=== PATIENT | female | born 1950 | race Caucasian/White ===

== ENCOUNTER 2019-12-01 12:37 | Outpatient (CLI) | payer MEDICARE, SELFPAY ==
[2019-12-01 13:28] LABS: Basophils Absolute Auto 0.1 K/mm3 (0.0-0.1); Basophils Percent Auto 2.1 % (0.2-1.2); Eosinophils Absolute Auto 0.2 K/mm3 (0-0.3); Eosinophils Percent Auto 5.3 % (0-4.4); Hematocrit 40.9 % (37.0-47.0); Hemoglobin 12.6 g/dL (12.0-15.0); Immature Granulocyte Absolute 0.02 K/mm3 (0.00-0.031); Immature Granulocyte Percent A 0.5 % (0-0.5); Lymphocytes Absolute Auto 1.54 K/mm3 (0.9-3.2); Lymphocytes Percent Auto 35.5 % (18.3-44.2); Mean Corpuscular HGB Conc 30.8 g/dl (32-36); Mean Corpuscular Hemoglobin 29.2 pg (26-34); Mean Corpuscular Volume 94.9 fl (80-100); Mean Platelet Volume 10.2 fl (7.4-10.4); Monocytes Absolute Auto 0.5 K/mm3 (0.1-0.6); Monocytes Percent Auto 10.6 % (2.6-8.5); Platelet Count Result 211 k/mm3 (150-375); Red Blood Count 4.31 M/mm3 (4.2-5.4); Red Cell Distribution Width 15.7 % (11.5-14.5); White Blood Count 4.3 K/mm3 (4.5-10.0)
[2019-12-01 13:40] LABS: Potassium 3.3 mmol/L (3.4-5.0)
[2019-12-01 13:49] LABS: Alanine Aminotransferase 43 U/L (4-35); Albumin Level 3.9 g/dL (3.5-5.1); Alkaline Phosphatase 88 U/L (38-126); Aspartate Amino Transferase 49 U/L (14-36); Bilirubin,Total 0.6 mg/dL (0.2-1.3); Blood Urea Nitrogen 26 mg/dL (7-17); CRP < 0.5 mg/dL (<1.0); Calcium 9.1 mg/dL (8.4-10.2); Carbon Dioxide 33 mmol/L (22-30); Chloride 100 mmol/L (98-107); Complement C3 104 mg/dL (88-165); Estimated Glomerular Filt Rate > 60; Glucose 94 mg/dL (65-105); Sodium 137 mmol/L (137-145)
[2019-12-01 14:15] LABS: Erythrocyte Sedimentation Rate 18 mm/hr (0-20)
[2019-12-02 13:09] LABS: Add Urine Microscopic? NO; Appearance Urine Clear (Clear); Bilirubin Urine Negative (Negative); Blood Urine Negative (Negative); Color Urine Straw (Yellow); Glucose Urine UA Negative (Negative); Ketones Urine Negative (Negative); Leukocyte Esterase Ur Negative LEU/UL (Negative); Nitrate Urine Negative (Negative); Protein Urine Negative (Negative); Urobilinogen Urine Negative mg/dL (<2.0)
== END 2019-12-01 12:38 | disposition home or self-care (01) ==
LOC: ANHLAB 12:41
DX: M06.09 Rheumatoid arthritis without rheumatoid factor, multiple sites (principal)
CPT/HCPCS: 36415; 80053; 81003; 85025; 85652; 86140; 86160; 86225

== ENCOUNTER 2019-12-17 09:48 | Outpatient (CLI) | payer MEDICARE, SELFPAY ==
[2019-12-17 10:49] LABS: Alanine Aminotransferase 29 U/L (4-35); Albumin Level 3.8 g/dL (3.5-5.1); Alkaline Phosphatase 99 U/L (38-126); Aspartate Amino Transferase 42 U/L (14-36); Bilirubin,Total 0.5 mg/dL (0.2-1.3); Blood Urea Nitrogen 22 mg/dL (7-17); Calcium 9.1 mg/dL (8.4-10.2); Carbon Dioxide 35 mmol/L (22-30); Chloride 102 mmol/L (98-107); Estimated Glomerular Filt Rate > 60; Glucose 98 mg/dL (65-105); Potassium 3.5 mmol/L (3.4-5.0); Sodium 138 mmol/L (137-145)
== END 2019-12-17 09:49 | disposition home or self-care (01) ==
DX: R94.5 Abnormal results of liver function studies (principal)
CPT/HCPCS: 36415; 80053

== ENCOUNTER → 2020-09-08 10:06 | Outpatient (CLI) | payer MEDICARE, SELFPAY ==
--- NOTE | ~2020-09-08 | MM_ITS ---
EXAMINATION: MM screening [facility] BI w juana HISTORY: Screening mammogram TECHNIQUE: Craniocaudal and mediolateral oblique 3-D tomosynthesis images were obtained and synthetic 2-D images were generated. CAD analysis was submitted and interpreted. COMPARISON: 10/18/2010, 09/16/2009, 08/05/2008 BREAST PARENCHYMAL COMPOSITION: There are scattered areas of fibroglandular density. FINDINGS: There is no evidence of suspicious mass, calcification, or architectural distortion to sugg est malignancy in either breast. There has been no suspicious interval change. IMPRESSION: 1. No mammographic evidence of malignancy. 2. Recommend routine screening mammography in one year. BI-RADS Category 1: Negative Reviewed, dictated and finalized at location A. DESIGNER
== END ==
DX: Z12.31 Encounter for screening mammogram for malignant neoplasm of breast (principal)
CPT/HCPCS: 77063; 77067

== ENCOUNTER 2020-11-28 14:42 | Outpatient (CLI) | payer MEDICARE, SELFPAY ==
--- NOTE | ~2020-11-28 | XR_ITS ---
EXAMINATION: XR chest 2V 11/28/2020 14:58 INDICATION: Shortness of breath PROCEDURE: 2 view chest COMPARISON: Comparison to multiple prior studies sequentially, with oldest reviewed study dated 09/13. FINDINGS: The lungs are clear. The cardiomediastinal silhouette is within normal limits. There are no pleural effusions. There is no pneumothorax suspected. IMPRESSION: 1: NO ACUTE CARDIOPULMONARY DISEASE. Reviewed, dictated and finalized at location B.
== END 2020-11-28 14:43 | disposition home or self-care (01) ==
DX: R06.02 Shortness of breath (principal); Q21.1 Atrial septal defect
CPT/HCPCS: 71046

== ENCOUNTER 2020-11-30 10:11 | Outpatient (CLI) | payer MEDICARE, SELFPAY ==
[2020-11-30 10:45] LABS: Basophils Absolute Auto 0.1 K/mm3 (0.0-0.1); Eosinophils Absolute Auto 0.1 K/mm3 (0-0.3); Eosinophils Percent Auto 2.7 % (0-4.4); Hematocrit 42.6 % (37.0-47.0); Hemoglobin 13.8 g/dL (12.0-15.0); Immature Granulocyte Absolute 0.01 K/mm3 (0.00-0.031); Immature Granulocyte Percent A 0.2 % (0-0.5); Lymphocytes Absolute Auto 1.37 K/mm3 (0.9-3.2); Lymphocytes Percent Auto 28.7 % (18.3-44.2); Mean Corpuscular HGB Conc 32.4 g/dl (32-36); Mean Corpuscular Hemoglobin 29.3 pg (26-34); Mean Corpuscular Volume 90.4 fl (80-100); Mean Platelet Volume 9.5 fl (7.4-10.4); Monocytes Absolute Auto 0.5 K/mm3 (0.1-0.6); Monocytes Percent Auto 10.7 % (2.6-8.5); Neutrophils Absolute Auto 2.7 K/mm3 (1.3-6.7); Neutrophils Percent Auto 56.7 % (45.5-73.1); Platelet Count Result 253 k/mm3 (150-375); Red Blood Count 4.71 M/mm3 (4.2-5.4); Red Cell Distribution Width 14.4 % (11.5-14.5); White Blood Count 4.8 K/mm3 (4.5-10.0)
[2020-11-30 11:09] LABS: Alanine Aminotransferase 30 U/L (4-35); Albumin Level 4.1 g/dL (3.5-5.1); Alkaline Phosphatase 98 U/L (38-126); Anion Gap 4 mmol/L (8-16); Aspartate Amino Transferase 38 U/L (14-36); Bilirubin,Total 0.4 mg/dL (0.2-1.3); Blood Urea Nitrogen 25 mg/dL (7-17); Carbon Dioxide 33 mmol/L (22-30); Chloride 103 mmol/L (98-107); Estimated Glomerular Filt Rate > 60; Glucose 113 mg/dL (65-105); Potassium 3.8 mmol/L (3.4-5.0); Sodium 140 mmol/L (137-145)
[2020-11-30 11:18] LABS: NT Pro B Type Natriuretic Pept 63 PG/ML (5-100)
== END 2020-11-30 10:12 | disposition home or self-care (01) ==
PROVIDERS: Visit Provider Internal Medicine Interventional Cardiology
DX: I48.0 Paroxysmal atrial fibrillation (principal); I25.10 Atherosclerotic heart disease of native coronary artery without angina pectoris; R06.02 Shortness of breath
CPT/HCPCS: 36415; 80053; 83880; 85025

== ENCOUNTER 2020-12-01 11:36 | Outpatient (CLI) | payer MEDICARE, SELFPAY ==
[2020-12-01 12:19] LABS: Alanine Aminotransferase 30 U/L (4-35); Alkaline Phosphatase 162 U/L (38-126); Anion Gap 3 mmol/L (8-16); Aspartate Amino Transferase 39 U/L (14-36); Bilirubin,Total 0.4 mg/dL (0.2-1.3); Blood Urea Nitrogen 34 mg/dL (7-17); Calcium 9.1 mg/dL (8.4-10.2); Carbon Dioxide 32 mmol/L (22-30); Chloride 105 mmol/L (98-107); Estimated Glomerular Filt Rate > 60; Glucose 123 mg/dL (65-105); Potassium 3.9 mmol/L (3.4-5.0); Sodium 140 mmol/L (137-145)
== END 2020-12-01 11:37 | disposition home or self-care (01) ==
LOC: ANHLAB 11:41
PROVIDERS: Visit Provider Internal Medicine Rheumatology
DX: R74.01 Elevation of levels of liver transaminase levels (principal); Z79.899 Other long term (current) drug therapy
CPT/HCPCS: 36415; 80053

== ENCOUNTER 2021-05-23 13:38 | Outpatient (CLI) | payer MEDICARE, SELFPAY ==
[2021-05-23 14:22] LABS: Add Urine Microscopic? YES; Appearance Urine Clear (Clear); Bilirubin Urine Negative (Negative); Blood Urine 1+ (Negative); Color Urine Yellow (Yellow); Glucose Urine UA Negative (Negative); Ketones Urine Negative (Negative); Leukocyte Esterase Ur Negative LEU/UL (Negative); Mucus Urine Rare /lpf; Nitrate Urine Negative (Negative); Protein Urine Negative (Negative); Specific Grav Ur 1.012 (1.001-1.035); Squamous Epithelial Cell Urine Rare /hpf (Few); Urobilinogen Urine Negative mg/dL (<2.0); WBC Urine 0-3 /hpf
== END 2021-05-23 13:39 | disposition home or self-care (01) ==
LOC: ANHLAB 13:47
PROVIDERS: Visit Provider Internal Medicine Rheumatology
DX: R82.90 Unspecified abnormal findings in urine (principal)
CPT/HCPCS: 81001

== ENCOUNTER 2021-09-11 13:01 | Outpatient (RCR) | payer MEDICARE, SELFPAY ==
[2021-09-11] MEDS: diphenhydrAMINE HCl CAP 25 MG CAPSULE PO (15:27)
[2021-09-11] MEDS: FAMOTIDINE 20 MG TABLET PO (15:27)
[2021-09-11] MEDS: ACETAMINOPHEN 325 MG TABLET 650 MG PO (15:27)
[2021-09-11 15:29] VITALS: BP 107/54; PULSE 77; RESP 18; TEMP 37.8; O2SAT 97
[2021-09-11 16:55] VITALS: BP 119/55
== END 2021-09-11 17:00 ==
LOC: AMCINF 13:01
PROVIDERS: PCP Internal Medicine; Visit Provider Internal Medicine Hematology & Oncology
DX: U07.1 COVID-19 (principal); I10 Essential (primary) hypertension; I25.10 Atherosclerotic heart disease of native coronary artery without angina pectoris; Z79.899 Other long term (current) drug therapy
CPT/HCPCS: A9270; M0247; Q0247

== ENCOUNTER → 2021-12-11 16:29 | Outpatient (CLI) | payer MEDICARE, SELFPAY ==
--- NOTE | ~2021-12-11 | MM_ITS ---
EXAMINATION: MM screening [facility] BI w juana HISTORY: Screening mammogram TECHNIQUE: Craniocaudal and mediolateral oblique 3-D tomosynthesis images were obtained and synthetic 2-D images were generated. CAD analysis was submitted and interpreted. COMPARISON: 09/08/2020, 10/18/2010 bilateral screening mammogram examinations BREAST PARENCHYMAL COMPOSITION: There are scattered areas of fibroglandular density. FINDINGS: Occasional benign calcifications. There is no evidence of suspicious mass, calcification, o r architectural distortion to suggest malignancy in either breast. There has been no suspicious inter kasia change. IMPRESSION: 1. No mammographic evidence of malignancy. 2. Recommend routine screening mammography in one year. BI-RADS Category 1: Negative Reviewed, dictated and finalized at location A.
== END ==
DX: Z12.31 Encounter for screening mammogram for malignant neoplasm of breast (principal)
CPT/HCPCS: 77063; 77067

== ENCOUNTER 2022-07-17 11:38 | Outpatient (CLI) | payer MEDICARE, SELFPAY ==
[2022-07-17 12:16] LABS: Alanine Aminotransferase 38 U/L (6-35); Albumin Level 4.2 g/dL (3.5-5.1); Alkaline Phosphatase 73 U/L (38-126); Anion Gap 11 mmol/L (8-16); Aspartate Amino Transferase 59 U/L (14-36); Bilirubin,Total 0.5 mg/dL (0.2-1.3); Blood Urea Nitrogen 15 mg/dL (7-17); Calcium 8.9 mg/dL (8.4-10.2); Carbon Dioxide 30 mmol/L (22-30); Chloride 100 mmol/L (98-107); Estimated Glomerular Filt Rate > 60; Glucose 108 mg/dL (65-110); Sodium 141 mmol/L (137-145)
== END 2022-07-17 11:39 | disposition home or self-care (01) ==
PROVIDERS: Visit Provider Nurse Practitioner
DX: R74.01 Elevation of levels of liver transaminase levels (principal)
CPT/HCPCS: 36415; 80053

== ENCOUNTER 2022-09-11 13:41 | Outpatient (CLI) | payer MEDICARE, SELFPAY | END 2022-09-11 13:42 | disposition home or self-care (01) | LOC: ANHLAB 13:46 | DX: R20.0 Anesthesia of skin (principal); R20.2 Paresthesia of skin | CPT/HCPCS: 86335 ==

== ENCOUNTER 2022-10-17 08:23 | Outpatient (CLI) | payer MEDICARE, SELFPAY ==
[2022-10-17 09:18] LABS: Anion Gap 5 mmol/L (8-16); Blood Urea Nitrogen 17 mg/dL (7-17); Calcium 8.4 mg/dL (8.4-10.2); Carbon Dioxide 30 mmol/L (22-30); Chloride 104 mmol/L (98-107); Estimated Glomerular Filt Rate > 60; Glucose 98 mg/dL (65-110); Sodium 139 mmol/L (137-145)
[2022-10-17 09:24] LABS: NT Pro B Type Natriuretic Pept 100 pg/mL (19.9-100)
== END 2022-10-17 08:24 | disposition home or self-care (01) ==
LOC: ANHLAB 08:26
PROVIDERS: PCP Student in an Organized Health Care Education/Training Program; Visit Provider Internal Medicine Interventional Cardiology
DX: I25.10 Atherosclerotic heart disease of native coronary artery without angina pectoris (principal); R06.02 Shortness of breath; R60.9 Edema, unspecified
CPT/HCPCS: 36415; 80048; 83880

== ENCOUNTER → 2022-12-20 13:51 | Outpatient (CLI) | payer MEDICARE, SELFPAY ==
--- NOTE | ~2022-12-20 | MM_ITS ---
EXAMINATION: MM screening [facility] BI w juana HISTORY: Screening mammogram TECHNIQUE: Craniocaudal and mediolateral oblique 3-D tomosynthesis images were obtained and synthetic 2-D images were generated. CAD analysis was submitted and interpreted. COMPARISON: 12/11/2021, 09/08/2020, 10/18/2010 BREAST PARENCHYMAL COMPOSITION: There are scattered areas of fibroglandular density. FINDINGS: No suspicious mass, calcification, or architectural distortion are identified in either erlinda ast to suggest malignancy. There has been no suspicious interval change. IMPRESSION: 1. No mammographic evidence of malignancy. 2. Recommend routine screening mammography in one year. BI-RADS Category 1: Negative Reviewed, dictated and finalized at location A.
== END ==
PROVIDERS: PCP Family Medicine; Visit Provider Family Medicine
DX: Z12.31 Encounter for screening mammogram for malignant neoplasm of breast (principal)
CPT/HCPCS: 77063; 77067

== ENCOUNTER 2023-01-30 09:37 | Outpatient (CLI) | payer MEDICARE, SELFPAY ==
[2023-01-30 10:25] LABS: Basophils Absolute Auto 0.1 K/mm3 (0.0-0.1); Basophils Percent Auto 1.2 % (0.2-1.2); Eosinophils Absolute Auto 0.5 K/mm3 (0-0.3); Eosinophils Percent Auto 9.8 % (0-4.4); Hematocrit 42.3 % (37.0-47.0); Hemoglobin 13.1 g/dL (12.0-15.0); Lymphocytes Absolute Auto 1.44 K/mm3 (0.9-3.2); Lymphocytes Percent Auto 29.3 % (18.3-44.2); Mean Corpuscular Hemoglobin 28.3 pg (26-34); Mean Corpuscular Volume 91.4 fl (80-100); Mean Platelet Volume 9.7 fl (7.4-10.4); Monocytes Absolute Auto 0.6 K/mm3 (0.1-0.6); Monocytes Percent Auto 11.6 % (2.6-8.5); Neutrophils Absolute Auto 2.4 K/mm3 (1.3-6.7); Neutrophils Percent Auto 48.1 % (45.5-73.1); Platelet Count Result 232 k/mm3 (150-375); Red Blood Count 4.63 M/mm3 (4.2-5.4); Red Cell Distribution Width 15.7 % (11.5-14.5); White Blood Count 4.9 K/mm3 (4.5-10.0)
[2023-01-30 10:32] LABS: Appearance Urine Clear (Clear); Bacteria Urine None Seen /hpf; Bilirubin Urine Negative (Negative); Blood Urine Negative (Negative); Color Urine Yellow (Yellow); Glucose Urine UA Negative (Negative); Ketones Urine Negative (Negative); Leukocyte Esterase Ur Trace LEU/UL (Negative); Nitrate Urine Negative (Negative); Non Pathogenic Casts 0-2; Protein Urine Negative (Negative); RBC Urine 0-2 /hpf (0-2); Specific Grav Ur 1.012 (1.001-1.035); Squamous Epithelial Cell Urine None seen /hpf (Few); Urobilinogen Urine 0.2 mg/dL (<2.0); WBC Urine 0-5 /hpf; pH Urine 6.5 (5.0-9.0)
[2023-01-30 10:41] LABS: Alanine Aminotransferase 37 U/L (6-35); Albumin Level 4.2 g/dL (3.5-5.1); Alkaline Phosphatase 102 U/L (38-126); Anion Gap 2 mmol/L (8-16); Aspartate Amino Transferase 45 U/L (14-36); Bilirubin,Total 0.8 mg/dL (0.2-1.3); Blood Urea Nitrogen 16 mg/dL (7-17); CRP < 0.5 mg/dL (<1.0); Calcium 8.8 mg/dL (8.4-10.2); Carbon Dioxide 35 mmol/L (22-30); Chloride 102 mmol/L (98-107); Estimated Glomerular Filt Rate > 60; Glucose 89 mg/dL (65-110); Potassium 4.3 mmol/L (3.4-5.0); Sodium 139 mmol/L (137-145)
[2023-01-30 10:48] LABS: Complement C3 82 mg/dL (88-165)
[2023-01-30 10:51] LABS: Add Urine Microscopic? YES
[2023-01-30 11:04] LABS: Erythrocyte Sedimentation Rate 14 mm/hr (0-20)
== END 2023-01-30 09:38 | disposition home or self-care (01) ==
PROVIDERS: PCP Family Medicine; Referring Provider Family Medicine; Visit Provider Nurse Practitioner
DX: M32.9 Systemic lupus erythematosus, unspecified (principal)
CPT/HCPCS: 36415; 80053; 81001; 85025; 85652; 86140; 86160; 86225

== ENCOUNTER 2023-04-29 10:35 | Outpatient (CLI) | payer MEDICARE, SELFPAY ==
[2023-04-29 12:10] LABS: Basophils Absolute Auto 0.1 K/mm3 (0.0-0.1); Basophils Percent Auto 1.1 % (0.2-1.2); Eosinophils Absolute Auto 0.3 K/mm3 (0-0.3); Eosinophils Percent Auto 5.4 % (0-4.4); Hematocrit 43.9 % (37.0-47.0); Hemoglobin 13.8 g/dL (12.0-15.0); Immature Granulocyte Absolute 0.01 K/mm3 (0.00-0.031); Immature Granulocyte Percent A 0.2 % (0-0.5); Lymphocytes Absolute Auto 1.93 K/mm3 (0.9-3.2); Lymphocytes Percent Auto 30.5 % (18.3-44.2); Mean Corpuscular HGB Conc 31.4 g/dl (32-36); Mean Corpuscular Hemoglobin 28.5 pg (26-34); Mean Corpuscular Volume 90.7 fl (80-100); Mean Platelet Volume 9.6 fl (7.4-10.4); Monocytes Absolute Auto 0.9 K/mm3 (0.1-0.6); Monocytes Percent Auto 14.6 % (2.6-8.5); Neutrophils Absolute Auto 3.1 K/mm3 (1.3-6.7); Neutrophils Percent Auto 48.2 % (45.5-73.1); Platelet Count Result 234 k/mm3 (150-375); Red Blood Count 4.84 M/mm3 (4.2-5.4); Red Cell Distribution Width 15.8 % (11.5-14.5); White Blood Count 6.3 K/mm3 (4.5-10.0)
[2023-04-29 12:31] LABS: Complement C3 91 mg/dL (88-165)
[2023-04-29 12:37] LABS: Alanine Aminotransferase 33 U/L (6-35); Albumin Level 4.3 g/dL (3.5-5.1); Alkaline Phosphatase 119 U/L (38-126); Anion Gap 3 mmol/L (8-16); Aspartate Amino Transferase 39 U/L (14-36); Bilirubin,Total 0.7 mg/dL (0.2-1.3); Blood Urea Nitrogen 25 mg/dL (7-17); CRP < 0.5 mg/dL (<1.0); Calcium 9.1 mg/dL (8.4-10.2); Carbon Dioxide 32 mmol/L (22-30); Chloride 101 mmol/L (98-107); Estimated Glomerular Filt Rate > 60; Glucose 93 mg/dL (65-110); Potassium 4.1 mmol/L (3.4-5.0); Sodium 136 mmol/L (137-145)
[2023-04-29 12:46] LABS: Erythrocyte Sedimentation Rate 13 mm/hr (0-20)
== END 2023-04-29 10:36 | disposition home or self-care (01) ==
PROVIDERS: PCP Family Medicine; Visit Provider Nurse Practitioner
DX: M32.9 Systemic lupus erythematosus, unspecified (principal)
CPT/HCPCS: 36415; 80053; 85025; 85652; 86140; 86160; 86225

== ENCOUNTER 2023-05-17 09:29 | Outpatient (CLI) | payer MEDICARE, SELFPAY ==
[2023-05-17 10:14] LABS: Alanine Aminotransferase 27 U/L (6-35); Alkaline Phosphatase 100 U/L (38-126); Anion Gap 4 mmol/L (8-16); Aspartate Amino Transferase 37 U/L (14-36); Bilirubin,Total 0.7 mg/dL (0.2-1.3); Blood Urea Nitrogen 26 mg/dL (7-17); Calcium 8.9 mg/dL (8.4-10.2); Carbon Dioxide 33 mmol/L (22-30); Chloride 101 mmol/L (98-107); Estimated Glomerular Filt Rate > 60; Glucose 104 mg/dL (65-110); Potassium 3.6 mmol/L (3.4-5.0); Sodium 138 mmol/L (137-145)
== END 2023-05-17 09:30 | disposition home or self-care (01) ==
PROVIDERS: PCP Family Medicine; Visit Provider Nurse Practitioner
DX: R74.8 Abnormal levels of other serum enzymes (principal)
CPT/HCPCS: 36415; 80053

== ENCOUNTER 2023-07-04 15:20 | Outpatient (CLI) | payer MEDICARE, SELFPAY ==
[2023-07-04 15:58] LABS: Anion Gap 5 mmol/L (8-16); Blood Urea Nitrogen 28 mg/dL (7-17); Calcium 8.9 mg/dL (8.4-10.2); Carbon Dioxide 28 mmol/L (22-30); Chloride 102 mmol/L (98-107); Estimated Glomerular Filt Rate > 60; Glucose 96 mg/dL (65-110); Potassium 3.7 mmol/L (3.4-5.0); Sodium 135 mmol/L (137-145)
== END 2023-07-04 15:21 | disposition home or self-care (01) ==
PROVIDERS: PCP Family Medicine; Visit Provider Internal Medicine Interventional Cardiology
DX: I48.0 Paroxysmal atrial fibrillation (principal)
CPT/HCPCS: 36415; 80048

== ENCOUNTER 2023-08-02 08:06 | Outpatient (CLI) | payer MEDICARE, SELFPAY ==
[2023-08-02 09:25] LABS: Basophils Absolute Auto 0.1 K/mm3 (0.0-0.1); Eosinophils Absolute Auto 0.3 K/mm3 (0-0.3); Hematocrit 44.9 % (37.0-47.0); Immature Granulocyte Absolute 0.01 K/mm3 (0.00-0.031); Immature Granulocyte Percent A 0.2 % (0-0.5); Lymphocytes Absolute Auto 1.58 K/mm3 (0.9-3.2); Lymphocytes Percent Auto 30.7 % (18.3-44.2); Mean Corpuscular HGB Conc 31.2 g/dl (32-36); Mean Corpuscular Hemoglobin 28.7 pg (26-34); Mean Corpuscular Volume 92.2 fl (80-100); Mean Platelet Volume 9.7 fl (7.4-10.4); Monocytes Absolute Auto 0.6 K/mm3 (0.1-0.6); Monocytes Percent Auto 11.7 % (2.6-8.5); Neutrophils Absolute Auto 2.6 K/mm3 (1.3-6.7); Neutrophils Percent Auto 50.4 % (45.5-73.1); Platelet Count Result 224 k/mm3 (150-375); Red Blood Count 4.87 M/mm3 (4.2-5.4); White Blood Count 5.1 K/mm3 (4.5-10.0)
[2023-08-02 09:37] LABS: Complement C3 85 mg/dL (88-165)
[2023-08-02 09:41] LABS: Alanine Aminotransferase 39 U/L (6-35); Albumin Level 4.1 g/dL (3.5-5.1); Alkaline Phosphatase 98 U/L (38-126); Anion Gap 10 mmol/L (8-16); Aspartate Amino Transferase 54 U/L (14-36); Bilirubin,Total 0.9 mg/dL (0.2-1.3); Blood Urea Nitrogen 16 mg/dL (7-17); CRP < 0.5 mg/dL (<1.0); Carbon Dioxide 27 mmol/L (22-30); Chloride 104 mmol/L (98-107); Estimated Glomerular Filt Rate > 60; Glucose 93 mg/dL (65-110); Potassium 4.3 mmol/L (3.4-5.0); Sodium 141 mmol/L (137-145)
[2023-08-02 10:33] LABS: Erythrocyte Sedimentation Rate 15 mm/hr (0-20)
== END 2023-08-02 08:07 | disposition home or self-care (01) ==
PROVIDERS: PCP Family Medicine; Visit Provider Nurse Practitioner
DX: M32.9 Systemic lupus erythematosus, unspecified (principal)
CPT/HCPCS: 36415; 80053; 85025; 85652; 86140; 86160; 86225

== ENCOUNTER 2023-08-16 08:00 | Outpatient (CLI) | payer MEDICARE, SELFPAY ==
[2023-08-16 09:03] LABS: Alanine Aminotransferase 33 U/L (6-35); Albumin Level 4.3 g/dL (3.5-5.1); Alkaline Phosphatase 93 U/L (38-126); Anion Gap 4 mmol/L (8-16); Aspartate Amino Transferase 38 U/L (14-36); Bilirubin,Total 0.7 mg/dL (0.2-1.3); Blood Urea Nitrogen 18 mg/dL (7-17); Calcium 9.2 mg/dL (8.4-10.2); Carbon Dioxide 33 mmol/L (22-30); Chloride 103 mmol/L (98-107); Estimated Glomerular Filt Rate > 60; Glucose 97 mg/dL (65-110); Potassium 4.3 mmol/L (3.4-5.0); Sodium 140 mmol/L (137-145)
== END 2023-08-16 08:01 | disposition home or self-care (01) ==
PROVIDERS: PCP Family Medicine; Visit Provider Nurse Practitioner
DX: I48.0 Paroxysmal atrial fibrillation (principal); R74.01 Elevation of levels of liver transaminase levels
CPT/HCPCS: 36415; 80053

== ENCOUNTER 2023-10-29 14:58 | Outpatient (CLI) | payer MEDICARE, SELFPAY ==
[2023-10-29 15:39] LABS: Basophils Percent Auto 0.6 % (0.2-1.2); Eosinophils Absolute Auto 0.3 K/mm3 (0-0.3); Eosinophils Percent Auto 4.8 % (0-4.4); Hematocrit 43.1 % (37.0-47.0); Hemoglobin 13.1 g/dL (12.0-15.0); Immature Granulocyte Absolute 0.01 K/mm3 (0.00-0.031); Immature Granulocyte Percent A 0.2 % (0-0.5); Lymphocytes Absolute Auto 1.75 K/mm3 (0.9-3.2); Lymphocytes Percent Auto 27.9 % (18.3-44.2); Mean Corpuscular HGB Conc 30.4 g/dl (32-36); Mean Corpuscular Hemoglobin 28.2 pg (26-34); Mean Corpuscular Volume 92.9 fl (80-100); Mean Platelet Volume 9.9 fl (7.4-10.4); Monocytes Absolute Auto 0.8 K/mm3 (0.1-0.6); Monocytes Percent Auto 12.9 % (2.6-8.5); Neutrophils Absolute Auto 3.4 K/mm3 (1.3-6.7); Neutrophils Percent Auto 53.6 % (45.5-73.1); Platelet Count Result 239 k/mm3 (150-375); Red Blood Count 4.64 M/mm3 (4.2-5.4); Red Cell Distribution Width 15.6 % (11.5-14.5); White Blood Count 6.3 K/mm3 (4.5-10.0)
[2023-10-29 15:48] LABS: Appearance Urine Clear (Clear); Bacteria Urine None Seen /hpf; Bilirubin Urine Negative (Negative); Color Urine Yellow (Yellow); Glucose Urine UA 3+ mg/dL (Negative); Ketones Urine Negative (Negative); Leukocyte Esterase Ur Negative LEU/UL (Negative); Nitrate Urine Negative (Negative); Non Pathogenic Casts 0-2; Protein Urine Negative (Negative); Specific Grav Ur 1.035 (1.001-1.035); Squamous Epithelial Cell Urine None seen /hpf (Few); WBC Urine 0-5 /hpf
[2023-10-29 15:52] LABS: Add Urine Microscopic? YES
[2023-10-29 15:53] LABS: Alanine Aminotransferase 33 U/L (6-35); Albumin Level 3.9 g/dL (3.5-5.1); Alkaline Phosphatase 104 U/L (38-126); Anion Gap 4 mmol/L (8-16); Aspartate Amino Transferase 41 U/L (14-36); Bilirubin,Total 0.5 mg/dL (0.2-1.3); Blood Urea Nitrogen 17 mg/dL (7-17); CRP < 0.5 mg/dL (<1.0); Carbon Dioxide 29 mmol/L (22-30); Chloride 105 mmol/L (98-107); Estimated Glomerular Filt Rate > 60; Glucose 106 mg/dL (65-110); Potassium 4.2 mmol/L (3.4-5.0); Sodium 138 mmol/L (137-145)
[2023-10-29 15:59] LABS: Complement C3 88 mg/dL (88-165)
[2023-10-29 16:36] LABS: Erythrocyte Sedimentation Rate 14 mm/hr (0-20)
== END 2023-10-29 14:59 | disposition home or self-care (01) ==
LOC: ANHLAB 15:08
PROVIDERS: PCP Family Medicine; Visit Provider Nurse Practitioner
DX: M32.9 Systemic lupus erythematosus, unspecified (principal)
CPT/HCPCS: 36415; 80053; 81001; 85025; 85652; 86140; 86160

== ENCOUNTER 2023-10-30 07:41 | Outpatient (CLI) | payer MEDICARE, SELFPAY | END 2023-10-30 07:42 | disposition home or self-care (01) | LOC: ANHLAB 07:49 | PROVIDERS: PCP Family Medicine; Visit Provider Nurse Practitioner | DX: M32.9 Systemic lupus erythematosus, unspecified (principal) | CPT/HCPCS: 36415; 86225 ==

== ENCOUNTER 2023-11-18 12:06 | Outpatient (CLI) | payer MEDICARE, SELFPAY ==
[2023-11-18 14:13] LABS: Alanine Aminotransferase 34 U/L (6-35); Albumin Level 4.3 g/dL (3.5-5.1); Alkaline Phosphatase 100 U/L (38-126); Aspartate Amino Transferase 45 U/L (14-36); Bilirubin,Total 0.7 mg/dL (0.2-1.3)
== END 2023-11-18 12:07 | disposition home or self-care (01) ==
LOC: ANHLAB 12:08
PROVIDERS: PCP Family Medicine; Visit Provider Internal Medicine Interventional Cardiology
DX: E78.49 Other hyperlipidemia (principal)
CPT/HCPCS: 36415; 80076

== ENCOUNTER 2023-12-16 09:21 | Outpatient (CLI) | payer MEDICARE, SELFPAY ==
[2023-12-23 14:58] LABS: GGT 10 U/L
== END 2023-12-16 09:22 | disposition home or self-care (01) ==
LOC: ANHLAB 09:23
PROVIDERS: PCP Family Medicine; Visit Provider Internal Medicine Interventional Cardiology
DX: R74.01 Elevation of levels of liver transaminase levels (principal); R79.89 Other specified abnormal findings of blood chemistry
CPT/HCPCS: 36415; 82977

== ENCOUNTER 2024-02-11 14:21 | Outpatient (CLI) | payer MEDICARE, SELFPAY ==
[2024-02-11 15:06] LABS: Basophils Absolute Auto 0.1 K/mm3 (0.0-0.1); Basophils Percent Auto 0.9 % (0.2-1.2); Eosinophils Absolute Auto 0.4 K/mm3 (0-0.3); Eosinophils Percent Auto 5.9 % (0-4.4); Hematocrit 44.1 % (37.0-47.0); Hemoglobin 13.6 g/dL (12.0-15.0); Immature Granulocyte Absolute 0.01 K/mm3 (0.00-0.031); Immature Granulocyte Percent A 0.2 % (0-0.5); Lymphocytes Absolute Auto 2.02 K/mm3 (0.9-3.2); Lymphocytes Percent Auto 30.6 % (18.3-44.2); Mean Corpuscular HGB Conc 30.8 g/dl (32-36); Mean Corpuscular Volume 90.9 fl (80-100); Mean Platelet Volume 9.4 fl (7.4-10.4); Monocytes Absolute Auto 0.8 K/mm3 (0.1-0.6); Neutrophils Absolute Auto 3.3 K/mm3 (1.3-6.7); Neutrophils Percent Auto 50.4 % (45.5-73.1); Platelet Count Result 255 k/mm3 (150-375); Red Blood Count 4.85 M/mm3 (4.2-5.4); Red Cell Distribution Width 17.9 % (11.5-14.5); White Blood Count 6.6 K/mm3 (4.5-10.0)
[2024-02-11 15:25] LABS: Alanine Aminotransferase 26 U/L (6-35); Albumin Level 4.3 g/dL (3.5-5.1); Alkaline Phosphatase 115 U/L (38-126); Anion Gap 7 mmol/L (4-12); Aspartate Amino Transferase 35 U/L (14-36); Bilirubin,Total 0.7 mg/dL (0.2-1.3); Blood Urea Nitrogen 26 mg/dL (7-17); CRP < 0.5 mg/dL (<1.0); Calcium 8.9 mg/dL (8.4-10.2); Carbon Dioxide 28 mmol/L (22-30); Chloride 104 mmol/L (98-107); Estimated Glomerular Filt Rate > 60; Glucose 91 mg/dL (65-110); Potassium 3.8 mmol/L (3.4-5.0); Sodium 139 mmol/L (137-145)
[2024-02-11 15:31] LABS: Complement C3 97 mg/dL (88-165)
[2024-02-11 15:45] LABS: Erythrocyte Sedimentation Rate 12 mm/hr (0-20)
[2024-02-11 17:20] LABS: Appearance Urine Clear (Clear); Bacteria Urine None Seen /hpf; Bilirubin Urine Negative (Negative); Blood Urine Trace (Negative); Color Urine Yellow (Yellow); Glucose Urine UA 3+ mg/dL (Negative); Ketones Urine Negative (Negative); Leukocyte Esterase Ur Trace LEU/UL (Negative); Nitrate Urine Negative (Negative); Non Pathogenic Casts 0-2; Protein Urine Negative (Negative); RBC Urine 0-2 /hpf (0-2); Specific Grav Ur 1.019 (1.001-1.035); Squamous Epithelial Cell Urine None Seen /hpf (Few); Urobilinogen Urine 0.2 mg/dL (<2.0); WBC Urine 0-5 /hpf (0-3)
[2024-02-11 17:28] LABS: Add Urine Microscopic? YES
== END 2024-02-11 14:22 | disposition home or self-care (01) ==
PROVIDERS: PCP Family Medicine; Visit Provider Nurse Practitioner
DX: M32.9 Systemic lupus erythematosus, unspecified (principal); R30.0 Dysuria
CPT/HCPCS: 36415; 80053; 81001; 85025; 85652; 86140; 86160; 86225

== ENCOUNTER 2024-05-18 12:47 | Outpatient (CLI) | payer MEDICARE, SELFPAY ==
[2024-05-18 14:02] LABS: Basophils Percent Auto 0.7 % (0.2-1.2); Eosinophils Absolute Auto 0.2 K/mm3 (0-0.3); Eosinophils Percent Auto 3.4 % (0-4.4); Hematocrit 42.4 % (37.0-47.0); Hemoglobin 13.4 g/dL (12.0-15.0); Immature Granulocyte Absolute 0.01 K/mm3 (0.00-0.031); Immature Granulocyte Percent A 0.2 % (0-0.5); Lymphocytes Absolute Auto 1.86 K/mm3 (0.9-3.2); Mean Corpuscular HGB Conc 31.6 g/dl (32-36); Mean Corpuscular Hemoglobin 28.7 pg (26-34); Mean Corpuscular Volume 90.8 fl (80-100); Mean Platelet Volume 9.7 fl (7.4-10.4); Monocytes Absolute Auto 0.9 K/mm3 (0.1-0.6); Monocytes Percent Auto 15.6 % (2.6-8.5); Neutrophils Absolute Auto 2.8 K/mm3 (1.3-6.7); Neutrophils Percent Auto 48.1 % (45.5-73.1); Platelet Count Result 217 k/mm3 (150-375); Red Blood Count 4.67 M/mm3 (4.2-5.4); Red Cell Distribution Width 17.2 % (11.5-14.5); White Blood Count 5.8 K/mm3 (4.5-10.0)
[2024-05-18 14:23] LABS: Chloride 97 mmol/L (98-107)
[2024-05-18 14:26] LABS: Potassium 3.8 mmol/L (3.4-5.0)
[2024-05-18 14:30] LABS: Complement C3 78 mg/dL (88-165)
[2024-05-18 14:38] LABS: Alanine Aminotransferase 27 U/L (6-35); Albumin Level 3.9 g/dL (3.5-5.1); Alkaline Phosphatase 88 U/L (38-126); Anion Gap 12 mmol/L (4-12); Aspartate Amino Transferase 37 U/L (14-36); Bilirubin,Total 0.7 mg/dL (0.2-1.3); Blood Urea Nitrogen 21 mg/dL (7-17); CRP < 0.5 mg/dL (<1.0); Calcium 8.8 mg/dL (8.4-10.2); Carbon Dioxide 26 mmol/L (22-30); Estimated Glomerular Filt Rate > 60; Glucose 100 mg/dL (65-110); Sodium 135 mmol/L (137-145)
[2024-05-18 14:42] LABS: Erythrocyte Sedimentation Rate 12 mm/hr (0-20)
== END 2024-05-18 12:48 | disposition home or self-care (01) ==
LOC: ANHLAB 12:50
PROVIDERS: PCP Family Medicine; Visit Provider Nurse Practitioner
DX: M32.9 Systemic lupus erythematosus, unspecified (principal)
CPT/HCPCS: 36415; 80053; 85025; 85652; 86140; 86160; 86225

== ENCOUNTER 2024-08-22 08:43 | Outpatient (CLI) | payer MEDICARE, SELFPAY ==
[2024-08-22 09:48] LABS: Basophils Percent Auto 0.8 % (0.2-1.2); Eosinophils Absolute Auto 0.2 K/mm3 (0-0.3); Eosinophils Percent Auto 3.6 % (0-4.4); Hematocrit 46.5 % (37.0-47.0); Hemoglobin 14.7 g/dL (12.0-15.0); Immature Granulocyte Absolute 0.01 K/mm3 (0.00-0.031); Immature Granulocyte Percent A 0.2 % (0-0.5); Lymphocytes Absolute Auto 1.28 K/mm3 (0.9-3.2); Lymphocytes Percent Auto 25.5 % (18.3-44.2); Mean Corpuscular HGB Conc 31.6 g/dl (32-36); Mean Corpuscular Hemoglobin 28.9 pg (26-34); Mean Corpuscular Volume 91.4 fl (80-100); Monocytes Absolute Auto 0.5 K/mm3 (0.1-0.6); Monocytes Percent Auto 9.4 % (2.6-8.5); Neutrophils Percent Auto 60.5 % (45.5-73.1); Platelet Count Result 223 k/mm3 (150-375); Red Blood Count 5.09 M/mm3 (4.2-5.4); Red Cell Distribution Width 16.1 % (11.5-14.5)
[2024-08-22 10:15] LABS: Alanine Aminotransferase 32 U/L (6-35); Albumin Level 4.3 g/dL (3.5-5.1); Alkaline Phosphatase 91 U/L (38-126); Anion Gap 6 mmol/L (4-12); Aspartate Amino Transferase 42 U/L (14-36); Bilirubin,Total 0.8 mg/dL (0.2-1.3); Blood Urea Nitrogen 19 mg/dL (7-17); CRP < 0.5 mg/dL (<1.0); Calcium 9.4 mg/dL (8.4-10.2); Carbon Dioxide 31 mmol/L (22-30); Chloride 105 mmol/L (98-107); Complement C3 81 mg/dL (88-165); Estimated Glomerular Filt Rate > 60; Glucose 102 mg/dL (65-110); Sodium 142 mmol/L (137-145)
[2024-08-22 10:21] LABS: Erythrocyte Sedimentation Rate 7 mm/hr (0-20)
[2024-08-22 10:42] LABS: Add Urine Microscopic? NO; Appearance Urine Clear (Clear); Bilirubin Urine Negative (Negative); Blood Urine Negative (Negative); Color Urine Yellow (Yellow); Glucose Urine UA 3+ mg/dL (Negative); Ketones Urine Negative (Negative); Leukocyte Esterase Ur Negative LEU/UL (Negative); Nitrate Urine Negative (Negative); Protein Urine Negative (Negative); Specific Grav Ur 1.018 (1.001-1.035); Urobilinogen Urine 0.2 mg/dL (<2.0); pH Urine 5.5 (5.0-9.0)
--- OUTSIDE RECORDS SUMMARY | 2024-08-29 09:50 | XMS_ITS | Encounter Summary ---
Author Organization [facility] Address [address] [place] [address]. [place] [address] [place] [address] Care Team Providers Care Warehouse Shipping Supervisor Name Role Phone Gladis Song MD Unavailable Emily Jordan MD Primary Care Provider + Encounter Details Date Type Department Care Team (Late st Contact Info) Description 06/25/2024 Orders Only [facility] Medical Group Family Medicine - [place] [address] [place] [address] [phone] Emily Jordan MD [address] [place] [id number] Social History Tobacco Use Types Packs/Day Years Used Date Smoking Tobacco: Never Passive Smoke Exposure: Never Smokeless Tobacco: Never Alcohol Use Standard Drinks/Week Comments Not Currently 0 (1 standard drink = 0.6 oz pur e alcohol) occassionally PHQ-2 Answer Date Recorded Patient Health Questionnaire-2 Score 1 06/09/2024 Comments No Sex and Gender Information Value Date Recorded Sex Assigned at Not on file Legal Sex Female 10:22 PM FEEDER WORKER POWER UNIT OPERATOR Gender Identity Female 09/12/2021 9:51 AM FEEDER WORKER POWER UNIT OPERATOR Sexual Orientation Straight 09/12/2021 9: 51 AM FEEDER WORKER POWER UNIT OPERATOR documented as of this encounter Plan of Treatment Upcoming Encounters Date Type Department Care Team (Late st Contact Info) Description 10/02/2024 11:40 AM FEEDER WORKER POWER UNIT OPERATOR Office Visit [facility] Medical [facility] Multispecialty Care - [facility] [address] [place] [address] Johnnie Lr MD [address] [place] [address] 01/04/2025 9:50 AM CDT Office Visit [facility] Family Medicine - [place] [address] [place], [place] [id number] Emily Jordan MD [address] [place], [place] [address] Scheduled Orders Name Type Priority Associated Diagnoses Orde r Schedule POTASSIUM, SERUM Lab Routine Essential hypertension Expected: 06/25/2024, Expires: 06/25/2025 documented as of this encounter Visit Diagnoses Diagnosis Essential hypertension- Primary Unspecified essential hypertension documented in this encounter Additional Health Concerns Assessment Noted Time PHQ-9 Depression Total Score: 1 04/03/20 23 3:30 PM CDT documented as of this encounter Care Teams Warehouse Shipping Supervisor Relationship Specialty Start Date End Date Emily Jordan MD [address] [place], [place] [address] PCP - General FAMILY PRACTICE 06/09/24 [place] [address] [place] [address] RHEUMATOLOGY 09/27/20 documented as of this encounter
--- OUTSIDE RECORDS SUMMARY | 2024-08-29 09:50 | XMS_ITS | Encounter Summary ---
Author Organization [facility] Address [address] [place] [address]. [place], [place] [id number] [place] [address] Care Team Providers Care Spinner Hand Name Role Phone Gladis Song MD Unavailable Thi Lugo MD Primary Care Provider [phone] Encounter Details Date Type Department Care Team (Latest Contact Info) Description 06/01/2024 12:43 PM CDT - 06/01/2024 11:59 PM T Hospital Encounter [facility] [address] [place], [place] [id number] [place] [address] [address] [place] [address] [facility] [address] [place], [place] [id number] Discharge Disposition: Home or Self Care (Routine Discharge) Social History Tobacco Use Types Packs/Day Years Used Date Smoking Tobacco: Never Passive Smoke Exposure: Never Smokeless Tobacco: Never Alcohol Use Standard Drinks/Week Comments Yes 0 (1 standard drink = 0.6 oz pur e alcohol) occassionally PHQ-2 Answer Date Recorded Patient Health Questionnaire-2 Score 0 02/24/2024 Comments No Sex and Gender Information Value Date Recorded Sex Assigned at Not on file Legal Sex Female 10:22 PM HAND SPRING FORMER Gender Identity Female 09/12/2021 9:51 AM HAND SPRING FORMER Sexual Orientation Straight 09/12/2021 9: 51 AM HAND SPRING FORMER documented as of this encounter Medications at Time of Discharge albuterol sulfate HFA 108 (90 Base) MCG/ACT inhalerIndications :Shortness of breath Inhale 2 puffs into the lungs every 4 (four) hours as needed for Wheezing. 18 g 3 03/25/2024 atorvastatin 80 MG tablet TAKE 1 TABLET BY MOUTH EVERY DAY 05/26/2019 brimonidine (ALPHAGAN) 0.2 % ophthalmic solution INSTILL 1 DROP INTO BOTH EYES 3 TIMES A DAY 10/31/2023 Calcium Carbonate Antacid (CALCIUM CARBONATE OR) Take 600 mg by mouth daily. ELIQUIS 5 MG tablet Take 1 tablet (5 mg total) by mouth 2 (two) times daily. 06/22/2022 empagliflozin (JARDIANCE) 10 MG tablet Take 1 tablet (10 mg total) by mouth daily. 06/21/2023 fluticasone furoate-vilanterol (BREO ELLIPTA) 100-25 MCG/ACT inhalerIndications :Mild persistent asthma without complication (HHS/HCC) Inhale 1 puff into the lungs daily. Rinse and spit after use 180 each 3 03/25/2024 isosorbide mononitrate ER (IMDUR) 30 MG 24 hr tabletIndications: Essential hypertension Take 1 tablet (30 mg total) by mouth daily. 30 tablet 10/19/2022 nitroglycerin 0.4 MG SL tablet As needed 05/23/2018 triamcinolone (KENALOG) 0.1 % creamIndications:A llergic dermatitis Apply topically 2 (two) times daily. 15 g 1 11/11/2023 vitamin C 1000 MG tablet Take 1 tablet (1,000 mg total) by mouth daily. vitamin D3, cholecalciferol, 125 mcg capsule 1 capsule (125 mcg total) daily. 11/30/2014 bisoprolol (ZEBETA) 5 MG tablet Take 1 tablet (5 mg total) by mouth daily. 06/12/2022 dicyclomine (BENTYL) 20 MG tablet TAKE 1 TAB EVERY 8 HOURS NEEDED FOR STOMACH CRAMPING. 11/29/2023 4 fluconazole (DIFLUCAN) 150 MG tabletIndications: Acute vaginitis Take 1 tablet now then repeat in 72 hours. 2 tablet 05/22/2024 4 folic acid (FOLVITE) 1 MG tabletIndications: Rheumatoid arthritis without rheumatoid factor, multiple sites ([facility]) TAKE 1 TABLET BY MOUTH EVERY DAY 90 tablet 3 11/27/2022 4 furosemide (LASIX) 20 MG tablet Take 1 tablet (20 mg total) by mouth daily. 06/22/2022 4 hydroCHLOROthiazid e (HYDRODIURIL) 25 MG tablet 4 methotrexate 2.5 MG tablet 08/17/2021 4 metoprolol succinate ER (TOPROL-XL) 50 MG 24 hr tablet 4 montelukast (SINGULAIR) 10 MG tabletIndications: Seasonal allergies take 1 tablet by mouth every day at night 90 tablet 3 03/25/2024 4 pantoprazole EC (PROTONIX) 40 MG tabletIndications: Gastroesophageal reflux disease without esophagitis take 1 tablet by mouth every day 90 tablet 2 02/10/2024 4 PARoxetine (PAXIL) 20 MG tabletIndications: Anxiety state Take 2 tablets (40 mg total) by mouth daily. 180 tablet 3 02/24/2024 4 potassium chloride CR 20 MEQ tablet TAKE 2 TABLETS EVERY MORNING AND 2 TABLETS EVERY EVENING 01/04/2020 4 zoster vaccine (SHINGRIX) (SHINGRIX) injectionIndicatio ns:Need for shingles vaccine Need 2 doses 2-6 months apart 1 each 1 02/24/2024 4 documented as of this encounter Plan of Treatment Upcoming Encounters Date Type Department Care Team (Late st Contact Info) Description 10/02/2024 11:40 AM HAND SPRING FORMER Office Visit [facility] Medical Group Multispecialty Care - [facility] [address] [facility] [place] [address] Johnnie Lr MD [address] [facility] [address] [place] [address] 01/04/2025 9:50 AM CDT Office Visit [facility] Medical Group Family Medicine - [place] [address] [place] [address] Emily Jordan MD [address] [place] [address] documented as of this encounter Procedures Procedure Name Priority Date/Time Associated Diagnosis Comments TSH W/REFLEX Routine 06/01/2024 9:02 AM CDT Tiredness COMPREHENSIVE METABOLIC PANEL Routine 06/01/2024 9:02 AM CDT Tiredness LIPID PANEL Routine 06/01/2024 9:02 AM CDT Encounter for routine history and physical examination of adult CBC W/DIFF AUTOMATED Routine 06/01/2024 9:02 AM CDT Tiredness VITAMIN D, 25 OH Routine 06/01/2024 9:02 AM CDT Tiredness Vitamin D deficiency documented in this encounter Results * (ABNORMAL) COMPREHENSIVE METABOLIC PANEL (06/01/2024 9:02 AM CDT) GLUCOSE 97 70 - 99 MG/DL 06/01/2024 2:43 PM CDT [facility] BUN 21(H) 7 - 18 MG/DL 06/01/2024 2:43 PM CDT [facility] CREATININE S/P/B 0.69 0.55 - 1.02 MG/DL 06/01/2024 2:43 PM CDT [facility] SODIUM S/P/B 143 136 - 145 MMOL/L 06/01/2024 2:43 PM CDT [facility] POTASSIUM S/P/B 4.7 3.5 - 5.1 MMOL/L 06/01/2024 2:43 PM [facility] CHLORIDE S/P/B 107 100 - 108 MMOL/L 06/01/2024 2:43 PM [facility] CO2 28.9 21 - 32 MMOL/L 06/01/2024 2:43 PM [facility] CALCIUM S/P/B 8.9 8.5 - 10.1 MG/DL 06/01/2024 2:43 PM [facility] BILIRUBIN TOTAL S/P/B 0.6 0.2 - 1.2 MG/DL 06/01/2024 2:43 PM [facility] TOTAL PROTEIN S/P/B 6.5 6.4 - 8.2 G/DL 06/01/2024 2:43 PM [facility] ALBUMIN S/P/B 3.4 3.4 - 5.0 G/DL 06/01/2024 2:43 PM [facility] AST 27 15 - 37 U/L 06/01/2024 2:43 PM [facility] ALT 34 14 - 55 U/L 06/01/2024 2:43 PM [facility] ALKALINE PHOSPHATASE S/P/B 84 50 - 136 U/L 06/01/2024 2:43 PM [facility] ANION GAP 7.1 5 - 15 MMOL/L 06/01/2024 2:43 PM [facility] BUN CREATININE RATIO 30.4(H) 6 - 26 06/01/2024 2:43 PM [facility] A/G RATIO 1.1 1.0 - 2.0 RATIO 06/01/2024 2:43 PM [facility] GFR ESTIMATE >90 >90 ML/MIN/1.7 3 M2 06/01/2024 2:43 PM T [facility] Comment: NOTE: eGFR is not calculated for patients <18 years of age. This is an estimated GFR calculation using the new CKD EPI creatinine equation without race and so does not require a correction factor for race. This estimated GFR should not be used for calculating drug doses. 06/01/2024 9:02 AM CDT us Shun Mora MD LABORATORY Final Resul t [facility] [address] [place] [address], * LIPID PANEL (06/01/2024 9:02 AM CDT) CHOLESTEROL 144 <200.0 MG/DL 06/01/2024 2:43 PM T [facility] TRIGLYCERIDES 72 <150 MG/DL 06/01/2024 2:43 PM T [facility] HDL 53 >40.0 MG/DL 06/01/2024 2:43 PM T [facility] LDL (CALCULATED) 77 <100 MG/DL 06/01/20 24 2:43 PM T [facility] NON HDL CHOLESTEROL 91 <130 MG/DL 06/01 2:43 PM T [facility] CHOL/HDL RATIO 2.7 0.0 - 4.5 06/01/2024 2:43 PM T [facility] VLDL CALCULATION 14 5 - 55 MG/DL 06/01/2024 2:43 PM T [facility] LIPID INTERPRETATION 06/01/2024 2:43 PM T [facility] Comment: [facility] REPORT RECOMMENDATIONS: ?ADULT ?CHILD ??LOW RISK: ?CHOLESTEROL ? <200 ? <170 ?TRIGLYCERIDE ?<150 ?--- ?HDL ? >=60 ?--- ?LDL ? <100 ? <110 ??BORDERLINE: ?CHOLESTEROL ? 200-239 ?? 170-199 ?TRIGLYCERIDE ?150-199 ? --- ?HDL ?40-59 ?--- ?LDL ? 100-159 ?? 110-129 ??HIGH RISK: ?CHOLESTEROL ? >=240 ?>=200 ?TRIGLYCERIDE ?>=200 ? --- ?HDL ?<40 ?--- ?LDL ? >=160 ?>=130 06/01/2024 9:02 AM CDT us Shun Mora MD LABORATORY Final Resul t [facility] () [facility] [address] [place] [address], * TSH W/REFLEX (06/01/2024 9:02 AM CDT) TSH 1.969 0.358 - 3.74 uIU/ML 06/01/2024 2:43 PM CDT [facility] Comment: HIGH DOSES OF BIOTIN MAY INTERFERE WITH THIS TEST RESULT. CORRELATION TO CLINICAL HISTORY AND PRESENTATION RECOMMENDED. FREE T4 NOT INDICATED 06/01/2024 9:02 AM CDT us Shun Mora MD LABORATORY Final Resul t [facility] [address] [place] [address], * (ABNORMAL) CBC W/DIFF AUTOMATED (06/01/2024 9:02 AM CDT) WBC 4.88 4.4 - 11.0 x10'3/uL 06/01/2024 1:37 PM CDT [facility] RBC 4.76 4.50 - 5.10 x10'6/uL 06/01/2024 1:37 PM CDT [facility] HGB 13.7 12.3 - 15.3 G/DL 06/01/2024 1:37 PM CDT [facility] HCT 44.6 35.9 - 44.6 % 06/01/2024 1:37 PM CDT [facility] MCV 93.7 80.0 - 96.0 FL 06/01/2024 1:37 PM CDT [facility] MCH 28.8 25.3 - 30.9 PG 06/01/2024 1:37 PM CDT [facility] MCHC 30.7(L) 31.0 - 34.1 G/DL 06/01/2024 1:37 PM CDT [facility] RDW 17.7(H) 12.4 - 15.1 % 06/01/2024 1:37 PM T [facility] PLT 242 151 - 353 x10'3/uL 06/01/2024 1:37 PM T [facility] MPV 10.5 9.6 - 12.0 FL 06/01/2024 1:37 PM T [facility] RBC MORPHOLOGY NORMAL 06/01/2024 1:37 PM T [facility] PLT MORPH. NORMAL 06/01/2024 1:37 PM T [facility] WBC MORPHOLOGY NORMAL 06/01/2024 1:37 PM T [facility] LYMPHOCYTES % 32.0 15.8 - 45.0 % 06/01/2024 1:37 PM T [facility] NEUTROPHILS % 47.0 42.1 - 71.9 % 06/01/2024 1:37 PM T [facility] MONOCYTES % 14.5(H) 5.7 - 12.5 % 06/01/2024 1:37 PM T [facility] EOSINOPHILS 4.9 0.0 - 5.6 % 06/01/2024 1:37 PM T [facility] BASOPHILS 1.4(H) 0.0 - 1.3 % 06/01/2024 1:37 PM T [facility] ABS. NEUTROPHILS 2.29 1.40 - 6.00 x10'3/uL 06/01/2024 1:37 PM T [facility] IMMATURE GRANS % 0.2 0.0 - 0.5 % 06/01/2024 1:37 PM [facility] ABS. LYMPHOCYTES 1.56 0.80 - 4.70 x10'3/uL 06/01/2024 1:37 PM T [facility] 06/01/2024 9:02 AM CDT Shun Mora MD LABORATORY Final Resul t Performing Organization Address [facility] de Phone Number [facility] [address] [place] [address], [place] [phone] * VITAMIN D, 25 OH (06/01/2024 9:02 AM CDT) Pathologist [facility] VITAMIN D 25 HYDROXY S/P/B 35 30 - 100 NG/ML 06/01/2024 2:31 PM CDT [facility] Comment: ? INTERPRETATION ? DEFICIENT ??<20 ? INSUFFICIENT 20-29 ?SUFFICIENT 30-100 06/01/2024 9:02 AM CDT Shun Mora MD LABORATORY Final Resul t Performing Organization Address [facility] [address] [facility] de Phone Number [facility] [address] [place] [address], [place] [phone] documented in this encounter Visit Diagnoses Diagnosis Tiredness Other malaise and fatigue Vitamin D deficiency Unspecified vitamin D deficiency Encounter for routine history and physical examination of adult documented in this encounter Additional Health Concerns Assessment Noted Time PHQ-9 Depression Total Score: 1 04/03/20 23 3:30 PM CDT documented as of this encounter Care Teams Spinner Hand Relationship Specialty [place] [address] [facility] [place] [address] PCP - General FAMILY PRACTICE 09/29/21 06/08/24 [place] [address] [place] [address] RHEUMATOLOGY 09/27/20 documented as of this encounter
--- OUTSIDE RECORDS SUMMARY | 2024-08-29 09:50 | XMS_ITS | Encounter Summary ---
Author Organization [facility] Address [address] [place] [address]. [place], [place] [address] [place] [address] Care Team Providers Care Conference Coordinator Name Role Phone Gladis Song MD Unavailable Tony Agarwal MD Primary Care Provider + Reason for Visit * Reason Comments Sinus Problem Onset- Thanksgiving. Sore Throat Really sore, feels l cruz she is choking. Drainage down her throat. Onset- yest. Encounter Details Date Type Department Care Team (Late st Contact Info) Description 08/06/2024 11:10 AM GEOTHERMAL ELECTRICAL ENGINEER Office Visit [facility] Medical Group Family Medicine - [place] [address] [place] [phone] Tony Agarwal MD [address] [place] [address] [phone] Sinus Problem (Onset- Thanksgiving. ); Sore Throat (Really sore, feels like she is choking. Drainage down her throat. Onset- yest. ) Social History Tobacco Use Types Packs/Day Years Used Date Smoking Tobacco: Never Passive Smoke Exposure: Never Smokeless Tobacco: Never Tobacco Cessation:Counseling Given: No Alcohol Use Standard Drinks/Week Comments Not Currently 0 (1 standard drink = 0.6 oz pur e alcohol) occassionally PHQ-2 Answer Date Recorded Patient Health Questionnaire-2 Score 1 06/09/2024 Comments No Sex and Gender Information Value Date Recorded Sex Assigned at Not on file Legal Sex Female 10:22 PM GEOTHERMAL ELECTRICAL ENGINEER Gender Identity Female 09/12/2021 9:51 AM GEOTHERMAL ELECTRICAL ENGINEER Sexual Orientation Straight 09/12/2021 9: 51 AM GEOTHERMAL ELECTRICAL ENGINEER documented as of this encounter Last Filed Vital Signs Vital Sign Reading Time Taken Comments Blood Pressure 110/80 08/06/2024 11:12 AM GEOTHERMAL ELECTRICAL ENGINEER Pulse 70 08/06/2024 11:12 AM GEOTHERMAL ELECTRICAL ENGINEER Temperature 36.8 ??C (98.3 ??F) 08/06/2024 11:[address] Respiratory Rate - - Oxygen Saturation 98% 08/06/2024 11:12 AM GEOTHERMAL ELECTRICAL ENGINEER Inhaled Oxygen Concentration - - Weight 62.1 kg (137 lb) 08/06/2024 11:12 AM GEOTHERMAL ELECTRICAL ENGINEER Height 151.8 cm (4' 11.75 ) 08/06/2024 11:12 AM GEOTHERMAL ELECTRICAL ENGINEER Body Mass Index 26.98 08/06/2024 11:12 AM GEOTHERMAL ELECTRICAL ENGINEER documented in this encounter Progress Notes * Tony Agarwal MD - 08/06/2024 11:10 AM CSTSummary: acute SUBJECTIVE: Chio Orantes is a 73-year-old year old female who presents for acute concern, sore throat. Sore throat. Started Thanksgiving. Having difficulty swallowing. Notes some drainage as well. Sinuspressure. Yellow drainage. Phlegm. Got worse overnight. Ongoing 7 days and feels she is getting worse. No cough. She did get flu shot. No problems updated. Review of Systems Per HPI Patient's past medical history, medications, allergies, family history, and social history reviewedand updated in Epic chart as necessary. 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 ([facility] HHS/HCC) Heart failure with preserved ejection fraction ([facility]CC HHS/HCC) Late, effect, cerebrovascular disease Moderate persistent asthma without complication ([facility]/HCC) Obstructive sleep apnea syndrome Generalized osteoarthritis Osteopenia Mixed hyperlipidemia Paroxysmal atrial fibrillation ([facility]CC HHS/HCC) Patent foramen ovale ([facility]HS/HCC) Systemic lupus erythematosus ([facility]/HCC HHS/HCC) Tremor Essential hypertension Sacroiliac joint dysfunction of both sides Mild neurocognitive disorder History of colon cancer Polyneuropathy, peripheral sensorimotor axonal Current Outpatient Medications: albuterol sulfate HFA 108 (90 Base) MCG/ACT inhaler, Inhale 2 puffs into the lungs every 4 (four) hours as needed for Wheezing., Disp: 18 g, Rfl: 3 atorvastatin 80 MG tablet, TAKE 1 TABLET BY MOUTH EVERY DAY, Disp: , Rfl: bisoprolol (ZEBETA) 5 MG tablet, Take 1 tablet (5 mg total) by mouth daily., Disp: , Rfl: brimonidine (ALPHAGAN) 0.2 % ophthalmic solution, INSTILL 1 DROP INTO BOTH EYES 3 TIMES A DAY, Disp: , Rfl: Calcium Carbonate Antacid (CALCIUM CARBONATE OR), Take 600 mg by mouth daily., Disp: , Rfl: ELIQUIS 5 MG tablet, Take 1 tablet (5 mg total) by mouth 2 (two) times daily., Disp: , Rfl: empagliflozin (JARDIANCE) 10 MG tablet, Take 1 tablet (10 mg total) by mouth daily., Disp: , Rfl: fluticasone furoate-vilanterol (BREO ELLIPTA) 100-25 MCG/ACT inhaler, Inhale 1 puff into the lungs daily. Rinse and spit after use, Disp: 180 each, Rfl: 3 isosorbide mononitrate ER (IMDUR) 30 MG 24 hr tablet, Take 1 tablet (30 mg total) by mouth daily., Disp: 30 tablet, Rfl: 0 methotrexate (TREXALL) 2.5 MG tablet, Per rheumatology, Disp: , Rfl: nitroglycerin 0.4 MG SL tablet, As needed, Disp: , Rfl: pantoprazole EC (PROTONIX) 40 MG tablet, Take 1 tablet (40 mg total) by mouth daily., Disp: 90 tablet, Rfl: 3 PARoxetine (PAXIL) 20 MG tablet, Take 1 tablet (20 mg total) by mouth daily., Disp: 90 tablet, Rfl:3 pregabalin (LYRICA) 50 MG capsule, Take 1 capsule (50 mg total) by mouth 2 (two) times daily., Disp: 180 capsule, Rfl: 3 triamcinolone (KENALOG) 0.1 % cream, Apply topically 2 (two) times daily., Disp: 15 g, Rfl: 1 vitamin C 1000 MG tablet, Take 1 tablet (1,000 mg total) by mouth daily., Disp: , Rfl: vitamin D3, cholecalciferol, 125 mcg capsule, 1 capsule (125 mcg total) daily., Disp: , Rfl: Allergies Allergen Reactions Latex Rash Sulfa Antibiotics Swelling Levofloxacin Headache and Nausea Only Nitrofurantoin Headache Past Surgical History: Procedure Laterality Date APPENDECTOMY SECTION COLONOSCOPY N/A 09/18/2023 COLONOSCOPY - negative performed by Randal Seth MD at [facility] OR TRIGGER FINGER RELEASE HYSTERECTOMY SCREENING COLONOSCOPY 2019 TONSILLECTOMY OBJECTIVE: Filed Vitals: 08/06/24 1112 BP: 110/80 Pulse: 70 Temp: 98.3 ??F (36.8 ??C) TempSrc: Temporal SpO2: 98% Weight: 62.1 kg (137 lb) Height: 1.518 m (4' 11.75 ) Physical Exam Constitutional: Appearance: Normal appearance. HENT: Right Ear: Tympanic membrane normal. Left Ear: Tympanic membrane normal. Nose: Congestion and rhinorrhea present. Mouth/Throat: Mouth: Mucous membranes are dry. Pharynx: Posterior oropharyngeal erythema present. No oropharyngeal exudate. Cardiovascular: Rate and Rhythm: Normal rate and regular rhythm. Pulses: Normal pulses. Heart sounds: Normal heart sounds. Pulmonary: Effort: Pulmonary effort is normal. No respiratory distress. Breath sounds: Normal breath sounds. No wheezing or rales. Lymphadenopathy: Cervical: Cervical adenopathy present. Neurological: Mental Status: She is alert. ASSESSMENT & PLAN: Chio Orantes is a 73-year-old female presents to discuss with following. Acute bacterial sinusitis. Strep negative. Concern for ongoing symptoms past 7 days plus she has some chronic conditions, lupus taking methotrexate which makes her more susceptible to acute illness. We will take a more aggressive approach and treat with Augmentin for sinusitis. Lab: [facility] [address] [facility] [place] [address] No follow-ups on file. TONY AGARWAL MD Family Practice HERMAL ELECTRICAL ENGINEER documented in this encounter Plan of Treatment Upcoming Encounters Date Type Department Care Team (Late Contact Info) Description 10/02/2024 11:40 AM GEOTHERMAL ELECTRICAL ENGINEER Office Visit [facility] Medical Group Multispecialty Care - [facility] [address] [place] [id number] Johnnie Lr MD [address] [place] [address] 01/04/2025 9:50 AM CDT Office Visit [facility] Medical Group Family Medicine - [place] [address] [place] [address] Tony Agarwal MD [address] [place], [place] [address] documented as of this encounter Procedures Procedure Name Priority Date/Time Associated Diagnosis Comments STREP A RAPID Routine 08/06/2024 Sore throat documented in this encounter Results * STREP A RAPID (08/06/2024) RAPID STREP TEST NEGATIVE NEGATIVE [address] [place] Comment:per no need for strep culture Internal Control: VALID VALID [address] [place] STRUCTURE OF ANTERIOR PORTION OF NECK / Unknown 08/06/2024 us Tony Agarwal MD MICROBIOLOGY - GENERAL O RDERABLES Final Result [address] [place] [address] [place] [address], [place] [phone] documented in this encounter Visit Diagnoses Diagnosis Sore throat- Primary Acute pharyngitis Acute bacterial sinusitis Acute sinusitis, unspecified documented in this encounter Additional Health Concerns Assessment Noted Time PHQ-9 Depression Total Score: 1 04/03/20 23 3:30 PM CDT documented as of this encounter Care Teams Conference Coordinator Relationship Specialty Start Date End Date Tony Agarwal MD [address] [place], [place] [address] PCP - General FAMILY PRACTICE 06/09/24 [place] [address] [facility]. [address] [address] RHEUMATOLOGY 09/27/20 documented as of this encounter
--- OUTSIDE RECORDS SUMMARY | 2024-08-29 09:50 | XMS_ITS | Patient Health Summary ---
Author Organization [facility] Address [address] [facility] [place] [address] Care Team Providers Care Rattlesnake Farmer Name Role Phone Santiago Bueno MD Primary Care Provider [phone] [facility],non-owned Affiliates and Associated Physician Practices is amultiple site organization consisting of ambulatory clinics and hospital sitesin [place], [place], [place] and [place]. This disclosure is being madepursuant to the Care Everywhere program and may not contain all information available regarding this patient. Last updated 18.[facility] Social History Tobacco Use Types Packs/Day Years Used Date Smoking Tobacco: Never Assessed Sex and Gender Information Value Date Recorded Sex Assigned at Not on file Gender Identity Not on file Sexual Orientation Not on file Procedures * XR KNEE BILAT STANDING 1VW(Performed 11/10/2015) Performed for Bilateral anterior knee pain * XR CHEST 2VW(Performed 07/04/2015) Performed for VELAZQUEZ (dyspnea on exertion) * XR LUMBAR SPINE COMPL 6VWS(Performed 08/09/2014) Performed for Backache, unspecified Results * XR KNEES AP BILATERAL STANDING [OFH522] (11/10/2015 12:02 PM HOSPICE NURSE PRACTITIONER) Anatomical Region Laterality Modality Lower Extremity Radiographic Ashlye ging 11/10/2015 1:44 PM HOSPICE NURSE PRACTITIONER Impressions 11/10/2015 1:44 PM HOSPICE NURSE PRACTITIONER Unremarkable study Narrative 11/10/2015 1:44 PM HOSPICE NURSE PRACTITIONER Standing knees. Knee pain. AP view of the knees is in position show well-maintained joint spaces. There is no fracture or dislocation or lytic or blastic lesion. Procedure Note Panfilo Manuel MD - 11/10/2015 Standing knees. Knee pain. AP view of the knees is in position show well-maintained joint spaces. There is no fracture or dislocation or lytic or blastic lesion. IMPRESSION Unremarkable study Liliam Barajas Brennan [facility] NG ORDERABLES * XR CHEST PA AND LATERAL (07/04/2015 4:32 PM HOSPICE NURSE PRACTITIONER) Anatomical Region Laterality Modality Chest Radiographic Ashley ging 07/04/2015 5:16 PM HOSPICE NURSE PRACTITIONER Narrative 07/04/2015 5:23 PM HOSPICE NURSE PRACTITIONER TWO VIEW CHEST History: Difficulty breathing. The heart size is normal. The aorta is mildly atherosclerotic. The pulmonary vascularity and pastor are normal. The lungs are clear. Soft tissues and bony thorax are normal. DIAGNOSIS: Atherosclerotic aorta, otherwise grossly negative. Edited by Natalie Frank on 07/04/2015 5:19 PM Procedure Note William Lyman MD - 07/04/2015 TWO VIEW CHEST History: Difficulty breathing. The heart size is normal. The aorta is mildly atherosclerotic. The pulmonary vascularity and pastor are normal. The lungs are clear. Soft tissues and bony thorax are normal. DIAGNOSIS: Atherosclerotic aorta, otherwise grossly negative. Edited by Natalie rFank on 07/04/2015 5:19 PM Marleni [facility] G ORDERABLES * XR LUMBAR SPINE COMPL 6VWS (08/09/2014 12:14 PM HOSPICE NURSE PRACTITIONER) Anatomical Region Laterality Modality Spine Radiographic Ashley ging 08/09/2014 12:5 9 PM HOSPICE NURSE PRACTITIONER Narrative 08/09/2014 1:39 PM HOSPICE NURSE PRACTITIONER LUMBAR SPINE, 8 VIEWS INCLUDING OBLIQUE AND FLEXION AND EXTENSION VIEWS. HISTORY: Back pain Diffuse degenerative changes throughout the thoracolumbar spine is present. In neutral positioning, there is no evidence of subluxation. Pars defect is seen. Flexion and extension views fail to demonstrate evidence of instability. DIAGNOSIS: Degenerative changes Edited by Minerva Hooks on 08/09/2014 1:38 PM Procedure Note William Lyman MD - 08/09/2014 LUMBAR SPINE, 8 VIEWS INCLUDING OBLIQUE AND FLEXION AND EXTENSION VIEWS. HISTORY: Back pain Diffuse degenerative changes throughout the thoracolumbar spine is present. In neutral positioning, there is no evidence of subluxation. Pars defect is seen. Flexion and extension views fail to demonstrate evidence of instability. DIAGNOSIS: Degenerative changes Edited by Minerva Hooks on 08/09/2014 1:38 PM Adam Simmons III, MD DIAGNOSTIC IMAGING O [facility] Care Teams Rattlesnake Farmer Relationship Specialty Start Date End Date Santiago Bueno MD PCP - General Internal Medicine 08/09/14
--- OUTSIDE RECORDS SUMMARY | 2024-08-29 09:50 | XMS_ITS | Encounter Summary ---
Author Organization [facility] Address [facility] [place] [address] [place] [address] Care Team Providers Care Cattle Producers Name Role Phone Gladis Song MD Unavailable Emily Jordan MD Primary Care Provider + Encounter Details Date Type Department Care Team (Latest Contact Info) Description 07/14/2024 Scan HEALTH INFO SRVCS Scanned, Doc Med Group Social History Tobacco Use Types Packs/Day Years [...] on file Legal Sex Female 10:22 PM PIPE SETTER Gender Identity Female 09/12/2021 9:51 AM PIPE SETTER Sexual Orientation Straight 09/12/2021 9: 51 AM PIPE SETTER documented as of this encounter Plan of Treatment Upcoming Encounters Date Type Department Care Team (Late st Contact Info) Description 10/02/2024 11:40 AM PIPE SETTER Office Visit [facility] Medical Group Multispecialty Care - [facility] [address] [place] [address] Johnnie Lr MD [address] [facility] [address] [place] [address] 01/04/2025 9:50 AM CDT Office Visit [facility] Medical Group Family Medicine - [place] [address] [place] [phone] Emily Jordan MD [address] [place] [phone] documented as of this encounter Visit Diagnoses Not on filedocumented in this encounter Additional Health Concerns Assessment Noted Time PHQ-9 Depression Total Score: 1 04/03/20 23 3:30 PM CDT documented as of this encounter Care Teams Cattle Producers Relationship Specialty Start Date End Date Emily Jordan MD [address] [place] [address] PCP - General FAMILY PRACTICE 06/09/24 [place] [address] [facility]. [facility] [address] [place] [address] RHEUMATOLOGY 09/27/20 documented as of this encounter
--- OUTSIDE RECORDS SUMMARY | 2024-08-29 09:50 | XMS_ITS | Referral Summary ---
Author Organization [facility] Address [facility] [facility] [place] [address] Care Team Providers Care Commissioned Police Officer Name Role Phone Santiago Bueno MD Primary Care Provider [phone] Source Comments [facility],non-[facility] Affiliates and Associated Physician Practices is amultiple site organization consisting of ambulatory clinics and hospital sitesin [place], [place], [place] and [place]. This disclosure is being madepursuant to the Care Everywhere program and may not contain all information available regarding this patient. Last updated 18.[facility] Social History Tobacco Use Types Packs/Day Years Used Date Smoking Tobacco: Never Assessed Sex and Gender Information Value Date Recorded Sex Assigned at Not on file Gender Identity Not on file Sexual Orientation Not on file Plan of Treatment Not on file Care Teams Commissioned Police Officer Relationship Specialty Start Date End Date Santiago Bueno MD PCP - General Internal Medicine 08/09/14
--- OUTSIDE RECORDS SUMMARY | 2024-08-29 09:50 | XMS_ITS | Encounter Summary ---
Author Organization [facility] Address [facility] [facility] [place] [address] Care Team Providers Care Media Clerk Name Role Phone Santiago Bueno MD Primary Care Provider [phone] Encounter Details Date Type Department Care Team (Latest Contact Info) Description 08/09/2014 11:30 AM RAT CULTURIST - 08/09/2014 11:59 PM [facility] Hospital Encounter [facility] [address] [place] [address] Adam Simmons III, MD [address] [place] [address] Discharge Disposition: Home or Self Care Social History Tobacco Use Types Packs/Day Years Used Date Smoking Tobacco: Never Assessed Sex and Gender Information Value Date Recorded Sex Assigned at Not on file Gender Identity Not on file Sexual Orientation Not on file documented as of this encounter Plan of Treatment Not on file documented as of this encounter Procedures Procedure Name Priority Date/Time Associated Diagnosis Comments XR LUMBAR SPINE COMPL 6VWS Routine 08/09/2014 12:14 PM RAT CULTURIST Backache, unspecified documented in this encounter Results * XR LUMBAR SPINE COMPL 6VWS (08/09/2014 12:14 PM RAT CULTURIST) Anatomical Region Laterality Modality Spine Radiographic Ashley ging 08/09/2014 12:5 9 PM RAT CULTURIST Narrative 08/09/2014 1:39 PM RAT CULTURIST LUMBAR SPINE, 8 VIEWS INCLUDING OBLIQUE AND [...] Adam Simmons III, MD DIAGNOSTIC IMAGING O RDERABLES documented in this encounter Visit Diagnoses Diagnosis Backache, unspecified documented in this encounter Care Teams Media Clerk Relationship Specialty Start Date End Date Santiago Bueno MD PCP - General Internal Medicine 08/09/14 documented as of this encounter
--- OUTSIDE RECORDS SUMMARY | 2024-08-29 09:50 | XMS_ITS | Encounter Summary ---
Author Organization [facility] Address [facility] [facility] [place] [address] Care Team Providers Care Dolly Driver Name Role Phone Santiago Bueno MD Primary Care Provider [phone] Encounter Details Date Type Department Care Team (Latest Contact Info) Description 11/10/2015 11:25 AM FLOOR SPACE ALLOCATOR - 11/10/2015 11:59 PM FLOOR SPACE ALLOCATOR Hospital Encounter [facility] [address] [place] [address] [address] [place] [address] Liliam Amin PA [address] [place] [address] Discharge Disposition: Home or Self Care Social [...] Name Priority Date/Time Associated Diagnosis Comments XR KNEE BILAT STANDING 1VW Routine 11/10/2015 12:02 PM FLOOR SPACE ALLOCATOR Bilateral anterior knee pain documented in this encounter Results * XR KNEES AP BILATERAL STANDING [[id number]] (11/10/2015 12:02 PM FLOOR SPACE ALLOCATOR) Anatomical Region Laterality Modality Lower Extremity Radiographic Ashley ging 11/10/2015 1:44 PM FLOOR SPACE ALLOCATOR Impressions 11/10/2015 1:44 PM FLOOR SPACE ALLOCATOR Unremarkable study Narrative 11/10/2015 1:44 PM FLOOR SPACE ALLOCATOR Standing knees. Knee pain. AP view of [...] or blastic lesion. IMPRESSION Unremarkable study Liliam [facility] NG ORDERABLES documented in this encounter Visit Diagnoses Diagnosis Bilateral anterior knee pain Pain in joint, lower leg documented in this encounter Care Teams Dolly Driver Relationship Specialty Start Date End Date Santiago Bueno MD PCP - General Internal Medicine 08/09/14 documented as of this encounter
--- OUTSIDE RECORDS SUMMARY | 2024-08-29 09:50 | XMS_ITS | Clinical Summary ---
Author Organization [facility] Address [address] [place] [place] [address] Care Team Providers Care School Guidance Counselor Name Role Phone Santiago Bueno MD Primary Care Provider [phone] Source Comments [facility],non-[facility] Affiliates and Associated Physician Practices is amultiple site organization consisting of ambulatory clinics and hospital sitesin [place], [place], [place] and [place]. This disclosure is being madepursuant to the Care Everywhere program and may not contain all information available regarding this patient. Last updated 18.[facility] [place] Social History Tobacco Use Types Packs/Day Years Used Date Smoking Tobacco: Never Assessed Sex and Gender Information Value Date Recorded Sex Assigned at Not on file Gender Identity Not on file Sexual Orientation Not on file Plan of Treatment Health Maintenance Due Date Last Done Comments BONE DENSITY TESTING 1948 COLOGUARD (AGES 45-75) - COL ON CA SCREENING 1948 COLON MONITORING 1948 COLONOSCOPY - COLON CA SCREENING 1948 CT COLONOGRAPHY - COLON CA SCREENING 1948 Colorectal Cancer Screening 1948 FIT - COLON CA SCREENING 1948 FLEX SIG - COLON CA SCREENING 1948 LIPID TESTING 1948 MAMMOGRAM 1948 HEPATITIS C SCREENING 10/24/1966 DTAP/TDAP/TD VACCINES (1 - Tdap) 1967 ZOSTER VACCINE (1 of 2) 1998 PNEUMOCOCCAL VACCINE 65+ (1 of 1 - PCV) 2013 DEPRESSION SCREENING 09/02/2023 Respiratory Syncytial Virus (RSV) Vaccine Pt: or over 60 yrs (1 - 1-dose 75+ series) 2023 COVID-19 VACCINE (2023-2 5 season) 2024 INFLUENZA VACCINE (#1) 2024 HEPATITIS B VACCINE Aged Out No longe r eligible based on patient's age to complete this topic HIB VACCINE Aged Out No longer eligi ble based on patient's age to complete this topic HPV VACCINE Aged Out No longer eligi ble based on patient's age to complete this topic MENINGOCOCCAL VACCINE Aged Out No ana humberto eligible based on patient's age to complete this topic Insurance Payer Benefit Plan / Group Subscriber ID Effective Dates Phone Address Type AETNA AETNA MEDICARE ADV HMO/PPO [id number] 2014-Present [address] [place] [phone] Medicare-[place] naged Care AETNA AETNA MEDICARE ADV HMO/PPO [id number] 2015-Present [address] [place] [phone] Medicare-[place] naged Care AETNA AETNA PPO/POS/OA [id number] 2013-Present [address] [place] [phone] PPO Care Teams School Guidance Counselor Relationship Specialty Start Date End Date Santiago Bueno MD PCP - General Internal Medicine 08/09/14
--- OUTSIDE RECORDS SUMMARY | 2024-08-29 09:50 | XMS_ITS | Encounter Summary ---
Author Organization [facility] Address [facility] [place] [address] Care Team Providers Care Linen Worker Name Role Phone Santiago Bueno MD Primary Care Provider [phone] Encounter Details Date Type Department Care Team (Latest Contact Info) Description 07/04/2015 4:15 PM TECHNICAL PROJECT MANAGER - 07/04/2015 11:59 PM TECHNICAL PROJECT MANAGER Hospital Encounter [facility] [address] [facility] [address] [place] [address] Marleni Taveras PA [address] [facility] [address] [place], [address] Discharge Disposition: Home or Self Care Social [...] Name Priority Date/Time Associated Diagnosis Comments XR CHEST 2VW Routine 07/04/2015 4:32 PM TECHNICAL PROJECT MANAGER VELAZQUEZ (dyspnea on exertion) documented in this encounter Results * XR CHEST PA AND LATERAL (07/04/2015 4:32 PM TECHNICAL PROJECT MANAGER) Anatomical Region Laterality Modality Chest Radiographic Ashley ging 07/04/2015 5:16 PM TECHNICAL PROJECT MANAGER Narrative 07/04/2015 5:23 PM TECHNICAL PROJECT MANAGER TWO VIEW CHEST History: Difficulty breathing. The [...] by Natalie Frank on 07/04/2015 5:19 PM [facility] ORDERABLES documented in this encounter Visit Diagnoses Diagnosis VELAZQUEZ (dyspnea on exertion) Other dyspnea and respiratory abnormality documented in this encounter Care Teams Linen Worker Relationship Specialty Start Date End Date Santiago Bueno MD PCP - General Internal Medicine 08/09/14 documented as of this encounter
--- OUTSIDE RECORDS SUMMARY | 2024-08-29 09:50 | XMS_ITS | Encounter Summary ---
Author Organization [facility] Address [facility] [address] [place] [address] Care Team Providers Care Retail Event Coordinator Name Role Phone Gladis Song MD Unavailable Emily Jordan MD Primary Care Provider + Encounter Details Date Type Department Care Team (Latest Contact Info) Description 08/06/2024 Travel Social History Tobacco Use Types Packs/Day Years [...] on file Legal Sex Female 10:22 PM DISTRIBUTING CLERK Gender Identity Female 09/12/2021 9:51 AM DISTRIBUTING CLERK Sexual Orientation Straight 09/12/2021 9: 51 AM DISTRIBUTING CLERK documented as of this encounter Plan of Treatment Upcoming Encounters Date Type Department Care Team (Late st Contact Info) Description 10/02/2024 11:40 AM DISTRIBUTING CLERK Office Visit [facility] Multispecialty Care - [address], [address] [place] [address] Johnnie Lr MD 3 [facility] [address] [place] [address] 01/04/2025 9:50 AM CDT Office Visit [facility] Family Medicine - [place] [address] [place] [address] Emily Jordan MD [address] [place] [phone] documented as of this encounter Visit Diagnoses Not on filedocumented in this encounter Additional Health Concerns Assessment Noted Time PHQ-9 Depression Total Score: 1 04/03/20 23 3:30 PM CDT documented as of this encounter Care Teams Retail Event Coordinator Relationship Specialty Start Date End Date Emily Jordan MD [address] [place] [address] PCP - General FAMILY PRACTICE 06/09/24 [place] [address] [facility]. [facility] [address] [place] [address] RHEUMATOLOGY 09/27/20 documented as of this encounter
--- OUTSIDE RECORDS SUMMARY | 2024-08-29 09:50 | XMS_ITS | Encounter Summary ---
Author Organization [facility] Address [address] [place] [address]. [place] [address] [place] [address] Care Team Providers Care Pusher Operator Name Role Phone Gladis Song MD Unavailable Emily Jordan MD Primary Care Provider + Encounter Details Date Type Department Care Team (Late st Contact Info) Description 06/26/2024 Orders Only [facility] Family Medicine - [place] [address] [facility] [address] [place] [phone] Monserrat Wilson, HEALTH TECHNICIAN HEARING [address] [place] [address] Social History Tobacco Use Types Packs/Day Years [...] on file Legal Sex Female 10:22 PM FLEXO PRESS OPERATOR Gender Identity Female 09/12/2021 9:51 AM FLEXO PRESS OPERATOR Sexual Orientation Straight 09/12/2021 9: 51 AM FLEXO PRESS OPERATOR documented as of this encounter Plan of Treatment Upcoming Encounters Date Type Department Care Team (Late st Contact Info) Description 10/02/2024 11:40 AM FLEXO PRESS OPERATOR Office Visit [facility] Medical [facility] [address] [place] [address] Johnnie Lr MD [address] [place] [address] 01/04/2025 9:50 AM CDT Office Visit [facility] Family Medicine - [place] [address] [place] [phone] Emily Jordan MD [address] [place], [place] [address] documented as of this encounter Procedures Procedure Name Priority Date/Time Associated Diagnosis Comments POTASSIUM, SERUM 06/26/2024 10:0 1 AM CDT documented in this encounter Results * POTASSIUM, SERUM (06/26/2024 10:01 AM CDT) POTASSIUM S/P/B 4.3 3.5 - 5.2 mmol/L [facility] 1 06/26/2024 10:0 1 AM CDT 06/26/2024 Narrative [facility] - 06/27/2024 7:07 AM CDT Performed at: ??01 - [facility] [address] ??[id number] Reroller Hand: Suresh Rodriguez PhD, Phone: ??[phone] us Monserrat Wilson HEALTH TECHNICIAN [facility]ING [facility] Final Res ult [facility] [address] [place] [address] [facility] 1 documented in this encounter Visit Diagnoses Not on filedocumented in this encounter Additional Health Concerns Assessment Noted Time PHQ-9 Depression Total Score: 1 04/03/20 23 3:30 PM CDT documented as of this encounter Care Teams Pusher Operator Relationship Specialty Start Date End Date Emily Jordan MD [address] [facility] [address] [place] [address] PCP - General FAMILY PRACTICE 06/09/24 [place] [address] [facility]. [facility] [address] [place] [address] RHEUMATOLOGY 09/27/20 documented as of this encounter
--- OUTSIDE RECORDS SUMMARY | 2024-08-29 09:50 | XMS_ITS | Encounter Summary ---
Author Organization [facility] Address [facility] [place] [address] [place] [address] Care Team Providers Care Behavioral School Counselors Name Role Phone Gladis Song MD Unavailable Emily Jordan MD Primary Care Provider + Encounter Details Date Type Department Care Team (Latest Contact Info) Description 07/07/2024 Travel Social History Tobacco Use Types Packs/Day [...] on file Legal Sex Female 10:22 PM PROGRAM DIRECTOR AIR TALENT Gender Identity Female 09/12/2021 9:51 AM PROGRAM DIRECTOR AIR TALENT Sexual Orientation Straight 09/12/2021 9: 51 AM PROGRAM DIRECTOR AIR TALENT documented as of this encounter Plan of Treatment Upcoming Encounters Date Type Department Care Team (Late st Contact Info) Description 10/02/2024 11:40 AM PROGRAM DIRECTOR AIR TALENT Office Visit [facility] Medical [facility] Multispecialty Care - [address], [address] [place] [address] Johnnie Lr MD 3 [facility] [address] [place] [address] 01/04/2025 9:50 AM CDT Office Visit [facility] Family Medicine - [place] [address] [place] [address] Emily Jordan MD [address] [place] [address] documented as of this encounter Visit Diagnoses Not on filedocumented in this encounter Additional Health Concerns Assessment Noted Time PHQ-9 Depression Total Score: 1 04/03/20 23 3:30 PM CDT documented as of this encounter Care Teams Behavioral School Counselors Relationship Specialty Start Date End Date Emily Jordan MD [address] [place] [address] PCP - General FAMILY PRACTICE 06/09/24 [place] [address] [facility] [facility] [address] [place] [address] RHEUMATOLOGY 09/27/20 documented as of this encounter
--- OUTSIDE RECORDS SUMMARY | 2024-08-29 09:50 | XMS_ITS | Encounter Summary ---
Author Organization [facility] Address [facility]6 [facility] [address] [place] [address] Care Team Providers Care Mandrel Press Hand Name Role Phone Gladis Song MD Unavailable Emily Jordan MD Primary Care Provider + Encounter Details Date Type Department Care Team (Latest Contact Info) Description 07/20/2024 Scan HEALTH INFO SRVCS Scanned, Doc Med [...] on file Legal Sex Female 10:22 PM LAPEL STITCHER Gender Identity Female 09/12/2021 9:51 AM LAPEL STITCHER Sexual Orientation Straight 09/12/2021 9: 51 AM LAPEL STITCHER documented as of this encounter Plan of Treatment Upcoming Encounters Date Type Department Care Team (Late st Contact Info) Description 10/02/2024 11:40 AM LAPEL STITCHER Office Visit [facility] Multispecialty Care - [facility] [address] [facility], [address] [place] [address] Johnnie Lr MD 3 [facility] [address] [place] [address] 01/04/2025 9:50 AM CDT Office Visit [facility] Family Medicine - [place] [address] [place] [phone] Emily Jordan MD [address] [place] [phone] documented as of this encounter Visit Diagnoses Not on filedocumented in this encounter Additional Health Concerns Assessment Noted Time PHQ-9 Depression Total Score: 1 04/03/20 23 3:30 PM CDT documented as of this encounter Care Teams Mandrel Press Hand Relationship Specialty Start Date End Date Emily Jordan MD [address] [place] [address] PCP - General FAMILY PRACTICE 06/09/24 [place] [address] [facility]. [facility] [address] [place] [address] RHEUMATOLOGY 09/27/20 documented as of this encounter
--- OUTSIDE RECORDS SUMMARY | 2024-08-29 09:50 | XMS_ITS | Encounter Summary ---
Author Organization [facility] Address [address] [place] [address]. [place], [place] [address] [place] [address] Care Team Providers Care Professor Of Archaeology Name Role Phone Gladis Song MD Unavailable Tony Agarwal MD Primary Care Provider + Reason for Referral * Physical Medicine (Routine) - Authorized Specialty Diagnoses / Procedures Referred By Contvannessa t Referred To Contact PHYSICAL THERAPY Diagnoses Impingement of right shoulder Procedures OFFICE/OUTPATIENT NEW LOW MDM 30-44 MINUTES OFFICE/OUTPT VISIT,NEW,LEVL IV OFFICE/OUTPT VISIT,NEW,LEVL V OFFICE/OUTPT VISIT,EST,LEVL III OFFICE/OUTPT VISIT,EST,LEVL IV OFFICE/OUTPT VISIT,EST,LEVL V Tony Agarwal MD [address] [place] [address] Phone: tel: fax: [facility] [address] [place] [address] Phone: tel: fax: Referral ID Status Reason Start Date Expiration Date Visits Requested Visits Authorized [id number] Authorized Physical Therapy 07/07/2024 08/06/2025 99 99 [facility] Reason for Visit * Reason Comments Follow Up 4 Wk check /medicati on/ discuss lab results. Encounter Details Date Type Department Care Team (Late st Contact Info) Description 07/07/2024 9:30 AM RESPIRATORY TECH Office Visit [facility] Family Medicine - [place] [address] [place] [address] Tony Agarwal MD [address] [place], [place] [phone] Follow Up (4 Wk check /medication/ discuss lab results. ) Social History Tobacco Use Types Packs/Day [...] on file Legal Sex Female 10:22 PM RESPIRATORY TECH Gender Identity Female 09/12/2021 9:51 AM RESPIRATORY TECH Sexual Orientation Straight 09/12/2021 9: 51 AM RESPIRATORY TECH documented as of this encounter Last Filed Vital Signs Vital Sign Reading Time Taken Comments Blood Pressure 120/80 07/07/2024 9:39 AM RESPIRATORY TECH Pulse 78 07/07/2024 9:39 AM RESPIRATORY TECH Temperature 36.1 ??C (97 ??F) 07/07/2024 9:39 AM RESPIRATORY TECH Respiratory Rate 18 07/07/2024 9:39 AM RESPIRATORY TECH Oxygen Saturation 94% 07/07/2024 9:39 AM RESPIRATORY TECH Inhaled Oxygen Concentration - - Weight 62.7 kg (138 lb 3.2 oz) 07/07/2024 9:39 A M RESPIRATORY TECH Height 151.8 cm (4' 11.75 ) 07/07/2024 9:[address] Body Mass Index 27.22 07/07/2024 9:39 AM RESPIRATORY TECH documented in this encounter Progress Notes * Tony Agarwal MD - 07/07/2024 10:09 AM CSTAssociated Problem(s): Polyneuropathy, peripheral sensorimotor axonal Not yet controlled. Encouraged her to start Lyrica which should help manage symptoms adequately. IRATORY TECH * Tony Agarwal MD - 07/07/2024 9:30 AM CSTSummary: chronic SUBJECTIVE: Chio Orantes is a 73-year-old year old female who presents for management of chronic conditions. Right shoulder pain. Doesn't recall specific injury but has been doing activities with grandkids. Takes tylenol. Over the head motion is painful. 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 Sees neurology. Picked up the Lyrica but has not yet tried it. She thought perhaps it was to manage her leg cramping which is resolved with discontinuation of potassium. She continues to have a sense of numbness in the feet and feeling like stones in her shoes. Review of Systems Per HPI Patient's past medical history, medications, allergies, family history, and social history reviewedand updated in Epic chart as necessary. 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 (CMS/HCC HHS/HCC) Heart failure with preserved ejection fraction (CMS/HCC HHS/HCC) Late, effect, cerebrovascular disease Moderate persistent asthma without complication (HHS/HCC) Obstructive sleep apnea syndrome Generalized osteoarthritis Osteopenia Mixed hyperlipidemia Paroxysmal atrial fibrillation (CMS/HCC HHS/HCC) Patent foramen ovale (HHS/HCC) Systemic lupus erythematosus (CMS/HCC HHS/HCC) Tremor Essential hypertension Sacroiliac joint dysfunction [...] (125 mcg total) daily., Disp: , Rfl: Review of patient's allergies indicates: Allergen Reactions Latex Rash Sulfa Antibiotics Swelling Levofloxacin Headache and Nausea Only Nitrofurantoin Headache Past Surgical History: Procedure Laterality Date APPENDECTOMY SECTION COLONOSCOPY N/A 09/18/2023 COLONOSCOPY - negative performed by Randal Seth MD at [facility] OR TRIGGER FINGER RELEASE HYSTERECTOMY SCREENING COLONOSCOPY 2019 TONSILLECTOMY OBJECTIVE: Filed Vitals: 07/07/24 0939 BP: 120/80 Pulse: 78 Resp: 18 Temp: 97 ??F (36.1 ??C) TempSrc: Temporal SpO2: 94% Weight: 62.7 kg (138 lb 3.2 oz) Height: 1.518 m (4' 11.75 ) Physical Exam Constitutional: Appearance: Normal appearance. Eyes: Extraocular Movements: Extraocular movements intact. Pupils: Pupils are equal, round, and reactive to light. Cardiovascular: Rate and Rhythm: Normal rate and regular rhythm. Pulses: Normal pulses. Heart sounds: Normal heart sounds. Pulmonary: Effort: Pulmonary effort is normal. Breath sounds: Normal breath sounds. Musculoskeletal: Comments: Positive empty can test on the right. Positive Oconnell. Pain with external rotation of the shoulder. Neurological: Mental Status: She is alert. No visits with results within 10 Day(s) from this visit. Latest known visit with results is: Orders Only on 06/26/2024 Component Date Value Ref Range Status POTASSIUM S/P/B 06/26/2024 4.3 3.5 - 5.2 mmol/L Final ] ASSESSMENT & PLAN: Chio Orantes is a 73-year-old female presents to discuss with following. Problem List Items Addressed This Visit Polyneuropathy, peripheral sensorimotor axonal Not yet controlled. Encouraged her to start Lyrica which should help manage symptoms adequately. Relevant Medications pregabalin (LYRICA) 50 MG capsule Other Visit Diagnoses Impingement of right shoulder - Primary. New diagnosis. Referral to PT Relevant Orders Ambulatory referral to Physical Therapy Lab: [facility] [address] [facility] [address] No follow-ups on file. TONY AGARWAL MD [facility] Practice IRATORY TECH documented in this encounter Plan of Treatment Upcoming Encounters Date Type Department Care Team (Late st Contact Info) Description 10/02/2024 11:40 AM RESPIRATORY TECH Office Visit [facility] Medical Group Multispecialty Care - [address] [place] [address] Johnnie Lr MD 3 [facility] [address] [place] [address] 01/04/2025 9:50 AM CDT Office Visit [facility] Family Medicine - [place] [address] [place] [address] Tony Agarwal MD [address] [place] [phone] Scheduled Referrals Name Type Priority Associated Diagnoses Orde r Schedule Ambulatory referral to Physical Therapy Referral Routine Impingement of right shoulder Ordered: 07/07/2024 documented as of this encounter Visit Diagnoses Diagnosis Impingement of right shoulder- Primary Polyneuropathy, peripheral sensorimotor axonal Other specified idiopathic peripheral neuropathy documented in this encounter Additional Health Concerns Assessment Noted Time PHQ-9 Depression Total Score: 1 04/03/20 23 3:30 PM CDT documented as of this encounter Care Teams Professor Of Archaeology Relationship Specialty Start Date End Date Tony Agarwal MD [address] [place] [address] PCP - General FAMILY PRACTICE 06/09/24 [place] [address] [facility]. [facility] [address] [place] [address] RHEUMATOLOGY 09/27/20 documented as of this encounter
--- OUTSIDE RECORDS SUMMARY | 2024-08-29 09:50 | XMS_ITS | Encounter Summary ---
Author Organization [facility] Address [address] [place] [address]. [place] [address] [place] [address] Care Team Providers Care Car Hostler Name Role Phone Gladis Song MD Unavailable Tony Agarwal MD Primary Care Provider + Reason for Visit * Reason Comments New Patient Transfer from [facility] Encounter Details Date Type Department Care Team (Late st Contact Info) Description 06/09/2024 10:30 AM CDT Office Visit [facility] Medical Group Family Medicine - [place] [address] [place] [phone] Tony Agarwal MD [address] [place] [phone] New Patient (Transfer from [facility]) Social History Tobacco Use Types Packs/Day Years [...] on file Legal Sex Female 10:22 PM SNOW GROOMER Gender Identity Female 09/12/2021 9:51 AM SNOW GROOMER Sexual Orientation Straight 09/12/2021 9: 51 AM SNOW GROOMER documented as of this encounter Last Filed Vital Signs Vital Sign Reading Time Taken Comments Blood Pressure 129/75 06/09/2024 10:30 AM CDT Pulse 75 06/09/2024 10:30 AM CDT Temperature 36.6 ??C (97.9 ??F) 06/09/2024 10:30 AM C DT Respiratory Rate 15 06/09/2024 10:30 AM CDT Oxygen Saturation 97% 06/09/2024 10:30 AM CDT Inhaled Oxygen Concentration - - Weight 61.9 kg (136 lb 6.4 oz) 06/09/2024 10:30 AM CDT Height 151.8 cm (4' 11.75 ) 06/09/2024 10:30 AM CDT Body Mass Index 26.86 06/09/2024 10:30 AM CDT documented in this encounter Patient Instructions * Patient Instructions* Tony Agarwal MD - 06/09/2024 10:30 AM CDT Start lyrica for neuropathy Stop potassium [facility] Follow up one month for wellness visit. documented in this encounter Progress Notes * Tony Agarwal MD - 06/09/2024 11:35 AM CDTAssociated Problem(s): JERSON (generalized anxiety disorder) Controlled on reduced dose. Encouraged her to continue on this lower dose. * Tony Agarwal MD - 06/09/2024 11:34 AM CDTAssociated Problem(s): Mixed hyperlipidemia CMP and lipid panel reviewed and at goal. Continue atorvastatin. * Tony Agarwal MD - 06/09/2024 11:33 AM CDTAssociated Problem(s): Paroxysmal atrial fibrillation (CMS/HCC HHS/HCC) Rate controlled on bisoprolol and anticoagulated with Eliquis. Stable. Followed by cardiology. * Tony Agarwal MD - 06/09/2024 11:33 AM CDTAssociated Problem(s): Moderate persistent asthma without complication (HHS/HCC) Controlled. Continue Breo Ellipta and albuterol. * Tony Agarwal MD - 06/09/2024 11:32 AM CDTAssociated Problem(s): Heart failure with preserved ejection fraction (CMS/HCC HHS/HCC) Stable. Await records. Recommend that since she stopped her furosemide she should also stop her potassium supplementation. Ordered BMP. Discussed correlation of UTI and yeast infection with SGLT2 useand she will monitor for recurrence of symptoms. * Tony Agarwal MD - 06/09/2024 11:31 AM CDTAssociated Problem(s): Polyneuropathy, peripheral sensorimotor axonal Not controlled. Trial pregabalin. * Tony Agarwal MD - 06/09/2024 11:02 AM CDTAssociated Problem(s): Gastroesophageal reflux disease Controlled. Continue pantoprazole. Also serves as prophylaxis due to anticoagulation. * Tony Agarwal MD - 06/09/2024 10:30 AM CDTAddended by: TONY AGARWAL on: 06/25/2024 07:49 AM Modules accepted: Orders * Tony Agarwal MD - 06/09/2024 10:30 AM CDTSummary: chronic SUBJECTIVE: Chio Orantes is a 73-year-old year old female who presents for establishing care. 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 Sees neurology. Has not been offered any medication. Mild Neurocognitive Disorder Forgets instructions easily. Good memory from the past. Essential Hypertension Patient takes isosorbide mononitrate, bisoprolol. Did not tolerate otherbeta blockers. Atherosclerosis of Coronary Artery Mild coronary artery disease 20-30% narrowing in the circumflex and right coronar artery from 05/2018. No prior stents or bypass. On appropriate medical therapy. Continue medication. Heart Failure With Preserved Ejection Fraction (Cms/Hcc Hhs/Hcc) LVEDP was 22 from cardiac catheterization in May of 2018. Followed by Cardiology. On appropriate medical therapy including SGLT2. She did have recent UTI and yeast infection. Stable at this time. Continue current therapy. Patient was on furosemide until recently which was discontinued after urgent care visit for not feeling well. History of Arterial Ischemic Stroke Acute ischemic stroke in March 2016 and multiple prior TIAs.Also with history of subcortical strokes. Patient continues on anti-platelet therapy. Will continue on the medication. Blood pressure is under good control. Mixed Hyperlipidemia Takes atorvastatin 80 mg daily. Tolerates well. Paroxysmal Atrial Fibrillation (Cms/Hcc Hhs/Hcc) On Eliquis for CVA prophylaxis. Did not tolerate several beta-blockers but is now on bisoprolol forrate control. Obstructive Sleep Apnea Syndrome Stopped CPAP after she noted didn't tolerate. Intended to get rechecked but did not pursue. Generalized Osteoarthritis Patent Foramen Ovale (Hhs/Hcc) Patent foramen ovale. RoPE score of 2 with low likelihood of contribution to TIAs. Therefore, PFO closure has not been recommended Moderate Persistent Asthma Without Complication (Hhs/Hcc) Patient takes Breo Ellipta, albuterol. Sees Dr. Lr. Goes days without albuterol. Has not needed singulair for some time. Prediabetes Last A1c 5.9%. Late, Effect, Cerebrovascular Disease Minimal residual, was left sided weakness. Jerson (Generalized Anxiety Disorder) She reduced her Paxil to 20 mg daily. Stable at this time. Gastroesophageal Reflux Disease Takes pantoprazole. If she skips a dose, she has bad heartburn. Systemic Lupus Erythematosus ([facility] Hhs/Hcc) Sees rheumatolgoy. Stable, no signs of flare. Continues on MTX. Has caused polyneuropathy. Tremor Right hand. She is also right handed. Review of Systems Per HPI Patient's past medical history, medications, allergies, family history, and social history reviewedand updated in Epic chart as necessary. Patient Active Problem List Diagnosis JERSON (generalized anxiety disorder) Atherosclerosis of coronary artery Prediabetes Gastroesophageal reflux disease History of arterial ischemic stroke Hypertensive heart disease with chronic systolic congestive heart failure ([facility] HHS/[facility]) Heart failure with preserved ejection fraction ([facility] HHS/HCC) Late, effect, cerebrovascular disease Moderate persistent asthma without complication (HHS/HCC) Obstructive sleep apnea syndrome Generalized osteoarthritis Osteopenia Mixed hyperlipidemia Paroxysmal atrial fibrillation ([facility] HHS/[facility]) Patent foramen ovale ([facility]) Systemic lupus erythematosus ([facility] HHS/[facility]) Tremor Essential hypertension Sacroiliac joint dysfunction of [...] negative performed by Randal Seth MD at [facility] OR TRIGGER FINGER RELEASE HYSTERECTOMY SCREENING COLONOSCOPY 2019 TONSILLECTOMY OBJECTIVE: Filed Vitals: 06/09/24 1030 BP: 129/75 Pulse: 75 Resp: 15 Temp: 97.9 ??F (36.6 ??C) TempSrc: Temporal SpO2: 97% Weight: 61.9 kg (136 lb 6.4 oz) Height: 1.518 m (4' 11.75 ) Physical Exam Constitutional: Appearance: Normal appearance. HENT: Right Ear: Tympanic membrane normal. Left Ear: Tympanic membrane normal. Mouth/Throat: Mouth: Mucous membranes are moist. Eyes: Extraocular Movements: Extraocular movements intact. Pupils: Pupils are equal, round, and reactive to light. Cardiovascular: Rate and Rhythm: Normal rate and regular rhythm. Pulses: Normal pulses. Heart sounds: Normal heart sounds. Comments: No edema. Pulmonary: Effort: Pulmonary effort is normal. Breath sounds: Normal breath sounds. Abdominal: General: Bowel sounds are normal. There is no distension. Palpations: Abdomen is soft. Tenderness: There is no abdominal tenderness. Skin: General: Skin is warm and dry. Neurological: General: No focal deficit present. Mental Status: She is alert and oriented to person, place, and time. Comments: Right resting hand tremor Psychiatric: Mood and Affect: Mood normal. Behavior: Behavior normal. Hospital Outpatient Visit on 06/01/2024 Component Date Value Ref Range Status VITAMIN D 25 HYDROXY S/P/B 06/01/2024 35 30 - 100 NG/ML Final Comment: INTERPRETATION DEFICIENT <20 INSUFFICIENT 20-29 SUFFICIENT 30-100 WBC 06/01/2024 4.88 4.4 - 11.0 x10'3/uL Final RBC 06/01/2024 4.76 4.50 - 5.10 x10'6/uL Final HGB 06/01/2024 13.7 12.3 - 15.3 G/DL Final HCT 06/01/2024 44.6 35.9 - 44.6 % Final MCV 06/01/2024 93.7 80.0 - 96.0 FL Final MCH 06/01/2024 28.8 25.3 - 30.9 PG Final MCHC 06/01/2024 30.7 (L) 31.0 - 34.1 G/DL Final RDW 06/01/2024 17.7 (H) 12.4 - 15.1 % Final PLT 06/01/2024 242 151 - 353 x10'3/uL Final MPV 06/01/2024 10.5 9.6 - 12.0 FL Final RBC MORPHOLOGY 06/01/2024 NORMAL Final PLT MORPH. 06/01/2024 NORMAL Final WBC MORPHOLOGY 06/01/2024 NORMAL Final LYMPHOCYTES % 06/01/2024 32.0 15.8 - 45.0 % Final NEUTROPHILS % 06/01/2024 47.0 42.1 - 71.9 % Final MONOCYTES % 06/01/2024 14.5 (H) 5.7 - 12.5 % Final EOSINOPHILS 06/01/2024 4.9 0.0 - 5.6 % Final BASOPHILS 06/01/2024 1.4 (H) 0.0 - 1.3 % Final ABS. NEUTROPHILS 06/01/2024 2.29 1.40 - 6.00 x10'3/uL Final IMMATURE GRANS % 06/01/2024 0.2 0.0 - 0.5 % Final ABS. LYMPHOCYTES 06/01/2024 1.56 0.80 - 4.70 x10'3/uL Final TSH 06/01/2024 1.969 0.358 - 3.74 uIU/ML Final Comment: HIGH DOSES OF BIOTIN MAY INTERFERE WITH THIS TEST RESULT. CORRELATION TO CLINICAL HISTORY AND PRESENTATION RECOMMENDED. FREE T4 NOT INDICATED CHOLESTEROL 06/01/2024 144 <200.0 MG/DL Final TRIGLYCERIDES 06/01/2024 72 <150 MG/DL Final HDL 06/01/2024 53 >40.0 MG/DL Final LDL (CALCULATED) 06/01/2024 77 <100 MG/DL Final NON HDL CHOLESTEROL 06/01/2024 91 <130 MG/DL Final CHOL/HDL RATIO 06/01/2024 2.7 0.0 - 4.5 Final VLDL CALCULATION 06/01/2024 14 5 - 55 MG/DL Final LIPID INTERPRETATION 06/01/2024 Final Comment: NIH CONCENSUS REPORT RECOMMENDATIONS: ADULT CHILD LOW RISK: CHOLESTEROL <200 <170 TRIGLYCERIDE <150 --- HDL >=60 --- LDL <100 <110 BORDERLINE: CHOLESTEROL 200-239 170-199 TRIGLYCERIDE 150-199 --- HDL 40-59 --- LDL 100-159 110-129 HIGH RISK: CHOLESTEROL >=240 >=200 TRIGLYCERIDE >=200 --- HDL <40 --- LDL >=160 >=130 GLUCOSE 06/01/2024 97 70 - 99 MG/DL Final BUN 06/01/2024 21 (H) 7 - 18 MG/DL Final CREATININE S/P/B 06/01/2024 0.69 0.55 - 1.02 MG/DL Final SODIUM S/P/B 06/01/2024 143 136 - 145 MMOL/L Final POTASSIUM S/P/B 06/01/2024 4.7 3.5 - 5.1 MMOL/L Final CHLORIDE S/P/B 06/01/2024 107 100 - 108 MMOL/L Final CO2 06/01/2024 28.9 21 - 32 MMOL/L Final CALCIUM S/P/B 06/01/2024 8.9 8.5 - 10.1 MG/DL Final BILIRUBIN TOTAL S/P/B 06/01/2024 0.6 0.2 - 1.2 MG/DL Final TOTAL PROTEIN S/P/B 06/01/2024 6.5 6.4 - 8.2 G/DL Final ALBUMIN S/P/B 06/01/2024 3.4 3.4 - 5.0 G/DL Final AST 06/01/2024 27 15 - 37 U/L Final ALT 06/01/2024 34 14 - 55 U/L Final ALKALINE PHOSPHATASE S/P/B 06/01/2024 84 50 - 136 U/L Final ANION GAP 06/01/2024 7.1 5 - 15 MMOL/L Final BUN CREATININE RATIO 06/01/2024 30.4 (H) 6 - 26 Final A/G RATIO 06/01/2024 1.1 1.0 - 2.0 RATIO Final GFR ESTIMATE 06/01/2024 >90 >90 ML/MIN/1.73 M2 Final Comment: NOTE: eGFR is not calculated for patients <18 years of age. This is an estimated GFR calculation using the new CKD EPI creatinine equation without race and so does not require a correction factor for race. This estimated GFR should not be used for calculating drug doses. ] ASSESSMENT & PLAN: Chio Orantes is a 73-year-old female presents to discuss with following. Problem List Items Addressed This Visit JERSON (generalized anxiety disorder) Controlled on reduced dose. Encouraged her to continue on this lower dose. Relevant Medications PARoxetine (PAXIL) 20 MG tablet Gastroesophageal reflux disease Controlled. Continue pantoprazole. Also serves as prophylaxis due to anticoagulation. Relevant Medications pantoprazole EC (PROTONIX) 40 MG tablet Hypertensive heart disease with chronic systolic congestive heart failure ([facility]HS[facility]) Heart failure with preserved ejection fraction ([facility] HHS/HCC) Stable. Await records. Recommend that since she stopped her furosemide she should also stop her potassium supplementation. Ordered BMP. Discussed correlation of UTI and yeast infection with SGLT2 useand she will monitor for recurrence of symptoms. Moderate persistent asthma without complication (HHS/HCC) Controlled. Continue Breo Ellipta and albuterol. Mixed hyperlipidemia CMP and lipid panel reviewed and at goal. Continue atorvastatin. Paroxysmal atrial fibrillation ([facility] HHS/HCC) Rate controlled on bisoprolol and anticoagulated with Eliquis. Stable. Followed by cardiology. Systemic lupus erythematosus ([facility] HHS/HCC) Essential hypertension Relevant Orders BASIC METABOLIC PANEL Polyneuropathy, peripheral sensorimotor axonal - Primary Not controlled. Trial pregabalin. Relevant Medications pregabalin (LYRICA) 50 MG capsule Other Visit Diagnoses Anxiety state Relevant Medications PARoxetine (PAXIL) 20 MG tablet I personally spent a total of 73 minutes on the day of the encounter. This includes [id number] and yqh-zpqg-[id number]-face time I provided on the day of the encounter & excludes time spent performing separately reportable services. This patient is establishing care and will being following with me longitudinally. Lab: [facility] [address] [facility] [address] Return in about 4 weeks (around 07/07/2024) for NALINI MURILLO same day. TONY AGARWAL MD Family [facility] documented in this encounter Plan of Treatment Upcoming Encounters Date Type Department Care Team (Late st Contact Info) Description 10/02/2024 11:40 AM SNOW GROOMER Office Visit [facility] Multispecialty Care - [facility] [address] [facility] [place] [id number] Johnnie Lr MD [address] [facility] [address] [place] [address] 01/04/2025 9:50 AM CDT Office Visit [facility] Family Medicine - [place] [address] [address] Tony Agarwal MD [address] [place] [phone] Scheduled Orders Name Type Priority Associated Diagnoses Orde r Schedule POTASSIUM, SERUM Lab Routine Essential hypertension Expected: 06/25/2024, Expires: 06/25/2025 documented as of this encounter Procedures Procedure Name Priority Date/Time Associated Diagnosis Comments BASIC METABOLIC PANEL Today 06/24/2024 8:34 AM CDT Essential hypertension documented in this encounter Results * BASIC METABOLIC PANEL (06/24/2024 8:34 AM CDT) GLUCOSE CANCELED mg/dL [facility] 1 Comment: Test not performed. ??Serum was in contact with cells when received which will make the result inaccurate. Result canceled by the ancillary. BUN 18 8 - 27 mg/dL [facility] 1 CREATININE S/P/B 0.68 0.57 - 1.00 mg/dL [facility] 1 GFR ESTIMATE 91 >59 mL/min/1.7 3 [facility] 1 BUN CREATININE RATIO 26 12 - 28 [facility] 1 SODIUM S/P/B 141 134 - 144 mmol/L [facility] 1 POTASSIUM S/P/B CANCELED mmol/L [facility] 1 Comment: Test not performed. ??Serum was in contact with cells when received which will make the result inaccurate. Result canceled by the ancillary. CHLORIDE S/P/B 103 96 - 106 mmol/L [facility] 1 CO2 23 20 - 29 mmol/L [facility] 1 CALCIUM S/P/B 9.2 8.7 - 10.3 mg/dL [facility] 1 06/24/2024 8:34 AM CDT 06/24/2024 Narrative [facility] - 06/25/2024 5:06 AM CDT Performed at: ??01 - [facility] [address], [place], [place] ??[id number] Team Leader: Suresh Rodriguez PhD, Phone: ??[phone] us Tony Agarwal MD LABORATORY Edited R esult - Final [facility] [address] [place] [address] [facility] 1 documented in this encounter Visit Diagnoses Diagnosis Polyneuropathy, peripheral sensorimotor axonal- Primary Other specified idiopathic peripheral neuropathy Essential hypertension Unspecified essential hypertension Gastroesophageal reflux disease without esophagitis Esophageal reflux Anxiety state Anxiety state, unspecified JERSON (generalized anxiety disorder) Generalized anxiety disorder Hypertensive heart disease with chronic systolic congestive heart failure ([facility]) Chronic heart failure with preserved ejection fraction ([facility]) Moderate persistent asthma without complication ([facility]) Unspecified asthma Mixed hyperlipidemia Paroxysmal atrial fibrillation ([facility]) Atrial fibrillation Systemic lupus erythematosus, unspecified SLE type, unspecified organ involvement status ([facility]) documented in this encounter Additional Health Concerns Assessment Noted Time PHQ-9 Depression Total Score: 1 04/03/20 23 3:30 PM CDT documented as of this encounter Care Teams Car Hostler Relationship Specialty Start Date End Date Tony Agarwal MD [address] [address] PCP - General FAMILY PRACTICE 06/09/24 [place] [id number] [address] RHEUMATOLOGY 09/27/20 documented as of this encounter
--- OUTSIDE RECORDS SUMMARY | 2024-08-29 09:50 | XMS_ITS | Encounter Summary ---
Author Organization [facility] Address [facility]. [place], [place] [address] [place] [id number] Care Team Providers Care Probate Judge Name Role Phone Gladis Song MD Unavailable Emily Jordan MD Primary Care Provider + Reason for Visit * Reason Comments Stress Test (SCAN) Encounter Details Date Type Department Care Team (Late Contact Info) Description 07/17/2024 Scan HEALTH INFO [facility] Scanned, Doc Med Group Stress Test (SCAN) Social History Tobacco Use Types Packs/Day Years [...] on file Legal Sex Female 10:22 PM COMMERCIAL LEASE ADMINISTRATOR Gender Identity Female 09/12/2021 9:51 AM COMMERCIAL LEASE ADMINISTRATOR Sexual Orientation Straight 09/12/2021 9 :51 AM COMMERCIAL LEASE ADMINISTRATOR documented as of this encounter Plan of Treatment Upcoming Encounters Date Type Department Care Team ([facility] Contact Info) Description 10/02/2024 11:40 AM COMMERCIAL LEASE ADMINISTRATOR Office Visit [facility] Medical [facility] Multispecialty Care - [address], [address] [place] [address] Johnnie Lr MD [address] [facility] [address] [place] [address] 01/04/2025 9:50 AM CDT Office Visit [facility] Medical Group Family Medicine - [place] [address] [place], [place] [address] Emily Jordan MD [address] [place] [address] documented as of this encounter Procedures Procedure Name Priority Date/Time Associated Diagnosis Comments STRESS TEST (SCAN ORDER) 07/17/2024 documented in this encounter Results * STRESS TEST (SCAN ORDER) (07/17/2024) 07/17/2024 us Doc Med Group Scanned SCANNING Final Resu lt documented in this encounter Visit Diagnoses Not on filedocumented in this encounter Additional Health Concerns Assessment Noted Time PHQ-9 Depression Total Score: 1 04/03/20 23 3:30 PM CDT documented as of this encounter Care Teams Probate Judge Relationship Specialty Start Date End Date Emily Jordan MD [address] [place] [id number] PCP - General FAMILY PRACTICE 06/09/24 [place] [address] [facility] [place] [address] RHEUMATOLOGY 09/27/20 documented as of this encounter
--- OUTSIDE RECORDS SUMMARY | 2024-08-29 09:50 | XMS_ITS | Encounter Summary ---
Author Organization [facility] Address [facility] [place] [address] [place] [address] Care Team Providers Care Planer Setter Name Role Phone Gladis Song MD Unavailable Emily Jordan MD Primary Care Provider + Encounter Details Date Type Department Care Team (Latest Contact Info) Description 06/09/2024 Travel Social History Tobacco Use Types Packs/Day [...] on file Legal Sex Female 10:22 PM NAPRAPATH Gender Identity Female 09/12/2021 9:51 AM NAPRAPATH Sexual Orientation Straight 09/12/2021 9: 51 AM NAPRAPATH documented as of this encounter Plan of Treatment Upcoming Encounters Date Type Department Care Team (Late st Contact Info) Description 10/02/2024 11:40 AM NAPRAPATH Office Visit [facility] Medical Group Multispecialty Care - [address], [address] [place] [address] Johnnie Lr MD [address] [facility] [address] [place] [address] 01/04/2025 9:50 AM CDT Office Visit [facility] Medical Group Family Medicine - [place] [address] [place] [address] Emily Jordan MD [address] [place] [phone] documented as of this encounter Visit Diagnoses Not on filedocumented in this encounter Additional Health Concerns Assessment Noted Time PHQ-9 Depression Total Score: 1 04/03/20 23 3:30 PM CDT documented as of this encounter Care Teams Planer Setter Relationship Specialty Start Date End Date Emily Jordan MD [address] [place] [id number] PCP - General FAMILY PRACTICE 06/09/24 [place] [id number] [facility]. [facility] [address] [place] [address] RHEUMATOLOGY 09/27/20 documented as of this encounter
--- OUTSIDE RECORDS SUMMARY | 2024-08-29 09:50 | XMS_ITS | Clinical Summary ---
Author Organization [facility] Address [facility] [place] [address] [place] [address] Care Team Providers Care Thermal Technician Name Role Phone Gladis Song MD Unavailable Emily Jordan MD Primary Care Provider + Allergies Active Allergy Reactions Criticality Noted Date Comments Latex Rash Medium 04/25/2020 Levofloxacin Headache,Nausea Only Low 04/25/2020 Nitrofurantoin Headache Low 04/25/2020 Sulfa Antibiotics Swelling Medium 07/29/2013 Medications atorvastatin 80 MG tablet TAKE 1 TABLET BY MOUTH EVERY DAY 05/26/20 19 Active nitroglycerin 0.4 MG SL tablet As needed 05/23/20 18 Active vitamin D3, cholecalciferol, 125 mcg capsule 1 capsule (125 mcg total) daily. 12/01/19 15 Active Calcium Carbonate Antacid (CALCIUM CARBONATE OR) Take 600 mg by mouth daily. Active vitamin C 1000 MG tablet Take 1 tablet (1,000 mg total) by mouth daily. Active ELIQUIS 5 MG tablet Take 1 tablet (5 mg total) by mouth 2 (two) times daily. 06/22/20 22 Active isosorbide mononitrate ER (IMDUR) 30 MG 24 hr tabletIndication s:Essential hypertension Take 1 tablet (30 mg total) by mouth daily. 30 tablet 10/19/19 23 Active empagliflozin (JARDIANCE) 10 MG tablet Take 1 tablet (10 mg total) by mouth daily. 06/21/20 23 Active brimonidine (ALPHAGAN) 0.2 % ophthalmic solution INSTILL 1 DROP INTO BOTH EYES 3 TIMES A DAY 10/31/19 24 Active triamcinolone (KENALOG) 0.1 % creamIndications :Allergic dermatitis Apply topically 2 (two) times daily. 15 g 1 11/11/19 24 Active fluticasone furoate-vilanter ol (BREO ELLIPTA) 100-25 MCG/ACT inhalerIndicatio ns:Mild persistent asthma without complication (HHS/HCC) Inhale 1 puff into the lungs daily. Rinse and spit after use 180 each 3 03/25/20 24 Active albuterol sulfate HFA 108 (90 Base) MCG/ACT inhalerIndicatio ns:Shortness of breath Inhale 2 puffs into the lungs every 4 (four) hours as needed for Wheezing. 18 g 3 03/25/20 24 Active methotrexate (TREXALL) 2.5 MG tablet Per rheumatology 06/09/20 24 Active bisoprolol (ZEBETA) 5 MG tablet Take 1 tablet (5 mg total) by mouth daily. 06/09/20 24 Active pantoprazole EC (PROTONIX) 40 MG tabletIndication s:Gastroesophage al reflux disease without esophagitis Take 1 tablet (40 mg total) by mouth daily. 90 tablet 3 06/09/20 24 Active PARoxetine (PAXIL) 20 MG tabletIndication s:Anxiety state Take 1 tablet (20 mg total) by mouth daily. 90 tablet 3 06/09/20 24 025 Active pregabalin (LYRICA) 50 MG capsuleIndicatio ns:Polyneuropath y, peripheral sensorimotor axonal Take 1 capsule (50 mg total) by mouth 2 (two) times daily. 180 capsule 3 07/07/20 24 025 Active amoxicillin-clav ulanate (AUGMENTIN) 875-125 MG tabletIndication s:Acute bacterial sinusitis Take 1 tablet (875 mg total) by mouth 2 (two) times daily for 5 days. 10 tablet 08/06/20 24 024 Active Problems Problem Noted Date Diagnosed Date Polyneuropathy, peripheral sensorimotor axonal 1 Overview (07/07/2024): 2/2 SLE. Sees neurology. Picked up the Lyrica but has not yet tried it. She thought perhaps it was to manage her leg cramping which is resolved with discontinuation of potassium. She continues to have a sense of numbness in the feet and feeling like stones in her shoes. Assessment & Plan (07/07/2024 10:09 AM DIETARY CLERK): Not yet controlled. Encouraged her to start Lyrica which should help manage symptoms adequately. Assessment & Plan (06/09/2024 11:31 AM CDT): Not controlled. Trial pregabalin. History of colon cancer 07/22/2023 Mild neurocognitive disorder 10/19/2022 Overview (06/09/2024): Forgets instructions easily. Good memory from the past. Sacroiliac joint dysfunction of both sides 05/20 Essential hypertension 04/26/2020 Overview (06/09/2024): Patient takes isosorbide mononitrate, bisoprolol. Did not tolerate otherbeta blockers. Hypertensive heart disease w ith chronic systolic congestive heart failure ([facility] 06/01/2019 Overview (04/25/2020): Last Assessment & Plan: On appropriate medical therapy. Continue medical therapy. Atherosclerosis of coronary artery 11/21/2018 Overview (06/09/2024): Mild coronary artery disease 20-30% narrowing in the circumflex and right coronar artery from 05/2018. No prior stents or bypass. On appropriate medical therapy. Continue medication. Heart failure with preserved ejection fraction ([facility]) 11/21/2018 Overview (06/09/2024): LVEDP was 22 from cardiac catheterization in May of 2018. Followed by Cardiology. On appropriate medical therapy including SGLT2. She did have recent UTI and yeast infection. Stable at this time. Continue current therapy. Patient was on furosemide until recently which was discontinued after urgent care visit for not feeling well. Assessment & Plan (06/09/2024 11:35 AM CDT): Stable. Await records. Recommend that since she stopped her furosemide she should also stop her potassium supplementation. Ordered BMP. Discussed correlation of UTI and yeast infection with SGLT2 use and she will monitor for recurrence of symptoms. History of arterial ischemic stroke 05/21/2018 Overview (06/09/2024): Acute ischemic stroke in March 2016 and multiple prior TIAs.Also with history of subcortical strokes. Patient continues on anti-platelet therapy. Will continue on the medication. Blood pressure is under good control. Mixed hyperlipidemia 05/21/2018 Overview (06/09/2024): Takes atorvastatin 80 mg daily. Tolerates well. Assessment & Plan (06/09/2024 11:34 AM CDT): CMP and lipid panel reviewed and at goal. Continue atorvastatin. Paroxysmal atrial fibrillation ([facility]) 05/21/2018 Overview (06/09/2024): On Eliquis for CVA prophylaxis. Did not tolerate several beta-blockers but is now on bisoprolol for rate control. Assessment & Plan (06/09/2024 11:33 AM CDT): Rate controlled on bisoprolol and anticoagulated with Eliquis. Stable. Followed by cardiology. Obstructive sleep apnea syndrome 08/01/2016 Overview (06/09/2024): Stopped CPAP after she noted didn't tolerate. Intended to get rechecked but did not pursue. Generalized osteoarthritis 07/17/2016 Patent foramen ovale ([facility]) 04/13/2016 Overview (06/09/2024): Patent foramen ovale. RoPE score of 2 with low likelihood of contribution to TIAs. Therefore, PFO closure has not been recommended Moderate persistent asthma without complication ([facility]) 07/12/2015 Overview (06/09/2024): Patient takes Breo Ellipta, albuterol. Sees Dr. Lr. Goes days without albuterol. Has not needed singulair for some time. Assessment & Plan (06/09/2024 11:33 AM CDT): Controlled. Continue Breo Ellipta and albuterol. Prediabetes 06/03/2015 Overview (06/09/2024): Last A1c 5.9%. Late, effect, cerebrovascular disease 06/03/2015 Overview (06/09/2024): Minimal residual, was left sided weakness. JEET (generalized anxiety disorder) 01/16/2014 Overview (06/09/2024): She reduced her Paxil to 20 mg daily. Stable at this time. Assessment & Plan (06/09/2024 11:35 AM CDT): Controlled on reduced dose. Encouraged her to continue on this lower dose. Gastroesophageal reflux disease 01/16/2014 Overview (06/09/2024): Takes pantoprazole. If she skips a dose, she has bad heartburn. Assessment & Plan (06/09/2024 11:33 AM CDT): Controlled. Continue pantoprazole. Also serves as prophylaxis due to anticoagulation. Osteopenia 01/16/2014 Overview (04/25/2020): osteopenia Last Assessment & Plan: Time to repeat DEXA (5 years) -- ordered. Systemic lupus erythematosus ([facility]) 0 01/16/2014 Overview (06/09/2024): Sees rheumatolgoy. Stable, no signs of flare. Continues on MTX. Has caused polyneuropathy. Tremor 01/29/2013 Overview (06/09/2024): Right hand. She is also right handed. Resolved Problems Problem Noted Date Diagnosed Date Resolved Date Encounter for screening for malignant neoplasm of colon 07/23/2023 07/29/2023 Encounter for screening for malignant neoplasm of colon 07/23/2023 09/23/2023 Breast cancer screening by mammogram 04/26/2020 05/13/2020 Encounters Date Type Department Care Team Description 08/22/2024 Scan [facility] Scanned, [facility] Lab (SCAN) 08/06/2024 11:10 AM DIETARY CLERK Office Visit [address] [place] [address] Emily Jordan MD Sinus Problem (Onset- Thanksgiving. ); Sore Throat (Really sore, feels like she is choking. Drainage down her throat. Onset- yest. ) 08/06/2024 Travel 07/20/2024 Scan [facility] SRVCS Scanned, [facility] 07/17/2024 Scan [facility] Scanned, [facility] Stress Test (SCAN) 07/14/2024 Scan [facility] Scanned, [facility] 07/07/2024 9:30 AM DIETARY CLERK Office Visit [address] [place] [address] Emily Jordan MD Follow Up (4 Wk check /medication/ discuss lab results. ) 07/07/2024 Travel 06/26/2024 Orders Only [address] [place] [address] Monserrat Wilson NP 06/25/2024 Orders Only [address] [place] [address] Emliy Jordan MD 06/09/2024 10:30 AM CDT Office Visit [address] [place] [address] Emily Jordan MD New Patient (Transfer from [facility]) 06/09/2024 Travel 06/01/2024 12:43 PM CDT - 06/01/2024 11:59 PM CDT Hospital Encounter [facility] [address] [place] [address] Henrry Rodriguez MD Suthan, Sambasivam, MD Discharge Disposition: Home or Self Care (Routine Discharge) 06/01/2024 9:10 AM CDT Laboratory Only [facility] Medical Group Family & Internal Medicine [facility] [address] [place] [address] Thi Lugo MD 06/01/2024 Travel from Last 3 Months Immunizations Name Administration Dates Next Due Flublok (RIV3, Trivalent, 0.5mL) 05/28/2014 Fluzone High Dose (IIV, triv alent, 0.5mL) 07/13/2024 Fluzone High Dose - >Age 65 (Prefilled Syringe) 08/23/2023,07/06/2022,07/18/2021,2019,05/30/2020 Influenza (Generic) 05/03/2017, 5,05/21/2013,2011,06/05/2011,06/28/2009 Influenza Adult (Generic) 06/02/2019,09/2017,05/15/2017,2015,07/13/2016,05/28/2014 MODERNA COVID-19 (12+) MRNA, LNP-S, PF, 100 MCG/ 0.5 ML DOSE 11/18/2020,10/21/2020 PFIZER COVID-19 (ORIGINAL FORMULATION, PURPLE CAP) mRNA, LNP-S, PF, 30 MCG/0.3 ML DOSE 08/07/2021 PFIZER COVID-19 BIVALENT (12 +) mRNA, LNP-S, PF, 30 MCG/0.3 ML DOSE 07/06/2022 Pneumococcal (Pneumovax 23) 05/28/2014 Pneumococcal (Prevnar 13) 05/22/2017 Shingrix 06/29/2024,04/27/2024 Family History Medical History Relation Comments TB Father lungs Father Heart Disease Mother Relation Status Comments Father Mother Social History Tobacco Use Types Packs/Day Years [...] on file Legal Sex Female 10:22 PM DIETARY CLERK Gender Identity Female 09/12/2021 9:51 AM DIETARY CLERK Sexual Orientation Straight 09/12/2021 9: 51 AM DIETARY CLERK Last Filed Vital Signs Vital Sign Reading Time Taken Comments Blood Pressure 110/80 08/06/2024 11:12 AM DIETARY CLERK Pulse 70 08/06/2024 11:12 AM DIETARY CLERK Temperature 36.8 ??C (98.3 ??F) 08/06/2024 11:[address] Respiratory Rate 18 07/07/2024 9:39 AM DIETARY CLERK Oxygen Saturation 98% 08/06/2024 11:12 AM DIETARY CLERK Inhaled Oxygen Concentration - - Weight 62.1 kg (137 lb) 08/06/2024 11:12 AM DIETARY CLERK Height 151.8 cm (4' 11.75 ) 08/06/2024 11:12 AM DIETARY CLERK Body Mass Index 26.98 08/06/2024 11:12 AM DIETARY CLERK Plan of Treatment Upcoming Encounters Date Type Department Care Team (Late st Contact Info) Description 10/02/2024 11:40 AM DIETARY CLERK Office Visit [facility] [address] [place] [id number] Johnnie Lr MD [address] [place] [address] 01/04/2025 9:50 AM CDT Office Visit [facility] Medical Group Family Medicine - [place] [address] [place], [place] [id number] Emily Jordan MD [address] [place], [place] [id number] Health Maintenance Due Date Last Done Comments Hepatitis C 1968 DTaP, Tdap and Td Vaccines (1 - Tdap) 1969 Annual Medicare Wellness Visit 09/28/2021 09/27/2020 RSV Immunization or 60+ Years (1 - 1-dose 75+ series) 2023 COVID-19 Vaccine (5 - season) 2024 07/06/2022, 08/07/2021, 11/18/2020, Additional history exists ASCVD Statin 02/01/2025 Postponed from 1948 (Per Provider Recommendation) Colorectal Cancer Screening Colonoscopy (10 Years) 09/18/2033 09/18/2023 Pneumococcal Vaccine: 65+ Years Completed 05/22/2017, 05/28/2014 Dexa Scan (General) Completed 05/15/2021, 8 Zoster Vaccines Completed 06/29/2024, 04/27/2024 Influenza Adult Completed 07/13/2024, 08/03, 07/06/2022, Additional history exists Meningococcal Vaccine Aged Out No ana humberto eligible based on patient's age to complete this topic RSV Immunizations Under 20 Months Aged Out No longer eligible based on patient's age to complete this topic Medical Devices Implanted Type Area Supervisor Instrument Repair Device Identifier Shelf Expiration Date Model / Serial / Lot Iol Tecnis Simplicity Dcb00 - [id number] Implanted:Qty: 1 on 04/23/2022 by Bryan Oshea MD at [facility] Lens Left: Eye [employer] [id number] 11/14/2024 DCB00 / [id number] / Iol [employer] Pcb00 - [id number] Implanted:Qty: 1 on 05/28/2022 by Bryan Oshea MD at [facility] Lens Right: Eye [employer] [id number] 10/02/2022 PCB00 / [id number] / Procedures Procedure Name Priority Date/Time Associated Diagnosis Comments OUTSIDE LAB (SCAN ORDER) 08/22/2024 OUTSIDE LAB (SCAN ORDER) 08/22/2024 STREP A RAPID Routine 08/06/2024 Sore throat STRESS TEST (SCAN ORDER) 07/17/2024 POTASSIUM, SERUM 06/26/2024 10:0 1 AM CDT BASIC METABOLIC PANEL Today 06/24/2024 8:34 AM CDT Essential hypertension VENIPUNC ARM DRAW Routine 06/01/2024 9:0 3 AM CDT Tiredness Encounter for routine history and physical examination of adult Vitamin D deficiency COMPREHENSIVE METABOLIC PANEL Routine 06/01/2024 9:02 AM CDT Tiredness LIPID PANEL Routine 06/01/2024 9:02 AM CDT Encounter for routine history and physical examination of adult TSH W/REFLEX Routine 06/01/2024 9:02 AM CDT Tiredness CBC W/DIFF AUTOMATED Routine 06/01/2024 9:02 AM CDT Tiredness VITAMIN D, 25 OH Routine 06/01/2024 9:02 AM CDT Tiredness Vitamin D deficiency BONE DENSITY/DEXA Routine 05/15/2021 3:1 9 PM CDT Age-related osteoporosis without current pathological fracture from Last 3 Months or Most Recently Relevant to Health Maintenance Results * OUTSIDE LAB (SCAN ORDER) (08/22/2024) Only the most recent of2 resultswithin the time period is included. 08/22/2024 us [facility] Scanned SCANNING Final Resu lt * STREP A RAPID (08/06/2024) RAPID STREP TEST NEGATIVE NEGATIVE [address] [place] Comment:per no need for strep culture Internal Control: VALID VALID [address] [place] STRUCTURE OF ANTERIOR PORTION OF NECK / Unknown 08/06/2024 us Emily Jordan MD MICROBIOLOGY - GENERAL O RDERABLES Final Result [address] [place] [address] [facility] [address] [place] [address], * STRESS TEST (SCAN ORDER) (07/17/2024) 07/17/2024 [facility] Scanned SCANNING Final Resu lt * POTASSIUM, SERUM (06/26/2024 10:01 AM CDT) POTASSIUM S/P/B 4.3 3.5 - 5.2 mmol/L [facility] 1 06/26/2024 10:0 1 AM CDT 06/26/2024 Narrative [facility] - 06/27/2024 7:07 AM CDT Performed at: ??01 - [facility] [address] ??[id number] Special Events Coordinator: Suresh Rodriguez PhD, Phone: ??[phone] Monserrat Wilson NP LABORATORY Final Res ult [facility] [address] [place] [address] [facility] 1 * BASIC METABOLIC PANEL (06/24/2024 8:34 AM [...] AM CDT Performed at: ??01 - [facility] [address] ??[id number] Special Events Coordinator: Suresh Rodriguez PhD, Phone: ??[phone] Emily Jordan MD LABORATORY Edited R toni - Final Performing Organization Address City/[facility]/ZIP Co de Phone Number [facility] [address] [place] [address] [facility] 1 * TSH W/REFLEX (06/01/2024 9:02 AM CDT) TSH 1.969 0.358 - 3.74 uIU/ML 06/01/2024 2:43 PM CDT [facility] Comment: HIGH DOSES OF BIOTIN MAY INTERFERE WITH THIS TEST RESULT. CORRELATION TO CLINICAL HISTORY AND PRESENTATION RECOMMENDED. FREE T4 NOT INDICATED 06/01/2024 9:02 AM CDT Shun Mora MD LABORATORY Final Resul t Performing Organization Address City/[facility]/ZIP Co de Phone Number [facility] [address] [place] [address], [place] [phone] * (ABNORMAL) COMPREHENSIVE METABOLIC PANEL (06/01/2024 9:02 AM CDT) GLUCOSE 97 70 - 99 MG/DL 06/01/2024 2:43 PM CDT [facility] BUN 21(H) 7 - 18 MG/DL 06/01/2024 2:43 PM CDT [facility] CREATININE S/P/B 0.69 0.55 - 1.02 MG/DL 06/01/2024 2:43 PM [facility] SODIUM S/P/B 143 136 - 145 MMOL/L 06/01/2024 2:43 PM T [facility] POTASSIUM S/P/B 4.7 3.5 - 5.1 MMOL/L 06/01/2024 2:43 PM T [facility] CHLORIDE S/P/B 107 100 - 108 MMOL/L 06/01/2024 2:43 PM T [facility] CO2 28.9 21 - 32 MMOL/L 06/01/2024 2:43 PM [facility] CALCIUM S/P/B 8.9 8.5 - 10.1 MG/DL 06/01/2024 2:43 PM T [facility] BILIRUBIN TOTAL S/P/B 0.6 0.2 - 1.2 MG/DL 06/01/2024 2:43 PM [facility] TOTAL PROTEIN S/P/B 6.5 6.4 - 8.2 G/DL 06/01/2024 2:43 PM [facility] ALBUMIN S/P/B 3.4 3.4 - 5.0 G/DL 06/01/2024 2:43 PM T [facility] AST 27 15 - 37 U/L 06/01/2024 2:43 PM [facility] ALT 34 14 - 55 U/L 06/01/2024 2:43 PM [facility] ALKALINE PHOSPHATASE S/P/B 84 50 - 136 U/L 06/01/2024 2:43 PM [facility] ANION GAP 7.1 5 - 15 MMOL/L 06/01/2024 2:43 PM CDT [facility] BUN CREATININE RATIO 30.4(H) 6 - 26 06/01/2024 2:43 PM CDT [facility] A/G RATIO 1.1 1.0 - 2.0 RATIO 06/01/2024 2:43 PM CDT [facility] GFR ESTIMATE >90 >90 ML/MIN/1.7 3 M2 06/01/2024 2:43 PM T [facility] Comment: NOTE: eGFR is not calculated for patients <18 years of age. This is an estimated GFR calculation using the new CKD EPI creatinine equation without race and so does not require a correction factor for race. This estimated GFR should not be used for calculating drug doses. 06/01/2024 9:02 AM CDT Shun Mora MD LABORATORY Final Resul t [facility] [address] [place] [address], * LIPID PANEL (06/01/2024 9:02 AM CDT) CHOLESTEROL 144 <200.0 MG/DL 06/01/2024 2:43 PM CDT [facility] TRIGLYCERIDES 72 <150 MG/DL 06/01/2024 2:43 PM CDT [facility] HDL 53 >40.0 MG/DL 06/01/2024 2:43 PM CDT [facility] LDL (CALCULATED) 77 <100 MG/DL 06/01/20 2:43 PM CDT [facility] NON HDL CHOLESTEROL 91 <130 MG/DL 06/01 2:43 PM CDT [facility] CHOL/HDL RATIO 2.7 0.0 - 4.5 06/01/2024 2:43 PM CDT [facility] VLDL CALCULATION 14 5 - 55 MG/DL 06/01/2024 2:43 PM CDT [facility] LIPID INTERPRETATION 06/01/2024 2:43 PM CDT [facility] Comment: NIH CONCENSUS REPORT [...] ? >=160 ?>=130 06/01/2024 9:02 AM CDT Shun Mora MD LABORATORY Final Resul t [facility] [address] [place] [address], * (ABNORMAL) CBC W/DIFF AUTOMATED (06/01/2024 9:02 AM CDT) WBC 4.88 4.4 - 11.0 x10'3/uL 06/01/2024 1:37 PM CDT [facility] RBC 4.76 4.50 - 5.10 x10'6/uL 06/01/2024 1:37 PM CDT [facility] HGB 13.7 12.3 - 15.3 G/DL 06/01/2024 1:37 PM CDT [facility] HCT 44.6 35.9 - 44.6 % 06/01/2024 1:37 PM CDT [facility] MCV 93.7 80.0 - 96.0 FL 06/01/2024 1:37 PM CDT [facility] MCH 28.8 25.3 - 30.9 PG 06/01/2024 1:37 PM CDT [facility] MCHC 30.7(L) 31.0 - 34.1 G/DL 06/01/2024 1:37 PM CDT [facility] RDW 17.7(H) 12.4 - 15.1 % 06/01/2024 1:37 PM CDT [facility] PLT 242 151 - 353 x10'3/uL 06/01/2024 1:37 PM CDT [facility] MPV 10.5 9.6 - 12.0 FL 06/01/2024 1:37 PM CDT [facility] RBC MORPHOLOGY NORMAL 06/01/2024 1:37 PM CDT [facility] PLT MORPH. NORMAL 06/01/2024 1:37 PM CDT [facility] WBC MORPHOLOGY NORMAL 06/01/2024 1:37 PM CDT [facility] LYMPHOCYTES % 32.0 15.8 - 45.0 % 06/01/2024 1:37 PM CDT [facility] NEUTROPHILS % 47.0 42.1 - 71.9 % 06/01/2024 1:37 PM CDT [facility] MONOCYTES % 14.5(H) 5.7 - 12.5 % 06/01/2024 1:37 PM CDT [facility] EOSINOPHILS 4.9 0.0 - 5.6 % 06/01/2024 1:37 PM CDT [facility] BASOPHILS 1.4(H) 0.0 - 1.3 % 06/01/2024 1:37 PM CDT [facility] ABS. NEUTROPHILS 2.29 1.40 - 6.00 x10'3/uL 06/01/2024 1:37 PM CDT [facility] IMMATURE GRANS % 0.2 0.0 - 0.5 % 06/01/2024 1:37 PM CDT [facility] ABS. LYMPHOCYTES 1.56 0.80 - 4.70 x10'3/uL 06/01/2024 1:37 PM CDT [facility] 06/01/2024 9:02 AM CDT us Shun Mora MD LABORATORY Final Resul t [facility] [address] [place] [address], * VITAMIN D, 25 OH (06/01/2024 9:02 AM CDT) VITAMIN D 25 HYDROXY S/P/B 35 30 - 100 NG/ML 06/01/2024 2:31 PM CDT [facility] Comment: ? INTERPRETATION ? DEFICIENT ??<20 ? INSUFFICIENT 20-29 ?SUFFICIENT 30-100 06/01/2024 9:02 AM CDT Shun Mora MD LABORATORY Final Resul t [facility] [address] [place] [address], * BONE DENSITY/DEXA (05/15/2021 3:19 PM CDT) Anatomical Region Laterality Modality Bone Bone Density 05/15/2021 4:01 PM CDT Impressions 05/15/2021 4:02 PM CDT FINDINGS AND IMPRESSION: Examination performed on a [employer] Discovery SL .: LUMBAR SPINE L2-L4: 1. BMD: 0.889 g/cm2. 2. T score: -1.7. ??Previous T score: No previous available. 3. WHO classification: Moderate osteopenia. 4. Fracture risk: Low. LEFT FEMORAL NECK: 1. BMD: 0.754 g/cm2. 2. T score: -0.9. Previous T score: No previous available. 3. WHO classification: Below normal young adult range. 4. Fracture risk: Very low. Recommendations: Recommend therapy and follow up to assess response. Voice recognition software utilized. Referred By: MAJO HOPE Interpreted By: Kike Garcia, 05/15/2021 4:01 PM Narrative 05/15/2021 4:02 PM CDT Examination: BONE DENSITY/DEXA Exam date/time: 05/15/2021 3:19 PM CLINICAL HISTORY: ??Postmenopausal status, screening . COMPARISON STUDIES: No previous available. ?? Procedure Note Kike Garcia MD - 05/15/2021 Examination: BONE DENSITY/DEXA Exam date/time: 05/15/2021 3:19 PM CLINICAL HISTORY: Postmenopausal status, screening . COMPARISON STUDIES: No previous available. FINDINGS AND IMPRESSION: Examination performed on a [employer] SL .: LUMBAR SPINE L2-L4: 1. BMD: 0.889 g/cm2. 2. T score: -1.7. Previous T score: No previous available. 3. WHO classification: Moderate osteopenia. 4. Fracture risk: Low. LEFT FEMORAL NECK: 1. BMD: 0.754 g/cm2. 2. T score: -0.9. Previous T score: No previous available. 3. WHO classification: Below normal young adult range. 4. Fracture risk: Very low. Recommendations: Recommend therapy and follow up to assess response. Voice recognition software utilized. Referred By: MAJO HOPE Interpreted By: Kike Garcia, 05/15/2021 4:01 PM Majo Hope MD DEXA Final Result from Last 3 Months or Most Recently Relevant to Health Maintenance Insurance [employer] Care Teams Thermal Technician Relationship Specialty Start Date End Date Emily Jordan MD [address] [facility] [address] [place] [id number] PCP - General FAMILY PRACTICE 06/09/24 [place] [address] [facility] [address] RHEUMATOLOGY 09/27/20
--- OUTSIDE RECORDS SUMMARY | 2024-08-29 09:51 | XMS_ITS | Encounter Summary ---
Author Organization [facility] Address [address] [place] [address]. [place] [address] [place] [address] Care Team Providers Care Juvenile Counselor Name Role Phone Gladis Song MD Unavailable Thi Lugo MD Primary Care Provider [phone] Reason for Visit * Reason Onset Date Comments ER F/U 05/11/2024 Encounter Details Date Type Department Care Team (Late st Contact Info) Description 05/11/2024 Patient Outreach [facility] Family & Internal Medicine [address] [address] Monique Burks, STATION [employer] [address] [place] [address] ER F/U Social History Tobacco Use Types Packs/Day Years [...] on file Legal Sex Female 10:22 PM COLOR FINISHER Gender Identity Female 09/12/2021 9:51 AM COLOR FINISHER Sexual Orientation Straight 09/12/2021 9: 51 AM COLOR FINISHER documented as of this encounter Progress Notes * JUJU Rothman - 05/11/2024 1:49 PM CDT Left voicemail for patient in regards to ED follow-up. Will attempt to contact patient again at a later time. * JUJU Rothman - 05/11/2024 1:49 PM CDT Left Vm X2. * JUJU Rothman - 05/11/2024 1:49 PM CDT Left Vm X3.Will conclude outreach at this time. documented in this encounter Plan of Treatment Upcoming Encounters Date Type Department Care Team (Late st Contact Info) Description 10/02/2024 11:40 AM COLOR FINISHER Office Visit [facility] Multispecialty Care - [facility] [address] [facility] [address] [place] [address] Johnnie Lr MD [address] [facility] [address] [place] [address] 01/04/2025 9:50 AM CDT Office Visit [facility] Family Medicine - [place] [address] [place] [id number] Emily Jordan MD [address] [place], [place] [address] documented as of this encounter Visit Diagnoses Not on filedocumented in this encounter Additional Health Concerns Assessment Noted Time PHQ-9 Depression Total Score: 1 04/03/20 23 3:30 PM CDT documented as of this encounter Care Teams Juvenile Counselor Relationship Specialty [place] [address] [facility] [place] [address] PCP - General FAMILY PRACTICE 09/29/21 06/08/24 [place] [address] [facility]. [address] [address] RHEUMATOLOGY 09/27/20 documented as of this encounter
--- OUTSIDE RECORDS SUMMARY | 2024-08-29 09:51 | XMS_ITS | Encounter Summary ---
Author Organization [facility] Address [facility] [place] [address] [place] [address] Care Team Providers Care Dietary Manager Name Role Phone Gladis Song MD Unavailable Thi Lugo MD Primary Care Provider [phone] Encounter Details Date Type Department Care Team (Latest Contact Info) Description 05/22/2024 Travel Social History Tobacco Use Types Packs/Day [...] on file Legal Sex Female 10:22 PM CURRENCY EXCHANGE SPECIALIST Gender Identity Female 09/12/2021 9:51 AM CURRENCY EXCHANGE SPECIALIST Sexual Orientation Straight 09/12/2021 9: 51 AM CURRENCY EXCHANGE SPECIALIST documented as of this encounter Plan of Treatment Upcoming Encounters Date Type Department Care Team (Late st Contact Info) Description 10/02/2024 11:40 AM CURRENCY EXCHANGE SPECIALIST Office Visit [facility] Multispecialty Care - [address], [address] [place] [address] Johnnie Lr MD [address] [facility] [address] [place] [address] 01/04/2025 9:50 AM CDT Office Visit [facility] Family Medicine - [place] [address] [place] [address] Emily Jordan MD [address] [place] [address] documented as of this encounter Visit Diagnoses Not on filedocumented in this encounter Additional Health Concerns Assessment Noted Time PHQ-9 Depression Total Score: 1 04/03/20 23 3:30 PM CDT documented as of this encounter Care Teams Dietary Manager Relationship Specialty [place] [address] [facility] [place] [address] PCP - General FAMILY PRACTICE 09/29/21 06/08/24 [place] [address] [facility]. [address] [place] [address] RHEUMATOLOGY 09/27/20 documented as of this encounter
--- OUTSIDE RECORDS SUMMARY | 2024-08-29 09:51 | XMS_ITS | Encounter Summary ---
Author Organization [facility] Address [address] [place] [address]. [place] [address] [place] [address] Care Team Providers Care Haunted History Tour Guide Name Role Phone Gladis Sogn MD Unavailable Thi Lugo MD Primary Care Provider [phone] Encounter Details Date Type Department Care Team (Latest Contact Info) Description 04/27/2024 Scan HEALTH INFO SRVCS Scanned, Doc Med [...] on file Legal Sex Female 10:22 PM NUISANCE ANIMAL DAMAGE CONTROL AGENT Gender Identity Female 09/12/2021 9:51 AM NUISANCE ANIMAL DAMAGE CONTROL AGENT Sexual Orientation Straight 09/12/2021 9: 51 AM NUISANCE ANIMAL DAMAGE CONTROL AGENT documented as of this encounter Plan of Treatment Upcoming Encounters Date Type Department Care Team (Late st Contact Info) Description 10/02/2024 11:40 AM NUISANCE ANIMAL DAMAGE CONTROL AGENT Office Visit [facility] Multispecialty Care - [facility] [address] [facility] [place] [address] Johnnie Lr MD 3 [facility] [address] [place] [address] 01/04/2025 9:50 AM CDT Office Visit [facility] Family Medicine - [place] [address] [place] [address] Emily Jordan MD [address] [place], [place] [address] documented as of this encounter Visit Diagnoses Not on filedocumented in this encounter Additional Health Concerns Assessment Noted Time PHQ-9 Depression Total Score: 1 04/03/20 23 3:30 PM CDT documented as of this encounter Care Teams Haunted History Tour Guide Relationship Specialty [place] [address] [facility] [place] [address] PCP - General FAMILY PRACTICE 09/29/21 06/08/[address] [place] [address] [facility]. [facility] [address] [place] [address] RHEUMATOLOGY 09/27/20 documented as of this encounter
--- OUTSIDE RECORDS SUMMARY | 2024-08-29 09:51 | XMS_ITS | Encounter Summary ---
Author Organization [facility] Address [facility] [place] [address] [place] [address] Care Team Providers Care Vehicle Assembler Name Role Phone Gladis Song MD Unavailable Thi Lugo MD Primary Care Provider [phone] Encounter Details Date Type Department Care Team (Latest Contact Info) Description 06/01/2024 Travel Social History Tobacco Use Types Packs/Day [...] on file Legal Sex Female 10:22 PM DIRECTOR DATA ARCHITECTURE Gender Identity Female 09/12/2021 9:51 AM DIRECTOR DATA ARCHITECTURE Sexual Orientation Straight 09/12/2021 9: 51 AM DIRECTOR DATA ARCHITECTURE documented as of this encounter Plan of Treatment Upcoming Encounters Date Type Department Care Team (Late st Contact Info) Description 10/02/2024 11:40 AM DIRECTOR DATA ARCHITECTURE Office Visit [facility] Multispecialty Care - [address], [address] [place] [address] Johnnie Lr MD 3 [facility] [address] [place] [address] 01/04/2025 9:50 AM CDT Office Visit [facility] Family Medicine - [place] [address] [place] [address] Emily Jordan MD [address] [place] [address] documented as of this encounter Visit Diagnoses Not on filedocumented in this encounter Additional Health Concerns Assessment Noted Time PHQ-9 Depression Total Score: 1 04/03/20 23 3:30 PM CDT documented as of this encounter Care Teams Vehicle Assembler Relationship Specialty [place] [address] [facility] [place] [address] PCP - General FAMILY PRACTICE 09/29/21 06/08/24 [place] [address] [facility]. [address] [place] [address] RHEUMATOLOGY 09/27/20 documented as of this encounter
--- OUTSIDE RECORDS SUMMARY | 2024-08-29 09:51 | XMS_ITS | Encounter Summary ---
Author Organization [facility] Address [address] [place] [address]. [place] [address] [place] [address] Care Team Providers Care Developmental Mathematics Professor Name Role Phone Gladis Song MD Unavailable Thi Lugo MD Primary Care Provider [phone] Encounter Details Date Type Department Care Team (Latest Contact Info) Description 05/12/2024 Scan HEALTH INFO SRVCS Scanned, Doc Med [...] on file Legal Sex Female 10:22 PM BANK MANAGER Gender Identity Female 09/12/2021 9:51 AM BANK MANAGER Sexual Orientation Straight 09/12/2021 9: 51 AM BANK MANAGER documented as of this encounter Plan of Treatment Upcoming Encounters Date Type Department Care Team (Late st Contact Info) Description 10/02/2024 11:40 AM BANK MANAGER Office Visit [facility] Multispecialty Care - [facility] [address] [facility] [address] [place] [address] Johnnie Lr MD 3 [facility] [address] [place] [address] 01/04/2025 9:50 AM CDT Office Visit [facility] Family Medicine - [place] [address] [place] [address] Emily Jordan MD [address] [place], [place] [address] documented as of this encounter Visit Diagnoses Not on filedocumented in this encounter Additional Health Concerns Assessment Noted Time PHQ-9 Depression Total Score: 1 04/03/20 23 3:30 PM CDT documented as of this encounter Care Teams Developmental Mathematics Professor Relationship Specialty [place] [address] [facility]. [address] [address] PCP - General FAMILY PRACTICE 09/29/21 06/08/24 [place] [address] [facility]. [facility] [address] [place] [address] RHEUMATOLOGY 09/27/20 documented as of this encounter
--- OUTSIDE RECORDS SUMMARY | 2024-08-29 09:51 | XMS_ITS | Encounter Summary ---
Author Organization [facility] Address [facility] [place] [address] [place] [address] Care Team Providers Care Ground Service Equipment Mechanic Name Role Phone Gladis Song MD Unavailable Thi Lugo MD Primary Care Provider [phone] Reason for Referral * Imaging (Routine) - Closed Specialty Diagnoses / Procedures Referred By Valerie florian Referred To Contact RADIOLOGY Diagnoses Pulmonary nodules/lesions, multiple Procedures CT CHEST WO CON Johnnie Olmos MD [address] [address] Phone: tel: fax: Referral ID Status Reason Start Date Expiration Date Visits Re quested Visits Authorized [id number] Closed 03/25/2024 03/25/2025 1 1 Reason for Visit * Reason Comments Follow Up * Consultation/Treatment (Routine) - Closed Specialty Diagnoses / Procedures Referred By Valerie florian Referred To Contact Internal Medicine Pulmonary Disease / SLEEP & RESPIRATORY CARE Diagnoses 6 month f/u Procedures FOLLOW UP Johnnie Olmos MD [address] [address] Phone: tel: fax: Johnnie Olmos MD [address] [facility] [place] [address] Phone: tel: fax: Referral ID Status Reason Start Date Expiration Date Visits Re quested Visits Authorized [id number] Closed 03/14/2023 03/14/2024 99 99 Encounter Details Date Type Department Care Team (Late st Contact Info) Description 03/25/2024 10:00 AM CDT Office Visit [facility] Medical Group Multispecialty Care - [facility] [address] [place] [phone] Johnnie Olmos MD [address] [facility] [place], [place] [id number] Follow Up Social History Tobacco Use Types Packs/Day Years Used Date Smoking Tobacco: Never Passive Smoke Exposure: Never Smokeless Tobacco: Never Tobacco Cessation:Counseling Given: Yes Alcohol Use Standard Drinks/Week Comments Yes 0 (1 standard drink = 0.6 oz pur e alcohol) occassionally PHQ-2 Answer Date Recorded Patient Health Questionnaire-2 Score 0 02/24/2024 Comments No Sex and Gender Information Value Date Recorded Sex Assigned at Not on file Legal Sex Female 10:22 PM COMMERCIAL FIELD INSPECTOR Gender Identity Female 09/12/2021 9:51 AM COMMERCIAL FIELD INSPECTOR Sexual Orientation Straight 09/12/2021 9: 51 AM COMMERCIAL FIELD INSPECTOR documented as of this encounter Last Filed Vital Signs Vital Sign Reading Time Taken Comments Blood Pressure 94/51 03/25/2024 9:51 AM CDT Pulse 89 03/25/2024 9:51 AM CDT Temperature 36.7 ??C (98 ??F) 03/25/2024 9:51 AM CDT Respiratory Rate 18 03/25/2024 9:51 AM CDT Oxygen Saturation 96% 03/25/2024 9:51 AM CDT RA Inhaled Oxygen Concentration - - Weight 63 kg (139 lb) 03/25/2024 9:51 AM CDT Height 149.9 cm (4' 11 ) 03/25/2024 9:51 AM CDT Body Mass Index 28.07 03/25/2024 9:51 AM CDT documented in this encounter Patient Instructions * Patient Instructions* Johnnie Olmos MD - 03/25/2024 10:00 AM CDT Continue Breo 1 puff a day. Rinse and spit after use Albuterol as needed Singular [address] scan of your chest to follow-up on the lung nodules Follow-up with me in 6 months documented in this encounter Progress Notes * Johnnie Olmos MD - 03/25/2024 10:00 AM CDT [facility] PULMONARY MEDICINE History Chief Complaint Patient presents with Follow Up Referring provider: Johnnie Olmos MD 03/25/2024 OV: Overall doing very well over the past year. Rarely using her albuterol. Breo working better for her than the Arnuity. No exacerbations. 03/14/2023 OV: Overall doing well since her last visit. She has 3-4 episodes a week where she will feel short of breath and use the albuterol. Remains on Arnuity and finding it beneficial. 09/06/2022 OV: Overall doing well. She has noticed a little bit of a dry cough in the morning the past couple of days but no exacerbations of her underlying lung disease. Feels that Arnuity has helped.Using her albuterol 0-1 times daily. 05/15/2022 OV: Overall she is doing about the same. She still does use her albuterol 2-3 times per week. Has not had a repeat CT scan yet 02/05/2022 OV: Chio Orantes is a 73-year-old female with a past medical history of obstructive sleep apnea, reported history of asthma, hypertension, lupus, prior stroke who is referred to pulmonary clinicfor evaluation of pulmonary nodules. She was diagnosed with SARS-CoV-2 pneumonia in September. Since that time she has had more of a difficult time with her breathing and a chronic cough. She can walk approximately 1 block before she has to stop to catch her breath. She states that after this she huffs and puffs. Denies orthopnea or PND. No other provoking factors for the shortness of breath. Occasionally she does take an albuterol inhaler prior to walking and states that this does improve her exercise tolerance. Previously diagnosed with asthma and was on Flovent but no longer on this medication. Endorses a chronic cough, that seems to come on in spells. It seems to be worse when she is lying down in the morning or in the evening. Occasionally is worse after eating as well. With regards to asthma she was diagnosed around 3 to 4 years old. Never hospitalized. Rarely on steroids due to asthma, occasionally on steroids due to underlying lupus. She is also on methotrexate and hydroxychloroquine. Endorses seasonal allergies, she takes montelukast. No other allergy medications. Never smoker. 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 1 cat at home. Past Medical History: Diagnosis Date Anxiety Arthritis Asthma ([facility]) Hypertension Lupus ([facility] Sleep apnea Stroke ([facility]) Past Surgical History: Procedure Laterality Date APPENDECTOMY SECTION COLONOSCOPY N/A 09/18/2023 COLONOSCOPY - negative performed by Randal Seth MD at [facility] OR TRIGGER FINGER RELEASE HYSTERECTOMY SCREENING COLONOSCOPY 2019 TONSILLECTOMY Social History Tobacco Use Smoking status: Never Passive exposure: Never Smokeless tobacco: Never Vaping Use Vaping status: Never Used Substance Use Topics Alcohol use: Yes Comment: occassionally Drug use: Never Family History Problem Relation Name Age of Onset Heart Disease Mother TB Father Other (lungs) Father Current Outpatient Medications Medication Sig Dispense Refill albuterol sulfate HFA 108 (90 Base) MCG/ACT inhaler Inhale 2 puffs into the lungs every 4 (four) hours as needed for Wheezing. 18 g 3 bisoprolol (ZEBETA) 5 MG tablet Take 1 tablet (5 mg total) by mouth daily. brimonidine (ALPHAGAN) 0.2 % ophthalmic solution INSTILL 1 DROP INTO BOTH EYES 3 TIMES A DAY calcium carbonate 600 MG tablet Take by mouth daily. Cholecalciferol (VITAMIN D3) 50 MCG (2000 UT) Cap take 1 by Oral route every day dicyclomine (BENTYL) 20 MG tablet TAKE 1 TAB EVERY 8 HOURS NEEDED FOR STOMACH CRAMPING. ELIQUIS 5 MG tablet Take 1 tablet (5 mg total) by mouth 2 (two) times daily. empagliflozin (JARDIANCE) 10 MG tablet Take 1 tablet (10 mg total) by mouth daily. fluconazole (DIFLUCAN) 150 MG tablet Take 1 tablet (150 mg total) by mouth once. fluticasone furoate-vilanterol (BREO ELLIPTA) 100-25 MCG/ACT inhaler Inhale 1 puff into the lungs daily. Rinse and spit after use 180 each 3 folic acid (FOLVITE) 1 MG tablet TAKE 1 TABLET BY MOUTH EVERY DAY 90 tablet 3 furosemide (LASIX) 20 MG tablet Take 1 tablet (20 mg total) by mouth daily. hydroCHLOROthiazide (HYDRODIURIL) 25 MG tablet isosorbide mononitrate ER (IMDUR) 30 MG 24 hr tablet Take 1 tablet (30 mg total) by mouth daily. 30tablet 0 methotrexate 2.5 MG tablet metoprolol succinate ER (TOPROL-XL) 50 MG 24 hr tablet montelukast (SINGULAIR) 10 MG tablet take 1 tablet by mouth every day at night 90 tablet 3 pantoprazole EC (PROTONIX) 40 MG tablet take 1 tablet by mouth every day 90 tablet 2 PARoxetine (PAXIL) 20 MG tablet Take 2 tablets (40 mg total) by mouth daily. 180 tablet 3 potassium chloride CR 20 MEQ tablet TAKE 2 TABLETS EVERY MORNING AND 2 TABLETS EVERY EVENING triamcinolone (KENALOG) 0.1 % cream Apply topically 2 (two) times daily. 15 g 1 vitamin C 1000 MG tablet Take 1 tablet (1,000 mg total) by mouth daily. zoster vaccine (SHINGRIX) (SHINGRIX) injection Need 2 doses 2-6 months apart 1 each 1 atorvastatin 80 MG tablet TAKE 1 TABLET BY MOUTH EVERY DAY nitroglycerin 0.4 MG SL tablet May repeat dose every 5 minutes for up to 3 doses total. No current facility-administered medications for this visit. Review of patient's allergies indicates: Allergen Reactions Latex Rash Sulfa Antibiotics Swelling Levofloxacin Headache and Nausea Only Nitrofurantoin Headache Immunization History Administered Date(s) Administered Fluzone High Dose - >Age 65 (Prefilled Syringe) 05/30/2020, 05/30/2020, 07/18/2021, 07/06/2022, 08/23/2023 Influenza 06/28/2009, 06/05/2011, 07/03/2012, 05/21/2013, 05/17/2015, 05/03/2017 Influenza Adult (Generic) 05/28/2014, 07/13/2016, 07/16/2016, 05/15/2017, 07/03/2018, 06/02/2019 MODERNA COVID-19 (12+) MRNA, LNP-S, PF, 100 MCG/ 0.5 ML DOSE 10/21/2020, 11/18/2020 PFIZER COVID-19 (ORIGINAL FORMULATION, PURPLE CAP) mRNA, LNP-S, PF, 30 MCG/0.3 ML DOSE 08/07/2021 [place] COVID-19 BIVALENT (12+) mRNA, LNP-S, PF, 30 MCG/0.3 ML DOSE 07/06/2022 Pneumococcal (Pneumovax 23) 05/28/2014 Pneumococcal (Prevnar 13) 05/22/2017 Review of Systems Constitutional: Negative for chills, fever and weight loss. HENT: Negative for ear pain, hearing loss and nosebleeds. Eyes: Negative for blurred vision, double vision and redness. Respiratory: Negative for cough, hemoptysis, sputum production, shortness of breath and wheezing. Cardiovascular: Negative for chest pain, palpitations, orthopnea, leg swelling and PND. Gastrointestinal: Negative for heartburn, nausea and vomiting. Genitourinary: Negative for dysuria, frequency and urgency. Musculoskeletal: Negative for myalgias. Skin: Negative for rash. Neurological: Negative for dizziness, tingling and headaches. Endo/Heme/Allergies: Does not bruise/bleed easily. Psychiatric/Behavioral: Negative for depression, hallucinations and suicidal ideas. The patient is not nervous/anxious. Physical Exam Filed Vitals: 03/25/24 0951 BP: 94/51 Pulse: 89 Resp: 18 Temp: 98 ??F (36.7 ??C) TempSrc: Temporal SpO2: 96% Weight: 63 kg (139 lb) Height: 1.499 m (4' 11 ) Body mass index is 28.07 kg/m??. Physical Exam: General: Alert, pleasant, in NAD Neuro: Alert, appropriate Psych: Affect normal Head: NC, AT EENT: No Sinus tenderness to palpation, mallampati 2 Neck: Supple Lymph: No appreciable cervical lymphadenopathy Respiratory: Normal bilateral breath sounds. Cardiovascular: s1,s2, rrr, no audible murmur GI: non-distended, bs+ Musc: Bilateral wrist ROM wnl Ext: no edema, no clubbing Skin: No visible rashes, No visible tattoos MICRO: 01/11/2022 SARS-CoV-2 negative 09/08/2021 SARS-CoV-2 positive PFTs: 04/13/2022 Prebronchodilator FEV1 1.21 L, 68%. FVC 1.70 L, 74%. FEV1/FVC ratio 71%. Postbronchodilator FEV1 1.37 L, 77%. FVC 1.99 L, 87%. FEV1 selfies ratio 69%. TLC 3.96 L, 96%. RV 2.03 L, 119%. Unadjusted DLCO 91% Sleep Studies: None CXR 01/09/2022 Images personally reviewed. Clear lung madrigal bilaterally. Swallow evaluation Per speech therapy normal oropharyngeal swallow with suspected esophageal involvement. Recommendation to consider GI consult. CT Chest 09/29/2021 Images personally reviewed. Multiple pulmonary nodules. Majority less than 6 mm, largest approximately 6.7 mm. There is no fibrotic lung disease 05/23/2022 Images personally reviewed. Multiple pulmonary nodules noted, most stable however there is 1 new nodule, less than 6 mm. Pertinent Labs 05/23/2022 region 8 allergy panel positive for dust mites, cats, dogs. IgE 23. Absolute eosinophils 100. Assessment Multiple pulmonary nodules-only risk factor is age Mild persistent asthma Dyspnea on exertion -consider underlying asthma, deconditioning, obesity. Postacute COVID syndrome. Chronic cough Plan - Repeat CT chest 05/2023, never scheduled by the patient or performed. Reordered today. - Continue Singulair 10 mg nightly. Refilled today - Continue t Breo 100/25 mcg 1 puff daily. Rinse gargle and spit after use. Refilled today - Albuterol as needed, refilled today Return in about 6 months (around 09/25/2024). Johnnie Olmos MD documented in this encounter Plan of Treatment Upcoming Encounters Date Type Department Care Team (Late st Contact Info) Description 10/02/2024 11:40 AM COMMERCIAL FIELD INSPECTOR Office Visit [facility] Medical Group Multispecialty Care - [address] [place] [phone] Johnnie Olmos MD [address] [place] [address] 01/04/2025 9:50 AM CDT Office Visit [facility] Medical Group Family Medicine - [place] [address] [place] [address] Emily Jordan MD [address] [place], [place] [id number] documented as of this encounter Results * CT CHEST WO CON (04/08/2024 9:46 AM CDT) Anatomical Region Laterality Modality Chest Computed Tomogra phy 04/09/2024 9:55 AM CDT Impressions 04/09/2024 9:59 AM CDT IMPRESSION: 1. ??The dominant nodule on the prior exam, in the left upper lobe on 05/23/2022, has resolved. 2. ??Several additional small nodules measuring less than 6 mm each are stable compared with 05/23/2022. ??No new or progressive nodules. ??No specific follow- up necessary. 3. ??Atherosclerosis and coronary cusp cases. 4. ??Mari Society criteria utilized. Referred By: JOHNNIE OLMOS Interpreted By: Tyrone Kuo MD, 04/09/2024 9:55 AM Narrative 04/09/2024 9:59 AM CDT EXAMINATION: CT CHEST WITHOUT CONTRAST EXAM DATE/TIME: 04/08/2024 9:30 AM REASON FOR EXAM: ??Follow up nodules Lung nodule, > 8mm ?? COMPARISON: 05/23/2022 TECHNIQUE: Computed tomography was performed of the chest without intravenous contrast. Dose lowering technique was used for this study which may include, but is not limited to, dose reduction techniques, automated exposure control, use of iterative ??reconstruction and ALARA (As low As Reasonably Achievable)/Image Gently techniques. ?? FINDINGS: The nodule which was described as new in the left lower lobe on axial image 18 of 05/23/2022, which measured 5 mm on that exam, has resolved. 3 mm nodule of the lingula axial image 62, 2 mm nodule of the lingula axial image 73, stable compared with 05/23/2022. Subapical pleural fibrosis bilaterally. 4 mm nodule of the lingula axial image 80, stable. Several additional nodules, measuring less than 6 mm each, also stable. Stable subsegmental atelectasis of the right lobe. No pneumothorax or pleural effusion. On soft tissue windows, no axillary or supraclavicular lymphadenopathy. On mediastinal windows, no evidence of hilar or mediastinal lymphadenopathy. Heart size normal. No pericardial effusion. Atherosclerosis and coronary calcifications. ??Small hiatal hernia. Limited evaluation of the upper abdomen demonstrates no acute abnormality. On bone windows, no suspicious skeletal lesion or acute compression fracture deformity. Procedure Note Tyrone Kuo MD - 04/09/2024 EXAMINATION: CT CHEST WITHOUT CONTRAST EXAM DATE/TIME: 04/08/2024 9:30 AM REASON FOR EXAM: Follow up nodules Lung nodule, > 8mm COMPARISON: 05/23/2022 TECHNIQUE: Computed tomography was performed of the chest withoutintravenous contrast. Dose lowering technique was used for this study which may include, but isnot limited to, dose reduction techniques, automated exposure control, use of iterativereconstruction and ALARA (As low As Reasonably Achievable)/Image Gently techniques. FINDINGS: The nodule which was described as new in the left lower lobe on axialimage 18 of 05/23/2022, which measured 5 mm on that exam, has resolved. 3 mm nodule of the lingula axial image 62, 2 mm nodule of the lingulaaxial image 73, stable compared with 05/23/2022. Subapical pleural fibrosis bilaterally. 4 mm nodule of the lingula axial image 80, stable. Several additional nodules, measuring less than 6 mm each, also stable. Stable subsegmental atelectasis of the right lobe. No pneumothorax or pleural effusion. On soft tissue windows, no axillary or supraclavicular lymphadenopathy. On mediastinal windows, no evidence of hilar or mediastinallymphadenopathy. Heart size normal. No pericardial effusion. Atherosclerosis and coronary calcifications. Small hiatal hernia. Limited evaluation of the upper abdomen demonstrates no acuteabnormality. On bone windows, no suspicious skeletal lesion or acute compressionfracture deformity. IMPRESSION: 1. The dominant nodule on the prior exam, in the left upper lobe on05/23/2022, has resolved. 2. Several additional small nodules measuring less than 6 mm each arestable compared with 05/23/2022. No new or progressive nodules. Nospecific follow-up necessary. 3. Atherosclerosis and coronary cusp cases. 4. Mari Society criteria utilized. Referred By: JOHNNIE OLMOS Interpreted By: Tyrone Kuo MD, 04/09/2024 9:55 AM Johnnie Olmos MD CT Final Result documented in this encounter Visit Diagnoses Diagnosis Mild persistent asthma without complication (HHS/HCC)- Primary Unspecified asthma Shortness of breath Dyspnea on exertion Other dyspnea and respiratory abnormality Chronic cough Cough Pulmonary nodules/lesions, multiple Other nonspecific abnormal finding of lung field Seasonal allergies Allergic rhinitis, cause unspecified Pulmonary nodules/lesions, multiple Other nonspecific abnormal finding of lung field documented in this encounter Additional Health Concerns Assessment Noted Time PHQ-9 Depression Total Score: 1 04/03/20 23 3:30 PM CDT documented as of this encounter Care Teams Ground Service Equipment Mechanic Relationship Specialty [place] [id number] [facility] [place] [address] PCP - General FAMILY PRACTICE 09/29/21 06/08/[address] [place] [id number] [facility] [facility] [address] [place] [address] RHEUMATOLOGY 09/27/20 documented as of this encounter
--- OUTSIDE RECORDS SUMMARY | 2024-08-29 09:51 | XMS_ITS | Encounter Summary ---
Author Organization [facility] Address [address] [place] [address]. [place], [place] [address] [place] [id number] Care Team Providers Care Heavy Equipment Sales Manager Name Role Phone Gladis Song MD Unavailable Thi Lugo MD Primary Care Provider Reason for Visit * Reason Comments Medication Management Encounter Details Date Type Department Care Team (Late st Contact Info) Description 02/24/2024 11:20 AM CDT Office Visit [facility] Family & Internal Medicine [address] [address] Thi Lugo MD [address] [place] [address]. [address] [place] [address] Medication Management Social History Tobacco Use Types Packs/Day Years Used Date Smoking Tobacco: Never Passive Smoke Exposure: Never Smokeless Tobacco: Never Tobacco Cessation:Counseling Given: No Alcohol Use Standard Drinks/Week Comments Yes 0 (1 standard drink = 0.6 oz pur e alcohol) occassionally PHQ-2 Answer Date Recorded Patient Health Questionnaire-2 Score 0 02/24/2024 Comments No Sex and Gender Information Value Date Recorded Sex Assigned at Not on file Legal Sex Female 10:22 PM FREEZER TUNNEL OPERATOR Gender Identity Female 09/12/2021 9:51 AM FREEZER TUNNEL OPERATOR Sexual Orientation Straight 09/12/2021 9: 51 AM FREEZER TUNNEL OPERATOR documented as of this encounter Last Filed Vital Signs Vital Sign Reading Time Taken Comments Blood Pressure 107/64 02/24/2024 11:28 AM CDT Pulse 68 02/24/2024 11:28 AM CDT Temperature 37.2 ??C (98.9 ??F) 02/24/2024 11:28 AM C DT Respiratory Rate 14 02/24/2024 11:28 AM CDT Oxygen Saturation 96% 02/24/2024 11:28 AM CDT Inhaled Oxygen Concentration - - Weight 63.5 kg (140 lb) 02/24/2024 11:28 AM CDT Height 149.9 cm (4' 11 ) 02/24/2024 11:28 AM CDT Body Mass Index 28.28 02/24/2024 11:28 AM CDT documented in this encounter Progress Notes * Thi Lugo MD - 02/24/2024 11:20 AM CDT Reason for Visit: Medication Management History of Present Illness: HPI Miss Chio Orantes is a pleasant 73-year-old female with complex past and current medical history butnot limited to asthma, Prediabetes, CVA and paroxysmal afibb was on Eliquis, CAD, heart failure preserved ejection fraction, SLE- on methotrexate for SLE, prediabetes, peripheral neuropathy, chronic GERD, restless legs and hypertension was seen today for 3-month follow-up appointment on chronic medical conditions. She states she is cold all the time even in the heat. Her throat feels like clogged.denies sore throat. Constantly she has to clear her throat.associated drainage of sinuses. Thinks allergies. She started allergy medication OTC that's helped some. She does have dry mouth. Mood HAS BEEN good. Takes paxil without side effects. Stress related with husbands health and taking care of grandkids. Hypertension (Follow-Up): The patient presents for follow-up of primary hypertension. The patient states she has been doing well with her blood pressure control since the last visit. Interval Events: Patient has a history of hypertension but denies any present chest pain shortness of breath has not had severe hypertensive episodes and denies any symptomatic hypotensive episodes. The medication is taken regularly and without any significant side effects of cough, fatigue or dizziness. Medication as tolerated well and the patient would like a refill today. she has no significant interval events. Hyperlipidemia (Follow-Up): The patient states her hyperlipidemia has been stable since the last visit. Interval Events: Hyperlipidemia has no symptoms of chest pain shortness of breath or strokelikesymptoms. Patient has been taking the medication regularly and denies any side effects of myalgias,and has no significant changes in memory and otherwise is tolerating the medication well. The patient has been compliant with medications. Per last office note: Specialists 1. Cardiology at [place]. 2. Rheum Dr. Song 3. Neurology for memory loss and Hx of stroke- Ly, Julianna HALL MD and Jluis Gautam M.D., Ph.D 4. Pulmonology: asthma 5 eye doctor. 6. PRN dermatology No other concerns for today. ROS: Review of Systems negative except documented in HPI Medications: Current Outpatient Medications: albuterol sulfate HFA 108 [...] 3 TIMES A DAY, Disp: , Rfl: calcium carbonate 600 MG tablet, Take by mouth daily., Disp: , Rfl: Cholecalciferol (VITAMIN D3) 50 MCG (2000 UT) Cap, take 1 by Oral route every day, Disp: , Rfl: dicyclomine (BENTYL) 20 MG tablet, TAKE 1 TAB EVERY 8 HOURS NEEDED FOR STOMACH CRAMPING., Disp: , Rfl: ELIQUIS 5 MG tablet, Take 1 tablet (5 mg total) by mouth 2 (two) times daily., Disp: , Rfl: empagliflozin (JARDIANCE) 10 MG tablet, Take 1 tablet (10 mg total) by mouth daily., Disp: , Rfl: fluconazole (DIFLUCAN) 150 MG tablet, Take 1 tablet (150 mg total) by mouth once., Disp: , Rfl: fluticasone furoate-vilanterol (BREO ELLIPTA) 100-25 MCG/ACT inhaler, Inhale 1 puff into the lungs daily. Rinse and spit after use, Disp: 180 each, Rfl: 3 folic acid (FOLVITE) 1 MG tablet, TAKE 1 TABLET BY MOUTH EVERY DAY, Disp: 90 tablet, Rfl: 3 furosemide (LASIX) 20 MG tablet, Take 1 tablet (20 mg total) by mouth daily., Disp: , Rfl: hydroCHLOROthiazide (HYDRODIURIL) 25 MG tablet, , Disp: , Rfl: isosorbide mononitrate ER (IMDUR) 30 MG 24 hr tablet, Take 1 tablet (30 mg total) by mouth daily., Disp: 30 tablet, Rfl: 0 methotrexate 2.5 MG tablet, , Disp: , Rfl: metoprolol succinate ER (TOPROL-XL) 50 MG 24 hr tablet, , Disp: , Rfl: montelukast (SINGULAIR) 10 MG tablet, take 1 tablet by mouth every day at night, Disp: 90 tablet, Rfl: 3 nitroglycerin 0.4 MG SL tablet, May repeat dose every 5 minutes for up to 3 doses total., Disp: , Rfl: pantoprazole EC (PROTONIX) 40 MG tablet, take 1 tablet by mouth every day, Disp: 90 tablet, Rfl: 2 PARoxetine (PAXIL) 20 MG tablet, Take 2 tablets (40 mg total) by mouth daily., Disp: 180 tablet, Rfl: 3 potassium chloride CR 20 MEQ tablet, TAKE 2 TABLETS EVERY MORNING AND 2 TABLETS EVERY EVENING, Disp: , Rfl: triamcinolone (KENALOG) 0.1 % cream, Apply topically 2 (two) times daily., Disp: 15 g, Rfl: 1 vitamin C 1000 MG tablet, Take 1 tablet (1,000 mg total) by mouth daily., Disp: , Rfl: zoster vaccine (SHINGRIX) (SHINGRIX) injection, Need 2 doses 2-6 months apart, Disp: 1 each, Rfl: 1 Review of patient's allergies indicates: Allergen Reactions Latex Rash Sulfa Antibiotics Swelling Levofloxacin Headache and Nausea Only Nitrofurantoin Headache Past Medical History: Diagnosis Date Anxiety Arthritis Asthma (HHS/HCC) Hypertension Lupus (CMS/HCC HHS/HCC) Sleep apnea Stroke (CMS/[facility] HHS/HCC) Past Surgical History: Procedure Laterality Date APPENDECTOMY SECTION COLONOSCOPY N/A 09/18/2023 COLONOSCOPY - negative performed by Randal Seth MD at [facility] OR TRIGGER FINGER RELEASE HYSTERECTOMY SCREENING COLONOSCOPY 2019 TONSILLECTOMY Social History Socioeconomic History Marital status: Tobacco Use Smoking status: Never Passive exposure: Never Smokeless tobacco: Never Vaping Use Vaping status: Never Used Substance and Sexual Activity Alcohol use: Yes Comment: occassionally Drug use: Never Sexual activity: Not Currently Social History Narrative LIVE AT HOME WITH E-Cigarettes Questions Responses E-Cigarette Use Never User E-cigarette/Vaping Substances Questions Responses Nicotine No THC No CBD No Flavoring No E-cigarette/Vaping Devices Questions Responses Disposable No Pre-filled or Refillable Cartridge No Refillable Tank No Pre-filled Pod No Family History Problem Relation Name Age of Onset Heart Disease Mother TB Father Other (lungs) Father Family Status Relation Name Status Mother Father No partnership data on file Physical Exam Vitals reviewed. HENT: Head: Normocephalic and atraumatic. Eyes: Conjunctiva/sclera: Conjunctivae normal. Cardiovascular: Rate and Rhythm: Normal rate and regular rhythm. Pulmonary: Effort: Pulmonary effort is normal. Breath sounds: Normal breath sounds. No wheezing. Musculoskeletal: Right lower leg: No edema. Left lower leg: No edema. Skin: General: Skin is warm. Neurological: Mental Status: She is alert and oriented to person, place, and time. Psychiatric: Mood and Affect: Mood normal. Behavior: Behavior normal. Judgment: Judgment normal. Filed Vitals: 02/24/24 1128 BP: 107/64 Pulse: 68 Resp: 14 Temp: 98.9 ??F (37.2 ??C) TempSrc: Temporal SpO2: 96% Weight: 63.5 kg (140 lb) Height: 1.499 m (4' 11 ) Diagnoses/Impression: 1. Prediabetes COLLECT.CAPILLARY (FNGR,HEEL,EAR) HEMOGLOBIN, GLYCOSYLATED 2. Essential hypertension 3. Dyslipidemia 4. Drug side effects 5. Anxiety state PARoxetine (PAXIL) 20 MG tablet 6. Need for shingles vaccine zoster vaccine (SHINGRIX) (SHINGRIX) injection 7. Seasonal allergies 8. Atypical squamoproliferative skin lesion Recommendations and Plan: 1. Prediabetes Chronic. A1c 5.9 today. Continue to avoid sugars - COLLECT.CAPILLARY (FNGR,HEEL,EAR) - HEMOGLOBIN, GLYCOSYLATED 2. Essential hypertension Chronic and well-controlled. Continue HCTZ, Imdur and beta-naye as taking. 3. Dyslipidemia Chronic.Last lipids well-controlled in December. Continues statin 4. Drug side effects dRY MOUTH SECONDARY TO LASIX AND Jardiance. Encouraged to stay hydrated. 5. Anxiety state Chronic and stable. Continue Paxil. - PARoxetine (PAXIL) 20 MG tablet; Take 2 tablets (40 mg total) by mouth daily. Dispense: 180 tablet; Refill: 3 6. Need for shingles vaccine - zoster vaccine (SHINGRIX) (SHINGRIX) injection; Need 2 doses 2-6 months apart Dispense: 1 each; Refill: 1 7. Seasonal allergies Continue antihistamine AND SINGULAIR nightly. Patient to follow-up symptoms worsen Advised to go to the emergency room in case of sudden shortness of breath or angioedema like symptoms Follow-up in 6 months. Earlier if needed. She voiced understanding and agrees with the plan. All questions answered. Orders Placed This Encounter COLLECT.CAPILLARY (FNGR,HEEL,EAR) HEMOGLOBIN, GLYCOSYLATED dicyclomine (BENTYL) 20 MG tablet PARoxetine (PAXIL) 20 MG tablet zoster vaccine (SHINGRIX) (SHINGRIX) injection Reviewed and updated this visit by provider: Thi Lugo MD Referring Provider: No ref. provider found PCP: Thi Lugo MD documented in this encounter Plan of Treatment Upcoming Encounters Date Type Department Care Team (Late st Contact Info) Description 10/02/2024 11:40 AM FREEZER TUNNEL OPERATOR Office Visit [facility] Multispecialty Care - [facility] [address] [facility] [place] [address] Johnnie Lr MD [address] [facility] [address] [place] [address] 01/04/2025 9:50 AM CDT Office Visit [facility] Family Medicine - [place] [address] [facility] [address] [place] [address], [place] [address] Emily Jordan MD [address] [place] [address] documented as of this encounter Procedures Procedure Name Priority Date/Time Associated Diagnosis Comments COLLECT.CAPILLARY (FNGR,HEEL,EAR) Routine 02/24/2024 11:31 AM CDT Prediabetes HEMOGLOBIN, GLYCOSYLATED Routine 02/24/2024 Prediabetes documented in this encounter Results * HEMOGLOBIN, GLYCOSYLATED (02/24/2024) HGB A1C 5.9 % [id number] [facility] 02/24/2024 Thi Lugo MD LABORATORY Final Result Performing Organization Address City/State/[facility] Co de Phone Number [phone] [facility] [address] [place] [address], documented in this encounter Visit Diagnoses Diagnosis Prediabetes- Primary Other abnormal glucose Essential hypertension Unspecified essential hypertension Dyslipidemia Other and unspecified hyperlipidemia Drug side effects Unspecified adverse effect of unspecified drug, medicinal and biological substance Anxiety state Anxiety state, unspecified Need for shingles vaccine Need for prophylactic vaccination and inoculation against other viral diseases Seasonal allergies Allergic rhinitis, cause unspecified Atypical squamoproliferative skin lesion documented in this encounter Additional Health Concerns Assessment Noted Time PHQ-9 Depression Total Score: 1 04/03/20 23 3:30 PM CDT documented as of this encounter Care Teams Heavy Equipment Sales Manager Relationship Specialty [place] [address] [address] [facility] [address] [place] [address] PCP - General FAMILY PRACTICE 09/29/21 06/08/24 [place] [address] [facility] [address] [place] [address] RHEUMATOLOGY 09/27/20 documented as of this encounter
--- OUTSIDE RECORDS SUMMARY | 2024-08-29 09:51 | XMS_ITS | Encounter Summary ---
Author Organization [facility] Address [facility] [place] [address] [place] [address] Care Team Providers Care Reproduction Machine Loader Name Role Phone Gladis Song MD Unavailable Thi Lugo MD Primary Care Provider [phone] Encounter Details Date Type Department Care Team (Latest Contact Info) Description 02/24/2024 Travel Social History Tobacco Use Types Packs/Day [...] on file Legal Sex Female 10:22 PM TECHNICIAN PLANT AND MAINTENANCE Gender Identity Female 09/12/2021 9:51 AM TECHNICIAN PLANT AND MAINTENANCE Sexual Orientation Straight 09/12/2021 9: 51 AM TECHNICIAN PLANT AND MAINTENANCE documented as of this encounter Plan of Treatment Upcoming Encounters Date Type Department Care Team (Late st Contact Info) Description 10/02/2024 11:40 AM TECHNICIAN PLANT AND MAINTENANCE Office Visit [facility] Multispecialty Care - [address], [address] [place] [address] Johnnie Lr MD [address] [facility] [address] [place] [address] 01/04/2025 9:50 AM CDT Office Visit [facility] Family Medicine - [place] [address] [place] [address] Emily Jordan MD [address] [place] [address] documented as of this encounter Visit Diagnoses Not on filedocumented in this encounter Additional Health Concerns Assessment Noted Time PHQ-9 Depression Total Score: 1 04/03/20 23 3:30 PM CDT documented as of this encounter Care Teams Reproduction Machine Loader Relationship Specialty [place] [address] [facility] [place] [address] PCP - General FAMILY PRACTICE 09/29/21 06/08/24 [place] [address] [facility] [place] [address] RHEUMATOLOGY 09/27/20 documented as of this encounter
--- OUTSIDE RECORDS SUMMARY | 2024-08-29 09:51 | XMS_ITS | Encounter Summary ---
Author Organization [facility] Address [facility] [facility] [place] [address] [place] [address] Care Team Providers Care Build And Deployment Engineer Name Role Phone Gladis Song MD Unavailable Thi Lugo MD Primary Care Provider [phone] Reason for Referral * Imaging (Routine) - Closed Specialty Diagnoses / Procedures Referred By Valerie florian Referred To Contact RADIOLOGY Diagnoses Pulmonary nodules/lesions, multiple Procedures CT CHEST WO Johnnie Littlejohn MD [address] [address] Phone: tel: fax: Referral ID Status Reason Start Date Expiration Date Visits Re quested Visits Authorized [id number] Closed 03/25/2024 03/25/2025 1 1 Reason for Visit * Imaging (Routine) - Closed Specialty Diagnoses / Procedures Referred By Valerie florian Referred To Contact RADIOLOGY Diagnoses Pulmonary nodules/lesions, multiple Procedures CT CHEST Johnnie Steen MD [address] [address] Phone: tel: fax: Referral ID Status Reason Start Date Expiration Date Visits Re quested Visits Authorized [id number] Closed 03/25/2024 03/25/2025 1 1 Encounter Details Date Type Department Care Team (Latest Contact Info) Description 04/08/2024 8:41 AM CDT - 04/08/2024 11:59 PM CDT Hospital Encounter [facility] [address] [place] [address] Johnnie Olmos MD 3 [facility] [address] [place] [address] Discharge Disposition: Home or Self Care (Routine [...] on file Legal Sex Female 10:22 PM WIND TURBINE CONTROLS ENGINEER Gender Identity Female 09/12/2021 9:51 AM WIND TURBINE CONTROLS ENGINEER Sexual Orientation Straight 09/12/2021 9: 51 AM WIND TURBINE CONTROLS ENGINEER documented as of this encounter Medications at [...] (5 mg total) by mouth daily. 06/12/2022 4 dicyclomine (BENTYL) 20 MG tablet TAKE 1 TAB EVERY 8 HOURS NEEDED FOR STOMACH CRAMPING. 11/29/2023 4 fluconazole (DIFLUCAN) 150 MG tablet Take 1 tablet (150 mg total) by mouth once. 02/22/2023 4 folic acid (FOLVITE) 1 MG tabletIndications: Rheumatoid arthritis without rheumatoid factor, multiple sites (CMS/HCC HHS/HCC) TAKE 1 TABLET BY MOUTH EVERY DAY [...] 02/24/2024 4 documented as of this encounter Progress Notes * Johnnie Olmos MD - 04/08/2024 9:00 AM CDT Mrs. Orantes, Moe reviewed the CT scan of your chest. Overall the previous dominant lung nodule has actually resolved. The rest of the lung nodules which were small have remained stable in size. We do not need to follow-up on these spots anymore, we can go over the results in more detail when you follow-up. Johnnie Olmos MD documented in this encounter Plan of Treatment Upcoming Encounters Date Type Department Care Team (Late st Contact Info) Description 10/02/2024 11:40 AM WIND TURBINE CONTROLS ENGINEER Office Visit [facility] Multispecialty Care - [facility] [address] [facility] [place] [address] Johnnie Olmos MD [address] [facility] [address] [place] [address] 01/04/2025 9:50 AM CDT Office Visit [facility] Family Medicine - [place] [address] [place] [address] Emily Jordan MD [address] [place] [address] documented as of this encounter Procedures Procedure Name Priority Date/Time Associated Diagnosis Comments CT CHEST WO CON Routine 04/08/2024 9:46 AM CDT Pulmonary nodules/lesions, multiple documented in this encounter Results * CT CHEST WO [...] documented in this encounter Visit Diagnoses Diagnosis Pulmonary nodules/lesions, multiple Other nonspecific abnormal finding of lung field documented in this encounter Additional Health Concerns Assessment Noted Time PHQ-9 Depression Total Score: 1 04/03/20 23 3:30 PM CDT documented as of this encounter Care Teams Build And Deployment Engineer Relationship Specialty [place] [address] [facility] [place] [address] PCP - General FAMILY PRACTICE 09/29/21 06/08/24 [place] [address] [place] [address] RHEUMATOLOGY 09/27/20 documented as of this encounter
--- OUTSIDE RECORDS SUMMARY | 2024-08-29 09:51 | XMS_ITS | Encounter Summary ---
Author Organization [facility] Address [address] [place] [address]. [place], [place] [id number] [place] [address] Care Team Providers Care Youth Nutritional Monitor Name Role Phone Gladis Song MD Unavailable Thi Lugo MD Primary Care Provider [phone] Reason for Visit * Reason Comments ER F/U UTI Symptoms Pt currently experie ncing urinary urgency. Vaginal Itching Encounter Details Date Type Department Care Team (Late st Contact Info) Description 05/22/2024 1:40 PM CDT Office Visit [facility] Medical Group Family & Internal Medicine [address] [address] Thi Lugo MD [address] [place] [address]. [address] [place] [address] ER F/U; UTI Symptoms (Pt currently experiencing urinary urgency. 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 Gender Identity Female 09/12/2021 9:51 AM BANKING TEACHER Sexual Orientation Straight 09/12/2021 9: 51 AM BANKING TEACHER documented as of this encounter Last Filed Vital Signs Vital Sign Reading Time Taken Comments Blood Pressure 103/64 05/22/2024 1:36 PM CDT Pulse 70 05/22/2024 1:36 PM CDT Temperature 37.1 ??C (98.7 ??F) 05/22/2024 1:36 PM CD T Respiratory Rate 16 05/22/2024 1:36 PM CDT Oxygen Saturation 95% 05/22/2024 1:36 PM CDT Inhaled Oxygen Concentration - - Weight 63 kg (139 lb) 05/22/2024 1:36 PM CDT Height 149.9 cm (4' 11 ) 05/22/2024 1:36 PM CDT Body Mass Index 28.07 05/22/2024 1:36 PM CDT documented in this encounter Progress Notes * Thi Lugo MD - 05/22/2024 1:40 PM CDT Reason for Visit: ER F/U, UTI Symptoms (Pt currently experiencing urinary urgency. ), and Vaginal Itching History of Present Illness: HPI Miss Chio Orantes is a pleasant 73-year-old female with complex past and current medical history butnot limited to asthma, Prediabetes, CVA and paroxysmal afibb was on Eliquis, CAD, heart failure preserved ejection fraction, SLE- on methotrexate for SLE, prediabetes, peripheral neuropathy, chronic GERD, restless legs and hypertension WAS seen today for ER follow-up Reviewed ER visit 05/09-for urinary symptoms. Patient was treated with Rocephin AND dISCHARGED ON Keflex and phenazopyridine. Tested negative for COVID today - Patient reports intermittent burning during urination. - Patient reports vaginal itching and the presence of pimples in the vaginal area. - Patient reports a history of yeast infections. - Patient mentions having a persistent cough, producing light yellow mucus. - No fever reported in the last week. No sick contacts. Per last office note: Specialists 1. Cardiology at [facility]. 2. Rheum Dr. Song 3. Neurology for memory loss and Hx of stroke- Yuki, Julianna HALL MD and Jluis Gautam M.D., [...] (DIFLUCAN) 150 MG tablet, Take 1 tablet now then repeat in 72 hours., Disp: 2 tablet, Rfl: 0 fluticasone furoate-vilanterol (BREO ELLIPTA) 100-25 MCG/ACT inhaler, [...] mouth daily., Disp: 30 tablet, Rfl: 0 metoprolol succinate ER (TOPROL-XL) 50 MG 24 [...] total) by mouth daily., Disp: , Rfl: methotrexate 2.5 MG tablet, , Disp: , Rfl: zoster vaccine (SHINGRIX) (SHINGRIX) injection, Need 2 doses 2-6 months apart (Patient not taking: Reported on 05/22/2024), Disp: 1 each, Rfl: 1 Review of patient's allergies indicates: Allergen Reactions Latex Rash Sulfa Antibiotics Swelling Levofloxacin Headache and Nausea Only Nitrofurantoin Headache Past Medical History: Diagnosis Date Anxiety Arthritis Asthma (HHS/HCC) Hypertension Lupus ([facility] HHS/HCC) Sleep apnea Stroke ([facility]) Past Surgical History: Procedure Laterality Date APPENDECTOMY SECTION COLONOSCOPY N/A 09/18/2023 COLONOSCOPY - negative performed by Randal Seth MD at [facility] OR TRIGGER FINGER RELEASE HYSTERECTOMY [...] data on file Physical Exam Vitals reviewed. Exam conducted with a breakfast bar attendant present. HENT: Head: Normocephalic and atraumatic. Eyes: Conjunctiva/sclera: Conjunctivae normal. Cardiovascular: Rate and Rhythm: Normal rate and regular rhythm. Pulmonary: Effort: Pulmonary effort is normal. Breath sounds: Wheezing present. Genitourinary: Exam position: Lithotomy position. Pubic Area: No rash. Vagina: Vaginal discharge present. Musculoskeletal: Right lower leg: No edema. Left lower leg: No edema. Skin: General: Skin is warm. Neurological: Mental Status: She is alert and oriented to person, place, and time. Psychiatric: Mood and Affect: Mood normal. Behavior: Behavior normal. Judgment: Judgment normal. Filed Vitals: 05/22/24 1336 BP: 103/64 Pulse: 70 Resp: 16 Temp: 98.7 ??F (37.1 ??C) TempSrc: Temporal SpO2: 95% Weight: 63 kg (139 lb) Height: 1.499 m (4' 11 ) Diagnoses/Impression: 1. UTI symptoms URINALYSIS AUTO DIP 2. Follow-up exam 3. Acute vaginitis fluconazole (DIFLUCAN) 150 MG tablet 4. Medication side effect 5. Glucosuria 6. Bronchitis predniSONE (DELTASONE) 20 MG tablet DISCONTINUED: predniSONE (DELTASONE) 20 MG tablet 7. Wheezing predniSONE (DELTASONE) 20 MG tablet DISCONTINUED: predniSONE (DELTASONE) 20 MG tablet Recommendations and Plan: Reviewed ER notes, imaging and workup. - Treat yeast infection. - Advise increased water intake to mitigate side effects of Jardiance. - Prescribe prednisone for five days to address wheezing. - Resume methotrexate after completing the course of prednisone. Follow-up as needed. She voiced understanding and agrees with the plan. All questions answered Orders Placed This Encounter URINALYSIS AUTO DIP DISCONTD: predniSONE (DELTASONE) 20 MG tablet predniSONE (DELTASONE) 20 MG tablet fluconazole (DIFLUCAN) 150 MG tablet Reviewed and updated this visit by provider: Thi Lugo MD Referring Provider: No ref. provider found PCP: Thi Lugo MD documented in this encounter Plan of Treatment Upcoming Encounters Date Type Department Care Team (Late st Contact Info) Description 10/02/2024 11:40 AM BANKING TEACHER Office Visit [facility] Multispecialty Care - [facility] [address] [facility] [place] [address] Johnnie Lr MD [address] [place] [address] 01/04/2025 9:50 AM CDT Office Visit [facility] Family Medicine - [place] [address] [place], [place] [id number] Emily Jordan MD [address] [place], [place] [id number] documented as of this encounter Procedures Procedure Name Priority Date/Time Associated Diagnosis Comments URINALYSIS AUTO DIP Routine 05/22/2024 UTI symptoms documented in this encounter Results * (ABNORMAL) URINALYSIS AUTO DIP (05/22/2024) COLOR (U) PALE YELLOW YELLOW [id number], [place] TRANSPARENCY HAZY(A) CLEAR MG-[address], [place] GLUCOSE (U) >=1000 mg/dl(A) NEGATIVE MG/DL [id number] (U) NEGATIVE NEGATIVE MG-[address], [place] KETONES MG/DL (U) NEGATIVE NEGATIVE MG/DL MG-[id number], [place] SPECIFIC GRAVITY (U) 1.015 1.001 - 1.035 MG-[address], [place] BLOOD (U) TRACE (Non Hemolyzed, Intact)(A) NEGATIVE MG-[address], [place] U PH 5.5 5.0 - 9.0 MG-[address] [place] PROTEIN (U) NEGATIVE NEGATIVE mg/dL MG-[address], [place] UROBILINOGEN 0.2 0.2 - 1.0 EU/dL = mg/dL MG-[address], [place] NITRITES NEGATIVE NEGATIVE MG/DL MG-[address], [place] LEUKOCYTES (U) NEGATIVE NEGATIVE MG-[address] [place] URINE SPECIMEN FROM URETHRA / Unknown 05/22/2024 Thi Lugo MD URINE ORDERABLES Final Result -[id number], [place] [address] [place] [address], documented in this encounter Visit Diagnoses Diagnosis UTI symptoms- Primary Follow-up exam Unspecified follow-up examination Acute vaginitis Vaginitis and vulvovaginitis, unspecified Medication side effect Unspecified adverse effect of unspecified drug, medicinal and biological substance Glucosuria Glycosuria Bronchitis Bronchitis, not specified as acute or chronic Wheezing documented in this encounter Additional Health Concerns Assessment Noted Time PHQ-9 Depression Total Score: 1 04/03/20 23 3:30 PM CDT documented as of this encounter Care Teams Youth Nutritional Monitor Relationship Specialty [place] [address] [place] [address] PCP - General FAMILY PRACTICE 09/29/21 06/08/24 [place] [address] [facility] [address] [place] [address] RHEUMATOLOGY 09/27/20 documented as of this encounter
--- OUTSIDE RECORDS SUMMARY | 2024-08-29 09:51 | XMS_ITS | Encounter Summary ---
Author Organization [facility] Address [facility]. 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 Gender Identity Female 09/12/2021 9:51 AM DIRECTOR TELEMETRY Sexual Orientation Straight 09/12/2021 9: 51 AM DIRECTOR TELEMETRY documented as of this encounter Plan of Treatment Upcoming Encounters Date Type Department Care Team (Late st Contact Info) Description 10/02/2024 11:40 AM DIRECTOR TELEMETRY Office Visit [facility] Medical [facility] Multispecialty Care - [address], [address] [place] [address] Johnnie Lr MD 3 [facility] [address] [place] [address] 01/04/2025 9:50 AM CDT Office Visit [facility] Medical Group Family Medicine - [place] [address] [place] [address] Emily Jordan MD [address] [place] [address] documented as of this encounter Procedures Procedure Name Priority Date/Time Associated Diagnosis Comments OUTSIDE LAB (SCAN ORDER) 02/11/2024 OUTSIDE LAB (SCAN ORDER) 02/11/2024 OUTSIDE LAB (SCAN ORDER) 02/11/2024 OUTSIDE LAB (SCAN ORDER) 02/11/2024 OUTSIDE LAB (SCAN ORDER) 02/11/2024 documented in this encounter Results * OUTSIDE LAB (SCAN ORDER) (02/11/2024) 02/11/2024 [facility] Scanned SCANNING Final Resu lt * OUTSIDE LAB (SCAN ORDER) (02/11/2024) 02/11/2024 [facility] Scanned SCANNING Final Resu lt * OUTSIDE LAB (SCAN ORDER) (02/11/2024) 02/11/2024 [facility] Scanned SCANNING Final Resu lt * OUTSIDE LAB (SCAN ORDER) (02/11/2024) 02/11/2024 [facility] Scanned SCANNING Final Resu lt * OUTSIDE LAB (SCAN ORDER) (02/11/2024) 02/11/2024 [facility] Scanned SCANNING Final Resu lt documented in this encounter Visit Diagnoses Not on filedocumented in this encounter Additional Health Concerns Assessment Noted Time PHQ-9 Depression Total Score: 1 04/03/20 23 3:30 PM CDT documented as of this encounter Care Teams Statement Processor Relationship Specialty [place] [address] [facility] [place] [address] PCP - General FAMILY PRACTICE 09/29/21 06/08/24 [place] [id number] [facility]. [facility] [address] [place] [address] RHEUMATOLOGY 09/27/20 documented as of this encounter
--- OUTSIDE RECORDS SUMMARY | 2024-08-29 09:51 | XMS_ITS | Encounter Summary ---
Author Organization [facility] Address [facility]. [place], [place] [address] [place] [address] Care Team Providers Care Multimedia Services Manager Name Role Phone Gladis Song MD Unavailable Thi Lugo MD Primary Care Provider [phone] Reason for Visit * Reason Comments Vascular Lab Study (SCAN) Encounter Details Date Type Department Care Team (Late Contact Info) Description 11/16/2023 Scan HEALTH INFO SRVCS Scanned, Doc [facility] Vascular Lab Study (SCAN) Social History Tobacco Use Types Packs/Day Years Used Date Smoking Tobacco: Never Passive Smoke Exposure: Never Smokeless Tobacco: Never Alcohol Use Standard Drinks/Week Comments Yes 0 (1 standard drink = 0.6 oz pur e alcohol) occassionally PHQ-2 Answer Date Recorded Patient Health Questionnaire-2 Score 0 04/03/2023 Comments No Sex and Gender Information Value Date Recorded Sex Assigned at Not on file Legal Sex Female 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 Gender Identity Female 09/12/2021 9:51 AM [employer]BER [employer] DIVISION MANAGER Sexual Orientation Straight 09/12/2021 9: 51 AM CH[employer]BER [employer] DIVISION MANAGER documented as of this encounter Plan of Treatment Upcoming Encounters Date Type Department Care Team ([facility] Contact Info) Description 10/02/2024 11:40 AM CHAMBER OF [employer] DIVISION MANAGER Office Visit [facility] Medical [facility] Multispecialty Care - [address], [address] [place] [phone] Johnnie Lr MD [address] [facility] [address] [place] [address] 01/04/2025 9:50 AM CDT Office Visit [facility] Medical Group Family Medicine - [place] [address] [place], [place] [address] Emily Jordan MD [address] [place], [place] [address] documented as of this encounter Procedures Procedure Name Priority Date/Time Associated Diagnosis Comments VASCULAR LAB GENERIC (SCAN ORDER) 11/16/2023 VASCULAR LAB GENERIC (SCAN ORDER) 11/16/2023 documented in this encounter Results * VASCULAR LAB GENERIC (SCAN ORDER) (11/16/2023) 11/16/2023 [facility] Scanned SCANNING Final Resu lt * VASCULAR LAB GENERIC (SCAN ORDER) (11/16/2023) 11/16/2023 [facility] Scanned SCANNING Final Resu lt documented in this encounter Visit Diagnoses Not on filedocumented in this encounter Additional Health Concerns Assessment Noted Time PHQ-9 Depression Total Score: 1 04/03/20 23 3:30 PM CDT documented as of this encounter Care Teams Multimedia Services Manager Relationship Specialty [place] [address] [place] [address] PCP - General FAMILY PRACTICE 09/29/21 06/08/24 [place] [address] [facility]. [address] [place] [address] RHEUMATOLOGY 09/27/20 documented as of this encounter
--- OUTSIDE RECORDS SUMMARY | 2024-08-29 09:51 | XMS_ITS | Encounter Summary ---
Author Organization [facility] Address [address] [place] [address]. [place], [place] [address] [place] [address] Care Team Providers Care Mold Hoister Name Role Phone Gladis Song MD Unavailable Thi Lugo MD Primary Care Provider [phone] Reason for Visit * Reason Comments Urinary Symptoms Encounter Details Date Type Department Care Team (Late st Contact Info) Description 05/09/2024 11:15 AM CDT - 05/09/2024 2:23 PM CDT Emergency [facility] Emergency Room [address] [place] [address] Checo Hollins MD [address] [place] [address] Urinary Symptoms Discharge Disposition: Home or Self Care (Routine [...] on file Legal Sex Female 10:22 PM JUNIOR NET DEVELOPER Gender Identity Female 09/12/2021 9:51 AM JUNIOR NET DEVELOPER Sexual Orientation Straight 09/12/2021 9: 51 AM JUNIOR NET DEVELOPER documented as of this encounter Last Filed Vital Signs Vital Sign Reading Time Taken Comments Blood Pressure 141/78 05/09/2024 2:20 PM CDT Pulse 72 05/09/2024 2:20 PM CDT Temperature 36.6 ??C (97.8 ??F) 05/09/2024 2:20 PM CD T Respiratory Rate 20 05/09/2024 2:20 PM CDT Oxygen Saturation 95% 05/09/2024 2:20 PM CDT Inhaled Oxygen Concentration - - Weight 63 kg (139 lb) 05/09/2024 11:22 AM CDT Height 149.9 cm (4' 11 ) 05/09/2024 11:22 AM CDT Body Mass Index 28.07 05/09/2024 11:22 AM CDT documented in this encounter Discharge Instructions * Discharge Instructions* Checo Hollins MD - 05/09/2024 1:30 PM CDT Take medication as prescribed. If symptoms worsen despite treatment, return to the ED immediately. Otherwise follow-up with your physician in the next 2 to 3 days. Your COVID is negative. * Attachments The following attachments cannot be sent through Care Everywhere. * Urinary Tract Infection Discharge Instructions, Adult (British) * Bronchitis, Adult ED (British) documented in this encounter Medications at Time of Discharge [...] 1 capsule (125 mcg total) daily. 11/30/2014 benzonatate (TESSALON) 200 MG capsule Take 1 capsule (200 mg total) by mouth 3 (three) times daily as needed for Cough. 20 capsule 05/09/2024 4 bisoprolol (ZEBETA) 5 MG tablet Take 1 tablet (5 mg total) by mouth daily. 06/12/2022 4 cephALEXin (KEFLEX) 500 MG capsule Take 1 capsule (500 mg total) by mouth 4 (four) times daily for 10 days. 40 capsule 05/09/2024 4 dicyclomine (BENTYL) 20 MG tablet TAKE [...] mouth daily. 180 tablet 3 02/24/2024 4 phenazopyridine (PYRIDIUM) 200 MG tablet Take 1 tablet (200 mg total) by mouth 3 (three) times daily as needed for Pain. 9 tablet 05/09/2024 4 potassium chloride CR 20 MEQ tablet TAKE 2 TABLETS EVERY MORNING AND 2 TABLETS EVERY EVENING 01/04/2020 4 zoster vaccine (SHINGRIX) (SHINGRIX) injectionIndicatio ns:Need for shingles vaccine Need 2 doses 2-6 months apart 1 each 1 02/24/2024 4 documented as of this encounter ED Notes * Checo Hollins MD - 05/09/2024 11:32 AM CDT ED NOTE Chief Complaint Chief Complaint Patient presents with ??? Urinary Symptoms History of Present Illness Urinary Symptoms Associated symptoms include frequency and urgency. Pertinent negatives include no chills, nausea orvomiting. Patient is a 73-year-old white female who comes to the emergency room complaining of dysuria urgency or frequency. Patient also complains of cough productive of yellow sputum after being exposed to her grandchildren with cause. Patient without any fever chills sore throat runny nose or congestion. Patient comes emergency room by way of private vehicle and appears to be in no apparent distress respiratory otherwise. Medical History ALLERGIES: Review of patient's allergies indicates: Allergen Reactions ??? Latex Rash ??? Sulfa Antibiotics Swelling ??? Levofloxacin Headache and Nausea Only ??? Nitrofurantoin Headache MEDICATIONS: Prior to Admission medications Medication Sig Start Date End Date Taking? Authorizing Provider albuterol sulfate HFA 108 (90 Base) MCG/ACT inhaler Inhale 2 puffs into the lungs every 4 (four) hours as needed for Wheezing. 03/25/24 Johnnie Lr MD atorvastatin 80 MG tablet TAKE 1 TABLET BY MOUTH EVERY DAY 05/26/19 [facility] bisoprolol (ZEBETA) 5 MG tablet Take 1 tablet (5 mg total) by mouth daily. 06/12/22 Default HistoryGenericprovider brimonidine (ALPHAGAN) 0.2 % ophthalmic solution INSTILL 1 DROP INTO BOTH EYES 3 TIMES A DAY 10/31/23 Default History Genericprovider calcium carbonate 600 MG tablet Take by mouth daily. [facility] Cholecalciferol (VITAMIN D3) 50 MCG (2000 UT) Cap take 1 by Oral route every day 11/30/14 [facility] dicyclomine (BENTYL) 20 MG tablet TAKE 1 TAB EVERY 8 HOURS NEEDED FOR STOMACH CRAMPING. 11/29/23 Default History Genericprovider ELIQUIS 5 MG tablet Take 1 tablet (5 mg total) by mouth 2 (two) times daily. 06/22/22 Default History Genericprovider empagliflozin (JARDIANCE) 10 MG tablet Take 1 tablet (10 mg total) by mouth daily. 06/21/23 DefaultHistory Genericprovider fluconazole (DIFLUCAN) 150 MG tablet Take 1 tablet (150 mg total) by mouth once. 02/22/23 Default History Genericprovider fluticasone furoate-vilanterol (BREO ELLIPTA) 100-25 MCG/ACT inhaler Inhale 1 puff into the lungs daily. Rinse and spit after use 03/25/24 Johnnie Lr MD folic acid (FOLVITE) 1 MG tablet TAKE 1 TABLET BY MOUTH EVERY DAY 11/27/22 Thi Lugo MD furosemide (LASIX) 20 MG tablet Take 1 tablet (20 mg total) by mouth daily. 06/22/22 Default History Genericprovider hydroCHLOROthiazide (HYDRODIURIL) 25 MG tablet Default History Genericprovider isosorbide mononitrate ER (IMDUR) 30 MG 24 hr tablet Take 1 tablet (30 mg total) by mouth daily. 10/19/22 Thi Lugo MD methotrexate 2.5 MG tablet 08/17/21 [facility] metoprolol succinate ER (TOPROL-XL) 50 MG 24 hr tablet Default History Genericprovider montelukast (SINGULAIR) 10 MG tablet take 1 tablet by mouth every day at night 03/25/24 Johnnie Lr MD nitroglycerin 0.4 MG SL tablet May repeat dose every 5 minutes for up to 3 doses total. 05/23/18 [facility] pantoprazole EC (PROTONIX) 40 MG tablet take 1 tablet by mouth every day 02/10/24 Thi Lugo MD PARoxetine (PAXIL) 20 MG tablet Take 2 tablets (40 mg total) by mouth daily. 02/24/24 Thi Lugo MD potassium chloride CR 20 MEQ tablet TAKE 2 TABLETS EVERY MORNING AND 2 TABLETS EVERY EVENING 01/04/20[facility] triamcinolone (KENALOG) 0.1 % cream Apply topically 2 (two) times daily. 11/11/23 Thi Lugo MD vitamin C 1000 MG tablet Take 1 tablet (1,000 mg total) by mouth daily. [facility] zoster vaccine (SHINGRIX) (SHINGRIX) injection Need 2 doses 2-6 months apart 02/24/24 Thi Lugo MD PAST MEDICAL HISTORY: Past Medical History: Diagnosis Date ??? Anxiety ??? Arthritis ??? Asthma (HHS/HCC) ??? Hypertension ??? Lupus (CMS/HCC HHS/HCC) ??? Sleep apnea ??? Stroke (CMS/HCC HHS/HCC) PAST SURGICAL HISTORY: Past Surgical History: Procedure Laterality Date ??? APPENDECTOMY ??? SECTION ??? COLONOSCOPY N/A 09/18/2023 COLONOSCOPY - negative performed by Randal Seth MD at [facility] OR ??? HC TRIGGER FINGER RELEASE ??? HYSTERECTOMY ??? SCREENING COLONOSCOPY 2018 ??? TONSILLECTOMY FAMILY HISTORY: Family History Problem Relation Name Age of Onset ??? Heart Disease Mother ??? TB Father ??? Other (lungs) Father SOCIAL HISTORY: Social History Tobacco Use ??? Smoking status: Never Passive exposure: Never ??? Smokeless tobacco: Never Vaping Use ??? Vaping status: Never Used Substance Use Topics ??? Alcohol use: Yes Comment: occassionally ??? Drug use: Never Review of Systems Review of Systems Constitutional: Negative for chills and fever. Respiratory: Positive for cough. Negative for shortness of breath. Cardiovascular: Negative for chest pain. Gastrointestinal: Negative for abdominal pain, diarrhea, nausea and vomiting. Genitourinary: Positive for dysuria, frequency and urgency. Neurological: Negative for dizziness, weakness and headaches. All other systems reviewed and are negative. Physical Exam Filed Vitals: 05/09/24 1122 05/09/24 1124 BP: 101/52 Pulse: 75 Resp: 18 Temp: 97.5 ??F (36.4 ??C) SpO2: 96% Weight: 63 kg (139 lb) Height: 1.499 m (4' 11 ) Physical Exam Vitals and nursing note reviewed. Constitutional: General: She is not in acute distress. Appearance: Normal appearance. She is not ill-appearing, toxic-appearing or diaphoretic. HENT: Head: Normocephalic and atraumatic. Nose: Nose normal. No congestion or rhinorrhea. Mouth/Throat: Mouth: Mucous membranes are moist. Neck: Vascular: No carotid bruit. Cardiovascular: Rate and Rhythm: Normal rate and regular rhythm. Pulses: Normal pulses. Heart sounds: Normal heart sounds. No murmur heard. No friction rub. No gallop. Pulmonary: Effort: Pulmonary effort is normal. No respiratory distress. Breath sounds: Normal breath sounds. No stridor. No wheezing, rhonchi or rales. Chest: Chest wall: No tenderness. Abdominal: General: Abdomen is flat. Bowel sounds are normal. There is no distension. Palpations: Abdomen is soft. There is no mass. Tenderness: There is no abdominal tenderness. There is no right CVA tenderness, left CVA tenderness, guarding or rebound. Hernia: No hernia is present. Musculoskeletal: General: No swelling, tenderness, deformity or signs of injury. Normal range of motion. Cervical back: Normal range of motion and neck supple. No rigidity or tenderness. Right lower leg: No edema. Left lower leg: No edema. Lymphadenopathy: Cervical: No cervical adenopathy. Skin: General: Skin is warm and dry. Capillary Refill: Capillary refill takes less than 2 seconds. Findings: No rash. Neurological: General: No focal deficit present. Mental Status: She is alert. Motor: No weakness. Psychiatric: Mood and Affect: Mood normal. Thought Content: Thought content normal. Diagnostic Studies / Procedures ELECTROCARDIOGRAMS: No results found for this visit on 05/09/24. LABORATORY STUDIES: Results for orders placed or performed during the hospital encounter of 05/09/24 Urinalysis, Auto, Complete Result Value Ref Range COLOR (U) YELLOW TRANSPARENCY CLOUDY SPECIFIC GRAVITY (U) 1.020 1.000 - 1.030 U PH 6.0 5.0 - 9.0 LEUKOCYTES (U) 2+ (A) NEGATIVE NITRITES NEGATIVE NEGATIVE PROTEIN RANDOM (U) 1+ (A) NEGATIVE GLUCOSE (U) 3+ (A) NEGATIVE KETONES MG/DL (U) NEGATIVE NEGATIVE BILIRUBIN (U) NEGATIVE NEGATIVE BLOOD (U) 2+ (A) NEGATIVE WBC/HPF 50-100 0 - 5 /HPF RBC/HPF 10-25 0 - 5 /HPF EPI/HPF NONE SEEN /HPF BACTERIA (U) FEW /HPF CORONAVIRUS (COVID-19) MOLECULAR Specimen: NASOPHARYNGEAL SWAB Result Value Ref Range CORONAVIRUS SARS COV 2 RNA NEGATIVE NEGATIVE Specimen Type NASAL IMAGING STUDIES XR CHEST PORTABLE Final Result by User, [id number] (05/09 122) [facility] [address] [place] [address] Examination: XR CHEST PORTABLE Exam time: 05/09/2024 11:52 AM Clinical history: Cough for 4 days. Comparison: Chest radiographs 07/16/2022, 01/09/2022, and 09/20/2021 and chest and right rib radiographs 06/03/2023. Technique: Upright AP portable radiograph of the chest. Findings: The cardiomediastinal silhouette is normal in size. Pulmonary vasculature is appropriately distributed. There are atherosclerotic calcifications of the thoracic aorta. There is tortuosity of the descending thoracic aorta. The lungs are clear of active opacities. There is no sizable pleural effusion or pneumothorax. There is mild leftward curvature of the mid to lower thoracic spine. IMPRESSION: No radiographic evidence is seen to suggest acute cardiopulmonary abnormality. Referred By: Interpreted By: Luis Daniel Ontiveros DO, 05/09/2024 12:21 PM ED Course / Medical Decision Making MDM Number of Diagnoses or Management Options Diagnosis management comments: Patient is negative for COVID chest x-ray is clear. I believe that patient just may have bronchitis. However patient will be given Rocephin 1 g IM x 1 here and started on Keflex for her UTI. That may cover patient's upper respiratory tract infection as well. Patient will be discharged to home on Pyridium as well. Risk of Complications, Morbidity, and/or Mortality Presenting problems: moderate Diagnostic procedures: moderate Management options: moderate Medications cefTRIAXone (ROCEPHIN) 1 g in lidocaine (PF) (XYLOCAINE) 1 % IM syringe (has no administration in time range) Clinical Impression Urinary tract infection with hematuria, site unspecified (Primary) Bronchitis Disposition: Discharge Current Discharge Medication List Follow-[place]: [place] [address] [facility] [address] [place] [address] Checo Hollins MD 05/09/2024 13:30 Checo Hollins MD 05/11/24 0803 * Cassie Law RN - 05/09/2024 11:21 AM CDTSummary: Triage Pt C/O FREQUENCY AND BURNING WHEN URINATING. DENIES FEVER DENIES BLOOD IN URINE. STATES URINE IS CLOUDY. documented in this encounter Plan of Treatment Upcoming Encounters Date Type Department Care Team (Late st Contact Info) Description 10/02/2024 11:40 AM JUNIOR NET DEVELOPER Office Visit [facility] Multispecialty Care - [facility] [address] [facility] [place] [phone] Johnnie Lr MD [address] [facility] [address] [place] [address] 01/04/2025 9:50 AM CDT Office Visit [facility] Family Medicine - [place] [address] [place] [address] Emily Jordan MD [address] [place] [address] documented as of this encounter Procedures Procedure Name Priority Date/Time Associated Diagnosis Comments CORONAVIRUS (COVID 19) STAT 05/09/2024 12:52 PM CDT XR CHEST PORTABLE STAT 05/09/2024 12: 10 PM CDT URINALYSIS, AUTO, COMPLETE STAT 05/09/2024 11:30 AM CDT documented in this encounter Results * CORONAVIRUS (COVID-19) MOLECULAR (05/09/2024 12:52 PM CDT) CORONAVIRUS SARS COV 2 RNA NEGATIVE NEGATIVE 05/09/2024 1:24 PM CDT [facility] Comment: NEGATIVE RESULTS DO NOT RULE OUT COVID 19 AND SHOULD NOT BE USED THE SOLE BASIS FOR TREATMENT OR PATIENT MANAGEMENT DECISIONS, INCLUDING INFECTION CONTROL DECISIONS. NEGATIVE RESULTS SHOULD BE CONSIDERED IN THE CONTEXT OF A PATIENT'S RECENT EXPOSURES, HISTORY AND THE PRESENCE OF CLINICAL SIGNS AND SYMPTOMS CONSISTENT WITH COVID 19. THE ID NOW COVID-19 2.0 TEST HAS BEEN AUTHORIZED BY THE FDA UNDER EAU FOR USE BY AUTHORIZED LABORATORIES. PERFORMED BY NUCLEIC ACID AMPLIFICATION FOR MOLECULAR QUALITATIVE DETECTION OF SARS-COV-2. SPECIMEN TYPE NASAL 05/09/2024 12:52 PM CDT [facility] NASOPHARYNGEAL SWAB / Unknown 05/09/2024 12:52 PM CDT us Checo Hollins MD MICROBIOLOGY - GENERAL ORDERABL ES Final Result [facility] [address] [place] [address], [place] [phone] * XR CHEST PORTABLE (05/09/2024 12:10 PM CDT) Anatomical Region Laterality Modality Chest Radiographic Ashley ging 05/09/2024 12:2 1 PM CDT Impressions 05/09/2024 12:22 PM CDT IMPRESSION: No radiographic evidence is seen to suggest acute cardiopulmonary abnormality. Referred By: ?? Interpreted By: Luis Daniel Ontiveros DO, 05/09/2024 12:21 PM Narrative 05/09/2024 12:22 PM CDT [facility] [address] [facility] [place] [address] Examination: XR CHEST PORTABLE Exam time: 05/09/2024 11:52 AM Clinical history: Cough for 4 days. Comparison: Chest radiographs 07/16/2022, 01/09/2022, and 09/20/2021 and chest and right rib radiographs 06/03/2023. Technique: Upright AP portable radiograph of the chest. Findings: The cardiomediastinal silhouette is normal in size. ??Pulmonary vasculature is appropriately distributed. ??There are atherosclerotic calcifications of the thoracic aorta. ??There is tortuosity of the descending thoracic aorta. ??The lungs are clear of active opacities. ??There is no sizable pleural effusion or pneumothorax. ??There is mild leftward curvature of the mid to lower thoracic spine. Procedure Note Luis Daniel Ontiveros DO - 05/09/[address] [place] [address] Examination: XR CHEST PORTABLE Exam time: 05/09/2024 11:52 AM Clinical history: Cough for 4 days. Comparison: Chest radiographs 07/16/2022, 01/09/2022, and 09/20/2021 andchest and right rib radiographs 06/03/2023. Technique: Upright AP portable radiograph of the chest. Findings: The cardiomediastinal silhouette is normal in size. Pulmonaryvasculature is appropriately distributed. There are atheroscleroticcalcifications of the thoracic aorta. There is tortuosity of thedescending thoracic aorta. The lungs are clear of active opacities.There is no sizable pleural effusion or pneumothorax. There is mildleftward curvature of the mid to lower thoracic spine. IMPRESSION: No radiographic evidence is seen to suggest acute cardiopulmonaryabnormality. Referred By: Interpreted By: Luis Daniel Ontiveros DO, 05/09/2024 12:21 PM Checo Hollins MD GENERAL IMAGING Final Result * (ABNORMAL) Urinalysis, Auto, Complete (05/09/2024 11:30 AM CDT) COLOR (U) YELLOW 05/09/2024 1:12 PM CDT [facility] TRANSPARENCY CLOUDY 05/09/2024 1:12 PM CDT [facility] SPECIFIC GRAVITY (U) 1.020 1.000 - 1.030 05/09/2024 1:12 PM CDT [facility] U PH 6.0 5.0 - 9.0 05/09/2024 1:12 PM CDT [facility] LEUKOCYTES (U) 2+(A) NEGATIVE 05/09/2024 1:12 PM CDT [facility] NITRITES NEGATIVE NEGATIVE 05/09/2024 1:12 PM CDT [facility] PROTEIN RANDOM (U) 1+(A) NEGATIVE 05/09/2024 1:12 PM CDT [facility] GLUCOSE (U) 3+(A) NEGATIVE 05/09/2024 1:12 PM CDT [facility] KETONES MG/DL (U) NEGATIVE NEGATIVE 05/09/2024 1:12 PM CDT [facility] BILIRUBIN (U) NEGATIVE NEGATIVE 05/09/2024 1:12 PM CDT [facility] BLOOD (U) 2+(A) NEGATIVE 05/09/2024 1:12 PM CDT [facility] WBC/HPF 50-100 0 - 5 /HPF 05/09/2024 1:12 PM CDT [facility] RBC/HPF 10-25 0 - 5 /HPF 05/09/2024 1:12 PM CDT [facility] EPI/HPF NONE SEEN /HPF 05/09/2024 1:12 PM CDT [facility] BACTERIA (U) FEW /HPF 05/09/2024 1:12 PM CDT [facility] URINE SPECIMEN OBTAINED BY CLEAN CATCH PROCEDURE / Unknown 05/09/2024 11:30 AM CDT us Checo Hollins MD URINE ORDERABLES Final Result Performing Organization Address City/State/[facility] Co de Phone Number [facility] [address] [place] [address], [place] [phone] documented in this encounter Visit Diagnoses Diagnosis Urinary tract infection with hematuria, site unspecified- Primary Bronchitis Bronchitis, not specified as acute or chronic documented in this encounter Administered Medications Inactive Administered Medications - up to 3 most recent administrations Medication Order MAR Action Action Date Dose Rate Site cefTRIAXone (ROCEPHIN) 1 g in lidocaine (PF) (XYLOCAINE) 1 % IM syringe 1 g (rounded from 1,000 mg), Intramuscular, Once, 1 dose, On 05/09/24 at 1345, Reconstitute 1 g vial with 2.1 mL of ordered diluent resulting in final concentration of 350 mg/mL. Then withdraw appropriate volume for patient specific dose. Given 05/09/2024 2:12 PM CDT 1 g Right Dorsal Gluteal documented in this encounter Active and Recently Administered Medications Times are shown in CDT. Scheduled Medication Order 05/07/2024 05/08/2024 05/09/2024 cefTRIAXone (ROCEPHIN) 1 g in lidocaine (PF) (XYLOCAINE) 1 % IM syringe (COMPLETED) 1 g (rounded from 1,000 mg), Intramuscular, Once, 1 dose, On 05/09/24 at 1345, Reconstitute 1 g vial with 2.1 mL of ordered diluent resulting in final concentration of 350 mg/mL. Then withdraw appropriate volume for patient specific dose. 1412 (Given - Provid er: Cassie Law RN) documented in this encounter Additional Health Concerns Infection Onset Date Last Indicated Resolved Time COVID-19 Rule Out 05/09/2024 05/09/2024 05/09/2024 1:24 PM CDT Assessment Noted Time PHQ-9 Depression Total Score: 1 04/03/20 23 3:30 PM CDT documented as of this encounter Care Teams Mold Hoister Relationship Specialty [place] [address] [facility] [place] [address] PCP - General FAMILY PRACTICE 09/29/21 06/08/24 [place] [address] [facility]. [facility] [address] [place] [address] RHEUMATOLOGY 09/27/20 documented as of this encounter
--- OUTSIDE RECORDS SUMMARY | 2024-08-29 09:51 | XMS_ITS | Encounter Summary ---
Author Organization [facility] Address [address] [place] [address]. [place], [place] [id number] [place] [address] Care Team Providers Care Material Control Specialist Name Role Phone Gladis Song MD Unavailable Thi Lugo MD Primary Care Provider [phone] Reason for Visit * Reason Onset Date Comments Pre-visit Gap Closure 02/20/2024 Encounter Details Date Type Department Care Team (Late st Contact Info) Description 02/20/2024 Patient Outreach [facility] Family & Internal Medicine - [address] [phone] Thi Lugo MD [address] [place] [address]. [address] [place], [place] [phone] Pre-visit Gap Closure Social History Tobacco Use Types Packs/Day Years [...] on file Legal Sex Female 10:22 PM HOST/HOSTESS GROUND Gender Identity Female 09/12/2021 9:51 AM HOST/HOSTESS GROUND Sexual Orientation Straight 09/12/2021 9: 51 AM HOST/HOSTESS GROUND documented as of this encounter Progress Notes * Orestes Gan - 02/20/2024 7:13 AM CDT Preventive Screenings: Breast Cancer Screening: N/A Notes: Colorectal Cancer Screening: Up to Date Notes: 09/18/2023 Diabetic Eye Exam: N/A Notes: Falls Risk Screening: Needs Follow Up Notes: Tobacco Cessation: N/A Notes: Labs: BMP/CMP: N/A Notes: Hemoglobin A1c: N/A Notes: Lipid: N/A Notes: Urine Albumin-Creatinine Ratio: N/A Notes: Immunizations: Pneumococcal: Up to Date Notes: Shingles: Needs Follow Up Notes: documented in this encounter Plan of Treatment Upcoming Encounters Date Type Department Care Team (Late st Contact Info) Description 10/02/2024 11:40 AM HOST/HOSTESS GROUND Office Visit [facility] Multispecialty Care - [facility] [address] [facility] [place] [address] Johnnie Lr MD [address] [facility] [address] [place] [address] 01/04/2025 9:50 AM CDT Office Visit [facility] Family Medicine - [place] [address] [facility] [address] [place] [id number] Emily Jordan MD [address] [place] [address] documented as of this encounter Visit Diagnoses Not on filedocumented in this encounter Additional Health Concerns Assessment Noted Time PHQ-9 Depression Total Score: 1 04/03/20 23 3:30 PM CDT documented as of this encounter Care Teams Material Control Specialist Relationship Specialty [place] [address] [address] [place] [phone] PCP - General FAMILY PRACTICE 09/29/21 06/08/[address] [place] [address] [facility]. [facility] [address] [place] [address] RHEUMATOLOGY 09/27/20 documented as of this encounter
--- OUTSIDE RECORDS SUMMARY | 2024-08-29 09:51 | XMS_ITS | Encounter Summary ---
Author Organization [facility] Address [address] [place] [address]. [place], [place] [address] [place] [address] Care Team Providers Care Machine Strap Buckler Name Role Phone Gladis Song MD Unavailable Thi Lugo MD Primary Care Provider [phone] Encounter Details Date Type Department Care Team (Late st Contact Info) Description 06/01/2024 9:10 AM CDT Laboratory Only [facility] Medical Group Family & Internal Medicine [address] [address] Thi Lugo MD [address] [place] [address]. [address] [place] [address] Social History Tobacco Use Types Packs/Day Years [...] on file Legal Sex Female 10:22 PM BRANCH OPERATIONS COORDINATOR Gender Identity Female 09/12/2021 9:51 AM BRANCH OPERATIONS COORDINATOR Sexual Orientation Straight 09/12/2021 9: 51 AM BRANCH OPERATIONS COORDINATOR documented as of this encounter Plan of Treatment Upcoming Encounters Date Type Department Care Team (Late st Contact Info) Description 10/02/2024 11:40 AM BRANCH OPERATIONS COORDINATOR Office Visit [facility] Medical [facility] Multispecialty Care - [facility] [address] [facility] [address] [place] [address] Johnnie Lr MD [address] [facility] [address] [place] [address] 01/04/2025 9:50 AM CDT Office Visit [facility] Family Medicine - [place] [address] [place] [address] Emily Jordan MD [address] [place] [address] documented as of this encounter Procedures Procedure Name Priority Date/Time Associated Diagnosis Comments VENIPUNC ARM DRAW Routine 06/01/2024 9:03 AM CDT Tiredness Encounter for routine history and physical examination of adult Vitamin D deficiency documented in this encounter Visit Diagnoses Diagnosis Tiredness- Primary Other malaise and fatigue Encounter for routine history and physical examination of adult Vitamin D deficiency Unspecified vitamin D deficiency documented in this encounter Additional Health Concerns Assessment Noted Time PHQ-9 Depression Total Score: 1 04/03/20 23 3:30 PM CDT documented as of this encounter Care Teams Machine Strap Buckler Relationship Specialty [place] [address] [facility] [address] [place] [address] PCP - General FAMILY PRACTICE 09/29/21 06/08/24 [place] [address] [facility]. [address] [place] [address] RHEUMATOLOGY 09/27/20 documented as of this encounter
--- OUTSIDE RECORDS SUMMARY | 2024-08-29 09:51 | XMS_ITS | Encounter Summary ---
Author Organization [facility] Address [address] [place] [address]. [place], [place] [address] [place] [address] Care Team Providers Care Cement Mixer Driver Name Role Phone Gladis Song MD Unavailable Thi Lugo MD Primary Care Provider [phone] Reason for Visit * Reason Onset Date Comments Other 05/29/2024 Side effect of p rednisone ? Encounter Details Date Type Department Care Team (Late st Contact Info) Description 05/29/2024 Telephone [facility] Medical Group Family & Internal Medicine [address] [address] Thi Lugo MD [address] [place] [address]. [address] [place] [address] Other (Side effect of prednisone ? ) Social History Tobacco Use Types Packs/Day [...] on file Legal Sex Female 10:22 PM INDUSTRIAL HYGIENE MANAGER Gender Identity Female 09/12/2021 9:51 AM INDUSTRIAL HYGIENE MANAGER Sexual Orientation Straight 09/12/2021 9: 51 AM INDUSTRIAL HYGIENE MANAGER documented as of this encounter Progress Notes * Cristal Platt RN - 05/29/2024 12:16 PM CDT Noted appt today at 1500. * Ladonna Thomson LPN - 05/29/2024 9:36 AM CDT Pt called states that Dr. Lugo ordered Prednisone 40 mg daily she completed dosage on 05/25/24 andsince has been weak shaking fatigue and past out on 05/28/24 she thinks it is a reaction to prednisone Has appt with Dr. Lucio 05/29/24 FYI [phone] documented in this encounter Plan of Treatment Upcoming Encounters Date Type Department Care Team (Late st Contact Info) Description 10/02/2024 11:40 AM INDUSTRIAL HYGIENE MANAGER Office Visit [facility] Medical Group Multispecialty Care - [facility] [address] [facility] [address] [place] [id number] Johnnie Lr MD [address] [facility] [place] [address] 01/04/2025 9:50 AM CDT Office Visit [facility] Medical Group Family Medicine - [place] [address] [place] [address] Emily Jordan MD [address] [place], [place] [address] documented as of this encounter Visit Diagnoses Not on filedocumented in this encounter Additional Health Concerns Assessment Noted Time PHQ-9 Depression Total Score: 1 04/03/20 23 3:30 PM CDT documented as of this encounter Care Teams Cement Mixer Driver Relationship Specialty [place] [address] [address] [place] [address] PCP - General FAMILY PRACTICE 09/29/21 06/08/24 [place] [id number] [facility]. [facility] [address] [place] [address] RHEUMATOLOGY 09/27/20 documented as of this encounter
--- OUTSIDE RECORDS SUMMARY | 2024-08-29 09:51 | XMS_ITS | Encounter Summary ---
Author Organization [facility] Address [facility] [place] [address] [place] [address] Care Team Providers Care Web Art Director Name Role Phone Gladis Song MD Unavailable Thi Lugo MD Primary Care Provider [phone] Encounter Details Date Type Department Care Team (Latest Contact Info) Description 03/25/2024 Travel Social History Tobacco Use Types Packs/Day [...] on file Legal Sex Female 10:22 PM SPORTS MANAGEMENT INTERN Gender Identity Female 09/12/2021 9:51 AM SPORTS MANAGEMENT INTERN Sexual Orientation Straight 09/12/2021 9: 51 AM SPORTS MANAGEMENT INTERN documented as of this encounter Plan of Treatment Upcoming Encounters Date Type Department Care Team (Late st Contact Info) Description 10/02/2024 11:40 AM SPORTS MANAGEMENT INTERN Office Visit [facility] Medical Group Multispecialty Care - [address], [address] [place] [address] Johnnie Lr MD 3 [facility] [address] [place] [address] 01/04/2025 9:50 AM CDT Office Visit [facility] Medical Group Family Medicine - [place] [address] [place] [address] Emily Jordan MD [address] [place] [address] documented as of this encounter Visit Diagnoses Not on filedocumented in this encounter Additional Health Concerns Assessment Noted Time PHQ-9 Depression Total Score: 1 04/03/20 23 3:30 PM CDT documented as of this encounter Care Teams Web Art Director Relationship Specialty [place] [address] [facility] [place] [address] PCP - General FAMILY PRACTICE 09/29/21 06/08/24 [place] [address] [facility] [place] [address] RHEUMATOLOGY 09/27/20 documented as of this encounter
--- OUTSIDE RECORDS SUMMARY | 2024-08-29 09:51 | XMS_ITS | Encounter Summary ---
Author Organization [facility] Address [facility] [place] [address] [place] [address] Care Team Providers Care Receptionist Name Role Phone Gladis Song MD Unavailable Thi Lugo MD Primary Care Provider [phone] Encounter Details Date Type Department Care Team (Latest Contact Info) Description 05/09/2024 Travel Social History Tobacco Use Types Packs/Day [...] on file Legal Sex Female 10:22 PM LIGHT RAIL OPERATOR Gender Identity Female 09/12/2021 9:51 AM LIGHT RAIL OPERATOR Sexual Orientation Straight 09/12/2021 9: 51 AM LIGHT RAIL OPERATOR documented as of this encounter Plan of Treatment Upcoming Encounters Date Type Department Care Team (Late st Contact Info) Description 10/02/2024 11:40 AM LIGHT RAIL OPERATOR Office Visit [facility] Medical Group Multispecialty Care - [address], [address] [place] [address] Johnnie Lr MD 3 [facility] [address] [place] [address] 01/04/2025 9:50 AM CDT Office Visit [facility] Medical Group Family Medicine - [place] [address] [place] [address] Emily Jordan MD [address] [place] [address] documented as of this encounter Visit Diagnoses Not on filedocumented in this encounter Additional Health Concerns Infection Onset Date Last Indicated Resolved Time COVID-19 Rule Out 05/09/2024 05/09/2024 05/09/2024 1:24 PM CDT Assessment Noted Time PHQ-9 Depression Total Score: 1 04/03/20 23 3:30 PM CDT documented as of this encounter Care Teams Receptionist Relationship Specialty [place] [address] [facility]. [address] [place] [address] PCP - General FAMILY PRACTICE 09/29/21 06/08/24 [place] [address] [facility]. [address] [place] [address] RHEUMATOLOGY 09/27/20 documented as of this encounter
--- OUTSIDE RECORDS SUMMARY | 2024-08-29 09:51 | XMS_ITS | Encounter Summary ---
Author Organization [facility] Address [facility] [place] [address] [place] [address] Care Team Providers Care Wet Process Miller Name Role Phone Gladis Song MD Unavailable Thi Lugo MD Primary Care Provider [phone] Encounter Details Date Type Department Care Team (Latest Contact Info) Description 04/08/2024 Travel Social History Tobacco Use Types Packs/Day [...] on file Legal Sex Female 10:22 PM SUPERCHARGER MECHANIC Gender Identity Female 09/12/2021 9:51 AM SUPERCHARGER MECHANIC Sexual Orientation Straight 09/12/2021 9: 51 AM SUPERCHARGER MECHANIC documented as of this encounter Plan of Treatment Upcoming Encounters Date Type Department Care Team (Late st Contact Info) Description 10/02/2024 11:40 AM SUPERCHARGER MECHANIC Office Visit [facility] Medical Group Multispecialty Care - [address], [address] [place] [address] Johnnie Lr MD 3 [facility] [address] [place] [address] 01/04/2025 9:50 AM CDT Office Visit [facility] Medical Group Family Medicine - [place] [address] [place] [address] Emily Jordan MD [address] [place] [address] documented as of this encounter Visit Diagnoses Not on filedocumented in this encounter Additional Health Concerns Assessment Noted Time PHQ-9 Depression Total Score: 1 04/03/20 23 3:30 PM CDT documented as of this encounter Care Teams Wet Process Miller Relationship Specialty [place] [address] [facility]. [address] [place] [address] PCP - General FAMILY PRACTICE 09/29/21 06/08/24 [place] [address] [facility]. [address] [place] [address] RHEUMATOLOGY 09/27/20 documented as of this encounter
--- OUTSIDE RECORDS SUMMARY | 2024-08-29 09:51 | XMS_ITS | Encounter Summary ---
Author Organization [facility] Address [address] [place] [address]. [place], [place] [address] [place] [address] Care Team Providers Care Lighting Specialist Name Role Phone Gladis Song MD Unavailable Thi Lugo MD Primary Care Provider [phone] Reason for Visit * Reason Comments Follow Up Pt f/u states she is very low on energy and is concerned about her vision going all out/passing out. Encounter Details Date Type Department Care Team (Late st Contact Info) Description 05/29/2024 3:00 PM CDT Office Visit [facility] Family & Internal Medicine [address] [address] Lm Wilhelm MD [address] [place] [address] [place] [address] Follow Up (Pt f/u states she is very low on energy and is concerned about her vision going all out/passing out.) Social History Tobacco Use Types Packs/Day Years [...] on file Legal Sex Female 10:22 PM GENERAL ASSEMBLER INSTALLER Gender Identity Female 09/12/2021 9:51 AM GENERAL ASSEMBLER INSTALLER Sexual Orientation Straight 09/12/2021 9: 51 AM GENERAL ASSEMBLER INSTALLER documented as of this encounter Last Filed Vital Signs Vital Sign Reading Time Taken Comments Blood Pressure 101/62 05/29/2024 2:48 PM CDT Pulse 77 05/29/2024 2:48 PM CDT Temperature 36.8 ??C (98.2 ??F) 05/29/2024 2:48 PM CD T Respiratory Rate 19 05/29/2024 2:48 PM CDT Oxygen Saturation 97% 05/29/2024 2:48 PM CDT Inhaled Oxygen Concentration - - Weight 61.8 kg (136 lb 3.2 oz) 05/29/2024 2:48 P M CDT Height 149.9 cm (4' 11 ) 05/29/2024 2:48 PM CDT Body Mass Index 27.51 05/29/2024 2:48 PM CDT documented in this encounter Progress Notes * Lm Wilhelm MD - 05/29/2024 3:00 PM CDT Reason for Visit: Follow Up (Pt f/u states she is very low on energy and is concerned about her vision going all out/passing out.) History of Present Illness: This is a 72-year-old white female patient of Dr. Lugo with a history of asthma, Prediabetes, CVAand paroxysmal afib was on Eliquis, CAD, heart failure preserved ejection fraction, SLE- on methotrexate for SLE, prediabetes, peripheral neuropathy, chronic GERD, restless legs and hypertension Patient was seen by Dr. Lugo following ER visit for UTI and was prescribed some prednisone 20 mg twice daily for 5 days After stopping on medication the previous day felt more tired. Denied feeling any chest pain, chestpressure or short of breath. Patient also running low blood pressure at home Denies having any urine symptoms. ROS: Review of Systems Constitutional: Positive for fatigue. Negative for fever and unexpected weight change. Respiratory: Negative for cough and shortness of breath. Cardiovascular: Negative for chest pain, palpitations and leg swelling. Gastrointestinal: Negative for abdominal pain and vomiting. Endocrine: Negative for cold intolerance. Genitourinary: Negative for difficulty urinating. Medications: Current Outpatient Medications: albuterol sulfate HFA [...] Oral route every day, Disp: , Rfl: ELIQUIS 5 MG tablet, [...] Rfl: 3 nitroglycerin 0.4 MG SL tablet, As needed, [...] total) by mouth daily., Disp: , Rfl: dicyclomine (BENTYL) 20 MG tablet, TAKE 1 TAB EVERY 8 HOURS NEEDED FOR STOMACH CRAMPING. (Patient not taking: Reported on 05/29/2024), Disp: , Rfl: methotrexate 2.5 MG tablet, , Disp: , Rfl: zoster vaccine (SHINGRIX) (SHINGRIX) injection, Need 2 doses 2-6 months apart (Patient not taking: Reported on 05/22/2024), Disp: 1 each, Rfl: 1 Allergies Allergen Reactions Latex Rash Sulfa Antibiotics Swelling Levofloxacin Headache and Nausea Only Nitrofurantoin Headache Past Medical History: Diagnosis Date Anxiety Arthritis Asthma ([facility] Hypertension Lupus ([facility]) Sleep apnea Stroke ([facility]) Past Surgical History: Procedure Laterality Date APPENDECTOMY SECTION COLONOSCOPY N/A 09/18/2023 COLONOSCOPY - negative performed by Randal Seth MD at [facility] OR [facility]IG[facility] RELEASE HYSTERECTOMY SCREENING [...] No partnership data on file Physical Exam Constitutional: General: She is awake. Appearance: Normal appearance. She is well-developed and overweight. HENT: Head: Normocephalic and atraumatic. Neck: Thyroid: No thyromegaly. Trachea: Trachea normal. Cardiovascular: Rate and Rhythm: Normal rate and regular rhythm. Heart sounds: Normal heart sounds. No murmur heard. Pulmonary: Effort: Pulmonary effort is normal. Breath sounds: Normal breath sounds and air entry. Abdominal: General: Abdomen is flat. Bowel sounds are normal. Palpations: Abdomen is soft. Tenderness: There is no abdominal tenderness. Musculoskeletal: Cervical back: Neck supple. Right lower leg: No edema. Left lower leg: No edema. Neurological: Mental Status: She is alert. Psychiatric: Mood and Affect: Mood and affect normal. 02/24/2024 PHQ2/PHQ 9 DEPRESSION SCREEN QUESTIONAIRE Little interest or pleasure in doing things Not at all Feeling down, depressed, or hopeless Not at all Patient Health Questionnaire-2 Score 0 Filed Vitals: 05/29/24 1448 BP: 101/62 Pulse: 77 Resp: 19 Temp: 98.2 ??F (36.8 ??C) TempSrc: Temporal SpO2: 97% Weight: 61.8 kg (136 lb 3.2 oz) Height: 1.499 m (4' 11 ) Assessment and Plan: 1. Tiredness Probably due to low blood pressure versus sudden discontinuation of 40mg prednisone. Rule out other causes - COMPREHENSIVE METABOLIC PANEL; Future - TSH W/REFLEX; Future - CBC W/DIFF AUTOMATED; Future - VITAMIN D, 25 OH; Future 2. Encounter for routine history and physical examination of adult Baseline labs today - LIPID PANEL; Future 3. Low blood pressure reading Will hold off the HCTZ for now Patient call office if blood pressure is still running low 4. Vitamin D deficiency Rule out the deficiency - VITAMIN D, 25 OH; Future 5. UTI symptoms Symptomatically feels better Rule out new infection since she was feeling tired - URINE BACTERIA CULTURE; Future Reviewed and updated this visit by provider: LM WILHELM MD documented in this encounter Plan of Treatment Upcoming Encounters Date Type Department Care Team (Late st Contact Info) Description 10/02/2024 11:40 AM GENERAL ASSEMBLER INSTALLER Office Visit [facility] Multispecialty Care - [facility] [address] [place] [id number] Johnnie Lr MD [address] [place] [address] 01/04/2025 9:50 AM CDT Office Visit [facility] Family Medicine - [place] [address] [place] [phone] Emily Jordan MD [address] [place], [place] [id number] documented as of this encounter Results * VITAMIN D, 25 OH (06/01/2024 9:02 AM CDT) [facility] VITAMIN D 25 HYDROXY S/P/B 35 30 - 100 NG/ML 06/01/2024 2:31 PM CDT [facility] Comment: ? INTERPRETATION ? DEFICIENT ??<20 ? INSUFFICIENT 20-29 ?SUFFICIENT 30-100 06/01/2024 9:02 AM CDT us Lm Wilhelm MD LABORATORY Final Resul t [facility] [address] [place] [address], * (ABNORMAL) CBC W/DIFF AUTOMATED (06/01/2024 9:02 AM CDT) [facility] WBC 4.88 4.4 - 11.0 x10'3/uL 06/01/2024 1:37 PM CDT [facility] RBC 4.76 4.50 - 5.10 x10'6/uL 06/01/2024 1:37 PM CDT [facility] HGB 13.7 12.3 - 15.3 G/DL 06/01/2024 1:37 PM CDT [facility] HCT 44.6 35.9 - 44.6 % 06/01/2024 1:37 PM CDT [facility] MCV 93.7 80.0 - 96.0 FL 06/01/2024 1:37 PM CDT [facility] MCH 28.8 25.3 - 30.9 PG 06/01/2024 1:37 PM CDT [facility] MCHC 30.7(L) 31.0 - 34.1 G/DL 06/01/2024 1:37 PM CDT [facility] RDW 17.7(H) 12.4 - 15.1 % 06/01/2024 1:37 PM CDT [facility] PLT 242 151 - 353 x10'3/uL 06/01/2024 1:37 PM T [facility] MPV 10.5 9.6 - 12.0 FL 06/01/2024 1:37 PM CDT [facility] RBC MORPHOLOGY NORMAL 06/01/2024 1:37 PM T [facility] PLT MORPH. NORMAL 06/01/2024 1:37 PM CDT [facility] WBC MORPHOLOGY NORMAL 06/01/2024 1:37 PM T [facility] LYMPHOCYTES % 32.0 15.8 - 45.0 % 06/01/2024 1:37 PM CDT [facility] NEUTROPHILS % 47.0 42.1 - 71.9 % 06/01/2024 1:37 PM CDT [facility] MONOCYTES % 14.5(H) 5.7 - 12.5 % 06/01/2024 1:37 PM CDT [facility] EOSINOPHILS 4.9 0.0 - 5.6 % 06/01/2024 1:37 PM CDT [facility] BASOPHILS 1.4(H) 0.0 - 1.3 % 06/01/2024 1:37 PM CDT [facility] ABS. NEUTROPHILS 2.29 1.40 - 6.00 x10'3/uL 06/01/2024 1:37 PM CDT [facility] IMMATURE GRANS % 0.2 0.0 - 0.5 % 06/01/2024 1:37 PM CDT [facility] ABS. LYMPHOCYTES 1.56 0.80 - 4.70 x10'3/uL 06/01/2024 1:37 PM CDT [facility] 06/01/2024 9:02 AM CDT us Lm Wilhelm MD LABORATORY Final Resul t [facility] [address] [place] [address], * TSH W/REFLEX (06/01/2024 9:02 AM CDT) TSH 1.969 0.358 - 3.74 uIU/ML 06/01/2024 2:43 PM CDT [facility] Comment: HIGH DOSES OF BIOTIN MAY INTERFERE WITH THIS TEST RESULT. CORRELATION TO CLINICAL HISTORY AND PRESENTATION RECOMMENDED. FREE T4 NOT INDICATED 06/01/2024 9:02 AM CDT us Lm Wilhelm MD LABORATORY Final Resul t [facility] [address] [place] [address], * LIPID PANEL (06/01/2024 9:02 AM CDT) [facility] Signature CHOLESTEROL 144 <200.0 MG/DL 06/01/2024 2:43 PM CDT [facility] TRIGLYCERIDES 72 <150 MG/DL 06/01/2024 2:43 PM CDT [facility] HDL 53 >40.0 MG/DL 06/01/2024 2:43 PM T [facility] LDL (CALCULATED) 77 <100 MG/DL 06/01/20 2:43 PM CDT [facility] NON HDL CHOLESTEROL 91 <130 MG/DL 06/01 2:43 PM T [facility] CHOL/HDL RATIO 2.7 0.0 - 4.5 06/01/2024 2:43 PM T [facility] VLDL CALCULATION 14 5 - 55 MG/DL 06/01/2024 2:43 PM T [facility] LIPID INTERPRETATION 06/01/2024 2:43 PM T [facility] Comment: NIH CONCENSUS REPORT RECOMMENDATIONS: [...] >=160 ?>=130 06/01/2024 9:02 AM CDT us Lm Wilhelm MD LABORATORY Final Resul t Performing Organization Address City/State/[facility] Co de Phone Number [facility] [address] [place] [address], * (ABNORMAL) COMPREHENSIVE METABOLIC PANEL (06/01/2024 9:02 AM CDT) GLUCOSE 97 70 - 99 MG/DL 06/01/2024 2:43 PM CDT [facility] BUN 21(H) 7 - 18 MG/DL 06/01/2024 2:43 PM CDT [facility] CREATININE S/P/B 0.69 0.55 - 1.02 MG/DL 06/01/2024 2:43 PM CDT [facility] SODIUM S/P/B 143 136 - 145 MMOL/L 06/01/2024 2:43 PM T [facility] POTASSIUM S/P/B 4.7 3.5 - 5.1 MMOL/L 06/01/2024 2:43 PM [facility] CHLORIDE S/P/B 107 100 - 108 MMOL/L 06/01/2024 2:43 PM [facility] CO2 28.9 21 - 32 MMOL/L 06/01/2024 2:43 PM [facility] CALCIUM S/P/B 8.9 8.5 - 10.1 MG/DL 06/01/2024 2:43 PM [facility] BILIRUBIN TOTAL S/P/B 0.6 0.2 - 1.2 MG/DL 06/01/2024 2:43 PM [facility] TOTAL PROTEIN S/P/B 6.5 6.4 - 8.2 G/DL 06/01/2024 2:43 PM [facility] ALBUMIN S/P/B 3.4 3.4 - 5.0 G/DL 06/01/2024 2:43 PM [facility] AST 27 15 - 37 U/L 06/01/2024 2:43 PM [facility] ALT 34 14 - 55 U/L 06/01/2024 2:43 PM [facility] ALKALINE PHOSPHATASE S/P/B 84 50 - 136 U/L 06/01/2024 2:43 PM [facility] ANION GAP 7.1 5 - 15 MMOL/L 06/01/2024 2:43 PM [facility] BUN CREATININE RATIO 30.4(H) 6 - 26 06/01/2024 2:43 PM [facility] A/G RATIO 1.1 1.0 - 2.0 RATIO 06/01/2024 2:43 PM CDT [facility] GFR ESTIMATE >90 >90 ML/MIN/1.7 3 M2 06/01/2024 2:43 PM CDT [facility] Comment: NOTE: eGFR is not calculated for patients <18 years of age. This is an estimated GFR calculation using the new CKD EPI creatinine equation without race and so does not require a correction factor for race. This estimated GFR should not be used for calculating drug doses. 06/01/2024 9:02 AM CDT Lm Wilhelm MD LABORATORY Final Resul t Performing Organization Address [facility]/ZIP Co de Phone Number [facility] [address] [place] [address], [place] [phone] * URINE BACTERIA CULTURE (05/29/2024 3:34 PM CDT) SPEC DESCRIPTION URINE CLEAN CATCH 05/29/2024 4:27 PM CDT [facility] SPECIAL REQUESTS NO SPECIAL REQUEST 05/29/2024 4:27 PM CDT [facility] CULTURE RESULT POLYMICROBIAL GROWTH CONSISTENT WITH NORMAL GENITAL BK. ?? SUSCEPTIBILITIES NOT ROUTINELY PERFORMED. 05/31/2024 9:27 AM CDT [facility] URINE SPECIMEN OBTAINED BY CLEAN CATCH PROCEDURE / Unknown 05/29/2024 3:34 PM CDT 05/29/2024 4:31 PM CDT Lm Wilhelm MD MICROBIOLOGY - GENERAL ORDE [facility] Final Result [facility] [address] [place] [address], [place] [phone] [facility] [address] [place] [address], documented in this encounter Visit Diagnoses Diagnosis Tiredness- Primary Other malaise and fatigue Encounter for routine history and physical examination of adult Low blood pressure reading Nonspecific low blood pressure reading Vitamin D deficiency Unspecified vitamin D deficiency UTI symptoms documented in this encounter Additional Health Concerns Assessment Noted Time PHQ-9 Depression Total Score: 1 04/03/20 23 3:30 PM CDT documented as of this encounter Care Teams Lighting Specialist Relationship Specialty [place] [address] [place] [address] PCP - General FAMILY PRACTICE 09/29/21 06/08/24 [place] [address] [facility]. [address] [address] RHEUMATOLOGY 09/27/20 documented as of this encounter
--- OUTSIDE RECORDS SUMMARY | 2024-08-29 09:51 | XMS_ITS | Encounter Summary ---
Author Organization [facility] Address [address] [place] [address]. [place] [address] [place] [address] Care Team Providers Care Manager Technical Training Name Role Phone Gladis Song MD Unavailable Thi Lugo MD Primary Care Provider [phone] Encounter Details Date Type Department Care Team (Latest Contact Info) Description 05/29/2024 4:27 PM CDT - 05/29/2024 11:59 PM [facility] Hospital Encounter [facility] [address] [place] [address] [place] [address] [facility] [address] [place] [address] Discharge Disposition: Home or Self Care (Routine [...] on file Legal Sex Female 10:22 PM STRING WINDING MACHINE OPERATOR Gender Identity Female 09/12/2021 9:51 AM STRING WINDING MACHINE OPERATOR Sexual Orientation Straight 09/12/2021 9: 51 AM STRING WINDING MACHINE OPERATOR documented as of this encounter Medications at [...] 8 HOURS NEEDED FOR STOMACH CRAMPING. 11/29/2023 fluconazole (DIFLUCAN) 150 MG tabletIndications: Acute vaginitis Take 1 tablet now then repeat in 72 hours. 2 tablet 05/22/2024 4 folic acid (FOLVITE) 1 MG tabletIndications: Rheumatoid arthritis without rheumatoid factor, multiple sites ([facility]) TAKE 1 TABLET BY MOUTH EVERY DAY [...] st Contact Info) Description 10/02/2024 11:40 AM STRING WINDING MACHINE OPERATOR Office Visit [facility] Multispecialty Care - [address] [place] [phone] Johnnie Lr MD [address] [facility] [address] [place] [address] 01/04/2025 9:50 AM CDT Office Visit [facility] Family Medicine - [place] [address] [place] [address] Emily Jordan MD [address] [place] [address] documented as of this encounter Procedures Procedure Name Priority Date/Time Associated Diagnosis Comments URINE BACTERIA CULTURE Routine 05/29/2024 3:34 PM CDT UTI symptoms documented in this encounter Results * URINE BACTERIA CULTURE (05/29/2024 3:34 PM CDT) SPEC DESCRIPTION URINE CLEAN CATCH 05/29/2024 4:27 PM CDT [facility] SPECIAL REQUESTS NO SPECIAL REQUEST 05/29/2024 4:27 PM CDT [facility] CULTURE RESULT POLYMICROBIAL GROWTH CONSISTENT WITH NORMAL GENITAL BK. ?? SUSCEPTIBILITIES NOT ROUTINELY PERFORMED. 05/31/2024 9:27 AM CDT [facility] URINE SPECIMEN OBTAINED BY CLEAN CATCH PROCEDURE / Unknown 05/29/2024 3:34 PM CDT 05/29/2024 4:31 PM CDT Shun Mora MD MICROBIOLOGY - GENERAL ORDRafa BROWN Final Result Performing Organization Address City/State/[facility] Co de Phone Number [facility] [address] [place] [address], [place] [phone] [facility] [address] [place] [address], [place] [phone] documented in this encounter Visit Diagnoses Diagnosis UTI symptoms documented in this encounter Additional Health Concerns Assessment Noted Time PHQ-9 Depression Total Score: 1 04/03/20 23 3:30 PM CDT documented as of this encounter Care Teams Manager Technical Training Relationship Specialty [place] [address] [address] [place] [address] PCP - General FAMILY PRACTICE 09/29/21 06/08/24 [place] [address] [facility] [place] [address] RHEUMATOLOGY 09/27/20 documented as of this encounter
--- OUTSIDE RECORDS SUMMARY | 2024-08-29 09:51 | XMS_ITS | Encounter Summary ---
Author Organization [facility] Address [facility] [facility] [place] [address] [place] [address] Care Team Providers Care Group Sales Manager Name Role Phone Gladis Song MD Unavailable Thi Lugo MD Primary Care Provider [phone] Encounter Details Date Type Department Care Team (Latest Contact Info) Description 05/29/2024 Travel Social History Tobacco Use Types Packs/Day [...] on file Legal Sex Female 10:22 PM FAMILY INDEPENDENCE CASE MANAGER Gender Identity Female 09/12/2021 9:51 AM FAMILY INDEPENDENCE CASE MANAGER Sexual Orientation Straight 09/12/2021 9: 51 AM FAMILY INDEPENDENCE CASE MANAGER documented as of this encounter Plan of Treatment Upcoming Encounters Date Type Department Care Team (Late st Contact Info) Description 10/02/2024 11:40 AM FAMILY INDEPENDENCE CASE MANAGER Office Visit [facility] Multispecialty Care - [address], [address] [place] [address] Johnnie Lr MD [address] [facility] [address] [place] [address] 01/04/2025 9:50 AM CDT Office Visit [facility] Family Medicine - [place] [address] [place] [address] Emily Jordan MD [address] [place] [address] documented as of this encounter Visit Diagnoses Not on filedocumented in this encounter Additional Health Concerns Assessment Noted Time PHQ-9 Depression Total Score: 1 04/03/20 23 3:30 PM CDT documented as of this encounter Care Teams Group Sales Manager Relationship Specialty [place] [address] [facility] [place] [address] PCP - General FAMILY PRACTICE 09/29/21 06/08/24 [place] [address] [facility] [place] [address] RHEUMATOLOGY 09/27/20 documented as of this encounter
--- OUTSIDE RECORDS SUMMARY | 2024-08-29 09:51 | XMS_ITS | Encounter Summary ---
Author Organization [facility] Address [address] [place] [address]. [place], [place] [address] [place] [address] Care Team Providers Care Director Product Name Role Phone Gladis Song MD Unavailable Thi Lugo MD Primary Care Provider [phone] Reason for Referral * Consultation (Routine) - Closed Specialty Diagnoses / Procedures Referred By Contac t Referred To Contact HEART & VASCULAR CARE Diagnoses Paroxysmal atrial fibrillation ([facility]) Coronary artery disease involving alatna heart without angina pectoris, unspecified vessel or lesion type Chronic diastolic heart failure ([facility]) Procedures OFFICE/OUTPATIENT NEW LOW MDM 30-44 MINUTES OFFICE/OUTPT VISIT,NEW,LEVL IV OFFICE/OUTPT VISIT,NEW,LEVL V OFFICE/OUTPT VISIT,EST,LEVL III OFFICE/OUTPT VISIT,EST,LEVL IV OFFICE/OUTPT VISIT,[place] [address] [facility]. [address] [place] [address] Phone: tel: fax: [facility] [address] [place] [address] Phone: tel: fax: Referral ID Status Reason Start Date Expiration Date V isits Requested Visits Authorized [id number] Closed Specialty Services 01/16/2024 01/15/2025 99 99 Scheduling Instructions Back date order for 01/10/24 Encounter Details Date Type Department Care Team (Late st Contact Info) Description 01/16/2024 Orders Only [facility] Family & Internal Medicine [facility] [address] [place] [address] [place] [address] [facility] [address] [place] [address] Social History Tobacco Use Types [...] on file Legal Sex Female 10:22 PM BEAN ROASTER Gender Identity Female 09/12/2021 9:51 AM BEAN ROASTER Sexual Orientation Straight 09/12/2021 9: 51 AM BEAN ROASTER documented as of this encounter Plan of Treatment Upcoming Encounters Date Type Department Care Team (Late st Contact Info) Description 10/02/2024 11:40 AM BEAN ROASTER Office Visit [facility] Multispecialty Care - [facility] 3 [facility], [address] [place] [address] Johnnie Lr MD 3 [facility] [address] [place] [address] 01/04/2025 9:50 AM CDT Office Visit [facility] Family Medicine - [place] [address] [place] [address] Emily Jordan MD [address] [place] [address] Scheduled Referrals Name Type Priority Associated Diagnoses Orde r Schedule Ambulatory referral to Cardiology, Adult (OTHER) Referral Routine Paroxysmal atrial fibrillation ([facility]) Coronary artery disease involving alatna heart without angina pectoris, unspecified vessel or lesion type Chronic diastolic heart failure ([facility]) Ordered: 01/16/2024 documented as of this encounter Visit Diagnoses Diagnosis Paroxysmal atrial fibrillation ([facility] Primary Atrial fibrillation Coronary artery disease involving alatna heart without angina pectoris, unspecified vessel or lesion type Chronic diastolic heart failure ([facility]) Chronic diastolic heart failure documented in this encounter Additional Health Concerns Assessment Noted Time PHQ-9 Depression Total Score: 1 04/03/20 23 3:30 PM CDT documented as of this encounter Care Teams Director Product Relationship Specialty [place] [address] [facility] [address] [place] [address] PCP - General FAMILY PRACTICE 09/29/21 06/08/24 [place] [address] [facility]. [address] [address] RHEUMATOLOGY 09/27/20 documented as of this encounter
--- OUTSIDE RECORDS SUMMARY | 2024-08-29 09:52 | XMS_ITS | Encounter Summary ---
Author Organization [facility] Address [facility]. [place], [place] [address] [place] [address] Care Team Providers Care Quality Improvement Manager Name Role Phone Gladis Song MD Unavailable Thi Lugo MD Primary Care Provider Reason for Visit * Reason Comments Lab (SCAN) Encounter Details Date Type Department Care Team (Latest Contact Info) Description 10/30/2023 Scan HEALTH INFO SRVCS Scanned, Doc [facility] Lab (SCAN) Social History Tobacco [...] on file Legal Sex Female 10:22 PM WASTEWATER TREATMENT PLANT INSTRUCTOR Gender Identity Female 09/12/2021 9:51 AM WASTEWATER TREATMENT PLANT INSTRUCTOR Sexual Orientation Straight 09/12/2021 9: 51 AM WASTEWATER TREATMENT PLANT INSTRUCTOR documented as of this encounter Plan of Treatment Upcoming Encounters Date Type Department Care Team (Late st Contact Info) Description 10/02/2024 11:40 AM WASTEWATER TREATMENT PLANT INSTRUCTOR Office Visit [facility] Medical [facility] Multispecialty Care - [address], [address] [place] [address] Johnnie Lr MD 3 [facility] [address] [place] [address] 01/04/2025 9:50 AM CDT Office Visit [facility] Medical Group Family Medicine - [place] [address] [address] Emily Jordan MD [address] [address] documented as of this encounter Procedures Procedure Name Priority Date/Time Associated Diagnosis Comments OUTSIDE LAB (SCAN ORDER) 10/30/2023 documented in this encounter Results * OUTSIDE LAB (SCAN ORDER) (10/30/2023) 10/30/2023 us Doc [facility] Group Scanned SCANNING Final Resu lt documented in this encounter Visit Diagnoses Not on filedocumented in this encounter Additional Health Concerns Assessment Noted Time PHQ-9 Depression Total Score: 1 04/03/20 23 3:30 PM CDT documented as of this encounter Care Teams Quality Improvement Manager Relationship Specialty [place] [address] [facility]. [address] [place] [address] PCP - General FAMILY PRACTICE 09/29/21 06/08/24 [place] [address] [facility]. [address] [place] [address] RHEUMATOLOGY 09/27/20 documented as of this encounter
--- OUTSIDE RECORDS SUMMARY | 2024-08-29 09:52 | XMS_ITS | Encounter Summary ---
Author Organization [facility] Address [address] [place] [address]. [place], [place] [address] [place] [address] Care Team Providers Care Medical Massage Therapist Name Role Phone Gladis Song MD Unavailable Thi Lugo MD Primary Care Provider [phone] Reason for Visit * Reason Comments Follow Up Pt seen by rheumatol ogist, recommended to f/u for glucose in urine. Encounter Details Date Type Department Care Team (Late st Contact Info) Description 11/11/2023 4:00 PM CDT Office Visit [facility] Medical Group Family & Internal Medicine [address] [address] Thi Lugo MD [address] [place] [address]. [address] [place] [address] Follow Up (Pt seen by director of graduate admissions, recommended to f/u for glucose in urine. ) Social History Tobacco Use Types Packs/Day [...] on file Legal Sex Female 10:22 PM MARBLE CHIP TERRAZZO WORKER Gender Identity Female 09/12/2021 9:51 AM MARBLE CHIP TERRAZZO WORKER Sexual Orientation Straight 09/12/2021 9: 51 AM MARBLE CHIP TERRAZZO WORKER documented as of this encounter Last Filed Vital Signs Vital Sign Reading Time Taken Comments Blood Pressure 128/76 11/11/2023 4:07 PM CDT Pulse 74 11/11/2023 4:07 PM CDT Temperature 36.9 ??C (98.4 ??F) 11/11/2023 4:07 PM CD T Respiratory Rate 16 11/11/2023 4:07 PM CDT Oxygen Saturation 96% 11/11/2023 4:07 PM CDT Inhaled Oxygen Concentration - - Weight 64.9 kg (143 lb) 11/11/2023 4:07 PM CDT Height 149.9 cm (4' 11 ) 11/11/2023 4:07 PM CDT Body Mass Index 28.88 11/11/2023 4:07 PM CDT documented in this encounter Progress Notes * Thi Lugo MD - 11/11/2023 4:00 PM CDT Reason for Visit: Follow Up (Pt seen by director of graduate admissions, recommended to f/u for glucose in urine. ) History of Present Illness: HPI Miss Chio Orantes is a pleasant 73-year-old female with complex past and current medical history butnot limited to asthma, Prediabetes, CVA and paroxysmal was on Eliquis: now aspirin only, CAD, heartfailure preserved ejection fraction, SLE- on methotrexate for SLE, prediabetes, peripheral neuropathy, chronic GERD, restless legs and hypertension was seen in office today for multiple concerns. Patient states she had labs and urine test done with director of graduate admissions. They advised her to follow-up with PCP for blood glucose and urine. Patient has a known history of prediabetes. She is also on Jardiance. Last A1c was 6.1 in August. She has right sided ear pain. Started 2 weeks ago. Denies any fever. Some hearing loss She has had sick contacts- great grandkids. Also complains of nosebleeds. She has been using using a humidifier. Per last office note: Specialists 1. Cardiology at [place]. 2. Rheum Dr. Song 3. Neurology for memory loss and Hx of stroke- Ly, Julianna HALL MD and Jluis Gautam M.D., Ph.D 4. Pulmonology: asthma 5 eye doctor. 6. PRN dermatology No other concerns for today ROS: Review of Systemsnegative except HPI Medications: Current Outpatient Medications: albuterol sulfate [...] 2.5 MG tablet, , Disp: , Rfl: montelukast (SINGULAIR) 10 MG tablet, take 1 tablet by mouth every day at night, Disp: 90 tablet, Rfl: 3 nitroglycerin 0.4 MG SL tablet, May repeat dose every 5 minutes for up to 3 doses total., Disp: , Rfl: pantoprazole EC (PROTONIX) 40 MG tablet, Take 1 tablet (40 mg total) by mouth daily., Disp: 90 tablet, Rfl: 0 PARoxetine (PAXIL) 20 MG tablet, Take 2 tablets (40 mg total) by mouth daily., Disp: 180 tablet, Rfl: 1 potassium chloride CR 20 MEQ tablet, TAKE 2 TABLETS EVERY MORNING AND 2 TABLETS EVERY EVENING, Disp: , Rfl: Respiratory Therapy Supplies (ONE FLOW SPIROMETER) Kit, 1. Sit up straight and tall, and hold the spirometer in your hands. 2. Take a deep breath in and let it out. 3. Place the mouthpiece in your mouth. Make sure your lips completely cover the mouthpiece. 4. Breathe in slowly through the mouthpiece (like sucking through a straw). Keep the range indicator (little marker on the side chamber) in the target zone. Breathe in until the piston gets to your maritza. 5. Hold your breath in for 3 seconds and then let it out. 6. Repeat as prescribed, typically about 10 breaths every hour., Disp: 1 kit, Rfl: 0 triamcinolone (KENALOG) 0.1 % cream, Apply topically 2 (two) times daily., Disp: 15 g, Rfl: 1 vitamin C 1000 MG tablet, Take 1 tablet (1,000 mg total) by mouth daily., Disp: , Rfl: B-D 3CC LUER-KAILASH SYR 22GX1 22G X 1 3 ML Misc, , Disp: , Rfl: metoprolol succinate ER (TOPROL-XL) 50 MG 24 hr tablet, , Disp: , Rfl: Review of patient's allergies indicates: Allergen Reactions Latex Rash Sulfa Antibiotics Swelling Levofloxacin Headache and Nausea Only Nitrofurantoin Headache Past Medical History: Diagnosis Date Anxiety Arthritis Asthma (HHS/HCC) Hypertension Lupus (CMS/HCC HHS/HCC) Sleep apnea Stroke (CMS/HCC HHS/HCC) Past Surgical History: Procedure Laterality Date APPENDECTOMY SECTION COLONOSCOPY N/A 09/18/2023 COLONOSCOPY - negative performed by Randal Seth MD at [facility] TRIGGER FINGER RELEASE HYSTERECTOMY SCREENING COLONOSCOPY 2019 TONSILLECTOMY Social History Socioeconomic History Marital status: Tobacco Use Smoking status: Never Passive exposure: Never Smokeless tobacco: Never Vaping Use Vaping Use: Never used Substance and Sexual Activity Alcohol use: Yes [...] Family Status Relation Name Status Mother Father Physical Exam Vitals reviewed. HENT: Head: Normocephalic and atraumatic. Right Ear: Tympanic membrane normal. Left Ear: Tympanic membrane normal. Comments: Right ear-noted area of dry skin and scaling in the stephanie , near the intertragal notch Nose: No rhinorrhea or congestion. Comments: Left nostril-near complete occlusion given hypertrophy of nasal polyp on the intranasal septum. No acute bleeding or dried blood noted Eyes: Conjunctiva/sclera: Conjunctivae normal. Comments: Wears glasses Cardiovascular: Rate and Rhythm: Normal rate and [...] Behavior normal. Judgment: Judgment normal. Filed Vitals: 11/11/23 1607 BP: 128/76 Pulse: 74 Resp: 16 Temp: 98.4 ??F (36.9 ??C) TempSrc: Temporal SpO2: 96% Weight: 64.9 kg (143 lb) Height: 1.499 m (4' 11 ) Diagnoses/Impression: 1. Prediabetes 2. Glucosuria 3. Allergic dermatitis triamcinolone (KENALOG) 0.1 % cream 4. Eczema of right external ear 5. Nasal polyposis Recommendations and Plan: Reviewed urine test from 10/29. Negative for ketones. 3 + Glucosurea. Known chronic prediabetes. Last A1c was 6.1 Glucosuria likely secondary to Jardiance use.Continue Jardiance as taking. Patient was advised to avoid sugars. Advise low-carb diet. Advised to start nasal saline BID , vaseline QHS. Humidifier Will refer to ENT if chronic rhinorrhea persists No ear infection. Noted eczema patch on the right pinna. Advised Kenalog for 10 days. Follow-up as needed. She voiced understanding and agrees with the plan. All questions answered. Orders Placed This Encounter brimonidine (ALPHAGAN) 0.2 % ophthalmic solution triamcinolone (KENALOG) 0.1 % cream Reviewed and updated this visit by provider: Thi Lugo MD Referring Provider: No ref. provider found PCP: Thi Lugo MD documented in this encounter Plan of Treatment Upcoming Encounters Date Type Department Care Team (Late st Contact Info) Description 10/02/2024 11:40 AM MARBLE CHIP TERRAZZO WORKER Office Visit [facility] Multispecialty Care - [facility] [address] [facility] [place] [address] Johnnie Lr MD 3 [facility] [address] [place] [address] 01/04/2025 9:50 AM CDT Office Visit [facility] Family Medicine - [place] [address] [facility] [address] [place] [address] Emily Jordan MD [address] [place] [address] documented as of this encounter Visit Diagnoses Diagnosis Prediabetes- Primary Other abnormal glucose Glucosuria Glycosuria Allergic dermatitis Contact dermatitis and other eczema, due to unspecified cause Eczema of right external ear Nasal polyposis Unspecified nasal polyp documented in this encounter Additional Health Concerns Assessment Noted Time PHQ-9 Depression Total Score: 1 04/03/20 23 3:30 PM CDT documented as of this encounter Care Teams Medical Massage Therapist Relationship Specialty [place] [address] [facility] [place] [address] PCP - General FAMILY PRACTICE 09/29/21 06/08/24 [place] [address] [facility]. [facility] [address] [place] [address] RHEUMATOLOGY 09/27/20 documented as of this encounter
--- OUTSIDE RECORDS SUMMARY | 2024-08-29 09:52 | XMS_ITS | Encounter Summary ---
Author Organization [facility] Address [facility]6 [place] [address] [place] [address] Care Team Providers Care Religious Education Director Name Role Phone Gladis Song MD Unavailable Thi Lugo MD Primary Care Provider [phone] Encounter Details Date Type Department Care Team (Latest Contact Info) Description 11/11/2023 Travel Social History Tobacco Use Types Packs/Day [...] on file Legal Sex Female 10:22 PM BELL TIER Gender Identity Female 09/12/2021 9:51 AM BELL TIER Sexual Orientation Straight 09/12/2021 9: 51 AM BELL TIER documented as of this encounter Plan of Treatment Upcoming Encounters Date Type Department Care Team (Late st Contact Info) Description 10/02/2024 11:40 AM BELL TIER Office Visit [facility] Medical Group Multispecialty Care - [address], [address] [place] [address] Johnnie Lr MD 3 [facility] [address] [place] [address] 01/04/2025 9:50 AM CDT Office Visit [facility] Medical [facility] Family Medicine - [place] [address] [place] [address] Emily Jordan MD [address] [place] [address] documented as of this encounter Visit Diagnoses Not on filedocumented in this encounter Additional Health Concerns Assessment Noted Time PHQ-9 Depression Total Score: 1 04/03/20 23 3:30 PM CDT documented as of this encounter Care Teams Religious Education Director Relationship Specialty [place] [address] [facility] [place] [address] PCP - General FAMILY PRACTICE 09/29/21 06/08/24 [place] [address] [facility]. [address] [place] [address] RHEUMATOLOGY 09/27/20 documented as of this encounter
--- OUTSIDE RECORDS SUMMARY | 2024-08-29 09:53 | XMS_ITS | Encounter Summary ---
Author Organization [facility] Address [facility] [place] [address] [place] [address] Care Team Providers Care Gas Usage Meter Clerk Name Role Phone Gladis Song MD Unavailable Thi Lugo MD Primary Care Provider [phone] Encounter Details Date Type Department Care Team (Latest Contact Info) Description 09/18/2023 Travel Social History Tobacco Use Types Packs/Day [...] on file Legal Sex Female 10:22 PM DOCKET CLERK Gender Identity Female 09/12/2021 9:51 AM DOCKET CLERK Sexual Orientation Straight 09/12/2021 9: 51 AM DOCKET CLERK documented as of this encounter Plan of Treatment Upcoming Encounters Date Type Department Care Team (Late st Contact Info) Description 10/02/2024 11:40 AM DOCKET CLERK Office Visit [facility] Medical Group Multispecialty Care - [address], [address] [place] [address] Johnnie Lr MD 3 [facility] [address] [place] [address] 01/04/2025 9:50 AM CDT Office Visit [facility] Medical Group Family Medicine - [place] [address] [place] [address] Emily Jordan MD [address] [place] [address] documented as of this encounter Visit Diagnoses Not on filedocumented in this encounter Additional Health Concerns Assessment Noted Time PHQ-9 Depression Total Score: 1 04/03/20 23 3:30 PM CDT documented as of this encounter Care Teams Gas Usage Meter Clerk Relationship Specialty [place] [address] [facility] [place] [address] PCP - General FAMILY PRACTICE 09/29/21 06/08/24 [place] [address] [facility]. [address] [place] [address] RHEUMATOLOGY 09/27/20 documented as of this encounter
--- OUTSIDE RECORDS SUMMARY | 2024-08-29 09:53 | XMS_ITS | Encounter Summary ---
Author Organization [facility] Address [facility]6 [facility]. [place], [place] [address] [place] [address] Care Team Providers Care Headwaitress Name Role Phone Gladis Song MD Unavailable Thi Lugo MD Primary Care Provider [phone] Reason for Visit * Reason Comments Lab (SCAN) Encounter Details Date Type Department Care Team (Latest Contact Info) Description 08/02/2023 Scan HEALTH INFO SRVCS Scanned, Doc Med Group Lab (SCAN) Social History Tobacco Use Types Packs/Day Years Used Date Smoking Tobacco: Never Passive Smoke Exposure: Never Smokeless Tobacco: Never Alcohol Use Standard Drinks/Week Comments Yes 0 (1 standard drink = 0.6 oz pur e alcohol) up 2 glasses of wine/month PHQ-2 Answer Date Recorded Patient Health Questionnaire-2 Score 0 04/03/2023 Comments No Sex and Gender Information Value Date Recorded Sex Assigned at Not on file Legal Sex Female 10:22 PM ANTHROPOLOGICAL LINGUIST Gender Identity Female 09/12/2021 9:51 AM ANTHROPOLOGICAL LINGUIST Sexual Orientation Straight 09/12/2021 9: 51 AM ANTHROPOLOGICAL LINGUIST documented as of this encounter Plan of Treatment Upcoming Encounters Date Type Department Care Team (Late st Contact Info) Description 10/02/2024 11:40 AM ANTHROPOLOGICAL LINGUIST Office Visit [facility] Medical [facility] Multispecialty Care - [address] [place] [address] Johnnie Lr MD 3 [facility] [address] [place] [address] 01/04/2025 9:50 AM CDT Office Visit [facility] Medical Group Family Medicine - [place] [address] [place] [address] Emily Jordan MD [address] [place] [address] documented as of this encounter Procedures Procedure Name Priority Date/Time Associated Diagnosis Comments OUTSIDE LAB (SCAN ORDER) 08/02/2023 OUTSIDE LAB (SCAN ORDER) 08/02/2023 OUTSIDE LAB (SCAN ORDER) 08/02/2023 OUTSIDE LAB (SCAN ORDER) 08/02/2023 documented in this encounter Results * OUTSIDE LAB (SCAN) (08/02/2023) 08/02/2023 [facility] Scanned SCANNING Final Resu lt * OUTSIDE LAB (SCAN) (08/02/2023) 08/02/2023 [facility] Scanned SCANNING Final Resu lt * OUTSIDE LAB (SCAN) (08/02/2023) 08/02/2023 [facility] Scanned SCANNING Final Resu lt * OUTSIDE LAB (SCAN) (08/02/2023) 08/02/2023 [facility] Scanned SCANNING Final Resu lt documented in this encounter Visit Diagnoses Not on filedocumented in this encounter Additional Health Concerns Assessment Noted Time PHQ-9 Depression Total Score: 1 04/03/20 23 3:30 PM CDT documented as of this encounter Care Teams Headwaitress Relationship Specialty [place] [address] [address] [place] [address] PCP - General FAMILY PRACTICE 09/29/21 06/08/24 [place] [address] [facility]. [address] [address] RHEUMATOLOGY 09/27/20 documented as of this encounter
--- OUTSIDE RECORDS SUMMARY | 2024-08-29 09:53 | XMS_ITS | Encounter Summary ---
Author Organization [facility] Address Count includes the [facility]. [place], [place] [address] [place] [address] Care Team Providers Care Berry Picker Machine Operator Name Role Phone Gladis Song MD Unavailable Thi Lugo MD Primary Care Provider [phone] Reason for Visit * Reason Comments Lab (SCAN) Encounter Details Date Type Department Care Team (Latest Contact Info) Description 10/29/2023 Scan HEALTH INFO SRVCS Scanned, Doc [facility] Group Lab (SCAN) Social History Tobacco Use [...] on file Legal Sex Female 10:22 PM HARDWARE DEVELOPER Gender Identity Female 09/12/2021 9:51 AM HARDWARE DEVELOPER Sexual Orientation Straight 09/12/2021 9: 51 AM HARDWARE DEVELOPER documented as of this encounter Plan of Treatment Upcoming Encounters Date Type Department Care Team (Late st Contact Info) Description 10/02/2024 11:40 AM HARDWARE DEVELOPER Office Visit [facility] Multispecialty Care - [address], [address] [place] [address] Johnnie Lr MD 3 [facility] [address] [place] [address] 01/04/2025 9:50 AM CDT Office Visit [facility] Medical Group Family Medicine - [place] [address] [place] [address] Emily Jordan MD [address] [place] [address] documented as of this encounter Procedures Procedure Name Priority Date/Time Associated Diagnosis Comments OUTSIDE LAB (SCAN ORDER) 10/29/2023 OUTSIDE LAB (SCAN ORDER) 10/29/2023 OUTSIDE LAB (SCAN ORDER) 10/29/2023 OUTSIDE LAB (SCAN ORDER) 10/29/2023 OUTSIDE LAB (SCAN ORDER) 10/29/2023 documented in this encounter Results * OUTSIDE LAB (SCAN ORDER) (10/29/2023) 10/29/2023 [facility] Scanned SCANNING Final Resu lt * OUTSIDE LAB (SCAN ORDER) (10/29/2023) 10/29/2023 [facility] Scanned SCANNING Final Resu lt * OUTSIDE LAB (SCAN ORDER) (10/29/2023) 10/29/2023 [facility] Scanned SCANNING Final Resu lt * OUTSIDE LAB (SCAN ORDER) (10/29/2023) 10/29/2023 [facility] Scanned SCANNING Final Resu lt * OUTSIDE LAB (SCAN ORDER) (10/29/2023) 10/29/2023 us Doc Med Group Scanned SCANNING Final Resu lt documented in this encounter Visit Diagnoses Not on filedocumented in this encounter Additional Health Concerns Assessment Noted Time PHQ-9 Depression Total Score: 1 04/03/20 23 3:30 PM CDT documented as of this encounter Care Teams Berry Picker Machine Operator Relationship Specialty [place] [address] [facility] [place] [address] PCP - General FAMILY PRACTICE 09/29/21 06/08/24 [place] [address] [facility]. [facility] [address] [place] [address] RHEUMATOLOGY 09/27/20 documented as of this encounter
--- OUTSIDE RECORDS SUMMARY | 2024-08-29 09:53 | XMS_ITS | Encounter Summary ---
Author Organization [facility] Address [address] [place] [address]. [place] [address] [place] [address] Care Team Providers Care Assembling Inspector Name Role Phone Gladis Song MD Unavailable Thi Lugo MD Primary Care Provider [phone] Encounter Details Date Type Department Care Team (Late Contact Info) Description 07/23/2023 Orders Only [facility] Medical [facility] General Surgery [address], [address] [place] [address] Randal Seth MD [address] [address] Social History Tobacco Use Types Packs/Day Years [...] on file Legal Sex Female 10:22 PM TOBACCO WETTER Gender Identity Female 09/12/2021 9:51 AM TOBACCO WETTER Sexual Orientation Straight 09/12/2021 9: 51 AM TOBACCO WETTER documented as of this encounter Plan of Treatment Upcoming Encounters Date Type Department Care Team (Late st Contact Info) Description 10/02/2024 11:40 AM TOBACCO WETTER Office Visit [facility] Medical [facility] Multispecialty Care - [facility] [address] [facility] [place] [address] Johnnie Lr MD 3 [facility] [address] [place] [address] 01/04/2025 9:50 AM CDT Office Visit [facility] Family Medicine - [place] [address] [place] [address] Emily Jordan MD [address] [place] [address] documented as of this encounter Visit Diagnoses Diagnosis Encounter for screening for malignant neoplasm of colon- Primary Special screening for malignant neoplasms, colon documented in this encounter Additional Health Concerns Assessment Noted Time PHQ-9 Depression Total Score: 1 04/03/20 23 3:30 PM CDT documented as of this encounter Care Teams Assembling Inspector Relationship Specialty [place] [address] [facility] [place] [address] PCP - General FAMILY PRACTICE 09/29/21 06/08/24 [place] [address] [facility]. [address] [place] [address] RHEUMATOLOGY 09/27/20 documented as of this encounter
--- OUTSIDE RECORDS SUMMARY | 2024-08-29 09:53 | XMS_ITS | Encounter Summary ---
Author Organization [facility] Address [address] [place] [address]. [place], [place] [address] [place] [address] Care Team Providers Care Supervisor Wheel Shop Name Role Phone Gladis Song MD Unavailable Thi Lugo MD Primary Care Provider [phone] Reason for Visit * Reason Onset Date Comments Schedule Test 09/09/2023 Pt contacted to come get EKG prior to procedure. V/U Ekg 09/09/2023 Encounter Details Date Type Department Care Team (Late st Contact Info) Description 09/09/2023 Pre-Procedure Call [facility] [address] [place] [address] Rosa York RN Schedule Test (Pt contacted to come get EKG prior to procedure. V/U); Ekg Social History Tobacco Use Types Packs/Day Years [...] on file Legal Sex Female 10:22 PM PHYSICIAN SCRIBE Gender Identity Female 09/12/2021 9:51 AM PHYSICIAN SCRIBE Sexual Orientation Straight 09/12/2021 9: 51 AM PHYSICIAN SCRIBE documented as of this encounter Plan of Treatment Upcoming Encounters Date Type Department Care Team (Late st Contact Info) Description 10/02/2024 11:40 AM PHYSICIAN SCRIBE Office Visit [facility] Multispecialty Care - [facility] 3 [facility] [address] [place] [address] Johnnie Lr MD 3 [facility] [address] [place] [address] 01/04/2025 9:50 AM CDT Office Visit [facility] Family Medicine - [place] [address] [place] [address] Emily Jordan MD [address] [place], [place] [address] documented as of this encounter Visit Diagnoses Not on filedocumented in this encounter Additional Health Concerns Assessment Noted Time PHQ-9 Depression Total Score: 1 04/03/20 23 3:30 PM CDT documented as of this encounter Care Teams Supervisor Wheel Shop Relationship Specialty [place] [address] [facility]. [address] [place] [address] PCP - General FAMILY PRACTICE 09/29/21 06/08/24 [place] [address] [facility]. [address] [place] [address] RHEUMATOLOGY 09/27/20 documented as of this encounter
--- OUTSIDE RECORDS SUMMARY | 2024-08-29 09:53 | XMS_ITS | Encounter Summary ---
Author Organization [facility] Address [facility] [address] [place] [address] Care Team Providers Care Client Experience Specialist Name Role Phone Gladis Song MD Unavailable Thi Lugo MD Primary Care Provider [phone] Encounter Details Date Type Department Care Team (Latest Contact Info) Description 08/23/2023 Travel Social History Tobacco Use Types Packs/Day [...] on file Legal Sex Female 10:22 PM HANDS AND DIAL INSPECTOR Gender Identity Female 09/12/2021 9:51 AM HANDS AND DIAL INSPECTOR Sexual Orientation Straight 09/12/2021 9: 51 AM HANDS AND DIAL INSPECTOR documented as of this encounter Plan of Treatment Upcoming Encounters Date Type Department Care Team (Late st Contact Info) Description 10/02/2024 11:40 AM HANDS AND DIAL INSPECTOR Office Visit [facility] Medical Group Multispecialty Care - [address], [address] [place] [address] Johnnie Lr MD 3 [facility] [address] [place] [address] 01/04/2025 9:50 AM CDT Office Visit [facility] Medical Group Family Medicine - [place] [address] [place] [address] Emily Jordan MD [address] [place] [address] documented as of this encounter Visit Diagnoses Not on filedocumented in this encounter Additional Health Concerns Assessment Noted Time PHQ-9 Depression Total Score: 1 04/03/20 23 3:30 PM CDT documented as of this encounter Care Teams Client Experience Specialist Relationship Specialty [place] [address] [facility]. [address] [place] [address] PCP - General FAMILY PRACTICE 09/29/21 06/08/24 [place] [address] [facility]. [address] [place] [address] RHEUMATOLOGY 09/27/20 documented as of this encounter
--- OUTSIDE RECORDS SUMMARY | 2024-08-29 09:53 | XMS_ITS | Encounter Summary ---
Author Organization [facility] Address [facility]6 [facility] [place] [address] [place] [address] Care Team Providers Care Services Mgr Name Role Phone Gladis Song MD Unavailable Thi Lugo MD Primary Care Provider [phone] Encounter Details Date Type Department Care Team (Latest Contact Info) Description 09/10/2023 Travel Social History Tobacco Use Types Packs/Day [...] on file Legal Sex Female 10:22 PM SURVEY FIELD TECHNICIAN Gender Identity Female 09/12/2021 9:51 AM SURVEY FIELD TECHNICIAN Sexual Orientation Straight 09/12/2021 9: 51 AM SURVEY FIELD TECHNICIAN documented as of this encounter Plan of Treatment Upcoming Encounters Date Type Department Care Team (Late st Contact Info) Description 10/02/2024 11:40 AM SURVEY FIELD TECHNICIAN Office Visit [facility] Medical Group Multispecialty Care - [address], [address] [place] [address] Johnnie Lr MD 3 [facility] [address] [place] [address] 01/04/2025 9:50 AM CDT Office Visit [facility] Medical Group Family Medicine - [place] [address] [place] [address] Emily Jordan MD [address] [place] [address] documented as of this encounter Visit Diagnoses Not on filedocumented in this encounter Additional Health Concerns Assessment Noted Time PHQ-9 Depression Total Score: 1 04/03/20 23 3:30 PM CDT documented as of this encounter Care Teams Services Mgr Relationship Specialty [place] [address] [facility]. [address] [place] [address] PCP - General FAMILY PRACTICE 09/29/21 06/08/24 [place] [address] [facility]. [address] [place] [address] RHEUMATOLOGY 09/27/20 documented as of this encounter
--- OUTSIDE RECORDS SUMMARY | 2024-08-29 09:53 | XMS_ITS | Encounter Summary ---
Author Organization [facility] Address [address] [place] [address]. [place], [place] [address] [place] [address] Care Team Providers Care Refractive Surgeon Name Role Phone Gladis Song MD Unavailable Thi Lugo MD Primary Care Provider [phone] Reason for Visit * Reason Comments Prediabetes Hypertension Encounter Details Date Type Department Care Team (Late st Contact Info) Description 08/23/2023 10:40 AM MANAGER COMMUNICATION Office Visit [facility] Medical Group Family & Internal Medicine [address] [address] Thi Lugo MD [address] [place] [address] [place] [address] Prediabetes; Hypertension Social History Tobacco Use Types Packs/Day Years [...] on file Legal Sex Female 10:22 PM MANAGER COMMUNICATION Gender Identity Female 09/12/2021 9:51 AM MANAGER COMMUNICATION Sexual Orientation Straight 09/12/2021 9: 51 AM MANAGER COMMUNICATION documented as of this encounter Last Filed Vital Signs Vital Sign Reading Time Taken Comments Blood Pressure 102/66 08/23/2023 10:46 AM MANAGER COMMUNICATION Pulse 84 08/23/2023 10:46 AM MANAGER COMMUNICATION Temperature 37.1 ??C (98.8 ??F) 08/23/2023 10:[address] Respiratory Rate 18 08/23/2023 10:46 AM MANAGER COMMUNICATION Oxygen Saturation 96% 08/23/2023 10:46 AM MANAGER COMMUNICATION Inhaled Oxygen Concentration - - Weight 64.4 kg (142 lb) 08/23/2023 10:46 AM MANAGER COMMUNICATION Height 149.9 cm (4' 11 ) 08/23/2023 10:46 AM MANAGER COMMUNICATION Body Mass Index 28.68 08/23/2023 10:46 AM MANAGER COMMUNICATION documented in this encounter Patient Instructions * Patient Instructions* Thi Lugo MD - 08/23/2023 10:40 AM MANAGER COMMUNICATION Please let your neurologist- Julianna Mirza MD and Jluis Gautam M.D., Ph.D : know about migraines /vision problem. GER COMMUNICATION GER COMMUNICATION GER COMMUNICATION documented in this encounter Progress Notes * Thi Lugo MD - 08/23/2023 10:40 AM CST Reason for Visit: Prediabetes and Hypertension History of Present Illness: HPI Miss Chio Orantes is a pleasant 72-year-old female with complex past and current medical history butnot limited to asthma, Prediabetes, CVA and paroxysmal was on Eliquis: now aspirin only, CAD, heartfailure preserved ejection fraction, SLE- on methotrexate for SLE, prediabetes, peripheral neuropathy, chronic GERD, restless legs and hypertension was seen in office today for 6-month follow-up appointment. Was started on jardiance per golf course equipment operator for her heart. Watches her sugars PRN . Usually in early 100s. She states she has had some migraines- mainly visual symptoms. Seeing ophthal. MTX was stopped per rhem due to elevated LFTS. She will recheck with theM. SHE HAS COLONOSCOPY COMING UP. She complains of leg cramps. Had nerve test per neuro. They started her on new medication -she is unsure which one, she just picked up today Hypertension (Follow-Up): The patient presents for follow-up [...] of chest pain shortness of breath or strokelike symptoms. Patient has been taking the medication regularly and denies any side effects of myalgias, andhas no significant changes in memory and otherwise is tolerating the medication well. The patient has been compliant with medications. Per last office note: Specialists 1. Cardiology at [facility]. 2. Rheum Dr. Song 3. Neurology for memory loss and Hx of stroke- Julianna Mirza MD and Jluis Gautam M.D., Ph.D 4. Pulmonology: asthma 5 eye doctor. 6. PRN dermatology No other concerns for today ROS: Review of Systems Constitutional: Negative for activity change, appetite change, chills and fever. HENT: Negative for congestion, ear discharge, facial swelling, hearing loss, nosebleeds, postnasal drip, rhinorrhea and sinus pressure. Eyes: Negative for visual disturbance. Respiratory: Negative for cough, shortness of breath and wheezing. Cardiovascular: Negative for chest pain, palpitations and leg swelling. Gastrointestinal: Negative for abdominal pain, constipation, diarrhea, heartburn, nausea and vomiting. Endocrine: Negative for polyuria. Genitourinary: Negative for dysuria, hematuria and pelvic pain. Musculoskeletal: Negative for arthralgias. Neurological: Positive for tingling and memory loss. Negative for dizziness, syncope and headaches. Psychiatric/Behavioral: Negative for behavioral problems. Medications: Current Outpatient Medications: albuterol sulfate HFA 108 (90 Base) MCG/ACT inhaler, Inhale 2 puffs into the lungs every 4 (four) hours as needed for Wheezing., Disp: 18 g, Rfl: 3 atorvastatin 80 MG tablet, TAKE 1 TABLET BY MOUTH EVERY DAY, Disp: , Rfl: B-D 3CC LUER-KAILASH SYR 22GX1 22G X 1 3 ML Misc, , Disp: , Rfl: bisoprolol (ZEBETA) 5 MG tablet, Take 1 tablet (5 mg total) by mouth daily., Disp: , Rfl: calcium carbonate 600 MG [...] , Rfl: montelukast (SINGULAIR) 10 MG tablet, TAKE 1 TABLET BY MOUTH EVERY DAY EVERY NIGHT Strength: 10 mg,Disp: 90 tablet, Rfl: 3 nitroglycerin 0.4 MG [...] total) by mouth daily., Disp: , Rfl: Review of patient's allergies indicates: Allergen Reactions Latex Rash Sulfa Antibiotics Swelling Levofloxacin Headache and Nausea Only Nitrofurantoin Headache Past Medical History: Diagnosis Date Anxiety Arthritis Asthma Hypertension Lupus (HHS/HCC) ([facility]) Sleep apnea Stroke (HHS/HCC) ([facility]) Past Surgical History: Procedure Laterality Date APPENDECTOMY SECTION HC TRIGGER FINGER RELEASE HYSTERECTOMY SCREENING COLONOSCOPY 2019 TONSILLECTOMY Social History Socioeconomic History Marital status: Tobacco Use Smoking status: Never Passive exposure: Never Smokeless tobacco: Never Vaping Use Vaping Use: Never used Substance and Sexual Activity Alcohol use: Yes Comment: up 2 glasses of wine/month Drug use: Never Sexual activity: Not Currently [...] Normocephalic and atraumatic. Eyes: Conjunctiva/sclera: Conjunctivae normal. Comments: Wears glasses [...] Behavior normal. Judgment: Judgment normal. Filed Vitals: 08/23/23 1046 BP: 102/66 Pulse: 84 Resp: 18 Temp: 98.8 ??F (37.1 ??C) TempSrc: Temporal SpO2: 96% Weight: 64.4 kg (142 lb) Height: 1.499 m (4' 11 ) Diagnoses/Impression: 1. Prediabetes COLLECT.CAPILLARY (FNGR,HEEL,EAR) HEMOGLOBIN, GLYCOSYLATED 2. Dyslipidemia 3. Essential hypertension 4. Colon cancer screening Recommendations and Plan: 1. Prediabetes Chronic. A1c stable at 6.1 since starting Jardiance-per golf course equipment operator Continue Jardiance. Continue dietary restriction to avoid sugars and advised low-carb diet - COLLECT.CAPILLARY (FNGR,HEEL,EAR) - HEMOGLOBIN, GLYCOSYLATED 2. Dyslipidemia Chronic. Continue statin 3. Essential hypertension Chronic. Well-controlled. Continue current treatment. 4. Colon cancer screening Pending colonoscopy next month 5. Need for immunization against influenza - [09111] Influenza Virus Vaccine, Split Virus 0.7 mL (Single Dose Syringe Fluzone High Dose) Written instructions to follow-up with neurologist on her memory. Follow-up in 6 months. earlier If needed. She voiced understanding and agrees with the plan. All questions answered Orders Placed This Encounter COLLECT.CAPILLARY (FNGR,HEEL,EAR) HEMOGLOBIN, GLYCOSYLATED empagliflozin (JARDIANCE) 10 MG tablet Reviewed and updated this visit by provider: Meds Problems Thi Lugo MD Referring Provider: No ref. provider found PCP: Thi Lugo MD GER COMMUNICATION documented in this encounter Plan of Treatment Upcoming Encounters Date Type Department Care Team (Late st Contact Info) Description 10/02/2024 11:40 AM MANAGER COMMUNICATION Office Visit [facility] Multispecialty Care - [facility] [address] [place] [address] Johnnie Lr MD [address] [place] [address] 01/04/2025 9:50 AM CDT Office Visit [facility] Family Medicine - [place] [address] [place] [id number] Emily Jordan MD [address] [place], [place] [id number] documented as of this encounter Procedures Procedure Name Priority Date/Time Associated Diagnosis Comments COLLECT.CAPILLARY (FNGR,HEEL,EAR) Routine 08/23/2023 10:48 AM MANAGER COMMUNICATION Prediabetes HEMOGLOBIN, GLYCOSYLATED Routine 08/23/2023 Prediabetes documented in this encounter Results * HEMOGLOBIN, GLYCOSYLATED (08/23/2023) HGB A1C 6.1 % [id number] J[address] [facility] [place] 08/23/2023 us Thi Lugo MD LABORATORY Final Result -[id number] [address] [place] [address] [place] [address], [place] [phone] documented in this encounter Visit Diagnoses Diagnosis Prediabetes- Primary Other abnormal glucose Dyslipidemia Other and unspecified hyperlipidemia Essential hypertension Unspecified essential hypertension Colon cancer screening Special screening for malignant neoplasms, colon Need for immunization against influenza Need for prophylactic vaccination and inoculation against influenza documented in this encounter Additional Health Concerns Assessment Noted Time PHQ-9 Depression Total Score: 1 04/03/20 23 3:30 PM CDT documented as of this encounter Care Teams Refractive Surgeon Relationship Specialty [place] [address] [facility] [address] [place] [address] PCP - General FAMILY PRACTICE 09/29/21 06/08/24 [place] [address] [facility]. [facility] [address] [place] [address] RHEUMATOLOGY 09/27/20 documented as of this encounter
--- OUTSIDE RECORDS SUMMARY | 2024-08-29 09:53 | XMS_ITS | Encounter Summary ---
Author Organization [facility] Address [address] [place] [address]. [place] [address] [place] [address] Care Team Providers Care Lost And Found Clerk Name Role Phone Gladis Song MD Unavailable Thi Lugo MD Primary Care Provider Reason for Visit * Auth/Cert (Routine) Specialty Diagnoses / Procedures Referred By Contac t Referred To Contact Diagnoses Encounter for screening for malignant neoplasm of colon COLON CANCER SCREENING Procedures COLONOSCOPY,DIAGNOSTIC COLONOSCOPY DIAGNOSTIC WITH/WITHOUT SPECIMEN BRUSH/WASH WITH POSSIBLE BIOPSY AND POSSIBLE POLYPECTOMY Randal Griffin MD [address] [place] [address] Phone: tel: fax: Referral ID Status Reason Start Date Expiration Date Visits Re quested Visits Authorized [id number] 1 1 Encounter Details Date Type Department Care Team (Late st Contact Info) Description 09/18/2023 10:40 AM RISK INVESTIGATOR - 09/18/2023 11:25 AM RISK INVESTIGATOR Surgery [facility] [address] [place] [address] Randal Griffin MD [address] [place] [address] COLONOSCOPY - negative Surgery Details Date/Time Status Location OR Service Patient Class Case Class Case Type Trauma Case? 09/18/2023 10:40 AM Posted [facility] OR OR 1 Gastroenterology Short Stay/Outpa tient Surgery No Panel 1 Procedure LRB Anes Op Region Wound Class Comments COLONOSCOPY - negative N/A Monitor Anesthesia Care Clean Contaminated diverticulosis Surgeon Surgeon Role Service Panel Randal Griffin MD Primary Gastroenterology 1 Special Needs C documented in this encounter Social History Tobacco Use Types Packs/Day Years Used Date Smoking Tobacco: Never Passive Smoke Exposure: Never Smokeless Tobacco: Never Tobacco Cessation:Counseling Given: Not Answered Alcohol Use Standard Drinks/Week Comments Yes 0 (1 standard drink = 0.6 oz pur e alcohol) occassionally PHQ-2 Answer Date Recorded Patient Health Questionnaire-2 Score 0 04/03/2023 Comments No Sex and Gender Information Value Date Recorded Sex Assigned at Not on file Legal Sex Female 10:22 PM RISK INVESTIGATOR Gender Identity Female 09/12/2021 9:51 AM RISK INVESTIGATOR Sexual Orientation Straight 09/12/2021 9: 51 AM RISK INVESTIGATOR documented as of this encounter Last Filed Vital Signs Vital Sign Reading Time Taken Comments Blood Pressure 126/50 09/18/2023 11:15 AM RISK INVESTIGATOR Pulse 63 09/18/2023 8:42 AM RISK INVESTIGATOR Temperature 36.3 ??C (97.3 ??F) 09/18/2023 8:42 AM CS T Respiratory Rate 18 09/18/2023 8:42 AM RISK INVESTIGATOR Oxygen Saturation 96% 09/18/2023 11:15 AM RISK INVESTIGATOR Inhaled Oxygen Concentration - - Weight 64.4 kg (142 lb) 09/05/2023 10:48 AM RISK INVESTIGATOR Height 149.9 cm (4' 11 ) 09/05/2023 10:48 AM RISK INVESTIGATOR Body Mass Index 28.68 09/05/2023 10:48 AM RISK INVESTIGATOR documented in this encounter Discharge Instructions * Discharge Instructions* Randal Griffin MD - 09/18/2023 11:09 AM RISK INVESTIGATOR Negative colonoscopy Reasonable to stop further colonoscopies unless symptoms dictate otherwise INVESTIGATOR INVESTIGATOR INVESTIGATOR * Attachments The following attachments cannot be sent through Care Everywhere. * Colonoscopy Discharge Instructions (Armenian) * Monitored Anesthesia Care (Armenian) documented in this encounter Medications at Time of Discharge atorvastatin 80 MG tablet TAKE 1 TABLET BY MOUTH EVERY DAY 05/26/2019 Calcium Carbonate Antacid (CALCIUM CARBONATE OR) Take 600 mg by mouth daily. ELIQUIS 5 MG tablet Take 1 tablet (5 mg total) by mouth 2 (two) times daily. 06/22/2022 empagliflozin (JARDIANCE) 10 MG tablet Take 1 tablet (10 mg total) by mouth daily. 06/21/2023 isosorbide mononitrate ER (IMDUR) 30 MG 24 hr tabletIndications: Essential hypertension Take 1 tablet (30 mg total) by mouth daily. 30 tablet 10/19/2022 nitroglycerin 0.4 MG SL tablet As needed 05/23/2018 vitamin C 1000 MG tablet Take 1 tablet (1,000 mg total) by mouth daily. vitamin D3, cholecalciferol, 125 mcg capsule 1 capsule (125 mcg total) daily. 11/30/2014 albuterol sulfate HFA 108 (90 Base) MCG/ACT inhalerIndications :Shortness of breath Inhale 2 puffs into the lungs every 4 (four) hours as needed for Wheezing. 18 g 3 07/30/2023 4 B-D 3CC LUER-KAILASH SYR 22GX1 22G X 1 3 ML Misc 11/25/2019 4 bisoprolol (ZEBETA) 5 MG tablet Take 1 tablet (5 mg total) by mouth daily. 06/12/2022 4 fluconazole (DIFLUCAN) 150 MG tablet Take 1 tablet (150 mg total) by mouth once. 02/22/2023 4 fluticasone furoate-vilanterol (BREO ELLIPTA) 100-25 MCG/ACT inhalerIndications :Mild persistent asthma without complication (HHS/HCC) Inhale 1 puff into the lungs daily. Rinse and spit after use 180 each 3 03/14/2023 4 folic acid (FOLVITE) 1 MG tabletIndications: Rheumatoid arthritis without rheumatoid factor, multiple sites ([facility]) TAKE 1 TABLET BY MOUTH EVERY DAY 90 tablet 3 11/27/2022 4 furosemide (LASIX) 20 MG tablet Take 1 tablet (20 mg total) by mouth daily. 06/22/2022 4 hydroCHLOROthiazid e (HYDRODIURIL) 25 MG tablet 4 methotrexate 2.5 MG tablet 08/17/2021 4 metoprolol succinate ER (TOPROL-XL) 50 MG 24 hr tablet 4 montelukast (SINGULAIR) 10 MG tabletIndications: Seasonal allergies TAKE 1 TABLET BY MOUTH EVERY DAY EVERY NIGHT Strength: 10 mg 90 tablet 3 09/06/2022 4 montelukast (SINGULAIR) 10 MG tabletIndications: Seasonal allergies take 1 tablet by mouth every day at night 90 tablet 3 09/19/2023 4 pantoprazole EC (PROTONIX) 40 MG tabletIndications: Gastroesophageal reflux disease without esophagitis Take 1 tablet (40 mg total) by mouth daily. 90 tablet 07/31/2023 4 PARoxetine (PAXIL) 20 MG tabletIndications: Anxiety state Take 2 tablets (40 mg total) by mouth daily. 180 tablet 1 02/22/2023 4 potassium chloride CR 20 MEQ tablet TAKE 2 TABLETS EVERY MORNING AND 2 TABLETS EVERY EVENING 01/04/2020 4 Respiratory Therapy Supplies (ONE FLOW SPIROMETER) KitIndications:Rib pain on right side,Fall, initial encounter 1. Sit up straight and tall, and [...] as prescribed, typically about 10 breaths every hour. 1 kit 06/03/2023 4 triamcinolone (KENALOG) 0.1 % creamIndications:A llergic dermatitis Apply topically 2 (two) times daily. 15 g 1 02/22/2023 4 triamcinolone (KENALOG) 0.1 % creamIndications:A llergic dermatitis APPLY TOPICALLY TWICE A DAY 15 g 1 09/19/2023 4 documented as of this encounter H&P Notes * Randal Griffin MD - 09/18/2023 10:11 AM CST Images from the original note were not included. Reason for Visit: Consult (New pt Dr. Lugo referral ) History of Present Illness: Chio Orantes is a 72-year-old female who was referred for colonoscopy. She states that herlast colonoscopy was maybe about 5 years ago and she admits to having polyps at that time. She states that her PCP told her that she is due for a colonoscopy. In addition, she admits to diarrhea, occasional nausea and vomiting at the time of diarrhea, occasional left lower quadrant abdominal pain. She states that she was possibly diagnosed with irritable bowel syndrome in the past. She denies any family history of colon cancer, inflammatory bowel disease or adenomatous colon polyps; denies any personal history of unintentional weight loss, rectal bleeding, dark stools, hematemesis, narrowed stools, rectal pain, bloating. Abdominal surgeries include , appendectomy, hysterectomy. She denies any previous issues with anesthesia. She takes Eliquis for CVA and TIAs in the past. Her jewel bearing turner is Dr. Oneyda Luque. As I was talking to her, I noticed a dark lesion on the right side of the lower lip. She states that it has been present for about 3 to 4 days. She states that she gets lesions all over her lips are not dark and she has been evaluated by 2 forge press operator in the past. However she states that this dark lesion has been present for only 3 to 4 days and has not been evaluated by a forge press operator or a physician. She calls it a scab. I have reviewed the past medical, surgical, social and family histories. ROS: Review of Systems Constitutional: Negative. HENT: Negative. Eyes: Negative. Respiratory: Negative. Cardiovascular: Negative. Gastrointestinal: Negative. Genitourinary: Negative. Musculoskeletal: Negative. Neurological: Negative. Endo/Heme/Allergies: Negative. Psychiatric/Behavioral: Negative. Medications: Current Outpatient Medications: albuterol sulfate HFA [...] every day, Disp: , Rfl: dicyclomine (BENTYL) 10 MG capsule, TAKE 1 CAPSULE (10 MG TOTAL) BY MOUTH 2 (TWO) TIMES DAILY FOR 30 DAYS., Disp: , Rfl: ELIQUIS 5 MG tablet, Take 1 tablet (5 mg total) by mouth 2 (two) times daily., Disp: , Rfl: fluconazole (DIFLUCAN) 150 [...] 25 MG tablet, , Disp: , Rfl: hydroxychloroquine (PLAQUENIL) 200 MG tablet, , Disp: , Rfl: isosorbide [...] to 3 doses total., Disp: , Rfl: ondansetron (ZOFRAN) 4 MG tablet, Take 1 tablet (4 mg total) by mouth every 8 (eight) hours as needed for Nausea., Disp: 20 tablet, Rfl: 0 pantoprazole EC (PROTONIX) 40 MG tablet, Take 1 tablet (40 mg total) by mouth daily., Disp: 90 tablet, Rfl: 1 PARoxetine (PAXIL) 20 MG tablet, Take 2 [...] 3 ML Misc, , Disp: , Rfl: Allergies Allergies Allergen Reactions Latex Rash Sulfa Antibiotics Swelling Levofloxacin Headache and Nausea Only Nitrofurantoin Headache Past Medical History Past Medical History: Diagnosis Date Anxiety Arthritis Asthma (HHS/HCC) Hypertension Lupus (HHS/HCC) ([facility]) Sleep apnea Stroke (HHS/HCC) ([facility]) Past Surgical History Past Surgical History: Procedure Laterality Date APPENDECTOMY SECTION HC TRIGGER FINGER RELEASE HYSTERECTOMY TONSILLECTOMY Social History Tobacco Use Smoking status: Never Passive exposure: Never Smokeless tobacco: Never Vaping Use Vaping Use: Never used Substance Use Topics Alcohol use: Yes Comment: up 2 glasses of wine/month Drug use: Never Family History Family History Problem Relation Name Age of Onset Heart Disease Mother TB Father Other (lungs) Father Physical Exam Vitals and nursing note reviewed. Constitutional: General: She is not in acute distress. Appearance: Normal appearance. She is well-developed. She is not ill-appearing, toxic-appearing or diaphoretic. HENT: Head: Normocephalic and atraumatic. Comments: Right lower lip: There is an irregular dark lesion. Upon closer inspection, it appears talib a scab of some sort. Right Ear: External ear normal. Left Ear: External ear normal. Nose: Nose normal. Cardiovascular: Rate and Rhythm: Normal rate and regular rhythm. Heart sounds: Normal heart sounds. No murmur heard. Pulmonary: Effort: Pulmonary effort is normal. No respiratory distress. Breath sounds: Normal breath sounds. No wheezing. Abdominal: General: Bowel sounds are normal. There is no distension. Palpations: Abdomen is soft. Tenderness: There is no abdominal tenderness. There is no guarding or rebound. Musculoskeletal: General: Normal range of motion. Cervical back: Normal range of motion and neck supple. Skin: General: Skin is warm and dry. Neurological: General: No focal deficit present. Mental Status: She is alert and oriented to person, place, and time. Psychiatric: Mood and Affect: Mood normal. Behavior: Behavior normal. Vitals Vitals: 04/24/23 1256 Patient Position: Sitting BP Location: Left arm Cuff size: Adult Regular BP: 130/77 Pulse: 76 Body mass index is 28.96 kg/m??. Diagnoses/Impression: 1. Diarrhea, unspecified type 2. Left lower quadrant abdominal pain 3. History of colon polyps Recommendations and Plan: Chio Orantes 72-year-old female with a history of colon polyps, diarrhea, occasional left lower quadrant abdominal pain due for a colonoscopy. Colonoscopy is indicated. Risks, benefits and alternatives of a colonoscopy have been discussed with patient including but not limited to abdominaldiscomfort, bleeding, infection, perforation, aspiration, missed lesions, drug reaction, incompleteprocedure, pulmonary or cardiac issues, risk of delayed diagnosis of postprocedural complications, possible need for further procedure or surgery. Ample time was given for questions and all questionshave been answered. Patient wishes to proceed and has been scheduled for a colonoscopy. Prep instructions reviewed and provided. Verbal consent obtained today. Signed consent will be obtained on the day of procedure. Ample time was given for questions and all questions were addressed. We will contact Dr. Duggan regarding perioperative management of Micheal. In terms of the skin lesion on the right lower lip, plan closer examination, it does appear to be ascab. I did advise that she touch base with her PCP or one of the forge press operator she has seen in [facility] for further evaluation. Thank you very much for this referral and for allowing me to participate in the care of your patient. I spent 45 minutes today reviewing the patient's medical record, obtaining history, performing an exam, ordering medications, tests, and/or procedures, documenting in the medical record, referring and/or communicating with other health care providers, counseling and educating the patient, and coordinating care. Note: This note was created with the aid of dictation software, thus there may be some word substitutions or errors. Again, thank you for allowing me to provide consultative services and to participate in the care ofChio Orantes. Randal Griffin MD INVESTIGATOR documented in this encounter OR Notes * Op Note - Randal Griffin MD - 09/18/2023 11:08 AM CST Colonoscopy Procedures Patient name: Chio Orantes Date of : 1950 [place] Time out Complete: Yes Consent Obtained: Yes Surgeon: Randal Griffin MD Cloth Printing Utility Worker: Circulating Nurse 1: Belia Baker RN Circulating Nurse 2: Angelita John RN Scrub Person 1: Monique Amador RN Anesthesia Present: Yes Type of Anesthesia: Total IV Anesthesia Mechanical Ventilation: No Medication Used: Refer to anesthesia Pre-Procedure Diagnosis: History of colon polyps Post Procedure Diagnosis: Sigmoid diverticulosis, mild internal hemorrhoids otherwise normal colon Date of Last Colonoscopy: Possibly 5 years ago Colonoscopy: Colonoscopy-Complete Quality of prep: Very Good Randolph bowel prep score 8 Procedure Device: Fiber-optic flexible Approach: Anal/Rectal Cecal Intubation: Yes Electrocautery Used: No Specimens to Laboratory: None Withdraw time: 7 minutes or over EBL: Minimal INTRODUCTION: Patient is a 72-year-old female with a history of colon polyps here for a colonoscopy. INDICATION: History of colon polyps PROCEDURE: Complete colonoscopy ENDOSCOPE: Olympus 190 ASA: 3 COMPLICATIONS: No immediate complications PRE-ANESTHESIA ASSESSMENT: Patient is alert and oriented. No change in history and physical. After reviewing the risks and benefits, the patient was deemed in satisfactory condition to undergo the procedure. DESCRIPTION OF PROCEDURE: The risks, benefits and alternatives of the procedure were discussed with the patient in the officeincluding but not limited to bleeding, perforation, possible need for further procedure or surgery.I discussed the visual limitations (especially with prep difficulties). Ample time was given for que stions and all questions were answered and informed consent was obtained. The patient was taken to the endoscopy suite and was placed in the left lateral decubitus position after appropriate sedation. Digital rectal exam was performed and was normal. A lubricated colonoscope was introduced through the anus under direct vision and advanced into the rectum, through the sigmoid colon, left colon, splenic flexure, transverse colon, hepatic flexure, right colon and into thececum. Cecal landmarks (transillumination in the right lower quadrant, identification of ileocecal valve, appendiceal orifice and cecal strap) were clearly identified and appeared normal. The ileocecal valve was visualized and appeared normal. The terminal ileum was intubated very quickly for a short distance, appeared normal and fell back into the cecum. I withdrew the scope while carefully examining the mucosa of the entire colon. When stated that a polyp was removed, it was removed in its entirety unless otherwise indicated. Hemostasis checked and achieved. Tortuous sigmoid colon Findings: Cecum: normal Ileocecal Valve: normal Ascending Colon: normal Hepatic Flexure: normal Transverse Colon: normal Splenic Flexure: normal Descending Colon: normal Sigmoid Colon: abnormal (tortuous and edematous sigmoid colon causing some narrowing, moderate uncomplicated diverticulosis) Rectum: normal Anal canal: abnormal (mild internal hemorrhoids) The rectum on forward view and retroflexed view appeared normal without any evidence of internal hemorrhoids or anorectal pathology. Air was removed from the colon and the scope retrieved. Scope withdrawal time was at least 7 minutes. The patient tolerated the procedure well and was sent to the recovery room in stable condition. RECOMMENDATIONS: -Reasonable to stop future colonoscopies given her age and lack of polyps that this colonoscopy -high-fiber diet, increase water intake, avoidance of constipation Note: This note was created with the aid of dictation software, thus there may be some word substitutions or errors. Attempts have been made to correct errors. However, there may be uncorrected grammatical, spelling and recognition errors present. Again, thank you for allowing me to provide consultative services and to participate in the care ofChio Orantes. Randal Griffin MD 09/18/2023 11:09 AM INVESTIGATOR documented in this encounter Plan of Treatment Upcoming Encounters Date Type Department Care Team (Late st Contact Info) Description 10/02/2024 11:40 AM RISK INVESTIGATOR Office Visit [facility] [address] [facility] [place] [id number] Johnnie Lr MD [address] [facility] [address] [place] [address] 01/04/2025 9:50 AM CDT Office Visit [facility] [place] [address] [place], [place] [address] Emily Jordan MD [address] [place] [address] documented as of this encounter Procedures Procedure Name Priority Date/Time Associated Diagnosis Comments COLONOSCOPY FLX DX W/COLLJ SPEC WHEN PFRMD 09/18/2023 10:21 AM RISK INVESTIGATOR Encounter for screening for malignant neoplasm of colon Special Needs C COLONOSCOPY Routine 09/18/2023 8:37 AM RISK INVESTIGATOR documented in this encounter Visit Diagnoses Diagnosis Encounter for screening for malignant neoplasm of colon- Primary Special screening for malignant neoplasms, colon Encounter for screening for malignant neoplasm of colon Special screening for malignant neoplasms, colon Encounter for screening for malignant neoplasm of colon Special screening for malignant neoplasms, colon documented in this encounter Admitting Diagnoses Diagnosis Encounter for screening for malignant neoplasm of colon Special screening for malignant neoplasms, colon documented in this encounter Administered Medications Inactive Administered Medications - up to 3 most recent administrations Medication Order MAR Action Action Date Dose Rate Site lactated ringers infusion at 10 mL/hr, Intravenous, Continuous, Starting on Sat09/18/23 at 0900, Until Sat09/18/23 at 1410, Pre-ProcedureIndications :Encounter for screening for malignant neoplasm of colon Continued by Anesthesia 09/18/2023 10:21 AM RISK INVESTIGATOR 10 mL/hr New Bag 09/18/2023 9:07 AM RISK INVESTIGATOR 10 mL/hr documented in this encounter Active and Recently Administered Medications Times are shown in RISK INVESTIGATOR. Continuous Medication Order 09/16/2023 09/17/2023 09/18/2023 lactated ringers infusion at 10 mL/hr, Intravenous, Continuous, Starting on Sat09/18/23 at 0900, Until Sat09/18/23 at 1410, Pre-Procedure 0907 (New Bag - Prov ider: Lesley Willis, ROZINA)1021 (Continued by Anesthesia - Provider: Rula Colmenares CRNA)1145 (Infusion Stop Time - Provider: Lesley Willis, ROZINA) documented in this encounter Additional Health Concerns Assessment Noted Time PHQ-9 Depression Total Score: 1 04/03/20 23 3:30 PM CDT documented as of this encounter Care Teams Lost And Found Clerk Relationship Specialty [place] [address] [facility] [place] [address] PCP - General FAMILY PRACTICE 09/29/21 06/08/24 [place] [address] [facility] [address] [place] [address] RHEUMATOLOGY 09/27/20 documented as of this encounter
--- OUTSIDE RECORDS SUMMARY | 2024-08-29 09:53 | XMS_ITS | Encounter Summary ---
Author Organization [facility] Address [address] [place] [address]. [place] [address] [place] [address] Care Team Providers Care Lead Pressman Roto Gravure Printing Name Role Phone Gladis Song MD Unavailable Thi Lugo MD Primary Care Provider [phone] Reason for Visit * Auth/Cert (Routine) Specialty Diagnoses / Procedures Referred By Contac t Referred To Contact Diagnoses Encounter for screening for malignant neoplasm of colon COLON CANCER SCREENING Procedures COLONOSCOPY,DIAGNOSTIC COLONOSCOPY DIAGNOSTIC WITH/WITHOUT SPECIMEN BRUSH/WASH WITH POSSIBLE BIOPSY AND POSSIBLE POLYPECTOMY Randal Griffin MD [address] [place] [address] Phone: tel: fax: Referral ID Status Reason Start Date Expiration Date Visits Re quested Visits Authorized [id number] 1 1 Encounter Details Date Type Department Care Team (Latest Contact Info) Description 09/18/2023 7:49 AM TANK FURNACE OPERATOR - 09/18/2023 12:05 PM [facility] Hospital Encounter [facility] [address] [place] [address] Randal Griffin MD [address] [place] [address] Discharge Disposition: Home or Self Care (Routine [...] on file Legal Sex Female 10:22 PM TANK FURNACE OPERATOR Gender Identity Female 09/12/2021 9:51 AM TANK FURNACE OPERATOR Sexual Orientation Straight 09/12/2021 9: 51 AM TANK FURNACE OPERATOR documented as of this encounter Last Filed Vital Signs Vital Sign Reading Time Taken Comments Blood Pressure 126/50 09/18/2023 11:15 AM TANK FURNACE OPERATOR Pulse 63 09/18/2023 8:42 AM TANK FURNACE OPERATOR Temperature 36.3 ??C (97.3 ??F) 09/18/2023 8:42 AM CS T Respiratory Rate 18 09/18/2023 8:42 AM TANK FURNACE OPERATOR Oxygen Saturation 96% 09/18/2023 11:15 AM TANK FURNACE OPERATOR Inhaled Oxygen Concentration - - Weight 64.4 kg (142 lb) 09/05/2023 10:48 AM TANK FURNACE OPERATOR Height 149.9 cm (4' 11 ) 09/05/2023 10:48 AM TANK FURNACE OPERATOR Body Mass Index 28.68 09/05/2023 10:48 AM TANK FURNACE OPERATOR documented in this encounter Discharge Instructions * Discharge Instructions* Randal Griffin MD - 09/18/2023 11:09 AM TANK FURNACE OPERATOR Negative colonoscopy Reasonable to stop further colonoscopies unless symptoms dictate otherwise FURNACE OPERATOR FURNACE OPERATOR FURNACE OPERATOR * Attachments The following attachments cannot be sent through Care Everywhere. * Colonoscopy Discharge Instructions (Kyrgyz) * Monitored Anesthesia Care (Kyrgyz) documented in this encounter Medications at Time [...] CVA and TIAs in the past. Her director of category management is Dr. Oneyda Luque. As I was talking to her, I noticed a dark lesion on the right side of the lower lip. She states that it has been present for about 3 to 4 days. She states that she gets lesions all over her lips are not dark and she has been evaluated by 2 bitumen plant operator in the past. However she states that this dark lesion has been present for only 3 to 4 days and has not been evaluated by a bitumen plant operator or a physician. She calls it [...] Anxiety Arthritis Asthma (HHS/HCC) Hypertension Lupus (HHS/HCC) ([facility]/HCC) Sleep apnea Stroke (HHS/HCC) (CMS/HCC) Past Surgical History Past Surgical History: Procedure [...] with her PCP or one of the bitumen plant operator she has seen in [facility] for further evaluation. Thank you very much [...] the care ofChio Orantes. Randal Griffin MD FURNACE OPERATOR documented in this encounter OR Notes * Op Note - Randal Griffin MD - 09/18/2023 11:08 AM CST Colonoscopy Procedures Patient name: Chio Orantes Date of : 1950 [place] Time out Complete: Yes Consent Obtained: Yes Surgeon: Randal Griffin MD Staff Design Engineer: Circulating Nurse 1: Belia Baker RN Circulating [...] Colonoscopy: Colonoscopy-Complete Quality of prep: Very Good [place] bowel prep score 8 Procedure Device: Fiber-optic [...] Orantes. Randal Griffin MD 09/18/2023 11:09 AM FURNACE OPERATOR documented in this encounter Plan of Treatment Upcoming Encounters Date Type Department Care Team (Late st Contact Info) Description 10/02/2024 11:40 AM TANK FURNACE OPERATOR Office Visit [facility] Medical [facility] Multispecialty Care - [facility] [address] [place] [address] Johnnie Lr MD [address] [place] [address] 01/04/2025 9:50 AM CDT Office Visit [facility] - [place] [address] [place], [place] [id number] Emily Jordan MD [address] [place] [address] documented as of this encounter Procedures Procedure Name Priority Date/Time Associated Diagnosis Comments COLONOSCOPY FLX DX W/COLLJ SPEC WHEN PFRMD 09/18/2023 10:21 AM TANK FURNACE OPERATOR Encounter for screening for malignant neoplasm of colon Special Needs C COLONOSCOPY Routine 09/18/2023 8:37 AM TANK FURNACE OPERATOR documented in this encounter Visit Diagnoses Diagnosis [...] colon Continued by Anesthesia 09/18/2023 10:21 AM TANK FURNACE OPERATOR 10 mL/hr New Bag 09/18/2023 9:07 AM TANK FURNACE OPERATOR 10 mL/hr documented in this encounter Active and Recently Administered Medications Times are shown in TANK FURNACE OPERATOR. Continuous Medication Order 09/16/2023 09/17/2023 09/18/2023 lactated [...] documented as of this encounter Care Teams Lead Pressman [employer] Print[employer] Relationship Specialty [place] [address] [facility] [place] [address] PCP - General FAMILY PRACTICE 09/29/21 06/08/24 [place] [address] [facility] [address] RHEUMATOLOGY 09/27/20 documented as of this encounter
--- OUTSIDE RECORDS SUMMARY | 2024-08-29 09:53 | XMS_ITS | Encounter Summary ---
Author Organization [facility] Address [address] [place] [address]. [place], [place] [address] [place] [address] Care Team Providers Care Micrographics Services Supervisor Name Role Phone Gladis Song MD Unavailable Thi Lugo MD Primary Care Provider [phone] Reason for Visit * Reason Onset Date Comments Refill Request 07/30/2023 Encounter Details Date Type Department Care Team (Late st Contact Info) Description 07/30/2023 Telephone [facility] Medical Group Family & Internal Medicine [address] [address] Thi Lugo MD [address] [place] [address]. [address] [place] [address] Refill Request Social History Tobacco Use Types Packs/Day Years [...] on file Legal Sex Female 10:22 PM SUPPLY AND DISTRIBUTION MANAGER Gender Identity Female 09/12/2021 9:51 AM SUPPLY AND DISTRIBUTION MANAGER Sexual Orientation Straight 09/12/2021 9: 51 AM SUPPLY AND DISTRIBUTION MANAGER documented as of this encounter Progress Notes * Ayesha Jamison - 07/30/2023 10:59 AM CST Patient called regarding med refill. LY AND DISTRIBUTION MANAGER documented in this encounter Plan of Treatment Upcoming Encounters Date Type Department Care Team (Late st Contact Info) Description 10/02/2024 11:40 AM SUPPLY AND DISTRIBUTION MANAGER Office Visit [facility] Multispecialty Care - [facility] [address] [facility] [place] [address] Johnnie Lr MD [address] [facility] [address] [place] [address] 01/04/2025 9:50 AM CDT Office Visit [facility] Family Medicine - [place] [address] [place] [address] Emily Jordan MD [address] [place] [address] documented as of this encounter Visit Diagnoses Diagnosis Gastroesophageal reflux disease without esophagitis Esophageal reflux documented in this encounter Additional Health Concerns Assessment Noted Time PHQ-9 Depression Total Score: 1 04/03/20 23 3:30 PM CDT documented as of this encounter Care Teams Micrographics Services Supervisor Relationship Specialty [place] [address] [facility] [place] [address] PCP - General FAMILY PRACTICE 09/29/21 06/08/24 [place] [address] [facility] [place] [address] RHEUMATOLOGY 09/27/20 documented as of this encounter
--- OUTSIDE RECORDS SUMMARY | 2024-08-29 09:53 | XMS_ITS | Encounter Summary ---
Author Organization [facility] Address [address] [place] [address]. [place] [address] [place] [address] Care Team Providers Care Homeworker Name Role Phone Gladis Song MD Unavailable Thi Lugo MD Primary Care Provider [phone] Encounter Details Date Type Department Care Team (Latest Contact Info) Description 09/10/2023 2:48 PM SAP DIRECTOR - 09/10/2023 11:59 PM SAP DIRECTOR Hospital Encounter [facility] Cardiopulmonary Services [address] [place] [address] Marshla Cota MD [address] [address] Discharge Disposition: Home or Self Care [...] on file Legal Sex Female 10:22 PM SAP DIRECTOR Gender Identity Female 09/12/2021 9:51 AM SAP DIRECTOR Sexual Orientation Straight 09/12/2021 9: 51 AM SAP DIRECTOR documented as of this encounter Medications at [...] 10 mg 90 tablet 3 09/06/2022 4 pantoprazole EC (PROTONIX) 40 MG tabletIndications: [...] times daily. 15 g 1 02/22/2023 4 documented as of this encounter Plan of Treatment Upcoming Encounters Date Type Department Care Team (Late st Contact Info) Description 10/02/2024 11:40 AM SAP DIRECTOR Office Visit [facility]ialty [facility] [address] [place] [address] Johnnie Lr MD [address] [place] [address] 01/04/2025 9:50 AM CDT Office Visit [facility] Family Medicine - [place] [address] [place] [address] Emily Jordan MD [address] [place] [address] documented as of this encounter Procedures Procedure Name Priority Date/Time Associated Diagnosis Comments ECG 12-LEAD Routine 09/10/2023 2:58 PM SAP DIRECTOR Hypertension documented in this encounter Results * ECG 12-Lead (09/10/2023 2:58 PM SAP DIRECTOR) 09/10/2023 2:58 PM SAP DIRECTOR Narrative [facility] RAD - 09/11/2023 6:21 AM SAP DIRECTOR ?[facility] ? Test Date: ?2023-09-10 Pat Name: ? MIRELLA ORANTES ?Department: ?? 85 ? Room: ? Gender: ? Female ? Rn Clinical Documentation: ?? : ?1950 ? Requested By: MARSHAL MACBEAN Order Number: [id number] ? Reading MD: ?? Adam Bazan ? Measurements Intervals ?Chandler ? Rate: ? 69 ? P: ?52 MT: ? 212 ?QRS: ?-28 QRSD: ? 99 ? T: ?31 QT: ? 414 ? QTc: ?446 ? Interpretive Statements SINUS RHYTHM WITH FIRST DEGREE AV BLOCK RSR' In V1 Or V2 Right VCD Or RVH Compared to ECG 01/09/2022 21:50:56 First degree AV block now present Low QRS voltage now present DIRECTOR Procedure Note Adam Bazan MD - 09/11/2023 [facility] Test Date: 2023-09-10 Pat Name: MIRELLA ORANTES Department: 85 Room: Gender: Female Rn Clinical Documentation: : 1950 Requested By: MARSHAL COTA Order Number: [id number] Reading MD: Adam Bazan Measurements Intervals Chandler Rate: 69 P: 52 MT: 212 QRS: -28 QRSD: 99 T: 31 QT: 414 QTc: 446 Interpretive Statements SINUS RHYTHM WITH FIRST DEGREE AV BLOCK RSR' In V1 Or V2 Right VCD Or RVH Compared to ECG 01/09/2022 21:50:56 First degree AV block now present Low QRS voltage now present DIRECTOR us Marshal Cota MD ECG ORDERABLES Final Result [facility] documented in this encounter Visit Diagnoses Diagnosis Hypertension Unspecified essential hypertension documented in this encounter Additional Health Concerns Assessment Noted Time PHQ-9 Depression Total Score: 1 04/03/20 23 3:30 PM CDT documented as of this encounter Care Teams Homeworker Relationship Specialty [place] [address] [facility] [address] [address] [place] [address] PCP - General FAMILY PRACTICE 09/29/21 06/08/24 [place] [address] [facility] [facility] [address] [place] [address] RHEUMATOLOGY 09/27/20 documented as of this encounter
--- OUTSIDE RECORDS SUMMARY | 2024-08-29 09:53 | XMS_ITS | Encounter Summary ---
Author Organization [facility] Address [address] [place] [address]. [place] [address] [place] [address] Care Team Providers Care Project Development Director Name Role Phone Gladis Song MD Unavailable Thi Lugo MD Primary Care Provider [phone] Reason for Visit * Auth/Cert (Routine) Specialty Diagnoses / Procedures Referred By Contac t Referred To Contact Diagnoses Encounter for screening for malignant neoplasm of colon COLON CANCER SCREENING Procedures COLONOSCOPY,DIAGNOSTIC COLONOSCOPY DIAGNOSTIC WITH/WITHOUT SPECIMEN BRUSH/WASH WITH POSSIBLE BIOPSY AND POSSIBLE POLYPECTOMY Randal Seth MD [address] [facility] [address] [place] [address] Phone: tel: fax: Referral ID Status Reason Start Date Expiration Date Visits Re quested Visits Authorized [id number] 1 1 Encounter Details Date Type Department Care Team (Late st Contact Info) Description 09/18/2023 10:21 AM LEVI MAKER Anesthesia Event [facility] [address] [place] [address] [place] [address] Nate Alejandra CRNA [address] [place] [address] Anesthesia Record Procedure Summary Procedure Name Responsible Anesthesiologist Anesthesia Start Time Anesthesia Stop Time COLONOSCOPY - negative Rula Colmenares, GALVANOMETER ASSEMBLER 09/18/23 1021 09/18/23 1053 Events Date Time Event Comment 09/18/2023 0904 0904 AN GALVANOMETER ASSEMBLER Prepped 1021 An Start Patient ID and consent checked and patient reassessed. 1021 An Start Data 1021 AN Immediate Reassess The pa tient was reevaluated immediately before sedation or regional anesthesia. 1021 Nasal Cannula Applied 1021 Anesthesia Ready 1053 Nasal Cannula Removed 1053 an stop data 1053 An Stop 1054 Post Anesthetic Care Handoff I completed my handoff to the receiving nurse during which we: 1. Identified the patient 2. Identified the responsible provider 3. Reviewed the pertinent medical history 4. Discussed the surgical course 5. Reviewed intra-op anesthesia management and issues during anesthesia 6. Set expectations for post-procedure period 7. Allowed opportunity for questions and acknowledgement of understanding. Meds Name Total lidocaine (PF) (XYLOCAINE) 1% injection 50 mg propofol (DIPRIVAN) 200 mg/20 mL injecti on 176.26 mg lactated ringers infusion 0 mL * Agents Name O2 * Blood No blood administrations on file. Lines, Drains, and Airways Type Details Placement Removal Peripheral IV Placement Date: 09/02 03/25; Placement Time: 09; Placed Outside of This Facility?: No; Size: 20 G; Orientation: Left; Location: Antecubital; Site Prep: Chlorhexidine; Insertion attempts: 1; Patient Tolerance: Tolerated well; Removal Date: 09/18/23; Removal Time: 1148; Removal Reason: Therapy Completed 09/18/23 0906 by Lesley Willis RN 09/18/23 1148 by Lesley Willis RN documented in this encounter Social History Tobacco [...] on file Legal Sex Female 10:22 PM LEVI MAKER Gender Identity Female 09/12/2021 9:51 AM LEVI MAKER Sexual Orientation Straight 09/12/2021 9: 51 AM LEVI MAKER documented as of this encounter OR Notes * Anesthesia Postprocedure Evaluation - Rula Colmenares CRNA - 09/18/2023 10:54 AM CST Anesthesia Post-op Note Chio Orantes Procedure(s): COLONOSCOPY DIAGNOSTIC WITH/WITHOUT SPECIMEN BRUSH/WASH WITH POSSIBLE BIOPSY AND POSSIBLE POLYPECTOMY Anesthesia type: MAC Vitals: 09/18/23 08 BP: (!) 154/67 Vitals: 09/18/23 0842 Pulse: 63 Vitals: 09/18/23 0842 Resp: 18 Vitals: 09/18/23 0842 Temp: 36.3 ??C Vitals: 09/18/23 0842 SpO2: 100% Patient Location: Phase II/Outpatient Level of Consciousness: awake, alert and oriented Pain Management: adequate analgesia Airway Patency: patent Respiratory Status: acceptable Cardiovascular Status: acceptable Post-Op Nausea: none Postoperative Hydration: euvolemic There were no known notable events for this encounter. MAKER * Anesthesia Preprocedure Evaluation - Rula Colmenares CRNA - 09/09/2023 11:51 AM CST Anesthesia ROS/MED History Reviewed: Patient summary , Nursing notes , ECG, Family history anesthesia, Anesthesia history , Medications , Labs Pre-Anesthetic State: alert, awake and responds appropriately Pulmonary (+) shortness of breath, sleep apnea, asthma (Moderate asthma with acute exacerbation) Cardiovascular Exercise tolerance:poor (+) hypertension, Valvular problems/Murmurs, (AI), (MR), (mild), CAD, CHF (Heart failure with preserved ejection fraction), arrhythmia, (A-fib), (Paroxysmal), hyperlipidemia ROS comment: SINUS RHYTHM WITH FIRST DEGREE AV BLOCK RSR' In V1 Or V2 Right VCD Or RVH Compared to ECG 01/09/2022 21:50:56 First degree AV block now present Low QRS voltage now present MAKER Neuro/Psych (+) neuromuscular disease, CVA (Hemiparesis affecting dominant side), (residual symptoms), dementia(Mild cognitive impairment 10/05/2022) Substance Use (+) alcohol use, monthly, 1-2 GI/Hepatic/Renal (+) GERD Endo/Other GENERAL COMMENTS Lupus most recent echocardiogram from 01/18/2021 normal EF of 66% as well as impaired diastolic function. NPO Status: Physical Evaluation Airway Mallampati: III TM Distance: >3 FB Neck ROM: normal Dental No notable dental history Pulmonary Breath sounds clear to auscultation Cardiovascular Rhythm: regular Rate: normal STOP-Bang Assessment: Anesthesia Plan ASA 3 Intravenous Induction Anesthesia type: MAC Plan for Airway: nasal cannula/simple face mask Informed Consent Anesthetic plan and risks discussed with patient of whom consent was obtained. . MAKER MAKER MAKER documented in this encounter Plan of Treatment Upcoming Encounters Date Type Department Care Team (Late st Contact Info) Description 10/02/2024 11:40 AM LEVI MAKER Office Visit [facility] Multispecialty Care - [facility] [address] [facility] [place] [address] Johnnie Lr MD 3 [facility] [address] [place] [address] 01/04/2025 9:50 AM CDT Office Visit [facility] Family Medicine - [place] [address] [place], [place] [address] Emily Jordan MD [address] [place], [place] [address] documented as of this encounter Visit Diagnoses Not on filedocumented in this encounter Administered Medications Inactive Administered Medications - up to 3 most recent administrations Medication Order MAR Action Action Date Dose Rate Site lactated ringers infusion at 10 mL/hr, Intravenous, Continuous, Starting on Sat09/18/23 at 0900, Until Sat09/18/23 at 1410, Pre-ProcedureIndications :Encounter for screening for malignant neoplasm of colon Continued by Anesthesia 09/18/2023 10:21 AM LEVI MAKER 10 mL/hr New Bag 09/18/2023 9:07 AM LEVI MAKER 10 mL/hr lidocaine (PF) (XYLOCAINE) 1 % injection Intravenous, PRN, Starting on Sat09/18/23 at 1029, Until Sat09/18/23 at 1053, Anesthesia Intra-Op Given 09/18/2023 10:29 AM LEVI MAKER 50 mg propofol (DIPRIVAN) IV bolus Intravenous, Continuous PRN, Starting on Sat09/18/23 at 1029, Until Sat09/18/23 at 1053, Anesthesia Intra-Op Given 09/18/2023 10:44 AM LEVI MAKER 30 mg Given 09/18/2023 10:33 AM LEVI MAKER 40 mg New Bag 09/18/2023 10:29 AM LEVI MAKER 75 mcg/kg/min 28.98 mL/ hr documented in this encounter Additional Health Concerns Assessment Noted Time PHQ-9 Depression Total Score: 1 04/03/20 23 3:30 PM CDT documented as of this encounter Care Teams Project Development Director Relationship Specialty [place] [address] [facility] [address] [place] [address] PCP - General FAMILY PRACTICE 09/29/21 06/08/24 [place] [address] [facility] [address] RHEUMATOLOGY 09/27/20 documented as of this encounter
--- OUTSIDE RECORDS SUMMARY | 2024-08-29 09:53 | XMS_ITS | Encounter Summary ---
Author Organization [facility] Address [address] [place] [address]. [place] [address] [place] [address] Care Team Providers Care Road Roller Engineer Name Role Phone Gladis Song MD Unavailable Thi Lugo MD Primary Care Provider [phone] Reason for Visit * Reason Onset Date Comments Medication Request 07/30/2023 Encounter Details Date Type Department Care Team (Late st Contact Info) Description 07/30/2023 Telephone [facility] Medical Group Multispecialty Care - [facility] [address] [facility] [place] [address] Johnnie Lr MD 3 [facility] [address] [place] [address] Medication Request Social History Tobacco Use Types Packs/Day [...] on file Legal Sex Female 10:22 PM PRINTING PRESS OPERATOR APPRENTICE Gender Identity Female 09/12/2021 9:51 AM PRINTING PRESS OPERATOR APPRENTICE Sexual Orientation Straight 09/12/2021 9: 51 AM PRINTING PRESS OPERATOR APPRENTICE documented as of this encounter Progress Notes * Dean Gipson RN - 07/30/2023 2:04 PM CST Spoke with patient at this time. Informed her the refill had been sent. Patient verbalized understanding. TING PRESS OPERATOR APPRENTICE * Dean Gipson RN - 07/30/2023 2:03 PM CSTAddended by: DEAN GIPSON on: 07/30/2023 02:03 PM Modules accepted: Orders TING PRESS OPERATOR APPRENTICE * Janeth Stewart - 07/30/2023 10:53 AM CST Pt needs a new script for her Albuterol inhaler sent to [facility] in [place]. Pt states shehas been out for a week. TING PRESS OPERATOR APPRENTICE documented in this encounter Plan of Treatment Upcoming Encounters Date Type Department Care Team (Late st Contact Info) Description 10/02/2024 11:40 AM PRINTING PRESS OPERATOR APPRENTICE Office Visit [facility] Medical Group Multispecialty Care - [facility] [address] [facility] [place] [address] Johnnie Lr MD 3 [facility] [address] [place] [address] 01/04/2025 9:50 AM CDT Office Visit [facility] Medical Group Family Medicine - [place] [address] [place], [place] [address] Emily Jordan MD [address] [place], [place] [address] documented as of this encounter Visit Diagnoses Diagnosis Shortness of breath documented in this encounter Additional Health Concerns Assessment Noted Time PHQ-9 Depression Total Score: 1 04/03/20 23 3:30 PM CDT documented as of this encounter Care Teams Road Roller Engineer Relationship Specialty [place] [address] [facility] [place] [address] PCP - General FAMILY PRACTICE 09/29/21 06/08/24 [place] [address] [facility] [place] [address] RHEUMATOLOGY 09/27/20 documented as of this encounter
--- OUTSIDE RECORDS SUMMARY | 2024-08-29 09:54 | XMS_ITS | Encounter Summary ---
Author Organization [facility] Address [address] [place] [address]. [place] [address] [place] [address] Care Team Providers Care Hyperbaric Nurse Name Role Phone Gladis Song MD Unavailable Thi Lugo MD Primary Care Provider [phone] Emily Jordan MD Primary Care Provider + Encounter Details Date Type Department Care Team (Late st Contact Info) Description 06/17/2023 Prep for Procedure [facility] One Day Services [address] [place] [address] Marshal Cota MD [address] [address] Social History Tobacco Use Types Packs/Day Years [...] on file Legal Sex Female 10:22 PM BIOMEDICAL EQUIPMENT SUPPORT SPECIALIST Gender Identity Female 09/12/2021 9:51 AM BIOMEDICAL EQUIPMENT SUPPORT SPECIALIST Sexual Orientation Straight 09/12/2021 9: 51 AM BIOMEDICAL EQUIPMENT SUPPORT SPECIALIST documented as of this encounter Plan of Treatment Upcoming Encounters Date Type Department Care Team (Late st Contact Info) Description 10/02/2024 11:40 AM BIOMEDICAL EQUIPMENT SUPPORT SPECIALIST Office Visit [facility]pecial[facility] - [facility] [address] [facility] [address] [place] [address] Johnnie Lr MD [address] [place] [address] 01/04/2025 9:50 AM CDT Office Visit [facility] Family Medicine - [place] [address] [place] [address] Emily Jordan MD [address] [place] [address] [phone] documented as of this encounter Results * ECG 12-Lead (09/10/2023 2:58 PM BIOMEDICAL EQUIPMENT SUPPORT SPECIALIST) 09/10/2023 2:58 PM BIOMEDICAL EQUIPMENT SUPPORT SPECIALIST Narrative [facility] - 09/11/2023 6:21 AM BIOMEDICAL EQUIPMENT SUPPORT SPECIALIST ?[facility] ? Test Date: ?2023-09-10 Pat Name: ? MIRELLA ORANTES ?Department: ?? 85 ? Room: ? Gender: ? Female ? Acid Regenerator: ?? : ?1950 ? Requested By: MARSHAL MACBEAN Order Number: [id number] ? Reading MD: ?? Adam Bazan ? Measurements Intervals ?[place] ? Rate: ? 69 ? P: ?52 WV: ? 212 ?QRS: ?-28 QRSD: ? 99 ? T: ?31 QT: ? 414 ? QTc: ?446 ? Interpretive Statements SINUS RHYTHM WITH FIRST DEGREE AV BLOCK RSR' In V1 Or V2 Right VCD Or RVH Compared to ECG 01/09/2022 21:50:56 First degree AV block now present Low QRS voltage now present EDICAL EQUIPMENT SUPPORT SPECIALIST Procedure Note Adam Bazan MD - 09/11/2023 [facility] Test Date: 2023-09-10 Pat Name: MIRELLA ORANTES Department: 85 Room: Gender: Female Acid Regenerator: : 1950 Requested By: MARSAHL COTA Order Number: [id number] Reading MD: Adam Bazan Measurements Intervals [place] Rate: 69 P: 52 WV: 212 QRS: -28 QRSD: 99 T: 31 QT: 414 QTc: 446 Interpretive Statements SINUS RHYTHM WITH FIRST DEGREE AV BLOCK RSR' In V1 Or V2 Right VCD Or RVH Compared to ECG 01/09/2022 21:50:56 First degree AV block now present Low QRS voltage now present EDICAL EQUIPMENT SUPPORT SPECIALIST us Marshal Cota MD ECG ORDERABLES Final Result Performing Organization Address City/State/[facility] [[email or web address]] Co de Phone Number [facility] documented in this encounter Visit Diagnoses Diagnosis Hypertension- Primary Unspecified essential hypertension Hypertension Unspecified essential hypertension documented in this encounter Additional Health Concerns Infection Onset Date Last Indicated Resolved Time COVID-19 Rule Out 05/09/2024 05/09/2024 05/09/2024 1:24 PM CDT Assessment Noted Time PHQ-9 Depression Total Score: 1 04/03/20 23 3:30 PM CDT documented as of this encounter Care Teams Hyperbaric Nurse Relationship Specialty [place] [address] [facility]. [address] [place] [address] PCP - General FAMILY PRACTICE 09/29/21 06/08/24 Emily Jordan MD [address] [place] [address] PCP - General FAMILY PRACTICE 06/09/24 [place] [address] [place] [address] RHEUMATOLOGY 09/27/20 documented as of this encounter
--- OUTSIDE RECORDS SUMMARY | 2024-08-29 09:54 | XMS_ITS | Encounter Summary ---
Author Organization [facility] Address [address] [place] [address]. [place] [address] [place] [address] Care Team Providers Care Lead Designer Name Role Phone Gladis Song MD Unavailable Thi Lugo MD Primary Care Provider Reason for Visit * Reason Onset Date Comments Cancel Procedure 06/17/2023 Cancel Colonosc opy on 06/19 Encounter Details Date Type Department Care Team (Late st Contact Info) Description 06/17/2023 Telephone [facility] One Day Services [address] [place] [address] Randal Griffin MD 8765 [facility] 175 [place] [address] Cancel Procedure (Cancel Colonoscopy on 06/19) Social History Tobacco Use Types Packs/Day Years [...] on file Legal Sex Female 10:22 PM HIGHER LEVEL TEACHING ASSISTANT Gender Identity Female 09/12/2021 9:51 AM HIGHER LEVEL TEACHING ASSISTANT Sexual Orientation Straight 09/12/2021 9: 51 AM HIGHER LEVEL TEACHING ASSISTANT documented as of this encounter Progress Notes * Vianca Akhtar RN - 06/17/2023 4:36 PM CDT Pt scheduled for Colonoscopy this 06/19 w/ Dr. Griffin, previously we were awaiting kiln tender in [facility] to approve hold on her Eliquis (hx of stroke), but pt now states her had a health issue today and she had to hannah him to the hospital , states he is terminal and she will need to postpone this for at least 1 month, will forward to the office to contact pt to re-schedule her. documented in this encounter Plan of Treatment Upcoming Encounters Date Type Department Care Team (Late st Contact Info) Description 10/02/2024 11:40 AM HIGHER LEVEL TEACHING ASSISTANT Office [facility] - [facility] 3 [facility] [address] [place] [address] Johnnie Lr MD 3 [facility] [address] [place] [address] 01/04/2025 9:50 AM CDT Office Visit [facility] Family Medicine - [place] [address] [facility] [address] [place] [phone] Emily Jordan MD [address] [place] [address] documented as of this encounter Visit Diagnoses Not on filedocumented in this encounter Additional Health Concerns Assessment Noted Time PHQ-9 Depression Total Score: 1 04/03/20 23 3:30 PM CDT documented as of this encounter Care Teams Lead Designer Relationship Specialty [place] [address] [address] [place] [address] PCP - General FAMILY PRACTICE 09/29/21 06/08/24 [place] [address] [address] [facility] 70 [place] [address] RHEUMATOLOGY 09/27/20 documented as of this encounter
--- OUTSIDE RECORDS SUMMARY | 2024-08-29 09:54 | XMS_ITS | Encounter Summary ---
Author Organization [facility] Address [facility] [place] [address] [place] [address] Care Team Providers Care Lending Advisor Name Role Phone Gladis Song MD Unavailable Thi Lugo MD Primary Care Provider [phone] Encounter Details Date Type Department Care Team (Latest Contact Info) Description 06/17/2023 Scan HEALTH INFO SRVCS Scanned, Doc Med [...] on file Legal Sex Female 10:22 PM DESTINATION COORDINATOR Gender Identity Female 09/12/2021 9:51 AM DESTINATION COORDINATOR Sexual Orientation Straight 09/12/2021 9: 51 AM DESTINATION COORDINATOR documented as of this encounter Plan of Treatment Upcoming Encounters Date Type Department Care Team (Late st Contact Info) Description 10/02/2024 11:40 AM DESTINATION COORDINATOR Office Visit [facility] 3 [facility], [address] [place] [address] Johnnie Lr MD 3 [facility] [address] [place] [address] 01/04/2025 9:50 AM CDT Office Visit [facility] Family Medicine - [place] [address] [place], [place] [address] Emily Jordan MD [address] [place] [address] documented as of this encounter Visit Diagnoses Not on filedocumented in this encounter Additional Health Concerns Assessment Noted Time PHQ-9 Depression Total Score: 1 04/03/20 23 3:30 PM CDT documented as of this encounter Care Teams Lending Advisor Relationship Specialty [place] [address] [facility] [address] [place] [address] PCP - General FAMILY PRACTICE 09/29/21 06/08/24 [place] [address] [facility] 70 [place] [address] RHEUMATOLOGY 09/27/20 documented as of this encounter
--- OUTSIDE RECORDS SUMMARY | 2024-08-29 09:54 | XMS_ITS | Encounter Summary ---
Author Organization [facility] Address [address] [place] [address]. [place] [address] [place] [address] Care Team Providers Care String Studies Director Name Role Phone Gladis Song MD Unavailable Thi Lugo MD Primary Care Provider [phone] Emily Jordan MD Primary Care Provider + Reason for Referral * Surgical (Routine) - Closed Specialty Diagnoses / Procedures Referred By Valerie florian Referred To Contact GENERAL SURGERY Diagnoses Encounter for screening for malignant neoplasm of colon Procedures Case request operating room: COLONOSCOPY DIAGNOSTIC WITH/WITHOUT SPECIMEN BRUSH/WASH WITH POSSIBLE BIOPSY AND POSSIBLE POLYPECTOMY Randal Seth MD [address] [address] Phone: tel: fax: Referral ID Status Reason Start Date Expiration Date Visits Re quested Visits Authorized [id number] Closed 07/23/2023 07/23/2024 1 1 AL TREATMENT COORDINATOR Encounter Details Date Type Department Care Team (Late st Contact Info) Description 07/23/2023 Prep for Procedure [facility] General Surgery [address], [address] [place] [address] Randal Seth MD 9515 [facility] [address] [place] [address] Social History Tobacco Use Types Packs/Day Years [...] on file Legal Sex Female 10:22 PM DENTAL TREATMENT COORDINATOR Gender Identity Female 09/12/2021 9:51 AM DENTAL TREATMENT COORDINATOR Sexual Orientation Straight 09/12/2021 9: 51 AM DENTAL TREATMENT COORDINATOR documented as of this encounter Plan of Treatment Upcoming Encounters Date Type Department Care Team (Late st Contact Info) Description 10/02/2024 11:40 AM DENTAL TREATMENT COORDINATOR Office Visit [facility] Mult[facility]ialty Care - [facility] 3 [facility] [address] [place] [address] Johnnie Lr MD 3 [facility] [address] [place] [address] 01/04/2025 9:50 AM CDT Office Visit [facility] Family Medicine - [place] [address] [place] [address] Emily Jordan MD [address] [place] [address] Scheduled Orders Name Type Priority Associated Diagnoses Orde r Schedule Case request operating room: COLONOSCOPY DIAGNOSTIC WITH/WITHOUT SPECIMEN BRUSH/WASH WITH POSSIBLE BIOPSY AND POSSIBLE POLYPECTOMY Case Request Routine Encounter for screening for malignant neoplasm of colon Once for 1 Occurrences starting 07/23/2023 until 07/23/2023 documented as of this encounter Visit Diagnoses [...] documented as of this encounter Care Teams String Studies Director Relationship Specialty [place] [address] [facility] [address] [place] [address] PCP - General FAMILY PRACTICE 09/29/21 06/08/24 Emily Jordan MD [address] [place] [address] PCP - General FAMILY PRACTICE 06/09/24 [place] [address] [facility]. [address] [address] RHEUMATOLOGY 09/27/20 documented as of this encounter
--- OUTSIDE RECORDS SUMMARY | 2024-08-29 09:54 | XMS_ITS | Encounter Summary ---
Author Organization [facility] Address [address] [place] [address]. [place] [address] [place] [address] Care Team Providers Care Sausage Mixer Name Role Phone Gladis Song MD Unavailable Thi Lugo MD Primary Care Provider [phone] Reason for Visit * Reason Onset Date Comments Other 07/15/2023 Encounter Details Date Type Department Care Team (Late st Contact Info) Description 07/15/2023 Telephone [facility] General Surgery - [place] [address] [facility], [address] [place] [address] Randal Griffin MD 9515 [facility] [address] [place] [address] Other Social History Tobacco Use Types Packs/Day Years [...] on file Legal Sex Female 10:22 PM RETAIL REPRESENTATIVE Gender Identity Female 09/12/2021 9:51 AM RETAIL REPRESENTATIVE Sexual Orientation Straight 09/12/2021 9: 51 AM RETAIL REPRESENTATIVE documented as of this encounter Progress Notes * Deonte Abdalla MA - 07/22/2023 1:38 PM CST She has been rescheduled. [place] REPRESENTATIVE * Chelsey Newby RN - 07/17/2023 1:58 PM CST Called patient to schedule- no answer- LVM on mobile number to call back to schedule. Tried home number as well but no voicemail set up. [place] REPRESENTATIVE * Valerie Hackett - 07/15/2023 3:50 PM CST Patient called wanting to schedule her colonoscopy w/Dr Griffin. [place] REPRESENTATIVE documented in this encounter Plan of Treatment Upcoming Encounters Date Type Department Care Team (Late st Contact Info) Description 10/02/2024 11:40 AM RETAIL REPRESENTATIVE Office Visit [facility] Multispecialty Care - [facility] 3 [facility] [place] [address] Johnnie Lr MD 3 [facility] [address] [place] [address] 01/04/2025 9:50 AM CDT Office Visit [facility] Family Medicine - [place] [address] [place], [place] [address] Emily Jordan MD [address] [place] [address] documented as of this encounter Visit Diagnoses Not on filedocumented in this encounter Additional Health Concerns Assessment Noted Time PHQ-9 Depression Total Score: 1 04/03/20 23 3:30 PM CDT documented as of this encounter Care Teams Sausage Mixer Relationship Specialty [place] [address] [facility] [place] [address] PCP - General FAMILY PRACTICE 09/29/21 06/08/24 [place] [address] [facility]. [facility] [address] [place] [address] RHEUMATOLOGY 09/27/20 documented as of this encounter
--- OUTSIDE RECORDS SUMMARY | 2024-08-29 09:54 | XMS_ITS | Encounter Summary ---
Author Organization [facility] Address [address] [place] [address]. [place] [address] [place] [address] Care Team Providers Care Merchant Mill Utility Worker Name Role Phone Gladis Song MD Unavailable Thi Lugo MD Primary Care Provider [phone] Encounter Details Date Type Department Care Team (Late st Contact Info) Description 07/22/2023 Prep for Procedure [facility] General Surgery - [place] [address] [facility], [address] [place] [address] Randal Seth MD [address] [place] [address] Social History Tobacco Use Types Packs/Day [...] on file Legal Sex Female 10:22 PM ELECTRICAL LINESWORKER Gender Identity Female 09/12/2021 9:51 AM ELECTRICAL LINESWORKER Sexual Orientation Straight 09/12/2021 9: 51 AM ELECTRICAL LINESWORKER documented as of this encounter Plan of Treatment Upcoming Encounters Date Type Department Care Team (Late st Contact Info) Description 10/02/2024 11:40 AM ELECTRICAL LINESWORKER Office Visit [facility] Medical [facility] Multispecialty Care - [facility] 3 [facility] [place] [address] Johnnie Lr MD [address] [facility] [address] [place] [address] 01/04/2025 9:50 AM CDT Office Visit [facility] Family Medicine - [place] [address] [place], [place] [address] Emily Jordan MD [address] [place] [address] documented as of this encounter Visit Diagnoses Diagnosis History of colon polyps- Primary Personal history of colonic polyps History of colon cancer Personal history of malignant neoplasm of large intestine documented in this encounter Additional Health Concerns Assessment Noted Time PHQ-9 Depression Total Score: 1 04/03/20 23 3:30 PM CDT documented as of this encounter Care Teams Merchant Mill Utility Worker Relationship Specialty [place] [address] [facility]. [address] [place] [address] PCP - General FAMILY PRACTICE 09/29/21 06/08/24 [place] [address] [facility] [place] [address] RHEUMATOLOGY 09/27/20 documented as of this encounter
--- OUTSIDE RECORDS SUMMARY | 2024-08-29 09:54 | XMS_ITS | Encounter Summary ---
Author Organization [facility] Address [address] [place] [address]. [place], [place] [address] [place] [address] Care Team Providers Care Corporate Event Planner Name Role Phone Gladis Song MD Unavailable Thi Lugo MD Primary Care Provider [phone] Reason for Visit * Reason Onset Date Comments COVID-19 07/08/2023 Encounter Details Date Type Department Care Team (Late st Contact Info) Description 07/08/2023 Telephone [facility] Family & Internal Medicine [address] [address] Thi Lugo MD [address] [place] [address]. [address] [place] [address] COVID-19 Social History Tobacco Use Types Packs/Day Years [...] on file Legal Sex Female 10:22 PM MODERN DANCER Gender Identity Female 09/12/2021 9:51 AM MODERN DANCER Sexual Orientation Straight 09/12/2021 9: 51 AM MODERN DANCER documented as of this encounter Progress Notes * Liliam Jon RN - 07/08/2023 4:18 PM CST Noted RN DANCER * Ladonna Thomson LPN - 07/08/2023 1:02 PM CST Pt tested +Covid on 07/07/23 she is just getting S/S runny nose tickle in chest Her has it as well We reviewed CDC guide lines isolation OTC medication can use If need script must be seen or VV Pt states she is not sure she would need a antiviral or not Will call back if SOB or chest pain [phone] no request for call back RN DANCER documented in this encounter Plan of Treatment Upcoming Encounters Date Type Department Care Team (Late st Contact Info) Description 10/02/2024 11:40 AM MODERN DANCER Office Visit [facility] Multispecialty Care - [facility] 3 [facility] [address] [place] [address] Johnnie Lr MD [address] [facility] [address] [place] [address] 01/04/2025 9:50 AM CDT Office Visit [facility] Family Medicine - [place] [address] [place] [address] Emily Jordan MD [address] [place], [place] [address] documented as of this encounter Visit Diagnoses Not on filedocumented in this encounter Additional Health Concerns Assessment Noted Time PHQ-9 Depression Total Score: 1 04/03/20 3:30 PM CDT documented as of this encounter Care Teams Corporate Event Planner Relationship Specialty [place] [address] [address] [place] [address] PCP - General FAMILY PRACTICE 09/29/21 06/08/24 [place] [address] [facility]. [address] [address] RHEUMATOLOGY 09/27/20 documented as of this encounter
--- OUTSIDE RECORDS SUMMARY | 2024-08-29 09:54 | XMS_ITS | Encounter Summary ---
Author Organization [facility] Address [address] [place] [address]. [place] [address] [place] [address] Care Team Providers Care Outreach Associate Name Role Phone Gladis Song MD Unavailable Thi Lugo MD Primary Care Provider [phone] Reason for Visit * Reason Onset Date Comments Other 07/18/2023 Encounter Details Date Type Department Care Team (Late st Contact Info) Description 07/18/2023 Telephone [facility] General Surgery - [place] [address] [facility], [address] [place] [address] Randal Seth MD [address] [facility] [address] [place] [address] Other Social History Tobacco Use [...] on file Legal Sex Female 10:22 PM FIBERGLASS MACHINE OPERATOR Gender Identity Female 09/12/2021 9:51 AM FIBERGLASS MACHINE OPERATOR Sexual Orientation Straight 09/12/2021 9: 51 AM FIBERGLASS MACHINE OPERATOR documented as of this encounter Progress Notes * Deonte Abdalla MA - 07/22/2023 1:30 PM CST Patient is scheduled for 09/18/2023 [place] RGLASS MACHINE OPERATOR * Valerie Hackett - 07/18/2023 2:36 PM CST Patient called to r/s her colonoscopy. Please give patient a call back. Thanks RGLASS MACHINE OPERATOR documented in this encounter Plan of Treatment Upcoming Encounters Date Type Department Care Team (Late st Contact Info) Description 10/02/2024 11:40 AM FIBERGLASS MACHINE OPERATOR Office Visit [facility] Mult[facility]pecialty Care - [facility] 3 [facility] [address] [place] [address] Johnnie Lr MD 3 [facility] [address] [place] [address] 01/04/2025 9:50 AM CDT Office Visit [facility] Family Medicine - [place] [address] [place] [address] Emily Jordan MD [address] [place] [address] documented as of this encounter Visit Diagnoses Not on filedocumented in this encounter Additional Health Concerns Assessment Noted Time PHQ-9 Depression Total Score: 1 04/03/20 23 3:30 PM CDT documented as of this encounter Care Teams Outreach Associate Relationship Specialty [place] [address] [address] [place], [place] [address] PCP - General FAMILY PRACTICE 09/29/21 06/08/24 [place] [address] [facility] 70 [place] [address] RHEUMATOLOGY 09/27/20 documented as of this encounter
--- OUTSIDE RECORDS SUMMARY | 2024-08-29 09:54 | XMS_ITS | Encounter Summary ---
Author Organization [facility] Address [address] [place] [address]. [place], [place] [address] [place] [address] Care Team Providers Care Escort Car Driver Name Role Phone Gladis Song MD Unavailable Thi Lugo MD Primary Care Provider [phone] Reason for Visit * Reason Comments Rib Pain Fall Encounter Details Date Type Department Care Team (Late st Contact Info) Description 06/03/2023 1:20 PM CDT Office Visit [facility] Family & Internal Medicine [address] [address] Patsy aMc, PITO [address] [place] [address] Rib Pain (fall 05/30/23) Social History Tobacco Use Types Packs/Day Years [...] on file Legal Sex Female 10:22 PM AUTOMOTIVE 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 Gender Identity Female 09/12/2021 9:51 AM AUTOMOTIVE 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 Sexual Orientation Straight 09/12/2021 9: 51 AM AUTOMOTIVE 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 documented as of this encounter Last Filed Vital Signs Vital Sign Reading Time Taken Comments Blood Pressure 119/75 06/03/2023 12:20 PM CDT Pulse 77 06/03/2023 12:20 PM CDT Temperature 35.7 ??C (96.2 ??F) 06/03/2023 12:20 PM C DT Respiratory Rate 20 06/03/2023 12:20 PM CDT Oxygen Saturation 97% 06/03/2023 12:20 PM CDT Inhaled Oxygen Concentration - - Weight 65 kg (143 lb 3.2 oz) 06/03/2023 12:20 PM CDT Height 149.9 cm (4' 11 ) 06/03/2023 12:20 PM CDT Body Mass Index 28.92 06/03/2023 12:20 PM CDT documented in this encounter Patient Instructions * Attachments The following attachments cannot be sent through Care Everywhere. * Preventing Falls in the Older Adult ([place]) documented in this encounter Progress Notes * PITO Perez - 06/03/2023 1:20 PM CDT Images from the original note were not included. _ Reason for Visit: Rib Pain (Fall last 05/30/23) History of Present Illness: RADHA Orantes is a 72-year-old female here for evaluation thru the walk in clinic for evaluation of pain that she is having on the right side of her body sincefalling on 928. She states that she tripped in her house. She sort of slid when she landed. She washaving pain in her right hip and wrist but that has since resolved. Her main complaint is she stillhaving lateral rib pain. He is worried that she will develop pneumonia. She does not have a spirometer at home. She is not coughing or running fever at this time. She does have pain with a deep inhalation. She also has pain with certain movements. She denies shortness of breath. ROS: Review of Systems Feeling well. Denies headaches, vision or hearing problems. No recent colds or flus, denies symptoms suggestive of allergies. Denies dysphagia, heartburn or indigestion. No dyspnea or chest pain on exertion. No nausea, abdominal pain, change in bowel habits, black or bloody stools. No urinary symptoms. No muscle or joint aches or pains. No foot or leg edema. No numbness, tingling,or weakness. No anxiety or depressive symptoms, Sleeping well. No significant weight gain or loss. No fatigue. Medications: No outpatient medications have been marked as taking for the 06/03/23 encounter (Office Visit) with PITO Perez. Review of patient's allergies indicates: Allergen Reactions Latex Rash Sulfa Antibiotics Swelling Levofloxacin Headache and Nausea Only Nitrofurantoin Headache Past Medical History: Diagnosis Date Anxiety Arthritis Asthma Hypertension Lupus (HHS/HCC) ([facility]) Sleep apnea Stroke (HHS/HCC) ([facility]) Past Surgical History: Procedure Laterality Date APPENDECTOMY SECTION HC TRIGGER FINGER RELEASE HYSTERECTOMY TONSILLECTOMY Social History Tobacco Use Smoking status: Never Passive exposure: Never Smokeless tobacco: Never Vaping Use Vaping Use: Never used Substance Use Topics Alcohol use: Yes Comment: up 2 glasses of wine/month Drug use: Never Family History Problem Relation Name Age of Onset Heart Disease Mother TB Father Other (lungs) Father Family Status Relation Name Status Mother Father Fall Risk One or more falls in the last year:: Yes Feels unsteady when walking:: Yes Worried about falling:: Yes Physical Exam Constitutional: Patient is oriented to person, place, and time. Patient appears well-developed and well-nourished. Head: Normocephalic. Eyes: Pupils are equal, round, and reactive to light. Neck: No JVD present. No thyromegaly present. Cardiovascular: Normal rate, regular rhythm, normal heart sounds and intact distal pulses. No murmur heard. Pulmonary/Chest: No respiratory distress. Patient has no wheezes. Patient has no rales. Patient exhibits no right lateral aspect of her chest wall tenderness. Abdominal: Patient exhibits no distension and no mass. There is no suprapubic tenderness. There is no rebound and no guarding. Musculoskeletal: Normal range of motion. Patient exhibits no edema, tenderness or deformity. Lymphadenopathy: Patient has no cervical adenopathy. Neurological: Patient is alert and oriented to person, place, and time. Skin: No rash noted. No erythema. Psychiatric: Patient has a normal mood and affect. The behavior is normal. Thought content normal. No data to display Vitals: 06/03/23 1220 Patient Position: Sitting BP Location: Right arm BP: 119/75 Pulse: 77 Body mass index is 28.92 kg/m??. Assessment and Plan Encounter Diagnose(s) ICD-10-CM SNOMED CT(R) 1. Rib pain on right side R07.81 RIB PAIN XR RIBS RT+PA CHEST 2. Fall, initial encounter W19.XXXA FALL We will send out a spirometer to help her make sure that she is taking deep breaths that she is required to keep from getting pneumonia or bronchitis. We will obtain x-rays to stress fracture she is agreeable. Orders Placed This Encounter XR RIBS RT+PA CHEST Patient was told that if symptoms do not improve to utilize the emergency room, call their PCP, or follow back up with the walk-in clinic. If patient needs any additional time off not discussed at this office visit they will need to contact the PCP or be seen in the walk in clinic. Patient should follow annual wellness exams recommended for age and sex of patient. Items to consider but not limited included yearly annual fasting labs, colonscopy or cologuard when indicated. PSA and prostate for males. Mammogram and female exam for females, Portions of this note were dictated using Anulex speech recognition software. Occasional wrong wordor sound-alike substitutions may have occurred due to the inherent limitations of voice recognition software. Please read the chart carefully and recognize, using context, where the substitutions may have occurred. Patsy Mac PA-C evaluated and Dr. Thi Lugo reviewed and agrees with plan. Cosigned by Thi Lugo MD at 06/04/2023 3:20 PM CDT documented in this encounter Plan of Treatment Upcoming Encounters Date Type Department Care Team (Late st Contact Info) Description 10/02/2024 11:40 AM AUTOMOTIVE 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 Office Visit [facility] Multispecialty Care - [address] [place] [id number] Johnnie Lr MD 3 [facility] PARTH [facility] [place] [address] 01/04/2025 9:50 AM CDT Office Visit [facility] Family Medicine - [place] [address] [place] [address] Emily Jordan MD [address] [place], [place] [id number] documented as of this encounter Results * XR RIBS RT+PA CHEST (06/03/2023 1:26 PM CDT) Anatomical Region Laterality Modality Chest Radiographic Ashley ging 06/06/2023 8:51 AM CDT Impressions 06/06/2023 8:54 AM CDT IMPRESSION: 1. ??No acute osseous abnormality. Ordered By: PATSY MAC Interpreted By: Stef Paul MD, 06/06/2023 8:51 AM Narrative 06/06/2023 8:54 AM CDT Examination: 4 ??views right ribs with PA Chest Exam Date/Time: 06/03/2023 1:09 PM Reason For Exam: ??rib pain ? Comparison: 07/16/2022 Technique: 4 ??views of the right ribs were obtained. ??PA view of chest obtained as well. Findings: No acute fracture or dislocation. No destructive osseous lytic or sclerotic lesions. Visualized right lung is clear. No pleural effusion is seen. Heart size is within normal limits. Calcification of the aorta is consistent with atherosclerotic change. Procedure Note Stef Paul MD - 06/06/2023 Examination: 4 views right ribs with PA Chest Exam Date/Time: 06/03/2023 1:09 PM Reason For Exam: rib pain Comparison: 07/16/2022 Technique: 4 views of the right ribs were obtained. PA view of chestobtained as well. Findings: No acute fracture or dislocation. No destructive osseous lyticor sclerotic lesions. Visualized right lung is clear. No pleural effusionis seen. Heart size is within normal limits. Calcification of the aorta isconsistent with atherosclerotic change. IMPRESSION: 1. No acute osseous abnormality. Ordered By: PATSY MAC Interpreted By: Stef Paul MD, 06/06/2023 8:51 AM Patsy [facility] Final Result documented in this encounter Visit Diagnoses Diagnosis Rib pain on right side- Primary Chest pain, unspecified Fall, initial encounter Rib pain on right side Chest pain, unspecified documented in this encounter Additional Health Concerns Assessment Noted Time PHQ-9 Depression Total Score: 1 04/03/20 23 3:30 PM CDT documented as of this encounter Care Teams Escort Car Driver Relationship Specialty [place] [address] [address] [place] [address] PCP - General FAMILY PRACTICE 09/29/21 06/08/24 [place] [address] [facility]. [facility] [address] [place] [address] RHEUMATOLOGY 09/27/20 documented as of this encounter
--- OUTSIDE RECORDS SUMMARY | 2024-08-29 09:54 | XMS_ITS | Encounter Summary ---
Author Organization [facility] Address [address] [place] [address]. [place] [address] [place] [address] Care Team Providers Care Bus Operator Name Role Phone Gladis Song MD Unavailable Thi Lugo MD Primary Care Provider [phone] Encounter Details Date Type Department Care Team (Latest Contact Info) Description 06/03/2023 12:45 PM CDT - 06/03/2023 11:59 PM T Hospital Encounter [facility] [address] [place] [address] [place] [address] [place], [place] [id number] Discharge Disposition: Home or Self Care (Routine [...] on file Legal Sex Female 10:22 PM TRAPEZE PERFORMER Gender Identity Female 09/12/2021 9:51 AM TRAPEZE PERFORMER Sexual Orientation Straight 09/12/2021 9: 51 AM TRAPEZE PERFORMER documented as of this encounter Medications at Time of Discharge atorvastatin 80 MG tablet TAKE 1 TABLET BY MOUTH EVERY DAY 9 Calcium Carbonate Antacid (CALCIUM CARBONATE OR) Take 600 mg by mouth daily. ELIQUIS 5 MG tablet Take 1 tablet (5 mg total) by mouth 2 (two) times daily. 2 isosorbide mononitrate ER (IMDUR) 30 MG 24 hr tabletIndications :Essential hypertension Take 1 tablet (30 mg total) by mouth daily. 30 tablet 3 nitroglycerin 0.4 MG SL tablet As needed 8 vitamin C 1000 MG tablet Take 1 tablet (1,000 mg total) by mouth daily. vitamin D3, cholecalciferol, 125 mcg capsule 1 capsule (125 mcg total) daily. 5 albuterol sulfate HFA 108 (90 Base) MCG/ACT inhalerIndication s:Shortness of breath Inhale 2 puffs into the lungs every 4 (four) hours as needed for Wheezing. 18 g 3 3 07/30/20 23 B-D 3CC LUER-KAILASH SYR 22GX1 22G X 1 3 ML Misc 0 02/24/20 24 bisoprolol (ZEBETA) 5 MG tablet Take 1 tablet (5 mg total) by mouth daily. 2 06/09/20 24 dicyclomine (BENTYL) 10 MG capsule TAKE 1 CAPSULE (10 MG TOTAL) BY MOUTH 2 (TWO) TIMES DAILY FOR 30 DAYS. 2 06/17/20 23 fluconazole (DIFLUCAN) 150 MG tablet Take 1 tablet (150 mg total) by mouth once. 3 05/22/20 24 fluticasone furoate-vilantero l (BREO ELLIPTA) 100-25 MCG/ACT inhalerIndication s:Mild persistent asthma without complication (HHS/HCC) Inhale 1 puff into the lungs daily. Rinse and spit after use 180 each 3 3 03/25/20 24 folic acid (FOLVITE) 1 MG tabletIndications :Rheumatoid arthritis without rheumatoid factor, multiple sites (CMS/HCC HHS/HCC) TAKE 1 TABLET BY MOUTH EVERY DAY 90 tablet 3 3 06/09/20 24 furosemide (LASIX) 20 MG tablet Take 1 tablet (20 mg total) by mouth daily. 2 06/09/20 24 hydroCHLOROthiazi de (HYDRODIURIL) 25 MG tablet 06/09/20 24 hydroxychloroquin e (PLAQUENIL) 200 MG tablet 06/17/20 ibuprofen (MOTRIN) 200 MG tablet Take 2 tablets (400 mg total) by mouth every 6 (six) hours as needed for Pain. 06/17/20 23 ibuprofen (MOTRIN) 400 MG tablet Take 1 tablet (400 mg total) by mouth every 6 (six) hours as needed for Pain. 06/17/20 methotrexate 2.5 MG tablet 1 06/09/20 24 metoprolol succinate ER (TOPROL-XL) 50 MG 24 hr tablet 06/09/20 24 montelukast (SINGULAIR) 10 MG tabletIndications :Seasonal allergies TAKE 1 TABLET BY MOUTH EVERY DAY EVERY NIGHT Strength: 10 mg 90 tablet 3 3 09/19/19 24 ondansetron (ZOFRAN) 4 MG tabletIndications :Heartburn Take 1 tablet (4 mg total) by mouth every 8 (eight) hours as needed for Nausea. 20 tablet 3 08/23/20 23 pantoprazole EC (PROTONIX) 40 MG tabletIndications :Gastroesophageal reflux disease without esophagitis Take 1 tablet (40 mg total) by mouth daily. 90 tablet 1 3 07/30/20 23 PARoxetine (PAXIL) 20 MG tabletIndications :Anxiety state Take 2 tablets (40 mg total) by mouth daily. 180 tablet 1 3 12/02/19 24 potassium chloride CR 20 MEQ tablet TAKE 2 TABLETS EVERY MORNING AND 2 TABLETS EVERY EVENING 0 06/09/20 24 Respiratory Therapy Supplies (ONE FLOW SPIROMETER) KitIndications:Ri b pain on right side,Fall, initial encounter 1. [...] about 10 breaths every hour. 1 kit 3 02/24/20 24 Sodium Sulfate-Mag Sulfate-KCl (SUTAB) 3475-451-213 MG TabIndications:Di arrhea,History of colon polyps,Pain in the abdomen Take 1 tablet by mouth see administration instructions. 24 tablet 3 07/23/20 23 triamcinolone (KENALOG) 0.1 % creamIndications: Allergic dermatitis Apply topically 2 (two) times daily. 15 g 1 3 09/19/19 24 documented as of this encounter Plan of Treatment Upcoming Encounters Date Type Department Care Team (Late st Contact Info) Description 10/02/2024 11:40 AM TRAPEZE PERFORMER Office Visit [facility] Multispecialty Care - [facility] [address] [facility] [place] [address] Johnnie Lr MD 3 [facility] [address] [place] [address] 01/04/2025 9:50 AM CDT Office Visit [facility] Family Medicine - [place] [address] [address] Emily Jordan MD [address] [place] [address] documented as of this encounter Procedures Procedure Name Priority Date/Time Associated Diagnosis Comments XR RIBS RT+PA CHEST Routine 06/03/2023 1 :26 PM CDT Rib pain on right side documented in this encounter Results * XR RIBS RT+PA [...] By: Stef Paul MD, 06/06/2023 8:51 AM us Patsy [facility] Final Result documented in this encounter Visit Diagnoses Diagnosis Rib pain on right side Chest pain, unspecified documented in this encounter Additional Health Concerns Assessment Noted Time PHQ-9 Depression Total Score: 1 04/03/20 23 3:30 PM CDT documented as of this encounter Care Teams Bus Operator Relationship Specialty [place] [address] [facility]. [address] [place] [address] PCP - General FAMILY PRACTICE 09/29/21 06/08/24 [place] [address] [facility]. [address] [address] RHEUMATOLOGY 09/27/20 documented as of this encounter
--- OUTSIDE RECORDS SUMMARY | 2024-08-29 09:54 | XMS_ITS | Encounter Summary ---
Author Organization [facility] Address [facility] [facility] 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 Gender Identity Female 09/12/2021 9:51 AM MACHINE REPAIRER MAINTENANCE Sexual Orientation Straight 09/12/2021 9: 51 AM MACHINE REPAIRER MAINTENANCE documented as of this encounter Plan of Treatment Upcoming Encounters Date Type Department Care Team (Late st Contact Info) Description 10/02/2024 11:40 AM MACHINE REPAIRER MAINTENANCE Office Visit [facility] Multispecialty Care - [address], [address] [place] [address] Johnnie Lr MD 3 [facility] [address] [place] [address] 01/04/2025 9:50 AM CDT Office Visit [facility] Family Medicine - [place] [address] [place] [address] Emily Jordan MD [address] [place] [address] documented as of this encounter Visit Diagnoses Not on filedocumented in this encounter Additional Health Concerns Assessment Noted Time PHQ-9 Depression Total Score: 1 04/03/20 23 3:30 PM CDT documented as of this encounter Care Teams Supervisor Drying Relationship Specialty [place] [address] [facility] [place] [address] PCP - General FAMILY PRACTICE 09/29/21 06/08/24 [place] [address] [facility]. [address] [place] [address] RHEUMATOLOGY 09/27/20 documented as of this encounter
--- OUTSIDE RECORDS SUMMARY | 2024-08-29 09:55 | XMS_ITS | Encounter Summary ---
Author Organization [facility] Address [address] [place] [address]. [place], [place] [address] [place] [address] Care Team Providers Care Wine And Spirits Clerk Name Role Phone Gladis Song MD Unavailable Thi Lugo MD Primary Care Provider [phone] Reason for Visit * Reason Comments Lab Results Follow up blood work Encounter Details Date Type Department Care Team (Late st Contact Info) Description 02/22/2023 7:40 AM CDT Office Visit [facility] Medical Group Family & Internal Medicine [address] [address] Thi Lugo MD [address] [place] [address]. [address] [place] [address] Lab Results (Follow up blood work) Social History Tobacco Use Types Packs/Day Years Used Date Smoking Tobacco: Never Passive Smoke Exposure: Never Smokeless Tobacco: Never Tobacco Cessation:Counseling Given: No Alcohol Use Standard Drinks/Week Comments Yes 0 (1 standard drink = 0.6 oz pur e alcohol) up 2 glasses of wine/month PHQ-2 Answer Date Recorded Patient Health Questionnaire-2 Score 0 02/22/2023 Comments No Sex and Gender Information Value Date Recorded Sex Assigned at Not on file Legal Sex Female 10:22 PM WATER JET LOOM FIXER Gender Identity Female 09/12/2021 9:51 AM WATER JET LOOM FIXER Sexual Orientation Straight 09/12/2021 9: 51 AM WATER JET LOOM FIXER documented as of this encounter Last Filed Vital Signs Vital Sign Reading Time Taken Comments Blood Pressure 130/80 02/22/2023 7:32 AM CDT Pulse 68 02/22/2023 7:32 AM CDT Temperature 37 ??C (98.6 ??F) 02/22/2023 7:32 AM CDT Respiratory Rate 20 02/22/2023 7:32 AM CDT Oxygen Saturation 95% 02/22/2023 7:32 AM CDT Inhaled Oxygen Concentration - - Weight 64 kg (141 lb) 02/22/2023 7:32 AM CDT Height 149.9 cm (4' 11 ) 02/22/2023 7:32 AM CDT Body Mass Index 28.48 02/22/2023 7:32 AM CDT documented in this encounter Progress Notes * Violet Mena MA - 02/22/2023 7:40 AM CDTAddended by: VIOLET MENA on: 02/22/2023 08:12 AM Modules accepted: Orders * Violet Mena MA - 02/22/2023 7:40 AM CDTAddended by: VIOLET MENA on: 02/22/2023 08:18 AM Modules accepted: Orders * Thi Lugo MD - 02/22/2023 7:40 AM CDT Reason for Visit: Lab Results (Follow up blood work) History of Present Illness: HPI Miss Chio Orantes is a pleasant 72-year-old female with complex past and current medical history butnot limited to asthma, Prediabetes, CVA and paroxysmal was on Eliquis: now aspirin only, CAD, heartfailure preserved ejection fraction, SLE- on methotrexate for SLE, prediabetes, peripheral neuropathy, chronic GERD, restless legs and hypertension was seen in office today for 3-month follow-up appointment and discuss labs. Patient had some recent labs done end of December. Advised her CBC and metabolic panel were normal. Blood test indeterminate for lupus. Noted patient to see rheumatology. Mood- states good mostly. She takes care of her grandkids, gets on edge. 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 Sleep- good. States she has leg cramps. States she is tolerating Paxil without side effects. Medication helps her. GERD is well controlled on daily PPI. Currently not taking Carafate anymore. Recent Uti has resolved. Had abx in December 2022. She HAS VAGINAL ITCHING,denies vaginal discharge. She has had intermittent incontinence. Per last office note: Specialists 1. Cardiology at [facility]. 2. Rheum Dr[address] Song 3. Neurology for [...] and vomiting. Endocrine: Negative for polyuria. Genitourinary: Positive for bladder incontinence. Negative for dysuria, hematuria, pelvic pain, vaginal bleeding, vaginal discharge and vaginal pain. Musculoskeletal: Negative for arthralgias. Neurological: Negative for dizziness, syncope and headaches. Psychiatric/Behavioral: Positive for agitation. Negative for behavioral problems, depression and sleep disturbance. The patient is nervous/anxious. Medications: Current Outpatient Medications: albuterol sulfate HFA [...] 1 tablet (150 mg total) by mouth once for 1 dose., Disp:1 tablet, Rfl: 0 Fluticasone Furoate (ARNUITY ELLIPTA) 100 MCG/ACT AEROSOL POWDER, BREATH ACTIVATED, Inhale 1 puff into the lungs daily. Rinse and spit after, Disp: 90 each, Rfl: 3 folic acid (FOLVITE) 1 MG tablet, TAKE 1 TABLET BY MOUTH EVERY DAY, Disp: 90 tablet, Rfl: 3 furosemide (LASIX) 20 MG tablet, Take 1 tablet (20 mg total) by mouth daily., Disp: , Rfl: isosorbide mononitrate ER (IMDUR) [...] Diagnosis Date Anxiety Arthritis Asthma Hypertension Lupus (CMS/HCC) Sleep apnea Stroke (CMS/HCC) Past Surgical History: Procedure Laterality Date APPENDECTOMY SECTION HC TRIGGER FINGER RELEASE HYSTERECTOMY TONSILLECTOMY Social History Socioeconomic History Marital status: [...] edema. Skin: General: Skin is warm. Neurological: General: No focal deficit present. Mental Status: She is alert and oriented to person, place, and time. Psychiatric: Mood and Affect: Mood normal. Mood is not anxious or depressed. Affect is labile. Affect is not flat. Speech: Speech is tangential. Behavior: Behavior is slowed. Behavior is cooperative. Cognition and Memory: Cognition normal. Judgment: Judgment normal. Filed Vitals: 02/22/23 0732 BP: 130/80 Pulse: 68 Resp: 20 Temp: 98.6 ??F (37 ??C) TempSrc: Temporal SpO2: 95% Weight: 64 kg (141 lb) Height: 4' 11 (1.499 m) Diagnoses/Impression: 1. Prediabetes 2. Anxiety state PARoxetine (PAXIL) 20 MG tablet DISCONTINUED: PARoxetine (PAXIL) 20 MG tablet 3. Gastroesophageal reflux disease without esophagitis pantoprazole EC (PROTONIX) 40 MG tablet 4. Acute vaginitis fluconazole (DIFLUCAN) 150 MG tablet 5. Allergic dermatitis triamcinolone (KENALOG) 0.1 % cream 6. Dyslipidemia 7. Urinary incontinence, unspecified type URINALYSIS AUTO DIP Recommendations and Plan: 1. Anxiety state Chronic. Uncontrolled. . Increase paxil. Discussed meditation , yoga, radha chi and relaxing techniques - PARoxetine (PAXIL) 20 MG tablet; Take 2 tablets (40 mg total) by mouth daily. Dispense: 180 tablet; Refill: 1 2. Gastroesophageal reflux disease without esophagitis Chronic, well controlled - pantoprazole EC (PROTONIX) 40 MG tablet; Take 1 tablet (40 mg total) by mouth daily. Dispense: 90tablet; Refill: 1 3. Prediabetes Last A1c was 5.9 in December. Avoid sugars. Discussed low-carb diet. Regular exercise 4. Acute vaginitis - fluconazole (DIFLUCAN) 150 MG tablet; Take 1 tablet (150 mg total) by mouth once for 1 dose. Dispense: 1 tablet; Refill: 0 5. Allergic dermatitis Chronic, she will see derm soon. Continue PRN kenalog - triamcinolone (KENALOG) 0.1 % cream; Apply topically 2 (two) times daily. Dispense: 15 g; Refill:1 Dyslipidemia- Chronic. Stable. Lipid panel well-controlled in December. Continue statin. Reviewed cardio consult note x December 2022- afibb on eliquis, continue high dose statin. Advised CTA Reviewed neuro note aug 2022- was to fu in 6 months Also reviewed neuro note x oct 2022. FU in April as scheduled. She voiced understanding and agrees with plan. All questions answered Orders Placed This Encounter URINALYSIS AUTO DIP DISCONTD: PARoxetine (PAXIL) 20 MG tablet pantoprazole EC (PROTONIX) 40 MG tablet fluconazole (DIFLUCAN) 150 MG tablet PARoxetine (PAXIL) 20 MG tablet triamcinolone (KENALOG) 0.1 % cream Reviewed and updated this visit by provider: Thi Lugo MD Referring Provider: No ref. provider found PCP: Thi Lugo MD documented in this encounter Plan of Treatment Upcoming Encounters Date Type Department Care Team (Late st Contact Info) Description 10/02/2024 11:40 AM WATER JET LOOM FIXER Office Visit [facility] Multispecialty Care - [facility] [address] [place] [address] Johnnie Lr MD [address] [place] [address] 01/04/2025 9:50 AM CDT Office Visit [facility] Family Medicine [facility] [address] [place], [place] [address] Emily Jordan MD [address] [place] [address] documented as of this encounter Procedures Procedure Name Priority Date/Time Associated Diagnosis Comments URINALYSIS AUTO DIP Routine 02/22/2023 Urinary incontinence, unspecified type documented in this encounter Results * CULTURE URINE (02/22/2023 8:18 AM CDT) SPEC DESCRIPTION URINE CLEAN CATCH 02/22/2023 1:36 PM CDT [facility] SPECIAL REQUESTS NO SPECIAL REQUEST 02/22/2023 1:36 PM CDT [facility] CULTURE RESULT NO GROWTH 2 DAYS 02/24/2023 8:58 AM CDT [facility] URINE SPECIMEN OBTAINED BY CLEAN CATCH PROCEDURE / Unknown 02/22/2023 8:18 AM CDT 02/22/2023 1:37 PM CDT us Thi Lugo MD MICROBIOLOGY - GENERAL ORDERAB LES Final Result [facility] [address] [place] [address], [place] [phone] [facility] [address] [place] [address], [place] [phone] * (ABNORMAL) URINALYSIS AUTO DIP (02/22/2023) COLOR (U) YELLOW YELLOW [id number], [place] TRANSPARENCY CLEAR CLEAR [id number], [place] GLUCOSE (U) NEGATIVE NEGATIVE MG/DL [id number], [facility] BILIRUBIN (U) NEGATIVE NEGATIVE MG-[address], [facility] KETONES MG/DL (U) NEGATIVE NEGATIVE MG/DL [id number], [facility] SPECIFIC GRAVITY (U) 1.025 1.001 - 1.035 [id number], [facility] BLOOD (U) TRACE (Hemolyzed)( A) NEGATIVE [id number], [place] U PH 6.0 5.0 - 9.0 MG-[address], [facility] PROTEIN (U) NEGATIVE NEGATIVE mg/dL [id number], [facility] UROBILINOGEN 0.2 0.2 - 1.0 EU/dL = mg/dL [id number], [facility] NITRITES NEGATIVE NEGATIVE MG/DL [id number], [facility] LEUKOCYTES (U) TRACE(A) NEGATIVE MG-[address], [facility] URINE SPECIMEN OBTAINED BY CLEAN CATCH PROCEDURE / Unknown 02/22/2023 Thi Lugo MD URINE ORDERABLES Final Result [id number], [place] [address] [place] [address], [place] [phone] documented in this encounter Visit Diagnoses Diagnosis Prediabetes- Primary Other abnormal glucose Anxiety state Anxiety state, unspecified Gastroesophageal reflux disease without esophagitis Esophageal reflux Acute vaginitis Vaginitis and vulvovaginitis, unspecified Allergic dermatitis Contact dermatitis and other eczema, due to unspecified cause Dyslipidemia Other and unspecified hyperlipidemia Urinary incontinence, unspecified type documented in this encounter Additional Health Concerns Assessment Noted Time PHQ-9 Depression Total Score: 2 05/04/20 22 9:39 AM CDT documented as of this encounter Care Teams Wine And Spirits Clerk Relationship Specialty [place] [address] [facility] [place] [address] PCP - General FAMILY PRACTICE 09/29/21 06/08/24 [place] [address] [facility]. [address] [address] RHEUMATOLOGY 09/27/20 documented as of this encounter
--- OUTSIDE RECORDS SUMMARY | 2024-08-29 09:55 | XMS_ITS | Encounter Summary ---
Author Organization [facility] Address [facility] [place] [address] [place] [address] Care Team Providers Care Folder Tier Name Role Phone Gladis Song MD Unavailable Thi Lugo MD Primary Care Provider [phone] Encounter Details Date Type Department Care Team (Latest Contact Info) Description 03/14/2023 Travel Social History Tobacco Use Types Packs/Day [...] on file Legal Sex Female 10:22 PM FLIGHT OPERATIONS MANAGER Gender Identity Female 09/12/2021 9:51 AM FLIGHT OPERATIONS MANAGER Sexual Orientation Straight 09/12/2021 9: 51 AM FLIGHT OPERATIONS MANAGER documented as of this encounter Plan of Treatment Upcoming Encounters Date Type Department Care Team (Late st Contact Info) Description 10/02/2024 11:40 AM FLIGHT OPERATIONS MANAGER Office Visit [facility] Medical [facility] Multispecialty Care - [address], [address] [place] [address] Johnnie Lr MD [address] [facility] [address] [place] [address] 01/04/2025 9:50 AM CDT Office Visit [facility] Medical [facility] Family Medicine - [place] [address] [place] [address] Emily Jordan MD [address] [place] [address] documented as of this encounter Visit Diagnoses Not on filedocumented in this encounter Additional Health Concerns Assessment Noted Time PHQ-9 Depression Total Score: 2 05/04/20 22 9:39 AM CDT documented as of this encounter Care Teams Folder Tier Relationship Specialty [place] [address] [facility]. [address] [place] [address] PCP - General FAMILY PRACTICE 09/29/21 06/08/24 [place] [address] [facility]. [address] [place] [address] RHEUMATOLOGY 09/27/20 documented as of this encounter
--- OUTSIDE RECORDS SUMMARY | 2024-08-29 09:55 | XMS_ITS | Encounter Summary ---
Author Organization [facility] Address [address] [place] [address]. [place], [place] [address] [place] [address] Care Team Providers Care Manager Of Clinical Name Role Phone Gladis Song MD Unavailable Thi Lugo MD Primary Care Provider [phone] Reason for Visit * Reason Onset Date Comments Results 01/01/2023 Encounter Details Date Type Department Care Team (Late st Contact Info) Description 01/01/2023 Telephone [facility] Medical Group Family & Internal Medicine [address] [address] Thi Lugo MD [address] [place] [address]. [address] [place] [address] Results Social History Tobacco Use Types Packs/Day Years Used Date Smoking Tobacco: Never Smokeless Tobacco: Never Alcohol Use Standard Drinks/Week Comments Yes 0 (1 standard drink = 0.6 oz pur e alcohol) up 2 glasses of wine/month PHQ-2 Answer Date Recorded Patient Health Questionnaire-2 Score 0 09/06/2022 Comments No Sex and Gender Information Value Date Recorded Sex Assigned at Not on file Legal Sex Female 10:22 PM FRIT COATER Gender Identity Female 09/12/2021 9:51 AM FRIT COATER Sexual Orientation Straight 09/12/2021 9: 51 AM FRIT COATER documented as of this encounter Progress Notes * Liliam M Dontrell, RN - 01/03/2023 2:56 PM CDT Called and spoke with patient and advised to avoid sugars and low carb diet as well as exercise. Patient voiced understanding. * Ladonna Thomson LPN - 01/03/2023 1:57 PM CDT Pt called back read message word for work V/U she wants to know if anything can be done about that RN with another pt Pt request call back * Liliam Jon RN - 01/03/2023 10:31 AM CDT Left message for patient to return call. * Liliam Jon RN - 01/01/2023 10:50 AM CDT Left message for patient to return call. Dr Lugo reviewed blood work from 12/24/22 and states thather A1C is 5.9 which is prediabetes as known. documented in this encounter Plan of Treatment Upcoming Encounters Date Type Department Care Team (Late st Contact Info) Description 10/02/2024 11:40 AM FRIT COATER Office Visit [facility] Multispecialty Care - [facility] [address] [facility] [place] [id number] Johnnie Lr MD [address] [facility] [address] [place] [address] 01/04/2025 9:50 AM CDT Office Visit [facility] Family Medicine - [place] [address] [place] [address] Emily Jordan MD [address] [place] [address] documented as of this encounter Visit Diagnoses Not on filedocumented in this encounter Additional Health Concerns Assessment Noted Time PHQ-9 Depression Total Score: 2 05/04/20 22 9:39 AM CDT documented as of this encounter Care Teams Manager Of Clinical Relationship Specialty [place] [address] [facility] [place] [address] PCP - General FAMILY PRACTICE 09/29/21 06/08/24 [place] [address] [facility]. [address] [address] RHEUMATOLOGY 09/27/20 documented as of this encounter
--- OUTSIDE RECORDS SUMMARY | 2024-08-29 09:55 | XMS_ITS | Encounter Summary ---
Author Organization [facility] Address [address] [place] [address]. [place], [place] [id number] [place] [id number] Care Team Providers Care Dynamo Repairer Name Role Phone Gladis Song MD Unavailable Zainab Lugo MD Primary Care Provider [phone] Reason for Visit * Reason Comments Hyperlipidemia 6 month f/u Encounter Details Date Type Department Care Team (Latest Contact Info) Description 10/19/2022 10:00 AM SURVEY PARTY CHIEF Office Visit [facility] Family & Internal Medicine [address] [address] Zainab Lugo MD [address] [place] [address] [place] [address] Hyperlipidemia (6 month f/u) Social History Tobacco Use Types Packs/Day Years Used Date Smoking Tobacco: Never Smokeless Tobacco: Never Tobacco Cessation:Counseling Given: No Alcohol Use Standard Drinks/Week Comments Yes 0 (1 standard drink = 0.6 oz pur e alcohol) up 2 glasses of wine/month PHQ-2 Answer Date Recorded Patient Health Questionnaire-2 Score 0 09/06/2022 Comments No Sex and Gender Information Value Date Recorded Sex Assigned at Not on file Legal Sex Female 10:22 PM SURVEY PARTY CHIEF Gender Identity Female 09/12/2021 9:51 AM SURVEY PARTY CHIEF Sexual Orientation Straight 09/12/2021 9: 51 AM SURVEY PARTY CHIEF COVID-19 Exposure Response Date Recorded In the last 10 days, have yo u been in contact with someone who was confirmed or suspected to have Coronavirus/COVID-19? No / Unsure 10/19/2022 9:51 AM SURVEY PARTY CHIEF documented as of this encounter Last Filed Vital Signs Vital Sign Reading Time Taken Comments Blood Pressure 136/78 10/19/2022 10:43 AM SURVEY PARTY CHIEF Pulse 71 10/19/2022 9:56 AM SURVEY PARTY CHIEF Temperature 36.9 ??C (98.4 ??F) 10/19/2022 9:56 AM CS T Respiratory Rate 20 10/19/2022 9:56 AM SURVEY PARTY CHIEF Oxygen Saturation 98% 10/19/2022 9:56 AM SURVEY PARTY CHIEF Inhaled Oxygen Concentration - - Weight 65.3 kg (144 lb) 10/19/2022 9:56 AM SURVEY PARTY CHIEF Height 149.9 cm (4' 11 ) 10/19/2022 9:56 AM SURVEY PARTY CHIEF Body Mass Index 29.08 10/19/2022 9:56 AM SURVEY PARTY CHIEF documented in this encounter Patient Instructions * Patient Instructions* Zainab Lugo MD - 10/19/2022 10:00 AM SURVEY PARTY CHIEF Carafate is to be taken short courses as needed. Stop now. EY PARTY CHIEF documented in this encounter Progress Notes * Zainab Lugo MD - 10/19/2022 10:00 AM CSTAddended by: ZAINAB LUGO on: 11/12/2022 05:53 AM Modules accepted: Orders * Zainab Lugo MD - 10/19/2022 10:00 AM CST Reason for Visit: Hyperlipidemia (6 month f/u) History of Present Illness: HPI Miss Chio Orantes??is a??pleasant??72-year-old female with complex past and current medical history but not limited to asthma,??CVA and paroxysmalwas on??Eliquis: now aspirin only,??heart failure preserved ejection fraction, on methotrexate for SLE, prediabetes, chronic GERD,??restless legs and hypertension Was seen today for 6 month follow up appointment. Her is still sick and continues to be on V antibiotics for about 1 year now. 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 Mood- changes, some days are frustrating. Continues to take Paxil. Medication helps. Denies side effects. Sleep- good Complains of right sided hip pain, she is doing water aerobics. Continues to have leg cramps. Has nerve study. Recent episode of chest pain , nitro helped and was seen at [facility] .No chest pain today.Has apt with cardio in December. Was started on imdur and lasix increased per cardiology. She has beenfeeling better since. Hypertension (Follow-Up): The patient presents for follow-up of primary hypertension. The patient states she has been stable with his blood pressure control since the last visit. she has no significant interval events. Symptoms: The patient is currently asymptomatic. Associated symptoms include no headache, no focal neurologic deficits and no memory loss. Home monitoring: The patient checks her blood pressure sporadically.. Medications: the patient is adherent with her medication regimen. she denies medication side effects.. Per last office note: Specialists 1. Cardiology at [place]. 2. Rheum Dr. Song: Positive [place] free light chain. 3. Neurology for memory loss and Hx of stroke 4. Pulmonology: asthma 5 eye doctor. 6. PRN dermatology No other concerns for today ROS: Review of Systems Constitutional: Negative for activity change, appetite change, chills and fever. HENT: Negative for congestion, ear discharge, facial swelling, hearing loss, nosebleeds, postnasal drip, rhinorrhea and sinus pressure. Eyes: Negative for visual disturbance. Respiratory: Positive for shortness of breath. Negative for cough and wheezing. Cardiovascular: Negative for chest pain, palpitations and leg swelling. Gastrointestinal: Negative for abdominal pain, constipation, diarrhea, heartburn, nausea and vomiting. Endocrine: Negative for polyuria. Genitourinary: Negative for dysuria, hematuria, pelvic pain, vaginal bleeding, vaginal discharge and vaginal pain. Musculoskeletal: Positive for arthralgias. Neurological: Positive for memory loss. Negative for dizziness, syncope and headaches. Psychiatric/Behavioral: Negative for behavioral problems. Medications: Current Outpatient Medications: ??? albuterol sulfate HFA 108 (90 Base) MCG/ACT inhaler, Inhale 2 puffs into the lungs every 4 (four) hours as needed for Wheezing., Disp: 18 g, Rfl: 3 ??? atorvastatin 80 MG tablet, TAKE 1 TABLET BY MOUTH EVERY DAY, Disp: , Rfl: ??? bisoprolol (ZEBETA) 5 MG tablet, Take 1 tablet by mouth daily., Disp: , Rfl: ??? calcium carbonate 600 MG tablet, Take by mouth daily., Disp: , Rfl: ??? Cholecalciferol (VITAMIN D3) 50 MCG (1999 UT) Cap, take 1 by Oral route every day, Disp: , Rfl: ??? ELIQUIS 5 MG tablet, Take 5 mg by mouth 2 (two) times daily., Disp: , Rfl: ??? Fluticasone Furoate (ARNUITY ELLIPTA) 100 MCG/ACT AEROSOL POWDER, BREATH ACTIVATED, Inhale 1 puff into the lungs daily. Rinse and spit after, Disp: 90 each, Rfl: 3 ??? folic acid (FOLVITE) 1 MG tablet, TAKE 1 TABLET BY MOUTH EVERY DAY, Disp: 90 tablet, Rfl: 0 ??? furosemide (LASIX) 20 MG tablet, Take 20 mg by mouth daily., Disp: , Rfl: ??? isosorbide mononitrate ER (IMDUR) 30 MG 24 hr tablet, Take 1 tablet (30 mg total) by mouth daily., Disp: 30 tablet, Rfl: 0 ??? methotrexate 2.5 MG tablet, , Disp: , Rfl: ??? montelukast (SINGULAIR) 10 MG tablet, TAKE 1 TABLET BY MOUTH EVERY DAY EVERY NIGHT Strength: 10mg, Disp: 90 tablet, Rfl: 3 ??? nitroglycerin 0.4 MG SL tablet, May repeat dose every 5 minutes for up to 3 doses total., Disp:, Rfl: ??? PANTOPRAZOLE EC 40 MG tablet, TAKE 1 TABLET BY MOUTH TWICE A DAY, Disp: 180 tablet, Rfl: 1 ??? PARoxetine (PAXIL) 20 MG tablet, TAKE 1 TABLET BY MOUTH EVERY DAY, Disp: 90 tablet, Rfl: 0 ??? potassium chloride CR 20 MEQ tablet, TAKE 2 TABLETS EVERY MORNING AND 2 TABLETS EVERY EVENING, Disp: , Rfl: ??? triamcinolone (KENALOG) 0.1 % cream, Apply topically 2 (two) times daily., Disp: 1 g, Rfl: 0 ??? vitamin C 1000 MG tablet, Take 1,000 mg by mouth daily., Disp: , Rfl: ??? B-D 3CC LUER-KAILASH SYR 22GX1 22G X 1 3 ML Misc, USE ONCE A MONTH DIRECTED WITH METHOTREXATE (Patient not taking: Reported on 10/19/2022), Disp: , Rfl: Allergies Allergen Reactions ??? Latex Rash ??? Sulfa Antibiotics Swelling ??? Levofloxacin Headache and Nausea Only ??? Nitrofurantoin Headache Past Medical History: Diagnosis Date ??? Anxiety ??? Arthritis ??? Asthma ??? Hypertension ??? Lupus (CMS/HCC) ??? Sleep apnea ??? Stroke (CMS/HCC) Past Surgical History: Procedure Laterality Date ??? APPENDECTOMY ??? SECTION ??? HC TRIGGER FINGER RELEASE ??? HYSTERECTOMY ??? TONSILLECTOMY Social History Socioeconomic History ??? Marital status: Tobacco Use ??? Smoking status: Never ??? Smokeless tobacco: Never Vaping Use ??? Vaping Use: Never used Substance and Sexual Activity ??? Alcohol use: Yes Comment: up 2 glasses of wine/month ??? Drug use: Never ??? Sexual activity: Not Currently Social History Narrative [...] ??? TB Father ??? Other (lungs) Father Family Status Relation Name Status ??? Mother ??? Father Physical Exam Vitals reviewed. HENT: Head: Normocephalic and atraumatic. Nose: Nose normal. Mouth/Throat: Mucous membranes are moist. Oropharynx is clear. Eyes: Conjunctiva/sclera: Conjunctivae normal. Cardiovascular: Rate and [...] Behavior normal. Judgment: Judgment normal. Filed Vitals: 10/19/22 0956 10/19/22 1043 BP: (!) 140/77 136/78 Pulse: 71 Resp: 20 Temp: 98.4 ??F (36.9 ??C) TempSrc: Temporal SpO2: 98% Weight: 65.3 kg (144 lb) Height: 4' 11 (1.499 m) Diagnoses/Impression: 1. Prediabetes 2. Caregiver burden 3. Leg cramps, sleep related 4. Mild neurocognitive disorder 5. Essential hypertension isosorbide mononitrate ER (IMDUR) 30 MG 24 hr tablet 6. Allergic dermatitis triamcinolone (KENALOG) 0.1 % cream Recommendations and Plan: 1. Prediabetes Last A1c 5.8 .diet control. Avoid sugars. Low-carb diet advised. 2. Caregiver burden Resources provided and supportive counseling today. Continue Paxil 3. Leg cramps, sleep related Stop gabapentin since no relief. Hold off further treatment will nerve study is resulted. 5. Essential hypertension Well-controlled. Continue current medications. - isosorbide mononitrate ER (IMDUR) 30 MG 24 hr tablet; Take 1 tablet (30 mg total) by mouth daily.Dispense: 30 tablet; Refill: 0 Advised further immediate refills per cardiology 6. Allergic dermatitis Stable, uses steroid as needed. Avoid steroid more than 5 days interval. - triamcinolone (KENALOG) 0.1 % cream; Apply topically 2 (two) times daily. Dispense: 1 g; Refill: 0 Follow-up in 6 months. Earlier if needed. She voiced understanding and agrees with the plan. All questions answered. Orders Placed This Encounter ??? isosorbide mononitrate ER (IMDUR) 30 MG 24 hr tablet ??? triamcinolone (KENALOG) 0.1 % cream Reviewed and updated this visit by provider: Zainab Lugo MD Referring Provider: No ref. provider found PCP: Zainab Lugo MD EY PARTY CHIEF documented in this encounter Plan of Treatment Upcoming Encounters Date Type Department Care Team (Late st Contact Info) Description 10/02/2024 11:40 AM SURVEY PARTY CHIEF Office Visit [facility] Multispecialty Care - [facility] [address] [facility] [place] [address] Johnnie Lr MD [address] [facility] [address] [place] [address] 01/04/2025 9:50 AM CDT Office Visit [facility] Family Medicine - [place] [address] [place] [address] Emily Jordan MD [address] [place], [place] [id number] documented as of this encounter Visit Diagnoses Diagnosis Prediabetes- Primary Other abnormal glucose Caregiver burden Other health problem within the family Leg cramps, sleep related Sleep related leg cramps Essential hypertension Unspecified essential hypertension Allergic dermatitis Contact dermatitis and other eczema, due to unspecified cause Anxiety state Anxiety state, unspecified Gastroesophageal reflux disease without esophagitis Esophageal reflux documented in this encounter Additional Health Concerns Assessment Noted Time PHQ-9 Depression Total Score: 2 05/04/20 22 9:39 AM CDT documented as of this encounter Care Teams Dynamo Repairer Relationship Specialty [place] [id number] [facility] [address] [place] [address] PCP - General FAMILY PRACTICE 09/29/21 06/08/24 [place] [address] [facility] [place] [address] RHEUMATOLOGY 09/27/20 documented as of this encounter
--- OUTSIDE RECORDS SUMMARY | 2024-08-29 09:55 | XMS_ITS | Encounter Summary ---
Author Organization [facility] Address [address] [place] [address]. [place] [address] [place] [address] Care Team Providers Care Or Nurse Manager Name Role Phone Gladis Song MD Unavailable Thi Lugo MD Primary Care Provider [phone] Encounter Details Date Type Department Care Team (Latest Contact Info) Description 04/03/2023 5:01 PM CDT - 04/03/2023 11:59 PM T Hospital Encounter [facility] [address] [place] [address] [place] [address] [place], [place] [id number] Discharge Disposition: Home or Self Care (Routine [...] on file Legal Sex Female 10:22 PM CLAIMS AUDITOR Gender Identity Female 09/12/2021 9:51 AM CLAIMS AUDITOR Sexual Orientation Straight 09/12/2021 9: 51 AM CLAIMS AUDITOR documented as of this encounter Medications at Time of Discharge atorvastatin 80 MG tablet TAKE 1 TABLET BY MOUTH EVERY DAY 05/26/2019 Calcium Carbonate Antacid (CALCIUM CARBONATE OR) Take 600 mg by mouth daily. ELIQUIS 5 MG tablet Take 1 tablet (5 mg total) by mouth 2 (two) times daily. 06/22/2022 isosorbide mononitrate ER (IMDUR) 30 MG 24 [...] as needed for Wheezing. 18 g 3 09/06/2022 3 B-D 3CC LUER-KAILASH SYR 22GX1 22G X 1 3 ML Misc 11/25/2019 4 bisoprolol (ZEBETA) 5 MG tablet Take 1 tablet (5 mg total) by mouth daily. 06/12/2022 4 ciprofloxacin (CIPRO) 500 MG tabletIndications: Acute cystitis with hematuria Take 1 tablet (500 mg total) by mouth 2 (two) times daily for 7 days. 14 tablet 04/03/2023 3 dicyclomine (BENTYL) 10 MG capsule TAKE 1 CAPSULE (10 MG TOTAL) BY MOUTH 2 (TWO) TIMES DAILY FOR 30 DAYS. 07/06/2022 3 fluconazole (DIFLUCAN) 150 MG tablet Take 1 tablet (150 mg total) by mouth once. 02/22/2023 4 fluticasone furoate-vilanterol (BREO ELLIPTA) 100-25 MCG/ACT inhalerIndications :Mild persistent asthma without complication (HHS/HCC) Inhale 1 puff into the lungs daily. Rinse and spit after use 180 each 3 03/14/2023 4 folic acid (FOLVITE) 1 MG tabletIndications: Rheumatoid arthritis without rheumatoid factor, multiple sites ([facility]) TAKE 1 TABLET BY MOUTH EVERY DAY 90 tablet 3 11/27/2022 4 furosemide (LASIX) 20 MG tablet Take 1 tablet (20 mg total) by mouth daily. 06/22/2022 4 hydroCHLOROthiazid e (HYDRODIURIL) 25 MG tablet 4 hydroxychloroquine (PLAQUENIL) 200 MG tablet 3 methotrexate 2.5 MG tablet 08/17/2021 4 metoprolol succinate ER (TOPROL-XL) 50 MG 24 hr tablet 4 montelukast (SINGULAIR) 10 MG tabletIndications: Seasonal allergies TAKE 1 TABLET BY MOUTH EVERY DAY EVERY NIGHT Strength: 10 mg 90 tablet 3 09/06/2022 4 ondansetron (ZOFRAN) 4 MG tabletIndications: Heartburn Take 1 tablet (4 mg total) by mouth every 8 (eight) hours as needed for Nausea. 20 tablet 01/09/2023 3 pantoprazole EC (PROTONIX) 40 MG tabletIndications: Gastroesophageal reflux disease without esophagitis Take 1 tablet (40 mg total) by mouth daily. 90 tablet 1 02/22/2023 3 PARoxetine (PAXIL) 20 MG tabletIndications: Anxiety state Take 2 tablets (40 mg total) by mouth daily. 180 tablet 1 02/22/2023 4 potassium chloride CR 20 MEQ tablet TAKE 2 TABLETS EVERY MORNING AND 2 TABLETS EVERY EVENING 01/04/2020 4 triamcinolone (KENALOG) 0.1 % creamIndications:A llergic dermatitis Apply topically 2 (two) times daily. 15 g 1 02/22/2023 4 documented as of this encounter Plan of Treatment Upcoming Encounters Date Type Department Care Team (Late st Contact Info) Description 10/02/2024 11:40 AM CLAIMS AUDITOR Office Visit [facility] Multispecialty Care - [address] [place] [address] Johnnie Lr MD [address] [place] [address] 01/04/2025 9:50 AM CDT Office Visit [facility] Family Medicine - [place] [address] [place] [address] Emily Jordan MD [address] [place] [address] documented as of this encounter Procedures Procedure Name Priority Date/Time Associated Diagnosis Comments URINE BACTERIA CULTURE Routine 04/03/2023 3:48 PM CDT Frequency of urination documented in this encounter Results * (ABNORMAL) CULTURE URINE (04/03/2023 3:48 PM CDT) SPEC DESCRIPTION URINE CLEAN CATCH 04/03/2023 5:01 PM CDT [facility] SPECIAL REQUESTS NO SPECIAL REQUEST 04/03/2023 5:01 PM CDT [facility] CULTURE RESULT >100,000 COL/ML ESCHERICHIA COLI (A) 04/05/2023 8:18 AM CDT [facility] URINE SPECIMEN OBTAINED BY CLEAN CATCH PROCEDURE / Unknown 04/03/2023 3:48 PM CDT 04/03/2023 5:06 PM CDT Narrative Organism Antibiotic Method Susceptibility Escherichia coli AMPICILLIN LILO (VITEK) 4: Sensitive Escherichia coli AMPICILLIN/SULBACTAM LILO (VITEK) <=2: Sensitive Escherichia coli CEFTRIAXONE LILO (VITEK) <=1: Sensitive Escherichia coli CEFTAZIDIME LILO (VITEK) <=1: Sensitive Escherichia coli CEFAZOLIN LILO (VITEK) <=4: Sensitive Escherichia coli ESBL LILO (VITEK) NEG: Sensitive Escherichia coli NITROFURANTOIN LILO (VITEK) <=16: Sensitive Escherichia coli GENTAMICIN LILO (VITEK) <=1: Sensitive Escherichia coli LEVOFLOXACIN LILO (VITEK) <=0.12: Sensitive Escherichia coli PIPRACIL/TAZO LILO (VITEK) <=4: Sensitive Escherichia coli TRIMETH-SULFAMETH. LILO (VITEK) <=20: Sensitive Yolie [facility]CRO[facility] - GENERAL ORDER RADHA Final Result [facility] [address] [place] [address], [facility] [address] [place] [address], documented in this encounter Visit Diagnoses Diagnosis Frequency of urination Urinary frequency documented in this encounter Additional Health Concerns Assessment Noted Time PHQ-9 Depression Total Score: 1 04/03/20 23 3:30 PM CDT documented as of this encounter Care Teams Or Nurse Manager Relationship Specialty [place] [id number] [facility] [place] [address] PCP - General FAMILY PRACTICE 09/29/21 06/08/24 [place] [id number] [facility] [facility] [address] [place] [address] RHEUMATOLOGY 09/27/20 documented as of this encounter
--- OUTSIDE RECORDS SUMMARY | 2024-08-29 09:55 | XMS_ITS | Encounter Summary ---
Author Organization [facility] Address [address] [place] [address]. [place] [address] [place] [address] Care Team Providers Care Frame Stripper Name Role Phone Gladis Song MD Unavailable hTi Lugo MD Primary Care Provider [phone] Encounter Details Date Type Department Care Team (Latest Contact Info) Description 01/09/2023 12:43 PM CDT - 01/09/2023 11:59 PM [facility] Hospital Encounter [facility] [address] [place] [address] [place] [address] [place], [place] [id number] Discharge Disposition: Home or Self Care (Routine [...] on file Legal Sex Female 10:22 PM [employer] Gender Identity Female 09/12/2021 9:51 AM [employer] Sexual Orientation Straight 09/12/2021 9: 51 AM [employer] COVID-19 Exposure Response Date Recorded In the last 10 days, have eliana u been in contact with someone who was confirmed or suspected to have Coronavirus/COVID-19? No / Unsure 01/09/2023 10:39 AM CDT documented as of this encounter Medications at [...] times daily for 7 days. 14 tablet 01/09/2023 3 dicyclomine (BENTYL) 10 MG capsule TAKE 1 CAPSULE (10 MG TOTAL) BY MOUTH 2 (TWO) TIMES DAILY FOR 30 DAYS. 07/06/2022 3 Fluticasone Furoate (ARNUITY ELLIPTA) 100 MCG/ACT AEROSOL POWDER, BREATH ACTIVATEDIndicatio ns:Mild persistent asthma without complication (HHS/HCC) Inhale 1 puff into the lungs daily. Rinse and spit after 90 each 3 05/15/2022 3 folic acid (FOLVITE) 1 MG tabletIndications: Rheumatoid arthritis without rheumatoid factor, multiple sites ([facility]/HCC HHS/HCC) TAKE 1 TABLET BY MOUTH EVERY DAY 90 tablet 3 11/27/2022 4 furosemide (LASIX) 20 MG tablet Take 1 tablet (20 mg total) by mouth daily. 06/22/2022 4 methotrexate 2.5 MG tablet 08/17/2021 4 montelukast (SINGULAIR) 10 MG tabletIndications: Seasonal [...] total) by mouth daily. 90 tablet 1 11/12/2022 3 PARoxetine (PAXIL) 20 MG tabletIndications: Anxiety state Take 1 tablet (20 mg total) by mouth daily. 90 tablet 1 11/12/2022 3 potassium chloride CR 20 MEQ tablet TAKE 2 TABLETS EVERY MORNING AND 2 TABLETS EVERY EVENING 01/04/2020 4 sucralfate (CARAFATE) 1 G tablet Take 1 tablet (1 g total) by mouth 4 (four) times daily before meals and nightly. 3 triamcinolone (KENALOG) 0.1 % creamIndications:A llergic dermatitis APPLY TOPICALLY TWICE A DAY 15 g 12/24/2022 3 documented as of this encounter Plan of Treatment Upcoming Encounters Date Type Department Care Team (Late st Contact Info) Description 10/02/2024 11:40 AM [employer] Office Visit [facility] Multispecialty Care - [address], [address] [place] [address] Johnnie Lr MD [address] [facility] [address] [place] [address] 01/04/2025 9:50 AM CDT Office Visit [facility] Family Medicine [facility] [address] [place] [address] Emily Jordan MD [address] [place] [address] documented as of this encounter Procedures Procedure Name Priority Date/Time Associated Diagnosis Comments URINE BACTERIA CULTURE Routine 11:24 AM CDT Leukocytes in urine COMPREHENSIVE METABOLIC PANEL Routine 01/09/2023 11:24 AM CDT Diarrhea, unspecified type CBC W/DIFF AUTOMATED Routine 01/09/2023 11:24 AM CDT Diarrhea, unspecified type documented in this encounter Results * (ABNORMAL) CULTURE URINE (01/09/2023 11:24 AM CDT) SPEC DESCRIPTION URINE CLEAN CATCH 01/09/2023 12:44 PM CDT [facility] SPECIAL REQUESTS NO SPECIAL REQUEST 01/09/2023 12:44 PM CDT [facility] CULTURE RESULT >100,000 COL/ML CITROBACTER FREUNDII NOTE: ORGANISM MAY DEVELOP RESISTANCE AFTER 3 TO 4 DAYS OF THERAPY WITH THIRD GENERATION CEPHALOSPORINS . TESTING OF REPEAT ISOLATES MAY BE WARRANTED. (A) 01/11/2023 9:17 AM CDT [facility] URINE SPECIMEN OBTAINED BY CLEAN CATCH PROCEDURE / Unknown 01/09/2023 11:24 AM CDT 01/09/2023 12:51 PM CDT Narrative Organism Antibiotic Method Susceptibility Citrobacter freundii CEFTRIAXONE LILO (VITEK) <=1: Sensitive Citrobacter freundii CEFTAZIDIME LILO (VITEK) <=1: Sensitive Citrobacter freundii CEFAZOLIN LILO (VITEK) >=64: Resistant Citrobacter freundii NITROFURANTOIN LILO (VITEK) <=16: Sensitive Citrobacter freundii GENTAMICIN LILO (VITEK) <=1: Sensitive Citrobacter freundii LEVOFLOXACIN LILO (VITEK) <=0.12: Sensitive Citrobacter freundii PIPRACIL/TAZO LILO (VITEK) <=4: Sensitive Citrobacter freundii TRIMETH-SULFAMETH. LILO (VITEK) <=20: Sensitive [facility] GENERAL ORDER RADHA Final Result [facility] [address] [place] [address], [place] [phone] [facility] [address] [place] [address], [place] [phone] * (ABNORMAL) CBC W/DIFF AUTOMATED (01/09/2023 11:24 AM CDT) [facility] Signature WBC 8.63 4.4 - 11.0 x10'3/uL 01/09/2023 1:29 PM CDT [facility] RBC 4.60 4.50 - 5.10 x10'6/uL 01/09/2023 1:29 PM CDT [facility] HGB 13.3 12.3 - 15.3 G/DL 01/09/2023 1:29 PM CDT [facility] HCT 42.6 35.9 - 44.6 % 01/09/2023 1:29 PM CDT [facility] MCV 92.6 80.0 - 96.0 FL 01/09/2023 1:29 PM CDT [facility] MCH 28.9 25.3 - 30.9 PG 01/09/2023 1:29 PM CDT [facility] MCHC 31.2 31.0 - 34.1 G/DL 01/09/2023 1:29 PM T [facility] RDW 15.6(H) 12.4 - 15.1 % 01/09/2023 1:29 PM [facility] PLT 266 151 - 353 x10'3/uL 01/09/2023 1:29 PM T [facility] MPV 9.9 9.6 - 12.0 FL 01/09/2023 1:29 PM T [facility] RBC MORPHOLOGY NORMAL 01/09/2023 1:29 PM T [facility] PLT MORPH. NORMAL 01/09/2023 1:29 PM T [facility] WBC MORPHOLOGY NORMAL 01/09/2023 1:29 PM T [facility] LYMPHOCYTES % 13.4(L) 15.8 - 45.0 % 01/09/2023 1:29 PM [facility] NEUTROPHILS % 72.6(H) 42.1 - 71.9 % 01/09/2023 1:29 PM [facility] MONOCYTES % 11.2 5.7 - 12.5 % 01/09/2023 1:29 PM [facility] EOSINOPHILS 2.3 0.0 - 5.6 % 01/09/2023 1:29 PM [facility] BASOPHILS 0.3 0.0 - 1.3 % 01/09/2023 1:29 PM [facility] ABS. NEUTROPHILS 6.25(H) 1.40 - 6.00 x10'3/uL 01/09/2023 1:29 PM [facility] IMMATURE GRANS % 0.2 0.0 - 0.5 % 01/09/2023 1:29 PM [facility] ABS. LYMPHOCYTES 1.16 0.80 - 4.70 x10'3/uL 01/09/2023 1:29 PM CDT [facility] 01/09/2023 11:2 4 AM CDT [facility] Final Result [facility] [address] [place] [address], * (ABNORMAL) COMPREHENSIVE METABOLIC PANEL (01/09/2023 11:24 AM CDT) GLUCOSE 95 70 - 99 MG/DL 01/09/2023 1:50 PM CDT [facility] BUN 15 7 - 18 MG/DL 01/09/2023 1:50 PM CDT [facility] CREATININE S/P/B 0.68 0.55 - 1.02 MG/DL 01/09/2023 1:50 PM CDT [facility] SODIUM S/P/B 140 136 - 145 MMOL/L 01/09/2023 1:50 PM CDT [facility] POTASSIUM S/P/B 4.6 3.5 - 5.1 MMOL/L 01/09/2023 1:50 PM CDT [facility] CHLORIDE S/P/B 105 100 - 108 MMOL/L 01/09/2023 1:50 PM CDT [facility] CO2 28.5 21 - 32 MMOL/L 01/09/2023 1:50 PM CDT [facility] CALCIUM S/P/B 8.7 8.5 - 10.1 MG/DL 01/09/2023 1:50 PM CDT [facility] BILIRUBIN TOTAL S/P/B 0.5 0.2 - 1.2 MG/DL 01/09/2023 1:50 PM CDT [facility] TOTAL PROTEIN S/P/B 6.9 6.4 - 8.2 G/DL 01/09/2023 1:50 PM T [facility] ALBUMIN S/P/B 3.7 3.4 - 5.0 G/DL 01/09/2023 1:50 PM T [facility] AST 42(H) 15 - 37 U/L 01/09/2023 1:50 PM T [facility] ALT 40 14 - 55 U/L 01/09/2023 1:50 PM T [facility] ALKALINE PHOSPHATASE S/P/B 92 50 - 136 U/L 01/09/2023 1:50 PM T [facility] ANION GAP 6.5 5 - 15 MMOL/L 01/09/2023 1:50 PM T [facility] BUN CREATININE RATIO 22.1 6 - 26 01/09/2023 1:50 PM [facility] A/G RATIO 1.2 1.0 - 2.0 RATIO 01/09/2023 1:50 PM [facility] GFR ESTIMATE >90 >90 ML/MIN/1.7 3 M2 01/09/2023 1:50 PM T [facility] Comment: NOTE: eGFR is not calculated for patients <18 years of age. This is an estimated GFR calculation using the new CKD EPI creatinine equation without race and so does not require a correction factor for race. This estimated GFR should not be used for calculating drug doses. 01/09/2023 11:2 4 AM CDT us [facility] Final Result [facility] [address] [place] [address], [place] [phone] documented in this encounter Visit Diagnoses Diagnosis Diarrhea, unspecified type Leukocytes in urine Other nonspecific finding on examination of urine documented in this encounter Additional Health Concerns Assessment Noted Time PHQ-9 Depression Total Score: 2 05/04/20 22 9:39 AM CDT documented as of this encounter Care Teams Frame Stripper Relationship Specialty Start [place] [address] [facility] [address] [place] [address] PCP - General FAMILY PRACTICE 09/29/21 06/08/24 [place] [address] [facility]. [address] [address] RHEUMATOLOGY 09/27/20 documented as of this encounter
--- OUTSIDE RECORDS SUMMARY | 2024-08-29 09:55 | XMS_ITS | Encounter Summary ---
Author Organization [facility] Address [address] [place] [address]. [place] [address] [place] [address] Care Team Providers Care Warp Spinner Name Role Phone Gladis Song MD Unavailable Thi Lugo MD Primary Care Provider [phone] Reason for Visit * Reason Comments Diarrhea Heartburn X2 weeks D iarrhea X6 days. Burning with urinationHas IBS Encounter Details Date Type Department Care Team (Late st Contact Info) Description 01/09/2023 10:40 AM CDT Office Visit [facility] Family & Internal Medicine [address] [address] Yolie Mac, PA [address] [place] [id number] Diarrhea (Heartburn X2 weeks Diarrhea X6 days. Burning with urination/Has IBS) Social History Tobacco Use Types Packs/Day Years [...] on file Legal Sex Female 10:22 PM DIGITAL CONTENT MANAGER Gender Identity Female 09/12/2021 9:51 AM DIGITAL CONTENT MANAGER Sexual Orientation Straight 09/12/2021 9: 51 AM DIGITAL CONTENT MANAGER COVID-19 Exposure Response Date Recorded In the last 10 days, have yo u been in contact with someone who was confirmed or suspected to have Coronavirus/COVID-19? No / Unsure 01/09/2023 10:39 AM CDT documented as of this encounter Last Filed Vital Signs Vital Sign Reading Time Taken Comments Blood Pressure 115/70 01/09/2023 10:44 AM CDT Pulse 76 01/09/2023 10:44 AM CDT Temperature 36.2 ??C (97.1 ??F) 01/09/2023 10:44 AM C DT Respiratory Rate 18 01/09/2023 10:44 AM CDT Oxygen Saturation 97% 01/09/2023 10:44 AM CDT Inhaled Oxygen Concentration - - Weight 63 kg (139 lb) 01/09/2023 10:44 AM CDT Height 149.9 cm (4' 11 ) 01/09/2023 10:44 AM CDT Body Mass Index 28.07 01/09/2023 10:44 AM CDT documented in this encounter Patient Instructions * Attachments The following attachments cannot be sent through Care Everywhere. * Viral Gastroenteritis Discharge Instructions, Adult (Nigerian) documented in this encounter Progress Notes * PITO Perez - 01/09/2023 10:40 AM CDT Images from the original note were not included. _ Reason for Visit: Diarrhea (Heartburn X2 weeks Diarrhea X6 days. Burning with urination/Has IBS) History of Present Illness: RADHA Orantes is a 72-year-old female here for evaluation of symptoms of having 2 weeks worth of diarrhea heartburn and nausea. She states her symptoms startedshortly after eating out at a [place] restaurant. She states that it was within 1 to 2 hours of going out to the restaurant that she began burping up a bile-like taste in her mouth. She states over the past 6 days her diarrhea has worsened. And over the past 24 to 48 hours she started with burning and frequency with urination. She is having nausea and has had some episodes of vomiting. But those symptoms have been random. She is more concerned about the diarrhea. She states that she is passing like a watery substance. She has not noticed any blood or mucus but admits that she does not really look at her stool. Today already she has had 4 bowel movements. She has had no recent travel. No one else who went out to eat with her is having symptoms but she ate something different than theother guests. ROS: Review of Systems Feeling well. Denies headaches, vision or hearing problems. No recent colds or flus, denies symptoms suggestive of allergies. Denies dysphagia. No heart palpitations, dyspnea or chest pain on exertion. Positive nausea, some abdominal pain, major change in bowel habits, no black or bloody stools. New onset urinary tract symptoms of burning and frequency. No muscle or joint aches or pains. No foot or leg edema. No numbness, tingling,or weakness. No anxiety or depressive symptoms, Sleeping well. No significant weight gain or loss. No fatigue. Medications: Outpatient Medications Marked as Taking for the 01/09/23 encounter (Office Visit) with PITO Perez Medication Sig Dispense Refill albuterol sulfate HFA 108 (90 Base) MCG/ACT inhaler Inhale 2 puffs into the lungs every 4 (four) hours as needed for Wheezing. 18 g 3 atorvastatin 80 MG tablet TAKE 1 TABLET BY MOUTH EVERY DAY B-D 3CC LUER-KAILASH SYR 22GX1 22G X 1 3 ML Misc bisoprolol (ZEBETA) 5 MG tablet Take 1 tablet (5 mg total) by mouth daily. calcium carbonate 600 MG tablet Take by mouth daily. Cholecalciferol (VITAMIN D3) 50 MCG (2000 UT) Cap take 1 by Oral route every day ciprofloxacin (CIPRO) 500 MG tablet Take 1 tablet (500 mg total) by mouth 2 (two) times daily for 7days. 14 tablet 0 dicyclomine (BENTYL) 10 MG capsule TAKE 1 CAPSULE (10 MG TOTAL) BY MOUTH 2 (TWO) TIMES DAILY FOR 30DAYS. ELIQUIS 5 MG tablet Take 1 tablet (5 mg total) by mouth 2 (two) times daily. Fluticasone Furoate (ARNUITY ELLIPTA) 100 MCG/ACT AEROSOL POWDER, BREATH ACTIVATED Inhale 1 puff into the lungs daily. Rinse and spit after 90 each 3 folic acid (FOLVITE) 1 MG tablet TAKE 1 TABLET BY MOUTH EVERY DAY 90 tablet 3 furosemide (LASIX) 20 MG tablet Take 1 tablet (20 mg total) by mouth daily. isosorbide mononitrate ER (IMDUR) 30 MG 24 hr tablet Take 1 tablet (30 mg total) by mouth daily. 30tablet 0 methotrexate 2.5 MG tablet montelukast (SINGULAIR) 10 MG tablet TAKE 1 TABLET BY MOUTH EVERY DAY EVERY NIGHT Strength: 10 mg 90 tablet 3 nitroglycerin 0.4 MG SL tablet May repeat dose every 5 minutes for up to 3 doses total. ondansetron (ZOFRAN) 4 MG tablet Take 1 tablet (4 mg total) by mouth every 8 (eight) hours as needed for Nausea. 20 tablet 0 pantoprazole EC (PROTONIX) 40 MG tablet Take 1 tablet (40 mg total) by mouth daily. 90 tablet 1 PARoxetine (PAXIL) 20 MG tablet Take 1 tablet (20 mg total) by mouth daily. 90 tablet 1 potassium chloride CR 20 MEQ tablet TAKE 2 TABLETS EVERY MORNING AND 2 TABLETS EVERY EVENING sucralfate (CARAFATE) 1 G tablet Take 1 tablet (1 g total) by mouth 4 (four) times daily before meals and nightly. triamcinolone (KENALOG) 0.1 % cream APPLY TOPICALLY TWICE A DAY 15 g 0 vitamin C 1000 MG tablet Take 1 tablet (1,000 mg total) by mouth daily. Review of patient's allergies indicates: Allergen Reactions [...] Family Status Relation Name Status Mother Father 07/06/2022 3:09 PM 09/06/2022 9:08 AM PHQ2/PHQ 9 DEPRESSION SCREEN QUESTIONAIRE Little interest or pleasure in doing things Not at all Feeling down, depressed, or hopeless Not at all Patient Health Questionnaire-2 Score 0 LITTLE INTEREST OR PLEASURE IN DOING THINGS 0-Not at All FEELING DOWN, DEPRESSSED,OR HOPELESS 0-Not at All PHQ2 DEPRESSION TOTAL SCORE 0 04/26/2020 10:20 AM 05/04/2022 9:40 AM JEET-7 Feeling nervous, anxious and on edge 1 - several days 0 - not at all Not being able to stop or control worrying 1 - several days 1 - several days Worrying too much about different things 1 - several days 1 - several days Trouble Relaxing 2 - more than half the days 1 - several days Being so restless that it's hard to sit still 1 - several days 0 - not at all Becoming easily annoyed or irritable 0 - not at all 0 - not at all Feeling afraid as if something awful might happen 0 - not at all 0 - not at all Total Score 6 3 If you checked off any problems, how difficult have those problems made it for you to do your work take care of things at home or get along with other people? not difficult at all Physical Exam Constitutional: Patient is oriented to person, place, and time. Patient appears well-developed and well-nourished. HENT: Right Ear: External ear normal. Left Ear: External ear normal. Head: Normocephalic. Nose: Nose normal. Mouth/Throat: Oropharynx is clear and moist. Eyes: Pupils are equal, round, and reactive to light. Neck: No JVD present. No thyromegaly present. Cardiovascular: Normal rate, regular rhythm, normal heart sounds and intact distal pulses. No murmur heard. Pulmonary/Chest: No respiratory distress. Patient has no wheezes. Patient has no rales. Patient exhibits no tenderness. Abdominal: Patient exhibits no distension and no mass. There is mild generalized tenderness. Positive suprapubic tenderness there is no rebound and no guarding. Hyperactive bowel sounds Musculoskeletal: Normal range of motion. Patient exhibits no edema, tenderness or deformity. Lymphadenopathy: Patient has no cervical adenopathy. Neurological: Patient is alert and oriented to person, place, and time. Skin: No rash noted. No erythema. Psychiatric: Patient has a normal mood and affect. The behavior is normal. Thought content normal. View : No data to display. Vitals: 01/09/23 1044 Patient Position: Sitting BP Location: Right arm Cuff size: Adult Regular BP: 115/70 Pulse: 76 Body mass index is 28.07 kg/m??. Assessment and Plan Encounter Diagnose(s) ICD-10-CM ICD-9-CM SNOMED CT(R) 1. Burning with urination R30.0 788.1 SCALDING PAIN ON URINATION URINALYSIS AUTO DIP 2. Leukocytes in urine R82.998 791.7 LEUKOCYTES IN URINE CULTURE URINE 3. Diarrhea, unspecified type R19.7 787.91 DIARRHEA GI PANEL PCR - STOOL CLOSTRIDIUM DIFFICILE CBC W/DIFF AUTOMATED COMPREHENSIVE METABOLIC PANEL US ABD LIMITED VENIPUNC ARM DRAW 4. Acute cystitis with hematuria N30.01 595.0 ACUTE CYSTITIS ciprofloxacin (CIPRO) 500 MG tablet 5. Heartburn R12 787.1 HEARTBURN US ABD LIMITED ondansetron (ZOFRAN) 4 MG tablet 6. Bloating R14.0 787.3 ABDOMINAL BLOATING US ABD LIMITED 7. Generalized abdominal tenderness without rebound tenderness R10.817 789.67 GENERALIZED ABDOMINALTENDERNESS GI PANEL PCR - STOOL Orders Placed This Encounter VENIPUNC ARM DRAW URINALYSIS AUTO DIP CBC W/DIFF AUTOMATED COMPREHENSIVE METABOLIC PANEL US ABD LIMITED dicyclomine (BENTYL) 10 MG capsule sucralfate (CARAFATE) 1 G tablet ciprofloxacin (CIPRO) 500 MG tablet ondansetron (ZOFRAN) 4 MG tablet CULTURE URINE GI PANEL PCR - STOOL CLOSTRIDIUM DIFFICILE Patient was encouraged to use emergency room for symptoms advance. She is instructed to try to keephydrated. She should follow-up with her PCP. Will initiate some testing. I spent 36 minutes obtaining history and performing exam. Time was also spent either ordering medications, tests, or ordering procedures. Time was also spent documenting the medical record, reviewingresults, and communicating test results to the patient. Patient should follow annual wellness exams recommended for age and sex of patient. Items to consider but not limited included yearly annual fasting labs, colonscopy or cologuard when indicated. PSA and prostate for males. Mammogram and female exam for females, Portions of this note were dictated using Farm[employer] speech recognition software. Occasional wrong wordor sound-alike substitutions may have occurred due to the inherent limitations of voice recognition software. Please read the chart carefully and recognize, using context, where the substitutions may have occurred. Yolie Mac PA-C evaluated and Dr Kentrell Frost reviewed and agrees with plan. Cosigned by Thi Lugo MD at 01/11/2023 5:54 AM CDT documented in this encounter Plan of Treatment Upcoming Encounters Date Type Department Care Team (Late st Contact Info) Description 10/02/2024 11:40 AM DIGITAL CONTENT MANAGER Office Visit [facility] Multispecialty Care - [facility] [address] [facility] [place] [address] Johnnie Lr MD [address] [facility] [address] [place] [address] 01/04/2025 9:50 AM CDT Office Visit [facility] Family Medicine - [place] [address] [place] [address] Emily Jordan MD [address] [place] [address] documented as of this encounter Procedures Procedure Name Priority Date/Time Associated Diagnosis Comments VENIPUNC ARM DRAW Routine 01/09/2023 11: 40 AM CDT Diarrhea, unspecified type URINALYSIS AUTO DIP Routine 01/09/2023 Burning with urination documented in this encounter Results * CLOSTRIDIUM DIFFICILE (01/14/2023 11:23 AM CDT) [facility] ANTIGEN NEGATIVE NEGATIVE 01/14/2023 2:49 PM CDT [facility] C DIFFICILE TOXIN A&B (STOOL) NEGATIVE NEGATIVE 01/14/2023 2:49 PM CDT [facility] COMMENT GDH NEGATIVE/TOXI N A & B NEGATIVE: NEGATIVE FOR TOXIGENIC C. DIFFICILE. GDH NEGATIVE/TOXI N A & B NEGATIVE: NEGATIVE FOR TOXIGENIC C. 01/14/2023 2:49 PM CDT [facility] STOOL SPECIMEN / Unknown 01/14/2023 11:23 AM CDT Yolie SHELDON BODY FLUIDS AND STOOLS ORDER RADHA Final Result [facility] [address] [place] [address], * (ABNORMAL) GI PANEL PCR - STOOL (01/14/2023 11:23 AM CDT) CAMPYLOBACTER PCR (STOOL) NOT DETECTED NOT DETECTED 01/14/2023 8:13 PM CDT [facility] PLESIOMONAS SHIGELLOIDES PCR (STOOL) NOT DETECTED NOT DETECTED 01/14/2023 8:13 PM CDT [facility] SALMONELLA PCR (STOOL) NOT DETECTED NOT DETECTED 01/14/2023 8:13 PM CDT [facility] VIBRIO PCR (STOOL) NOT DETECTED NOT DETECTED 01/14/2023 8:13 PM CDT [facility] VIBRIO CHOLERAE PCR (STOOL) NOT DETECTED NOT DETECTED 01/14/2023 8:13 PM CDT [facility] YERSINIA ENTEROCOLITICA PCR (STOOL) NOT DETECTED NOT DETECTED 01/14/2023 8:13 PM CDT [facility] ENTEROAGGREGATIVE ECOLI PCR (STOOL) NOT DETECTED NOT DETECTED 01/14/2023 8:13 PM CDT [facility] ENTEROPATHOGENIC ECOLI PCR (STOOL) NOT DETECTED NOT DETECTED 01/14/2023 8:13 PM CDT [facility] ENTEROTOXIGENIC ECOLI PCR (STOOL) NOT DETECTED NOT DETECTED 01/14/2023 8:13 PM CDT [facility] SHIGA LIKE TOXIN ECOLI PCR (STOOL) NOT DETECTED NOT DETECTED 01/14/2023 8:13 PM CDT [facility] SHIG/ENTEROINVASIVE ECOLI PCR (STOOL) NOT DETECTED NOT DETECTED 01/14/2023 8:13 PM CDT [facility] CRYPTOSPORIDIUM PCR (STOOL) NOT DETECTED NOT DETECTED 01/14/2023 8:13 PM CDT [facility] CYCLOSPORA CAYETANENSIS PCR (STOOL) NOT DETECTED NOT DETECTED 01/14/2023 8:13 PM CDT [facility] ENTAMOEBA HISTOLYTICA PCR (STOOL) NOT DETECTED NOT DETECTED 01/14/2023 8:13 PM CDT [facility] GIARDIA LAMBLIA PCR (STOOL) NOT DETECTED NOT DETECTED 01/14/2023 8:13 PM CDT [facility] ADENOVIRUS F40/41 PCR (STOOL) NOT DETECTED NOT DETECTED 01/14/2023 8:13 PM CDT [facility] ASTROVIRUS PCR (STOOL) NOT DETECTED NOT DETECTED 01/14/2023 8:13 PM CDT [facility] NOROVIRUS GI/GII PCR (STOOL) NOT DETECTED NOT DETECTED 01/14/2023 8:13 PM CDT [facility] ROTAVIRUS A PCR (STOOL) NOT DETECTED NOT DETECTED 01/14/2023 8:13 PM CDT [facility] SAPOVIRUS PCR (STOOL) DETECTED(AA ) NOT DETECTED 01/14/2023 8:13 PM CDT [facility] Comment:RESULT CALLED TO AND REPEATED BACK BY GEORGE HUI MLS 201101/14/2023. FV STOOL SPECIMEN / Unknown 01/14/2023 11:23 AM CDT us Yolie SHELDON MICROBIOLOGY - GENERAL ORDER RADHA Final Result [facility] [address] [place] [address], [place] [phone] * (ABNORMAL) COMPREHENSIVE METABOLIC PANEL (01/09/2023 11:24 AM CDT) [facility] GLUCOSE 95 70 - 99 MG/DL 01/09/2023 1:50 PM CDT [facility] BUN 15 7 - 18 MG/DL 01/09/2023 1:50 PM CDT [facility] CREATININE S/P/B 0.68 0.55 - 1.02 MG/DL 01/09/2023 1:50 PM CDT [facility] SODIUM S/P/B 140 136 - 145 MMOL/L 01/09/2023 1:50 PM CDT [facility] POTASSIUM S/P/B 4.6 3.5 - 5.1 MMOL/L 01/09/2023 1:50 PM CDT [facility] CHLORIDE S/P/B 105 100 - 108 MMOL/L 01/09/2023 1:50 PM CDT [facility] CO2 28.5 21 - 32 MMOL/L 01/09/2023 1:50 PM T [facility] CALCIUM S/P/B 8.7 8.5 - 10.1 MG/DL 01/09/2023 1:50 PM CDT [facility] BILIRUBIN TOTAL S/P/B 0.5 0.2 - 1.2 MG/DL 01/09/2023 1:50 PM T [facility] TOTAL PROTEIN S/P/B 6.9 6.4 - 8.2 G/DL 01/09/2023 1:50 PM T [facility] ALBUMIN S/P/B 3.7 3.4 - 5.0 G/DL 01/09/2023 1:50 PM CDT [facility] AST 42(H) 15 - 37 U/L 01/09/2023 1:50 PM CDT [facility] ALT 40 14 - 55 U/L 01/09/2023 1:50 PM CDT [facility] ALKALINE PHOSPHATASE S/P/B 92 50 - 136 U/L 01/09/2023 1:50 PM CDT [facility] ANION GAP 6.5 5 - 15 MMOL/L 01/09/2023 1:50 PM CDT [facility] BUN CREATININE RATIO 22.1 6 - 26 01/09/2023 1:50 PM CDT [facility] A/G RATIO 1.2 1.0 - 2.0 RATIO 01/09/2023 1:50 PM CDT [facility] GFR ESTIMATE >90 >90 ML/MIN/1.7 3 M2 01/09/2023 1:50 PM T [facility] Comment: NOTE: eGFR is not calculated for patients <18 years of age. This is an estimated GFR calculation using the new CKD EPI creatinine equation without race and so does not require a correction factor for race. This estimated GFR should not be used for calculating drug doses. 01/09/2023 11:2 4 AM CDT Yolie SHELDON LABORATORY Final Result [facility] [address] [place] [address], * (ABNORMAL) CBC W/DIFF AUTOMATED (01/09/2023 11:24 AM CDT) WBC 8.63 4.4 - 11.0 x10'3/uL 01/09/2023 1:29 PM CDT [facility] RBC 4.60 4.50 - 5.10 x10'6/uL 01/09/2023 1:29 PM CDT [facility] HGB 13.3 12.3 - 15.3 G/DL 01/09/2023 1:29 PM [facility] HCT 42.6 35.9 - 44.6 % 01/09/2023 1:29 PM T [facility] MCV 92.6 80.0 - 96.0 FL 01/09/2023 1:29 PM T [facility] MCH 28.9 25.3 - 30.9 PG 01/09/2023 1:29 PM T [facility] MCHC 31.2 31.0 - 34.1 G/DL 01/09/2023 1:29 PM [facility] RDW 15.6(H) 12.4 - 15.1 % 01/09/2023 1:29 PM [facility] PLT 266 151 - 353 x10'3/uL 01/09/2023 1:29 PM [facility] MPV 9.9 9.6 - 12.0 FL 01/09/2023 1:29 PM T [facility] RBC MORPHOLOGY NORMAL 01/09/2023 1:29 PM [facility] PLT MORPH. NORMAL 01/09/2023 1:29 PM T [facility] WBC MORPHOLOGY NORMAL 01/09/2023 1:29 PM [facility] LYMPHOCYTES % 13.4(L) 15.8 - 45.0 % 01/09/2023 1:29 PM T [facility] NEUTROPHILS % 72.6(H) 42.1 - 71.9 % 01/09/2023 1:29 PM [facility] MONOCYTES % 11.2 5.7 - 12.5 % 01/09/2023 1:29 PM T [facility] EOSINOPHILS 2.3 0.0 - 5.6 % 01/09/2023 1:29 PM CDT [facility] BASOPHILS 0.3 0.0 - 1.3 % 01/09/2023 1:29 PM CDT [facility] ABS. NEUTROPHILS 6.25(H) 1.40 - 6.00 x10'3/uL 01/09/2023 1:29 PM CDT [facility] IMMATURE GRANS % 0.2 0.0 - 0.5 % 01/09/2023 1:29 PM CDT [facility] ABS. LYMPHOCYTES 1.16 0.80 - 4.70 x10'3/uL 01/09/2023 1:29 PM CDT [facility] 01/09/2023 11:2 4 AM CDT Yolie SHELDON LABORATORY Final Result [facility] [address] [place] [address], * (ABNORMAL) CULTURE URINE (01/09/2023 11:24 AM CDT) SPEC DESCRIPTION URINE CLEAN CATCH 01/09/2023 12:44 PM CDT [facility] SPECIAL REQUESTS NO SPECIAL REQUEST 01/09/2023 12:44 PM CDT [facility] CULTURE RESULT >100,000 COL/ML CITROBACTER FREUNDII NOTE: ORGANISM MAY DEVELOP RESISTANCE AFTER 3 TO 4 DAYS OF THERAPY WITH THIRD GENERATION CEPHALOSPORINS . TESTING OF REPEAT ISOLATES MAY BE WARRANTED. (A) 01/11/2023 9:17 AM CDT [facility] URINE SPECIMEN OBTAINED BY [...] MICROBIOLOGY - GENERAL ORDER RADHA Final Result [facility] [address] [place] [address], [place] [phone] [facility] [address] [place] [address], [place] [phone] * (ABNORMAL) URINALYSIS AUTO DIP (01/09/2023) COLOR (U) YELLOW YELLOW MG-[id number], [facility]OUDY(A) CLEAR MG-[address], [place] GLUCOSE (U) NEGATIVE NEGATIVE MG/DL MG-[address], [place] BILIRUBIN (U) NEGATIVE NEGATIVE MG-[address], [place] KETONES MG/DL (U) NEGATIVE NEGATIVE MG/DL MG-[address], [facility] SPECIFIC GRAVITY (U) >=1.030 1.001 - 1.035 MG-[address], [facility] BLOOD (U) LARGE (3+ Hemolyzed, About 250 rbc/uL)(A) NEGATIVE MG-[address], [facility] U PH 6.0 5.0 - 9.0 MG-[address], [place] PROTEIN (U) 2+ (100)(A) NEGATIVE mg/dL MG-[address], [place] UROBILINOGEN 0.2 0.2 - 1.0 EU/dL = mg/dL MG-70865 [address] [place] NITRITES NEGATIVE NEGATIVE MG/DL MG-24965 TIFFANIE BARRAZA LEUKOCYTES (U) 3+ (LARGE)(A) NEGATIVE MG-32422 [address] [place] URINE SPECIMEN OBTAINED BY CLEAN CATCH PROCEDURE / Unknown 01/09/2023 Yolie SHELDON URINE ORDERABLES Final Resul t -[id number] [address] [place] [address] [place] [address], documented in this encounter Visit Diagnoses Diagnosis Burning with urination- Primary Dysuria Leukocytes in urine Other nonspecific finding on examination of urine Diarrhea, unspecified type Acute cystitis with hematuria Acute cystitis Heartburn Bloating Flatulence, eructation, and gas pain Generalized abdominal tenderness without rebound tenderness documented in this encounter Additional Health Concerns Assessment Noted Time PHQ-9 Depression Total Score: 2 05/04/20 22 9:39 AM CDT documented as of this encounter Care Teams Warp Spinner Relationship Specialty [place] [address] [place] [address] PCP - General FAMILY PRACTICE 09/29/21 06/08/24 [place] [address] [facility] [facility] [address] [place] [address] RHEUMATOLOGY 09/27/20 documented as of this encounter
--- OUTSIDE RECORDS SUMMARY | 2024-08-29 09:55 | XMS_ITS | Encounter Summary ---
Author Organization [facility] Address [facility]. [place], [place] [address] [place] [address] Care Team Providers Care Certified Tumor Registrar Name Role Phone Gladis Song MD Unavailable Thi Lugo MD Primary Care Provider [phone] Emily Jordan MD Primary Care Provider + Encounter Details Date Type Department Care Team (Late Contact Info) Description 02/27/2023 MyChart Message Enc [facility] - [facility] [address] [place] [address] [facility] Provider Air Quality Message Social History Tobacco Use Types Packs/Day Years [...] on file Legal Sex Female 10:22 PM GLUE CLAMP OPERATOR Gender Identity Female 09/12/2021 9:51 AM GLUE CLAMP OPERATOR Sexual Orientation Straight 09/12/2021 9: 51 AM GLUE CLAMP OPERATOR documented as of this encounter Plan of Treatment Upcoming Encounters Date Type Department Care Team (Late Contact Info) Description 10/02/2024 11:40 AM GLUE CLAMP OPERATOR Office Visit [facility] Medical Group Multispecialty Care - [facility] [address] [facility] [place] [address] Johnnie Lr MD [address] [facility] [address] [place] [address] 01/04/2025 9:50 AM CDT Office Visit [facility] Family Medicine - [place] [address] [place] [address] Emily Jordan MD [address] [place] [address] documented as of this encounter Visit Diagnoses Not on filedocumented in this encounter Additional Health Concerns Infection Onset Date Last Indicated Resolved Time COVID-19 Rule Out 05/09/2024 05/09/2024 05/09/2024 1:24 PM CDT Assessment Noted Time PHQ-9 Depression Total Score: 2 05/04/20 9:39 AM CDT documented as of this encounter Care Teams Certified Tumor Registrar Relationship Specialty [place] [address] [facility] [place] [address] PCP - General FAMILY PRACTICE 09/29/21 06/08/24 Emily Jordan MD [address] [place] [address] PCP - General FAMILY PRACTICE 06/09/24 [place] [address] [facility] [place] [address] RHEUMATOLOGY 09/27/20 documented as of this encounter
--- OUTSIDE RECORDS SUMMARY | 2024-08-29 09:55 | XMS_ITS | Encounter Summary ---
Author Organization [facility] Address [address] [place] [address]. [place], [place] [address] [place] [address] Care Team Providers Care Amortization Schedule Clerk Name Role Phone Gladis Song MD Unavailable Thi Lugo MD Primary Care Provider [phone] Reason for Visit * Reason Onset Date Comments Pre-visit Gap Closure 10/10/2022 Encounter Details Date Type Department Care Team (Late st Contact Info) Description 10/10/2022 Patient Outreach [facility] Medical Group Family & Internal Medicine [address] [address] Liilam Roblero MA Pre-visit Gap Closure Social History Tobacco Use [...] on file Legal Sex Female 10:22 PM MARKET DEVELOPMENT SPECIALIST Gender Identity Female 09/12/2021 9:51 AM MARKET DEVELOPMENT SPECIALIST Sexual Orientation Straight 09/12/2021 9: 51 AM MARKET DEVELOPMENT SPECIALIST documented as of this encounter Progress Notes * Liliam Roblero MA - 10/10/2022 11:34 AM CST Preventive Screenings: Breast Cancer Screening: Up to Date Notes: Colorectal Cancer Screening: Sent to Corrections Notes: Flex Sig 06/05/2021 Diabetic Eye Exam: N/A Notes: Falls Risk Screening: Up to Date Notes: NO NO NO Tobacco Cessation: N/A Notes: Labs: BMP/CMP: N/A Notes: Hemoglobin A1c: N/A Notes: Lipid: N/A Notes: Urine Albumin-Creatinine Ratio: N/A Notes: Immunizations: Influenza: Up to Date Notes: Pneumococcal: Up to Date Notes: Shingles: Needs Follow Up Notes: ET DEVELOPMENT SPECIALIST documented in this encounter Plan of Treatment Upcoming Encounters Date Type Department Care Team (Late st Contact Info) Description 10/02/2024 11:40 AM MARKET DEVELOPMENT SPECIALIST Office Visit [facility] Multispecialty Care - [facility] [address] [facility] [address] [place] [address] Johnnie Lr MD 3 [facility] [address] [place] [address] 01/04/2025 9:50 AM CDT Office Visit [facility] Family Medicine - [place] [address] [facility] [address] [place] [id number] Emily Jordan MD [address] [place] [address] documented as of this encounter Visit Diagnoses Not on filedocumented in this encounter Additional Health Concerns Assessment Noted Time PHQ-9 Depression Total Score: 2 05/04/20 9:39 AM CDT documented as of this encounter Care Teams Amortization Schedule Clerk Relationship Specialty [place] [address] [address] [place] [address] [id number] PCP - General FAMILY PRACTICE 09/29/21 06/08/24 [place] [address] [address] RHEUMATOLOGY 09/27/20 documented as of this encounter
--- OUTSIDE RECORDS SUMMARY | 2024-08-29 09:55 | XMS_ITS | Encounter Summary ---
Author Organization [facility] Address [address] [place] [address]. [place], [place] [address] [place] [address] Care Team Providers Care Binding Cutter Name Role Phone Gladis Song MD Unavailable Thi Lugo MD Primary Care Provider [phone] Reason for Visit * Reason Onset Date Comments Pre-visit Gap Closure 04/10/2023 Encounter Details Date Type Department Care Team (Late st Contact Info) Description 04/10/2023 Patient Outreach [facility] Medical Group Family & Internal Medicine [address] [address] Liliam Roblero MA Pre-visit Gap Closure Social History [...] on file Legal Sex Female 10:22 PM IMPROVEMENT LEAD Gender Identity Female 09/12/2021 9:51 AM IMPROVEMENT LEAD Sexual Orientation Straight 09/12/2021 9: 51 AM IMPROVEMENT LEAD documented as of this encounter Progress Notes * Liliam Roblero MA - 04/10/2023 10:09 AM CDT Preventive Screenings: Breast Cancer Screening: Up to Date Notes: 12/20/2022 Colorectal Cancer Screening: Needs Follow Up Notes: Diabetic Eye Exam: N/A Notes: Falls Risk Screening: Up to Date Notes: 04/03/2023 Tobacco Cessation: N/A Notes: Labs: BMP/CMP: N/A Notes: Hemoglobin A1c: N/A Notes: Lipid: N/A Notes: Urine Albumin-Creatinine Ratio: N/A Notes: Immunizations: Pneumococcal: Up to Date Notes: Shingles: Needs Follow Up Notes: documented in this encounter Plan of Treatment Upcoming Encounters Date Type Department Care Team (Late st Contact Info) Description 10/02/2024 11:40 AM IMPROVEMENT LEAD Office Visit [facility] Multispecialty Care - [facility] 3 [facility] [address] [place] [address] Johnnie Lr MD 3 [facility] [address] [place] [address] 01/04/2025 9:50 AM CDT Office Visit [facility] Family Medicine - [place] [address] [place] [address] Emily Jordan MD [address] [place] [address] documented as of this encounter Visit Diagnoses Not on filedocumented in this encounter Additional Health Concerns Assessment Noted Time PHQ-9 Depression Total Score: 1 04/03/20 23 3:30 PM CDT documented as of this encounter Care Teams Binding Cutter Relationship Specialty [place] [address] [address] [place] [address] PCP - General FAMILY PRACTICE 09/29/21 06/08/24 [place] [address] [facility] [facility] [address] [place] [address] RHEUMATOLOGY 09/27/20 documented as of this encounter
--- OUTSIDE RECORDS SUMMARY | 2024-08-29 09:55 | XMS_ITS | Encounter Summary ---
Author Organization [facility] Address [address] [place] [address]. [place], [place] [address] [place] [address] Care Team Providers Care Front End Loader Operator Name Role Phone Gladis Song MD Unavailable Thi Lugo MD Primary Care Provider [phone] Reason for Referral * Consultation/Treatment (Routine) - Closed Specialty Diagnoses / Procedures Referred By Valerie florian Referred To Contact GENERAL SURGERY / SURGERY Diagnoses Colon cancer screening Procedures OFFICE/OUTPT VISIT,NEW,LEVL III OFFICE/OUTPT VISIT,NEW,LEVL IV OFFICE/OUTPT VISIT,NEW,LEVL V OFFICE/OUTPT VISIT,EST,LEVL III OFFICE/OUTPT VISIT,EST,LEVL IV OFFICE/OUTPT VISIT,EST,LEVL V Thi Lugo MD [address] [place] [address]. [address] [place] [address] Phone: tel: fax: [facility] Medical Group General Surgery [address], [address] [place] [address] Phone: tel: fax: Referral ID Status Reason Start Date Expiration Date Visits Re quested Visits Authorized [id number] Closed 03/01/2023 03/28/2024 99 99 Encounter Details Date Type Department Care Team (Late st Contact Info) Description 02/22/2023 Patient Outreach [facility] Medical Group Family & Internal Medicine [address] [address] Edwin Jernigan MA Social History Tobacco Use Types Packs/Day Years [...] on file Legal Sex Female 10:22 PM PANEL BEATER Gender Identity Female 09/12/2021 9:51 AM PANEL BEATER Sexual Orientation Straight 09/12/2021 9: 51 AM PANEL BEATER documented as of this encounter Progress Notes * Edwin Jernigan MA - 02/22/2023 10:05 AM CDT I am a patient quality advocate calling this patient on behalf of the virtual stand work team to assess the below quality gaps. If you need to contact me directly- my number is [phone]. Preventive Screenings: Breast Cancer Screening: Up to Date Notes:12/20/22 Colorectal Cancer Screening: Needs Follow Up Notes: order placed 05/04/22 / CT ABD 03/16/21 Diabetic Eye Exam: N/A Notes:n/a Falls Risk Screening: Up to Date Notes:02/22/23 Tobacco Cessation: N/A Notes: n/a Labs: BMP/CMP: N/A Notes:n/a Hemoglobin A1c: N/A Notes:n/a Lipid: N/A Notes: n/a Urine Albumin-Creatinine Ratio: N/A Notes: n/a Immunizations: Influenza: Up to Date Notes:07/06/22 Pneumococcal: Up to Date Notes:utd Shingles: Needs Follow Up Notes:nfu * Edwin Jernigan MA - 02/22/2023 10:05 AM CDT Patient would like to have referral for colonoscopy done at this time. Please contact patient with any questions. Thank you, JOSE Pineda VSW Team * Liliam Ontiveros RN - 02/22/2023 10:05 AM CDT Order entered * Liliam Ontiveros RN - 02/22/2023 10:05 AM CDTAddended by: LILIAM ONTIVEROS on: 03/01/2023 08:51 AM Modules accepted: Orders documented in this encounter Plan of Treatment Upcoming Encounters Date Type Department Care Team (Late st Contact Info) Description 10/02/2024 11:40 AM PANEL BEATER Office Visit [facility] Multispecialty Care - [facility] 3 [facility] [place] [address] Johnnie Lr MD 3 [facility] [address] [place] [address] 01/04/2025 9:50 AM CDT Office Visit [facility] Family Medicine - [place] [address] [place] [address] Emily Jordan MD [address] [place] [id number] Scheduled Referrals Name Type Priority Associated Diagnoses Orde r Schedule Ambulatory referral to General Surgery ([facility] Direct Sched Colonoscopy First Avail) Referral Routine Colon cancer screening Ordered: 03/01/2023 documented as of this encounter Visit Diagnoses Diagnosis Colon cancer screening- Primary Special screening for malignant neoplasms, colon documented in this encounter Additional Health Concerns Assessment Noted Time PHQ-9 Depression Total Score: 2 05/04/20 22 9:39 AM CDT documented as of this encounter Care Teams Front End Loader Operator Relationship Specialty [place] [address] [facility] [place] [address] PCP - General FAMILY PRACTICE 09/29/21 06/08/24 [place] [address] [facility]. [facility] [address] [place] [address] RHEUMATOLOGY 09/27/20 documented as of this encounter
--- OUTSIDE RECORDS SUMMARY | 2024-08-29 09:55 | XMS_ITS | Encounter Summary ---
Author Organization [facility] Address [facility] [place] [address] [place] [address] Care Team Providers Care Animal Care Specialist Name Role Phone Gladis Song MD Unavailable Thi Lugo MD Primary Care Provider [phone] Encounter Details Date Type Department Care Team (Latest Contact Info) Description 02/22/2023 Travel Social History Tobacco Use Types Packs/Day [...] on file Legal Sex Female 10:22 PM TEST LEAD APPLICATION TESTING Gender Identity Female 09/12/2021 9:51 AM TEST LEAD APPLICATION TESTING Sexual Orientation Straight 09/12/2021 9: 51 AM TEST LEAD APPLICATION TESTING documented as of this encounter Plan of Treatment Upcoming Encounters Date Type Department Care Team (Late st Contact Info) Description 10/02/2024 11:40 AM TEST LEAD APPLICATION TESTING Office Visit [facility] Medical Group Multispecialty Care - [address], [address] [place] [address] Johnnie Lr MD 3 [facility] [address] [place] [address] 01/04/2025 9:50 AM CDT Office Visit [facility] Medical Group Family Medicine - [place] [address] [place] [address] Emily Jordan MD [address] [place] [address] documented as of this encounter Visit Diagnoses Not on filedocumented in this encounter Additional Health Concerns Assessment Noted Time PHQ-9 Depression Total Score: 2 05/04/20 22 9:39 AM CDT documented as of this encounter Care Teams Animal Care Specialist Relationship Specialty [place] [address] [facility]. [address] [place] [address] PCP - General FAMILY PRACTICE 09/29/21 06/08/24 [place] [address] [facility] [place] [address] RHEUMATOLOGY 09/27/20 documented as of this encounter
--- OUTSIDE RECORDS SUMMARY | 2024-08-29 09:55 | XMS_ITS | Encounter Summary ---
Author Organization [facility] Address [facility] [place] [address] [place] [address] Care Team Providers Care Carpet Loom Fixer Name Role Phone Gladis Song MD Unavailable Thi Lugo MD Primary Care Provider [phone] Encounter Details Date Type Department Care Team (Latest Contact Info) Description 04/24/2023 Travel Social History Tobacco Use Types Packs/Day [...] on file Legal Sex Female 10:22 PM TIRE BEADER MAKER Gender Identity Female 09/12/2021 9:51 AM TIRE BEADER MAKER Sexual Orientation Straight 09/12/2021 9: 51 AM TIRE BEADER MAKER documented as of this encounter Plan of Treatment Upcoming Encounters Date Type Department Care Team (Late st Contact Info) Description 10/02/2024 11:40 AM TIRE BEADER MAKER Office Visit [facility] Medical Group Multispecialty Care - [address] [place] [address] Johnnie Lr MD 3 [facility] [address] [place] [address] 01/04/2025 9:50 AM CDT Office Visit [facility] Medical Group Family Medicine - [place] [address] [place] [address] Emily Jordan MD [address] [place] [address] documented as of this encounter Visit Diagnoses Not on filedocumented in this encounter Additional Health Concerns Assessment Noted Time PHQ-9 Depression Total Score: 1 04/03/20 23 3:30 PM CDT documented as of this encounter Care Teams Carpet Loom Fixer Relationship Specialty [place] [address] [facility]. [address] [place] [address] PCP - General FAMILY PRACTICE 09/29/21 06/08/24 [place] [address] [facility]. [address] [place] [address] RHEUMATOLOGY 09/27/20 documented as of this encounter
--- OUTSIDE RECORDS SUMMARY | 2024-08-29 09:55 | XMS_ITS | Encounter Summary ---
Author Organization [facility] Address [address] [place] [address]. [place], [place] [address] [place] [address] Care Team Providers Care Center Hole Reamer Name Role Phone Gladis Song MD Unavailable Thi Lugo MD Primary Care Provider [phone] Reason for Visit * Reason Onset Date Comments Results 12/27/2022 Encounter Details Date Type Department Care Team (Late st Contact Info) Description 12/27/2022 Telephone [facility] Medical Group Family & Internal Medicine [address] [address] Thi Lugo MD [address] [place] [address]. [address] [place] [address] Results Social History Tobacco Use [...] on file Legal Sex Female 10:22 PM JEWELLERY DESIGNER Gender Identity Female 09/12/2021 9:51 AM JEWELLERY DESIGNER Sexual Orientation Straight 09/12/2021 9: 51 AM JEWELLERY DESIGNER documented as of this encounter Progress Notes * Liliam M Dontrell, RN - 12/31/2022 3:03 PM CDT Noted * Ladonna Thomson LPN - 12/28/2022 11:29 AM CDT Pt called and read message V/U no questions * Liliam Jon RN - 12/27/2022 11:57 AM CDT Left message for patient to return call. Dr Lugo reviewed mammogram from 12/20/22 and states that it is normal. Patient to repeat in 1 year. documented in this encounter Plan of Treatment Upcoming Encounters Date Type Department Care Team (Late st Contact Info) Description 10/02/2024 11:40 AM JEWELLERY DESIGNER Office Visit [facility] Multispecialty Care - [facility] 3 [facility] [place] [address] Johnnie Lr MD 3 [facility] [address] [place] [address] 01/04/2025 9:50 AM CDT Office Visit [facility] Medical Group Family Medicine - [place] [address] [place] [address] Emily Jordan MD [address] [place], [place] [address] documented as of this encounter Visit Diagnoses Not on filedocumented in this encounter Additional Health Concerns Assessment Noted Time PHQ-9 Depression Total Score: 2 05/04/20 9:39 AM CDT documented as of this encounter Care Teams Center Hole Reamer Relationship Specialty [place] [address] [facility] [place] [address] PCP - General FAMILY PRACTICE 09/29/21 06/08/24 [place] [address] [facility]. [facility] [address] [place] [address] RHEUMATOLOGY 09/27/20 documented as of this encounter
--- OUTSIDE RECORDS SUMMARY | 2024-08-29 09:55 | XMS_ITS | Encounter Summary ---
Author Organization [facility] Address [address] [place] [address]. [employer] [place], [place] [address] [place] [address] Care Team Providers Care Latex Ribbon Machine Operator Name Role Phone Gladis Song MD Unavailable Thi Lugo MD Primary Care Provider [phone] Reason for Visit * Reason Comments Consult New pt Dr. Parish napier * Consultation/Treatment (Routine) - Closed Specialty Diagnoses / Procedures Referred By Valerie florian Referred To Contact GENERAL SURGERY / SURGERY Diagnoses Colon cancer screening Procedures OFFICE/OUTPT VISIT,NEW,LEVL III OFFICE/OUTPT VISIT,NEW,LEVL IV OFFICE/OUTPT VISIT,NEW,LEVL V OFFICE/OUTPT VISIT,EST,LEVL III OFFICE/OUTPT VISIT,EST,LEVL IV OFFICE/OUTPT VISIT,EST,LEVL V Thi Lugo [place] [id number] [place] [address]. [address] [place] [address] Phone: tel: fax: [facility] Medical Group General Surgery [address], [address] [place] [address] Phone: tel: fax: Referral ID Status Reason Start Date Expiration Date Visits Re quested Visits Authorized [id number] Closed 03/01/2023 03/28/2024 99 99 Encounter Details Date Type Department Care Team (Late st Contact Info) Description 04/24/2023 1:00 PM CDT Office Visit [facility] Medical Group General Surgery [address], [address] [place] [address] Randal Griffin MD [address] [id number] Consult (New pt Dr. Lugo referral ) Social History Tobacco Use Types Packs/Day [...] on file Legal Sex Female 10:22 PM GLASS INSERTER Gender Identity Female 09/12/2021 9:51 AM GLASS INSERTER Sexual Orientation Straight 09/12/2021 9: 51 AM GLASS INSERTER documented as of this encounter Last Filed Vital Signs Vital Sign Reading Time Taken Comments Blood Pressure 130/77 04/24/2023 12:56 PM CDT Pulse 76 04/24/2023 12:56 PM CDT Temperature 36.6 ??C (97.8 ??F) 04/24/2023 12:56 PM C DT Respiratory Rate 22 04/24/2023 12:56 PM CDT Oxygen Saturation 96% 04/24/2023 12:56 PM CDT Inhaled Oxygen Concentration - - Weight 65 kg (143 lb 6.4 oz) 04/24/2023 12:56 PM CDT Height 149.9 cm (4' 11 ) 04/24/2023 12:56 PM CDT Body Mass Index 28.96 04/24/2023 12:56 PM CDT documented in this encounter Progress Notes * Randal Griffin MD - 04/24/2023 1:00 PM CDT Images from the original note [...] CVA and TIAs in the past. Her bessemer bottom maker is Dr. Oneyda Luque. As I was talking to her, I noticed a dark lesion on the right side of the lower lip. She states that it has been present for about 3 to 4 days. She states that she gets lesions all over her lips are not dark and she has been evaluated by 2 facilities coordinator in the past. However she states that this dark lesion has been present for only 3 to 4 days and has not been evaluated by a facilities coordinator or a physician. She calls it a [...] Anxiety Arthritis Asthma (HHS/HCC) Hypertension Lupus (HHS/HCC) (CMS/HCC) Sleep apnea Stroke (HHS/HCC) (CMS/HCC) Past Surgical History: Procedure Laterality Date [...] and Affect: Mood normal. Behavior: Behavior normal. Vitals: 04/24/23 1256 Patient Position: Sitting BP [...] with her PCP or one of the facilities coordinator she has seen in [facility] for further evaluation. Thank you very much [...] the care ofChio Orantes. Randal Griffin MD Referring Provider: Parish PCP: Thi Lugo MD documented in this encounter Plan of Treatment Upcoming Encounters Date Type Department Care Team (Late st Contact Info) Description 10/02/2024 11:40 AM GLASS INSERTER Office Visit [facility] Medical [facility] Multispecialty Care - [facility] 3 [facility] [address] [place] [address] Johnnie Lr MD [facility] [address] [place] [address] 01/04/2025 9:50 AM CDT Office Visit [facility] Family Medicine - [place] [address] [place], [place] [address] Emily Jordan MD [address] [place] [address] documented as of this encounter Visit Diagnoses Diagnosis Diarrhea, unspecified type- Primary Left lower quadrant abdominal pain History of colon polyps Personal history of colonic polyps documented in this encounter Additional Health Concerns Assessment Noted Time PHQ-9 Depression Total Score: 1 04/03/20 23 3:30 PM CDT documented as of this encounter Care Teams Latex Ribbon Machine Operator Relationship Specialty [place] [address] [facility] [place] [address] PCP - General FAMILY PRACTICE 09/29/21 06/08/24 [place] [address] [place] [address] RHEUMATOLOGY 09/27/20 documented as of this encounter
--- OUTSIDE RECORDS SUMMARY | 2024-08-29 09:55 | XMS_ITS | Encounter Summary ---
Author Organization [facility] Address [address] [place] [address]. [place], [place] [address] [place] [address] Care Team Providers Care Manufacturing Intern Name Role Phone Gladis Song MD Unavailable Thi Lugo MD Primary Care Provider [phone] Emily Jordan MD Primary Care Provider + Encounter Details Date Type Department Care Team (Late st Contact Info) Description 01/31/2023 Correlix Message Enc [facility] Medical Group Family & Internal Medicine [address] [address] [facility] Provider RESULTS Social History Tobacco Use Types Packs/Day Years [...] on file Legal Sex Female 10:22 PM DREDGE OR BARGE SHORE HAND Gender Identity Female 09/12/2021 9:51 AM DREDGE OR BARGE SHORE HAND Sexual Orientation Straight 09/12/2021 9: 51 AM DREDGE OR BARGE SHORE HAND COVID-19 Exposure Response Date Recorded In the last 10 days, have yo u been in contact with someone who was confirmed or suspected to have Coronavirus/COVID-19? No / Unsure 01/09/2023 10:39 AM CDT documented as of this encounter Plan of Treatment Upcoming Encounters Date Type Department Care Team (Late st Contact Info) Description 10/02/2024 11:40 AM DREDGE OR BARGE SHORE HAND Office Visit [facility] Multispecialty Care - [facility] 3 [facility] [place] [address] Johnnie Lr MD 3 [facility] [address] [place] [address] 01/04/2025 9:50 AM CDT Office Visit [facility] Family Medicine - [place] [address] [place] [address] Emily Jordan MD [address] [place], [place] [address] documented as of this encounter Visit Diagnoses Not on filedocumented in this encounter Additional Health Concerns Infection Onset Date Last Indicated Resolved Time COVID-19 Rule Out 05/09/2024 05/09/2024 05/09/2024 1:24 PM CDT Assessment Noted Time PHQ-9 Depression Total Score: 2 05/04/20 22 9:39 AM CDT documented as of this encounter Care Teams Manufacturing Intern Relationship Specialty [place] [address] [facility] [address] [place] [address] PCP - General FAMILY PRACTICE 09/29/21 06/08/24 Emily Jordan MD [address] [place], [place] [address] PCP - General FAMILY PRACTICE 06/09/24 [place] [address] [place] [address] RHEUMATOLOGY 09/27/20 documented as of this encounter
--- OUTSIDE RECORDS SUMMARY | 2024-08-29 09:55 | XMS_ITS | Encounter Summary ---
Author Organization [facility] Address [address] [place] [address]. [place] [address] [place] [address] Care Team Providers Care Social Work Case Manager Name Role Phone Gladis Song MD Unavailable Thi Lugo MD Primary Care Provider [phone] Reason for Visit * Reason Comments Lab (SCAN) Encounter Details Date Type Department Care Team (Latest Contact Info) Description 01/30/2023 Scan HEALTH INFO SRVCS Scanned, Doc Med [...] on file Legal Sex Female 10:22 PM TELEVISION NEWS VIDEO EDITOR Gender Identity Female 09/12/2021 9:51 AM TELEVISION NEWS VIDEO EDITOR Sexual Orientation Straight 09/12/2021 9: 51 AM TELEVISION NEWS VIDEO EDITOR COVID-19 Exposure Response Date Recorded In the last 10 days, have yo u been in contact with someone who was confirmed or suspected to have Coronavirus/COVID-19? No / Unsure 01/09/2023 10:39 AM CDT documented as of this encounter Plan of Treatment Upcoming Encounters Date Type Department Care Team ( Contact Info) Description 10/02/2024 11:40 AM TELEVISION NEWS VIDEO EDITOR [facility] [address] [place] [address] Johnnie Lr MD [address] [place] [address] 01/04/2025 9:50 AM CDT Office Visit [facility] - [place] [address] [place], [place] [address] Emily Jordan MD [address] [place] [address] documented as of this encounter Procedures Procedure Name Priority Date/Time Associated Diagnosis Comments OUTSIDE LAB (SCAN ORDER) 01/30/2023 OUTSIDE LAB (SCAN ORDER) 01/30/2023 OUTSIDE LAB (SCAN ORDER) 01/30/2023 OUTSIDE LAB (SCAN ORDER) 01/30/2023 documented in this encounter Results * OUTSIDE LAB (SCAN) (01/30/2023) 01/30/2023 [facility] Scanned SCANNING Final Resu lt * OUTSIDE LAB (SCAN) (01/30/2023) 01/30/2023 [facility] Scanned SCANNING Final Resu lt * OUTSIDE LAB (SCAN) (01/30/2023) 01/30/2023 [facility] Scanned SCANNING Final Resu lt * OUTSIDE LAB (SCAN) (01/30/2023) 01/30/2023 [facility] Scanned SCANNING Final Resu lt documented in this encounter Visit Diagnoses Not on filedocumented in this encounter Additional Health Concerns Assessment Noted Time PHQ-9 Depression Total Score: 2 05/04/20 22 9:39 AM CDT documented as of this encounter Care Teams Social Work Case Manager Relationship Specialty [place] [id number] [facility] [place] [address] PCP - General FAMILY PRACTICE 09/29/21 06/08/24 [place] [id number] [facility]. [address] [address] RHEUMATOLOGY 09/27/20 documented as of this encounter
--- OUTSIDE RECORDS SUMMARY | 2024-08-29 09:55 | XMS_ITS | Encounter Summary ---
Author Organization [facility] Address [address] [place] [address]. [place], [place] [address] [place] [address] Care Team Providers Care Tin Cutter Name Role Phone Gladis Song MD Unavailable Thi Lugo MD Primary Care Provider [phone] Reason for Visit * Reason Onset Date Comments Information 04/18/2023 Encounter Details Date Type Department Care Team (Late st Contact Info) Description 04/18/2023 Telephone [facility] Medical Group Family & Internal Medicine [address] [address] Thi Lugo MD [address] [place] [address]. [address] [place] [address] Information Social History Tobacco Use Types Packs/Day Years [...] on file Legal Sex Female 10:22 PM BILLBOARD POSTER Gender Identity Female 09/12/2021 9:51 AM BILLBOARD POSTER Sexual Orientation Straight 09/12/2021 9: 51 AM BILLBOARD POSTER documented as of this encounter Progress Notes * Thi Lugo MD - 04/19/2023 12:21 PM CDT Okay for august * Liliam Jon RN - 04/18/2023 1:33 PM CDT Is August OK for patient? * Lottie Burton - 04/18/2023 12:23 PM CDT Chio called to reschedule her appointment for Saturday as she had another appointment in [place] with her specialist. First available appointment was for 08/23/2023. If Dr. Villarreal needs to see her before please call her. documented in this encounter Plan of Treatment Upcoming Encounters Date Type Department Care Team (Late st Contact Info) Description 10/02/2024 11:40 AM BILLBOARD POSTER Office Visit [facility] - [facility] [address] [facility] [place] [address] Johnnie Lr MD [address] [facility] [address] [place] [address] 01/04/2025 9:50 AM CDT Office Visit [facility] - [place] [address] [place], [place] [address] Emily Jordan MD [address] [place] [address] documented as of this encounter Visit Diagnoses Not on filedocumented in this encounter Additional Health Concerns Assessment Noted Time PHQ-9 Depression Total Score: 1 04/03/20 3:30 PM CDT documented as of this encounter Care Teams Tin Cutter Relationship Specialty [place] [address] [facility]. [address] [place] [address] PCP - General FAMILY PRACTICE 09/29/21 06/08/24 [place] [address] [facility]. [address] [address] RHEUMATOLOGY 09/27/20 documented as of this encounter
--- OUTSIDE RECORDS SUMMARY | 2024-08-29 09:55 | XMS_ITS | Encounter Summary ---
Author Organization [facility] Address [address] [place] [address]. [place], [place] [address] [place] [address] Care Team Providers Care Case Resolution Specialist Name Role Phone Gladis Song MD Unavailable Thi Lugo MD Primary Care Provider [phone] Encounter Details Date Type Department Care Team (Latest Contact Info) Description 10/19/2022 Travel Social History Tobacco Use Types Packs/Day [...] on file Legal Sex Female 10:22 PM RESEARCH HYDROLOGIST Gender Identity Female 09/12/2021 9:51 AM RESEARCH HYDROLOGIST Sexual Orientation Straight 09/12/2021 9: 51 AM RESEARCH HYDROLOGIST COVID-19 Exposure Response Date Recorded In the last 10 days, have yo u been in contact with someone who was confirmed or suspected to have Coronavirus/COVID-19? No / Unsure 10/19/2022 9:51 AM RESEARCH HYDROLOGIST documented as of this encounter Plan of Treatment Upcoming Encounters Date Type Department Care Team (Late st Contact Info) Description 10/02/2024 11:40 AM RESEARCH HYDROLOGIST Office Visit [facility] Medical Group Multispecialty [address] [place] [address] Johnnie Lr MD [address] [facility] [address] [place] [address] 01/04/2025 9:50 AM CDT Office Visit [facility] Medical Group Family Medicine - [place] [address] [place] [address] Emily Jordan MD [address] [place], [place] [address] documented as of this encounter Visit Diagnoses Not on filedocumented in this encounter Additional Health Concerns Assessment Noted Time PHQ-9 Depression Total Score: 2 05/04/20 22 9:39 AM CDT documented as of this encounter Care Teams Case Resolution Specialist Relationship Specialty [place] [address] [facility] [place] [address] PCP - General FAMILY PRACTICE 09/29/21 06/08/24 [place] [address] [facility]. [address] [place] [address] RHEUMATOLOGY 09/27/20 documented as of this encounter
--- OUTSIDE RECORDS SUMMARY | 2024-08-29 09:55 | XMS_ITS | Encounter Summary ---
Author Organization [facility] Address [address] [place] [address]. [place] [address] [place] [address] Care Team Providers Care Seasoner Hand Name Role Phone Gladis Song MD Unavailable Thi Lugo MD Primary Care Provider [phone] Reason for Visit * Reason Comments Lab (SCAN) Encounter Details Date Type Department Care Team (Latest Contact Info) Description 12/24/2022 Scan HEALTH INFO SRVCS Scanned, Doc Med [...] on file Legal Sex Female 10:22 PM HUB LEAD Gender Identity Female 09/12/2021 9:51 AM HUB LEAD Sexual Orientation Straight 09/12/2021 9: 51 AM HUB LEAD documented as of this encounter Plan of Treatment Upcoming Encounters Date Type Department Care Team (Late st Contact Info) Description 10/02/2024 11:40 AM HUB LEAD Office Visit [facility] Medical [facility] Care - [address] [place] [address] Johnnie Lr MD [address] [facility] [address] [place] [address] 01/04/2025 9:50 AM CDT Office Visit [facility] Medical Group Family Medicine - [place] [address] [place] [address] Emily Jordan MD [address] [place] [address] documented as of this encounter Procedures Procedure Name Priority Date/Time Associated Diagnosis Comments OUTSIDE LAB (SCAN ORDER) Routine 12/24/2022 documented in this encounter Results * OUTSIDE LAB (SCAN) (12/24/2022) HGB A1C 5.9 % [facility] ONBASE 12/24/2022 [facility] Scanned SCANNING Final Resu lt [facility] documented in this encounter Visit Diagnoses Not on filedocumented in this encounter Additional Health Concerns Assessment Noted Time PHQ-9 Depression Total Score: 2 05/04/20 22 9:39 AM CDT documented as of this encounter Care Teams Seasoner Hand Relationship Specialty [place] [address] [facility] [place] [address] PCP - General FAMILY PRACTICE 09/29/21 06/08/24 [place] [address] [facility] [place] [address] RHEUMATOLOGY 09/27/20 documented as of this encounter
--- OUTSIDE RECORDS SUMMARY | 2024-08-29 09:55 | XMS_ITS | Encounter Summary ---
Author Organization [facility] Address [address] [place] [address]. [place], [place] [address] [place] [address] Care Team Providers Care Marking Clerk Name Role Phone Gladis Song MD Unavailable Thi Lugo MD Primary Care Provider [phone] Reason for Visit * Reason Onset Date Comments Results 02/08/2023 Encounter Details Date Type Department Care Team (Late st Contact Info) Description 02/08/2023 Telephone [facility] Medical Group Family & Internal Medicine [address] [address] Thi Lugo MD [address] [place] [address]. [address] [place] [address] Results Social History Tobacco Use [...] on file Legal Sex Female 10:22 PM PROOF MACHINE OPERATOR Gender Identity Female 09/12/2021 9:51 AM PROOF MACHINE OPERATOR Sexual Orientation Straight 09/12/2021 9: 51 AM PROOF MACHINE OPERATOR COVID-19 Exposure Response Date Recorded In the last 10 days, have yo u been in contact with someone who was confirmed or suspected to have Coronavirus/COVID-19? No / Unsure 01/09/2023 10:39 AM CDT documented as of this encounter Progress Notes * Liliam Jon RN - 02/11/2023 12:52 PM CDT Noted * Jaclyn Ziegler - 02/11/2023 12:39 PM CDT Pt returned call read message v/u * Liliam Jon RN - 02/11/2023 12:38 PM CDT Noted * Thi Lugo MD - 02/11/2023 5:26 AM CDT Can review in office today. * Liliam Jon RN - 02/08/2023 12:14 PM CDT Left message for patient to return call. Lab results from 01/30/2023 all normal with the exception of 1 which is the lupus test. The lupus test can back as indeterminate so it will need to be repeated in 6 weeks. documented in this encounter Plan of Treatment Upcoming Encounters Date Type Department Care Team (Late st Contact Info) Description 10/02/2024 11:40 AM PROOF MACHINE OPERATOR Office Visit [facility] Medical Group Multispecialty Care - [facility] [address] [facility] [place] [address] Johnnie Lr MD [address] [facility] [address] [place] [address] 01/04/2025 9:50 AM CDT Office Visit [facility] Medical Group Family Medicine - [place] [address] [place], [place] [address] Emily Jordan MD [address] [place], [place] [address] documented as of this encounter Visit Diagnoses Not on filedocumented in this encounter Additional Health Concerns Assessment Noted Time PHQ-9 Depression Total Score: 2 05/04/20 22 9:39 AM CDT documented as of this encounter Care Teams Marking Clerk Relationship Specialty [place] [address] [facility] [place] [address] PCP - General FAMILY PRACTICE 09/29/21 06/08/24 [place] [address] [facility] [address] [place] [address] RHEUMATOLOGY 09/27/20 documented as of this encounter
--- OUTSIDE RECORDS SUMMARY | 2024-08-29 09:55 | XMS_ITS | Encounter Summary ---
Author Organization [facility] Address [address] [place] [address]. [place], [place] [address] [place] [address] Care Team Providers Care Maintenance Representative Name Role Phone Gladis Song MD Unavailable Thi Lugo MD Primary Care Provider [phone] Encounter Details Date Type Department Care Team (Latest Contact Info) Description 01/09/2023 Travel Social History Tobacco Use Types Packs/Day [...] on file Legal Sex Female 10:22 PM RETURN AGENT AIRPORT Gender Identity Female 09/12/2021 9:51 AM RETURN AGENT AIRPORT Sexual Orientation Straight 09/12/2021 9: 51 AM RETURN AGENT AIRPORT COVID-19 Exposure Response Date Recorded In the last 10 days, have yo u been in contact with someone who was confirmed or suspected to have Coronavirus/COVID-19? No / Unsure 01/09/2023 10:39 AM CDT documented as of this encounter Plan of Treatment Upcoming Encounters Date Type Department Care Team (Late st Contact Info) Description 10/02/2024 11:40 AM RETURN AGENT AIRPORT Office Visit [facility] Medical Group Multispecialty Care - [facility] [address] [facility] [place] [address] Johnnie Lr MD [address] [facility] [address] [place] [address] 01/04/2025 9:50 AM CDT Office Visit [facility] Medical Group Family Medicine - [place] [address] [place] [address] Emily Jordan MD [address] [place] [address] documented as of this encounter Visit Diagnoses Not on filedocumented in this encounter Additional Health Concerns Assessment Noted Time PHQ-9 Depression Total Score: 2 05/04/20 22 9:39 AM CDT documented as of this encounter Care Teams Maintenance Representative Relationship Specialty [place] [address] [facility] [place] [address] PCP - General FAMILY PRACTICE 09/29/21 06/08/24 [place] [address] [facility] [place] [address] RHEUMATOLOGY 09/27/20 documented as of this encounter
--- OUTSIDE RECORDS SUMMARY | 2024-08-29 09:55 | XMS_ITS | Encounter Summary ---
Author Organization [facility] Address [address] [place] [address]. [place] [address] [place] [address] Care Team Providers Care Associate School Psychologist Name Role Phone Gladis Song MD Unavailable Thi Lugo MD Primary Care Provider [phone] Encounter Details Date Type Department Care Team (Late st Contact Info) Description 04/25/2023 Prep for Procedure [facility] [address] [place] [address] [place] [address] [id number] Social History Tobacco Use Types Packs/Day Years [...] file Legal Sex Female 10:22 PM BANKING CONSULTANT Gender Identity Female 09/12/2021 9:51 AM BANKING CONSULTANT Sexual Orientation Straight 09/12/2021 9: 51 AM BANKING CONSULTANT documented as of this encounter Progress Notes * Marshal Cota MD - 04/25/2023 11:06 AM CDTAddended by: MARSHAL COTA on: 04/26/2023 10:32 AM Modules accepted: Orders documented in this encounter Plan of Treatment Upcoming Encounters Date Type Department Care Team (Late st Contact Info) Description 10/02/2024 11:40 AM BANKING CONSULTANT Office Visit [facility] - [facility] [address] [facility] [address] [place] [address] Johnnie Lr MD [address] [facility] [address] [place] [address] 01/04/2025 9:50 AM CDT Office Visit [facility] Family Medicine - [place] [address] [place] [address] Emily Jordan MD [address] [place] [address] documented as of this encounter Visit Diagnoses Diagnosis Gastroesophageal reflux disease- Primary Esophageal reflux Diarrhea History of colon polyps Personal history of colonic polyps LLQ pain Abdominal pain, left lower quadrant documented in this encounter Additional Health Concerns Assessment Noted Time PHQ-9 Depression Total Score: 1 04/03/20 23 3:30 PM CDT documented as of this encounter Care Teams Associate School Psychologist Relationship Specialty [place] [address] [place] [address] PCP - General FAMILY PRACTICE 09/29/21 06/08/24 [place] [address] [facility]. [address] [place] [address] RHEUMATOLOGY 09/27/20 documented as of this encounter
--- OUTSIDE RECORDS SUMMARY | 2024-08-29 09:55 | XMS_ITS | Encounter Summary ---
Author Organization [facility] Address [address] [place] [address]. [place], [place] [address] [place] [address] Care Team Providers Care School Cafeteria Cook Name Role Phone Gladis Song MD Unavailable Thi Lugo MD Primary Care Provider [phone] Reason for Visit * Reason Comments UTI Acute UTI Encounter Details Date Type Department Care Team (Late st Contact Info) Description 04/03/2023 3:20 PM CDT Office Visit [facility] Family & Internal Medicine [address] [address] Thi Lugo MD [address] [place] [address]. [address] [place] [id number] [place]ol[place] [id number] [place] [address] UTI (Acute UTI) Social History Tobacco Use Types Packs/Day Years [...] on file Legal Sex Female 10:22 PM GL ACCOUNTANT Gender Identity Female 09/12/2021 9:51 AM GL ACCOUNTANT Sexual Orientation Straight 09/12/2021 9: 51 AM GL ACCOUNTANT documented as of this encounter Last Filed Vital Signs Vital Sign Reading Time Taken Comments Blood Pressure 118/69 04/03/2023 3:23 PM CDT Pulse 78 04/03/2023 3:23 PM CDT Temperature 36.3 ??C (97.3 ??F) 04/03/2023 3:23 PM CD T Respiratory Rate 16 04/03/2023 3:23 PM CDT Oxygen Saturation 97% 04/03/2023 3:23 PM CDT Inhaled Oxygen Concentration - - Weight 65.2 kg (143 lb 12.8 oz) 04/03/2023 3:23 PM CDT Height 149.9 cm (4' 11 ) 04/03/2023 3:23 PM CDT Body Mass Index 29.04 04/03/2023 3:23 PM CDT documented in this encounter Progress Notes * PITO Perez - 04/03/2023 3:20 PM CDT Images from the original note were not included. _ Reason for Visit: UTI (Acute UTI) History of Present Illness: RDAHA Orantes is a 72-year-old female here for evaluation thru the walk in clinic for evaluation of urinary symptoms. Patient is having burning and frequency. Patient is not running a fever. Patient is not vomiting. Recent soft messy stool not necessarily diarrhea. ROS: Review of Systems Feeling well. Denies headaches, vision or hearing problems. No recent colds or flus, denies symptoms suggestive of allergies. Denies dysphagia, heartburn or indigestion. No dyspnea or chest pain on exertion. No nausea, abdominal pain, change in bowel habits, black or bloody stools. No muscle or joint aches or pains. No foot or leg edema. No numbness, tingling,or weakness. No anxiety or depressivesymptoms, Sleeping well. No significant weight gain or loss. No fatigue. Medications: Outpatient Medications Marked as Taking for the 04/03/23 encounter (Office Visit) with PITO Perez Medication Sig Dispense Refill ciprofloxacin (CIPRO) 500 MG tablet Take 1 tablet (500 mg total) by mouth 2 (two) times daily for 7days. 14 tablet 0 fluconazole (DIFLUCAN) 150 MG tablet Take 1 tablet (150 mg total) by mouth once. Review of patient's allergies indicates: Allergen Reactions Latex Rash Sulfa Antibiotics Swelling Levofloxacin Headache and Nausea Only Nitrofurantoin Headache Past Medical History: Diagnosis Date Anxiety Arthritis Asthma (HHS/HCC) Hypertension Lupus (HHS/HCC) ([facility]/HCC) Sleep apnea Stroke (HHS/HCC) (CMS/HCC) Past Surgical [...] or more falls in the last year:: No Feels unsteady when walking:: No Worried about falling:: No Physical Exam Constitutional: Patient is oriented to [...] no distension and no mass. There is positive suprapubic tenderness. There is no rebound and [...] content normal. No data to display Vitals: 04/03/23 1523 Patient Position: Sitting BP Location: Right arm Cuff size: Adult Regular BP: 118/69 Pulse: 78 Body mass index is 29.04 kg/m??. Assessment and Plan Encounter Diagnose(s) ICD-10-CM ICD-9-CM SNOMED CT(R) 1. Frequency of urination R35.0 788.41 INCREASED FREQUENCY OF URINATION URINALYSIS AUTO DIP CULTURE URINE 2. Acute cystitis with hematuria N30.01 595.0 ACUTE CYSTITIS ciprofloxacin (CIPRO) 500 MG tablet Discussed the risk of Cipro given patient. Patient is aware that she should push fluids to help prevent Achilles tear. She does have an allergy to Levaquin but it is nausea. She was able to tolerate Cipro okay in the past. Orders Placed This Encounter URINALYSIS AUTO DIP fluconazole (DIFLUCAN) 150 MG tablet metoprolol succinate ER (TOPROL-XL) 50 MG 24 hr tablet hydroxychloroquine (PLAQUENIL) 200 MG tablet hydroCHLOROthiazide (HYDRODIURIL) 25 MG tablet ciprofloxacin (CIPRO) 500 MG tablet CULTURE URINE Patient was told that if symptoms do [...] Portions of this note were dictated using [employer] speech recognition software. Occasional wrong wordor sound-alike substitutions may have occurred due to the inherent limitations of voice recognition software. Please read the chart carefully and recognize, using context, where the substitutions may have occurred. Yolie Mac PA-C evaluated and Dr. Thi Lugo reviewed and agrees with plan. Cosigned by Thi Lugo MD at 04/03/2023 9:22 PM CDT documented in this encounter Plan of Treatment Upcoming Encounters Date Type Department Care Team (Late st Contact Info) Description 10/02/2024 11:40 AM GL ACCOUNTANT Office Visit [facility] [address] [facility] [place] [id number] Johnnie Lr MD [address] [facility] [address] [place] [address] 01/04/2025 9:50 AM CDT Office Visit [facility] Family Medicine - [place] [address] [place] [address] Emily Jordan MD [address] [place], [place] [address] documented as of this encounter Procedures Procedure Name Priority Date/Time Associated Diagnosis Comments URINALYSIS AUTO DIP Routine 04/03/2023 Frequency of urination documented in this encounter Results * (ABNORMAL) CULTURE URINE (04/03/2023 3:48 PM CDT) SPEC DESCRIPTION URINE CLEAN CATCH 04/03/2023 5:01 PM CDT [facility] SPECIAL REQUESTS NO SPECIAL REQUEST 04/03/2023 5:01 PM CDT [facility] CULTURE RESULT >100,000 COL/ML ESCHERICHIA COLI (A) 04/05/2023 8:18 AM CDT [facility] URINE SPECIMEN OBTAINED BY CLEAN [...] MICROBIOLOGY - GENERAL ORDER RADHA Final Result [facility] [address] [place] [address], [place] [phone] [facility] [address] [place] [address], [place] [phone] * (ABNORMAL) URINALYSIS AUTO DIP (04/03/2023) COLOR (U) OTHER(A) YELLOW [id number], [facility] TRAN[facility] CLEAR CLEAR [id number], [facility] GLUCOSE (U) 100 mg/dl(A) NEGATIVE MG/DL [id number], [facility] BILIRUBIN (U) NEGATIVE NEGATIVE MG-[address], [facility] KETONES MG/DL (U) NEGATIVE NEGATIVE MG/DL [id number], [facility] SPECIFIC GRAVITY (U) 1.010 1.001 - 1.035 [id number], [facility] BLOOD (U) MODERATE (Non Hemolyzed, Intact, About 50 rbc/uL)(A) NEGATIVE MG-[id number], [facility] U PH 5.0 5.0 - 9.0 MG-[address], [facility] PROTEIN (U) 2+ (100)(A) NEGATIVE mg/dL [id number], [facility] UROBILINOGEN 1.0 0.2 - 1.0 EU/dL = mg/dL [id number], [facility] NITRITES POSITIVE(A) NEGATIVE MG/DL [id number], [facility] LEUKOCYTES (U) 3+ (LARGE)(A) NEGATIVE [id number] [address] [place] URINE SPECIMEN OBTAINED BY CLEAN CATCH PROCEDURE / Unknown 04/03/2023 Yolie SHELDON URINE [place] [address] [address] [place] [address] [place] [address], documented in this encounter Visit Diagnoses Diagnosis Frequency of urination- Primary Urinary frequency Acute cystitis with hematuria Acute cystitis documented in this encounter Additional Health Concerns Assessment Noted Time PHQ-9 Depression Total Score: 1 04/03/20 23 3:30 PM CDT documented as of this encounter Care Teams School Cafeteria Cook Relationship Specialty [place] [address] [place] [address] PCP - General FAMILY PRACTICE 09/29/21 06/08/24 [place] [address] [facility] [address] RHEUMATOLOGY 09/27/20 documented as of this encounter
--- OUTSIDE RECORDS SUMMARY | 2024-08-29 09:55 | XMS_ITS | Encounter Summary ---
Author Organization [facility] Address [address] [place] [address]. [place] [address] [place] [address] Care Team Providers Care Nitric Acid Plant Operator Name Role Phone Gladis Song MD Unavailable Thi Lugo MD Primary Care Provider [phone] Reason for Visit * Reason Comments Lab [...] on file Legal Sex Female 10:22 PM DRAG OUT MAN Gender Identity Female 09/12/2021 9:51 AM DRAG OUT MAN Sexual Orientation Straight 09/12/2021 9: 51 AM DRAG OUT MAN documented as of this encounter Plan of Treatment Upcoming Encounters Date Type Department Care Team (Late st Contact Info) Description 10/02/2024 11:40 AM DRAG OUT MAN Office Visit [facility] Medical [facility] Multispecialty Care - [address], [address] [place] [address] Johnnie Lr MD 3 [facility] [address] [place] [address] 01/04/2025 9:50 AM CDT Office Visit [facility] Medical Group Family Medicine - [place] [address] [place] [address] Emily Jordan MD [address] [place] [address] documented as of this encounter Procedures Procedure Name Priority Date/Time Associated Diagnosis Comments OUTSIDE LAB (SCAN ORDER) 12/24/2022 documented in this encounter Results * OUTSIDE LAB (SCAN) (12/24/2022) 12/24/2022 us Doc [facility] Scanned SCANNING Final Resu lt documented in this encounter Visit Diagnoses Not on filedocumented in this encounter Additional Health Concerns Assessment Noted Time PHQ-9 Depression Total Score: 2 05/04/20 22 9:39 AM CDT documented as of this encounter Care Teams Nitric Acid Plant Operator Relationship Specialty [place] [address] [facility] [place] [address] PCP - General FAMILY PRACTICE 09/29/21 06/08/24 [place] [address] [facility]. [address] [place] [address] RHEUMATOLOGY 09/27/20 documented as of this encounter
--- OUTSIDE RECORDS SUMMARY | 2024-08-29 09:55 | XMS_ITS | Encounter Summary ---
Author Organization [facility] Address [facility] [place] [address] [place] [address] Care Team Providers Care Pattern Maker Name Role Phone Gladis Song MD Unavailable Thi Lugo MD Primary Care Provider [phone] Encounter Details Date Type Department Care Team (Latest Contact Info) Description 04/03/2023 Travel Social History Tobacco Use Types Packs/Day [...] file Legal Sex Female 10:22 PM MANAGER OF SOFTWARE Gender Identity Female 09/12/2021 9:51 AM MANAGER OF SOFTWARE Sexual Orientation Straight 09/12/2021 9: 51 AM MANAGER OF SOFTWARE documented as of this encounter Plan of Treatment Upcoming Encounters Date Type Department Care Team (Late st Contact Info) Description 10/02/2024 11:40 AM MANAGER OF SOFTWARE [facility] Multispecialty Care - [address], [address] [place] [address] Johnnie Lr MD 3 [facility] [address] [place] [address] 01/04/2025 9:50 AM CDT [facility] Family Medicine - [place] [address] [place] [address] Emily Jordan MD [address] [place] [address] documented as of this encounter Visit Diagnoses Not on filedocumented in this encounter Additional Health Concerns Assessment Noted Time PHQ-9 Depression Total Score: 1 04/03/20 23 3:30 PM CDT documented as of this encounter Care Teams Pattern Maker Relationship Specialty [place] [address] [facility]. [address] [place] [address] PCP - General FAMILY PRACTICE 09/29/21 06/08/24 [place] [address] [facility]. [address] [place] [address] RHEUMATOLOGY 09/27/20 documented as of this encounter
--- OUTSIDE RECORDS SUMMARY | 2024-08-29 09:55 | XMS_ITS | Encounter Summary ---
Author Organization [facility] Address [address] [place] [address]. [place] [address] [place] [address] Care Team Providers Care City Marshal Name Role Phone Gladis Song MD Unavailable Thi Lugo MD Primary Care Provider [phone] Encounter Details Date Type Department Care Team (Late st Contact Info) Description 04/25/2023 Orders Only [facility] Medical Group General Surgery - [place] [address] [facility], [address] [place] [address] Randal Seth MD [address] [facility] [address] [place] [address] Social History Tobacco Use Types [...] on file Legal Sex Female 10:22 PM DOUBLE REAMER OPERATOR Gender Identity Female 09/12/2021 9:51 AM DOUBLE REAMER OPERATOR Sexual Orientation Straight 09/12/2021 9: 51 AM DOUBLE REAMER OPERATOR documented as of this encounter Plan of Treatment Upcoming Encounters Date Type Department Care Team (Late st Contact Info) Description 10/02/2024 11:40 AM DOUBLE REAMER OPERATOR Office Visit [facility] Medical [facility] Multispecialty Care - [facility] [address] [facility] [place] [address] Johnnie Lr MD [address] [facility] [address] [place] [address] 01/04/2025 9:50 AM CDT Office Visit [facility] Family Medicine - [place] [address] [place], [place] [address] Emily Jordan MD [address] [place] [address] documented as of this encounter Visit Diagnoses Diagnosis Diarrhea- Primary History of colon polyps Personal history of colonic polyps Pain in the abdomen Abdominal pain, unspecified site documented in this encounter Additional Health Concerns Assessment Noted Time PHQ-9 Depression Total Score: 1 04/03/20 23 3:30 PM CDT documented as of this encounter Care Teams City Marshal Relationship Specialty [place] [address] [facility] [place] [address] PCP - General FAMILY PRACTICE 09/29/21 06/08/24 [place] [address] [facility]. [address] [place] [address] RHEUMATOLOGY 09/27/20 documented as of this encounter
--- OUTSIDE RECORDS SUMMARY | 2024-08-29 09:55 | XMS_ITS | Encounter Summary ---
Author Organization [facility] Address [address] [place] [address]. [place], [place] [address] [place] [address] Care Team Providers Care Accounts Receivable Coordinator Name Role Phone Gladis Song MD Unavailable Thi Lugo MD Primary Care Provider [phone] Reason for Visit * Reason Comments Asthma * Consultation/Treatment (Routine) - Closed Specialty Diagnoses / Procedures Referred By Valerie t Referred To Contact Internal Medicine Pulmonary Disease / SLEEP & RESPIRATORY CARE Diagnoses 6 month f/u Procedures FOLLOW UP Johnnie Lr MD [address] [place] [address] [place] [address] Phone: tel: fax: Johnnie Lr MD 3 [facility] [address] [place] [address] Phone: tel: fax: Referral ID Status Reason Start Date Expiration Date Visits Re quested Visits Authorized [id number] Closed 03/14/2023 03/14/2024 99 99 Encounter Details Date Type Department Care Team (Late st Contact Info) Description 03/14/2023 1:00 PM CDT Office Visit [facility] Medical Group Multispecialty Care - [address] [place] [address] Johnnie Lr MD 3 [facility] [address] [place] [address] Asthma Social History Tobacco Use Types Packs/Day Years [...] on file Legal Sex Female 10:22 PM AUTOMATIC STACKER Gender Identity Female 09/12/2021 9:51 AM AUTOMATIC STACKER Sexual Orientation Straight 09/12/2021 9: 51 AM AUTOMATIC STACKER documented as of this encounter Last Filed Vital Signs Vital Sign Reading Time Taken Comments Blood Pressure 107/65 03/14/2023 12:51 PM CDT Pulse 77 03/14/2023 12:51 PM CDT Temperature 37 ??C (98.6 ??F) 03/14/2023 12:51 PM CDT Respiratory Rate 18 03/14/2023 12:51 PM CDT Oxygen Saturation 97% 03/14/2023 12:51 PM CDT RA Inhaled Oxygen Concentration - - Weight 64.4 kg (142 lb) 03/14/2023 12:51 PM CDT Height 149.9 cm (4' 11 ) 03/14/2023 12:51 PM CDT Body Mass Index 28.68 03/14/2023 12:51 PM CDT documented in this encounter Patient Instructions * Patient Instructions* Johnnie Lr MD - 03/14/2023 1:00 PM CDT Discontinue Arnuity Start Breo 1 puff a day. Rinse gargle and spit after use Continue albuterol as needed Repeat CT scan of your chest in May Follow-up with me in 6 months documented in this encounter Progress Notes * Johnnie Lr MD - 03/14/2023 1:00 PM CDT [facility] PULMONARY MEDICINE History Chief Complaint Patient presents with Asthma Referring provider: Thi Lugo MD 03/14/2023 OV: Overall doing well since her [...] yet 02/05/2022 OV: Chio Orantes is a 72-year-old female with a past medical history of [...] by Oral route every day dicyclomine (BENTYL) 10 MG capsule TAKE 1 CAPSULE (10 MG TOTAL) BY MOUTH 2 (TWO) TIMES DAILY FOR 30DAYS. ELIQUIS 5 MG tablet Take 1 tablet (5 mg total) by mouth 2 (two) times daily. fluticasone furoate-vilanterol (BREO ELLIPTA) 100-25 MCG/ACT inhaler [...] 1 PARoxetine (PAXIL) 20 MG tablet Take 2 tablets (40 mg total) by mouth daily. 180 tablet 1 potassium chloride CR 20 MEQ tablet TAKE 2 TABLETS EVERY MORNING AND 2 TABLETS EVERY EVENING triamcinolone (KENALOG) 0.1 % cream Apply topically 2 (two) times daily. 15 g 1 vitamin C 1000 MG tablet Take 1 tablet (1,000 mg total) by mouth daily. No current facility-administered medications for this visit. Review of patient's allergies indicates: Allergen Reactions Latex Rash Sulfa Antibiotics Swelling Levofloxacin Headache and Nausea Only Nitrofurantoin Headache Immunization History Administered Date(s) Administered Fluzone High Dose - >Age 65 (Prefilled Syringe) 05/30/2020, 05/30/2020, 07/18/2021, 07/06/2022 Influenza 06/28/2009, 06/05/2011, 07/03/2012, 05/21/2013, 05/17/2015, 05/03/2017 Influenza Adult (Generic) 05/28/2014, 07/13/2016, 07/16/2016, 05/15/2017, 07/03/2018, 06/02/2019 MODERNA COVID-19 (12+) MRNA, LNP-S, PF, 100 MCG/ 0.5 ML DOSE 10/21/2020, 11/18/2020 PFIZER COVID-19 (ORIGINAL FORMULATION, PURPLE CAP) mRNA, LNP-S, PF, 30 MCG/0.3 ML DOSE 08/07/2021 PFIZER COVID-19 BIVALENT (12+) mRNA, LNP-S, PF, 30 [...] is not nervous/anxious. Physical Exam Filed Vitals: 03/14/23 1251 BP: 107/65 Pulse: 77 Resp: 18 Temp: 98.6 ??F (37 ??C) TempSrc: Temporal SpO2: 97% Weight: 64.4 kg (142 lb) Height: 4' 11 (1.499 m) Body mass index is 28.68 kg/m??. Physical Exam: General: Alert, pleasant, in [...] cough Plan - Repeat CT chest 05/2023, the order is active - Continue Singulair 10 mg nightly. Refilled today - Discontinue Arnuity. Start Breo 100/25 mcg 1 puff daily. Rinse gargle and spit after use - Albuterol as needed, refilled today Return in about 6 months (around 09/14/2023). Johnnie Lr MD documented in this encounter Plan of Treatment Upcoming Encounters Date Type Department Care Team (Late st Contact Info) Description 10/02/2024 11:40 AM AUTOMATIC STACKER Office Visit [facility] Multispecialty Care - [facility] [address] [facility] [place] [address] Johnnie Lr MD 3 [facility] [address] [place] [address] 01/04/2025 9:50 AM CDT Office Visit [facility] Family Medicine - [place] [address] [place] [address] Emily Jordan MD [address] [place] [address] documented as of this encounter Visit Diagnoses Diagnosis Mild persistent asthma without complication (HHS/HCC)- Primary Unspecified asthma Pulmonary nodules/lesions, multiple Other nonspecific abnormal finding of lung field Seasonal allergies Allergic rhinitis, cause unspecified documented in this encounter Additional Health Concerns Assessment Noted Time PHQ-9 Depression Total Score: 2 05/04/20 22 9:39 AM CDT documented as of this encounter Care Teams Accounts Receivable Coordinator Relationship Specialty [place] [address] [facility] [address] [place] [address] PCP - General FAMILY PRACTICE 09/29/21 06/08/24 [place] [address] [address] [facility] [address] [place] [address] RHEUMATOLOGY 09/27/20 documented as of this encounter
--- OUTSIDE RECORDS SUMMARY | 2024-08-29 09:55 | XMS_ITS | Encounter Summary ---
Author Organization [facility] Address [address] [place] [address]. [place] [address] [place] [address] Care Team Providers Care Gas Station Service Attendant Name Role Phone Gladis Song MD Unavailable Thi Lugo MD Primary Care Provider [phone] Encounter Details Date Type Department Care Team (Latest Contact Info) Description 02/22/2023 1:35 PM CDT - 02/22/2023 11:59 PM T Hospital Encounter [facility] [address] [place], [place] [id number] [place] [address] [facility] [place] [address] Discharge Disposition: Home or Self [...] on file Legal Sex Female 10:22 PM SERVICE WORKER HELPER Gender Identity Female 09/12/2021 9:51 AM SERVICE WORKER HELPER Sexual Orientation Straight 09/12/2021 9: 51 AM SERVICE WORKER HELPER documented as of this encounter Medications at [...] by mouth daily. 06/12/2022 4 dicyclomine (BENTYL) 10 MG capsule TAKE 1 CAPSULE (10 MG TOTAL) BY MOUTH 2 (TWO) TIMES DAILY FOR 30 DAYS. 07/06/2022 3 fluconazole (DIFLUCAN) 150 MG tablet Take 1 tablet (150 mg total) by mouth once. 02/22/2023 4 Fluticasone Furoate (ARNUITY ELLIPTA) 100 MCG/ACT AEROSOL [...] st Contact Info) Description 10/02/2024 11:40 AM SERVICE WORKER HELPER Office Visit [facility] Multispecialty Care - [facility] [address] [facility] [place] [address] Johnnie Lr MD 3 [facility] [address] [place] [address] 01/04/2025 9:50 AM CDT Office Visit [facility] Family Medicine - [place] [address] [facility] [address] [place] [address] Emily Jordan MD [address] [place] [address] documented as of this encounter Procedures Procedure Name Priority Date/Time Associated Diagnosis Comments URINE BACTERIA CULTURE Routine 02/22/2023 8:18 AM CDT Urinary incontinence, unspecified type documented in this encounter Results * CULTURE URINE (02/22/2023 8:18 AM CDT) SPEC DESCRIPTION URINE CLEAN CATCH 02/22/2023 1:36 PM CDT [facility] SPECIAL REQUESTS NO SPECIAL REQUEST 02/22/2023 1:36 PM CDT [facility] CULTURE RESULT NO GROWTH 2 DAYS 02/24/2023 8:58 AM CDT [facility] URINE SPECIMEN OBTAINED BY CLEAN CATCH PROCEDURE / Unknown 02/22/2023 8:18 AM CDT 02/22/2023 1:37 PM CDT us Thi Lugo MD MICROBIOLOGY - GENERAL ORDERAB LES Final Result Performing Organization Address City/State/[facility] Co de Phone Number [facility] [address] [place] [address], [place] [phone] [facility] [address] [facility] [place] [address], documented in this encounter Visit Diagnoses Diagnosis Urinary incontinence, unspecified type documented in this encounter Additional Health Concerns Assessment Noted Time PHQ-9 Depression Total Score: 2 05/04/20 9:39 AM CDT documented as of this encounter Care Teams Gas Station Service Attendant Relationship Specialty [place] [address] [place] [address] PCP - General FAMILY PRACTICE 09/29/21 06/08/24 [place] [address] [facility] [address] [place] [address] RHEUMATOLOGY 09/27/20 documented as of this encounter
--- OUTSIDE RECORDS SUMMARY | 2024-08-29 09:55 | XMS_ITS | Encounter Summary ---
Author Organization [facility] Address [address] [place] [address]. [place] [address] [place] [address] Care Team Providers Care Oracle Soa Architect Name Role Phone Gladis Song MD Unavailable Thi Lugo MD Primary Care Provider [phone] Encounter Details Date Type Department Care Team (Latest Contact Info) Description 01/14/2023 1:37 PM CDT - 01/14/2023 11:59 PM T Hospital Encounter [facility] [address] [place] [address] [place] [address] [place], [place] [id number] Discharge Disposition: Home or Self Care (Routine [...] on file Legal Sex Female 10:22 PM EXPRESS CLERK Gender Identity Female 09/12/2021 9:51 AM EXPRESS CLERK Sexual Orientation Straight 09/12/2021 9: 51 AM EXPRESS CLERK COVID-19 Exposure Response Date Recorded In the [...] Rheumatoid arthritis without rheumatoid factor, multiple sites ([facility]/HCC HHS/HCC) TAKE 1 TABLET BY MOUTH EVERY [...] st Contact Info) Description 10/02/2024 11:40 AM EXPRESS CLERK Office Visit [facility] Multispecialty Care - [address], [address] [place] [address] Johnnie Lr MD 3 [facility] [address] [place] [address] 01/04/2025 9:50 AM CDT Office Visit [facility] Family Medicine [facility] [address] [place] [address] Emily Jordan MD [address] [place] [address] documented as of this encounter Procedures Procedure Name Priority Date/Time Associated Diagnosis Comments GI PANEL PCR - STOOL Routine 01/14/2023 11:23 AM CDT Diarrhea, unspecified type Generalized abdominal tenderness without rebound tenderness CLOSTRIDIUM DIFFICILE Routine 01/14/2023 11:23 AM CDT Diarrhea, unspecified type documented in this encounter Results * (ABNORMAL) GI PANEL PCR - STOOL (01/14/2023 11:23 AM CDT) CAMPYLOBACTER PCR (STOOL) NOT DETECTED NOT DETECTED 01/14/2023 8:13 PM CDT [facility] PLESIOMONAS SHIGELLOIDES PCR (STOOL) NOT DETECTED NOT DETECTED 01/14/2023 8:13 PM CDT [facility] SALMONELLA PCR (STOOL) NOT DETECTED NOT DETECTED 01/14/2023 8:13 PM CDT [facility] VIBRIO PCR (STOOL) NOT DETECTED NOT DETECTED 01/14/2023 8:13 PM CDT [facility] VIBRIO CHOLERAE PCR (STOOL) NOT DETECTED NOT DETECTED 01/14/2023 8:13 PM CDT [facility] YERSINIA ENTEROCOLITICA PCR (STOOL) NOT DETECTED NOT DETECTED 01/14/2023 8:13 PM CDT [facility] ENTEROAGGREGATIVE ECOLI PCR (STOOL) NOT DETECTED NOT DETECTED 01/14/2023 8:13 PM CDT [facility] ENTEROPATHOGENIC ECOLI PCR (STOOL) NOT DETECTED NOT DETECTED 01/14/2023 8:13 PM CDT [facility] ENTEROTOXIGENIC ECOLI PCR (STOOL) NOT DETECTED NOT DETECTED 01/14/2023 8:13 PM CDT [facility] SHIGA LIKE TOXIN ECOLI PCR (STOOL) NOT DETECTED NOT DETECTED 01/14/2023 8:13 PM CDT [facility] SHIG/ENTEROINVASIVE ECOLI PCR (STOOL) NOT DETECTED NOT DETECTED 01/14/2023 8:13 PM T [facility] CRYPTOSPORIDIUM PCR (STOOL) NOT DETECTED NOT DETECTED 01/14/2023 8:13 PM T [facility] CYCLOSPORA CAYETANENSIS PCR (STOOL) NOT DETECTED NOT DETECTED 01/14/2023 8:13 PM T [facility] ENTAMOEBA HISTOLYTICA PCR (STOOL) NOT DETECTED NOT DETECTED 01/14/2023 8:13 PM T [facility] GIARDIA LAMBLIA PCR (STOOL) NOT DETECTED NOT DETECTED 01/14/2023 8:13 PM [facility] ADENOVIRUS F40/41 PCR (STOOL) NOT DETECTED NOT DETECTED 01/14/2023 8:13 PM T [facility] ASTROVIRUS PCR (STOOL) NOT DETECTED NOT DETECTED 01/14/2023 8:13 PM T [facility] NOROVIRUS GI/GII PCR (STOOL) NOT DETECTED NOT DETECTED 01/14/2023 8:13 PM T [facility] ROTAVIRUS A PCR (STOOL) NOT DETECTED NOT DETECTED 01/14/2023 8:13 PM T [facility] SAPOVIRUS PCR (STOOL) DETECTED(AA ) NOT DETECTED 01/14/2023 8:13 PM T [facility] Comment:RESULT CALLED TO AND REPEATED BACK BY GEORGE HUI MLS 201101/14/2023. FV STOOL SPECIMEN / Unknown 01/14/2023 11:23 AM CDT Yolie SHELDON MICROBIOLOGY - GENERAL ORDER RADHA Final Result [facility] [address] [place] [address], [place] [phone] * CLOSTRIDIUM DIFFICILE (01/14/2023 11:23 AM CDT) [facility] ANTIGEN NEGATIVE NEGATIVE 01/14/2023 2:49 PM CDT [facility] C DIFFICILE TOXIN A&B (STOOL) NEGATIVE NEGATIVE 01/14/2023 2:49 PM CDT [facility] COMMENT [facility] NEGATIVE/TOXI N A & B NEGATIVE: NEGATIVE FOR TOXIGENIC C. DIFFICILE. GD NEGATIVE/TOXI N A & B NEGATIVE: NEGATIVE FOR TOXIGENIC C. 01/14/2023 2:49 PM CDT [facility] STOOL SPECIMEN / Unknown 01/14/2023 11:23 AM CDT Yolie SHELDON BODY FLUIDS AND STOOLS ORDER RADHA Final Result [facility] [address] [place] [address], [place] [phone] documented in this encounter Visit Diagnoses Diagnosis Diarrhea, unspecified type Generalized abdominal tenderness without rebound tenderness documented in this encounter Additional Health Concerns Assessment Noted Time PHQ-9 Depression Total Score: 2 05/04/20 22 9:39 AM CDT documented as of this encounter Care Teams Oracle Soa Architect Relationship Specialty [place] [address] [address] [place] [address] PCP - General FAMILY PRACTICE 09/29/21 06/08/24 [place] [address] [facility]. [facility] [address] [place] [address] RHEUMATOLOGY 09/27/20 documented as of this encounter
--- OUTSIDE RECORDS SUMMARY | 2024-08-29 09:55 | XMS_ITS | Encounter Summary ---
Author Organization [facility] Address [address] [place] [address]. [place], [place] [address] [place] [address] Care Team Providers Care Preparation Supervisor Freezing Name Role Phone Gladis Song MD Unavailable Thi Lugo MD Primary Care Provider [phone] Reason for Visit * Reason Comments Mammogram (SCAN) Encounter Details Date Type Department Care Team (Late Contact Info) Description 12/20/2022 Scan HEALTH INFO SRVCS Scanned, Doc Med Group Mammogram (SCAN) Social History Tobacco Use Types Packs/Day [...] on file Legal Sex Female 10:22 PM PHP WEB DEVELOPER Gender Identity Female 09/12/2021 9:51 AM PHP WEB DEVELOPER Sexual Orientation Straight 09/12/2021 9: 51 AM PHP WEB DEVELOPER documented as of this encounter Plan of Treatment Upcoming Encounters Date Type Department Care Team ([facility] Contact Info) Description 10/02/2024 11:40 AM PHP WEB DEVELOPER Office Visit [facility] Medical [facility] Multispecialty Care - [address], [address] [place] [address] Johnnie Lr MD 3 [facility] [address] [place] [address] 01/04/2025 9:50 AM CDT Office Visit [facility] Family Medicine - [place] [address] [place] [address] Emily Jordan MD [address] [place] [address] documented as of this encounter Procedures Procedure Name Priority Date/Time Associated Diagnosis Comments MAMMOGRAM GENERIC (SCAN ORDER) 12/20/2022 documented in this encounter Results * MAMMOGRAM GENERIC (12/20/2022) Anatomical Region Laterality Modality Other 12/20/2022 us Doc Med Group Scanned SCANNING Final Resu lt documented in this encounter Visit Diagnoses Not on filedocumented in this encounter Additional Health Concerns Assessment Noted Time PHQ-9 Depression Total Score: 2 05/04/20 9:39 AM CDT documented as of this encounter Care Teams Preparation Supervisor Freezing Relationship Specialty [place] [address] [facility]. [address] [place] [address] PCP - General FAMILY PRACTICE 09/29/21 06/08/24 [place] [address] [facility]. [address] [place] [address] RHEUMATOLOGY 09/27/20 documented as of this encounter
--- OUTSIDE RECORDS SUMMARY | 2024-08-29 09:56 | XMS_ITS | Encounter Summary ---
Author Organization [facility] Address [address] [place] [address]. [place], [place] [address] [place] [address] Care Team Providers Care Commercial Drone Pilot Name Role Phone Gladis Song MD Unavailable Thi Lugo MD Primary Care Provider [phone] Reason for Visit * Reason Comments Cough C/o dry cough at [facility] the past couple of days * Consultation/Treatment (Routine) - Closed Specialty Diagnoses / Procedures Referred By Contvannessa t Referred To Contact SLEEP & RESPIRATORY CARE Diagnoses Diffuse interstitial pulmonary fibrosis (CMS/HCC HHS/HCC) Pulmonary nodules [place] [address] [facility]. [address] [place] [address] Phone: tel: fax: Johnnie Lr MD [address] [address] [place] [address] Phone: tel:[phone] fax:[phone] Referral ID Status Reason Start Date Expiration Date V isits Requested Visits Authorized [id number] Closed Specialty Services 10/02/2021 10/30/2022 100 100 Encounter Details Date Type Department Care Team (Latest Contact Info) Description 09/06/2022 9:00 AM STILL OPERATOR BATCH OR CONTINUOUS Office Visit [facility] Multispecialty Care - [facility] [address] [facility] [place] [id number] Johnnie Lr MD 3 [facility] [address] [place] [address] Cough (C/o dry cough at night the past couple of days ) Social History Tobacco Use Types Packs/Day [...] on file Legal Sex Female 10:22 PM STILL OPERATOR BATCH OR CONTINUOUS Gender Identity Female 09/12/2021 9:51 AM STILL OPERATOR BATCH OR CONTINUOUS Sexual Orientation Straight 09/12/2021 9: 51 AM STILL OPERATOR BATCH OR CONTINUOUS COVID-19 Exposure Response Date Recorded In the last 10 days, have yo u been in contact with someone who was confirmed or suspected to have Coronavirus/COVID-19? No / Unsure 09/06/2022 9:03 AM STILL OPERATOR BATCH OR CONTINUOUS documented as of this encounter Last Filed Vital Signs Vital Sign Reading Time Taken Comments Blood Pressure 140/70 09/06/2022 9:07 AM STILL OPERATOR BATCH OR CONTINUOUS Pulse 78 09/06/2022 9:07 AM STILL OPERATOR BATCH OR CONTINUOUS Temperature 36.7 ??C (98 ??F) 09/06/2022 9:07 AM STILL OPERATOR BATCH OR CONTINUOUS Respiratory Rate 12 09/06/2022 9:07 AM STILL OPERATOR BATCH OR CONTINUOUS Oxygen Saturation 98% 09/06/2022 9:07 AM STILL OPERATOR BATCH OR CONTINUOUS Inhaled Oxygen Concentration - - Weight 65.8 kg (145 lb) 09/06/2022 9:07 AM STILL OPERATOR BATCH OR CONTINUOUS Height 149.9 cm (4' 11 ) 09/06/2022 9:07 AM STILL OPERATOR BATCH OR CONTINUOUS Body Mass Index 29.29 09/06/2022 9:07 AM STILL OPERATOR BATCH OR CONTINUOUS documented in this encounter Patient Instructions * Patient Instructions* Johnnie Lr MD - 09/06/2022 9:00 AM STILL OPERATOR BATCH OR CONTINUOUS - Today we discussed increasing your inhaler regimen from Arnuity to Breo. Per our discussion he would like to use your current supply of Arnuity first, if you would like to increase at the end of your current supply give us a call and let us know - Continue using your albuterol as needed - Continue Singulair - Repeat CT scan of your chest in May 2023 - Follow-up with me in 6 months L OPERATOR BATCH OR CONTINUOUS documented in this encounter Progress Notes * Johnnie Lr MD - 09/06/2022 9:00 AM CST [facility] PULMONARY MEDICINE History Chief Complaint Patient presents with ??? Cough C/o dry cough at night the past couple of days Referring provider: Thi Lugo MD 09/06/2022 OV: Overall doing well. She has [...] yet 02/05/2022 OV: Chio Orantes is a 71-year-old female with a past medical history of [...] at home. Past Medical History: Diagnosis Date ??? Anxiety ??? Arthritis ??? Asthma ??? Hypertension ??? Lupus (CMS/HCC) ??? Sleep apnea ??? Stroke (CMS/HCC) Past Surgical History: Procedure Laterality Date ??? APPENDECTOMY ??? SECTION ??? HC TRIGGER FINGER RELEASE ??? HYSTERECTOMY ??? TONSILLECTOMY Social History Tobacco Use ??? Smoking status: Never ??? Smokeless tobacco: Never Vaping Use ??? Vaping Use: Never used Substance Use Topics ??? Alcohol use: Yes Comment: up 2 glasses of wine/month ??? Drug use: Never Family History Problem Relation Name Age of Onset ??? Heart Disease Mother ??? TB Father ??? Other (lungs) Father Current Outpatient Medications Medication Sig Dispense Refill ??? albuterol sulfate HFA 108 (90 Base) MCG/ACT inhaler Inhale 2 puffs into the lungs every 4 (four) hours as needed for Wheezing. 18 g 3 ??? atorvastatin 80 MG tablet TAKE 1 TABLET BY MOUTH EVERY DAY ??? B-D 3CC LUER-KAILASH SYR 22GX1 22G X 1 3 ML Misc USE ONCE A MONTH DIRECTED WITH METHOTREXATE ??? bisoprolol (ZEBETA) 5 MG tablet Take 1 tablet by mouth daily. ??? bisoprolol 5 MG tablet TAKE 1 TABLET BY MOUTH EVERY DAY ??? calcium carbonate 600 MG tablet Take by mouth daily. ??? Cholecalciferol (VITAMIN D3) 50 MCG (2000 UT) Cap take 1 by Oral route every day ??? ELIQUIS 5 MG tablet Take 5 mg by mouth 2 (two) times daily. ??? Fluticasone Furoate (ARNUITY ELLIPTA) 100 MCG/ACT AEROSOL POWDER, BREATH ACTIVATED Inhale 1 puff into the lungs daily. Rinse and spit after 90 each 3 ??? folic acid (FOLVITE) 1 MG tablet TAKE 1 TABLET BY MOUTH EVERY DAY 90 tablet 0 ??? furosemide (LASIX) 20 MG tablet Take 20 mg by mouth daily. ??? furosemide 20 MG tablet TAKE 1 TABLET BY MOUTH EVERY DAY ??? gabapentin (NEURONTIN) 100 MG capsule Take 3 capsules (300 mg total) by mouth nightly. 90 capsule 3 ??? methotrexate 2.5 MG tablet ??? montelukast (SINGULAIR) 10 MG tablet TAKE 1 TABLET BY MOUTH EVERY DAY EVERY NIGHT Strength: 10 mg 90 tablet 3 ??? nitroglycerin 0.4 MG SL tablet May repeat dose every 5 minutes for up to 3 doses total. ??? PANTOPRAZOLE EC 40 MG tablet TAKE 1 TABLET BY MOUTH TWICE A DAY 180 tablet 1 ??? PARoxetine (PAXIL) 20 MG tablet TAKE 1 TABLET BY MOUTH EVERY DAY 90 tablet 0 ??? potassium chloride CR 20 MEQ tablet TAKE 2 TABLETS EVERY MORNING AND 2 TABLETS EVERY EVENING ??? vitamin C 1000 MG tablet Take 1,000 mg by mouth daily. No current facility-administered medications for this visit. Allergies Allergen Reactions ??? Latex Rash ??? Sulfa Antibiotics Swelling ??? Levofloxacin Headache and Nausea Only ??? Nitrofurantoin Headache Immunization History Administered Date(s) Administered ? ? Fluzone High Dose - >Age 65 (Prefilled Syringe) 05/30/2020, 05/30/2020, 07/18/2021, 07/06/2022 ??? Influenza 06/28/2009, 06/05/2011, 07/03/2012, 05/21/2013, 05/17/2015, 05/03/2017 ??? Influenza Adult (Generic) 05/28/2014, 07/13/2016, 07/16/2016, 05/15/2017, 07/03/2018, 06/02/2019 ??? MODERNA COVID-19, MRNA, LNP-S, PF, 100 MCG/ 0.5 ML DOSE 10/21/2020, 11/18/2020 ??? PFIZER COVID-19 (ORIGINAL FORMULATION, PURPLE CAP), MRNA, LNP-S, PF, 30 MCG/0.3 ML DOSE 08/07/2021 ??? PFIZER COVID-19 BIVALENT BOOSTER (12+) mRNA, LNP-S, PF, 30 MCG/0.3 ML DOSE 07/06/2022 ??? Pneumococcal (Pneumovax 23) 05/28/2014 ??? Pneumococcal (Prevnar 13) 05/22/2017 Review of Systems Constitutional: Negative for chills, fever and weight loss. HENT: Negative for ear pain, hearing loss and nosebleeds. Eyes: Negative for blurred vision, double vision and redness. Respiratory: Positive for cough. Negative for hemoptysis, sputum production, shortness of breath and [...] is not nervous/anxious. Physical Exam Filed Vitals: 09/06/22 0907 BP: (!) 140/70 Pulse: 78 Resp: 12 Temp: 98 ??F (36.7 ??C) TempSrc: Temporal SpO2: 98% Weight: 65.8 kg (145 lb) Height: 4' 11 (1.499 m) Body mass index is 29.29 kg/m??. Physical Exam: General: Alert, pleasant, in NAD Neuro: Alert, appropriate Psych: Affect normal Head: NC, AT EENT: No Sinus tenderness to palpation, mallampati 2 Neck: Supple Lymph: No appreciable cervical lymphadenopathy Respiratory: Clear breath sounds without wheezing Cardiovascular: s1,s2, rrr, no audible murmur GI: [...] dogs. IgE 23. Absolute eosinophils 100. Assessment 1. Multiple pulmonary nodules-only risk factor is age 2. Mild persistent asthma 3. Dyspnea on exertion -consider underlying asthma, deconditioning, obesity. Postacute COVID syndrome. 4. Chronic cough Plan - Repeat CT chest 05/2023 - Continue Singulair 10 mg nightly. Refilled today -Continue Arnuity 100 mcg 1 puff daily. Rinse gargle and spit after use. Discussed increasing to Breo given continued frequent use of albuterol, she would prefer to complete her current supply of Arnuity first and call us at the end if she would like to increase to Breo - Albuterol as needed, refilled today Return in about 6 months (around 03/06/2023). Johnnie Lr MD L OPERATOR BATCH OR CONTINUOUS documented in this encounter Plan of Treatment Upcoming Encounters Date Type Department Care Team (Late st Contact Info) Description 10/02/2024 11:40 AM STILL OPERATOR BATCH OR CONTINUOUS Office Visit [facility] Multispecialty Care - [facility] [address] [facility] [place] [phone] Johnnie Lr MD 3 [facility] [address] [place] [address] 01/04/2025 9:50 AM CDT Office Visit [facility] Family [facility] - [place] [address] [facility] [address] [place] [address] Emily Jordan MD [address] [place] [address] documented as of this encounter Visit Diagnoses Diagnosis Mild persistent asthma without complication (HHS/HCC)- Primary Unspecified asthma Pulmonary nodules/lesions, multiple Other nonspecific abnormal finding of lung field Dyspnea on exertion Other dyspnea and respiratory abnormality Seasonal allergies Allergic rhinitis, cause unspecified Shortness of breath documented in this encounter Additional Health Concerns Assessment Noted Time PHQ-9 Depression Total Score: 2 05/04/20 22 9:39 AM CDT documented as of this encounter Care Teams Commercial Drone Pilot Relationship Specialty [place] [address] [facility]. [address] [place] [address] PCP - General FAMILY PRACTICE 09/29/21 06/08/24 [place] [address] [facility]. [facility] [address] [place] [address] RHEUMATOLOGY 09/27/20 documented as of this encounter
--- OUTSIDE RECORDS SUMMARY | 2024-08-29 09:56 | XMS_ITS | Encounter Summary ---
Author Organization [facility] Address [address] [place] [address]. [place] [address] [place] [address] Care Team Providers Care Truck Washer Name Role Phone Gladis Song MD Unavailable Thi Lugo MD Primary Care Provider [phone] Encounter Details Date Type Department Care Team (Latest Contact Info) Description 07/18/2022 Scan HEALTH INFO SRVCS Scanned, Doc Med Group Social History Tobacco Use Types Packs/Day Years Used Date Smoking Tobacco: Never Smokeless Tobacco: Never Alcohol Use Standard Drinks/Week Comments Yes 0 (1 standard drink = 0.6 oz pur e alcohol) up 2 glasses of wine/month PHQ-2 Answer Date Recorded PHQ-2 Score - If the patient scores above 3, please move on to questions 3-9 0 07/06/2022 Comments No Sex and Gender Information Value Date Recorded Sex Assigned at Not on file Legal Sex Female 10:22 PM SOFTWARE SUPPORT ENGINEER Gender Identity Female 09/12/2021 9:51 AM SOFTWARE SUPPORT ENGINEER Sexual Orientation Straight 09/12/2021 9: 51 AM SOFTWARE SUPPORT ENGINEER COVID-19 Exposure Response Date Recorded In the last 10 days, have yo u been in contact with someone who was confirmed or suspected to have Coronavirus/COVID-19? No / Unsure 07/16/2022 4:35 PM SOFTWARE SUPPORT ENGINEER documented as of this encounter Plan of Treatment Upcoming Encounters Date Type Department Care Team (Late st Contact Info) Description 10/02/2024 11:40 AM SOFTWARE SUPPORT ENGINEER Office Visit [facility] Multispecialty Care - [facility] [address] [facility] [place] [address] Johnnie Lr MD [address] [facility] [address] [place] [address] 01/04/2025 9:50 AM CDT Office Visit [facility] Family Medicine - [place] [address] [place] [id number] Emily Jordan MD [address] [place] [address] documented as of this encounter Visit Diagnoses Not on filedocumented in this encounter Additional Health Concerns Assessment Noted Time PHQ-9 Depression Total Score: 2 05/04/20 22 9:39 AM CDT documented as of this encounter Care Teams Truck Washer Relationship Specialty [place] [address] [facility]. [address] [place] [address] PCP - General FAMILY PRACTICE 09/29/21 06/08/24 [place] [address] [facility]. [facility] [address] [place] [address] RHEUMATOLOGY 09/27/20 documented as of this encounter
--- OUTSIDE RECORDS SUMMARY | 2024-08-29 09:56 | XMS_ITS | Encounter Summary ---
Author Organization [facility] Address [address] [place] [address]. [place] [address] [place] [address] Care Team Providers Care Research Agricultural Engineer Name Role Phone Gladis Song MD Unavailable Thi Lugo MD Primary Care Provider [phone] Reason for Visit * Reason Onset Date Comments Results 05/31/2022 Encounter Details Date Type Department Care Team (Late st Contact Info) Description 05/31/2022 Telephone [facility] Medical Group Multispecialty Care - [facility] [address] [facility] [address] [place] [address] Johnnie Lr MD [address] [facility] [address] [place], [place] [id number] Results Social History Tobacco Use Types Packs/Day Years Used Date Smoking Tobacco: Never Smokeless Tobacco: Never Alcohol Use Standard Drinks/Week Comments Yes 0 (1 standard drink = 0.6 oz pur e alcohol) up 2 glasses of wine/month PHQ-2 Answer Date Recorded PHQ-2 Score - If the patient scores above 3, please move on to questions 3-9 0 05/15/2022 Comments No Sex and Gender Information Value Date Recorded Sex Assigned at Not on file Legal Sex Female 10:22 PM WEIGHT CLERK Gender Identity Female 09/12/2021 9:51 AM WEIGHT CLERK Sexual Orientation Straight 09/12/2021 9: 51 AM WEIGHT CLERK COVID-19 Exposure Response Date Recorded In the last 10 days, have yo u been in contact with someone who was confirmed or suspected to have Coronavirus/COVID-19? No / Unsure 05/28/2022 10:01 AM CDT documented as of this encounter Progress Notes * Dyana Taylor MA - 06/01/2022 9:50 AM CDT Called and went over results with patient, she voiced understanding. Before I could ask if she had any more questions or concerns our call disconnected and then when I called back it was busy. * Dyana Taylor MA - 05/31/2022 8:43 AM CDT Images from the original note were not included. documented in this encounter Plan of Treatment Upcoming Encounters Date Type Department Care Team (Late st Contact Info) Description 10/02/2024 11:40 AM WEIGHT CLERK Office Visit [facility] Multispecialty Care - [facility] 3 [facility] [address] [place] [address] Johnnie Lr MD [address] [facility] [address] [place] [address] 01/04/2025 9:50 AM CDT Office Visit [facility] Medical Group Family Medicine - [place] [address] [place], [place] [phone] Emily [place] MD [address] [place], [place] [id number] documented as of this encounter Visit Diagnoses Not on filedocumented in this encounter Additional Health Concerns Assessment Noted Time PHQ-9 Depression Total Score: 2 05/04/20 22 9:39 AM CDT documented as of this encounter Care Teams Research Agricultural Engineer Relationship Specialty [place] [address] [facility] [place] [address] PCP - General FAMILY PRACTICE 09/29/21 06/08/24 [place] [address] [facility]. [address] [place] [address] RHEUMATOLOGY 09/27/20 documented as of this encounter
--- OUTSIDE RECORDS SUMMARY | 2024-08-29 09:56 | XMS_ITS | Encounter Summary ---
Author Organization [facility] Address [address] [place] [address]. [place], [place] [address] [place] [address] Care Team Providers Care Transit Specialist Name Role Phone Gladis Song MD Unavailable Thi Lugo MD Primary Care Provider [phone] Encounter Details Date Type Department Care Team (Late st Contact Info) Description 07/19/2022 Orders Only [facility] Medical [facility] Family & Internal Medicine - [address] [address] Thi Lugo MD [address] [place] [address]. [address] [place] [address] Social History Tobacco Use Types Packs/Day [...] on file Legal Sex Female 10:22 PM BUNDLE PACKER Gender Identity Female 09/12/2021 9:51 AM BUNDLE PACKER Sexual Orientation Straight 09/12/2021 9: 51 AM BUNDLE PACKER COVID-19 Exposure Response Date Recorded In the last 10 days, have eliana rojas been in contact with someone who was confirmed or suspected to have Coronavirus/COVID-19? No / Unsure 07/16/2022 4:35 PM BUNDLE PACKER documented as of this encounter Progress Notes * Thi Lugo MD - 07/19/2022 5:13 AM CST I reviewed cerebrovascular disease, stroke codirector notes from January 2022. Dr. Chris Parsons who advised patient to stop Eliquis given no evidence of A. Fib per Holter monitoring. Advised to initiate baby aspirin. Patient's investor relations coordinator is Dr. Duggan-noted last refill of Eliquis 06/18/2022 LE PACKER documented in this encounter Plan of Treatment Upcoming Encounters Date Type Department Care Team (Late st Contact Info) Description 10/02/2024 11:40 AM BUNDLE PACKER Office Visit [facility] Multispecialty Care - [facility] 3 [facility] [address] [place] [phone] Johnnie Lr MD 3 [facility] [address] [place] [address] 01/04/2025 9:50 AM CDT Office Visit [facility] Medical Group Family Medicine - [place] [address] [facility] [address] [place] [address] Emily [place] MD [address] [place] [address] documented as of this encounter Visit Diagnoses Not on filedocumented in this encounter Additional Health Concerns Assessment Noted Time PHQ-9 Depression Total Score: 2 05/04/20 22 9:39 AM CDT documented as of this encounter Care Teams Transit Specialist Relationship Specialty [place] [address] [facility]. [address] [place] [address] PCP - General FAMILY PRACTICE 09/29/21 06/08/24 [place] [address] [address] [facility] [address] [place] [address] RHEUMATOLOGY 09/27/20 documented as of this encounter
--- OUTSIDE RECORDS SUMMARY | 2024-08-29 09:56 | XMS_ITS | Encounter Summary ---
Author Organization [facility] Address [address] [place] [address]. [place], [place] [address] [place] [address] Care Team Providers Care Machine Clothing Worker Name Role Phone Gladis Song MD Unavailable Thi Lugo MD Primary Care Provider [phone] Encounter Details Date Type Department Care Team (Latest Contact Info) Description 10/03/2022 Scan HEALTH INFO SRVCS Scanned, Doc Med [...] file Legal Sex Female 10:22 PM INDUSTRIAL WASTE INSPECTOR Gender Identity Female 09/12/2021 9:51 AM INDUSTRIAL WASTE INSPECTOR Sexual Orientation Straight 09/12/2021 9: 51 AM INDUSTRIAL WASTE INSPECTOR COVID-19 Exposure Response Date Recorded In the last 10 days, have yo u been in contact with someone who was confirmed or suspected to have Coronavirus/COVID-19? No / Unsure 10/19/2022 9:51 AM INDUSTRIAL WASTE INSPECTOR documented as of this encounter Plan of Treatment Upcoming Encounters Date Type Department Care Team (Late st Contact Info) Description 10/02/2024 11:40 AM INDUSTRIAL WASTE INSPECTOR Office Visit [facility] Multispecialty Care - [facility] 3 [facility] [address] [place] [address] Johnnie Lr MD 3 [facility] [address] [place] [address] 01/04/2025 9:50 AM CDT Office Visit [facility] Family Medicine - [place] [address] [place] [address] Emily [place] MD [address] [place] [address] documented as of this encounter Visit Diagnoses Not on filedocumented in this encounter Additional Health Concerns Assessment Noted Time PHQ-9 Depression Total Score: 2 05/04/20 22 9:39 AM CDT documented as of this encounter Care Teams Machine Clothing Worker Relationship Specialty [place] [address] [facility] [place] [address] PCP - General FAMILY PRACTICE 09/29/21 06/08/24 [place] [address] [facility]. [address] [place] [address] RHEUMATOLOGY 09/27/20 documented as of this encounter
--- OUTSIDE RECORDS SUMMARY | 2024-08-29 09:56 | XMS_ITS | Encounter Summary ---
Author Organization [facility] Address [address] [place] [address]. [place] [address] [place] [address] Care Team Providers Care Straight Knife Cutter Machine Name Role Phone Gladis Song MD Unavailable Thi Lugo MD Primary Care Provider [phone] Encounter Details Date Type Department Care Team (Latest Contact Info) Description 07/23/2022 Scan HEALTH INFO SRVCS Scanned, Doc Med [...] on file Legal Sex Female 10:22 PM IN HOME SALES CONSULTANT Gender Identity Female 09/12/2021 9:51 AM IN HOME SALES CONSULTANT Sexual Orientation Straight 09/12/2021 9: 51 AM IN HOME SALES CONSULTANT COVID-19 Exposure Response Date Recorded In the last 10 days, have yo u been in contact with someone who was confirmed or suspected to have Coronavirus/COVID-19? No / Unsure 07/16/2022 4:35 PM IN HOME SALES CONSULTANT documented as of this encounter Plan of Treatment Upcoming Encounters Date Type Department Care Team (Late st Contact Info) Description 10/02/2024 11:40 AM IN HOME SALES CONSULTANT Office Visit [facility] Multispecialty Care - [facility] 3 [facility] [address] [place] [address] Johnnie Lr MD [address] [facility] [address] [place] [address] 01/04/2025 9:50 AM CDT Office Visit [facility] Family Medicine - [place] [address] [place] [address] Emily [place] MD [address] [place] [address] documented as of this encounter Visit Diagnoses Not on filedocumented in this encounter Additional Health Concerns Assessment Noted Time PHQ-9 Depression Total Score: 2 05/04/20 22 9:39 AM CDT documented as of this encounter Care Teams Straight Knife Cutter Machine Relationship Specialty [place] [address] [facility]. [address] [place] [address] PCP - General FAMILY PRACTICE 09/29/21 06/08/24 [place] [address] [facility]. [facility] 70 [place] [address] RHEUMATOLOGY 09/27/20 documented as of this encounter
--- OUTSIDE RECORDS SUMMARY | 2024-08-29 09:56 | XMS_ITS | Encounter Summary ---
Author Organization [facility] Address [address] [place] [address]. [place], [place] [address] [place] [address] Care Team Providers Care Clock Assembler Name Role Phone Gladis Song MD Unavailable Thi Lugo MD Primary Care Provider [phone] Encounter Details Date Type Department Care Team (Latest Contact Info) Description 07/06/2022 Travel Social History Tobacco Use Types Packs/Day [...] on file Legal Sex Female 10:22 PM MEDICATION SPECIALIST Gender Identity Female 09/12/2021 9:51 AM MEDICATION SPECIALIST Sexual Orientation Straight 09/12/2021 9: 51 AM MEDICATION SPECIALIST COVID-19 Exposure Response Date Recorded In the last 10 days, have yo u been in contact with someone who was confirmed or suspected to have Coronavirus/COVID-19? No / Unsure 07/06/2022 2:29 PM CDT documented as of this encounter Plan of Treatment Upcoming Encounters Date Type Department Care Team (Late st Contact Info) Description 10/02/2024 11:40 AM MEDICATION SPECIALIST Office Visit [facility] Multispecialty Care - [facility] 3 [facility] [address] [place] [address] Johnnie Lr MD [address] [facility] [address] [place] [address] 01/04/2025 9:50 AM CDT Office Visit [facility] Family Medicine - [place] [address] [facility] [address] [place] [address] Emily [place] MD [address] [place] [address] documented as of this encounter Visit Diagnoses Not on filedocumented in this encounter Additional Health Concerns Assessment Noted Time PHQ-9 Depression Total Score: 2 05/04/20 9:39 AM CDT documented as of this encounter Care Teams Clock Assembler Relationship Specialty [place] [address] [facility]. [address] [place] [address] PCP - General FAMILY PRACTICE 09/29/21 06/08/24 [place] [address] [facility]. [address] [place] [address] RHEUMATOLOGY 09/27/20 documented as of this encounter
--- OUTSIDE RECORDS SUMMARY | 2024-08-29 09:56 | XMS_ITS | Encounter Summary ---
Author Organization [facility] Address [address] [place] [address]. [place], [place] [address] [place] [address] Care Team Providers Care Keyboard Operator Name Role Phone Gladis Song MD Unavailable Thi Lugo MD Primary Care Provider [phone] Encounter Details Date Type Department Care Team (Latest Contact Info) Description 05/28/2022 Travel Social History Tobacco Use Types Packs/Day [...] on file Legal Sex Female 10:22 PM SURFACE HYDROLOGIST Gender Identity Female 09/12/2021 9:51 AM SURFACE HYDROLOGIST Sexual Orientation Straight 09/12/2021 9: 51 AM SURFACE HYDROLOGIST COVID-19 Exposure Response Date Recorded In the last 10 days, have yo u been in contact with someone who was confirmed or suspected to have Coronavirus/COVID-19? No / Unsure 05/28/2022 10:01 AM CDT documented as of this encounter Plan of Treatment Upcoming Encounters Date Type Department Care Team (Late st Contact Info) Description 10/02/2024 11:40 AM SURFACE HYDROLOGIST Office Visit [facility] Multispecialty Care - [facility] 3 [facility] [address] [place] [address] Johnnie Lr MD [address] [facility] [address] [place] [address] 01/04/2025 9:50 AM CDT Office Visit [facility] Family Medicine - [place] [address] [facility] [address] [place] [address] Emily [place] MD [address] [place] [address] documented as of this encounter Visit Diagnoses Not on filedocumented in this encounter Additional Health Concerns Assessment Noted Time PHQ-9 Depression Total Score: 2 05/04/20 9:39 AM CDT documented as of this encounter Care Teams Keyboard Operator Relationship Specialty [place] [address] [facility]. [address] [place] [address] PCP - General FAMILY PRACTICE 09/29/21 06/08/24 [place] [address] [facility]. [address] [place] [address] RHEUMATOLOGY 09/27/20 documented as of this encounter
--- OUTSIDE RECORDS SUMMARY | 2024-08-29 09:56 | XMS_ITS | Encounter Summary ---
Author Organization [facility] Address [address] [place] [address]. [place], [place] [address] [place] [address] Care Team Providers Care Radioactivity Technician Name Role Phone Gladis Song MD Unavailable Thi Lugo MD Primary Care Provider [phone] Reason for Visit * Reason Onset Date Comments Other 07/10/2022 Monitor for fax Encounter Details Date Type Department Care Team (Late st Contact Info) Description 07/10/2022 Telephone [facility] Medical Group Family & Internal Medicine [address] [address] Thi Lugo MD [address] [place] [address]. [address] [place] [address] Other (Monitor for fax ) Social History Tobacco Use Types Packs/Day [...] on file Legal Sex Female 10:22 PM XRAY TECH Gender Identity Female 09/12/2021 9:51 AM XRAY TECH Sexual Orientation Straight 09/12/2021 9: 51 AM XRAY TECH COVID-19 Exposure Response Date Recorded In the last 10 days, have yo u been in contact with someone who was confirmed or suspected to have Coronavirus/COVID-19? No / Unsure 07/16/2022 4:35 PM XRAY TECH documented as of this encounter Progress Notes * Jaclyn Maximino Ziegler - 07/23/2022 1:44 PM CST Called pt let her know she can stop by and get it v/u TECH * Liliam Jon RN - 07/19/2022 9:08 AM CST Called patient and informed that Dr Lugo completed forms, however there is a place for patient tosign and date. Patient states that she will come by office to sign. Forms placed at desk director for patient. Please fax to number on form when patient signs. TECH TECH * Liliam Jon RN - 07/11/2022 4:11 PM CST Placed in Dr Lugo's folder for review TECH * Ana Sanchez - 07/11/2022 8:55 AM CST Faxed received and placed in providers folder. TECH * Ana Sanchez - 07/11/2022 8:37 AM CST [employer] called wanting to see if fax received, she faxed yesterday around noon to faxnumber [phone]. Looked through faxes received as of this morning, has not been received. It's coming from fax #[phone]. I also looked up by fax number, not received, she is refaxing. TECH * Ladonna Thomson LPN - 07/10/2022 12:49 PM CST Pt called states her insurance will be faxing a form for Dr. Lugo to sign so pt can receive a cardiac genetic test in mail Please monitor for [phone] TECH documented in this encounter Plan of Treatment Upcoming Encounters Date Type Department Care Team (Late st Contact Info) Description 10/02/2024 11:40 AM XRAY TECH Office Visit [facility] Multispecialty Care - [facility] 3 [facility] [address] [place] [address] Johnnie Lr MD 3 [facility] [address] [place], [place] [phone] 01/04/2025 9:50 AM CDT Office Visit [facility] Family Medicine - [place] [address] [place] [id number] Emily [place] MD [address] [place], [place] [phone] documented as of this encounter Visit Diagnoses Not on filedocumented in this encounter Additional Health Concerns Infection Onset Date Last Indicated Resolved Time COVID-19 Rule Out 07/16/2022 07/16/2022 07/16/2022 6:24 PM XRAY TECH Assessment Noted Time PHQ-9 Depression Total Score: 2 05/04/20 22 9:39 AM CDT documented as of this encounter Care Teams Radioactivity Technician Relationship Specialty [place] [address] [address] [place] [phone] PCP - General FAMILY PRACTICE 09/29/21 06/08/24 [place] [address] [address] [facility] [address] [place] [address] RHEUMATOLOGY 09/27/20 documented as of this encounter
--- OUTSIDE RECORDS SUMMARY | 2024-08-29 09:56 | XMS_ITS | Encounter Summary ---
Author Organization [facility] Address [address] [place] [address]. [place], [place] [address] [place] [address] Care Team Providers Care Furnace Liner Name Role Phone Gladis Song MD Unavailable Thi Lugo MD Primary Care Provider [phone] Encounter Details Date Type Department Care Team (Late st Contact Info) Description 07/06/2022 4:20 PM CDT Flu/Imm Clinic [facility] Medical Group Family & Internal Medicine [address] [address] Thi Lugo MD [address] [place] [address]. [address] [place] [address] Social History Tobacco Use Types Packs/Day [...] on file Legal Sex Female 10:22 PM INSULATION HOSEMAN Gender Identity Female 09/12/2021 9:51 AM INSULATION HOSEMAN Sexual Orientation Straight 09/12/2021 9: 51 AM INSULATION HOSEMAN COVID-19 Exposure Response Date Recorded In the last 10 days, have yo u been in contact with someone who was confirmed or suspected to have Coronavirus/COVID-19? No / Unsure 07/06/2022 2:29 PM CDT documented as of this encounter Plan of Treatment Upcoming Encounters Date Type Department Care Team (Late st Contact Info) Description 10/02/2024 11:40 AM INSULATION HOSEMAN Office Visit [facility] Mult[facility]pecialty Care - [facility] [address] [facility] [address] [place] [address] Johnnie Lr MD 3 [facility] [address] [place] [address] 01/04/2025 9:50 AM CDT Office Visit [facility] Family Medicine - [place] [address] [place] [address] Emily [place] MD [address] [place] [address] documented as of this encounter Visit Diagnoses Diagnosis Need for prophylactic vaccination against viral disease- Primary Need for prophylactic vaccination and inoculation against other viral diseases documented in this encounter Additional Health Concerns Assessment Noted Time PHQ-9 Depression Total Score: 2 05/04/20 22 9:39 AM CDT documented as of this encounter Care Teams Furnace Liner Relationship Specialty [place] [address] [address] [place] [address] PCP - General FAMILY PRACTICE 09/29/21 06/08/24 [place] [address] [facility]. [address] [place] [address] RHEUMATOLOGY 09/27/20 documented as of this encounter
--- OUTSIDE RECORDS SUMMARY | 2024-08-29 09:56 | XMS_ITS | Encounter Summary ---
Author Organization [facility] Address [address] [place] [address]. [place], [place] [id number] [place] [address] Care Team Providers Care Wastewater Treatment Engineer Name Role Phone Gladis Song MD Unavailable Thi Lugo MD Primary Care Provider [phone] Reason for Visit * Reason Comments Cough Congestion Body Aches Encounter Details Date Type Department Care Team (Late st Contact Info) Description 07/16/2022 5:11 PM MAINTENANCE SERVICE TECHNICIAN - 07/16/2022 7:20 PM [facility] Emergency [facility] Emergency Room [address] [place] [address] Juany Allen PA Cough; Congestion; Body Aches Discharge Disposition: Home or Self Care (Routine [...] on file Legal Sex Female 10:22 PM MAINTENANCE SERVICE TECHNICIAN Gender Identity Female 09/12/2021 9:51 AM MAINTENANCE SERVICE TECHNICIAN Sexual Orientation Straight 09/12/2021 9: 51 AM MAINTENANCE SERVICE TECHNICIAN COVID-19 Exposure Response Date Recorded In the last 10 days, have eliana rojas been in contact with someone who was confirmed or suspected to have Coronavirus/COVID-19? No / Unsure 07/16/2022 4:35 PM MAINTENANCE SERVICE TECHNICIAN documented as of this encounter Last Filed Vital Signs Vital Sign Reading Time Taken Comments Blood Pressure 155/71 07/16/2022 5:14 PM MAINTENANCE SERVICE TECHNICIAN Pulse 78 07/16/2022 5:14 PM MAINTENANCE SERVICE TECHNICIAN Temperature 37.1 ??C (98.8 ??F) 07/16/2022 5:14 PM CS T Respiratory Rate 20 07/16/2022 5:14 PM MAINTENANCE SERVICE TECHNICIAN Oxygen Saturation 95% 07/16/2022 5:14 PM MAINTENANCE SERVICE TECHNICIAN Inhaled Oxygen Concentration - - Weight 65.3 kg (144 lb) 07/16/2022 5:14 PM MAINTENANCE SERVICE TECHNICIAN Height - - Body Mass Index 29.08 07/06/2022 3:40 PM CDT documented in this encounter Discharge Instructions * Discharge Instructions* PITO Wolff - 07/16/2022 7:13 PM MAINTENANCE SERVICE TECHNICIAN 1) Take medications as prescribed. 2) continue albuterol inhaler as directed. 3) follow up with PCP. 4) Return to the ED with any new or worsening symptoms. TENANCE SERVICE TECHNICIAN TENANCE SERVICE TECHNICIAN * Attachments The following attachments cannot be sent through Care Everywhere. * Viral Upper Respiratory Infection Discharge Instructions, Adult ([place]) * Pneumonia Discharge Instructions, Adult ([place]) documented in this encounter Medications at Time of Discharge atorvastatin 80 MG tablet TAKE 1 TABLET BY MOUTH EVERY DAY 9 Calcium Carbonate Antacid (CALCIUM CARBONATE OR) Take 600 mg by mouth daily. ELIQUIS 5 MG tablet Take 1 tablet (5 mg total) by mouth 2 (two) times daily. 2 nitroglycerin 0.4 MG SL tablet As needed 8 vitamin C 1000 MG tablet Take 1 tablet (1,000 mg total) by mouth daily. vitamin D3, cholecalciferol, 125 mcg capsule 1 capsule (125 mcg total) daily. 5 ALBUTEROL SULFATE HFA 108 (90 Base) MCG/ACT inhalerIndication s:Shortness of breath INHALE 2 PUFFS INTO THE LUNGS EVERY 4 (FOUR) HOURS NEEDED FOR WHEEZING. 18 g 1 2 09/06/19 23 azithromycin (ZITHROMAX Z-RED) 250 MG tablet Take as directed 6 tablet 2 07/21/20 22 B-D 3CC LUER-KAILASH SYR 22GX1 22G X 1 3 ML Misc 0 02/24/20 24 bisoprolol (ZEBETA) 5 MG tablet Take 1 tablet (5 mg total) by mouth daily. 2 06/09/20 24 bisoprolol 5 MG tablet TAKE 1 TABLET BY MOUTH EVERY DAY 0 10/19/19 23 dicyclomine (BENTYL) 10 MG capsuleIndication s:Irritable bowel syndrome with diarrhea Take 1 capsule (10 mg total) by mouth 2 (two) times daily for 30 days. 60 capsule 2 2 08/05/20 22 dicyclomine (BENTYL) 10 MG capsule TAKE 1 CAPSULE (10 MG TOTAL) BY MOUTH 2 (TWO) TIMES DAILY FOR 30 DAYS. 2 06/17/20 23 Fluticasone Furoate (ARNUITY ELLIPTA) 100 MCG/ACT AEROSOL POWDER, BREATH ACTIVATEDIndicati ons:Mild persistent asthma without complication (HHS/HCC) Inhale 1 puff into the lungs daily. Rinse and spit after 90 each 3 2 03/14/20 23 folic acid (FOLVITE) 1 MG tabletIndications :Rheumatoid arthritis without rheumatoid factor, multiple sites ([facility]/HCC HHS/HCC) TAKE 1 TABLET BY MOUTH EVERY DAY 90 tablet 2 09/04/19 23 furosemide (LASIX) 20 MG tablet Take 1 tablet (20 mg total) by mouth daily. 2 06/09/20 24 furosemide 20 MG tablet TAKE 1 TABLET BY MOUTH EVERY DAY 9 10/19/19 23 gabapentin (NEURONTIN) 100 MG capsuleIndication s:Leg cramps, sleep related Take 3 capsules (300 mg total) by mouth nightly. 90 capsule 3 2 10/19/19 23 methotrexate 2.5 MG tablet 1 06/09/20 24 methylPREDNISolon RED guzman, (MEDROL DOSEPAK) 4 MG tablet Take 1 tablet (4 mg total) by mouth see administration instructions. 6 TABLETS ON DAY ONE, 5 TABLETS DAY TWO, 4 TABLETS DAY THREE, 3 TABLETS DAY FOUR, 2 TABLETS DAY FIVE, AND 1 TABLET DAY SIX 1 each 2 09/06/19 23 montelukast 10 MG tablet TAKE 1 TABLET BY MOUTH EVERY DAY EVERY NIGHT 0 09/06/19 23 PANTOPRAZOLE EC 40 MG tabletIndications :Gastroesophageal reflux disease without esophagitis TAKE 1 TABLET BY MOUTH TWICE A DAY 180 tablet 1 1 11/13/19 23 PARoxetine (PAXIL) 20 MG tabletIndications :Anxiety state TAKE 1 TABLET BY MOUTH EVERY DAY 90 tablet 2 08/20/20 22 potassium chloride CR 20 MEQ tablet TAKE 2 TABLETS EVERY MORNING AND 2 TABLETS EVERY EVENING 0 06/09/20 24 sucralfate (CARAFATE) 1 G tabletIndications :GERD without esophagitis Take 1 tablet (1 g total) by mouth 4 (four) times daily before meals and nightly for 30 days. 120 tablet 3 2 10/06/19 23 documented as of this encounter ED Notes * PITO Wolff - 07/16/2022 5:31 PM CST Images from the original note were not included. [facility] Chief Complaint Chief Complaint Patient presents with ??? Cough ??? Congestion ??? Body Aches History of Present Illness The patient is a 71-year-old female with hx of asthma, CHF, lupus who presents for evaluation of cough, congestion, sore throat, bodyaches, fatigue x 1 week. Stating sx started after getting flu and covid vaccine. Reports shortness of breath with exertion, has been using her albuterol inhaler TID. Also uses daily fluticasone inhaler. Use dayquil/nyquil. Denies fever, chest pain. Reports currentlytaking augmentin for dental abscess, stating that is getting better. Medical History ALLERGIES: Allergies Allergen Reactions ??? Latex Rash ??? Sulfa Antibiotics Swelling ??? Levofloxacin Headache and Nausea Only ??? Nitrofurantoin Headache MEDICATIONS: Prior to Admission medications Medication Sig Start Date End Date Taking? Authorizing Provider azithromycin (ZITHROMAX Z-RED) 250 MG tablet Take as directed 07/16/22 07/21/22 Yes PITO Wolff methylPREDNISolone, RED, (MEDROL DOSEPAK) 4 MG tablet Take 1 tablet (4 mg total) by mouth see administration instructions. 6 TABLETS ON DAY ONE, 5 TABLETS DAY TWO, 4 TABLETS DAY THREE, 3 TABLETS DAY FOUR, 2 TABLETS DAY FIVE, AND 1 TABLET DAY SIX 07/16/22 Yes PITO Wolff ALBUTEROL SULFATE HFA 108 (90 Base) MCG/ACT inhaler INHALE 2 PUFFS INTO THE LUNGS EVERY 4 (FOUR) HOURS NEEDED FOR WHEEZING. 03/07/22 Thi Lugo MD atorvastatin 80 MG tablet TAKE 1 TABLET BY MOUTH EVERY DAY 05/26/19 [facility] B-D 3CC LUER-KAILASH SYR 22GX1 22G X 1 3 ML Misc USE ONCE A MONTH DIRECTED WITH METHOTREXATE 11/25/19 [facility] bisoprolol (ZEBETA) 5 MG tablet Take 1 tablet by mouth daily. 06/12/22 GENERICPROVIDER, DEFAULT HISTORY bisoprolol 5 MG tablet TAKE 1 TABLET BY MOUTH EVERY DAY 03/22/20 [facility] calcium carbonate 600 MG tablet Take by mouth daily. [facility] Cholecalciferol (VITAMIN D3) 50 MCG (2000 UT) Cap take 1 by Oral route every day 11/30/14 [facility] dicyclomine (BENTYL) 10 MG capsule Take 1 capsule (10 mg total) by mouth 2 (two) times daily for 30days. 07/06/22 08/05/22 Jaclyn Frost NP ELIQUIS 5 MG tablet Take 5 mg by mouth 2 (two) times daily. 06/22/22 GENERICPROVIDER, DEFAULT HISTORY Fluticasone Furoate (ARNUITY ELLIPTA) 100 MCG/ACT AEROSOL POWDER, BREATH ACTIVATED Inhale 1 puff into the lungs daily. Rinse and spit after 05/15/22 Johnnie Lr MD folic acid (FOLVITE) 1 MG tablet TAKE 1 TABLET BY MOUTH EVERY DAY 06/04/22 Thi Lugo MD furosemide (LASIX) 20 MG tablet Take 20 mg by mouth daily. 06/22/22 GENERICPROVIDER, DEFAULT HISTORY furosemide 20 MG tablet TAKE 1 TABLET BY MOUTH EVERY DAY 06/16/19 [facility] gabapentin (NEURONTIN) 100 MG capsule Take 3 capsules (300 mg total) by mouth nightly. 07/06/22 Thi Lugo MD methotrexate 2.5 MG tablet 08/17/21 [facility] montelukast 10 MG tablet TAKE 1 TABLET BY MOUTH EVERY DAY EVERY NIGHT 02/16/20 [facility] nitroglycerin 0.4 MG SL tablet May repeat dose every 5 minutes for up to 3 doses total. 05/23/18 [facility] PANTOPRAZOLE EC 40 MG tablet TAKE 1 TABLET BY MOUTH TWICE A DAY 09/09/20 Gabriel Persaud MD PARoxetine (PAXIL) 20 MG tablet TAKE 1 TABLET BY MOUTH EVERY DAY 05/25/22 Thi Lugo MD potassium chloride CR 20 MEQ tablet TAKE 2 TABLETS EVERY MORNING AND 2 TABLETS EVERY EVENING 01/04/20[facility] sucralfate (CARAFATE) 1 G tablet Take 1 tablet (1 g total) by mouth 4 (four) times daily before meals and nightly for 30 days. 07/06/22 08/05/22 Jaclyn Frost NP vitamin C 1000 MG tablet Take 1,000 mg by mouth daily. [facility] PAST MEDICAL HISTORY: Past Medical History: Diagnosis Date ??? Anxiety ??? Arthritis ??? Asthma ??? Hypertension ??? Lupus (CMS/HCC) ??? Sleep apnea ??? Stroke (CMS/HCC) PAST SURGICAL HISTORY: Past Surgical History: Procedure Laterality Date ??? APPENDECTOMY ??? SECTION ??? HC TRIGGER FINGER RELEASE ??? HYSTERECTOMY ??? TONSILLECTOMY FAMILY HISTORY: Family History Problem Relation Name Age of Onset ??? Heart Disease Mother ??? TB Father ??? Other (lungs) Father SOCIAL HISTORY: Social History Tobacco Use ??? Smoking status: Never ??? Smokeless tobacco: Never Vaping Use ??? Vaping Use: Never used Substance Use Topics ??? Alcohol use: Yes Comment: up 2 glasses of wine/month ??? Drug use: Never Review of Systems Review of Systems Constitutional: Positive for appetite change (decreased) and fatigue. Negative for fever. HENT: Positive for congestion and sore throat. Negative for rhinorrhea. Eyes: Negative for photophobia and pain. Respiratory: Positive for cough and shortness of breath. Cardiovascular: Negative for chest pain and palpitations. Gastrointestinal: Negative for abdominal pain, nausea and vomiting. Endocrine: Negative. Genitourinary: Negative for dysuria and flank pain. Musculoskeletal: Negative for back pain and neck pain. Skin: Negative for rash and wound. Allergic/Immunologic: Negative. Neurological: Positive for headaches. Negative for dizziness and syncope. Hematological: Negative. Psychiatric/Behavioral: Negative for hallucinations and suicidal ideas. Physical Exam Filed Vitals: 07/16/22 1714 BP: (!) 155/71 Pulse: 78 Resp: 20 Temp: 98.8 ??F (37.1 ??C) TempSrc: Oral SpO2: 95% Weight: 65.3 kg (144 lb) Physical Exam Vitals and nursing note reviewed. Constitutional: Appearance: Normal appearance. She is normal weight. HENT: Head: Normocephalic and atraumatic. Right Ear: Tympanic membrane normal. Left Ear: Tympanic membrane normal. Nose: Rhinorrhea present. Mouth/Throat: Mouth: Mucous membranes are moist. Pharynx: Oropharynx is clear. Uvula midline. No pharyngeal swelling, oropharyngeal exudate, posterior oropharyngeal erythema or uvula swelling. Comments: No face or neck swelling Eyes: Conjunctiva/sclera: Conjunctivae normal. Cardiovascular: Rate and Rhythm: Normal rate and regular rhythm. Pulses: Normal pulses. Heart sounds: Normal heart sounds. Pulmonary: Effort: Pulmonary effort is normal. No respiratory distress. Breath sounds: Wheezing (mild throughout lung madrigal) present. Abdominal: General: Abdomen is flat. Musculoskeletal: General: Normal range of motion. Cervical back: Normal range of motion and neck supple. Right lower leg: No edema. Left lower leg: No edema. Lymphadenopathy: Cervical: No cervical adenopathy. Skin: General: Skin is warm. Capillary Refill: Capillary refill takes less than 2 seconds. Neurological: General: No focal deficit present. Mental Status: She is alert. Psychiatric: Mood and Affect: Mood normal. Thought Content: Thought content normal. Judgment: Judgment normal. Diagnostic Studies / Procedures ELECTROCARDIOGRAMS: No results found for this visit on 07/16/22. LABORATORY STUDIES: Results for orders placed or performed during the hospital encounter of 07/16/22 CORONAVIRUS (COVID-19) ANTIGEN [RAPID IN HOUSE TEST] Specimen: NASAL Result Value Ref Range CORONAVIRUS ANTIGEN IA NEGATIVE NEGATIVE Specimen Type NASAL FIRST TEST NO EMPLOYED IN HEALTHCARE NO SYMPTOMATIC DEFINED BY CDC YES DATE OF SYMPTOM ONSET 20220709 HOSPITALIZATION STATUS NO RESIDENT OF [facility] NO INFLUENZA A & B Specimen: NASOPHARYNGEAL SWAB Result Value Ref Range Specimen Type NASOPHARYNGEAL SWAB INFLUENZA A NEGATIVE NEGATIVE INFLUENZA B NEGATIVE NEGATIVE IMAGING STUDIES XR CHEST PA+LAT Final Result by User, [id number] (07/16 1852) INDICATION: Cough, dyspnea COMPARISON: Chest radiograph, 06/09/2022 TECHNIQUE: Single PA and lateral images of the chest. FINDINGS: No pneumothorax, pleural effusion, or focal airspace consolidation. Pulmonary vasculature cardiac silhouette within normal limits. Calcified thoracic aorta. No acute osseous abnormality. IMPRESSION: No acute cardiopulmonary process. Referred By: Interpreted By: Israel Gutiérrez MD, 07/16/2022 6:46 PM ED Course / Medical Decision Making MDM Number of Diagnoses or Management Options Asthma exacerbation, mild Atypical pneumonia URI (upper respiratory infection) Diagnosis management comments: Pt with flu like symptoms x 1 week. Wheezing noted. Pt used albuterol inhaler just prior to arrival, hold off on albuterol here. No acute distress. Vitals stable. Negative covid/flu. CXR with no acute findings and pt with no BLE edema, not concerning for CHF exacerbation. Suspect asthma exacerbation from URI, possible atypical pna. Pt on Augmentin for dental condition. No evidence of infection spread, will give zpak to cover for atypical pna. Plan to discharge with medrol dose pack, follow up with PCP. Strict verbal return precautions reviewed. Patient expresses verbal understanding and agreement with plan. All questions answered to the best of my ability. Teachback performed by patient. Nontoxic exit exam. Patient discharged home in stable condition. Amount and/or Complexity of Data Reviewed Clinical lab tests: ordered and reviewed Tests in the radiology section of CPT??: ordered and reviewed ED Course as of 07/16/221916Jul 16, 2022 185 XR CHEST PA+LAT [GJ] 185 XR CHEST PA+LAT No acute cardiopulmonary process. [CC] ED Course User Index [CC] PITO Wolff [GJ] Lamar Hdez MD Pt is [facility] pt. Medications - No data to display Clinical Impression Asthma exacerbation, mild (Primary) URI (upper respiratory infection) Atypical pneumonia Current Discharge Medication List START taking these medications Details azithromycin (ZITHROMAX Z-RED) 250 MG tablet Take as directed Qty: 6 tablet, Refills: 0 Class: Eprescribe Pharmacy: [facility]/pharmacy #[id number] [place] [address] [address] (Ph #: [phone]) methylPREDNISolone, RED, (MEDROL DOSEPAK) 4 MG tablet Take 1 tablet (4 mg total) by mouth see administration instructions. 6 TABLETS ON DAY ONE, 5 TABLETS DAY TWO, 4 TABLETS DAY THREE, 3 TABLETS DAY FOUR, 2 TABLETS DAY FIVE, AND 1 TABLET DAY SIX Qty: 1 each, Refills: 0 Class: Eprescribe Pharmacy: [facility]/pharmacy #[address] [place] [address] [address] (Ph #: [phone]) Disposition: Discharge Follow-[place]: [place] [address] [facility]. [address] [place] [phone] Call in 3 days As needed PITO WOLFF 07/16/2022 PITO Wolff 07/16/221916 PITO Wolff 07/16/221920 Cosigned by Carie Qiu MD at 07/16/2022 10:23 PM MAINTENANCE SERVICE TECHNICIAN TENANCE SERVICE TECHNICIAN TENANCE SERVICE TECHNICIAN TENANCE SERVICE TECHNICIAN documented in this encounter Plan of Treatment Upcoming Encounters Date Type Department Care Team (Late st Contact Info) Description 10/02/2024 11:40 AM MAINTENANCE SERVICE TECHNICIAN Office Visit [facility] Multispecialty [facility] - [facility] [address] [facility], [address] [place] [address] Johnnie Lr MD [address] [address] 01/04/2025 9:50 AM CDT Office Visit [facility] Family Medicine - [place] [address] [place] [address] Emily Jordan MD [address] [place], [place] [address] documented as of this encounter Procedures Procedure Name Priority Date/Time Associated Diagnosis Comments CORONAVIRUS (COVID-19) ANTIGEN DIRECT OPTICAL STAT 07/16/2022 5:57 PM MAINTENANCE SERVICE TECHNICIAN INFLUENZA A & B STAT 07/16/2022 5:57 PM MAINTENANCE SERVICE TECHNICIAN XR CHEST PA+LAT STAT 07/16/2022 5:43 PM MAINTENANCE SERVICE TECHNICIAN documented in this encounter Results * INFLUENZA A & B (07/16/2022 5:57 PM MAINTENANCE SERVICE TECHNICIAN) SPECIMEN TYPE NASOPHARYNGEAL SWAB 07/16/2022 6:07 PM MAINTENANCE SERVICE TECHNICIAN [facility] INFLUENZA A NEGATIVE NEGATIVE 07/16/2022 6:25 PM MAINTENANCE SERVICE TECHNICIAN [facility] INFLUENZA B NEGATIVE NEGATIVE 07/16/2022 6:25 PM MAINTENANCE SERVICE TECHNICIAN [facility] NASOPHARYNGEAL SWAB / Unknown 07/16/2022 5:57 PM MAINTENANCE SERVICE TECHNICIAN Juany [facility] GENER[facility] SONYA BROWN Final Result [facility] [address] [place] [address], [place] [phone] * CORONAVIRUS (COVID-19) ANTIGEN [RAPID IN HOUSE TEST] (07/16/2022 5:57 PM MAINTENANCE SERVICE TECHNICIAN) Pathologist [facility] CORONAVIRUS ANTIGEN IA NEGATIVE NEGATIVE 07/16/2022 6:24 PM MAINTENANCE SERVICE TECHNICIAN [facility] Comment: NEGATIVE RESULTS DO NOT RULE OUT SARS-COV-2 INFECTION AND SHOULD NOT BE USED THE SOLE BASIS FOR TREATMENT OR PATIENT MANAGEMENT DECISIONS, INCLUDING INFECTION CONTROL DECISIONS. NEGATIVE RESULTS SHOULD BE CONSIDERED IN THE CONTEXT OF A PATIENT'S RECENT EXPOSURES, HISTORY AND THE PRESENCE OF CLINICAL SIGNS AND SYMPTOMS CONSISTENT WITH COVID 19. THIS TEST HAS BEEN AUTHORIZED BY THE FDA UNDER AN EMERGENCY USE AUTHORIZATION (EUA) FOR USE BY AUTHORIZED LABORATORIES. SPECIMEN TYPE NASAL 07/16/2022 5:57 PM MAINTENANCE SERVICE TECHNICIAN [facility] FIRST TEST NO 07/16/2022 5:57 PM MAINTENANCE SERVICE TECHNICIAN [facility] EMPLOYED IN HEALTHCARE NO 07/16/2022 5:57 PM MAINTENANCE SERVICE TECHNICIAN [facility] SYMPTOMATIC DEFINED BY CDC YES 07/16/2022 5:57 PM MAINTENANCE SERVICE TECHNICIAN [facility] DATE OF SYMPTOM ONSET 2022070907/16/2022 5:57 PM MAINTENANCE SERVICE TECHNICIAN [facility] HOSPITALIZATION STATUS NO 07/16/2022 5:57 PM MAINTENANCE SERVICE TECHNICIAN [facility] RESIDENT OF [facility] NO 07/16/2022 5:57 PM MAINTENANCE SERVICE TECHNICIAN [facility] NASAL NASAL STRUCTURE / Unknown 07/16/2022 5:57 PM MAINTENANCE SERVICE TECHNICIAN us Juany [facility] - GENERAL ORDRafa BROWN Final Result [facility] [address] [place] [address], * XR CHEST PA+LAT (07/16/2022 5:43 PM MAINTENANCE SERVICE TECHNICIAN) Anatomical Region Laterality Modality Chest Radiographic Ashley ging 07/16/2022 6:46 PM MAINTENANCE SERVICE TECHNICIAN Impressions 07/16/2022 6:47 PM MAINTENANCE SERVICE TECHNICIAN IMPRESSION: No acute cardiopulmonary process. Referred By: ?? Interpreted By: Israel Gutiérrez MD, 07/16/2022 6:46 PM Narrative 07/16/2022 6:47 PM MAINTENANCE SERVICE TECHNICIAN INDICATION: Cough, dyspnea COMPARISON: Chest radiograph, 06/09/2022 TECHNIQUE: Single PA and lateral images of the chest. FINDINGS: No pneumothorax, pleural effusion, or focal airspace consolidation. Pulmonary vasculature cardiac silhouette within normal limits. Calcified thoracic aorta. No acute osseous abnormality. Procedure Note Israel Gutiérrez MD - 07/16/2022 INDICATION: Cough, dyspnea COMPARISON: Chest radiograph, 06/09/2022 TECHNIQUE: Single PA and lateral images of the chest. FINDINGS: No pneumothorax, pleural effusion, or focal airspace consolidation.Pulmonary vasculature cardiac silhouette within normal limits. Calcifiedthoracic aorta. No acute osseous abnormality. IMPRESSION: No acute cardiopulmonary process. Referred By: Interpreted By: Israel Gutiérrez MD, 07/16/2022 6:46 PM Juany [facility] Final Resul t documented in this encounter Visit Diagnoses Diagnosis Asthma exacerbation, mild (HHS/HCC)- Primary Unspecified asthma, with exacerbation URI (upper respiratory infection) Acute upper respiratory infections of unspecified site Atypical pneumonia Pneumonia, organism unspecified documented in this encounter Additional Health Concerns Infection Onset Date Last Indicated Resolved Time COVID-19 Rule Out 07/16/2022 07/16/2022 07/16/2022 6:24 PM MAINTENANCE SERVICE TECHNICIAN Assessment Noted Time PHQ-9 Depression Total Score: 2 05/04/20 22 9:39 AM CDT documented as of this encounter Care Teams Wastewater Treatment Engineer Relationship Specialty [place] [address] [facility] [place] [address] PCP - General FAMILY PRACTICE 09/29/21 06/08/24 [place] [address] [place] [address] RHEUMATOLOGY 09/27/20 documented as of this encounter
--- OUTSIDE RECORDS SUMMARY | 2024-08-29 09:56 | XMS_ITS | Encounter Summary ---
Author Organization [facility] Address [address] [place] [address]. [place], [place] [address] [place] [address] Care Team Providers Care Solutions Engineer Name Role Phone Gladis Song MD Unavailable Thi Lugo MD Primary Care Provider [phone] Reason for Visit * Reason Comments New Patient Stomach pain left si de pcp wanted her to see GI somedays she goes to [facility] often but not diarrhea just regular bowel movements, [facility]? [facility] not sure though--personal hx of colon polyps, no colon cancer in family sometimes severe heartburn * Consultation/Treatment (Routine) - Closed Specialty Diagnoses / Procedures Referred By Contact Referred To Contact Nurse Practitioner Family / GASTROENTEROLOGY Diagnoses GERD without [place]ophagitis [place] [address] [address] [facility] [address] [place] [address] Phone: tel: fax: Jaclyn Frost NP 3 [facility] [address] [place] [address] Phone: tel:[phone] fax:[phone] Referral ID Status Reason Start Date Expiration Date Visits Re quested Visits Authorized [id number] Closed 05/04/2022 06/05/2023 100 100 Encounter Details Date Type Department Care Team (Latest Contact Info) Description 07/06/2022 2:20 PM CDT Office Visit [facility] [place] [address] [place] [address] Jaclyn Frost, FELICIA 3 [facility] [address] [place] [address] New Patient (Stomach pain left side pcp wanted her to see GI somedays she goes to [facility] often but not diarrhea just regular bowel movements, [facility]? [facility] not sure though--personal hx of colon polyps, no colon cancer in family sometimes severe heartburn) Social History Tobacco Use Types Packs/Day Years [...] on file Legal Sex Female 10:22 PM RAILROAD EMERGENCY SERVICES MANAGER Gender Identity Female 09/12/2021 9:51 AM RAILROAD EMERGENCY SERVICES MANAGER Sexual Orientation Straight 09/12/2021 9: 51 AM RAILROAD EMERGENCY SERVICES MANAGER COVID-19 Exposure Response Date Recorded In the last 10 days, have yo u been in contact with someone who was confirmed or suspected to have Coronavirus/COVID-19? No / Unsure 07/06/2022 2:29 PM CDT documented as of this encounter Last Filed Vital Signs Vital Sign Reading Time Taken Comments Blood Pressure 124/64 07/06/2022 3:09 PM CDT Pulse 78 07/06/2022 3:09 PM CDT Temperature 36.2 ??C (97.2 ??F) 07/06/2022 3:09 PM CD T Respiratory Rate - - Oxygen Saturation 96% 07/06/2022 3:09 PM CDT Inhaled Oxygen Concentration - - Weight 65.5 kg (144 lb 6.4 oz) 07/06/2022 3:09 P M CDT Height 149.9 cm (4' 11 ) 07/06/2022 3:09 PM CDT Body Mass Index 29.17 07/06/2022 3:09 PM CDT documented in this encounter Patient Instructions * Attachments The following attachments cannot be sent through Care Everywhere. * Acid Reflux and Gastroesophageal Reflux Disease in Adults ([place]) documented in this encounter Progress Notes * Jaclyn Frost, IT SALES CONSULTANT - 07/06/2022 2:20 PM CDT Images from the original note were not included. GASTROENTEROLOGY CONSULT 07/06/2022 4:29 PM Reason for Visit: New Patient (Stomach pain left side pcp wanted her to see GI somedays [facility] but not diarrhea just regular bowel movements, [facility]? [facility] not sure though--personal hx of colon polyps, no colon cancer in family sometimes severe heartburn) History of Present Illness: Chio Orantes is a 71-year-old female who presents today to establish care for management of GERD and IBS. Referral placed by PCP Dr. Lugo. Patient has chronic GERD with h/o peptic ulcer. Reports intermittent esophageal burning, however has been controlling her GERD symptoms with pantoprazole 40 mg daily and sucralfate 1 G qid prescribedby her PCP. Last Oct she had an exacerbation and needed to take pantoprazole BID for a short while.Denies current GERD symptoms or dysphagia. She underwent a swallow study last January that was normal. Reports intermittent abdominal cramping followed by loose stool. Has an episode once weekly, will have several BM a day during an episode. Is noticing dairy products trigger both heartburn and loose stool. Is modifying her diet to reduce both GERD symptoms and diarrhea episodes with success. Has a BM daily, typically stool is soft and formed. Denies melena, hematochezia, constipation, abdominal pain, or N/V. Appetite appropriate. No unexplained weight loss. She had both an EGD and colonoscopy last year. No hx of hepatitis infection, no prior tattoos. No blood transfusions NSAID/Anticoagulant use: Eliquis 5 mg Denies hx of tobacco use. No alcohol use, denies hx of alcohol abuse. No drug use. Prior abdominal surgeries: appendectomy, hysterectomy, Family history of GI malignancies, Celiac disease, IBD, or colon polyps: None EGD: 2020 through [facility] Colonoscopy: 2020 through [facility] with colon polyps, 5 yr recommended repeat screening Past Medical History: Diagnosis Date ??? Anxiety ??? Arthritis ??? Asthma ??? Hypertension ??? Lupus (CMS/HCC) ??? Sleep apnea ??? Stroke (CMS/HCC) Past Surgical History: Procedure Laterality Date ??? APPENDECTOMY ??? SECTION ??? HC TRIGGER FINGER RELEASE ??? HYSTERECTOMY ??? TONSILLECTOMY Family History Problem Relation Name Age of Onset ??? Heart Disease Mother ??? TB Father ??? Other (lungs) Father Social History Tobacco Use ??? Smoking status: Never Smoker ??? Smokeless tobacco: Never Used Vaping Use ??? Vaping Use: Never used Substance Use Topics ??? Alcohol use: Yes Comment: up 2 glasses of wine/month ??? Drug use: Never Outpatient Medications Marked as Taking for the 07/06/22 encounter (Office Visit) with Jaclyn Frost NP Medication Sig Dispense Refill ??? ALBUTEROL SULFATE HFA 108 (90 Base) MCG/ACT inhaler INHALE 2 PUFFS INTO THE LUNGS EVERY 4 (FOUR) HOURS NEEDED FOR WHEEZING. 18 g 1 ??? atorvastatin 80 MG tablet TAKE 1 TABLET BY MOUTH EVERY DAY ??? bisoprolol (ZEBETA) 5 MG tablet Take 1 tablet by mouth daily. ??? bisoprolol 5 MG tablet TAKE 1 TABLET BY MOUTH EVERY DAY ??? calcium carbonate 600 MG tablet Take by mouth daily. ??? Cholecalciferol (VITAMIN D3) 50 MCG (2000 UT) Cap take 1 by Oral route every day ??? dicyclomine (BENTYL) 10 MG capsule Take 1 capsule (10 mg total) by mouth 2 (two) times daily for 30 days. 60 capsule 2 ??? ELIQUIS 5 MG tablet Take 5 mg by mouth 2 (two) times daily. ??? Fluticasone Furoate (ARNUITY ELLIPTA) 100 MCG/ACT AEROSOL POWDER, BREATH ACTIVATED Inhale 1 puff into the lungs daily. Rinse and spit after 90 each 3 ??? folic acid (FOLVITE) 1 MG tablet TAKE 1 TABLET BY MOUTH EVERY DAY 90 tablet 0 ??? furosemide 20 MG tablet TAKE 1 TABLET BY MOUTH EVERY DAY ??? [DISCONTINUED] gabapentin (NEURONTIN) 100 MG capsule Take 2 capsules (200 mg total) by mouth nightly. 60 capsule 2 ??? montelukast 10 MG tablet TAKE 1 TABLET BY MOUTH EVERY DAY EVERY NIGHT ??? nitroglycerin 0.4 MG SL tablet May [...] MORNING AND 2 TABLETS EVERY EVENING ??? sucralfate (CARAFATE) 1 G tablet Take 1 tablet (1 g total) by mouth 4 (four) times daily beforemeals and nightly for 30 days. 120 tablet 3 ??? vitamin C 1000 MG tablet Take 1,000 mg by mouth daily. Allergies Allergen Reactions ??? Latex Rash ??? Sulfa Antibiotics Swelling ??? Levofloxacin Headache and Nausea Only ??? Nitrofurantoin Headache REVIEW OF SYSTEMS: Review of Systems PHYSICAL EXAM: Filed Vitals: 07/06/22 1509 BP: 124/64 Pulse: 78 Temp: 97.2 ??F (36.2 ??C) SpO2: 96% Weight: 65.5 kg (144 lb 6.4 oz) Height: 4' 11 (1.499 m) Wt Readings from Last 1 Encounters: 07/06/22 65.3 kg (144 lb) PHYSICAL EXAM Labs: Lab Results Component Value Date WBC 4.1 (L) 05/23/2022 RBC 4.46 05/23/2022 HGB 13.1 05/23/2022 HCT 42.1 05/23/2022 RDW 14.8 (H) 05/23/2022 PLT 214 05/23/2022 NA 141 01/09/2022 K 4.6 01/09/2022 CL 102 01/09/2022 AGAP 7.7 01/09/2022 GLU 110 (H) 01/09/2022 BUN 16 01/09/2022 CR 0.69 01/09/2022 GFRNON 70 (L) 09/25/2021 GFR 82 (L) 09/25/2021 CA 8.9 01/09/2022 ALB 3.4 01/09/2022 ALT 34 01/09/2022 AST 34 01/09/2022 ALKP 106 01/09/2022 Imagin02/23/22 Swallow study 1. 0.6 minutes OF FLUOROSCOPIC TIME WAS UTILIZED. 4 cine loop films obtained.. 2. Multiple consistencies of barium were given to the patient with speech pathology present.. There is no evidence of tracheal aspiration or tracheal penetration. Endoscopies: 2020 EGD and Colonoscopy through [facility] with colon polyps, 5 yr recommended repeat screening Assessment 1. Gastroesophageal reflux disease, unspecified whether esophagitis present 2. Irritable bowel syndrome with diarrhea - dicyclomine (BENTYL) 10 MG capsule; Take 1 capsule (10 mg total) by mouth 2 (two) times daily for30 days. Dispense: 60 capsule; Refill: 2 3. GERD without esophagitis - sucralfate (CARAFATE) 1 G tablet; Take 1 tablet (1 g total) by mouth 4 (four) times daily before meals and nightly for 30 days. Dispense: 120 tablet; Refill: 3 4. Abdominal cramping Recommendations/Plan: ?? Continue Pantoprazole 40 mg daily and Sucralfate 1 G qid to control GERD symptoms ?? Anti-reflux measures discussed. Maintaining a healthy weight can reduce symptoms. Reviewed dietary modifications such as avoiding food triggers (often spicy foods, fatty or fried foods, chocolate,caffeine and/or carbonated beverages). Recommend patient elevate head of bed if experiencing nocturnal laryngeal symptoms. ?? Initiate dicyclomine 10 mg 1-2 times as needed for IBS symptoms ?? Continue to work with diet modifications to reduce symptoms ?? It is recommended to consume 20-35 grams of fiber per day and at least 64 ounces/2 liters of water per day. ?? All questions answered ?? More recommendations to follow endoscopic evaluation ?? Co-morbidities: HTN, lupus, AZUL, h/o CVA, arthritis, asthma Risks/Benefits/Options: Risks, benefits and alternatives of the procedure(s) were discussed which can include but are not limited to: discomfort, missing lesions, allergic or adverse reaction to the sedation, perforation ofthe bowel or upper GI tract which may require hospitalization and surgery, bleeding, infection, aspiration. All questions were answered, patient is in agreement to proceed as planned. Orders placed this encounter: Orders Placed This Encounter ??? ELIQUIS 5 MG tablet ??? bisoprolol (ZEBETA) 5 MG tablet ??? DISCONTD: apixaban (ELIQUIS) 5 MG tablet ??? sucralfate (CARAFATE) 1 G tablet ??? dicyclomine (BENTYL) 10 MG capsule Jaclyn Frost NP Gastroenterology documented in this encounter Plan of Treatment Upcoming Encounters Date Type Department Care Team (Late st Contact Info) Description 10/02/2024 11:40 AM RAILROAD EMERGENCY SERVICES MANAGER Office Visit [facility] Multispecialty Care - [facility] [address] [facility] [place] [id number] Johnnie Lr MD 3 [facility] [address] [place] [address] 01/04/2025 9:50 AM CDT Office Visit [facility] Family Medicine - [place] [address] [facility] [address] [place] [address] Emily Jordan MD [address] [place], [place] [address] documented as of this encounter Visit Diagnoses Diagnosis Gastroesophageal reflux disease, unspecified whether esophagitis present- Primary Irritable bowel syndrome with diarrhea Irritable bowel syndrome GERD without esophagitis Esophageal reflux Abdominal cramping Abdominal pain, unspecified site documented in this encounter Additional Health Concerns Assessment Noted Time PHQ-9 Depression Total Score: 2 05/04/20 22 9:39 AM CDT documented as of this encounter Care Teams Solutions Engineer Relationship Specialty [place] [address] [facility] [address] [place] [address] PCP - General FAMILY PRACTICE 09/29/21 06/08/24 [place] [address] [place] [address] RHEUMATOLOGY 09/27/20 documented as of this encounter
--- OUTSIDE RECORDS SUMMARY | 2024-08-29 09:56 | XMS_ITS | Encounter Summary ---
Author Organization [facility] Address [address] [place] [address]. [place], [place] [address] [place] [address] Care Team Providers Care Gag Writer Name Role Phone Gladis Song MD Unavailable Thi Lugo MD Primary Care Provider [phone] Encounter Details Date Type Department Care Team (Latest Contact Info) Description 07/16/2022 Travel Social History Tobacco Use Types Packs/Day [...] on file Legal Sex Female 10:22 PM CRM ANALYST Gender Identity Female 09/12/2021 9:51 AM CRM ANALYST Sexual Orientation Straight 09/12/2021 9: 51 AM CRM ANALYST COVID-19 Exposure Response Date Recorded In the last 10 days, have yo u been in contact with someone who was confirmed or suspected to have Coronavirus/COVID-19? No / Unsure 07/16/2022 4:35 PM CRM ANALYST documented as of this encounter Plan of Treatment Upcoming Encounters Date Type Department Care Team (Late st Contact Info) Description 10/02/2024 11:40 AM CRM ANALYST Office Visit [facility] Multispecialty Care - [facility] [address] [facility] [place] [address] Johnnie Lr MD [address] [facility] [address] [place] [address] 01/04/2025 9:50 AM CDT Office Visit [facility] - [place] [address] [place] [address] Emily Jordan MD [address] [place] [address] documented as of this encounter Visit Diagnoses Not on filedocumented in this encounter Additional Health Concerns Infection Onset Date Last Indicated Resolved Time COVID-19 Rule Out 07/16/2022 07/16/2022 07/16/2022 6:24 PM CRM ANALYST Assessment Noted Time PHQ-9 Depression Total Score: 2 05/04/20 9:39 AM CDT documented as of this encounter Care Teams Gag Writer Relationship Specialty [place] [address] [facility] [place] [address] PCP - General FAMILY PRACTICE 09/29/21 06/08/24 [place] [address] [facility] [place] [address] RHEUMATOLOGY 09/27/20 documented as of this encounter
--- OUTSIDE RECORDS SUMMARY | 2024-08-29 09:56 | XMS_ITS | Encounter Summary ---
Author Organization [facility] Address [address] [place] [address]. [place], [place] [address] [place] [address] Care Team Providers Care Foaming Machine Operator Name Role Phone Gladis Song MD Unavailable Thi Lugo MD Primary Care Provider [phone] Encounter Details Date Type Department Care Team (Latest Contact Info) Description 09/06/2022 Travel Social History Tobacco Use Types Packs/Day [...] on file Legal Sex Female 10:22 PM QUEEN PRODUCER Gender Identity Female 09/12/2021 9:51 AM QUEEN PRODUCER Sexual Orientation Straight 09/12/2021 9: 51 AM QUEEN PRODUCER COVID-19 Exposure Response Date Recorded In the last 10 days, have yo u been in contact with someone who was confirmed or suspected to have Coronavirus/COVID-19? No / Unsure 09/06/2022 9:03 AM QUEEN PRODUCER documented as of this encounter Plan of Treatment Upcoming Encounters Date Type Department Care Team (Late st Contact Info) Description 10/02/2024 11:40 AM QUEEN PRODUCER Office Visit [facility] Multispecialty [address] [place] [address] Johnnie Lr MD [address] [facility] [address] [place] [address] 01/04/2025 9:50 AM CDT Office Visit [facility] Family Medicine - [place] [address] [place] [address] Emily Jordan MD [address] [place], [place] [address] documented as of this encounter Visit Diagnoses Not on filedocumented in this encounter Additional Health Concerns Assessment Noted Time PHQ-9 Depression Total Score: 2 05/04/20 22 9:39 AM CDT documented as of this encounter Care Teams Foaming Machine Operator Relationship Specialty [place] [address] [facility] [place] [address] PCP - General FAMILY PRACTICE 09/29/21 06/08/24 [place] [address] [facility] [place] [address] RHEUMATOLOGY 09/27/20 documented as of this encounter
--- OUTSIDE RECORDS SUMMARY | 2024-08-29 09:56 | XMS_ITS | Encounter Summary ---
Author Organization [facility] Address [address] [place] [address]. [place], [place] [address] [place] [address] Care Team Providers Care Chocolate Maker Name Role Phone Gladis Song MD Unavailable Thi Lugo MD Primary Care Provider Reason for Visit * Reason Onset Date Comments Other 09/20/2022 Encounter Details Date Type Department Care Team (Late st Contact Info) Description 09/20/2022 Telephone [facility] Family & Internal Medicine [address] [address] Thi Lugo MD [address] [place] [address]. [address] [place] [address] Other Social History Tobacco Use Types Packs/Day [...] on file Legal Sex Female 10:22 PM GENETICIST Gender Identity Female 09/12/2021 9:51 AM GENETICIST Sexual Orientation Straight 09/12/2021 9: 51 AM GENETICIST COVID-19 Exposure Response Date Recorded In the last 10 days, have yo u been in contact with someone who was confirmed or suspected to have Coronavirus/COVID-19? No / Unsure 09/06/2022 9:03 AM GENETICIST documented as of this encounter Progress Notes * Ladonna Thomson LPN - 09/20/2022 1:45 PM CST [place] called Immunodeficency test does not enough DX Codes She fax info to our protective services officer said she gave Dr. Lugo those forms for additional codes and will fax them back as soon as MD has a chance to complete informed caller no V/U Not request to call back TICIST documented in this encounter Plan of Treatment Upcoming Encounters Date Type Department Care Team (Late st Contact Info) Description 10/02/2024 11:40 AM GENETICIST Office Visit [facility] Multispecialty Care - [facility] [address] [facility] [place] [address] Johnnie Lr MD [address] [facility] [address] [place] [address] 01/04/2025 9:50 AM CDT Office Visit [facility] Family Medicine - [place] [address] [facility] [address] [place] [address] Emily Jordan MD [address] [place] [address] documented as of this encounter Visit Diagnoses Not on filedocumented in this encounter Additional Health Concerns Assessment Noted Time PHQ-9 Depression Total Score: 2 05/04/20 22 9:39 AM CDT documented as of this encounter Care Teams Chocolate Maker Relationship Specialty [place] [address] [address] [place], [place] [address] PCP - General FAMILY PRACTICE 09/29/21 06/08/24 [place] [address] [facility] [address] RHEUMATOLOGY 09/27/20 documented as of this encounter
--- OUTSIDE RECORDS SUMMARY | 2024-08-29 09:56 | XMS_ITS | Encounter Summary ---
Author Organization [facility] Address [address] [place] [address]. [place], [place] [id number] [place] [address] Care Team Providers Care Curve Saw Operator Name Role Phone Gladis Song MD Unavailable Thi Lugo MD Primary Care Provider [phone] Reason for Visit * Reason Comments Leg Pain 2 month f/u Encounter Details Date Type Department Care Team (Late st Contact Info) Description 07/06/2022 3:00 PM CDT Office Visit [facility] Family & Internal Medicine [address] [address] Thi Lugo MD [address] [place] [address]. [address] [place] [address] Leg Pain (2 month f/u ) Social History Tobacco Use Types Packs/Day [...] on file Legal Sex Female 10:22 PM ECOLOGICAL TECHNICAL OFFICER Gender Identity Female 09/12/2021 9:51 AM ECOLOGICAL TECHNICAL OFFICER Sexual Orientation Straight 09/12/2021 9: 51 AM ECOLOGICAL TECHNICAL OFFICER COVID-19 Exposure Response Date Recorded In the last 10 days, have yo u been in contact with someone who was confirmed or suspected to have Coronavirus/COVID-19? No / Unsure 07/06/2022 2:29 PM CDT documented as of this encounter Last Filed Vital Signs Vital Sign Reading Time Taken Comments Blood Pressure 117/69 07/06/2022 3:40 PM CDT Pulse 73 07/06/2022 3:40 PM CDT Temperature 37.3 ??C (99.2 ??F) 07/06/2022 3:40 PM CD T Respiratory Rate 20 07/06/2022 3:40 PM CDT Oxygen Saturation 97% 07/06/2022 3:40 PM CDT Inhaled Oxygen Concentration - - Weight 65.3 kg (144 lb) 07/06/2022 3:40 PM CDT Height 149.9 cm (4' 11 ) 07/06/2022 3:40 PM CDT Body Mass Index 29.08 07/06/2022 3:40 PM CDT documented in this encounter Progress Notes * Thi Lugo MD - 07/06/2022 3:00 PM CDT Reason for Visit: Leg Pain (2 month f/u ) History of Present Illness: HPI Miss Chio Orantes??is a??pleasant??71-year-old female with complex past and current medical history but not limited to asthma,??CVA was on??Eliquis: now aspirin only,??heart failure preserved ejectionfraction, on methotrexate for SLE,??restless legs and hypertension was seen today? for follow-upon her bilateral lower leg cramps. Gabapentin is helping her some Still wakes up with right leg calf pain x wakes her up. In both legs. She moves and stretches and then can sleep She is taking care of who is in the hospital with an infection. Has been a stressful time for her Per last office note: Specialists 1. cardiolo 2. Rheum Dr. Song 3. Neurology for memory loss and Hx of stroke 4. Pulmonolgy 5 eye doctor. 6. PRN dermatology No [...] pelvic pain. Musculoskeletal: Negative for arthralgias. Neurological: Negative for dizziness, syncope and headaches. Psychiatric/Behavioral: Positive for depression and sleep disturbance. Negative for behavioral problems. Medications: Current Outpatient Medications: ??? ALBUTEROL SULFATE HFA 108 (90 Base) MCG/ACT inhaler, INHALE 2 PUFFS INTO THE LUNGS EVERY 4 (FOUR) HOURS NEEDED FOR WHEEZING., Disp: 18 g, Rfl: 1 ??? atorvastatin 80 MG tablet, TAKE 1 TABLET BY MOUTH EVERY DAY, Disp: , Rfl: ??? B-D 3CC LUER-KAILASH SYR 22GX1 22G X 1 3 ML Misc, USE ONCE A MONTH DIRECTED WITH METHOTREXATE,Disp: , Rfl: ??? bisoprolol (ZEBETA) 5 MG tablet, Take 1 tablet by mouth daily., Disp: , Rfl: ??? bisoprolol 5 MG tablet, TAKE 1 TABLET BY MOUTH EVERY DAY, Disp: , Rfl: ??? calcium carbonate 600 MG tablet, Take by mouth daily., Disp: , Rfl: ??? Cholecalciferol (VITAMIN D3) 50 MCG (2000 UT) Cap, take 1 by Oral route every day, Disp: , Rfl: ??? dicyclomine (BENTYL) 10 MG capsule, Take 1 capsule (10 mg total) by mouth 2 (two) times daily for 30 days., Disp: 60 capsule, Rfl: 2 ??? ELIQUIS 5 MG tablet, Take 5 [...] DAY, Disp: 90 tablet, Rfl: 0 ??? gabapentin (NEURONTIN) 100 MG capsule, Take 3 capsules (300 mg total) by mouth nightly., Disp: 90 capsule, Rfl: 3 ??? methotrexate 2.5 MG tablet, , Disp: , Rfl: ??? montelukast 10 MG tablet, TAKE 1 TABLET BY MOUTH EVERY DAY EVERY NIGHT, Disp: , Rfl: ??? nitroglycerin 0.4 MG SL tablet, May [...] TABLETS EVERY EVENING, Disp: , Rfl: ??? sucralfate (CARAFATE) 1 G tablet, Take 1 tablet (1 g total) by mouth 4 (four) times daily before meals and nightly for 30 days., Disp: 120 tablet, Rfl: 3 ??? vitamin C 1000 MG tablet, Take 1,000 mg by mouth daily., Disp: , Rfl: ??? furosemide (LASIX) 20 MG tablet, Take 20 mg by mouth daily., Disp: , Rfl: ??? furosemide 20 MG tablet, TAKE 1 TABLET BY MOUTH EVERY DAY, Disp: , Rfl: Allergies Allergen Reactions ??? [...] status: Tobacco Use ??? Smoking status: Never Smoker [...] normal. Left Ear: Tympanic membrane normal. Nose: Nose normal. Mouth/Throat: Mucous membranes are [...] Behavior normal. Judgment: Judgment normal. Filed Vitals: 07/06/22 1540 BP: 117/69 Pulse: 73 Resp: 20 Temp: 99.2 ??F (37.3 ??C) TempSrc: Core SpO2: 97% Weight: 65.3 kg (144 lb) Height: 4' 11 (1.499 m) Diagnoses/Impression: 1. Need for immunization against influenza [[id number]] INFLUENZA VIRUS VACCINE, SPLIT VIRUS 0.7 mL (SINGLE DOSE SYRINGE FLUZONE HIGH DOSE) 2. Leg cramps, sleep related gabapentin (NEURONTIN) 100 MG capsule Recommendations and Plan: Her leg cramps are very sporadic and mostly in the middle of her sleep. Gabapentin has helped her. Today,I plan to increase dose to 300 mg qD Received high-dose flu shot and new COVID-booster in office today. Follow-up in 3 months. She voiced understanding and agrees with the plan. All questions Orders Placed This Encounter ??? [[id number]] INFLUENZA VIRUS VACCINE, SPLIT VIRUS 0.7 mL (SINGLE DOSE SYRINGE FLUZONE HIGH DOSE) ??? furosemide (LASIX) 20 MG tablet ??? gabapentin (NEURONTIN) 100 MG capsule Reviewed and updated this visit by provider: Monica Lugo MD Referring Provider: No ref. provider found PCP: Thi Lugo MD OGICAL TECHNICAL OFFICER documented in this encounter Plan of Treatment Upcoming Encounters Date Type Department Care Team (Late st Contact Info) Description 10/02/2024 11:40 AM ECOLOGICAL TECHNICAL OFFICER Office Visit [facility] Multispecialty Care - [facility] [address] [facility] [place] [address] Johnnie Lr MD [address] [facility] [address] [place] [address] 01/04/2025 9:50 AM CDT Office Visit [facility] Family Medicine - [place] [address] [facility] [address] [place] [id number] Emily Jordan MD [address] [place] [address] documented as of this encounter Visit Diagnoses Diagnosis Need for immunization against influenza- Primary Need for prophylactic vaccination and inoculation against influenza Leg cramps, sleep related Sleep related leg cramps documented in this encounter Additional Health Concerns Infection Onset Date Last Indicated Resolved Time COVID-19 Rule Out 07/16/2022 07/16/2022 07/16/2022 6:24 PM ECOLOGICAL TECHNICAL OFFICER Assessment Noted Time PHQ-9 Depression Total Score: 2 05/04/20 9:39 AM CDT documented as of this encounter Care Teams Curve Saw Operator Relationship Specialty [place] [address] [address] [place] [id number] PCP - General FAMILY PRACTICE 09/29/21 06/08/24 [place] [id number] [facility]. [address] [address] RHEUMATOLOGY 09/27/20 documented as of this encounter
--- OUTSIDE RECORDS SUMMARY | 2024-08-29 09:56 | XMS_ITS | Encounter Summary ---
Author Organization [facility] Address [address] [place] [address]. [place], [place] [address] [place] [address] Care Team Providers Care Account Adjuster Name Role Phone Gladis Song MD Unavailable Thi Lugo MD Primary Care Provider [phone] Emily Jordan MD Primary Care Provider + Encounter Details Date Type Department Care Team (Late Contact Info) Description 06/29/2022 FieldEZ Message Enc [facility] Family & Internal Medicine [address] [address] [facility] Provider Colonoscopy Social History Tobacco Use Types Packs/Day Years [...] on file Legal Sex Female 10:22 PM FURNACE CHECKER Gender Identity Female 09/12/2021 9:51 AM FURNACE CHECKER Sexual Orientation Straight 09/12/2021 9: 51 AM FURNACE CHECKER documented as of this encounter Plan of Treatment Upcoming Encounters Date Type Department Care Team (Late Contact Info) Description 10/02/2024 11:40 AM FURNACE CHECKER Office Visit [facility] Multispecialty Care - [facility] [address] [facility] [place] [address] Johnnie Lr MD [address] [facility] [address] [place] [address] 01/04/2025 9:50 AM CDT Office Visit [facility] Family Medicine - [place] [address] [place] [address] Emily Jordan MD [address] [place] [address] documented as of this encounter Visit Diagnoses Not on filedocumented in this encounter Additional Health Concerns Infection Onset Date Last Indicated Resolved Time COVID-19 Rule Out 07/16/2022 07/16/2022 07/16/2022 6:24 PM FURNACE CHECKER COVID-19 Rule Out 05/09/2024 05/09/2024 05/09/2024 1:24 PM CDT Assessment Noted Time PHQ-9 Depression Total Score: 2 05/04/20 9:39 AM CDT documented as of this encounter Care Teams Account Adjuster Relationship Specialty [place] [address] [facility] [address] [place] [address] PCP - General FAMILY PRACTICE 09/29/21 06/08/24 Emily Jordan MD [address] [place] [address] PCP - General FAMILY PRACTICE 06/09/24 [place] [id number] [facility]. [facility] [address] [place], [place] [id number] RHEUMATOLOGY 09/27/20 documented as of this encounter
--- OUTSIDE RECORDS SUMMARY | 2024-08-29 09:56 | XMS_ITS | Encounter Summary ---
Author Organization [facility] Address [address] [place] [address]. [place], [place] [address] [place] [address] Care Team Providers Care Undergraduate Internship Name Role Phone Gladis Song MD Unavailable Thi Lugo MD Primary Care Provider [phone] Encounter Details Date Type Department Care Team (Latest Contact Info) Description 09/11/2022 Scan HEALTH INFO SRVCS Scanned, Doc Med [...] on file Legal Sex Female 10:22 PM DEAN OF EDUCATION Gender Identity Female 09/12/2021 9:51 AM DEAN OF EDUCATION Sexual Orientation Straight 09/12/2021 9: 51 AM DEAN OF EDUCATION COVID-19 Exposure Response Date Recorded In the last 10 days, have yo u been in contact with someone who was confirmed or suspected to have Coronavirus/COVID-19? No / Unsure 09/06/2022 9:03 AM DEAN OF EDUCATION documented as of this encounter Plan of Treatment Upcoming Encounters Date Type Department Care Team (Late st Contact Info) Description 10/02/2024 11:40 AM DEAN OF EDUCATION Office Visit [facility] Multispecialty Care - [facility] [address] [facility] [place] [address] Johnnie Lr MD [address] [facility] [address] [place] [address] 01/04/2025 9:50 AM CDT Office Visit [facility] Family Medicine - [place] [address] [place] [address] Emily Jordan MD [address] [place] [address] documented as of this encounter Visit Diagnoses Not on filedocumented in this encounter Additional Health Concerns Assessment Noted Time PHQ-9 Depression Total Score: 2 05/04/20 22 9:39 AM CDT documented as of this encounter Care Teams Undergraduate Internship Relationship Specialty [place] [address] [facility] [place] [address] PCP - General FAMILY PRACTICE 09/29/21 06/08/24 [place] [id number] [facility]. [address] [place] [address] RHEUMATOLOGY 09/27/20 documented as of this encounter
--- OUTSIDE RECORDS SUMMARY | 2024-08-29 09:56 | XMS_ITS | Encounter Summary ---
Author Organization [facility] Address [address] [place] [address]. [place] [address] [place] [address] Care Team Providers Care Air Moving Technician Name Role Phone Gladis Song MD Unavailable Thi Lugo MD Primary Care Provider [phone] Reason for Visit * Auth/Cert Specialty Diagnoses / Procedures Referred By Valerie t Referred To Contact Diagnoses H25.11 Procedures REMV CATARACT EXTRACAP,INSERT LENS RIGHT CATARACT REMOVAL WITH IOL IMPLANT Referral ID Status Reason Start Date Expiration Date Visits Re quested Visits Authorized [id number] 1 1 Encounter Details Date Type Department Care Team (Late st Contact Info) Description 05/28/2022 11:09 AM CDT - 05/28/2022 11:46 AM CDT Surgery [facility] [address] [place] [address] Valeri Doe MD [address] [facility] [address] [place] [address] RIGHT CATARACT REMOVAL WITH IOL IMPLANT Surgery Details Date/Time Status Location OR Service Patient Class Case Class Case Type Trauma Case? 05/28/2022 11:09 AM Posted [facility] OR OR 2 Ophthalmology Short Stay/Outpat ient Surgery No Panel 1 Procedure LRB Anes Op Region Wound Class Comments RIGHT CATARACT REMOVAL WITH IOL IMPLANT Right Monitor Anesthesia Care Eye Clean Surgeon Surgeon Role Service Panel Valeri Doe MD Primary Ophthalmology 1 documented in this encounter Social History Tobacco [...] on file Legal Sex Female 10:22 PM LABEL MAKER Gender Identity Female 09/12/2021 9:51 AM LABEL MAKER Sexual Orientation Straight 09/12/2021 9: 51 AM LABEL MAKER COVID-19 Exposure Response Date Recorded In the last 10 days, have yo u been in contact with someone who was confirmed or suspected to have Coronavirus/COVID-19? No / Unsure 05/28/2022 10:01 AM CDT documented as of this encounter Last Filed Vital Signs Vital Sign Reading Time Taken Comments Blood Pressure 149/59 05/28/2022 11:07 AM CDT Pulse 69 05/28/2022 11:07 AM CDT Temperature 36.2 ??C (97.2 ??F) 05/28/2022 11:07 AM C DT Respiratory Rate 20 05/28/2022 11:07 AM CDT Oxygen Saturation 97% 05/28/2022 11:07 AM CDT Inhaled Oxygen Concentration - - Weight 66.2 kg (146 lb) 05/28/2022 10:12 AM CDT Height 149.9 cm (4' 11 ) 05/28/2022 10:12 AM CDT Body Mass Index 29.49 05/28/2022 10:12 AM CDT documented in this encounter Discharge Instructions * Discharge Instructions* Mendy Ventura RN - 05/28/2022 11:13 AM CDT [facility] POST-OP INSTRUCTIONS FOLLOWING CATARACT SURGERY 1. You will be sent home from surgery with a patch over your eye. DO NOT REMOVE THE PATCH FOR ANY REASON. Dr. Doe will remove the patch at your 1st Post-Op (The day of surgery or the next day) and instruct you on how to use your eye drops. 2. SLEEP ON YOUR BACK OR EITHER SIDE. The night after surgery DO NOT SLEEP FACE DOWN . 3. DO NOT RUB OR PRESS ON YOUR EYE. Blot underneath or at the corner of your eye. 4. PROTECT YOUR EYE WHEN YOU NAP DURING THE DAY OR SLEEP AT NIGHT FOR 10 DAYS FOLLOWING SURGERY. Use the clear plastic shield (found in your surgery kit). Place the shield over the eye with paper tape across it to hold the shield in place. 5. LIMIT BENDING MUCH POSSIBLE AND KEEP HEAD FROM A DEPENDENT POSITION. Instead, bend your knees. You may want to hold onto a chair etc. To help keep your balance. 6. DO NOT LIFT ANYTHING OVER 20 POUNDS FOR 2 WEEKS. 7. DO NOT DO ANY STRENUOUS WORK OR EXERCISE FOR 2 WEEKS. For example: Where you strain or break a sweat. 8. DO NOT GET SOAP IN YOUR EYES. When you shower and shampoo. 9. DO NOT WEAR EYE MAKEUP OR USE CREAMS OR LOTIONS around your eyes for 2 weeks. 10. YOU MAY DRIVE WHEN YOUR VISION PERMITS. Ask you doctor. You must have a route delivery service driver for the day of surgery and your 1st post op exam. 11. ALWAYS WERE SUNGLASSES WHEN YOU GO OUTSIDE. These are found in your surgery kit. Dr. Doe OFFICE [phone] AFTER HOURS EMERGENCY [phone] * Attachments The following attachments cannot be sent through Care Everywhere. * Moderate Sedation in Adults Discharge Instructions (Cambodian) documented in this encounter Medications at Time of Discharge atorvastatin 80 MG tablet TAKE 1 TABLET BY MOUTH EVERY DAY 05/26/2019 Calcium Carbonate Antacid (CALCIUM CARBONATE OR) Take 600 mg by mouth daily. nitroglycerin 0.4 MG SL tablet As needed 05/23/2018 vitamin C 1000 MG tablet Take 1 tablet (1,000 mg total) by mouth daily. vitamin D3, cholecalciferol, 125 mcg capsule 1 capsule (125 mcg total) daily. 11/30/2014 ALBUTEROL SULFATE HFA 108 (90 Base) MCG/ACT inhalerIndications: Shortness of breath INHALE 2 PUFFS INTO THE LUNGS EVERY 4 (FOUR) HOURS NEEDED FOR WHEEZING. 18 g 1 03/07/2022 3 aspirin 81 MG chewable tabletIndications:O n anticoagulant therapy Chew 1 tablet (81 mg total) by mouth daily. 30 tablet 04/18/2022 2 B-D 3CC LUER-KAILASH SYR 22GX1 22G X 1 3 ML Misc 11/25/2019 4 bisoprolol 5 MG tablet TAKE 1 TABLET BY MOUTH EVERY DAY 03/22/2020 3 Fluticasone Furoate (ARNUITY ELLIPTA) 100 MCG/ACT AEROSOL POWDER, BREATH ACTIVATEDIndication s:Mild persistent asthma without complication ([facility]) Inhale 1 puff into the lungs daily. Rinse and spit after 90 each 3 05/15/2022 3 folic acid 1 MG tablet Take 1 mg by mouth daily. 05/14/2018 2 furosemide 20 MG tablet TAKE 1 TABLET BY MOUTH EVERY DAY 06/16/2019 3 gabapentin (NEURONTIN) 100 MG capsuleIndications: Leg cramps, sleep related Take 2 capsules (200 mg total) by mouth nightly. 60 capsule 2 05/04/2022 2 methotrexate 2.5 MG tablet 08/17/2021 4 montelukast 10 MG tablet TAKE 1 TABLET BY MOUTH EVERY DAY EVERY NIGHT 02/16/2020 3 PANTOPRAZOLE EC 40 MG tabletIndications:G astroesophageal reflux disease without esophagitis TAKE 1 TABLET BY MOUTH TWICE A DAY 180 tablet 1 09/09/2020 3 PARoxetine (PAXIL) 20 MG tabletIndications:A nxiety state TAKE 1 TABLET BY MOUTH EVERY DAY 90 tablet 05/25/2022 2 potassium chloride CR 20 MEQ tablet TAKE 2 TABLETS EVERY MORNING AND 2 TABLETS EVERY EVENING 01/04/2020 4 sucralfate (CARAFATE) 1 G tabletIndications:G ERD without esophagitis Take 1 tablet (1 g total) by mouth 4 (four) times daily before meals and nightly. 40 tablet 05/04/2022 2 documented as of this encounter H&P Notes * Valeri Doe MD - 05/28/2022 7:27 AM CDT HISTORY AND PHYSICAL INTERVAL NOTE: I have reviewed Chio Orantes History & Physical which was performed within the past 30days. After examining Chio Orantes, no change has occurred in the patient's condition since the H&P was completed. Informed Consent Discussion: Risks, benefits, alternatives as well as the consequences of not performing the surgery/procedure were discussed with the patient and/or family/personal patient portal representative. Questions were answered and the patient/family/personal patient portal representative verbalized understanding and desires to proceed. VALERI DOE MD documented in this encounter OR Notes * Op Note - Vaelri Doe MD - 05/28/2022 10:45 AM CDT Date: 05/28/2022 Patient Name: Chio Orantes : 1950 Surgeon: VALERI DOE MD. Preoperative Diagnosis: Cataract right Postoperative Diagnosis: Cataract right Name of Operation: Cataract Extraction (by Phacoemulsification) and Intraocular Lens Implant Anesthesia: Topical Specimen: None Complications: NONE EBL: NONE Description of Procedure: The eye was anesthetized with topical 0.75% bupivacaine. After intravenous sedation and placement of monitors, the patient was prepped and draped in the usual sterile manner. A lid speculum was placed. A paracentesis was made, and preservative free 1% lidocaine was instilled in the anterior chamber. The anterior chamber was then filled with Viscoat viscoelastic. A fab keratome was used to create the wound. Continuous tear anterior capsulotomy was performed. The lens was hydro dissected before being removed with phacoemulsification. The remaining lenticular cortexwas removed with aspiration. The capsular bag was polished and filled with viscoelastic material. An intraocular lens was chosen, inspected, irrigated and placed within the capsular bag where it was seen to be centered and stable. The viscoelastic material was aspirated. The wound was closed and found to be watertight. Betadine and antibiotic drops were placed in the eye. The speculum was removed. A Gallegos shield was applied. The patient tolerated the procedure well and left the operating room in satisfactory condition. VALERI DOE MD documented in this encounter Plan of Treatment Upcoming Encounters Date Type Department Care Team (Late st Contact Info) Description 10/02/2024 11:40 AM LABEL MAKER Office Visit [facility] Multispecialty Care - [facility] [address] [facility] [place] [address] Johnnie Lr MD [address] [place] [address] 01/04/2025 9:50 AM CDT Office Visit [facility] Family Medicine - [place] [address] [place], [place] [address] Emily Jordan MD [address] [place], [place] [id number] documented as of this encounter Procedures Procedure Name Priority Date/Time Associated Diagnosis Comments REMV CATARACT EXTRACAP,INSERT LENS 05/28/2022 10:43 AM CDT H25.11 documented in this encounter Visit Diagnoses Not on filedocumented in this encounter Administered Medications Inactive Administered Medications - up to 3 most recent administrations Medication Order MAR Action Action Date Dose Rate Site apraclonidine (IOPIDINE) 0.5 % ophthalmic solution As needed, Starting on Sat05/28/22 at 1052, Until Sat05/28/22 at 1102, Intra-Op Given 05/28/2022 10:52 AM CDT 1 drop besifloxacin (BESIVANCE) 0.6 % ophthalmic suspension 1 drop 1 drop, Right Eye, Every 5 min, 3 doses, First dose on Sat05/28/22 at 1030, Last dose on Sat05/28/22 at 1040 Given 05/28/2022 10:38 AM CDT 1 drop Given 05/28/2022 10:33 AM CDT 1 drop Given 05/28/2022 10:28 AM CDT 1 drop BUpivacaine (PF) (MARCAINE) 0.5 % injection 0.1 mL 0.1 mL, Right Eye, Every 5 min, 3 doses, First dose on Sat05/28/22 at 1030, Last dose on Sat05/28/22 at 1040 Given 05/28/2022 10:38 AM CDT 0.1 mLs Given 05/28/2022 10:33 AM CDT 0.1 mLs Given 05/28/2022 10:28 AM CDT 0.1 mLs EPINEPHrine 0.3 mg in balanced salts (BSS) irrigation solution As needed, Starting on Sat05/28/22 at 1052, Until Sat05/28/22 at 1102, Intra-Op Given 05/28/2022 10:52 AM CDT 500 mLs Righ t Eye moxifloxacin (VIGAMOX) 0.5 % ophthalmic solution As needed, Starting on Sat05/28/22 at 1053, Until Sat05/28/22 at 1102, Intra-Op Given 05/28/2022 10:53 AM CDT 1 drop oornqyxh-qvdbjfstep-zsnxzxbzr (NEOSPORIN) ophthalmic ointment As needed, Starting on Sat05/28/22 at 1053, Until Sat05/28/22 at 1102, Intra-Op Given 05/28/2022 10:53 AM CDT 1 mL povidone-iodine (BETADINE) 5 % ophthalmic solution As needed, Starting on Sat05/28/22 at 1053, Until Sat05/28/22 at 1102, Intra-Op Given 05/28/2022 10:53 AM CDT 1 drop tropicamide 1%-cyclopentolate 1%-phenylephrine 2.5%-ketorolac 0.5% ophthalmic solution 1 drop 1 drop, Right Eye, Every 5 min, 3 doses, First dose on Sat05/28/22 at 1030, Last dose on Sat05/28/22 at 1040, Instill in operative eye, Pre-Op Given 05/28/2022 10:38 AM CDT 1 drop Given 05/28/2022 10:33 AM CDT 1 drop Given 05/28/2022 10:28 AM CDT 1 drop documented in this encounter Active and Recently Administered Medications Times are shown in CDT. Scheduled Medication Order 05/26/2022 05/27/2022 05/28/2022 besifloxacin (BESIVANCE) 0.6 % ophthalmic suspension 1 drop (COMPLETED) 1 drop, Right Eye, Every 5 min, 3 doses, First dose on Sat05/28/22 at 1030, Last dose on Sat05/28/22 at 1040 1028 (Given - Provid er: Serenity Reynoso RN)1033 (Given - Provider: Serenity Reynoso RN)1038 (Given - Provider: Serenity Reynoso RN) BUpivacaine (PF) (MARCAINE) 0.5 % injection 0.1 mL (COMPLETED) 0.1 mL, Right Eye, Every 5 min, 3 doses, First dose on Sat05/28/22 at 1030, Last dose on Sat05/28/22 at 1040 1028 (Given - Provid er: Serenity Reynoso RN)1033 (Given - Provider: Serenity Reynoso RN)1038 (Given - Provider: Serenity Reynoso RN) tropicamide 1%-cyclopentolate 1%-phenylephrine 2.5%-ketorolac 0.5% ophthalmic solution 1 drop (COMPLETED) 1 drop, Right Eye, Every 5 min, 3 doses, First dose on Sat05/28/22 at 1030, Last dose on Sat05/28/22 at 1040, Instill in operative eye, Pre-Op 1028 (Given - Provid er: Serenity Reynoso RN)1033 (Given - Provider: Serenity Reynoso RN)1038 (Given - Provider: Serenity Reynoso RN) PRN Medication Order 05/26/2022 05/27/2022 05/28/2022 apraclonidine (IOPIDINE) 0.5 % ophthalmic solution (CANCELED) As needed, Starting on Sat05/28/22 at 1052, Until Sat05/28/22 at 1102, Intra-Op 1052 (Given - Provid er: Valeri Doe MD) EPINEPHrine 0.3 mg in balanced salts (BSS) irrigation solution (CANCELED) As needed, Starting on Sat05/28/22 at 1052, Until Sat05/28/22 at 1102, Intra-Op 1052 (Given - Provid er: Valeri Doe MD) moxifloxacin (VIGAMOX) 0.5 % ophthalmic solution (CANCELED) As needed, Starting on Sat05/28/22 at 1053, Until Sat05/28/22 at 1102, Intra-Op 1053 (Given - Provid er: Valeri Doe MD) neungwel-lerxpjuvst-tbrwoohkz (NEOSPORIN) ophthalmic ointment (CANCELED) As needed, Starting on Sat05/28/22 at 1053, Until Sat05/28/22 at 1102, Intra-Op 1053 (Given - Provid er: Valeri Doe MD) povidone-iodine (BETADINE) 5 % ophthalmic solution (CANCELED) As needed, Starting on Sat05/28/22 at 1053, Until Sat05/28/22 at 1102, Intra-Op 1053 (Given - Provid er: Valeri Doe MD) documented in this encounter Additional Health Concerns Assessment Noted Time PHQ-9 Depression Total Score: 2 05/04/20 22 9:39 AM CDT documented as of this encounter Care Teams Air Moving Technician Relationship Specialty [place] [address] [facility] [address] [place] [address] PCP - General FAMILY PRACTICE 09/29/21 06/08/24 [place] [address] [facility]. [address] [address] RHEUMATOLOGY 09/27/20 documented as of this encounter
--- OUTSIDE RECORDS SUMMARY | 2024-08-29 09:57 | XMS_ITS | Encounter Summary ---
Author Organization [facility] Address [address] [place] [address]. [place], [place] [address] [place] [address] Care Team Providers Care Outside Sales Representative Insurance Name Role Phone Gladis Song MD Unavailable Thi Lugo MD Primary Care Provider [phone] Encounter Details Date Type Department Care Team (Latest Contact Info) Description 05/23/2022 Travel Social History Tobacco Use Types Packs/Day [...] on file Legal Sex Female 10:22 PM ENDOCRINOLOGIST Gender Identity Female 09/12/2021 9:51 AM ENDOCRINOLOGIST Sexual Orientation Straight 09/12/2021 9: 51 AM ENDOCRINOLOGIST COVID-19 Exposure Response Date Recorded In the last 10 days, have yo u been in contact with someone who was confirmed or suspected to have Coronavirus/COVID-19? No / Unsure 05/23/2022 1:03 PM CDT documented as of this encounter Plan of Treatment Upcoming Encounters Date Type Department Care Team (Late st Contact Info) Description 10/02/2024 11:40 AM ENDOCRINOLOGIST Office Visit [facility] Multispecialty Care - [facility] [address] [facility] [place] [address] Johnnie Lr MD [address] [place] [address] 01/04/2025 9:50 AM CDT Office Visit [facility] Family Medicine - [place] [address] [facility] [address] [place] [address] Emily Jordan MD [address] [place] [address] documented as of this encounter Visit Diagnoses Not on filedocumented in this encounter Additional Health Concerns Assessment Noted Time PHQ-9 Depression Total Score: 2 05/04/20 9:39 AM CDT documented as of this encounter Care Teams Outside Sales Representative Insurance Relationship Specialty [place] [address] [facility] [place] [address] PCP - General FAMILY PRACTICE 09/29/21 06/08/24 [place] [address] [facility] [place] [address] RHEUMATOLOGY 09/27/20 documented as of this encounter
--- OUTSIDE RECORDS SUMMARY | 2024-08-29 09:57 | XMS_ITS | Encounter Summary ---
Author Organization [facility] Address [address] [place] [address]. [place] [address] [place] [address] Care Team Providers Care Program Strategist Name Role Phone Gladis Song MD Unavailable Thi Lugo MD Primary Care Provider [phone] Reason for Visit * Auth/Cert Specialty Diagnoses / Procedures Referred By Valerie florian Referred To Contact Diagnoses H25.11 Procedures REMV CATARACT EXTRACAP,INSERT LENS RIGHT CATARACT REMOVAL WITH IOL IMPLANT Referral ID Status Reason Start Date Expiration Date Visits Re quested Visits Authorized [id number] 1 1 Encounter Details Date Type Department Care Team (Latest Contact Info) Description 05/28/2022 10:02 AM CDT - 05/28/2022 11:28 AM T Hospital Encounter [facility] [address] [place] [address] Valeri Doe MD [address] [facility] [address] [place] [address] Discharge Disposition: Home or Self Care (Routine [...] on file Legal Sex Female 10:22 PM MATTRESS RENOVATOR Gender Identity Female 09/12/2021 9:51 AM MATTRESS RENOVATOR Sexual Orientation Straight 09/12/2021 9: 51 AM MATTRESS RENOVATOR COVID-19 Exposure Response Date Recorded In the [...] Ask you doctor. You must have a coach tour driver for the day of surgery and your 1st post op exam. 11. ALWAYS WERE SUNGLASSES WHEN YOU GO OUTSIDE. These are found in your surgery kit. Dr. Doe OFFICE [phone] AFTER HOURS EMERGENCY [phone] * Attachments The following attachments cannot be sent through Care Everywhere. * Moderate Sedation in Adults Discharge Instructions (Belizean) documented in this encounter Medications at Time [...] BREATH ACTIVATEDIndication s:Mild persistent asthma without complication ([facility]) Inhale 1 puff into the lungs daily. [...] PHYSICAL INTERVAL NOTE: I have reviewed Chio Floydjai Lamberto History & Physical which was performed within the past 30days. After examining Chio Orantes, no change has occurred in the patient's condition since the H&P was completed. Informed Consent Discussion: Risks, benefits, alternatives as well as the consequences of not performing the surgery/procedure were discussed with the patient and/or family/personal vaccine customer representative. Questions were answered and the patient/family/personal vaccine customer representative verbalized understanding and desires to proceed. VALERI DOE MD documented in this encounter OR Notes * Op Note - Valeri Doe MD - 05/28/2022 10:45 AM CDT [...] st Contact Info) Description 10/02/2024 11:40 AM MATTRESS RENOVATOR Office Visit [facility] Multispecialty Care - [address] [place] [address] Johnnie rL MD [address] [place] [address] 01/04/2025 9:50 AM CDT Office Visit [facility] Family Medicine - [place] [address] [place] [address] Emily Jordan MD [address] [place] [address] documented as of this encounter Procedures Procedure Name Priority Date/Time Associated Diagnosis Comments REMV CATARACT EXTRACAP,INSERT LENS 05/28/2022 10:43 AM CDT H25.11 documented in this encounter Visit Diagnoses Not on filedocumented in this encounter Administered Medications Inactive Administered Medications - up to 3 most recent administrations Medication Order MAR Action Action Date Dose Rate Site besifloxacin (BESIVANCE) 0.6 % ophthalmic suspension 1 [...] Given 05/28/2022 10:28 AM CDT 0.1 mLs tropicamide 1%-cyclopentolate 1%-phenylephrine 2.5%-ketorolac 0.5% ophthalmic solution [...] (Given - Provid er: Valeri Doe MD) gcsiwmzn-yulcsulcag-ldvmeushb (NEOSPORIN) ophthalmic ointment (CANCELED) As needed, Starting [...] documented as of this encounter Care Teams Program Strategist Relationship Specialty [place] [address] [facility] [address] [place] [address] PCP - General FAMILY PRACTICE 09/29/21 06/08/24 [place] [address] [facility]. [address] [address] RHEUMATOLOGY 09/27/20 documented as of this encounter
--- OUTSIDE RECORDS SUMMARY | 2024-08-29 09:57 | XMS_ITS | Encounter Summary ---
Author Organization [facility] Address [address] [place] [address]. [place] [address] [place] [address] Care Team Providers Care Finish Mender Name Role Phone Gladis Song MD Unavailable Thi Lugo MD Primary Care Provider [phone] Encounter Details Date Type Department Care Team (Latest Contact Info) Description 05/23/2022 1:53 PM CDT - 05/23/2022 11:59 PM T Hospital Encounter [facility] Laboratory [place], [place] [address] Johnnie Lr MD [address] [facility] [address] [place] [address] [phone] Discharge Disposition: Home or Self Care (Routine [...] on file Legal Sex Female 10:22 PM SAMPLE STITCHER Gender Identity Female 09/12/2021 9:51 AM SAMPLE STITCHER Sexual Orientation Straight 09/12/2021 9: 51 AM SAMPLE STITCHER COVID-19 Exposure Response Date Recorded In the last 10 days, have yo u been in contact with someone who was confirmed or suspected to have Coronavirus/COVID-19? No / Unsure 05/23/2022 1:03 PM CDT documented as of this encounter Medications [...] BREATH ACTIVATEDIndication s:Mild persistent asthma without complication (HHS/HCC) Inhale [...] A DAY 180 tablet 1 09/09/2020 3 PAROXETINE 20 MG tabletIndications:A nxiety state TAKE 1 TABLET BY MOUTH EVERY DAY 90 tablet 01/23/2022 2 potassium chloride CR 20 MEQ tablet TAKE 2 TABLETS EVERY MORNING AND 2 TABLETS EVERY EVENING 01/04/2020 4 sucralfate (CARAFATE) 1 G tabletIndications:G ERD without esophagitis Take 1 tablet (1 g total) by mouth 4 (four) times daily before meals and nightly. 40 tablet 05/04/2022 2 documented as of this encounter Progress Notes * Johnnie Lr MD - 05/23/2022 2:15 PM CDT Mrs. Orantes, Your allergy panel is positive for allergies to dust mites, dogs, and cats. Johnnie Lr MD documented in this encounter Plan of Treatment Upcoming Encounters Date Type Department Care Team (Late st Contact Info) Description 10/02/2024 11:40 AM SAMPLE STITCHER Office Visit [facility] Multispecialty Care - [facility] [address] [facility] [place] [phone] Johnnie Lr MD [address] [facility] [address] [place] [address] 01/04/2025 9:50 AM CDT Office Visit [facility] Family [facility] - [place] [address] [facility] [address] [place] [address] Emily Jordan MD [address] [address] documented as of this encounter Procedures Procedure Name Priority Date/Time Associated Diagnosis Comments ALLERGENS UPPER RESP Routine 05/23/2022 1:57 PM CDT Seasonal allergies CBC W/DIFF AUTOMATED Routine 05/23/2022 1:57 PM CDT Dyspnea on exertion Seasonal allergies documented in this encounter Results * (ABNORMAL) CBC W/DIFF AUTOMATED (05/23/2022 1:57 PM CDT) WBC 4.1(L) 4.5 - 11.0 x10'3/uL 05/23/2022 2:[address] [facility] RBC 4.46 4.20 - 5.40 x10'6/uL 05/23/2022 2:[address] [facility] HGB 13.1 12.0 - 16.0 G/DL 05/23/2022 2:[address] [facility] HCT 42.1 38.0 - 48.0 % 05/23/2022 2:[address] [facility] MCV 94.4 81.0 - 99.0 FL 05/23/2022 2:[address] [facility] MCH 29.4 27.0 - 31.0 PG 05/23/2022 2:[address] [facility] MCHC 31.1(L) 32.0 - 36.0 G/DL 05/23/2022 2:[address] [facility] RDW 14.8(H) 11.5 - 14.5 % 05/23/2022 2:[address] [facility] PLT 214 130 - 400 x10'3/uL 05/23/2022 2:[address] [facility] MPV 9.5 9.3 - 12.2 FL 05/23/2022 2:[address] [facility] DIFFERENTIAL TYPE AUTOMATED DIFFERENTIAL 05/23/2022 2:[address] [facility] NEUTROPHILS % 53.4 % 05/23/2022 2:[address] [facility] LYMPHOCYTES % 30.4 % 05/23/2022 2:[address] [facility] MONOCYTES % 12.3 % 05/23/2022 2:[address] [facility] EOSINOPHILS 2.5 % 05/23/2022 2:[address] [facility] BASOPHILS 1.2 % 05/23/2022 2:[address] [facility] IMMATURE GRANS % 0.2 % 05/23/20 2:[address] [facility] ABS. NEUTROPHILS TOTAL 2.16 1.80 - 7.70 x10'3/uL 05/23/2022 2:[address] [facility] ABS. LYMPHOCYTES 1.23 1.00 - 4.80 x10'3/uL 05/23/2022 2:[address] [facility] ABS. MONOCYTES 0.50 0.24 - 0.86 x10'3/uL 05/23/2022 2:[address] [facility] ABS. EOSINOPHILS 0.10 0.04 - 0.36 x10'3/uL 05/23/2022 2:[address] [facility] ABS. BASOPHILS 0.05 0.01 - 0.08 x10'3/uL 05/23/2022 2:[address] [facility] ABS. IMMATURE GRANULOCYTES 0.01 0.00 - 0.49 x10'3/uL 05/23/2022 2:[address] [facility] 05/23/2022 1:57 PM CDT Johnnie Lr MD LABORATORY Final Result [facility] [address] [place] [address], [place] [phone] * ALLERGENS UPPER RESP (05/23/2022 1:57 PM CDT) Pathologist [facility] RESPIRATORY ALLERGY PROF REG 8 REPORT 05/26/2022 7:00 PM CDT [facility] MELINA NORWOOD Comment: ! ?! ? ! CONV! ?! !Allergen Name ? ! ?? Dimitrios/L ??!CLASS! NOTE ! !D. pteronyssinus (d1) . . . . . . . . . . ! ?? 0.77 H! ??2 H! ?! !Dermatophagoides farinae (d2) IgE . . . . ! ?? 1.30 H! ??2 H! ?! !Cat Dander (e1) IgE . . . . . . . . . . . ! ?? 2.85 H! ??2 H! ?! !Dog Dander (e5) IgE . . . . . . . . . . . ! ?? 0.15 H!0/1 H! ?! !Mouse Urine Proteins (e72) IgE. . . . . . ! ??<0.10 ??! ??0 ??! ?! !Bermuda Grass (g2) IgE. . . . . . . . . . ! ??<0.10 ??! ??0 ??! ?! !Mheul Grass (g6) IgE. . . . . . . . . . ! ??<0.10 ??! ??0 ??! ?! !Cockroach (i6) IgE. . . . . . . . . . . . ! ??<0.10 ??! ??0 ??! ?! !Penicillium notatum (m1) IgE. . . . . . . ! ??<0.10 ??! ??0 ??! ?! !Cladosporium herbarum (m2) IgE. . . . . . ! ??<0.10 ??! ??0 ??! ?! !Aspergillus fumigatus (m3) IgE. . . . . . ! ??<0.10 ??! ??0 ??! ?! !Alternaria alternata (m6) IgE . . . . . . ! ??<0.10 ??! ??0 ??! ?! !Maple ([place]) (t1) IgE. . . . . . . . ! ??<0.10 ??! ??0 ??! ?! !Mountain [place] (t6) IgE . . . . . . . . . ! ??<0.10 ??! ??0 ??! ?! !Chardon (t7) IgE. . . . . . . . . . . . . . . ! ??<0.10 ??! ??0 ??! ?! !Elm (t8) IgE. . . . . . . . . . . . . . . ! ??<0.10 ??! ??0 ??! ?! !Heber Tree (t10) IgE . . . . . . . . . . ! ??<0.10 ??! ??0 ??! ?! ![place] (t11) IgE. . . . . . . . . . . . ! ??<0.10 ??! ??0 ??! ?! !Se[place] (t14) IgE. . . . . . . . . . . ! ??<0.10 ??! ??0 ??! ?! !White Leonardo (t15) IgE . . . . . . . . . . . ! ??<0.10 ??! ??0 ??! ?! ![place]/Pecan Tree (t22) IgE. . . . . . . ! ??<0.10 ??! ??0 ??! ?! !White [place] (t70) IgE. . . . . . . . . ! ??<0.10 ??! ??0 ??! ?! !Common Ragweed (Short) (w1) IgE . . . . . ! ??<0.10 ??! ??0 ??! ?! ![place] Thistle (w11) IgE . . . . . . . . ! ??<0.10 ??! ??0 ??! ?! !Rough Pigweed (w14) IgE . . . . . . . . . ! ??<0.10 ??! ??0 ??! ?! !Rough Eduardo Elder (w16) IgE . . . . . . . ! ??<0.10 ??! ??0 ??! ?! Immunoglobulin E ? 23 ? kU/L ?<=114 INTERPRETATION SPECIFIC ?LEVEL OF ALLERGEN IgE CLASS ?kU/L ? SPECIFIC IgE ANTIBODY --------- ? --------- ? 0 ? <0.10 ?Absent/Undetectable ??0/1 ?0.10-0.34 ?Very Low Level ?? 1 ? 0.35-0.69 ?Low Level ?? 2 ? 0.70-3.49 ?Moderate Level ?? 3 ? 3.50-17.4 ?High Level ?? 4 ? 17.5-49.9 ?Very High Level ?? 5 ? 50-100 ? Very High Level ?? 6 ? >100 ? Very High Level The clinical relevance of allergen results of 0.10-0.34 kU/L are undetermined and intended for specialist use. Allergens denoted with a include results using one or more analyte specific reagents. In those cases, the test was developed and its analytical performance characteristics have been determined by [facility]. It has not been cleared or approved by the U.S. Food and Drug Administration. The FDA has determined that such clearance or approval is not necessary. This assay has been validated pursuant to the CLIA regulations and is used for clinical purposes. Test Performed by [facility], [facility], [address] [place], [place] Dmitry Xavier M.D., Ph.D., Director of Laboratories , [facility] [id number] 05/23/2022 1:57 PM CDT Johnnie Lr MD LABORATORY Final Result [facility] [address] [place], [place] , [place] [phone] documented in this encounter Visit Diagnoses Diagnosis Seasonal allergies Allergic rhinitis, cause unspecified Dyspnea on exertion Other dyspnea and respiratory abnormality documented in this encounter Additional Health Concerns Assessment Noted Time PHQ-9 Depression Total Score: 2 05/04/20 22 9:39 AM CDT documented as of this encounter Care Teams Finish Mender Relationship Specialty [place] [id number] [address] PCP - General FAMILY PRACTICE 09/29/21 06/08/24 [place] [address] [facility]. [facility] [address] [place] [address] RHEUMATOLOGY 09/27/20 documented as of this encounter
--- OUTSIDE RECORDS SUMMARY | 2024-08-29 09:57 | XMS_ITS | Encounter Summary ---
Author Organization [facility] Address [address] [place] [address]. [place], [place] [address] [place] [address] Care Team Providers Care Calciner Operator Helper Name Role Phone Gladis Song MD Unavailable Thi Lugo MD Primary Care Provider [phone] Encounter Details Date Type Department Care Team (Latest Contact Info) Description 05/15/2022 Travel Social History Tobacco Use Types Packs/Day [...] on file Legal Sex Female 10:22 PM WHOLESALE REPRESENTATIVE Gender Identity Female 09/12/2021 9:51 AM WHOLESALE REPRESENTATIVE Sexual Orientation Straight 09/12/2021 9: 51 AM WHOLESALE REPRESENTATIVE COVID-19 Exposure Response Date Recorded In the last 10 days, have yo u been in contact with someone who was confirmed or suspected to have Coronavirus/COVID-19? No / Unsure 05/15/2022 11:42 AM CDT documented as of this encounter Plan of Treatment Upcoming Encounters Date Type Department Care Team (Late st Contact Info) Description 10/02/2024 11:40 AM WHOLESALE REPRESENTATIVE Office Visit [facility] Multispecialty Care - [facility] [address] [facility] [address] [place] [address] Johnnie Lr MD [address] [facility] [address] [place] [address] 01/04/2025 9:50 AM CDT Office Visit [facility] Family Medicine - [place] [address] [facility] [address] [place] [address] Emily Jordan MD [address] [place] [address] documented as of this encounter Visit Diagnoses Not on filedocumented in this encounter Additional Health Concerns Assessment Noted Time PHQ-9 Depression Total Score: 2 05/04/20 9:39 AM CDT documented as of this encounter Care Teams Calciner Operator Helper Relationship Specialty [place] [address] [facility]. [address] [place] [address] PCP - General FAMILY PRACTICE 09/29/21 06/08/24 [place] [address] [facility]. [address] [place] [address] RHEUMATOLOGY 09/27/20 documented as of this encounter
--- OUTSIDE RECORDS SUMMARY | 2024-08-29 09:57 | XMS_ITS | Encounter Summary ---
Author Organization [facility] Address [facility] [place] [address] [place] [address] Care Team Providers Care Carton Forming Machine Helper Name Role Phone Gladis Song MD Unavailable Thi Lugo MD Primary Care Provider [phone] Reason for Referral * Imaging (Routine) - Closed Specialty Diagnoses / Procedures Referred By Valerie florian Referred To Contact RADIOLOGY Diagnoses Pulmonary nodules/lesions, multiple Procedures CT CHEST WO Mariola Littlejohn MD [address] [address] Phone: tel: fax: Referral ID Status Reason Start Date Expiration Date Visits Re quested Visits Authorized [id number] Closed 03/29/2022 09/25/2022 2 2 Reason for Visit * Imaging (Routine) - Closed Specialty Diagnoses / Procedures Referred By Valerie florian Referred To Contact RADIOLOGY Diagnoses Pulmonary nodules/lesions, multiple Procedures CT CHEST WO Mariola Littlejohn MD [address] [address] Phone: tel: fax: Referral ID Status Reason Start Date Expiration Date Visits Re quested Visits Authorized [id number] Closed 03/29/2022 09/25/2022 2 2 Encounter Details Date Type Department Care Team (Latest Contact Info) Description 05/23/2022 1:04 PM CDT - 05/23/2022 1:52 PM CDT Hospital Encounter [facility] CT [address] [place] [address] Mariola Olmos MD [address] [facility] [address] [place] [address] Discharge Disposition: Home or Self Care (Routine [...] on file Legal Sex Female 10:22 PM WOUND/OSTOMY CLINICAL NURSE SPECIALIST Gender Identity Female 09/12/2021 9:51 AM WOUND/OSTOMY CLINICAL NURSE SPECIALIST Sexual Orientation Straight 09/12/2021 9: 51 AM WOUND/OSTOMY CLINICAL NURSE SPECIALIST COVID-19 Exposure Response Date Recorded In [...] as of this encounter Progress Notes * Mariola Olmos MD - 05/23/2022 1:45 PM CDT Mrs. Orantes, I reviewed the CT scan of your chest. The previously seen nodules that we followed up on have remained stable in size. There is one very tiny new nodule that was not seen on the last CT, but given the small size it may just not have been caught on the last scan. Given the small size and stability of the rest of the nodules we do not necessarily need to follow-up anymore, but we can discuss further when you follow-up with me in clinic for an optional [address] follow-up. Mariola Olmos MD documented in this encounter Plan of Treatment Upcoming Encounters Date Type Department Care Team (Late st Contact Info) Description 10/02/2024 11:40 AM WOUND/OSTOMY CLINICAL NURSE SPECIALIST Office Visit [facility] Multispecialty Care - [facility] [address] [facility] [place] [address] Mariola Olmos MD [address] [facility] [address] [place] [address] 01/04/2025 9:50 AM CDT Office Visit [facility] Family Medicine - [place] [address] [place] [address] Emily Jordan MD [address] [place] [address] documented as of this encounter Procedures Procedure Name Priority Date/Time Associated Diagnosis Comments CT CHEST WO CON Routine 05/23/2022 1:55 PM CDT Pulmonary nodules/lesions, multiple documented in this encounter Results * CT CHEST WO CON (05/23/2022 1:55 PM CDT) Anatomical Region Laterality Modality Chest Computed Tomogra phy 05/25/2022 3:59 PM CDT Impressions 05/25/2022 4:06 PM CDT IMPRESSION: Multiple pulmonary nodules are present within the left lung. ??There is a new nodule that is present superiorly on image #18. ??If the patient's at high risk for pulmonary neoplastic process follow-up in 12 months is recommended if the patient's at low risk no further follow-up is recommended. ??(Priya 2017 recommendations) Referred By: MARIOLA OLMOS Interpreted By: Ralph Lance MD, 05/25/2022 3:59 PM Narrative 05/25/2022 4:06 PM CDT Procedure(s): CT CHEST WO CON Date of service: 05/23/2022 1:55 PM Provided clinical information: 71 years, Female, Lung nodule, 6-8mm intermittent midsternal chest pain. ??History of lupus. ??Elevated blood pressure. ??Cough. ??Shortness breath. Procedure and materials: Helical images of the chest are obtained from superior to the thoracic inlet to inferior to the costophrenic angles. ??Images are obtained without intravenous contrast. A dose lowering technique was used for this procedure, which may include, but is not limited to, dose reduction technique, automated exposure control, iterative reconstruction, ALARA (As Low As Reasonably Achievable), or Image Gently techniques. Comparison studies: September 21, 2021 prior images are available. ??Prior report is not supplied. Observations: ?? Axillae: No enlarged lymph nodes. Mediastinum/Michell:Ascending thoracic aorta is upper limits of normal at 3.6 cm. ??No cardiomegaly. ??No pericardial effusion. ??No enlarged mediastinal or hilar lymph nodes are present. Lung Parenchyma:Small nodule left upper lobe image #18. ??This is not definitively identified on the prior examination. ??Small nodule within the left midlung subadjacent to the fissure. ??This is unchanged. ??Lingular nodule image #51 is appears to be unchanged left lung nodule image 55 this appears to be unchanged. ??Nodule image #51 posteriorly this is unchanged. ??The right lung reveals minimal atelectasis. ??No definite nodules are present. Visualized Upper abdominal structures:Unremarkable. Bone Windows:Diffuse degenerative changes of the thoracic spine. Procedure Note Ralph Lance MD - 05/25/2022 Procedure(s): CT CHEST WO CON Date of service: 05/23/2022 1:55 PM Provided clinical information: 71 years, Female, Lung nodule, 6- 8mm intermittent midsternal chest pain. History of lupus. Elevated bloodpressure. Cough. Shortness breath. Procedure and materials: Helical images of the chest are obtained fromsuperior to the thoracic inlet to inferior to the costophrenic angles.Images are obtained without intravenous contrast. A dose lowering technique was used for this procedure, which may include,but is not limited to, dose reduction technique, automated exposurecontrol, iterative reconstruction, ALARA (As Low As ReasonablyAchievable), or Image Gently techniques. Comparison studies: September 21, 2021 prior images are available. Priorreport is not supplied. Observations: Axillae: No enlarged lymph nodes. Mediastinum/Michell:Ascending thoracic aorta is upper limits of normal at 3.6cm. No cardiomegaly. No pericardial effusion. No enlarged mediastinalor hilar lymph nodes are present. Lung Parenchyma:Small nodule left upper lobe image #18. This is notdefinitively identified on the prior examination. Small nodule within theleft midlung subadjacent to the fissure. This is unchanged. Lingularnodule image #51 is appears to be unchanged left lung nodule image 55 thisappears to be unchanged. Nodule image #51 posteriorly this is unchanged.The right lung reveals minimal atelectasis. No definite nodules arepresent. Visualized Upper abdominal structures:Unremarkable. Bone Windows:Diffuse degenerative changes of the thoracic spine. IMPRESSION: Multiple pulmonary nodules are present within the left lung. There is anew nodule that is present superiorly on image #18. If the patient's athigh risk for pulmonary neoplastic process follow-up in 12 months isrecommended if the patient's at low risk no further follow-up isrecommended. (Fleischner 2017 recommendations) Referred By: MARIOLA OLMOS Interpreted By: Ralph Lance MD, 05/25/2022 3:59 PM Mariola Olmos MD CT Final Result documented in this encounter Visit Diagnoses Diagnosis Pulmonary nodules/lesions, multiple Other nonspecific abnormal finding of lung field documented in this encounter Additional Health Concerns Assessment Noted Time PHQ-9 Depression Total Score: 2 05/04/20 22 9:39 AM CDT documented as of this encounter Care Teams Carton Forming Machine Helper Relationship Specialty [place] [address] [facility] [place] [address] PCP - General FAMILY PRACTICE 09/29/21 06/08/24 [place] [address] [facility] [address] [place] [address] RHEUMATOLOGY 09/27/20 documented as of this encounter
--- OUTSIDE RECORDS SUMMARY | 2024-08-29 09:57 | XMS_ITS | Encounter Summary ---
Author Organization [facility] Address [address] [place] [address]. [place] [address] [place] [address] Care Team Providers Care Venture Capitalist Name Role Phone Gladis Song MD Unavailable Thi Lugo MD Primary Care Provider [phone] Reason for Visit * Auth/Cert Specialty Diagnoses / Procedures Referred By Valreie florian Referred To Contact Diagnoses H25.11 Procedures REMV CATARACT EXTRACAP,INSERT LENS RIGHT CATARACT REMOVAL WITH IOL IMPLANT Referral ID Status Reason Start Date Expiration Date Visits Re quested Visits Authorized [id number] 1 1 Encounter Details Date Type Department Care Team (Late st Contact Info) Description 05/28/2022 10:43 AM CDT Anesthesia Event [facility] [address] [place] [address] Rula Colmenares CRNA [address] [place] [address] Nate Alejandra CRNA [address] [place] [address] Anesthesia Record Procedure Summary Procedure Name Responsible Anesthesiologist Anesthesia Start Time Anesthesia Stop Time RIGHT CATARACT REMOVAL WITH IOL IMPLANT (Right: Eye) Rula Colmenares CRNA 05/28/22 1043 05/28/22 1100 Events Date Time Event Comment 05/28/2022 1019 1019 AN SLAB OFF MILL TENDER Prepped 1043 An Start Patient ID and consent checked and patient reassessed. 1044 An Start Data 1044 AN Immediate Reassess The lion gil was reevaluated immediately before sedation or regional anesthesia. 1044 Anesthesia Ready 1100 An Stop 1100 an stop data 1100 Post Anesthetic Care Handoff I completed my handoff to the receiving nurse during which we: 1. Identified the patient 2. Identified the responsible provider 3. Reviewed the pertinent medical history 4. Discussed the surgical course 5. Reviewed intra-op anesthesia management and issues during anesthesia 6. Set expectations for post-procedure period 7. Allowed opportunity for questions and acknowledgement of understanding. Meds Name Total midazolam 2 mg/2 mL injection 1 mg * Agents Name O2 * Blood No blood administrations on file. Lines, Drains, and Airways Type Details Placement Removal Surgical/Incision 05/28/22; 1049; Surgical Wound; Eye; Right; eye shield, tape; 05/28/22; 1328 05/28/22 1049 by Erma Light RN 05/28/22 1328 by Automatic Discharge Provider documented in this encounter Social History Tobacco [...] on file Legal Sex Female 10:22 PM CASTING MACHINE ADJUSTER Gender Identity Female 09/12/2021 9:51 AM CASTING MACHINE ADJUSTER Sexual Orientation Straight 09/12/2021 9: 51 AM CASTING MACHINE ADJUSTER COVID-19 Exposure Response Date Recorded In the last 10 days, have yo u been in contact with someone who was confirmed or suspected to have Coronavirus/COVID-19? No / Unsure 05/28/2022 10:01 AM CDT documented as of this encounter OR Notes * Anesthesia Postprocedure Evaluation - Rula Colmenares CRNA - 05/28/2022 11:00 AM CDT Anesthesia Post-op Note Chio Orantes Procedure(s): RIGHT CATARACT REMOVAL WITH IOL IMPLANT (Right Eye) Anesthesia type: MAC There were no vitals filed for this visit. Vitals: 05/28/22 1012 Pulse: 64 Vitals: 05/28/22 1012 Resp: 20 Vitals: 05/28/22 1012 Temp: 36.3 ??C Vitals: 05/28/22 1012 SpO2: 97% Patient Location: Phase II/Outpatient Level of Consciousness: awake, alert and oriented Pain Management: adequate analgesia Airway Patency: patent Respiratory Status: acceptable Cardiovascular Status: acceptable Post-Op Nausea: none Postoperative Hydration: euvolemic There were no known complications for this encounter. * Anesthesia Preprocedure Evaluation - Rula Colmenares CRNA - 05/25/2022 3:05 PM CDT Anesthesia ROS/MED History Reviewed: Patient summary , Nursing notes , Family history anesthesia, Anesthesia history , Medications Pre-Anesthetic State: awake, alert and responds appropriately Pulmonary (+) sleep apnea, asthma Cardiovascular Exercise tolerance:good (+) hypertension, CAD, CHF, arrhythmia, (Paroxysmal), hyperlipidemia Neuro/Psych (+) neuromuscular disease, CVA GI/Hepatic/Renal (+) GERD Endo/Other neg endo/other ROS GENERAL COMMENTS Heart failure with preserved ejection fraction Physical Evaluation Airway Mallampati: III TM Distance: >3 FB Neck ROM: normal Dental No notable dental history Pulmonary Breath sounds clear to auscultation Cardiovascular Rhythm: regular Rate: normal Anesthesia Plan ASA 3 Intravenous Induction Anesthesia type: MAC Plan for Airway: nasal cannula/simple face mask Informed Consent Anesthetic plan and risks discussed with patient of whom consent was obtained. . documented in this encounter Plan of Treatment Upcoming Encounters Date Type Department Care Team (Late st Contact Info) Description 10/02/2024 11:40 AM CASTING MACHINE ADJUSTER Office Visit [facility] Multispecialty Care - [address], [address] [place] [address] Johnnie Lr MD [address] [facility] [address] [place] [address] 01/04/2025 9:50 AM CDT Office Visit [facility] Family Medicine - [place] [address] [place], [place] [address] Emily Jordan MD [address] [place] [address] documented as of this encounter Visit Diagnoses Not on filedocumented in this encounter Administered Medications Inactive Administered Medications - up to 3 most recent administrations Medication Order MAR Action Action Date Dose Rate Site midazolam (VERSED) injection Intravenous, PRN, Starting on Sat05/28/22 at 1044, Until Sat05/28/22 at 1100, Anesthesia Intra-Op Given 05/28/2022 10:44 AM CDT 1 mg documented in this encounter Additional Health Concerns Assessment Noted Time PHQ-9 Depression Total Score: 2 05/04/20 9:39 AM CDT documented as of this encounter Care Teams Venture Capitalist Relationship Specialty [place] [address] [facility] [place] [address] PCP - General FAMILY PRACTICE 09/29/21 06/08/24 [place] [address] [facility] [place] [address] RHEUMATOLOGY 09/27/20 documented as of this encounter
--- OUTSIDE RECORDS SUMMARY | 2024-08-29 09:58 | XMS_ITS | Encounter Summary ---
Author Organization [facility] Address [address] [place] [address]. [place], [place] [address] [place] [address] Care Team Providers Care Habitat Conservation Planner Name Role Phone Gladis Song MD Unavailable Thi Lugo MD Primary Care Provider [phone] Encounter Details Date Type Department Care Team (Latest Contact Info) Description 02/23/2022 Travel Social History Tobacco Use Types Packs/Day Years Used Date Smoking Tobacco: Never Smokeless Tobacco: Never Alcohol Use Standard Drinks/Week Comments Yes 0 (1 standard drink = 0.6 oz pur e alcohol) up 2 glasses of wine/month PHQ-2 Answer Date Recorded PHQ-2 Score - If the patient scores above 3, please move on to questions 3-9 0 02/05/2022 Comments No Sex and Gender Information Value Date Recorded Sex Assigned at Not on file Legal Sex Female 10:22 PM TRANSPORT AIRCREWMAN Gender Identity Female 09/12/2021 9:51 AM TRANSPORT AIRCREWMAN Sexual Orientation Straight 09/12/2021 9: 51 AM TRANSPORT AIRCREWMAN COVID-19 Exposure Response Date Recorded In the last 10 days, have yo u been in contact with someone who was confirmed or suspected to have Coronavirus/COVID-19? No / Unsure 02/23/2022 10:13 AM CDT documented as of this encounter Plan of Treatment Upcoming Encounters Date Type Department Care Team (Late st Contact Info) Description 10/02/2024 11:40 AM TRANSPORT AIRCREWMAN Office Visit [facility] Multispecialty Care - [facility] [address] [facility] [place] [address] Johnnie Lr MD [address] [facility] [address] [place] [address] 01/04/2025 9:50 AM CDT Office Visit [facility] Family Medicine - [place] [address] [facility] [address] [place] [address] Emily Jordan MD [address] [place] [address] documented as of this encounter Visit Diagnoses Not on filedocumented in this encounter Additional Health Concerns Assessment Noted Time PHQ-9 Depression Total Score: 13 022 9:37 AM TRANSPORT AIRCREWMAN documented as of this encounter Care Teams Habitat Conservation Planner Relationship Specialty [place] [address] [facility] [place] [address] PCP - General FAMILY PRACTICE 09/29/21 06/08/24 [place] [address] [facility] [place] [address] RHEUMATOLOGY 09/27/20 documented as of this encounter
--- OUTSIDE RECORDS SUMMARY | 2024-08-29 09:58 | XMS_ITS | Encounter Summary ---
Author Organization [facility] Address [address] [place] [address]. [place], [place] [address] [place] [address] Care Team Providers Care Marketing Services Rep Name Role Phone Gladis Song MD Unavailable Thi Lugo MD Primary Care Provider [phone] Encounter Details Date Type Department Care Team (Latest Contact Info) Description 04/13/2022 Travel Social History Tobacco Use Types Packs/Day [...] on file Legal Sex Female 10:22 PM OYSTER BUYER Gender Identity Female 09/12/2021 9:51 AM OYSTER BUYER Sexual Orientation Straight 09/12/2021 9: 51 AM OYSTER BUYER COVID-19 Exposure Response Date Recorded In the last 10 days, have yo u been in contact with someone who was confirmed or suspected to have Coronavirus/COVID-19? No / Unsure 04/13/2022 1:14 PM CDT documented as of this encounter Plan of Treatment Upcoming Encounters Date Type Department Care Team (Late st Contact Info) Description 10/02/2024 11:40 AM OYSTER BUYER Office Visit [facility] Multispecialty Care - [facility] [address] [facility] [place] [address] Johnnie Lr MD [address] [facility] [place] [address] 01/04/2025 9:50 AM CDT Office Visit [facility] Family Medicine - [place] [address] [facility] [address] [place] [address] Emily Jordan MD [address] [place] [address] documented as of this encounter Visit Diagnoses Not on filedocumented in this encounter Additional Health Concerns Assessment Noted Time PHQ-9 Depression Total Score: 13 022 9:37 AM OYSTER BUYER documented as of this encounter Care Teams Marketing Services Rep Relationship Specialty [place] [address] [facility] [place] [address] PCP - General FAMILY PRACTICE 09/29/21 06/08/24 [place] [address] [facility]. [address] [place] [address] RHEUMATOLOGY 09/27/20 documented as of this encounter
--- OUTSIDE RECORDS SUMMARY | 2024-08-29 09:58 | XMS_ITS | Encounter Summary ---
Author Organization [facility] Address [address] [place] [address]. [place] [address] [place] [address] Care Team Providers Care Can Solderer Name Role Phone Gladis Song MD Unavailable Thi Lugo MD Primary Care Provider [phone] Encounter Details Date Type Department Care Team (Latest Contact Info) Description 01/11/2022 12:24 PM CDT - 01/11/2022 11:59 PM T Hospital Encounter [facility] [address] [place] [address] [place] [address] [place], [place] [id number] Discharge Disposition: Home or Self Care (Routine Discharge) Social History Tobacco Use Types Packs/Day Years Used Date Smoking Tobacco: Never Smokeless Tobacco: Never Alcohol Use Standard Drinks/Week Comments Yes 0 (1 standard drink = 0.6 oz pur e alcohol) up 2 glasses of wine/month PHQ-2 Answer Date Recorded PHQ-2 Score - If the patient scores above 3, please move on to questions 3-9 4 09/29/2021 Comments No Sex and Gender Information Value Date Recorded Sex Assigned at Not on file Legal Sex Female 10:22 PM DIVISION SUPERVISOR Gender Identity Female 09/12/2021 9:51 AM DIVISION SUPERVISOR Sexual Orientation Straight 09/12/2021 9: 51 AM DIVISION SUPERVISOR COVID-19 Exposure Response Date Recorded In the last 10 days, have eliana u been in contact with someone who was confirmed or suspected to have Coronavirus/COVID-19? No / Unsure 01/11/2022 6:53 AM CDT documented as of this encounter [...] mcg total) daily. 11/30/2014 albuterol sulfate HFA (VENTOLIN HFA) 108 (90 Base) MCG/ACT inhalerIndications: Shortness of breath Inhale 2 puffs into the lungs every 4 (four) hours as needed for Wheezing. 8 g 3 11/29/2020 2 amoxicillin-clavula dimitris (AUGMENTIN) 875-125 MG tabletIndications:S ore throat,Pharyngitis due to Streptococcus species Take 1 tablet (875 mg total) by mouth 2 (two) times daily for 10 days. 20 tablet 01/11/2022 2 apixaban 5 MG tablet TAKE 1 TABLET BY MOUTH TWICE A DAY 03/07/2020 2 B-D 3CC LUER-KAILASH SYR 22GX1 22G X 1 3 ML Misc 11/25/2019 4 bisoprolol 5 MG tablet TAKE 1 TABLET BY MOUTH EVERY DAY 03/22/2020 3 calcium carbonate-vitamin D (OSCAL 500/200 D-3) 500-200 MG-UNIT Tab Take by mouth daily. 2 etodolac 400 MG tablet 2 fluticasone 110 MCG/ACT inhaler Inhale 2 puffs into the lungs 2 (two) times daily. 03/31/2019 2 folic acid 1 MG tablet Take 1 mg by mouth daily. 05/14/2018 2 furosemide 20 MG tablet TAKE 1 TABLET BY MOUTH EVERY DAY 06/16/2019 3 hydroxychloroquine 200 MG tablet Take 200 mg by mouth 2 (two) times daily. 05/14/2018 2 methotrexate 2.5 MG tablet 08/17/2021 4 methylPREDNISolone, RED, 4 MG tabletIndications:W heezing 6 TABLETS ON DAY ONE, 5 TABLETS DAY TWO, 4 TABLETS DAY THREE, 3 TABLETS DAY FOUR, 2 TABLETS DAY FIVE, AND 1 TABLET DAY SIX 1 each 01/11/2022 2 montelukast 10 MG tablet TAKE 1 TABLET BY MOUTH EVERY DAY EVERY NIGHT 02/16/2020 3 PANTOPRAZOLE EC 40 MG tabletIndications:G astroesophageal reflux disease without esophagitis TAKE 1 TABLET BY MOUTH TWICE A DAY 180 tablet 1 09/09/2020 3 PARoxetine 20 MG tabletIndications:A nxiety state Take 1 tablet (20 mg total) by mouth daily. 90 tablet 1 07/25/2021 2 potassium chloride CR 20 MEQ tablet TAKE 2 TABLETS EVERY MORNING AND 2 TABLETS EVERY EVENING 01/04/2020 4 sucralfate 1 G tabletIndications:G ERD without esophagitis Take 1 tablet (1 g total) by mouth 4 (four) times daily before meals and nightly. 40 tablet 10/25/2021 2 documented as of this encounter Plan of Treatment Upcoming Encounters Date Type Department Care Team (Late st Contact Info) Description 10/02/2024 11:40 AM DIVISION SUPERVISOR Office Visit [facility] Multispecialty Care - [facility] [address] [facility] [place] [address] Johnnie Lr MD [address] [facility] [address] [place] [address] 01/04/2025 9:50 AM CDT Office Visit [facility] Family Medicine - [place] [address] [place] [address] Emily Jordan MD [address] [place] [address] documented as of this encounter Procedures Procedure Name Priority Date/Time Associated Diagnosis Comments CORONAVIRUS (COVID 19) Routine 01/11/2022 7:35 AM CDT documented in this encounter Results * CORONAVIRUS (COVID 19) (01/11/2022 7:35 AM CDT) SPECIMEN SOURCE NASAL 12:57 PM CDT [facility] CORONAVIRUS SARS COV 2 PCR (RESP) NEGATIVE NEGATIVE 01/12/2022 6:37 PM CDT [facility] Comment: THE SARS-CoV-2 TEST HAS BEEN AUTHORIZED BY THE FDA UNDER AN EUA FOR USE BY AUTHORIZED LABORATORIES. PERFORMED BY NUCLEIC ACID AMPLIFICATION PCR FIRST TEST [facility] 01/11/2022 12:57 PM CDT [facility] EMPLOYED IN HEALTHC[facility] 01/11/2022 12:57 PM CDT [facility] SYMPTOMATIC DEFINED BY CDC [facility] 01/11/2022 12:57 PM CDT [facility] DATE OF SYMPTOM ONSET [facility] 01/11/2022 12:57 PM CDT [facility] HOSPITALIZATION STATUS [facility] 01/11/2022 12:57 PM CDT [facility] RESIDENT OF [facility] 01/11/2022 12:57 PM CDT [facility] 01/11/2022 7:35 AM CDT us Yolie SHELDON MICROBIOLOGY - GENERAL ORDER RADHA Final Result [facility] [address] [place] [address], [facility] [address] [place] [address], documented in this encounter Visit Diagnoses Diagnosis Suspected COVID-19 virus infection documented in this encounter Additional Health Concerns Infection Onset Date Last Indicated Resolved Time COVID-19 Rule Out 01/11/2022 01/11/2022 01/11/2022 12:56 PM CDT COVID-19 Rule Out 01/11/2022 01/11/2022 01/12/2022 6:38 PM CDT Assessment Noted Time PHQ-9 Depression Total Score: 13 022 9:37 AM DIVISION SUPERVISOR documented as of this encounter Care Teams Can Solderer Relationship Specialty [place] [address] [address] [place] [address] PCP - General FAMILY PRACTICE 09/29/21 06/08/24 [place] [address] [facility]. [facility] [address] [place] [address] RHEUMATOLOGY 09/27/20 documented as of this encounter
--- OUTSIDE RECORDS SUMMARY | 2024-08-29 09:58 | XMS_ITS | Encounter Summary ---
Author Organization [facility] Address [address] [place] [address]. [place], [place] [address] [place] [address] Care Team Providers Care Delicatessen Store Manager Name Role Phone Gladis Song MD Unavailable Thi Lugo MD Primary Care Provider [phone] Reason for Visit * Auth/Cert Specialty Diagnoses / Procedures Referred By Valerie florian Referred To Contact Diagnoses H25.12 Procedures REMV CATARACT EXTRACAP,INSERT LENS CATARACT REMOVAL WITH IOL IMPLANT Referral ID Status Reason Start Date Expiration Date Visits Re quested Visits Authorized [id number] 1 1 Encounter Details Date Type Department Care Team (Late st Contact Info) Description 04/23/2022 9:06 AM CDT Anesthesia Event [facility] [address] [place] [address] Renetta Beverly CRNA [address] [place] [address] Rula Colmenares CRNA [address] [place] [address] Anesthesia Record Procedure Summary Procedure Name Responsible Anesthesiologist Anesthesia Start Time Anesthesia Stop Time CATARACT REMOVAL WITH IOL IMPLANT (Left: Eye) Renetta Beverly CRNA 04/23/22 0906 04/23/22 0924 Events Date Time Event Comment 04/23/2022 0818 0818 AN ENERGY DIRECTOR Prepped 0906 An Start Patient ID and consent checked and patient reassessed. 0906 An Start Data 0910 AN Immediate Reassess The pa tient was reevaluated immediately before sedation or regional anesthesia. 0910 Anesthesia Ready 0924 An Stop 0924 an stop data 0925 Post Anesthetic Care Handoff I completed my [...] midazolam 2 mg/2 mL injection 1 mg sodium chloride 0.9 % flush 5 mL * Agents Name O2 * Blood No blood administrations on file. Lines, Drains, and Airways Type Details Placement Removal Peripheral IV Placement Date: 04/23/22; Placement Time: 818; Placed Outside of This Facility?: No; Size: 22 G; Orientation: Proximal, Right; Location: Antecubital; Site Prep: Chlorhexidine; Inserted By: Cherry; Insertion attempts: 1; Ultrasound-guided Placement?: No; Patient Tolerance: Tolerated well; Removal Date: 04/23/22; Removal Time: 935; Removal Reason: Patient Discharged 04/23/22 0819 by Lesley Willis RN 04/23/22 0936 by Mendy Ventura APRN Surgical/Incision 04/23/22; 921; Surgical Wound; Eye; Left; eye shield, tape; 04/23/22; 1150 04/23/22 09 by Erma Light RN 04/23/22 1150 by Automatic Discharge Provider documented in this [...] please move on to questions 3-9 0 04/18/2022 Comments No Sex and Gender Information Value Date Recorded Sex Assigned at Not on file Legal Sex Female 10:22 PM BOX SEALING MACHINE CATCHER Gender Identity Female 09/12/2021 9:51 AM BOX SEALING MACHINE CATCHER Sexual Orientation Straight 09/12/2021 9: 51 AM BOX SEALING MACHINE CATCHER COVID-19 Exposure Response Date Recorded In the last 10 days, have yo u been in contact with someone who was confirmed or suspected to have Coronavirus/COVID-19? No / Unsure 04/23/2022 7:57 AM CDT documented as of this encounter OR Notes * Anesthesia Postprocedure Evaluation - Renetta Beverly CRNA - 04/23/2022 9:25 AM CDT Anesthesia Post-op Note Chio Orantes Procedure(s): CATARACT REMOVAL WITH IOL IMPLANT (Left Eye) Anesthesia type: MAC Vitals: 04/23/228[address] BP: (Abnormal) 149/68 Vitals: 04/23/22812 Pulse: 65 There were no vitals filed for this visit. Vitals: 04/23/22812 Temp: 37.1 ??C Vitals: 04/23/228[address] SpO2: 98% Patient Location: Phase II/Outpatient Level of Consciousness: awake Pain Management: adequate analgesia Airway Patency: patent Respiratory Status: acceptable Cardiovascular Status: acceptable Post-Op Nausea: none Postoperative Hydration: euvolemic There were no known complications for this encounter. * Anesthesia Preprocedure Evaluation - Rula Colmenares CRNA - 04/18/2022 11:36 AM CDT Anesthesia ROS/MED History Reviewed: Patient summary , Nursing notes , Family history anesthesia, Anesthesia history , Medications Pre-Anesthetic State: alert, awake and responds appropriately Pulmonary (+) sleep apnea, asthma Cardiovascular Exercise tolerance:good (+) hypertension, CAD, CHF, arrhythmia, (A-fib), hyperlipidemia Neuro/Psych (+) neuromuscular disease, (neuropathy), CVA GI/Hepatic/Renal (+) GERD Endo/Other GENERAL COMMENTS RLS Lupus Physical Evaluation Airway Mallampati: III TM Distance: [...] st Contact Info) Description 10/02/2024 11:40 AM BOX SEALING MACHINE CATCHER Office Visit [facility] Multispecialty Care - [facility] [address] [facility] [place] [address] Johnnie Lr MD [address] [facility] [address] [place] [address] 01/04/2025 9:50 AM CDT Office Visit [facility] Family Medicine - [place] [address] [place], [place] [address] Emily Jordan MD [address] [place] [address] documented as of this encounter Visit Diagnoses Not on filedocumented in this encounter Administered Medications Inactive Administered Medications - up to 3 most recent administrations Medication Order MAR Action Action Date Dose Rate Site midazolam (VERSED) injection Intravenous, PRN, Starting on Sat04/23/22 at 0906, Until Sat04/23/22 at 0924, Anesthesia Intra-Op Given 04/23/2022 9:06 AM CDT 1 mg sodium chloride (PF) 0.9 % flush Intravenous, PRN, Starting on Sat04/23/22 at 0906, Until Sat04/23/22 at 0924, Anesthesia Intra-Op Given 04/23/2022 9:06 AM CDT 5 mLs documented in this encounter Additional Health Concerns Assessment Noted Time PHQ-9 Depression Total Score: 13 022 9:37 AM BOX SEALING MACHINE CATCHER documented as of this encounter Care Teams Delicatessen Store Manager Relationship Specialty [place] [address] [address] [place] [address] PCP - General FAMILY PRACTICE 09/29/21 06/08/24 [place] [address] [place] [address] RHEUMATOLOGY 09/27/20 documented as of this encounter
--- OUTSIDE RECORDS SUMMARY | 2024-08-29 09:58 | XMS_ITS | Encounter Summary ---
Author Organization [facility] Address [address] [place] [address]. [place] [address] [place] [address] Care Team Providers Care Yard Coupler Name Role Phone Gladis Song MD Unavailable Thi Lugo MD Primary Care Provider [phone] Reason for Referral * Consultation/Treatment (Routine) - Closed Specialty Diagnoses / Procedures Referred By Contact Referred To Contact Nurse Practitioner Family / GASTROENTEROLOGY Diagnoses GERD without esophagitis [place] [id number] [facility]. [address] [place] [address] Phone: tel: fax: Jaclyn Frost NP 3 [facility] [address] [place] [address] Phone: tel:[phone] fax:[phone] Referral ID Status Reason Start Date Expiration Date Visits Re quested Visits Authorized [id number] Closed 05/04/2022 06/05/2023 100 100 Reason for Visit * Reason Comments Acute Note Cramps in back of le gs / issues with stomach / and other issues Encounter Details Date Type Department Care Team (Late st Contact Info) Description 05/04/2022 9:40 AM CDT Office Visit [facility] Family & Internal Medicine - [place] [address] [place] [address] [place] [address] [facility]. [address] [place] [address] Acute Note (Cramps in back of legs / issues with stomach / and other issues) Social History Tobacco Use Types Packs/Day Years Used Date Smoking Tobacco: Never Smokeless Tobacco: Never Tobacco Cessation:Counseling Given: No Alcohol Use Standard Drinks/Week Comments Yes 0 (1 standard drink = 0.6 oz pur e alcohol) up 2 glasses of wine/month PHQ-2 Answer Date Recorded PHQ-2 Score - If the patient scores above 3, please move on to questions 3-9 0 05/04/2022 Comments No Sex and Gender Information Value Date Recorded Sex Assigned at Not on file Legal Sex Female 10:22 PM TOXICOLOGIST Gender Identity Female 09/12/2021 9:51 AM TOXICOLOGIST Sexual Orientation Straight 09/12/2021 9: 51 AM TOXICOLOGIST COVID-19 Exposure Response Date Recorded In the last 10 days, have yo u been in contact with someone who was confirmed or suspected to have Coronavirus/COVID-19? No / Unsure 05/04/2022 9:31 AM CDT documented as of this encounter Last Filed Vital Signs Vital Sign Reading Time Taken Comments Blood Pressure 123/72 05/04/2022 9:34 AM CDT Pulse 73 05/04/2022 9:34 AM CDT Temperature 36.7 ??C (98 ??F) 05/04/2022 9:34 AM CDT Respiratory Rate 16 05/04/2022 9:34 AM CDT Oxygen Saturation 97% 05/04/2022 9:34 AM CDT Inhaled Oxygen Concentration - - Weight 66.2 kg (146 lb) 05/04/2022 9:34 AM CDT Height 149.9 cm (4' 11 ) 05/04/2022 9:34 AM CDT Body Mass Index 29.49 05/04/2022 9:34 AM CDT documented in this encounter Patient Instructions * Patient Instructions* Thi Lugo MD - 05/04/2022 9:40 AM CDT Okay to take dicyclomine 10 mg as needed only for abdominal cramps DO NOT TAKE Methscopolamine cARAFATE is only for peptic ulcer and gastritis flare up. Do not take it daily Increase pantoprazole to twice daily for 10 days only documented in this encounter Progress Notes * Thi Lugo MD - 05/04/2022 9:40 AM CDT Reason for Visit: Acute Note (Cramps in back of legs / issues with stomach / and other issues) History of Present Illness: HPI Miss Chio Orantes??is a??pleasant??71-year-old female with complex past and current medical history but not limited to asthma, CVA was on Eliquis: now aspirin only, heart failure preserved ejection fraction, on methotrexate for SLE,??restless legs and hypertension was seen today? for acute issues. Leg cramps: She states her both legs tighten up at night. Has associated neuropathy and RLS. Associated numbness and tingling Denies claudication. Stomach problem She had cramps LLQ and diarrhea. Symptoms resolved . intermittent episodes. No blood in stools. Has questions about meds PRN or daily. Has taken bentyl PRN. - 10 mg Last EGD was before COVID. Per last office note: Specialists 1. cardiolo [...] chest pain, palpitations and leg swelling. Gastrointestinal: Positive for abdominal pain, diarrhea and heartburn. Negative for constipation, nausea and vomiting. Endocrine: Negative for polyuria. Genitourinary: Negative for dysuria, hematuria and pelvic pain. Musculoskeletal: Negative for arthralgias. Neurological: Positive for tingling and numbness. Negative for dizziness, syncope and headaches. Psychiatric/Behavioral: Negative for behavioral problems. Medications: Current Outpatient Medications: ??? ALBUTEROL SULFATE HFA 108 (90 Base) MCG/ACT inhaler, INHALE 2 PUFFS INTO THE LUNGS EVERY 4 (FOUR) HOURS NEEDED FOR WHEEZING., Disp: 18 g, Rfl: 1 ??? aspirin 81 MG chewable tablet, Chew 1 tablet (81 mg total) by mouth daily., Disp: 30 tablet, Rfl: 0 ??? atorvastatin 80 MG tablet, TAKE 1 TABLET BY MOUTH EVERY DAY, Disp: , Rfl: ??? B-D 3CC LUER-KAILASH SYR 22GX1 22G X 1 3 ML Misc, USE ONCE A MONTH DIRECTED WITH METHOTREXATE,Disp: , Rfl: ??? bisoprolol 5 MG tablet, TAKE 1 TABLET BY MOUTH EVERY DAY, Disp: , Rfl: ??? calcium carbonate 600 MG tablet, Take by mouth daily., Disp: , Rfl: ??? Cholecalciferol (VITAMIN D3) 50 MCG (1999 UT) Cap, take 1 by Oral route every day, Disp: , Rfl: ??? folic acid 1 MG tablet, Take 1 mg by mouth daily., Disp: , Rfl: ??? furosemide 20 MG tablet, TAKE 1 TABLET BY MOUTH EVERY DAY, Disp: , Rfl: ??? gabapentin (NEURONTIN) 100 MG capsule, Take 2 capsules (200 mg total) by mouth nightly., Disp: 60 capsule, Rfl: 2 ??? methotrexate 2.5 MG tablet, , Disp: [...] DAY, Disp: 180 tablet, Rfl: 1 ??? PAROXETINE 20 MG tablet, TAKE 1 TABLET BY MOUTH EVERY DAY, Disp: 90 tablet, Rfl: 0 ??? potassium chloride CR 20 MEQ tablet, TAKE 2 TABLETS EVERY MORNING AND 2 TABLETS EVERY EVENING, Disp: , Rfl: ??? sucralfate (CARAFATE) 1 G tablet, Take 1 tablet (1 g total) by mouth 4 (four) times daily before meals and nightly., Disp: 40 tablet, Rfl: 0 ??? vitamin C 1000 MG tablet, Take 1,000 mg by mouth daily., Disp: , Rfl: Allergies Allergen Reactions ??? [...] Normal breath sounds. No wheezing. Abdominal: General: Abdomen is flat. Bowel sounds are normal. There is no distension. Palpations: Abdomen is soft. Tenderness: There is no guarding or rebound. Comments: Mild epigastric tenderness to palpation. Musculoskeletal: Right lower leg: No edema. Left lower leg: No edema. Skin: General: Skin is warm. Neurological: Mental Status: She is alert and oriented to person, place, and time. Psychiatric: Mood and Affect: Mood normal. Behavior: Behavior normal. Judgment: Judgment normal. Filed Vitals: 05/04/22 0934 BP: 123/72 Pulse: 73 Resp: 16 Temp: 98 ??F (36.7 ??C) TempSrc: Temporal SpO2: 97% Weight: 66.2 kg (146 lb) Height: 4' 11 (1.499 m) Diagnoses/Impression: 1. Leg cramps, sleep related gabapentin (NEURONTIN) 100 MG capsule 2. GERD without esophagitis sucralfate (CARAFATE) 1 G tablet Ambulatory referral to Gastroenterology ([facility]) 3. Peptic ulcer disease Ambulatory referral to Gastroenterology ([facility]) Recommendations and Plan: Extensive medication counseling for home medications done. Advised okay to take Bentyl as needed for abdominal cramps. Will start Carafate for gastritis today. Increase PPI to twice daily for the next 10 days. GI referral for repeat EGD. Will start gabapentin at bedtime. Discussed common side effects of medication. Follow-up in 2 months as scheduled. She voiced understanding and agrees with the plan. All questions answered. Orders Placed This Encounter ??? Ambulatory referral to Gastroenterology ([facility]) ??? sucralfate (CARAFATE) 1 G tablet ??? gabapentin (NEURONTIN) 100 MG capsule Reviewed and updated this visit by provider: Meds Problems Thi Lugo MD Referring Provider: No ref. provider found PCP: Thi Lugo MD documented in this encounter Plan of Treatment Upcoming Encounters Date Type Department Care Team (Late st Contact Info) Description 10/02/2024 11:40 AM TOXICOLOGIST Office Visit [facility] Multispecialty Care - [address] [place] [address] Johnnie Lr MD [address] [place] [address] [address] [place] [address] 01/04/2025 9:50 AM CDT Office Visit [facility] Family Medicine - [place] [address] [place] [address] Emily Jordan MD [address] [place] [address] Scheduled Referrals Name Type Priority Associated Diagnoses Orde r Schedule Ambulatory referral to Gastroenterology ([facility]) Referral Routine GERD without esophagitis Peptic ulcer disease Ordered: 05/04/2022 documented as of this encounter Visit Diagnoses Diagnosis Leg cramps, sleep related- Primary Sleep related leg cramps GERD without esophagitis Esophageal reflux Peptic ulcer disease Peptic ulcer, unspecified site, unspecified as acute or chronic, without mention of hemorrhage, perforation, or obstruction documented in this encounter Additional Health Concerns Assessment Noted Time PHQ-9 Depression Total Score: 2 05/04/20 22 9:39 AM CDT documented as of this encounter Care Teams Yard Coupler Relationship Specialty [place] [address] [facility]. [address] [place] [address] PCP - General FAMILY PRACTICE 09/29/21 06/08/24 [place] [address] [facility]. [facility] [address] [place] [address] RHEUMATOLOGY 09/27/20 documented as of this encounter
--- OUTSIDE RECORDS SUMMARY | 2024-08-29 09:58 | XMS_ITS | Encounter Summary ---
Author Organization [facility] Address Formerly [facility]. [place], [place] [address] [place] [address] Care Team Providers Care Interior Design Project Manager Name Role Phone Gladis Song MD Unavailable Thi Lugo MD Primary Care Provider [phone] Reason for Referral * Imaging (Routine) - Closed Specialty Diagnoses / Procedures Referred By Contvannessa t Referred To Contact RADIOLOGY Diagnoses Pulmonary nodules/lesions, multiple Procedures CT CHEST WO CON Mariola Olmos MD [address] [address] Phone: tel: fax: Referral ID Status Reason Start Date Expiration Date Visits Re quested Visits Authorized [id number] Closed 03/29/2022 09/25/2022 2 2 Reason for Visit * Reason Comments Abnormal Imaging Results Cough Has issues with coug h since december for 2021 when she was hospitalized, she says he occasionally will bring up light yellow mucus, but has issues with a dry cough every night. * Consultation/Treatment (Routine) - Closed Specialty Diagnoses / Procedures Referred By Contvannessa t Referred To Contact SLEEP & RESPIRATORY CARE Diagnoses Diffuse interstitial pulmonary fibrosis (CMS/HCC HHS/HCC) Pulmonary nodules [place] [address] [place] [address] Phone: tel: fax: Mariola Olmos MD 3 [facility] [address] [place] [address] Phone: tel:[phone] fax: Referral ID Status Reason Start Date Expiration Date V isits Requested Visits Authorized [id number] Closed Specialty Services 10/02/2021 10/30/2022 100 100 Encounter Details Date Type Department Care Team (Latest Contact Info) Description 02/05/2022 9:00 AM CDT Office Visit [facility] Multispecialty Care - [address] [place] [address] Mariola Olmos MD [address] [place] [address] [id number] Abnormal Imaging Results; Cough (Has issues with cough since december for 2021 when she was hospitalized, she says he occasionally will bring up light yellow mucus, but has issues with a dry cough every night. ) Social History Tobacco Use Types Packs/Day [...] on file Legal Sex Female 10:22 PM MESS COOK Gender Identity Female 09/12/2021 9:51 AM MESS COOK Sexual Orientation Straight 09/12/2021 9: 51 AM MESS COOK COVID-19 Exposure Response Date Recorded In the last 10 days, have yo u been in contact with someone who was confirmed or suspected to have Coronavirus/COVID-19? No / Unsure 02/05/2022 8:38 AM CDT documented as of this encounter Last Filed Vital Signs Vital Sign Reading Time Taken Comments Blood Pressure 124/80 02/05/2022 8:53 AM CDT Pulse 73 02/05/2022 8:53 AM CDT Temperature 36.8 ??C (98.2 ??F) 02/05/2022 8:53 AM CD T Respiratory Rate 12 02/05/2022 8:53 AM CDT Oxygen Saturation 98% 02/05/2022 8:53 AM CDT Inhaled Oxygen Concentration - - Weight 68 kg (150 lb) 02/05/2022 8:53 AM CDT Height 149.9 cm (4' 11 ) 02/05/2022 8:53 AM CDT Body Mass Index 30.3 02/05/2022 8:53 AM CDT documented in this encounter Patient Instructions * Patient Instructions* Mariola Olmos MD - 02/05/2022 9:14 AM CDT - Repeat CT scan of your chest at the end of next month - Pulmonary function testing - Allergy testing, positive Singulair 5 days before this - Swallow study - Labs including the allergy testing and a CBC - Plan to follow-up with me in 3 months documented in this encounter Progress Notes * Mariola Olmos MD - 02/05/2022 9:00 AM CDT [facility] PULMONARY MEDICINE History Chief Complaint Patient presents with ??? Abnormal Imaging Results ??? Cough Has issues with cough since december for 2021 when she was hospitalized, she says he occasionally will bring up light yellow mucus, but has issues with a dry cough every night. Referring provider: Thi Lugo MD Chio Orantes is a 71-year-old female with a past medical history of obstructive sleep apnea, reported history of asthma, hypertension, lupus, prior stroke who is referred to pulmonary clinic for evaluation of pulmonary nodules. She was diagnosed [...] ??? HC TRIGGER FINGER RELEASE ??? HYSTERECTOMY Social History Tobacco Use ??? Smoking status: [...] Sig Dispense Refill ??? albuterol sulfate HFA (VENTOLIN HFA) 108 (90 Base) MCG/ACT inhaler Inhale 2 puffs into the lungs every 4 (four) hours as needed for Wheezing. 8 g 3 ??? apixaban 5 MG tablet TAKE 1 TABLET BY MOUTH TWICE A DAY ??? atorvastatin 80 MG tablet TAKE 1 TABLET BY MOUTH EVERY DAY ??? bisoprolol 5 MG tablet TAKE 1 TABLET BY MOUTH EVERY DAY ??? calcium carbonate 600 MG tablet Take by mouth daily. ??? Cholecalciferol (VITAMIN D3) 50 MCG (2000 UT) Cap take 1 by Oral route every day ??? folic acid 1 MG tablet Take 1 mg by mouth daily. ??? furosemide 20 MG tablet TAKE 1 TABLET BY MOUTH EVERY DAY ??? hydroxychloroquine 200 MG tablet Take 200 mg by mouth 2 (two) times daily. ??? methotrexate 2.5 MG tablet ??? montelukast 10 MG tablet TAKE 1 TABLET BY MOUTH EVERY DAY EVERY NIGHT ??? nitroglycerin 0.4 MG SL tablet May repeat dose every 5 minutes for up to 3 doses total. ??? PANTOPRAZOLE EC 40 MG tablet TAKE 1 TABLET BY MOUTH TWICE A DAY 180 tablet 1 ??? PAROXETINE 20 MG tablet TAKE 1 TABLET BY MOUTH EVERY DAY 90 tablet 0 ??? potassium chloride CR 20 MEQ tablet TAKE 2 TABLETS EVERY MORNING AND 2 TABLETS EVERY EVENING ??? vitamin C 1000 MG tablet Take 1,000 mg by mouth daily. ??? B-D 3CC LUER-KAILASH SYR 22GX1 22G X 1 3 ML Misc USE ONCE A MONTH DIRECTED WITH METHOTREXATE ??? etodolac 400 MG tablet ??? sucralfate 1 G tablet Take 1 tablet (1 g total) by mouth 4 (four) times daily before meals and nightly. 40 tablet 0 No current facility-administered medications for this visit. Allergies Allergen Reactions ??? Latex Rash ??? Sulfa Antibiotics Swelling ??? Levofloxacin Headache and Nausea Only ??? Nitrofurantoin Headache Immunization History Administered Date(s) Administered ? ? Fluzone High Dose - >Age 65 (Prefilled Syringe) 05/30/2020, 05/30/2020, 07/18/2021 ??? Influenza 06/28/2009, 06/05/2011, 07/03/2012, 05/21/2013, 05/17/2015, 05/03/2017 ??? Influenza Adult (Generic) 05/28/2014, 07/13/2016, 07/16/2016, 05/15/2017, 07/03/2018, 06/02/2019 ??? MODERNA COVID-19, MRNA, LNP-S, PF, 100 MCG/ 0.5 ML DOSE 10/21/2020, 11/18/2020 ??? PFIZER COVID-19 (ORIGINAL FORMULATION, PURPLE CAP), MRNA, LNP-S, PF, 30 MCG/0.3 ML DOSE 08/07/2021 ??? Pneumococcal (Pneumovax 23) 05/28/2014 ??? Pneumococcal (Prevnar 13) 05/22/2017 Review of Systems Constitutional: Negative for chills, fever and weight loss. HENT: Negative for ear pain, hearing loss and nosebleeds. Eyes: Negative for blurred vision, double vision and redness. Respiratory: Positive for cough and shortness of breath. Negative for hemoptysis, sputum productionand wheezing. Cardiovascular: Negative for chest pain, palpitations, orthopnea, leg swelling and PND. Gastrointestinal: Negative for heartburn, nausea and vomiting. Genitourinary: Negative for dysuria, frequency and urgency. Musculoskeletal: Negative for myalgias. Skin: Negative for rash. Neurological: Negative for dizziness, tingling and headaches. Endo/Heme/Allergies: Does not bruise/bleed easily. Psychiatric/Behavioral: Negative for depression and suicidal ideas. Physical Exam Filed Vitals: 02/05/22 0853 BP: 124/80 Pulse: 73 Resp: 12 Temp: 98.2 ??F (36.8 ??C) TempSrc: Temporal SpO2: 98% Weight: 68 kg (150 lb) Height: 4' 11 (1.499 m) Body mass index is 30.3 kg/m??. Physical Exam: General: Alert, pleasant, in NAD Neuro: Alert, appropriate Psych: Affect normal Head: NC, AT EENT: No Sinus tenderness to palpation, mallampati 2 Neck: Supple Lymph: No appreciable cervical lymphadenopathy Respiratory: non-labored, ctab, no wheezes/crackles Cardiovascular: s1,s2, rrr, no audible murmur GI: non-distended, bs+ Musc: Bilateral wrist ROM wnl Ext: no edema, no clubbing Skin: No visible rashes, No visible tattoos MICRO: 01/11/2022 SARS-CoV-2 negative 09/08/2021 SARS-CoV-2 positive PFTs: None Sleep Studies: None CXR 01/09/2022 Images personally reviewed. Clear lung madrigal bilaterally. CT Chest 09/29/2021 Images personally reviewed. Multiple pulmonary nodules. Majority less than 6 mm, largest approximately 6.7 mm. There is no fibrotic lung disease Pertinent Labs Reviewed Assessment 1. Multiple pulmonary nodules -low risk 2. History of asthma 3. Dyspnea on exertion -consider underlying asthma, deconditioning, obesity. Postacute COVID syndrome. 4. Chronic cough Plan - Repeat CT scan of the chest end of March to follow-up on the pulmonary nodules - Complete PFT with and without bronchodilator - Swallow evaluation - Labs: Region 8 allergy panel and CBC for eosinophil count - Pause Singulair for 5 days prior to allergy testing, can resume after. Pending pulmonary functiontesting and allergy panel testing will adjust current medication therapy Return in about 3 months (around 05/08/2022). Mariola Olmos MD documented in this encounter Plan of Treatment Upcoming Encounters Date Type Department Care Team (Late st Contact Info) Description 10/02/2024 11:40 AM MESS COOK Office Visit [facility] Multispecialty Care - [facility] [address] [facility] [place] [address] Mariola Olmos MD 3 [facility] [address] [place] [address] 01/04/2025 9:50 AM CDT Office Visit [facility] Family Medicine - [place] [address] [place] [id number] Emily Jordan MD [address] [place], [place] [id number] documented as of this encounter Results * (ABNORMAL) CBC W/DIFF AUTOMATED (05/23/2022 1:57 PM CDT) WBC 4.1(L) 4.5 - 11.0 x10'3/uL 05/23/2022 2:20 PM CDT [facility] RBC 4.46 4.20 - 5.40 x10'6/uL 05/23/2022 2:20 PM CDT [facility] HGB 13.1 12.0 - 16.0 G/DL 05/23/2022 2:20 PM CDT [facility] HCT 42.1 38.0 - 48.0 % 05/23/2022 2:20 PM CDT [facility] MCV 94.4 81.0 - 99.0 FL 05/23/2022 2:20 PM CDT [facility] MCH 29.4 27.0 - 31.0 PG 05/23/2022 2:20 PM CDT [facility] MCHC 31.1(L) 32.0 - 36.0 G/DL 05/23/2022 2:20 PM CDT [facility] RDW 14.8(H) 11.5 - 14.5 % 05/23/2022 2:20 PM CDT [facility] PLT 214 130 - 400 x10'3/uL 05/23/2022 2:20 PM CDT [facility] MPV 9.5 9.3 - 12.2 FL 05/23/2022 2:20 PM CDT [facility] DIFFERENTIAL TYPE AUTOMATED DIFFERENTIAL 05/23/2022 2:20 PM CDT [facility] NEUTROPHILS % 53.4 % 05/23/2022 2:20 PM CDT [facility] LYMPHOCYTES % 30.4 % 05/23/2022 2:20 PM CDT [facility] MONOCYTES % 12.3 % 05/23/2022 2:20 PM CDT [facility] EOSINOPHILS 2.5 % 05/23/2022 2:20 PM CDT [facility] BASOPHILS 1.2 % 05/23/2022 2:20 PM CDT [facility] IMMATURE GRANS % 0.2 % 05/23/20 2:20 PM CDT [facility] ABS. NEUTROPHILS TOTAL 2.16 1.80 - 7.70 x10'3/uL 05/23/2022 2:20 PM CDT [facility] ABS. LYMPHOCYTES 1.23 1.00 - 4.80 x10'3/uL 05/23/2022 2:20 PM CDT [facility] ABS. MONOCYTES 0.50 0.24 - 0.86 x10'3/uL 05/23/2022 2:20 PM CDT [facility] ABS. EOSINOPHILS 0.10 0.04 - 0.36 x10'3/uL 05/23/2022 2:20 PM CDT [facility] ABS. BASOPHILS 0.05 0.01 - 0.08 x10'3/uL 05/23/2022 2:20 PM CDT [facility] ABS. IMMATURE GRANULOCYTES 0.01 0.00 - 0.49 x10'3/uL 05/23/2022 2:20 PM CDT [facility] 05/23/2022 1:57 PM CDT Mariola Olmos MD LABORATORY Final Result [facility] [address] [place] [id number], * ALLERGENS UPPER RESP (05/23/2022 1:57 PM CDT) [facility] RESPIRATORY ALLERGY PROF REG 8 REPORT 05/26/2022 7:00 PM CDT [place] MELINA NORWOOD Comment: ! ?! ? ! CONV! ?! !Allergen Name ? ! ?? kU/L ??!CLASS! NOTE ! !D. pteronyssinus (d1) . [...] . ! ??<0.10 ??! ??0 ??! ?! !Mehul Grass (g6) IgE. . . . . [...] ! ??<0.10 ??! ??0 ??! ?! !Maple ([place]) (t1) IgE. . . . . . . . ! ??<0.10 ??! ??0 ??! ?! !Mountain [place] (t6) IgE . . . . . . . . . ! ??<0.10 ??! ??0 ??! ?! ![place] (t7) IgE. . . . . . . . . . . . . . . ! ??<0.10 ??! ??0 ??! ?! !Elm (t8) IgE. . . . . . . . . . . . . . . ! ??<0.10 ??! ??0 ??! ?! ![place] Tree (t10) IgE . . . . . . . . . . ! ??<0.10 ??! ??0 ??! ?! ![place] (t11) IgE. . . . . . . . . . . . ! ??<0.10 ??! ??0 ??! ?! ![place] (t14) IgE. . . . . . . . . . . ! ??<0.10 ??! ??0 ??! ?! !White [place] (t15) IgE . . . . . . . . . . . ! ??<0.10 ??! ??0 ??! ?! ![place]ec[place] Tree (t22) IgE. . . . . . . ! ??<0.10 ??! ??0 ??! ?! !White [place] (t70) IgE. . . . . . . . . ! ??<0.10 ??! ??0 ??! ?! !Common Ragweed (Short) (w1) IgE . . . . . ! ??<0.10 ??! ??0 ??! ?! ![place] Thistle (w11) IgE . . . . [...] analytical performance characteristics have been determined by [facility]. It has not been cleared or approved by the U.S. Food and Drug Administration. The FDA has determined that such clearance or approval is not necessary. This assay has been validated pursuant to the CLIA regulations and is used for clinical purposes. Test Performed by Romel De Jesus, [facility], [address] [place] [address] Dmitry Xavier M.D., Ph.D., Director of Laboratories , [place] [id number] 05/23/2022 1:57 PM CDT Mariola Olmos MD LABORATORY Final Result [facility] [address], * CT CHEST WO CON (05/23/2022 1:55 [...] By: Ralph Lance MD, 05/25/2022 3:59 PM us Mariola Olmos MD CT Final Result * [facility] - XR SPEECH SWALLOW (02/23/2022 11:02 AM CDT) Anatomical Region Laterality Modality NA Radiographic Ashley ging, Radiographic Imaging 02/23/2022 11:2 4 AM CDT Impressions 02/23/2022 11:26 AM CDT IMPRESSION: 1. ??0.6 minutes OF FLUOROSCOPIC TIME WAS UTILIZED. 4 cine loop films obtained.. 2. ??Multiple consistencies of barium were given to the patient with speech pathology present.. There is no evidence of tracheal aspiration or tracheal penetration. Ordered By: MARIOLA OLMOS Interpreted By: Ace Bhatia, 02/23/2022 11:24 AM Narrative 02/23/2022 11:26 AM CDT IMAGING STUDIES: XR SPEECH SWALLOW [facility] ONLY ? DATE: 02/23/2022 10:27 AM CLINICAL HISTORY: Cough after eating ?? . Procedure Note Castillo Bhatia MD - 02/23/2022 IMAGING STUDIES: XR SPEECH SWALLOW [facility] ONLYDATE: 02/23/2022 10:27 AM CLINICAL HISTORY: Cough after eating . IMPRESSION: 1. 0.6 minutes OF FLUOROSCOPIC TIME WAS UTILIZED. 4 cine loop filmsobtained.. 2. Multiple consistencies of barium were given to the patient with speechpathology present.. There is no evidence of tracheal aspiration or tracheal penetration. Ordered By: MARIOLA OLMOS Interpreted By: Ace Bhatia, 02/23/2022 11:24 AM Mariola Olmos MD FLUOROSCOPY Final Result documented in this encounter Visit Diagnoses Diagnosis Pulmonary nodules/lesions, multiple- Primary Other nonspecific abnormal finding of lung field Chronic cough Cough Dyspnea on exertion Other dyspnea and respiratory abnormality Seasonal allergies Allergic rhinitis, cause unspecified Chronic cough Cough Pulmonary nodules/lesions, multiple Other nonspecific abnormal finding of lung field documented in this encounter Additional Health Concerns Assessment Noted Time PHQ-9 Depression Total Score: 13 022 9:37 AM MESS COOK documented as of this encounter Care Teams Interior Design Project Manager Relationship Specialty [place] [address] [address] [place] [address] PCP - General FAMILY PRACTICE 09/29/21 06/08/24 [place] [address] [place] [address] RHEUMATOLOGY 09/27/20 documented as of this encounter
--- OUTSIDE RECORDS SUMMARY | 2024-08-29 09:58 | XMS_ITS | Encounter Summary ---
Author Organization [facility] Address [address] [place] [address]. [place], [place] [address] [place] [address] Care Team Providers Care Coke Crane Operator Name Role Phone Gladis Song MD Unavailable Thi Lugo MD Primary Care Provider [phone] Encounter Details Date Type Department Care Team (Latest Contact Info) Description 01/11/2022 Travel Social History Tobacco Use Types Packs/Day [...] on file Legal Sex Female 10:22 PM LAB ASSISTANT Gender Identity Female 09/12/2021 9:51 AM LAB ASSISTANT Sexual Orientation Straight 09/12/2021 9: 51 AM LAB ASSISTANT COVID-19 Exposure Response Date Recorded In the last 10 days, have yo u been in contact with someone who was confirmed or suspected to have Coronavirus/COVID-19? No / Unsure 01/11/2022 6:53 AM CDT documented as of this encounter Plan of Treatment Upcoming Encounters Date Type Department Care Team (Late st Contact Info) Description 10/02/2024 11:40 AM LAB ASSISTANT Office Visit [facility] Multispecialty Care - [facility] [address] [facility] [place] [address] Johnnie Lr MD [address] [facility] [address] [place] [address] 01/04/2025 9:50 AM CDT Office Visit [facility] Family Medicine - [place] [address] [place] [address] Emily Jordan MD [address] [place] [address] documented as of this encounter Visit Diagnoses Not on filedocumented in this encounter Additional Health Concerns Infection Onset Date Last Indicated Resolved Time COVID-19 Rule Out 01/11/2022 01/11/2022 01/11/2022 7:34 AM CDT COVID-19 Rule Out 01/11/2022 01/11/2022 01/11/2022 12:56 PM CDT COVID-19 Rule Out 01/11/2022 01/11/2022 01/12/2022 6:38 PM CDT Assessment Noted Time PHQ-9 Depression Total Score: 13 022 9:37 AM LAB ASSISTANT documented as of this encounter Care Teams Coke Crane Operator Relationship Specialty [place] [address] [place] [address] PCP - General FAMILY PRACTICE 09/29/21 06/08/24 [place] [address] [facility] [place] [address] RHEUMATOLOGY 09/27/20 documented as of this encounter
--- OUTSIDE RECORDS SUMMARY | 2024-08-29 09:58 | XMS_ITS | Encounter Summary ---
Author Organization [facility] Address [address] [place] [address]. [place] [address] [place] [address] Care Team Providers Care Washer Cutter Name Role Phone Gladis Song MD Unavailable Thi Lugo MD Primary Care Provider [phone] Encounter Details Date Type Department Care Team (Latest Contact Info) Description 04/23/2022 Scan HEALTH INFO SRVCS Scanned, Documents Social History Tobacco Use Types Packs/Day Years [...] on file Legal Sex Female 10:22 PM INSECTICIDE SPRAYER Gender Identity Female 09/12/2021 9:51 AM INSECTICIDE SPRAYER Sexual Orientation Straight 09/12/2021 9: 51 AM INSECTICIDE SPRAYER COVID-19 Exposure Response Date Recorded In the last 10 days, have yo u been in contact with someone who was confirmed or suspected to have Coronavirus/COVID-19? No / Unsure 04/23/2022 7:57 AM CDT documented as of this encounter Plan of Treatment Upcoming Encounters Date Type Department Care Team (Late st Contact Info) Description 10/02/2024 11:40 AM INSECTICIDE SPRAYER Office Visit [facility] Multispecialty Care - [facility] [address] [facility] [place] [address] Johnnie Lr MD [address] [facility] [address] [place] [address] 01/04/2025 9:50 AM CDT Office Visit [facility] Family Medicine - [place] [address] [place] [address] Emily Jordan MD [address] [place] [address] documented as of this encounter Visit Diagnoses Not on filedocumented in this encounter Additional Health Concerns Assessment Noted Time PHQ-9 Depression Total Score: 13 022 9:37 AM INSECTICIDE SPRAYER documented as of this encounter Care Teams Washer Cutter Relationship Specialty [place] [address] [facility] [place] [address] PCP - General FAMILY PRACTICE 09/29/21 06/08/24 [place] [address] [facility] [place] [address] RHEUMATOLOGY 09/27/20 documented as of this encounter
--- OUTSIDE RECORDS SUMMARY | 2024-08-29 09:58 | XMS_ITS | Encounter Summary ---
Author Organization [facility] Address [address] [place] [address]. [place], [place] [id number] [place] [address] Care Team Providers Care Manager Of Finance Name Role Phone Gladis Song MD Unavailable Thi Lugo MD Primary Care Provider Encounter Details Date Type Department Care Team (Latest Contact Info) Description 05/04/2022 Travel Social History Tobacco Use Types Packs/Day [...] on file Legal Sex Female 10:22 PM AXMINSTER WEAVER Gender Identity Female 09/12/2021 9:51 AM AXMINSTER WEAVER Sexual Orientation Straight 09/12/2021 9: 51 AM AXMINSTER WEAVER COVID-19 Exposure Response Date Recorded In the last 10 days, have yo u been in contact with someone who was confirmed or suspected to have Coronavirus/COVID-19? No / Unsure 05/04/2022 9:31 AM CDT documented as of this encounter Plan of Treatment Upcoming Encounters Date Type Department Care Team (Late st Contact Info) Description 10/02/2024 11:40 AM AXMINSTER WEAVER Office Visit [facility] Multispecialty Care - [facility] [address] [facility] [place] [address] Johnnie Lr MD [address] [facility] [address] [place] [address] 01/04/2025 9:50 AM CDT Office Visit [facility] Family Medicine - [place] [address] [facility] [address] [place] [address] Emily Jordan MD [address] [place] [address] documented as of this encounter Visit Diagnoses Not on filedocumented in this encounter Additional Health Concerns Assessment Noted Time PHQ-9 Depression Total Score: 2 05/04/20 9:39 AM CDT documented as of this encounter Care Teams Manager Of Finance Relationship Specialty [place] [address] [facility] [place] [address] PCP - General FAMILY PRACTICE 09/29/21 06/08/24 [place] [address] [facility] [place] [address] RHEUMATOLOGY 09/27/20 documented as of this encounter
--- OUTSIDE RECORDS SUMMARY | 2024-08-29 09:58 | XMS_ITS | Encounter Summary ---
Author Organization [facility] Address [address] [place] [address]. [place], [place] [id number] [place] [address] Care Team Providers Care Kosher Dietary Service Manager Name Role Phone Gladis Song MD Unavailable Thi Lugo MD Primary Care Provider [phone] Encounter Details Date Type Department Care Team (Latest Contact Info) Description 02/05/2022 Travel Social History Tobacco Use Types Packs/Day [...] on file Legal Sex Female 10:22 PM SALES REPRESENTATIVE PUBLIC UTILITIES Gender Identity Female 09/12/2021 9:51 AM SALES REPRESENTATIVE PUBLIC UTILITIES Sexual Orientation Straight 09/12/2021 9: 51 AM SALES REPRESENTATIVE PUBLIC UTILITIES COVID-19 Exposure Response Date Recorded In the last 10 days, have yo u been in contact with someone who was confirmed or suspected to have Coronavirus/COVID-19? No / Unsure 02/05/2022 8:38 AM CDT documented as of this encounter Plan of Treatment Upcoming Encounters Date Type Department Care Team (Late st Contact Info) Description 10/02/2024 11:40 AM SALES REPRESENTATIVE PUBLIC UTILITIES Office Visit [facility] Multispecialty Care - [facility] [address] [facility] [place] [address] Johnnie Lr MD [address] [facility] [address] [place] [address] 01/04/2025 9:50 AM CDT Office Visit [facility] Family Medicine - [place] [address] [facility] [address] [place] [address] Emily Jordan MD [address] [place] [address] documented as of this encounter Visit Diagnoses Not on filedocumented in this encounter Additional Health Concerns Assessment Noted Time PHQ-9 Depression Total Score: 13 022 9:37 AM SALES REPRESENTATIVE PUBLIC UTILITIES documented as of this encounter Care Teams Kosher Dietary Service Manager Relationship Specialty [place] [address] [facility] [place] [address] PCP - General FAMILY PRACTICE 09/29/21 06/08/24 [place] [address] [facility] [place] [address] RHEUMATOLOGY 09/27/20 documented as of this encounter
--- OUTSIDE RECORDS SUMMARY | 2024-08-29 09:58 | XMS_ITS | Encounter Summary ---
Author Organization [facility] Address [address] [place] [address]. [place], [place] [id number] [place] [address] Care Team Providers Care Manager Harbor Name Role Phone Gladis Song MD Unavailable Thi Lugo MD Primary Care Provider [phone] Encounter Details Date Type Department Care Team (Latest Contact Info) Description 04/18/2022 Travel Social History Tobacco Use Types Packs/Day [...] on file Legal Sex Female 10:22 PM FISHING MANAGER Gender Identity Female 09/12/2021 9:51 AM FISHING MANAGER Sexual Orientation Straight 09/12/2021 9: 51 AM FISHING MANAGER COVID-19 Exposure Response Date Recorded In the last 10 days, have yo u been in contact with someone who was confirmed or suspected to have Coronavirus/COVID-19? No / Unsure 04/18/2022 6:54 AM CDT documented as of this encounter Plan of Treatment Upcoming Encounters Date Type Department Care Team (Late st Contact Info) Description 10/02/2024 11:40 AM FISHING MANAGER Office Visit [facility] Multispecialty Care - [facility] [address] [facility] [place] [address] Johnnie Lr MD [address] [facility] [place] [address] 01/04/2025 9:50 AM CDT Office Visit [facility] Family Medicine - [place] [address] [facility] [address] [place] [address] Emily Jordan MD [address] [place] [address] documented as of this encounter Visit Diagnoses Not on filedocumented in this encounter Additional Health Concerns Assessment Noted Time PHQ-9 Depression Total Score: 13 022 9:37 AM FISHING MANAGER documented as of this encounter Care Teams Manager Harbor Relationship Specialty [place] [address] [facility] [place] [address] PCP - General FAMILY PRACTICE 09/29/21 06/08/24 [place] [address] [facility] [place] [address] RHEUMATOLOGY 09/27/20 documented as of this encounter
--- OUTSIDE RECORDS SUMMARY | 2024-08-29 09:58 | XMS_ITS | Encounter Summary ---
Author Organization [facility] Address [address] [place] [address]. [place], [place] [address] [place] [address] Care Team Providers Care Enterprise Solutions Architect Name Role Phone Gladis Song MD Unavailable Thi Lugo MD Primary Care Provider [phone] Reason for Visit * Reason Comments Follow Up ER Encounter Details Date Type Department Care Team (Late st Contact Info) Description 01/11/2022 8:00 AM CDT Office Visit [facility] Family [facility] Internal Medicine [address] [address] Yolie Mac, [place] [address] [place] [address] Follow Up (ER) Social History Tobacco Use Types Packs/Day Years [...] file Legal Sex Female 10:22 PM WATER RESOURCES BUSINESS SEGMENT LEADER Gender Identity Female 09/12/2021 9:51 AM WATER RESOURCES BUSINESS SEGMENT LEADER Sexual Orientation Straight 09/12/2021 9: 51 AM WATER RESOURCES BUSINESS SEGMENT LEADER COVID-19 Exposure Response Date Recorded In the last 10 days, have yo u been in contact with someone who was confirmed or suspected to have Coronavirus/COVID-19? No / Unsure 01/11/2022 6:53 AM CDT documented as of this encounter Last Filed Vital Signs Vital Sign Reading Time Taken Comments Blood Pressure 124/72 01/11/2022 6:57 AM CDT Pulse 89 01/11/2022 6:57 AM CDT Temperature 36.3 ??C (97.4 ??F) 01/11/2022 6:57 AM CD T Respiratory Rate 18 01/11/2022 6:57 AM CDT Oxygen Saturation 94% 01/11/2022 6:57 AM CDT Inhaled Oxygen Concentration - - Weight 66.2 kg (146 lb) 01/11/2022 6:57 AM CDT Height 149.9 cm (4' 11 ) 01/11/2022 6:57 AM CDT Body Mass Index 29.49 01/11/2022 6:57 AM CDT documented in this encounter Progress Notes * PITO Perez - 01/11/2022 8:00 AM CDT Images from the original note were not included. _ Reason for Visit: Follow Up (ER) History of Present Illness: RADHA Orantes is a 71-year-old female here for follow-up from the emergency room she is having severe sore throat. She states she never really got any answers from theemergency room. She is having cough congestion shortness of breath from the cough otherwise she is not short of breath. She is also noticing some wheezing. She did have a rapid COVID test but not a flu test or PCR. Nor did she have strep test. ROS: Review of Systems Feeling well.Denies dysphagia, heartburn or indigestion. No dyspnea or chest pain on exertion. No nausea, abdominal pain, change in bowel habits, black or bloody stools. No urinary tract symptoms. Nomuscle or joint aches or pains. No foot or leg edema. No numbness, tingling,or weakness. No anxietyor depressive symptoms, Sleeping well. No significant weight gain or loss. No fatigue. Medications: Outpatient Medications Marked as Taking for the 01/11/22 encounter (Office Visit) with PITO Perez Medication Sig Dispense Refill ??? albuterol sulfate HFA (VENTOLIN HFA) 108 (90 Base) MCG/ACT inhaler Inhale 2 puffs into the lungs every 4 (four) hours as needed for Wheezing. 8 g 3 ??? amoxicillin-clavulanate (AUGMENTIN) 875-125 MG tablet Take 1 tablet (875 mg total) by mouth 2 (two) times daily for 10 days. 20 tablet 0 ??? apixaban (ELIQUIS) 5 MG tablet TAKE 1 TABLET BY MOUTH TWICE A DAY ??? atorvastatin 80 MG tablet TAKE 1 TABLET BY MOUTH EVERY DAY ??? B-D 3CC LUER-KAILASH SYR 22GX1 22G X 1 3 ML Misc USE ONCE A MONTH DIRECTED WITH METHOTREXATE ??? bisoprolol 5 MG tablet TAKE 1 TABLET BY MOUTH EVERY DAY ??? calcium carbonate 600 MG tablet Take by mouth daily. ??? calcium carbonate-vitamin D (OSCAL 500/200 D-3) 500-200 MG-UNIT Tab Take by mouth daily. ??? Cholecalciferol (VITAMIN D3) 50 MCG (2000 UT) Cap take 1 by Oral route every day ??? etodolac 400 MG tablet ??? fluticasone 110 MCG/ACT inhaler Inhale 2 puffs into the lungs 2 (two) times daily. ??? furosemide 20 MG tablet TAKE 1 TABLET BY MOUTH EVERY DAY ??? hydroxychloroquine 200 MG tablet Take 200 mg by mouth 2 (two) times daily. ??? methotrexate 2.5 MG tablet ??? methylPREDNISolone, RED, 4 MG tablet 6 TABLETS ON DAY ONE, 5 TABLETS DAY TWO, 4 TABLETS DAY THREE, 3 TABLETS DAY FOUR, 2 TABLETS DAY FIVE, AND 1 TABLET DAY SIX 1 each 0 ??? montelukast 10 MG tablet TAKE 1 TABLET BY MOUTH EVERY DAY EVERY NIGHT ??? PANTOPRAZOLE EC 40 MG tablet TAKE 1 TABLET BY MOUTH TWICE A DAY 180 tablet 1 ??? PARoxetine 20 MG tablet Take 1 tablet (20 mg total) by mouth daily. 90 tablet 1 ??? potassium chloride CR 20 MEQ tablet TAKE 2 TABLETS EVERY MORNING AND 2 TABLETS EVERY EVENING ??? sucralfate 1 G tablet Take 1 tablet (1 g total) by mouth 4 (four) times daily before meals and nightly. 40 tablet 0 ??? vitamin C 1000 MG tablet Take [...] Status ??? Mother ??? Father Physical Exam Constitutional: Patient is oriented to person, place, and time. Patient appears well-developed and well-nourished. HENT: Right Ear: External ear normal. Left Ear: External ear normal. Head: Normocephalic. Nose: Nose normal. Mouth/Throat: Oropharynx is clear and moist. Throat is bright red eyes: Pupils are equal, round, and reactive to light. Neck: No JVD present. No thyromegaly present. Cardiovascular: Normal rate, regular rhythm, normal heart sounds and intact distal pulses. No murmur heard. Pulmonary/Chest: No respiratory distress. Patient has scattered expiratory wheezes. Patient has no rales. Patient exhibits no tenderness. She does not have retractions Abdominal: Patient exhibits no distension and no mass. There is no tenderness. There is no rebound and no guarding. Musculoskeletal: Normal range of motion. Patient exhibits no edema, tenderness or deformity. Lymphadenopathy: Patient has no cervical adenopathy. Neurological: Patient is alert and oriented to person, place, and time. Skin: No rash noted. No erythema. Psychiatric: Patient has a normal mood and affect. The behavior is normal. Thought content normal. No flowsheet data found. Vitals: 01/11/22 0657 Patient Position: Sitting BP Location: Left arm Cuff size: Adult Regular BP: 124/72 Pulse: 89 Body mass index is 29.49 kg/m??. Assessment and Plan Encounter Diagnose(s) ICD-10-CM ICD-9-CM SNOMED CT(R) 1. Sore throat J02.9 462 SORE THROAT SYMPTOM RAPID STREP A amoxicillin-clavulanate (AUGMENTIN) 875-125 MG tablet 2. Suspected COVID-19 virus infection Z20.822 V01.79 SUSPECTED COVID-19 CORONAVIRUS (COVID-19) INFLUENZA A & B ANTIGEN IA PANEL CORONAVIRUS (COVID 19) PCR ([facility]) 3. Pharyngitis due to Streptococcus species J02.0 034.0 STREPTOCOCCAL SORE THROAT amoxicillin-clavulanate (AUGMENTIN) 875-125 MG tablet 4. Wheezing R06.2 786.07 WHEEZING methylPREDNISolone, RED, 4 MG tablet Patient is agreeable starting on antibiotics and steroids for her wheezing. She knows that she is contagious for the next 24 hours with strep. She will get rest push liquids and follow-up if and symptoms are persistent. Orders Placed This Encounter ??? amoxicillin-clavulanate (AUGMENTIN) 875-125 MG tablet ??? methylPREDNISolone, RED, 4 MG tablet ? ? CORONAVIRUS (COVID-19) INFLUENZA A & B ANTIGEN IA PANEL ??? RAPID STREP A ??? CORONAVIRUS (COVID 19) PCR ([facility]) I spent over 30 minutes obtaining history and performing exam. Time was also spent either ordering medications, tests, or ordering procedures. Time was also spent documenting the medical record, reviewing results, and communicating test results to the patient. Patient should follow annual wellness exams recommended for age and sex of patient. Items to consider but not limited included yearly annual fasting labs, colonscopy or cologuard when indicated. PSA and prostate for males. Mammogram and female exam for females, Portions of this note were dictated using Milabra speech recognition software. Occasional wrong wordor sound-alike substitutions may have occurred due to the inherent limitations of voice recognition software. Please read the chart carefully and recognize, using context, where the substitutions may have occurred. Yolie Mac PA-C evaluated and Dr Kentrell Frost reviewed and agrees with plan. Cosigned by Kentrell Frost MD at 01/11/2022 8:24 PM CDT documented in this encounter Plan of Treatment Upcoming Encounters Date Type Department Care Team (Late st Contact Info) Description 10/02/2024 11:40 AM WATER RESOURCES BUSINESS SEGMENT LEADER Office Visit [facility] Multispecialty Care - [facility] [address] [facility] [place] [address] Johnnie Lr MD [address] [facility] [address] [facility] [place] [address] 01/04/2025 9:50 AM CDT Office Visit [facility] Family Medicine - [place] [address] [place] [address] Emily Jordan MD [address] [place] [address] documented as of this encounter Procedures Procedure Name Priority Date/Time Associated Diagnosis Comments CORONAVIRUS (COVID-19) INFLUENZA A & B ANTIGEN IA PANEL Routine 01/11/2022 Suspected COVID-19 virus infection RAPID STREP A Routine 01/11/2022 Sore throat documented in this encounter Results * RAPID STREP A (01/11/2022) RAPID STREP TEST POSITIVE NEGATIVE [id number] TIFFANIE BARRAZA Internal Control: VALID VALID -[id number] TIFFANIE BARRAZA STRUCTURE OF ANTERIOR PORTION OF NECK / Unknown 01/11/2022 us Yolie SHELDON MICROBIOLOGY - GENERAL ORDER RADHA Final Result [id number] ARIADNE FINK, [place] [address] [place] [address], * CORONAVIRUS (COVID-19) INFLUENZA A & B ANTIGEN IA PANEL (01/11/2022) CORONAVIRUS ANTIGEN IA NEGATIVE NEGATIVE -[id number], [place] INFLUENZA A NEGATIVE NEGATIVE [id number], [place] INFLUENZA B NEGATIVE NEGATIVE [id number], [place] Internal Control: VALID VALID -[id number], [place] NASAL STRUCTURE / Unknown 01/11/2022 Yolie SHELDON MICROBIOLOGY - GENERAL ORDER RADHA Final Result Performing Organization Address [facility] Co de Phone Number -[phone] ARI[address] FINK, [place] [address] [address] [place] [phone], documented in this encounter Visit Diagnoses Diagnosis Sore throat- Primary Acute pharyngitis Suspected COVID-19 virus infection Pharyngitis due to Streptococcus species Wheezing documented in this encounter Additional Health Concerns Infection Onset Date Last Indicated Resolved Time COVID-19 Rule Out 01/11/2022 01/11/2022 01/11/2022 12:56 PM CDT COVID-19 Rule Out 01/11/2022 01/11/2022 01/12/2022 6:38 PM CDT Assessment Noted Time PHQ-9 Depression Total Score: 13 022 9:37 AM WATER RESOURCES BUSINESS SEGMENT LEADER documented as of this encounter Care Teams Enterprise Solutions Architect Relationship Specialty [place] [address] [place] [address] PCP - General FAMILY PRACTICE 09/29/21 06/08/24 [place] [address] [facility] [facility] [address] [place] [address] RHEUMATOLOGY 09/27/20 documented as of this encounter
--- OUTSIDE RECORDS SUMMARY | 2024-08-29 09:58 | XMS_ITS | Encounter Summary ---
Author Organization [facility] Address [address] [place] [address]. [place] [address] [place] [address] Care Team Providers Care Mineral Surveyor Name Role Phone Gladis Song MD Unavailable Thi Lugo MD Primary Care Provider Reason for Visit * Auth/Cert Specialty Diagnoses / Procedures Referred By Valerie florian Referred To Contact Diagnoses H25.12 Procedures REMV CATARACT EXTRACAP,INSERT LENS CATARACT REMOVAL WITH IOL IMPLANT Referral ID Status Reason Start Date Expiration Date Visits Re quested Visits Authorized [id number] 1 1 Encounter Details Date Type Department Care Team (Latest Contact Info) Description 04/23/2022 7:59 AM CDT - 04/23/2022 9:50 AM CDT Hospital Encounter [facility] [address] [place] [address] Valeri Doe MD [address] [place] [address] Discharge Disposition: Home or Self Care (Routine [...] on file Legal Sex Female 10:22 PM SEGMENTAL PAVING SUPERVISOR Gender Identity Female 09/12/2021 9:51 AM SEGMENTAL PAVING SUPERVISOR Sexual Orientation Straight 09/12/2021 9: 51 AM SEGMENTAL PAVING SUPERVISOR COVID-19 Exposure Response Date Recorded In the last 10 days, have yo u been in contact with someone who was confirmed or suspected to have Coronavirus/COVID-19? No / Unsure 04/23/2022 7:57 AM CDT documented as of this encounter Last Filed Vital Signs Vital Sign Reading Time Taken Comments Blood Pressure 140/60 04/23/2022 9:30 AM CDT Pulse 64 04/23/2022 9:30 AM CDT Temperature 36.2 ??C (97.2 ??F) 04/23/2022 9:30 AM CD T Respiratory Rate - - Oxygen Saturation 96% 04/23/2022 9:35 AM CDT Inhaled Oxygen Concentration - - Weight 66.7 kg (147 lb) 04/17/2022 3:14 PM CDT Height 149.9 cm (4' 11 ) 04/17/2022 3:14 PM CDT Body Mass Index 29.69 04/17/2022 3:14 PM CDT documented in this encounter Discharge Instructions * Discharge Instructions* Mendy Ventura, ROZINA - 04/23/2022 9:21 AM CDT [facility] POST-OP [...] Ask you doctor. You must have a otr flatbed driver for the day of surgery and your 1st post op exam. 11. ALWAYS WERE SUNGLASSES WHEN YOU GO OUTSIDE. These are found in your surgery kit. Dr. Doe OFFICE [phone] AFTER HOURS EMERGENCY [phone] * Attachments The following attachments cannot be sent through Care Everywhere. * Cataract Removal Discharge Instructions (Jamaican) * Moderate Sedation in Adults Discharge Instructions (Jamaican) documented in this encounter Medications at Time [...] TABLET BY MOUTH EVERY DAY 03/22/2020 3 folic acid 1 MG tablet Take 1 mg by mouth daily. 05/14/2018 2 furosemide 20 MG tablet TAKE 1 TABLET BY MOUTH EVERY DAY 06/16/2019 3 methotrexate 2.5 MG tablet 08/17/2021 4 Methscopolamine [place] 5 MG Tab Take 1 tablet by mouth daily. 03/20/2022 2 montelukast 10 MG tablet TAKE 1 [...] 10/25/2021 2 documented as of this encounter H&P Notes * Valeri Doe MD - 04/23/2022 8:34 AM CDT HISTORY AND PHYSICAL INTERVAL NOTE: I have reviewed Chio Orantes History & Physical which was performed within the past 30days. After examining Chio Orantes, no change has occurred in the patient's condition since the H&P was completed. Informed Consent Discussion: Risks, benefits, alternatives as well as the consequences of not performing the surgery/procedure were discussed with the patient and/or family/personal technical sales representative. Questions were answered and the patient/family/personal technical sales representative verbalized understanding and desires to proceed. VALERI DOE MD documented in this encounter OR Notes * Op Note - Valeri Doe MD - 04/23/2022 9:50 AM CDT Date: 04/23/2022 Patient Name: Chio Orantes : 1950 Surgeon: VALERI DOE MD. Preoperative Diagnosis: Cataract left Postoperative Diagnosis: Cataract left Name of Operation: Cataract Extraction (by Phacoemulsification) [...] st Contact Info) Description 10/02/2024 11:40 AM SEGMENTAL PAVING SUPERVISOR Office Visit [facility] Multispecialty Care - [facility] [address] [place] [address] Johnnie Lr MD [address] [facility] [address] [place] [address] 01/04/2025 9:50 AM CDT Office Visit [facility] - [place] [address] [place] [address] Emily Jordan MD [address] [place] [address] documented as of this encounter Procedures Procedure Name Priority Date/Time Associated Diagnosis Comments REMV CATARACT EXTRACAP,INSERT LENS 04/23/2022 9:07 AM CDT H25.12 documented in this encounter Visit Diagnoses Not on filedocumented in this encounter Administered Medications Inactive Administered Medications - up to 3 most recent administrations Medication Order MAR Action Action Date Dose Rate Site besifloxacin (BESIVANCE) 0.6 % ophthalmic suspension 1 drop 1 drop, Left Eye, Every 5 min, 3 doses, First dose on Sat04/23/22 at 0830, Last dose on Sat04/23/22 at 0840, Instill to operative eye, Pre-Op Given 04/23/2022 8:25 AM CDT 1 drop Given 04/23/2022 8:20 AM CDT 1 drop Given 04/23/2022 8:15 AM CDT 1 drop BUpivacaine (PF) (MARCAINE) 0.5 % injection 0.1 mL 0.1 mL, Intrapleural, Every 5 min, 3 doses, First dose on Sat04/23/22 at 0830, Last dose on Sat04/23/22 at 0840, Instill to operative eye, Pre-Op Given 04/23/2022 8:25 AM CDT 0.1 mLs Given 04/23/2022 8:20 AM CDT 0.1 mLs Given 04/23/2022 8:15 AM CDT 0.1 mLs flurbiprofen (OCUFEN) 0.03 % ophthalmic solution 1 drop 1 drop, Left Eye, Every 5 min, 2 doses, First dose on Sat04/23/22 at 0830, Last dose on Sat04/23/22 at 0835, Instill to operative eye, Pre-Op Given 04/23/2022 8:20 AM CDT 1 drop Given 04/23/2022 8:15 AM CDT 1 drop phenylephrine (MYDFRIN) 2.5 % ophthalmic solution 1 drop 1 drop, Left Eye, Every 5 min, 2 doses, First dose on Sat04/23/22 at 0830, Last dose on Sat04/23/22 at 0835, Instill to operative eye, Pre-Op Given 04/23/2022 8:20 AM CDT 1 drop Given 04/23/2022 8:15 AM CDT 1 drop tropicamide (MYDRIACYL) 1 % ophthalmic solution 1 drop 1 drop, Left Eye, Every 5 min, 2 doses, First dose on Sat04/23/22 at 0830, Last dose on Sat04/23/22 at 0835, Instill to operative eye, Pre-Op Given 04/23/2022 8:20 AM CDT 1 drop Given 04/23/2022 8:15 AM CDT 1 drop documented in this encounter Active and Recently Administered Medications Times are shown in CDT. Scheduled Medication Order 04/21/2022 04/22/2022 04/23/2022 besifloxacin (BESIVANCE) 0.6 % ophthalmic suspension 1 drop (COMPLETED) 1 drop, Left Eye, Every 5 min, 3 doses, First dose on Sat04/23/22 at 0830, Last dose on Sat04/23/22 at 0840, Instill to operative eye, Pre-Op 0815 (Given - Provid er: Lesley Willis RN)0820 (Given - Provider: Lesley Willis RN)0825 (Given - Provider: Lesley Willis RN) BUpivacaine (PF) (MARCAINE) 0.5 % injection 0.1 mL (COMPLETED) 0.1 mL, Intrapleural, Every 5 min, 3 doses, First dose on Sat04/23/22 at 0830, Last dose on Sat04/23/22 at 0840, Instill to operative eye, Pre-Op 0815 (Given - Provid er: Lesley Willis RN)0820 (Given - Provider: Lesley Willis, ROZINA)0825 (Given - Provider: Lesley Willis, ROZINA) flurbiprofen (OCUFEN) 0.03 % ophthalmic solution 1 drop (COMPLETED) 1 drop, Left Eye, Every 5 min, 2 doses, First dose on Sat04/23/22 at 0830, Last dose on Sat04/23/22 at 0835, Instill to operative eye, Pre-Op 0815 (Given - Provid er: Lesley Willis RN)0820 (Given - Provider: Lesley Willis RN) phenylephrine (MYDFRIN) 2.5 % ophthalmic solution 1 drop (COMPLETED) 1 drop, Left Eye, Every 5 min, 2 doses, First dose on Sat04/23/22 at 0830, Last dose on Sat04/23/22 at 0835, Instill to operative eye, Pre-Op 08 (Given - Provid er: Lesley Willis RN)0820 (Given - Provider: Lesley Willis RN) tropicamide (MYDRIACYL) 1 % ophthalmic solution 1 drop (COMPLETED) 1 drop, Left Eye, Every 5 min, 2 doses, First dose on Sat04/23/22 at 0830, Last dose on Sat04/23/22 at 0835, Instill to operative eye, Pre-Op 08 (Given - Provid er: Lesley Willis RN)08 (Given - Provider: Lesley Willis RN) PRN Medication Order 04/21/2022 04/22/2022 04/23/2022 apraclonidine (IOPIDINE) 0.5 % ophthalmic solution (CANCELED) As needed, Starting on Sat04/23/22 at 0918, Until Sat04/23/22 at 0927, Intra-Op 917 (Given - Provid er: Valeri Doe MD) EPINEPHrine 0.3 mg in balanced salts (BSS) irrigation solution (CANCELED) As needed, Starting on Sat04/23/22 at 0918, Until Sat04/23/22 at 0927, Intra-Op 917 (Given - Provid er: Valeri Doe MD) lidocaine (PF) (XYLOCAINE) 1 % injection (CANCELED) As needed, Starting on Sat04/23/22 at 0918, Until Sat04/23/22 at 0927, Intra-Op 917 (Given - Provid er: Valeri Doe MD) moxifloxacin (VIGAMOX) 0.5 % ophthalmic solution (CANCELED) As needed, Starting on Sat04/23/22 at 0919, Until Sat04/23/22 at 0927, Intra-Op 918 (Given - Provid er: Valeri Doe MD) vmuomclu-ksojpvahfq-nxegguumc (NEOSPORIN) ophthalmic ointment (CANCELED) As needed, Starting on Sat04/23/22 at 0920, Until Sat04/23/22 at 09, Intra-Op 0920 (Given - Provid er: Valeri Doe MD) povidone-iodine (BETADINE) 5 % ophthalmic solution (CANCELED) As needed, Starting on Sat04/23/22 at 0920, Until Sat04/23/22 at 09, Intra-Op 0920 (Given - Provid er: Valeri Doe MD) documented in this encounter Additional Health Concerns Assessment Noted Time PHQ-9 Depression Total Score: 13 022 9:37 AM SEGMENTAL PAVING SUPERVISOR documented as of this encounter Care Teams Mineral Surveyor Relationship Specialty [place] [address] [facility] [place] [address] PCP - General FAMILY PRACTICE 09/29/21 06/08/24 [place] [address] [facility]. [facility] [address] [place] [address] RHEUMATOLOGY 09/27/20 documented as of this encounter
--- OUTSIDE RECORDS SUMMARY | 2024-08-29 09:58 | XMS_ITS | Encounter Summary ---
Author Organization [facility] Address [facility] [facility] [place] [address] [place] [address] Care Team Providers Care Cane Packer Name Role Phone Gladis Song MD Unavailable Thi Lugo MD Primary Care Provider [phone] Reason for Visit * Reason Onset Date Comments ER F/U 01/10/2022 Encounter Details Date Type Department Care Team (Late st Contact Info) Description 01/10/2022 Patient Outreach [facility] Medical Group - [facility] [address] [place] [address] Monique Burks, TOOLING INSPECTOR [address] [place] [address] ER F/U Social History Tobacco [...] on file Legal Sex Female 10:22 PM REMOTE SENSING SURVEYOR Gender Identity Female 09/12/2021 9:51 AM REMOTE SENSING SURVEYOR Sexual Orientation Straight 09/12/2021 9: 51 AM REMOTE SENSING SURVEYOR COVID-19 Exposure Response Date Recorded In the last 10 days, have eliana u been in contact with someone who was confirmed or suspected to have Coronavirus/COVID-19? No / Unsure 01/09/2022 9:33 PM CDT documented as of this encounter Progress Notes * JUJU Rothman - 01/10/2022 12:11 PM CDT Left VM for pt in regards to ER Follow up. Will attempt to contact pt again at a later time. documented in this encounter Plan of Treatment Upcoming Encounters Date Type Department Care Team (Late st Contact Info) Description 10/02/2024 11:40 AM REMOTE SENSING SURVEYOR Office Visit [facility] Medical [facility] Mult[facility]pec[facility]ty Care - [facility] [address] [facility] [place] [id number] Johnnie Lr MD [address] [facility] [address] [place] [address] 01/04/2025 9:50 AM CDT Office Visit [facility] Medical Group Family Medicine - [place] [address] [place] [address] Emily Jordan MD [address] [place] [address] documented as of this encounter Visit Diagnoses Not on filedocumented in this encounter Additional Health Concerns Infection Onset Date Last Indicated Resolved Time COVID-19 Rule Out 01/10/2022 01/10/2022 01/10/2022 1:34 AM CDT Assessment Noted Time PHQ-9 Depression Total Score: 13 022 9:37 AM REMOTE SENSING SURVEYOR documented as of this encounter Care Teams Cane Packer Relationship Specialty [place] [address] [address] [place] [address] PCP - General FAMILY PRACTICE 09/29/21 06/08/24 [place] [address] [address] [facility] [address] [place] [address] RHEUMATOLOGY 09/27/20 documented as of this encounter
--- OUTSIDE RECORDS SUMMARY | 2024-08-29 09:58 | XMS_ITS | Encounter Summary ---
Author Organization [facility] Address [address] [place] [address]. [place], [place] [address] [place] [address] Care Team Providers Care Carpet Or Rug Layer Helper Name Role Phone Gladis Song MD Unavailable Thi Lugo MD Primary Care Provider [phone] Reason for Visit * Reason Comments Follow Up PFT done, CT schedul ed 05-23-2022 * Consultation/Treatment (Routine) - Closed Specialty Diagnoses / Procedures Referred By Valerie t Referred To Contact [facility]EP [facility]AT[facility] Diagnoses Diffuse interstitial pulmonary fibrosis (CMS/HCC HHS/HCC) Pulmonary nodules [place] [address] [facility] [place] [address] Phone: tel: fax: Johnnie Lr MD [address] [address] Phone: tel:[phone] fax:[phone] Referral ID Status Reason Start Date Expiration Date V isits Requested Visits Authorized [id number] Closed Specialty Services 10/02/2021 10/30/2022 100 100 Encounter Details Date Type Department Care Team (Latest Contact Info) Description 05/15/2022 11:40 AM CDT Office Visit [facility] Medical Group Multispecialty Care - [facility] [address] [facility] [place] [phone] Johnnie Lr MD [address] [facility] [address] [place] [address] Follow Up (PFT done, CT scheduled 05-23-2022 ) Social History Tobacco Use Types Packs/Day [...] on file Legal Sex Female 10:22 PM LARGE ENGINE ASSEMBLER Gender Identity Female 09/12/2021 9:51 AM LARGE ENGINE ASSEMBLER Sexual Orientation Straight 09/12/2021 9: 51 AM LARGE ENGINE ASSEMBLER COVID-19 Exposure Response Date Recorded In the last 10 days, have yo u been in contact with someone who was confirmed or suspected to have Coronavirus/COVID-19? No / Unsure 05/15/2022 11:42 AM CDT documented as of this encounter Last Filed Vital Signs Vital Sign Reading Time Taken Comments Blood Pressure 147/82 05/15/2022 11:59 AM CDT Pulse 78 05/15/2022 11:45 AM CDT Temperature 36.9 ??C (98.4 ??F) 05/15/2022 11:45 AM C DT Respiratory Rate 12 05/15/2022 11:45 AM CDT Oxygen Saturation 97% 05/15/2022 11:45 AM CDT Inhaled Oxygen Concentration - - Weight 66.7 kg (147 lb) 05/15/2022 11:45 AM CDT Height 149.9 cm (4' 11 ) 05/15/2022 11:45 AM CDT Body Mass Index 29.69 05/15/2022 11:45 AM CDT documented in this encounter Patient Instructions * Patient Instructions* Johnnie Lr MD - 05/15/2022 11:40 AM CDT - Start Arnuity 1 puff a day. Rinse gargle and spit after use - Albuterol can still be used as needed - Get your CT scan as scheduled on 05/23/2022 - Get your blood drawn on the same day, blood draws do not need to be scheduled. Pause your Singulair for 5 days before the blood draw and then restart after - Follow-up with me in about 3 months documented in this encounter Progress Notes * Johnnie Lr MD - 05/15/2022 11:40 AM CDT [facility] PULMONARY MEDICINE History Chief Complaint Patient presents with ??? Follow Up PFT done, CT scheduled 05-23-2022 Referring provider: Thi Lugo MD 05/15/2022 OV: Overall she is doing about [...] Outpatient Medications Medication Sig Dispense Refill ??? ALBUTEROL SULFATE HFA 108 (90 Base) MCG/ACT inhaler INHALE 2 PUFFS INTO THE LUNGS EVERY 4 (FOUR) HOURS NEEDED FOR WHEEZING. 18 g 1 ??? aspirin 81 MG chewable tablet Chew 1 tablet (81 mg total) by mouth daily. 30 tablet 0 ??? bisoprolol 5 MG tablet TAKE 1 TABLET BY MOUTH EVERY DAY ??? calcium carbonate 600 MG tablet Take by mouth daily. ??? Cholecalciferol (VITAMIN D3) 50 MCG (2000 UT) Cap take 1 by Oral route every day ??? Fluticasone Furoate (ARNUITY ELLIPTA) 100 MCG/ACT AEROSOL POWDER, BREATH ACTIVATED Inhale 1 puff into the lungs daily. Rinse and spit after 90 each 3 ??? folic acid 1 MG tablet Take 1 mg by mouth daily. ??? furosemide 20 MG tablet TAKE 1 TABLET BY MOUTH EVERY DAY ??? gabapentin (NEURONTIN) 100 MG capsule Take 2 capsules (200 mg total) by mouth nightly. 60 capsule 2 ??? methotrexate 2.5 MG tablet ??? montelukast [...] mouth 4 (four) times daily beforemeals and nightly. 40 tablet 0 ??? vitamin C 1000 MG tablet Take 1,000 mg by mouth daily. ??? atorvastatin 80 MG tablet TAKE 1 TABLET BY MOUTH EVERY DAY ??? B-D 3CC LUER-KAILASH SYR 22GX1 22G X 1 3 ML Misc USE ONCE A MONTH DIRECTED WITH METHOTREXATE No current facility-administered medications for this visit. [...] Negative for depression, hallucinations and suicidal ideas. Physical Exam Filed Vitals: 05/15/22 1145 BP: (!) 151/85 Pulse: 78 Resp: 12 Temp: 98.4 ??F (36.9 ??C) TempSrc: Temporal SpO2: 97% Weight: 66.7 kg (147 lb) Height: 4' 11 (1.499 m) Body mass index is 29.69 kg/m??. Physical Exam: General: Alert, pleasant, in [...] 1. Multiple pulmonary nodules -low risk 2. Mild persistent asthma 3. Dyspnea on exertion -consider underlying asthma, deconditioning, obesity. Postacute COVID syndrome. 4. Chronic cough Plan - Repeat CT scan of the chest ; scheduled for 05/23/2022 - Labs: Region 8 allergy panel and CBC for eosinophil count - Pause Singulair for 5 days prior to allergy testing, can resume after. Pending pulmonary functiontesting and allergy panel testing will adjust current medication therapy -Start Arnuity 100 mcg 1 puff daily. Rinse gargle and spit after use - Albuterol as needed Return in about 3 months (around 08/14/2022). Johnnie Lr MD documented in this encounter Plan of Treatment Upcoming Encounters Date Type Department Care Team (Late st Contact Info) Description 10/02/2024 11:40 AM LARGE ENGINE ASSEMBLER Office Visit [facility] Multispecialty Care - [facility] [address] [facility] [place] [address] Johnnie Lr MD [address] [facility] [address] [place] [address] 01/04/2025 9:50 AM CDT Office Visit [facility] Family Medicine - [place] [address] [facility] [address] [place] [address] Emily Jordan MD [address] [place] [address] documented as of this encounter Visit Diagnoses Diagnosis Mild persistent asthma without complication (HHS/HCC)- Primary Unspecified asthma Chronic cough Cough Pulmonary nodules/lesions, multiple Other nonspecific abnormal finding of lung field Dyspnea on exertion Other dyspnea and respiratory abnormality documented in this encounter Additional Health Concerns Assessment Noted Time PHQ-9 Depression Total Score: 2 05/04/20 22 9:39 AM CDT documented as of this encounter Care Teams Carpet Or Rug Layer Helper Relationship Specialty [place] [address] [address] [place] [address] PCP - General FAMILY PRACTICE 09/29/21 06/08/24 [place] [address] [place] [address] RHEUMATOLOGY 09/27/20 documented as of this encounter
--- OUTSIDE RECORDS SUMMARY | 2024-08-29 09:58 | XMS_ITS | Encounter Summary ---
Author Organization [facility] Address [address] [place] [address]. [place] [address] [place] [address] Care Team Providers Care Architecture Consultant Name Role Phone Gladis Song MD Unavailable Thi Lugo MD Primary Care Provider [phone] Reason for Visit * Reason Comments Dysphagia * Speech Therapy (Routine) - Closed Specialty Diagnoses / Procedures Referred By Valerie florian Referred To Contact [facility] Diagnostic Imaging Diagnoses Chronic cough chronic cough Procedures [facility] SPEECH SWALLOW SJB Parent Location [address] [place] [address] Phone: tel: fax: [facility] [address] [place] [address] Phone: tel: Referral ID Status Reason Start Date Expiration Date Visits Re quested Visits Authorized [id number] Closed 02/22/2022 02/23/2023 100 100 Encounter Details Date Type Department Care Team (Latest Contact Info) Description 02/23/2022 10:15 AM CDT - 02/23/2022 11:59 PM T Hospital Encounter [facility] [address] [place] [address] Mariola Olmos MD [address] [place] [address] Dyana Faria, ADAN [address] [place] [address] Dysphagia Discharge Disposition: Home or Self Care (Routine [...] on file Legal Sex Female 10:22 PM LAST SAWYER Gender Identity Female 09/12/2021 9:51 AM LAST SAWYER Sexual Orientation Straight 09/12/2021 9: 51 AM LAST SAWYER COVID-19 Exposure Response Date Recorded In the [...] HFA (VENTOLIN HFA) 108 (90 Base) MCG/ACT inhalerIndication s:Shortness of breath Inhale 2 puffs into the lungs every 4 (four) hours as needed for Wheezing. 8 g 3 11/29/2020 03/07/2022 apixaban 5 MG tablet TAKE 1 TABLET BY MOUTH TWICE A DAY 03/07/2020 04/18/2022 B-D 3CC LUER-KAILASH SYR 22GX1 22G X 1 3 ML Misc 11/25/2019 02/24/2024 bisoprolol 5 MG tablet TAKE 1 TABLET BY MOUTH EVERY DAY 03/22/2020 10/19/2022 etodolac 400 MG tablet 04/18/2022 folic acid 1 MG tablet Take 1 mg by mouth daily. 05/14/2018 06/04/2022 furosemide 20 MG tablet TAKE 1 TABLET BY MOUTH EVERY DAY 06/16/2019 10/19/2022 hydroxychloroquin e 200 MG tablet Take 200 mg by mouth 2 (two) times daily. 05/14/2018 04/18/2022 methotrexate 2.5 MG tablet 08/17/2021 06/09/2024 montelukast 10 MG tablet TAKE 1 TABLET BY MOUTH EVERY DAY EVERY NIGHT 02/16/2020 09/06/2022 PANTOPRAZOLE EC 40 MG tabletIndications :Gastroesophageal reflux disease without esophagitis TAKE 1 TABLET BY MOUTH TWICE A DAY 180 tablet 1 09/09/2020 11/12/2022 PAROXETINE 20 MG tabletIndications :Anxiety state TAKE 1 TABLET BY MOUTH EVERY DAY 90 tablet 01/23/2022 05/25/2022 potassium chloride CR 20 MEQ tablet TAKE 2 TABLETS EVERY MORNING AND 2 TABLETS EVERY EVENING 01/04/2020 06/09/2024 sucralfate 1 G tabletIndications :GERD without esophagitis Take 1 tablet (1 g total) by mouth 4 (four) times daily before meals and nightly. 40 tablet 10/25/2021 05/04/2022 documented as of this encounter Progress Notes * Dyana Faria, ADAN - 02/23/2022 10:30 AM CDT HISTORY OF PRESENT ILLNESS Patient complains of coughing after eating, when laying down. Patient complains of coughing on ice cream, bread, and other random consistencies. She also complains of having occasional coughing spells. PAST MEDICAL HISTORY Past Medical History: Diagnosis Date ??? Anxiety ??? Arthritis ??? Asthma ??? Hypertension ??? Lupus (CMS/HCC) ??? Sleep apnea ??? Stroke (CMS/HCC) SUBJECTIVE Patient was alert, no difficulties completing study. OBJECTIVE Projections Lateral & frontal ANATOMIC VIEW UNDER FLUOROSCOPY PO BARIUM CONTRAST TRIALS thin liquid,pudding, & solid coated in Varibar pudding SWALLOW PHYSIOLOGY ORAL PHASE Lip closure WNL Bolus transport WNL Tongue control WNL Oral residue WNL Bolus prep/mastication WNL Initiation of swallow WNL PHARYNGEAL PHASE Soft palate elevation WNL Pharyngeal stripping wave WNL Laryngeal elevation WNL Pharyngeal contraction WNL Anterior hyoid excursion WNL PES opening WNL Epiglottic movement WNL Tongue base retraction WNL Laryngeal vestibule closure WNL Pharyngeal residue WNL ESOPHAGEAL PHASE Esophageal clearance WNL 8-POINT PENETRATION-ASPIRATION SCALE (PAS) Max score Modal score IDDSI 0 1 1 IDDSI 2 IDDSI 3 IDDSI 4 1 1 IDDSI 7 1 1 COMPENSATORY SWALLOW STRATEGIES OUTCOME MEASURES MBSImP Oral impairment score 0 Pharyngeal impairment score 0 Esophageal impairment score 0 DIGEST Overall grade Safety grade Efficiency grade MO IDDSI-FDS ASSESSMENT Normal oropharyngeal swallow. Suspect esophageal involvement. Consider GI referral. PLAN DIET RECOMMENDATION Regular and thin FIREWALL SECURITY ENGINEER REFERRALS/ANCILLARY TESTS GI THERAPY No ST required at this time. GOALS FOLLOW-UP EXAM Cosigned by Mariola Olmos MD at 02/23/2022 11:15 AM CDT documented in this encounter Plan of Treatment Upcoming Encounters Date Type Department Care Team (Late st Contact Info) Description 10/02/2024 11:40 AM LAST SAWYER Office Visit [facility] Multispecialty Care - [facility] [address] [facility] [place] [phone] Mariola Olmos MD [address] [facility] [address] [place] [address] 01/04/2025 9:50 AM CDT Office Visit [facility] Family Medicine - [place] [address] [place] [phone] Emily Jordan MD [address] [place] [phone] documented as of this encounter Procedures Procedure Name Priority Date/Time Associated Diagnosis Comments XR SPEECH SWALLOW [facility] ONLY Routine 02/23/2022 11:02 AM CDT Chronic cough documented in this encounter Results * [facility] - XR SPEECH SWALLOW (02/23/2022 [...] Interpreted By: Ace Bhatia, 02/23/2022 11:24 AM us Mariola Olmos MD FLUOROSCOPY Final Result documented in this encounter Visit Diagnoses Diagnosis Chronic cough Cough documented in this encounter Additional Health Concerns Assessment Noted Time PHQ-9 Depression Total Score: 13 022 9:37 AM LAST SAWYER documented as of this encounter Care Teams Architecture Consultant Relationship Specialty [place] [address] [facility] [place] [address] PCP - General FAMILY PRACTICE 09/29/21 06/08/24 [place] [address] [facility] [place] [address] RHEUMATOLOGY 09/27/20 documented as of this encounter
--- OUTSIDE RECORDS SUMMARY | 2024-08-29 09:58 | XMS_ITS | Encounter Summary ---
Author Organization [facility] Address [address] [place] [address]. [place], [place] [address] [place] [address] Care Team Providers Care Hoisting Pile Driving Engineer Name Role Phone Gladis Song MD Unavailable Thi Lugo MD Primary Care Provider [phone] Reason for Visit * Reason Comments Physical Surgical clearance f or cataract surgery on Saturday. Encounter Details Date Type Department Care Team (Late st Contact Info) Description 04/18/2022 7:00 AM CDT Office Visit [facility] Medical Group Family & Internal Medicine [address] [address] Thi Lugo MD [address] [place] [address]. [address] [place] [address] Physical (Surgical clearance for cataract surgery on Saturday. ) Social History Tobacco Use Types Packs/Day [...] on file Legal Sex Female 10:22 PM MULTI TOWNSHIP ASSESSOR Gender Identity Female 09/12/2021 9:51 AM MULTI TOWNSHIP ASSESSOR Sexual Orientation Straight 09/12/2021 9: 51 AM MULTI TOWNSHIP ASSESSOR COVID-19 Exposure Response Date Recorded In the last 10 days, have yo u been in contact with someone who was confirmed or suspected to have Coronavirus/COVID-19? No / Unsure 04/18/2022 6:54 AM CDT documented as of this encounter Last Filed Vital Signs Vital Sign Reading Time Taken Comments Blood Pressure 126/73 04/18/2022 7:01 AM CDT Pulse 71 04/18/2022 7:01 AM CDT Temperature 36.8 ??C (98.2 ??F) 04/18/2022 7:01 AM CD T Respiratory Rate 18 04/18/2022 7:01 AM CDT Oxygen Saturation 97% 04/18/2022 7:01 AM CDT Inhaled Oxygen Concentration - - Weight 66.9 kg (147 lb 6.4 oz) 04/18/2022 7:01 A M CDT Height 149.9 cm (4' 11 ) 04/18/2022 7:01 AM CDT Body Mass Index 29.77 04/18/2022 7:01 AM CDT documented in this encounter Progress Notes * Thi Lugo MD - 04/18/2022 7:00 AM CDT Reason for Visit: Physical (Surgical clearance for cataract surgery on Saturday ) History of Present Illness: HPI Miss Chio Orantes??is a??pleasant??70-year-old female with complex past and current medical history but not limited to asthma, CVA was on Eliquis, heart failure preserved ejection fraction, on methotrexate for SLE,??restless legs and hypertension was seen today?in office for preop visit for a Cataract surgery. Pre-Op Visit (Brief): The patient is being seen for a preoperative visit. The procedure is a LEFT Cataract Surgery scheduled for 04/23/2022. sHE will get right eye done in OCT. The indication for surgery is reduced Vision. She can still see colors okay. She does wear glasses Surgical Risk Assessment: Prior Anesthesia: She had prior anesthesia and no prior adverse reaction to general anesthesia. Pertinent Past Medical History: see above Exercise Capacity: able to walk four blocks without symptoms. Lifestyle Factors: rarely drinks alcohol socially, denies tobacco use and denies illegal drug use. Symptoms: no symptoms. Pertinent Family History: no pertinent family history. Living Situation: home is secure and supportive and no post-op concerns with her living situation. Her Eliquis was stopped by neurologist. Was told she does not have afibb and was started on aspirinonly. Specialists 1. cardiolo 2. Rheum Dr. Song 3. Neurology for memory loss and Hx of stroke 4. Pulmonolgy 5 eye doctor. 6. PRN dermatology No other concerns for today ROS: Review of Systems Constitutional: Negative for activity change, appetite change, chills and fever. HENT: Negative for congestion, ear discharge, facial swelling, hearing loss, nosebleeds, postnasal drip, rhinorrhea and sinus pressure. Eyes: Positive for visual disturbance. Respiratory: Negative for cough, shortness of breath and wheezing. Cardiovascular: Negative for chest pain, palpitations and leg swelling. Gastrointestinal: Negative for abdominal pain, constipation and diarrhea. Endocrine: Negative for polyuria. Genitourinary: Negative for dysuria, hematuria and pelvic pain. Musculoskeletal: Positive for arthralgias and general stiffness. Neurological: Negative for dizziness, syncope and headaches. [...] EVERY DAY, Disp: , Rfl: ??? bisoprolol 5 MG [...] MOUTH EVERY DAY, Disp: , Rfl: ??? methotrexate 2.5 MG tablet, , Disp: , Rfl: ??? Methscopolamine [place] 5 MG Tab, Take 1 tablet by mouth daily., Disp: , Rfl: ??? montelukast 10 MG [...] EVERY EVENING, Disp: , Rfl: ??? sucralfate 1 G tablet, Take 1 tablet (1 g total) by mouth 4 (four) times daily before meals andnightly., Disp: 40 tablet, Rfl: 0 ??? vitamin C 1000 MG tablet, Take 1,000 mg by mouth daily., Disp: , Rfl: ??? B-D 3CC LUER-KAILASH SYR 22GX1 22G X 1 3 ML Misc, USE ONCE A MONTH DIRECTED WITH METHOTREXATE,Disp: , Rfl: ??? etodolac 400 MG tablet, , Disp: , Rfl: Allergies Allergen Reactions ??? [...] normal. Left Ear: Tympanic membrane normal. Mouth/Throat: Mucous membranes are moist. Oropharynx is clear. Eyes: Conjunctiva/sclera: Conjunctivae normal. Cardiovascular: Rate and Rhythm: Normal rate and regular rhythm. Pulmonary: Effort: Pulmonary effort is normal. Breath sounds: Normal breath sounds. No wheezing. Abdominal: General: Abdomen is flat. There is no distension. Tenderness: There is no abdominal tenderness. There is no guarding or rebound. Hernia: No hernia is present. Musculoskeletal: Right lower leg: No edema. Left lower leg: No edema. Skin: General: Skin is warm. Neurological: General: No focal deficit present. Mental Status: She is alert and oriented to person, place, and time. Psychiatric: Mood and Affect: Mood normal. Behavior: Behavior normal. Judgment: Judgment normal. Filed Vitals: 04/18/22 0701 BP: 126/73 Pulse: 71 Resp: 18 Temp: 98.2 ??F (36.8 ??C) TempSrc: Temporal SpO2: 97% Weight: 66.9 kg (147 lb 6.4 oz) Height: 4' 11 (1.499 m) Diagnoses/Impression: 1. Pre-op exam 2. On anticoagulant therapy aspirin 81 MG chewable tablet 3. Essential hypertension 4. Age-related cataract of both eyes, unspecified age-related cataract type Recommendations and Plan: Bilateral cataract surgery- Low risk procedure RCRI- Points 1: Class II Low 0.9% risk of perioperative cardiac complications. 6.0??%- 30-day risk of , [place], or cardiac arrest Continue aspirin. Will fax preop forms. HTN well controlled. Continue bisoprolol and lasix. Start water PT. Follow up in 6 months. She voiced understanding and agrees with the plan/. All questions answered Orders Placed This Encounter ??? Methscopolamine [place] 5 MG Tab ??? aspirin 81 MG chewable tablet Reviewed and updated this visit by provider: Liss Lugo MD Referring Provider: No ref. provider found PCP: Thi Lugo MD documented in this encounter Plan of Treatment Upcoming Encounters Date Type Department Care Team (Late st Contact Info) Description 10/02/2024 11:40 AM MULTI TOWNSHIP ASSESSOR Office Visit [facility] Multispecialty Care - [facility] [address] [facility] [place] [phone] Johnnie Lr MD [address] [facility] [address] [place] [address] 01/04/2025 9:50 AM CDT Office Visit [facility] Family Medicine - [place] [address] [place] [phone] Emily Jordan MD [address] [place] [address] documented as of this encounter Visit Diagnoses Diagnosis Pre-op exam- Primary Preoperative examination, unspecified On anticoagulant therapy Encounter for long-term (current) use of anticoagulants Essential hypertension Unspecified essential hypertension Age-related cataract of both eyes, unspecified age-related cataract type documented in this encounter Additional Health Concerns Assessment Noted Time PHQ-9 Depression Total Score: 13 022 9:37 AM MULTI TOWNSHIP ASSESSOR documented as of this encounter Care Teams Hoisting Pile Driving Engineer Relationship Specialty [place] [address] [facility] [address] [place] [address] PCP - General FAMILY PRACTICE 09/29/21 06/08/24 [place] [address] [place] [address] RHEUMATOLOGY 09/27/20 documented as of this encounter
--- OUTSIDE RECORDS SUMMARY | 2024-08-29 09:58 | XMS_ITS | Encounter Summary ---
Author Organization [facility] Address [address] [place] [address]. [place] [address] [place] [address] Care Team Providers Care Printing Manager Name Role Phone Gladis Song MD Unavailable Thi Lugo MD Primary Care Provider [phone] Reason for Visit * Auth/Cert Specialty Diagnoses / Procedures Referred By Valerie t Referred To Contact Diagnoses H25.12 Procedures REMV CATARACT EXTRACAP,INSERT LENS CATARACT REMOVAL WITH IOL IMPLANT Referral ID Status Reason Start Date Expiration Date Visits Re quested Visits Authorized [id number] 1 1 Encounter Details Date Type Department Care Team (Late st Contact Info) Description 04/23/2022 9:21 AM CDT - 04/23/2022 9:58 AM CDT Surgery [facility] [address] [place] [address] Valeri Doe MD [address] [facility] [address] [place] [place] [address] CATARACT REMOVAL WITH IOL IMPLANT Surgery Details Date/Time Status Location OR Service Patient Class Case Class Case Type Trauma Case? 04/23/2022 9:21 AM Posted [facility] OR OR 2 Ophthalmology Short Stay/Outpat ient Surgery No Panel 1 Procedure LRB Anes Op Region Wound Class Comments CATARACT REMOVAL WITH IOL IMPLANT Left Monitor Anesthesia Care Eye Clean Surgeon Surgeon [...] file Legal Sex Female 10:22 PM MANAGER TRANSFUSION Gender Identity Female 09/12/2021 9:51 AM MANAGER TRANSFUSION Sexual Orientation Straight 09/12/2021 9: 51 AM MANAGER TRANSFUSION COVID-19 Exposure Response Date Recorded In the [...] * Discharge Instructions* Mendy Ventura RN - 04/23/2022 9:21 AM CDT Valentine DOE [...] Ask you doctor. You must have a mail truck driver for the day of surgery and your 1st post op exam. 11. ALWAYS WERE SUNGLASSES WHEN YOU GO OUTSIDE. These are found in your surgery kit. Dr. Doe OFFICE [phone] AFTER HOURS EMERGENCY [phone] * Attachments The following attachments cannot be sent through Care Everywhere. * Cataract Removal Discharge Instructions (Canadian) * Moderate Sedation in Adults Discharge Instructions (Canadian) documented in this encounter Medications at Time [...] methotrexate 2.5 MG tablet 08/17/2021 4 Methscopolamine [place] 5 MG Tab Take 1 tablet by [...] PHYSICAL INTERVAL NOTE: I have reviewed Chio Oranets History & Physical which was performed within the past 30days. After examining Chio Orantes, no change has occurred in the patient's condition since the H&P was completed. Informed Consent Discussion: Risks, benefits, alternatives as well as the consequences of not performing the surgery/procedure were discussed with the patient and/or family/personal account development representative. Questions were answered and the patient/family/personal account development representative verbalized understanding and desires to proceed. [...] Contact Info) Description 10/02/2024 11:40 AM MANAGER TRANSFUSION Office Visit [facility] Medical Group Multispecialty Care - [address], [address] [place] [address] Johnnie Lr MD [address] [address] [place] [address] 01/04/2025 9:50 AM CDT Office Visit [facility] Family Medicine - [place] [address] [place] [address] Emily Jordan MD [address] [place] [address] documented as of this encounter Procedures Procedure [...] % ophthalmic solution As needed, Starting on Sat04/23/22 at 0918, Until Sat04/23/22 at 0927, Intra-Op Given 04/23/2022 9:18 AM CDT 1 drop besifloxacin (BESIVANCE) 0.6 [...] Given 04/23/2022 8:15 AM CDT 0.1 mLs EPINEPHrine 0.3 mg in balanced salts (BSS) irrigation solution As needed, Starting on Sat04/23/22 at 0918, Until Sat04/23/22 at 0927, Intra-Op Given 04/23/2022 9:18 AM CDT 500 mLs Left Eye flurbiprofen (OCUFEN) 0.03 % ophthalmic solution 1 drop 1 drop, Left Eye, Every 5 min, 2 doses, First dose on Sat04/23/22 at 0830, Last dose on Sat04/23/22 at 0835, Instill to operative eye, Pre-Op Given 04/23/2022 8:20 AM CDT 1 drop Given 04/23/2022 8:15 AM CDT 1 drop lidocaine (PF) (XYLOCAINE) 1 % injection As needed, Starting on Sat04/23/22 at 0918, Until Sat04/23/22 at 0927, Intra-Op Given 04/23/2022 9:18 AM CDT 1 mL Left Eye moxifloxacin (VIGAMOX) 0.5 % ophthalmic solution As needed, Starting on Sat04/23/22 at 0919, Until Sat04/23/22 at 0927, Intra-Op Given 04/23/2022 9:19 AM CDT 1 drop Left Eye pgnztcxl-qdmrcocvdt-lttmpmgsj (NEOSPORIN) ophthalmic ointment As needed, Starting on Sat04/23/22 at 0920, Until Sat04/23/22 at 0927, Intra-Op Given 04/23/2022 9:20 AM CDT 1 mL phenylephrine (MYDFRIN) 2.5 % ophthalmic solution 1 drop 1 drop, Left Eye, Every 5 min, 2 doses, First dose on Sat04/23/22 at 0830, Last dose on Sat04/23/22 at 0835, Instill to operative eye, Pre-Op Given 04/23/2022 8:20 AM CDT 1 barney p Given 04/23/2022 8:15 AM CDT 1 drop povidone-iodine (BETADINE) 5 % ophthalmic solution As needed, Starting on Sat04/23/22 at 0920, Until Sat04/23/22 at 0927, Intra-Op Given 04/23/2022 9:20 AM CDT 1 drop tropicamide (MYDRIACYL) 1 [...] RN)0825 (Given - Provider: Lesley Willis RN) flurbiprofen (OCUFEN) 0.03 % ophthalmic solution 1 [...] 0815 (Given - Provid er: Lesley Willis RN)08 (Given - Provider: Lesley Willis RN) tropicamide (MYDRIACYL) 1 % ophthalmic solution 1 drop (COMPLETED) 1 drop, Left Eye, Every 5 min, 2 doses, First dose on Sat04/23/22 at 0830, Last dose on Sat04/23/22 at 0835, Instill to operative eye, Pre-Op 0815 (Given - Provid er: Lesley Willis RN)08 [...] on Sat04/23/22 at 0919, Until Sat04/23/22 at 09, Intra-Op 918 (Given - Provid er: Valeri Doe MD) knpbzhek-edxseiswen-rcptcokov (NEOSPORIN) ophthalmic ointment (CANCELED) As needed, Starting on Sat04/23/22 at 0920, Until Sat04/23/22 at 0927, Intra-Op 0920 (Given - Provid er: Valeri Doe MD) povidone-iodine (BETADINE) 5 % ophthalmic solution (CANCELED) As needed, Starting on Sat04/23/22 at 0920, Until Sat04/23/22 at 0927, Intra-Op 0920 (Given - Provid er: Valeri Doe MD) documented in this encounter Additional Health Concerns Assessment Noted Time PHQ-9 Depression Total Score: 13 022 9:37 AM MANAGER TRANSFUSION documented as of this encounter Care Teams Printing Manager Relationship Specialty [place] [address] [facility] [place] [address] PCP - General FAMILY PRACTICE 09/29/21 06/08/24 [place] [address] [facility] [address] RHEUMATOLOGY 09/27/20 documented as of this encounter
--- OUTSIDE RECORDS SUMMARY | 2024-08-29 09:58 | XMS_ITS | Encounter Summary ---
Author Organization [facility] Address [address] [place] [address]. [place] [address] [place] [address] Care Team Providers Care Supervisor Wire Rope Fabrication Name Role Phone Gladis Song MD Unavailable Thi Lugo MD Primary Care Provider [phone] Reason for Visit * Reason Onset Date Comments Pre-op Surgery/Cosmetic 04/20/2022 Encounter Details Date Type Department Care Team (Late st Contact Info) Description 04/20/2022 Telephone [facility] Medical Group Family & Internal Medicine [address] [address] Thi Lugo MD [address] [place] [address]. [address] [place] [address] Pre-op Surgery/Cosmetic Social History Tobacco Use Types Packs/Day Years [...] file Legal Sex Female 10:22 PM SOFTWARE ADMINISTRATOR Gender Identity Female 09/12/2021 9:51 AM SOFTWARE ADMINISTRATOR Sexual Orientation Straight 09/12/2021 9: 51 AM SOFTWARE ADMINISTRATOR COVID-19 Exposure Response Date Recorded In the last 10 days, have yo u been in contact with someone who was confirmed or suspected to have Coronavirus/COVID-19? No / Unsure 05/15/2022 11:42 AM CDT documented as of this encounter Progress Notes * Laura Johnson RN - 05/22/2022 2:51 PM CDT Medication list sent and progress note 04/18/2022 to fax number provided * Serenity Rehman - 05/22/2022 2:17 PM CDT Liliam from [facility] called, and she received the surgical clearance. For some reason she did notreceive the office notes and she also needs a copy of her up to date med list. Fx# [phone] * Flor Mayer MA - 04/23/2022 3:42 PM CDT Faxed along with pre-op OV note. * Julianna Velasquez - 04/20/2022 2:11 PM CDT Elidia from dr maher office is needing pt preop surgery clearense fax to [phone] documented in this encounter Plan of Treatment Upcoming Encounters Date Type Department Care Team (Late st Contact Info) Description 10/02/2024 11:40 AM SOFTWARE ADMINISTRATOR Office Visit [facility] Multispecialty Care - [facility] [address] [facility] [address] [place] [address] Johnnie Lr MD 3 [facility] [address] [place] [address] 01/04/2025 9:50 AM CDT Office Visit [facility] Family Medicine - [place] [address] [place] [address] Emily Jordan MD [address] [place] [address] documented as of this encounter Visit Diagnoses Not on filedocumented in this encounter Additional Health Concerns Assessment Noted Time PHQ-9 Depression Total Score: 13 022 9:37 AM SOFTWARE ADMINISTRATOR documented as of this encounter Care Teams Supervisor Wire Rope Fabrication Relationship Specialty [place] [address] [facility] [place] [address] PCP - General FAMILY PRACTICE 09/29/21 06/08/24 [place] [address] [facility] [address] [place] [address] RHEUMATOLOGY 09/27/20 documented as of this encounter
--- OUTSIDE RECORDS SUMMARY | 2024-08-29 09:58 | XMS_ITS | Encounter Summary ---
Author Organization [facility] Address [address] [place] [address]. [place], [place] [address] [place] [address] Care Team Providers Care Case Reviewer Name Role Phone Gladis Song MD Unavailable Thi Lugo MD Primary Care Provider [phone] Reason for Referral * Procedure (Routine) - Closed Specialty Diagnoses / Procedures Referred By Contac t Referred To Contact Diagnoses Moderate persistent asthma with acute exacerbation (HHS/HCC) Procedures Complete PFT (pre/post [place], Lung Vol, Diff Capacity) (96838, 01926, 16409, 81261) Johnnie Lr MD [address] [address] Phone: tel: fax: Referral ID Status Reason Start Date Expiration Date Visits Re quested Visits Authorized [id number] Closed 04/18/2022 04/18/2023 1 1 Encounter Details Date Type Department Care Team (Latest Contact Info) Description 04/13/2022 1:16 PM CDT - 04/13/2022 11:59 PM CDT Hospital Encounter [facility] [place] [address] Johnnie Lr MD 3 [facility] [address] [place] [address] Discharge Disposition: Home or Self Care (Routine [...] on file Legal Sex Female 10:22 PM RECORDS MANAGEMENT CLERK Gender Identity Female 09/12/2021 9:51 AM RECORDS MANAGEMENT CLERK Sexual Orientation Straight 09/12/2021 9: 51 AM RECORDS MANAGEMENT CLERK COVID-19 Exposure Response Date Recorded In [...] NEEDED FOR WHEEZING. 18 g 1 03/07/2022 09/06/2022 apixaban 5 MG tablet TAKE 1 TABLET [...] 04/18/2022 methotrexate 2.5 MG tablet 08/17/2021 06/09/2024 Methscopolamine [place] 5 MG Tab Take 1 tablet by mouth daily. 03/20/2022 05/04/2022 montelukast 10 MG tablet TAKE 1 TABLET [...] Progress Notes * Johnnie Lr MD - 04/13/2022 1:30 PM CDT Mrs. Orantes, I reviewed her pulmonary function testing which was most consistent with asthma. When you follow-upwith me at the beginning of next month we can discuss whether or not you should start a daily inhaler. Johnnie Lr MD documented in this encounter Procedure Notes * Johnnie Lr MD - 04/13/2022 1:30 PM CDTAssociated Order(s): PULMONARY FUNCTION TEST [facility] PULMONARY FUNCTION TESTS Chio Orantes 71-year-old Height 59 inches Weight 147 Lbs 04/18/2022 INTERPRETATION Please see technologist's comments. SPIROMETRY: Prebronchodilator FEV1 1.21 L, 68% predicted. FVC 1.70 L, 74% predicted. FEV1/FVC ratio 71%. Postbronchodilator FEV1 1.37 L, 77% predicted. FVC 1.99 L, 87% predicted. FEV1/FVC ratio 69%. There is A significant response to bronchodilator administration. Inspection of the patient's flow-volume loops shows Scooping of the expiratory limb LUNG VOLUMES: TLC 3.96 L, 96% predicted. RV 2.03 L, 119% predicted. DLCO: Diffusing capacity unadjusted for Hb and COHb is 91% IMPRESSION: 1. Normal postbronchodilator spirometry 2. Significant response to bronchodilator and forced vital capacity, no significant response with FEV1 Johnnie Lr MD documented in this encounter Plan of Treatment Upcoming Encounters Date Type Department Care Team (Late st Contact Info) Description 10/02/2024 11:40 AM RECORDS MANAGEMENT CLERK Office Visit [facility] Mult[facility]pecialty Care - [facility] [address] [facility] [place] [address] Johnnie Lr MD [address] [facility] [address] [place] [address] 01/04/2025 9:50 AM CDT Office Visit [facility] Medical [facility] Family Medicine - [place] [address] [place], [place] [address] Emily Jordan MD [address] [place], [place] [address] documented as of this encounter Procedures Procedure Name Priority Date/Time Associated Diagnosis Comments PULMONARY FUNCTION TEST Routine 04/13/2022 1:30 PM CDT Moderate persistent asthma with acute exacerbation (HHS/HCC) documented in this encounter Results * Complete PFT (pre/post [place], Lung Vol, Diff Capacity) (99183, 59560, 74169, 45475) (04/13/2022 1:30 PM CDT) Narrative [facility] - 04/13/2022 1:30 PM CDT Johnnie Lr MD ? 04/18/2022 ??2:03 PM ?? [facility] PULMONARY FUNCTION TESTS Chio rOantes 71-year-old Height 59 inches Weight 147 Lbs 04/18/2022 INTERPRETATION Please see technologist's comments. SPIROMETRY: ?? Prebronchodilator FEV1 1.21 L, 68% predicted. ??FVC 1.70 L, 74% predicted. ??FEV1/FVC ratio 71%. Postbronchodilator FEV1 1.37 L, 77% predicted. ??FVC 1.99 L, 87% predicted. ??FEV1/FVC ratio 69%. There is A significant response to bronchodilator administration. Inspection of the patient's flow-volume loops shows Scooping of the expiratory limb LUNG VOLUMES: TLC 3.96 L, 96% predicted. ??RV 2.03 L, 119% predicted. DLCO: Diffusing capacity unadjusted for Hb and COHb is 91% IMPRESSION: 1. ??Normal postbronchodilator spirometry 2. ??Significant response to bronchodilator and forced vital capacity, no significant response with FEV1 Johnnie Lr MD Procedure Note Johnnie Lr MD - 04/13/2022 1:30 PM CDT [facility] PULMONARY FUNCTION TESTS Chio Orantes 71-year-old Height 59 inches Weight 147 Lbs 04/18/2022 INTERPRETATION Please see technologist's comments. SPIROMETRY: Prebronchodilator FEV1 1.21 L, 68% predicted. FVC 1.70 L, 74% predicted.FEV1/FVC ratio 71%. Postbronchodilator FEV1 1.37 L, 77% predicted. FVC 1.99 L, 87% predicted.FEV1/FVC ratio 69%. There is A significant response to bronchodilator administration. Inspection of the patient's flow-volume loops shows Scooping of theexpiratory limb LUNG VOLUMES: TLC 3.96 L, 96% predicted. RV 2.03 L, 119% predicted. DLCO: Diffusing capacity unadjusted for Hb and COHb is 91% IMPRESSION: 1. Normal postbronchodilator spirometry 2. Significant response to bronchodilator and forced vital capacity, nosignificant response with FEV1 Johnnie Lr MD Johnnie Lr MD PFT ORDERABLES Final Result [facility] 3 [place] [address], [place] [phone] documented in this encounter Visit Diagnoses Diagnosis Moderate persistent asthma with acute exacerbation (HHS/HCC)- Primary documented in this encounter Administered Medications Inactive Administered Medications - up to 3 most recent administrations Medication Order MAR Action Action Date Dose Rate Site albuterol sulfate HFA 108 (90 Base) MCG/ACT inhaler 2 puff 2 puff, Inhalation, Once, 1 dose, On Sat04/13/22 at 1415 Given 04/13/2022 2:04 PM CDT 2 puffs documented in this encounter Additional Health Concerns Assessment Noted Time PHQ-9 Depression Total Score: 13 022 9:37 AM RECORDS MANAGEMENT CLERK documented as of this encounter Care Teams Case Reviewer Relationship Specialty [place] [address] [facility] [place] [address] PCP - General FAMILY PRACTICE 09/29/21 06/08/24 [place] [address] [place] [address] RHEUMATOLOGY 09/27/20 documented as of this encounter
--- OUTSIDE RECORDS SUMMARY | 2024-08-29 09:58 | XMS_ITS | Encounter Summary ---
Author Organization [facility] Address [address] [place] [address]. [place] [address] [place] [address] Care Team Providers Care Timing Adjuster Name Role Phone Gladis Song MD Unavailable Thi Lugo MD Primary Care Provider [phone] Reason for Visit * Reason Comments Generic Orders (SCAN) Encounter Details Date Type Department Care Team (Late st Contact Info) Description 04/13/2022 Scan HEALTH INFO SRVCS Scanned, Documents Generic Orders (SCAN) Social History Tobacco Use Types Packs/Day [...] on file Legal Sex Female 10:22 PM SHOE COBBLER Gender Identity Female 09/12/2021 9:51 AM SHOE COBBLER Sexual Orientation Straight 09/12/2021 9: 51 AM SHOE COBBLER COVID-19 Exposure Response Date Recorded In the last 10 days, have yo u been in contact with someone who was confirmed or suspected to have Coronavirus/COVID-19? No / Unsure 04/18/2022 6:54 AM CDT documented as of this encounter Plan of Treatment Upcoming Encounters Date Type Department Care Team (Late st Contact Info) Description 10/02/2024 11:40 AM SHOE COBBLER Office Visit [facility] Medical [facility] Care - [facility] [address] [facility] [place] [address] Johnnie Lr MD [address] [facility] [address] [place] [address] 01/04/2025 9:50 AM CDT Office Visit [facility] Family Medicine - [place] [address] [place], [place] [id number] Emily Jordan MD [address] [place], [place] [address] documented as of this encounter Procedures Procedure Name Priority Date/Time Associated Diagnosis Comments SPIROMETRY GENERIC (SCAN ORDER) 04/13/2022 documented in this encounter Results * SPIROMETRY GENERIC (04/13/2022) 04/13/2022 Narrative 04/13/2022 Ordered by an unspecified provider. us Documents Scanned SCANNING Final Result documented in this encounter Visit Diagnoses Not on filedocumented in this encounter Additional Health Concerns Assessment Noted Time PHQ-9 Depression Total Score: 13 022 9:37 AM SHOE COBBLER documented as of this encounter Care Teams Timing Adjuster Relationship Specialty [place] [address] [address] [facility] [address] [place] [address] PCP - General FAMILY PRACTICE 09/29/21 06/08/24 [place] [address] [facility] [place] [address] RHEUMATOLOGY 09/27/20 documented as of this encounter
--- OUTSIDE RECORDS SUMMARY | 2024-08-29 09:58 | XMS_ITS | Encounter Summary ---
Author Organization [facility] Address Critical access hospital[facility] [place] [address] [place] [address] Care Team Providers Care Rack Loader Name Role Phone Gladis Song MD Unavailable Thi Lugo MD Primary Care Provider [phone] Encounter Details Date Type Department Care Team (Latest Contact Info) Description 03/30/2022 Scan HEALTH INFO SRVCS Scanned, Documents Social [...] file Legal Sex Female 10:22 PM MANAGER AGRICULTURAL Gender Identity Female 09/12/2021 9:51 AM MANAGER AGRICULTURAL Sexual Orientation Straight 09/12/2021 9: 51 AM MANAGER AGRICULTURAL documented as of this encounter Plan of Treatment Upcoming Encounters Date Type Department Care Team (Late st Contact Info) Description 10/02/2024 11:40 AM MANAGER AGRICULTURAL Office Visit [facility] Multispecialty Care - [facility] 3 [facility], [address] [place] [address] Johnnie Lr MD 3 [facility] [address] [place] [address] 01/04/2025 9:50 AM CDT Office Visit [facility] Medical Group Family Medicine - [place] [address] [place] [address] Emily Jordan MD [address] [place] [address] documented as of this encounter Visit Diagnoses Not on filedocumented in this encounter Additional Health Concerns Assessment Noted Time PHQ-9 Depression Total Score: 13 022 9:37 AM MANAGER AGRICULTURAL documented as of this encounter Care Teams Rack Loader Relationship Specialty [place] [address] [facility] [place] [address] PCP - General FAMILY PRACTICE 09/29/21 06/08/24 [place] [address] [facility] [facility] [address] [place] [address] RHEUMATOLOGY 09/27/20 documented as of this encounter
--- OUTSIDE RECORDS SUMMARY | 2024-08-29 09:58 | XMS_ITS | Encounter Summary ---
Author Organization [facility] Address [address] [place] [address]. [place], [place] [address] [place] [address] Care Team Providers Care Machine Set Up Name Role Phone Gladis Song MD Unavailable Thi Lugo MD Primary Care Provider [phone] Encounter Details Date Type Department Care Team (Latest Contact Info) Description 04/23/2022 Travel Social History Tobacco Use Types Packs/Day [...] on file Legal Sex Female 10:22 PM APPLICATIONS PROCESSOR Gender Identity Female 09/12/2021 9:51 AM APPLICATIONS PROCESSOR Sexual Orientation Straight 09/12/2021 9: 51 AM APPLICATIONS PROCESSOR COVID-19 Exposure Response Date Recorded In the last 10 days, have yo u been in contact with someone who was confirmed or suspected to have Coronavirus/COVID-19? No / Unsure 04/23/2022 7:57 AM CDT documented as of this encounter Plan of Treatment Upcoming Encounters Date Type Department Care Team (Late st Contact Info) Description 10/02/2024 11:40 AM APPLICATIONS PROCESSOR Office Visit [facility] Multispecialty Care - [facility] 3 [facility] [place] [address] Johnnie Lr MD 3 [facility] [address] [place] [address] 01/04/2025 9:50 AM CDT Office Visit [facility] Family Medicine - [place] [address] [facility] [address] [place] [address] Emily Jordan MD [address] [place] [address] documented as of this encounter Visit Diagnoses Not on filedocumented in this encounter Additional Health Concerns Assessment Noted Time PHQ-9 Depression Total Score: 13 022 9:37 AM APPLICATIONS PROCESSOR documented as of this encounter Care Teams Machine Set Up Relationship Specialty [place] [address] [facility] [place] [address] PCP - General FAMILY PRACTICE 09/29/21 06/08/24 [place] [address] [facility] [place] [address] RHEUMATOLOGY 09/27/20 documented as of this encounter
--- OUTSIDE RECORDS SUMMARY | 2024-08-29 09:59 | XMS_ITS | Encounter Summary ---
Author Organization [facility] Address [address] [place] [address]. [place] [address] [place] [address] Care Team Providers Care Aquarist Name Role Phone Gladis Song MD Unavailable Thi Lugo MD Primary Care Provider [phone] Reason for Referral * Imaging (Routine) - Closed Specialty Diagnoses / Procedures Referred By Contac t Referred To Contact RADIOLOGY Diagnoses Cough Lab test positive for detection of COVID-[address] CHEST Siena Mckenzie MD Phone: tel: fax: Referral ID Status Reason Start Date Expiration Date Visits Re quested Visits Authorized [id number] Closed 09/26/2021 03/25/2022 1 1 CLERK Reason for Visit * Imaging (Routine) - Closed Specialty Diagnoses / Procedures Referred By Contac t Referred To Contact RADIOLOGY Diagnoses Cough Lab test positive for detection of COVID-[address] CHEST Siena Mckenzie MD Phone: tel: fax: Referral ID Status Reason Start Date Expiration Date Visits Re quested Visits Authorized [id number] Closed 09/26/2021 03/25/2022 1 1 Encounter Details Date Type Department Care Team (Latest Contact Info) Description 09/29/2021 10:51 AM CREW CLERK - 09/29/2021 11:59 PM CREW CLERK [place] [address] [place], [place] [id number] [place] [address] [place], [place] [id number] Discharge Disposition: Home or Self Care (Routine [...] on file Legal Sex Female 10:22 PM CREW CLERK Gender Identity Female 09/12/2021 9:51 AM CREW CLERK Sexual Orientation Straight 09/12/2021 9: 51 AM CREW CLERK COVID-19 Exposure Response Date Recorded In the last month, have you been in contact with someone who was confirmed or suspected to have Coronavirus / COVID-19? No / Unsure 09/29/2021 9:29 AM CREW CLERK documented as of this encounter Medications at [...] 1 capsule (125 mcg total) daily. 11/30/2014 abatacept (ORENCIA) 250 MG injectionIndicatio ns:Systemic lupus erythematosus, unspecified SLE type, unspecified organ involvement status ([facility]/HCC [facility]/HCC) 3 each 02/07/2021 2 albuterol sulfate HFA (VENTOLIN HFA) 108 (90 Base) MCG/ACT inhalerIndications :Shortness of breath Inhale 2 puffs into the lungs every 4 (four) hours as needed for Wheezing. 8 g 3 11/29/2020 2 apixaban 5 MG tablet TAKE 1 TABLET BY MOUTH TWICE A DAY 03/07/2020 2 AZELASTINE 0.1 % nasal sprayIndications:A llergic rhinitis, unspecified seasonality, unspecified trigger INSTILL 1 SPRAY INTO EACH NOSTRIL DIRECTED 2 TIMES PER DAY 30 mL 2 01/10/2021 2 B-D 3CC LUER-KAILASH SYR 22GX1 22G X 1 3 ML Misc 11/25/2019 4 B-D INSULIN SYRINGE 1CC/25G 25G X 5/8 1 ML Misc USE DIRECTED FOR 90 DAYS 09/01/2020 2 BD INTEGRA SYRINGE 25G X 1 3 ML Misc USE DIRECTED FOR 90 DAYS 02/19/2020 2 bisoprolol 5 MG tablet TAKE 1 TABLET [...] TABLET BY MOUTH EVERY DAY 06/16/2019 3 HYDROCHLOROTHIAZID E 25 MG tabletIndications: Essential hypertension TAKE 1 TABLET BY MOUTH EVERY DAY 90 tablet 08/17/2021 2 hydroxychloroquine 200 MG tablet Take 200 mg by mouth 2 (two) times daily. 05/14/2018 2 methotrexate 2.5 MG tablet 08/17/2021 4 montelukast 10 MG tablet TAKE 1 TABLET BY MOUTH EVERY DAY EVERY NIGHT 02/16/2020 3 ondansetron (ZOFRAN) 4 MG tabletIndications: Nausea and vomiting in adult Take 1 tablet (4 mg total) by mouth every 8 (eight) hours as needed for Nausea. 20 tablet 09/29/2021 2 PANTOPRAZOLE EC 40 MG tabletIndications: Gastroesophageal reflux disease without esophagitis TAKE 1 TABLET BY MOUTH TWICE A DAY 180 tablet 1 09/09/2020 3 PARoxetine 20 MG tabletIndications: Anxiety state Take 1 tablet (20 mg total) by mouth daily. 90 tablet 1 07/25/2021 2 potassium chloride CR 20 MEQ tablet TAKE 2 TABLETS EVERY MORNING AND 2 TABLETS EVERY EVENING 01/04/2020 4 documented as of this encounter Plan of Treatment Upcoming Encounters Date Type Department Care Team (Late st Contact Info) Description 10/02/2024 11:40 AM CREW CLERK [facility] - [facility] 3 [facility] [address] [place] [address] Johnnie Lr MD 3 [facility] [address] [place] [address] 01/04/2025 9:50 AM CDT Office Visit [facility] Medical [facility] Family Medicine - [place] [address] [place] [address] Emily Jordan MD [address] [place] [address] documented as of this encounter Procedures Procedure Name Priority Date/Time Associated Diagnosis Comments CT CHEST WO CON Routine 09/29/2021 11:17 AM CREW CLERK Cough Lab test positive for detection of COVID-19 virus documented in this encounter Results * CT CHEST WO CON (09/29/2021 11:17 AM CREW CLERK) Anatomical Region Laterality Modality Chest Computed Tomogra phy 09/29/2021 12:3 0 PM CREW CLERK Impressions 09/29/2021 12:48 PM CREW CLERK IMPRESSION: 1. ??No infiltrate or effusion. No pneumothorax. Mild scattered interstitial fibrosis. Scar versus minor atelectasis within the posterior right upper lobe. 2. ??Follow-up in 6 months will be needed due to several pulmonary nodules. Largest in the left lower lobe measuring 7 mm on image 51 of 114. 2 mm nodule in left lower lobe on image 47. 4 mm nodule in left lower lobe on image 62. 3. ??3 mm nodule in left upper lobe on image 36. 4 mm lingular nodule on image 60. 4. ??Atherosclerotic aorta without dilatation. No pericardial effusion. ??Moderate coronary artery calcifications. Please correlate with cardiac risk profile. 5. ??No pathologic lymphadenopathy. Calcified mediastinal lymph nodes. 6. ??Mild mucosal thickening esophagus may be due to reflux. Upper abdomen with normal adrenals. Fatty superior liver. Normal gallbladder. Degenerative change in thoracic spine. Ordered By: SIENA HOPE Interpreted By: Ace Bhatia, 09/29/2021 12:30 PM Narrative 09/29/2021 12:48 PM CREW CLERK IMAGING STUDIES: ??CT CHEST WO CON ? DATE: ??09/29/2021 10:55 AM COMPARISON STUDIES: ??No comparisons. CLINICAL HISTORY: ??Cough, persistent ?? . ??Shortness of breath. Recent history of Covid infection.. Radiation dose reduction technique was utilized. Procedure Note Castillo Bhatia MD - 09/29/2021 IMAGING STUDIES: CT CHEST WO CON DATE: 09/29/2021 10:55 AM COMPARISON STUDIES: No comparisons. CLINICAL HISTORY: Cough, persistent . Shortness of breath. Recenthistory of Covid infection.. Radiation dose reduction technique wasutilized. IMPRESSION: 1. No infiltrate or effusion. No pneumothorax. Mild scatteredinterstitial fibrosis. Scar versus minor atelectasis within the posteriorright upper lobe. 2. Follow-up in 6 months will be needed due to several pulmonary nodules.Largest in the left lower lobe measuring 7 mm on image 51 of 114. 2 mmnodule in left lower lobe on image 47. 4 mm nodule in left lower lobe onimage 62. 3. 3 mm nodule in left upper lobe on image 36. 4 mm lingular nodule onimage 60. 4. Atherosclerotic aorta without dilatation. No pericardial effusion.Moderate coronary artery calcifications. Please correlate with cardiacrisk profile. 5. No pathologic lymphadenopathy. Calcified mediastinal lymph nodes. 6. Mild mucosal thickening esophagus may be due to reflux. Upper abdomenwith normal adrenals. Fatty superior liver. Normal gallbladder.Degenerative change in thoracic spine. Ordered By: SIENA HOPE Interpreted By: Ace Bhatia, 09/29/2021 12:30 PM S[address]a Hope MD CT Final Result documented in this encounter Visit Diagnoses Diagnosis Cough Lab test positive for detection of COVID-19 virus documented in this encounter Additional Health Concerns Infection Onset Date Last Indicated Resolved Time COVID-19 Confirmed 09/08/2021 09/08/2021 12:32 AM CREW CLERK Assessment Noted Time PHQ-9 Depression Total Score: 13 022 9:37 AM CREW CLERK documented as of this encounter Care Teams Aquarist Relationship Specialty [place] [address] [facility] [place] [address] PCP - General FAMILY PRACTICE 09/29/21 06/08/24 [place] [address] [facility] [facility] [address] [place] [address] RHEUMATOLOGY 09/27/20 documented as of this encounter
--- OUTSIDE RECORDS SUMMARY | 2024-08-29 09:59 | XMS_ITS | Encounter Summary ---
Author Organization [facility] Address [address] [place] [address]. [place], [place] [address] [place] [address] Care Team Providers Care Dance Artist Name Role Phone Gladis Song MD Unavailable Thi Lugo MD Primary Care Provider [phone] Encounter Details Date Type Department Care Team (Latest Contact Info) Description 10/24/2021 Travel Social History Tobacco Use Types Packs/Day [...] on file Legal Sex Female 10:22 PM CARRIAGE SETTER Gender Identity Female 09/12/2021 9:51 AM CARRIAGE SETTER Sexual Orientation Straight 09/12/2021 9: 51 AM CARRIAGE SETTER COVID-19 Exposure Response Date Recorded In the last 10 days, have yo u been in contact with someone who was confirmed or suspected to have Coronavirus/COVID-19? No / Unsure 10/24/2021 10:34 AM CARRIAGE SETTER documented as of this encounter Plan of Treatment Upcoming Encounters Date Type Department Care Team (Late st Contact Info) Description 10/02/2024 11:40 AM CARRIAGE SETTER Office Visit [facility] - [facility] 3 [facility] [address] [place] [address] Johnnie Lr MD 3 [facility] [address] [place] [address] 01/04/2025 9:50 AM CDT Office Visit [facility] Family Medicine - [place] [address] [facility] [address] [place] [address] Emily Jordan MD [address] [place] [address] documented as of this encounter Visit Diagnoses Not on filedocumented in this encounter Additional Health Concerns Assessment Noted Time PHQ-9 Depression Total Score: 13 022 9:37 AM CARRIAGE SETTER documented as of this encounter Care Teams Dance Artist Relationship Specialty [place] [address] [facility] [place] [address] PCP - General FAMILY PRACTICE 09/29/21 06/08/24 [place] [address] [facility] [place] [address] RHEUMATOLOGY 09/27/20 documented as of this encounter
--- OUTSIDE RECORDS SUMMARY | 2024-08-29 09:59 | XMS_ITS | Encounter Summary ---
Author Organization [facility] Address [address] [place] [address]. [place], [place] [address] [place] [address] Care Team Providers Care Hand Ironer Name Role Phone Gladis Song MD Unavailable Thi Lugo MD Primary Care Provider [phone] Encounter Details Date Type Department Care Team (Latest Contact Info) Description 09/29/2021 Travel Social History Tobacco Use Types Packs/Day [...] on file Legal Sex Female 10:22 PM WOODWORK TEACHER Gender Identity Female 09/12/2021 9:51 AM WOODWORK TEACHER Sexual Orientation Straight 09/12/2021 9: 51 AM WOODWORK TEACHER COVID-19 Exposure Response Date Recorded In the last month, have you been in contact with someone who was confirmed or suspected to have Coronavirus / COVID-19? No / Unsure 09/29/2021 9:29 AM WOODWORK TEACHER documented as of this encounter Plan of Treatment Upcoming Encounters Date Type Department Care Team (Late st Contact Info) Description 10/02/2024 11:40 AM WOODWORK TEACHER Office Visit [facility] Medical Group Multispecialty Care - [facility] [address] [facility] [address] [place] [address] Johnnie Lr MD 3 [facility] [address] [place] [address] 01/04/2025 9:50 AM CDT Office Visit [facility] Group Family Medicine - [place] [address] [place] [address] Emily Jordan MD [address] [place] [address] documented as of this encounter Visit Diagnoses Not on filedocumented in this encounter Additional Health Concerns Infection Onset Date Last Indicated Resolved Time COVID-19 Confirmed 09/08/2021 09/08/2021 12:32 AM WOODWORK TEACHER Assessment Noted Time PHQ-9 Depression Total Score: 13 022 9:37 AM WOODWORK TEACHER documented as of this encounter Care Teams Hand Ironer Relationship Specialty [place] [address] [facility] [address] [place] [address] PCP - General FAMILY PRACTICE 09/29/21 06/08/24 [place] [address] [facility] [place] [address] RHEUMATOLOGY 09/27/20 documented as of this encounter
--- OUTSIDE RECORDS SUMMARY | 2024-08-29 09:59 | XMS_ITS | Encounter Summary ---
Author Organization [facility] Address [address] [place] [address]. [place], [place] [address] [place] [address] Care Team Providers Care Injection Molder Name Role Phone Gladis Song MD Unavailable Thi Lugo MD Primary Care Provider [phone] Reason for Visit * Reason Onset Date Comments Results 12/14/2021 Mammogram Encounter Details Date Type Department Care Team (Late st Contact Info) Description 12/14/2021 Telephone [facility] Medical Group Family & Internal Medicine [address] [address] Thi Lugo MD [address] [place] [address]. [address] [place] [address] Results (Mammogram) Social History Tobacco Use Types Packs/Day Years [...] on file Legal Sex Female 10:22 PM HUMAN RESOURCES SPECIALIST Gender Identity Female 09/12/2021 9:51 AM HUMAN RESOURCES SPECIALIST Sexual Orientation Straight 09/12/2021 9: 51 AM HUMAN RESOURCES SPECIALIST documented as of this encounter Progress Notes * Cristal Platt RN - 12/18/2021 8:31 AM CDT Letter sent to pt. * Cristal Platt RN - 12/15/2021 8:15 AM CDT LMOM to call office & mychart message sent to pt. * Cristal Platt RN - 12/14/2021 2:54 PM CDT LMOM([phone], 's phone, pt is using now) to call office for result. Mammogram from [facility] done 12/11/21 was normal, will need to repeat in 1 year. documented in this encounter Plan of Treatment Upcoming Encounters Date Type Department Care Team (Late st Contact Info) Description 10/02/2024 11:40 AM HUMAN RESOURCES SPECIALIST Office Visit [facility] Multispecialty Care - [facility] [address] [facility] [address] [place] [address] Johnnie Lr MD [address] [facility] [address] [place] [address] 01/04/2025 9:50 AM CDT Office Visit [facility] Family Medicine - [place] [address] [facility] [address] [place] [address] Emily Jordan MD [address] [place] [address] documented as of this encounter Visit Diagnoses Not on filedocumented in this encounter Additional Health Concerns Assessment Noted Time PHQ-9 Depression Total Score: 13 022 9:37 AM HUMAN RESOURCES SPECIALIST documented as of this encounter Care Teams Injection Molder Relationship Specialty [place] [address] [facility]. [address] [place] [address] PCP - General FAMILY PRACTICE 09/29/21 06/08/24 [place] [address] [facility]. [facility] [address] [place] [address] RHEUMATOLOGY 09/27/20 documented as of this encounter
--- OUTSIDE RECORDS SUMMARY | 2024-08-29 09:59 | XMS_ITS | Encounter Summary ---
Author Organization [facility] Address [address] [place] [address]. [place] [address] [place] [address] Care Team Providers Care Studio Data Analyst Name Role Phone Gladis Song MD Unavailable Siena Johnson MD Primary Care Provider [phone] Encounter Details Date Type Department Care Team (Latest Contact Info) Description 09/20/2021 Travel Social History Tobacco Use Types Packs/Day Years Used Date Smoking Tobacco: Never Smokeless Tobacco: Never Alcohol Use Standard Drinks/Week Comments Yes 0 (1 standard drink = 0.6 oz pur e alcohol) up 2 glasses of wine/month PHQ-2 Answer Date Recorded PHQ-2 Score - If the patient scores above 3, please move on to questions 3-9 3 09/27/2020 Comments No Sex and Gender Information Value Date Recorded Sex Assigned at Not on file Legal Sex Female 10:22 PM RESEARCH SOFTWARE ENGINEER Gender Identity Female 09/12/2021 9:51 AM RESEARCH SOFTWARE ENGINEER Sexual Orientation Straight 09/12/2021 9: 51 AM RESEARCH SOFTWARE ENGINEER COVID-19 Exposure Response Date Recorded In the last month, have you been in contact with someone who was confirmed or suspected to have Coronavirus / COVID-19? No / Unsure 09/20/2021 10:16 AM RESEARCH SOFTWARE ENGINEER documented as of this encounter Plan of Treatment Upcoming Encounters Date Type Department Care Team (Late st Contact Info) Description 10/02/2024 11:40 AM RESEARCH SOFTWARE ENGINEER Office Visit [facility] Mult[facility]pecialty Care - [facility] [address] [facility] [place] [address] Johnnie Lr MD [address] [facility] [address] [place] [address] 01/04/2025 9:50 AM CDT Office Visit [facility] Family Medicine - [place] [address] [place] [address] Emily Jordan MD [address] [place] [address] documented as of this encounter Visit Diagnoses Not on filedocumented in this encounter Additional Health Concerns Infection Onset Date Last Indicated Resolved Time COVID-19 Confirmed 09/08/2021 09/08/2021 12:32 AM RESEARCH SOFTWARE ENGINEER documented as of this encounter Care Teams Studio Data Analyst Relationship Specialty [place] [address] [address] PCP - General INTERNAL MEDICINE 05/15/21 09/28/21 [place] [address] [address] RHEUMATOLOGY 09/27/20 documented as of this encounter
--- OUTSIDE RECORDS SUMMARY | 2024-08-29 09:59 | XMS_ITS | Encounter Summary ---
Author Organization [facility] Address [address] [place] [address]. [place], [place] [address] [place] [address] Care Team Providers Care Childcare Administrator Name Role Phone Gladis Song MD Unavailable Thi Lugo MD Primary Care Provider [phone] Reason for Referral * Consultation/Treatment (Routine) - Closed Specialty Diagnoses / Procedures Referred By Contac t Referred To Contact SLEEP & RESPIRATORY CARE Diagnoses Diffuse interstitial pulmonary fibrosis ([facility]/HCC [facility]/HCC) Pulmonary nodules [place]inal [place] [address] [place] [address] Phone: tel: fax: Johnnie Lr MD 3 [place] [address] Phone: tel:[phone] fax:[phone] Referral ID Status Reason Start Date Expiration Date V isits Requested Visits Authorized [id number] Closed Specialty Services 10/02/2021 10/30/2022 100 100 LER HELPER Encounter Details Date Type Department Care Team (Late st Contact Info) Description 10/02/2021 Orders Only [facility] Medical Group Family & Internal Medicine - [place] [address] [place] [address] [place] [address] [facility] [place] [address] Social History Tobacco Use Types [...] on file Legal Sex Female 10:22 PM PUDDLER HELPER Gender Identity Female 09/12/2021 9:51 AM PUDDLER HELPER Sexual Orientation Straight 09/12/2021 9: 51 AM PUDDLER HELPER COVID-19 Exposure Response Date Recorded In the last month, have you been in contact with someone who was confirmed or suspected to have Coronavirus / COVID-19? No / Unsure 09/29/2021 9:29 AM PUDDLER HELPER documented as of this encounter Plan of Treatment Upcoming Encounters Date Type Department Care Team (Late st Contact Info) Description 10/02/2024 11:40 AM PUDDLER HELPER Office Visit [facility] Multispecialty Care - [facility] [address] [facility], [address] [place] [address] Johnnie Lr MD 3 [facility] [address] [place] [address] 01/04/2025 9:50 AM CDT Office Visit [facility] Family Medicine - [place] [address] [place] [id number] Emily Jordan MD [address] [place], [place] [id number] Scheduled Referrals Name Type Priority Associated Diagnoses Orde r Schedule Ambulatory referral to Pulmonology ([facility]) Referral Routine Diffuse interstitial pulmonary fibrosis (CMS/HCC HHS/HCC) Pulmonary nodules Mediastinal lymphadenopathy Ordered: 10/02/2021 documented as of this encounter Visit Diagnoses Diagnosis Diffuse interstitial pulmonary fibrosis (CMS/HCC HHS/HCC)- Primary Postinflammatory pulmonary fibrosis Pulmonary nodules Other nonspecific abnormal finding of lung field Mediastinal lymphadenopathy Enlargement of lymph nodes documented in this encounter Additional Health Concerns Infection Onset Date Last Indicated Resolved Time COVID-19 Confirmed 09/08/2021 09/08/2021 12:32 AM PUDDLER HELPER Assessment Noted Time PHQ-9 Depression Total Score: 13 022 9:37 AM PUDDLER HELPER documented as of this encounter Care Teams Childcare Administrator Relationship Specialty [place] [address] [facility] [place] [address] PCP - General FAMILY PRACTICE 09/29/21 06/08/24 [place] [address] [facility]. [facility] [address] [place] [address] RHEUMATOLOGY 09/27/20 documented as of this encounter
--- OUTSIDE RECORDS SUMMARY | 2024-08-29 09:59 | XMS_ITS | Encounter Summary ---
Author Organization [facility] Address [address] [place] [address]. [place] [address] [place] [address] Care Team Providers Care Pediatric Anesthesiologist Name Role Phone Gladis Song MD Unavailable Thi Lugo MD Primary Care Provider [phone] Reason for Visit * Reason Comments Weakness since having COVID Medication discuss Doxycycline- vomiting this morning after taking it Encounter Details Date Type Department Care Team (Late st Contact Info) Description 09/29/2021 9:20 AM SCHEME TECHNICIAN Office Visit [facility] Medical Group Family & Internal Medicine [address] [address] Thi Lugo MD [address] [place] [address]. [address] [place] [address] Weakness (since having COVID 09/08/21); Medication (discuss Doxycycline- vomiting this morning after taking it ) Social History Tobacco Use Types Packs/Day [...] on file Legal Sex Female 10:22 PM SCHEME TECHNICIAN Gender Identity Female 09/12/2021 9:51 AM SCHEME TECHNICIAN Sexual Orientation Straight 09/12/2021 9: 51 AM SCHEME TECHNICIAN COVID-19 Exposure Response Date Recorded In the last month, have you been in contact with someone who was confirmed or suspected to have Coronavirus / COVID-19? No / Unsure 09/29/2021 9:29 AM SCHEME TECHNICIAN documented as of this encounter Last Filed Vital Signs Vital Sign Reading Time Taken Comments Blood Pressure 110/62 09/29/2021 9:30 AM SCHEME TECHNICIAN Pulse 79 09/29/2021 9:30 AM SCHEME TECHNICIAN Temperature 36.8 ??C (98.2 ??F) 09/29/2021 9:30 AM CS T Respiratory Rate 18 09/29/2021 9:30 AM SCHEME TECHNICIAN Oxygen Saturation 95% 09/29/2021 9:30 AM SCHEME TECHNICIAN Inhaled Oxygen Concentration - - Weight 68.2 kg (150 lb 6.4 oz) 09/29/2021 9:30 A M SCHEME TECHNICIAN Height 152.4 cm (5') 09/29/2021 9:30 AM SCHEME TECHNICIAN Body Mass Index 29.37 09/29/2021 9:30 AM SCHEME TECHNICIAN documented in this encounter Patient Instructions * Patient Instructions* Thi Lugo MD - 09/29/2021 9:20 AM SCHEME TECHNICIAN Increase pantoprazole to twice daily x 7 days. And then reduce to once daily. ME TECHNICIAN documented in this encounter Progress Notes * Thi Lugo MD - 09/29/2021 9:20 AM CST Reason for Visit: Weakness (since having COVID 09/08/21) and Medication (discuss Doxycycline- vomiting this morning after taking it ) History of Present Illness: HPI Miss Chio Orantes is a 70-year-old female with complex past and current medical history but not limited to asthma, CVA, hypertension, A. fib on Eliquis, heart failure preserved ejection fraction, on methotrexate for SLE, restless legs and hypertension was seen today follow-up on COVID. Patient had a telemedicine visit and was tested positive for Covid on 09/08/2020. Symptomatic management was advised with Tessalon Perles as needed. Antibody infusion was done 09/11 since immunocompromised. Due to persisting symptoms patient's PCP Dr. Wren ordered CBC CMP and chest x-ray. Chest Xray- 09/20 showed Covid pneumonia and increased right upper lobe density. She has a CT scan pending for this for today to rule out malignancy. Patient was also started on doxycycline by Dr. Wren. Her CBC and CMP were normal. Today, she states she still feels very tired. She started Doxycycline for 1 week. She threw up thismorning. She has nausea and feels sick with the antibiotics. Her chest feels not right sometimes. No fever. No phlegm. Some discomfort with coughing. No wheezing.Cough is much better, no spells anymore. No other concerns for today. ROS: Review of Systemsnegative except HPI Medications: Current Outpatient Medications: ??? albuterol sulfate HFA (VENTOLIN HFA) 108 (90 Base) MCG/ACT inhaler, Inhale 2 puffs into the lungs every 4 (four) hours as needed for Wheezing., Disp: 8 g, Rfl: 3 ??? apixaban (ELIQUIS) 5 MG tablet, TAKE 1 TABLET BY MOUTH TWICE A DAY, Disp: , Rfl: ??? atorvastatin 80 MG tablet, TAKE 1 TABLET BY MOUTH EVERY DAY, Disp: , Rfl: ??? AZELASTINE 0.1 % nasal spray, INSTILL 1 SPRAY INTO EACH NOSTRIL DIRECTED 2 TIMES PER DAY, Disp: 30 mL, Rfl: 2 ??? B-D 3CC LUER-KAILASH SYR 22GX1 22G X 1 3 ML Misc, USE ONCE A MONTH DIRECTED WITH METHOTREXATE,Disp: , Rfl: ??? B-D INSULIN SYRINGE 1CC/25G 25G X 5/8 1 ML Misc, USE DIRECTED FOR 90 DAYS, Disp: , Rfl: ??? BD INTEGRA SYRINGE 25G X 1 3 ML Misc, USE DIRECTED FOR 90 DAYS, Disp: , Rfl: ??? bisoprolol 5 MG tablet, TAKE 1 TABLET BY MOUTH EVERY DAY, Disp: , Rfl: ??? calcium carbonate 600 MG tablet, Take by mouth daily., Disp: , Rfl: ??? calcium carbonate-vitamin D (OSCAL 500/200 D-3) 500-200 MG-UNIT Tab, Take by mouth daily., Disp: , Rfl: ??? Cholecalciferol (VITAMIN D3) 50 MCG (1999 UT) Cap, take 1 by Oral route every day, Disp: , Rfl: ??? etodolac 400 MG tablet, , Disp: , Rfl: ??? folic acid 1 MG tablet, Take 1 mg by mouth daily., Disp: , Rfl: ??? furosemide 20 MG tablet, TAKE 1 TABLET BY MOUTH EVERY DAY, Disp: , Rfl: ??? HYDROCHLOROTHIAZIDE 25 MG tablet, TAKE 1 TABLET BY MOUTH EVERY DAY, Disp: 90 tablet, Rfl: 0 ??? hydroxychloroquine 200 MG tablet, Take 200 mg by mouth 2 (two) times daily., Disp: , Rfl: ??? methotrexate 2.5 MG tablet, , Disp: , Rfl: ??? montelukast 10 MG tablet, TAKE 1 TABLET BY MOUTH EVERY DAY EVERY NIGHT, Disp: , Rfl: ??? nitroglycerin 0.4 MG SL tablet, May repeat dose every 5 minutes for up to 3 doses total., Disp:, Rfl: ??? ondansetron (ZOFRAN) 4 MG tablet, Take 1 tablet (4 mg total) by mouth every 8 (eight) hours as needed for Nausea., Disp: 20 tablet, Rfl: 0 ??? PANTOPRAZOLE EC 40 MG tablet, TAKE 1 TABLET BY MOUTH TWICE A DAY, Disp: 180 tablet, Rfl: 1 ??? PARoxetine 20 MG tablet, Take 1 tablet (20 mg total) by mouth daily., Disp: 90 tablet, Rfl: 1 ??? potassium chloride CR 20 MEQ tablet, TAKE 2 TABLETS EVERY MORNING AND 2 TABLETS EVERY EVENING, Disp: , Rfl: ??? vitamin C 1000 MG tablet, Take 1,000 mg by mouth daily., Disp: , Rfl: ??? abatacept (ORENCIA) 250 MG injection, , Disp: 3 each, Rfl: ??? fluticasone 110 MCG/ACT inhaler, Inhale 2 puffs into the lungs 2 (two) times daily., Disp: , Rfl: Allergies Allergen Reactions [...] TRIGGER FINGER RELEASE ??? HYSTERECTOMY Social History Socioeconomic History ??? Marital status: Spouse name: Not on file ??? Number of children: Not on file ??? Years of education: Not on file ??? Highest education level: Not on file Occupational History ??? Not on file Tobacco Use ??? Smoking status: Never Smoker ??? Smokeless tobacco: Never Used Vaping Use ??? Vaping Use: Never used Substance and Sexual Activity ??? Alcohol use: Yes Comment: up 2 glasses of wine/month ??? Drug use: Never ??? Sexual activity: Not on file Other Topics Concern ??? Not on file Social History Narrative LIVE AT HOME WITH Social Determinants of Health Financial Resource Strain: Not on file Food Insecurity: Not on file Transportation Needs: Not on file Physical Activity: Not on file Stress: Not on file Social Connections: Not on file Intimate Partner Violence: Not on file E-Cigarettes Questions Responses E-Cigarette Use Never User Family History Problem Relation Name Age of Onset ??? Heart Disease Mother ??? TB Father ??? Other (lungs) Father Family Status Relation Name Status ??? Mother ??? Father Physical Exam Vitals reviewed. HENT: Head: Normocephalic and atraumatic. Mouth/Throat: Oropharynx is clear. Eyes: Extraocular Movements: Extraocular movements intact. Conjunctiva/sclera: Conjunctivae normal. Cardiovascular: Rate and Rhythm: Normal rate and regular rhythm. Pulses: Normal pulses. Heart sounds: Normal heart sounds. Pulmonary: Effort: Pulmonary effort is normal. Breath sounds: Normal breath sounds. No wheezing. Abdominal: General: Abdomen is flat. Bowel sounds are normal. There is no distension. Palpations: Abdomen is soft. Tenderness: There is no abdominal tenderness. There is no guarding or rebound. Musculoskeletal: Right lower leg: No edema. Left lower leg: No edema. Skin: General: Skin is warm. Neurological: Mental Status: She is alert and oriented to person, place, and time. Psychiatric: Mood and Affect: Mood normal. Behavior: Behavior normal. Thought Content: Thought content normal. Judgment: Judgment normal. Filed Vitals: 09/29/21 0930 BP: 110/62 Pulse: 79 Resp: 18 Temp: 98.2 ??F (36.8 ??C) TempSrc: Temporal SpO2: 95% Weight: 68.2 kg (150 lb 6.4 oz) Height: 5' (1.524 m) Diagnoses/Impression: 1. [id number] syndrome manifesting as chronic fatigue 2. Right upper lobe consolidation (CMS/HCC) 3. Nausea and vomiting in adult ondansetron (ZOFRAN) 4 MG tablet Recommendations and Plan: 1. Hrno-[id number] syndrome manifesting as chronic fatigue Symptoms overall improving. -I discussed how fatigue and loss of appetite can persist for about 4 to 6 weeks after a viral illness like this. Conservative management. -Eat to appetite. -Continue to drink plenty of fluids. 2. Right upper lobe consolidation (CMS/HCC) Seen on recent x-ray done 09/20, where malignancy could not be ruled out.On doxycycline. -Patient does have a follow-up CT scan that is pending. I will Follow-up results. 3. Nausea and vomiting in adult -Increase pantoprazole to twice daily x 7 days. And then reduce to once daily. - ondansetron (ZOFRAN) 4 MG tablet; Take 1 tablet (4 mg total) by mouth every 8 (eight) hours as needed for Nausea. Dispense: 20 tablet; Refill: 0 Follow-up as needed. Patient voiced understanding and agrees with the plan. All questions answered. Orders Placed This Encounter ??? vitamin C 1000 MG tablet ??? ondansetron (ZOFRAN) 4 MG tablet Reviewed and updated this visit by provider: Meds Problems Thi Lugo MD Referring Provider: No ref. provider found PCP: Thi Lugo MD ME TECHNICIAN documented in this encounter Plan of Treatment Upcoming Encounters Date Type Department Care Team (Late st Contact Info) Description 10/02/2024 11:40 AM SCHEME TECHNICIAN Office Visit [facility] Group Multispecialty Care - [address] [place] [phone] Johnnie Lr MD 3 [facility] [address] [place] [address] 01/04/2025 9:50 AM CDT Office Visit [facility] Group Family Medicine - [place] [address] [place] [address] Emily Jordan MD [address] [place] [address] documented as of this encounter Visit Diagnoses Diagnosis [id number] syndrome manifesting as chronic fatigue- Primary Right upper lobe consolidation (CMS/HCC) Pneumococcal pneumonia (streptococcus pneumoniae pneumonia) Nausea and vomiting in adult Nausea with vomiting documented in this encounter Additional Health Concerns Infection Onset Date Last Indicated Resolved Time COVID-19 Confirmed 09/08/2021 09/08/2021 12:32 AM SCHEME TECHNICIAN Assessment Noted Time PHQ-9 Depression Total Score: 13 022 9:37 AM SCHEME TECHNICIAN documented as of this encounter Care Teams Pediatric Anesthesiologist Relationship Specialty [place] [address] [facility] [address] [place] [address] PCP - General FAMILY PRACTICE 09/29/21 06/08/24 [place] [address] [facility] [address] [place] [address] RHEUMATOLOGY 09/27/20 documented as of this encounter
--- OUTSIDE RECORDS SUMMARY | 2024-08-29 09:59 | XMS_ITS | Encounter Summary ---
Author Organization [facility] Address [address] [place] [address]. [place] [address] [place] [address] Care Team Providers Care Sales Account Associate Name Role Phone Gladis Song MD Unavailable Siena Johnson MD Primary Care Provider Encounter Details Date Type Department Care Team (Latest Contact Info) Description 09/25/2021 7:40 AM INFORMATICS SCIENTIST - 09/25/2021 11:59 PM INFORMATICS SCIENTIST Hospital Encounter [facility] [address] [place] [address] [place] [address] [place] [address] Discharge Disposition: Home or Self [...] on file Legal Sex Female 10:22 PM INFORMATICS SCIENTIST Gender Identity Female 09/12/2021 9:51 AM INFORMATICS SCIENTIST Sexual Orientation Straight 09/12/2021 9: 51 AM INFORMATICS SCIENTIST COVID-19 Exposure Response Date Recorded In the last month, have you been in contact with someone who was confirmed or suspected to have Coronavirus / COVID-19? No / Unsure 09/25/2021 7:40 AM INFORMATICS SCIENTIST documented as of this encounter Medications at Time of Discharge atorvastatin 80 MG tablet TAKE 1 TABLET BY MOUTH EVERY DAY 05/26/2019 Calcium Carbonate Antacid (CALCIUM CARBONATE OR) Take 600 mg by mouth daily. nitroglycerin 0.4 MG SL tablet As needed 05/23/2018 vitamin D3, cholecalciferol, 125 mcg capsule 1 capsule (125 mcg total) daily. 11/30/2014 abatacept (ORENCIA) 250 MG injectionIndication s:Systemic lupus erythematosus, unspecified SLE type, unspecified organ involvement status ([facility]) 3 each 02/07/2021 2 albuterol sulfate HFA (VENTOLIN HFA) 108 (90 Base) MCG/ACT inhalerIndications: Shortness of breath Inhale 2 puffs into the lungs every 4 (four) hours as needed for Wheezing. 8 g 3 11/29/2020 2 apixaban 5 MG tablet TAKE 1 TABLET BY MOUTH TWICE A DAY 03/07/2020 2 AZELASTINE 0.1 % nasal sprayIndications:Al lergic rhinitis, unspecified seasonality, unspecified trigger INSTILL 1 [...] MG-UNIT Tab Take by mouth daily. 2 dexlansoprazole 60 MG capsule Take 60 mg by mouth 2 (two) times daily. 2 DICYCLOMINE 10 MG capsuleIndications: Irritable bowel syndrome with diarrhea TAKE 1 CAPSULE BY MOUTH FOUR TIMES A DAY BEFORE MEALS AND NIGHTLY FOR 30 DAYS 360 capsule 1 01/23/2021 2 doxycycline hyclate 100 MG capsuleIndications: Pneumonia due to COVID-19 virus Take 1 capsule (100 mg total) by mouth 2 (two) times daily for 10 days. 20 capsule 09/22/2021 2 etodolac 400 MG tablet 2 fluticasone 110 MCG/ACT inhaler Inhale 2 puffs into the lungs 2 (two) times daily. 03/31/2019 2 folic acid 1 MG tablet Take 1 mg by mouth daily. 05/14/2018 2 furosemide 20 MG tablet TAKE 1 TABLET BY MOUTH EVERY DAY 06/16/2019 3 HYDROCHLOROTHIAZIDE 25 MG tabletIndications:E ssential hypertension TAKE 1 TABLET BY MOUTH EVERY DAY 90 tablet 08/17/2021 2 hydroxychloroquine 200 MG tablet Take 200 mg by mouth 2 (two) times daily. 05/14/2018 2 ID NOW COVID-19 Kit Test as directed 04/09/2021 2 methotrexate 2.5 MG tablet 08/17/2021 4 Methscopolamine [place] 5 MG Tab Take 5 mg by mouth daily. 05/19/2021 2 metoprolol succinate ER 50 MG 24 hr tablet metoprolol succinate ER 50 mg tablet,extended release 24 hr 2 montelukast 10 MG tablet TAKE 1 TABLET BY MOUTH EVERY DAY EVERY NIGHT 02/16/2020 3 omeprazole EC 20 MG Tab EC tablet omeprazole 20 mg capsule,delayed release 2 ondansetron 4 MG disintegrating tablet DISSOLVE 1 TABLET IN MOUTH 10 MINUTES PRIOR TO EACH PREP DOSE NEEDED FOR NAUSEA 11/02/2019 2 PANTOPRAZOLE EC 40 MG tabletIndications:G astroesophageal reflux [...] st Contact Info) Description 10/02/2024 11:40 AM INFORMATICS SCIENTIST Office Visit [facility] Medical [facility] Multispecialty Care - [facility] [address] [facility] [address] [place] [address] Johnnie Lr MD [address] [facility] [address] [place] [address] 01/04/2025 9:50 AM CDT Office Visit [facility] Medical Group Family Medicine - [place] [address] [place] [address] Emily Jordan MD [address] [place], [place] [address] documented as of this encounter Procedures Procedure Name Priority Date/Time Associated Diagnosis Comments COMPREHENSIVE METABOLIC PANEL Routine 09/25/2021 7:58 AM INFORMATICS SCIENTIST Lab test positive for detection of COVID-19 virus CBC W/DIFF AUTOMATED Routine 09/25/2021 7:58 AM INFORMATICS SCIENTIST Lab test positive for detection of COVID-19 virus documented in this encounter Results * (ABNORMAL) COMPREHENSIVE METABOLIC PANEL (09/25/2021 7:58 AM INFORMATICS SCIENTIST) [facility] GLUCOSE 82 70 - 99 MG/DL 09/25/2021 8:24 AM INFORMATICS SCIENTIST [facility] BUN 22(H) 7 - 18 MG/DL 09/25/2021 8:[address] [facility] CREATININE S/P/B 0.83 0.55 - 1.02 MG/DL 09/25/2021 8:[address] [facility] SODIUM S/P/B 142 136 - 145 MMOL/L 09/25/2021 8:[address] [facility] POTASSIUM S/P/B 3.8 3.5 - 5.1 MMOL/L 09/25/2021 8:[address] [facility] CHLORIDE S/P/B 105 100 - 108 MMOL/L 09/25/2021 8:[address] [facility] CO2 31.4 21 - 32 MMOL/L 09/25/2021 8:[address] [facility] CALCIUM S/P/B 8.9 8.5 - 10.1 MG/DL 09/25/2021 8:[address] [facility] BILIRUBIN TOTAL S/P/B 0.5 0.2 - 1.2 MG/DL 09/25/2021 8:[address] [facility] TOTAL PROTEIN S/P/B 6.8 6.4 - 8.2 G/DL 09/25/2021 8:[address] [facility] ALBUMIN S/P/B 3.4 3.4 - 5.0 G/DL 09/25/2021 8:[address] [facility] AST 37 15 - 37 U/L 09/25/2021 8:[address] [facility] ALT 35 14 - 55 U/L 09/25/2021 8:[address] [facility] ALKALINE PHOSPHATASE S/P/B 109 50 - 136 U/L 09/25/2021 8:[address] [facility] ANION GAP 5.6 5 - 15 MMOL/L 09/25/2021 8:[address] [facility] BUN CREATININE RATIO 26.5(H) 6 - 26 09/25/2021 8:[address] [facility] A/G RATIO 1.0 1.0 - 2.0 RATIO 09/25/2021 8:[address] [facility] EGFR NON-AFR. AMER. 70(L) >90 ML/MIN/1.7 3 M2 09/25/2021 8:[address] [facility] EGFR AFR. AMER. 82(L) >90 ML/MIN/1.7 3 M2 09/25/2021 8:[address] [facility] Comment: NOTE: eGFR is not calculated for patients <18 years of age. This is an estimated GFR (CKD EPI) and should not be used for calculating drug doses. 09/25/2021 7:58 AM INFORMATICS SCIENTIST Siena Johnson MD LABORATORY Final Result [facility] [address] [place] [address], * (ABNORMAL) CBC W/DIFF AUTOMATED (09/25/2021 7:58 AM INFORMATICS SCIENTIST) WBC 6.4 4.4 - 11.0 x10'3/uL 09/25/2021 8:[address] [facility] RBC 4.48(L) 4.50 - 5.10 x10'6/uL 09/25/2021 8:[address] [facility] HGB 13.0 12.3 - 15.3 G/DL 09/25/2021 8:[address] [facility] HCT 41.3 35.9 - 44.6 % 09/25/2021 8:[address] [facility] MCV 92.2 80.0 - 96.0 FL 09/25/2021 8:[address] [facility] MCH 29.0 25.3 - 30.9 PG 09/25/2021 8:[address] [facility] MCHC 31.5 31.0 - 34.1 G/DL 09/25/2021 8:[address] [facility] RDW 14.9 12.4 - 15.1 % 09/25/2021 8:[address] [facility] PLT 311 151 - 353 x10'3/uL 09/25/2021 8:[address] [facility] MPV 9.2(L) 9.6 - 12.0 FL 09/25/2021 8:[address] [facility] RBC MORPHOLOGY NORMAL 09/25/2021 8:[address] [facility] PLT MORPH. NORMAL 09/25/2021 8:[address] [facility] WBC MORPHOLOGY NORMAL 09/25/2021 8:[address] [facility] LYMPHOCYTES % 32.3 15.8 - 45.0 % 09/25/2021 8:[address] [facility] NEUTROPHILS % 47.1 42.1 - 71.9 % 09/25/2021 8:[address] [facility] MONOCYTES % 14.9(H) 5.7 - 12.5 % 09/25/2021 8:[address] [facility] EOSINOPHILS 4.0 0.0 - 5.6 % 09/25/2021 8:[address] [facility] BASOPHILS 1.4(H) 0.0 - 1.3 % 09/25/2021 8:[address] [facility] ABS. NEUTROPHILS 3.02 1.40 - 6.00 x10'3/uL 09/25/2021 8:[address] [facility] IMMATURE GRANS % 0.3 0.0 - 0.5 % 09/25/2021 8:09 AM INFORMATICS SCIENTIST [facility] ABS. LYMPHOCYTES 2.08 0.80 - 4.70 x10'3/uL 09/25/2021 8:09 AM INFORMATICS SCIENTIST [facility] 09/25/2021 7:58 AM INFORMATICS SCIENTIST Siena Johnson MD LABORATORY Final Result [facility] [address] [place] [address], documented in this encounter Visit Diagnoses Diagnosis Lab test positive for detection of COVID-19 virus documented in this encounter Additional Health Concerns Infection Onset Date Last Indicated Resolved Time COVID-19 Confirmed 09/08/2021 09/08/2021 12:32 AM INFORMATICS SCIENTIST documented as of this encounter Care Teams Sales Account Associate Relationship Specialty [place] [address] [facility]. [facility] [address] [place] [address] PCP - General INTERNAL MEDICINE 05/15/21 09/28/21 [place] [address] [facility]. [address] [address] RHEUMATOLOGY 09/27/20 documented as of this encounter
--- OUTSIDE RECORDS SUMMARY | 2024-08-29 09:59 | XMS_ITS | Encounter Summary ---
Author Organization [facility] Address [address] [place] [address]. [place], [place] [address] [place] [address] Care Team Providers Care Engineering Design Manager Name Role Phone Gladis Song MD Unavailable Thi Lugo MD Primary Care Provider [phone] Encounter Details Date Type Department Care Team (Late st Contact Info) Description 10/02/2021 Orders Only [facility] Family & Internal Medicine - [address] [address] Thi Lugo MD [address] [place] [address]. [address] [place] [address] Social History Tobacco Use Types Packs/Day [...] on file Legal Sex Female 10:22 PM DEVELOPMENT ASSOCIATE Gender Identity Female 09/12/2021 9:51 AM DEVELOPMENT ASSOCIATE Sexual Orientation Straight 09/12/2021 9: 51 AM DEVELOPMENT ASSOCIATE COVID-19 Exposure Response Date Recorded In the last month, have you been in contact with someone who was confirmed or suspected to have Coronavirus / COVID-19? No / Unsure 09/29/2021 9:29 AM DEVELOPMENT ASSOCIATE documented as of this encounter Plan of Treatment Upcoming Encounters Date Type Department Care Team (Late st Contact Info) Description 10/02/2024 11:40 AM DEVELOPMENT ASSOCIATE Office Visit [facility] Multispecialty Care - [facility] [address] [facility] [place] [address] Johnnie Lr MD 3 [facility] [address] [place] [address] 01/04/2025 9:50 AM CDT Office Visit [facility] Family Medicine - [place] [address] [facility] [address] [place] [id number] Emily Jordan MD [address] [place] [address] documented as of this encounter Visit Diagnoses Diagnosis Multiple pulmonary nodules- Primary Other nonspecific abnormal finding of lung field Diffuse interstitial pulmonary fibrosis (CMS/HCC HHS/HCC) Postinflammatory pulmonary fibrosis documented in this encounter Additional Health Concerns Infection Onset Date Last Indicated Resolved Time COVID-19 Confirmed 09/08/2021 09/08/2021 12:32 AM DEVELOPMENT ASSOCIATE Assessment Noted Time PHQ-9 Depression Total Score: 13 022 9:37 AM DEVELOPMENT ASSOCIATE documented as of this encounter Care Teams Engineering Design Manager Relationship Specialty [place] [address] [facility] [address] [place] [address] PCP - General FAMILY PRACTICE 09/29/21 06/08/24 [place] [address] [facility] [place] [address] RHEUMATOLOGY 09/27/20 documented as of this encounter
--- OUTSIDE RECORDS SUMMARY | 2024-08-29 09:59 | XMS_ITS | Encounter Summary ---
Author Organization [facility] Address [address] [place] [address]. [place] [address] [place] [address] Care Team Providers Care Oyster Shipper Name Role Phone Gladis Song MD Unavailable Thi Lugo MD Primary Care Provider [phone] Encounter Details Date Type Department Care Team (Latest Contact Info) Description 10/10/2021 1:11 PM INSPECTOR FLOOR SUB ASSEMBLY - 10/10/2021 11:59 PM [facility] Hospital Encounter [facility] [address] [place], [place] [address] [place] [address] [place] [address] Discharge Disposition: Home or Self [...] on file Legal Sex Female 10:22 PM INSPECTOR FLOOR SUB ASSEMBLY Gender Identity Female 09/12/2021 9:51 AM INSPECTOR FLOOR SUB ASSEMBLY Sexual Orientation Straight 09/12/2021 9: 51 AM INSPECTOR FLOOR SUB ASSEMBLY COVID-19 Exposure Response Date Recorded In the last 10 days, have yo u been in contact with someone who was confirmed or suspected to have Coronavirus/COVID-19? No / Unsure 10/10/2021 10:51 AM INSPECTOR FLOOR SUB ASSEMBLY documented as of this encounter Medications at [...] total) daily. 11/30/2014 abatacept (ORENCIA) 250 MG injectionIndicati ons:Systemic lupus erythematosus, unspecified SLE type, unspecified organ involvement status ([facility]) 3 each 02/07/2021 2 albuterol sulfate HFA (VENTOLIN HFA) 108 (90 Base) MCG/ACT inhalerIndication s:Shortness of breath Inhale 2 puffs into the lungs every 4 (four) hours as needed for Wheezing. 8 g 3 11/29/2020 2 apixaban 5 MG tablet TAKE 1 TABLET BY MOUTH TWICE A DAY 03/07/2020 2 AZELASTINE 0.1 % nasal sprayIndications: Allergic rhinitis, unspecified seasonality, unspecified trigger INSTILL 1 [...] TABLET BY MOUTH EVERY DAY 06/16/2019 3 hydroxychloroquin e 200 MG tablet Take 200 mg by mouth 2 (two) times daily. 05/14/2018 2 methotrexate 2.5 MG tablet 08/17/2021 4 montelukast 10 MG tablet TAKE 1 TABLET BY MOUTH EVERY DAY EVERY NIGHT 02/16/2020 3 PANTOPRAZOLE EC 40 MG tabletIndications :Gastroesophageal reflux disease without esophagitis TAKE 1 TABLET BY MOUTH TWICE A DAY 180 tablet 1 09/09/2020 3 PARoxetine 20 MG tabletIndications :Anxiety state Take 1 tablet (20 mg total) by mouth daily. 90 tablet 1 07/25/2021 2 potassium chloride CR 20 MEQ tablet TAKE 2 TABLETS EVERY MORNING AND 2 TABLETS EVERY EVENING 01/04/2020 4 documented as of this encounter Plan of Treatment Upcoming Encounters Date Type Department Care Team (Late st Contact Info) Description 10/02/2024 11:40 AM INSPECTOR FLOOR SUB ASSEMBLY Office Visit [facility] Multispecialty Care - [facility] [address] [facility] [place] [address] Johnnie Lr MD [address] [facility] [address] [place] [address] 01/04/2025 9:50 AM CDT Office Visit [facility] Family Medicine - [place] [address] [place] [address] Emily Jordan MD [address] [address] documented as of this encounter Procedures Procedure Name Priority Date/Time Associated Diagnosis Comments QUANTIFERON - TB GOLD PLUS, 1T Routine 10/10/2021 11:49 AM INSPECTOR FLOOR SUB ASSEMBLY Fatigue, unspecified type Multiple pulmonary nodules documented in this encounter Results * QUANTIFERON - TB GOLD PLUS, 1T (10/10/2021 11:49 AM INSPECTOR FLOOR SUB ASSEMBLY) QUANTIFERON-TB PLUS 1T NEGATIVE NEGATIVE 10/13/2021 11:00 AM INSPECTOR FLOOR SUB ASSEMBLY [facility] Comment: Negative test result. M. tuberculosis complex infection unlikely. NIL (TB) 0.02 IU/mL 10/13/2021 11:00 AM INSPECTOR FLOOR SUB ASSEMBLY [facility] MITOGEN NIL 5.54 IU/mL 10/13/2021 11:00 AM INSPECTOR FLOOR SUB ASSEMBLY [facility] TB1 AG MINUS NIL 0.00 IU/mL 10/13/19 22 11:00 AM INSPECTOR FLOOR SUB ASSEMBLY [facility] TB2 AG MINUS NIL 0.00 IU/mL 10/13/19 11:00 AM INSPECTOR FLOOR SUB ASSEMBLY [facility] Comment: The Nil tube value reflects the background interferon gamma immune response of the patient's blood sample. This value has been subtracted from the patient's displayed TB and Mitogen results. Lower than expected results with the Mitogen tube prevent false-negative Quantiferon readings by detect- ing a patient with a potential immune suppressive condition and/or suboptimal pre-analytical specimen handling. The TB1 Antigen tube is coated with the M. tuberculosis-specific antigens designed to elicit responses from TB antigen primed CD4+ helper T-lymphocytes. The TB2 Antigen tube is coated with the M. tuberculosis-specific antigens designed to elicit responses from TB antigen primed CD4+ helper and CD8+ cytotoxic T-lymphocytes. For additional information, please refer to http://education.Bouf.Avalara/faq/CPE812 (This link is being provided for information/ educational purposes only.) Test Performed by Romel De Jesus, [employer] [facility], [address] [place] [address] Dmitry Xavier M.D., Ph.D., Director of Laboratories , [facility] [id number] 10/10/2021 11:4 9 AM INSPECTOR FLOOR SUB ASSEMBLY Thi Lugo MD LABORATORY Final Result [facility] [address] [place], [place] , documented in this encounter Visit Diagnoses Diagnosis Fatigue, unspecified type Multiple pulmonary nodules Other nonspecific abnormal finding of lung field documented in this encounter Additional Health Concerns Assessment Noted Time PHQ-9 Depression Total Score: 13 022 9:37 AM INSPECTOR FLOOR SUB ASSEMBLY documented as of this encounter Care Teams Oyster Shipper Relationship Specialty [place] [address] [facility] [address] [place] [address] PCP - General FAMILY PRACTICE 09/29/21 06/08/24 [place] [address] [facility] [address] RHEUMATOLOGY 09/27/20 documented as of this encounter
--- OUTSIDE RECORDS SUMMARY | 2024-08-29 09:59 | XMS_ITS | Encounter Summary ---
Author Organization [facility] Address [facility] [facility] [place] [address] [place] [address] Care Team Providers Care Pressure Steamer Tender Name Role Phone Gladis Song MD Unavailable Thi Lugo MD Primary Care Provider [phone] Encounter Details Date Type Department Care Team (Latest Contact Info) Description 12/29/2021 Scan HEALTH INFO SRVCS Scanned, Documents Social [...] on file Legal Sex Female 10:22 PM PEWTER FABRICATOR Gender Identity Female 09/12/2021 9:51 AM PEWTER FABRICATOR Sexual Orientation Straight 09/12/2021 9: 51 AM PEWTER FABRICATOR documented as of this encounter Plan of Treatment Upcoming Encounters Date Type Department Care Team (Late st Contact Info) Description 10/02/2024 11:40 AM PEWTER FABRICATOR Office Visit [facility] Multispecialty Care - [facility] [address] [facility], [address] [place] [address] Johnnie Lr MD 3 [facility] [address] [place] [address] 01/04/2025 9:50 AM CDT Office Visit [facility] Family Medicine - [place] [address] [place] [address] Emily Jordan MD [address] [place] [address] documented as of this encounter Visit Diagnoses Not on filedocumented in this encounter Additional Health Concerns Assessment Noted Time PHQ-9 Depression Total Score: 13 022 9:37 AM PEWTER FABRICATOR documented as of this encounter Care Teams Pressure Steamer Tender Relationship Specialty [place] [address] [facility] [place] [address] PCP - General FAMILY PRACTICE 09/29/21 06/08/24 [place] [address] [facility]. [facility] [address] [place] [address] RHEUMATOLOGY 09/27/20 documented as of this encounter
--- OUTSIDE RECORDS SUMMARY | 2024-08-29 09:59 | XMS_ITS | Encounter Summary ---
Author Organization [facility] Address [address] [place] [address]. [place], [place] [address] [place] [address] Care Team Providers Care Cardiac Monitor Name Role Phone Gladis Song MD Unavailable Thi Lugo MD Primary Care Provider [phone] Reason for Visit * Reason Comments Follow Up Encounter Details Date Type Department Care Team (Late st Contact Info) Description 10/24/2021 10:00 AM SENIOR ONLINE MARKETING MANAGER Office Visit [facility] Family & Internal Medicine [address] [address] Thi Lugo MD [address] [place] [address]. [address] [place] [address] Follow Up Social History Tobacco Use Types [...] on file Legal Sex Female 10:22 PM SENIOR ONLINE MARKETING MANAGER Gender Identity Female 09/12/2021 9:51 AM SENIOR ONLINE MARKETING MANAGER Sexual Orientation Straight 09/12/2021 9: 51 AM SENIOR ONLINE MARKETING MANAGER COVID-19 Exposure Response Date Recorded In the last 10 days, have yo u been in contact with someone who was confirmed or suspected to have Coronavirus/COVID-19? No / Unsure 10/24/2021 10:34 AM SENIOR ONLINE MARKETING MANAGER documented as of this encounter Last Filed Vital Signs Vital Sign Reading Time Taken Comments Blood Pressure 112/72 10/24/2021 10:18 AM SENIOR ONLINE MARKETING MANAGER Pulse 72 10/24/2021 10:18 AM SENIOR ONLINE MARKETING MANAGER Temperature 37.3 ??C (99.2 ??F) 10/24/2021 10:[address] Respiratory Rate 18 10/24/2021 10:18 AM SENIOR ONLINE MARKETING MANAGER Oxygen Saturation 97% 10/24/2021 10:18 AM SENIOR ONLINE MARKETING MANAGER Inhaled Oxygen Concentration - - Weight - - Height - - Body Mass Index - - documented in this encounter Progress Notes * Thi Lugo MD - 10/24/2021 10:00 AM CST Reason for Visit: Follow Up History of Present Illness: HPI Miss Chio Orantes??is a pleasant 70-year-old female with complex past and current medical history but not limited to asthma, CVA, A. fib on Eliquis, heart failure preserved ejection fraction, on methotrexate for SLE,??restless legs and hypertension was seen today?? in office for follow-up on hypotension. Patient states she is doing well. Feels way better than last week. Her hydrochlorothiazide was stopped 2 weeks ago due to hypotension. She states her systolics have been slightly on the higher side. Blood pressure at home today was 141/77mmHg , although normotensive now. She was able to follow-up with her crime specialist and they restarted her methotrexate. Patient is also currently on prednisone by rheumatology. She does have pain all over. However this is improving. No cough. No fever. No shortness of breath. No chest pain. Patient does complain of worsening acid reflux. She has been taking PPI daily. No nausea or vomiting. Appetite is improving. No abdominal pain. No other concerns for today. ROS: Review of Systems negative except documented in HPI. Medications: Current Outpatient Medications: ??? sucralfate 1 G tablet, Take 1 tablet (1 g total) by mouth 4 (four) times daily before meals andnightly., Disp: 40 tablet, Rfl: 0 ??? albuterol sulfate HFA (VENTOLIN HFA) 108 [...] MG tablet, , Disp: , Rfl: ??? fluticasone 110 MCG/ACT inhaler, Inhale 2 puffs into the lungs 2 (two) times daily., Disp: , Rfl: ??? folic acid 1 MG tablet, Take 1 mg by mouth daily., Disp: , Rfl: ??? furosemide 20 MG tablet, TAKE 1 TABLET BY MOUTH EVERY DAY, Disp: , Rfl: ??? hydroxychloroquine 200 MG tablet, Take 200 [...] reviewed. HENT: Head: Normocephalic and atraumatic. Eyes: Extraocular Movements: Extraocular movements intact. Conjunctiva/sclera: Conjunctivae normal. Cardiovascular: Rate and Rhythm: Normal rate and regular rhythm. Pulmonary: Effort: Pulmonary effort is normal. Breath sounds: Normal breath sounds. No wheezing. Musculoskeletal: General: Normal range of motion. Cervical back: Normal range of motion. Right lower leg: No edema. Left lower leg: No edema. Skin: General: Skin is warm. Neurological: Mental Status: She is alert and oriented to person, place, and time. Psychiatric: Mood and Affect: Mood normal. Behavior: Behavior normal. Thought Content: Thought content normal. Judgment: Judgment normal. Filed Vitals: 10/24/21 1018 BP: 112/72 Pulse: 72 Resp: 18 Temp: 99.2 ??F (37.3 ??C) SpO2: 97% Diagnoses/Impression: 1. GERD without esophagitis sucralfate 1 G tablet 2. Hypotension due to drugs Recommendations and Plan: 1. GERD without esophagitis Worse due to being on prednisone. -Continue PPI twice daily. - sucralfate 1 G tablet; Take 1 tablet (1 g total) by mouth 4 (four) times daily before meals and nightly. Dispense: 40 tablet; Refill: 0 Follow-up if symptoms persist or worsen. 2. Hypotension due to drugs Resolved on stopping HCTZ. Normotensive today. Advised to continue to monitor blood pressure once daily and maintain log. Follow-up in 1 month for blood pressure check and chronic medical conditions. Patient voiced understanding and agrees with the plan. All questions answered. Orders Placed This Encounter ??? sucralfate 1 G tablet Reviewed and updated this visit by provider: Thi Lugo MD Referring Provider: No ref. provider found PCP: Thi Lugo MD OR ONLINE MARKETING MANAGER OR ONLINE MARKETING MANAGER documented in this encounter Plan of Treatment Upcoming Encounters Date Type Department Care Team (Late st Contact Info) Description 10/02/2024 11:40 AM SENIOR ONLINE MARKETING MANAGER Office Visit [facility] Multispecialty Care - [facility] [address] [facility] [place] [id number] Johnnie Lr MD [address] [place] [address] [address] [place] [address] 01/04/2025 9:50 AM CDT Office Visit [facility] Family Medicine - [place] [address] [place] [address] Emily Jordan MD [address] [place] [address] documented as of this encounter Visit Diagnoses Diagnosis GERD without esophagitis- Primary Esophageal reflux Hypotension due to drugs Other iatrogenic hypotension documented in this encounter Additional Health Concerns Assessment Noted Time PHQ-9 Depression Total Score: 13 022 9:37 AM SENIOR ONLINE MARKETING MANAGER documented as of this encounter Care Teams Cardiac Monitor Relationship Specialty [place] [address] [facility]. [address] [place] [address] PCP - General FAMILY PRACTICE 09/29/21 06/08/24 [place] [id number] [facility]. [facility] [address] [place] [address] RHEUMATOLOGY 09/27/20 documented as of this encounter
--- OUTSIDE RECORDS SUMMARY | 2024-08-29 09:59 | XMS_ITS | Encounter Summary ---
Author Organization [facility] Address [address] [place] [address]. [place] [address] [place] [address] Care Team Providers Care Linemarker Name Role Phone Gladis Song MD Unavailable Siena Johnson MD Primary Care Provider [phone] Thi Lugo MD Primary Care Provider Reason for Visit * Reason Onset Date Comments Lab Results 09/28/2021 Encounter Details Date Type Department Care Team (Late st Contact Info) Description 09/28/2021 Telephone [facility] Medical Group Family & Internal Medicine [facility] [address] [place] [address] Siena Johnson MD [address] [place] [address] Lab Results Social History Tobacco Use Types Packs/Day [...] on file Legal Sex Female 10:22 PM ORACLE FUSION DEVELOPER Gender Identity Female 09/12/2021 9:51 AM ORACLE FUSION DEVELOPER Sexual Orientation Straight 09/12/2021 9: 51 AM ORACLE FUSION DEVELOPER COVID-19 Exposure Response Date Recorded In the last month, have you been in contact with someone who was confirmed or suspected to have Coronavirus / COVID-19? No / Unsure 09/29/2021 9:29 AM ORACLE FUSION DEVELOPER documented as of this encounter Progress Notes * Lawanda Kc RN - 09/28/2021 10:[address] Wren, labs are normal. Push fluids and make sure eating well. Appt made for tomorrow with Dr. Lugo. LE FUSION DEVELOPER * Lawanda Kc RN - 09/28/2021 10:12 AM CST Message sent to Dr. Wren to review LE FUSION DEVELOPER * Julianna Velasquez - 09/28/2021 9:45 AM CST Pt called wanting result of her labs they were done On 09/25/21 She states she not feelinng well She has weakness shakie legs Please advise [phone] LE FUSION DEVELOPER documented in this encounter Plan of Treatment Upcoming Encounters Date Type Department Care Team (Late st Contact Info) Description 10/02/2024 11:40 AM ORACLE FUSION DEVELOPER Office Visit [facility] Multispecialty Care - [facility] [address] [facility] [address] [place] [phone] Johnnie Lr MD [address] [facility] [address] [place] [address] 01/04/2025 9:50 AM CDT Office Visit [facility] Family Medicine - [place] [address] [place] [address] Emily Jordan MD [address] [place] [address] documented as of this encounter Visit Diagnoses Not on filedocumented in this encounter Additional Health Concerns Infection Onset Date Last Indicated Resolved Time COVID-19 Confirmed 09/08/2021 09/08/2021 12:32 AM ORACLE FUSION DEVELOPER documented as of this encounter Care Teams Linemarker Relationship Specialty [place] [address] [address] [facility] [address] [place] [address] PCP - General INTERNAL MEDICINE 05/15/21 09/28/21 [place] [address] [facility]. [address] [place] [address] PCP - General FAMILY PRACTICE 09/29/21 06/08/24 [place] [address] [facility] [address] [place] [address] RHEUMATOLOGY 09/27/20 documented as of this encounter
--- OUTSIDE RECORDS SUMMARY | 2024-08-29 09:59 | XMS_ITS | Encounter Summary ---
Author Organization [facility] Address [address] [place] [address]. [place], [place] [id number] [place] [address] Care Team Providers Care Combatant Swimmer Name Role Phone Gladis Song MD Unavailable Thi Lugo MD Primary Care Provider [phone] Encounter Details Date Type Department Care Team (Latest Contact Info) Description 10/10/2021 Travel Social History Tobacco Use Types Packs/Day [...] on file Legal Sex Female 10:22 PM UNDERWEAR TRIMMER Gender Identity Female 09/12/2021 9:51 AM UNDERWEAR TRIMMER Sexual Orientation Straight 09/12/2021 9: 51 AM UNDERWEAR TRIMMER COVID-19 Exposure Response Date Recorded In the last 10 days, have yo u been in contact with someone who was confirmed or suspected to have Coronavirus/COVID-19? No / Unsure 10/10/2021 10:51 AM UNDERWEAR TRIMMER documented as of this encounter Plan of Treatment Upcoming Encounters Date Type Department Care Team (Late st Contact Info) Description 10/02/2024 11:40 AM UNDERWEAR TRIMMER Office Visit [facility] Multispecialty Care - [facility] [address] [facility] [place] [address] Johnnie Lr MD [address] [facility] [place] [address] 01/04/2025 9:50 AM CDT Office Visit [facility] Family Medicine - [place] [address] [facility] [address] [place] [address] Emily Jordan MD [address] [place] [address] documented as of this encounter Visit Diagnoses Not on filedocumented in this encounter Additional Health Concerns Assessment Noted Time PHQ-9 Depression Total Score: 13 022 9:37 AM UNDERWEAR TRIMMER documented as of this encounter Care Teams Combatant Swimmer Relationship Specialty [place] [address] [facility]. [address] [place] [address] PCP - General FAMILY PRACTICE 09/29/21 06/08/24 [place] [address] [facility] [place] [address] RHEUMATOLOGY 09/27/20 documented as of this encounter
--- OUTSIDE RECORDS SUMMARY | 2024-08-29 09:59 | XMS_ITS | Encounter Summary ---
Author Organization [facility] Address [address] [place] [address]. [place], [place] [address] [place] [id number] Care Team Providers Care Process Safety Management Engineer Name Role Phone Gladis Song MD Unavailable Thi Lugo MD Primary Care Provider [phone] Reason for Visit * Reason Comments Stemi Alert Encounter Details Date Type Department Care Team (Late st Contact Info) Description 01/09/2022 9:38 PM CDT - 01/10/2022 2:04 AM CDT Emergency [facility] Emergency Room [address] [place] [address] Amelie Jefferson MD [address] [address] Stemi Alert Discharge Disposition: Home or Self Care (Routine [...] on file Legal Sex Female 10:22 PM 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 No / Unsure 01/09/2022 9:33 PM CDT documented as of this encounter Last Filed Vital Signs Vital Sign Reading Time Taken Comments Blood Pressure 118/48 01/10/2022 1:30 AM CDT Pulse 78 01/10/2022 2:02 AM CDT Temperature 36.4 ??C (97.6 ??F) 01/09/2022 10:00 PM C DT Respiratory Rate 13 01/10/2022 2:02 AM CDT Oxygen Saturation 95% 01/10/2022 2:02 AM CDT Inhaled Oxygen Concentration - - Weight 68 kg (149 lb 14.6 oz) 01/09/2022 9:56 PM CDT Height 149.9 cm (4' 11 ) 01/09/2022 9:56 PM CDT Body Mass Index 30.28 01/09/2022 9:56 PM CDT documented in this encounter Discharge Instructions * Discharge Instructions* Amelie Jefferson MD - 01/10/2022 1:50 AM CDT Follow up as directed. Return for any concerns. * Attachments The following attachments cannot be sent through Care Everywhere. * Chest Pain Discharge Instructions ([place] Citizen) documented in this encounter Medications at Time [...] TABLET BY MOUTH EVERY DAY 03/22/2020 10/19/2022 calcium carbonate-vitamin D (OSCAL 500/200 D-3) 500-200 MG-UNIT Tab Take by mouth daily. 02/05/2022 etodolac 400 MG tablet 04/18/2022 fluticasone 110 MCG/ACT inhaler Inhale 2 puffs into the lungs 2 (two) times daily. 03/31/2019 02/05/2022 folic acid 1 MG tablet Take 1 [...] A DAY 180 tablet 1 09/09/2020 11/12/2022 PARoxetine 20 MG tabletIndications :Anxiety state Take 1 tablet (20 mg total) by mouth daily. 90 tablet 1 07/25/2021 01/23/2022 potassium chloride CR 20 MEQ tablet TAKE 2 TABLETS EVERY MORNING AND 2 TABLETS EVERY EVENING 01/04/2020 06/09/2024 sucralfate 1 G tabletIndications :GERD without esophagitis Take 1 tablet (1 g total) by mouth 4 (four) times daily before meals and nightly. 40 tablet 10/25/2021 05/04/2022 documented as of this encounter ED Notes * Amelie Jefferson MD - 01/09/2022 11:10 PM CDT ED NOTE Chief Complaint Chief Complaint Patient presents with ??? Stemi Alert History of Present Illness 71y F here with c/o chest pain. Symptoms started prior to arrival. Pain is left sided. Described assharp. Pain worse with breathing and certain movements. Has associated cough. No fevers or chills. Medical History ALLERGIES: Allergies Allergen Reactions ??? Latex Rash ??? Sulfa Antibiotics Swelling ??? Levofloxacin Headache and Nausea Only ??? Nitrofurantoin Headache MEDICATIONS: Prior to Admission medications Medication Sig Start Date End Date Taking? Authorizing Provider albuterol sulfate HFA (VENTOLIN HFA) 108 (90 Base) MCG/ACT inhaler Inhale 2 puffs into the lungs every 4 (four) hours as needed for Wheezing. 11/29/20 Gabriel Persaud MD apixaban (ELIQUIS) 5 MG tablet TAKE 1 TABLET BY MOUTH TWICE A DAY 03/07/20 Doc Abstract atorvastatin 80 MG tablet TAKE 1 TABLET BY MOUTH EVERY DAY 05/26/19 Doc Abstract B-D 3CC LUER-KAILASH SYR 22GX1 22G X 1 3 ML Misc USE ONCE A MONTH DIRECTED WITH METHOTREXATE 11/25/19 Doc Abstract bisoprolol 5 MG tablet TAKE 1 TABLET BY MOUTH EVERY DAY 03/22/20 Doc Abstract calcium carbonate 600 MG tablet Take by mouth daily. Doc Abstract calcium carbonate-vitamin D (OSCAL 500/200 D-3) 500-200 MG-UNIT Tab Take by mouth daily. Doc Abstract Cholecalciferol (VITAMIN D3) 50 MCG (2000 UT) Cap take 1 by Oral route every day 11/30/14 Doc Abstract etodolac 400 MG tablet Doc Abstract fluticasone 110 MCG/ACT inhaler Inhale 2 puffs into the lungs 2 (two) times daily. 03/31/19 Doc Abstract folic acid 1 MG tablet Take 1 mg by mouth daily. 05/14/18 Doc Abstract furosemide 20 MG tablet TAKE 1 TABLET BY MOUTH EVERY DAY 06/16/19 Doc Abstract hydroxychloroquine 200 MG tablet Take 200 mg by mouth 2 (two) times daily. 05/14/18 Doc Abstract methotrexate 2.5 MG tablet 08/17/21 Doc Abstract montelukast 10 MG tablet TAKE 1 TABLET BY MOUTH EVERY DAY EVERY NIGHT 02/16/20 Doc Abstract nitroglycerin 0.4 MG SL tablet May repeat dose every 5 minutes for up to 3 doses total. 05/23/18 DocAbstract PANTOPRAZOLE EC 40 MG tablet TAKE 1 TABLET BY MOUTH TWICE A DAY 09/09/20 Gabriel Persaud MD PARoxetine 20 MG tablet Take 1 tablet (20 mg total) by mouth daily. 07/25/21 Siena Johnson MD potassium chloride CR 20 MEQ tablet TAKE 2 TABLETS EVERY MORNING AND 2 TABLETS EVERY EVENING 01/04/20Doc Abstract sucralfate 1 G tablet Take 1 tablet (1 g total) by mouth 4 (four) times daily before meals and nightly. 10/25/21 Thi Lugo MD vitamin C 1000 MG tablet Take 1,000 mg by mouth daily. Doc Abstract PAST MEDICAL HISTORY: Past Medical History: Diagnosis Date ??? Anxiety ??? Arthritis ??? Asthma ??? Hypertension ??? Lupus (CMS/HCC) ??? Sleep apnea ??? Stroke (CMS/HCC) PAST SURGICAL HISTORY: Past Surgical History: Procedure Laterality Date ??? APPENDECTOMY ??? SECTION ??? HC TRIGGER FINGER RELEASE ??? HYSTERECTOMY FAMILY HISTORY: Family History Problem Relation Name [...] Systems Constitutional: Negative for chills and fever. Cardiovascular: Positive for chest pain. All other systems reviewed and are negative. Physical Exam Filed Vitals: 01/10/22 0150 01/10/22 0155 01/10/22 0200 01/10/22 0202 BP: Pulse: 80 77 80 78 Resp: 21 20 13 13 Temp: TempSrc: SpO2: 93% 93% 95% 95% Weight: Height: Physical Exam Vitals and nursing note reviewed. Constitutional: General: She is not in acute distress. HENT: Head: Normocephalic. Nose: No congestion. Mouth/Throat: Mouth: Mucous membranes are moist. Eyes: Conjunctiva/sclera: Conjunctivae normal. Cardiovascular: Rate and Rhythm: Normal rate and regular rhythm. Heart sounds: Normal heart sounds. Pulmonary: Effort: Pulmonary effort is normal. Breath sounds: Normal breath sounds. Chest: Chest wall: Tenderness present. Abdominal: Palpations: Abdomen is soft. Tenderness: There is no abdominal tenderness. Musculoskeletal: General: No swelling. Cervical back: Neck supple. Skin: General: Skin is warm and dry. Neurological: Mental Status: She is alert. Psychiatric: Mood and Affect: Mood normal. Diagnostic Studies / Procedures ELECTROCARDIOGRAMS: Results for orders placed or performed during the hospital encounter of 01/09/[address] 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: : 1950 Requested By: AMELIE JEFFERSON Order Number: [id number] Reading MD: Measurements Intervals [place] Rate: 81 P: 41 NM: 204 QRS: -30 QRSD: 102 T: 45 QT: 376 QTc: 439 Interpretive Statements SINUS RHYTHM BORDERLINE LEFT AXIS DEVIATION [QRS AXIS < -20] INCOMPLETE RIGHT BUNDLE BRANCH BLOCK [90+ ms QRS DURATION, TERMINAL R IN V1/V2, 40+ ms S IN I/aVL/V4/V5/V6] No previous ECG available for comparison LABORATORY STUDIES: Results for orders placed or performed during the hospital encounter of 01/09/22 CBC W/DIFF AUTOMATED Result Value Ref Range WBC 8.6 4.4 - 11.0 x10'3/uL RBC 4.31 (L) 4.50 - 5.10 x10'6/uL HGB 12.8 12.3 - 15.3 G/DL HCT 39.8 35.9 - 44.6 % MCV 92.3 80.0 - 96.0 FL MCH 29.7 25.3 - 30.9 PG MCHC 32.2 31.0 - 34.1 G/DL RDW 14.4 12.4 - 15.1 % PLT 230 151 - 353 x10'3/uL MPV 9.8 9.6 - 12.0 FL RBC MORPHOLOGY NORMAL PLT MORPH. NORMAL WBC MORPHOLOGY NORMAL LYMPHOCYTES 20.4 15.8 - 45.0 % NEUTROPHILS 60.9 42.1 - 71.9 % MONOCYTES 13.6 (H) 5.7 - 12.5 % EOSINOPHILS 4.1 0.0 - 5.6 % BASOPHILS 0.8 0.0 - 1.3 % ABS. NEUTROPHILS 5.22 1.40 - 6.00 x10'3/uL IMMATURE GRANS 0.2 0.0 - 0.5 % ABS. LYMPHOCYTES 1.75 0.80 - 4.70 x10'3/uL COMPREHENSIVE METABOLIC PANEL Result Value Ref Range GLUCOSE 110 (H) 70 - 99 MG/DL BUN 16 7 - 18 MG/DL CREATININE S/P/B 0.69 0.55 - 1.02 MG/DL SODIUM 141 136 - 145 MMOL/L POTASSIUM 4.6 3.5 - 5.1 MMOL/L CHLORIDE S/P/B 102 100 - 108 MMOL/L CO2 31.3 21 - 32 MMOL/L CALCIUM 8.9 8.5 - 10.1 MG/DL BILIRUBIN TOTAL S/P/B 0.4 0.2 - 1.2 MG/DL TOTAL PROTEIN S/P/B 7.3 6.4 - 8.2 G/DL ALBUMIN S/P/B 3.4 3.4 - 5.0 G/DL AST 34 15 - 37 U/L ALT 34 14 - 55 U/L ALKALINE PHOSPHATASE S/P/B 106 50 - 136 U/L ANION GAP 7.7 5 - 15 MMOL/L BUN CREATININE RATIO 23.2 6 - 26 A/G RATIO 0.9 (L) 1.0 - 2.0 RATIO GFR ESTIMATE >90 >90 ML/MIN/1.73 M2 TROPONIN, QUANT Result Value Ref Range TROPONIN I HIGH SENSITIVITY 6 <51 ng/L TROPONIN, QUANT Result Value Ref Range TROPONIN I HIGH SENSITIVITY 7 <51 ng/L CORONAVIRUS (COVID-19) ANTIGEN [RAPID IN HOUSE TEST] Specimen: NASAL Result Value Ref Range CORONAVIRUS ANTIGEN IA NEGATIVE NEGATIVE Specimen Type NASAL FIRST TEST UNKNOWN EMPLOYED IN HEALTHCARE NO SYMPTOMATIC DEFINED BY CDC UNKNOWN HOSPITALIZATION STATUS NO [facility] NO IMAGING STUDIES XR CHEST PORTABLE (Results Pending) ED Course / Medical Decision Making Atypical pain, worse with movement and breathing. Serial trops negative. Pt anticoagulated, PE verylow likelihood. Pain has improved. Will plan for outpt f/u. Return precautions discussed. Medications morphine injection 2 mg (2 mg Intravenous Given 01/09/222217) albuterol sulfate HFA 108 (90 Base) MCG/ACT inhaler 4 puff (4 puffs Inhalation Given 01/09/22 2323) Clinical Impression Chest pain, unspecified type (Primary) Discharge Medication List as of 01/10/2022 2:04 AM Disposition: Discharge Follow-[place]: [place] [address] [address] [place], [place] [id number] Schedule an appointment as soon as possible for a visit AMELIE JEFFERSON MD 01/10/2022 Amelie Jefferson MD 01/10/22 0533 * Quintin Alejandra RN - 01/09/2022 10:47 PM CDT * Quintin Alejandra RN - 01/09/2022 10:02 PM CDT Pt to ER with a C/O CP sudden onset of chest pain after shopping. More than an hour ago. documented in this encounter Plan of Treatment Upcoming Encounters Date Type Department Care Team (Late st Contact Info) Description 10/02/2024 11:40 AM MELTER HELPER Office Visit [facility] Multispecialty Care - [facility] [address] [place] [phone] Johnnie Lr MD [address] [place] [address] 01/04/2025 9:50 AM CDT Office Visit [facility] Family Medicine - [place] [address] [place] [id number] Emily Jordan MD [address] [place] [address] documented as of this encounter Procedures Procedure Name Priority Date/Time Associated Diagnosis Comments CORONAVIRUS (COVID-19) ANTIGEN DIRECT OPTICAL STAT 01/10/2022 1:14 AM CDT TROPONIN, QUANT STAT 01/10/2022 12:10 AM CDT COMPREHENSIVE METABOLIC PANEL STAT 01/09/2022 10:15 PM CDT CBC W/DIFF AUTOMATED STAT 01/09/2022 10:15 PM CDT TROPONIN, QUANT STAT 01/09/2022 10:15 PM CDT XR CHEST PORTABLE STAT 01/09/2022 9:5 6 PM CDT ECG 12-LEAD Routine 01/09/2022 9:50 PM CDT documented in this encounter Results * CORONAVIRUS (COVID-19) ANTIGEN [RAPID IN HOUSE TEST] (01/10/2022 1:14 AM CDT) Pathologist [facility] CORONAVIRUS ANTIGEN IA NEGATIVE NEGATIVE 01/10/2022 1:33 AM CDT [facility] Comment: NEGATIVE RESULTS DO NOT [...] USE BY AUTHORIZED LABORATORIES. SPECIMEN TYPE NASAL 01/10/2022 1:08 AM CDT [facility] FIRST TEST UNKNOWN 01/10/2022 1:08 AM CDT [facility] EMPLOYED IN HEALTHCARE NO 01/10/2022 1:08 AM CDT [facility] SYMPTOMATIC DEFINED BY CDC UNKNOWN 01/10/2022 1:08 AM CDT [facility] HOSPITALIZATION STATUS NO 01/10/2022 1:08 AM CDT [facility] RESIDENT OF [facility] NO 01/10/2022 1:08 AM CDT [facility] Specimen from nose (specimen) NASAL STRUCTURE / Unknown 01/10/2022 1:14 AM CDT us Amelie Jefferson MD [facility] Final Result Performing Organization Address [facility]/ZIP Co de Phone Number [facility] [address] [place] [address], [place] [phone] * TROPONIN, QUANT (01/10/2022 12:10 AM CDT) TROPONIN I HIGH SENSITIVITY 7 <51 ng/L 01/10/2022 12:50 AM CDT [facility] Comment: HIGH DOSES OF BIOTIN, TROPONIN-SPECIFIC AUTOANTIBODIES, AND ANTIBODY THERAPY CONTAINING HAMA MAY INTERFERE WITH THIS TEST RESULT. CORRELATION TO CLINICAL HISTORY AND PRESENTATION RECOMMENDED. 01/10/2022 12:1 0 AM CDT us Amelie Jefferson MD LABORATORY Final Resul t Performing Organization Address [facility]/ZIP Co de Phone Number [facility] [address] [place] [address], [place] [phone] * TROPONIN, QUANT (01/09/2022 10:15 PM CDT) TROPONIN I HIGH SENSITIVITY 6 <51 ng/L 01/09/2022 10:49 PM CDT [facility] Comment: HIGH DOSES OF BIOTIN, TROPONIN-SPECIFIC AUTOANTIBODIES, AND ANTIBODY THERAPY CONTAINING HAMA MAY INTERFERE WITH THIS TEST RESULT. CORRELATION TO CLINICAL HISTORY AND PRESENTATION RECOMMENDED. 01/09/2022 10:1 5 PM CDT us Amelie Jefferson MD LABORATORY Final Resul t [facility] [address] [place] [address], [place] [phone] * (ABNORMAL) COMPREHENSIVE METABOLIC PANEL (01/09/2022 10:15 PM CDT) [facility] GLUCOSE 110(H) 70 - 99 MG/DL 01/09/2022 10:45 PM CDT [facility] BUN 16 7 - 18 MG/DL 01/09/2022 10:45 PM CDT [facility] CREATININE S/P/B 0.69 0.55 - 1.02 MG/DL 01/09/2022 10:45 PM CDT [facility] SODIUM S/P/B 141 136 - 145 MMOL/L 01/09/2022 10:45 PM CDT [facility] POTASSIUM S/P/B 4.6 3.5 - 5.1 MMOL/L 01/09/2022 10:45 PM CDT [facility] CHLORIDE S/P/B 102 100 - 108 MMOL/L 01/09/2022 10:45 PM CDT [facility] CO2 31.3 21 - 32 MMOL/L 01/09/2022 10:45 PM CDT [facility] CALCIUM S/P/B 8.9 8.5 - 10.1 MG/DL 01/09/2022 10:45 PM CDT [facility] BILIRUBIN TOTAL S/P/B 0.4 0.2 - 1.2 MG/DL 01/09/2022 10:45 PM CDT [facility] TOTAL PROTEIN S/P/B 7.3 6.4 - 8.2 G/DL 01/09/2022 10:45 PM CDT [facility] ALBUMIN S/P/B 3.4 3.4 - 5.0 G/DL 01/09/2022 10:45 PM CDT [facility] AST 34 15 - 37 U/L 01/09/2022 10:45 PM CDT [facility] ALT 34 14 - 55 U/L 01/09/2022 10:45 PM CDT [facility] ALKALINE PHOSPHATASE S/P/B 106 50 - 136 U/L 01/09/2022 10:45 PM CDT [facility] ANION GAP 7.7 5 - 15 MMOL/L 01/09/2022 10:45 PM CDT [facility] BUN CREATININE RATIO 23.2 6 - 26 01/09/2022 10:45 PM CDT [facility] A/G RATIO 0.9(L) 1.0 - 2.0 RATIO 01/09/2022 10:45 PM CDT [facility] GFR ESTIMATE >90 >90 ML/MIN/1.7 3 M2 01/09/2022 10:45 PM CDT [facility] Comment: NOTE: eGFR is not calculated for patients <18 years of age. This is an estimated GFR calculation using the new CKD EPI creatinine equation without race and so does not require a correction factor for race. This estimated GFR should not be used for calculating drug doses. 01/09/2022 10:1 5 PM CDT us Amelie Jefferson MD LABORATORY Final Resul t [facility] [address] [place] [address], [place] [phone] * (ABNORMAL) CBC W/DIFF AUTOMATED (01/09/2022 10:15 PM CDT) WBC 8.6 4.4 - 11.0 x10'3/uL 01/09/2022 10:23 PM CDT [facility] RBC 4.31(L) 4.50 - 5.10 x10'6/uL 01/09/2022 10:23 PM T [facility] HGB 12.8 12.3 - 15.3 G/DL 01/09/2022 10:23 PM T [facility] HCT 39.8 35.9 - 44.6 % 01/09/2022 10:23 PM CDT [facility] MCV 92.3 80.0 - 96.0 FL 01/09/2022 10:23 PM T [facility] MCH 29.7 25.3 - 30.9 PG 01/09/2022 10:23 PM T [facility] MCHC 32.2 31.0 - 34.1 G/DL 01/09/2022 10:23 PM T [facility] RDW 14.4 12.4 - 15.1 % 01/09/2022 10:23 PM T [facility] PLT 230 151 - 353 x10'3/uL 01/09/2022 10:23 PM T [facility] MPV 9.8 9.6 - 12.0 FL 01/09/2022 10:23 PM T [facility] RBC MORPHOLOGY NORMAL 01/09/2022 10:23 PM T [facility] PLT MORPH. NORMAL 01/09/2022 10:23 PM T [facility] WBC MORPHOLOGY NORMAL 01/09/2022 10:23 PM T [facility] LYMPHOCYTES % 20.4 15.8 - 45.0 % 01/09/2022 10:23 PM T [facility] NEUTROPHILS % 60.9 42.1 - 71.9 % 01/09/2022 10:23 PM CDT [facility] MONOCYTES % 13.6(H) 5.7 - 12.5 % 01/09/2022 10:23 PM CDT [facility] EOSINOPHILS 4.1 0.0 - 5.6 % 01/09/2022 10:23 PM CDT [facility] BASOPHILS 0.8 0.0 - 1.3 % 01/09/2022 10:23 PM CDT [facility] ABS. NEUTROPHILS 5.22 1.40 - 6.00 x10'3/uL 01/09/2022 10:23 PM CDT [facility] IMMATURE GRANS % 0.2 0.0 - 0.5 % 01/09/2022 10:23 PM CDT [facility] ABS. LYMPHOCYTES 1.75 0.80 - 4.70 x10'3/uL 01/09/2022 10:23 PM CDT [facility] 01/09/2022 10:1 5 PM CDT us Amelie Jefferson MD LABORATORY Final Resul t [facility] [address] [place] [address], * XR CHEST PORTABLE (01/09/2022 9:56 PM CDT) Anatomical Region Laterality Modality Chest Radiographic Ashley ging 01/10/2022 7:42 AM CDT Impressions 01/10/2022 8:17 AM CDT IMPRESSION: Normal heart size and pulmonary vascularity without pneumothorax, active pulmonary infiltrates, or pleural fluid collections identified. Atherosclerotic aorta. Mild left convex thoracic scoliosis. Interval resolution of increased density at medial right upper lobe since 09/20/2021. Ordered By: AMELIE JEFFERSON Interpreted By: Ayad Silvestre, 01/10/2022 7:42 AM Narrative 01/10/2022 8:17 AM CDT EXAMINATION: XR CHEST PORTABLE EXAM DATE/TIME: 01/09/2022 9:45 PM CLINICAL HISTORY: Chest pain. COMPARISON: 09/20/2021 chest x-ray. 09/21/2021 CT chest. Procedure Note Ayad Silvestre MD - 01/10/2022 EXAMINATION: XR CHEST PORTABLE EXAM DATE/TIME: 01/09/2022 9:45 PM CLINICAL HISTORY: Chest pain. COMPARISON: 09/20/2021 chest x-ray. 09/21/2021 CT chest. IMPRESSION: Normal heart size and pulmonary vascularity withoutpneumothorax, active pulmonary infiltrates, or pleural fluid collectionsidentified. Atherosclerotic aorta. Mild left convex thoracic scoliosis. Interval resolution of increaseddensity at medial right upper lobe since 09/20/2021. Ordered By: AMELIE JEFFERSON Interpreted By: Ayad Silvestre, 01/10/2022 7:42 AM us Amelie Jefferson MD GENERAL IMAGING Final Resul t * ECG 12 lead (01/09/2022 9:50 PM CDT) 01/09/2022 9:50 PM CDT Narrative [facility] RAD - 01/10/2022 7:43 AM CDT ?[facility] ? Test Date: ?2022-01-09 Pat Name: ? MIRELLA ORANTES ?Department: ?? 85 ? Room: ? TRA2 TR2 Gender: ? Female ? Outside Sales Account Executive: ?? : ?1950 ? Requested By: AMELIE JEFFERSON Order Number: [id number] ? Reading MD: ?? Dax Johnson ? Measurements Intervals ?[place] ? Rate: ? 81 ? P: ?41 NM: ? 204 ?QRS: ?-30 QRSD: ? 102 ?T: ?45 QT: ? 376 ? QTc: ?439 ? Interpretive Statements SINUS RHYTHM BORDERLINE LEFT AXIS DEVIATION INCOMPLETE RIGHT BUNDLE BRANCH BLOCK No previous ECG available for comparison Procedure Note Dax Johnson MD - 01/10/2022 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: : 1950 Requested By: AMELIE JEFFERSON Order Number: [id number] Reading MD: Dax Johnson Measurements Intervals [place] Rate: 81 P: 41 NM: 204 QRS: -30 QRSD: 102 T: 45 QT: 376 QTc: 439 Interpretive Statements SINUS RHYTHM BORDERLINE LEFT AXIS DEVIATION INCOMPLETE RIGHT BUNDLE BRANCH BLOCK No previous ECG available for comparison us Amelie Jefferson MD ECG ORDERABLES Final Resul t [facility] ([facility] RAD documented in this encounter Visit Diagnoses Diagnosis Chest pain, unspecified type- Primary documented in this encounter Administered Medications Inactive Administered Medications - up to 3 most recent administrations Medication Order MAR Action Action Date Dose Rate Site albuterol sulfate HFA 108 (90 Base) MCG/ACT inhaler 4 puff 4 puff, Inhalation, Once, 1 dose, On Sat01/09/22 at 2315 Given 01/09/2022 11:23 PM CDT 4 puffs morphine injection 2 mg 2 mg, Intravenous, Once, 1 dose, On Sat01/09/22 at 2200 Given 01/09/2022 10:18 PM CDT 2 mg documented in this encounter Active and Recently Administered Medications Times are shown in CDT. Scheduled Medication Order 01/08/2022 01/09/2022 01/10/2022 albuterol sulfate HFA 108 (90 Base) MCG/ACT inhaler 4 puff (COMPLETED) 4 puff, Inhalation, Once, 1 dose, On Sat01/09/22 at 2315 2323 (Given - Provider: Saida Garcia, RN) morphine injection 2 mg (COMPLETED) 2 mg, Intravenous, Once, 1 dose, On Sat01/09/22 at 2200 2218 (Given - Provider: Froylan Alejandra, ROZINA) documented in this encounter Additional Health Concerns Infection Onset Date Last Indicated Resolved Time COVID-19 Rule Out 01/10/2022 01/10/2022 01/10/2022 1:34 AM CDT Assessment Noted Time PHQ-9 Depression Total Score: 13 022 9:37 AM MELTER HELPER documented as of this encounter Care Teams Process Safety Management Engineer Relationship Specialty [place] [address] [facility] [place] [address] PCP - General FAMILY PRACTICE 09/29/21 06/08/24 [place] [address] [facility]. [address] [address] RHEUMATOLOGY 09/27/20 documented as of this encounter
--- OUTSIDE RECORDS SUMMARY | 2024-08-29 09:59 | XMS_ITS | Encounter Summary ---
Author Organization [facility] Address [address] [place] [address]. [place], [place] [address] [place] [address] Care Team Providers Care Marine Pipefitter Name Role Phone Gladis Song MD Unavailable Thi Lugo MD Primary Care Provider [phone] Reason for Visit * Reason Comments Follow Up Weakness, x-ray resu lts. Encounter Details Date Type Department Care Team (Late st Contact Info) Description 10/10/2021 11:00 AM PAPER BAG INSPECTOR Office Visit [facility] Family & Internal Medicine [address] [address] Thi Lugo MD [address] [place] [address] [place] [address] Follow Up (Weakness, x-ray results.) Social History Tobacco Use Types Packs/Day Years [...] on file Legal Sex Female 10:22 PM PAPER BAG INSPECTOR Gender Identity Female 09/12/2021 9:51 AM PAPER BAG INSPECTOR Sexual Orientation Straight 09/12/2021 9: 51 AM PAPER BAG INSPECTOR COVID-19 Exposure Response Date Recorded In the last 10 days, have yo u been in contact with someone who was confirmed or suspected to have Coronavirus/COVID-19? No / Unsure 10/10/2021 10:51 AM PAPER BAG INSPECTOR documented as of this encounter Last Filed Vital Signs Vital Sign Reading Time Taken Comments Blood Pressure 106/60 10/10/2021 11:18 AM PAPER BAG INSPECTOR Pulse 70 10/10/2021 11:18 AM PAPER BAG INSPECTOR Temperature 36.9 ??C (98.5 ??F) 10/10/2021 11:[address] Respiratory Rate 20 10/10/2021 11:18 AM PAPER BAG INSPECTOR Oxygen Saturation 96% 10/10/2021 11:18 AM PAPER BAG INSPECTOR Inhaled Oxygen Concentration - - Weight 68.8 kg (151 lb 9.6 oz) 10/10/2021 11:18 AM PAPER BAG INSPECTOR Height 152.4 cm (5') 10/10/2021 11:18 AM PAPER BAG INSPECTOR Body Mass Index 29.61 10/10/2021 11:18 AM PAPER BAG INSPECTOR documented in this encounter Patient Instructions * Patient Instructions* Thi Lugo MD - 10/10/2021 11:00 AM PAPER BAG INSPECTOR Follow up with your Feather Trimmer soon. Check BP daily everyday, and maintain log. Please bring BP log and home machine at follow up appointment. Please take 1 tablets of extra strength tylenol as needed. R BAG INSPECTOR R BAG INSPECTOR R BAG INSPECTOR documented in this encounter Progress Notes * Thi Lugo MD - 10/10/2021 11:00 AM CST Reason for Visit: Follow Up (Weakness, x-ray results.) History of Present Illness: HPI Miss Chio Orantes??is a pleasant 70-year-old female with complex past and current medical history but not limited to asthma, CVA, hypertension, A. fib on Eliquis, heart failure preserved ejection fraction, on methotrexate for SLE,??restless legs and hypertension was seen today in office for ongoing weakness. Patient tested positive for Covid on 09/08/2020. Had recent CBC and CMP and as well. Due to abnormal x-ray CT scan was ordered that showed mild scattered interstitial fibrosis and several pulmonary nodules. 6-month follow-up CT is ordered. Today, she continues to have fatigue. Her legs and arms feel weak. She has shpulder pain sometimes too. Right sided facial pain as well. She cuould not even touch it last week. No fever. Her nausea has resolved. Continues to have some cough spells. Its dry. She states her neuropathy is worse. Numbness in bolth legs. She sees Rheum 3months, fu in october. Her methortrexate was stopped during her COVId. Specialists: 1. She sees instructional specialist every 6 months or as needed. Hx of Ministroke. They advise eliquis. 2. Feather Trimmer 3.Hx of seeing neurologist- does not recommend eliquis. No other concerns for today. ROS: Review of Systems negative except documented in HPI. Medications: Current Outpatient Medications: ??? albuterol sulfate [...] (two) times daily., Disp: , Rfl: ??? montelukast 10 [...] injection, , Disp: 3 each, Rfl: ??? AZELASTINE 0.1 % nasal spray, [...] FOR 90 DAYS, Disp: , Rfl: ??? calcium carbonate-vitamin D (OSCAL 500/200 D-3) 500-200 MG-UNIT Tab, Take by mouth daily., Disp: , Rfl: ??? methotrexate 2.5 MG tablet, , Disp: , Rfl: Allergies [...] Status ??? Mother ??? Father Physical Exam HENT: Head: Normocephalic and atraumatic. Nose: Nose normal. Eyes: Extraocular Movements: Extraocular movements intact. Conjunctiva/sclera: [...] No edema. Neurological: Mental Status: She is alert and oriented to person, place, and time. Psychiatric: Mood and Affect: Mood normal. Behavior: Behavior normal. Thought Content: Thought content normal. Judgment: Judgment normal. Filed Vitals: 10/10/21 1118 BP: 106/60 Pulse: 70 Resp: 20 Temp: 98.5 ??F (36.9 ??C) TempSrc: Oral SpO2: 96% Weight: 68.8 kg (151 lb 9.6 oz) Height: 5' (1.524 m) Diagnoses/Impression: 1. Post-COVID syndrome 2. Hypotension due to drugs 3. Fatigue, unspecified type QUANTIFERON - TB GOLD PLUS, 1T VENIPUNC ARM DRAW CANCELED: QUANTIFERON-TB GOLD PLUS, 4T 4. Multiple pulmonary nodules QUANTIFERON - TB GOLD PLUS, 1T VENIPUNC ARM DRAW CANCELED: QUANTIFERON-TB GOLD PLUS, 4T Recommendations and Plan: 1. Post-COVID syndrome This is the most likely cause of her fatigue. -Discussed how both COVID syndrome can last up to 8 weeks after illness sometimes. Continue to monitor. 2. Hypotension due to drugs Blood pressure low in clinic today. This might be contributing to her fatigue. -Advised to increase oral fluid intake. -Some dietary changes advised. -Check blood pressure daily and maintain log. 3. Fatigue, unspecified type 4. Multiple pulmonary nodules Reviewed results of recent CT chest with the patient. Will rule out TB due to family history. - QUANTIFERON - TB GOLD PLUS, 1T; Future Patient was advised to follow-up with her mechanical design engineer facilities soon as methotrexate was stopped when she had COVID. She voiced understanding and agrees with the plan. All questions answered. Follow-up in 2 weeks. Orders Placed This Encounter ??? VENIPUNC ARM DRAW ??? QUANTIFERON - TB GOLD PLUS, 1T Reviewed and updated this visit by provider: Thi Lugo MD Referring Provider: No ref. provider found PCP: Thi Lugo MD R BAG INSPECTOR documented in this encounter Plan of Treatment Upcoming Encounters Date Type Department Care Team (Late st Contact Info) Description 10/02/2024 11:40 AM PAPER BAG INSPECTOR Office Visit [facility] Multispecialty Care - [facility] [address] [facility] [place] [id number] Johnnie Lr MD [address] [facility] [address] [place] [address] 01/04/2025 9:50 AM CDT Office Visit [facility] Family Medicine - [place] [address] [place] [address] Emily Jordan MD [address] [place] [address] documented as of this encounter Procedures Procedure Name Priority Date/Time Associated Diagnosis Comments VENIPUNC ARM DRAW Routine 10/10/2021 11:58 AM PAPER BAG INSPECTOR Fatigue, unspecified type Multiple pulmonary nodules documented in this encounter Results * QUANTIFERON - TB GOLD PLUS, 1T (10/10/2021 11:49 AM PAPER BAG INSPECTOR) [facility] Signature QUANTIFERON-TB PLUS 1T NEGATIVE NEGATIVE 10/13/2021 11:00 AM PAPER BAG INSPECTOR [facility] Comment: Negative test result. M. tuberculosis complex infection unlikely. NIL (TB) 0.02 IU/mL 10/13/2021 11:00 AM PAPER BAG INSPECTOR [facility] MITOGEN NIL 5.54 IU/mL 10/13/2021 11:00 AM PAPER BAG INSPECTOR [facility] TB1 AG MINUS NIL 0.00 IU/mL 10/13/19 22 11:00 AM PAPER BAG INSPECTOR [facility] TB2 AG MINUS NIL 0.00 IU/mL 10/13/19 11:00 AM PAPER BAG INSPECTOR [facility] Comment: The Nil tube value reflects [...] T-lymphocytes. For additional information, please refer to http://education.[employer]/faq/PRX441 (This link is being provided for information/ educational purposes only.) Test Performed by [facility], QPD Carmen Hatch, [address] [place], [place] Dmitry Xavier M.D., Ph.D., Director of Laboratories , [place] [id number] 10/10/2021 11:4 9 AM PAPER BAG INSPECTOR Thi Lugo MD LABORATORY Final Result [facility] [address] [place], [place] , [place] [phone] documented in this encounter Visit Diagnoses Diagnosis Post-COVID syndrome- Primary Hypotension due to drugs Other iatrogenic hypotension Fatigue, unspecified type Multiple pulmonary nodules Other nonspecific abnormal finding of lung field documented in this encounter Additional Health Concerns Assessment Noted Time PHQ-9 Depression Total Score: 13 022 9:37 AM PAPER BAG INSPECTOR documented as of this encounter Care Teams Marine Pipefitter Relationship Specialty [place] [address] [facility]. [address] [place] [address] PCP - General FAMILY PRACTICE 09/29/21 06/08/24 [place] [address] [facility]. [address] [address] RHEUMATOLOGY 09/27/20 documented as of this encounter
--- OUTSIDE RECORDS SUMMARY | 2024-08-29 09:59 | XMS_ITS | Encounter Summary ---
Author Organization [facility] Address [address] [place] [address]. [place], [place] [address] [place] [address] Care Team Providers Care Labeling Machine Operator Name Role Phone Gladis Song MD Unavailable Thi Lugo MD Primary Care Provider [phone] Encounter Details Date Type Department Care Team (Latest Contact Info) Description 01/09/2022 Travel Social History Tobacco Use Types Packs/Day [...] on file Legal Sex Female 10:22 PM TRAFFIC SUPERINTENDENT Gender Identity Female 09/12/2021 9:51 AM TRAFFIC SUPERINTENDENT Sexual Orientation Straight 09/12/2021 9: 51 AM TRAFFIC SUPERINTENDENT COVID-19 Exposure Response Date Recorded In the last 10 days, have yo u been in contact with someone who was confirmed or suspected to have Coronavirus/COVID-19? No / Unsure 01/09/2022 9:33 PM CDT documented as of this encounter Plan of Treatment Upcoming Encounters Date Type Department Care Team (Late st Contact Info) Description 10/02/2024 11:40 AM TRAFFIC SUPERINTENDENT Office Visit [facility]ty Care - [facility] [address] [facility] [place] [address] Johnnie Lr MD [address] [facility] [address] [place] [address] 01/04/2025 9:50 AM CDT Office Visit [facility] Family Medicine - [place] [address] [facility] [address] [place] [address] Emily Jordan MD [address] [place] [address] documented as of this encounter Visit Diagnoses Not on filedocumented in this encounter Additional Health Concerns Assessment Noted Time PHQ-9 Depression Total Score: 13 022 9:37 AM TRAFFIC SUPERINTENDENT documented as of this encounter Care Teams Labeling Machine Operator Relationship Specialty [place] [address] [facility]. [address] [place] [address] PCP - General FAMILY PRACTICE 09/29/21 06/08/24 [place] [address] [facility] [place] [address] RHEUMATOLOGY 09/27/20 documented as of this encounter
--- OUTSIDE RECORDS SUMMARY | 2024-08-29 09:59 | XMS_ITS | Encounter Summary ---
Author Organization [facility] Address [address] [place] [address]. [place] [address] [place] [address] Care Team Providers Care Medical Claims Examiner Name Role Phone Gladis Song MD Unavailable Siena Johnson MD Primary Care Provider [phone] Encounter Details Date Type Department Care Team (Latest Contact Info) Description 09/11/2021 Scan HEALTH INFO SRVCS Scanned, Documents Social [...] on file Legal Sex Female 10:22 PM COMMUNITY AFFAIRS DIRECTOR Gender Identity Female 09/12/2021 9:51 AM COMMUNITY AFFAIRS DIRECTOR Sexual Orientation Straight 09/12/2021 9: 51 AM COMMUNITY AFFAIRS DIRECTOR COVID-19 Exposure Response Date Recorded In the last month, have you been in contact with someone who was confirmed or suspected to have Coronavirus / COVID-19? Unable to assess 09/08/2021 7:36 AM COMMUNITY AFFAIRS DIRECTOR documented as of this encounter Plan of Treatment Upcoming Encounters Date Type Department Care Team (Late st Contact Info) Description 10/02/2024 11:40 AM COMMUNITY AFFAIRS DIRECTOR Office Visit [facility] Multispecialty Care - [facility] [address] [place] [address] Johnnie Lr MD [address] [facility] [address] [facility] [address] [place] [address] 01/04/2025 9:50 AM CDT Office Visit [facility] Family Medicine - [place] [address] [place] [address] Emily Jordan MD [address] [place], [place] [address] documented as of this encounter Visit Diagnoses Not on filedocumented in this encounter Additional Health Concerns Infection Onset Date Last Indicated Resolved Time COVID-19 Confirmed 09/08/2021 09/08/2021 12:32 AM COMMUNITY AFFAIRS DIRECTOR documented as of this encounter Care Teams Medical Claims Examiner Relationship Specialty Start [place] [id number] [place] [address] PCP - General INTERNAL MEDICINE 05/15/21 09/28/21 [place] [address] [address] RHEUMATOLOGY 09/27/20 documented as of this encounter
--- OUTSIDE RECORDS SUMMARY | 2024-08-29 09:59 | XMS_ITS | Encounter Summary ---
Author Organization [facility] Address [address] [place] [address]. [place] [address] [place] [address] Care Team Providers Care Card Sorter Name Role Phone Gladis Song MD Unavailable Siena Hope MD Primary Care Provider Reason for Visit * Reason Onset Date Comments Question 09/19/2021 Encounter Details Date Type Department Care Team (Late st Contact Info) Description 09/19/2021 Telephone [facility] Family & Internal Medicine [facility] [address] [place] [address] [place] [id number] [place] [address] Question Social History Tobacco Use Types Packs/Day Years [...] file Legal Sex Female 10:22 PM MACHINE OPERATOR GENERAL Gender Identity Female 09/12/2021 9:51 AM MACHINE OPERATOR GENERAL Sexual Orientation Straight 09/12/2021 9: 51 AM MACHINE OPERATOR GENERAL COVID-19 Exposure Response Date Recorded In the last month, have you been in contact with someone who was confirmed or suspected to have Coronavirus / COVID-19? No / Unsure 09/20/2021 10:16 AM MACHINE OPERATOR GENERAL documented as of this encounter Progress Notes * Lottie Menjivar RN - 09/22/2021 4:01 PM CST Addressed by Dr. Wren. See most recent encounter. Abx sent. INE OPERATOR GENERAL * Dyana Owens MA - 09/21/2021 10:39 AM CST Printed for provider to review. INE OPERATOR GENERAL * Lottie Burton - 09/21/2021 10:29 AM CST Chio called states he had a an xray, Dr. Wren order a CT scan. Radiology called Chio can not gether in until 09/29/2021. Chio states she continues to shake and still not feeling well, breaks outin sweats, fever off an on. She is wondering if she needs to be started on antibiotic or what she can do. Pharmacy: [facility]. Please return call to Chio: [phone] INE OPERATOR GENERAL * Cristal Platt RN - 09/20/2021 9:25 AM CST Noted. INE OPERATOR GENERAL * Jaclyn Ziegler - 09/20/2021 9:10 AM CST Pt returned call read message v/u is coming up to get chest xray INE OPERATOR GENERAL * Cristal Platt RN - 09/20/2021 8:07 AM CST LMOM to call office. Per - CBC,CMP & chest xray Orders entered INE OPERATOR GENERAL INE OPERATOR GENERAL * Cristal Platt RN - 09/19/2021 10:52 AM CST Printed for to address since is out of office today. INE OPERATOR GENERAL * Serenity Rehman - 09/19/2021 10:30 AM CST Patient had a telavisit with Dr. Lugo on 09/08/21, she was tested that day for COVID and was positive. She had the infusion done on 09/11/21. She is calling as she still feels weak, tired and shaky. She also c/o headaches daily, head congestion. She just don't feel up to par, and does not know what is going on. INE OPERATOR GENERAL documented in this encounter Plan of Treatment Upcoming Encounters Date Type Department Care Team (Late st Contact Info) Description 10/02/2024 11:40 AM MACHINE OPERATOR GENERAL Office Visit [facility] Multispecialty Care - [facility] [address] [facility] [place] [address] Johnnie Lr MD [address] [facility] [address] [place] [address] 01/04/2025 9:50 AM CDT Office Visit [facility] Family Medicine - [place] [address] [facility] [address] [place] [address] Emily Jordan MD [address] [place] [address] documented as of this encounter Results * (ABNORMAL) COMPREHENSIVE METABOLIC PANEL (09/25/2021 7:58 AM MACHINE OPERATOR GENERAL) [facility] GLUCOSE 82 70 - 99 MG/DL 09/25/2021 8:24 AM [facility] BUN 22(H) 7 - 18 MG/DL 09/25/2021 8:24 AM [facility] CREATININE S/P/B 0.83 0.55 - 1.02 MG/DL 09/25/2021 8:24 AM [facility] SODIUM S/P/B 142 136 - 145 MMOL/L 09/25/2021 8:24 AM [facility] POTASSIUM S/P/B 3.8 3.5 - 5.1 MMOL/L 09/25/2021 8:24 AM [facility] CHLORIDE S/P/B 105 100 - 108 MMOL/L 09/25/2021 8:24 AM [facility] CO2 31.4 21 - 32 MMOL/L 09/25/2021 8:24 AM [facility] CALCIUM S/P/B 8.9 8.5 - 10.1 MG/DL 09/25/2021 8:24 AM [facility] BILIRUBIN TOTAL S/P/B 0.5 0.2 - 1.2 MG/DL 09/25/2021 8:24 AM [facility] TOTAL PROTEIN S/P/B 6.8 6.4 - 8.2 G/DL 09/25/2021 8:24 AM [facility] ALBUMIN S/P/B 3.4 3.4 - 5.0 G/DL 09/25/2021 8:24 AM [facility] AST 37 15 - 37 U/L 09/25/2021 8:24 AM [facility] ALT 35 14 - 55 U/L 09/25/2021 8:24 AM [facility] ALKALINE PHOSPHATASE S/P/B 109 50 - 136 U/L 09/25/2021 8:24 AM [facility] ANION GAP 5.6 5 - 15 MMOL/L 09/25/2021 8:24 AM [facility] BUN CREATININE RATIO 26.5(H) 6 - 26 09/25/2021 8:24 AM [facility] A/G RATIO 1.0 1.0 - 2.0 RATIO 09/25/2021 8:24 AM [facility] EGFR NON-AFR. AMER. 70(L) >90 ML/MIN/1.7 3 M2 09/25/2021 8:24 AM [facility] EGFR AFR. AMER. 82(L) >90 ML/MIN/1.7 3 M2 09/25/2021 8:24 AM [facility] Comment: NOTE: eGFR is not calculated for patients <18 years of age. This is an estimated GFR (CKD EPI) and should not be used for calculating drug doses. 09/25/2021 7:58 AM MACHINE OPERATOR GENERAL Siena Hope MD LABORATORY Final Result [facility] [address] [place] [address], [place] [phone] * (ABNORMAL) CBC W/DIFF AUTOMATED (09/25/2021 7:58 AM MACHINE OPERATOR GENERAL) WBC 6.4 4.4 - 11.0 x10'3/uL 09/25/2021 8:09 AM [facility] RBC 4.48(L) 4.50 - 5.10 x10'6/uL 09/25/2021 8:09 AM [facility] HGB 13.0 12.3 - 15.3 G/DL 09/25/2021 8:09 AM [facility] HCT 41.3 35.9 - 44.6 % 09/25/2021 8:09 AM [facility] MCV 92.2 80.0 - 96.0 FL 09/25/2021 8:09 AM [facility] MCH 29.0 25.3 - 30.9 PG 09/25/2021 8:09 AM [facility] MCHC 31.5 31.0 - 34.1 G/DL 09/25/2021 8:09 AM [facility] RDW 14.9 12.4 - 15.1 % 09/25/2021 8:09 AM [facility] PLT 311 151 - 353 x10'3/uL 09/25/2021 8:09 AM [facility] MPV 9.2(L) 9.6 - 12.0 FL 09/25/2021 8:09 AM [facility] RBC MORPHOLOGY NORMAL 09/25/2021 8:09 AM [facility] PLT MORPH. NORMAL 09/25/2021 8:09 AM [facility] WBC MORPHOLOGY NORMAL 09/25/2021 8:09 AM [facility] LYMPHOCYTES % 32.3 15.8 - 45.0 % 09/25/2021 8:09 AM [facility] NEUTROPHILS % 47.1 42.1 - 71.9 % 09/25/2021 8:09 AM [facility] MONOCYTES % 14.9(H) 5.7 - 12.5 % 09/25/2021 8:09 AM [facility] EOSINOPHILS 4.0 0.0 - 5.6 % 09/25/2021 8:09 AM [facility] BASOPHILS 1.4(H) 0.0 - 1.3 % 09/25/2021 8:09 AM [facility] ABS. NEUTROPHILS 3.02 1.40 - 6.00 x10'3/uL 09/25/2021 8:09 AM [facility] IMMATURE GRANS % 0.3 0.0 - 0.5 % 09/25/2021 8:09 AM [facility] ABS. LYMPHOCYTES 2.08 0.80 - 4.70 x10'3/uL 09/25/2021 8:09 AM [facility] 09/25/2021 7:58 AM MACHINE OPERATOR GENERAL us Siena Hope MD LABORATORY Final Result Performing Organization Address City/State/[facility] Co de Phone Number [facility] [address] [place] [address], * XR CHEST PA+LAT (09/20/2021 10:31 AM MACHINE OPERATOR GENERAL) Anatomical Region Laterality Modality Chest Radiographic Ashley ging 09/20/2021 10:3 8 AM MACHINE OPERATOR GENERAL Impressions 09/20/2021 10:48 AM MACHINE OPERATOR GENERAL IMPRESSION: Increased density medially at right upper lobe which may correspond to rounded density marked with arrow posteriorly on lateral view. While this may represent rounded pneumonia, possibility of more significant process such as malignancy cannot be excluded. Consider CT chest for further evaluation. Classical appearance of Covid19 pneumonia not identified. Left lung appears clear active disease. No apparent pneumothorax, pulmonary consolidation, or pleural fluid collections. Normal heart size and pulmonary vascularity. Atherosclerotic aorta. Degenerative and hypertrophic change in thoracic spine. Ordered By: SIENA HOPE Interpreted By: yAad Silvestre, 09/20/2021 10:38 AM Narrative 09/20/2021 10:48 AM MACHINE OPERATOR GENERAL EXAMINATION: XR CHEST PA+LAT 09/20/2021 HISTORY: Covid 19 infection diagnosed on 09/08/2021. Cough. COMPARISON: 08/30/2017 chest x-ray. Procedure Note Ayad Silvestre MD - 09/20/2021 EXAMINATION: XR CHEST PA+LAT 09/20/2021 HISTORY: Covid 19 infection diagnosed on 09/08/2021. Cough. COMPARISON: 08/30/2017 chest x-ray. IMPRESSION: Increased density medially at right upper lobe which maycorrespond to rounded density marked with arrow posteriorly on lateralview. While this may represent rounded pneumonia, possibility of moresignificant process such as malignancy cannot be excluded. Consider CTchest for further evaluation. Classical appearance of Covid19 pneumonia not identified. Left lungappears clear active disease. No apparent pneumothorax, pulmonaryconsolidation, or pleural fluid collections. Normal heart size and pulmonary vascularity. Atherosclerotic aorta.Degenerative and hypertrophic change in thoracic spine. Ordered By: SIENA HOPE Interpreted By: Ayad Silvestre, 09/20/2021 10:38 AM Siena Hope MD GENERAL IMAGING Final Result documented in this encounter Visit Diagnoses Diagnosis Lab test positive for detection of COVID-19 virus- Primary Lab test positive for detection of COVID-19 virus documented in this encounter Additional Health Concerns Infection Onset Date Last Indicated Resolved Time COVID-19 Confirmed 09/08/2021 09/08/2021 12:32 AM MACHINE OPERATOR GENERAL documented as of this encounter Care Teams Card Sorter Relationship Specialty [place] [address] [facility] [address] [place] [address] PCP - General INTERNAL MEDICINE 05/15/21 09/28/21 [place] [address] [place] [address] RHEUMATOLOGY 09/27/20 documented as of this encounter
--- OUTSIDE RECORDS SUMMARY | 2024-08-29 09:59 | XMS_ITS | Encounter Summary ---
Author Organization [facility] Address [address] [place] [address]. [place] [address] [place] [address] Care Team Providers Care Affiliate Marketing Specialist Name Role Phone Gladis Song MD Unavailable Siena Hope MD Primary Care Provider Reason for Referral * Imaging (Routine) - Closed Specialty Diagnoses / Procedures Referred By Contac t Referred To Contact RADIOLOGY Diagnoses Cough Lab test positive for detection of COVID-[address] [place] [address] [place] [address] Phone: tel: fax: Referral ID Status Reason Start Date Expiration Date Visits Re quested Visits Authorized [id number] Closed 09/26/2021 03/25/2022 1 1 NDER SANDER OPERATOR Encounter Details Date Type Department Care Team (Late st Contact Info) Description 09/20/2021 Orders Only [facility] Family & Internal Medicine [address] [address] Siena Hope MD [address] [place] [address] Social History Tobacco Use Types Packs/Day [...] on file Legal Sex Female 10:22 PM CYLINDER SANDER OPERATOR Gender Identity Female 09/12/2021 9:51 AM CYLINDER SANDER OPERATOR Sexual Orientation Straight 09/12/2021 9: 51 AM CYLINDER SANDER OPERATOR COVID-19 Exposure Response Date Recorded In the last month, have you been in contact with someone who was confirmed or suspected to have Coronavirus / COVID-19? No / Unsure 09/20/2021 10:16 AM CYLINDER SANDER OPERATOR documented as of this encounter Plan of Treatment Upcoming Encounters Date Type Department Care Team (Late st Contact Info) Description 10/02/2024 11:40 AM CYLINDER SANDER OPERATOR Office Visit [facility] Multispecialty Care - [facility] [address] [facility] [place] [address] Johnnie Lr MD [address] [facility] [address] [place] [address] 01/04/2025 9:50 AM CDT Office Visit [facility] Family Medicine - [place] [address] [place] [address] Emily Jordan MD [address] [place] [address] documented as of this encounter Results * CT CHEST WO CON (09/29/2021 11:17 AM CYLINDER SANDER OPERATOR) Anatomical Region Laterality Modality Chest Computed Tomogra phy 09/29/2021 12:3 0 PM CYLINDER SANDER OPERATOR Impressions 09/29/2021 12:48 PM CYLINDER SANDER OPERATOR IMPRESSION: 1. ??No infiltrate or effusion. No [...] 09/29/2021 12:30 PM Narrative 09/29/2021 12:48 PM CYLINDER SANDER OPERATOR IMAGING STUDIES: ??CT CHEST WO CON ? [...] documented in this encounter Visit Diagnoses Diagnosis Cough- Primary Lab test positive for detection of COVID-19 virus Cough Lab test positive for detection of COVID-19 virus documented in this encounter Additional Health Concerns Infection Onset Date Last Indicated Resolved Time COVID-19 Confirmed 09/08/2021 09/08/2021 12:32 AM CYLINDER SANDER OPERATOR documented as of this encounter Care Teams Affiliate Marketing Specialist Relationship Specialty [place] [id number] [address] PCP - General INTERNAL MEDICINE 05/15/21 09/28/21 [place] [id number] [address] RHEUMATOLOGY 09/27/20 documented as of this encounter
--- OUTSIDE RECORDS SUMMARY | 2024-08-29 09:59 | XMS_ITS | Encounter Summary ---
Author Organization [facility] Address [address] [place] [address]. [place] [address] [place] [address] Care Team Providers Care Director Social Name Role Phone Gladis Song MD Unavailable Siena Hope MD Primary Care Provider [phone] Encounter Details Date Type Department Care Team (Latest Contact Info) Description 09/20/2021 10:18 AM RADIOLOGICAL METALLURGIST - 09/20/2021 11:59 PM [facility] Hospital Encounter [facility] Diagnostic Imaging [address] [place], [place] [id number] [place] [address] [place] [address] Discharge Disposition: Home or Self [...] on file Legal Sex Female 10:22 PM RADIOLOGICAL METALLURGIST Gender Identity Female 09/12/2021 9:51 AM RADIOLOGICAL METALLURGIST Sexual Orientation Straight 09/12/2021 9: 51 AM RADIOLOGICAL METALLURGIST COVID-19 Exposure Response Date Recorded In the last month, have you been in contact with someone who was confirmed or suspected to have Coronavirus / COVID-19? No / Unsure 09/20/2021 10:16 AM RADIOLOGICAL METALLURGIST documented as of this encounter Medications at [...] unspecified SLE type, unspecified organ involvement status ([facility]) 3 each 02/07/2021 2 albuterol sulfate HFA [...] 30 DAYS 360 capsule 1 01/23/2021 2 etodolac 400 MG tablet 2 fluticasone [...] methotrexate 2.5 MG tablet 08/17/2021 4 Methscopolamine [place] 5 MG Tab Take 5 mg by [...] st Contact Info) Description 10/02/2024 11:40 AM RADIOLOGICAL METALLURGIST Office Visit [facility] Mult[facility]ialty Care - [facility] 3 [facility] [address] [place] [address] Johnnie Lr MD [address] [facility] [address] [place] [address] 01/04/2025 9:50 AM CDT Office Visit [facility] Family Medicine - [place] [address] [place] [address] Emily Jordan MD [address] [place] [address] documented as of this encounter Procedures Procedure Name Priority Date/Time Associated Diagnosis Comments XR CHEST PA+LAT Routine 09/20/2021 10:31 AM RADIOLOGICAL METALLURGIST Lab test positive for detection of COVID-19 virus documented in this encounter Results * XR CHEST PA+LAT (09/20/2021 10:31 AM RADIOLOGICAL METALLURGIST) Anatomical Region Laterality Modality Chest Radiographic Ashley ging 09/20/2021 10:3 8 AM RADIOLOGICAL METALLURGIST Impressions 09/20/2021 10:48 AM RADIOLOGICAL METALLURGIST IMPRESSION: Increased density medially at right upper [...] Interpreted By: Ayad Silvestre, 09/20/2021 10:38 AM Narrative 09/20/2021 10:48 AM RADIOLOGICAL METALLURGIST EXAMINATION: XR CHEST PA+LAT 09/20/2021 HISTORY: Covid [...] Time COVID-19 Confirmed 09/08/2021 09/08/2021 12:32 AM RADIOLOGICAL METALLURGIST documented as of this encounter Care Teams Director Social Relationship Specialty [place] [address] [facility]. [facility] [address] [place] [address] PCP - General INTERNAL MEDICINE 05/15/21 09/28/21 [place] [address] [place] [address] RHEUMATOLOGY 09/27/20 documented as of this encounter
--- OUTSIDE RECORDS SUMMARY | 2024-08-29 09:59 | XMS_ITS | Encounter Summary ---
Author Organization [facility] Address [address] [place] [address]. [place] [address] [place] [address] Care Team Providers Care Reporting Process Consultant Name Role Phone Gladis Song MD Unavailable Siena Johnson MD Primary Care Provider [phone] Encounter Details Date Type Department Care Team (Latest Contact Info) Description 09/25/2021 Travel Social History Tobacco Use Types Packs/Day [...] on file Legal Sex Female 10:22 PM CREATIVE WRITING TEACHER Gender Identity Female 09/12/2021 9:51 AM CREATIVE WRITING TEACHER Sexual Orientation Straight 09/12/2021 9: 51 AM CREATIVE WRITING TEACHER COVID-19 Exposure Response Date Recorded In the last month, have you been in contact with someone who was confirmed or suspected to have Coronavirus / COVID-19? No / Unsure 09/25/2021 7:40 AM CREATIVE WRITING TEACHER documented as of this encounter Plan of Treatment Upcoming Encounters Date Type Department Care Team (Late st Contact Info) Description 10/02/2024 11:40 AM CREATIVE WRITING TEACHER Office Visit [facility] Multispecialty Care - [facility] 3 [facility] [address] [place] [address] Johnnie Lr MD [address] [facility] [address] [place] [address] 01/04/2025 9:50 AM CDT Office Visit [facility] Family Medicine - [place] [address] [place] [address] Emily Jordan MD [address] [place] [address] documented as of this encounter Visit Diagnoses Not on filedocumented in this encounter Additional Health Concerns Infection Onset Date Last Indicated Resolved Time COVID-19 Confirmed 09/08/2021 09/08/2021 12:32 AM CREATIVE WRITING TEACHER documented as of this encounter Care Teams Reporting Process Consultant Relationship Specialty [place] [address] [address] PCP - General INTERNAL MEDICINE 05/15/21 09/28/21 [place] [address] [address] RHEUMATOLOGY 09/27/20 documented as of this encounter
--- OUTSIDE RECORDS SUMMARY | 2024-08-29 09:59 | XMS_ITS | Encounter Summary ---
Author Organization [facility] Address [address] [place] [address]. [place] [address] [place] [address] Care Team Providers Care Artist'S Model Name Role Phone Gladis Song MD Unavailable Siena Johnson MD Primary Care Provider Reason for Visit * Reason Onset Date Comments Medication 09/22/2021 Encounter Details Date Type Department Care Team (Late st Contact Info) Description 09/22/2021 Telephone [facility] Family & Internal Medicine [facility] [address] [place] [address] [place]ien[place] [id number] [place] [address] Medication Social History Tobacco Use Types Packs/Day Years [...] on file Legal Sex Female 10:22 PM RUBBER GOODS CUTTER FINISHER Gender Identity Female 09/12/2021 9:51 AM RUBBER GOODS CUTTER FINISHER Sexual Orientation Straight 09/12/2021 9: 51 AM RUBBER GOODS CUTTER FINISHER COVID-19 Exposure Response Date Recorded In the last month, have you been in contact with someone who was confirmed or suspected to have Coronavirus / COVID-19? No / Unsure 09/20/2021 10:16 AM RUBBER GOODS CUTTER FINISHER documented as of this encounter Progress Notes * Lottie Menjivar RN - 09/22/2021 3:59 PM CST Called and spoke with patient, informed her of below. She v/u. ER GOODS CUTTER FINISHER * Siena Johnson MD - 09/22/2021 3:18 PM CST ce ER GOODS CUTTER FINISHER documented in this encounter Plan of Treatment Upcoming Encounters Date Type Department Care Team (Late st Contact Info) Description 10/02/2024 11:40 AM RUBBER GOODS CUTTER FINISHER Office Visit [facility] Mult[facility]pecialty Care - [facility] [address] [facility] [place] [address] Johnnie Lr MD 3 [facility] [address] [place] [address] 01/04/2025 9:50 AM CDT Office Visit [facility] Family Medicine - [place] [address] [facility] [address] [place] [address] Emily Jordan MD [address] [place] [address] documented as of this encounter Visit Diagnoses Diagnosis Pneumonia due to COVID-19 virus- Primary documented in this encounter Additional Health Concerns Infection Onset Date Last Indicated Resolved Time COVID-19 Confirmed 09/08/2021 09/08/2021 12:32 AM RUBBER GOODS CUTTER FINISHER documented as of this encounter Care Teams Artist'S Model Relationship Specialty [place] [address] [facility]. [facility] [address] [place] [address] PCP - General INTERNAL MEDICINE 05/15/21 09/28/21 [place] [address] [facility]. [address] [address] RHEUMATOLOGY 09/27/20 documented as of this encounter
--- OUTSIDE RECORDS SUMMARY | 2024-08-29 09:59 | XMS_ITS | Encounter Summary ---
Author Organization [facility] Address [address] [place] [address]. [place], [place] [address] [place] [address] Care Team Providers Care Hot Stone Setter Name Role Phone Gladis Song MD Unavailable Thi Lugo MD Primary Care Provider [phone] Reason for Visit * Reason Comments Mammogram (SCAN) Encounter Details Date Type Department Care Team (Late Contact Info) Description 12/11/2021 Scan HEALTH INFO SRVCS Scanned, Documents Mammogram (SCAN) Social History Tobacco Use Types [...] on file Legal Sex Female 10:22 PM POWER SHOVEL MECHANIC Gender Identity Female 09/12/2021 9:51 AM POWER SHOVEL MECHANIC Sexual Orientation Straight 09/12/2021 9: 51 AM POWER SHOVEL MECHANIC documented as of this encounter Plan of Treatment Upcoming Encounters Date Type Department Care Team (Late Contact Info) Description 10/02/2024 11:40 AM POWER SHOVEL MECHANIC [facility] Multispecialty Care - [address] [place] [address] Johnnie Lr MD 3 [facility] [address] [place] [address] 01/04/2025 9:50 AM CDT Office Visit [facility] Family Medicine - [place] [address] [place] [address] Emily Jordan MD [address] [place] [address] documented as of this encounter Procedures Procedure Name Priority Date/Time Associated Diagnosis Comments MAMMOGRAM GENERIC (SCAN ORDER) 12/11/2021 documented in this encounter Results * MAMMOGRAM GENERIC (12/11/2021) Anatomical Region Laterality Modality Other 12/11/2021 Narrative 12/11/2021 Ordered by an unspecified provider. us Documents Scanned SCANNING Final Result documented in this encounter Visit Diagnoses Not on filedocumented in this encounter Additional Health Concerns Assessment Noted Time PHQ-9 Depression Total Score: 13 022 9:37 AM POWER SHOVEL MECHANIC documented as of this encounter Care Teams Hot Stone Setter Relationship Specialty [place] [address] [facility] [place] [address] PCP - General FAMILY PRACTICE 09/29/21 06/08/24 [place] [address] [facility] [address] [place] [address] RHEUMATOLOGY 09/27/20 documented as of this encounter
--- OUTSIDE RECORDS SUMMARY | 2024-08-29 09:59 | XMS_ITS | Encounter Summary ---
Author Organization [facility] Address [address] [place] [address]. [place], [place] [address] [place] [address] Care Team Providers Care Oracle Identity Management Consultant Name Role Phone Gladis Song MD Unavailable Thi Lugo MD Primary Care Provider [phone] Encounter Details Date Type Department Care Team (Late st Contact Info) Description 10/02/2021 Orders Only [facility] Family & Internal Medicine - [address] [address] Thi Lugo MD [address] [place] [address]. [address] [place] [address] Social History Tobacco Use Types Packs/Day [...] on file Legal Sex Female 10:22 PM PRINTED CIRCUIT BOARDS PLASMA ETCHER Gender Identity Female 09/12/2021 9:51 AM PRINTED CIRCUIT BOARDS PLASMA ETCHER Sexual Orientation Straight 09/12/2021 9: 51 AM PRINTED CIRCUIT BOARDS PLASMA ETCHER COVID-19 Exposure Response Date Recorded In the last month, have you been in contact with someone who was confirmed or suspected to have Coronavirus / COVID-19? No / Unsure 09/29/2021 9:29 AM PRINTED CIRCUIT BOARDS PLASMA ETCHER documented as of this encounter Plan of Treatment Upcoming Encounters Date Type Department Care Team (Late st Contact Info) Description 10/02/2024 11:40 AM PRINTED CIRCUIT BOARDS PLASMA ETCHER Office Visit [facility] Multispecialty Care - [facility] 3 [facility] [place] [address] Johnnie Lr MD 3 [facility] [address] [place] [address] 01/04/2025 9:50 AM CDT Office Visit [facility] Family Medicine - [place] [address] [place], [place] [address] Emily Jordan MD [address] [place] [address] documented as of this encounter Visit Diagnoses Not on filedocumented in this encounter Additional Health Concerns Infection Onset Date Last Indicated Resolved Time COVID-19 Confirmed 09/08/2021 09/08/2021 12:32 AM PRINTED CIRCUIT BOARDS PLASMA ETCHER Assessment Noted Time PHQ-9 Depression Total Score: 13 022 9:37 AM PRINTED CIRCUIT BOARDS PLASMA ETCHER documented as of this encounter Care Teams Oracle Identity Management Consultant Relationship Specialty [place] [address] [facility] [place] [address] PCP - General FAMILY PRACTICE 09/29/21 06/08/24 [place] [address] [facility]. [address] [place] [address] RHEUMATOLOGY 09/27/20 documented as of this encounter
--- OUTSIDE RECORDS SUMMARY | 2024-08-29 09:59 | XMS_ITS | Encounter Summary ---
Author Organization [facility] Address [address] [place] [address]. [place] [address] [place] [address] Care Team Providers Care Water Manager Name Role Phone Gladis Song MD Unavailable Thi Lugo MD Primary Care Provider [phone] Reason for Visit * Reason Onset Date Comments Concerns 10/03/2021 CT Scan Chest Encounter Details Date Type Department Care Team (Late st Contact Info) Description 10/03/2021 Telephone [facility] Family & Internal Medicine [address] [address] Thi Lugo MD [address] [place] [address]. [address] [place] [address] Concerns (CT Scan Chest) Social History Tobacco Use Types Packs/Day Years [...] on file Legal Sex Female 10:22 PM GRISTMILLER Gender Identity Female 09/12/2021 9:51 AM GRISTMILLER Sexual Orientation Straight 09/12/2021 9: 51 AM GRISTMILLER COVID-19 Exposure Response Date Recorded In the last month, have you been in contact with someone who was confirmed or suspected to have Coronavirus / COVID-19? No / Unsure 09/29/2021 9:29 AM GRISTMILLER documented as of this encounter Progress Notes * Cristal Platt RN - 10/06/2021 8:22 AM CST Spoke to Chio & appt changed to 10/10/21, will fax CT to Dr.Sona Song per pt request (f)[phone] TMILLER * Tih Lugo MD - 10/04/2021 5:34 AM CST Please advise patient to reschedule her appointment from 10/30 to earlier to discuss tremors if needed. -Okay to wait until January for pulmonology. She can always call them and aske to be on the waiting list to be rescheduled earlier for any cancellations. No urgent findings on CT. -Advise she notifies her finance lecturer of mild interstitial fibrosis on recent chest CT before restarting her methotrexate. TMILLER * Cristal Platt RN - 10/03/2021 3:59 PM CST Please advise. TMILLER * Serenity Rehman - 10/03/2021 3:50 PM CST Patient called and stated that she is concerned about waiting until January to see the rice milling supervisor. She also states that she still has no energy, and is always tired. She also c/o having body tremors sometimes daily, and other times not so much. She c/o her Rt. hand shaking a lot. Her is very concerned about her lung's, because her father had lung issues. She has concerns, because of her Lupus. TMILLER documented in this encounter Plan of Treatment Upcoming Encounters Date Type Department Care Team (Late st Contact Info) Description 10/02/2024 11:40 AM GRISTMILLER Office Visit [facility] Multispecialty Care - [facility] 3 [facility] [address] [place] [address] Johnnie Lr MD [address] [facility] [address] [place] [address] 01/04/2025 9:50 AM CDT Office Visit [facility] Family Medicine - [place] [address] [place] [address] Emily Jordan MD [address] [place], [place] [address] documented as of this encounter Visit Diagnoses Not on filedocumented in this encounter Additional Health Concerns Infection Onset Date Last Indicated Resolved Time COVID-19 Confirmed 09/08/2021 09/08/2021 12:32 AM GRISTMILLER Assessment Noted Time PHQ-9 Depression Total Score: 13 022 9:37 AM GRISTMILLER documented as of this encounter Care Teams Water Manager Relationship Specialty [place] [address] [address] [place] [address] PCP - General FAMILY PRACTICE 09/29/21 06/08/24 [place] [address] [facility]. [address] [place] [address] RHEUMATOLOGY 09/27/20 documented as of this encounter
--- OUTSIDE RECORDS SUMMARY | 2024-08-29 09:59 | XMS_ITS | Encounter Summary ---
Author Organization [facility] Address [address] [place] [address]. [place], [place] [address] [place] [address] Care Team Providers Care Adjuster And Inspector Name Role Phone Gladis Song MD Unavailable Siena Johnson MD Primary Care Provider [phone] Reason for Visit * Reason Onset Date Comments Question 09/11/2021 Encounter Details Date Type Department Care Team (Late st Contact Info) Description 09/11/2021 Telephone [facility] Family & Internal Medicine [address] [address] Thi Lugo MD [address] [place] [address]. [address] [place] [address] Question Social History Tobacco Use Types [...] file Legal Sex Female 10:22 PM ELECTRICAL LINEMAN Gender Identity Female 09/12/2021 9:51 AM ELECTRICAL LINEMAN Sexual Orientation Straight 09/12/2021 9: 51 AM ELECTRICAL LINEMAN COVID-19 Exposure Response Date Recorded In the last month, have you been in contact with someone who was confirmed or suspected to have Coronavirus / COVID-19? Unable to assess 09/08/2021 7:36 AM ELECTRICAL LINEMAN documented as of this encounter Progress Notes * Ava Abdi MA - 09/11/2021 10:38 AM CST Spoke to patient and she would like to go to [facility] for the Infusion. We will fill out paperwork and fax it. TRICAL LINEMAN * Ava Abdi MA - 09/11/2021 10:00 AM CST Do you want patient sent to [place] for Monoclonal Infusion? TRICAL LINEMAN * Julianna Velasquez - 09/11/2021 9:36 AM CST Pt Called had appt with dr lugo past Saturday Dr told her to call and set up appt for infusion for covid CB# [phone] TRICAL LINEMAN documented in this encounter Plan of Treatment Upcoming Encounters Date Type Department Care Team (Late st Contact Info) Description 10/02/2024 11:40 AM ELECTRICAL LINEMAN Office Visit [facility] Mult[facility]pecialty Care - [facility] 3 [facility] [place] [phone] Johnnie Lr MD 3 [facility] [address] [place] [address] 01/04/2025 9:50 AM CDT Office Visit [facility] Family Medicine - [place] [address] [address] Emily Jordan MD [address] [place] [address] documented as of this encounter Visit Diagnoses Not on filedocumented in this encounter Additional Health Concerns Infection Onset Date Last Indicated Resolved Time COVID-19 Confirmed 09/08/2021 09/08/2021 12:32 AM ELECTRICAL LINEMAN documented as of this encounter Care Teams Adjuster And Inspector Relationship Specialty [place] [address] [facility] [address] [place] [address] PCP - General INTERNAL MEDICINE 05/15/21 09/28/21 [place] [address] [facility] [address] [place] [address] RHEUMATOLOGY 09/27/20 documented as of this encounter
--- OUTSIDE RECORDS SUMMARY | 2024-08-29 09:59 | XMS_ITS | Encounter Summary ---
Author Organization [facility] Address [address] [place] [address]. [place], [place] [id number] [place] [id number] Care Team Providers Care Regional Branch Manager Name Role Phone Gladis Song MD Unavailable Thi Lugo MD Primary Care Provider [phone] Emily Jordan MD Primary Care Provider + Encounter Details Date Type Department Care Team (Late Contact Info) Description 12/15/2021 Urban Remedy Message Enc [facility] Family & Internal Medicine [address] [address] Mary, [facility] Provider Mammogram result Social History Tobacco Use Types Packs/Day Years [...] file Legal Sex Female 10:22 PM DIRECTOR OF DISTRIBUTION Gender Identity Female 09/12/2021 9:51 AM DIRECTOR OF DISTRIBUTION Sexual Orientation Straight 09/12/2021 9: 51 AM DIRECTOR OF DISTRIBUTION documented as of this encounter Plan of Treatment Upcoming Encounters Date Type Department Care Team (Late st Contact Info) Description 10/02/2024 11:40 AM DIRECTOR OF DISTRIBUTION Office Visit [facility] Medical [facility] Multispecialty Care - [facility] [address] [place] [address] Johnnie Lr MD [address] [facility] [address] [place] [address] 01/04/2025 9:50 AM CDT Office Visit [facility] - [place] [address] [place], [place] [address] Emily Jordan MD [address] [place] [address] documented as of this encounter Visit Diagnoses Not on filedocumented in this encounter Additional Health Concerns Infection Onset Date Last Indicated Resolved Time COVID-19 Rule Out 01/10/2022 01/10/2022 01/10/2022 1:34 AM CDT COVID-19 Rule Out 01/11/2022 01/11/2022 01/11/2022 7:34 AM CDT COVID-19 Rule Out 01/11/2022 01/11/2022 01/11/2022 12:56 PM CDT COVID-19 Rule Out 01/11/2022 01/11/2022 01/12/2022 6:38 PM CDT COVID-19 Rule Out 07/16/2022 07/16/2022 07/16/2022 6:24 PM DIRECTOR OF DISTRIBUTION COVID-19 Rule Out 05/09/2024 05/09/2024 05/09/2024 1:24 PM CDT Assessment Noted Time PHQ-9 Depression Total Score: 13 022 9:37 AM DIRECTOR OF DISTRIBUTION documented as of this encounter Care Teams Regional Branch Manager Relationship Specialty [place] [id number] [facility] [address] [place] [address] PCP - General FAMILY PRACTICE 09/29/21 06/08/24 Emily Jordan MD [address] [facility] [address] [place] [address] PCP - General FAMILY PRACTICE 06/09/24 [place] [address] [facility]. [address] [address] RHEUMATOLOGY 09/27/20 documented as of this encounter
--- OUTSIDE RECORDS SUMMARY | 2024-08-29 10:00 | XMS_ITS | Encounter Summary ---
Author Organization [facility] Address [address] [place] [address]. [place] [address] [place] [address] Care Team Providers Care Picking Belt Operator Name Role Phone Gladis Song MD Unavailable Monserrat Wilson NP Primary Care Provider [phone] Encounter Details Date Type Department Care Team (Latest Contact Info) Description 04/10/2021 Travel Social History Tobacco Use Types Packs/Day [...] on file Legal Sex Female 10:22 PM HEALTH SOCIAL WORK PROFESSOR Gender Identity Female 09/12/2021 9:51 AM HEALTH SOCIAL WORK PROFESSOR Sexual Orientation Straight 09/12/2021 9: 51 AM HEALTH SOCIAL WORK PROFESSOR COVID-19 Exposure Response Date Recorded In the last month, have you been in contact with someone who was confirmed or suspected to have Coronavirus / COVID-19? No / Unsure 04/10/2021 2:24 PM CDT documented as of this encounter Plan of Treatment Upcoming Encounters Date Type Department Care Team (Late st Contact Info) Description 10/02/2024 11:40 AM HEALTH SOCIAL WORK PROFESSOR Office Visit [facility] Multispecialty Care - [facility] [address] [facility] [place] [address] Johnnie Lr MD [address] [place] [address] 01/04/2025 9:50 AM CDT Office Visit [facility] Family Medicine - [place] [address] [facility] [address] [place] [address] Emily Jordan MD [address] [place] [address] documented as of this encounter Visit Diagnoses Not on filedocumented in this encounter Care Teams Picking Belt Operator Relationship Specialty Start Date End Date Monserrat Wilson NP [address] [place] [address] PCP - General NURSE PRACTITIONER 03/16/21 05/14/21 [place] [address] [facility]. [facility] [address] [place] [address] RHEUMATOLOGY 09/27/20 documented as of this encounter
--- OUTSIDE RECORDS SUMMARY | 2024-08-29 10:00 | XMS_ITS | Encounter Summary ---
Author Organization [facility] Address [address] [place] [address]. [place] [address] [place] [address] Care Team Providers Care Director It Name Role Phone Gabriel Shaver MD Primary Care Provider Gladis Cevallos MD Unavailable Reason for Visit * Reason Comments Follow Up IBS diarrhea, not ba d now. was alot worse. Encounter Details Date Type Department Care Team (Late st Contact Info) Description 11/28/2020 1:00 PM CDT Office Visit [facility] Family [facility] [address] [id number] Gabriel Shaver MD Follow Up (IBS diarrhea, not bad now. was alot worse.) Social History Tobacco Use Types Packs/Day Years [...] file Legal Sex Female 10:22 PM RESEARCH MICROBIOLOGIST Gender Identity Female 09/12/2021 9:51 AM RESEARCH MICROBIOLOGIST Sexual Orientation Straight 09/12/2021 9 :51 AM RESEARCH MICROBIOLOGIST COVID-19 Exposure Response Date Recorded In the last month, have you been in contact with someone who was confirmed or suspected to have Coronavirus / COVID-19? No / Unsure 11/28/2020 1:04 PM CDT documented as of this encounter Last Filed Vital Signs Vital Sign Reading Time Taken Comments Blood Pressure 109/65 11/28/2020 1:11 PM CDT Pulse 68 11/28/2020 1:11 PM CDT Temperature 36.5 ??C (97.7 ??F) 11/28/2020 1:11 PM CD T Respiratory Rate 16 11/28/2020 1:11 PM CDT Oxygen Saturation 97% 11/28/2020 1:11 PM CDT Inhaled Oxygen Concentration - - Weight 68 kg (150 lb) 11/28/2020 1:11 PM CDT Height 152.4 cm (5') 11/28/2020 1:11 PM CDT Body Mass Index 29.29 11/28/2020 1:11 PM CDT documented in this encounter Patient Instructions * Patient Instructions* Gabriel Shaver MD - 11/28/2020 1:00 PM CDT Patient Education Patient Education IBS Diet About this topic Irritable bowel syndrome, or IBS, is a common, long-term health problem of your belly. It causes a change in bowel habits but does not lead to a more serious problem. Doctors do not know what causes IBS and there is no cure for it. Care focuses on how to control the signs. Signs may be mild to very bad. They can last for weeks or months. The main signs are: ?? Belly pain and cramping ?? Belly fullness ?? Gassy feeling ?? Bloating ?? Upset stomach ?? Loose or hard stools ?? Loss of appetite ?? Mucus in your stool ?? Feeling like you haven???t finished a bowel movement What drugs may be needed? ?? The doctor may order drugs to: ? Lessen diarrhea ? Lessen gas ? Keep bowels regular ?? Your doctor or dietitian may suggest a vitamin, mineral, or probiotic supplement. Your doctor may also suggest slowly adding a fiber supplement. What changes to diet are needed? ?? Eat a proper diet in smaller portions. Foods higher in fat can cause and worsen diarrhea and belly pain. You may be able to eat these foods if you are not having any symptoms. ?? Ask your doctor if you should increase fiber in your diet. If so, add more fiber to your diet slowly. Adding fiber too fast can make your symptoms worse. ?? Take care of your mental health. Talk to your doctor about relaxation techniques. This will helpyou manage your stress levels. What foods are good to eat? ?? Tender meats made without added fat. This includes lean beef and pork, poultry, fish, eggs, soy products like tofu, and smooth nut butters. ?? Dairy products, such as buttermilk; fat-free and low-fat milk; yogurt; aged cheese, such as cheddar, Parmesan, Provolone, or French; and low-fat ice cream. You may need to choose lactose-free dairyproducts if you have lactose intolerance or diarrhea. ?? All kkmoc-lr-hod or cooked grain foods. This includes whole grain bread, whole grain pasta, brown rice, and oats. ?? Any vegetables that your body tolerates. Many people find they can eat green beans, carrots, butternut squash, and spinach. ?? All fruits and fruit juice except prune, apple, and grape juice. ?? Choose oils more often than solid fats. Limit fats to less than 8 teaspoons a day. ?? Water, decaffeinated coffee or tea, and sports drinks. What foods should be limited or avoided? ?? Avoid fatty foods like beef, pork, and other meats marbled with fat or poultry with the skin. Lunch meats, bologna, hot dogs, taveras and sausage are all high fat foods to avoid. Also stay away fromfried meats or fish. ?? You may need to avoid dried beans and peas if they cause gas. ?? Avoid whole milk, cream, sour cream, and ice cream. ?? Avoid foods with grains that cause symptoms. ?? Limit vegetables to 1/2 cup serving to reduce symptoms in the beginning. Avoid any vegetables that you cannot tolerate. You may need to avoid vegetables that cause gas. These include broccoli, Stevenson sprouts, cabbage, cauliflower, greens, peas, hopson beans, celery, and onions. ?? Limit to 1/2 cup or 1 piece of fruit at each meal to reduce symptoms in the beginning. Avoid prune, apple, or grape juice. Avoid any juice sweetened with sorbitol. You may have symptoms if you drink more than 2 cups of fruit juice, due to the amount of fructose. ?? Avoid drinks with caffeine or those sweetened with high-fructose corn syrup or sorbitol. These are things like cola, coffee, tea, or carbonated beverages. ?? Limit high-fat desserts, such as pastries, cakes, cookies, pie, and ice cream. Avoid honey or any dessert sweetened with high-fructose corn syrup or sorbitol. ?? Limit acidic, spicy, fried, or greasy foods. ?? Avoid alcohol, including beer, wine, and mixed drinks. Helpful tips ?? Drink plenty of fluids. ?? Eat meals and snacks on a regular schedule. Do not skip meals. Aim for 5 or 6 small meals per day. Avoid eating a large meal all at once. ?? Keep a food diary. This helps you track which foods or drinks cause you to have symptoms. Add new foods in small amounts and track how you feel. ?? Read the nutrition facts label. This will help you determine what is in the food you eat. Where can I learn more? Academy of [employer] and Dietetics https://www.eatright.org/health/wellness/digestive-health/caqzqrhkl-jkwjt-nzkokr me Last Reviewed Date 2019-05-29 Consumer Information Use and Disclaimer This information is not specific medical advice and does not replace information you receive from your health care provider. This is only a brief summary of general information. It does NOT include all information about conditions, illnesses, injuries, tests, procedures, treatments, therapies, discharge instructions or life-style choices that may apply to you. You must talk with your health care provider for complete information about your health and treatment options. This information should not be used to decide whether or not to accept your health care provider???s advice, instructions or recommendations. Only your health care provider has the knowledge and training to provide advice that is right for you. Copyright Copyright ?? 2020 [employer]. and its affiliates and/or licensors. All rights reserved. Patient Education Patient Education Shortness of Breath, Adult ED General Information You came to the Emergency Department (ED) for shortness of breath. The doctors feel the risk of a serious cause for your shortness of breath is low. Many things can make you feel short of breath. Lung problems, like asthma or chronic obstructive pulmonary disease (COPD) or a blood clot in your lungs, can cause shortness of breath. So can a heart attack or heart failure when your heart doesn???t work as well as it should. A serious allergic reaction can also cause very bad breathing problems. You may be waiting on some test results to learn the cause of your shortness of breath. The staff willcontact you if there are concerning results. What care is needed at home? ?? Call your regular doctor to let them know you were in the ED. Make a follow- up appointment if you were told to. ?? Keep a diary of your signs. Write down when you have trouble breathing and what you were doing before it happened. This can help figure out what things affect your breathing. Then, you may be ableto avoid them. ?? Do not smoke or be in smoke-filled places. Avoid things that may cause breathing problems like fumes, pollution, dust, and other common allergens. ?? Do coughing and deep breathing exercises to help keep your lungs clear. ?? If you have medicines to take when you are feeling short of breath, be sure to carry them with you. Then, you can take them when needed. When do I need to get emergency help? ?? Call for an ambulance right away if: ? You have signs of a heart attack, which may include: ?? Severe chest pain, pressure, or discomfort with: ?? Breathing trouble; sweating; upset stomach; or cold, clammy skin. ?? Pain in your arms, back, or jaw. ?? Worse pain with activity like walking up stairs. ?? Fast or irregular heartbeat. ?? Feeling dizzy, faint, or weak. ? You are having so much trouble breathing that you can only say one or two words at a time. ? You need to sit upright at all times to be able to breathe or cannot lie down. ? You develop swelling of your tongue, lips, or throat. ?? Return to the ED if: ? You feel your shortness of breath is slowly getting worse. When do I need to call the doctor? ?? You are feeling weak or more short of breath than usual when doing your activities. ?? You have a fever of 100.4??F (38??C) or higher, are coughing up mucus, have leg swelling, or hives. ?? You have new or worsening symptoms. Last Reviewed Date 2020-05-18 Consumer Information Use and Disclaimer This information is not specific medical advice and does not replace information you receive from your health care provider. This is only a brief summary of general information. It does NOT include all information about conditions, illnesses, injuries, tests, procedures, treatments, therapies, discharge instructions or life-style choices that may apply to you. You must talk with your health care provider for complete information about your health and treatment options. This information should not be used to decide whether or not to accept your health care provider???s advice, instructions or recommendations. Only your health care provider has the knowledge and training to provide advice that is right for you. Copyright Copyright ?? 2020 [employer] and its affiliates and/or licensors. All rights reserved. documented in this encounter Progress Notes * Gabriel Shaver MD - 11/28/2020 1:00 PM CDT Reason for Visit: No chief complaint on file. History of Present Illness: HPI Patient comes in to discuss her medication and history of IBS. Patient had called in and requested a refill of methscopolamine bromide. I asked her what she was utilizing this for since it is usuallyprescribed for peptic ulcer disease and not usually recommended in patients over 65. Patient statesthat she was diagnosed with IBS by a life insurance sales agent in 2019 and was prescribed 2/day which caused her diarrhea to completely stop but then she was unable to have a bowel movement. She went to 1 pill a day and resumed her normal bowels with no diarrhea. I thoroughly discussed the side effects and the recommendations for her age group and then prescribe the medication for her. Her insurance denied it. So I brought her in today to discuss all the different types of medications and possibilities that we could utilize for her. Location:chest Quality:shortness of breath Severity:4/10 Duration:3 weeks Timing:daily Modifying factors:walking upstairs or long distances Associated symptoms:nonr Medications: Current Outpatient Medications: ??? albuterol sulfate HFA (VENTOLIN HFA) 108 (90 Base) MCG/ACT inhaler, Ventolin HFA 90 mcg/actuation aerosol inhaler, Disp: , Rfl: ??? apixaban (ELIQUIS) 5 MG tablet, TAKE [...] FOR 90 DAYS, Disp: , Rfl: ??? belimumab 120 MG, , Disp: , Rfl: ??? bisoprolol 5 MG [...] route every day, Disp: , Rfl: ??? Cholecalciferol (VITAMIN D3) 50 MCG (1999 UT) Cap, daily., Disp: , Rfl: ??? etodolac 400 MG [...] (two) times daily., Disp: , Rfl: ??? leflunomide 20 MG tablet, Take 20 mg by mouth daily., Disp: , Rfl: ??? methotrexate 50 MG/2ML injection, INJECT 0.8 MILLILITER ONCE A WEEK FOR 90 DAYS, Disp: , Rfl: ??? Methscopolamine [place] 5 MG Tab, Take 5 mg by mouth daily., Disp: 90 tablet, Rfl: 0 ??? metoprolol succinate ER 50 MG 24 hr tablet, metoprolol succinate ER 50 mg tablet,extended release 24 hr, Disp: , Rfl: ??? metoprolol tartrate 25 MG tablet, , Disp: , Rfl: ??? montelukast 10 MG tablet, TAKE 1 TABLET BY MOUTH EVERY DAY EVERY NIGHT, Disp: , Rfl: ??? nitroglycerin 0.4 MG SL tablet, May repeat dose every 5 minutes for up to 3 doses total., Disp:, Rfl: ??? omeprazole EC 20 MG Tab EC tablet, omeprazole 20 mg capsule,delayed release, Disp: , Rfl: ??? ondansetron 4 MG disintegrating tablet, DISSOLVE 1 TABLET IN MOUTH 10 MINUTES PRIOR TO EACH PREP DOSE NEEDED FOR NAUSEA, Disp: , Rfl: ??? PANTOPRAZOLE EC 40 MG tablet, TAKE 1 TABLET BY MOUTH TWICE A DAY, Disp: 180 tablet, Rfl: 1 ??? PARoxetine 20 MG tablet, 10 mg. , Disp: , Rfl: ??? potassium chloride CR 20 MEQ tablet, TAKE 2 TABLETS EVERY MORNING AND 2 TABLETS EVERY EVENING, Disp: , Rfl: Allergies Allergen Reactions ??? Latex Rash ??? Sulfa Antibiotics Swelling ??? Levofloxacin Headache and Nausea Only ??? Nitrofurantoin Headache Past Medical History: Diagnosis Date ??? Anxiety ??? Arthritis ??? Asthma ??? Hypertension ??? Lupus (CMS/HCC) ??? Sleep apnea ??? Stroke (CMS/HCC) OB History No obstetric history on file. Past Surgical History: Procedure Laterality Date ??? APPENDECTOMY ??? SECTION ??? HC TRIGGER FINGER RELEASE ??? HYSTERECTOMY Social History Tobacco Use ??? Smoking status: Never Smoker ??? Smokeless tobacco: Never Used Substance Use Topics ??? Alcohol use: Yes Comment: up 2 glasses of wine/month ??? Drug use: Never Family History Problem Relation Name Age of Onset ??? Heart Disease Mother ??? Other (lungs) Father ROS: Review of Systems Constitutional: Negative for chills, fever and malaise/fatigue. Respiratory: Positive for shortness of breath. Negative for cough, sputum production and wheezing. Cardiovascular: Negative for chest pain, palpitations, orthopnea and leg swelling. Gastrointestinal: Negative for abdominal pain, constipation, diarrhea, heartburn, nausea and vomiting. Genitourinary: Negative for dysuria, flank pain, frequency, hematuria and urgency. Skin: Negative for itching and rash. Physical Exam Constitutional: She appears well-developed and well-nourished. No distress. HENT: Head: Normocephalic and atraumatic. Right Ear: External ear normal. Left Ear: External ear normal. Eyes: Pupils are equal, round, and reactive to light. Conjunctivae and EOM are normal. Right eye exhibits no discharge. Left eye exhibits no discharge. Neck: Normal range of motion. Neck supple. No tracheal deviation present. Cardiovascular: Normal rate, regular rhythm, normal heart sounds and intact distal pulses. Exam reveals no gallop and no friction rub. No murmur heard. Pulmonary/Chest: Effort normal and breath sounds normal. No respiratory distress. She has no wheezes. She has no rales. Abdominal: Soft. Bowel sounds are normal. She exhibits no shifting dullness, no distension, no pulsatile liver, no fluid wave, no abdominal bruit, no ascites, no pulsatile midline mass and no mass. There is no hepatosplenomegaly. There is no abdominal tenderness. There is no rigidity, no rebound, no guarding, no CVA tenderness, no tenderness at McBurney's point and negative Yarbrough's sign. No hernia. Skin: Skin is warm, dry and intact. She is not diaphoretic. Ortho Exam There were no vitals filed for this visit. Screening forms: PHQ-9: PHQ-9: Over the last two weeks, how often have you been bothered by any of the following problems? 04/26/2020 09/27/2020 LITTLE INTEREST OR PLEASURE IN DOING THINGS 0-Not at All 2-More than half the days FEELING DOWN, DEPRESSSED,OR HOPELESS 0-Not at All 1-Several Days PHQ2 DEPRESSION TOTAL SCORE 0 3 JEET-7 (Generalized Anxiety Disorder) Screening JEET-7 04/26/2020 Feeling nervous, anxious and on edge 1 - several days Not being able to stop or control worrying 1 - several days Worrying too much about different things 1 - several days Trouble Relaxing 2 - more than half the days Being so restless that it's hard to sit still 1 - several days Becoming easily annoyed or irritable 0 - not at all Feeling afraid as if something awful might happen 0 - not at all Total Score 6 Assessment/Recommendations/Plan 1. Shortness of breath Patient has an extensive cardiac history for which she sees cardiology is [facility]. Patient states that she last saw her electric motor analyst 1 year ago. She explained that she was well enough to be seen at least every 6 months. I have recommended that she do follow-up with cardiology as she may need another echocardiogram with a history of PFO and paroxysmal atrial fibrillation and systolic congestive heart failure. Ordered a chest x-ray to make sure there is no fluid upon the lungs if there iswe can adjust the Lasix but I would confirm with cardiology first and we can also run a BNP if there is fluid on the chest x-ray - XR CHEST PA+LAT; Future 2. Irritable bowel syndrome with diarrhea I spent 30 minutes with patient greater than 50% [id number] time preparing to see the patient. This included review of laboratory panels, documents from other physicians and review of testing also from other physicians. I performed a medically appropriate examination. I have counseled and educated the patient ordered the appropriate medications tests and procedures. I then documented clinical information electronic health record. I independently interpreted the results and communicated the results to the patient. We also worked together to work on care coordination my evaluation including consideration of further testing and treatment with discussion of risks and benefit analysis for the p atient all risks and complications to include morbidity and mortality of patient management decisions were discussed at the visit these were correlated with the patient's problems and treatment regimens. She has not taken any medications in the past 2 months and is doing well. Therefore, my current recommendation is withhold all medications and if she begins to have symptoms for clarification we can order IBS panel which would include fecal lactoferrin, fecal calprotectin and CBC. We did also make another referral to gastroenterology if needed. At that point there various other medications such as loperamide 2 to 4 mg orally initially followed by 2 mg after each loose stool or cholestyramine 2 to 4 g orally 2-4 times daily for the diarrhea there are antispasmodics such as dicyclomine 10 to 20mg 1 times daily when required secondary options would include amitriptyline 10 to 25 mg once dailyat bedtime 3. Hypertensive heart disease with chronic systolic congestive heart failure (CMS/HCC) His blood pressure is actually slightly low today. Patient is not dizzy she is not currently symptomatic but I have asked her to follow her blood pressure at home and make sure she communicates with cardiology before I make any adjustments to her blood pressure medication 4. PFO (patent foramen ovale) Have recommended a follow-up with cardiology for possible echocardiogram - XR CHEST PA+LAT; Future 5. Paroxysmal atrial fibrillation (CMS/HCC) Currently in normal sinus rhythm Encourage following a low fat, low carb diet, encorperate whole foods such as fresh fruits and vegetables and whole grains into your diet, encourage 5 small meals per day. Avoid sugar-sweetened beverages, added sugars, processed meats, refined grains and oils or other processed foods. Encourage to get at least 150 minutes of moderate aerobic activity or 75 minutes of vigorous aerobic activity a week, or a combination of moderate and vigorous activity.Discussed routine labs, preventative screenings, vaccinations, blood pressure, weight at today's visit. Follow up: HOSEA SHAVER MD 11/28/2020 1:10 PM documented in this encounter Plan of Treatment Upcoming Encounters Date Type Department Care Team (Late st Contact Info) Description 10/02/2024 11:40 AM RESEARCH MICROBIOLOGIST Office Visit [facility] [address] [place] [id number] Johnnie Lr MD [address] [facility] [address] [place] [address] 01/04/2025 9:50 AM CDT Office Visit [facility] - [place] [address] [place] [id number] Emily Jordan MD [address] [place], [place] [id number] documented as of this encounter Visit Diagnoses Diagnosis Shortness of breath- Primary Irritable bowel syndrome with diarrhea Irritable bowel syndrome Hypertensive heart disease with chronic systolic congestive heart failure ([facility]) PFO (patent foramen ovale) ([facility]) Ostium secundum type atrial septal defect Paroxysmal atrial fibrillation ([facility]) Atrial fibrillation documented in this encounter Care Teams Director It Relationship Specialty Start Date End Date Gabriel Shaver MD PCP - General FAMILY MEDICINE SPORTS MEDICINE 04/25/20 03/15/21 [place] [id number] [address] [facility] [address] RHEUMATOLOGY 09/27/20 documented as of this encounter
--- OUTSIDE RECORDS SUMMARY | 2024-08-29 10:00 | XMS_ITS | Encounter Summary ---
Author Organization [facility] Address [address] [place] [address]. [place] [address] [place] [address] Care Team Providers Care Rn Residential Name Role Phone Gladis Song MD Unavailable Siena Johnson MD Primary Care Provider Reason for Visit * Reason Onset Date Comments Medication 07/25/2021 attemmp to taper , pt requests return to 20 mg has been on this previously Encounter Details Date Type Department Care Team (Late st Contact Info) Description 07/25/2021 Telephone [facility] [phone] [place] [phone] Siena Johnson MD [address] [place] [phone] Medication (attemmp to taper, pt requests return to 20 mg has been on this previously) Social History Tobacco Use Types Packs/Day Years [...] on file Legal Sex Female 10:22 PM ACETYLENE CUTTER Gender Identity Female 09/12/2021 9:51 AM ACETYLENE CUTTER Sexual Orientation Straight 09/12/2021 9: 51 AM ACETYLENE CUTTER COVID-19 Exposure Response Date Recorded In the last month, have you been in contact with someone who was confirmed or suspected to have Coronavirus / COVID-19? No / Unsure 07/18/2021 9:20 AM ACETYLENE CUTTER documented as of this encounter Plan of Treatment Upcoming Encounters Date Type Department Care Team (Late st Contact Info) Description 10/02/2024 11:40 AM ACETYLENE CUTTER [facility] [address] [place] [address] Johnnie Lr MD [address] [place] [address] 01/04/2025 9:50 AM CDT [facility] - [place] [address] [place] [address] Emily Jordan MD [address] [place] [address] documented as of this encounter Visit Diagnoses Diagnosis Anxiety state- Primary Anxiety state, unspecified documented in this encounter Care Teams Rn Residential Relationship Specialty [place] [id number] [address] PCP - General INTERNAL MEDICINE 05/15/21 09/28/21 [place] [address] [facility] [address] [place] [address] RHEUMATOLOGY 09/27/20 documented as of this encounter
--- OUTSIDE RECORDS SUMMARY | 2024-08-29 10:00 | XMS_ITS | Encounter Summary ---
Author Organization [facility] Address [address] [place] [address]. [place] [address] [place] [address] Care Team Providers Care Collector Of Port Name Role Phone Gladis Song MD Unavailable Siena Johnson MD Primary Care Provider [phone] Encounter Details Date Type Department Care Team (Latest Contact Info) Description 07/18/2021 Travel Social History Tobacco Use Types Packs/Day [...] on file Legal Sex Female 10:22 PM ENGRAVING PLATE MAKER Gender Identity Female 09/12/2021 9:51 AM ENGRAVING PLATE MAKER Sexual Orientation Straight 09/12/2021 9: 51 AM ENGRAVING PLATE MAKER COVID-19 Exposure Response Date Recorded In the last month, have you been in contact with someone who was confirmed or suspected to have Coronavirus / COVID-19? No / Unsure 07/18/2021 9:20 AM ENGRAVING PLATE MAKER documented as of this encounter Plan of Treatment Upcoming Encounters Date Type Department Care Team (Late st Contact Info) Description 10/02/2024 11:40 AM ENGRAVING PLATE MAKER Office Visit [facility] Mult[facility]pec[facility]ty Care - [facility] [address] [facility] [place] [address] Johnnie Lr MD [address] [facility] [address] [place] [address] 01/04/2025 9:50 AM CDT Office Visit [facility] Family Medicine - [place] [address] [place] [address] Emily Jordan MD [address] [place] [address] documented as of this encounter Visit Diagnoses Not on filedocumented in this encounter Care Teams Collector Of Port Relationship Specialty [place] [address] [place] [address] [address] PCP - General INTERNAL MEDICINE 05/15/21 09/28/21 [place] [address] [place] [address] [address] RHEUMATOLOGY 09/27/20 documented as of this encounter
--- OUTSIDE RECORDS SUMMARY | 2024-08-29 10:00 | XMS_ITS | Encounter Summary ---
Author Organization [facility] Address [address] [place] [address]. [place] [address] [place] [address] Care Team Providers Care Assistant Professor Of Radiology Name Role Phone Gabriel Persaud MD Primary Care Provider Gladis Cevallos MD Unavailable Encounter Details Date Type Department Care Team (Latest Contact Info) Description 09/27/2020 Travel Social History Tobacco Use Types Packs/Day [...] file Legal Sex Female 10:22 PM PIPE STEM REPAIRER Gender Identity Female 09/12/2021 9:51 AM PIPE STEM REPAIRER Sexual Orientation Straight 09/12/2021 9: 51 AM PIPE STEM REPAIRER COVID-19 Exposure Response Date Recorded In the last month, have you been in contact with someone who was confirmed or suspected to have Coronavirus / COVID-19? No / Unsure 09/27/2020 11:04 AM PIPE STEM REPAIRER documented as of this encounter Plan of Treatment Upcoming Encounters Date Type Department Care Team (Late st Contact Info) Description 10/02/2024 11:40 AM PIPE STEM REPAIRER Office Visit [facility] Mult[facility] Care [facility] [address] [facility] [place] [address] Johnnie Lr MD [address] [facility] [address] [place] [address] 01/04/2025 9:50 AM CDT Office Visit [facility] Family Medicine - [place] [address] [place] [address] Emily Jordan MD [address] [place], [place] [id number] documented as of this encounter Visit Diagnoses Not on filedocumented in this encounter Care Teams Assistant Professor Of Radiology Relationship Specialty Start Date End Date Gabriel Persaud MD PCP - General FAMILY MEDICINE SPORTS MEDICINE 04/25/20 03/15/21 [place] [address] [facility]. [address] [place] [address] RHEUMATOLOGY 09/27/20 documented as of this encounter
--- OUTSIDE RECORDS SUMMARY | 2024-08-29 10:00 | XMS_ITS | Encounter Summary ---
Author Organization [facility] Address [address] [place] [address]. [place] [address] [place] [address] Care Team Providers Care Oracle Iam Consultant Name Role Phone Gladis Song MD Unavailable Monserrat Wilson NP Primary Care Provider [phone] Encounter Details Date Type Department Care Team (Latest Contact Info) Description 03/16/2021 Travel Social History Tobacco Use Types Packs/Day [...] on file Legal Sex Female 10:22 PM ENGINE SPECIALIST Gender Identity Female 09/12/2021 9:51 AM ENGINE SPECIALIST Sexual Orientation Straight 09/12/2021 9: 51 AM ENGINE SPECIALIST COVID-19 Exposure Response Date Recorded In the last month, have you been in contact with someone who was confirmed or suspected to have Coronavirus / COVID-19? No / Unsure 03/16/2021 9:49 AM CDT documented as of this encounter Plan of Treatment Upcoming Encounters Date Type Department Care Team (Late st Contact Info) Description 10/02/2024 11:40 AM ENGINE SPECIALIST Office Visit [facility] - [facility] [address] [facility] [place] [address] Johnnie Lr MD [address] [facility] [address] [place] [address] 01/04/2025 9:50 AM CDT Office Visit [facility] Family Medicine - [place] [address] [facility] [address] [place] [address] Emily Jordan MD [address] [place] [address] documented as of this encounter Visit Diagnoses Not on filedocumented in this encounter Care Teams Oracle Iam Consultant Relationship Specialty Start Date End Date Monserrat Wilson NP [address] [place] [address] PCP - General NURSE PRACTITIONER 03/16/21 05/14/21 [place] [id number] [facility] [address] [place] [address] RHEUMATOLOGY 09/27/20 documented as of this encounter
--- OUTSIDE RECORDS SUMMARY | 2024-08-29 10:00 | XMS_ITS | Encounter Summary ---
Author Organization [facility] Address [address] [place] [address]. [place] [address] [place] [address] Care Team Providers Care Cooking Casing And Drying Supervisor Name Role Phone Gabriel Persaud MD Primary Care Provider Gladis Cevallos MD Unavailable Encounter Details Date Type Department Care Team (Latest Contact Info) Description 02/07/2021 Scan HEALTH INFO SRVCS Scanned, Documents Social [...] on file Legal Sex Female 10:22 PM TITLE COORDINATOR Gender Identity Female 09/12/2021 9:51 AM TITLE COORDINATOR Sexual Orientation Straight 09/12/2021 9: 51 AM TITLE COORDINATOR documented as of this encounter Plan of Treatment Upcoming Encounters Date Type Department Care Team (Late st Contact Info) Description 10/02/2024 11:40 AM TITLE COORDINATOR Office Visit [facility] Care - [facility] [address] [facility] [place] [address] Johnnie Lr MD 3 [facility] [address] [place] [address] 01/04/2025 9:50 AM CDT Office Visit [facility] Family Medicine - [place] [address] [place], [place] [address] Emily Jordan MD [address] [place], [place] [address] documented as of this encounter Visit Diagnoses Not on filedocumented in this encounter Care Teams Cooking Casing And Drying Supervisor Relationship Specialty Start Date End Date Gabriel Persaud MD PCP - General FAMILY MEDICINE SPORTS MEDICINE 04/25/20 03/15/21 [place] [address] [facility]. [facility] [address] [place] [address] RHEUMATOLOGY 09/27/20 documented as of this encounter
--- OUTSIDE RECORDS SUMMARY | 2024-08-29 10:00 | XMS_ITS | Encounter Summary ---
Author Organization [facility] Address [address] [place] [address]. [place] [address] [place] [address] Care Team Providers Care Sas Developer Name Role Phone Israel Shaver MD Primary Care Provider Gladis Cevallos MD Unavailable Reason for Visit * Reason Onset Date Comments Refill Request 11/21/2020 Encounter Details Date Type Department Care Team (Late st Contact Info) Description 11/21/2020 Telephone [facility] Family Medicine - [place] [address] [address] Israel Shaver MD Refill Request Social History Tobacco Use Types [...] on file Legal Sex Female 10:22 PM TOY ELECTRIC TRAIN REPAIRER Gender Identity Female 09/12/2021 9:51 AM TOY ELECTRIC TRAIN REPAIRER Sexual Orientation Straight 09/12/2021 9: 51 AM TOY ELECTRIC TRAIN REPAIRER documented as of this encounter Progress Notes * Juan Antonio Albert MA - 11/24/2020 9:58 AM CDTAddended by: JUAN ANTONIO ALBERT on: 11/24/2020 09:58 AM Modules accepted: Orders * Juan Antonio Albert MA - 11/24/2020 9:54 AM CDT Patient called she takes Methscopolamine [place] 5mg for IBS, she can not remember the doctor's name who prescribed this medication for her. Do you want to refill this? * Juan Antonio Albert MA - 11/21/2020 1:38 PM CDT Last office visit at this office: Last visit with ISRAEL SHAVER in [facility] was on: 05/20/2020 in [place] Future appointment scheduled: No future appointments. LM for patient to call office back regarding why she is taking Methscopolamine * Seble Carter - 11/21/2020 9:44 AM CDT Refill request for methscopolamine and folic acid 90 day supply [facility] Kamala Rosas documented in this encounter Plan of Treatment Upcoming Encounters Date Type Department Care Team (Late st Contact Info) Description 10/02/2024 11:40 AM TOY ELECTRIC TRAIN REPAIRER Office Visit [facility] Multispecialty Care - [facility] [address] [facility] [place] [address] Johnnie Lr MD [address] [facility] [address] [place] [address] 01/04/2025 9:50 AM CDT Office Visit [facility] Family Medicine - [place] [address] [facility] [address] [place] [address], [place] [address] Emily Jordan MD [address] [place] [address] documented as of this encounter Visit Diagnoses Diagnosis Irritable bowel syndrome, unspecified type- Primary documented in this encounter Care Teams Sas Developer Relationship Specialty Start Date End Date Israel Shaver MD PCP - General FAMILY MEDICINE SPORTS MEDICINE 04/25/20 03/15/21 [place] [id number] [facility]. [facility] [address] [place] [address] RHEUMATOLOGY 09/27/20 documented as of this encounter
--- OUTSIDE RECORDS SUMMARY | 2024-08-29 10:00 | XMS_ITS | Encounter Summary ---
Author Organization [facility] Address [address] [place] [address]. [place], [place] [address] [place] [address] Care Team Providers Care Carbon Paste Mixer Operator Name Role Phone Gladis Song MD Unavailable Siena Johnson MD Primary Care Provider Encounter Details Date Type Department Care Team (Late Contact Info) Description 06/29/2021 Orders Only [facility] Family & Internal Medicine - [address] [address] Fatimah Serrano MA Social History Tobacco Use Types Packs/Day [...] on file Legal Sex Female 10:22 PM MANAGED CARE COORDINATOR Gender Identity Female 09/12/2021 9:51 AM MANAGED CARE COORDINATOR Sexual Orientation Straight 09/12/2021 9: 51 AM MANAGED CARE COORDINATOR documented as of this encounter Plan of Treatment Upcoming Encounters Date Type Department Care Team (Late Contact Info) Description 10/02/2024 11:40 AM MANAGED CARE COORDINATOR Office Visit [facility] - [facility] [address] [facility] [place] [address] Johnnie Lr MD [address] [facility] [address] [place] [address] 01/04/2025 9:50 AM CDT Office Visit [facility] Family Medicine - [place] [address] [place] [address] Emily Jordan MD [address] [place] [address] documented as of this encounter Visit Diagnoses Diagnosis Essential hypertension Unspecified essential hypertension documented in this encounter Care Teams Carbon Paste Mixer Operator Relationship Specialty [place] [address] [facility] [address] [place] [address] PCP - General INTERNAL MEDICINE 05/15/21 09/28/21 [place] [address] [facility] [address] [place] [address] RHEUMATOLOGY 09/27/20 documented as of this encounter
--- OUTSIDE RECORDS SUMMARY | 2024-08-29 10:00 | XMS_ITS | Encounter Summary ---
Author Organization [facility] Address [address] [place] [address]. [place] [address] [place] [address] Care Team Providers Care Theatrical Dresser Name Role Phone Gabriel Persaud MD Primary Care Provider Gladis Cevallos MD Unavailable Reason for Visit * Reason Comments Image (SCAN) Encounter Details Date Type Department Care Team (Latest Contact Info) Description 11/28/2020 Scan HEALTH INFO SRVCS Scanned, Documents Image (SCAN) Social History Tobacco Use Types Packs/Day [...] on file Legal Sex Female 10:22 PM PAPETERIE TABLE ASSEMBLER Gender Identity Female 09/12/2021 9:51 AM PAPETERIE TABLE ASSEMBLER Sexual Orientation Straight 09/12/2021 9: 51 AM PAPETERIE TABLE ASSEMBLER COVID-19 Exposure Response Date Recorded In the last month, have you been in contact with someone who was confirmed or suspected to have Coronavirus / COVID-19? No / Unsure 11/28/2020 1:04 PM CDT documented as of this encounter Plan of Treatment Upcoming Encounters Date Type Department Care Team (Late st Contact Info) Description 10/02/2024 11:40 AM PAPETERIE TABLE ASSEMBLER Office Visit [facility] Mult[facility]pecial[facility] - [facility] [address] [place] [address] Johnnie Lr MD [address] [place] [address] 01/04/2025 9:50 AM CDT Office Visit [facility] Family Medicine - [place] [address] [place], [place] [address] Emily Jordan MD [address] [place], [place] [address] documented as of this encounter Procedures Procedure Name Priority Date/Time Associated Diagnosis Comments IMAGE GENERIC 11/28/2020 documented in this encounter Results * IMAGE GENERIC (11/28/2020) Anatomical Region Laterality Modality Other 11/28/2020 Narrative 11/28/2020 Ordered by an unspecified provider. us Documents Scanned SCANNING Final Result documented in this encounter Visit Diagnoses Not on filedocumented in this encounter Care Teams Theatrical Dresser Relationship Specialty Start Date End Date Gabriel Persaud MD PCP - General FAMILY MEDICINE SPORTS MEDICINE 04/25/20 03/15/21 [place] [address] [facility]. [address] [place] [address] RHEUMATOLOGY 09/27/20 documented as of this encounter
--- OUTSIDE RECORDS SUMMARY | 2024-08-29 10:00 | XMS_ITS | Encounter Summary ---
Author Organization [facility] Address [address] [place] [address]. [place], [place] [id number] [place] [address] Care Team Providers Care Gasoline Engine Assembler Name Role Phone Gladis Song MD Unavailable Majo Hope MD Primary Care Provider Reason for Visit * Reason Comments Cough productive cough wit h yellow sputum Sinus Problem Encounter Details Date Type Department Care Team (Late st Contact Info) Description 09/08/2021 3:20 PM SHIFTMAN Telemedicine [facility] Medical Group Family & Internal Medicine [address] [address] Thi Lugo MD [address] [place] [address]. [address] [place] [address] Cough (productive cough with yellow sputum); Sinus Problem Social History Tobacco Use Types Packs/Day Years [...] on file Legal Sex Female 10:22 PM SHIFTMAN Gender Identity Female 09/12/2021 9:51 AM SHIFTMAN Sexual Orientation Straight 09/12/2021 9: 51 AM SHIFTMAN COVID-19 Exposure Response Date Recorded In the last month, have you been in contact with someone who was confirmed or suspected to have Coronavirus / COVID-19? Unable to assess 09/08/2021 7:36 AM SHIFTMAN documented as of this encounter Last Filed Vital Signs Vital Sign Reading Time Taken Comments Blood Pressure - - Pulse - - Temperature 36.5 ??C (97.7 ??F) 09/08/2021 1 1:48 AM SHIFTMAN patient did this morning Respiratory Rate - - Oxygen Saturation - - Inhaled Oxygen Concentration - - Weight 67.1 kg (148 lb) 09/08/2021 11:4 8 AM SHIFTMAN stated Height - - Body Mass Index 28.9 07/18/2021 9:37 AM SHIFTMAN documented in this encounter Patient Instructions * Patient Instructions* Thi Lugo MD - 09/08/2021 3:20 PM SHIFTMAN Virtual visit fu TMAN documented in this encounter Progress Notes * Yumiko Platt RN - 09/08/2021 3:20 PM CSTAddended by: YUMIKO PLATT on: 09/08/2021 03:30 PM Modules accepted: Orders TMAN * Thi Lugo MD - 09/08/2021 3:20 PM CST Reason for Visit: Cough (productive cough with yellow sputum) and Sinus Problem History of Present Illness: HPI Miss Chio Orantes is a 70-year-old female with complex past and current medical history but not limited to asthma, CVA, hypertension, A. fib on Eliquis, heart failure preserved ejection fraction, on methotrexate for SLE, restless legs and hypertension was seen today via video visit for cough and sinus problems. I introduced and identified myself, received verbal consent from the patient to proceed with this video visit and made the patient aware that the same confidentiality and information technology technician practices apply. The patient joined the video visit from Home. I completed the virtual visit from Office. The following clinical staff helped with this visit MA: rosalind. Total Time Spent in Minutes: 12 minutes. Symptoms started 09/02/2021 when they were at a wedding. She experienced sore throat and Associated cough. No fever. Saturday morning she had a message from [employer] that they were tested positive. Her hometest was negative 09/04/2021. She continues to have cough with yellow mucus. She can taste and smell okay.She has been taking dayquil and nightquil and tyelnol with some relief. Sick contacts- last exposure: 09/04 with son who was positive for COVID-19. Covid vaccination- in October 2020. She had booster in aug 2021. Influenza- jul 2021 No other concerns for today. ROS: Review of Systems Constitutional: Negative for activity change, appetite change, chills and fever. HENT: Positive for sinus pressure and sore throat. Negative for congestion, ear discharge, facial swelling, hearing loss, nosebleeds, postnasal drip and rhinorrhea. Respiratory: Positive for cough and sputum production. Negative for shortness of breath and wheezing. Cardiovascular: Negative for chest pain, palpitations and leg swelling. Gastrointestinal: Positive for diarrhea and vomiting. Negative for abdominal pain and constipation. Genitourinary: Negative for dysuria, hematuria and pelvic pain. Musculoskeletal: Negative for arthralgias. Neurological: Positive for headaches. Negative for dizziness and syncope. Psychiatric/Behavioral: Negative for behavioral problems. Medications: Current [...] DAY, Disp: 30 mL, Rfl: 2 ??? bisoprolol 5 MG tablet, TAKE 1 [...] route every day, Disp: , Rfl: ??? dexlansoprazole 60 MG capsule, Take 60 mg by mouth 2 (two) times daily., Disp: , Rfl: ??? fluticasone 110 MCG/ACT [...] TABLETS EVERY EVENING, Disp: , Rfl: ??? abatacept (ORENCIA) 250 MG injection, , Disp: 3 each, Rfl: ??? B-D 3CC LUER-KAILASH SYR 22GX1 22G X 1 3 ML Misc, USE ONCE A MONTH DIRECTED WITH METHOTREXATE,Disp: , Rfl: ??? B-D INSULIN SYRINGE 1CC/25G 25G X 5/8 1 ML Misc, USE DIRECTED FOR 90 DAYS, Disp: , Rfl: ??? BD INTEGRA SYRINGE 25G X 1 3 ML Misc, USE DIRECTED FOR 90 DAYS, Disp: , Rfl: ??? DICYCLOMINE 10 MG capsule, TAKE 1 CAPSULE BY MOUTH FOUR TIMES A DAY BEFORE MEALS AND NIGHTLY FOR 30 DAYS, Disp: 360 capsule, Rfl: 1 ??? etodolac 400 MG tablet, , Disp: , Rfl: ??? ID NOW COVID-19 Kit, Test as directed, Disp: , Rfl: ??? methotrexate 2.5 MG tablet, , Disp: , Rfl: ??? Methscopolamine [place] 5 MG Tab, Take 5 mg by mouth daily., Disp: , Rfl: ??? metoprolol succinate ER 50 MG 24 hr tablet, metoprolol succinate ER 50 mg tablet,extended release 24 hr, Disp: , Rfl: ??? omeprazole EC 20 MG Tab EC tablet, omeprazole 20 mg capsule,delayed release, Disp: , Rfl: ??? ondansetron 4 MG disintegrating tablet, DISSOLVE 1 TABLET IN MOUTH 10 MINUTES PRIOR TO EACH PREP DOSE NEEDED FOR NAUSEA, Disp: , Rfl: Allergies Allergen Reactions ??? [...] Heart Disease Mother ??? Other (lungs) Father Family Status Relation Name Status ??? Mother ??? Father PHYSICAL EXAM General-appearance normal. Alert. No acute distress. HENT-rhinorrhea Present. Resp -pulmonary effort normal. No respiratory distress. No audible wheeze. Skin- normal, no jaundice Neuro-patient is alert and oriented x3. Psych- Normal thought content and judgment. Rest of the physical exam limited due to telehealth appointment. Filed Vitals: 09/08/21 1148 Temp: 97.7 ??F (36.5 ??C) TempSrc: Skin Weight: 67.1 kg (148 lb) Diagnoses/Impression: 1. Exposure to confirmed case of COVID-19 2. Viral sinusitis 3. Suspected COVID-19 virus infection Recommendations and Plan: -I Will rule out COVID-19 , will need confirmation with PCR due to close contact. If she tests positive for COVID-19, she will benefit from antibody infusion treatment due to high risk and immunocompromised. -Advised Flonase twice daily for a week and then cut down or stop and better. -Advised Tylenol or ibuprofen as needed for low-grade fever, headaches, and myalgias. Warm saline gargles for any sore throat. Mucinex as needed for congestion. -Advised to Seek medical care immediately if you develop respiratory distress, worsening shortness of breath, new confusion, inability to wake her stay awake or persistent pain/pressure in the chest or if your skin, lips, nailbeds turn pale or palacios or blue depending on skin tone. Check your temperature daily. Patient voiced understanding and agrees with the plan. All questions were answered. Follow up next week-VIRTUAL VISIT-will need antibiotics for sinusitis if symptoms persist next week. Orders Placed This Encounter ??? methotrexate 2.5 MG tablet Reviewed and updated this visit by provider: Meds Problems Thi Lugo MD Referring Provider: No ref. provider found PCP: MAJO HOPE MD TMAN documented in this encounter Plan of Treatment Upcoming Encounters Date Type Department Care Team (Late st Contact Info) Description 10/02/2024 11:40 AM SHIFTMAN Office Visit [facility] Medical [facility] Multispecialty Care - [facility] [address] [place] [id number] Johnnie Lr MD [address] [place] [address] 01/04/2025 9:50 AM CDT Office Visit [facility] Family Medicine - [place] [address] [place] [phone] Emily Jordan MD [address] [place], [place] [id number] documented as of this encounter Procedures Procedure Name Priority Date/Time Associated Diagnosis Comments CORONAVIRUS (COVID-19) ANTIGEN Routine 09/08/2021 Exposure to confirmed case of COVID-19 Viral sinusitis Suspected COVID-19 virus infection documented in this encounter Results * CORONAVIRUS (COVID-19) ANTIGEN (09/08/2021) CORONAVIRUS ANTIGEN IA NEGATIVE NEGATIVE -[id number] [facility] Internal Control: VALID VALID -[id number] Specimen from nose (specimen) NASAL STRUCTURE / Unknown 09/08/2021 Thi Lugo MD MICROBIOLOGY - GENERAL ORDERAB LES Final Result Performing Organization Address City/[facility]/ZIP Co de Phone Number -[phone] [address] [place] [address] [place] [address], documented in this encounter Visit Diagnoses Diagnosis Exposure to confirmed case of COVID-19- Primary Viral sinusitis Unspecified sinusitis (chronic) Suspected COVID-19 virus infection Acute cough documented in this encounter Additional Health Concerns Infection Onset Date Last Indicated Resolved Time COVID-19 Rule Out 09/08/2021 09/08/2021 09/08/2021 3:22 PM SHIFTMAN documented as of this encounter Care Teams Gasoline Engine Assembler Relationship Specialty [place] [id number] [address] [facility] [address] [place] [address] PCP - General INTERNAL MEDICINE 05/15/21 09/28/21 [place] [address] [address] [address] RHEUMATOLOGY 09/27/20 documented as of this encounter
--- OUTSIDE RECORDS SUMMARY | 2024-08-29 10:00 | XMS_ITS | Encounter Summary ---
Author Organization [facility] Address [address] [place] [address]. [place] [address] [place] [address] Care Team Providers Care Telephone Operator Name Role Phone Gladis Song MD Unavailable Siena Johnson MD Primary Care Provider [phone] Encounter Details Date Type Department Care Team (Latest Contact Info) Description 05/19/2021 Scan HEALTH INFO SRVCS Scanned, Documents Social [...] on file Legal Sex Female 10:22 PM ORTHOPEDICS PEDIATRIC PHYSICIAN Gender Identity Female 09/12/2021 9:51 AM ORTHOPEDICS PEDIATRIC PHYSICIAN Sexual Orientation Straight 09/12/2021 9: 51 AM ORTHOPEDICS PEDIATRIC PHYSICIAN COVID-19 Exposure Response Date Recorded In the last month, have you been in contact with someone who was confirmed or suspected to have Coronavirus / COVID-19? No / Unsure 05/15/2021 3:02 PM CDT documented as of this encounter Plan of Treatment Upcoming Encounters Date Type Department Care Team (Late st Contact Info) Description 10/02/2024 11:40 AM ORTHOPEDICS PEDIATRIC PHYSICIAN Office Visit [facility] Medical Group Multispecialty Care - [facility] [address] [place] [address] Johnnie Lr MD [address] [place] [address] 01/04/2025 9:50 AM CDT Office Visit [facility] Family Medicine - [place] [address] [place], [place] [address] Emily Jordan MD [address] [place] [address] documented as of this encounter Visit Diagnoses Not on filedocumented in this encounter Care Teams Telephone Operator Relationship Specialty [place] [id number] [facility]. [facility] [address] [place] [address] PCP - General INTERNAL MEDICINE 05/15/21 09/28/21 [place] [address] [facility]. [facility] [address] [place] [address] RHEUMATOLOGY 09/27/20 documented as of this encounter
--- OUTSIDE RECORDS SUMMARY | 2024-08-29 10:00 | XMS_ITS | Encounter Summary ---
Author Organization [facility] Address [address] [place] [address]. [place] [address] [place] [address] Care Team Providers Care Applied Researcher Name Role Phone Gabriel Persaud MD Primary Care Provider Gladis Cevallos MD Unavailable Reason for Visit * Reason Onset Date Comments Orders 09/28/2020 Encounter Details Date Type Department Care Team (Late st Contact Info) Description 09/28/2020 Telephone [facility] Medical Group Family Medicine - [place] [address] [address] Gabriel Persaud MD Orders Social History Tobacco Use Types Packs/Day Years [...] on file Legal Sex Female 10:22 PM GAS LINE SERVICER Gender Identity Female 09/12/2021 9:51 AM GAS LINE SERVICER Sexual Orientation Straight 09/12/2021 9: 51 AM GAS LINE SERVICER COVID-19 Exposure Response Date Recorded In the last month, have you been in contact with someone who was confirmed or suspected to have Coronavirus / COVID-19? No / Unsure 09/27/2020 11:04 AM GAS LINE SERVICER documented as of this encounter Progress Notes * Juan Antonio Albert MA - 09/29/2020 9:13 AM CST Diagnosis code changed and faxed order LINE SERVICER * Seble Carter - 09/28/2020 3:27 PM CST [facility] called regarding bone density test. She said the diagnosis code needs to be Z78.0for it to pass medical necessity. Can you change it in system and fax order to [facility] [phone]? LINE SERVICER documented in this encounter Plan of Treatment Upcoming Encounters Date Type Department Care Team (Late st Contact Info) Description 10/02/2024 11:40 AM GAS LINE SERVICER Office Visit [facility] Multispecialty Care - [facility] [address] [facility] [place] [address] Johnnie Lr MD [address] [place] [address] 01/04/2025 9:50 AM CDT Office Visit [facility] Family Medicine - [place] [address] [facility] [address] [place] [address] Emily Jordan MD [address] [place] [address] documented as of this encounter Visit Diagnoses Not on filedocumented in this encounter Care Teams Applied Researcher Relationship Specialty Start Date End Date Gabriel Persaud MD PCP - General FAMILY MEDICINE SPORTS MEDICINE 04/25/20 03/15/21 [place] [address] [facility]. [facility] [address] [place] [address] RHEUMATOLOGY 09/27/20 documented as of this encounter
--- OUTSIDE RECORDS SUMMARY | 2024-08-29 10:00 | XMS_ITS | Encounter Summary ---
Author Organization [facility] Address [address] [place] [address]. [place] [address] [place] [address] Care Team Providers Care Pickling Drum Operator Name Role Phone Gabriel Persaud MD Primary Care Provider Gladis Cevallos MD Unavailable Reason for Visit * Reason Onset Date Comments Medication Request 12/02/2020 Encounter Details Date Type Department Care Team (Late st Contact Info) Description 12/02/2020 Telephone [facility] Medical Group Family Medicine - [place] [address] [address] Gabriel Persaud MD Medication Request Social History Tobacco Use Types [...] file Legal Sex Female 10:22 PM RISK DEVELOPER Gender Identity Female 09/12/2021 9:51 AM RISK DEVELOPER Sexual Orientation Straight 09/12/2021 9: 51 AM RISK DEVELOPER COVID-19 Exposure Response Date Recorded In the last month, have you been in contact with someone who was confirmed or suspected to have Coronavirus / COVID-19? No / Unsure 11/28/2020 1:04 PM CDT documented as of this encounter Patient Instructions * Patient Instructions* Gabriel Persaud MD - 12/02/2020 2:33 PM CDT 2 medications called in the first dicyclomine 10 mg 4 times daily when required as for spasms. I called the patient explained to her just take as needed for the spasms and pain. Antidiarrheal location is alosetron 1 mg twice daily patient has an allergy to levofloxacin which makes loperamide and cholestyramine for possible interactions. This is to be taken twice daily for aslong as she has the diarrhea. Informed her to stop the medication at any point in time she feels any side effects and call me immediately. documented in this encounter Progress Notes * Gabriel Persaud MD - 12/02/2020 2:27 PM CDT ----- Message from Juan Antonio Albert MA sent at 12/02/2020 1:47 PM CDT ----- ----- Message ----- From: Seble Carter Sent: 12/02/2020 11:54 AM CDT To: Gabriel Tavarez * Juan Antonio Albert MA - 12/02/2020 1:47 PM CDT What do you want to give her? * Seble Carter - 12/02/2020 11:52 AM CDT Chio said ever since her visit her IBS has been bothering her. She has had diarrhea. She is now wanting medication for this. [facility] Kamala Rosas documented in this encounter Plan of Treatment Upcoming Encounters Date Type Department Care Team (Late st Contact Info) Description 10/02/2024 11:40 AM RISK DEVELOPER Office Visit [facility] Multispecialty Care - [facility] [address] [facility] [place] [address] Johnnie Lr MD [address] [facility] [address] [place] [address] 01/04/2025 9:50 AM CDT Office Visit [facility] Family Medicine - [place] [address] [place] [address] Emily Jordan MD [address] [place] [address] documented as of this encounter Visit Diagnoses Diagnosis Irritable bowel syndrome with diarrhea- Primary Irritable bowel syndrome documented in this encounter Care Teams Pickling Drum Operator Relationship Specialty Start Date End Date Gabriel Persaud MD PCP - General FAMILY MEDICINE SPORTS MEDICINE 04/25/20 03/15/21 [place] [address] [facility] [place] [address] RHEUMATOLOGY 09/27/20 documented as of this encounter
--- OUTSIDE RECORDS SUMMARY | 2024-08-29 10:00 | XMS_ITS | Encounter Summary ---
Author Organization [facility] Address [address] [place] [address]. [place] [address] [place] [address] Care Team Providers Care Cover Cutter Machine Name Role Phone Gabriel Persaud MD Primary Care Provider Gladis Cevallos MD Unavailable Encounter Details Date Type Department Care Team (Late st Contact Info) Description 02/07/2021 Orders Only [facility] Family Medicine - [place] [address] [address] Juan Antonio Albert, DEISY Social History Tobacco Use Types Packs/Day Years [...] file Legal Sex Female 10:22 PM WATER QUALITY ASSISTANT Gender Identity Female 09/12/2021 9:51 AM WATER QUALITY ASSISTANT Sexual Orientation Straight 09/12/2021 9: 51 AM WATER QUALITY ASSISTANT documented as of this encounter Plan of Treatment Upcoming Encounters Date Type Department Care Team (Late st Contact Info) Description 10/02/2024 11:40 AM WATER QUALITY ASSISTANT Office Visit [facility] Multispecialty Care - [address] [place] [address] Johnnie Lr MD [address] [facility] [address] [place] [address] 01/04/2025 9:50 AM CDT Office Visit [facility] Family Medicine - [place] [address] [place] [address] Emily Jordan MD [address] [place] [address] documented as of this encounter Visit Diagnoses Diagnosis Systemic lupus erythematosus, unspecified SLE type, unspecified organ involvement status ([facility])- Primary documented in this encounter Care Teams Cover Cutter Machine Relationship Specialty Start Date End Date Gabriel Persaud MD PCP - General FAMILY MEDICINE SPORTS MEDICINE 04/25/20 03/15/21 [place] [id number] [facility]. [address] [place] [address] RHEUMATOLOGY 09/27/20 documented as of this encounter
--- OUTSIDE RECORDS SUMMARY | 2024-08-29 10:00 | XMS_ITS | Encounter Summary ---
Author Organization [facility] Address [facility] [place] [address] [place] [address] Care Team Providers Care Plaster Mixer Name Role Phone Gladis Song MD Unavailable Monserrat Wilson NP Primary Care Provider [phone] Reason for Referral * Imaging (Emergency) - Closed Specialty Diagnoses / Procedures Referred By Contac t Referred To Contact RADIOLOGY Procedures CT ABD+PEL W IV CON ONLY Jordan Manuel MD [address] [place] [address] Phone: tel: fax: Referral ID Status Reason Start Date Expiration Date Visits Re quested Visits Authorized [id number] Closed 03/16/2021 04/16/2022 1 1 Reason for Visit * Reason Comments Abdominal Pain Encounter Details Date Type Department Care Team (Late st Contact Info) Description 03/16/2021 9:51 AM CDT - 03/16/2021 12:36 PM CDT Emergency [facility] Emergency Room [address] [place] [address] Jordan Manuel MD [address] [place] [address] Abdominal Pain Discharge Disposition: Home or Self Care (Routine [...] file Legal Sex Female 10:22 PM 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 No / Unsure 03/16/2021 9:49 AM CDT documented as of this encounter Last Filed Vital Signs Vital Sign Reading Time Taken Comments Blood Pressure 116/62 03/16/2021 12:00 PM CDT Pulse 71 03/16/2021 10:08 AM CDT Temperature 36.6 ??C (97.8 ??F) 03/16/2021 11:48 AM C DT Respiratory Rate 16 03/16/2021 11:48 AM CDT Oxygen Saturation 95% 03/16/2021 12:00 PM CDT Inhaled Oxygen Concentration - - Weight 68.9 kg (152 lb) 03/16/2021 10:08 AM CDT Height 152.4 cm (5') 03/16/2021 10:08 AM CDT Body Mass Index 29.69 03/16/2021 10:08 AM CDT documented in this encounter Discharge Instructions * Discharge Instructions* Jordan Manuel MD - 03/16/2021 12:21 PM CDT Continue all present medication as prescribed. Take Augmentin as prescribed. Take [id number] [id number] per package instructions. Fluids. Diet and activity as tolerated. Follow-up with Dr. Johnson with the on-call physician as well as Dr. William Fierro the on-call car restorer in the next 3 to 5 days. Call both their offices today for appointments. Return to the emergency department for anyproblems concerns * Attachments The following attachments cannot be sent through Care Everywhere. * Severe Abdominal Pain Discharge Instructions, Adult (Prydeinig) * Proctitis (Prydeinig) documented in this encounter Medications at Time [...] unspecified SLE type, unspecified organ involvement status ([facility]) 3 each 02/07/2021 2 albuterol sulfate HFA (VENTOLIN HFA) 108 (90 Base) MCG/ACT inhalerIndications: Shortness of breath Inhale 2 puffs into the lungs every 4 (four) hours as needed for Wheezing. 8 g 3 11/29/2020 2 amoxicillin-clavula dimitris (AUGMENTIN) 875-125 MG tablet Take 1 tablet (875 mg total) by mouth 2 (two) times daily for 10 days. 20 tablet 03/16/2021 1 apixaban 5 MG tablet TAKE 1 TABLET [...] MG-UNIT Tab Take by mouth daily. 2 Cholecalciferol (VITAMIN D3) 50 MCG (2000 UT) Cap daily. 1 DICYCLOMINE 10 MG capsuleIndications: Irritable bowel syndrome [...] TABLET BY MOUTH EVERY DAY 90 tablet 12/27/2020 1 hydroxychloroquine 200 MG tablet Take 200 mg by mouth 2 (two) times daily. 05/14/2018 2 leflunomide 20 MG tablet Take 20 mg by mouth daily. 2 methotrexate 50 MG/2ML injection INJECT 0.8 MILLILITER ONCE A WEEK FOR 90 DAYS 02/17/2020 2 metoprolol succinate ER 50 MG 24 hr tablet metoprolol succinate ER 50 mg tablet,extended release 24 hr 2 metoprolol tartrate 25 MG tablet 1 montelukast 10 MG tablet TAKE 1 TABLET [...] tablet 1 09/09/2020 3 PARoxetine 20 MG tablet 10 mg. 01/03/2020 1 potassium chloride CR 20 MEQ tablet TAKE 2 TABLETS EVERY MORNING AND 2 TABLETS EVERY EVENING 01/04/2020 4 documented as of this encounter ED Notes * Dmitry Bennett RN - 03/16/2021 11:35 AM CDT Patient to CT * Jordan Manuel MD - 03/16/2021 10:04 AM CDT [facility] Emergency Department Note Chief Complaint Chief Complaint Patient presents with ??? Abdominal Pain History of Present Illness 70-year-old white female presents emerge department with complaining of abdominal pain. Pain is cramping in nature. Started 3 to 4 days ago. No nausea or vomiting. Is experiencing some diarrhea. States she was diagnosed with irritable bowel syndrome approximately 2 years ago. No chest pain or palpitation. No shortness of breath or cough. No fevers or chills. Normal appetite. Slight discomfort with urination. Patient primary care provider is Gabriel Persaud in [place]. 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 Patient is allergies to latex sulfa levof loxacin and nitrofurantoin. Medications are filled at [facility] in [place] include Eliquis atorvastatin abatacept dicyclomine. Previous surgery includes appendectomy hysterectomy tonsillectomy. Patient does not smoke. Rarely drinks alcohol. Patient lives with her of 51 years. Family history of hypertension diabetes heart disease Medical History ALLERGIES: Allergies Allergen Reactions ??? Latex Rash ??? Sulfa Antibiotics Swelling ??? Levofloxacin Headache and Nausea Only ??? Nitrofurantoin Headache MEDICATIONS: Prior to Admission medications Medication Sig Start Date End Date Taking? Authorizing Provider amoxicillin-clavulanate (AUGMENTIN) 875-125 MG tablet Take 1 tablet (875 mg total) by mouth 2 (two)times daily for 10 days. 03/16/21 03/26/21 Yes Jordan Manuel MD abatacept (ORENCIA) 250 MG injection 02/07/21 Gabriel Persaud MD albuterol sulfate HFA (VENTOLIN HFA) 108 (90 Base) MCG/ACT inhaler Inhale 2 puffs into the lungs every 4 (four) hours as needed for Wheezing. 11/29/20 Gabriel Persaud MD apixaban (ELIQUIS) 5 MG tablet TAKE 1 TABLET BY MOUTH TWICE A DAY 03/07/20 [facility] atorvastatin 80 MG tablet TAKE 1 TABLET BY MOUTH EVERY DAY 05/26/19 Doc [facility] AZELASTINE 0.1 % nasal spray INSTILL 1 SPRAY INTO EACH NOSTRIL DIRECTED 2 TIMES PER DAY 01/10/21 MD Jefferson Shah-D 3CC LUER-KAILASH SYR 22GX1 22G X 1 3 ML Misc USE ONCE A MONTH DIRECTED WITH METHOTREXATE 11/25/19 Doc Abstract B-D INSULIN SYRINGE 1CC/25G 25G X 5/8 1 ML Misc USE DIRECTED FOR 90 DAYS 09/01/20 Doc Abstract BD INTEGRA SYRINGE 25G X 1 3 ML Misc USE DIRECTED FOR 90 DAYS 02/19/20 Doc [facility] bisoprolol 5 MG tablet TAKE 1 TABLET BY MOUTH EVERY DAY 03/22/20 Doc Abstract calcium carbonate 600 MG tablet Take by mouth daily. Doc Abstract calcium carbonate-vitamin D (OSCAL 500/200 D-3) 500-200 MG-UNIT Tab Take by mouth daily. Doc [facility] Cholecalciferol (VITAMIN D3) 50 MCG (2000 UT) Cap take 1 by Oral route every day 11/30/14 Doc Abstract Cholecalciferol (VITAMIN D3) 50 MCG (2000 UT) Cap daily. Doc Abstract DICYCLOMINE 10 MG capsule TAKE 1 CAPSULE BY MOUTH FOUR TIMES A DAY BEFORE MEALS AND NIGHTLY FOR 30 DAYS 01/23/21 Gabriel Persaud MD etodolac 400 MG tablet Doc [facility] fluticasone 110 MCG/ACT inhaler Inhale 2 puffs into the lungs 2 (two) times daily. 03/31/19 Doc Abstract folic acid 1 MG tablet Take 1 mg by mouth daily. 05/14/18 Doc [facility] furosemide 20 MG tablet TAKE 1 TABLET BY MOUTH EVERY DAY 06/16/19 Doc Abstract HYDROCHLOROTHIAZIDE 25 MG tablet TAKE 1 TABLET BY MOUTH EVERY DAY 12/27/20 Gabriel Persaud MD hydroxychloroquine 200 MG tablet Take 200 mg by mouth 2 (two) times daily. 05/14/18 Doc Abstract leflunomide 20 MG tablet Take 20 mg by mouth daily. Doc Abstract methotrexate 50 MG/2ML injection INJECT 0.8 MILLILITER ONCE A WEEK FOR 90 DAYS 02/17/20 Doc Abstract metoprolol succinate ER 50 MG 24 hr tablet metoprolol succinate ER 50 mg tablet,extended release 24hr Doc Abstract metoprolol tartrate 25 MG tablet Doc Abstract montelukast 10 MG tablet TAKE 1 TABLET BY MOUTH EVERY DAY EVERY NIGHT 02/16/20 Doc Abstract nitroglycerin 0.4 MG SL tablet May repeat dose every 5 minutes for up to 3 doses total. 05/23/18 [facility] omeprazole EC 20 MG Tab EC tablet omeprazole 20 mg capsule,delayed release Doc Abstract ondansetron 4 MG disintegrating tablet DISSOLVE 1 TABLET IN MOUTH 10 MINUTES PRIOR TO EACH PREP DOSE NEEDED FOR NAUSEA 11/02/19 Doc Abstract PANTOPRAZOLE EC 40 MG tablet TAKE 1 TABLET BY MOUTH TWICE A DAY 09/09/20 Gabriel Persaud MD PARoxetine 20 MG tablet 10 mg. 01/03/20 Doc Abstract potassium chloride CR 20 MEQ tablet TAKE 2 TABLETS EVERY MORNING AND 2 TABLETS EVERY EVENING 01/04/20Doc Abstract PAST MEDICAL HISTORY: Past Medical History: [...] Heart Disease Mother ??? Other (lungs) Father SOCIAL HISTORY: Social History Tobacco Use ??? Smoking status: Never Smoker ??? Smokeless tobacco: Never Used Substance Use Topics ??? Alcohol use: Yes Comment: up 2 glasses of wine/month ??? Drug use: Never Review of Systems Review of Systems Constitutional: Negative for chills and fever. HENT: Negative for congestion, rhinorrhea and sore throat. Eyes: Negative for photophobia. Respiratory: Negative for cough, shortness of breath and wheezing. Cardiovascular: Negative for chest pain, palpitations and leg swelling. Gastrointestinal: Positive for abdominal pain. Negative for constipation, diarrhea, nausea and vomiting. Crampy abdominal pain intermittently past 3 to 4 days Endocrine: Negative for polydipsia and polyuria. Genitourinary: Negative for dysuria and frequency. Musculoskeletal: Negative for back pain, neck pain and neck stiffness. Skin: Negative for pallor and rash. Allergic/Immunologic: Negative for immunocompromised state. Neurological: Negative for syncope, light-headedness, numbness and headaches. Hematological: Does not bruise/bleed easily. Psychiatric/Behavioral: Negative for suicidal ideas. Physical Exam Filed Vitals: 03/16/21 1008 03/16/21 1148 BP: 111/69 116/62 Pulse: 71 Resp: 18 16 Temp: 97.3 ??F (36.3 ??C) 97.8 ??F (36.6 ??C) TempSrc: Temporal Temporal SpO2: 96% 97% Weight: 68.9 kg (152 lb) Height: 5' (1.524 m) Physical Exam Constitutional: She is oriented to person, place, and time. She appears well- developed and well-nourished. No distress. HENT: Head: Normocephalic and atraumatic. Right Ear: External ear normal. Left Ear: External ear normal. Eyes: Pupils are equal, round, and reactive to light. Conjunctivae and EOM are normal. No scleral icterus. Neck: No JVD present. Cardiovascular: Normal rate, regular rhythm, normal heart sounds and intact distal pulses. Exam reveals no gallop and no friction rub. No murmur heard. Pulmonary/Chest: Effort normal and breath sounds normal. No stridor. No respiratory distress. She has no wheezes. She has no rales. She exhibits no tenderness. Abdominal: Soft. Bowel sounds are normal. She exhibits no distension and no mass. There is abdominal tenderness. There is no rebound and no guarding. Left lower quadrant tenderness also tender suprapubically. No CVA tenderness. No rebound no guarding. No acute abdomen Musculoskeletal: General: No deformity or edema. Normal range of motion. Cervical back: Normal range of motion and neck supple. Neurological: She is alert and oriented to person, place, and time. Skin: Skin is warm and dry. No rash noted. Psychiatric: She has a normal mood and affect. Her behavior is normal. Judgment and thought contentnormal. Nursing note and vitals reviewed. Diagnostic Studies / Procedures ELECTROCARDIOGRAMS: No results found for this visit on 03/16/21. LABORATORY STUDIES: Results for orders placed or performed during the hospital encounter of 03/16/21 CBC W/DIFF AUTOMATED Result Value Ref Range WBC 7.2 4.4 - 11.0 x10'3/uL RBC 4.58 4.50 - 5.10 x10'6/uL HGB 13.2 12.3 - 15.3 G/DL HCT 41.5 35.9 - 44.6 % MCV 90.6 80.0 - 96.0 FL MCH 28.8 25.3 - 30.9 PG MCHC 31.8 31.0 - 34.1 G/DL RDW 14.7 12.4 - 15.1 % PLT 228 151 - 353 x10'3/uL MPV 9.4 (L) 9.6 - 12.0 FL RBC MORPHOLOGY NORMAL PLT MORPH. NORMAL WBC MORPHOLOGY NORMAL LYMPHOCYTES 18.6 15.8 - 45.0 % NEUTROPHILS 66.0 42.1 - 71.9 % MONOCYTES 11.4 5.7 - 12.5 % EOSINOPHILS 3.1 0.0 - 5.6 % BASOPHILS 0.8 0.0 - 1.3 % ABS. NEUTROPHILS TOTAL 4.75 1.40 - 6.00 x10'3/uL IMMATURE GRANS 0.1 0.0 - 0.5 % ABS. LYMPHOCYTES 1.34 0.80 - 4.70 x10'3/uL COMPREHENSIVE METABOLIC PANEL Result Value Ref Range GLUCOSE 110 (H) 70 - 99 MG/DL BUN 17 7 - 18 MG/DL CREATININE S/P/B 0.93 0.55 - 1.02 MG/DL SODIUM 144 136 - 145 MMOL/L POTASSIUM 4.0 3.5 - 5.1 MMOL/L CHLORIDE S/P/B 107 100 - 108 MMOL/L CO2 30.0 21 - 32 MMOL/L CALCIUM 9.1 8.5 - 10.1 MG/DL BILIRUBIN TOTAL S/P/B 0.5 0.2 - 1.2 MG/DL TOTAL PROTEIN S/P/B 6.8 6.4 - 8.2 G/DL ALBUMIN S/P/B 3.6 3.4 - 5.0 G/DL AST 35 15 - 37 U/L ALT 35 14 - 55 U/L ALKALINE PHOSPHATASE S/P/B 88 50 - 136 U/L ANION GAP 7.0 5 - 15 MMOL/L BUN CREATININE RATIO 18.3 6 - 26 A/G RATIO 1.1 1.0 - 2.0 RATIO eGFR Non-Afr. Amer. 61 (L) >90 ML/MIN/1.73 M2 eGFR Afr. Amer. 71 (L) >90 ML/MIN/1.73 M2 LIPASE Result Value Ref Range LIPASE 245 73 - 393 UNITS/L URINALYSIS, AUTO, COMPLETE Result Value Ref Range COLOR (U) YELLOW TRANSPARENCY HAZY Specific [place] (U) 1.025 1.000 - 1.030 U PH 6.0 5.0 - 9.0 LEUKOCYTE ESTERASE 2+ (A) NEGATIVE NITRITES NEGATIVE NEGATIVE PROTEIN (U) NEGATIVE NEGATIVE URINE GLUCOSE NEGATIVE NEGATIVE U KETONES NEGATIVE NEGATIVE BILIRUBIN (U) NEGATIVE NEGATIVE BLOOD 1+ (A) NEGATIVE WBC/HPF 5-10 0 - 5 /HPF RBC/HPF 0-5 0 - 5 /HPF EPI/HPF FEW /HPF CULTURE & SENSITIVITY INDICATED? SPECIMEN SETUP FOR CULTURE IMAGING STUDIES CT ABD+PEL W IV CON ONLY Final Result by User, [id number] (03/16 1203) IMAGING STUDIES: CT ABD+PEL W CON DATE: 03/16/2021 11:25 AM CLINICAL HISTORY: Tender left lower quadrant. Symptoms since Saturday Abdominal abscess/infection suspected . COMPARISON STUDIES: No previous available. TECHNIQUE: Helical axial images were acquired from the lung bases to the symphysis pubis after the administration of intravenous contrast. Sagittal and coronal reconstructions were created. Radiation dose reduction technique was utilized. CONTRAST: 75 cc Isovue 370 IV. FINDINGS AND IMPRESSION: LOWER CHEST: 1. Lungs bases are grossly clear. No pleural effusion. ABDOMEN: 1. Hepatobiliary: No obvious focal lesions. Normal appearing gallbladder. 2. Spleen: No lesions, no splenomegaly. 3. Pancreas: No focal lesions. 4. Adrenal glands: No focal lesions. 5. Kidneys: No focal lesions. No hydronephrosis or nephrolithiasis.Small bilateral subcentimeter renal cysts. 6. Retroperitoneal and mesenteric space: The visible lymph nodes do not appear pathologically enlarged. 7. Stomach and bowel: Small sliding hiatal hernia. . 8. Aorta: No significant atherosclerotic disease or aneurysmal dilation. PELVIS: 1. Appendix: Not pathologically distended. 2. Colon and rectum: Moderate amount of stool throughout the colon, mucosal edema and surrounding fat stranding of the rectum suggestive of proctitis with a transition zone in the distal sigmoid-proximal rectum, cannot exclude malignancy. 3. Genitourinary: Post hysterectomy. No stones or abnormal bladder wall thickening. 4. Pelvic space: Small amount of free fluid in the pelvis. BONES AND OTHER INCIDENTAL FINDINGS: 1. Bones: Degenerative changes of the lumbar spine worse at L2-3, L3-4. Voice recognition software utilized. Referred By: JORDAN MANUEL Interpreted By: Kike Garcia, 03/16/2021 11:55 AM ED Course / Medical Decision Making MDM Number of Diagnoses or Management Options Diagnosis management comments: Differential diagnosis: Diverticulitis Constipation UTI Amount and/or Complexity of Data Reviewed Clinical lab tests: ordered and reviewed Tests in the radiology section of CPT??: ordered and reviewed Risk of Complications, Morbidity, and/or Mortality Presenting problems: moderate Diagnostic procedures: moderate Management options: moderate ED Course as of Mar 16 1224 Lynda Mar 16, 2021 1222 Patient and requests referral to on-call primary care provider and on-call car restorer. [CA] ED Course User Index [CA] Jordan Manuel MD Medications iopamidol (ISOVUE-370) 76 % injection 75 mL (75 mLs Intravenous Given 03/16/21 1137) Clinical Impression Abdominal pain (Primary) Proctitis Current Discharge Medication List START taking these medications Details amoxicillin-clavulanate (AUGMENTIN) 875-125 MG tablet Take 1 tablet (875 mg total) by mouth 2 (two)times daily for 10 days. Qty: 20 tablet, Refills: 0 Class: Eprescribe Pharmacy: [facility]/pharmacy #[id number] ( #: [phone]) Disposition: Discharge Voice recognition software used. [place]: [place] [id number] [place] [phone] In 3 [place] [id number] [address] [address] [phone] Jordan Manuel MD 03/16/2021 Jordan Manuel MD 03/16/21 1943 * Dmitry Bennett RN - 03/16/2021 9:57 AM CDT Patient presents to the ED for evaluation due to reports of abdominal cramping with difficulty having BM over the last three days. She states that symptoms began approximately a week ago with loose stools that she described as stringy. She reports that this seemed self resolve and she reports last normal BM was on Saturday. She began to have constipation only able to pass a marble over the last few days even though she has the urge to go. She also reports passing mucous and having gas movement when trying to have BM. She reports waves of cramps that she describes as labor pain. She reports some discomfort and urgency with urination. She does not report any other complaints to me at this time. Pertinent history reported of IBS. documented in this encounter Plan of Treatment Upcoming Encounters Date Type Department Care Team (Late st Contact Info) Description 10/02/2024 11:40 AM POWER PLANT SUPERINTENDENT Office Visit [facility] [address] [place] [id number] Johnnie Lr MD [address] [place] [address] 01/04/2025 9:50 AM CDT Office Visit [facility] [place] [address] [place] [address] Emily Jordan MD [address] [place] [address] documented as of this encounter Procedures Procedure Name Priority Date/Time Associated Diagnosis Comments CT ABD+PEL W CON STAT 03/16/2021 11:4 8 AM CDT URINE BACTERIA CULTURE Routine 11:06 AM CDT URINALYSIS, AUTO, COMPLETE STAT 03/16/2021 11:06 AM CDT COMPREHENSIVE METABOLIC PANEL STAT 03/16/2021 10:18 AM CDT CBC W/DIFF AUTOMATED STAT 03/16/2021 10:18 AM CDT LIPASE STAT 03/16/2021 10:18 AM CDT documented in this encounter Results * CT ABD+PEL W IV CON ONLY (03/16/2021 11:48 AM CDT) Anatomical Region Laterality Modality Abdomen Computed Tomogra phy 03/16/2021 11:5 5 AM CDT Impressions 03/16/2021 12:00 PM CDT FINDINGS AND IMPRESSION: LOWER CHEST: 1. ??Lungs bases are grossly clear. No pleural effusion. ABDOMEN: 1. ??Hepatobiliary: No obvious focal lesions. Normal appearing gallbladder. 2. ??Spleen: No lesions, no splenomegaly. 3. ??Pancreas: No focal lesions. 4. ??Adrenal glands: No focal lesions. 5. ??Kidneys: No focal lesions. No hydronephrosis or nephrolithiasis.Small bilateral subcentimeter renal cysts. 6. ??Retroperitoneal and mesenteric space: The visible lymph nodes do not appear pathologically enlarged. 7. ??Stomach and bowel: Small sliding hiatal hernia. . 8. ??Aorta: No significant atherosclerotic disease or aneurysmal dilation. PELVIS: 1. ??Appendix: Not pathologically distended. 2. ??Colon and rectum: Moderate amount of stool throughout the colon, mucosal edema and surrounding fat stranding of the rectum suggestive of proctitis with a transition zone in the distal sigmoid-proximal rectum, cannot exclude malignancy. 3. ??Genitourinary: Post hysterectomy. No stones or abnormal bladder wall thickening. 4. ??Pelvic space: Small amount of free fluid in the pelvis. BONES AND OTHER INCIDENTAL FINDINGS: 1. ??Bones: Degenerative changes of the lumbar spine worse at L2-3, L3-4. Voice recognition software utilized. Referred By: JORDAN MANUEL Interpreted By: Kike Garcia, 03/16/2021 11:55 AM Narrative 03/16/2021 12:00 PM CDT IMAGING STUDIES: ?? CT ABD+PEL W CON ? DATE: ??03/16/2021 11:25 AM CLINICAL HISTORY: ??Tender left lower quadrant. ??Symptoms since Saturday Abdominal abscess/infection suspected ?? . COMPARISON STUDIES: No previous available. ?? TECHNIQUE: ??Helical axial images were acquired from the lung bases to the symphysis pubis after the administration of intravenous contrast. ??Sagittal and coronal reconstructions were created. Radiation dose reduction technique was utilized. CONTRAST: 75 cc Isovue 370 IV. Procedure Note Kike Garcia MD - 03/16/2021 IMAGING STUDIES: CT ABD+PEL W CON DATE: 03/16/2021 11:25 AM CLINICAL HISTORY: Tender left lower quadrant. Symptoms since Saturday Abdominal abscess/infection suspected . COMPARISON STUDIES: No previous available. TECHNIQUE: Helical axial images were acquired from the lung bases to thesymphysis pubis after the administration of intravenous contrast.Sagittal and coronal reconstructions were created. Radiation dosereduction technique was utilized. CONTRAST: 75 cc Isovue 370 IV. FINDINGS AND IMPRESSION: LOWER CHEST: 1. Lungs bases are grossly clear. No pleural effusion. ABDOMEN: 1. Hepatobiliary: No obvious focal lesions. Normal appearinggallbladder. 2. Spleen: No lesions, no splenomegaly. 3. Pancreas: No focal lesions. 4. Adrenal glands: No focal lesions. 5. Kidneys: No focal lesions. No hydronephrosis or nephrolithiasis.Smallbilateral subcentimeter renal cysts. 6. Retroperitoneal and mesenteric space: The visible lymph nodes do notappear pathologically enlarged. 7. Stomach and bowel: Small sliding hiatal hernia. . 8. Aorta: No significant atherosclerotic disease or aneurysmaldilation. PELVIS: 1. Appendix: Not pathologically distended. 2. Colon and rectum: Moderate amount of stool throughout the colon,mucosal edema and surrounding fat stranding of the rectum suggestive ofproctitis with a transition zone in the distal sigmoid-proximal rectum,cannot exclude malignancy. 3. Genitourinary: Post hysterectomy. No stones or abnormal bladder wallthickening. 4. Pelvic space: Small amount of free fluid in the pelvis. BONES AND OTHER INCIDENTAL FINDINGS: 1. Bones: Degenerative changes of the lumbar spine worse at L2-3, L3-4. Voice recognition software utilized. Referred By: JORDAN MANUEL Interpreted By: Kike Garcia, 03/16/2021 11:55 AM Jordan Manuel MD CT Final Result * (ABNORMAL) CULTURE URINE (03/16/2021 11:06 AM CDT) SPEC DESCRIPTION URINE CLEAN CATCH 03/16/2021 11:54 AM CDT [facility] SPECIAL REQUESTS NO SPECIAL REQUEST 03/16/2021 11:54 AM CDT [facility] CULTURE RESULT 50,000-100, 000 COL/ML ENTEROCOCCU S SPECIES (A) 03/18/2021 10:38 AM CDT [facility] URINE SPECIMEN OBTAINED BY CLEAN CATCH PROCEDURE / Unknown 03/16/2021 11:06 AM CDT 03/16/2021 11:54 AM CDT Narrative Organism Antibiotic Method Susceptibility Enterococcus species AMPICILLIN LILO (VITEK) <=2: Sensitive Enterococcus species NITROFURANTOIN LILO (VITEK) <=16: Sensitive Enterococcus species GENT. SYNERGY SCREEN LILO (VITEK) Sensitive Enterococcus species PENICILLIN G LILO (VITEK) 2: Sensitive Jordan Manuel MD MICROBIOLOGY - GENERAL ORDERAB LES Final Result [facility] [address] [place] [address], [place] [phone] [facility] [address] [place] [address], [place] [phone] * (ABNORMAL) URINALYSIS, AUTO, COMPLETE (03/16/2021 11:06 AM CDT) COLOR (U) YELLOW 03/16/2021 11:53 AM T [facility] TRANSPARENCY HAZY 03/16/2021 11:53 AM T [facility] SPECIFIC GRAVITY (U) 1.025 1.000 - 1.030 03/16/2021 11:53 AM T [facility] U PH 6.0 5.0 - 9.0 03/16/2021 11:53 AM T [facility] LEUKOCYTES (U) 2+(A) NEGATIVE 03/16/2021 11:53 AM T [facility] NITRITES NEGATIVE NEGATIVE 03/16/2021 11:53 AM T [facility] PROTEIN (U) NEGATIVE NEGATIVE 03/16/2021 11:53 AM T [facility] URINE GLUCOSE NEGATIVE NEGATIVE 03/16/2021 11:53 AM T [facility] KETONES MG/DL (U) NEGATIVE NEGATIVE 03/16/2021 11:53 AM [facility] BILIRUBIN (U) NEGATIVE NEGATIVE 03/16/2021 11:53 AM T [facility] BLOOD (U) 1+(A) NEGATIVE 03/16/2021 11:53 AM T [facility] WBC/HPF 5-10 0 - 5 /HPF 03/16/2021 11:53 AM T [facility] RBC/HPF 0-5 0 - 5 /HPF 03/16/2021 11:53 AM T [facility] EPI/HPF FEW /HPF 03/16/2021 11:53 AM T [facility] CULTURE & SENSITIVITY INDICATED? SPECIMEN SETUP FOR CULTURE 03/16/2021 11:53 AM CDT [facility] URINE SPECIMEN OBTAINED BY CLEAN CATCH PROCEDURE / Unknown 03/16/2021 11:06 AM CDT us Jordan Manuel MD URINE ORDERABLES Final Result Performing Organization Address [facility]/ZIP Co de Phone Number [facility] [address] [place] [address], [place] [phone] * LIPASE (03/16/2021 10:18 AM CDT) LIPASE 245 73 - 393 UNITS/L 03/16/2021 10:38 AM CDT [facility] 03/16/2021 10:1 8 AM CDT us Jordan Manuel MD LABORATORY Final Result Performing Organization Address [facility] Co de Phone Number [facility] [address] [place] [address], [place] [phone] * (ABNORMAL) COMPREHENSIVE METABOLIC PANEL (03/16/2021 10:18 AM CDT) GLUCOSE 110(H) 70 - 99 MG/DL 03/16/2021 10:38 AM CDT [facility] BUN 17 7 - 18 MG/DL 03/16/2021 10:38 AM CDT [facility] CREATININE S/P/B 0.93 0.55 - 1.02 MG/DL 03/16/2021 10:38 AM CDT [facility] SODIUM S/P/B 144 136 - 145 MMOL/L 03/16/2021 10:38 AM CDT [facility] POTASSIUM S/P/B 4.0 3.5 - 5.1 MMOL/L 03/16/2021 10:38 AM CDT [facility] CHLORIDE S/P/B 107 100 - 108 MMOL/L 03/16/2021 10:38 AM [facility] CO2 30.0 21 - 32 MMOL/L 03/16/2021 10:38 AM [facility] CALCIUM S/P/B 9.1 8.5 - 10.1 MG/DL 03/16/2021 10:38 AM [facility] BILIRUBIN TOTAL S/P/B 0.5 0.2 - 1.2 MG/DL 03/16/2021 10:38 AM [facility] TOTAL PROTEIN S/P/B 6.8 6.4 - 8.2 G/DL 03/16/2021 10:38 AM [facility] ALBUMIN S/P/B 3.6 3.4 - 5.0 G/DL 03/16/2021 10:38 AM [facility] AST 35 15 - 37 U/L 03/16/2021 10:38 AM [facility] ALT 35 14 - 55 U/L 03/16/2021 10:38 AM [facility] ALKALINE PHOSPHATASE S/P/B 88 50 - 136 U/L 03/16/2021 10:38 AM [facility] ANION GAP 7.0 5 - 15 MMOL/L 03/16/2021 10:38 AM [facility] BUN CREATININE RATIO 18.3 6 - 26 03/16/2021 10:38 AM [facility] A/G RATIO 1.1 1.0 - 2.0 RATIO 03/16/2021 10:38 AM [facility] EGFR NON-AFR. AMER. 61(L) >90 ML/MIN/1.7 3 M2 03/16/2021 10:38 AM [facility] EGFR AFR. AMER. 71(L) >90 ML/MIN/1.7 3 M2 03/16/2021 10:38 AM CDT [facility] Comment: NOTE: eGFR is not calculated for patients <18 years of age. This is an estimated GFR (CKD EPI) and should not be used for calculating drug doses. 03/16/2021 10:1 8 AM CDT Jordan Manuel MD LABORATORY Final Result [facility] [address] [place] [address], * (ABNORMAL) CBC W/DIFF AUTOMATED (03/16/2021 10:18 AM CDT) WBC 7.2 4.4 - 11.0 x10'3/uL 03/16/2021 10:25 AM CDT [facility] RBC 4.58 4.50 - 5.10 x10'6/uL 03/16/2021 10:25 AM CDT [facility] HGB 13.2 12.3 - 15.3 G/DL 03/16/2021 10:25 AM CDT [facility] HCT 41.5 35.9 - 44.6 % 03/16/2021 10:25 AM CDT [facility] MCV 90.6 80.0 - 96.0 FL 03/16/2021 10:25 AM CDT [facility] MCH 28.8 25.3 - 30.9 PG 03/16/2021 10:25 AM CDT [facility] MCHC 31.8 31.0 - 34.1 G/DL 03/16/2021 10:25 AM CDT [facility] RDW 14.7 12.4 - 15.1 % 03/16/2021 10:25 AM T [facility] PLT 228 151 - 353 x10'3/uL 03/16/2021 10:25 AM T [facility] MPV 9.4(L) 9.6 - 12.0 FL 03/16/2021 10:25 AM T [facility] RBC MORPHOLOGY NORMAL 03/16/2021 10:25 AM T [facility] PLT MORPH. NORMAL 03/16/2021 10:25 AM T [facility] WBC MORPHOLOGY NORMAL 03/16/2021 10:25 AM T [facility] LYMPHOCYTES % 18.6 15.8 - 45.0 % 03/16/2021 10:25 AM T [facility] NEUTROPHILS % 66.0 42.1 - 71.9 % 03/16/2021 10:25 AM T [facility] MONOCYTES % 11.4 5.7 - 12.5 % 03/16/2021 10:25 AM T [facility] EOSINOPHILS 3.1 0.0 - 5.6 % 03/16/2021 10:25 AM [facility] BASOPHILS 0.8 0.0 - 1.3 % 03/16/2021 10:25 AM T [facility] ABS. NEUTROPHILS TOTAL 4.75 1.40 - 6.00 x10'3/uL 03/16/2021 10:25 AM T [facility] IMMATURE GRANS % 0.1 0.0 - 0.5 % 03/16/2021 10:25 AM [facility] ABS. LYMPHOCYTES 1.34 0.80 - 4.70 x10'3/uL 03/16/2021 10:25 AM [facility] 03/16/2021 10:1 8 AM CDT Jordan Manuel MD LABORATORY Final Result [facility] [address] [place] [address], [place] [phone] documented in this encounter Visit Diagnoses Diagnosis Abdominal pain- Primary Abdominal pain, unspecified site Proctitis Other specified disorder of rectum and anus documented in this encounter Administered Medications Inactive Administered Medications - up to 3 most recent administrations Medication Order MAR Action Action Date Dose Rate Site iopamidol (ISOVUE-370) 76 % injection 75 mL 75 mL, Intravenous, IMG once as needed, Contrast, 1 dose, Starting on Lynda 03/16/21 at 1148, Until Lynda 03/16/21 at 1137 Given 03/16/2021 11:37 AM CDT 75 mLs Left Arm documented in this encounter Active and Recently Administered Medications Times are shown in CDT. PRN Medication Order 03/14/2021 03/15/2021 03/16/2021 iopamidol (ISOVUE-370) 76 % injection 75 mL (COMPLETED) 75 mL, Intravenous, IMG once as needed, Contrast, 1 dose, Starting on Lynda 03/16/21 at 1148, Until Lynda 03/16/21 at 1137 1137 (Given - Provid er: Laine Moe, RTR) documented in this encounter Care Teams Plaster Mixer Relationship Specialty Start Date End Date Monserrat Wilson NP [address] [place] [address] PCP - General NURSE PRACTITIONER 03/16/21 05/14/21 [place] [address] [facility]. [address] [address] RHEUMATOLOGY 09/27/20 documented as of this encounter
--- OUTSIDE RECORDS SUMMARY | 2024-08-29 10:00 | XMS_ITS | Encounter Summary ---
Author Organization [facility] Address [address] [place] [address]. [place] [address] [place] [address] Care Team Providers Care Cement Side Laster Name Role Phone Gabriel Persaud MD Primary Care Provider Gladis Cevallos MD Unavailable Reason for Visit * Reason Onset Date Comments Health Maintenance Follow Up 09/28/2020 Req uest for colonoscopy records Encounter Details Date Type Department Care Team (Late st Contact Info) Description 09/28/2020 Telephone [facility] Family Medicine [facility] [address] [address] Gabriel Persaud MD Health Maintenance Follow Up (Request for colonoscopy records) Social History Tobacco Use Types Packs/Day Years [...] on file Legal Sex Female 10:22 PM INFORMATION SERVICES ASSISTANT Gender Identity Female 09/12/2021 9:51 AM INFORMATION SERVICES ASSISTANT Sexual Orientation Straight 09/12/2021 9: 51 AM INFORMATION SERVICES ASSISTANT COVID-19 Exposure Response Date Recorded In the last month, have you been in contact with someone who was confirmed or suspected to have Coronavirus / COVID-19? No / Unsure 09/27/2020 11:04 AM INFORMATION SERVICES ASSISTANT documented as of this encounter Progress Notes * Yancy Kline RN - 09/28/2020 12:55 PM CST Telephone call placed to [facility]. Nurse left a message for Health Information Management requesting a copy of the report from her colonoscopy from 2019 be faxed to our office. RMATION SERVICES ASSISTANT documented in this encounter Plan of Treatment Upcoming Encounters Date Type Department Care Team (Late st Contact Info) Description 10/02/2024 11:40 AM INFORMATION SERVICES ASSISTANT Office Visit [facility] Multispecialty Care - [facility] [address] [facility] [place] [address] Johnnie Lr MD [address] [facility] [address] [place] [address] 01/04/2025 9:50 AM CDT Office Visit [facility] Family Medicine - [place] [address] [place] [address] Emily Jordan MD [address] [place] [address] documented as of this encounter Visit Diagnoses Not on filedocumented in this encounter Care Teams Cement Side Laster Relationship Specialty Start Date End Date Gabriel Persaud MD PCP - General FAMILY MEDICINE SPORTS MEDICINE 04/25/20 03/15/21 [place] [address] [facility]. [facility] [address] [place] [address] RHEUMATOLOGY 09/27/20 documented as of this encounter
--- OUTSIDE RECORDS SUMMARY | 2024-08-29 10:00 | XMS_ITS | Encounter Summary ---
Author Organization [facility] Address [address] [place] [address]. [place] [address] [place] [address] Care Team Providers Care River Driver Name Role Phone Gabriel Persaud MD Primary Care Provider Gladis Cevallos MD Unavailable Monserrat Wilson NP Primary Care Provider [phone] Reason for Visit * Reason Onset Date Comments Abdominal Pain 03/15/2021 Encounter Details Date Type Department Care Team (Late st Contact Info) Description 03/15/2021 Telephone [facility] Family Medicine - [place] [address] [facility] [address] [place] [address] Monserrat Wilson NP [address] [place] [address] Abdominal Pain Social History Tobacco Use Types Packs/Day Years [...] on file Legal Sex Female 10:22 PM RECORDER HELPER GRAVITY PROSPECTING Gender Identity Female 09/12/2021 9:51 AM RECORDER HELPER GRAVITY PROSPECTING Sexual Orientation Straight 09/12/2021 9: 51 AM RECORDER HELPER GRAVITY PROSPECTING COVID-19 Exposure Response Date Recorded In the last month, have you been in contact with someone who was confirmed or suspected to have Coronavirus / COVID-19? No / Unsure 03/16/2021 9:49 AM CDT documented as of this encounter Progress Notes * Juan Antonio Albert MA - 03/16/2021 9:45 AM CDT Patient going to ER * Seble Carter - 03/15/2021 10:19 AM CDT Is having an IBS flare up and has questions about medication. She is taking alosetron and dicyclomine and doesn't know if she is supposed to be taking. Needs triaged, I wasn't sure if she needs seen today or if I can schedule her for next week. I told her we would get back with her. documented in this encounter Plan of Treatment Upcoming Encounters Date Type Department Care Team (Late st Contact Info) Description 10/02/2024 11:40 AM RECORDER HELPER GRAVITY PROSPECTING Office Visit [facility] Multispecialty Care - [facility] [address] [facility] [place] [address] Johnnie Lr MD [address] [facility] [address] [place] [address] 01/04/2025 9:50 AM CDT Office Visit [facility] Family Medicine - [place] [address] [place], [place] [address] Emily Jordan MD [address] [place] [address] documented as of this encounter Visit Diagnoses Not on filedocumented in this encounter Care Teams River Driver Relationship Specialty Start Date End Date Gabriel Persaud MD PCP - General FAMILY MEDICINE SPORTS MEDICINE 04/25/20 03/15/21 Monserrat Wilson NP [address] [place] [address] PCP - General NURSE PRACTITIONER 03/16/21 05/14/21 [place] [address] [facility]. [address] [address] RHEUMATOLOGY 09/27/20 documented as of this encounter
--- OUTSIDE RECORDS SUMMARY | 2024-08-29 10:00 | XMS_ITS | Encounter Summary ---
Author Organization [facility] Address [address] [place] [address]. [place] [address] [place] [address] Care Team Providers Care Pocket Builder Name Role Phone Gladis Song MD Unavailable Monserrat Wilson NP Primary Care Provider [phone] Reason for Referral * Imaging (Routine) - Closed Specialty Diagnoses / Procedures Referred By Contac t Referred To Contact RADIOLOGY Diagnoses Age-related osteoporosis without current pathological fracture Procedures BONE DENSITY/DEXA Siena Hope MD Phone: tel: fax: Referral ID Status Reason Start Date Expiration Date Visits Re quested Visits Authorized [id number] Closed 04/10/2021 05/10/2022 1 1 Reason for Visit * Reason Comments New Patient ESTABLISH CARE / AND OTHER ISSUES Encounter Details Date Type Department Care Team (Late st Contact Info) Description 04/10/2021 2:40 PM CDT Office Visit [facility] Family & Internal Medicine [address] [address] [place] [id number] [place] [id number] New Patient (ESTABLISH CARE / AND OTHER ISSUES ) Social History Tobacco Use Types Packs/Day [...] on file Legal Sex Female 10:22 PM PATTERN MARKING SUPERVISOR Gender Identity Female 09/12/2021 9:51 AM PATTERN MARKING SUPERVISOR Sexual Orientation Straight 09/12/2021 9: 51 AM PATTERN MARKING SUPERVISOR COVID-19 Exposure Response Date Recorded In the last month, have you been in contact with someone who was confirmed or suspected to have Coronavirus / COVID-19? No / Unsure 04/10/2021 2:24 PM CDT documented as of this encounter Last Filed Vital Signs Vital Sign Reading Time Taken Comments Blood Pressure 128/68 04/10/2021 2:46 PM CDT Pulse 66 04/10/2021 2:46 PM CDT Temperature 36.5 ??C (97.7 ??F) 04/10/2021 2:46 PM CD T Respiratory Rate 16 04/10/2021 2:46 PM CDT Oxygen Saturation 97% 04/10/2021 2:46 PM CDT Inhaled Oxygen Concentration - - Weight 69.3 kg (152 lb 12.8 oz) 04/10/2021 2:46 PM CDT Height 152.4 cm (5') 04/10/2021 2:46 PM CDT Body Mass Index 29.84 04/10/2021 2:46 PM CDT documented in this encounter Progress Notes * Siena Hope MD - 04/10/2021 2:40 PM CDT Reason for Visit: New Patient (ESTABLISH CARE / AND OTHER ISSUES ) HPI 70-year-old female here today to establish with a new physician, also has had a week or 2 of sinus congestion nasal drainage facial pressure postnasal drip and a little scratchy cough with occasionallight yellow secretions. She denies fever chills or body aches however she was worried that she wasnot getting better checked a Covid test which was negative since she was having worse congestion wanted to come in and see if she can get some antibiotics for a sinus infection. She is supposed to begoing on vacation however she canceled it for next week and would like to be feeling better by then. In 1974 she was diagnosed with lupus in [place] and since moving [facility] hasbeen seeing specialists over at [place]. 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 Zapata her GI in [place] after colonoscopy and EGD around 1999 1919. We had her on Bentyl as needed and she has been doing relatively well until last month when sheended up in the emergency room with abdominal pain. We treated her with Augmentin and Flagyl and she improved, they recommend she follow-up with her GI so she has an appointment for this. She has regular labs and follow-up and mammogram but is overdue for bone density scan and would like an order today. Review of Systems Constitutional: Positive for malaise/fatigue. HENT: Positive for congestion and sinus pain. Eyes: Negative. Respiratory: Positive for cough. Cardiovascular: Negative. Gastrointestinal: Positive for constipation and heartburn. IBS Musculoskeletal: Positive for joint pain. Rheumatoid arthritis on a biologic Skin: Negative. Neurological: Negative. Psychiatric/Behavioral: Negative. Current Outpatient Medications: ??? abatacept (ORENCIA) 250 MG injection, , Disp: 3 each, Rfl: ??? albuterol sulfate HFA (VENTOLIN HFA) 108 (90 Base) MCG/ACT inhaler, Inhale 2 puffs into the lungs every 4 (four) hours as needed for Wheezing., Disp: 8 g, Rfl: 3 ??? amoxicillin-clavulanate (AUGMENTIN) 875-125 MG tablet, Take 1 tablet (875 mg total) by mouth 2 (two) times daily for 10 days., Disp: 20 tablet, Rfl: 0 ??? apixaban (ELIQUIS) 5 MG tablet, TAKE [...] route every day, Disp: , Rfl: ??? DICYCLOMINE 10 MG [...] FOR 90 DAYS, Disp: , Rfl: ??? metoprolol succinate ER 50 MG 24 hr tablet, metoprolol succinate ER 50 mg tablet,extended release 24 hr, Disp: , Rfl: ??? montelukast 10 MG [...] Smoker ??? Smokeless tobacco: Never Used Substance and Sexual Activity ??? Alcohol use: Yes Comment: up 2 glasses of wine/month ??? Drug use: Never ??? Sexual activity: Not on file Other Topics Concern ??? Not on file Social History Narrative LIVE AT HOME WITH Social Determinants of Health Financial Resource Strain: ??? Difficulty of Paying Living Expenses: Food Insecurity: ??? Worried About Running Out of Food in the Last Year: ??? Ran Out of Food in the Last Year: Transportation Needs: ??? Lack of Transportation (Medical): ??? Lack of Transportation (Non-Medical): Physical Activity: ??? Days of Exercise per Week: ??? Minutes of Exercise per Session: Stress: ??? Feeling of Stress : Social Connections: ??? Frequency of Communication with Friends and Family: ??? Frequency of Social Gatherings with Friends and Family: ??? Attends [employer] Services: ??? Active Member of Clubs or Organizations: ??? Attends Club or Organization Meetings: ??? Marital Status: Intimate Partner Violence: ??? Fear of Current or Ex-Partner: ??? Emotionally Abused: ??? Physically Abused: ??? Sexually Abused: Family History Problem Relation Name Age of Onset ??? Heart Disease Mother ??? Other (lungs) Father Family Status Relation Name Status ??? Mother ??? Father Filed Vitals: 04/10/21 1446 BP: 128/68 Pulse: 66 Resp: 16 Temp: 97.7 ??F (36.5 ??C) TempSrc: Temporal SpO2: 97% Weight: 69.3 kg (152 lb 12.8 oz) Height: 5' (1.524 m) Body mass index is 29.84 kg/m??. Physical Exam Constitutional: She is oriented to person, place, and time. She appears well- developed and well-nourished. HENT: Head: Normocephalic. Slight congestion but no erythema of the TM Eyes: Pupils are equal, round, and reactive to light. Conjunctivae are normal. Cardiovascular: Normal rate, regular rhythm and normal heart sounds. Pulmonary/Chest: Effort normal and breath sounds normal. Abdominal: Soft. Bowel sounds are normal. Musculoskeletal: General: Normal range of motion. Cervical back: Neck supple. Neurological: She is alert and oriented to person, place, and time. No cranial nerve deficit. Skin: Skin is dry. Psychiatric: She has a normal mood and affect. Judgment normal. Assessment/PLAN 1. Subacute maxillary sinusitis - amoxicillin-clavulanate (AUGMENTIN) 875-125 MG tablet; Take 1 tablet (875 mg total) by mouth 2 (two) times daily for 10 days. Dispense: 20 tablet; Refill: 0 2. Age-related osteoporosis without current pathological fracture - BONE DENSITY/DEXA; Future COUNSELING: I spent 30 minutes today reviewing the patient's medical record, obtaining history, performing an exam, ordering medications, tests and/or procedures, documenting in the medical record, , counseling and educating the patient/family/caregiver. Reviewing and communicating test results & coordinati on of care. Sinusitis we will go ahead with Augmentin continue fluids and symptomatic therapy. Her lupus will continue with rheumatology. IBS continue with her special officer and hypertension/hyperlipidemia per her supervisor picking crew. She thinks she was on metoprolol and then changed to bisoprolol. Check bone density scan. Follow-up on a as needed basis Follow up FU PRN SIENA HOPE MD 04/10/2021 3:38 PM documented in this encounter Plan of Treatment Upcoming Encounters Date Type Department Care Team (Late st Contact Info) Description 10/02/2024 11:40 AM PATTERN MARKING SUPERVISOR Office Visit [facility] Multispecialty Care - [facility] [address] [facility] [place] [phone] Johnnie Lr MD [address] [facility] [address] [place] [address] 01/04/2025 9:50 AM CDT Office Visit [facility] Family Medicine - [place] [address] [place] [address] Emily Jordan MD [address] [place] [address] documented as of this encounter Results * BONE DENSITY/DEXA (05/15/2021 3:19 PM CDT) Anatomical Region Laterality Modality Bone Bone Density 05/15/2021 4:01 PM CDT Impressions 05/15/2021 4:02 PM CDT FINDINGS AND IMPRESSION: Examination performed on a [place] SL .: LUMBAR SPINE L2-L4: 1. BMD: [...] response. Voice recognition software utilized. Referred By: SIENA HOPE Interpreted By: Kike Garcia, 05/15/2021 4:01 [...] FINDINGS AND IMPRESSION: Examination performed on a [employer] SL .: LUMBAR SPINE L2-L4: 1. [...] response. Voice recognition software utilized. Referred By: SIENA HOPE Interpreted By: Kike Garcia, 05/15/2021 4:01 PM us Siena Hope MD DEXA Final Result documented in this encounter Visit Diagnoses Diagnosis Subacute maxillary sinusitis- Primary Acute maxillary sinusitis Age-related osteoporosis without current pathological fracture Senile osteoporosis Age-related osteoporosis without current pathological fracture Senile osteoporosis documented in this encounter Care Teams Pocket Builder Relationship Specialty Start Date End Date Monserrat Wilson NP [address] [place] [address] PCP - General NURSE PRACTITIONER 03/16/21 05/14/21 [place] [address] [facility]. [facility] [address] [place] [address] RHEUMATOLOGY 09/27/20 documented as of this encounter
--- OUTSIDE RECORDS SUMMARY | 2024-08-29 10:00 | XMS_ITS | Encounter Summary ---
Author Organization [facility] Address [address] [place] [address]. [place], [place] [address] [place] [address] Care Team Providers Care Half Section Ironer Name Role Phone Gabriel Persaud MD Primary Care Provider Gladis Cevallos MD Unavailable Encounter Details Date Type Department Care Team (Latest Contact Info) Description 11/28/2020 Travel Social History Tobacco Use Types Packs/Day [...] on file Legal Sex Female 10:22 PM ACTUARY Gender Identity Female 09/12/2021 9:51 AM ACTUARY Sexual Orientation Straight 09/12/2021 9: 51 AM ACTUARY COVID-19 Exposure Response Date Recorded In the last month, have you been in contact with someone who was confirmed or suspected to have Coronavirus / COVID-19? No / Unsure 11/28/2020 1:04 PM CDT documented as of this encounter Plan of Treatment Upcoming Encounters Date Type Department Care Team (Late st Contact Info) Description 10/02/2024 11:40 AM ACTUARY Office Visit [facility] Multispecialty Care [facility] [address] [facility] [place] [address] Johnnie Lr MD [address] [facility] [address] [place] [address] 01/04/2025 9:50 AM CDT Office Visit [facility] Family Medicine - [place] [address] [place] [address] Emily Jordan MD [address] [place], [place] [id number] documented as of this encounter Visit Diagnoses Not on filedocumented in this encounter Care Teams Half Section Ironer Relationship Specialty Start Date End Date Gabriel Persaud MD PCP - General FAMILY MEDICINE SPORTS MEDICINE 04/25/20 03/15/21 [place] [address] [place] [address] RHEUMATOLOGY 09/27/20 documented as of this encounter
--- OUTSIDE RECORDS SUMMARY | 2024-08-29 10:00 | XMS_ITS | Encounter Summary ---
Author Organization [facility] Address [address] [place] [address]. [place] [address] [place] [address] Care Team Providers Care Healthcare Consultant Name Role Phone Gabriel Persaud MD Primary Care Provider Gladis Cevallos MD Unavailable Encounter Details Date Type Department Care Team (Latest Contact Info) Description 10/20/2020 Scan HEALTH INFO SRVCS Scanned, Documents Social [...] file Legal Sex Female 10:22 PM SENIOR DATA WAREHOUSE ARCHITECT Gender Identity Female 09/12/2021 9:51 AM SENIOR DATA WAREHOUSE ARCHITECT Sexual Orientation Straight 09/12/2021 9: 51 AM SENIOR DATA WAREHOUSE ARCHITECT COVID-19 Exposure Response Date Recorded In the last month, have you been in contact with someone who was confirmed or suspected to have Coronavirus / COVID-19? No / Unsure 09/27/2020 11:04 AM SENIOR DATA WAREHOUSE ARCHITECT documented as of this encounter Plan of Treatment Upcoming Encounters Date Type Department Care Team (Late st Contact Info) Description 10/02/2024 11:40 AM SENIOR DATA WAREHOUSE ARCHITECT Office Visit [facility]pecialty Care - [facility] [address] [facility] [place] [address] Johnnie Lr MD [address] [facility] [address] [place] [address] 01/04/2025 9:50 AM CDT Office Visit [facility] Family Medicine - [place] [address] [place] [address] Emily Jordan MD [address] [place] [address] documented as of this encounter Visit Diagnoses Not on filedocumented in this encounter Care Teams Healthcare Consultant Relationship Specialty Start Date End Date Gabriel Persaud MD PCP - General FAMILY MEDICINE SPORTS MEDICINE 04/25/20 03/15/21 [place] [address] [facility] [address] [place] [address] RHEUMATOLOGY 09/27/20 documented as of this encounter
--- OUTSIDE RECORDS SUMMARY | 2024-08-29 10:00 | XMS_ITS | Encounter Summary ---
Author Organization [facility] Address [address] [place] [address]. [place] [address] [place] [address] Care Team Providers Care Graduate Assistant Athletic Trainer Name Role Phone Gladis Song MD Unavailable Siena Johnson MD Primary Care Provider [phone] Encounter Details Date Type Department Care Team (Latest Contact Info) Description 05/15/2021 Travel Social History Tobacco Use Types Packs/Day [...] on file Legal Sex Female 10:22 PM PANTRY ATTENDANT Gender Identity Female 09/12/2021 9:51 AM PANTRY ATTENDANT Sexual Orientation Straight 09/12/2021 9: 51 AM PANTRY ATTENDANT COVID-19 Exposure Response Date Recorded In the last month, have you been in contact with someone who was confirmed or suspected to have Coronavirus / COVID-19? No / Unsure 05/15/2021 3:02 PM CDT documented as of this encounter Plan of Treatment Upcoming Encounters Date Type Department Care Team (Late st Contact Info) Description 10/02/2024 11:40 AM PANTRY ATTENDANT Office Visit [facility] Multispecialty Care - [facility] 3 [facility] [address] [place] [address] Johnnie Lr MD [address] [facility] [address] [place] [address] 01/04/2025 9:50 AM CDT Office Visit [facility] Family Medicine - [facility] [address] [place] [address] Emily Jordan MD [address] [place] [address] documented as of this encounter Visit Diagnoses Not on filedocumented in this encounter Care Teams Graduate Assistant Athletic Trainer Relationship Specialty [place] [address] [place] [address] [address] PCP - General INTERNAL MEDICINE 05/15/21 09/28/21 [place] [address] [place] [address] [address] RHEUMATOLOGY 09/27/20 documented as of this encounter
--- OUTSIDE RECORDS SUMMARY | 2024-08-29 10:00 | XMS_ITS | Encounter Summary ---
Author Organization [facility] Address [address] [place] [address]. [place] [address] [place] [address] Care Team Providers Care Offc Spec Name Role Phone Gladis Song MD Unavailable Siean Johnson MD Primary Care Provider [phone] Encounter Details Date Type Department Care Team (Latest Contact Info) Description 09/08/2021 Travel Social History Tobacco Use Types Packs/Day [...] on file Legal Sex Female 10:22 PM ACCESS RN Gender Identity Female 09/12/2021 9:51 AM ACCESS RN Sexual Orientation Straight 09/12/2021 9: 51 AM ACCESS RN COVID-19 Exposure Response Date Recorded In the last month, have you been in contact with someone who was confirmed or suspected to have Coronavirus / COVID-19? Unable to assess 09/08/2021 7:36 AM ACCESS RN documented as of this encounter Plan of Treatment Upcoming Encounters Date Type Department Care Team (Late st Contact Info) Description 10/02/2024 11:40 AM ACCESS RN Office Visit [facility] - [facility] [address] [facility] [place] [address] Johnnie Lr MD 3 [facility] [address] [place] [address] 01/04/2025 9:50 AM CDT Office Visit [facility] Family Medicine - [place] [address] [place] [address] Emily Jordan MD [address] [place] [address] documented as of this encounter Visit Diagnoses Not on filedocumented in this encounter Additional Health Concerns Infection Onset Date Last Indicated Resolved Time COVID-19 Rule Out 09/08/2021 09/08/2021 09/08/2021 3:22 PM ACCESS RN COVID-19 Rule Out 09/08/2021 09/08/2021 09/08/2021 6:38 PM ACCESS RN COVID-19 Rule Out 09/08/2021 09/08/2021 09/09/2021 9:46 PM ACCESS RN documented as of this encounter Care Teams Offc Spec Relationship Specialty [place] [address] [facility] [address] [place] [address] PCP - General INTERNAL MEDICINE 05/15/21 09/28/21 [place] [address] [facility] [place] [address] RHEUMATOLOGY 09/27/20 documented as of this encounter
--- OUTSIDE RECORDS SUMMARY | 2024-08-29 10:00 | XMS_ITS | Encounter Summary ---
Author Organization [facility] Address [address] [place] [address]. [place] [address] [place] [address] Care Team Providers Care Towboat Captain Name Role Phone Gabriel Persaud MD Primary Care Provider Gladis Cevallos MD Unavailable Reason for Visit * Reason Onset Date Comments Medication Request 11/29/2020 Encounter Details Date Type Department Care Team (Late st Contact Info) Description 11/29/2020 Telephone [facility] Family Medicine - [place] [address] [address] Gabriel Persaud MD Medication Request [...] on file Legal Sex Female 10:22 PM CHECK CLERK Gender Identity Female 09/12/2021 9:51 AM CHECK CLERK Sexual Orientation Straight 09/12/2021 9: 51 AM CHECK CLERK COVID-19 Exposure Response Date Recorded In the last month, have you been in contact with someone who was confirmed or suspected to have Coronavirus / COVID-19? No / Unsure 11/28/2020 1:04 PM CDT documented as of this encounter Plan of Treatment Upcoming Encounters Date Type Department Care Team (Late st Contact Info) Description 10/02/2024 11:40 AM CHECK CLERK Office Visit [facility] Multispecialty Care - [facility] 3 [facility] [place] [address] Johnnie Lr MD 3 [facility] [address] [place] [address] 01/04/2025 9:50 AM CDT Office Visit [facility] Family Medicine - [place] [address] [place] [address] Emily Jordan MD [address] [place], [place] [address] documented as of this encounter Visit Diagnoses Diagnosis Shortness of breath- Primary documented in this encounter Care Teams Towboat Captain Relationship Specialty Start Date End Date Gabriel Persaud MD PCP - General FAMILY MEDICINE SPORTS MEDICINE 04/25/20 03/15/21 [place] [address] [facility] [address] [place] [address] RHEUMATOLOGY 09/27/20 documented as of this encounter
--- OUTSIDE RECORDS SUMMARY | 2024-08-29 10:00 | XMS_ITS | Encounter Summary ---
Author Organization [facility] Address [address] [place] [address]. [place] [address] [place] [address] Care Team Providers Care Smeller Name Role Phone Gladis Song MD Unavailable Siena Hope MD Primary Care Provider Reason for Visit * Reason Onset Date Comments Refill Request 07/24/2021 Encounter Details Date Type Department Care Team (Late st Contact Info) Description 07/24/2021 Telephone [facility] Family & Internal Medicine [facility] [address] [place] [address] Siena Hope MD [address] [place] [address] Refill Request Social History Tobacco Use Types [...] on file Legal Sex Female 10:22 PM BUSINESS PROCESS SPECIALIST Gender Identity Female 09/12/2021 9:51 AM BUSINESS PROCESS SPECIALIST Sexual Orientation Straight 09/12/2021 9: 51 AM BUSINESS PROCESS SPECIALIST COVID-19 Exposure Response Date Recorded In the last month, have you been in contact with someone who was confirmed or suspected to have Coronavirus / COVID-19? No / Unsure 07/18/2021 9:20 AM BUSINESS PROCESS SPECIALIST documented as of this encounter Progress Notes * PITO Perez - 07/26/2021 8:43 AM CST Looks like Dr. Wren approved yesterday NESS PROCESS SPECIALIST * Lawanda Kc RN - 07/25/2021 10:45 AM CST Please advise NESS PROCESS SPECIALIST * Lawanda Kc RN - 07/24/2021 1:12 PM CST Printed to discuss with provider NESS PROCESS SPECIALIST * Julianna Velasquez - 07/24/2021 11:53 AM CST Medication and strength: Paroxetine 20mg/Pt states she shaking wanting to take 20 mg again Pharmacy: [facility] Call back #: [phone] Last office visit at this office: Last visit with SIENA HOPE in FAMILY PRACTICE was on: 07/18/2021 in [facility] Future appointment scheduled: No future appointments. NESS PROCESS SPECIALIST documented in this encounter Plan of Treatment Upcoming Encounters Date Type Department Care Team (Late st Contact Info) Description 10/02/2024 11:40 AM BUSINESS PROCESS SPECIALIST Office Visit [facility] Multispecialty Care - [address] [place] [address] Johnnie Lr MD [address] [place] [address] [address] [place] [address] 01/04/2025 9:50 AM CDT Office Visit [facility] Family Medicine - [place] [address] [place] [address] Emily Jordan MD [address] [place], [place] [address] documented as of this encounter Visit Diagnoses Not on filedocumented in this encounter Care Teams Smeller Relationship Specialty [place] [address] [address] PCP - General INTERNAL MEDICINE 05/15/21 09/28/21 [place] [address] [address] RHEUMATOLOGY 09/27/20 documented as of this encounter
--- OUTSIDE RECORDS SUMMARY | 2024-08-29 10:00 | XMS_ITS | Encounter Summary ---
Author Organization [facility] Address [address] [place] [address]. [place] [address] [place] [address] Care Team Providers Care Department Sales Manager Name Role Phone Gladis Song MD Unavailable Siena Johnson MD Primary Care Provider [phone] Reason for Visit * Reason Comments Pathology (SCAN) Encounter Details Date Type Department Care Team (Late st Contact Info) Description 06/05/2021 Scan HEALTH INFO SRVCS Scanned, Documents Pathology (SCAN) Social History Tobacco Use Types Packs/Day [...] on file Legal Sex Female 10:22 PM HOT WATER HEATER INSTALLER Gender Identity Female 09/12/2021 9:51 AM HOT WATER HEATER INSTALLER Sexual Orientation Straight 09/12/2021 9: 51 AM HOT WATER HEATER INSTALLER COVID-19 Exposure Response Date Recorded In the last month, have you been in contact with someone who was confirmed or suspected to have Coronavirus / COVID-19? No / Unsure 05/15/2021 3:02 PM CDT documented as of this encounter Plan of Treatment Upcoming Encounters Date Type Department Care Team (Late st Contact Info) Description 10/02/2024 11:40 AM HOT WATER HEATER INSTALLER Office Visit [facility] Mult[facility]pecialty Care - [facility] [address] [facility] [address] [place] [address] Johnnie Lr MD [address] [facility] [address] [place] [address] 01/04/2025 9:50 AM CDT Office Visit [facility] Family Medicine - [place] [address] [place], [place] [id number] Emily Jordan MD [address] [place], [place] [address] documented as of this encounter Procedures Procedure Name Priority Date/Time Associated Diagnosis Comments PATHOLOGY GENERIC (SCAN ORDER) 06/05/2021 documented in this encounter Results * PATHOLOGY GENERIC (06/05/2021) 06/05/2021 Narrative 06/05/2021 Ordered by an unspecified provider. us Documents Scanned SCANNING Final Result documented in this encounter Visit Diagnoses Not on filedocumented in this encounter Care Teams Department Sales Manager Relationship Specialty [place] [address] [facility] [address] [place] [address] PCP - General INTERNAL MEDICINE 05/15/21 09/28/21 [place] [address] [facility] [address] [place] [address] RHEUMATOLOGY 09/27/20 documented as of this encounter
--- OUTSIDE RECORDS SUMMARY | 2024-08-29 10:00 | XMS_ITS | Encounter Summary ---
Author Organization [facility] Address [facility] [facility] [place] [place] [address] [place] [address] Care Team Providers Care Cigar Tobacco Rehandler Name Role Phone Gladis Song MD Unavailable Siena Hope MD Primary Care Provider [phone] Reason for Referral * Imaging (Routine) - Closed Specialty Diagnoses / Procedures Referred By Contac t Referred To Contact RADIOLOGY Diagnoses Age-related osteoporosis without current pathological fracture Procedures BONE DENSITY/[place] [id number] [place] [address] Phone: tel: fax: Referral ID Status Reason Start Date Expiration Date Visits Re quested Visits Authorized [id number] Closed 04/10/2021 05/10/2022 1 1 Reason for Visit * Imaging (Routine) - Closed Specialty Diagnoses / Procedures Referred By Contac t Referred To Contact RADIOLOGY Diagnoses Age-related osteoporosis without current pathological fracture Procedures BONE DENSITY/DEXSiena Bararza MD [id number] [place] [address] Phone: tel: fax: Referral ID Status Reason Start Date Expiration Date Visits Re quested Visits Authorized [id number] Closed 04/10/2021 05/10/2022 1 1 Encounter Details Date Type Department Care Team (Latest Contact Info) Description 05/15/2021 3:00 PM CDT - 05/15/2021 11:59 PM CDT Hospital Encounter [facility] [address] [place], [place] [id number] [place] [address] [place] [address] Discharge Disposition: Home or Self [...] on file Legal Sex Female 10:22 PM ELECTRICIAN MASTER Gender Identity Female 09/12/2021 9:51 AM ELECTRICIAN MASTER Sexual Orientation Straight 09/12/2021 9: 51 AM ELECTRICIAN MASTER COVID-19 Exposure Response Date Recorded In the [...] unspecified SLE type, unspecified organ involvement status ([facility]/HCC) 3 each 02/07/2021 2 albuterol sulfate HFA [...] MG-UNIT Tab Take by mouth daily. 2 DICYCLOMINE 10 MG capsuleIndications: Irritable [...] TABLET BY MOUTH EVERY DAY 90 tablet 04/04/2021 1 hydroxychloroquine 200 MG tablet Take 200 mg by mouth 2 (two) times daily. 05/14/2018 2 ID NOW COVID-19 Kit Test as directed 04/09/2021 2 leflunomide 20 MG tablet Take 20 [...] 01/04/2020 4 documented as of this encounter Progress Notes * Siena Hope MD - 05/15/2021 3:00 PM CDT Please contact patient with results. Osteopenia Discuss at her next appt documented in this encounter Plan of Treatment Upcoming Encounters Date Type Department Care Team (Late st Contact Info) Description 10/02/2024 11:40 AM ELECTRICIAN MASTER Office Visit [facility] Multispecialty Care - [facility] [address] [facility] [place] [phone] Johnnie Lr MD [address] [facility] [address] [place], [place] [address] 01/04/2025 9:50 AM CDT Office Visit [facility] Family Medicine - [place] [address] [place] [address] Emily Jordan MD [address] [place] [address] documented as of this encounter Procedures Procedure Name Priority Date/Time Associated Diagnosis Comments BONE DENSITY/DEXA Routine 05/15/2021 3:1 9 PM CDT Age-related osteoporosis without current pathological fracture documented in this encounter Results * BONE DENSITY/DEXA (05/15/2021 3:19 PM CDT) Anatomical Region Laterality Modality Bone Bone Density 05/15/2021 4:01 PM CDT Impressions 05/15/2021 4:02 PM CDT FINDINGS AND IMPRESSION: Examination performed on a [employer] SL .: LUMBAR SPINE L2-L4: 1. BMD: [...] FINDINGS AND IMPRESSION: Examination performed on a [employer] SL .: LUMBAR SPINE L2-L4: 1. [...] Interpreted By: Kike Garcia, 05/15/2021 4:01 PM Siena Hope MD DEXA Final Result documented in this encounter Visit Diagnoses Diagnosis Age-related osteoporosis without current pathological fracture Senile osteoporosis documented in this encounter Care Teams Cigar Tobacco Rehandler Relationship Specialty [place] [address] [facility] [address] PCP - General INTERNAL MEDICINE 05/15/21 09/28/21 [place] [address] [facility]. [address] [address] RHEUMATOLOGY 09/27/20 documented as of this encounter
--- OUTSIDE RECORDS SUMMARY | 2024-08-29 10:00 | XMS_ITS | Encounter Summary ---
Author Organization [facility] Address [address] [place] [address]. [place] [address] [place] [address] Care Team Providers Care Tangled Yarn Worker Name Role Phone Gladis Song MD Unavailable Siena Hope MD Primary Care Provider Reason for Visit * Reason Comments Pain PAIN LEFT SIDE X1 WE EK / FLU SHOT Encounter Details Date Type Department Care Team (Late st Contact Info) Description 07/18/2021 9:20 AM TRACTOR DRILL OPERATOR Office Visit [facility] Family & Internal Medicine [address] [address] Siena [place] MD [address] [place] [address] Pain (PAIN LEFT SIDE X1 WEEK / FLU SHOT) Social History Tobacco Use Types Packs/Day Years [...] on file Legal Sex Female 10:22 PM TRACTOR DRILL OPERATOR Gender Identity Female 09/12/2021 9:51 AM TRACTOR DRILL OPERATOR Sexual Orientation Straight 09/12/2021 9: 51 AM TRACTOR DRILL OPERATOR COVID-19 Exposure Response Date Recorded In the last month, have you been in contact with someone who was confirmed or suspected to have Coronavirus / COVID-19? No / Unsure 07/18/2021 9:20 AM TRACTOR DRILL OPERATOR documented as of this encounter Last Filed Vital Signs Vital Sign Reading Time Taken Comments Blood Pressure 122/62 07/18/2021 9:37 AM TRACTOR DRILL OPERATOR Pulse 72 07/18/2021 9:37 AM TRACTOR DRILL OPERATOR Temperature 36.2 ??C (97.2 ??F) 07/18/2021 9:37 AM CS T Respiratory Rate 16 07/18/2021 9:37 AM TRACTOR DRILL OPERATOR Oxygen Saturation 96% 07/18/2021 9:37 AM TRACTOR DRILL OPERATOR Inhaled Oxygen Concentration - - Weight 69.1 kg (152 lb 6.4 oz) 07/18/2021 9:37 A M TRACTOR DRILL OPERATOR Height 152.4 cm (5') 07/18/2021 9:37 AM TRACTOR DRILL OPERATOR Body Mass Index 29.76 07/18/2021 9:37 AM TRACTOR DRILL OPERATOR documented in this encounter Progress Notes * Siena [place] MD - 07/18/2021 9:20 AM CST Reason for Visit: Pain (PAIN LEFT SIDE X1 WEEK / FLU SHOT) HPI: 70-year-old female here today to FU & refill medications when needed. Has pain on her side & wonders if she could have the start of a UTI. Also wants a flu vaccine. In 1974 she was diagnosed with lupus in [place] and since moving to the [facility] has beenseeing specialists over at [place]. She sees a shoe parts molder, field crop harvest contractor and GI about 3 years agowas diagnosed with IBS by Dr. Zapata her GI in [place] after colonoscopy and EGD around 1999 1919 She has regular labs and follow-up and mammogram but is overdue for bone density scan and would like an order today. Review of Systems Constitutional: Positive for malaise/fatigue. HENT: Negative. Eyes: Negative. Respiratory: Negative. Cardiovascular: Negative. Gastrointestinal: Positive for constipation and heartburn. IBS Genitourinary: Positive for frequency. Flank pain Musculoskeletal: Positive for joint pain. Rheumatoid arthritis [...] (two) times daily., Disp: , Rfl: ??? DICYCLOMINE 10 MG [...] MOUTH EVERY DAY, Disp: , Rfl: ??? hydroCHLOROthiazide 25 MG tablet, Take 1 tablet (25 mg total) by mouth daily., Disp: 90 tablet,Rfl: 0 ??? hydroxychloroquine 200 MG tablet, Take 200 mg by mouth 2 (two) times daily., Disp: , Rfl: ??? ID NOW COVID-19 Kit, Test as directed, Disp: , Rfl: ??? leflunomide 20 MG tablet, Take 20 mg by mouth daily., Disp: , Rfl: ??? methotrexate 50 MG/2ML injection, INJECT 0.8 MILLILITER ONCE A WEEK FOR 90 DAYS, Disp: , Rfl: ??? Methscopolamine [place] 5 MG Tab, Take 5 mg by [...] file Intimate Partner Violence: Not on file Family History Problem Relation Name Age of Onset ??? Heart Disease Mother ??? Other (lungs) Father Family Status Relation Name Status ??? Mother ??? Father Filed Vitals: 07/18/21 0937 BP: 122/62 Pulse: 72 Resp: 16 Temp: 97.2 ??F (36.2 ??C) TempSrc: Temporal SpO2: 96% Weight: 69.1 kg (152 lb 6.4 oz) Height: 5' (1.524 m) Body mass index is 29.76 kg/m??. Physical Exam Constitutional: Appearance: She is well-developed. HENT: Head: Normocephalic. Eyes: Conjunctiva/sclera: Conjunctivae normal. Pupils: Pupils are equal, round, and reactive to light. Cardiovascular: Rate and Rhythm: Normal rate and regular rhythm. Heart sounds: Normal heart sounds. Pulmonary: Effort: Pulmonary effort is normal. Breath sounds: Normal breath sounds. Abdominal: General: Bowel sounds are normal. Palpations: Abdomen is soft. Musculoskeletal: General: Normal range of motion. Cervical back: Neck supple. Skin: General: Skin is dry. Neurological: Mental Status: She is alert and oriented to person, place, and time. Cranial Nerves: No cranial nerve deficit. Psychiatric: Judgment: Judgment normal. Results for MIRELLA ORANTES ( ) as of 07/23/2021 17:30 Ref. Range 07/18/2021 00:00 COLOR (U) Unknown YELLOW TRANSPARENCY Unknown CLEAR BILIRUBIN (U) Latest Ref Range: NEGATIVE NEGATIVE Specific Hayes (U) Latest Ref Range: 1.001 - 1.035 >=1.030 U PH Latest Ref Range: 5.0 - 9.0 6.0 LEUKOCYTE ESTERASE Latest Ref Range: NEGATIVE NEGATIVE NITRITES Latest Ref Range: NEGATIVE MG/DL NEGATIVE PROTEIN (U) Latest Ref Range: NEGATIVE mg/dL NEGATIVE GLUCOSE (U) Latest Ref Range: NEGATIVE MG/DL NEGATIVE U KETONES Latest Ref Range: NEGATIVE MG/DL NEGATIVE UROBILINOGEN Latest Ref Range: 0.2 - 1.0 EU/dL = mg/dL 0.2 BLOOD Latest Ref Range: NEGATIVE SMALL (1+, Hemolyzed) Assessment/PLAN 1. Need for immunization against influenza - [06247] INFLUENZA VIRUS VACCINE, SPLIT VIRUS 0.7 mL (SINGLE DOSE SYRINGE FLUZONE HIGH DOSE) 2. Asymptomatic microscopic hematuria - URINALYSIS AUTO DIP COUNSELING: I spent 25 minutes today reviewing the patient's medical record, obtaining history, performing an exam, ordering medications, tests and/or procedures, documenting in the medical record, , counseling and educating the patient/family/caregiver. Reviewing and communicating test results & coordinati on of care. Small amt blood in urine, recheck in spring. If still showing blood consider Urology referral. Follow up FU 6 months or PRN SIENA HOPE MD 07/23/2021 5:29 PM TOR DRILL OPERATOR documented in this encounter Plan of Treatment Upcoming Encounters Date Type Department Care Team (Late st Contact Info) Description 10/02/2024 11:40 AM TRACTOR DRILL OPERATOR Office Visit [facility] Multispecialty Care - [address] [place] [address] Johnnie Lr MD 3 [facility] PARTH [facility] [place] [address] 01/04/2025 9:50 AM CDT Office Visit [facility] Family Medicine - [place] [address] [place], [place] [address] Emily Jordan MD [address] [place] [address] documented as of this encounter Procedures Procedure Name Priority Date/Time Associated Diagnosis Comments URINALYSIS AUTO DIP Routine 07/18/2021 Asymptomatic microscopic hematuria documented in this encounter Results * URINALYSIS AUTO DIP (07/18/2021) COLOR (U) YELLOW [id number], [place] TRANSPARENCY CLEAR MG-[address], [facility] GLU[facility]SE (U) NEGATIVE NEGATIVE MG/DL [id number], [facility] BILIRUBIN (U) NEGATIVE NEGATIVE MG-[address], [facility] KETONES MG/DL (U) NEGATIVE NEGATIVE MG/DL [id number], [facility] SPECIFIC GRAVITY (U) >=1.030 1.001 - 1.035 MG-[id number], [facility] BLOOD (U) SMALL (1+, Hemolyzed) NEGATIVE MG-[address], [place] U PH 6.0 5.0 - 9.0 MG-[address], [facility] PROTEIN (U) NEGATIVE NEGATIVE mg/dL [id number], [facility] UROBILINOGEN 0.2 0.2 - 1.0 EU/dL = mg/dL [id number], [facility] NITRITES NEGATIVE NEGATIVE MG/DL [id number], [facility] LEUKOCYTES (U) NEGATIVE NEGATIVE MG-[address], [place] URINE SPECIMEN OBTAINED BY CLEAN CATCH PROCEDURE / Unknown 07/18/2021 us Siena Hope MD URINE ORDERABLES Final Resul t [id number] [address] [place] [address] [place] [address], documented in this encounter Visit Diagnoses Diagnosis Need for immunization against influenza- Primary Need for prophylactic vaccination and inoculation against influenza Asymptomatic microscopic hematuria documented in this encounter Care Teams Tangled Yarn Worker Relationship Specialty [place] [id number] [facility]. [facility] [address] [place] [address] PCP - General INTERNAL MEDICINE 05/15/21 09/28/21 [place] [address] [address] RHEUMATOLOGY 09/27/20 documented as of this encounter
--- OUTSIDE RECORDS SUMMARY | 2024-08-29 10:00 | XMS_ITS | Encounter Summary ---
Author Organization [facility] Address [address] [place] [address]. [place] [address] [place] [address] Care Team Providers Care Cnc Mechanic Name Role Phone Gabriel Persaud MD Primary Care Provider Gladis Cevallos MD Unavailable Reason for Visit * Reason Onset Date Comments Sinus Problem 12/12/2020 Encounter Details Date Type Department Care Team (Late st Contact Info) Description 12/12/2020 Telephone [facility] Family Medicine - [place] [address] [address] Gabriel Persaud MD Sinus Problem Social History Tobacco Use Types [...] on file Legal Sex Female 10:22 PM DEPARTMENT DIRECTOR Gender Identity Female 09/12/2021 9:51 AM DEPARTMENT DIRECTOR Sexual Orientation Straight 09/12/2021 9: 51 AM DEPARTMENT DIRECTOR COVID-19 Exposure Response Date Recorded In the last month, have you been in contact with someone who was confirmed or suspected to have Coronavirus / COVID-19? No / Unsure 11/28/2020 1:04 PM CDT documented as of this encounter Progress Notes * Seble Carter - 12/12/2020 2:06 PM CDT Chio called in stating that her nose is running like a faucet nonstop for 3-4 days now and wants to know if there is something you can prescribe. She has tried Zyrtec and it's not helping. documented in this encounter Plan of Treatment Upcoming Encounters Date Type Department Care Team (Late st Contact Info) Description 10/02/2024 11:40 AM DEPARTMENT DIRECTOR Office Visit [facility] Multispecialty Care - [facility] [address] [facility] [address] [place] [address] Johnnie Lr MD [address] [facility] [address] [place] [address] 01/04/2025 9:50 AM CDT Office Visit [facility] Family Medicine - [place] [address] [place] [address] Emily Jordan MD [address] [place] [address] documented as of this encounter Visit Diagnoses Diagnosis Allergic rhinitis, unspecified seasonality, unspecified trigger- Primary documented in this encounter Care Teams Cnc Mechanic Relationship Specialty Start Date End Date Gabriel Persaud MD PCP - General FAMILY MEDICINE SPORTS MEDICINE 04/25/20 03/15/21 [place] [id number] [facility]. [facility] [address] [place] [address] RHEUMATOLOGY 09/27/20 documented as of this encounter
--- OUTSIDE RECORDS SUMMARY | 2024-08-29 10:00 | XMS_ITS | Encounter Summary ---
Author Organization [facility] Address [address] [place] [address]. [place] [address] [place] [address] Care Team Providers Care School Bus Mechanic Name Role Phone Gladis Song MD Unavailable Siena Johnson MD Primary Care Provider [phone] Encounter Details Date Type Department Care Team (Latest Contact Info) Description 09/08/2021 5:51 PM VIDEO GAMES STORYWRITER - 09/08/2021 11:59 PM VIDEO GAMES STORYWRITER Hospital Encounter [facility] [address] [place], [place] [id number] [place] [address] [facility] [address] [place] [address] Discharge Disposition: Home or [...] on file Legal Sex Female 10:22 PM VIDEO GAMES STORYWRITER Gender Identity Female 09/12/2021 9:51 AM VIDEO GAMES STORYWRITER Sexual Orientation Straight 09/12/2021 9: 51 AM VIDEO GAMES STORYWRITER COVID-19 Exposure Response Date Recorded In the last month, have you been in contact with someone who was confirmed or suspected to have Coronavirus / COVID-19? Unable to assess 09/08/2021 7:36 AM VIDEO GAMES STORYWRITER documented as of this encounter Medications at [...] unspecified SLE type, unspecified organ involvement status ([facility]) 3 each 02/07/2021 2 albuterol sulfate [...] USE DIRECTED FOR 90 DAYS 02/19/2020 2 benzonatate 200 MG capsuleIndications: Acute cough Take 1 capsule (200 mg total) by mouth 3 (three) times daily as needed for Cough. 20 capsule 09/08/2021 2 bisoprolol 5 MG tablet TAKE 1 [...] methotrexate 2.5 MG tablet 08/17/2021 4 Methscopolamine [place] 5 MG Tab Take 5 mg by [...] st Contact Info) Description 10/02/2024 11:40 AM VIDEO GAMES STORYWRITER Office Visit [facility] Medical [facility] Multispecialty Care - [facility] [address] [facility] [place] [id number] Johnnie Lr MD 3 [facility] [address] [place] [address] 01/04/2025 9:50 AM CDT Office Visit [facility] Medical [facility] Family Medicine - [place] [address] [place], [place] [address] Emily Jordan MD [address] [place], [place] [address] documented as of this encounter Procedures Procedure Name Priority Date/Time Associated Diagnosis Comments CORONAVIRUS (COVID 19) Routine 09/08/2021 3:28 PM VIDEO GAMES STORYWRITER documented in this encounter Results * (ABNORMAL) CORONAVIRUS (COVID 19) (09/08/2021 3:28 PM VIDEO GAMES STORYWRITER) SPECIMEN SOURCE NASAL 2 6:39 PM VIDEO GAMES STORYWRITER [facility] () [facility] CORONAVIRUS SARS COV 2 PCR (RESP) POSITIVE(A A) NEGATIVE 09/09/2021 9:46 PM VIDEO GAMES STORYWRITER [facility] () [facility] Comment: THE SARS-CoV-2 TEST HAS BEEN AUTHORIZED BY THE FDA UNDER AN EUA FOR USE BY AUTHORIZED LABORATORIES. PERFORMED BY NUCLEIC ACID AMPLIFICATION PCR FIRST TEST UNKNOWN 09/08/2021 6:39 PM VIDEO GAMES STORYWRITER [facility] EMPLOYED IN HEALTHCARE UNKNOWN 09/08/2021 6:39 PM VIDEO GAMES STORYWRITER [facility] SYMPTOMATIC DEFINED BY CDC UNKNOWN 09/08/2021 6:39 PM VIDEO GAMES STORYWRITER [facility] HOSPITALIZATION STATUS UNKNOWN 09/08/2021 6:39 PM VIDEO GAMES STORYWRITER [facility] RESIDENT OF [facility] UNKNOWN 09/08/2021 6:39 PM VIDEO GAMES STORYWRITER [facility] 09/08/2021 3:28 PM VIDEO GAMES STORYWRITER Thi Lugo MD MICROBIOLOGY - GENERAL ORDERAB LES Final Result Performing Organization Address [facility]/State/[facility] Co de Phone Number [facility] [address] [place] [address], [facility] [address] [place] [id number], [place] [phone] documented in this encounter Visit Diagnoses Diagnosis Exposure to confirmed case of COVID-19 Viral sinusitis Unspecified sinusitis (chronic) Suspected COVID-19 virus infection Acute cough documented in this encounter Additional Health Concerns Infection Onset Date Last Indicated Resolved Time COVID-19 Rule Out 09/08/2021 09/08/2021 09/08/2021 6:38 PM VIDEO GAMES STORYWRITER COVID-19 Rule Out 09/08/2021 09/08/2021 09/09/2021 9:46 PM VIDEO GAMES STORYWRITER documented as of this encounter Care Teams School Bus Mechanic Relationship Specialty [place] [id number] [facility]. [facility] [address] [place] [address] PCP - General INTERNAL MEDICINE 05/15/21 09/28/21 [place] [address] [facility]. [facility] [address] [place] [address] RHEUMATOLOGY 09/27/20 documented as of this encounter
--- OUTSIDE RECORDS SUMMARY | 2024-08-29 10:01 | XMS_ITS | Encounter Summary ---
Author Organization [facility] Address [address] [place] [address]. [place] [address] [place] [address] Care Team Providers Care Reception Centre Manager Name Role Phone Gabriel Persaud MD Primary Care Provider Unavailabl e Reason for Visit * Reason Onset Date Comments Pre-visit Gap Closure 07/25/2020 Encounter Details Date Type Department Care Team (Late st Contact Info) Description 07/25/2020 Telephone [facility] Family Medicine - [place] [address] [address] Gabriel Persaud MD Pre-visit Gap Closure Social History Tobacco Use Types Packs/Day Years Used Date Smoking Tobacco: Never Smokeless Tobacco: Never Alcohol Use Standard Drinks/Week Comments Yes 0 (1 standard drink = 0.6 oz pur e alcohol) social PHQ-2 Answer Date Recorded PHQ-2 Score 0 04/26/2020 Comments No Sex and Gender Information Value Date Recorded Sex Assigned at Not on file Legal Sex Female 10:22 PM PRINTER SLOTTER HELPER Gender Identity Female 09/12/2021 9:51 AM PRINTER SLOTTER HELPER Sexual Orientation Straight 09/12/2021 9: 51 AM PRINTER SLOTTER HELPER documented as of this encounter Progress Notes * Rula Escalera MA - 07/25/2020 10:00 AM CST Contacted patient for pre-visit gap closure. I am calling this patient as a patient advocate for the [employer] Work Program. My direct extension is [phone]. You can also reach me at: [phone] (PAMELA) OR [phone] (ELBA) Contacted patient for scheduling Annual Wellness Visit. TER SLOTTER HELPER documented in this encounter Plan of Treatment Upcoming Encounters Date Type Department Care Team (Late st Contact Info) Description 10/02/2024 11:40 AM PRINTER SLOTTER HELPER Office Visit [facility] Multispecialty Care - [facility] [address] [facility] [facility] [place] [address] Johnnie Lr MD [address] [facility] [address] [place] [address] 01/04/2025 9:50 AM CDT Office Visit [facility] Family Medicine - [place] [address] [place] [address] Emily Jordan MD [address] [place] [address] documented as of this encounter Visit Diagnoses Not on filedocumented in this encounter Care Teams Reception Centre Manager Relationship Specialty Start Date End Date Gabriel Persaud MD PCP - General FAMILY MEDICINE SPORTS MEDICINE 04/25/20 03/15/21 documented as of this encounter
--- OUTSIDE RECORDS SUMMARY | 2024-08-29 10:01 | XMS_ITS | Encounter Summary ---
Author Organization [facility] Address [address] [place] [address]. [place] [address] [place] [address] Care Team Providers Care Manager Background Name Role Phone Gabriel Persaud MD Primary Care Provider Unavailabl e Reason for Visit * Reason Comments Lab (SCAN) Encounter Details Date Type Department Care Team (Latest Contact Info) Description 07/29/2020 Scan HEALTH INFO SRVCS Scanned, Documents Lab (SCAN) Social History Tobacco Use Types Packs/Day Years Used Date Smoking Tobacco: Never Smokeless Tobacco: Never Alcohol Use Standard Drinks/Week Comments Yes 0 (1 standard drink = 0.6 oz pur e alcohol) social PHQ-2 Answer Date Recorded PHQ-2 Score 0 04/26/2020 Comments No Sex and Gender Information Value Date Recorded Sex Assigned at Not on file Legal Sex Female 10:22 PM MULTIMEDIA SERVICES MANAGER Gender Identity Female 09/12/2021 9:51 AM MULTIMEDIA SERVICES MANAGER Sexual Orientation Straight 09/12/2021 9: 51 AM MULTIMEDIA SERVICES MANAGER documented as of this encounter Plan of Treatment Upcoming Encounters Date Type Department Care Team (Late st Contact Info) Description 10/02/2024 11:40 AM MULTIMEDIA SERVICES MANAGER Office Visit [facility] Multispecialty Care - [address] [place] [address] Johnnie Lr MD 3 [facility] [address] [place] [address] 01/04/2025 9:50 AM CDT Office Visit [facility] Family Medicine - [place] [address] [place] [address] Emily Jordan MD [address] [place], [place] [address] documented as of this encounter Procedures Procedure Name Priority Date/Time Associated Diagnosis Comments CORONAVIRUS (COVID 19) Routine 07/29/2020 Close exposure to COVID-19 virus documented in this encounter Results * CORONAVIRUS (COVID 19) [facility] (07/29/2020) CORONAVIRUS SARS COV 2 PCR (RESP) NOT DETECTED NOT DETECTED NASOPHARYNGEAL SWAB / Unknown 07/29/2020 Gabriel Persaud MD MICROBIOLOGY - GENERAL ORDERABLE S Final Result documented in this encounter Visit Diagnoses Diagnosis Close exposure to COVID-19 virus documented in this encounter Additional Health Concerns Infection Onset Date Last Indicated Resolved Time COVID-19 Rule Out 07/27/2020 07/29/2020 08/09/2020 2:27 PM MULTIMEDIA SERVICES MANAGER documented as of this encounter Care Teams Manager Background Relationship Specialty Start Date End Date Gabriel Persaud MD PCP - General FAMILY MEDICINE SPORTS MEDICINE 04/25/20 03/15/21 documented as of this encounter
--- OUTSIDE RECORDS SUMMARY | 2024-08-29 10:01 | XMS_ITS | Encounter Summary ---
Author Organization [facility] Address [address] [place] [address]. [place] [address] [place] [address] Care Team Providers Care Public Stenographer Name Role Phone Gabriel Persaud MD Primary Care Provider Unavailabl e Reason for Visit * Reason Comments Mammogram (SCAN) Encounter Details Date Type Department Care Team (Late st Contact Info) Description 09/08/2020 Scan HEALTH INFO SRVCS Scanned, Documents Mammogram [...] on file Legal Sex Female 10:22 PM UTILITY SERVICE WORKER Gender Identity Female 09/12/2021 9:51 AM UTILITY SERVICE WORKER Sexual Orientation Straight 09/12/2021 9: 51 AM UTILITY SERVICE WORKER documented as of this encounter Plan of Treatment Upcoming Encounters Date Type Department Care Team (Late Contact Info) Description 10/02/2024 11:40 AM UTILITY SERVICE WORKER Office Visit [facility] Medical Group Multispecialty Care - [address] [place] [address] Johnnie Lr MD 3 [facility] [address] [place] [address] 01/04/2025 9:50 AM CDT Office Visit [facility] Medical Group Family Medicine - [place] [address] [place] [id number] Emily Jordan MD [address] [place] [address] documented as of this encounter Procedures Procedure Name Priority Date/Time Associated Diagnosis Comments MAMMOGRAM GENERIC (SCAN ORDER) 09/08/2020 documented in this encounter Results * MAMMOGRAM GENERIC (09/08/2020) Anatomical Region Laterality Modality Other 09/08/2020 Narrative 09/08/2020 Ordered by an unspecified provider. us Documents Scanned SCANNING Final Result documented in this encounter Visit Diagnoses Not on filedocumented in this encounter Care Teams Public Stenographer Relationship Specialty Start Date End Date Gabriel Persaud MD PCP - General FAMILY MEDICINE SPORTS MEDICINE 04/25/20 03/15/21 documented as of this encounter
--- OUTSIDE RECORDS SUMMARY | 2024-08-29 10:01 | XMS_ITS | Encounter Summary ---
Author Organization [facility] Address [address] [place] [address]. [place] [address] [place] [address] Care Team Providers Care Dolphin Researcher Name Role Phone Gabriel Persaud MD Primary Care Provider Unavailabl e Encounter Details Date Type Department Care Team (Latest Contact Info) Description 04/26/2020 Travel Social History Tobacco Use Types Packs/Day Years Used Date Smoking Tobacco: Never Smokeless Tobacco: Never Alcohol Use Standard Drinks/Week Comments Yes 0 (1 standard drink = 0.6 oz pur e alcohol) social PHQ-2 Answer Date Recorded PHQ-2 Score 0 04/26/2020 Comments No Sex and Gender Information Value Date Recorded Sex Assigned at Not on file Legal Sex Female 10:22 PM CHROME PLATER HELPER Gender Identity Female 09/12/2021 9:51 AM CHROME PLATER HELPER Sexual Orientation Straight 09/12/2021 9: 51 AM CHROME PLATER HELPER COVID-19 Exposure Response Date Recorded In the last month, have you been in contact with someone who was confirmed or suspected to have Coronavirus / COVID-19? No / Unsure 04/26/2020 9:58 AM CDT documented as of this encounter Plan of Treatment Upcoming Encounters Date Type Department Care Team (Late st Contact Info) Description 10/02/2024 11:40 AM CHROME PLATER HELPER Office Visit [facility] Multispecialty Care - [facility] [address] [facility] [place] [address] Johnnie Lr MD [address] [facility] [address] [place] [address] 01/04/2025 9:50 AM CDT Office Visit [facility] Family Medicine - [place] [address] [place], [place] [id number] Emily Jordan MD [address] [place] [address] documented as of this encounter Visit Diagnoses Not on filedocumented in this encounter Care Teams Dolphin Researcher Relationship Specialty Start Date End Date Gabriel Persaud MD PCP - General FAMILY MEDICINE SPORTS MEDICINE 04/25/20 03/15/21 documented as of this encounter
--- OUTSIDE RECORDS SUMMARY | 2024-08-29 10:01 | XMS_ITS | Encounter Summary ---
Author Organization [facility] Address [address] [place] [address]. [place] [address] [place] [address] Care Team Providers Care Brush Finisher Name Role Phone Gabriel Persaud MD Primary Care Provider Gladis Cevallos MD Unavailable Encounter Details Date Type Department Care Team (Late st Contact Info) Description 09/26/2020 Orders Only [facility] Multispecialty Care - [address] [place] [address] Yancy Kline RN Social History Tobacco Use Types Packs/Day Years Used Date Smoking Tobacco: Never Smokeless Tobacco: Never Alcohol Use Standard Drinks/Week Comments Yes 0 (1 standard drink = 0.6 oz pur e alcohol) social PHQ-2 Answer Date Recorded PHQ-2 Score - If the patient scores above 3, please move on to questions 3-9 3 09/27/2020 Comments No Sex and Gender Information Value Date Recorded Sex Assigned at Not on file Legal Sex Female 10:22 PM ELECTRONICS TECHNOLOGY DEPARTMENT CHAIR Gender Identity Female 09/12/2021 9:51 AM ELECTRONICS TECHNOLOGY DEPARTMENT CHAIR Sexual Orientation Straight 09/12/2021 9: 51 AM ELECTRONICS TECHNOLOGY DEPARTMENT CHAIR COVID-19 Exposure Response Date Recorded In the last month, have you been in contact with someone who was confirmed or suspected to have Coronavirus / COVID-19? No / Unsure 09/27/2020 11:04 AM ELECTRONICS TECHNOLOGY DEPARTMENT CHAIR documented as of this encounter Plan of Treatment Upcoming Encounters Date Type Department Care Team (Late st Contact Info) Description 10/02/2024 11:40 AM ELECTRONICS TECHNOLOGY DEPARTMENT CHAIR Office Visit [facility] Multispecialty Care - [facility] [address] [facility] [place] [address] Johnnie Lr MD [address] [facility] [address] [place] [address] 01/04/2025 9:50 AM CDT Office Visit [facility] Family Medicine - [place] [address] [place], [place] [address] Emily Jordan MD [address] [place] [address] documented as of this encounter Visit Diagnoses Not on filedocumented in this encounter Care Teams Brush Finisher Relationship Specialty Start Date End Date Gabriel Persaud MD PCP - General FAMILY MEDICINE SPORTS MEDICINE 04/25/20 03/15/21 [place] [id number] [facility] [address] [place] [address] RHEUMATOLOGY 09/27/20 documented as of this encounter
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
--- OUTSIDE RECORDS SUMMARY | 2024-08-29 10:01 | XMS_ITS | Encounter Summary ---
Author Organization [facility] Address [address] [place] [address]. [place] [address] [place] [address] Care Team Providers Care Electrocardiographic Technician Name Role Phone Gabriel Persaud MD Primary Care Provider Unavailabl e Reason for Visit * Reason Onset Date Comments Appointment Request 07/19/2020 Encounter Details Date Type Department Care Team (Late st Contact Info) Description 07/19/2020 Telephone [facility] Medical [facility] Family Medicine - [place] [address] [phone] Gabriel Persaud MD Appointment Request Social History Tobacco Use Types Packs/Day Years Used Date Smoking Tobacco: Never Smokeless Tobacco: Never Alcohol Use Standard Drinks/Week Comments Yes 0 (1 standard drink = 0.6 oz pur e alcohol) social PHQ-2 Answer Date Recorded PHQ-2 Score 0 04/26/2020 Comments No Sex and Gender Information Value Date Recorded Sex Assigned at Not on file Legal Sex Female 10:22 PM POLYSOMNOGRAPHY TECHNICIAN Gender Identity Female 09/12/2021 9:51 AM POLYSOMNOGRAPHY TECHNICIAN Sexual Orientation Straight 09/12/2021 9: 51 AM POLYSOMNOGRAPHY TECHNICIAN documented as of this encounter Progress Notes * Rula Escalera MA - 07/19/2020 3:14 PM CST Contacted patient for scheduling Annual Wellness Visit. I am calling this patient as a patient advocate for the Virtual Standard Work Program. My direct extension is [phone]. You can also reach me at: [phone] (PAMELA) OR [phone] (ELBA) SOMNOGRAPHY TECHNICIAN documented in this encounter Plan of Treatment Upcoming Encounters Date Type Department Care Team (Late st Contact Info) Description 10/02/2024 11:40 AM POLYSOMNOGRAPHY TECHNICIAN Office Visit [facility] Multispecialty Care - [facility] [address] [facility] [place] [address] Johnnie Lr MD [address] [facility] [address] [place] [address] 01/04/2025 9:50 AM CDT Office Visit [facility] Family Medicine - [place] [address] [place], [place] [address] Emily Jordan MD [address] [place], [place] [address] documented as of this encounter Visit Diagnoses Not on filedocumented in this encounter Care Teams Electrocardiographic Technician Relationship Specialty Start Date End Date Gabriel Persaud MD PCP - General FAMILY MEDICINE SPORTS MEDICINE 04/25/20 03/15/21 documented as of this encounter
--- OUTSIDE RECORDS SUMMARY | 2024-08-29 10:01 | XMS_ITS | Encounter Summary ---
Author Organization [facility] Address [address] [place] [address]. [place] [address] [place] [address] Care Team Providers Care Associate Professor Of English Name Role Phone Gabriel Persaud MD Primary Care Provider Unavailabl e Reason for Visit * Reason Onset Date Comments Appointment Request 09/01/2020 AWV Schedule d Encounter Details Date Type Department Care Team (Late st Contact Info) Description 09/01/2020 Telephone [facility] Medical Group Family Medicine [facility] [address] [place] [phone] Gabriel Persaud MD Appointment Request (AWV Scheduled) Social History Tobacco Use Types Packs/Day Years Used Date Smoking Tobacco: Never Smokeless Tobacco: Never Alcohol Use Standard Drinks/Week Comments Yes 0 (1 standard drink = 0.6 oz pur e alcohol) social PHQ-2 Answer Date Recorded PHQ-2 Score 0 04/26/2020 Comments No Sex and Gender Information Value Date Recorded Sex Assigned at Not on file Legal Sex Female 10:22 PM DRAW MACHINE OPERATOR Gender Identity Female 09/12/2021 9:51 AM DRAW MACHINE OPERATOR Sexual Orientation Straight 09/12/2021 9: 51 AM DRAW MACHINE OPERATOR documented as of this encounter Progress Notes * Yancy Kline RN - 09/01/2020 9:51 AM CST Telephone call placed to patient. Nurse introduced herself and explained her role as the Wellness Visit Nurse. Patient agreed to schedule her Annual Wellness Visit for 09/27/2020. MACHINE OPERATOR documented in this encounter Plan of Treatment Upcoming Encounters Date Type Department Care Team (Late st Contact Info) Description 10/02/2024 11:40 AM DRAW MACHINE OPERATOR Office Visit [facility] Multispecialty Care - [facility] [address] [facility] [place] [address] Johnnie Lr MD [address] [facility] [address] [place] [address] 01/04/2025 9:50 AM CDT Office Visit [facility] Family Medicine - [place] [address] [place], [place] [phone] Emily Jordan MD [address] [place], [place] [phone] documented as of this encounter Visit Diagnoses Not on filedocumented in this encounter Care Teams Associate Professor Of English Relationship Specialty Start Date End Date Gabriel Persaud MD PCP - General FAMILY MEDICINE SPORTS MEDICINE 04/25/20 03/15/21 documented as of this encounter
--- OUTSIDE RECORDS SUMMARY | 2024-08-29 10:01 | XMS_ITS | Encounter Summary ---
Author Organization [facility] Address [address] [place] [address]. [place] [address] [place] [address] Care Team Providers Care Research Phlebotomist Name Role Phone Gabriel Persaud MD Primary Care Provider Unavailabl e Reason for Visit * Reason Onset Date Comments Results 08/02/2020 covid swab Encounter Details Date Type Department Care Team (Late st Contact Info) Description 08/02/2020 Telephone [facility] Medical Group Family Medicine - [place] [address] [phone] Gabriel Persaud MD Results (covid swab) Social History Tobacco Use Types Packs/Day Years Used Date Smoking Tobacco: Never Smokeless Tobacco: Never Alcohol Use Standard Drinks/Week Comments Yes 0 (1 standard drink = 0.6 oz pur e alcohol) social PHQ-2 Answer Date Recorded PHQ-2 Score 0 04/26/2020 Comments No Sex and Gender Information Value Date Recorded Sex Assigned at Not on file Legal Sex Female 10:22 PM TOWER ERECTOR Gender Identity Female 09/12/2021 9:51 AM TOWER ERECTOR Sexual Orientation Straight 09/12/2021 9: 51 AM TOWER ERECTOR documented as of this encounter Progress Notes * Juan Antonio Albert MA - 08/02/2020 11:48 AM CST Patient had covid swab done at [facility] on 07/29/2020. Called patient to inform her the results were Negative. R ERECTOR documented in this encounter Plan of Treatment Upcoming Encounters Date Type Department Care Team (Late st Contact Info) Description 10/02/2024 11:40 AM TOWER ERECTOR Office Visit [facility] Medical [facility] Multispecialty Care - [facility] [address] [facility] [place] [address] Johnnie Lr MD [address] [facility] [address] [place] [address] 01/04/2025 9:50 AM CDT Office Visit [facility] Family Medicine - [place] [address] [place] [address] Emily Jordan MD [address] [place], [place] [phone] documented as of this encounter Visit Diagnoses Not on filedocumented in this encounter Additional Health Concerns Infection Onset Date Last Indicated Resolved Time COVID-19 Rule Out 07/27/2020 07/29/2020 08/09/2020 2:27 PM TOWER ERECTOR documented as of this encounter Care Teams Research Phlebotomist Relationship Specialty Start Date End Date Gabriel Persaud MD PCP - General FAMILY MEDICINE SPORTS MEDICINE 04/25/20 03/15/21 documented as of this encounter
--- OUTSIDE RECORDS SUMMARY | 2024-08-29 10:01 | XMS_ITS | Encounter Summary ---
Author Organization [facility] Address [address] [place] [address]. [place] [address] [place] [address] Care Team Providers Care Milking Machine Mechanic Name Role Phone Gabriel Persaud MD Primary Care Provider Unavailabl e Reason for Visit * Reason Onset Date Comments COVID-19 07/27/2020 Encounter Details Date Type Department Care Team (Late st Contact Info) Description 07/27/2020 Telephone [facility] Medical Group Family Medicine - [place] [address] [address] Gabriel Persaud MD COVID-19 Social History Tobacco Use Types Packs/Day Years Used Date Smoking Tobacco: Never Smokeless Tobacco: Never Alcohol Use Standard Drinks/Week Comments Yes 0 (1 standard drink = 0.6 oz pur e alcohol) social PHQ-2 Answer Date Recorded PHQ-2 Score 0 04/26/2020 Comments No Sex and Gender Information Value Date Recorded Sex Assigned at Not on file Legal Sex Female 10:22 PM MAGISTRATE ASSISTANT Gender Identity Female 09/12/2021 9:51 AM MAGISTRATE ASSISTANT Sexual Orientation Straight 09/12/2021 9: 51 AM MAGISTRATE ASSISTANT documented as of this encounter Progress Notes * Juan Antonio Albert MA - 07/27/2020 1:05 PM CSTAddended by: JUAN ANTONIO ALBERT on: 07/27/2020 01:05 PM Modules accepted: Orders STRATE ASSISTANT * Juan Antonio Albert MA - 07/27/2020 1:03 PM CSTAddended by: JUAN ANTONIO ALBERT on: 07/27/2020 01:03 PM Modules accepted: Orders STRATE ASSISTANT * Juan Antonio Albert MA - 07/27/2020 12:59 PM CSTAddended by: JUAN ANTONIO ALBERT on: 07/27/2020 12:59 PM Modules accepted: Orders STRATE ASSISTANT * Juan Antonio Albert MA - 07/27/2020 12:52 PM CST Patient called she was in contact with someone who tested positive and is needing an order to get tested for Covid. Order will be faxed to [facility]. STRATE ASSISTANT documented in this encounter Plan of Treatment Upcoming Encounters Date Type Department Care Team (Late st Contact Info) Description 10/02/2024 11:40 AM MAGISTRATE ASSISTANT Office Visit [facility] Multispecialty Care - [facility] [address] [facility] [place] [address] Johnnie Lr MD [address] [facility] [address] [place] [address] 01/04/2025 9:50 AM CDT Office Visit [facility] Family Medicine - [place] [address] [place] [address] Emily Jordan MD [address] [place], [place] [address] documented as of this encounter Results * CORONAVIRUS (COVID 19) [facility] (07/29/2020) CORONAVIRUS SARS COV 2 PCR (RESP) NOT DETECTED NOT DETECTED NASOPHARYNGEAL SWAB / Unknown 07/29/2020 us Gabriel Persaud MD MICROBIOLOGY - GENERAL ORDERABLE S Final Result documented in this encounter Visit Diagnoses Diagnosis Close exposure to COVID-19 virus- Primary documented in this encounter Additional Health Concerns Infection Onset Date Last Indicated Resolved Time COVID-19 Rule Out 07/27/2020 07/29/2020 08/09/2020 2:27 PM MAGISTRATE ASSISTANT documented as of this encounter Care Teams Milking Machine Mechanic Relationship Specialty Start Date End Date Gabriel Persaud MD PCP - General FAMILY MEDICINE SPORTS MEDICINE 04/25/20 03/15/21 documented as of this encounter
--- OUTSIDE RECORDS SUMMARY | 2024-08-29 10:01 | XMS_ITS | Encounter Summary ---
Author Organization [facility] Address [address] [place] [address]. [place] [address] [place] [address] Care Team Providers Care Account Executive Sales Representative Name Role Phone Unavailable Primary Care Provider Unavailabl e Encounter Details Date Type Department Care Team (Late st Contact Info) Description 08/10/2017 Abstract [facility] [address] [place] [address] Germania Nickerson, IMPLEMENTATION ARCHITECT [address] [facility] [address] [place] [address] Social History Tobacco Use Types Packs/Day Years Used Date Smoking Tobacco: Never Assessed Comments Unknown Sex and Gender Information Value Date Recorded Sex Assigned at Not on file Legal Sex Female 10:22 PM OLD COIN DEALER Gender Identity Female 09/12/2021 9:51 AM OLD COIN DEALER Sexual Orientation Straight 09/12/2021 9: 51 AM OLD COIN DEALER documented as of this encounter Plan of Treatment Upcoming Encounters Date Type Department Care Team (Late Contact Info) Description 10/02/2024 11:40 AM OLD COIN DEALER Office Visit [facility] Medical Group Multispecialty Care - [address] [place] [address] Johnnie Lr MD [address] [place] [address] [address] [place] [address] 01/04/2025 9:50 AM CDT Office Visit [facility] Medical Group Family Medicine - [place] [address] [place] [address] Emily Jordan MD [address] [place], [place] [address] documented as of this encounter Procedures Procedure Name Priority Date/Time Associated Diagnosis Comments COMPREHENSIVE METABOLIC PANEL STAT 08/10/2017 1:00 PM OLD COIN DEALER CULTURE, BACTERIA, BLOOD TIMED 08/10/2017 1:00 PM OLD COIN DEALER CBC W/DIFF AUTOMATED STAT 08/10/2017 1:00 PM OLD COIN DEALER INFLUENZA A & B STAT 08/10/2017 12:36 PM OLD COIN DEALER documented in this encounter Results * CULTURE, BACTERIA, BLOOD (08/10/2017 1:00 PM OLD COIN DEALER) SPEC DESCRIPTION BLOOD 08/10/2017 12:35 PM OLD COIN DEALER [facility] SPECIAL REQUESTS NO SPECIAL REQUEST 08/10/2017 12:35 PM OLD COIN DEALER [facility] CULTURE RESULT NO GROWTH 5 DAYS 08/15/2017 12:09 PM OLD COIN DEALER [facility] BLOOD SPECIMEN OBTAINED FOR BLOOD CULTURE / Unknown 08/10/2017 1:00 PM OLD COIN DEALER 08/10/2017 1:08 PM OLD COIN DEALER us Generic Conversion Md SONG MICROBIOLOGY - GENERAL ORDERABLES Final Result [facility] [address] [place] [address], [place] [phone] [facility] [address] [place] [address], * (ABNORMAL) COMPREHENSIVE METABOLIC PANEL (08/10/2017 1:00 PM [facility] GLUCOSE 100 80 - 115 MG/DL 08/10/2017 1:31 PM [facility] BUN 10 9.8 - 20.1 MG/DL 08/10/2017 1:31 PM [facility] CREATININE S/P/B 0.76 0.57 - 1.11 MG/DL 08/10/2017 1:31 PM [facility] SODIUM S/P/B 141 136 - 145 MMOL/L 08/10/2017 1:31 PM [facility] POTASSIUM S/P/B 3.1(L) 3.5 - 5.1 MMOL/L 08/10/2017 1:31 PM [facility] CHLORIDE S/P/B 101 98 - 107 MMOL/L 08/10/2017 1:31 PM [facility] CO2 33.0(H) 23 - 31 MMOL/L 08/10/2017 1:31 PM [facility] ANION GAP 10.1 10.0 - 24.0 MMOL/L 08/10/2017 1:31 PM [facility] OSMOLALITY (CALC) 280 271 - 290 MOSM/KG 08/10/2017 1:31 PM [facility] CALCIUM S/P/B 9.2 8.4 - 10.2 MG/DL 08/10/2017 1:31 PM [facility] BILIRUBIN TOTAL S/P/B 0.6 0.2 - 1.2 MG/DL 08/10/2017 1:31 PM [facility] TOTAL PROTEIN S/P/B 7.5 6.4 - 8.3 G/DL 08/10/2017 1:31 PM [facility] ALBUMIN S/P/B 4.0 3.4 - 4.8 G/DL 08/10/2017 1:31 PM [facility] AST 39(H) 5 - 34 U/L 08/10/2017 1:31 PM [facility] ALT 32 6 - 55 U/L 08/10/2017 1:31 PM [facility] ALKALINE PHOSPHATASE S/P/B 88 30 - 130 U/L 08/10/2017 1:31 PM [facility] BUN CREATININE RATIO 13.2 6.0 - 26.0 08/10/2017 1:31 PM [facility] A/G RATIO 1.1 1.1 - 1.9 RATIO 08/10/2017 1:31 PM [facility] EGFR NON-AFR. AMER. >60 >60 ML/MIN/1.7 3 M2 08/10/2017 1:31 PM [facility] Comment: GFR Reference Range:Kidney Failure - <15mL/min ?Chronic Kidney Disease - <60mL/min ?? Normal Kidney Function - >60mL/min ?? GFR calculation is not recommended forPatients less than 18 years or greater than70 years as per the national Kidney Foundation.If the patient is -Albanian, multiply results by 1.21 08/10/2017 1:00 PM OLD COIN DEALER 08/10/2017 1:07 PM OLD COIN DEALER us Generic Conversion Md [facility] LABORATORY Final R esult [facility] [address] [place] [address], * (ABNORMAL) CBC W/DIFF AUTOMATED (08/10/2017 1:00 PM OLD COIN DEALER) WBC 5.3 4.4 - 11.0 x10'3/uL 08/10/2017 1:12 PM [facility] RBC 4.98 4.50 - 5.10 x10'6/uL 08/10/2017 1:12 PM [facility] HGB 14.0 12.3 - 15.3 G/DL 08/10/2017 1:12 PM [facility] HCT 43.2 35.9 - 44.6 % 08/10/2017 1:12 PM [facility] MCV 86.7 80.0 - 96.0 FL 08/10/2017 1:12 PM [facility] MCH 28.1 25.3 - 30.9 PG 08/10/2017 1:12 PM [facility] MCHC 32.4 31.0 - 34.1 G/DL 08/10/2017 1:12 PM [facility] RDW 13.9 12.4 - 15.1 % 08/10/2017 1:12 PM [facility] PLT 226 151 - 353 x10'3/uL 08/10/2017 1:12 PM [facility] MPV 9.5(L) 9.6 - 12.0 FL 08/10/2017 1:12 PM [facility] RBC MORPHOLOGY NORMAL 08/10/2017 1:12 PM [facility] PLT MORPH. NORMAL 08/10/2017 1:12 PM [facility] WBC MORPHOLOGY NORMAL 08/10/2017 1:12 PM [facility] LYMPHOCYTES % 24.2 15.8 - 45.0 % 08/10/2017 1:12 PM [facility] NEUTROPHILS % 54.2 42.1 - 71.9 % 08/10/2017 1:12 PM [facility] MONOCYTES % 12.6(H) 5.7 - 12.5 % 08/10/2017 1:12 PM [facility] EOSINOPHILS 7.7(H) 0.0 - 5.6 % 08/10/2017 1:12 PM OLD COIN DEALER [facility] BASOPHILS 1.1 0.0 - 1.3 % 08/10/2017 1:12 PM [facility] ABS. NEUTROPHILS TOTAL 2.88 1.40 - 6.00 x10'3/uL 08/10/2017 1:12 PM OLD COIN DEALER [facility] IMMATURE GRANS % 0.2 0.0 - 0.5 % 08/10/2017 1:12 PM OLD COIN DEALER [facility] ABS. LYMPHOCYTES 1.29 0.80 - 4.70 x10'3/uL 08/10/2017 1:12 PM [facility] 08/10/2017 1:00 PM OLD COIN DEALER 08/10/2017 1:07 PM OLD COIN DEALER us Generic Conversion Md [facility] LABORAT[facility] Final R esult Performing Organization Address City/[facility]/ZIP Co de Phone Number [facility] [address] [place] [address], [place] [phone] * INFLUENZA A & B (08/10/2017 12:36 PM OLD COIN DEALER) SPECIMEN TYPE NASOPHARYNGEAL SWAB 08/10/2017 12:36 PM OLD COIN DEALER [facility] INFLUENZA A NEGATIVE NEGATIVE 08/10/2017 12:51 PM OLD COIN DEALER [facility] INFLUENZA B NEGATIVE NEGATIVE 08/10/2017 12:51 PM OLD COIN DEALER [facility] 08/10/2017 12:3 6 PM OLD COIN DEALER 08/10/2017 12:36 PM OLD COIN DEALER us Generic Conversion Md [facility] MICROBIOLOGY - GENERAL ORDERABLES Final Result Performing Organization Address City/[facility]/ZIP Co de Phone Number [facility] [address] [place] [address], [place] [phone] documented in this encounter Visit Diagnoses Diagnosis Acute bronchitis documented in this encounter
--- OUTSIDE RECORDS SUMMARY | 2024-08-29 10:01 | XMS_ITS | Encounter Summary ---
Author Organization [facility] Address [address] [place] [address]. [place] [address] [place] [address] Care Team Providers Care Senior Litigation Paralegal Name Role Phone Israel Shaver MD Primary Care Provider Unavailabl e Reason for Referral * Imaging (Routine) - Closed Specialty Diagnoses / Procedures Referred By Contac t Referred To Contact RADIOLOGY Diagnoses Breast cancer screening by mammogram Procedures MG SCREENING W MORENA MARCY Israel Villafuerte MD [facility] [address] [facility] [address] [place] [address] Phone: tel: fax: Referral ID Status Reason Start Date Expiration Date Visits Re quested Visits Authorized [id number] Closed 04/26/2020 05/27/2021 1 1 Reason for Visit * Reason Comments Rash arms, feet Physical est care Encounter Details Date Type Department Care Team (Late st Contact Info) Description 04/26/2020 10:20 AM CDT Office Visit [facility] Family [facility] [address] [place] [address] [place] [phone] Israel Shaver MD Rash (arms, feet); Physical (est care) Social History Tobacco Use Types Packs/Day Years Used Date Smoking Tobacco: Never Smokeless Tobacco: Never Alcohol Use Standard Drinks/Week Comments Yes 0 (1 standard drink = 0.6 oz pur e alcohol) social PHQ-2 Answer Date Recorded PHQ-2 Score 0 04/26/2020 Comments No Sex and Gender Information Value Date Recorded Sex Assigned at Not on file Legal Sex Female 10:22 PM [employer] Gender Identity Female 09/12/2021 9:51 AM [employer] S[employer] Sexual Orientation Straight 09/12/2021 9: 51 AM [employer]RIAR [employer]TER COVID-19 Exposure Response Date Recorded In the last month, have you been in contact with someone who was confirmed or suspected to have Coronavirus / COVID-19? No / Unsure 04/26/2020 9:58 AM CDT documented as of this encounter Last Filed Vital Signs Vital Sign Reading Time Taken Comments Blood Pressure 118/70 04/26/2020 10:11 AM CDT Pulse 71 04/26/2020 10:11 AM CDT Temperature 36.8 ??C (98.2 ??F) 04/26/2020 10:11 AM C DT Respiratory Rate 16 04/26/2020 10:11 AM CDT Oxygen Saturation 96% 04/26/2020 10:11 AM CDT Inhaled Oxygen Concentration - - Weight 66.7 kg (147 lb) 04/26/2020 10:11 AM CDT Height 152.4 cm (5') 04/26/2020 10:11 AM CDT Body Mass Index 28.71 04/26/2020 10:11 AM CDT documented in this encounter Patient Instructions * Patient Instructions* Israel Shaver MD - 04/26/2020 10:20 AM CDT Images from the original note were not included. Patient Education Patient Education Please discussed with your specialist regarding lupus and possible treatment plans for the tremor. Very small studies and treatment with corticosteroid therapy. Essential tremors worked very well with propanolol. Please be advised this may not be helpful in your particular situation but it would beof benefit to discuss any treatments that may benefit the tremor. 50% of all people with lupus experience sensitivity to sunlight and other sources of UV radiation, including artificial lighting. For many people, sun exposure causes exaggerated sunburn-like reactions and skin rashes, yet sunlight can precipitate lupus flares involving other parts of the body. Forthis reason, sun protection is very important for people with lupus. Since both UV-A and UV-B rays are known to cause activation of lupus, patients should wear sunscreen containing Helioplex and an SPF of 70 or higher. Sunscreen should be applied everywhere, including areas of your skin covered by clothing, since most clothing items contain an SPF of only about 5. Be sure to reapply as directed on the bottle, since sweat and prolonged exposure can cause coverage to dissipate Tremor The Basics Written by the doctors and editors at [facility] What is tremor???--??Tremor is the medical term for trembling or shaking. A person with tremor has a body part that shakes, and the person cannot control the shaking. Most often this shaking affects the hands or the head, but other body parts can be affected, too. The tremor can be a problem on itsown, or it can be caused by another health problem. There are several different types of tremor. They fall into several main groups: ?? Rest tremors - Rest tremors happen while you are sitting or lying down and relaxed. People who have a rest tremor can usually stop the tremor by making a point of moving the part of their body that shakes. ?? Action tremors - Action tremors happen when you are moving your muscles on purpose. There are a few different kinds of action tremors, including: ? Kinetic tremors - These happen when you move on purpose, such as writing or drinking from a cup. Sometimes, the tremor gets worse gradually as you get closer to what you trying to do or reach. Thisis called intention tremor. ? Postural tremors - These happen when you try to hold a body part still in a position other than its resting position. For example, your legs might shake when you are standing up, or your arms mightshake if you hold them out in front of you. ? Isometric tremors - These happen when you move a muscle against something that is still. For example, they might happen when you push against a wall or make a fist with your hand. ?? Functional tremor - Functional tremor can combine features of rest and action tremors. Unlike other kinds of tremor, functional tremor has no known medical cause. This kind of tremor usually gets less severe if you are distracted while your doctor examines you, for example, if they ask you to dosomething else with another part of your body. Other types of tremor tend to get worse with distract ion. What are the most common causes of rest tremor???--??The most common cause of rest tremor is Parkinson disease. If that is the cause of your tremor, your doctor or nurse will probably focus on treating your Parkinson disease. This will hopefully help reduce your tremor. Other problems that can cause rest tremors include diseases that damage parts of the brain, and a rare condition called Elkin disease, which causes copper to build up in the body. What are the most common causes of action tremor???--??The most common cause is something called a physiologic tremor. Everyone, even people who are healthy, has a little bit of shaking of the hands. This is what doctors refer to as physiologic tremor. It is normal, and you don't usually noticeit, because it is very mild. But in some cases this physiologic or normal tremor can become exaggerated. This can happen: ?? If you take certain medicines, such as those used to treat depression, or asthma and other breathing problems ?? If you drink coffee, smoke cigarettes, or use stimulants (including caffeine and certain medicines) ?? If you are anxious, excited, or afraid ?? If your muscles are very tired, for example because you just worked out ?? As the effects of alcohol or other drugs are wearing off ?? If you have an overactive thyroid gland ?? If you have a fever If your tremor is caused by 1 of the problems listed above, the tremor should go away as soon as the problem goes away. Of course, if your tremor is caused by a medicine, you might not be able to stop taking it. But it might be possible to switch medicines or to lower the dose. What is essential tremor???--??Essential tremor is a nervous system problem that causes action tremor. It is different from physiologic tremor in that it is not related to medicines, substances, or physical conditions such as fever. Essential tremor can be passed on in families. People who have essential tremor usually shake when they try to hold their arms out straight. They also tend to shake when they move their hands with a goal in mind. For instance, their hands might shake when they try to write, drink from a glass, or touch their nose with their finger. Essential tremor sometimes even affects the head. This makes it look as though the person is nodding their head yes-yes or shaking their head no-no. Is there a test to find out the cause of tremor???--??No, there is no test. But your doctor or nurse can learn about a lot about your tremor just by asking you questions and watching you move. Your doctor or nurse might send you for a brain scan or blood tests to make sure your tremor is not causedby something serious. But it's likely that they will be able to tell what's wrong just by doing an e xam. How is tremor treated???--??If a tremor is caused by another medical problem, treating that problem- if it can be treated - sometimes helps reduce the tremor, too. For example, people whose tremor is caused by high thyroid hormone levels often stop shaking when their hormone levels go back to normal. Even when no other medical problems are involved, there are treatments that can help. There are a few medicines that can reduce a person's tremor. If the medicines are not effective enough and the tremor is severe, it is even possible to have a device implanted in the brain that can help control tremor. All topics are updated as new evidence becomes available and our peer review process is complete. This topic retrieved from [employer] on: Feb 25, 2020. Topic 16534 Version 7.0 Release: 28.3.2 - C28.250 ?2020??[employer] and/or its affiliates.??All rights reserved. Consumer Information Use and Disclaimer This information [...] or not to accept your health care provider's advice, instructions or recommendations. Only your health care provider has the knowledge and training to provide advice that is right for you.The use of [employer] content is governed by the [employer] Terms of Use. ??2020 [employer]. All rights reserved. Copyright ?2020??[employer] and/or its affiliates.??All rights reserved. Patient Education Patient Education Lupus The Basics Written by the doctors and editors at [employer] What is lupus???--??When it is working normally, the body's immune system kills germs and bad cells that could turn into cancer. Sometimes, instead of killing only bad cells, something goes wrong and the immune system starts to attack healthy cells. That is called an autoimmune response. It is what happens in lupus. In other words, if you have lupus, your body is attacking itself. What are the symptoms of lupus???--??People with lupus can: ?? Feel tired or weak ?? Lose or gain weight ?? Get fevers ?? Get headaches ?? Get a butterfly-shaped rash on their nose and cheeks, especially after being in the sun ?? Lose some hair ?? Get chest pain ?? Have trouble breathing ?? Bruise easily ?? Have joint pain and stiffness ?? Have swelling in the hands, feet, belly, or around the eyes ?? Have urine that looks brown (tea-colored) or foamy ?? Get sores in the mouth ?? Get cold fingers or toes that turn pale or blue Lupus can also make it hard to think clearly, and it can make people feel anxious and sad. That is partly because the disease attacks the brain, and partly because the disease is hard to deal with. Can I do anything on my own to feel better???--??Yes. It can help to eat a healthy diet, full of fruits and vegetables. It's also important to stay active, even if you do not feel well. If you rest too much, your muscles will get weak and you might feel even worse later. Also, any time a doctor or nurse gives you medicine, make sure he or she knows you have lupus. Some medicines make lupus worse.It is important that you not take them. What are the treatments for lupus???--??There are medicines that can ease lupus symptoms, decrease the autoimmune response, or both. These medicines include: ?? NSAIDs, such as ibuprofen (sample brand names: Advil, Motrin) or naproxen (sample brand name: Aleve), which can ease joint pain ?? Medicines called hydroxychloroquine or chloroquine, which were originally made to treat malaria but can also help with lupus ?? Steroids and related medicines, which partly turn off the immune system, and can help with many of the problems caused by lupus (these are not the same as the steroids some athletes take illegally) Steroids can do a lot of good, because they control the disease. But they can also cause problems of their own. For instance, steroids can cause weight gain, make bones weak, or make diabetes worse (or even cause diabetes). What if I want to get ???--??Women with lupus are more likely than other women to have problems with . But they can have healthy babies. If you would like to get , speak with your doctor or nurse before you start trying to get . There are ways for you to reduce the chances of having problems. For instance, it is important that you wait until you have not had lupus symptoms for at least 6 months. How will lupus affect my life???--??You will have lupus for the rest of your life. It might be severe, or it might be mild. Either way, doctors and nurses today know a lot about how to handle the disease. You are likely to live a long time. And you might even find that your symptoms go away for long periods. All topics are updated as new evidence becomes available and our peer review process is complete. This topic retrieved from [employer] on: Feb 25, 2020. Topic 12137 Version 11.0 Release: 28.3.2 - C28.250 ?2020??[employer] and/or its affiliates.??All rights reserved. picture 1: Butterfly rash caused by lupus Lupus can cause a rash on the face that looks like this. Doctors sometimes call it a butterfly rash. Graphic 97974 Version 7.0 Consumer Information Use and Disclaimer This information [...] or not to accept your health care provider's advice, instructions or recommendations. Only your health care provider has the knowledge and training to provide advice that is right for you.The use of [employer] content is governed by the [employer] Terms of Use. ??2020 [employer]. All rights reserved. Copyright ?2020??[employer] and/or its affiliates.??All rights reserved. Patient Education Patient Education Controlling Your Blood Pressure Through Lifestyle The Basics Written by the doctors and editors at [employer] What does my lifestyle have to do with my blood pressure???--??The things you do and the foods you eat have a big effect on your blood pressure and your overall health. Following the right lifestyle can: ?? Lower your blood pressure or keep you from getting high blood pressure in the first place ?? Reduce your need for blood pressure medicines ?? Make medicines for high blood pressure work better, if you do take them ?? Lower the chances that you'll have a heart attack or stroke, or develop kidney disease Which lifestyle choices will help lower my blood pressure???--??Here's what you can do: ?? Lose weight (if you are overweight) ?? Choose a diet rich in fruits, vegetables, and low-fat dairy products, and low in meats, sweets, and refined grains ?? Eat less salt (sodium) ?? Do something active for at least 30 minutes a day on most days of the week ?? Limit the amount of alcohol you drink If you have high blood pressure, it's also very important to quit smoking (if you smoke). Quitting smoking might not bring your blood pressure down. But it will lower the chances that you'll have a heart attack or stroke, and it will help you feel better and live longer. Start low and go slow??--??The changes listed above might sound like a lot, but don't worry. You don't have to change everything all at once. The noguera to improving your lifestyle is to start low and go slow. Choose 1 small, specific thing to change and try doing it for a while. If it works for you, keep doing it until it becomes a habit. If it doesn't, don't give up. Choose something else to change and see how that goes. Let's say, for example, that you would like to improve your diet. If you're the type of person who eats cheeseburgers and Swedish fries all the time, you can't switch to eating just salads from one day to the next. When people try to make changes like that, they often fail. Then they feel frustratedand tend to give up. So instead of trying to change everything about your diet in 1 day, change 1 or 2 small things about your diet and give yourself time to get used to those changes. For instance, keep the cheeseburger but give up the Swedish fries. Or eat the same things but cut your portions in half. As you find things that you are able to change and stick with, keep adding new changes. In time, you will see that you can actually change a lot. You just have to get used to the changes slowly. Lose weight??--??When people think about losing weight, they sometimes make it more complicated than it really is. To lose weight, you have to either eat less or move more. If you do both of those things, it's even better. But there is no single weight-loss diet or activity that's better than any other. When it comes to weight loss, the most effective plan is the one that you'll stick with. Improve your diet??--??There is no single diet that is right for everyone. But in general, a healthy diet can include: ?? Lots of fruits, vegetables, and whole grains ?? Some beans, peas, lentils, chickpeas, and similar foods ?? Some nuts, such as walnuts, almonds, and peanuts ?? Fat-free or low-fat milk and milk products ?? Some fish To have a healthy diet, it's also important to limit or avoid sugar, sweets, meats, and refined grains. (Refined grains are found in white bread, white rice, most forms of pasta, and most packaged snack foods.) Reduce salt??--??Many people think that eating a low-sodium diet means avoiding the salt shaker andnot adding salt when cooking. The truth is, not adding salt at the table or when you cook will onlyhelp a little. Almost all of the sodium you eat is already in the food you buy at the grocery storeor at restaurants (figure 1). The most important thing you can do to cut down on sodium is to eat less processed food. That meansthat you should avoid most foods that are sold in cans, boxes, jars, and bags. You should also eat in restaurants less often. To reduce the amount of sodium you get, buy fresh or fresh-frozen fruits, vegetables, and meats. (Fresh-frozen foods have had nothing added to them before freezing.) Then you can make meals at home, from scratch, with these ingredients. As with the other changes, don't try to cut out salt all at once. Instead, choose 1 or 2 foods thathave a lot of sodium and try to replace them with low- sodium choices. When you get used to those low-sodium options, find another food or 2 to change. Then keep going, until all the foods you eat aresodium-free or low in sodium. Become more active??--??If you want to be more active, you don't have to go to the gym or get all sweaty. It is possible to increase your activity level while doing everyday things you enjoy. Walking, gardening, and dancing are just a few of the things that you might try. As with all the other changes, the noguera is not to do too much too fast. If you don't do any activity now, start by walking for just a few minutes every other day. Do that for a few weeks. If you stick with it, try doing it for longer. But if you find that you don't like walking, try a different activity. Drink less alcohol??--??If you are a woman, do not have more than 1 standard drink of alcohol a day. If you are a man, do not have more than 2. A standard drink is: ?? A can or bottle that has 12 ounces of beer ?? A glass that has 5 ounces of wine ?? A shot that has 1.5 ounces of whiskey Where should I start???--??If you want to improve your lifestyle, start by making the changes that you think would be easiest for you. If you used to exercise and just got out of the habit, maybe it would be easy for you to start exercising again. Or if you actually like cooking meals from scratch,maybe the first thing you should focus on is eating home-cooked meals that are low in sodium. Whatever you tackle first, choose specific, realistic goals, and give yourself a deadline. For example, do not decide that you are going to exercise more. Instead, decide that you are going to walkfor 10 minutes on Saturday, Saturday, and Saturday, and that you are going to do this for the next 2 weeks. When lifestyle changes are too general, people have a hard time following through. Now go. You can do it! All topics are updated as new evidence becomes available and our peer review process is complete. This topic retrieved from [employer] on: Feb 25, 2020. Topic 30852 Version 7.0 Release: 28.3.2 - C28.250 ?2019??[employer]. and/or its affiliates.??All rights reserved. figure 1: Sources of sodium in your diet Graphic 96632 Version 2.0 Consumer Information Use and Disclaimer This information [...] or not to accept your health care provider's advice, instructions or recommendations. Only your health care provider has the knowledge and training to provide advice that is right for you.The use of [employer] content is governed by the [employer] Terms of Use. ??2020 [employer]. All rights reserved. Copyright ?2020??[employer]. and/or its affiliates.??All rights reserved. documented in this encounter Progress Notes * Israel Shaver MD - 04/26/2020 10:20 AM CDT Reason for Visit: Rash (arms, feet) and Physical (est care) History of Present Illness: RADHA Barroso is a 69 y.o. female who is here to establish care. She is a right handed woman with PMH of migraines with aura, transient global amnesia, SLE, TGA (x2), GERD, OA, and MDD hospitalization for subcortical left MCA stroke. she has had recurrent subcortical strokes, likely due to ateriorolosclerotic risk factors. According to records it stated she had a patent foramen ovale and atrial fibrillation seen by cardiology. Cardiology and Neurology had recommended aggressive BP control Continue treatment with high dose atorvastatin. Treatment with Eliquis for anticoagulation per Dr. Urban Duggan (cardiology) indicated that he would like to continue Eliquis due to suspicion of atrial fibrillation. She is tolerating Eliquis without complications. She continues to complain of tremor in her right hand, which sometimes leads to spilling of liquids, but is not affecting life style in a major way. She indicates that she is not interested in medications. She does not have tremor in her left hand. She notes that she has numbness in both of her feet, and is undergoing work-up for neuropathy. She was evaluated by gastroenterology for gastroesophageal reflux disease and rare regurgitation. .Daily Protonix had not helped. She though her Sx improved after she quit taking metoprolol, but they came back. Has a remote history of treatment for H pylori. RUQ US and HIDA both done and evaluatedfor other causes of upper abdominal pain -- normal in both cases. Last EGD was about 2 years ago and was normal. Next colonoscopy due in 2020. She was referred to GI and given dexilant 60 mg daily Patient has had multiple orthopedic procedures. 10/15/2016 Release of right long, ring, and small finger triggers Bilateral thumb (R>L) and left long finger (minimally symptomatic) triggering, most severe symptoms and right thumb. 03/28/20 right thumb A1 luis alberto release, left thumb steroid injection Patient complains of a rash that she thinks is due to being outside in the sun Location: Both arms and both legs Quality: Itchy and scaly Severity: 2 out of 10 Duration: She had a about 2 1/2 weeks ago resolved over the past 3 days Timing: Constant Modifying factors: Made worse by being in the sun and some of her medication she believes improves by placing [place] Associated symptoms:none Medications: Current Outpatient Medications: ??? [...] 90 DAYS, Disp: , Rfl: ??? metoprolol tartrate 25 MG tablet, , Disp: , Rfl: ??? montelukast 10 MG tablet, TAKE 1 TABLET BY MOUTH EVERY DAY EVERY NIGHT, Disp: , Rfl: ??? nitroglycerin 0.4 MG SL tablet, May repeat dose every 5 minutes for up to 3 doses total., Disp:, Rfl: ??? PARoxetine 20 MG tablet, TAKE 1 TABLET BY MOUTH EVERY DAY, Disp: , Rfl: ??? potassium chloride CR 20 MEQ tablet, TAKE 2 TABLETS EVERY MORNING AND 2 TABLETS EVERY EVENING, Disp: , Rfl: ??? bisoprolol 5 MG tablet, TAKE 1 TABLET BY MOUTH EVERY DAY, Disp: , Rfl: ??? etodolac 400 MG tablet, , Disp: , Rfl: ??? Methscopolamine [place] 5 MG Tab, Take 5 mg by mouth daily., Disp: , Rfl: ??? ondansetron 4 MG [...] Review of Systems Constitutional: Negative for chills, fever, malaise/fatigue and weight loss. HENT: Negative for congestion, ear pain, hearing loss, nosebleeds, sinus pain, sore throat and tinnitus. Eyes: Negative for blurred vision, double vision, photophobia, pain, discharge and redness. Respiratory: Negative for cough, hemoptysis, sputum production, shortness of breath and wheezing. Cardiovascular: Positive for leg swelling. Negative for chest pain, palpitations, orthopnea, claudication and PND. Patient has a history of leg swelling and utilizes furosemide but the legs have not been swelling for at least 2 weeks Gastrointestinal: Positive for heartburn. Negative for abdominal pain, blood in stool, constipation, diarrhea, melena, nausea and vomiting. Patient's heartburn is consistent she is tried multiple medications including PPIs but has read that Zantac was pulled because of the association with cancer so she did not feel comfortable has attempted cimetidine in the past with no improvement and has had an upper EGD that demonstrated severe reflux and excessive gastric acid release Genitourinary: Negative for dysuria, flank pain, frequency, hematuria and urgency. Musculoskeletal: Negative for back pain, falls, joint pain, myalgias and neck pain. Skin: Positive for rash. Negative for itching. She had a rash that popped up about 2-1/2 weeks ago was excessively itchy the more she scratched itlook to become slightly more scaly then she placed Goldbond on it and it slowly dissipated over time she realized that the more she was out in the sun the worst that was started avoiding the sun and the rash improved Neurological: Positive for tremors. Negative for dizziness, tingling, sensory change, speech change, seizures, weakness and headaches. Endo/Heme/Allergies: Negative for environmental allergies and polydipsia. Does not bruise/bleed easily. Psychiatric/Behavioral: Negative for depression, hallucinations, memory loss, substance abuse and suicidal ideas. The patient is nervous/anxious. The patient does not have insomnia. Has a history of being anxious seems to be more anxious currently regarding the pandemic and getting sick does not affect her daily life Physical Exam Constitutional: She is oriented to person, place, and time. Vital signs are normal. She appears well-developed and well-nourished. She is active. Non-toxic appearance. She does not have a sickly appearance. She does not appear ill. No distress. HENT: Head: Normocephalic and atraumatic. Right Ear: Hearing, tympanic membrane, external ear and ear canal normal. Left Ear: Hearing, tympanic membrane, external ear and ear canal normal. Nose: No mucosal edema, rhinorrhea, sinus tenderness, nasal deformity or septal deviation. Right sinus exhibits no maxillary sinus tenderness and no frontal sinus tenderness. Left sinus exhibits no maxillary sinus tenderness and no frontal sinus tenderness. Mouth/Throat: Uvula is midline, oropharynx is clear and moist and mucous membranes are normal. She does not have dentures. Normal dentition. No oropharyngeal exudate, posterior oropharyngeal edema orposterior oropharyngeal erythema. Neck: Trachea normal, normal range of motion, full passive range of motion without pain and phonation normal. Neck supple. Normal carotid pulses and no JVD present. Carotid bruit is not present. No Brudzinski's sign and no Kernig's sign noted. No thyroid mass and no thyromegaly present. Cardiovascular: Normal rate, regular rhythm, S1 normal, S2 normal and intact distal pulses. PMI is not displaced. Exam reveals no S3, no S4, no distant heart sounds, no friction rub and no decreased pulses. No murmur heard. Pulses: Carotid pulses are 2+ on the right side, and 2+ on the left side. Radial pulses are 2+ on the right side, and 2+ on the left side. Popliteal pulses are 2+ on the right side, and 2+ on the left side. Dorsalis pedis pulses are 2+ on the right side, and 2+ on the left side. Posterior tibial pulses are 2+ on the right side, and 2+ on the left side. Pulmonary/Chest: Effort normal. No accessory muscle usage. No respiratory distress. She has no decreased breath sounds. She has no wheezes. She has no rhonchi. She has no rales. Abdominal: Soft. Normal appearance, normal aorta and bowel sounds are normal. She exhibits no shifting dullness, no distension, no abdominal bruit, no ascites and no pulsatile midline mass. There is no hepatosplenomegaly. There is no tenderness. There is no rebound, no CVA tenderness, no tendernessat McBurney's point and negative Yarbrough's sign. No hernia. Musculoskeletal: Right shoulder: Normal. Left shoulder: Normal. She exhibits normal range of motion and no deformity. Right elbow: Normal.She exhibits normal range of motion, no swelling and no effusion. Left elbow: Normal. She exhibits normal range of motion, no swelling and no effusion. Right wrist: Normal. She exhibits normal range of motion, no tenderness and no bony tenderness. Left wrist: Normal. She exhibits normal range of motion, no tenderness and no bony tenderness. Right knee: Normal. She exhibits normal range of motion, no swelling, no effusion and no deformity.No tenderness found. No medial joint line and no lateral joint line tenderness noted. Left knee: Normal. She exhibits normal range of motion, no swelling, no effusion and no deformity. No tenderness found. No medial joint line and no lateral joint line tenderness noted. Right ankle: Normal. She exhibits normal range of motion and no swelling. No tenderness. No lateralmalleolus and no medial malleolus tenderness found. Left ankle: Normal. She exhibits normal range of motion and no swelling. No lateral malleolus and no medial malleolus tenderness found. Cervical back: Normal. She exhibits normal range of motion, no tenderness and no bony tenderness. Small bakers cyst left popliteal space Lymphadenopathy: Head (right side): No submandibular and no posterior auricular adenopathy present. Head (left side): No submandibular and no posterior auricular adenopathy present. She has no cervical adenopathy. She has no axillary adenopathy. Right: No supraclavicular adenopathy present. Left: No supraclavicular adenopathy present. Neurological: She is alert and oriented to person, place, and time. She has normal strength and normal reflexes. She displays no tremor. No cranial nerve deficit or sensory deficit. She exhibits normal muscle tone. Coordination and gait normal. GCS eye subscore is 4. GCS verbal subscore is 5. GCS motor subscore is 6. Reflex Scores: Tricep reflexes are 2+ on the right side and 2+ on the left side. Bicep reflexes are 2+ on the right side and 2+ on the left side. Brachioradialis reflexes are 2+ on the right side and 2+ on the left side. Patellar reflexes are 2+ on the right side and 2+ on the left side. Achilles reflexes are 2+ on the right side and 2+ on the left side. Tremor right hand Skin: Skin is warm, dry and intact. Rash noted. No bruising, no laceration and no petechiae noted. Rash is urticarial. No cyanosis or erythema. Nails show no clubbing. reoslving urticarial rash over both legs and arms Psychiatric: Her speech is normal and behavior is normal. Judgment and thought content normal. Her mood appears anxious. She is not agitated, not hyperactive and not slowed. Thought content is not paranoid and not delusional. Cognition and memory are normal. Cognition and memory are not impaired. She does not express inappropriate judgment. She does not exhibit a depressed mood. Patient is not anxious in the fact that she has generalized anxiety disorder but is currently very anxious about her current situation with the pandemic as she does have a neurologic and some mildly decreased immune issues Right Knee Exam Other Effusion: no effusion present Left Knee Exam Other Effusion: no effusion present Filed Vitals: 04/26/20 1011 BP: 118/70 Pulse: 71 Resp: 16 Temp: 98.2 ??F (36.8 ??C) TempSrc: Temporal SpO2: 96% Weight: 66.7 kg (147 lb) Height: 5' (1.524 m) Screening forms: PHQ-9: PHQ-9: Over the last two weeks, how often have you been bothered by any of the following problems? 04/26/2020 LITTLE INTEREST OR PLEASURE IN DOING THINGS 0-Not at All FEELING DOWN, DEPRESSSED,OR HOPELESS 0-Not at All PHQ2 DEPRESSION TOTAL SCORE 0 JEET-7 (Generalized Anxiety Disorder) Screening JEET-7 04/26/2020 [...] at all Total Score 6 Assessment/Recommendations/Plan 1. Essential hypertension 2. Rash 3. Late, effect, cerebrovascular disease 4. Tremor 5. Systemic lupus erythematosus, unspecified SLE type, unspecified organ involvement status ([facility]/HCC) 6. Gastroesophageal reflux disease without esophagitis 7. Paroxysmal atrial fibrillation ([facility]) 8. Breast cancer screening by mammogram - MG SCREENING W MORENA MARCY DIGI 9. Adult BMI 28.0-28.9 kg/sq m 10. Anxiety state I spent 60 minutes with the patient. We reviewed her medical records. Medications, need for immunizations and up to care such as mammogram and colonoscopies and Physical examination and Greater than 50% of this was face to face time with the patient. Risks, benefits and side effects of all medications up to and including were thoroughly discussed with the patient. This included the patients physical condition and diagnosis, medications, OTCsupplements and non pharmalogic treatment plans.The patient is alert and oriented x 4 and stated complete understanding. I have asked that if the patient has any further questions in the future please call the office or contact us through the patient portal. Patient can schedule for upcoming appointments as well. If any emergency arises such as a reaction to any medication, food or supplement such as shortness of breath, chest pain report immediately to the emergency room.Regarding medications I have asked the patient to Always double-check that you have the right medicine. Keep medicines in their original labeled containers, whenever possible. Never combine different medicines in the same bottle. Read and follow the directions on the label. 1) patient states that she was previously on hydrochlorothiazide 25 mg 1 tablet daily along with metoprolol 25 mg 1 tablet daily her blood pressure was so well controlled that they have taken her offthe metoprolol 25 mg. I have expressed the importance of maintaining good blood pressure control due to the history of strokes. She was confused on medications therefore I did I explained that hypertension is classified as Stage 1 - Systolic 130 to 139 mmHg or diastolic 80 to 89 mmHg Stage 2 - Systolic at least 140 mmHg or diastolic at least 90 mmHg I explained that instructed to use a validated, automated oscillometric device that measures blood pressure in the brachial artery (upper arm) and to perform measurements in a quiet room after five minutes of rest in the seated position with the back and arm supported and legs uncrossed. At least 12 to 14 measurements should be obtained, with both morning and evening measurements taken, over a period of one week. Dietary salt restriction. Aerobic exercise, and possibly resistance training, can decrease systolicand diastolic pressure by, on average, 4 to 6 mmHg and 3 mmHg, respectively, independent of weight loss. Most studies demonstrating a reduction in blood pressure have employed three to four sessions per week of moderate-intensity aerobic exercise lasting approximately 40 minutes for a period of 12 weeks. An BRANDON inhibitor or ARB should be used for initial monotherapy in patients who have diabetic nephropathy or nondiabetic chronic kidney disease complicated by proteinuria.When more than one agent is needed to control the blood pressure, recommended therapy with a long-acting BRANDON inhibitor or ARB in concert with a long-acting dihydropyridine calcium channel naye. If Bp satys elevated despitedespite use of two antihypertensive medications, the therapy with BRANDON inhibitor or ARB in conjunction with both a long-acting dihydropyridine calcium channel naye and athiazide-like diuretic, chlorthalidone is preferred. If a long-acting dihydropyridine calcium channel naye is not tolerated due to leg swelling, a non-dihydropyridine calcium channel naye like verapamil or diltiazem may be used instead. If a thiazide- like diuretic is not tolerated or is contraindicated, a mineralocorticoid receptor antagonist such as spironolactone may be used. 2) I explained and placed in her discharge instructions that 50% of all people with lupus experience sensitivity to sunlight and other sources of UV radiation, including artificial lighting. For manypeople, sun exposure causes exaggerated sunburn-like reactions and skin rashes, yet sunlight can precipitate lupus flares involving other parts of the body. For this reason, sun protection is very important for people with lupus. Since both UV-A and UV-B rays are known to cause activation of lupus,patients should wear sunscreen containing Helioplex and an SPF of 70 or higher. Sunscreen should beapplied everywhere, including areas of your skin covered by clothing, since most clothing items contain an SPF of only about 5. Be sure to reapply as directed on the bottle, since sweat and prolongedexposure can cause coverage to dissipate About 10% of all people with lupus will experience hives (urticaria). These lesions usually itch, and even though people often experience hives due to allergic reactions, hives lasting more than 24 hours are likely due to lupus. 3) patient is currently following up with neurology she is also currently taking Eliquis for anticoagulation properties due to the possibility of a small patent foraminal fall with paroxysmal atrial fibrillation. 4-5) I have seen 2 small studies were patient is presenting with a central leg tremor prior to being classified with lupus and treated with corticosteroids in the tremor resolved. If this is an essential tremor then I recommend doing propanolol which will help relieve her symptoms. I have asked herto discuss this with her neurologist and/or lupus specialist first I will be glad to treat accordingly. Patient does state that she has neuropathy this is a common finding in lupus patients with peripheral neuropathies. The nerves of the peripheral nervous system control motor responses and sensation, so symptoms of numbness or tingling, or inability to move a part of your body, may be the resultof lupus affecting these nerves. 6) I explained to her that In patients with mild and intermittent symptoms (fewer than two episodesper week) and no evidence of erosive esophagitis, evidence recommends step-up therapy for GERD. Thestep-up approach involves incrementally increasing the potency of therapy until symptom control is a chieved. In patients who have never tried medication, we initially recommend lifestyle and dietary modification and, as needed, low-dose histamine 2 receptor antagonists. For patients with continued symptoms despite these measures, we increase the dose of H2RAs to standard dose, twice daily for a minimum of two weeks. Further increases in the dose of H2RA, prolonging the course of treatment, or switching to another H2RA is unlikely to control symptoms.. Therefore, if symptoms of GERD persist, we discontinue H2RAs and initiate once- daily proton pump inhibitors (PPIs) at a low dose and then increase to standard doses if required. We make incremental changes in therapy at four to eight-week intervals. Once symptoms are controlled, treatment should be continued for at least eight weeks. In patients with erosive esophagitis, frequent symptoms (two or more episodes per week), and/or severe symptoms that impair quality of life, we use step-down therapy in order to optimize symptom relief. The step-down approach starts with potent antisecretory agents and then involves incrementally, decreasing the potency of therapy until breakthrough symptoms. We begin with standard-dose PPI once daily for eight weeks in addition to lifestyle and dietary modification. We subsequently decrease acid suppression to low-dose PPIs and then to H2RAs if patients have mild or intermittent symptoms. Wediscontinue acid suppression in all asymptomatic patients with the exception of patients with severe erosive esophagitis or Guerra's esophagus, in whom we suggest maintenance PPI therapy. We discussed the current issue with Zantac being recalled and omeprazole causality with cancer issues. Patient states that she recently had a upper endoscopy and told that she just had excessive amountsof acid. She stopped the pantoprazole that she was prescribed. I have recommended taking Pepcid 20 mg at nighttime currently 2 hours after her last medication usage about 1 hour before bed will try that for approximately 10 days if no improvement we can go to 30 mg for 10 days and again if no improvement we will go to 40 mg for approximately 4 weeks and then make alterations accordingly. 7) patient is currently in sinus rhythm she does have paroxysmal atrial fibrillation. Patient will continue to see cardiology and follow their recommendations. Patient will currently continue her Eliquis for the possibility of thromboembolic events. 8) ordered a mamogram 9) Encourage following a low fat, low carb [...] vaccinations, blood pressure, weight at today's visit. 10) I explained that There are several types of anxiety disorders, including Generalized anxiety disorder (JEET).People with JEET worry about ordinary issues such as health, money, work, and family. But their worries are excessive, and they have them almost every day for at least 6 months. Panic disorder is when people have panic attacks. These are sudden, repeated periods of intense fear when there is no danger. The attacks come on quickly and can last several minutes or more. Phobias which is when people with phobias have an intense fear of something that poses little or no actual danger. Their fear may be about spiders, flying, going to crowded places, or being in social situations (known a s social anxiety). Along with antidepressant and anxiety medication Cognitive behavioral therapy may be used. is a type of psychotherapy that is often used to treat anxiety disorders. CBT teaches you different ways of thinking and behaving. It can help you change how you react to the things that cause you to feel fear and anxiety. It may include exposure therapy. This focuses on having you confront your fears so that you will be able to do the things that you had been avoiding. Patient is currently stable taking peroxide teen. Again if she has acute exacerbation she may need a low dose of Lorazepam or diazepam as needed. Follow up: 3 months [facility] Mammogram has been ordered. Patient is currently up-to-date on her pneumonia vaccinations. Patient is currently up-to-date on her colonoscopies and upper endoscopies. She could not remember regardingthe DEXA scan and varicella or Shingrix so I will continue to look through her records ISRAEL SHAVER MD 04/26/2020 12:11 PM documented in this encounter Plan of Treatment Upcoming Encounters Date Type Department Care Team (Late st Contact Info) Description 10/02/2024 11:40 AM BRIAR WOOD SORTER Office Visit [facility] [address] [facility] [place] [address] Johnnie Lr MD [address] [facility] [address] [facility] [address] [place] [address] 01/04/2025 9:50 AM CDT Office Visit [facility] [place] [address] [facility] [address] [place] [id number] Emily Jordan MD [address] [place] [address] Scheduled Orders Name Type Priority Associated Diagnoses Orde r Schedule MG SCREENING W MORENA MARCY DIGI MAMMO Routine Breast cancer screening by mammogram Ordered: 04/26/2020 documented as of this encounter Visit Diagnoses Diagnosis Essential hypertension- Primary Unspecified essential hypertension Rash Rash and other nonspecific skin eruption Late, effect, cerebrovascular disease Unspecified late effects of cerebrovascular disease Tremor Abnormal involuntary movements Systemic lupus erythematosus, unspecified SLE type, unspecified organ involvement status ([facility]) Gastroesophageal reflux disease without esophagitis Esophageal reflux Paroxysmal atrial fibrillation ([facility]) Atrial fibrillation Breast cancer screening by mammogram Adult BMI 28.0-28.9 kg/sq m Body Mass Index 28.0-28.9, adult Anxiety state Anxiety state, unspecified documented in this encounter Care Teams Senior Litigation Paralegal Relationship Specialty Start Date End Date Israel Shaver MD PCP - General FAMILY MEDICINE SPORTS MEDICINE 04/25/20 03/15/21 documented as of this encounter
--- OUTSIDE RECORDS SUMMARY | 2024-08-29 10:01 | XMS_ITS | Encounter Summary ---
Author Organization [facility] Address [address] [place] [address]. [place] [address] [place] [address] Care Team Providers Care Profile Mill Operator Tape Control Name Role Phone Gabriel Persaud MD Primary Care Provider Unavailabl e Encounter Details Date Type Department Care Team (Late Contact Info) Description 04/25/2020 Orders Only [facility] - [place] [address] [phone] Juan Antonio Albert, DEISY Social History Tobacco Use Types Packs/Day Years Used Date Smoking Tobacco: Never Assessed PHQ-2 Answer Date Recorded PHQ-2 Score 0 04/26/2020 Comments Unknown Sex and Gender Information Value Date Recorded Sex Assigned at Not on file Legal Sex Female 10:22 PM SAMPLE PROCESSOR Gender Identity Female 09/12/2021 9:51 AM SAMPLE PROCESSOR Sexual Orientation Straight 09/12/2021 9: 51 AM SAMPLE PROCESSOR COVID-19 Exposure Response Date Recorded In the last month, have you been in contact with someone who was confirmed or suspected to have Coronavirus / COVID-19? No / Unsure 04/26/2020 9:58 AM CDT documented as of this encounter Plan of Treatment Upcoming Encounters Date Type Department Care Team (Late Contact Info) Description 10/02/2024 11:40 AM SAMPLE PROCESSOR Office Visit [facility] - [address], [address] [place] [address] Johnnie Lr MD [address] [facility] [address] [place] [address] 01/04/2025 9:50 AM CDT Office Visit [facility] - [place] [address] [facility] [address] [place] [address] Emily Jordan MD [address] [place] [address] documented as of this encounter Visit Diagnoses Not on filedocumented in this encounter Care Teams Profile Mill Operator Tape Control Relationship Specialty Start Date End Date Gabriel Persaud MD PCP - General FAMILY MEDICINE SPORTS MEDICINE 04/25/20 03/15/21 documented as of this encounter
--- OUTSIDE RECORDS SUMMARY | 2024-08-29 10:01 | XMS_ITS | Encounter Summary ---
Author Organization [facility] Address [address] [place] [address]. [place] [address] [place] [address] Care Team Providers Care Media Production Support Manager Name Role Phone Gabriel Persaud MD Primary Care Provider Unavailabl e Encounter Details Date Type Department Care Team (Latest Contact Info) Description 05/20/2020 Travel Social History Tobacco Use Types Packs/Day Years Used Date Smoking Tobacco: Never Smokeless Tobacco: Never Alcohol Use Standard Drinks/Week Comments Yes 0 (1 standard drink = 0.6 oz pur e alcohol) social PHQ-2 Answer Date Recorded PHQ-2 Score 0 04/26/2020 Comments No Sex and Gender Information Value Date Recorded Sex Assigned at Not on file Legal Sex Female 10:22 PM JUNIOR UNDERWRITER Gender Identity Female 09/12/2021 9:51 AM JUNIOR UNDERWRITER Sexual Orientation Straight 09/12/2021 9: 51 AM JUNIOR UNDERWRITER COVID-19 Exposure Response Date Recorded In the last month, have you been in contact with someone who was confirmed or suspected to have Coronavirus / COVID-19? No / Unsure 05/20/2020 3:13 PM CDT documented as of this encounter Plan of Treatment Upcoming Encounters Date Type Department Care Team (Late st Contact Info) Description 10/02/2024 11:40 AM JUNIOR UNDERWRITER Office Visit [facility] Multispecialty Care - [facility] [address] [facility] [place] [address] Johnnie Lr MD [address] [facility] [address] [place] [address] 01/04/2025 9:50 AM CDT Office Visit [facility] Family Medicine - [place] [address] [place], [place] [id number] Emily Jordan MD [address] [place] [address] documented as of this encounter Visit Diagnoses Not on filedocumented in this encounter Care Teams Media Production Support Manager Relationship Specialty Start Date End Date Gabriel Persaud MD PCP - General FAMILY MEDICINE SPORTS MEDICINE 04/25/20 03/15/21 documented as of this encounter
--- OUTSIDE RECORDS SUMMARY | 2024-08-29 10:01 | XMS_ITS | Encounter Summary ---
Author Organization [facility] Address [address] [place] [address]. [place] [address] [place] [address] Care Team Providers Care Licensed Practical Nurse Instructor Name Role Phone Gabriel Shaver MD Primary Care Provider Gladis Cevallos MD Unavailable Reason for Referral * Imaging (Routine) - Closed Specialty Diagnoses / Procedures Referred By Valerie florian Referred To Contact RADIOLOGY Diagnoses Osteopenia after menopause Menopause Procedures BONE DENSITY/DEXA Gabriel Shaver MD [facility] [address] [address] Phone: tel: fax: Referral ID Status Reason Start Date Expiration Date V isits Requested Visits Authorized [id number] Closed Bone Density Testing 09/27/2020 2021 99 99 SCAPE ARCHITECTURE PROFESSOR Reason for Visit * Reason Comments Medicare Wellness Patient presents togiuseppe reyes for her Annual Medicare Wellness Visit. Encounter Details Date Type Department Care Team (Late st Contact Info) Description 09/27/2020 11:20 AM LANDSCAPE ARCHITECTURE PROFESSOR Office Visit [facility] [place] [address] [facility] [address] [place] [id number] Medicare Wellness (Patient presents today for her Annual Medicare Wellness Visit.) Social History Tobacco Use Types Packs/Day Years [...] on file Legal Sex Female 10:22 PM LANDSCAPE ARCHITECTURE PROFESSOR Gender Identity Female 09/12/2021 9:51 AM LANDSCAPE ARCHITECTURE PROFESSOR Sexual Orientation Straight 09/12/2021 9: 51 AM LANDSCAPE ARCHITECTURE PROFESSOR COVID-19 Exposure Response Date Recorded In the last month, have you been in contact with someone who was confirmed or suspected to have Coronavirus / COVID-19? No / Unsure 09/27/2020 11:04 AM LANDSCAPE ARCHITECTURE PROFESSOR documented as of this encounter Last Filed Vital Signs Vital Sign Reading Time Taken Comments Blood Pressure 130/78 09/27/2020 11:23 AM LANDSCAPE ARCHITECTURE PROFESSOR Pulse 78 09/27/2020 11:23 AM LANDSCAPE ARCHITECTURE PROFESSOR Temperature 36.6 ??C (97.9 ??F) 09/27/2020 11:[address] Respiratory Rate 20 09/27/2020 11:23 AM LANDSCAPE ARCHITECTURE PROFESSOR Oxygen Saturation 97% 09/27/2020 11:23 AM LANDSCAPE ARCHITECTURE PROFESSOR Inhaled Oxygen Concentration - - Weight 68.1 kg (150 lb 3.2 oz) 09/27/2020 11:23 AM LANDSCAPE ARCHITECTURE PROFESSOR Height 152.4 cm (5') 09/27/2020 11:23 AM LANDSCAPE ARCHITECTURE PROFESSOR Body Mass Index 29.33 09/27/2020 11:23 AM LANDSCAPE ARCHITECTURE PROFESSOR documented in this encounter Patient Instructions * Patient Instructions* Maricel Calle RN - 09/27/2020 11:20 AM LANDSCAPE ARCHITECTURE PROFESSOR PERSONALIZED PREVENTION PLAN FOR Chio Orantes These are your preventive care screenings with due dates. Health Maintenance Topic Date Due ??? DEXA SCAN (GENERAL) 2020 (Originally 2013) ??? Colorectal Cancer Screening Colonoscopy (10 Years) 2020 (Originally 1998) ??? DTaP, Tdap and Td Vaccines (1 - Tdap) 11/16/2020 (Originally 1967) ??? ZOSTER (1 of 2) 09/27/2021 (Originally 1998) ??? Medicare Wellness Visit 09/28/2021 ??? MAMMOGRAM 09/08/2022 ??? Influenza Adult Completed ??? Pneumococcal ages 65 years and older Completed ??? MENINGOCOCCAL VACCINE Aged Out Recommended Covered Preventative Services Your PCP and clinical team will review the list below of recommended Medicare Part B Covered Preventative Services and follow up with you on future scheduling of any additional services BONE MASS MEASUREMENT This test helps to see if you???re at risk for broken bones. It???s covered once every 24 months (more often if medically necessary) for people who have certain medical conditions or meet certain criteria. You pay nothing for this test if the doctor or other qualified health care provider accepts assignment. Based on your responses to the Health Risk Assessment and appointment today, your provider recommends the following: ADVANCE DIRECTIVES The Basics Written by the doctors and editors at [facility] What are advance directives???--??Advance directives are legal documents that allow you to spell out ahead of time what of types medical care you would want if you ever became unable to speak for yourself. These documents can help ensure that you get the care you want even if you have an unexpectedserious illness or accident. The documents can also make things easier for the people who will need to make decisions for you if you ever become unable to make them for yourself. Are there different kinds of advance directives???--??Yes. The most useful kinds of advance directives are: ?? Health care proxy (also called the durable power of bean snipper for health care) - The health care proxy document allows you to choose someone to make medical decisions for you if you become unable to speak for yourself. The benefit of having this document is that it makes your choice of a decision-maker clear to your doctors and family members. When you choose a health care proxy, it is important to talk to the person you choose about the things that you do or don't want. That way your decision-maker knows what to do later on if he or she ever has to speak for you. ?? Living will - A living will is the document that tells health care providers what type of care you want if you become unable to speak for yourself. For instance, a living will allows you to recordin writing whether you would want a feeding tube put in if you had a serious illness or accident. ?? Do not resuscitate/do not intubate order (also called a DNR/DNI) - If you decide you do not wantyour heart restarted if it stops and you do not want a breathing tube put in if you stop breathing,you can ask for a DNR/DNI. This is a form that must be signed by a doctor. It tells all your healthcare providers that you have decided you do not want these treatments. Advance directives work best when they are part of a team effort that includes not only the person making the decisions, but also doctors, emergency health workers, and places like hospitals and nursing homes. The Physician Orders for Life Sustaining Treatment (POLST) is a form for people who already have a serious illness or are very weak and likely to need medical help. The POLST form spells out exactly what care should be given, and not given, based on your choices and wishes. It is signed by your doctor, and you can keep a copy at home to be used in the event of an emergency. A copy is also kept onfile at any hospital or other place where you might get medical care. Not every state has a POLST program. To find out if your state has one, you can go online to www.polst.org. How do I choose a health care proxy???--??Choose someone who: ?? You know and trust ?? Can separate his or her own wishes from your own ?? You know would carry out your wishes if that became necessary ?? Could be easily reached if he or she was needed ?? Could handle it if other family members or loved ones wanted you to get treated differently thanyou would want Some people choose a second person as an alternate proxy, in case their first choice cannot be reached at the time decisions need to be made. Who should have an advance directive???--??Advance directives are a good idea for anyone, but they are especially important if: ?? You are older than 65. ?? You have a serious life-threatening illness, such as advanced cancer, or end- stage heart or liver failure. ?? The person whom you would like as your health care proxy (decision-maker) is not a family memberor legally to you. If that is the case the person you would choose might not be allowed to make decisions for you. Unless there is a health care proxy, the law usually states that a person's closest family member has the right to make decisions for him or her. What kinds of decisions will I need to make???--??Your advance directives can have as much or as little detail as you want. But many people who have advance directives record their wishes about the following treatments: ?? Breathing tubes - If you stop breathing or are having a very hard time breathing, you can get attached to a machine that will help you breathe. For that to happen, you will have to be intubated. That means that a tube will be put down your throat and into your lungs. Then the tube will be connected to a breathing machine. When the tube is in place, you will not be able to talk, at least at first. Plus, you will probably be sedated, meaning that you are on medicines that make you sleep. Sometimes a breathing machine is needed only for a short time. For instance, some people need the breathing machine just while they recover from a lung infection. When deciding about a breathing tube, consider whether you would want it at all, want it only for a short time, or want it no matter what. Also, keep in mind that any time a breathing machine is used, it is hard to know for sure if and when it will be able to be disconnected. ?? Cardiopulmonary resuscitation (CPR) - If your heart stops beating suddenly, doctors might be able to restart it by pumping on your chest, putting in a breathing tube and pushing air into your lungs, giving you an electric shock (called defibrillation ), and/or giving you special medicines. Somepeople recover completely after having their heart restarted. Others have permanent brain damage from a lack of blood flow to the brain; this is most likely in people who have an advanced, serious illness. ?? Feeding tubes - If you become unable to eat, you can have a tube put into your stomach or intestines that can deliver nutrients. A feeding tube can keep a person's body going while he or she healsand gets strong. But it can also keep a person alive for a long time even if there is no chance theperson will recover. Can I change my mind???--??Yes. You can change your mind at any time. If you sign an advance directive and you decide you want a different kind of treatment or you no longer want the health care proxy you chose, all you have to do is tell your doctor or nurse about your new decision. If you want toname a new health care proxy or want to record new wishes, you can draw up new documents. How can I draw up an advance directive???--??The following table lists resources that can help you learn more about making your own advance directives (table 1). All topics are updated as new evidence becomes available and our peer review process is complete. This topic retrieved from [employer] ([employer]) on: Sep 09, 2018. Topic 36467 Version 11.0 table 1: Resources that can help you make advance directives ?? Address Phone number Website [facility] [address] [facility] [place] Toll-free: [phone] [facility] [ ] http://assets.aarp.org/external_sites/ caregiving/multimedia/EG_AdvanceDirectives.html Aging with Dignity (Five Wishes form) [address] [place] [address] Toll-free: [phone] 5WISHES [ ] www.agingwithdignity.org CaringInfo ?? Toll-free: www.[employer]o.org POL National POLST [employer] [address] [place] [address] www.[facility].org EMERGENCY SUPPLIES AND FIRST AID All homes should have the following basic safety tools. First Aid kit Products your family should always have on hand to treat minor emergencies. ?? BAND-AID / Adhesive Bandages - Protects wound from dirt and germs and helps promote fast healing. Provides long-lasting infection protection to help wounds heal fast and may help minimize the appearance of scars. ?? Antiseptic Wash - Temporarily relieves pain and itch while washing away dirt and germs. ?? Cold Pack - For reducing pain and swelling. ?? Sterile Eye Wash - First-aid eye irrigating solution. ?? Thermometer - To check body temperature. ?? Tweezers - For splinter, glass or insect stinger removal. ?? Health Care Gloves - To avoid contact with bodily fluids. ?? Comprehensive First Aid Guide - For information on most minor first-aid situations. Fire Extinguisher ?? Confirm that your fire extinguisher is up to date and not . ?? The extinguisher should be kept in or near the kitchen. Smoke Alarms ?? Smoke alarms are on every level of the home. ?? Smoke alarms are inside and outside sleeping areas. ?? Smoke alarms are tested each month. ?? Smoke alarm batteries are changed as needed. ?? Smoke alarms are less than 10 years old. Carbon Monoxide Alarms ?? Carbon monoxide alarms are located on each level of the home. ?? Confirm Carbon monoxide alarms are less than 7 years old. FALL RISK Guidelines to help you prevent falls: There are several steps you can take to decrease fall risk at home. One suggestion is to remove tripping hazards like throw rugs, loose wires, clutter or other objects from the floor. Installing hand-rails for stairs and turning on night lights between the bedroom and bathroom at night are other helpful suggestions. If you have fallen in the bathroom, use of grab bars near the toilet and a shower stool or bench may help prevent a fall in this part of the home. Taking extra time when getting up from a sitting or lying position before starting to walk is especially helpful to those who have dizziness triggered by change in body position. There are also some steps that can be taken to reduce fall risk outdoors. Wearing well-fitting shoes with good traction is important when walking on either the pavement or the lawn. Avoid high heels or shoes with very thick soles, especially if you have peripheral neuropathy. If you have problems with balance or leg pain, using a cane or walker can also be helpful. Finally, be aware of possible tripping hazards outdoors including uneven pavement and slipping hazards like wet ground or pavement. PAIN During your health risk assessment you complained of pain. Pain can be an unpleasant feeling that happens in any part of the body. It can be mild or very bad. You may feel this pain always or it may just come and go. It may be dull, sharp, or throbbing. Pain can last for a long time or a short time. Pain can cause upset stomach and throwing up. When you are in pain you may not feel hungry. You may feel nervous. Pain can be acute or chronic. Acute pain tells you there may be an injury and you need to take careof yourself. Chronic pain lasts for a long period of time. What are the causes? ?? Headache ?? Back problems ?? Arthritis ?? Muscle strain ?? Trauma, such as a blow to the body, fall, motor vehicle accident, or gunshot wound ?? Infection ?? Menstrual pain in women What are the main signs? Pain can be throbbing or shooting. Some people feel pain as dull and others as sharp. It may tingleor burn and shoot down an arm or leg. You may also notice that you are limited when moving a part of your body from pain. Sometimes, pain causes you to have muscle aches or spasms. Other people have headaches or are grouchy when in pain. Some people have loose stools when in pain. Some people have trouble sleeping when in pain. How does the doctor diagnose this health problem? Your doctor will ask you to talk about your pain. Tell the doctor: ?? How your pain feels. Is it dull, sharp, burning, stabbing, or cramping? ?? Where your pain is ?? What causes your pain ?? What makes your pain better or worse Your doctor may ask you to rate your pain. This means you would pick a number or picture that most closely describes your pain. The doctor may ask you to say what number your pain is between 0 and 10. Zero means you have no pain at all and 10 means you have the worst pain ever and you need to go [facility]. An exam will help your doctor find out where the pain is and what is causing it. Some simple blood tests may be done. This will help your doctor decide if any other tests are needed. How does the doctor treat this health problem? Mild drugs may be ordered to ease your pain. Sometimes, pain is a sign of some other problem in your body. In this case, drugs may not be ordered at all or only mild ones given. To treat mild to moderate pain: ?? Acetaminophen ?? Nonsteroidal anti-inflammatory drugs (NSAIDs) like aspirin or ibuprofen ?? NSAIDs in a cream form can be used on the skin where you feel the pain ?? Muscle relaxers may be used to loosen tight muscles To treat moderate to very bad pain: ?? Weak opioid drugs like codeine ?? Strong opioid drugs like morphine Ice, heat, rest, and elevating your painful body part may be used to ease pain and help with swelling from muscle pain. When Using Ice ?? Place an ice pack or a bag of frozen peas wrapped in a towel over the painful part. Never put ice right on the skin. Do not leave the ice on more than 10 to 15 minutes at a time. When Using Heat ?? Heat may be used later but not right away. Heat can make swelling worse. If your doctor tells you to use heat, put a heating pad on your painful part for no more than 20 minutes at a time. Never go to sleep with a heating pad on as this can cause diaz. Your doctor may suggest other types of pain control to help you. Some of these are massage, acupuncture, manager wound care, and relaxation. What drugs may be needed? The doctor may order drugs to: ?? Help with pain and swelling ?? Relax tight muscles Take your drugs as ordered by your doctor. Some of these drugs can be habit forming and may cause side effects. What can be done to prevent this health problem? ?? The best thing you can do is talk to your doctor about any pain you have. Your doctor can help you make a plan to lower your pain. ?? Some causes of pain get better by staying active and working out. Your doctor may send you to a physical therapist to help you work on strength exercises and stretching. DENTAL CARE We recommend that you call your dentist of choice for an appointment to address your dental problems . Why is dental care important? There may be an even greater need to care for your teeth as you get older for the following reasons: ?? As you age, your mouth may make less saliva, which means that some of its natural cleansing action may be lost and it may become very acidic, causing more decay. ?? Medicines can also cause the mouth to be impregnator and drier helper. ?? The gums shrink and expose new areas of teeth to possible infection or decay. ?? Dentures may not fit as well because of changes in the gums and the jawbones. ?? The risk of oral cancer is higher. Brushing Teeth can last a lifetime if they are looked after. The most effective thing you can do is brushingyour teeth. [place] them in the morning and again before going to bed at night. Use a soft brush and get a new brush every 6 months. Pay attention to the gum line when you brush. Also brushing the roofof the mouth and the tongue gently will help remove germs and prevent bad breath. Brushing after each meal is best. If you can only brush once a day, it is best to do it at bedtime. Electric toothbrushes can be very helpful if you have arthritis. Ask your dentist or dental hygienist to show you theproper way to brush your teeth. Flossing Flossing will remove germs and food particles from between the teeth and along the gum line where brushing doesn't always reach. Insert the floss between the teeth, using a gentle sawing motion. Movethe floss up and down the side of each tooth. Always use a new section of floss when you put it between the next pair of teeth. Toothpaste and mouthwash Use a toothpaste that has fluoride and is recommended by the [employer]. Tartar-control toothpaste may be helpful. Rinsing with an alcohol- free antibacterial mouthwash can help reduce plaque. Regular dental checkups Yearly dental checkups are recommended, even if you have full dentures. During your checkup, your dentist will remove any plaque and check your teeth for cavities. Your dentist will also check your gums for infection or inflammation and the rest of your mouth for signs of cancer. If you have red or white spots or other sores in the mouth that do not go away within 2 weeks, see your dentist. Mouth sores that do not go away can be an early sign of oral cancer. Early detection of mouth cancer allows the best chance for survival. HEALTH STATUS Your Health Risk Assessment indicates you are feel you are not in good health. A healthy lifestyle helps keep the body fit and the mind alert. It helps protect you from disease, helps you fight disease, and helps prevent chronic disease (disease that doesn't go away) from getting worse. This is important as you get older and begin to notice twinges in muscles and joints and a decline in the strength and stamina you once took for granted. A healthy lifestyle includes good healthcare, good nutrition, weight control, recreation, and regular exercise. Avoid harmful substances and do what you can to keep safe. Another part of a healthy lifestyle is stay mentally active and socially involved. Good healthcare ?? Have a physical checkup every year. ?? If you have new symptoms, let us know right away. Don't wait until the next checkup. ?? Take medicines exactly as prescribed and keep your medicines in a safe place. Tell us if your medicine causes problems. Healthy diet and weight control ?? Eat 3 or 4 small, nutritious, low-fat, high-fiber meals a day. Include a variety of fruits, vegetables, and whole-grain foods. ?? Make sure you get enough calcium in your diet. Calcium, vitamin D, and exercise help prevent osteoporosis (bone thinning). ?? If you live alone, try eating with others when you can. That way you get a good meal and have company while you eat it. ?? Try to keep a healthy weight. If you eat more calories than your body uses for energy, it will be stored as fat and you ?? will gain weight. Recreation Recreation is not limited to sports and team events. It includes any activity that provides relaxation, interest, enjoyment, and exercise. Recreation provides an outlet for physical, mental, and social energy. It can give a sense of worth and achievement. It can help you stay healthy. Mental exercise and social involvement Mental and emotional health is as important as physical health. Keep in touch with friends and family. Stay as active as possible. Continue to learn and challenge yourself. Things you can do to stay mentally active are: ?? Learn something new, like a foreign language or musical instrument. ?? Play SCRABBLE or do crossword puzzles. If you cannot find people to play these games with you athome, you can play them with others on your computer through the Internet. ?? Join a games club--anything from card games to chess or checkers or lawn bowling. ?? Start a new hobby. ?? Go back to school. ?? Volunteer. ?? Read. ?? Keep up with world events. LIFE SITUATION Your Health Risk Assessment indicates you are not happy with your life situation. Here is a list oflocal support services that may be able to help: [place] Department [employer] Aging Senior Helpline. 3 [phone] Caregiver Hotline [phone] [employer] [phone] SCAPE ARCHITECTURE PROFESSOR documented in this encounter Progress Notes * Gabriel Shaver MD - 09/27/2020 11:20 AM CST Medicare Annual Wellness Visit Chief Complaint: Chio is an 69-year-old female here for an annual wellness visit. Patient Care Team: Gabriel Shaver MD as PCP - General (FAMILY MEDICINE SPORTS MEDICINE) Gladis Song MD (RHEUMATOLOGY) HEALTH RISK ASSESSMENT A Checklist for Medicare Wellness Annual Visit During the past 4 weeks, how much have you been bothered by emotional problems such as feeling anxious, depressed, irritable, sad or downhearted and blue?: Not at all During the past 4 weeks, has your physical and emotional health limited your social activities withfamily friends, neighbors or groups?: Quite a bit During the past 4 weeks, how much bodily pain have you generally had?: Moderate pain During the past 4 weeks, was someone able to help you if you needed and wanted help? : No, not at all During the past 4 weeks, what was the hardest physical activity you could do for atleast 2 minutes?: Moderate Can you get places out of walking distance without help?: Yes Can you shop for groceries or clothes without help : Yes Can you prepare your own meals?: Yes Can you do your own housework without help?: Yes Can you handle your own money without help?: Yes During the past 4 weeks, how would you rate your general health?: Fair How have things been going for you during the past 4 weeks?: Pretty bad Are you having difficulties driving your car? : No Do you always fasten your seatbeat when you are in a car?: Yes, usually How often during the past 4 weeks have you been bothered by any of the following problems? Fall or dizzy when standing up : Seldom Sexual problems: Never Trouble eating well: Never Teeth or dentures: Sometimes Problems using the telephone: Never Tired or fatigued: Sometimes Are you a smoker?: No During the past 4 weeks, how many drinks of wine, beer or other alcoholic bevearges did you have?: 1 drink or less per week Do you exercise for about 20 minutes 3 or more days a week?: Yes, some of the time Have you been given any information to help you with the following: Hazards in your house that might hurt you?: No Keeping track of your medications?: Yes How often do you have trouble taking medicines the way you have been told to take them?: I always take them as prescribed How confident are you that you can control and manage most of your health problems?: Very confident FALL RISK Fall Risk One or more falls in the last year:: Yes Feels unsteady when walking:: Yes Worried about falling:: No SLUMS SLUMS Review 09/27/2020 SLUMS #1: Day 1 SLUMS #2: Year 1 SLUMS #3: State 1 SLUMS #4: Memory directive 0 SLUMS #5a: Money spent 1 SLUMS #5b: Money left 2 SLUMS #6: Animals 2 SLUMS #7: Object recall 4 SLUMS #8a: Numbers: 87 0 SLUMS #8b: Numbers: 649 1 SLUMS #8c: Numbers: 8537 0 SLUMS #9: Clock 4 SLUMS #10a: Mascot 1 SLUMS #10b: Size 1 SLUMS #11: Story 0 SLUMS #11a: Female's Name 2 SLUMS #11b: Back to work 0 SLUMS #11c: Work type 2 SLUMS #11d: State 2 Calculated SLUMS Score 25 Scoring. HIGH SCHOOL EDUCATION: 27-30=Normal, 21-26= MNDC*, 1-20=Dementia. LESS THAN HIGH SCHOOL EDUCATION: 25-30=Normal, 20=24=MNCD*, 1-19=Dementia. * Mild Neurocognitive Disorder PHQ2/PHQ9 Over the last two weeks, how often have you been bothered by any of the following problems? 04/26/2020 09/27/2020 LITTLE INTEREST OR PLEASURE IN DOING THINGS 0-Not at All 2-More than half the days FEELING DOWN, DEPRESSSED,OR HOPELESS 0-Not at All 1-Several Days PHQ2 DEPRESSION TOTAL SCORE 0 3 The ASCVD Risk score (Opal JUNE Jr., et al., 2013) failed to calculate for the following reasons: The patient has a prior PR or stroke diagnosis HISTORY Past Medical History: Diagnosis Date ??? Anxiety ??? Arthritis ??? Asthma ??? Hypertension ??? Lupus (CMS/HCC) ??? Sleep apnea ??? Stroke (CMS/HCC) Past Surgical History: Procedure Laterality Date ??? APPENDECTOMY ??? SECTION ??? HC TRIGGER FINGER RELEASE ??? HYSTERECTOMY Family History Problem Relation Name Age of Onset ??? Heart Disease Mother ??? Other (lungs) Father Social History Socioeconomic History ??? Marital status: Spouse name: Not on file ??? Number of children: Not on file ??? Years of education: Not on file ??? Highest education level: Not on file Social History Tobacco Use ??? Smoking status: Never Smoker ??? Smokeless tobacco: Never Used Substance Use Topics ??? Alcohol use: Yes Comment: up 2 glasses of wine/month Current Outpatient Medications Medication Sig Dispense Refill ??? B-D 3CC LUER-KAILASH SYR 22GX1 22G X 1 3 ML Misc USE ONCE A MONTH DIRECTED WITH METHOTREXATE ??? B-D INSULIN SYRINGE 1CC/25G 25G X 5/8 1 ML Misc USE DIRECTED FOR 90 DAYS ??? BD INTEGRA SYRINGE 25G X 1 3 ML Misc USE DIRECTED FOR 90 DAYS ??? belimumab 120 MG ??? bisoprolol 5 MG tablet TAKE 1 TABLET BY MOUTH EVERY DAY ??? calcium carbonate 600 MG tablet Take by mouth daily. ??? fluticasone 110 MCG/ACT inhaler Inhale 2 puffs into the lungs 2 (two) times daily. ??? folic acid 1 MG tablet Take 1 mg by mouth daily. ??? hydroCHLOROthiazide 25 MG tablet Take 1 tablet (25 mg total) by mouth daily. 90 tablet 0 ??? hydroxychloroquine 200 MG tablet Take 200 mg by mouth 2 (two) times daily. ??? Methscopolamine [place] 5 MG Tab Take 5 mg by mouth daily. ??? montelukast 10 MG tablet TAKE 1 TABLET BY MOUTH EVERY DAY EVERY NIGHT ??? nitroglycerin 0.4 MG SL tablet May repeat dose every 5 minutes for up to 3 doses total. ??? PANTOPRAZOLE EC 40 MG tablet TAKE 1 TABLET BY MOUTH TWICE A DAY 180 tablet 1 ??? PARoxetine 20 MG tablet 10 mg. ??? potassium chloride CR 20 MEQ tablet TAKE 2 TABLETS EVERY MORNING AND 2 TABLETS EVERY EVENING ??? albuterol sulfate HFA (VENTOLIN HFA) 108 (90 Base) MCG/ACT inhaler Ventolin HFA 90 mcg/actuation aerosol inhaler ??? apixaban (ELIQUIS) 5 MG tablet TAKE 1 TABLET BY MOUTH TWICE A DAY ??? atorvastatin 80 MG tablet TAKE 1 TABLET BY MOUTH EVERY DAY ??? calcium carbonate-vitamin D (OSCAL 500/200 D-3) 500-200 MG-UNIT Tab Take by mouth daily. ??? Cholecalciferol (VITAMIN D3) 50 MCG (2000 UT) Cap take 1 by Oral route every day ??? Cholecalciferol (VITAMIN D3) 50 MCG (2000 UT) Cap daily. ??? etodolac 400 MG tablet ??? furosemide 20 MG tablet TAKE 1 TABLET BY MOUTH EVERY DAY ??? leflunomide 20 MG tablet Take 20 mg by mouth daily. ??? methotrexate 50 MG/2ML injection INJECT 0.8 MILLILITER ONCE A WEEK FOR 90 DAYS ??? metoprolol succinate ER 50 MG 24 hr tablet metoprolol succinate ER 50 mg tablet,extended release 24 hr ??? metoprolol tartrate 25 MG tablet ??? omeprazole EC 20 MG Tab EC tablet omeprazole 20 mg capsule,delayed release ??? ondansetron 4 MG disintegrating tablet DISSOLVE 1 TABLET IN MOUTH 10 MINUTES PRIOR TO EACH PREPDOSE NEEDED FOR NAUSEA No current facility-administered medications for this visit. EXAM Filed Vitals: 09/27/20 1123 BP: 130/78 Pulse: 78 Resp: 20 Temp: 97.9 ??F (36.6 ??C) TempSrc: Temporal SpO2: 97% Weight: 68.1 kg (150 lb 3.2 oz) Height: 5' (1.524 m) PainSc: 4 Moderate Pain (0-10 Scale) Patient admits to problems with hearing. She reports it as fair and is considering having a hearingexam in the near future ASSESSMENT AND PLAN The patient's current medical problems were reviewed. The following health maintenance schedule was reviewed with the patient and provided in printed form in the after visit summary: Health Maintenance Topic Date Due ??? DEXA SCAN (GENERAL) 2020 (Originally 2013) ??? Colorectal Cancer Screening Colonoscopy (10 Years) 2020 (Originally 1998) ??? DTaP, Tdap and Td Vaccines (1 - Tdap) 11/16/2020 (Originally 1967) ??? ZOSTER (1 of 2) 09/27/2021 (Originally 1998) ??? Medicare Wellness Visit 09/28/2021 ??? MAMMOGRAM 09/08/2022 ??? Influenza Adult Completed ??? Pneumococcal ages 65 years and older Completed ??? MENINGOCOCCAL VACCINE Aged Out Patient will discuss receiving the TDAP and Shingles Vaccines with her Credit Analyst.) Patient reports she had a colonoscopy at [facility] in 2019. Dexa Scan pended to PCP for approval. The following list of Medicare Part B Covered Preventative Services and Identified Health Risks were discussed with the patient and will be reviewed with the patient???s PCP / care team for further follow up and scheduling. Bone mass measurement (bone density) Dexa Scan orders pended to you. Based on Chio's responses to the Health Risk Assessment, we disscussed the following risks. ADVANCE DIRECTIVE The patient was counseled and encouraged to create an Advance Directive. This will be further evaluated and addressed at a follow up visit. EMERGENCY SUPPLIES AND FIRST AID The patient reports that she does not have first aid kit or emergency equipment available. She was provided with information about emergency preparedness, including first aid supplies. FALL RISK She is at risk for falling and has been provided with information to reduce the risk of falling at home as well as outside the home. PAIN The patient was provided with information and appropriate referrals to address her pain problem. (Patient reports chronic lower back and hand pain from lupus and is satisfied with current pain control.) TEETH CONDITION The patient was given suggestions to contact her dentist. She was provided with information on recommended dental care and hygiene. UNSATISFACTORY HEALTH STATUS The patient was provided with suggestions to help her develop a healthy lifestyle. Specific health concerns will be addressed in detail at subsequent appointments. UNSATISFACTORY LIFE SITUATION The patient was provided with a directory of local support agencies where she can obtain assistance. Patient reports her feelings are related to the effects COVID has had on her activites. I reviewed all the information above with the patient and made screening recommendations based on my findings. MARICEL CALLE RN I reviewed the pateint's history, vitals from today, answers to the assessment and the services recommended by MARICEL L CALLE, RN. I agree with the findings and recommendations. GABRIEL SHAVER MD SCAPE ARCHITECTURE PROFESSOR documented in this encounter Plan of Treatment Upcoming Encounters Date Type Department Care Team (Late st Contact Info) Description 10/02/2024 11:40 AM LANDSCAPE ARCHITECTURE PROFESSOR Office Visit [facility] [address] [facility] [place] [address] Johnnie Lr MD [address] [facility] [place] [address] 01/04/2025 9:50 AM CDT Office Visit [facility] - [place] [address] [place], [place] [id number] Emily Jordan MD [address] [place], [place] [id number] Scheduled Orders Name Type Priority Associated Diagnoses Orde r Schedule BONE DENSITY/DEXA DEXA Routine Osteopenia after menopause Menopause Expected: 09/27/2020, Expires: 2021 documented as of this encounter Visit Diagnoses Diagnosis Routine general medical examination at a health care facility- Primary Osteopenia after menopause Menopause Asymptomatic postmenopausal status (age-related) (natural) documented in this encounter Care Teams Licensed Practical Nurse Instructor Relationship Specialty Start Date End Date Gabriel Shaver MD PCP - General FAMILY MEDICINE SPORTS MEDICINE 04/25/20 03/15/21 [place] [id number] [facility] [place] [address] RHEUMATOLOGY 09/27/20 documented as of this encounter
--- OUTSIDE RECORDS SUMMARY | 2024-08-29 10:01 | XMS_ITS | Encounter Summary ---
Author Organization [facility] [place] Address [address] [place] [address]. [place] [address] [place] [address] Care Team Providers Care Medical Imaging Specialist Name Role Phone Gabriel Persaud MD Primary Care Provider Unavailabl e Reason for Visit * Reason Onset Date Comments Refill Request 07/05/2020 Encounter Details Date Type Department Care Team ([facility] Contact Info) Description 07/05/2020 Telephone [facility] Family [facility] - [place] [address] [id number] Gabriel Persaud MD Refill Request Social History Tobacco Use Types Packs/Day Years Used Date Smoking Tobacco: Never Smokeless Tobacco: Never Alcohol Use Standard Drinks/Week Comments Yes 0 (1 standard drink = 0.6 oz pur e alcohol) social PHQ-2 Answer Date Recorded PHQ-2 Score 0 04/26/2020 Comments No Sex and Gender Information Value Date Recorded Sex Assigned at Not on file Legal Sex Female 10:22 PM CONDUCTOR ORCHESTRA Gender Identity Female 09/12/2021 9:51 AM CONDUCTOR ORCHESTRA Sexual Orientation Straight 09/12/2021 9: 51 AM CONDUCTOR ORCHESTRA documented as of this encounter Progress Notes * Seble Carter - 07/05/2020 9:31 AM CST Refill request for hydrochlorothiazide [address] [facility] [address] [facility] [place] UCTOR ORCHESTRA documented in this encounter Plan of Treatment Upcoming Encounters Date Type Department Care Team (Late st Contact Info) Description 10/02/2024 11:40 AM CONDUCTOR ORCHESTRA Office Visit [facility] - [facility] [address] [facility] [place] [address] Johnnie Lr MD [address] [facility] [address] [place] [address] 01/04/2025 9:50 AM CDT Office Visit [facility] - [place] [address] [facility] [address] [place], [place] [phone] Emily Jordan MD [address] [place] [address] documented as of this encounter Visit Diagnoses Not on filedocumented in this encounter Care Teams Medical Imaging Specialist Relationship Specialty Start Date End Date Gabriel Persaud MD PCP - General FAMILY MEDICINE SPORTS MEDICINE 04/25/20 03/15/21 documented as of this encounter
--- OUTSIDE RECORDS SUMMARY | 2024-08-29 10:13 | XMS_ITS | Continuity of Care Document ---
Author Organization [facility] Address [address] [place] [address] Phone Care Team Providers Care Biometric Fingerprinting Technician Name Role Phone Raleigh Parks MD Unavailable Unavailable Allergies, Adverse Reactions, Alerts Substance Reaction Status Criticality levofloxacin Active No Information Sulfa (Sulfonamide Antibiotics) Active No Information Medications Medication Instructions Dosage Effective Dates (start - stop) Status Comments Singulair 10 mg tablet - Active metoprolol tartrate 25 mg tablet - Active etodolac 400 mg tablet - Active Plaquenil 200 mg tablet - Active Prilosec 20 mg capsule,delayed release - Active Paxil 20 mg tablet - Active Microzide 12.5 mg capsule - Active aspirin 325 mg tablet,delayed release - Active calcium 500 mg tablet - Active Fish Oil 1,000 mg capsule - Active ProAir HFA 90 mcg/actuation aerosol inhaler - Active Augmentin 875 mg-125 mg tablet take 1 tablet PO BID - No Longer Active Cortisporin 3.5 mg-10,000 unit/mL-1 % ear solution instill 4 drop by otic route TID into both ears - No Longer Active Procedures Procedure Date Revw Of All Rx By Prescribing Practition er Office/outpatient visit,[facility] 2012 Advance Directives Directive Yes / No Effective Date File Name No Information Encounters Encounter Description Practice Location Reason(s) For Visit Diagnoses Date Provider Providers Copied on Encounter Office/outpati ent visit,[facility], [address], [place], [place], [id number], tel:[phone] [facility] [place] [facility] Dizziness (chief complaint) Otitis externa of both ears Kasey Storey. [address] [place], [address], [place]. tel:[phone] Family History Family Member Type Diagnosis Age At Onset No Information Payers Payer name Insurance type Covered libertarian ID Authorizholley tikaris(s) [employer] PPO BL [id number] Social History Type Description Quantity Date Captured Comments Alcohol Use Details Unknown Caffeine Use Details Unknown Tobacco Use Status No Information Smoking Status No Information Non-Smoking Tobacco Use Details : No Details Available : No Details Available Sex Female Vital Signs Date / Time: Height Weight BMI Pulse Rate Blood Pressure Temperature Respiratory Rate Body Surface Area Head Circumference Head Circ. Percentile Wt./Salo. Percentile BMI percentile Pulse Ox Inhaled Ox 12:27 PM 60.00 in 70.307 kg (155.00 lbs) 30.2 7 kg/m eter (2) 67 /min 136/86 mm[Hg] 98.40 F 20 /min 94 % Chief Complaint And Reason For Visit From encounter dated '07/29/2013 12:15'. Dizziness (chief complaint). Description: The symptoms began 1 hour ago and generally lasts 15 Minutes. pt felt like room was spinning, and felt like she was going to pass out. Ambulace was called had an EKG and was told that her BP was high. Nausea, no vomiting Reason For Referral Reason For Referral No Information History Of Present Illness Encounter Date Complaint History Of Prese nt Illness Dizziness The symptoms beg an 1 hour ago and generally lasts 15 Minutes. pt felt like room was spinning, and felt like she was going to pass out. Ambulace was called had an EKG and was told that her BP was high. Nausea, no vomiting Functional Status Date Functional Assessmen t No Information Instructions Date Instruction Additional Infor mation Take medications as directed Rel ated to Otitis externa of both ears Arrange earlier foll owup visit if symptoms worsen, new symptoms develop, or return to Urgent Care Related to Otitis externa of both ears Seek followup care i f symptoms persist, worsen, or new symptoms developSeek followup care if symp Related to Otitis externa of both ears Assessments Type Assessment Date No Information Patient Care Teams Name Effective Dates (start - stop) Status Members No Information
--- OUTSIDE RECORDS SUMMARY | 2024-08-29 10:15 | XMS_ITS | Continuity of Care Document ---
Author Organization [facility] Address [address] [place] [address] [place] [address] Phone Care Team Providers Care Promotional Representative Name Role Phone Paulo Gaston Unavailable Unavailable Procedures Procedure Date Office/outpatient Visit, Est Office/outpatient Visit, Est Office/outpatient Visit, Est Visual Field Examination(s) Office/outpatient Visit, Est Visual Field Examination(s) Progressive Lens, Hi Index Vision Svcs Frames Purchases Tint Photochromatic, Hi Index 9 Tax - Medical Eye Exam, New Patient Refraction Advance Directives Directive Yes / No Effective Date File Name No Information Encounters Encounter Description Practice Location Reason(s) For Visit Diagnoses Date Provider Providers Copied on Encounter Office/outpa tient Visit, [facility] [address] [place] [address] [address], [place], [place], [id number], [place] tel:[phone] [facility] No Information 0 Marilin Bates. [address], [place], [address], [place]. tel:[phone] Office/outpa tient Visit, [facility], [address], [place], [place], [address], [place] tel:[phone] [facility] No Information 0 Krishnasamy Dalton. [address] [facility] [address], [place], [place], [facility], [place]. tel:[phone] Office/outpa tient Visit, [facility], [address] [place] [address] [address], [place], [place], [id number], tel:[phone] [place] [address] No Information Oct-0 3-201 0 Krishnasamy Dalton. [address] [facility] [address], [place], [facility], [place]. tel:[phone] [facility], [address] [place] [address] [address], [place], [place], [id number], [place] tel:[phone] [place] [address] No Information 9-201 0 Krishnasamy Dalton. [facility] [address], [facility], [place]. tel:[phone] Referring Provider: Dalton Robles, [address] [place] [address], [place], [place], [facility]. tel:[phone] Office/outpa tient Visit, [facility], [address] [place] [address] [address], [place], [place], [id number], [place] tel:[phone] [place] [address] No Information Sep-2 3-200 9 Krishnasamy Dalton. [address] [place] [address], [place], [facility], [place]. tel:[phone] Referring Provider: [place], [address] [facility] [address], [place], [address]. tel:[phone] [facility], [address] [place] [address] [address], [place], [place], [id number], [place] tel:[phone] [place] [address] No Information Mar-1 6-200 9 Krishnasamy Dalton. [facility] [address], [place], [facility], [place]. tel:[phone] Referring Provider: Dalton Robles, [address] [facility] [address], [place], [address]. tel:[phone] [facility], [address] [facility], [place], [place], [address], tel:[phone] [facility] No Information 9 [employer]. [address] [facility], [address], [place], [place], [address], [place]. tel:[phone] Referring Provider: Dalton Robles, [address] [facility] [address], [place], [address]. tel:[phone] antonio Provider: Vianca Spence, [address] [place], [address]. tel:[phone] [facility], [address] [facility] [address], [place], [place], [address], tel:[phone] [facility] No Information 9 Margaret Tovarhil. [facility] [address], [address], [place]. tel:[phone] Family History Family Member Type Diagnosis Age At Onset No Information Payers Payer name Insurance type Covered alliance party ID Authorebonya lupis(s) [facility] Out Of State [id number] Social History Type Description Quantity Date Captured Comments Sex Female Smoking Status No Information Chief Complaint And Reason For Visit No Information Reason For Referral Reason For Referral No Information History Of Present Illness Encounter Date Complaint History Of Prese nt Illness No Information Functional Status Date Functional Assessmen t No Information Instructions Date Instruction Additional Infor mation No Information Assessments Type Assessment Date No Information Patient Care Teams Name Effective Dates (start - stop) Status Members No Information
--- OUTSIDE RECORDS SUMMARY | 2024-08-29 10:15 | XMS_ITS | Encounter Summary ---
Author Organization [facility] Address [address] [facility] [address] [place] [address] Phone Care Team Providers Care Lumber Stacker Operator Name Role Phone Gladis Song MD Unavailable Thi Lugo MD Primary Care Provider [phone] Reason for Visit * Consultation (Routine) - Closed Specialty Diagnoses / Procedures Referred By Contvannessa t Referred To Contact Neurology Diagnoses Neuropathy ([facility]/HCC) Jluis Gautam MD PhD [address] [place] [address] Phone: tel: fax: Sabine Gross PA [address] [facility] [address] [place] [address] Phone: tel: fax: Referral ID Status Reason Start Date Expiration Date V isits Requested Visits Authorized [id number] Closed Specialty Services Required 10/17/2023 11/15/2024 1 1 Encounter Details Date Type Department Care Team (Late st Contact Info) Description 04/30/2024 4:30 PM CDT Office Visit [facility] [address] [facility] 6th [place] [address] [place] [address] Sabine Gross PA [address] [facility] [address] [place] [address] Neuropathy ([facility]) Social History Tobacco Use Types Packs/Day Years Used Date Smoking Tobacco: Never Smokeless Tobacco: Never Tobacco Cessation:Counseling Given: Not Answered Alcohol Use Standard Drinks/Week Comments Yes 0 (1 standard drink = 0.6 oz pur e alcohol) 1 drink every two months PHQ-2 Answer Date Recorded PHQ-2 Score 0 04/24/2019 Comments No Sex and Gender Information Value Date Recorded Sex Assigned at Not on file 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 [employer] Gender Identity Not on file Sexual Orientation Not on file Occupation Industry Job Start Date Job End Date Retired Not on file Not on file Not on file documented as of this encounter Last Filed Vital Signs Vital Sign Reading Time Taken Comments Blood Pressure 104/64 04/30/2024 4:01 PM CDT Pulse 70 04/30/2024 4:01 PM CDT Temperature - - Respiratory Rate - - Oxygen Saturation - - Inhaled Oxygen Concentration - - Weight 62.6 kg (138 lb) 04/30/2024 4:01 PM CDT Height 147.3 cm (4' 10 ) 04/30/2024 4:01 PM CDT Body Mass Index 28.84 04/30/2024 4:01 PM CDT documented in this encounter Progress Notes * Sabine Gross PA - 04/30/2024 4:30 PM CDT [facility] [address] [place] [address] - Home Page: [email or web address] NAME: Chio Orantes : 1950 WAYLON: 04/30/2024 HISTORY OF PRESENT ILLNESS: We had the pleasure of seeing Ms. Chio Orantes at the [facility] forfollow-up of her axonal sensory-motor polyneuropathy. She was last seen in January [address] Mirza. To review, Mrs. Orantes is a 73-year-old woman who has axonal sensory-motor polyneuropathy. At her last visit, her main complaint was frequent lower extremity cramps described as tightening up that usually happens on one side or other, and worse at night. The plan was to try drinking tonic water before bed. She tried this and found it helpful, but admits she is terrible about remembering . Today, she reports things are the same. She continues to have cramping in b/l cramps at night. It feels like she is walking on kar[place]. She denies balance issues. No recent falls. Pregabalin has beenprescribed in the past, but she never picked it up from the pharmacy. She would like to try the prescription again as she feels this may be easier to remember. She has trialed Gabapentin in the past, but says it made her sleepy and forgetful. Overall, she is feeling well. She had a busy summer caring for her two 5 year old and 3 year old grandchildren. They have now returned to school and Ms. Orantes plans to spend more time focusing on herown needs. PAST MEDICAL HISTORY: Lupus, on methotrexate. Atrial fibrillation on Eliquis. 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 Multiple TIAs. Transient global amnesia times three, last in 2012. Migraine with aura. Mild cognitive impairment. Hyperlipidemia. Coronary artery disease. Heart failure with preserved ejection fraction. Borderline diabetes mellitus. MEDICATIONS: Current Outpatient Medications on File Prior to Visit Medication Sig Dispense Refill albuterol HFA (PROVENTIL HFA,VENTOLIN HFA,PROAIR HFA) 90 mcg/actuation inhaler Inhale 90 puffs ascorbic acid (VITAMIN C) 1,000 mg tablet Take 1 tablet (1,000 mg total) by mouth daily atorvastatin (LIPITOR) 80 mg tablet Take 1 tablet (80 mg total) by mouth daily bisoprolol (ZEBETA) 5 mg tablet TAKE 1 TABLET (5 MG TOTAL) BY MOUTH DAILY. 90 tablet 2 Breo Ellipta 100-25 mcg/dose diskus inhaler INHALE 1 PUFF INTO THE LUNGS DAILY. RINSE AND SPIT AFTER USE brimonidine (ALPHAGAN) 0.2 % ophthalmic solution INSTILL 1 DROP INTO BOTH EYES 3 TIMES A DAY calcium carbonate (OS-LEELA) 1,500 mg (600 mg of elemental calcium) tablet Take 2,000 mg of elementalcalcium by mouth every morning calcium carbonate-vitamin D3 1,250mg (500mg elemental) - 5 mcg (200 units) per tablet Take by mouthdaily cholecalciferol (VITAMIN D3) 2,000 unit tablet take 1 by Oral route every day (Patient taking differently: Take by mouth every morning) 0 0 dicyclomine (BENTYL) 10 mg capsule Eliquis 5 mg tablet TAKE 1 TABLET BY MOUTH TWICE A DAY 180 tablet 0 empagliflozin (Jardiance) 10 mg tablet TAKE 1 TABLET BY MOUTH EVERY DAY 90 tablet 3 fluticasone propionate (FLOVENT HFA) 110 mcg/actuation inhaler Inhale 2 puffs 2 (two) times a day Rinse mouth with water after use. Do not swallow. 2 Inhaler 2 furosemide (LASIX) 20 mg tablet TAKE 1 TABLET BY MOUTH EVERY DAY 90 tablet 3 gabapentin (NEURONTIN) 100 mg capsule Take 2 capsules (200 mg total) by mouth hydroCHLOROthiazide (HYDRODIURIL) 25 mg tablet TAKE 1 TABLET BY MOUTH EVERY DAY 90 tablet 3 isosorbide mononitrate ER (IMDUR) 30 mg 24 hr tablet TAKE 1 TABLET BY MOUTH EVERY DAY 90 tablet 0 methotrexate 2.5 mg tablet TAKE 6 TABLETS BY MOUTH ONCE A WEEK montelukast (SINGULAIR) 10 mg tablet TAKE 1 TABLET BY MOUTH EVERY DAY AT NIGHT 90 tablet 3 nitroglycerin (NITROSTAT) 0.4 mg SL tablet May repeat dose every 5 minutes for up to 3 doses total[address] (PROTONIX) 40 mg EC tablet Take 1 tablet (40 mg total) by mouth 2 (two) times a day PARoxetine (PAXIL) 20 mg tablet TAKE 1/2 TABLET BY MOUTH EVERY DAY IN THE MORNING (Patient taking differently: Take 1 tablet (20 mg total) by mouth every morning) 15 tablet 1 potassium chloride ER (Klor-Con M20) 20 mEq CR tablet TAKE 2 TABLETS EVERY MORNING AND 2 TABLETS EVERY EVENING 360 tablet 3 sucralfate (CARAFATE) 1 gram tablet triamcinolone (KENALOG) 0.1 % cream Apply topically 2 (two) times a day APPLY TO AFFECTED AREA folic acid (FOLVITE) 1 mg tablet Take 1 tablet (1 mg total) by mouth daily. Take one tab daily (Patient taking differently: Take 1 tablet (1 mg total) by mouth every morning Take one tab daily) 90 tablet 0 pregabalin (LYRICA) 75 mg capsule Take 1 capsule (75 mg total) by mouth 2 (two) times a day 60 capsule 2 No current facility-administered medications on file prior to visit. ALLERGIES: Allergies Allergen Reactions Latex Rash Sulfa (Sulfonamide Antibiotics) Swelling Levofloxacin Headache and Nausea only Nitrofurantoin Headache SOCIAL HISTORY: Lives with her . FAMILY HISTORY: No family history of peripheral neuropathy. REVIEW OF SYSTEMS: A complete review of symptoms was performed including constitutional symptoms, cardiovascular, respiratory, gastrointestinal, genitourinary, musculoskeletal, neurological, psychiatric, endocrine, immunologic, integumentary, hematological, eyes, ears, nose, mouth and throat. All symptoms negative except as per HPI. PHYSICAL EXAMINATION: VITAL SIGNS: Vitals BP 104/64 (BP Location: Right arm, Patient Position: Sitting) Pulse 70 Ht 147.3 cm (4' 10 ) Wt 62.6 kg (138 lb) LMP (LMP Unknown) BMI 28.84 kg/m?? CARDIOVASCULAR: Regular rate and rhythm. RESPIRATORY: Clear to auscultation bilaterally. EXTREMITIES: No rash. Normal bulk. NEUROLOGIC EXAMINATION: MENTAL STATUS and LANGUAGE: Awake and alert. Able to provide a detailed history. Speech was fluent and without errors. CRANIAL NERVES: Pupils are equal, round, and reactive to light, visual madrigal full to finger counting, extra-occular movements are intact and without nystagmus, sensation intact to light touch in V1-V3 distributions, face symmetric at rest and with activation, orbicularis oculi and helena are strong, hearing intact to conversation, palate elevates symmetrically, tongue is midline with brisk side toside movements, no dysarthria. MOTOR: Tone and bulk were normal throughout. Neck flexion, extension 5/5. Motor examination showed the following values by MRC : Right Left Deltoid 5/5 5/5 Biceps 5/5 5/5 Triceps 5/5 5/5 WE 5/5 5/5 FDI 5/5 5/5 APB 5/5 5/5 Hip Flexion 5/5 5/5 Quadriceps 5/5 5/5 Hamstrings 5/5 5/5 Ankle Dorsiflexion 5/5 4+/5 Ankle Plantar Flexion 5/5 5/5 SENSORY: Sensory examination showed the following by the white scale on the [facility] tuning fork: Right Left Fingers 6/8 7/8 Knees 4/8 6/8 Ankles 2/8 1/8 Toes 0/8 0/8 REFLEXES: Reflexes were as follows: Right Left Biceps 2+ 2+ Triceps 2+ 2+ Patella 3+ 3+ Ankles 2+ 2+ COORDINATION: [id number] without ataxia. Finger taps slightly slower on right side. Intention tremor less notable than previously documented. GAIT: Narrow based with normal arm swing. DIAGNOSTIC DATA: EMG: Axonal Sensorimotor Polyneuropathy (09/28/2022) -Absent sural SNAPs, Delayed tibial H wave latency bilaterally, Intermediately slowed tibial motor conduction velocity, and Distal denervation/reinnervation by EMG. -No features of demyelination HBA1C 5.9 Cervical X-Ray 08/15/2023 Normal alignment of the cervical spine. There is moderate degenerative disc height loss at C2-C5. Mild stepwise retrolisthesis from C3 through C5. There is bilateral uncovertebral arthropathy. There are no acute compression deformities of the cervical vertebrae. The prevertebral soft tissue is normal. There is calcification of the vessels. IMPRESSION: 1. Moderate degenerative disc height loss at C2-C5. 2. Mild stepwise retrolisthesis of C3-C5. IMPRESSION AND PLAN: Mrs. Chio Orantes is a 73 year old female who presents in person for follow up of sensorimotor axonal polyneuropathy secondary to lupus. Her symptoms of numbness and tingling have been stable without medication; her main issue continues to be nocturnal cramps. Her examination today is stable compared to her last exam three months ago. We discussed drinking one glass of tonic water before bed. She would like to start pregabalin 75 mg bid as was prescribed in the past. We will plan to see her back in the clinic in 9 months [address] scheduled [address] Dr[address] Mirza. She's aware to call with any questions, concerns, or changes in her condition prior to her next visit. [facility] Gross [facility] My total encounter time on 04/30/2024 was 45 minutes which was spent in the activities documented in the note. This includes time spent prior to the visit and after the visit in direct care of the patient. This time does not include time spent in any separately reportable services. documented in this encounter Plan of Treatment Not on file documented as of this encounter Visit Diagnoses Diagnosis Neuropathy (CMS/HCC) Mononeuritis of unspecified site documented in this encounter Orders Outpatient Referral Count Last Ordered Date [facility] Ordered Date AMB REFERRAL TO NEUROLOGY 1 04/30/2024 documented in this encounter Care Teams Lumber Stacker Operator Relationship Specialty [place] [id number] [facility] [address] [place] [address] PCP - General Family Medicine 02/19/22 07/19/24 [place] [id number] [facility] [address] [place] [address] Rheumatology 07/15/17 documented as of this encounter
--- OUTSIDE RECORDS SUMMARY | 2024-08-29 10:15 | XMS_ITS | Encounter Summary ---
Author Organization [facility] Address [address] [place] [address] Phone Care Team Providers Care Warehouse Picker Name Role Phone Gladis Song MD Unavailable Thi Lugo MD Primary Care Provider [phone] Encounter Details Date Type Department Care Team (Late st Contact Info) Description 11/12/2023 Orders Only [facility] Cardiology [address] [facility] [address] [place] [address] [place] [address] Judah Duggan MD [address] [place] [address] Other hyperlipidemia (Primary Dx) Social History Tobacco Use Types Packs/Day Years [...] on file 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 Gender Identity Not on file Sexual Orientation Not on file Occupation Industry Job Start Date Job End Date Retired Not on file Not on file Not on file documented as of this encounter Plan of Treatment Scheduled Orders Name Type Priority Associated Diagnoses Orde r Schedule Hepatic function panel Lab Routine Other hyperlipidemia Expected: 11/12/2023, Expires: 11/11/2024 documented as of this encounter Visit Diagnoses Diagnosis Other hyperlipidemia- Primary documented in this encounter Care Teams Warehouse Picker Relationship Specialty [place] [id number] [address] PCP - General Family Medicine 02/19/22 07/19/24 [place] [id number] [address] Rheumatology 07/15/17 documented as of this encounter
--- OUTSIDE RECORDS SUMMARY | 2024-08-29 10:15 | XMS_ITS | Referral Summary ---
Author Organization [facility] Address [address] [place] [address] Care Team Providers Care Trackmobile Operator Name Role Phone Gladis Song MD Unavailable Emily Jordan MD Primary Care Provider [phone] Encounters Date Type Department Care Team Description 08/14/2024 Telephone [facility] Scheduling [address] [place] [address] Nikko Carter MD PhD Scheduling Appointments 07/17/2024 8:45 AM GUIDE VISITOR Ancillary Procedure [facility] [address] [place] [address] [address] [place] [address] Exertional dyspnea; Chest pain, unspecified type 07/14/2024 10:00 AM GUIDE VISITOR Office Visit [facility] Cardiology [address] [place] [address] Medical Office Building [address] [place] [address] Shayna Rm MD Exertional dyspnea (Primary Dx); Paroxysmal atrial fibrillation (CMS/HCC) (HCC); Chest pain, unspecified type; Coronary artery disease involving venetie heart without angina pectoris, unspecified vessel or lesion type; Patent foramen ovale from Last 3 Months Allergies Active Allergy Reactions Criticality Noted Date Comments Latex Rash Medium Levofloxacin Headache,Nausea only Low Nitrofurantoin Headache Low Sulfa (Sulfonamide Antibiotics) Swelling Medium 07/04 Medications cholecalciferol (VITAMIN D3) 2,000 unit tablet take 1 by Oral route every day 0 0 5 Active Additional Information Patient taking differently: oral Every morning, Indications: Vitamin D Deficiency, Reported on 02/09/2022 folic acid (FOLVITE) 1 mg tablet Take 1 tablet (1 mg total) by mouth daily. Take one tab daily 90 tablet 8 Active Additional Information Patient taking differently:1 mg oralEvery morning, Take one tab daily,Indications: Folate Deficiency, Informant: Self, Reported on 06/21/2023 calcium carbonate (OS-LEELA) 1,500 mg (600 mg of elemental calcium) tabletIndication s:Post-Menopausa l Osteoporosis Prevention Take 2,000 mg of elemental calcium by mouth every morning Active fluticasone propionate (FLOVENT HFA) 110 mcg/actuation inhaler Inhale 2 puffs 2 (two) times a day Rinse mouth with water after use. Do not swallow. 2 Inhaler 2 9 Active hydroCHLOROthiaz dona (HYDRODIURIL) 25 mg tablet TAKE 1 TABLET BY MOUTH EVERY DAY 90 tablet 3 9 Active albuterol HFA (PROVENTIL HFA,VENTOLIN HFA,PROAIR HFA) 90 mcg/actuation inhaler Inhale 90 puffs 9 Active calcium carbonate-vitami n D3 1,250mg (500mg elemental) - 5 mcg (200 units) per tablet Take by mouth daily Active pantoprazole DR (PROTONIX) 40 mg EC tablet Take 1 tablet (40 mg total) by mouth 2 (two) times a day 1 Active methotrexate 2.5 mg tablet TAKE 6 TABLETS BY MOUTH ONCE A WEEK 1 Active PARoxetine (PAXIL) 20 mg tablet TAKE 1/2 TABLET BY MOUTH EVERY DAY IN THE MORNING 15 tablet 1 1 Active montelukast (SINGULAIR) 10 mg tablet TAKE 1 TABLET BY MOUTH EVERY DAY AT NIGHT 90 tablet 3 1 Active ascorbic acid (VITAMIN C) 1,000 mg tablet Take 1 tablet (1,000 mg total) by mouth daily Active sucralfate (CARAFATE) 1 gram tablet 2 Active gabapentin (NEURONTIN) 100 mg capsule Take 2 capsules (200 mg total) by mouth 2 Active dicyclomine (BENTYL) 10 mg capsule 2 Active Breo Ellipta 100-25 mcg/dose diskus inhaler INHALE 1 PUFF INTO THE LUNGS DAILY. RINSE AND SPIT AFTER USE 3 Active potassium chloride ER (Klor-Con M20) 20 mEq CR tablet TAKE 2 TABLETS EVERY MORNING AND 2 TABLETS EVERY EVENING 360 tablet 3 4 Active Additional Information Patient not taking.Reported on 07/14/2024 atorvastatin (LIPITOR) 80 mg tablet Take 1 tablet (80 mg total) by mouth daily Active triamcinolone (KENALOG) 0.1 % cream Apply topically 2 (two) times a day APPLY TO AFFECTED AREA 4 Active brimonidine (ALPHAGAN) 0.2 % ophthalmic solution INSTILL 1 DROP INTO BOTH EYES 3 TIMES A DAY Active empagliflozin (Jardiance) 10 mg tablet TAKE 1 TABLET BY MOUTH EVERY DAY 90 tablet 3 4 Active furosemide (LASIX) 20 mg tablet TAKE 1 TABLET BY MOUTH EVERY DAY 90 tablet 3 4 Active Additional Information Patient not taking.Reported on 07/14/2024 pregabalin (LYRICA) 75 mg capsuleIndicatio ns:neuropathic pain Take 1 capsule (75 mg total) by mouth 2 (two) times a day 60 capsule 5 4 Active Additional Information Patient not taking.Reported on 07/14/2024 apixaban (Eliquis) 5 mg tablet TAKE 1 TABLET BY MOUTH TWICE A DAY 180 tablet 3 4 Active isosorbide mononitrate ER (IMDUR) 30 mg 24 hr tablet TAKE 1 TABLET BY MOUTH EVERY DAY 90 tablet 3 4 Active pregabalin (LYRICA) 50 mg capsule Take 1 capsule (50 mg total) by mouth 2 (two) times a day 4 Active bisoprolol (ZEBETA) 5 mg tablet Take 1 tablet (5 mg total) by mouth daily 90 tablet 2 4 07/14/20 25 Active nitroglycerin (NITROSTAT) 0.4 mg SL tablet May repeat dose every 5 minutes for up to 3 doses total. 25 tablet 3 4 Active Active Problems Problem Noted Date Diagnosed Date Mild cognitive impairment 10/05/2022 Benign essential tremor 02/09/2022 Forgetfulness 02/09/2022 Trigger finger of right thumb 03/03/2020 Overview (03/03/2020): Added automatically from request for surgery [id number] Tachycardia 09/03/2019 Dyspepsia 09/03/2019 Annual physical exam 06/01/2019 Assessment & Plan (06/02/2019 9:41 AM CDT): Medication and allergies reviewed and updated. Past medical, surgical, family history reviewed and updated. Vital signs and BMI reviewed. Healthy lifestyle recommended, including regular exercise (daily aerobic & twice weekly resistance training), prudent diet, regular self breast & skin examinations (1 week after cycle begins), annual mammography (starting @ age 40), calcium & vitamin D supplementation, colonoscopy (starting @ age 50 for average risk person), regular gynecologic examinations with pelvic exam & PAP smear, periodic blood pressure monitoring, & bone-density testing (starting @ age 65 in average-risk person) Hypertensive heart disease w ith chronic systolic congestive heart failure ([facility]/HCC) 06/01/2019 Assessment & Plan (06/02/2019 9:43 AM CDT): On appropriate medical therapy. Continue medical therapy. 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 Able to help care for herself. Neuropathy 12/26/2018 Assessment & Plan (06/02/2019 9:43 AM CDT): Stable at this time no change in condition. CAD (coronary artery disease) 11/21/2018 Overview (11/21/2018): Mild coronary artery disease 20-30% narrowing in the circumflex and right coronar artery from 05/2018. Assessment & Plan (07/14/2024 11:36 AM GUIDE VISITOR): Moderate coronary disease with recurrent exertional dyspnea and chest pain symptoms. We will recheck exercise stress echo Assessment & Plan (12/24/2022 10:08 AM CDT): CAD with non obstructed CAD on [facility] in 2018 now with stable angina. Relieved with NTG and no further episodes since starting Imdur 30 mg daily.. CTA pending. Further recs pending results. FLP today, continue Lipitor 80mg daily, bisoprolol 5 mg daily, and follow up with Dr. Duggan in 6 months. . EKG in clinic. Assessment & Plan (06/22/2022 10:52 AM CDT): She has nonobstructive coronary artery disease and has been experiencing noncardiac chest pain. Now will continue Lipitor 80 mg q.h.s. as well as bisoprolol 5 mg daily. Assessment & Plan (06/10/2020 1:10 PM CDT): She had minimal CAD on [facility] in 2018. She continues on atorvastatin and apixaban. Assessment & Plan (06/02/2019 9:42 AM CDT): On appropriate medical therapy. Continue medication. Assessment & Plan (03/31/2019 11:49 AM CDT): Patient has nonobstructive coronary artery disease. Although she does have a PFO. She is on Eliquis 5 mg b.i.d.. She is also on atorvastatin a 80 mg nightly. Metoprolol 50 mg for heart rate control. She denies any symptoms of coronary disease Assessment & Plan (11/21/2018 8:24 AM CDT): She has non-obstructive coronary artery disease. We will continue optimal secondary risk factor strategies. She should continue Eliquis 5 mg BID. We will optimize her lipid and blood pressure management at this time. Heart failure with preserved ejection fraction ( CMS/HCC) 11/21/2018 Overview (11/21/2018): LVEDP was 22 from cardiac catheterization in May of 2018 Assessment & Plan (12/24/2022 10:07 AM CDT): Chronic HFpEF: Stable and Euvolemic in clinic today. Continue lasix 20 mg daily and HCTZ 25 mg Daily, bisoprolol 5 mg daily. Assessment & Plan (06/22/2022 10:53 AM CDT): At 1 point the patient had heart failure preserved ejection fraction. Her most recent echocardiogram from 01/18/2021 normal EF of 66% as well as impaired diastolic function. Today, she appears euvolemic on exam and is not describing any symptoms of heart failure Assessment & Plan (06/10/2020 1:10 PM CDT): Based on LVEDP in 2018. She is warm and dry on examination today. We will continue furosemide 20 mg daily. Assessment & Plan (06/02/2019 9:42 AM CDT): Followed by Cardiology. On appropriate medical therapy. Stable at this time. Continue current therapy. Assessment & Plan (02/25/2019 6:27 AM CDT): Daily weights call for greater than 3 pds weight gain one day 2g sodium diet Encourage balance nutrition and exercise Fu cardiology Reviewed all diagnostics surgery referrals laboratory Answer all questions Assessment & Plan (11/21/2018 10:12 AM CDT): She is currently euvolemic at this time. We will continue Lasix 20 mg daily with potassium supplementation. Will obtain labs that were drawn in the last few months by an outside provider to ensure that her renal function electrolytes are stable. Epigastric abdominal pain 07/03/2018 Assessment & Plan (06/30/2019 11:03 AM CDT): EGD negative. Sx resolved after metoprolol stopped. Assessment & Plan (07/11/2018 5:29 PM GUIDE VISITOR): Seems biliary by history. Will check RUQ US. If still negative, will get HIDA with [facility]. Paroxysmal atrial fibrillation (CMS/HCC) 018 Overview (05/23/2018): Although this is not well documented, she does carry this diagnosis in her chart. 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 We will continue Eliquis. She has had no more strokes or taste and she has been on Eliquis. Assessment & Plan (12/24/2022 9:57 AM CDT): Stable, denies reoccurrence. NSR today in clinic. Eliquis 5 mg BID. Assessment & Plan (06/22/2022 10:51 AM CDT): This is not well documented however given recurrent cortical strokes well as presence of PFO would recommend continuing Eliquis 5 mg b.i.d. We will discontinue aspirin 81 mg daily Assessment & Plan (06/10/2020 1:10 PM CDT): Reported historical diagnosis. She is in sinus rhythm on exam. She continues on bisoprolol and apixaban. She has not had recurrence of CVA symptoms. Assessment & Plan (06/30/2019 11:06 AM CDT): On Eliquis for CVA prophylaxis. Symptomatically improved off beta naye but HR is averaging around 100. Will defer to Dr. Duggan for what to try next. She may do better with a different BB (eg carvedilol), or a calcium channel naye -- but those are also well-known to cause GERD. Assessment & Plan (06/02/2019 9:44 AM CDT): Followed by Cardiology. AFib is not well documented in the chart. She has had strokes in the past. Continue on Eliquis. Assessment & Plan (11/21/2018 8:25 AM CDT): This has not been well documented in the past. At this time, she remains in NSR. We will continue CVA prophylaxis with Apixaban 5 mg BID Assessment & Plan (07/11/2018 5:29 PM GUIDE VISITOR): Although this is not well documented, she does carry this diagnosis in her chart. 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 We will continue Eliquis. She has had no more strokes or taste and she has been on Eliquis. Assessment & Plan (05/23/2018 10:05 AM CDT): Although this is not well documented, she does carry this diagnosis in her chart. 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 We will continue Eliquis. She has had no more strokes or taste and she has been on Eliquis. Other hyperlipidemia 05/21/2018 Assessment & Plan (12/24/2022 9:56 AM CDT): Lipitor 80 mg daily. FLP today. Assessment & Plan (06/22/2022 10:52 AM CDT): Her most recent lipid panel was obtained 1 year ago at that time her LDL cholesterol was at goal. Will repeat lipid panel. Will make no adjustments to her lipid- lowering therapy. Assessment & Plan (06/10/2020 1:11 PM CDT): Her last lipid panel was checked in 2019 and was acceptable. We will continue atorvastatin. Assessment & Plan (06/02/2019 9:44 AM CDT): Taking a statin, with no side effects to medication. Labs pending today. Assessment & Plan (11/21/2018 10:13 AM CDT): Her lipids are currently very well controlled. We will continue atorvastatin 80 mg daily. We will plan on obtaining a lipid panel at her next visit. Assessment & Plan (05/23/2018 10:00 AM CDT): Her lipids show excellent control. We will maintain her current dose of atorvastatin History of arterial ischemic stroke 05/21/2018 Overview (05/21/2018): Acute ischemic stroke in March 2016 and multiple prior TIAs.Also with history of subcortical strokes Assessment & Plan (06/02/2019 9:43 AM CDT): Patient continues on anti-platelet therapy. Will continue on the medication. Blood pressure is under good control. Assessment & Plan (05/23/2018 10:03 AM CDT): This is likely multifactorial. I am concerned that there is likely a component secondary to paroxysmal atrial fibrillation. Consequently, I believe we should maintain her Eliquis. We will also maintain her high-intensity statin and pursue good blood pressure control. She also likely has a component secondary to small- vessel disease Benign paroxysmal positional vertigo of left ear 05/13/2018 Assessment & Plan (05/13/2018 10:13 AM CDT): Discussed and handout provided with vertigo exercises and more detailed explanation of the condition. Obesity with body mass index 30 or greater 05/06 Assessment & Plan (05/13/2018 10:11 AM CDT): Weight loss encouraged. BMI 28.0-28.9,adult 04/29/2017 Assessment & Plan (09/03/2019 11:50 AM GUIDE VISITOR): BMI Follow-up includes: nutrition counseling, exercise counseling and education provided. Assessment & Plan (06/30/2019 10:11 AM CDT): BMI Follow-up includes: nutrition counseling, exercise counseling and education provided. Assessment & Plan (06/02/2019 9:41 AM CDT): Body mass index is 30.19 kg/m??. BMI Follow-up includes: nutrition counseling, exercise counseling and education provided. Assessment & Plan (03/31/2019 11:48 AM CDT): Body mass index is 30.1 kg/m??.. BMI Follow-up includes: nutrition counseling, exercise counseling and education provided. Assessment & Plan (02/25/2019 6:27 AM CDT): BMI Follow-up includes: nutrition counseling, exercise counseling and education provided. Assessment & Plan (07/03/2018 11:33 AM CDT): BMI Follow-up includes: nutrition counseling, exercise counseling and education provided. Assessment & Plan (05/13/2018 9:15 AM CDT): BMI Follow-up includes: nutrition counseling, exercise counseling and education provided. Assessment & Plan (10/21/2017 9:29 AM GUIDE VISITOR): Body mass index is 32.32 kg/m??. BMI Follow-up includes: nutrition counseling, exercise counseling and education provided. Assessment & Plan (09/23/2017 2:52 PM GUIDE VISITOR): Body mass index is 31.91 kg/m??. BMI Follow-up includes: nutrition counseling, exercise counseling and education provided. Assessment & Plan (08/16/2017 11:22 AM GUIDE VISITOR): BMI Follow-up includes: nutrition counseling, exercise counseling and education provided. Assessment & Plan (04/29/2017 8:33 PM CDT): Body mass index is 31.71 kg/m??. BMI Follow-up includes: nutrition counseling, exercise counseling and education provided. Obstructive sleep apnea syndrome 08/01/2016 Assessment & Plan (06/02/2019 9:44 AM CDT): encourage to fu pulmonary for sleep evaluation as scheduled encourage to use cpap as rx education risk benefits side affects of nonadherance Assessment & Plan (02/25/2019 6:31 AM CDT): encourage to fu pulmonary for sleep evaluation as scheduled encourage to use cpap as rx education risk benefits side affects of nonadherance Osteoarthritis 07/17/2016 Restless legs 07/17/2016 Patent foramen ovale 04/13/2016 Overview (05/21/2018): Patent foramen ovale. RoPE score of 2 with low likelihood of contribution to TIAs. Therefore, PFO closure has not been recommended Assessment & Plan (07/14/2024 11:36 AM GUIDE VISITOR): Known PFO. Already on anticoagulation due to possible history of atrial fibrillation. No clear documented history of AFib however there was enough of a clinical concern that this was started by her prior forensic anthropologist. She was tolerating this okay without any bleeding episodes. We will keep on for now. Assessment & Plan (03/31/2019 11:47 AM CDT): Patient does have a history of PFO and history of TIAs she takes Eliquis 5 mg twice a day is compliant on her medication. Assessment & Plan (11/21/2018 10:14 AM CDT): She has a ROPE score of 2 with a low likelihood of it contributing to TIAs. We will forego PFO closure at this time. Will continue to monitor her for symptoms. Assessment & Plan (05/23/2018 9:59 AM CDT): She has a ROPE score of 2. She has no indication for closing her PFO at this time. Will maintain Eliquis, her high-intensity statin blood pressure control for reduction in recurrent stroke Moderate asthma with acute exacerbation 07/12/20 15 Overview (12/06/2016): Asthma Assessment & Plan (03/31/2019 11:47 AM CDT): Refill the Flovent, and the albuterol. Prescribed a Medrol Dosepak and azithromycin for the exacerbation. Assessment & Plan (02/25/2019 6:31 AM CDT): Maintain adequate clear fluid intake. May use [id number] acetaminophen or ibuprofen. Medication instructions were provided to the patient. The risks and benefits of the treatment plan were discussed with the patient. Signs and symptoms of emergency were discussed with the patient. Minimize close contact with other individuals. Prescriptions sent to pharmacy cool mist humidifier ocean spray nasal rest call for no resolution or exacerbation or po intolerance Keep immunization up to date See orders Assessment & Plan (09/23/2017 2:52 PM GUIDE VISITOR): Using her singulair and inhaler as prescribed. Late, effect, cerebrovascular disease 06/03/2015 Assessment & Plan (05/13/2018 10:11 AM CDT): Minimal residual. Borderline diabetes mellitus 06/03/2015 Assessment & Plan (06/02/2019 9:42 AM CDT): Eating healthy. Exercising when she can. Labs pending Assessment & Plan (05/13/2018 10:12 AM CDT): Get A1c with labs again today. Weight loss recommended. Systemic lupus erythematosus ([facility]) 4 Overview (12/05/2016): SLE Assessment & Plan (06/30/2019 11:04 AM CDT): Stable, no signs of flare. Continues on HCQ, MTX, leflunomide. Assessment & Plan (06/02/2019 9:45 AM CDT): Followed by Dr. Gladis Song Assessment & Plan (02/25/2019 6:30 AM CDT): Reviewed all diagnostics surgery referrals laboratory Answer all questions Fu rheumatology Assessment & Plan (05/22/2018 9:18 AM CDT): She is having a mild flare of the arthritis and at her last visit we had suggested that she switch to SQ mtx but she has not done this yet as she did not know how to give herself a SQ injection as the prefilled syringe was not approved by her insurance. I am giving her samples of Rasuvo and we will teach her how to give herself a SQ when she runs out of the samples. Her UA shows 1+ blood and she has an appt with urology. Assessment & Plan (05/13/2018 10:10 AM CDT): Per Dr. Song. Assessment & Plan (02/26/2018 8:38 AM CDT): Patient disease activity is moderate. Patient is to continue MTX 20 mg/week. Provided samples of otrexup 20 mg/week to help reduce this currently flare. Continue HCQ. Will check routine labs today. She is going to f/u with Dr. Bueno in regards to the blood in her urine. Assessment & Plan (01/15/2018 11:27 AM CDT): Patient disease activity is moderate. Patient is to increase the MTX to 8 tablets/week. She is complaining of worsening heart burn. Gave her a sample of otrexup 20 mg to try this week. Instructed patient how to use the injection. If the heartburn lessens will prescribe vial and syringe methotrexate. Will check routine labs today. Assessment & Plan (11/21/2017 11:16 AM CDT): Patient disease activity is low. She does have synovitis on exam. She has only had two doses of the 6 tablets/week. Will give her more time on this medication. If in the meantime she experiences worsening joint pain or swelling she is to call the office and we will increase the MTX to 8 tablet/week. She is to continue FA and HCQ. Will check routine labs today. Patient seen with Dr. Song. Assessment & Plan (10/22/2017 11:13 AM GUIDE VISITOR): Patient disease activity is moderate. Her LFTs are now normal so will try increasing MTX. Patient is to continue HCQ. She is to increase the MtX to 4 tablets/week x 1 week, then increase to 6 tablets/week thereafter. Will check routine labs at the next OV. She had an eye exam recently. Assessment & Plan (09/09/2017 9:55 AM GUIDE VISITOR): MTX started at the last Ov. She is tolerating this fine. She reports less AM stiffness. Will have her increase the MTX to 4 tablets/week x 1 week, then 6 tablets/week thereafter. She is to continue HCQ. Her next eye exam is September 19, 2017. Will check labs today. She complains of worsening dry eyes and dry mouth. Can consider adding evoxac to help with dry mouth but would not do so until she is on a therapeutic dose of MTX. Assessment & Plan (07/29/2017 12:51 PM GUIDE VISITOR): Patient disease activity is moderate. Patient is to continue HCQ, she has an eye appt soon. Since she continues to have moderate disease activity will add Mtx. Patient to start MTX 3 tablets/week and 1 mg of folic acid daily. Discussed SE including but not limited to: hair thinning, mouth sores, GI upset, liver toxicity and lung fibrosis. Discussed that while patient is on this medication it is best to avoid ETOH and have routine blood work to monitor the liver. Will check routine labs today. Assessment & Plan (04/24/2017 9:31 AM CDT): Patient to continue HCQ. Does have an eye appt at the end of August. U/S with mild synovitis and power doppler. CDAI today with moderate disease activity. Discussed adding MTX vs continuing monotherapy with HCQ. Patient prefers to wait and continue HCQ at this point. Will have her get a steroid injection for her left 3rd finger that is triggering. Gastroesophageal reflux disease 01/16/2014 Overview (12/05/2016): ESOPHAGEAL REFLUX Assessment & Plan (06/30/2019 11:04 AM CDT): Resolved after metoprolol stopped. Though I've never seen someone have this side effect before, it has been reported with 1% incidence. See under atrial fib. Assessment & Plan (06/02/2019 9:42 AM CDT): Sit upright postprandial. Avoid eating after 7:00 p.m. Avoid fat sugar pork etoh Call for any signs of karen bleeding from rectum, dark tarry stools, abdominal pain nausea emesis or po intolerance, Prescription sent to pharmacy we discussed at length the risk and benefits if no resolution consult GI. Assessment & Plan (07/11/2018 5:28 PM GUIDE VISITOR): Has Hx reflux but on treatment and her symptoms don't seem consistent with this. Continue current medication for now. Assessment & Plan (05/13/2018 10:12 AM CDT): Not certain this diagnosis is correct or whether it is responsible for any symptoms given her normal EGD and lack of response to PPI therapy. Seeing forensic anthropologist next week to consider alternative explanations for heartburn . Assessment & Plan (10/22/2017 11:14 AM GUIDE VISITOR): Recently started on protonix. Assessment & Plan (10/21/2017 9:28 AM GUIDE VISITOR): Change the omeprazole to pantoprazole 40 mg daily Order an endoscopy sit upright postprandial avoid fat sugar pork etoh cardiac was ruled out call for any signs of karen bleeding from rectum, dark tarry stools, abdominal pain nausea emesis or po intolerance, prescription sent to pharmacy we discussed at length the risk and benefits if no resolution consult GI Assessment & Plan (09/23/2017 2:51 PM GUIDE VISITOR): Increase omeprazole to 40 mg daily. sit upright postprandial avoid fat sugar pork etoh cardiac was ruled out call for any signs of karen bleeding from rectum, dark tarry stools, abdominal pain nausea emesis or po intolerance, prescription sent to pharmacy we discussed at length the risk and benefits if no resolution consult GI May need endoscopy. Assessment & Plan (05/22/2017 1:54 PM CDT): Continue omeprazole. GERD Instructions ?? Do not lie flat for 1 hour after eating. ?? Elevate the head of your bed a few inches, creating a slight incline. ?? Try to sleep on your back or left side only. ?? Avoid acidic foods and common triggers: caffeine, nicotine (tobacco), fried or fatty foods, mint, chocolate. ?? Take prescribed medications regularly. Missing doses can cause a surge in stomach acid production and a flare-up of symptoms. ?? Follow up with me if you are still having symptoms twice or more per week despite following these instructions. Osteopenia 01/16/2014 Overview (12/06/2016): osteopenia Assessment & Plan (05/13/2018 10:11 AM CDT): Time to repeat DEXA (5 years) -- ordered. Assessment & Plan (05/22/2017 1:54 PM CDT): This problem is currently stable. Mirella reports no problems with treatment compliance and no new symptoms. Plan: Continue current therapy and reassess at next scheduled follow up visit. Anxiety state 01/16/2014 Overview (12/06/2016): ANXIETY STATE NOS Assessment & Plan (06/02/2019 9:41 AM CDT): Paxil 20 mg daily. Stable at this time. Assessment & Plan (05/22/2017 1:53 PM CDT): This problem is currently stable. Mirella reports no problems with treatment compliance and no new symptoms. Plan: Continue current therapy and reassess at next scheduled follow up visit. Tremor 01/29/2013 Overview (12/06/2016): Tremor Resolved Problems Problem Noted Date Diagnosed Date Resolved Date Drug reaction 06/02/2019 06/30/2019 Assessment & Plan (06/02/2019 10:01 AM CDT): Sunburn type of skin reaction to doxycycline. Triamcinolone cream Acute non-recurrent maxillary sinusitis 02/25/2019 06/01/2019 Assessment & Plan (02/25/2019 6:26 AM CDT): nasal saline every four hours over the counter, prescriptions sent to pharmacy, may use over the counter allergy or sinus medication, Maintain adequate fluid intake. May use [id number] acetaminophen or ibuprofen. Medication instructions were provided to the patient. The risks and benefits of the treatment plan were discussed with the patient. Signs and symptoms of emergency were discussed with the patient. Minimize close contact with other individuals. Chest pain due to myocardial ischemia 05/23/2018 11/21/2018 Assessment & Plan (05/23/2018 9:57 AM CDT): The patient describes chest pain concerning for unstable angina. She had evaluation for gastroesophageal reflux that was unrevealing. She had prolonged episode of chest pain last night. I will check a troponin EKG today. If they are unrevealing, I will schedule her for cardiac catheterization this coming Saturday. I will give her p.r.n. Nitroglycerin. She is already on beta-naye. I have asked her to take it easy and to come to the emergency room for any chest pain relieved by nitroglycerin. 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 Assessment & Plan (05/13/2018 10:09 AM CDT): Given duration of symptoms, will get CXR. From PND? Asymptomatic microscopic hematuria 01/15/2018 06/01/2019 Assessment & Plan (05/13/2018 10:13 AM CDT): 3D CT urogram was negative. Seeing Dr. Siddiqi. Cystoscopy next? Assessment & Plan (01/15/2018 11:30 AM CDT): Patient is going to f/u with her urologist. Bronchitis 08/16/2017 05/13/2018 Assessment & Plan (10/21/2017 9:29 AM GUIDE VISITOR): Resolved. Lungs are clear. Assessment & Plan (09/23/2017 2:52 PM GUIDE VISITOR): Order CXR today May need steroids, antibiotic if pneumonia. Assessment & Plan (08/16/2017 12:36 PM GUIDE VISITOR): Patient is still continuing to wheeze. Ventolin 2 puffs t.i.d.. Explained to patient that she should contact the office if she does not feel better. Hypokalemia 08/16/2017 05/13/2018 Assessment & Plan (08/16/2017 12:36 PM GUIDE VISITOR): Patient was given potassium at the urgent care. BMP today. 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 She is already working with a product development technician on this (but they reportedly don't know what's causing it either). We'll see if anything comes up in lab work. TIA (transient ischemic attack) 04/29/2017 05/13/2018 Assessment & Plan (04/29/2017 8:32 PM CDT): Workup completed in [facility] in [place], [place] CT negative except old infarct from previous CVA. Echo and carotid dopplers negative. Started on asprin 81 mg and already taking eliquis daily. Temporary cerebral vascular dysfunction 04/25/2017 05/13/2018 Therapeutic drug monitoring 04/24/2017 06/30/2019 Assessment & Plan (05/22/2018 9:10 AM CDT): Will monitor labs Assessment & Plan (02/26/2018 8:39 AM CDT): Will continue to monitor the patient with routine labs. CXR normal 09/2017. Assessment & Plan (01/15/2018 11:27 AM CDT): Will continue to monitor the patient with routine labs. CXR normal 09/2017. Assessment & Plan (11/21/2017 11:17 AM CDT): Will continue to monitor the patient with routine labs. CXR normal 09/2017. Assessment & Plan (10/22/2017 11:13 AM GUIDE VISITOR): Will continue to monitor the patient with routine labs. Assessment & Plan (09/09/2017 7:58 AM GUIDE VISITOR): Will continue to monitor the patient with routine labs. Assessment & Plan (07/29/2017 12:51 PM GUIDE VISITOR): Will continue to monitor the patient with routine labs. Assessment & Plan (04/24/2017 9:34 AM CDT): Will continue to monitor the patient with routine labs. 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 We will continue HCTZ 25 mg daily, Lasix 20 mg daily, Metoprolol XL 50 mg daily at this time. We will have her continue to monitor her sodium intake and maintain an active lifestyle. Assessment & Plan (05/23/2018 9:57 AM CDT): Her blood pressure is well controlled I will continue her current medical regimen Assessment & Plan (05/13/2018 10:12 AM CDT): BP 120/82 (BP Location: Right arm, Patient Position: Sitting) Pulse 72 Ht 152.4 cm (5') Wt 74.4 kg (164 lb) SpO2 97% BMI 32.03 kg/m?? Controlled. Continue current medication for now. Assessment & Plan (05/22/2017 1:54 PM CDT): Hypertension is improving with treatment. Continue current treatment regimen. Dietary sodium restriction. Weight loss. Regular aerobic exercise. Blood pressure will be reassessed at the next regular appointment. Migraine 03/16/2014 05/13/2018 Overview (12/07/2016): MIGRNE UNSP WO NTRC MGRN Atopic rhinitis 01/16/2014 05/13/2018 Overview (12/05/2016): ALLERGIC RHINITIS NOS Cerebrovascular disease 01/16/201405/03 Overview (12/06/2016): Cerebrovascular Disease Drug indicated 08/06/2012 04/24/2017 Overview (12/07/2016): LONG-TERM USE MEDS NEC Malaise and fatigue 10/30/2006 05/13/20 18 Overview (12/06/2016): MALAISE AND FATIGUE NEC Myopathy 10/30/2006 05/13/2018 Overview (12/06/2016): MYALGIA AND MYOSITIS NOS Arthralgia 10/30/2006 05/13/2018 Overview (12/07/2016): JOINT PAIN-UNSPEC Immunizations Name Administration Dates Next Due Influenza, Quadrivalent, Spl it, Intramuscular 05/17/2015 Influenza, Quadrivalent, Spl it, Preservative Free, Intramuscular 07/16/2016 Influenza, Split 05/21/2013,06/05/2011 Influenza, Trivalent, High D ose, Split, Preservative Free, Intramuscular 06/02/2019,07/03/2018,05/15/2017,07/13 Influenza, Trivalent, IM (MDV) 05/17/2015,2011,06/28/2009 Influenza, Trivalent, Recomb inant, Egg Free, Preservative Free, Antibiotic Free, IM (FLUBLOK) 05/28/2014,05/28/2014 Influenza, Unspecified 05/03/2017 Pneumococcal Conjugate PCV 13 05/22/2017 Pneumococcal Polysaccharide PPV23 05/28/2014, Social History Tobacco Use Types Packs/Day Years [...] on file Legal Sex Female 12:11 AM GUIDE VISITOR Gender Identity Not on file Sexual Orientation Not on file Occupation Industry Job Start Date Job End Date Retired Not on file Not on file Not on file Last Filed Vital Signs Vital Sign Reading Time Taken Comments Blood Pressure 106/78 07/14/2024 11:12 AM GUIDE VISITOR Pulse 74 07/14/2024 11:12 AM GUIDE VISITOR Temperature 36.4 ??C (97.6 ??F) 09/25/2023 3:34 PM CS T Respiratory Rate 18 03/28/2020 6:35 AM CDT Oxygen Saturation 98% 07/14/2024 11:12 AM GUIDE VISITOR Inhaled Oxygen Concentration - - Weight 62.1 kg (137 lb) 07/14/2024 11:12 AM GUIDE VISITOR Height 154.9 cm (5' 1 ) 07/14/2024 11:12 AM GUIDE VISITOR Body Mass Index 25.89 07/14/2024 11:12 AM GUIDE VISITOR Plan of Treatment Not on file Procedures Procedure Name Priority Date/Time Associated Diagnosis Comments STRESS ECHO EXERCISE W DOPPLER/CF W CONTRAST Routine 07/17/2024 9:12 AM GUIDE VISITOR Exertional dyspnea Chest pain, unspecified type SCREENING MAMMOGRAM BILATERAL W ELÍAS Schedule Routine, Read Routine (OP Routine) 03/31/2019 10:56 AM CDT Encounter for screening mammogram for malignant neoplasm of breast DEXA AXIAL SKELETON BONE DENSITY 1 OR MORE SITES Schedule Routine, Read Routine (OP Routine) 06/09/2018 11:34 AM CDT Osteopenia of multiple sites HEPATITIS C ANTIBODY Routine 05/22/2017 1:57 PM CDT Need for hepatitis C screening test HM COLONOSCOPY Routine 02/06/2011 from Last 3 Months or Most Recently Relevant to Health Maintenance Results * STRESS ECHO EXERCISE W DOPPLER/CF W CONTRAST (07/17/2024 9:12 AM GUIDE VISITOR) LV EF 60 % CARDIOREPORT Anatomical Region Laterality Modality Ultrasound 07/17/2024 8:45 AM GUIDE VISITOR Narrative 07/17/2024 11:46 AM GUIDE VISITOR Patient name: Mirella Orantes Date of test: 07/17/2024 Hospital #: [id number] ?Location: [facility] Interpreted by: Merrick Castano MD Rn Delivery: Cindy Suazo [facility] RN: Ramy Warner RN Reason for Test: Chest Pain, Dyspnea Study quality: Technically good Referring Physician: SHAYNA RM MD Contrast Agent: 0.45 ml Definity Administered, (1.05 ml wasted). BASELINE STUDY: Wall Motion Scoring (1=Normal 2=Hypo 3=Akinetic 4=Dyskin./Aneurysm 0=Not visualized) Parasternal Long [place]:MAS=1 BAS=1 MIL=1 AMRCY=1 Parasternal Short [place]:MAS=1 MIS=1 WY=1 MIL=1 MAL=1 MA=1 Apical 4 Chambers:=1 MIS=1 BIS=1 BAL=1 MAL=1 AL=1 AC=1 Apical 2 Chambers:AI=1 WY=1 BI=1 BA=1 MA=1 AA=1 AC=1 Ejection Fraction: 60% LV Global Strain: -19% LV Global Function: Normal left ventricular systolic function. Baseline Echo Comments: Normal LV+RV morphology and function, No wall abnormalities. Mild concentric LVH Doppler/CF Comments: No MS, MR, , AR, TS, TR, PS, SC, PA systolic pressure is 20 mmHg. Baseline HR: 69 Baseline BP: 148/88 Conduction Defects: Resting ECG Comments: Normal sinus rhythm, Cannot r/o anterior infarct vs lead placement Medications: eliquis, atorvastatin, bisoprolol, imdur, furosemide, hydrodiuril Meds held: all meds held POST EXERCISE STUDY: Wall Motion Scoring (1=Normal 2=Hypo 3=Akinetic 4=Dyskin./Aneurysm 0=Not visualized) Parasternal Long [place]:MAS=1 BAS=1 MIL=1 MARCY=1 Parasternal Short [place]:MAS=1 MIS=1 WY=1 MIL=1 MAL=1 MA=1 Apical 4 Chambers:=1 MIS=1 BIS=1 BAL=1 MAL=1 AL=1 AC=1 Apical 2 Chambers:AI=1 WY=1 BI=1 BA=1 MA=1 AA=1 AC=1 Peak HR: 129 Peak BP: 162/84 Post-Exercise Comments: Compared to baseline, there is marked increase in global systolic function without new segmental wall motion abnormalities. The patient exercised for ??6 min. 17 sec. The patient achieved: 129 bpm ??89 % of MPHR ?METS: 8 Exer. Perf: Good exercise performance. Test terminated: ??Leg discomfort Stress ECG Comments: ??No ischemic changes, ??rare PVC CONTRAST ENHANCEMENT WAS EMPLOYED after initial imaging due to sub-optimal quality related to co-morbidity defined by patient's body habitus. Impression: 1) Maximal Exercise Stress Echocardiogram NEGATIVE for myocardial ischemia 2) Good Exercise tolerance for age and gender 3) Appropriate BP response to exercise. Confirmed on ??07/17/2024 - 11:46:23 by Merrick Castano MD By signing this report, the attending forensic anthropologist certifies that he or she has personally supervised and interpreted the echocardiogram and has reviewed and or edited and agrees with the written comments contained within the report. Procedure Note Merrick Castano MD - 07/17/2024 Patient name: Mirella Orantes Date of test: 07/17/2024 Hospital #: [id number] Location: [facility] Interpreted by: Merrick Castano MD Rn Delivery: Cindy Suazo [facility]S RN: Ramy Warner RN Reason for Test: Chest Pain, Dyspnea Study quality: Technically good Referring Physician: SHAYNA RM MD Contrast Agent: 0.45 ml Definity Administered, (1.05 ml wasted). BASELINE STUDY: Wall Motion Scoring (1=Normal 2=Hypo 3=Akinetic 4=Dyskin./Aneurysm 0=Not visualized) Parasternal Long [place]:MAS=1 BAS=1 MIL=1 MARCY=1 Parasternal Short [place]:MAS=1 MIS=1 WY=1 MIL=1 MAL=1 MA=1 Apical 4 Chambers:=1 MIS=1 BIS=1 BAL=1 MAL=1 AL=1 AC=1 Apical 2 Chambers:AI=1 WY=1 BI=1 BA=1 MA=1 AA=1 AC=1 Ejection Fraction: 60% LV Global Strain: -19% LV Global Function: Normal left ventricular systolic function. Baseline Echo Comments: Normal LV+RV morphology and function, No wall abnormalities. Mild concentric LVH Doppler/CF Comments: No MS, MR, , AR, TS, TR, PS, SC, PA systolic pressure is 20 mmHg. Baseline HR: 69 Baseline BP: 148/88 Conduction Defects: Resting ECG Comments: Normal sinus rhythm, Cannot r/o anterior infarct vs lead placement Medications: eliquis, atorvastatin, bisoprolol, imdur, furosemide, hydrodiuril Meds held: all meds held POST EXERCISE STUDY: Wall Motion Scoring (1=Normal 2=Hypo 3=Akinetic 4=Dyskin./Aneurysm 0=Not visualized) Parasternal Long [place]:MAS=1 BAS=1 MIL=1 MARCY=1 Parasternal Short [place]:MAS=1 MIS=1 WY=1 MIL=1 MAL=1 MA=1 Apical 4 Chambers:=1 MIS=1 BIS=1 BAL=1 MAL=1 AL=1 AC=1 Apical 2 Chambers:AI=1 WY=1 BI=1 BA=1 MA=1 AA=1 AC=1 Peak HR: 129 Peak BP: 162/84 Post-Exercise Comments: Compared to baseline, there is marked increase in global systolic function without new segmental wall motion abnormalities. The patient exercised for 6 min. 17 sec. The patient achieved: 129 bpm 89 % of MPHR METS: 8 Exer. Perf: Good exercise performance. Test terminated: Leg discomfort Stress ECG Comments: No ischemic changes, rare PVC CONTRAST ENHANCEMENT WAS EMPLOYED after initial imaging due to sub-optimal quality related to co-morbidity defined by patient's body habitus. Impression: 1) Maximal Exercise Stress Echocardiogram NEGATIVE for myocardial ischemia 2) Good Exercise tolerance for age and gender 3) Appropriate BP response to exercise. Confirmed on 07/17/2024 - 11:46:23 by Merrick Castano MD By signing this report, the attending forensic anthropologist certifies that he or she has personally supervised and interpreted the echocardiogram and has reviewed and or edited and agrees with the written comments contained within the report. Shayna Rm MD CV ECHO PROCEDURES F inal Result * Screening Mammogram Bilateral W Elías (03/31/2019 10:56 AM CDT) Anatomical Region Laterality Modality Breast Bilateral Mammography Narrative 03/31/2019 3:57 PM CDT Mammogram Technique: Bilateral Digital Breast Tomosynthesis, Bilateral C-view 2D Screening mammogram. ??Views obtained: ??bilateral craniocaudal and bilateral mediolateral oblique. ??Computer Aided Detection was performed. Mammogram Findings: The present examination has been compared to prior imaging studies performed at [facility] on 09/12/2015, 02/11/2017 and 02/20/2018. There are scattered areas of fibroglandular density. There is no suspicious abnormality in either breast. Impression: Annual screening mammography is recommended. OVERALL FINAL ASSESSMENT: BI-RADS CATEGORY 1: ??Negative. Procedure Note Tammie Pena MD - 03/31/2019 Mammogram Technique: Bilateral Digital Breast Tomosynthesis, Bilateral C-view 2D Screening mammogram. Views obtained: bilateral craniocaudal and bilateral mediolateral oblique. Computer Aided Detection was performed. Mammogram Findings: The present examination has been compared to prior imaging studies performed at [facility] on 09/12/2015, 02/11/2017 and 02/20/2018. There are scattered areas of fibroglandular density. There is no suspicious abnormality in either breast. Impression: Annual screening mammography is recommended. OVERALL FINAL ASSESSMENT: BI-RADS CATEGORY 1: Negative. Santiago Bueno MD IMG MAMMO PROCEDURES Final Res ult * Dexa Axial Skeleton Bone Density 1 or 2 Site (06/09/2018 11:34 AM CDT) Anatomical Region Laterality Modality Body N/A Digital Radiogra phy 06/09/2018 3:08 PM CDT Impressions 06/09/2018 3:29 PM CDT ?? 1. The bone mineral density of the lumbar spine is mildly decreased. There has been a statistically significant decrease in bone mineral density since the baseline examination of 07/29/2006. 2. The bone mineral density of the left femoral neck is normal. 3. The bone mineral density of the left total hip is mildly decreased. There has been a statistically significant decrease in bone mineral density since the baseline examination of 07/29/2006. 4. Overall, the above findings are diagnostic of low bone mass (osteopenia) by WHO criteria. 5. ??Based on the FRAX fracture risk model, the 10-year probability for major osteoporotic fracture is 8.3% and that for hip fracture is 0.8%. ?? This 10-year fracture risk estimate was calculated using the risk factors noted in the history above, along with the femoral neck bone density. ?? FRAX is intended to help guide treatment decisions in men over age 50 and postmenopausal women with low bone mass (osteopenia). ?? The National Osteoporosis Foundation (NOF) recommends that FDA-approved medical therapies be considered in postmenopausal women and men age 50 years and older with ??osteoporosis and those with low bone mass ??whose 10-year fracture probability by FRAX is >= 20% for major osteoporotic fracture or >= 3% for hip fracture. However, all treatment decisions require clinical judgment and consideration of individual patient factors, including patient preferences, comorbidities, previous drug use, risk factors not captured in the FRAX model (e.g., frailty, falls, vitamin D deficiency, increased bone turnover, interval significant decline in bone density) and possible under- or over-estimation of fracture risk by FRAX. ? General comments regarding interpretation of bone mineral density measurements: A) ??In children, premenopausal woman and males under age 50 not at increased risk for fractures only Z-scores, not T-scores are used to indicate risk. ??A Z-score above -2.0 is defined as within the expected range for age and Z-score at or less than -2.0 is below the expected range for age . ??A Z-score below the expected range for age in a patient with recent fractures and/or chronic corticosteroid treatment is consistent with a diagnosis of osteoporosis. B) ??In post menopausal women and males over 50, comparison of the measured bone mineral density with the average value in young normal subjects (the T-score ) has been found to be useful in assessing fracture risk. ??Fracture risk approximately doubles for each 1.0 standard deviation (SD) in individual's hip or spine bone mineral density is below the average value of young normal subjects. ??The World Health Organization (WHO) has defined T-scores of -1.0 to -2.5 as diagnostic of low bone mass (OSTEOPENIA), and T-scores of -2.5 or lower to be diagnostic of OSTEOPOROSIS, based on the site of lowest bone density. Note that there will be a change in reporting format and reference databases as patients move from the younger population (group A) to the older population (group B) The National Osteoporosis Foundation (www.nof.org) recommends adequate intake of calcium and vitamin D and regular weight-bearing exercise in all patients. ??They recommend pharmacologic treatment in postmenopausal women and men age 50 and older presenting with any of the following: ? 1) ? Osteoporosis, after appropriate evaluation to exclude secondary causes. ? 2) ? A hip or vertebral (clinical or radiographic) fracture, regardless of the bone density. ? 3) ? Low bone mass (Osteopenia) and one or more of: other prior fractures, secondary causes associated with high risk of fracture (such as glucocorticoid use or total immobilization), or computed high risk of fracture (10-yr probability of hip fracture >= 3% or a 10-yr probability of any major osteoporosis-related fracture >= 20% based on the [place].-adapted WHO algorithm), available at http://www.shef.ac.uk/FRAX). Dictated by: William Anne M.D. Electronically signed by: Bashir Miller M.D. Narrative 06/09/2018 3:29 PM CDT BONE DENSITOMETRY OF THE SPINE AND HIP DATE OF STUDY: ??06/09/2018 HISTORY: ??67-year-old postmenopausal woman with hysterectomy at age 51. ??She is being treated with vitamin D. ??Evaluate bone mineral density. FINDINGS (SPINE): The bone mineral density of L1, L2 was assessed by dual-energy x-ray absorptiometry. The average bone mineral density within this region is 0.751 gm/sq-cm. This is 0.1 standard deviations below the mean of the average bone mineral density for age- and gender-matched subjects (the Z-score). It is 2.1 standard deviations below the mean peak bone mineral density in young adults (the T-score). L3-L4 were excluded from analysis because of degenerative changes. FINDINGS (FEMORAL NECK): The bone mineral density of the left femoral neck was assessed by dual-energy x-ray absorptiometry. The average bone mineral density within the femoral neck region is 0.739 gm/sq-cm. This is 0.8 standard deviations above the mean of the average bone mineral density for age- and gender-matched subjects (the Z-score). It is 1.0 standard deviations below the mean peak bone mineral density in young adults (the T-score). FINDINGS (TOTAL HIP): The bone mineral density of the left hip was assessed by dual-energy x-ray absorptiometry. The average bone mineral density within the total hip region is 0.813 gm/sq-cm. This is 0.4 standard deviations above the mean of the average bone mineral density for age- and gender-matched subjects (the Z-score). It is 1.1 standard deviations below the mean peak bone mineral density in young adults (the T-score). SUMMARY OF CURRENT RESULTS: Region ? Exam Date ?BMD ?T-Score ??Z-Score ?? AP Spine (L1, L2) ? 06/09/2018 ?? 0.751 ?? -2.1 ? -0.1 ? Femoral Neck (Left) ?06/09/2018 ?? 0.739 ?? -1.0 ?0.8 ? Total Hip (Left) ? 06/09/2018 ?? 0.813 ?? -1.1 ?0.4 ? COMPARISON WITH PREVIOUS RESULTS Region ? Age ?BMD ?? T-Score ?? BMD Change ? BMD Change Exam Date ?g/cm2 ?vs Baseline ?vs Previous AP Spine(L1, L2) 06/09/2018 ??67 ?0.751 ?-2.1 ? -12.0%# ? -12.4%# 11/30/2014 ??64 ?0.857 ?-1.1 ? 0.5% ?5.4%* 06/05/2011 ??60 ?0.813 ?-1.5 ?-4.7%* ?-2.1% ?? 01/20/2009 ??58 ?0.831 ?-1.3 ?-2.6% ? -2.6% ?? 07/29/2006 ??55 ?0.853 ?-1.1 ? Total Hip(Left) 06/09/2018 ??67 ?0.813 ?-1.1 ?-6.2%* ? -12.8%* 11/30/2014 ??64 ?0.933 ?-0.1 ? 7.6%* ?-2.9%* 06/05/2011 ??60 ?0.961 ? 0.2 ?10.9%* ? 9.4%* 01/20/2009 ??58 ?0.879 ?-0.5 ? 1.4% ?1.4% ?? 07/29/2006 ??55 ?0.867 ?-0.6 ? * Indicates significant change # Denotes dissimilar scan types or analysis methods ?? Procedure Note Bashir Miller MD - 06/09/2018 BONE DENSITOMETRY OF THE SPINE AND HIP DATE OF STUDY: 06/09/2018 HISTORY: 67-year-old postmenopausal woman with hysterectomy at age 51. She is being treated with vitamin D. Evaluate bone mineral density. FINDINGS (SPINE): The bone mineral density of L1, L2 was assessed by dual-energy x-ray absorptiometry. The average bone mineral density within this region is 0.751 gm/sq-cm. This is 0.1 standard deviations below the mean of the average bone mineral density for age- and gender-matched subjects (the Z-score). It is 2.1 standard deviations below the mean peak bone mineral density in young adults (the T-score). L3-L4 were excluded from analysis because of degenerative changes. FINDINGS (FEMORAL NECK): The bone mineral density of the left femoral neck was assessed by dual-energy x-ray absorptiometry. The average bone mineral density within the femoral neck region is 0.739 gm/sq-cm. This is 0.8 standard deviations above the mean of the average bone mineral density for age- and gender-matched subjects (the Z-score). It is 1.0 standard deviations below the mean peak bone mineral density in young adults (the T-score). FINDINGS (TOTAL HIP): The bone mineral density of the left hip was assessed by dual-energy x-ray absorptiometry. The average bone mineral density within the total hip region is 0.813 gm/sq-cm. This is 0.4 standard deviations above the mean of the average bone mineral density for age- and gender-matched subjects (the Z-score). It is 1.1 standard deviations below the mean peak bone mineral density in young adults (the T-score). SUMMARY OF CURRENT RESULTS: Region Exam Date BMD T-Score Z-Score AP Spine (L1, L2) 06/09/2018 0.751 -2.1 -0.1 Femoral Neck (Left) 06/09/2018 0.739 -1.0 0.8 Total Hip (Left) 06/09/2018 0.813 -1.1 0.4 COMPARISON WITH PREVIOUS RESULTS Region Age BMD T-Score BMD Change BMD Change Exam Date g/cm2 vs Baseline vs Previous AP Spine(L1, L2) 06/09/2018 67 0.751 -2.1 -12.0%# -12.4%# 11/30/2014 64 0.857 -1.1 0.5% 5.4%* 06/05/2011 60 0.813 -1.5 -4.7%* -2.1% 01/20/2009 58 0.831 -1.3 -2.6% -2.6% 07/29/2006 55 0.853 -1.1 Total Hip(Left) 06/09/2018 67 0.813 -1.1 -6.2%* -12.8%* 11/30/2014 64 0.933 -0.1 7.6%* -2.9%* 06/05/2011 60 0.961 0.2 10.9%* 9.4%* 01/20/2009 58 0.879 -0.5 1.4% 1.4% 07/29/2006 55 0.867 -0.6 * Indicates significant change # Denotes dissimilar scan types or analysis methods IMPRESSION: 1. The bone mineral density of the lumbar spine is mildly decreased. There has been a statistically significant decrease in bone mineral density since the baseline examination of 07/29/2006. 2. The bone mineral density of the left femoral neck is normal. 3. The bone mineral density of the left total hip is mildly decreased. There has been a statistically significant decrease in bone mineral density since the baseline examination of 07/29/2006. 4. Overall, the above findings are diagnostic of low bone mass (osteopenia) by WHO criteria. 5. Based on the FRAX fracture risk model, the 10-year probability for major osteoporotic fracture is 8.3% and that for hip fracture is 0.8%. This 10-year fracture risk estimate was calculated using the risk factors noted in the history above, along with the femoral neck bone density. FRAX is intended to help guide treatment decisions in men over age 50 and postmenopausal women with low bone mass (osteopenia). The National Osteoporosis Foundation (NOF) recommends that FDA-approved medical therapies be considered in postmenopausal women and men age 50 years and older with osteoporosis and those with low bone mass whose 10-year fracture probability by FRAX is >= 20% for major osteoporotic fracture or >= 3% for hip fracture. However, all treatment decisions require clinical judgment and consideration of individual patient factors, including patient preferences, comorbidities, previous drug use, risk factors not captured in the FRAX model (e.g., frailty, falls, vitamin D deficiency, increased bone turnover, interval significant decline in bone density) and possible under- or over-estimation of fracture risk by FRAX. General comments regarding interpretation of bone mineral density measurements: A) In children, premenopausal woman and males under age 50 not at increased risk for fractures only Z-scores, not T-scores are used to indicate risk. A Z-score above -2.0 is defined as within the expected range for age and Z-score at or less than -2.0 is below the expected range for age . A Z-score below the expected range for age in a patient with recent fractures and/or chronic corticosteroid treatment is consistent with a diagnosis of osteoporosis. B) In post menopausal women and males over 50, comparison of the measured bone mineral density with the average value in young normal subjects (the T-score ) has been found to be useful in assessing fracture risk. Fracture risk approximately doubles for each 1.0 standard deviation (SD) in individual's hip or spine bone mineral density is below the average value of young normal subjects. The World Health Organization (WHO) has defined T-scores of -1.0 to -2.5 as diagnostic of low bone mass (OSTEOPENIA), and T-scores of -2.5 or lower to be diagnostic of OSTEOPOROSIS, based on the site of lowest bone density. Note that there will be a change in reporting format and reference databases as patients move from the younger population (group A) to the older population (group B) The National Osteoporosis Foundation (www.nof.org) recommends adequate intake of calcium and vitamin D and regular weight-bearing exercise in all patients. They recommend pharmacologic treatment in postmenopausal women and men age 50 and older presenting with any of the followin) Osteoporosis, after appropriate evaluation to exclude secondary causes. 2) A hip or vertebral (clinical or radiographic) fracture, regardless of the bone density. 3) Low bone mass (Osteopenia) and one or more of: other prior fractures, secondary causes associated with high risk of fracture (such as glucocorticoid use or total immobilization), or computed high risk of fracture (10-yr probability of hip fracture >= 3% or a 10-yr probability of any major osteoporosis-related fracture >= 20% based on the [place].-adapted WHO algorithm), available at http://www.shef.ac.uk/FRAX). Dictated by: William Anne M.D. Electronically signed by: Bashir Miller M.D. Santiago Bueno MD [facility] DXA PROCEDURES Final Resul t * Hepatitis C antibody (05/22/2017 1:57 PM CDT) Pathologist [facility] [place] Hep C Ab Non-Reacti ve Non-Reacti ve [facility] Comment:Testing performed by : [facility], [facility] [facility], [place]., [address] Blood specimen (specimen) 05/22/2017 1:57 PM CDT 05/22/2017 8:04 PM CDT us Santiago Bueno MD LAB MICROBIOLOGY - GENERAL ORD ERABLES Final Result [facility] [address] [facility]. Department [place] [address] * COLONOSCOPY (02/06/2011) Colonoscopy Normal Historical Provider HEALTH MAINTENANCE Final Result from Last 3 Months or Most Recently Relevant to Health Maintenance Insurance AETNA MEDICARE AETNA MEDICARE [facility] MEDICARE [facility] MEDICARE [facility] MEDICARE Advance Directives For more information, please contact: [phone] * Full Code (Latest Code Status on File) Date Activated Date Inactivated Comments 05/26/2018 10:21 AM 05/26/2018 2:17 PM Care Teams Trackmobile Operator Relationship Specialty [place] [id number] [address] PCP - General Family Medicine 07/20/24 [place] [id number] [address] Rheumatology 07/15/17
--- OUTSIDE RECORDS SUMMARY | 2024-08-29 10:15 | XMS_ITS | Encounter Summary ---
Author Organization [facility] Address [address] [place] [address] Phone Care Team Providers Care Cna Instructor Name Role Phone Gladis Song MD Unavailable Thi Lugo MD Primary Care Provider [phone] Reason for Visit * Consultation (Routine) - Closed Specialty Diagnoses / Procedures Referred By Contvannessa t Referred To Contact Neurology Diagnoses [place] [address] [place] [address] Phone: tel: fax: Julianna Mirza MD [address] [place] [address] Phone: tel: fax: Referral ID Status Reason Start Date Expiration Date V isits Requested Visits Authorized [id number] Closed Specialty Services Required 01/14/2024 02/12/2025 1 1 Encounter Details Date Type Department Care Team (Late st Contact Info) Description 01/16/2024 12:00 PM CDT Office Visit [facility] Muscle [address] [facility] 6th [place] [address] [place] [id number] Julianna Mirza MD [address] [place] [address] Sensory motor neuropathy Social History Tobacco Use Types Packs/Day Years [...] on file 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 Gender Identity Not on file Sexual Orientation Not on file Occupation Industry Job Start Date Job End Date Retired Not on file Not on file Not on file documented as of this encounter Last Filed Vital Signs Vital Sign Reading Time Taken Comments Blood Pressure 114/70 01/16/2024 11:54 AM CDT Pulse 73 01/16/2024 11:54 AM CDT Temperature - - Respiratory Rate - - Oxygen Saturation - - Inhaled Oxygen Concentration - - Weight 62.8 kg (138 lb 6.4 oz) 01/16/2024 11:54 AM CDT Height 152.4 cm (5') 01/16/2024 11:54 AM CDT Body Mass Index 27.03 01/16/2024 11:54 AM CDT documented in this encounter Patient Instructions * Patient Instructions* Consuelo Doe MD - 01/16/2024 12:00 PM CDT Start taking tonic water, and stay hydrated. If issues persist with cramps, let us know. Follow up in [address] Mirza. documented in this encounter Progress Notes * Consuelo Doe MD - 01/16/2024 12:00 PM CDT [facility] [address] [place] [id number] - Home Page: [email or web address] NAME: Chio Orantes : 1950 WAYLON: 01/16/2024 HISTORY OF PRESENT ILLNESS: We had the pleasure of seeing Ms. Chio Orantes at the [facility] forfollow-up of her axonal sensory-motor polyneuropathy. Mrs. Orantes is a 73-year-old woman who has axonal sensory-motor polyneuropathy. She was last seen inoffice by Dr. Mirza on 08/2023. It was recommended last visit that she start Pregabilin 75 mg bid. She says she did not start the medication as there was an issue at the pharmacy, and then she did not follow up. She has trialed Gabapentin in the past, but says it made her sleepy and forgetful. Her main complaint today is experiencing frequent lower extremity complaints of cramps described as tightening up that usually happens on one side or other, and worse at night. She says it occurs every couple of weeks; the last episode was last night. She notices it is worse than dehydrated so she tries to avoid dehydration. At her last visit, she was recommended to drink tonic water. She said she forgot to do it. She says that she also experiences neck pain with a shooting pain into her shoulders. She had an Cervical xray which showed there was moderate degenerative disc disease at C2-C5, and evidence of stepwise retrolisthesis C3-C5. PAST MEDICAL HISTORY: Lupus, on methotrexate. Atrial fibrillation on Eliquis. 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 Multiple TIAs. Transient global amnesia times three, last in 2012. Migraine with aura. Mild cognitive impairment. Hyperlipidemia. Coronary artery disease. Heart failure with preserved ejection fraction. Borderline diabetes mellitus. MEDICATIONS: As cited and reviewed in the [facility] medical record. ALLERGIES: As cited and reviewed in the [facility] medical record. SOCIAL HISTORY: Lives with her . FAMILY HISTORY: No family history of peripheral neuropathy. REVIEW OF SYSTEMS: A complete review of symptoms was performed including constitutional symptoms, cardiovascular, respiratory, gastrointestinal, genitourinary, musculoskeletal, neurological, psychiatric, endocrine, immunologic, integumentary, hematological, eyes, ears, nose, mouth and throat. All symptoms negative except as per HPI. PHYSICAL EXAMINATION: VITAL SIGNS: Vitals BP 114/70 (BP Location: Right arm, Patient Position: Sitting) Pulse 73 Ht 152.4 cm (5') Wt 62.8 kg (138 lb 6.4 oz) LMP (LMP Unknown) BMI 27.03 kg/m?? CARDIOVASCULAR: Regular rate and rhythm. RESPIRATORY: [...] following by the white scale on the [facility] tuning fork: Right Left Fingers 6/8 7/8 Knees 4/8 4/8 Ankles 2/8 2/8 Toes 0/8 0/8 REFLEXES: Reflexes were as follows: Right Left Biceps 2+ 2+ Triceps 2+ 2+ Patella 3+ 3+ Ankles 2+ 2+ COORDINATION: [id number] without ataxia. Finger taps slightly slower on right side. Intention tremor less notable than previously documented. GAIT: Narrow based with normal arm swing. Able to walk on heels and toes with some difficulty. DIAGNOSTIC DATA: EMG: Axonal Sensorimotor Polyneuropathy (09/28/2022) [...] been stable without medication; her main issue today is nocturnal cramps. Her examination today when compared to last year visit's is relatively stable. She continues to have length dependent sensory deficits of decreased pin prick and vibratory deficits. She has symmetrical hyperreflexia in the patellar reflex. She has been counseled to drink tonic water (one glass per day) for the nocturnal cramps to see if this management provides relief. She also will continue to avoid dehydration. Pregabilin 75 mg bid may be initiated if her symptoms worsen or become disruptive. Her symmetrical hyperreflexia on examination may be explained by the moderate degenerative changes seen on x-ray. While she does have intermittent neck and shoulder pain; she may pursue MRI imaging if her intermittent symptoms worsen or become more debilitating. She will follow up with Dr. Mirza in 1 year, and is aware to call in there interim should any issues arise. Consuelo Doe MD Neuromuscular Fellow Cosigned by Julianna Mirza MD at 01/19/2024 3:37 PM CDT Associated attestation - Julianna Mirza MD - 01/19/2024 3:37 PM CDT I have seen and examined the patient. I agree with the findings and plan of care as documented in the resident/fellow's note. My total encounter time on 01/16/2024 was 25 minutes which was spent in the activities documented in the note. This includes time spent prior to the visit and after the visitin direct care of the patient. This time does not include time spent in any separately reportable services. documented in this encounter Plan of Treatment Not on file documented as of this encounter Visit Diagnoses Diagnosis Sensory motor neuropathy documented in this encounter Orders Outpatient Referral Count Last Ordered Date Fir st Ordered Date AMB REFERRAL TO NEUROLOGY 1 01/16/2024 documented in this encounter Care Teams Cna Instructor Relationship Specialty [place] [address] [facility] [address] [place] [address] PCP - General Family Medicine 02/19/22 07/19/24 [place] [address] [facility] [address] [place] [address] Rheumatology 07/15/17 documented as of this encounter
--- OUTSIDE RECORDS SUMMARY | 2024-08-29 10:15 | XMS_ITS | Encounter Summary ---
Author Organization [facility] Address [address] [place] [address] Phone Care Team Providers Care Intern Name Role Phone Gladis Song MD Unavailable Thi Lugo MD Primary Care Provider [phone] Encounter Details Date Type Department Care Team (Late st Contact Info) Description 03/27/2024 Telephone [facility] Cardiology [address] [facility] 8th [place] [address] [place] [address] Darshana Sims Social History Tobacco Use Types Packs/Day Years [...] on file 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 Pt stated that Today BP was 149/80 Pt stated that the other mornings since our call BPs are 119-120 systolic. Pt stated that she has not had a lower pressure and she has not had dizziness. Pt stated she has been taking all of her medications. Advised pt to continue meds as prescribed. Pr understood and said she will notify is dizziness or lower Bps happens gain and will continue to monitor * Telephone Encounter - Tawana De Leon RN - 03/31/2024 10:36 AM CDT LMOR for pt to call. * Telephone Encounter - Tawana De Leon RN - 03/30/2024 12:24 PM CDT LMOR for pt to call. * Telephone Encounter - Son Rm MD - 03/30/2024 12:09 PM CDT Stop imdur and give it a couple days. If still low would stop hctz * Telephone Encounter - Tawana De Leon RN - 03/27/2024 11:11 AM CDT Pt stated that her SBP is 90s . Pt stated that for the past few days she has been feeling dizzy or like she is going to pass out after her morning medications . Pt currently taking Bisoprolol 5 mg HCTZ 25 mg Lasix 20 mg Isosorbide 30 mg Jardiance 10 mg Pt has if she need to take all of her current medications or if something needs to be reduces Pt currently not home. Pt stated that she will send what she has in regards to BP reading when she gets home via patient message . Informed pt that decisions may be made after the MD reviews her pressures * Telephone Encounter - Darshana Sims - 03/27/2024 10:47 AM CDT RAPHAEL PT STATES BP HAS BEEN LOW. MOST RECENT WAS 112/75 TAKEN THIS MORNING. STATES HAS BEEN FEELING OF PASSING OUT. HAS NTP APPT 07/[address] RM documented in this encounter Plan of Treatment Not on file documented as of this encounter Visit Diagnoses Not on filedocumented in this encounter Care Teams Intern Relationship Specialty [place] [address] [facility] [address] [place] [address] PCP - General Family Medicine 02/19/22 07/19/24 [place] [address] [facility] [address] [place] [address] Rheumatology 07/15/17 documented as of this encounter
--- OUTSIDE RECORDS SUMMARY | 2024-08-29 10:15 | XMS_ITS | Encounter Summary ---
Author Organization [facility] Address [address] [place] [address] Phone Care Team Providers Care Flat Locker Name Role Phone Gladis Song MD Unavailable Thi Lugo MD Primary Care Provider [phone] Encounter Details Date Type Department Care Team (Late st Contact Info) Description 06/21/2023 11:50 AM CDT Lab [facility] Endocrinology Metabolism and Lipid [address] 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 Gender Identity Not on file Sexual Orientation Not on file Occupation Industry Job Start Date Job End Date Retired Not on file Not on file Not on file documented as of this encounter Plan of Treatment Not on file documented as of this encounter Procedures Procedure Name Priority Date/Time Associated Diagnosis Comments BASIC METABOLIC PANEL Routine 06/21/2023 11:06 AM CDT Chronic heart failure with preserved ejection fraction (CMS/HCC) (HCC) documented in this encounter Results * Basic metabolic panel (06/21/2023 11:06 AM CDT) Glucose 86 64 - 99 mg/dL [facility] Comment: NONFASTING GLUCOSE RANGE = 64-199 mg/dL FASTING GLUCOSE 64 - 99 = NORMAL FASTING GLUCOSE 100 - 125 = IMPAIRED FASTING GLUCOSE FASTING GLUCOSE >=126 = PROVISIONAL DIAGNOSIS OF DIABETES Potassium 4.2 3.3 - 5.1 mmol/L [facility] Creatinine 0.76 0.60 - 1.10 mg/dL [facility] BUN 22 7 - 23 mg/dL [facility] Sodium 139 135 - 145 mmol/L [facility] Chloride 102 95 - 107 mmol/L [facility] CO2 Content 28 21 - 29 mmol/L [facility] Calcium 9.5 8.6 - 10.3 mg/dL [facility] eGFR 82.2 >60.0 mL/min/1.7 3 m2 [facility] Blood 06/21/2023 11:0 6 AM CDT 06/21/2023 12:04 PM CDT Judah Duggan MD LAB BLOOD ORDERABLES Final Res ult [facility] documented in this encounter Visit Diagnoses Diagnosis Chronic heart failure with preserved ejection fraction (CMS/HCC) (HCC) documented in this encounter Care Teams Flat Locker Relationship Specialty [place] [address] [facility] [address] [place] [address] PCP - General Family Medicine 02/19/22 07/19/24 [place] [address] [facility] [address] [place] [address] Rheumatology 07/15/17 documented as of this encounter
--- OUTSIDE RECORDS SUMMARY | 2024-08-29 10:15 | XMS_ITS | Encounter Summary ---
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 Mirza either August 15, 2023 or August 22, 2023 at 11:30 am held slot. I will try again later Archana Gonzalezally signed by Archana Keen at 07/15/2023 2:54 PM TECHNICAL SUPPORT ANALYST documented in this encounter Plan of Treatment Not on file documented as of this encounter Visit Diagnoses Not on filedocumented in this encounter Care Teams Mail Technician Relationship Specialty [place] [address] [facility] [address] [place] [address] PCP - General Family Medicine 02/19/22 07/19/24 [place] [address] [facility] [address] [place] [address] Rheumatology 07/15/17 documented as of this encounter
--- OUTSIDE RECORDS SUMMARY | 2024-08-29 10:15 | XMS_ITS | Encounter Summary ---
Author Organization [facility] Address [address] [place] [address] Phone Care Team Providers Care Manager Sterile Name Role Phone Gladis Song MD Unavailable Thi Lugo MD Primary Care Provider [phone] Reason for Visit * Reason Onset Date Comments Pregabalin needing PA 08/21/2023 Encounter Details Date Type Department Care Team (Late st Contact Info) Description 08/21/2023 Telephone [facility] [address] [facility] [address] 6th [place] [address] [place] [address] Tammie Paul CMA Pregabalin needing PA Social History Tobacco Use Types Packs/Day Years [...] on file 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 SALES MANAGER documented in this encounter Plan of Treatment Not on file documented as of this encounter Visit Diagnoses Not on filedocumented in this encounter Care Teams Manager Sterile Relationship Specialty [place] [address] [facility] [address] [place] [address] PCP - General Family Medicine 02/19/22 07/19/24 [place] [address] [facility] [address] [place] [address] Rheumatology 07/15/17 documented as of this encounter
--- OUTSIDE RECORDS SUMMARY | 2024-08-29 10:15 | XMS_ITS | Encounter Summary ---
Author Organization [facility] Address [address] [place] [address] Phone Care Team Providers Care Nca Certified Concierge Name Role Phone Gladis Song MD Unavailable Thi Lugo MD Primary Care Provider [phone] Encounter Details Date Type Department Care Team (Late st Contact Info) Description 08/06/2023 Telephone [facility] Cardiology [address] 8th [place] [address] [place] [address] Judah Duggan MD [address] [place] [address] Social History Tobacco Use Types Packs/Day Years [...] on file 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 Gender Identity Not on file Sexual Orientation Not on file Occupation Industry Job Start Date Job End Date Retired Not on file Not on file Not on file documented as of this encounter Miscellaneous Notes * Telephone Encounter - Dannielle Blackwood RN - 08/06/2023 8:18 AM CST mailed RIAL REPROCESSING ASSOCIATE * Telephone Encounter - Dannielle Blackwood RN - 08/06/2023 8:18 AM CST ----- Message from Dannielle Blackwood RN sent at 08/05/2023 9:02 AM MATERIAL REPROCESSING ASSOCIATE ----- Mail lab order ----- Message ----- From: Dannielle Blackwood RN Sent: 08/05/2023 12:00 AM MATERIAL REPROCESSING ASSOCIATE To: Preet Arellano [facility] Mail external bmp lab order RIAL REPROCESSING ASSOCIATE documented in this encounter Plan of Treatment Not on file documented as of this encounter Visit Diagnoses Not on filedocumented in this encounter Care Teams Nca Certified Concierge Relationship Specialty [place] [id number] [address] PCP - General Family Medicine 02/19/22 07/19/24 [place] [id number] [address] Rheumatology 07/15/17 documented as of this encounter
--- OUTSIDE RECORDS SUMMARY | 2024-08-29 10:15 | XMS_ITS | Encounter Summary ---
Author Organization [facility] Address [address] [place] [address] Phone Care Team Providers Care Education Professor Name Role Phone Gladis Song MD Unavailable Thi Lugo MD Primary Care Provider [phone] Reason for Referral * Diagnostic Imaging (Routine) - Closed Specialty Diagnoses / Procedures Referred By Contac t Referred To Contact Diagnoses Neck pain Procedures XR Spine Cervical 2 or 3 Views Julianna Mirza MD [address] [place] [address] Phone: tel: fax: [facility] Referral ID Status Reason Start Date Expiration Date Visits Re quested Visits Authorized [id number] Closed 08/15/2023 09/13/2024 1 1 NSION STONE QUARRY SUPERVISOR Reason for Visit * Consultation (Routine) - Closed Specialty Diagnoses / Procedures Referred By Contac t Referred To Contact Neurology Diagnoses Neuropathy ([facility]/HCC) Jluis Gautam MD PhD [address] [place] [address] Phone: tel: fax: Julianna Mirza MD [address] [place] [address] Phone: tel: fax: Referral ID Status Reason Start Date Expiration Date V isits Requested Visits Authorized [id number] Closed Specialty Services Required 07/16/2023 08/14/2024 1 1 Encounter Details Date Type Department Care Team (Late st Contact Info) Description 08/15/2023 11:30 AM DIMENSION STONE QUARRY SUPERVISOR Office Visit [facility] Neuro Muscle [address] 6th [place] [address] [place] [id number] Julianna Mirza MD [address] [place] [address] Neck pain (Primary Dx); Neuropathy (CMS/HCC) Social History Tobacco Use Types Packs/Day Years [...] on file Legal Sex Female 12:11 AM DIMENSION STONE QUARRY SUPERVISOR Gender Identity Not on file Sexual Orientation Not on file Occupation Industry Job Start Date Job End Date Retired Not on file Not on file Not on file documented as of this encounter Last Filed Vital Signs Vital Sign Reading Time Taken Comments Blood Pressure 103/67 08/15/2023 11:32 AM DIMENSION STONE QUARRY SUPERVISOR Pulse 81 08/15/2023 11:32 AM DIMENSION STONE QUARRY SUPERVISOR Temperature - - Respiratory Rate - - Oxygen Saturation - - Inhaled Oxygen Concentration - - Weight 65.3 kg (144 lb) 08/15/2023 11:32 AM DIMENSION STONE QUARRY SUPERVISOR Height 147.3 cm (4' 10 ) 08/15/2023 11:32 AM DIMENSION STONE QUARRY SUPERVISOR Body Mass Index 30.1 08/15/2023 11:32 AM DIMENSION STONE QUARRY SUPERVISOR documented in this encounter Patient Instructions * Patient Instructions* Julianna Mirza MD - 08/15/2023 11:30 AM DIMENSION STONE QUARRY SUPERVISOR -Obtain cervical x-ray due to radiating neck pain -Start pregabalin 75mg BID for neuropathic pain -f/u in 6mth with Sabine Gross in 6mth and Dr. Mirza in 1 year NSION STONE QUARRY SUPERVISOR documented in this encounter Ordered Prescriptions Prescription Sig Dispense Quantity Refills Last Filled Start Date End Date pregabalin (LYRICA) 75 mg capsuleIndications :neuropathic pain Take 1 capsule (75 mg total) by mouth 2 (two) times a day 60 capsule 2 08/15/2023 4 documented in this encounter Progress Notes * Julianna Mirza MD - 08/15/2023 12:00 AM CST MIRELLA ORANTES : 1950 WAYLON: 08/15/2023 HISTORY OF PRESENT ILLNESS: We had the pleasure of seeing Ms. 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 As you know, she is a 72-year-old woman with the history of lupus, atrial fibrillation on Eliquis, left hemispheric strokes with residual right-sided weakness, multiple episodes of transient global amnesia, the last [id number], migraine with aura, mild cognitive impairment, coronary artery disease, hyperlipidemia and borderline diabetes, who is here for follow-up of her peripheral neuropathy. She initially developed numbness, tingling, and pain in her legs up to the calves about two years ago. She underwent EMG/nerve conduction studies that showed evidence for an axonal sensory-motor polyneuropathy. Workup for acquired causes of neuropathy was unremarkable apart from her known diagnosis of lupus and borderline diabetes. She was last seen in my clinic in August of 2022 and returns today for a follow-up visit accompanied by her . She notes that she has noticed worsening calf cramps over the past couple of months, which are most notable in the evening when she lies down to sleep. She otherwise continues to have numbness and tingling up to her knees, but is worse in the feet. When she walks she feels like she is stepping on stones, and this can become uncomfortable. However, she continues to be able to walk up to four hours at a time when shopping. She has previously tried inserts prescribed by a linoleum printer, but these were unhelpful. She had also tried gabapentin 200 mg nightly in the past and had to discontinue this due to forgetfulness. She indicates she is planning to prepare holiday meals for her family which includes about 20 to 30 people. She finds that she becomes more fatigued with these activities now, and hopes to have involvement of her family members to prepare. PAST MEDICAL HISTORY: 1. Lupus, on methotrexate. Recently her methotrexate had to be held due to transaminitis, and she plans to have follow-up with her warehouse operations manager to discuss continuation of therapy. 2. Atrial fibrillation on Eliquis. 3. 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 4. Multiple TIAs. 5. Transient global amnesia times three, last in 2013. 6. Migraine with aura. 7. Mild cognitive impairment. 8. Hyperlipidemia. 9. Coronary artery disease. 10. Heart failure with preserved ejection fraction. 11. Borderline diabetes mellitus. MEDICATIONS: Reviewed and reconciled in Epic. ALLERGIES: REVIEWED AND RECONCILED IN EPIC. SOCIAL HISTORY: No changes. FAMILY HISTORY: No changes. REVIEW OF SYSTEMS: A complete review of systems was performed including constitutional symptoms, cardiovascular, respiratory, gastrointestinal, genitourinary, musculoskeletal, neurological, psychiatric, endocrine, immunologic, integumentary, hematological, eyes, ears, nose, mouth and throat. All systems negative except as per HPI. PHYSICAL EXAMINATION: VITAL SIGNS: Blood pressure 103/67, pulse 81, weight 144 pounds, height 4 feet 10 inches. NEUROLOGIC EXAMINATION: MENTAL STATUS: She is alert and able to provide a coherent history without difficulty. Speech is fluent without dysarthria. CRANIAL NERVES: Pupils are equal, round, and reactive to light. Extraocular movements are full without nystagmus. She has good upper and lower facial strength. Tongue is midline with rapid movements.V1-V3 is intact to light touch. Sternocleidomastoids and shoulder shrug are strong. MOTOR: She has normal bulk and tone. Neck flexors and extensors are 5/5. Motor strength is 5/5 throughout with the exception of her right deltoid, which is 4+/5, and right wrist extensor which is 4+/5. She does have a notable intention tremor with [id number] that is worse on the right compared to the left. At times this is often noted at rest. SENSORY: She has reduced sensation to pin in the legs but not the arms. Vibratory sense is 0/8 at the toes, 3/8 at the ankles, and 6/8 at the fingers. Romberg is negative. REFLEXES: Deep tendon reflexes are 2+ at the biceps, 2+ at the triceps, 2+ at the brachioradialis, 3+ at the patellas, and 2+ at the ankles. Toes are mute. Aguilar's is negative. GAIT: She has a normal based gait and is able to heel walk and toe walk, but has difficulty tandem walking beyond two steps. ASSESSMENT AND PLAN: In summary, Ms. Mirella Orantes is a 72-year-old woman who was seen for follow-up of her sensory-motor axonal neuropathy likely secondary to lupus. Her examination today was notable for reduced sensationto pin and vibration with stable residual right-sided weakness from her stroke. Notably she does have relative hyperreflexia given her known neuropathy. Today I recommended that she undergo a cervical x-ray to assess for any structural changes that could be concerning for cervical cord compression.She also notes worsening balance over the past year, although she has not had any falls. Today I had also recommended that she start pregabalin at 75 mg b.i.d. for treatment of neuropathic pain. I also recommended that she try drinking a glass of tonic water a day as well as remaining hydrated to help treat her calf cramps. I otherwise plan to see her in follow-up in one year. ELECTRONICALLY SIGNED - 08/22/2023 11:09 AM Julianna Mirza M.D. DIPAK/jeb NSION STONE QUARRY SUPERVISOR documented in this encounter Plan of Treatment Not on file documented as of this encounter Results * XR Spine Cervical 2 or 3 Views (08/15/2023 1:02 PM DIMENSION STONE QUARRY SUPERVISOR) Anatomical Region Laterality Modality Spine N/A Computed Radiogr aphy 08/15/2023 2:08 PM DIMENSION STONE QUARRY SUPERVISOR Impressions 08/15/2023 5:16 PM DIMENSION STONE QUARRY SUPERVISOR 1. ??Moderate degenerative disc height loss at C2-C5. 2. ??Mild stepwise retrolisthesis of C3-C5. Dictated by: Nancy Chatman MD The radiology attending physician has personally reviewed this study, and had reviewed and/or edited this written report and agrees with it. Electronically signed by: Duong Dubon MD Narrative 08/15/2023 5:16 PM DIMENSION STONE QUARRY SUPERVISOR EXAMINATION: XR SPINE CERVICAL 2 OR 3 VIEWS HISTORY: neck pain COMPARISON: None FINDINGS: 2 views of the cervical spine are submitted for interpretation. Normal alignment of the cervical spine. ??There is moderate degenerative disc height loss at C2-C5. ??Mild stepwise retrolisthesis from C3 through C5. ??There is bilateral uncovertebral arthropathy. There are no acute compression deformities of the cervical vertebrae. The prevertebral soft tissue is normal. ??There is calcification of the vessels. Procedure Note Duong Dubon MD - 08/15/2023 EXAMINATION: XR SPINE CERVICAL 2 OR 3 VIEWS HISTORY: neck pain COMPARISON: None FINDINGS: 2 views of the cervical spine are submitted for interpretation. Normal alignment of the cervical spine. There [...] C2-C5. 2. Mild stepwise retrolisthesis of C3-C5. Dictated by: Nancy Chatman MD The radiology attending physician has personally reviewed this study, and had reviewed and/or edited this written report and agrees with it. Electronically signed by: Duong Dubon MD Julianna Mirza MD IMG XR PROCEDURES Final Result documented in this encounter Visit Diagnoses Diagnosis Neck pain- Primary Cervicalgia Neuropathy (CMS/HCC) Mononeuritis of unspecified site Neck pain Cervicalgia documented in this encounter Orders Outpatient Referral Count Last Ordered Date Fir st Ordered Date AMB REFERRAL TO NEUROLOGY 1 08/15/2023 documented in this encounter Care Teams Education Professor Relationship Specialty [place] [address] [facility] [address] [place] [address] PCP - General Family Medicine 02/19/22 07/19/24 [place] [address] [facility] [address] [place] [address] Rheumatology 07/15/17 documented as of this encounter
--- OUTSIDE RECORDS SUMMARY | 2024-08-29 10:15 | XMS_ITS | Encounter Summary ---
Author Organization [facility] Address [address] [place] [address] Phone Care Team Providers Care Survival Specialist Name Role Phone Gladis Song MD Unavailable Thi Lugo MD Primary Care Provider [phone] Encounter Details Date Type Department Care Team (Late st Contact Info) Description 08/15/2023 Telephone [facility] Cardiology [address] [facility] [address] 8th [place] [address] [place] [address] Judah Duggan MD [address] [place] [address] Social History Tobacco Use Types [...] on file Legal Sex Female 12:11 AM MECHANICAL TECH Gender Identity Not on file Sexual Orientation Not on file Occupation Industry Job Start Date Job End Date Retired Not on file Not on file Not on file documented as of this encounter Miscellaneous Notes * Telephone Encounter - Dannielle Blackwood RN - 08/15/2023 1:11 PM CST Order refaxed to [facility], . LMOVM of pt that order has been resent. Fasting is not required ANICAL TECH * Telephone Encounter - Alisa Hankins - 08/15/2023 12:58 PM CST [facility] Pt has misplaced her lab order and is asking for another one to be sent to her or to [facility] in [place], [place]. Please call. ANICAL TECH documented in this encounter Plan of Treatment Not on file documented as of this encounter Visit Diagnoses Not on filedocumented in this encounter Care Teams Survival Specialist Relationship Specialty [place] [id number] [address] PCP - General Family Medicine 02/19/22 07/19/24 [place] [address] [facility] [address] [place] [address] Rheumatology 07/15/17 documented as of this encounter
--- OUTSIDE RECORDS SUMMARY | 2024-08-29 10:15 | XMS_ITS | Encounter Summary ---
Author Organization [facility] Address [address] [place] [address] Phone Care Team Providers Care Shuttle Filler Name Role Phone Gladis Song MD Unavailable Thi Lugo MD Primary Care Provider [phone] Reason for Visit * Reason Onset Date Comments Med Management 06/17/2023 Encounter Details Date Type Department Care Team (Late st Contact Info) Description 06/17/[address] 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 Gender Identity Not on file Sexual Orientation Not on file Occupation Industry Job Start Date Job End Date Retired Not on file Not on file Not on file documented as of this encounter Progress Notes * Judah Duggan MD - 06/17/2023 1:19 PM CDT Chio Orantes should hold Eliquis for 48 hours prior to colonoscopy documented in this encounter Plan of Treatment Not on file documented as of this encounter Visit Diagnoses Not on filedocumented in this encounter Care Teams Shuttle Filler Relationship Specialty [place] [address] [facility] [address] [place] [address] PCP - General Family Medicine 02/19/22 07/19/24 [place] [address] [facility] [address] [place] [address] Rheumatology 07/15/17 documented as of this encounter
--- OUTSIDE RECORDS SUMMARY | 2024-08-29 10:15 | XMS_ITS | Encounter Summary ---
Author Organization [facility] Address [address] [place] [address] Phone Care Team Providers Care Home Energy Consultant Name Role Phone Gladis Song MD Unavailable Thi Lugo MD Primary Care Provider [phone] Reason for Visit * Consultation (Routine) - Closed Specialty Diagnoses / Procedures Referred By Contac t Referred To Contact Cardiology Diagnoses Paroxysmal atrial fibrillation (CMS/HCC) (HCC) Coronary artery disease involving kaw heart without angina pectoris, unspecified vessel or lesion type Judah Duggan MD Phone: tel: fax: [facility] (All Locations) Referral ID Status Reason Start Date Expiration Date V isits Requested Visits Authorized [id number] Closed Specialty Services Required 06/15/2022 07/15/2023 12 12 Encounter Details Date Type Department Care Team (Late st Contact Info) Description 06/21/2023 10:30 AM CDT Office Visit [facility] Cardiology [address] 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 Gender Identity Not on file Sexual Orientation Not on file Occupation Industry Job Start Date Job End Date Retired Not on file Not on file Not on file documented as of this encounter Last Filed Vital Signs Vital Sign Reading Time Taken Comments Blood Pressure 131/73 06/21/2023 10:27 AM CDT Pulse 73 06/21/2023 10:27 AM CDT Temperature - - Respiratory Rate - - Oxygen Saturation 93% 06/21/2023 10: 27 AM CDT Inhaled Oxygen Concentration - - Weight 65.2 kg (143 lb 12.8 oz) 023 10:27 AM CDT Height 147.3 cm (4' 10 ) 06/21/2023 10: 27 AM CDT Body Mass Index 30.05 06/21/2023 10:27 AM CDT documented in this encounter Patient Instructions * Patient Instructions* Dannielle Blackwood RN - 06/21/2023 10:30 AM CDT Decrease lasix to 20mg daily Start jardiance 10mg daily Follow up lab test one week after starting jardiance; fasting is not required documented in this encounter Progress Notes * Mellissa Sears MD - 06/21/2023 10:30 AM CDT Cardiology Clinic Note Patient Name: Chio Orantes : 1950 Date of Service: 06/21/2023 Referring: Dr. Duggan Patient Active Problem List Diagnosis Date Noted Paroxysmal atrial fibrillation (CMS/HCC) (HCC) 05/21/2018 Priority: High Although this is not well documented, she does carry this diagnosis in her chart. 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 We will continue Eliquis. She has had no more strokes or taste and she has been on Eliquis. Other hyperlipidemia 05/21/2018 Priority: High History of arterial ischemic stroke 05/21/2018 Priority: High Acute ischemic stroke in March 2016 and multiple prior TIAs.Also with history of subcortical strokes Mild cognitive impairment 10/05/2022 Benign essential tremor 02/09/2022 Forgetfulness 02/09/2022 Trigger finger of right thumb 03/03/2020 Added automatically from request for surgery [id number] Tachycardia 09/03/2019 Dyspepsia 09/03/2019 Annual physical exam 06/01/2019 Hypertensive heart disease with chronic systolic congestive heart failure ([facility] ([facility]) 06/01/2019 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 ([facility] ([facility]) 12/26/2018 Neuropathy ([facility]) 12/26/2018 CAD (coronary artery disease) 11/21/2018 Mild coronary artery disease 20-30% narrowing in the circumflex and right coronar artery from 05/2018. Heart failure with preserved ejection fraction ([facility] ([facility]) 11/21/2018 LVEDP was 22 from cardiac catheterization in May of 2018 Epigastric abdominal pain 07/03/2018 Benign paroxysmal positional vertigo of left ear 05/13/2018 Obesity with body mass index 30 or greater 05/06/2017 Class: Chronic BMI 28.0-28.9,adult 04/29/2017 Obstructive sleep apnea syndrome 08/01/2016 Class: Chronic Osteoarthritis 07/17/2016 Class: Chronic Restless legs 07/17/2016 Class: Chronic Patent foramen ovale 04/13/2016 Class: Chronic Patent foramen ovale. RoPE score of 2 with low likelihood of contribution to TIAs. Therefore, PFO closure has not been recommended Moderate asthma with acute exacerbation 07/12/2015 Class: Chronic Asthma Late, effect, cerebrovascular disease 06/03/2015 Class: Chronic Borderline diabetes mellitus 06/03/2015 Class: Chronic Systemic lupus erythematosus ([facility] ([facility]) 01/16/2014 Class: Chronic SLE Gastroesophageal reflux disease 01/16/2014 Class: Chronic ESOPHAGEAL REFLUX Osteopenia 01/16/2014 Class: Chronic osteopenia Anxiety state 01/16/2014 Class: Chronic ANXIETY STATE NOS Tremor 01/29/2013 Class: Chronic Tremor HISTORY OF PRESENT ILLNESS: It was a pleasure to see Ms. Orantes at the [facility] in follow-up for the above-mentioned cardiovascular issues. She is a 71-year-old woman with multiple cardiovascular risk factors include hypertension and dyslipidemia known to have atherosclerotic cardiovasc ular disease and a history of prior stroke so has paroxysmal atrial fibrillation for which she is on anticoagulation with Eliquis 5 mg b.i.d. Since last clinic visit, patient has done well from a cardiovascular standpoint. She endorses improvement in lower extremity edema and is currently taking 40 mg of Lasix daily. Functional capacity remains average with dyspnea on [id number] exertion, which has not changed over the past year. She endorses fleeting palpitations especially during stressful situations. 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 She is tolerating her anticoagulation and isadherent without any bleeding complications. Blood pressure is well managed on current therapy. She underwent coronary CTA in 12/2022 or atypical/non-cardiac chest pain which showed mild moderate coronary disease and hemodynamically insignificant lesions on FFR. Today she denies chest pain, shortness of breath, lightheadedness, syncope, orthopnea, PND or lowerextremity edema. REVIEW OF SYSTEMS Review of systems per HPI and otherwise all other review of systems negative. MEDICATIONS Current Outpatient Medications: abatacept/maltose (ORENCIA, WITH MALTOSE, IV), Infuse into a venous catheter every 30 (thirty) days(Patient not taking: Reported on 06/16/2021), Disp: , Rfl: albuterol HFA (PROVENTIL HFA,VENTOLIN HFA,PROAIR HFA) 90 mcg/actuation inhaler, Inhale 90 puffs, Disp: , Rfl: alosetron (LOTRONEX) 1 mg tablet, Take 1 mg by mouth as needed (Patient not taking: Reported on 06/22/2022), Disp: , Rfl: amoxicillin 500 mg capsule, TAKE 1 CAPSULE BY MOUTH EVERY 8 HOURS UNTIL FINISHED (Patient not taking: Reported on 10/05/2022), Disp: , Rfl: apixaban (Eliquis) 5 mg tablet, Take 1 tablet (5 mg total) by mouth 2 (two) times a day, Disp: 180 tablet, Rfl: 3 Arnuity Ellipta 100 mcg/actuation inhaler, INHALE 1 PUFF INTO THE LUNGS DAILY. RINSE AND SPIT AFTER, Disp: , Rfl: ascorbic acid (VITAMIN C) 1,000 mg tablet, Take 1 tablet (1,000 mg total) by mouth daily, Disp: , Rfl: atorvastatin (LIPITOR) 80 mg tablet, TAKE 1 TABLET BY MOUTH EVERY DAY, Disp: 90 tablet, Rfl: 3 azelastine (ASTELIN) 137 mcg (0.1 %) nasal spray, INSTILL 1 SPRAY INTO EACH NOSTRIL DIRECTED 2 TIMES PER DAY (Patient not taking: Reported on 10/05/2022), Disp: , Rfl: bisoprolol (ZEBETA) 5 mg tablet, Take 1 tablet (5 mg total) by mouth daily, Disp: 90 tablet, Rfl: 3 calcium carbonate (OS-LEELA) 1,500 mg (600 mg of elemental calcium) tablet, Take 2,000 mg of elemental calcium by mouth every morning , Disp: , Rfl: calcium carbonate-vitamin D3 1,250mg (500mg elemental) - 5 mcg (200 units) per tablet, Take by mouth daily, Disp: , Rfl: cholecalciferol (VITAMIN D3) 2,000 unit tablet, take 1 by Oral route every day (Patient taking differently: Take by mouth every morning), Disp: 0, Rfl: 0 dexlansoprazole (DEXILANT) 60 mg capsule, Take 60 mg by mouth 2 (two) times a day (Patient not taking: Reported on 10/05/2022), Disp: , Rfl: dicyclomine (BENTYL) 10 mg capsule, TAKE 1 CAPSULE (10 MG TOTAL) BY MOUTH 2 (TWO) TIMES DAILY FOR 30 DAYS. (Patient not taking: Reported on 12/24/2022), Disp: , Rfl: fluticasone propionate (FLOVENT HFA) 110 mcg/actuation inhaler, Inhale 2 puffs 2 (two) times a day Rinse mouth with water after use. Do not swallow., Disp: 2 Inhaler, Rfl: 2 folic acid (FOLVITE) 1 mg tablet, Take 1 tablet (1 mg total) by mouth daily. Take one tab daily (Patient taking differently: Take 1 mg by mouth every morning Take one tab daily), Disp: 90 tablet, Rfl: 0 furosemide (LASIX) 20 mg tablet, TAKE 1 TABLET BY MOUTH EVERY DAY, Disp: 90 tablet, Rfl: 3 gabapentin (NEURONTIN) 100 mg capsule, Take 2 capsules (200 mg total) by mouth, Disp: , Rfl: hydroCHLOROthiazide (HYDRODIURIL) 25 mg tablet, TAKE 1 TABLET BY MOUTH EVERY DAY, Disp: 90 tablet, Rfl: 3 hydroxychloroquine (PLAQUENIL) 200 mg tablet, Take 1 tablet (200 mg total) by mouth 2 (two) times aday. (Patient not taking: Reported on 10/05/2022), Disp: 180 tablet, Rfl: 0 isosorbide mononitrate ER (IMDUR) 30 mg 24 hr tablet, Take 1 tablet (30 mg total) by mouth daily, Disp: 30 tablet, Rfl: 11 methotrexate 2.5 mg tablet, TAKE 6 TABLETS BY MOUTH ONCE A WEEK, Disp: , Rfl: methscopolamine (PAMINE FORTE) 5 mg tablet, Take 5 mg by mouth daily (Patient not taking: Reported on 10/05/2022), Disp: , Rfl: methylPREDNISolone (MEDROL DOSEPACK) 4 mg Dosepack, Take 1 tablet (4 mg total) by mouth (Patient not taking: Reported on 10/05/2022), Disp: , Rfl: montelukast (SINGULAIR) 10 mg tablet, TAKE 1 TABLET BY MOUTH EVERY DAY AT NIGHT, Disp: 90 tablet, Rfl: 3 nitroglycerin (NITROSTAT) 0.4 mg SL tablet, May repeat dose every 5 minutes for up to 3 doses total., Disp: 25 tablet, Rfl: 3 ondansetron ODT (ZOFRAN-ODT) 4 mg disintegrating tablet, , Disp: , Rfl: pantoprazole DR (PROTONIX) 40 mg EC tablet, Take 1 tablet (40 mg total) by mouth 2 (two) times a day, Disp: , Rfl: PARoxetine (PAXIL) 20 mg tablet, TAKE 1/2 TABLET BY MOUTH EVERY DAY IN THE MORNING (Patient taking differently: Take 1 tablet (20 mg total) by mouth every morning), Disp: 15 tablet, Rfl: 1 potassium chloride ER (Klor-Con M20) 20 mEq CR tablet, TAKE 2 TABLETS EVERY MORNING AND 2 TABLETS EVERY EVENING, Disp: 360 tablet, Rfl: 3 sucralfate (CARAFATE) 1 gram tablet, TAKE 1 TABLET BY MOUTH 4 TIMES DAILY BEFORE MEALS AND NIGHTLY.(Patient not taking: Reported on 10/05/2022), Disp: , Rfl: PHYSICAL EXAM: LMP (LMP Unknown) General: Well appearing, No pain or distress, well nourished Respiratory: Clear to ausculation bilaterally; moving air well Cardiovascular: normal rate, regular rhythm, no M/G/R, JVD not elevated, no GRICEL Gastrointestinal: soft, non-tender abdomen Extremities: no cyanosis or clubbing Psychiatric: normal affect, normal mood Neurologic: awake/alert, no focal deficits DATA: Resulted in the Past 12 Months 08/30/22 1127 HGB 13.4 HCT 42.5 WBC 5.0 LABPLAT 243 Resulted in the Past 12 Months 01/03/23 0941 08/30/22 1127 SODIUM -- 143 POTASSIUM -- 4.3 CHLORIDE -- 104 CO2 -- 32 ANIONGAP -- 7 BUNSER -- 18 CREATININE 0.7 0.83 CALCIUM -- 9.8 Resulted in the Past 12 Months 08/30/22 1127 ALBUMIN 4.4 ALKPHOS 85 AST 31 ALT 27 BILITOT 0.6 No results for input(s): APTT , INR in the last 8736 hours. Resulted in the Past 12 Months 08/30/22 1127 TSH 2.04 We have reviewed all available labs and imaging since her last visit. Transthoracic echocardiogram (01/18/2021) LV cavity size is normal. Normal LV wall thickness/mass. Normal LVSF. LVEF 66%. Normal global LV Myocardial longitudinal function and LV strain pattern. Altered LV relaxation. Normal RV cavity size. Mild AR. Mild MR, TR. LA is normal. Normal Inferior vena cava. Color Doppler suggests small secundum ASD (v. stretched PFO) with left to right color Doppler. Normal est PASP. Aortic root 3.2 cm. Cardiac catheterization (05/26/2018) Relatively mild coronary artery disease 20-30% narrowing in the circumflex and right coronary artery with markedly elevated LVEDP. Coronary CTA with FFR 12/2022 1. Three-vessel calcified atherosclerotic disease resulting in up to 40% stenosis in the mid left anterior descending coronary artery. Calcium score 355 2. There is a 1.1 cm nodule in the left breast. Recommend correlation with mammography 3. Tree-in-bud nodules in the right middle lobe may represent an underlying bronchial infection, including atypical mycobacterial Infection No hemodynamically significant lesions. No lesions with FFR CT 0.8. The maximum anatomical stenosis is located in the mid left anterior descending coronary artery with lesion specific abnormal FFR CT of 0.88. There is a gradual change in FFR from lesion to distal vessel. ASSESSMENT AND PLAN This is a 72 y.o. female who presents to Cardiology clinic in follow-up for the following issues: Paroxysmal atrial fibrillation (CMS/HCC) In sinus rhythm today. Minimal from this at baseline. Tolerating anticoagulation. CHADS-VASc 3 (F, Age, HF). Continue Eliquis 5 mg b.i.d. She is planned for a screening colonoscopy in upcoming weeks;with regards to anticoagulation, recommend holding 48 hours prior to procedure (no jazmine- operative bridging required), then resume as soon as considered safe from a gastroenterology perspective. Other hyperlipidemia Her most recent lipid panel was 12/2022, LDL cholesterol was 88. Will repeat lipid panel next visit.Continue atorvastatin 80 mg. CAD (coronary artery disease) She has nonobstructive coronary artery disease and has been experiencing noncardiac chest pain. Coronary CTA FFR in 12/2022 with mild disease and hemodynamically insignificant lesions. Continue Lipitor 80 mg q.h.s. as well as bisoprolol 5 mg daily. Heart failure with preserved ejection fraction (CMS/HCC) Her most recent echocardiogram from 01/18/2021 normal EF of 66% as well as impaired diastolic function. Today, she appears euvolemic on exam with class 2 symptoms. We will start Empagliflozin, and reduce Furosemide to 20 mg daily. We will obtain a BMP today. DISPOSITION We will plan to see Ms. Orantes back in clinic in 6 months time or sooner if needed. Mellissa Sears MD Fellow, Cardiology 10:23 AM Cosigned by Judah Duggan MD at 06/21/2023 12:04 PM CDT Associated attestation - Judah Duggan MD - 06/21/2023 12:04 PM CDT I have seen and examined the patient. I agree with the findings and plan of care as documented in the resident/fellow's note. documented in this encounter Plan of Treatment Not on file documented as of this encounter Results * Basic metabolic panel (06/21/2023 11:06 AM CDT) Pathologist [facility] [place] Glucose 86 64 - 99 mg/dL [facility] [...] 6 AM CDT 06/21/2023 12:04 PM CDT us Judah Duggan MD LAB BLOOD ORDERABLES Final Res ult [facility] documented in this encounter Visit Diagnoses Diagnosis Paroxysmal atrial fibrillation (CMS/HCC) (HCC)- Primary Atrial fibrillation Coronary artery disease involving kaw heart without angina pectoris, unspecified vessel or lesion type Other hyperlipidemia Chronic heart failure with preserved ejection fraction (CMS/HCC) (HCC) documented in this encounter Historical Medications * This list may reflect changes made after this encounter. Breo Ellipta 100-25 mcg/dose diskus inhaler INHALE 1 PUFF INTO THE LUNGS DAILY. RINSE AND SPIT AFTER USE 03/14/2023 added in this encounter Care Teams Home Energy Consultant Relationship Specialty [place] [id number] [address] PCP - General Family Medicine 02/19/22 07/19/24 [place] [id number] [address] Rheumatology 07/15/17 documented as of this encounter
--- OUTSIDE RECORDS SUMMARY | 2024-08-29 10:15 | XMS_ITS | Encounter Summary ---
Author Organization [facility] Address [address] [place] [address] Phone Care Team Providers Care Axle Inspector Name Role Phone Gladis Song MD Unavailable Thi Lugo MD Primary Care Provider [phone] Reason for Visit * Consultation (Routine) - Authorized Specialty Diagnoses / Procedures Referred By Contac t Referred To Contact Cardiology Diagnoses Paroxysmal atrial fibrillation (CMS/HCC) (HCC) Coronary artery disease involving cherokee heart without angina pectoris, unspecified vessel or lesion type Chronic heart failure with preserved ejection fraction (CMS/HCC) (HCC) Judah Duggan MD Phone: tel: fax: [facility] (All Locations) Referral ID Status Reason Start Date Expiration Date Visits Requested Visits Authorized [id number] Authorized Specialty Services Required 01/10/2024 02/11/2025 12 12 Encounter Details Date Type Department Care Team (Late st Contact Info) Description 01/10/2024 11:00 AM CDT Office Visit [facility] Cardiology [address] 8th [place] [address] [place] [address] Judah Duggan MD [address] [place] [address] Paroxysmal atrial fibrillation (CMS/HCC) (HCC) (Primary Dx); Coronary artery disease involving cherokee heart without angina pectoris, unspecified vessel or lesion type; Chronic heart failure with preserved ejection fraction (CMS/HCC) (HCC); Other hyperlipidemia Social History Tobacco Use Types Packs/Day Years [...] on file 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 Gender Identity Not on file Sexual Orientation Not on file Occupation Industry Job Start Date Job End Date Retired Not on file Not on file Not on file documented as of this encounter Last Filed Vital Signs Vital Sign Reading Time Taken Comments Blood Pressure 95/60 01/10/2024 10:56 AM CDT Pulse 79 01/10/2024 10:56 AM CDT Temperature - - Respiratory Rate - - Oxygen Saturation 94% 01/10/2024 10:56 AM CDT Inhaled Oxygen Concentration - - Weight 63.5 kg (140 lb) 01/10/2024 10:56 AM CDT Height 152.4 cm (5') 01/10/2024 10:56 AM CDT Body Mass Index 27.34 01/10/2024 10:56 AM CDT documented in this encounter Progress Notes * Cy Aaron MD - 01/10/2024 11:00 AM CDT Cardiology Clinic Note Patient Name: Chio Orantes : 1950 Date of Service: 01/10/2024 Referring: Dr. Lugo Patient Active Problem List Diagnosis Date Noted Paroxysmal atrial fibrillation (CMS/[facility]) (HCC) 05/21/2018 Priority: High Although this is [...] 03/03/2020 Added automatically from request for surgery [id number] Tachycardia 09/03/2019 Dyspepsia 09/03/2019 Annual physical exam 06/01/2019 Hypertensive heart disease with chronic systolic congestive heart failure ([facility] ([facility]) 06/01/2019 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 ([facility] ([facility]) 12/26/2018 Neuropathy ([facility] 12/26/2018 CAD (coronary artery disease) 11/21/2018 Mild coronary artery disease 20-30% narrowing in the circumflex and right coronar artery from 05/2018. Heart failure with preserved ejection fraction ([facility] ([facility]) 11/21/2018 LVEDP was 22 from cardiac [...] mellitus 06/03/2015 Class: Chronic Systemic lupus erythematosus ([facility]) ([facility]) 01/16/2014 Class: Chronic SLE Gastroesophageal reflux disease 01/16/2014 Class: Chronic ESOPHAGEAL REFLUX Osteopenia 01/16/2014 Class: Chronic osteopenia Anxiety state 01/16/2014 Class: Chronic ANXIETY STATE NOS Tremor 01/29/2013 Class: Chronic Tremor HISTORY OF PRESENT ILLNESS: It was a pleasure to see Ms. Orantes at the [facility] in follow-up for the above-mentioned cardiovascular issues. She is a 73-year-old woman with multiple cardiovascular risk factors including hypertension and dyslipidemia known to have atherosclerotic cardiova scular disease and a history of multiple prior strokes. She has a possible history of paroxysmal atrial fibrillation for which she was anticoagulated for many years, without any recurrence of strokes. Neurology recently stopped her apixaban, as we do not have well documented evidence of atrial fibrillation. Since last clinic visit, patient has done well from a cardiovascular standpoint. She endorses improvement in lower extremity edema and is currently taking 40 mg of Lasix daily. She underwent coronaryCTA in 12/2022 for atypical/non-cardiac chest pain which showed mild moderate coronary disease and hemodynamically insignificant lesions on FFR. Today she denies chest pain, shortness of breath, lightheadedness, syncope, orthopnea, PND or lowerextremity edema. REVIEW OF SYSTEMS Review of systems per HPI and otherwise all other review of systems negative. MEDICATIONS Current Outpatient Medications: albuterol HFA (PROVENTIL HFA,VENTOLIN HFA,PROAIR HFA) 90 mcg/actuation inhaler, Inhale 90 puffs, Disp: , Rfl: ascorbic acid (VITAMIN C) 1,000 mg tablet, Take 1 tablet (1,000 mg total) by mouth daily, Disp: , Rfl: aspirin 81 mg enteric coated tablet, Take 1 tablet (81 mg total) by mouth daily, Disp: , Rfl: atorvastatin (LIPITOR) 80 mg tablet, Take 1 tablet (80 mg total) by mouth daily, Disp: , Rfl: bisoprolol (ZEBETA) 5 mg tablet, Take 1 tablet (5 mg total) by mouth daily, Disp: 30 tablet, Rfl: 6 Breo Ellipta 100-25 mcg/dose diskus inhaler, INHALE 1 PUFF INTO THE LUNGS DAILY. RINSE AND SPIT AFTER USE, Disp: , Rfl: brimonidine (ALPHAGAN) 0.2 % ophthalmic solution, INSTILL 1 DROP INTO BOTH EYES 3 TIMES A DAY, Disp: , Rfl: calcium carbonate (OS-LEELA) 1,500 mg (600 mg [...] mouth every morning), Disp: 0, Rfl: 0 dicyclomine (BENTYL) 10 mg capsule, , Disp: , Rfl: empagliflozin (JARDIANCE) 10 mg tablet, Take 1 tablet (10 mg total) by mouth daily, Disp: 30 tablet, Rfl: 6 fluticasone propionate (FLOVENT HFA) 110 mcg/actuation inhaler, Inhale 2 puffs 2 (two) times a day Rinse mouth with water after use. Do not swallow., Disp: 2 Inhaler, Rfl: 2 furosemide (LASIX) 20 mg tablet, TAKE 1 TABLET BY MOUTH EVERY DAY, Disp: 90 tablet, Rfl: 3 gabapentin (NEURONTIN) 100 mg capsule, Take 2 capsules (200 mg total) by mouth, Disp: , Rfl: hydroCHLOROthiazide (HYDRODIURIL) 25 mg tablet, TAKE 1 TABLET BY MOUTH EVERY DAY, Disp: 90 tablet, Rfl: 3 isosorbide mononitrate ER (IMDUR) 30 mg 24 hr tablet, TAKE 1 TABLET BY MOUTH EVERY DAY, Disp: 90 tablet, Rfl: 0 methotrexate 2.5 mg tablet, TAKE 6 TABLETS BY MOUTH ONCE A WEEK, Disp: , Rfl: montelukast (SINGULAIR) 10 mg tablet, TAKE 1 TABLET BY MOUTH EVERY DAY AT NIGHT, Disp: 90 tablet, Rfl: 3 nitroglycerin (NITROSTAT) 0.4 mg SL tablet, May repeat dose every 5 minutes for up to 3 doses total., Disp: 25 tablet, Rfl: [address] (PROTONIX) 40 mg EC tablet, [...] Rfl: 3 sucralfate (CARAFATE) 1 gram tablet, , Disp: , Rfl: triamcinolone (KENALOG) 0.1 % cream, Apply topically 2 (two) times a day APPLY TO AFFECTED AREA, Disp: , Rfl: Eliquis 5 mg tablet, TAKE 1 TABLET BY MOUTH TWICE A DAY (Patient not taking: Reported on 01/10/2024), Disp: 180 tablet, Rfl: 0 folic acid (FOLVITE) 1 mg tablet, Take 1 tablet (1 mg total) by mouth daily. Take one tab daily (Patient taking differently: Take 1 tablet (1 mg total) by mouth every morning Take one tab daily), Disp: 90 tablet, Rfl: 0 pregabalin (LYRICA) 75 mg capsule, Take 1 capsule (75 mg total) by mouth 2 (two) times a day, Disp:60 capsule, Rfl: 2 PHYSICAL EXAM: BP 95/60 (BP Location: Left arm, Patient Position: Sitting) Pulse 79 Ht 152.4 cm (5') Wt 63.5 kg (140 lb) LMP (LMP Unknown) SpO2 94% BMI 27.34 kg/m?? Physical Exam: General appearance: NAD, vitals reviewed. Head: Atraumatic, normocephalic. Eyes: EOMI, PERRL, non-icteric. Lungs: CTAB, normal effort on room air. Heart: Normal rate, regular rhythm, no m/r/g. Abdomen: Soft, NT, ND; bowel sounds normal. Extremities: Extremities warm and well-perfused, equal pulses. No edema. Skin: Warm and dry. Neurologic: No abnormal movements, non-focal exam. Psychiatric: Normal mood and affect. DATA: No results for input(s): HGB , HCT , WBC , LABPLAT in the last 8736 hours. Resulted in the Past 12 Months 06/21/23 1106 CO2 28 CREATININE 0.76 CALCIUM 9.5 No results for input(s): PROTEIN , ALBUMIN , ALKPHOS , AST , ALT , BILITOT , BILIDIR in thelast 8736 hours. No results for input(s): APTT , INR in the last 8736 hours. No results for input(s): TROPONINT , TROPONINI , NPROBNP , LDH , TSH in the last 8736 hours. We have reviewed all available labs and [...] vessel. ASSESSMENT AND PLAN This is a 73 y.o. female who presents to Cardiology clinic in follow-up for the following issues: Paroxysmal atrial fibrillation, multiple prior strokes In sinus rhythm today. [id number] is 4 (F, age, HF). She is on bisoprolol 5 mg daily.Although herstrokes are lacunar on imaging, she has a history of afib, we would recommend resuming anticoagulation with apixaban 5 mg BID, and stopping ASA 8 mg daily, which she has agreed to. Dyslipidemia Her most recent lipid panel was 12/2022, LDL cholesterol was 88. Continue atorvastatin 80 mg.We willcheck a lipid panel today. CAD (coronary artery disease) She has nonobstructive coronary artery disease and had previously been experiencing noncardiac chest pain. Coronary CTA FFR in 12/2022 with mild disease and hemodynamically insignificant lesions. Continue atorvastatin 80 mg daily as well as bisoprolol 5 mg daily, Imdur 30 mg daily Heart failure with preserved ejection fraction (CMS/HCC) Her most recent echocardiogram from 01/18/2021 normal EF of 66% as well as impaired diastolic function. Today, she appears euvolemic on exam with class 2 symptoms. We will contiue empagliflozin and furosemide to 20 mg daily. We will obtain a BMP today. DISPOSITION We will plan to see Ms. Orantes back in clinic in 6 months time or sooner if needed. Cy Aaron MD Fellow, Interventional Cardiology 11:12 AM Cosigned by Judah Duggan MD at 01/10/2024 11:55 AM CDT Associated attestation - Judah Duggan MD - 01/10/2024 11:55 AM CDT I have seen and examined the patient. I agree with the findings and plan of care as documented in the resident/fellow's note. documented in this encounter Plan of Treatment Not on file documented as of this encounter Results * Lipid panel (01/10/2024 11:45 AM CDT) Cholesterol 125 30 - 199 mg/dL Comment: Interpretive Data Ages < or = 19 years ??Acceptable: ? <170 mg/dL ??Borderline high: ??170-199 mg/dL ??High: ? >or= 200 mg/dL Ages > or = 20 years ??Desirable: ?<200 mg/dL ??Borderline high: ??200-239 mg/dL ??High: ? >or= 240 mg/dL Literature References: 1. Expert Panel on Integrated Guidelines for Cardiovascular Health and Risk Reduction in Children and Adolescents. Pediatrics 2011;128:S213 2. NCEP Expert Panel. Circulation 2004;110:227 Current Interpretive Data was last revised on 2018. Triglycerides 54 <=149 mg/dL [facility] Comment: Interpretive Data Ages < or = 9 years ??Acceptable: ? <75 mg/dL ??Borderline high: ??75-99 mg/dL ??High: ? >or= 100 mg/dL Ages 10 to 20 years ??Acceptable: ? <90 mg/dL ??Borderline high: ??90-129 mg/dL ??High: ? >or= 130 mg/dL Ages > or = 20 years ??Desirable: ?<150 mg/dL ??Borderline high: ??150-199 mg/dL ??High: ? 200-499 mg/dL ?Very high: ?? >or= 499 mg/dL Literature References: 1. Expert Panel on Integrated Guidelines for Cardiovascular Health and Risk Reduction in Children and Adolescents. Pediatrics 2011;128:S213 2. NCEP Expert Panel. Circulation 2004;110:227 Current Interpretive Data was last revised on 2018. HDL 54 >=40 mg/dL [facility] Comment: Interpretive Data Ages < or = 19 years ??Acceptable: ? >45 mg/dL ??Borderline low: ?? 40-45 mg/dL ??Low: ? <40 mg/dL Ages > or = 20 years ??Desirable: ?>or= 60 mg/dL ??Low: ? <40 mg/dL Literature References: 1. Expert Panel on Integrated Guidelines for Cardiovascular Health and Risk Reduction in Children and Adolescents. Pediatrics 2011;128:S213 2. NCEP Expert Panel. Circulation 2004;110:227 Current Interpretive Data was last revised on 2018. LDL, calculated 60 <=129 mg/dL [facility] Comment: Interpretive Data Ages < or = 19 years ??Acceptable: ? <110 mg/dL ??Borderline high: ??110-129 mg/dL ??High: ?>or= 130 mg/dL Ages > or = 20 years ??Optimal: ? <100 mg/dL ??Near optimal: ?100-129 mg/dL ??Borderline high: ?? 130-159 mg/dL ??High: ?>160 mg/dL Literature References: 1. Expert Panel on Integrated Guidelines for Cardiovascular Health and Risk Reduction in Children and Adolescents. Pediatrics 2011;128:S213 2. NCEP Expert Panel. Circulation 2004;110:227 Current Interpretive Data was last revised on 2018. Non-HDL Cholesterol 71 mg/dL [facility] Comment: Interpretive Data Ages < or = 19 years ??Acceptable: ?<120 mg/dL ??Borderline high: ??120-144 mg/dL ??High: ?>145 mg/dL Ages > or = 20 years ??When triglycerides are >200 mg/dL, Non-HDL cholesterol is a secondary target of ? therapy with treatment goals that are 30 mg/dL greater than the LDL cholesterol target. ? Literature References: 1. Expert Panel on Integrated Guidelines for Cardiovascular Health and Risk Reduction in Children and Adolescents. Pediatrics 2011;128:S213 2. NCEP Expert Panel. Circulation 2004;110:227 Current Interpretive Data was last revised on 2018. Chol/HDL ratio 2 [facility] Blood 01/10/2024 11:4 5 AM CDT 01/10/2024 11:52 AM CDT Judah Duggan MD LAB BLOOD ORDERABLES Final Res ult [facility] Department [place] [address] documented in this encounter Visit Diagnoses Diagnosis Paroxysmal atrial fibrillation (CMS/HCC) (HCC)- Primary Atrial fibrillation Coronary artery disease involving cherokee heart without angina pectoris, unspecified vessel or lesion type Chronic heart failure with preserved ejection fraction (CMS/HCC) (HCC) Other hyperlipidemia documented in this encounter Historical Medications * This list may reflect changes made after this encounter. aspirin 81 mg enteric coated tablet Take 1 tablet (81 mg total) by mouth daily 01/10/2024 added in this encounter Orders Outpatient Referral Count Last Ordered Date Fir st Ordered Date AMB REFERRAL TO CARDIOLOGY 1 01/13/2024 documented in this encounter Care Teams Axle Inspector Relationship Specialty [place] [address] [facility] [address] [place] [address] PCP - General Family Medicine 02/19/22 07/19/24 [place] [address] [facility] [address] [place] [address] Rheumatology 07/15/17 documented as of this encounter
--- OUTSIDE RECORDS SUMMARY | 2024-08-29 10:15 | XMS_ITS | Encounter Summary ---
Author Organization [facility] Address [address] [place] [address] Phone Care Team Providers Care Press Catcher Name Role Phone Gladis Song MD Unavailable Thi Lugo MD Primary Care Provider [phone] Encounter Details Date Type Department Care Team (Late st Contact Info) Description 07/05/2023 Telephone [facility] Cardiology [address] [facility] [address] 8th [place] [address] [place] [address] Judah Duggan MD [address] [place] [address] Social History Tobacco Use Types [...] on file 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 No med change Please check bmp in 1 week ----- Message ----- From: Dannielle Blackwood RN Sent: 07/05/2023 10:52 AM CDT To: Judah Duggan MD ----- Message ----- From: Katherine Sal MBA Sent: 07/05/2023 10:46 AM CDT To: Preet Duggan [facility] Labs documented in this encounter Plan of Treatment Not on file documented as of this encounter Visit Diagnoses Not on filedocumented in this encounter Care Teams Press Catcher Relationship Specialty [place] [address] [address] PCP - General Family Medicine 02/19/22 07/19/24 [place] [address] [address] Rheumatology 07/15/17 documented as of this encounter
--- OUTSIDE RECORDS SUMMARY | 2024-08-29 10:15 | XMS_ITS | Encounter Summary ---
Author Organization [facility] Address [address] [place] [address] Care Team Providers Care Pastry Supervisor Name Role Phone Gladis Song MD Unavailable Thi Lugo MD Primary Care Provider [phone] Encounter Details Date Type Department Care Team (Late st Contact Info) Description 01/10/2024 12:05 PM CDT Lab [facility] Advanced Medicine [facility] Advanced Medicine (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 Triglycerides 54 <=149 mg/dL [facility] Comment: Interpretive Data Ages < or = [...] revised on 2018. HDL 54 >=40 mg/dL [facility] Comment: Interpretive Data Ages < or = [...] on 2018. LDL, calculated 60 <=129 mg/dL [facility] Comment: Interpretive Data Ages < or = [...] revised on 2018. Non-HDL Cholesterol 71 mg/dL [facility] Comment: Interpretive Data Ages < or = [...] last revised on 2018. Chol/HDL ratio 2 [facility] Blood 01/10/2024 11:4 5 AM CDT 01/10/2024 11:52 AM CDT us Judah Duggan MD LAB BLOOD ORDERABLES Final Res ult [facility] [address] [facility] Department [place] [address] documented in this encounter Visit Diagnoses Diagnosis Other hyperlipidemia documented in this encounter Care Teams Pastry Supervisor Relationship Specialty [place] [address] [facility] [address] [place] [address] PCP - General Family Medicine 02/19/22 07/19/24 [place] [address] [facility] [address] [place] [address] Rheumatology 07/15/17 documented as of this encounter
--- OUTSIDE RECORDS SUMMARY | 2024-08-29 10:15 | XMS_ITS | Encounter Summary ---
Author Organization [facility] Address [address] [facility] [address] [place] [address] Phone Care Team Providers Care Watch Engineer Name Role Phone Gladis Song MD Unavailable Thi Lugo MD Primary Care Provider [phone] Reason for Visit * Consultation (Routine) - Closed Specialty Diagnoses / Procedures Referred By Valerie florian Referred To Contact Neurology Diagnoses History of arterial ischemic stroke Jluis Gautam MD PhD [address] [place] [address] Phone: tel: fax: [facility] (All Locations) Referral ID Status Reason Start Date Expiration Date V isits Requested Visits Authorized [id number] Closed Specialty Services Required 10/24/2023 11/22/2024 1 1 Encounter Details Date Type Department Care Team (Late st Contact Info) Description 12/06/2023 10:00 AM CDT Office Visit [facility] Stroke [address] [facility] [address] [place] [id number] Jluis Gautam MD PhD [address] [place] [address] Tremor (Primary Dx); Neuropathy (CMS/HCC); History of arterial ischemic stroke Social History Tobacco Use Types Packs/Day Years [...] on file 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 Gender Identity Not on file Sexual Orientation Not on file Occupation Industry Job Start Date Job End Date Retired Not on file Not on file Not on file documented as of this encounter Last Filed Vital Signs Vital Sign Reading Time Taken Comments Blood Pressure 104/71 12/06/2023 9:42 AM CDT Pulse 85 12/06/2023 9:42 AM CDT Temperature - - Respiratory Rate - - Oxygen Saturation - - Inhaled Oxygen Concentration - - Weight 63.5 kg (140 lb) 12/06/2023 9:42 AM CDT Height 152.4 cm (5') 12/06/2023 9:42 AM CDT Body Mass Index 27.34 12/06/2023 9:42 AM CDT documented in this encounter Progress Notes * Jluis Gautam MD PhD - 12/06/2023 10:00 AM CDT Patient Name: MIRELLA ORANTES Medical Record Number (MRN): [id number] Date of (): 1950 Encounter Date: 12/06/2023 Chief Complaint Mirella Orantes is a 73 y.o. year old right handed woman with PMH of migraines with aura, transient global amnesia, SLE, TGA (x2), GERD, OA, and MDD who is here for follow-up of hospitalization for left subcortical left stroke (2014). HPI Since the last visit on 10/05/22, she has done well without any new signs or symptoms suggestive of stroke or TIA. She denies any major illnesses or hospitalizations. She continues on Eliquis despite the absence of atrial fibrillation on cardiac event monitor. She was seen in follow-up by So Alcaraz for her memory loss and was found to have normal neurobehavioral testing. A follow-up was scheduled in one year. She notes that she has numbness in both of her feet--they feel like she is walking on lumps. She Was seen by Dr. Julianna Mirza and underwent an EMG/NCV. 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 Allergies Allergen Reactions Latex Rash Sulfa (Sulfonamide Antibiotics) Swelling Levofloxacin Headache and Nausea only Nitrofurantoin Headache Current Outpatient Medications on File Prior to Visit Medication Sig Dispense Refill albuterol HFA (PROVENTIL HFA,VENTOLIN HFA,PROAIR HFA) 90 mcg/actuation inhaler Inhale 90 puffs ascorbic acid (VITAMIN C) 1,000 mg tablet Take 1 tablet (1,000 mg total) by mouth daily atorvastatin (LIPITOR) 80 mg tablet Take 1 tablet (80 mg total) by mouth daily Breo Ellipta 100-25 mcg/dose diskus inhaler INHALE [...] TWICE A DAY 180 tablet 0 empagliflozin (JARDIANCE) 10 mg tablet Take 1 tablet (10 mg total) by mouth daily 30 tablet 6 fluticasone propionate (FLOVENT HFA) 110 mcg/actuation inhaler [...] facility-administered medications on file prior to visit. Patient Active Problem List Diagnosis Systemic lupus erythematosus ([facility] ([facility]) Gastroesophageal reflux disease Tremor Osteopenia Moderate asthma with acute exacerbation Anxiety state BMI 28.0-28.9,adult Late, effect, cerebrovascular disease Borderline diabetes mellitus Osteoarthritis Restless legs Obstructive sleep apnea syndrome Obesity with body mass index 30 or greater Patent foramen ovale Benign paroxysmal positional vertigo of left ear Paroxysmal atrial fibrillation ([facility]) ([facility]) Other hyperlipidemia History of arterial ischemic stroke Epigastric abdominal pain CAD (coronary artery disease) Heart failure with preserved ejection fraction ([facility]) ([facility]) 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 ([facility]) ([facility]) Neuropathy ([facility]) Annual physical exam Hypertensive heart disease with chronic systolic congestive heart failure ([facility]) ([facility]) Tachycardia Dyspepsia Trigger finger of right thumb Benign essential tremor Forgetfulness Mild cognitive impairment Past Medical History: Diagnosis Date Asthma CAD (coronary artery disease) Cerebrovascular accident (CVA) ([facility]) Stroke CHF (congestive heart failure) ([facility]) (HCC) GERD (gastroesophageal reflux disease) Heart murmur HX OTHER MEDICAL 2009 TIA / transient global amnesia Hyperlipidemia Hypertension Irritable bowel syndrome (IBS) Lupus (CMS/HCC) (HCC) PFO (patent foramen ovale) Sleep apnea TIA (transient ischemic attack) Social History Socioeconomic History Marital status: Spouse name: Not on file Number of children: Not on file Years of education: Not on file Highest education level: Not on file Occupational History Occupation: Retired Tobacco Use Smoking status: Never Smoker Smokeless tobacco: Never Used Vaping Use Vaping Use: Never used Substance and Sexual Activity Alcohol use: Yes Comment: 1 drink every two months Drug use: No Sexual activity: Not on file Other Topics Concern Not on file Social History Narrative Not on file Social Determinants of Health Financial Resource Strain: Not on file Food Insecurity: Not on file Transportation Needs: Not on file Physical Activity: Not on file Stress: Not on file Social Connections: Not on file Intimate Partner Violence: Not on file Housing Stability: Not on file Vital Signs Vitals: 12/06/23 0942 BP: 104/71 BP Location: Left arm Patient Position: Sitting Pulse: 85 Weight: 63.5 kg (140 lb) Height: 152.4 cm (5') Review of Systems Cardiovascular: denied chest pain and/or shortness of breath. Pulmonary: denied cough and/or hemoptysis. GI: denied constipation, abdominal pain, or diarrhea. : denied dysuria; Skin: denied rash and/or ulcers. Musculoskeletal: denied joint pain. Psychiatric: denied neurovegetative symptoms. A complete review of systems was otherwise negative except as noted in the HPI. Physical Exam HEENT: normocephalic/atraumatic, throat was clear; EAR exam: tympanic membranes appeared clear, nonerythematous, but right TM appeared full. Skin: normal Pulmonary: CTA Cardiovascular: CTA Abdominal: soft non-tender, no palpable masses. Bowel sounds were normal Extremities: without deformities, distal pulsations were symmetrical NEUROLOGICAL EXAMINATION: Higher Mental Function: Orientation: alert and oriented to time, place and person Attention & Concentration: unable to recall any presidents. Poor serial 7's (can't get past 93). Memory: 3/3 immediate recall; 1/3 at 5 min; 2/3 with prompting Language: comprehension, naming, repetition, and fluency were intact, no paraphasic errors or perseveration Affect: full range Mood: good Cranial Nerves Examination: Pupils: PERRLA Visual madrigal: full to confrontation Fundoscipy: sharp margins, no Hollen Milton plaques EOM (III, IV, ): intact, no nystagmus V: V1-V3 intact to light touch, pinprick and temperature bilaterally, corneal reflex present bilaterally, maseter strong bilaterally VII: face symmetric bilaterally. VIII: can hear finger rub from 2 feet bilaterally XI: head/neck/shoulder strong IX, X, XII: no dysarthria, positive gag and cough, palate symmetric, tongue midline Motor: Tone: normal no fasciculation. low frequency tremor in right hand, exacerbated when walking. Bulk: normal no atrophy Strength: Right Upper Extremity: 5-/5. Right Lower Extremity: 5-/5 Left Upper Extremity: full strength throughout Left Lower Extremity: full strength throughout Reflexes: Symmetrical bilaterally, Babinski was absent bilaterally Sensory: Primary Sensory Modality: reduced to LT and vibration below knee bilaterally Coordination: Finger to nose: intact bilaterally Heel to tena: intact bilaterally Rapid alternate movement: slowed on right upper exremity Romberg: negative Gait: Normal gait and station; normal tandem gait. Assessment/Plan Diagnosis Plan 1. Tremor 2. Neuropathy (CMS/HCC) Ambulatory referral to Neurology 3. History of arterial ischemic stroke Ambulatory referral to Neurology 68 year old female with HTN, HLD, who is has had recurrent subcortical infarcts. She is currently on Eliquis, per Dr. Duggan for suspicion of atrial fibrillation. She has no evidence of paroxysmal a-fib (30-day event monitor from 2015 and more recently). She Plan 1. Stroke prevention - she has had recurrent subcortical strokes, likely due to aterioroloscleroticrisk factors. --Continue BP control --Continue treatment with high dose atorvastatin. --I asked her to discontiue the Eliquis and start a bASA. Because her stroke in 2015 was a small vessel stroke, the apporpriate stroke prevention therapy is bASA. 2. BP is under good control. I asked her to review BP meds with PCP to see if any might be discontinued. 3. She has a mild low frequency tremor of right hand--will refer to movement disorders clinic for evaluation. 4. 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 Mirza 5. Forgetfulness--[place] [facility]. Follow-up with me in 1 year. Return in about 1 year (around 12/05/2024). Future Appointments Date Time Provider Department Center 01/10/2024 11:00 AM Judah Duggan MD [facility] 8B Cardiology 01/20/2024 1:00 PM Sabine Gross PA [facility] 6C NL 08/20/2024 12:00 PM Julianna Mirza MD [facility] 6C NL 09/23/2024 1:00 PM So Alcaraz PA [id number] [place] NL 12/18/2024 10:30 AM Jluis Gautam MD PhD STR [facility] 6C NL I spent 5 minutes pre-charting, 25 min [id number] with patient, and 10 min post-charting. Total 40 min. Jluis Gautam M.D., Ph.D. Chris Parsons Professor of Neurology Head, Cerebrovascular Disease Section Co-Director, Stroke & Cerebrovascular Section [facility] documented in this encounter Plan of Treatment Not on file documented as of this encounter Visit Diagnoses Diagnosis Tremor- Primary Abnormal involuntary movements Neuropathy (CMS/HCC) Mononeuritis of unspecified site History of arterial ischemic stroke Transient ischemic attack (TIA), and cerebral infarction without residual deficits documented in this encounter Historical Medications * This list may reflect changes made after this encounter. brimonidine (ALPHAGAN) 0.2 % ophthalmic solution INSTILL 1 DROP INTO BOTH EYES 3 TIMES A DAY added in this encounter Orders Outpatient Referral Count Last Ordered Date Fir st Ordered Date AMB REFERRAL TO NEUROLOGY 2 12/06/2023 documented in this encounter Care Teams Watch Engineer Relationship Specialty [place] [id number] [address] PCP - General Family Medicine 02/19/22 07/19/24 [place] [id number] [address] Rheumatology 07/15/17 documented as of this encounter
--- OUTSIDE RECORDS SUMMARY | 2024-08-29 10:15 | XMS_ITS | Encounter Summary ---
Author Organization [facility] Address [address] [place] [address] Phone Care Team Providers Care Electrician Locomotive Name Role Phone Gladis Song MD Unavailable Thi Lugo MD Primary Care Provider [phone] Reason for Visit * Reason Onset Date Comments Request to reschedule 10/04/2023 Encounter Details Date Type Department Care Team (Late st Contact Info) Description 10/04/2023 Telephone [facility] [address] 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 Attempted to reach patient at number listed but had to leave a message. URCE CONSERVATIONIST documented in this encounter Plan of Treatment Not on file documented as of this encounter Visit Diagnoses Not on filedocumented in this encounter Care Teams Electrician Locomotive Relationship Specialty [place] [address] [facility] [address] [place] [address] PCP - General Family Medicine 02/19/22 07/19/24 [place] [id number] [address] Rheumatology 07/15/17 documented as of this encounter
--- OUTSIDE RECORDS SUMMARY | 2024-08-29 10:15 | XMS_ITS | Encounter Summary ---
Author Organization [facility] Address [address] [place] [address] Phone Care Team Providers Care Business Support Coordinator Name Role Phone Gladis Song MD Unavailable Thi Lugo MD Primary Care Provider [phone] Encounter Details Date Type Department Care Team (Late st Contact Info) Description 07/11/2023 Telephone [facility] [address] [facility] [address] [facility] 6th [place] [address] [place] [address] Tammie Paul CMA Social History Tobacco Use Types Packs/Day Years [...] on file 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 Dr. Mirza had attempted to reach out around March but went to the . Her appointment was cancelled due to clinic cancellation and she is now due for a follow. She is now scheduled on 11/21/23 and is on the waitlist. Pls help? Thanks, jonathon CAL VOUCHER CLERK documented in this encounter Plan of Treatment Not on file documented as of this encounter Visit Diagnoses Not on filedocumented in this encounter Care Teams Business Support Coordinator Relationship Specialty [place] [address] [facility] [address] [place] [address] PCP - General Family Medicine 02/19/22 07/19/24 [place] [address] [facility] [address] [place] [address] Rheumatology 07/15/17 documented as of this encounter
--- OUTSIDE RECORDS SUMMARY | 2024-08-29 10:15 | XMS_ITS | Clinical Summary ---
Author Organization [facility] Address [address] [place] [id number] Care Team Providers Care Tack Picker Name Role Phone Gladis Song MD Unavailable Emily Jordan MD Primary Care Provider [phone]- [phone] Allergies Active Allergy Reactions Criticality Noted Date [...] (03/03/2020): Added automatically from request for surgery [id number] Tachycardia 09/03/2019 Dyspepsia 09/03/2019 Annual physical exam [...] ith chronic systolic congestive heart failure ([facility]/HCC) 06/01/2019 Assessment & Plan (06/02/2019 9:43 AM CDT): On appropriate medical therapy. Continue medical therapy. 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 Assessment & Plan (07/14/2024 11:36 AM PRO SHOP ATTENDANT): Moderate coronary disease with recurrent exertional dyspnea and chest pain symptoms. We will recheck exercise stress echo Assessment & Plan (12/24/2022 10:08 AM CDT): CAD with non obstructed CAD on [facility] in 2018 now with stable angina. [...] PM CDT): She had minimal CAD on [facility] in 2018. She continues on atorvastatin [...] stopped. Assessment & Plan (07/11/2018 5:29 PM PRO SHOP ATTENDANT): Seems biliary by history. Will check RUQ [...] BID Assessment & Plan (07/11/2018 5:29 PM PRO SHOP ATTENDANT): Although this is not well documented, she [...] Her last lipid panel was checked in 2018 and was acceptable. We will continue atorvastatin. [...] 04/29/2017 Assessment & Plan (09/03/2019 11:50 AM PRO SHOP ATTENDANT): BMI Follow-up includes: nutrition counseling, exercise counseling [...] provided. Assessment & Plan (10/21/2017 9:29 AM PRO SHOP ATTENDANT): Body mass index is 32.32 kg/m??. BMI Follow-up includes: nutrition counseling, exercise counseling and education provided. Assessment & Plan (09/23/2017 2:52 PM PRO SHOP ATTENDANT): Body mass index is 31.91 kg/m??. BMI Follow-up includes: nutrition counseling, exercise counseling and education provided. Assessment & Plan (08/16/2017 11:22 AM PRO SHOP ATTENDANT): BMI Follow-up includes: nutrition counseling, exercise counseling [...] recommended Assessment & Plan (07/14/2024 11:36 AM PRO SHOP ATTENDANT): Known PFO. Already on anticoagulation due to possible history of atrial fibrillation. No clear documented history of AFib however there was enough of a clinical concern that this was started by her prior bioinformaticist. She was tolerating this okay without any [...] Maintain adequate clear fluid intake. May use zyeh-peu-xvordfh acetaminophen or ibuprofen. Medication instructions were provided [...] orders Assessment & Plan (09/23/2017 2:52 PM PRO SHOP ATTENDANT): Using her singulair and inhaler as prescribed. Late, effect, cerebrovascular disease 06/03/2015 Assessment & Plan (05/13/2018 10:11 AM CDT): Minimal residual. Borderline diabetes mellitus 06/03/2015 Assessment & Plan (06/02/2019 9:42 AM CDT): Eating healthy. Exercising when she can. Labs pending Assessment & Plan (05/13/2018 10:12 AM CDT): Get A1c with labs again today. Weight loss recommended. Systemic lupus erythematosus ([facility]) 4 Overview (12/05/2016): SLE Assessment & Plan [...] Song. Assessment & Plan (10/22/2017 11:13 AM PRO SHOP ATTENDANT): Patient disease activity is moderate. Her LFTs are now normal so will try increasing MTX. Patient is to continue HCQ. She is to increase the MtX to 4 tablets/week x 1 week, then increase to 6 tablets/week thereafter. Will check routine labs at the next OV. She had an eye exam recently. Assessment & Plan (09/09/2017 9:55 AM PRO SHOP ATTENDANT): MTX started at the last Ov. She [...] MTX. Assessment & Plan (07/29/2017 12:51 PM PRO SHOP ATTENDANT): Patient disease activity is moderate. Patient is [...] GI. Assessment & Plan (07/11/2018 5:28 PM PRO SHOP ATTENDANT): Has Hx reflux but on treatment and her symptoms don't seem consistent with this. Continue current medication for now. Assessment & Plan (05/13/2018 10:12 AM CDT): Not certain this diagnosis is correct or whether it is responsible for any symptoms given her normal EGD and lack of response to PPI therapy. Seeing bioinformaticist next week to consider alternative explanations for heartburn . Assessment & Plan (10/22/2017 11:14 AM PRO SHOP ATTENDANT): Recently started on protonix. Assessment & Plan (10/21/2017 9:28 AM PRO SHOP ATTENDANT): Change the omeprazole to pantoprazole 40 mg [...] GI Assessment & Plan (09/23/2017 2:51 PM PRO SHOP ATTENDANT): Increase omeprazole to 40 mg daily. sit [...] medication, Maintain adequate fluid intake. May use gszu-jmk-ghzxckx acetaminophen or ibuprofen. Medication instructions were provided [...] 05/13/2018 Assessment & Plan (10/21/2017 9:29 AM PRO SHOP ATTENDANT): Resolved. Lungs are clear. Assessment & Plan (09/23/2017 2:52 PM PRO SHOP ATTENDANT): Order CXR today May need steroids, antibiotic if pneumonia. Assessment & Plan (08/16/2017 12:36 PM PRO SHOP ATTENDANT): Patient is still continuing to wheeze. Ventolin 2 puffs t.i.d.. Explained to patient that she should contact the office if she does not feel better. Hypokalemia 08/16/2017 05/13/2018 Assessment & Plan (08/16/2017 12:36 PM PRO SHOP ATTENDANT): Patient was given potassium at the urgent care. BMP today. 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 She is already working with a desulphuring operator on this (but they reportedly don't know what's causing it either). We'll see if anything comes up in lab work. TIA (transient ischemic attack) 04/29/2017 05/13/2018 Assessment & Plan (04/29/2017 8:32 PM CDT): Workup completed in [facility] in [place], [place] CT negative except old infarct from [...] 09/2017. Assessment & Plan (10/22/2017 11:13 AM PRO SHOP ATTENDANT): Will continue to monitor the patient with routine labs. Assessment & Plan (09/09/2017 7:58 AM PRO SHOP ATTENDANT): Will continue to monitor the patient with routine labs. Assessment & Plan (07/29/2017 12:51 PM PRO SHOP ATTENDANT): Will continue to monitor the patient with routine labs. Assessment & Plan (04/24/2017 9:34 AM CDT): Will continue to monitor the patient with routine labs. Keratosis, senilis 09/25/2016 8 [place]'s disease 09/25/2016 05/13/2018 Venous collins of lip 09/25/2016 8 Benign hypertension 07/19/2016 05/22/20 17 Overview (12/06/2016): BENIGN HYPERTENSION Cardiovascular disease 07/17/201605/13 Bronchial asthma 07/17/2016 02/24/2019 Snoring 07/17/2016 05/13/2018 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 ([facility]) 06/05/2015 05/13/2018 Hypertension 05/04/2014 06/01/2019 Overview (12/07/2016): [...] Arthralgia 10/30/2006 05/13/2018 Overview (12/07/2016): JOINT PAIN-UNSPEC Encounters Date Type Department Care Team Description 08/14/2024 Telephone [facility] Scheduling [address] [place] [address] Nikko Carter MD PhD Scheduling Appointments 07/17/2024 8:45 AM PRO SHOP ATTENDANT Ancillary Procedure [facility] [address] [place] [address] [address] [place] [address] Exertional dyspnea; Chest pain, unspecified type 07/14/2024 10:00 AM PRO SHOP ATTENDANT Office Visit [facility] Cardiology [address] [place] [address] Medical Office Building [address] [place] [address] Shayna Rm MD Exertional dyspnea (Primary Dx); Paroxysmal atrial fibrillation (CMS/HCC) (HCC); Chest pain, unspecified type; Coronary artery disease involving o[place] heart without angina pectoris, unspecified vessel or lesion type; Patent foramen ovale from Last 3 Months Immunizations Name Administration Dates Next Due Influenza, Quadrivalent, Spl it, Intramuscular 05/17/2015 Influenza, Quadrivalent, Spl it, Preservative Free, Intramuscular 07/16/2016 Influenza, Split 05/21/2013,06/05/2011 Influenza, Trivalent, High D ose, Split, Preservative Free, Intramuscular 06/02/2019,07/03/2018,05/15/2017,07/13 Influenza, Trivalent, IM (MDV) 05/17/2015,2011,06/28/2009 Influenza, Trivalent, Recomb inant, Egg Free, Preservative Free, Antibiotic Free, IM (FLUBLOK) 05/28/2014,05/28/2014 Influenza, Unspecified 05/03/2017 Pneumococcal Conjugate PCV 13 05/22/2017 Pneumococcal Polysaccharide PPV23 05/28/2014, Surgical History Surgery Date Site/Laterality Comments SECTION 09/02/1974 - 09/01/1975 APPENDECTOMY 09/02/1974 - 09/01/1975 BILATERAL OOPHORECTOMY 09/02/1974 - 09/01/1975 HYSTERECTOMY 1990s TONSILLECTOMY/ADENOIDECTOMY 09/02/1956 - 09/01/1957 As a child COLONOSCOPY 09/02/2019 - 09/01/2020 UPPER GASTROINTESTINAL ENDOSCOPY 09/02/2019 - 09/01/2020 Medical History Medical History Date Comments Hx Other Medical 2009 TIA / transient global amnesia Cerebrovascular accident (CVA) (HCC) Stroke Asthma Hypertension Hyperlipidemia Heart murmur Lupus Irritable bowel syndrome (IBS) TIA (transient ischemic attack) Sleep apnea PFO (patent foramen ovale) GERD (gastroesophageal reflux disease) CHF (congestive heart failure) (CMS/HCC) (HCC) CAD (coronary artery disease) Family History Medical History Relation Name Comments Asthma Brother 1 Asthma; Diabetes Brother 2 Diabetes mellit us; Asthma Father Asthma; /Asthma ; Tuberculosis Father Tuberculosis; Coronary artery disease Mother Sen nary artery disease; Heart attack Mother heart attack; Heart disease Mother Family history of cardiac disorder - (Added by TW Conv) Asthma Sister 1 Asthma; Diabetes Sister 2 Diabetes mellit us; Anesthesia problems Neg Hx Relation Name Status Comments Brother 1 Brother 2 Father Mother Sister 1 Sister 2 Social History Tobacco Use Types Packs/Day Years [...] on file Legal Sex Female 12:11 AM PRO SHOP ATTENDANT Gender Identity Not on file Sexual Orientation Not on file Occupation Industry Job Start Date Job End Date Retired Not on file Not on file Not on file Obstetrics History Last Filed Vital Signs Vital Sign Reading Time Taken Comments Blood Pressure 106/78 07/14/2024 11:12 AM PRO SHOP ATTENDANT Pulse 74 07/14/2024 11:12 AM PRO SHOP ATTENDANT Temperature 36.4 ??C (97.6 ??F) 09/25/2023 3:34 PM CS T Respiratory Rate 18 03/28/2020 6:35 AM CDT Oxygen Saturation 98% 07/14/2024 11:12 AM PRO SHOP ATTENDANT Inhaled Oxygen Concentration - - Weight 62.1 kg (137 lb) 07/14/2024 11:12 AM PRO SHOP ATTENDANT Height 154.9 cm (5' 1 ) 07/14/2024 11:12 AM PRO SHOP ATTENDANT Body Mass Index 25.89 07/14/2024 11:12 AM PRO SHOP ATTENDANT Plan of Treatment Health Maintenance Due Date Last Done Comments DTaP/Tdap/Td Vaccine (1 - Tdap) 1959 Hepatitis B Screening 1966 Well Visit 65+ 06/02/2020 06/02/2019, 05/03, 05/22/2017 Depression Screening 09/03/2020 09/03/2019, 06/30/2019, 06/02/2019, Additional history exists Colon Cancer Screening-Colonoscopy 02/06/2021 02/06/2011 Fall Risk Assessment 03/28/2021 03/28/2020, 09/03/2019, 06/30/2019, Additional history exists Osteoporosis Screening-Bone Density Scan 05/15/2023 05/15/2021, 06/09/2018, 11/30/2014 Covid-19 Vaccine (2023-2 5 season) 2024 08/07/2021, 11/18/2020, 10/21/2020 Colon Cancer Screening-CT Colonography Discontinued 02/06/2011 Colon Cancer Screening-DNA Stool Discontinued 02/07/20 Colon Cancer Screening-FIT Discontinued 02/06/2011 Colon Cancer Screening-Sigmoidoscopy Discontinued 02/06/2011 Hepatitis C Screening Completed 05/22/2017 Pneumococcal vaccine 65+ Completed 017, 05/28/2014, 05/28/2014 Breast Cancer Screening-Mammogram Discontinued 03/31/2019, 02/20/2018, 02/11/2017, Additional history exists Zoster Vaccine Completed 06/29/2024, 04/27/2024 Influenza Vaccine Completed 07/13/2024, , 06/02/2019, Additional history exists Procedures Procedure Name Priority Date/Time Associated Diagnosis Comments STRESS ECHO EXERCISE W DOPPLER/CF W CONTRAST Routine 07/17/2024 9:12 AM PRO SHOP ATTENDANT Exertional dyspnea Chest pain, unspecified type SCREENING [...] W DOPPLER/CF W CONTRAST (07/17/2024 9:12 AM PRO SHOP ATTENDANT) LV EF 60 % CARDIOREPORT Anatomical Region Laterality Modality Ultrasound 07/17/2024 8:45 AM PRO SHOP ATTENDANT Narrative 07/17/2024 11:46 AM PRO SHOP ATTENDANT Patient name: Mirella Orantes Date of test: 07/17/2024 Hospital #: [id number] ?Location: [facility] Interpreted by: Merrick Castano MD Workforce Management Manager: Cindy Suazo RDCS RCCS RN: Ramy Warner RN Reason for Test: Chest Pain, Dyspnea Study quality: Technically good Referring Physician: SHAYNA RM MD Contrast Agent: 0.45 ml Definity Administered, (1.05 ml wasted). BASELINE STUDY: Wall Motion Scoring (1=Normal 2=Hypo 3=Akinetic 4=Dyskin./Aneurysm 0=Not visualized) Parasternal [place]:MAS=1 BAS=1 MIL=1 MARCY=1 Parasternal [place]:MAS=1 MIS=1 GA=1 MIL=1 MAL=1 MA=1 Apical 4 Chambers:=1 MIS=1 BIS=1 BAL=1 MAL=1 AL=1 AC=1 Apical 2 Chambers:AI=1 GA=1 BI=1 BA=1 MA=1 AA=1 AC=1 Ejection Fraction: 60% LV Global Strain: -19% LV Global Function: Normal left ventricular systolic function. Baseline Echo Comments: Normal LV+RV morphology and function, No wall abnormalities. Mild concentric LVH Doppler/CF Comments: No MS, MR, , AR, TS, TR, PS, AL, PA systolic pressure is 20 mmHg. Baseline HR: 69 Baseline BP: 148/88 Conduction Defects: Resting ECG Comments: Normal sinus rhythm, Cannot r/o anterior infarct vs lead placement Medications: eliquis, atorvastatin, bisoprolol, imdur, furosemide, hydrodiuril Meds held: all meds held POST EXERCISE STUDY: Wall Motion Scoring (1=Normal 2=Hypo 3=Akinetic 4=Dyskin./Aneurysm 0=Not visualized) Parasternal [place]:MAS=1 BAS=1 MIL=1 MARCY=1 Parasternal [place]:MAS=1 MIS=1 GA=1 MIL=1 MAL=1 MA=1 Apical 4 Chambers:=1 MIS=1 BIS=1 BAL=1 MAL=1 AL=1 AC=1 Apical 2 Chambers:AI=1 GA=1 BI=1 BA=1 MA=1 AA=1 AC=1 Peak HR: [...] MD By signing this report, the attending bioinformaticist certifies that he or she has personally supervised and interpreted the echocardiogram and has reviewed and or edited and agrees with the written comments contained within the report. Procedure Note Merrick Castano MD - 07/17/2024 Patient name: Mirella Orantes Date of test: 07/17/2024 Hospital #: [id number] Location: [facility] Interpreted by: Merrick Castano MD Workforce Management Manager: Cindy Suazo RDCS RCCS RN: Ramy Warner RN Reason for Test: Chest Pain, Dyspnea Study quality: Technically good Referring Physician: SHAYNA RM MD Contrast Agent: 0.45 ml Definity Administered, (1.05 ml wasted). BASELINE STUDY: Wall Motion Scoring (1=Normal 2=Hypo 3=Akinetic 4=Dyskin./Aneurysm 0=Not visualized) Parasternal [place]:MAS=1 BAS=1 MIL=1 MARCY=1 Parasternal [place]:MAS=1 MIS=1 GA=1 MIL=1 MAL=1 MA=1 Apical 4 Chambers:=1 MIS=1 BIS=1 BAL=1 MAL=1 AL=1 AC=1 Apical 2 Chambers:AI=1 GA=1 BI=1 BA=1 MA=1 AA=1 AC=1 Ejection Fraction: 60% LV Global Strain: -19% LV Global Function: Normal left ventricular systolic function. Baseline Echo Comments: Normal LV+RV morphology and function, No wall abnormalities. Mild concentric LVH Doppler/CF Comments: No MS, MR, , AR, TS, TR, PS, AL, PA systolic pressure is 20 mmHg. Baseline HR: 69 Baseline BP: 148/88 Conduction Defects: Resting ECG Comments: Normal sinus rhythm, Cannot r/o anterior infarct vs lead placement Medications: eliquis, atorvastatin, bisoprolol, imdur, furosemide, hydrodiuril Meds held: all meds held POST EXERCISE STUDY: Wall Motion Scoring (1=Normal 2=Hypo 3=Akinetic 4=Dyskin./Aneurysm 0=Not visualized) Parasternal [place]:MAS=1 BAS=1 MIL=1 MARCY=1 Parasternal [place]:MAS=1 MIS=1 GA=1 MIL=1 MAL=1 MA=1 Apical 4 Chambers:=1 MIS=1 BIS=1 BAL=1 MAL=1 AL=1 AC=1 Apical 2 Chambers:AI=1 GA=1 BI=1 BA=1 MA=1 AA=1 AC=1 Peak HR: [...] MD By signing this report, the attending bioinformaticist certifies that he or she has personally supervised and interpreted the echocardiogram and has reviewed and or edited and agrees with the written comments contained within the report. us Shayna Rm MD ECHO PROCEDURES F inal Result * Screening [...] compared to prior imaging studies performed at [facility] on 09/12/2015, 02/11/2017 and 02/20/2018. There [...] compared to prior imaging studies performed at [facility] on 09/12/2015, 02/11/2017 and 02/20/2018. There are scattered areas of fibroglandular density. There is no suspicious abnormality in either breast. Impression: Annual screening mammography is recommended. OVERALL FINAL ASSESSMENT: BI-RADS CATEGORY 1: Negative. us Santiago Bueno MD IMG MAMMO PROCEDURES Final [...] M.D. Electronically signed by: Bashir Miller M.D. us Santiago Bueno MD IMG DXA PROCEDURES Final Resul t * Hepatitis C antibody (05/22/2017 1:57 PM CDT) Hep C Ab Non-Reacti ve Non-Reacti ve [facility] Comment:Testing performed by : [facility], [facility] [facility], [place]., [address] Blood specimen (specimen) 05/22/2017 1:57 PM CDT 05/22/2017 8:04 PM CDT Santiago Bueno MD LAB MICROBIOLOGY - GENERAL ORD ERABLES Final Result [facility] [id number] [facility] [address] * COLONOSCOPY (02/06/2011) Pathologist [facility] Colonoscopy Normal Historical Provider HEALTH MAINTENANCE Final Result from Last 3 Months or Most Recently Relevant to Health Maintenance Insurance [employer] [facility] [employer] [facility] [employer] [facility] [employer] [facility] [employer] Advance Directives For more information, please contact: [phone] * Full Code (Latest Code Status on File) Date Activated Date Inactivated Comments 05/26/2018 10:21 AM 05/26/2018 2:17 PM Care Teams Tack Picker Relationship Specialty [place] [id number] [address] PCP - General Family Medicine 07/20/24 [place] [id number] [address] Rheumatology 07/15/17
--- OUTSIDE RECORDS SUMMARY | 2024-08-29 10:15 | XMS_ITS | Encounter Summary ---
Author Organization Formerly [facility] Address [address] [place] [address] Care Team Providers Care Screen Printing Paster Name Role Phone Gladis Song MD Unavailable Thi Lugo MD Primary Care Provider [phone] Reason for Referral * Diagnostic Imaging (Routine) - Closed Specialty Diagnoses / Procedures Referred By Contac t Referred To Contact Diagnoses Neck pain Procedures XR Spine Cervical 2 or 3 Views Julianna Mirza MD [address] [address] Phone: tel: fax: [facility] Referral ID Status Reason Start Date Expiration Date Visits Re quested Visits Authorized [id number] Closed 08/15/2023 09/13/2024 1 1 K WRITER SALESPERSON Reason for Visit * Diagnostic Imaging (Routine) - Closed Specialty Diagnoses / Procedures Referred By Contac t Referred To Contact Diagnoses Neck pain Procedures XR Spine Cervical 2 or 3 Views Julianna Mirza MD [address] [address] Phone: tel: fax: [facility] Referral ID Status Reason Start Date Expiration Date Visits Re quested Visits Authorized [id number] Closed 08/15/2023 09/13/2024 1 1 Encounter Details Date Type Department Care Team (Latest Contact Info) Description 08/15/2023 12:43 PM CHECK WRITER SALESPERSON - 08/15/2023 11:59 PM CHECK WRITER SALESPERSON Hospital Encounter [facility] [address] [place], [place] [id number] Neck pain Discharge Disposition: Discharge to home or self care Social History Tobacco Use Types Packs/Day Years [...] on file Legal Sex Female 12:11 AM CHECK WRITER SALESPERSON Gender Identity Not on file Sexual Orientation Not on file Occupation Industry Job Start Date Job End Date Retired Not on file Not on file Not on file documented as of this encounter Medications at Time of Discharge albuterol HFA (PROVENTIL HFA,VENTOLIN HFA,PROAIR HFA) 90 mcg/actuation inhaler Inhale 90 puffs 03/31/2019 ascorbic acid (VITAMIN C) 1,000 mg tablet Take 1 tablet (1,000 mg total) by mouth daily Breo Ellipta 100-25 mcg/dose diskus inhaler INHALE 1 PUFF INTO THE LUNGS DAILY. RINSE AND SPIT AFTER USE 03/14/2023 calcium carbonate (OS-LEELA) 1,500 mg (600 mg of elemental calcium) tabletIndications:Po st-Menopausal Osteoporosis Prevention Take 2,000 mg of elemental calcium by mouth every morning calcium carbonate-vitamin D3 1,250mg (500mg elemental) - 5 mcg (200 units) per tablet Take by mouth daily cholecalciferol (VITAMIN D3) 2,000 unit tablet take 1 by Oral route every day 0 0 11/30/2014 dicyclomine (BENTYL) 10 mg capsule 07/06/2022 fluticasone propionate (FLOVENT HFA) 110 mcg/actuation inhaler Inhale 2 puffs 2 (two) times a day Rinse mouth with water after use. Do not swallow. 2 Inhaler 2 03/31/2019 gabapentin (NEURONTIN) 100 mg capsule Take 2 capsules (200 mg total) by mouth 06/01/2022 hydroCHLOROthiazide (HYDRODIURIL) 25 mg tablet TAKE 1 TABLET BY MOUTH EVERY DAY 90 tablet 3 06/01/2019 methotrexate 2.5 mg tablet TAKE 6 TABLETS BY MOUTH ONCE A WEEK 03/29/2021 montelukast (SINGULAIR) 10 mg tablet TAKE 1 TABLET BY MOUTH EVERY DAY AT NIGHT 90 tablet 3 08/17/[address] (PROTONIX) 40 mg EC tablet Take 1 tablet (40 mg total) by mouth 2 (two) times a day 12/08/2020 PARoxetine (PAXIL) 20 mg tablet TAKE 1/2 TABLET BY MOUTH EVERY DAY IN THE MORNING 15 tablet 1 07/28/2021 sucralfate (CARAFATE) 1 gram tablet 05/04/2022 abatacept/maltose (ORENCIA, WITH MALTOSE, IV) Infuse into a venous catheter every 30 (thirty) days 4 alosetron (LOTRONEX) 1 mg tablet Take 1 mg by mouth as needed 01/10/2021 4 amoxicillin 500 mg capsule TAKE 1 CAPSULE BY MOUTH EVERY 8 HOURS UNTIL FINISHED 07/10/2022 4 Arnuity Ellipta 100 mcg/actuation inhaler INHALE 1 PUFF INTO THE LUNGS DAILY. RINSE AND SPIT AFTER 05/15/2022 4 atorvastatin (LIPITOR) 80 mg tablet TAKE 1 TABLET BY MOUTH EVERY DAY 90 tablet 07/08/2023 4 azelastine (ASTELIN) 137 mcg (0.1 %) nasal spray INSTILL 1 SPRAY INTO EACH NOSTRIL DIRECTED 2 TIMES PER DAY 01/10/2021 4 bisoprolol (ZEBETA) 5 mg tablet Take 1 tablet (5 mg total) by mouth daily 90 tablet 3 06/21/2023 4 dexlansoprazole (DEXILANT) 60 mg capsule Take 60 mg by mouth 2 (two) times a day 4 Eliquis 5 mg tablet TAKE 1 TABLET BY MOUTH TWICE A DAY 180 tablet 07/26/2023 4 empagliflozin (JARDIANCE) 10 mg tablet Take 1 tablet (10 mg total) by mouth daily 30 tablet 6 06/21/2023 4 furosemide (LASIX) 20 mg tablet TAKE 1 TABLET BY MOUTH EVERY DAY 90 tablet 3 06/18/2023 4 hydroxychloroquine (PLAQUENIL) 200 mg tablet Take 1 tablet (200 mg total) by mouth 2 (two) times a day. 180 tablet 05/14/2018 4 isosorbide mononitrate ER (IMDUR) 30 mg 24 hr tablet TAKE 1 TABLET BY MOUTH EVERY DAY 90 tablet 07/08/2023 4 methscopolamine (PAMINE FORTE) 5 mg tablet Take 5 mg by mouth daily 05/19/2021 4 methylPREDNISolone (MEDROL DOSEPACK) 4 mg Dosepack Take 1 tablet (4 mg total) by mouth 07/16/2022 4 nitroglycerin (NITROSTAT) 0.4 mg SL tablet May repeat dose every 5 minutes for up to 3 doses total. 25 tablet 3 05/23/2018 4 ondansetron ODT (ZOFRAN-ODT) 4 mg disintegrating tablet 11/02/2019 4 potassium chloride ER (Klor-Con M20) 20 mEq CR tablet TAKE 2 TABLETS EVERY MORNING AND 2 TABLETS EVERY EVENING 360 tablet 3 06/22/2022 4 pregabalin (LYRICA) 75 mg capsuleIndications:n europathic pain Take 1 capsule (75 mg total) by mouth 2 (two) times a day 60 capsule 2 08/15/2023 4 documented as of this encounter Discharge Disposition Disposition Code Departure Means Destination Discharge to home or self care documented in this encounter Plan of Treatment Not on file documented as of this encounter Procedures Procedure Name Priority Date/Time Associated Diagnosis Comments XR SPINE CERVICAL 2 OR 3 VIEWS Schedule Routine, Read Routine (OP Routine) 08/15/2023 1:02 PM CHECK WRITER SALESPERSON Neck pain documented in this encounter Results * XR Spine Cervical 2 or 3 Views (08/15/2023 1:02 PM CHECK WRITER SALESPERSON) Anatomical Region Laterality Modality Spine N/A Computed Radiogr aphy 08/15/2023 2:08 PM CHECK WRITER SALESPERSON Impressions 08/15/2023 5:16 PM CHECK WRITER SALESPERSON 1. ??Moderate degenerative disc height loss at C2-C5. 2. ??Mild stepwise retrolisthesis of C3-C5. Dictated by: Nancy Chatman MD The radiology attending physician has personally reviewed this study, and had reviewed and/or edited this written report and agrees with it. Electronically signed by: Duong Dubon MD Narrative 08/15/2023 5:16 PM CHECK WRITER SALESPERSON EXAMINATION: XR SPINE CERVICAL 2 OR 3 [...] and agrees with it. Electronically signed by: uDong Dubon MD Julianna Mirza MD IMG XR PROCEDURES Final Result documented in this encounter Visit Diagnoses Diagnosis Neck pain Cervicalgia documented in this encounter Care Teams Screen Printing Paster Relationship Specialty [place] [address] [facility] [address] [place] [address] PCP - General Family Medicine 02/19/22 07/19/24 [place] [address] [facility] [address] [place] [address] Rheumatology 07/15/17 documented as of this encounter
--- OUTSIDE RECORDS SUMMARY | 2024-08-29 10:15 | XMS_ITS | Encounter Summary ---
Author Organization [facility] Address [address] [facility] [address] [place] [address] Phone Care Team Providers Care Brush And Broom Clipper Name Role Phone Gladis Song MD Unavailable Thi Lugo MD Primary Care Provider [phone] Reason for Referral * Consultation (Routine) - Pending Review Specialty Diagnoses / Procedures Referred By Valerie florian Referred To Contact Neurology Diagnoses Tremor Jluis Gautam MD PhD [address] [place] [address] Phone: tel: fax: [facility] Movement Disorders [address] [place] [address] Phone: tel: fax: Referral ID Status Reason Start Date Expiration Date Visits Requested Visits Authorized [id number] Pending Review Specialty Services Required 12/12/2023 01/10/2025 1 1 Question Answer Please select the performing region: [facility] (All Locations) [[id number]] # of visits: 1 Comments Movement disorders clinic; mild low frequency tremor of right hand Encounter Details Date Type Department Care Team (Late st Contact Info) Description 12/12/2023 Orders Only [facility] Stroke [address] [facility] [address] [place] [address] Jluis Gautam MD PhD [address] [place] [address] Tremor (Primary Dx) Social History Tobacco Use Types [...] on file 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 Gender Identity Not on file Sexual Orientation Not on file Occupation Industry Job Start Date Job End Date Retired Not on file Not on file Not on file documented as of this encounter Plan of Treatment Scheduled Referrals Name Type Priority Associated Diagnoses Order Schedule Ambulatory referral to Neurology Outpatient Referral Routine Tremor Expected: 12/26/2023 (Approximate), Expires: 12/11/2024 documented as of this encounter Visit Diagnoses Diagnosis Tremor- Primary Abnormal involuntary movements documented in this encounter Care Teams Brush And Broom Clipper Relationship Specialty [place] [address] [address] PCP - General Family Medicine 02/19/22 07/19/24 [place] [address] [facility] [address] [place] [address] Rheumatology 07/15/17 documented as of this encounter
--- OUTSIDE RECORDS SUMMARY | 2024-08-29 10:15 | XMS_ITS | Encounter Summary ---
Author Organization [facility] Address [address] [place] [address] Phone Care Team Providers Care Scrap Breaker Name Role Phone Gladis Song MD Unavailable Thi Lugo MD Primary Care Provider [phone] Encounter Details Date Type Department Care Team (Late st Contact Info) Description 12/20/2023 Telephone [facility] Cardiology [address] [facility] Advanced Medicine 8th [place] [address] [place] [address] Judah Duggan MD [address] [place] [address] Social History Tobacco Use Types [...] on file 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 I refilled her bisoprolol 5mg. It was taken off her med list in September by mistake. Pt states she is still taking it. * Telephone Encounter - Hraper Frank - 12/20/2023 10:44 AM CDT Urban Pt is calling in regards to speaking to a nurse about bisoprolol and her lab work. documented in this encounter Plan of Treatment Not on file documented as of this encounter Visit Diagnoses Not on filedocumented in this encounter Care Teams Scrap Breaker Relationship Specialty [place] [address] [address] PCP - General Family Medicine 02/19/22 07/19/24 [place] [address] [address] Rheumatology 07/15/17 documented as of this encounter
--- OUTSIDE RECORDS SUMMARY | 2024-08-29 10:15 | XMS_ITS | Encounter Summary ---
Author Organization [facility] Address [address] [place] [address] Phone Care Team Providers Care Instrumental Musician Name Role Phone Gladis Song MD Unavailable Thi Lugo MD Primary Care Provider [phone] Encounter Details Date Type Department Care Team (Late st Contact Info) Description 08/05/2023 Orders Only [facility] Cardiology [address] [facility] Advanced Medicine 8th [place] [address] [place] [address] Judah Duggan MD [address] [place] [address] Paroxysmal atrial fibrillation (CMS/HCC) (HCC) (Primary Dx) Social History Tobacco Use Types [...] on file Legal Sex Female 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 Gender Identity Not on file Sexual Orientation Not on file Occupation Industry Job Start Date Job End Date Retired Not on file Not on file Not on file documented as of this encounter Progress Notes * Dannielle Blackwood RN - 08/05/2023 9:00 AM CST .error [place] PRECASTER documented in this encounter Plan of Treatment Scheduled Orders Name Type Priority Associated Diagnoses Orde r Schedule Basic metabolic panel Lab Routine Paroxysmal atrial fibrillation (CMS/HCC) (HCC) Expected: 08/05/2023, Expires: 08/05/2024 documented as of this encounter Visit Diagnoses Diagnosis Paroxysmal atrial fibrillation (CMS/HCC) (HCC)- Primary Atrial fibrillation documented in this encounter Care Teams Instrumental Musician Relationship Specialty [place] [address] [address] PCP - General Family Medicine 02/19/22 07/19/24 [place] [address] [address] Rheumatology 07/15/17 documented as of this encounter
--- OUTSIDE RECORDS SUMMARY | 2024-08-29 10:15 | XMS_ITS | Encounter Summary ---
Author Organization [facility] Address [address] [place] [address] Phone Care Team Providers Care School Traffic Guard Name Role Phone Gladis Song MD Unavailable Thi Lugo MD Primary Care Provider [phone] Encounter Details Date Type Department Care Team (Late st Contact Info) Description 12/24/2023 Telephone [facility] Cardiology [address] [facility] Advanced Medicine 8th [place] [address] [place] [address] Judah Duggan MD [address] [place] [address] Social History Tobacco Use Types [...] on file 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 Gender Identity Not on file Sexual Orientation Not on file Occupation Industry Job Start Date Job End Date Retired Not on file Not on file Not on file documented as of this encounter Miscellaneous Notes * Telephone Encounter - Dannielle Blackwood RN - 12/24/2023 4:45 PM CDT I spoke to pt regarding lab results; she verbalizes understanding * Telephone Encounter - Dannielle Blackwood RN - 12/24/2023 4:45 PM CDT ----- Message from Judah Duggan MD sent at 12/24/2023 4:26 PM CDT ----- ----- Message ----- From: Dannielle Blackwood RN Sent: 12/24/2023 3:41 PM CDT To: Judah Duggan MD ----- Message ----- From: Annalisa Gautam Sent: 12/24/2023 3:34 PM CDT To: Preet Duggan [facility] Labs documented in this encounter Plan of Treatment Not on file documented as of this encounter Visit Diagnoses Not on filedocumented in this encounter Care Teams School Traffic Guard Relationship Specialty [place] [address] [address] PCP - General Family Medicine 02/19/22 07/19/24 [place] [address] [address] Rheumatology 07/15/17 documented as of this encounter
--- OUTSIDE RECORDS SUMMARY | 2024-08-29 10:15 | XMS_ITS | Encounter Summary ---
Author Organization [facility] Address [address] [place] [address] Phone Care Team Providers Care Surgeon Chief Name Role Phone Gladis Song MD Unavailable Thi Lugo MD Primary Care Provider [phone] Encounter Details Date Type Department Care Team (Latest Contact Info) Description 08/16/2023 Orders Only [facility] Scanning, Provider Social History Tobacco Use Types Packs/Day Years [...] on file Legal Sex Female 12:11 AM OPENSTACK CLOUD CONSULTING ARCHITECT Gender Identity Not on file Sexual Orientation Not on file Occupation Industry Job Start Date Job End Date Retired Not on file Not on file Not on file documented as of this encounter Plan of Treatment Not on file documented as of this encounter Procedures Procedure Name Priority Date/Time Associated Diagnosis Comments SCAN - LABS 08/16/2023 documented in this encounter Results * SCAN - LABS (08/16/2023) us Provider Scanning Edited Result - Final documented in this encounter Visit Diagnoses Not on filedocumented in this encounter Care Teams Surgeon Chief Relationship Specialty [place] [address] [facility] [address] [place] [address] PCP - General Family Medicine 02/19/22 07/19/24 [place] [address] [facility] [address] [place] [address] Rheumatology 07/15/17 documented as of this encounter
--- OUTSIDE RECORDS SUMMARY | 2024-08-29 10:15 | XMS_ITS | Encounter Summary ---
Author Organization [facility] Address [address] [place] [address] Phone Care Team Providers Care Litigation Claim Representative Name Role Phone Gladis Song MD Unavailable Thi Lugo MD Primary Care Provider [phone] Reason for Referral * Consultation (Routine) - Pending Review Specialty Diagnoses / Procedures Referred By Valerie florian Referred To Contact Psychiatry Diagnoses Generalized anxiety disorder So Alcaraz PA [address] [facility] [address] [place] [address] Phone: tel: fax: External Order Referral ID Status Reason Start Date Expiration Date Visits Requested Visits Authorized [id number] Pending Review Specialty Services Required 09/25/2023 10/24/2024 1 1 Question Answer Please select the performing region: External Order [[id number]] # of visits: 1 Comments 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 Office Visit [facility] [place] [address] [facility] [address] [place] [id number] So Alcaraz PA [address] [facility] [address] [place] [address] Forgetfulness (Primary Dx); Generalized anxiety disorder Social History Tobacco Use Types Packs/Day Years [...] on file Legal Sex Female 12:11 AM 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 PRODUCTION WORKER Gender Identity Not on file Sexual Orientation Not on file Occupation Industry Job Start Date Job End Date Retired Not on file Not on file Not on file documented as of this encounter Last Filed Vital Signs Vital Sign Reading Time Taken Comments Blood Pressure 103/67 09/25/2023 3:34 PM ENGINEERING PRODUCTION WORKER Pulse 85 09/25/2023 3:34 PM ENGINEERING PRODUCTION WORKER Temperature 36.4 ??C (97.6 ??F) 09/25/2023 3:34 PM CS T Respiratory Rate - - Oxygen Saturation - - Inhaled Oxygen Concentration - - Weight 64.3 kg (141 lb 12.8 oz) 09/25/2023 3:34 PM ENGINEERING PRODUCTION WORKER Height 147.3 cm (4' 9.99 ) 09/25/2023 3:34 PM CS T Body Mass Index 29.64 09/25/2023 3:34 PM ENGI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 encounter Patient Instructions * Patient Instructions* So Alcaraz PA - 09/25/2023 3:15 PM ENGINEERING PRODUCTION WORKER [facility] - VISIT SUMMARY & PATIENT INSTRUCTIONS For Ms. Mirella Orantes (: 1950) [employer], Department of Neurology Clinic (Nurse Mia Kirk) Who came with you to clinic today: Providers today were: So Alcaraz PA-C FEEDBACK/DIAGNOSTIC ISSUES REGARDING BRAIN HEALTH Thank you for coming to the [facility] today and for allowing us to participate in your medical care. Based on information and testing that we reviewed today, including the results of your in-office testing (including physical examination), we think that the most likely cause of your memory and thinking concerns is inconsistent memory and thinking problems due to mood disorder. Other possible causes of the memory changes could be the very early stages of Alzheimer disease but this is very unlikely at this time. Memory and thinking test scores today: Your test scores today were: MMSE (Mini Mental Status Exam): A perfect score on this test is 30. A score of of between 27-30 is considered normal. A score of 24-26 is considered mildly impaired. A score of 20-23 is impaired. Scores below 20 show moderate impairment and 10 or below shows severe impairment. Short Blessed Test: A perfect score on the Short Blessed Test is a 0 (higher score means poorer performance). A score of 4 or below is mild impairment. Scores of 5 or more indicate impairment. The maximum (worst) score is 28. RECOMMENDATIONS FOR FURTHER TESTING We have requested that the following studies be performed: Laboratory (Blood tests): We reviewed your lab results today and no additional lab tests are needed. Imaging Studies: no additional neuroimaging is required at this time Other testing: no additional testing is indicated at this time Referrals to other providers: I will request that an outpatient clinic visit be scheduled with the following service(s): Geriatric Psychiatry Discuss with your primary care doctor: I have recommended that you follow-up with your primary carepractitioner to discuss control of vascular risk factors (e.g., high blood pressure, high cholesterol, high blood glucose) Future testing to consider for people who may have Alzheimer disease: There are tests available that can tell us if you have signs of Alzheimer???s disease in your brain. These tests may not change the treatment available to you, however. The tests that are available include a PET imaging study called an Amyvid scan, a special spinal fluid test called ADEVL and a blood test called PreCivity. Your insurance will probably not cover the imaging scan or the blood test; insurance sometimes covers the spinal fluid test. You your family can decide if you are interested in learning more about these tests. After you have had time to think about this, if you would like to learn more or schedule one of these tests please call the clinic nurse at [phone] or contact your physician via [employer]. MEDICATIONS DISCUSSED TODAY No changes to your medications were recommended today. We do recommend you work with your primary care physician and psychiatry on discontinuing medications that are no longer needed. We also recommend switching to an antidepressant with less anticholinergic effects. Paxil is the worst of these meds. Medications to slow progression of memory loss: None of these medications are indicated at this time. We discussed side effects including Nausea/Vomiting, Diarrhea, Headaches, Confusion, Muscle Cramps,Nightmares, Elevated blood sugars, Insomnia, Sedation or sleepiness. Disease modifying medications: We discussed recently approved disease modifying medications such aslecanemab/Leqembi. We Medications that may affect your memory: You are taking some medications that may be slowing down your memory and thinking. Medications may have stronger effects as you get older. We suggest that youreduce or stop taking these medications. You may need to get off some of these medications slowly over time. You should talk to your primary care doctor or psychiatrist about reducing these medications. ADDITIONAL RECOMMENDATIONS/RESOURCES Nutrition: We recommend that you eat a balanced diet, including fruits and vegetables daily and regular servings of fish. Alcohol intake: Alcohol can affect your memory and thinking and may increase our risk of falls or car accidents. We recommend that you limit alcohol intake to no more than 7 drinks per week, and no more than 3 drinks in one day. A drink is 1 12-ounce can or bottle of regular beer, doc, or wine cooler, or one 5 ounce glass of wine, or one 1.5 ounce shot of liquor. Activity: We recommend that you engage in daily physical activity such as walking or stretching. Ifyou have not already done so, you should consider developing a regular exercise regimen. We recommend you do things that stimulate your mind, such as puzzles, books, working on hobbies, visiting with friends and relatives or engaging in other social and community activities. Sleep: Sleep can have a big effect on your memory and thinking. Make sure you get a good night's sleep every night. If you have trouble sleeping, make sure you follow these rules for basic sleep hygiene: -Get up at the same time every morning, regardless of how little or how poorly you sleep. -No napping during the day time. If naps are really necessary, nap for less than an hour and only nap before 3 PM. -Have a regular calm down time before going to bed. Do not work right up until bedtime. -Have a regular exercise schedule, as exercise helps consolidate sleep. -No caffeine for 6 hours before bedtime. -No watching T.V. or using the computer in your bedroom or at bedtime. -If you are not able to fall asleep after 20 minutes, get out of bed and do a relaxing activity fora few minutes. Driving: No concerns about driving safety were raised at today's visit. Safety: No safety concerns were discussed today. Legal: No legal concerns were discussed today. You may wish to consult an corporate attorney regarding these matters. Level of Care Recommendation: You can continue to live independently with support from your family. RESEARCH STUDIES Many people have problems with their memory so it is very important that we find better ways to diagnose and treat people with memory disorders. You can help by participating in research studies. There are many different types of research studies. You and your family and/or caregivers can decide if you want to participate in research and what type of research study would be best for you. As a patient at the [facility], you or your caregivers may be asked to sign a consentform so that some information about you may be included in the [facility] Data Repository. This is a list of people who have been seen in our clinic and can be used to help researchers at [facility] find people who might be interested in participating in research studies. If you signed this form, you might be contacted by some of these researchers to see if you might be interested in participating in a research project. You and family can decide if you want to hear moreabout these projects and if you would like to participate. Signing the [facility] Data Repository consent form does not mean that you are agreeing to be in a research project; it only means the investigators can contact you to see if you might be interested in research projects. If you are interested in participating in research studies, consider the following opportunities: Participation in research studies was not discussed today. Patients and their care partners (age 50 and up) are invited to join the APT Webstudy, a national study sponsored by the National [place] of Aging, one of the National Institutes of Health. The APTWebstudy is an online study where you can learn more about dementia and brain health. Participants take memory tests and track their thinking online; you can use a computer, tablet or smartphone. As part of the APT webstudy, you may learn about other research opportunities, including clinical trials that may help us prevent Alzheimer disease and other dementias. To lean more, go online to https://www.aptwebstudy.org/welcome. FOLLOW-UP You should return to see Ms. Juany De Leon NP or Ms. Fatimah Hensley NP or PITO Cueva in 6 months. You can [phone] if you have questions about scheduling. If we ordered blood tests today, please stop by the [facility] patient testing area on the third floorto have your blood drawn. This is across from the [employer], in the same direction as the [employer] parking garage. You should continue to see your primary care doctor at regular intervals. RESOURCES FOR ADDITIONAL INFORMATION AND SUPPORT We will refer you to a career manager with experience in helping families with memory disorders. Our care consultants are associated with our practice ([facility]/or with the Alzheimer Association. They will contact you in the next 7-10 days. Additional resources that you might find helpful: Information and services: Alzheimer's Association of [place] Chapter: ; (toll free); http://www.alz.org [employer] [phone] https://memorycarehs.org [facility] Agency on Aging (serving [facility]) http://[facility].[place].org/government/hslaaa.html [facility] Agency on Aging (serving [place], [facility] and [facility] http://www.[facility] hospitalaaa.org Lewy Body Dementia Association: (toll free); http://www.LBDA.org Association for Frontotemporal Dementias: (toll free); http://www.ftd-picks.org Counseling/psychological support: [facility]- provides counseling and help with the aging and ailments of our loved ones. They may be able to provide counseling in your home as well as in their office and services may be covered by Medicare. [address], [place] [address] or [email or web address]. Website: http://My [employer]/services/raigai-qvqf-iuueakjd/ [employer], Cognitive Stimulation Through Activity at the [place] [employer]. [address] [facility] [address] [place], [place] [address] http://www.[employer]/project/szrn-pj-rkiqoh/ Geriatric Electrical Engineering Teacher: [facility] [phone] ext. 1 www.[employer] Decision Point consulting, Ms. Vianca Cuellar, https://www.decisionpointconsulting.org/ Casandra Alejandra with [employer] [facility], Certified Web Specialist, [address], [address] [address]. , fax: [phone]. 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 [facility] ESTABLISHED PATIENT FOLLOW-UP VISIT Migel Khalil PA-C (Physician Data Librarian) [employer] Department of Neurology Patient Name: MIRELLA ORANTES Medical Record Number (MRN): [id number] Date of (): 1950 Encounter Date: 09/25/2023 Primary Care Practitioner: Thi Yadav MD CHIEF COMPLAINT Ms. Orantes returns today for follow-up concerning her diagnosis of (R68.89) Forgetfulness (primary encounter diagnosis) (F41.1) Generalized anxiety disorder Plan: Ambulatory referral to Psychiatry HISTORY OF PRESENT ILLNESS Ms. Orantes is a 72 y.o. right handed lady with a PMHx including SLE, stroke, TGA, type 2 DM, AZUL on CPAP, paroxysmal A fib and benign essential tremor who [facility] to the [facility] accompanied by her of 54 years who serves as the Collateral Source (CS). Ms. Orantes lives with herspouse, in their private home. Their son and grandson live with them. Cognitive History/Review of past visits: -IOV Dr. Cano 07/18/2022- Ms. Mirella Orantes is a 71 y.o. 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 Over the last 2 years, she has developed very mild difficulty with recent memory but also on exam has sometrouble with executive function and calculations. Her clinical dementia rating (CDR) score is a 0.5or very mildly impaired. Given the relatively non-progressive nature of the memory impairment but also the difficulty with calculations and speed of processing, it seems that vascular causes may be relevant here. It is also possible that she is developing the earliest clinical manifestations of Alzh iemer's disease. -followed by Dr. Gautam (stroke) and Dr. Mirza (neuromuscular) -extensive med list Today's visit: Since our last assessment, Ms. Lainezs memory has been stable. Currently she has no difficulty managing medications. She does not require assistance managing appointments. She is not reliable in recalling details of recent events. She will sometimes repeat questions, stories and statements, this isnot consistent. She usually knows the day of the week, month and year. She does not have difficultywith time relationships. She is able to navigate in familiar and unfamiliar areas. She needs the GPS more, she can use it well. She does not wander. Judgment and problem solving abilities are still good, but not as good as before. He took over the bills because she was stressed, she was not making a ny mistakes and he feels she could still pay them if she needed. He thinks she could fall for scams, but hasn't. She can calcualte the tip just fine, she could balace a checkbook. She is appropriate in social situations. She can forget an item at the grocery store, inconsistent. She has been more dependent on shopping lists. She is as active as ever in the community. 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 She has not lost interest. She drives without difficulty. At home, she is able to manage simple chores (e.g., washing the dishes, making her bed, and light cleaning). She's still very meticulous about her house. She worries about the house not being pristine when people come over, not new. She is able to cook. A few times she has forgotten ingredients but she remembers within minutes that she forgot and corrects herself. 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 She triesto bake and she tries to babysit all 3 of her grandkids at the same time, can be distracting for her. Does a great job babysitting and taking care of the grandkids, a lot of responsibility. She is Surinamese, watches Surinamese Somaap operas and recalls episodes/series and can tell CS about them. She has always been someone who has too much on her mind , always multi-tasking, with the tendency to become flustered and forgetful. Per CS, she googles diseases online and worries about them. Her grandkids have health conditions that are well-controlled but she is very hyper-fixated on them/worries constantly about their health. She is able to manage routine home maintenance. 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 She has no difficulty using technology, including the television remote, cell phone, and computer. Sometimes she has a little difficulty with her ipad or iphone. She had some trouble with GPS today. She is fully capable of self care. In general health is fair ADDITIONAL SAFETY/CAREGIVING CONCERNS: Is She currently driving? Yes If yes, are there concerns about driving safety? No Who supervises medications? Patient supervises themselves. Are there firearms in the home? No Have there been any recent (in the past 6 months) falls? No hospitalizations and/or major changes in their physical health since their most recent [facility] visit. She is fully independent and does not require a caregiver. Depression was assessed by administering the Geriatric Depression Scale; this was reviewed in psychometric package. Also, the CS reports that mood is poor. She endorses 6/8 items on the GDS today- felt sad, depressed- lost appetite- lost weight- felt tired- had to be moving all the time- feels guilty more specifically like she doesn't do enough. On direct questioning, Ms. Orantes states that memory is okay. She states that mood is poor. Endorsesanxiousness and worry. See GDS. Behavioral changes were assessed by administering the NPI-Q (Neuropsychiatric Inventory Questionnaire) to the CS: Delusions: absent Hallucinations: absent Agitation or Aggresion: absent Depressed Mood: present- she is now taking more Paxil... Anxiety: present, she has always been someone who has to be constantly moving or doing something and it's gotten worse Elation or Euphoria: absent Apathy or Indifference: present- a little bit -things that would bother her a little bit more don't as much anymore Disinhibition: absent Irritability or lability: present- when she forgets things she's quick to get upset Motor: absent Nighttime behaviors/Sleep disturbance: problems with pain in her legs at night. Appetite or eating issues/weight loss or gain: eating a little less, no weight loss. Doesn't drink enough water. ACTIVE PROBLEMS Patient Active Problem List Diagnosis Systemic lupus erythematosus ([facility]) ([facility]) Gastroesophageal reflux disease Tremor Osteopenia Moderate asthma with acute exacerbation Anxiety state BMI 28.0-28.9,adult Late, effect, cerebrovascular disease Borderline diabetes mellitus Osteoarthritis Restless legs Obstructive sleep apnea syndrome Obesity with body mass index 30 or greater Patent foramen ovale Benign paroxysmal positional vertigo of left ear Paroxysmal atrial fibrillation ([facility]) ([facility]) Other hyperlipidemia History of arterial ischemic stroke Epigastric abdominal pain CAD (coronary artery disease) Heart failure with preserved ejection fraction ([facility]) ([facility]) 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 ([facility]) ([facility]) Neuropathy ([facility]) Annual physical exam Hypertensive heart disease with chronic systolic congestive heart failure ([facility]) ([facility]) Tachycardia Dyspepsia Trigger finger of right thumb Benign essential tremor Forgetfulness Mild cognitive impairment PAST MEDICAL HISTORY Past Medical History: Diagnosis Date Asthma CAD (coronary artery disease) Cerebrovascular accident (CVA) ([facility]) Stroke CHF (congestive heart failure) (CMS/HCC) ([facility]) GERD (gastroesophageal reflux disease) Heart murmur HX OTHER MEDICAL 2008 TIA / transient global amnesia Hyperlipidemia Hypertension Irritable bowel syndrome (IBS) Lupus (CMS/HCC) ([facility]) PFO (patent foramen ovale) Sleep apnea TIA (transient ischemic attack) Past Surgical History: Procedure Laterality Date APPENDECTOMY 1974 BILATERAL OOPHORECTOMY 1974 SECTION 1974 COLONOSCOPY 2019 HYSTERECTOMY TONSILLECTOMY/ADENOIDECTOMY 1956 As a child UPPER GASTROINTESTINAL ENDOSCOPY 2019 ALLERGIES Allergies Allergen Reactions Latex Rash Sulfa (Sulfonamide Antibiotics) Swelling Levofloxacin Headache and Nausea only Nitrofurantoin Headache MEDICATIONS Current Outpatient Medications: albuterol HFA (PROVENTIL HFA,VENTOLIN HFA,PROAIR HFA) 90 mcg/actuation inhaler, Inhale 90 puffs, Disp: , Rfl: ascorbic acid (VITAMIN C) 1,000 mg tablet, Take 1 tablet (1,000 mg total) by mouth daily, Disp: , Rfl: atorvastatin (LIPITOR) 80 mg tablet, Take 1 tablet (80 mg total) by mouth daily, Disp: , Rfl: Breo Ellipta 100-25 mcg/dose diskus inhaler, INHALE 1 PUFF INTO THE LUNGS DAILY. RINSE AND SPIT AFTER USE, Disp: , Rfl: calcium carbonate (OS-LEELA) 1,500 [...] mouth every morning), Disp: 0, Rfl: 0 furosemide (LASIX) 20 mg tablet, [...] EVERY EVENING, Disp: 360 tablet, Rfl: 3 pregabalin (LYRICA) 75 mg capsule, Take 1 capsule (75 mg total) by mouth 2 (two) times a day, Disp:60 capsule, Rfl: 2 sucralfate (CARAFATE) 1 gram tablet, , Disp: , Rfl: triamcinolone (KENALOG) 0.1 % cream, Apply topically 2 (two) times a day APPLY TO AFFECTED AREA, Disp: , Rfl: dicyclomine (BENTYL) 10 mg capsule, , Disp: , Rfl: Eliquis 5 mg tablet, TAKE 1 TABLET BY MOUTH TWICE A DAY, Disp: 180 tablet, Rfl: 0 empagliflozin (JARDIANCE) 10 mg tablet, Take 1 [...] tab daily), Disp: 90 tablet, Rfl: 0 FAMILY & SOCIAL HISTORY Family History Problem Relation Age of Onset Coronary artery disease Mother Coronary artery disease; Heart attack Mother 61 heart attack; Heart disease Mother Family history of cardiac disorder - (Added by TW Conv) Asthma Father 82 Asthma; /Asthma; Tuberculosis Father Tuberculosis; Asthma Brother Asthma; Diabetes Brother Diabetes mellitus; Asthma Sister Asthma; Diabetes Sister Diabetes mellitus; Anesthesia problems Neg Hx Social History Tobacco Use Smoking status: Never Smokeless tobacco: Never Substance and Sexual Activity Drug use: No Sexual activity: Not on file Alcohol Use: Not on file REVIEW OF SYSTEMS Pertinent positives and negatives were recorded in HPI. All other systems negative. Neurological ROS: positive for - tremor negative for - bowel and bladder control changes, confusion, dizziness, gait disturbance, headaches, impaired coordination/balance, numbness/tingling, seizures, speech problems, visual changes, or weakness PHYSICAL EXAMINATION BP 103/67 (BP Location: Left arm, Patient Position: Sitting) Pulse 85 Temp 36.4 ??C (97.6 ??F) (Temporal) Ht 147.3 cm (4' 9.99 ) Wt 64.3 kg (141 lb 12.8 oz) LMP (LMP Unknown) BMI 29.64 kg/m?? The patient appeared of average build and of stated age. She was dressed appropriately, and behavednormally throughout the interview, with euthymic affect and good conversational skills. No sensory intrusions / misperceptions were noted (i.e., no delusions and/or hallucinations). Neurological exam: Visual madrigal were full with no extinction on double simultaneous stimulation. Pupils were equal, round and reactive to light without relative afferent pupillary defect. Extraocular movements were full with normal smooth pursuit and saccadic eye movements. Facial sensation was intact in all three divisions of the trigeminal nerve. Facial movement was symmetric. Hearing was intact. Palate elevation was symmetric. Shoulder shrug and head turning were symmetric. Tongue protrusion was midline. Motor exam revealed normal bulk, tone and strength throughout. Fine finger movements were symmetric. There was no pronator drift. Pzdxvj-oqhx-eltxil testing were normal. No bradykinesia was detected. Action tremor BUE. Reflexes were symmetric at the biceps, triceps, brachioradialis and knees. Ankle jerks were present. Sensation was intact to light-touch; no extinction was noted with double-simultaneous stimulation. Gait was normal, including tandem gait.. Romberg was absent. The patient was fluent throughout the interview and examination, complying with four-steps of a four-step command. Confrontational naming was intact to low- frequency words. Repetition was preserved..The details of a recent event were recalled very well. She recalled 5/5 items on the Adam Brown memory phrase and 3/3 items on delayed recall testing on the MMSE. The patient incorrectly calculated the number of quarters in $6.75. The patient correctly performed serial subtractions (3's). She was able to draw a clock, and indicate the correct time. She was able to copy intersecting pentagons. Shedemonstrated good insight concerning the purpose for today's visit. COGNITIVE TESTING REPORT Please see neurobehavioral exam results (below) and summary sheet in the chart for test scores. On formal neurobehavioral testing, which took from 15:42 h to 16:08 h, scores were in the normal range on tests of semantic memory ([place] Naming, verbal fluency). Scores were in the normal range on tests of episodic memory (word list memory task, word list recall, logical memory). Scores were in the normal on tests of speeded psychomotor performance (trailmaking A and B, digit symbol). On more global tests, MMSE was 30/30 and Short Blessed was 0. These findings are consistent with normal performance, and could be seen in, but are not specific for normal cognition. Test scores within the normal range are consistent with normal cognition, but could remain normal in the presence of a mild dementia--particularly in highly functioning, highly educated individuals. [facility] [place] Test Results 07/18/2022 1:00 PM [facility] [place]al [place] Exam Results Verbal Fluency Total Score 14 [place] Naming (15 item) Total Score 15 MMSE Score 28 Word List Memory Task 15 Word List Recall 6 Short Blessed Total Score 8 Logical Memory Total Score 10 Trails A - Seconds to complete 38 Trails A - Errors 0 Trails B - Seconds to complete 180 Trails B - Errors 3 Total Score (out of 90) 27 Digit Symbol Errors 0 Clinical Dementia Rating 07/23/2022 7:00 AM 10/06/2023 7:00 AM [facility] CDR/DIAGNOSIS NEW Memory 0.5 0 Orientation 0 0 Judgement & Problem Solving 0.5 0.5 Community Affairs 0 0 Home & Hobbies 0 0 Personal Care 0 0 Global Score 0.5 0 Sum of Boxes 1 0.5 Year of Onset 2019 Alert for Potential Transmissible Disorders No Non-AD Dementia Primary Vascular Dementia Cerebrovascular Disease Remote Mood disorder (any type) Active ADDITIONAL SUMMARY OF RELEVANT MEDICAL RECORDS/ TESTING Lab Results Component Value Date VITB12 542 08/30/2022 MTHMLNC 0.26 08/30/2022 Lab Results Component Value Date TSH 2.04 08/30/2022 Lab Results Component Value Date WBC 5.0 08/30/2022 HGB 13.4 08/30/2022 HCT 42.5 08/30/2022 MCV 91.0 08/30/2022 LABPLAT 243 08/30/2022 Lab Results Component Value Date GLUCOSE 86 06/21/2023 CALCIUM 9.5 06/21/2023 SODIUM 143 08/30/2022 POTASSIUM 4.3 08/30/2022 CO2 28 06/21/2023 CHLORIDE 104 08/30/2022 BUNSER 18 08/30/2022 CREATININE 0.76 06/21/2023 Lab Results Component Value Date ALT 27 08/30/2022 AST 31 08/30/2022 ALKPHOS 85 08/30/2022 BILITOT 0.6 08/30/2022 DIAGNOSIS AND ASSESSMENT Ms. Orantes is a 72 y.o. lady without a family history of dementia, who presents with a 3 year history of inconsistent memory difficulty. The pattern of decline, findings on neurological examination, psychometric test results and my neurobehavioral examination confirm mostly subjective cognitive decline with improvements in objective testing compared to initial visit (July 2022.) Inconsistent impairment in memory and executive function/distractibility may be sequelae of vascular events but most notably seem to be exacerbated by excessive worrying and stress. CS endorses P to have a life-long struggle with anxiety, restlessness and feelings of inadequacy. CS does endorse anxiety has been worse now that she is responsible for her three grandchildren with health problems. Her PCP has increased her Paxil for this reason. The most likely etiologic cause of her inconsistent memory and thinking difficulty is underlying mood disorder and vascular disease with potential contribution from anticholinergic antidepressant and other psychotropic medications. Other diagnostic considerations include mixed vascular-Alzheimer disease. However- there has been no decline in function, she remains productive as ever and her objective testing today shows improvement compared to last visit with perfect scores on both MMSE and Short Blessed. She endorsed 6/8 items on GDS today. I believe Ms. Orantes would benefit from psychiatry services and/or counseling. At the time of this visit, it is my opinionthat she is able to make independent medical decisions. We will continue following her clinically, with sooner follow-up if concerns of consistent cognitive decline arises. PLAN 1. Forgetfulness 2. Generalized anxiety disorder 1. Diagnostic evaluation: A. Laboratory studies are reviewed and are complete. No further testing is indicated at this time. B. Neuroimaging studies are reviewed and are complete. No further testing is indicated at this time. 2. Treatment: A. Referral to geriatric psychiatry- recommend alternative for Paxil- suggest SSRI with less anticholinergic burden such as escitalopram, citalopram or sertraline. B. Emphasized importance of nightly use of CPAP machine for treatment of AZUL. 3. Activity: I recommended that Ms. Orantes remain physically active and socially engaged. Ms. Orantes and the CS were referred to the Alzheimer???s Association for additional educational resources. A. Highly recommended regular exercise- patient plans to join [employer]. 4. Safety: No safety concerns were identified today. Ms. Orantes continues to drive. No concerns pertaining to driving safety are identified today. 5. Follow-up: We will see her again in 1 year. --- I spent 15 minutes interpreting the results of standardized neuropsychological testing, integratingthese results into clinical decision making and treatment plan, providing interactive feedback to the patient and family member(s)/caregiver(s) and report, and documenting this in the patient's chart. In addition to the interpretation time listed above (and exclusive of that time), I spent 70 minutes on the day of the encounter on activities related to the visit including preparing to see the patient by reviewing labs, tests and medical records, time spent [id number] with the patient and family during the visit, performing counselling and education, placing orders and documenting the visit in the patient's EHR. So Alcaraz, [facility] CENTERJose Miguel, GIANNA Physician Data Librarian [facility]-Department of Neurology [facility] Detailed plan and patient/caregiver education and referrals are in AVS copied below: Patient Instructions [facility] - VISIT SUMMARY & PATIENT INSTRUCTIONS For Ms. Mirella Orantes (: 1950) [facility], Department of Neurology Clinic (Nurse Mia Kirk) Who came with you to clinic today: Providers today were: So Alcaraz PA-C FEEDBACK/DIAGNOSTIC ISSUES REGARDING BRAIN HEALTH Thank you for coming to the [facility] today and for allowing us to participate in your medical care. Based on information and testing that we reviewed today, including the results of your in-office testing (including physical examination), we think that the most likely cause of your memory and thinking concerns is inconsistent memory and thinking problems due to mood disorder. Other possible causes of the memory changes could be the very early stages of Alzheimer disease but this is very unlikely at this time. Memory and thinking test scores today: Your test scores today were: MMSE (Mini Mental Status Exam): A perfect score on this test is 30. A score of of between 27-30 is considered normal. A score of 24-26 is considered mildly impaired. A score of 20-23 is impaired. Scores below 20 show moderate impairment and 10 or below shows severe impairment. Short Blessed Test: A perfect score on the Short Blessed Test is a 0 (higher score means poorer performance). A score of 4 or below is mild impairment. Scores of 5 or more indicate impairment. The maximum (worst) score is 28. RECOMMENDATIONS FOR FURTHER TESTING We have requested that the following studies be performed: Laboratory (Blood tests): We reviewed your lab results today and no additional lab tests are needed. Imaging Studies: no additional neuroimaging is required at this time Other testing: no additional testing is indicated at this time Referrals to other providers: I will request that an outpatient clinic visit be scheduled with the following service(s): Geriatric Psychiatry Discuss with your primary care doctor: I have recommended that you follow-up with your primary carepractitioner to discuss control of vascular risk factors (e.g., high blood pressure, high cholesterol, high blood glucose) Future testing to consider for people who may have Alzheimer disease: There are tests available that can tell us if you have signs of Alzheimer???s disease in your brain. These tests may not change the treatment available to you, however. The tests that are available include a PET imaging study called an Amyvid scan, a special spinal fluid test called ADEVL and a blood test called PreCivity. Your insurance will probably not cover the imaging scan or the blood test; insurance sometimes covers the spinal fluid test. You your family can decide if you are interested in learning more about these tests. After you have had time to think about this, if you would like to learn more or schedule one of these tests please call the clinic nurse at [phone] or contact your physician via [employer]. MEDICATIONS DISCUSSED TODAY No changes to your medications were recommended today. We do recommend you work with your primary care physician and psychiatry on discontinuing medications that are no longer needed. We also recommend switching to an antidepressant with less anticholinergic effects. Paxil is the worst of these meds. Medications to slow progression of memory loss: None of these medications are indicated at this time. We discussed side effects including Nausea/Vomiting, Diarrhea, Headaches, Confusion, Muscle Cramps,Nightmares, Elevated blood sugars, Insomnia, Sedation or sleepiness. Disease modifying medications: We discussed recently approved disease modifying medications such aslecanemab/Leqembi. We Medications that may affect your memory: You are taking some medications that may be slowing down your memory and thinking. Medications may have stronger effects as you get older. We suggest that youreduce or stop taking these medications. You may need to get off some of these medications slowly over time. You should talk to your primary care doctor or psychiatrist about reducing these medications. ADDITIONAL RECOMMENDATIONS/RESOURCES Nutrition: We recommend that you eat a balanced diet, including fruits and vegetables daily and regular servings of fish. Alcohol intake: Alcohol can affect your memory and thinking and may increase our risk of falls or car accidents. We recommend that you limit alcohol intake to no more than 7 drinks per week, and no more than 3 drinks in one day. A drink is 1 12-ounce can or bottle of regular beer, doc, or wine cooler, or one 5 ounce glass of wine, or one 1.5 ounce shot of liquor. Activity: We recommend that you engage in daily physical activity such as walking or stretching. Ifyou have not already done so, you should consider developing a regular exercise regimen. We recommend you do things that stimulate your mind, such as puzzles, books, working on hobbies, visiting with friends and relatives or engaging in other social and community activities. Sleep: Sleep can have a big effect on your memory and thinking. Make sure you get a good night's sleep every night. If you have trouble sleeping, make sure you follow these rules for basic sleep hygiene: -Get up at the same time every morning, regardless of how little or how poorly you sleep. -No napping during the day time. If naps are really necessary, nap for less than an hour and only nap before 3 PM. -Have a regular calm down time before going to bed. Do not work right up until bedtime. -Have a regular exercise schedule, as exercise helps consolidate sleep. -No caffeine for 6 hours before bedtime. -No watching T.V. or using the computer in your bedroom or at bedtime. -If you are not able to fall asleep after 20 minutes, get out of bed and do a relaxing activity fora few minutes. Driving: No concerns about driving safety were raised at today's visit. Safety: No safety concerns were discussed today. Legal: No legal concerns were discussed today. You may wish to consult an corporate attorney regarding these matters. Level of Care Recommendation: You can continue to live independently with support from your family. RESEARCH STUDIES Many people have problems with their memory so it is very important that we find better ways to diagnose and treat people with memory disorders. You can help by participating in research studies. There are many different types of research studies. You and your family and/or caregivers can decide ifyou want to participate in research and what type of research study would be best for you. As a patient at the [facility], you or your caregivers may be asked to sign a consentform so that some information about you may be included in the [facility] Data Repository. This is a list of people who have been seen in our clinic and can be used to help researchers at [facility] find people who might be interested in participating in research studies. If you signed this form, you might be contacted by some of these researchers to see if you might be interested in participating in a research project. You and family can decide if you want to hear moreabout these projects and if you would like to participate. Signing the [facility] Data Repository consent form does not mean that you are agreeing to be in a research project; it only means the investigators can contact you to see if you might be interested in research projects. If you are interested in participating in research studies, consider the following opportunities: Participation in research studies was not discussed today. Patients and their care partners (age 50 and up) are invited to join the APT Webstudy, a national study sponsored by the National [place] of Aging, one of the National Institutes of Health. The APTWebstudy is an online study where you can learn more about dementia and brain health. Participants take memory tests and track their thinking online; you can use a computer, tablet or smartphone. As part of the APT webstudy, you may learn about other research opportunities, including clinical trials that may help us prevent Alzheimer disease and other dementias. To lean more, go online to https://www.aptwebstudy.org/welcome. FOLLOW-UP You should return to see Ms. Juany De Leon NP or Ms. Fatimah Hensley NP or PITO Cueva in 6 months. You can [phone] if you have questions about scheduling. If we ordered blood tests today, please stop by the [facility] patient testing area on the third floorto have your blood drawn. This is across from the [employer], in the same direction as the [employer] parking garage. You should continue to see your primary care doctor at regular intervals. RESOURCES FOR ADDITIONAL INFORMATION AND SUPPORT We will refer you to a career manager with experience in helping families with memory disorders. Our care consultants are associated with our practice ([facility]and/or with the Alzheimer Association. They will contact you in the next 7-10 days. Additional resources that you might find helpful: Information and services: Alzheimer's Association of [place] Chapter: ; (toll free); http://www.alz.org [facility] [employer] [employer] [phone] https://memorycarehs.org [facility] Agency on Aging (serving [facility]) http://[facility].[place].org/government/hslaaa.html [facility] Agency on Aging (serving [place], [facility] and [facility] http://www.[facility] hospitalaaa.org Lewy Body Dementia Association: (toll free); http://www.LBDA.org Association for Frontotemporal Dementias: (toll free); http://www.ftd-picks.org Counseling/psychological support: [facility] [place] provides counseling and help with the aging and ailments of our loved ones. They may be able to provide counseling in your home as well as in their office and services may be covered by Medicare. [address], [place] [address] or [email or web address]. Website: http://[employer]/services/unkxxs-vizm-stqqtyah/ [employer], Cognitive Stimulation Through Activity at the [place] [employer]. [address] [place] [address] http://www.[employer]/project/aret-nf-faqmkj/ Geriatric Electrical Engineering Teacher: [facility] [phone] ext. 1 www.[employer], Valentine Vianca Alisa, https://www.decisionpointconsulting.org/ Casandra Alejandra with [employer], Certified Web Specialist, [address], [address], [place] [address]. , fax: [phone]. 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 encounter Plan of Treatment Scheduled Referrals Name Type Priority Associated Diagnoses Order Schedule Ambulatory referral to Psychiatry Outpatient Referral Routine Generalized anxiety disorder Expected: 10/09/2023 (Approximate), Expires: 09/25/2024 documented as of this encounter Visit Diagnoses Diagnosis Forgetfulness- Primary Other general symptoms Generalized anxiety disorder documented in this encounter Discontinued Medications Medication Sig Discontinue Reason Start Date End Da te abatacept/maltose (ORENCIA, WITH MALTOSE, IV) Infuse into a venous catheter every 30 (thirty) days Therapy completed 09/25/2023 alosetron (LOTRONEX) 1 mg tablet Take 1 mg by mouth as needed Therapy completed 01/10/2021 09/25/2023 amoxicillin 500 mg capsule TAKE 1 CAPSULE BY MOUTH EVERY 8 HOURS UNTIL FINISHED Therapy completed 07/10/2022 09/25/2023 Arnuity Ellipta 100 mcg/actuation inhaler INHALE 1 PUFF INTO THE LUNGS DAILY. RINSE AND SPIT AFTER Therapy completed 05/15/2022 09/25/2023 atorvastatin (LIPITOR) 80 mg tablet TAKE 1 TABLET BY MOUTH EVERY DAY Therapy completed 09/18/2023 09/25/2023 azelastine (ASTELIN) 137 mcg (0.1 %) nasal spray INSTILL 1 SPRAY INTO EACH NOSTRIL DIRECTED 2 TIMES PER DAY Therapy completed 01/10/2021 09/25/2023 bisoprolol (ZEBETA) 5 mg tablet Take 1 tablet (5 mg total) by mouth daily Therapy completed 06/21/2023 09/25/2023 dexlansoprazole (DEXILANT) 60 mg capsule Take 60 mg by mouth 2 (two) times a day Therapy completed 09/25/2023 hydroxychloroquine (PLAQUENIL) 200 mg tablet Take 1 tablet (200 mg total) by mouth 2 (two) times a day. Therapy completed 05/14/2018 09/25/2023 methscopolamine (PAMINE FORTE) 5 mg tablet Take 5 mg by mouth daily Therapy completed 05/19/2021 09/25/2023 methylPREDNISolone (MEDROL DOSEPACK) 4 mg Dosepack Take 1 tablet (4 mg total) by mouth Therapy completed 07/16/2022 09/25/2023 ondansetron ODT (ZOFRAN-ODT) 4 mg disintegrating tablet Therapy completed 11/02/2019 09/25/19 documented as of this encounter Historical Medications * This list may reflect changes made after this encounter. triamcinolone (KENALOG) 0.1 % cream Apply topically 2 (two) times a day APPLY TO AFFECTED AREA 09/19/2023 atorvastatin (LIPITOR) 80 mg tablet Take 1 tablet (80 mg total) by mouth daily added in this encounter Care Teams Litigation Claim Representative Relationship Specialty [place] [id number] [address] PCP - General Family Medicine 02/19/22 07/19/24 [place] [id number] [address] Rheumatology 07/15/17 documented as of this encounter
--- OUTSIDE RECORDS SUMMARY | 2024-08-29 10:15 | XMS_ITS | Encounter Summary ---
Author Organization [facility] Address [address] [place] [address] Phone Care Team Providers Care Telephone Assembler Name Role Phone Gladis Song MD Unavailable Emily Jordan MD Primary Care Provider [phone] Reason for Visit * Reason Onset Date Comments Scheduling Appointments 08/14/2024 Encounter Details Date Type Department Care Team (Late st Contact Info) Description 08/14/2024 Telephone [facility] Scheduling [address] [place] [address] Nikko Carter MD PhD [address] [place] [address] Scheduling Appointments Social History Tobacco Use Types Packs/Day Years [...] on file Legal Sex Female 12:11 AM 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 Call back number: [phone]. K PULLER * Telephone Encounter - Bigg, Archana - 08/14/2024 3:34 PM CST Left voicemail to confirm appointment with patient. Call back number: [phone]. K PULLER documented in this encounter Plan of Treatment Not on file documented as of this encounter Visit Diagnoses Not on filedocumented in this encounter Care Teams Telephone Assembler Relationship Specialty [place] [id number] [address] PCP - General Family Medicine 07/20/24 [place] [address] [address] Rheumatology 07/15/17 documented as of this encounter
--- OUTSIDE RECORDS SUMMARY | 2024-08-29 10:15 | XMS_ITS | Encounter Summary ---
Author Organization [facility] Address [address] [place] [address] Phone Care Team Providers Care Chemical Engineer Name Role Phone Gladis Song MD Unavailable Thi Lugo MD Primary Care Provider [phone] Encounter Details Date Type Department Care Team (Latest Contact Info) Description 07/04/2023 Orders Only [facility] Scanning, Provider [...] on file Legal Sex Female 12:11 AM FSR Gender Identity Not on file Sexual Orientation Not on file Occupation Industry Job Start Date Job End Date Retired Not on file Not on file Not on file documented as of this encounter Plan of Treatment Not on file documented as of this encounter Procedures Procedure Name Priority Date/Time Associated Diagnosis Comments SCAN - LABS 07/04/2023 documented in this encounter Results * SCAN - LABS (07/04/2023) us Provider Scanning Final Result documented in this encounter Visit Diagnoses Not on filedocumented in this encounter Care Teams Chemical Engineer Relationship Specialty [place] [address] [facility] [address] [place] [address] PCP - General Family Medicine 02/19/22 07/19/24 [place] [address] [facility] [address] [place] [address] Rheumatology 07/15/17 documented as of this encounter
--- OUTSIDE RECORDS SUMMARY | 2024-08-29 10:15 | XMS_ITS | Encounter Summary ---
Author Organization [facility] Address [address] [place] [address] Phone Care Team Providers Care Auto Motor Mechanic Name Role Phone Gladis Song MD Unavailable Thi Lugo MD Primary Care Provider [phone] Encounter Details Date Type Department Care Team (Late st Contact Info) Description 05/01/2024 Orders Only [facility] Neuro Muscle [address] 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 Gender Identity Not on file Sexual Orientation [...] (two) times a day 60 capsule 5 05/01/2024 documented in this encounter Plan of Treatment Not on file documented as of this encounter Visit Diagnoses Diagnosis Neuropathy (CMS/HCC) Mononeuritis of unspecified site documented in this encounter Discontinued Medications Medication Sig Discontinue Reason Start Date End Da te pregabalin (LYRICA) 75 mg capsuleIndications:neuro pathic pain Take 1 capsule (75 mg total) by mouth 2 (two) times a day Reorder 08/15/2023 05/01/2024 documented as of this encounter Care Teams Auto Motor Mechanic Relationship Specialty [place] [address] [facility] [address] [place] [address] PCP - General Family Medicine 02/19/22 07/19/24 [place] [address] [facility] [address] [place] [address] Rheumatology 07/15/17 documented as of this encounter
--- OUTSIDE RECORDS SUMMARY | 2024-08-29 10:15 | XMS_ITS | Encounter Summary ---
Author Organization [facility] Address [address] [place] [address] Phone Care Team Providers Care Business Programmer Name Role Phone Gladis Song MD Unavailable Thi Lugo MD Primary Care Provider [phone] Encounter Details Date Type Department Care Team (Late st Contact Info) Description 11/20/2023 Orders Only [facility] Cardiology [address] [facility] Advanced Medicine 8th [place] [address] [place] [address] Judah Duggan MD [address] [place] [address] Abnormal LFTs (Primary Dx); Elevated AST (SGOT) Social History Tobacco Use Types Packs/Day Years [...] on file 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 Gender Identity Not on file Sexual Orientation Not on file Occupation Industry Job Start Date Job End Date Retired Not on file Not on file Not on file documented as of this encounter Plan of Treatment Scheduled Orders Name Type Priority Associated Diagnoses Orde r Schedule Gamma GT Lab Routine Abnormal LFTs Elevated AST (SGOT) Expected: 11/23/2023, Expires: 11/19/2024 documented as of this encounter Visit Diagnoses Diagnosis Abnormal LFTs- Primary Elevated AST (SGOT) documented in this encounter Care Teams Business Programmer Relationship Specialty [place] [address] [facility] [address] [place] [address] PCP - General Family Medicine 02/19/22 07/19/24 [place] [address] [facility] [address] [place] [address] Rheumatology 07/15/17 documented as of this encounter
--- OUTSIDE RECORDS SUMMARY | 2024-08-29 10:15 | XMS_ITS | Encounter Summary ---
Author Organization [facility] Address [address] [place] [address] Phone Care Team Providers Care Senior Analytic Consultant Name Role Phone Gladis Song MD Unavailable Thi Lugo MD Primary Care Provider [phone] Encounter Details Date Type Department Care Team (Late st Contact Info) Description 11/12/2023 Telephone [facility] Cardiology [address] [facility] Advanced Medicine 8th [place] [address] [place] [address] Judah Duggan MD [address] [place] [address] Social History Tobacco Use Types [...] on file 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 Gender Identity Not on file Sexual Orientation Not on file Occupation Industry Job Start Date Job End Date Retired Not on file Not on file Not on file documented as of this encounter Miscellaneous Notes * Telephone Encounter - Dannielle Blackwood RN - 11/12/2023 9:26 AM CDT Lab order mailed to pt * Telephone Encounter - Dannielle Blackwood RN - 11/12/2023 9:25 AM CDT ----- Message from Dannielle Blackwood RN sent at 08/19/2023 2:25 PM POTABLE WATER TREATMENT OPERATOR ----- Mail external lab order ----- Message ----- From: Judah Duggan MD Sent: 08/19/2023 1:49 PM POTABLE WATER TREATMENT OPERATOR To: Preet Duggan [facility] Minor abnormality of LFTs. Please check hepatic panel in 3months documented in this encounter Plan of Treatment Not on file documented as of this encounter Visit Diagnoses Not on filedocumented in this encounter Care Teams Senior Analytic Consultant Relationship Specialty [place] [address] [facility] [address] [place] [address] PCP - General Family Medicine 02/19/22 07/19/24 [place] [address] [facility] [address] [place] [address] Rheumatology 07/15/17 documented as of this encounter
--- OUTSIDE RECORDS SUMMARY | 2024-08-29 10:15 | XMS_ITS | Encounter Summary ---
Author Organization [facility] Address [address] [place] [address] Phone Care Team Providers Care Chute Loader Name Role Phone Gladis Song MD Unavailable Thi Lugo MD Primary Care Provider [phone] Encounter Details Date Type Department Care Team (Late st Contact Info) Description 11/20/2023 Telephone [facility] Cardiology [address] [facility] Advanced Medicine 8th [place] [address] [place] [address] Judah Duggan MD [address] [place] [address] Social History Tobacco Use Types [...] on file 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 F/u lab order mailed to pt. She will complete at [facility] * Telephone Encounter - Dannielle Blackwood RN - 11/20/2023 2:27 PM CDT ----- Message from Judah Duggan MD sent at 11/20/2023 4:11 AM CDT ----- AST remains mildly elevated. Please check GGT(gamma glutamyl transferase) ----- Message ----- From: Dannielle Blackwood RN Sent: 11/19/2023 12:15 PM CDT To: Judah Duggan MD ----- Message ----- From: Annalisa Gautam Sent: 11/19/2023 11:54 AM CDT To: Preet Duggan [facility] documented in this encounter Plan of Treatment Not on file documented as of this encounter Visit Diagnoses Not on filedocumented in this encounter Care Teams Chute Loader Relationship Specialty [place] [address] [facility] [address] [place] [address] PCP - General Family Medicine 02/19/22 07/19/24 [place] [address] [facility] [address] [place] [address] Rheumatology 07/15/17 documented as of this encounter
--- OUTSIDE RECORDS SUMMARY | 2024-08-29 10:15 | XMS_ITS | Encounter Summary ---
Author Organization [facility] Address [address] [place] [address] Phone Care Team Providers Care Nutrition Services Worker Name Role Phone Gladis Song MD Unavailable Thi Lugo MD Primary Care Provider [phone] Encounter Details Date Type Department Care Team (Late st Contact Info) Description 08/19/2023 Telephone [facility] Cardiology [address] 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 Please check hepatic panel in 3months OSITION CLERK documented in this encounter Plan of Treatment Not on file documented as of this encounter Visit Diagnoses Not on filedocumented in this encounter Care Teams Nutrition Services Worker Relationship Specialty [place] [address] [address] PCP - General Family Medicine 02/19/22 07/19/24 [place] [address] [facility] [address] [place] [address] Rheumatology 07/15/17 documented as of this encounter
--- OUTSIDE RECORDS SUMMARY | 2024-08-29 10:15 | XMS_ITS | Encounter Summary ---
Author Organization [facility] Address [address] [place] [address] Phone Care Team Providers Care Cable Armorer Operator Name Role Phone Gladis Song MD Unavailable Thi Lugo MD Primary Care Provider [phone] Reason for Referral * Cardiology (Routine) - Closed Specialty Diagnoses / Procedures Referred By Valerie t Referred To Contact Diagnoses Exertional dyspnea Chest pain, unspecified type Procedures Stress Echo Exercise W Doppler/CF Son Rm MD [address] [place] [address] Phone: tel: fax: [facility] Referral ID Status Reason Start Date Expiration Date Visits Re quested Visits Authorized [id number] Closed 07/14/2024 08/13/2025 1 1 BASTING MACHINE OPERATOR Reason for Visit * Consultation (Routine) - Authorized Specialty Diagnoses / Procedures Referred By Contac t Referred To Contact Cardiology Diagnoses Paroxysmal atrial fibrillation (CMS/HCC) (HCC) Coronary artery disease involving minto heart without angina pectoris, unspecified vessel or lesion type Chronic heart failure with preserved ejection fraction (CMS/HCC) (HCC) Judah Duggan MD Phone: tel: fax: [facility] (All Locations) Referral ID Status Reason Start Date Expiration Date Visits Requested Visits Authorized [id number] Authorized Specialty Services Required 01/10/2024 02/11/2025 12 12 Encounter Details Date Type Department Care Team (Late st Contact Info) Description 07/14/2024 10:00 AM JUMPBASTING MACHINE OPERATOR Office Visit [facility] Cardiology [address] [facility] [address] [place] [address] Son Rm MD [facility] [place] [address] Exertional dyspnea (Primary Dx); Paroxysmal atrial fibrillation (CMS/HCC) (HCC); Chest pain, unspecified type; Coronary artery disease involving minto heart without angina pectoris, unspecified vessel or lesion type; Patent foramen ovale Social History Tobacco Use Types Packs/Day Years [...] on file Legal Sex Female 12:11 AM JUMPBASTING MACHINE OPERATOR Gender Identity Not on file Sexual Orientation Not on file Occupation Industry Job Start Date Job End Date Retired Not on file Not on file Not on file documented as of this encounter Last Filed Vital Signs Vital Sign Reading Time Taken Comments Blood Pressure 106/78 07/14/2024 11:12 AM JUMPBASTING MACHINE OPERATOR Pulse 74 07/14/2024 11:12 AM JUMPBASTING MACHINE OPERATOR Temperature - - Respiratory Rate - - Oxygen Saturation 98% 07/14/2024 11:12 AM JUMPBASTING MACHINE OPERATOR Inhaled Oxygen Concentration - - Weight 62.1 kg (137 lb) 07/14/2024 11:12 AM JUMPBASTING MACHINE OPERATOR Height 154.9 cm (5' 1 ) 07/14/2024 11:12 AM JUMPBASTING MACHINE OPERATOR Body Mass Index 25.89 07/14/2024 11:12 AM JUMPBASTING MACHINE OPERATOR documented in this encounter Patient Instructions * Patient Instructions* Son Rm MD - 07/14/2024 10:00 AM JUMPBASTING MACHINE OPERATOR Set up stress test. BASTING MACHINE OPERATOR documented in this encounter Ordered Prescriptions Prescription Sig Dispense Quantity Refills Last Filled Start Date End Date nitroglycerin (NITROSTAT) 0.4 mg SL tablet May repeat dose every 5 minutes for up to 3 doses total. 25 tablet 3 07/14/2024 bisoprolol (ZEBETA) 5 mg tablet Take 1 tablet (5 mg total) by mouth daily 90 tablet 2 07/14/2024 documented in this encounter Progress Notes * Son Rm MD - 07/14/2024 10:00 AM CST Images from the original note were not included. Cardiovascular Division, [facility] Provider: Son Rm MD Patient Name: Chio Orantes : 1950 Date of Service: 07/14/2024 Referring: Urban HISTORY: Dear Thi Lugo MD, We had the pleasure of seeing Chio Orantes at the [facility] at [facility] in [place]. As you recall, she is a pleasant 73 y.o. female that we follow for possible paroxysmal atrial fibrillation, PFO, recurrent strokes, moderate coronary disease Since her last office visit, she has overall been stabl from a cardiovascular perspective. She denies visits to the hospital or ER. She does report recurrent chest pain symptoms several weeks ago requiring nitro administration which were ligated her symptoms. She does think exertional dyspnea has worsened previously. Tolerating anticoagulation okay without bleeding episodes. Nighttime palpitations are unchanged. She denies , lightheadedness, dizziness, syncope, palpitations, lower extremity edema, orthopnea, PND or claudication. REVIEW OF SYSTEMS Review of systems per HPI and otherwise all other review of systems negative. MEDICATIONS: Outpatient Encounter Medications as of 07/14/2024 Medication Sig Dispense Refill albuterol HFA (PROVENTIL HFA,VENTOLIN HFA,PROAIR HFA) 90 mcg/actuation inhaler Inhale 90 puffs apixaban (Eliquis) 5 mg tablet TAKE 1 TABLET BY MOUTH TWICE A DAY 180 tablet 3 ascorbic acid (VITAMIN C) 1,000 mg tablet [...] BOTH EYES 3 TIMES A DAY calcium carbonate-vitamin D3 1,250mg (500mg elemental) - 5 mcg (200 units) per tablet Take by mouthdaily empagliflozin (Jardiance) 10 mg tablet TAKE 1 TABLET BY MOUTH EVERY DAY 90 tablet 3 fluticasone propionate (FLOVENT HFA) 110 mcg/actuation inhaler Inhale 2 puffs 2 (two) times a day Rinse mouth with water after use. Do not swallow. 2 Inhaler 2 isosorbide mononitrate ER (IMDUR) 30 mg 24 hr tablet TAKE 1 TABLET BY MOUTH EVERY DAY 90 tablet 3 methotrexate 2.5 mg tablet TAKE 6 TABLETS BY MOUTH ONCE A WEEK montelukast (SINGULAIR) 10 mg tablet TAKE 1 TABLET BY MOUTH EVERY DAY AT NIGHT [address] (PROTONIX) 40 mg EC tablet Take 1 tablet (40 mg total) by mouth 2 (two) times a day PARoxetine (PAXIL) 20 mg tablet TAKE 1/2 TABLET BY MOUTH EVERY DAY IN THE MORNING 15 tablet 1 pregabalin (LYRICA) 50 mg capsule Take 1 capsule (50 mg total) by mouth 2 (two) times a day sucralfate (CARAFATE) 1 gram tablet (Patient taking differently: as needed) triamcinolone (KENALOG) 0.1 % cream Apply topically 2 (two) times a day APPLY TO AFFECTED AREA [DISCONTINUED] bisoprolol (ZEBETA) 5 mg tablet TAKE 1 TABLET (5 MG TOTAL) BY MOUTH DAILY. 90 tablet2 [DISCONTINUED] nitroglycerin (NITROSTAT) 0.4 mg SL tablet May repeat dose every 5 minutes for up to3 doses total. 25 tablet 3 bisoprolol (ZEBETA) 5 mg tablet Take 1 tablet (5 mg total) by mouth daily 90 tablet 2 calcium carbonate (OS-LEELA) 1,500 mg (600 mg of elemental calcium) tablet Take 2,000 mg of elementalcalcium by mouth every morning cholecalciferol (VITAMIN D3) 2,000 unit tablet take 1 by Oral route every day (Patient taking differently: Take by mouth every morning) 0 0 dicyclomine (BENTYL) 10 mg capsule (Patient not taking: Reported on 07/14/2024) folic acid (FOLVITE) 1 mg tablet Take 1 tablet (1 mg total) by mouth daily. Take one tab daily (Patient taking differently: Take 1 tablet (1 mg total) by mouth every morning Take one tab daily) 90 tablet 0 furosemide (LASIX) 20 mg tablet TAKE 1 TABLET BY MOUTH EVERY DAY (Patient not taking: Reported on 07/14/2024) 90 tablet 3 gabapentin (NEURONTIN) 100 mg capsule Take 2 capsules (200 mg total) by mouth hydroCHLOROthiazide (HYDRODIURIL) 25 mg tablet TAKE 1 TABLET BY MOUTH EVERY DAY 90 tablet 3 nitroglycerin (NITROSTAT) 0.4 mg SL tablet May repeat dose every 5 minutes for up to 3 doses total.25 tablet 3 potassium chloride ER (Klor-Con M20) 20 mEq CR tablet TAKE 2 TABLETS EVERY MORNING AND 2 TABLETS EVERY EVENING (Patient not taking: Reported on 07/14/2024) 360 tablet 3 pregabalin (LYRICA) 75 mg capsule Take 1 capsule (75 mg total) by mouth 2 (two) times a day (Patient not taking: Reported on 07/14/2024) 60 capsule 5 No facility-administered encounter medications on file as of 07/14/2024. Objective PHYSICAL EXAM BP 106/78 (BP Location: Left arm, Patient Position: Sitting) Pulse 74 Ht 154.9 cm (5' 1 ) Wt 62.1 kg (137 lb) LMP (LMP Unknown) SpO2 98% BMI 25.89 kg/m?? General: Alert, NAD HEENT: EOMI, oropharynx clear Neck: Supple without thyromegaly Lungs: CTAB Cardiac: RRR, normal S1 and S2, no murmurs/rubs/gallops. JVP not elevated, no LE edema. Abdomen: soft, nontender, nondistended, +bowel sounds in all 4 quadrants Extremities: warm, no clubbing/cyanosis Neuro: grossly intact Psych: normal affect, mood, judgment DATA REVIEW: I have comprehensively reviewed prior notes and images directly (when available), labs, imaging andprocedure reports, and records of the patient's past medical, family, and social history that are available in the electronic medical record. Independently reviewed and summarized the above information: DATA: BMP: Lab Results Component Value Date GLUCOSE 86 06/21/2023 BUNSER 18 08/30/2022 CREATININE 0.76 06/21/2023 EGFR 82.2 06/21/2023 BUNCREAT NOT APPLICABLE 09/03/2019 SODIUM 143 08/30/2022 POTASSIUM 4.3 08/30/2022 CHLORIDE 104 08/30/2022 CO2 28 06/21/2023 CALCIUM 9.5 06/21/2023 LFT: Lab Results Component Value Date PROTEIN 6.8 09/03/2019 ALBUMIN 4.4 08/30/2022 GLOBULIN 2.7 07/29/2017 ALBGLBRATIO 1.6 09/03/2019 BILITOT 0.6 08/30/2022 ALKPHOS 85 08/30/2022 AST 31 08/30/2022 ALT 27 08/30/2022 LIPID PROFILE: Lab Results Component Value Date CHOL 125 01/10/2024 HDL 54 01/10/2024 TRIG 54 01/10/2024 LDL 53 06/02/2019 CHOLHDL 2 01/10/2024 NONHDLCHOL 71 01/10/2024 NT PROBNP: No components found for: NT-PROBNP TROPONIN No results found for: TROPIHS HGB: Lab Results Component Value Date HGB 13.4 08/30/2022 HGBA1C: Lab Results Component Value Date HGBA1C 5.9 (H) 12/24/2022 ECG: Assessment/Plan ASSESSMENT & PLAN: Patent foramen ovale Known PFO. Already on anticoagulation due to possible history of atrial fibrillation. No clear documented history of AFib however there was enough of a clinical concern that this was started by her prior scrum coach. She was tolerating this okay without any bleeding episodes. We will keep on for now. CAD (coronary artery disease) Moderate coronary disease with recurrent exertional dyspnea and chest pain symptoms. We will recheck exercise stress echo Thank you for the opportunity to participate in the care of this patient. We will plan to see Ms. Orantes back in clinic in 6 months time or sooner if needed. Son Rm MD, [facility], [facility] Certified Medication Technician Java Xml Developeradministrator pesticide, [facility] BASTING MACHINE OPERATOR documented in this encounter Miscellaneous Notes * Assessment & Plan Note - Son Rm MD - 07/14/2024 11:36 AM CSTAssociated Problem(s): CAD (coronary artery disease) Moderate coronary disease with recurrent exertional dyspnea and chest pain symptoms. We will recheck exercise stress echo BASTING MACHINE OPERATOR * Assessment & Plan Note - Son Rm MD - 07/14/2024 11:36 AM CSTAssociated Problem(s): Patent foramen ovale Known PFO. Already on anticoagulation due to possible history of atrial fibrillation. No clear documented history of AFib however there was enough of a clinical concern that this was started by her prior scrum coach. She was tolerating this okay without any bleeding episodes. We will keep on for now. BASTING MACHINE OPERATOR documented in this encounter Plan of Treatment Not on file documented as of this encounter Results * STRESS ECHO EXERCISE W DOPPLER/CF W CONTRAST (07/17/2024 9:12 AM JUMPBASTING MACHINE OPERATOR) LV EF 60 % CARDIOREPORT Anatomical Region Laterality Modality Ultrasound 07/17/2024 8:45 AM JUMPBASTING MACHINE OPERATOR Narrative 07/17/2024 11:46 AM JUMPBASTING MACHINE OPERATOR Patient name: Chio Orantes Date of test: 07/17/2024 Hospital #: 0 ?Location: [facility] Interpreted by: Merrick Castano MD Paper Hanger: Cindy Suazo RDCS RCCS RN: Ramy Warner RN Reason for Test: Chest Pain, Dyspnea Study quality: Technically good Referring Physician: SON RM MD Contrast Agent: 0.45 ml Definity Administered, (1.05 ml wasted). BASELINE STUDY: Wall Motion Scoring (1=Normal 2=Hypo 3=Akinetic 4=Dyskin./Aneurysm 0=Not visualized) Parasternal Long [place]:MAS=1 BAS=1 MIL=1 MARCY=1 Parasternal Short [place]:MAS=1 MIS=1 VA=1 MIL=1 MAL=1 MA=1 Apical 4 Chambers:=1 MIS=1 BIS=1 BAL=1 MAL=1 AL=1 AC=1 Apical 2 Chambers:AI=1 VA=1 BI=1 BA=1 MA=1 AA=1 AC=1 Ejection Fraction: 60% LV Global Strain: -19% LV Global Function: Normal left ventricular systolic function. Baseline Echo Comments: Normal LV+RV morphology and function, No wall abnormalities. Mild concentric LVH Doppler/CF Comments: No MS, MR, , AR, TS, TR, PS, ND, PA systolic pressure is 20 mmHg. Baseline HR: 69 Baseline BP: 148/88 Conduction Defects: Resting ECG Comments: Normal sinus rhythm, Cannot r/o anterior infarct vs lead placement Medications: eliquis, atorvastatin, bisoprolol, imdur, furosemide, hydrodiuril Meds held: all meds held POST EXERCISE STUDY: Wall Motion Scoring (1=Normal 2=Hypo 3=Akinetic 4=Dyskin./Aneurysm 0=Not visualized) Parasternal Long [place]:MAS=1 BAS=1 MIL=1 MARCY=1 Parasternal Short [place]:MAS=1 MIS=1 VA=1 MIL=1 MAL=1 MA=1 Apical 4 Chambers:=1 MIS=1 BIS=1 BAL=1 MAL=1 AL=1 AC=1 Apical 2 Chambers:AI=1 VA=1 BI=1 BA=1 MA=1 AA=1 AC=1 Peak HR: [...] MD By signing this report, the attending scrum coach certifies that he or she has personally supervised and interpreted the echocardiogram and has reviewed and or edited and agrees with the written comments contained within the report. Procedure Note Merrick Castano MD - 07/17/2024 Patient name: Chio Orantes Date of test: 07/17/2024 Hospital #: 0 Location: [facility] Interpreted by: Merrick Castano MD Paper Hanger: Cindy Suazo [facility] RCCS RN: Ramy Warner RN Reason for Test: Chest Pain, Dyspnea Study quality: Technically good Referring Physician: SON RM MD Contrast Agent: 0.45 ml Definity Administered, (1.05 ml wasted). BASELINE STUDY: Wall Motion Scoring (1=Normal 2=Hypo 3=Akinetic 4=Dyskin./Aneurysm 0=Not visualized) Parasternal Long [place]:MAS=1 BAS=1 MIL=1 MARCY=1 Parasternal Short [place]:MAS=1 MIS=1 VA=1 MIL=1 MAL=1 MA=1 Apical 4 Chambers:=1 MIS=1 BIS=1 BAL=1 MAL=1 AL=1 AC=1 Apical 2 Chambers:AI=1 VA=1 BI=1 BA=1 MA=1 AA=1 AC=1 Ejection Fraction: 60% LV Global Strain: -19% LV Global Function: Normal left ventricular systolic function. Baseline Echo Comments: Normal LV+RV morphology and function, No wall abnormalities. Mild concentric LVH Doppler/CF Comments: No MS, MR, , AR, TS, TR, PS, ND, PA systolic pressure is 20 mmHg. Baseline HR: 69 Baseline BP: 148/88 Conduction Defects: Resting ECG Comments: Normal sinus rhythm, Cannot r/o anterior infarct vs lead placement Medications: eliquis, atorvastatin, bisoprolol, imdur, furosemide, hydrodiuril Meds held: all meds held POST EXERCISE STUDY: Wall Motion Scoring (1=Normal 2=Hypo 3=Akinetic 4=Dyskin./Aneurysm 0=Not visualized) Parasternal Long [place]:MAS=1 BAS=1 MIL=1 MARCY=1 Parasternal Short [place]:MAS=1 MIS=1 VA=1 MIL=1 MAL=1 MA=1 Apical 4 Chambers:=1 MIS=1 BIS=1 BAL=1 MAL=1 AL=1 AC=1 Apical 2 Chambers:AI=1 VA=1 BI=1 BA=1 MA=1 AA=1 AC=1 Peak HR: [...] MD By signing this report, the attending scrum coach certifies that he or she has personally supervised and interpreted the echocardiogram and has reviewed and or edited and agrees with the written comments contained within the report. Son Rm MD CV ECHO PROCEDURES F inal Result documented in this encounter Visit Diagnoses Diagnosis Exertional dyspnea- Primary Other dyspnea and respiratory abnormality Paroxysmal atrial fibrillation (CMS/HCC) (HCC) Atrial fibrillation Chest pain, unspecified type Coronary artery disease involving minto heart without angina pectoris, unspecified vessel or lesion type Patent foramen ovale Ostium secundum type atrial septal defect Exertional dyspnea Other dyspnea and respiratory abnormality Chest pain, unspecified type documented in this encounter Discontinued Medications Medication Sig Discontinue Reason Start Date End Da te bisoprolol (ZEBETA) 5 mg tablet TAKE 1 TABLET (5 MG TOTAL) BY MOUTH DAILY. Reorder 04/28/2024 07/14/2024 nitroglycerin (NITROSTAT) 0.4 mg SL tablet May repeat dose every 5 minutes for up to 3 doses total. Reorder 05/23/2018 07/14/2024 documented as of this encounter Historical Medications * This list may reflect changes made after this encounter. pregabalin (LYRICA) 50 mg capsule Take 1 capsule (50 mg total) by mouth 2 (two) times a day 06/09/2024 added in this encounter Care Teams Cable Armorer Operator Relationship Specialty [place] [id number] [address] PCP - General Family Medicine 02/19/22 07/19/24 [place] [id number] [address] Rheumatology 07/15/17 documented as of this encounter
--- OUTSIDE RECORDS SUMMARY | 2024-08-29 10:15 | XMS_ITS | Encounter Summary ---
Author Organization [facility] Address [address] [place] [address] Phone Care Team Providers Care Card Painter Name Role Phone Gladis Song MD Unavailable Thi Lugo MD Primary Care Provider [phone] Reason for Visit * Cardiology (Routine) - Closed Specialty Diagnoses / Procedures Referred By Contvannessa t Referred To Contact Diagnoses Exertional dyspnea Chest pain, unspecified type Procedures Stress Echo Exercise W Doppler/CF Son Rm MD [address] [place] [address] Phone: tel: fax: [facility] Referral ID Status Reason Start Date Expiration Date Visits Re quested Visits Authorized [id number] Closed 07/14/2024 08/13/2025 1 1 Encounter Details Date Type Department Care Team (Latest Contact Info) Description 07/17/2024 8:45 AM GAS REFRIGERATOR SERVICER Ancillary Procedure [facility] [address] [facility] [address] [place] [address] Exertional dyspnea; Chest pain, unspecified type Social History Tobacco Use Types Packs/Day Years [...] on file Legal Sex Female 12:11 AM GAS REFRIGERATOR SERVICER Gender Identity Not on file Sexual Orientation Not on file Occupation Industry Job Start Date Job End Date Retired Not on file Not on file Not on file documented as of this encounter Plan of Treatment Not on file documented as of this encounter Procedures Procedure Name Priority Date/Time Associated Diagnosis Comments STRESS ECHO EXERCISE W DOPPLER/CF W CONTRAST Routine 07/17/2024 9:12 AM GAS REFRIGERATOR SERVICER Exertional dyspnea Chest pain, unspecified type documented in this encounter Results * STRESS ECHO EXERCISE W DOPPLER/CF W CONTRAST (07/17/2024 9:12 AM GAS REFRIGERATOR SERVICER) LV EF 60 % CARDIOREPORT Anatomical Region Laterality Modality Ultrasound 07/17/2024 8:45 AM GAS REFRIGERATOR SERVICER Narrative 07/17/2024 11:46 AM GAS REFRIGERATOR SERVICER Patient name: Chio Orantes Date of test: 07/17/2024 Hospital #: 0 ?Location: [facility] Interpreted by: Merrick Castano MD Floral Clerk: Cindy Suazo RDCS RCCS RN: Ramy Warner RN Reason for Test: Chest Pain, Dyspnea Study quality: Technically good Referring Physician: SON RM MD Contrast Agent: 0.45 ml Definity Administered, (1.05 ml wasted). BASELINE STUDY: Wall Motion Scoring (1=Normal 2=Hypo 3=Akinetic 4=Dyskin./Aneurysm 0=Not visualized) Parasternal Long [place]:MAS=1 BAS=1 MIL=1 MARCY=1 Parasternal Short [place]:MAS=1 MIS=1 FL=1 MIL=1 MAL=1 MA=1 Apical 4 Chambers:=1 MIS=1 BIS=1 BAL=1 MAL=1 AL=1 AC=1 Apical 2 Chambers:AI=1 FL=1 BI=1 BA=1 MA=1 AA=1 AC=1 Ejection Fraction: 60% LV Global Strain: -19% LV Global Function: Normal left ventricular systolic function. Baseline Echo Comments: Normal LV+RV morphology and function, No wall abnormalities. Mild concentric LVH Doppler/CF Comments: No MS, MR, , AR, TS, TR, PS, IN, PA systolic pressure is 20 mmHg. Baseline HR: 69 Baseline BP: 148/88 Conduction Defects: Resting ECG Comments: Normal sinus rhythm, Cannot r/o anterior infarct vs lead placement Medications: eliquis, atorvastatin, bisoprolol, imdur, furosemide, hydrodiuril Meds held: all meds held POST EXERCISE STUDY: Wall Motion Scoring (1=Normal 2=Hypo 3=Akinetic 4=Dyskin./Aneurysm 0=Not visualized) Parasternal Long [place]:MAS=1 BAS=1 MIL=1 MARCY=1 Parasternal Short [place]:MAS=1 MIS=1 FL=1 MIL=1 MAL=1 MA=1 Apical 4 Chambers:=1 MIS=1 BIS=1 BAL=1 MAL=1 AL=1 AC=1 Apical 2 Chambers:AI=1 FL=1 BI=1 BA=1 MA=1 AA=1 AC=1 Peak HR: [...] MD By signing this report, the attending obstetrics tech certifies that he or she has personally supervised and interpreted the echocardiogram and has reviewed and or edited and agrees with the written comments contained within the report. Procedure Note Merrick Castano MD - 07/17/2024 Patient name: Chio Orantes Date of test: 07/17/2024 Hospital #: 0 Location: [facility] Interpreted by: Merrick Castano MD Floral Clerk: Cindy Suazo [facility] RCCS RN: Ramy Warner RN Reason for Test: Chest Pain, Dyspnea Study quality: Technically good Referring Physician: SON RM MD Contrast Agent: 0.45 ml Definity Administered, (1.05 ml wasted). BASELINE STUDY: Wall Motion Scoring (1=Normal 2=Hypo 3=Akinetic 4=Dyskin./Aneurysm 0=Not visualized) Parasternal Long [place]:MAS=1 BAS=1 MIL=1 MARCY=1 Parasternal Short [place]:MAS=1 MIS=1 FL=1 MIL=1 MAL=1 MA=1 Apical 4 Chambers:=1 MIS=1 BIS=1 BAL=1 MAL=1 AL=1 AC=1 Apical 2 Chambers:AI=1 FL=1 BI=1 BA=1 MA=1 AA=1 AC=1 Ejection Fraction: 60% LV Global Strain: -19% LV Global Function: Normal left ventricular systolic function. Baseline Echo Comments: Normal LV+RV morphology and function, No wall abnormalities. Mild concentric LVH Doppler/CF Comments: No MS, MR, , AR, TS, TR, PS, IN, PA systolic pressure is 20 mmHg. Baseline HR: 69 Baseline BP: 148/88 Conduction Defects: Resting ECG Comments: Normal sinus rhythm, Cannot r/o anterior infarct vs lead placement Medications: eliquis, atorvastatin, bisoprolol, imdur, furosemide, hydrodiuril Meds held: all meds held POST EXERCISE STUDY: Wall Motion Scoring (1=Normal 2=Hypo 3=Akinetic 4=Dyskin./Aneurysm 0=Not visualized) Parasternal Long [place]:MAS=1 BAS=1 MIL=1 MARCY=1 Parasternal Short [place]:MAS=1 MIS=1 FL=1 MIL=1 MAL=1 MA=1 Apical 4 Chambers:=1 MIS=1 BIS=1 BAL=1 MAL=1 AL=1 AC=1 Apical 2 Chambers:AI=1 FL=1 BI=1 BA=1 MA=1 AA=1 AC=1 Peak HR: [...] MD By signing this report, the attending obstetrics tech certifies that he or she has personally supervised and interpreted the echocardiogram and has reviewed and or edited and agrees with the written comments contained within the report. Son Rm MD CV ECHO PROCEDURES F inal Result documented in this encounter Visit Diagnoses Diagnosis Exertional dyspnea Other dyspnea and respiratory abnormality Chest pain, unspecified type documented in this encounter Administered Medications Inactive Administered Medications - up to 3 most recent administrations Medication Order MAR Action Action Date Dose Rate Site perflutren lipid (DEFINITY) 1.5 mL in sodium chloride 0.9% 10 mL syringe 1-10 mL, intravenous, Once in imaging, contrast, Starting on Sat07/17/24 at 0817, For 1 dose, Intra-Procedure (CV) Contrast Given 07/17/2024 9:12 AM GAS REFRIGERATOR SERVICER 3 mL documented in this encounter Orders Medications Ordered That Tahir ht Not Have Been Administered Count Last Ordered Date First Ordered Date perflutren lipid (DEFINITY) 1.5 mL in sodium chloride 0.9% 10 mL syringe 1 07/17/2024 documented in this encounter Care Teams Card Painter Relationship Specialty [place] [address] [facility] [address] [place] [address] PCP - General Family Medicine 02/19/22 07/19/24 [place] [address] [facility] [address] [place] [address] Rheumatology 07/15/17 documented as of this encounter
--- OUTSIDE RECORDS SUMMARY | 2024-08-29 10:16 | XMS_ITS | Encounter Summary ---
Author Organization [facility] Address [address] [place] [address] Phone Care Team Providers Care Living Advisor Name Role Phone Gladis Song MD Unavailable Thi Lugo MD Primary Care Provider [phone] Reason for Referral * MRI/CAT/PET Scan (Routine) - Closed Specialty Diagnoses / Procedures Referred By Contac t Referred To Contact Radiology Diagnoses Coronary artery disease involving [place] heart without angina pectoris, unspecified vessel or lesion type Procedures CTA Heart and Coronary Arteries W Morphology when Performed Judah Duggan MD Phone: tel: fax: [address] [address] Referral ID Status Reason Start Date Expiration Date Visits Re quested Visits Authorized [id number] Closed 11/30/2022 12/30/2023 1 1 Encounter Details Date Type Department Care Team (Late st Contact Info) Description 11/30/2022 Orders Only [facility] Cardiology [address] [facility] 8th [place] [address] [place] [address] Judah Duggan MD [address] [place] [address] Coronary artery disease involving lone pine heart without angina pectoris, unspecified vessel or lesion type (Primary Dx) Social History Tobacco Use Types [...] on file 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 Three-vessel calcified atherosclerotic disease resulting in up to 40% stenosis in the mid left anterior descending coronary artery. Calcium score 355 2. ??There is a 1.1 cm nodule in the left breast. ??Recommend correlation with mammography 3. ??Tree-in-bud nodules in the right middle lobe may represent an underlying bronchial infection, including atypical mycobacterial infection Dictated by: Rashid Adams MD, PHD The radiology attending physician has personally reviewed this study, and had reviewed and/or edited this written report and agrees with it. Electronically signed by: Gabriel Godoy M.D. Narrative 01/03/2023 1:05 PM CDT EXAMINATION: CORONARY CT ANGIOGRAM HISTORY: Chest pain TECHNIQUE: CT angiography of the coronary arteries was performed after the administration of 75 mL of Optiray 350. Images were also obtained precontrast for the purposes of calcium scoring. The patient's heart rate at the time of the examination were 61 beats per minute. Images were transferred to a 3D workstation for additional post-processing. FINDINGS: The coronary arteries are right system dominant. No anomalous coronary origin or course Right coronary system: There is multifocal calcified atherosclerotic disease throughout the proximal and mid right coronary artery resulting in up to 30% stenosis in the midportion. Left coronary system: Calcified atherosclerotic disease at the origin of the left main coronary artery extending into the ostium resulting in less than 30% stenosis. There is multifocal calcified atherosclerotic disease in the proximal and mid left anterior descending coronary artery. ??This results in up to 40% stenosis in the mid portion of the artery. There is calcified and noncalcified atherosclerotic disease in the mid left circumflex coronary artery resulting in less than 30% stenosis. The calculated calcium score is 355 (total volume 331 mm3). Other findings: There are scattered tree-in-bud nodules in the right middle lobe which may represent infectious or inflammatory process. No pleural effusion or pneumothorax. ??Heart size is normal with no pericardial effusion. ??No mediastinal or hilar lymphadenopathy. There is a 1.1 cm nodule in the left breast seen best on series 8 image 25. ??Upper abdomen is normal. ??No suspicious osseous lesion. Procedure Note Short, Gabriel Patel MD - 01/03/2023 EXAMINATION: CORONARY CT ANGIOGRAM HISTORY: Chest pain TECHNIQUE: CT angiography of the coronary arteries was performed after the administration of 75 mL of Optiray 350. Images were also obtained precontrast for the purposes of calcium scoring. The patient's heart rate at the time of the examination were 61 beats per minute. Images were transferred to a 3D workstation for additional post-processing. FINDINGS: The coronary arteries are right system dominant. No anomalous coronary origin or course Right coronary system: There is multifocal calcified atherosclerotic disease throughout the proximal and mid right coronary artery resulting in up to 30% stenosis in the midportion. Left coronary system: Calcified atherosclerotic disease at the origin of the left main coronary artery extending into the ostium resulting in less than 30% stenosis. There is multifocal calcified atherosclerotic disease in the proximal and mid left anterior descending coronary artery. This results in up to 40% stenosis in the mid portion of the artery. There is calcified and noncalcified atherosclerotic disease in the mid left circumflex coronary artery resulting in less than 30% stenosis. The calculated calcium score is 355 (total volume 331 mm3). Other findings: There are scattered tree-in-bud nodules in the right middle lobe which may represent infectious or inflammatory process. No pleural effusion or pneumothorax. Heart size is normal with no pericardial effusion. No mediastinal or hilar lymphadenopathy. There is a 1.1 cm nodule in the left breast seen best on series 8 image 25. Upper abdomen is normal. No suspicious osseous lesion. IMPRESSION: 1. Three-vessel calcified atherosclerotic disease resulting in up to 40% stenosis in the mid left anterior descending coronary artery. Calcium score 355 2. There is a 1.1 cm nodule in the left breast. Recommend correlation with mammography 3. Tree-in-bud nodules in the right middle lobe may represent an underlying bronchial infection, including atypical mycobacterial infection Dictated by: Rashid Adams MD, PHD The radiology attending physician has personally reviewed this study, and had reviewed and/or edited this written report and agrees with it. Electronically signed by: Gabriel Godoy M.D. Judah Duggan MD IMG CT PROCEDURES Final Result documented in this encounter Visit Diagnoses Diagnosis Coronary artery disease involving lone pine heart without angina pectoris, unspecified vessel or lesion type- Primary Coronary artery disease involving lone pine heart without angina pectoris, unspecified vessel or lesion type documented in this encounter Care Teams Living Advisor Relationship Specialty [place] [address] [facility] [address] [place] [address] PCP - General Family Medicine 02/19/22 07/19/24 [place] [address] [facility] [address] [place] [address] Rheumatology 07/15/17 documented as of this encounter
--- OUTSIDE RECORDS SUMMARY | 2024-08-29 10:16 | XMS_ITS | Encounter Summary ---
Author Organization [facility] Address [address] [place] [address] Phone Care Team Providers Care Food Dehydrator Operator Name Role Phone Gladis Song MD Unavailable Thi Lugo MD Primary Care Provider [phone] Reason for Visit * Reason Onset Date Comments Med Refill 06/17/2023 Encounter Details Date Type Department Care Team (Late st Contact Info) Description 06/17/2023 Telephone [facility] Cardiology [address] [facility] 8th [place] [address] [place] [address] Judah Duggan MD [address] [place] [address] Med Refill Social History Tobacco Use Types Packs/Day Years [...] on file 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 - 06/17/2023 11:27 AM CDT Images from the original note were not included. documented in this encounter Plan of Treatment Not on file documented as of this encounter Visit Diagnoses Not on filedocumented in this encounter Discontinued Medications Medication Sig Discontinue Reason Start Date End Da te bisoprolol (ZEBETA) 5 mg tablet TAKE 1 TABLET BY MOUTH EVERY DAY Reorder 06/12/2022 06/17/2023 documented as of this encounter Care Teams Food Dehydrator Operator Relationship Specialty [place] [id number] [address] PCP - General Family Medicine 02/19/22 07/19/24 [place] [address] [address] Rheumatology 07/15/17 documented as of this encounter
--- OUTSIDE RECORDS SUMMARY | 2024-08-29 10:16 | XMS_ITS | Encounter Summary ---
Author Organization [facility] Address [address] [place] [address] Phone Care Team Providers Care Life Insurance Specialist Name Role Phone Gladis Song MD Unavailable Thi Lugo MD Primary Care Provider [phone] Encounter Details Date Type Department Care Team (Late st Contact Info) Description 06/17/2023 Telephone [facility] Cardiology [address] [facility] 8th [place] [address] [place] [address] Judah Duggan MD [address] [place] [address] Social History Tobacco Use Types [...] on file 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 Villela at [phone]. thanks * Telephone Encounter - Judah Duggan MD - 06/17/2023 1:21 PM CDT NOTE IN epic * Telephone Encounter - Dannielle Blackwood RN - 06/17/2023 11:30 AM CDT Please write note regarding how long pt can hold eliquis * Telephone Encounter - Oneida Prescott - 06/17/2023 11:18 AM CDT Urban Guo with Dr. Villela office called and states pt is having colonoscopy on 06/19 and they would like to know how long she should hold Eliquis. Pt did not take Eliquis today. documented in this encounter Plan of Treatment Not on file documented as of this encounter Visit Diagnoses Not on filedocumented in this encounter Care Teams Life Insurance Specialist Relationship Specialty [place] [address] [facility] [address] [place] [address] PCP - General Family Medicine 02/19/22 07/19/24 [place] [address] [facility] [address] [place] [address] Rheumatology 07/15/17 documented as of this encounter
--- OUTSIDE RECORDS SUMMARY | 2024-08-29 10:16 | XMS_ITS | Encounter Summary ---
Author Organization [facility] Address [address] [place] [address] Care Team Providers Care Staff Genetic Counselor Name Role Phone Gladis Song MD Unavailable Thi Lugo MD Primary Care Provider [phone] Reason for Referral * MRI/CAT/PET Scan (Routine) - Closed Specialty Diagnoses / Procedures Referred By Contac t Referred To Contact Radiology Diagnoses Coronary artery disease involving [place] coronary artery of ak[place] heart with angina pectoris (HCC) Procedures CT-Coronary Fractional Flow [place] (FFR) - Supplemental Following CCTA Judah Duggan MD Phone: tel: fax: [address] [address] Referral ID Status Reason Start Date Expiration Date Visits Re quested Visits Authorized [id number] Closed 01/03/2023 02/02/2024 1 1 Reason for Visit * MRI/CAT/PET Scan (Routine) - Closed Specialty Diagnoses / Procedures Referred By Contac t Referred To Contact Radiology Diagnoses Coronary artery disease involving [place] coronary artery of [place] heart with angina pectoris (HCC) Procedures CT-Coronary Fractional Flow [place] (FFR) - Supplemental Following CCTA Judah Duggan MD Phone: tel: fax: [place] [address] [place] [address] Referral ID Status Reason Start Date Expiration Date Visits Re quested Visits Authorized [id number] Closed 01/03/2023 02/02/2024 1 1 Encounter Details Date Type Department Care Team (Latest Contact Info) Description 01/04/2023 9:00 AM CDT - 01/04/2023 11:59 PM CDT Hospital Encounter [facility] [address] [place] [id number] Coronary artery disease involving [place] coronary artery of ak[place] heart with angina pectoris (HCC) Discharge Disposition: Discharge to home or self [...] on file 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 2 Inhaler 2 03/31/2019 folic acid (FOLVITE) 1 mg tablet Take 1 tablet (1 mg total) by mouth daily. Take one tab daily 90 tablet 05/14/2018 gabapentin (NEURONTIN) 100 mg capsule Take 2 [...] EVERY 8 HOURS UNTIL FINISHED 07/10/2022 4 apixaban (Eliquis) 5 mg tablet Take 1 tablet (5 mg total) by mouth 2 (two) times a day 180 tablet 3 06/22/2022 3 Arnuity Ellipta 100 mcg/actuation inhaler INHALE 1 PUFF INTO THE LUNGS DAILY. RINSE AND SPIT AFTER 05/15/2022 4 atorvastatin (LIPITOR) 80 mg tablet TAKE 1 TABLET BY MOUTH EVERY DAY 90 tablet 3 08/13/2022 3 azelastine (ASTELIN) 137 mcg (0.1 %) nasal spray INSTILL 1 SPRAY INTO EACH NOSTRIL DIRECTED 2 TIMES PER DAY 01/10/2021 4 bisoprolol (ZEBETA) 5 mg tablet TAKE 1 TABLET BY MOUTH EVERY DAY 90 tablet 3 06/12/2022 3 dexlansoprazole (DEXILANT) 60 mg capsule Take 60 mg by mouth 2 (two) times a day 4 furosemide (LASIX) 20 mg tablet Take 1 tablet (20 mg total) by mouth daily 90 tablet 3 06/22/2022 3 hydroxychloroquine (PLAQUENIL) 200 mg tablet Take 1 tablet (200 mg total) by mouth 2 (two) times a day. 180 tablet 05/14/2018 4 isosorbide mononitrate ER (IMDUR) 30 mg 24 hr tablet Take 1 tablet (30 mg total) by mouth daily 30 tablet 11 10/16/2022 3 methscopolamine (PAMINE FORTE) 5 mg tablet Take [...] EVERY EVENING 360 tablet 3 06/22/2022 4 documented as of this encounter Discharge Disposition Disposition Code Departure Means Destination Discharge to home or self care documented in this encounter Plan of Treatment Not on file documented as of this encounter Procedures Procedure Name Priority Date/Time Associated Diagnosis Comments CT CORONARY FRACTIONAL FLOW RESERVE Schedule Routine, Read Routine (OP Routine) 01/04/2023 12:01 PM CDT Coronary artery disease involving [place] coronary artery of ak[place] heart with angina pectoris (HCC) documented in this encounter Results * CT-Coronary Fractional Flow [place] (FFR) - Supplemental Following CCTA (01/04/2023 12:01 PM CDT) Anatomical Region Laterality Modality Chest N/A Computed Tomogra phy 01/04/2023 12:2 1 PM CDT Impressions 01/04/2023 12:21 PM CDT ADDENDUM: Coronary CTA Fractional Flow [place] (FFR) The below FFR CT results are associated with the coronary CTA report at ?? IMPRESSION: FFR CT Results: No hemodynamically significant lesions. ??No lesions with FFR CT 0.8. The maximum anatomical stenosis is located in the mid left anterior descending coronary artery with lesion specific abnormal FFR CT of 0.88. There is a gradual change in FFR from lesion to distal vessel. Recommendation: Consider medical therapy as front-line strategy. Electronically signed by: Jose Ramirez M.D. Narrative Procedure Note Jose Ramirez MD - 01/04/2023 IMPRESSION: ADDENDUM: Coronary CTA Fractional Flow [place] (FFR) The below FFR CT results are associated with the coronary CTA report at IMPRESSION: FFR CT Results: No hemodynamically significant lesions. No lesions with FFR CT 0.8. The maximum anatomical stenosis is located in the mid left anterior descending coronary artery with lesion specific abnormal FFR CT of 0.88. There is a gradual change in FFR from lesion to distal vessel. Recommendation: Consider medical therapy as front-line strategy. Electronically signed by: Jose Ramirez M.D. Judah Duggan MD IMG CT PROCEDURES Final Result documented in this encounter Visit Diagnoses Diagnosis Coronary artery disease involving [place] coronary artery of akut[place] heart with angina pectoris (HCC) documented in this encounter Care Teams Staff Genetic Counselor Relationship Specialty [place] [address] [facility] [address] [place] [address] PCP - General Family Medicine 02/19/22 07/19/24 [place] [address] [facility] [address] [place] [address] Rheumatology 07/15/17 documented as of this encounter
--- OUTSIDE RECORDS SUMMARY | 2024-08-29 10:16 | XMS_ITS | Encounter Summary ---
Author Organization [facility] Address [address] [place] [address] Care Team Providers Care Body Artist Name Role Phone Gladis Song MD Unavailable Thi Lugo MD Primary Care Provider [phone] Reason for Referral * MRI/CAT/PET Scan (Routine) - Closed Specialty Diagnoses / Procedures Referred By Valerie florian Referred To Contact Radiology Diagnoses Coronary artery disease involving [place] heart without angina pectoris, unspecified vessel or lesion type Procedures CTA Heart and Coronary Arteries W Morphology when Performed Judah Duggan MD Phone: tel: fax: [address] [address] Referral ID Status Reason Start Date Expiration Date Visits Re quested Visits Authorized [id number] Closed 11/30/2022 12/30/2023 1 1 Reason for Visit * MRI/CAT/PET Scan (Routine) - Closed Specialty Diagnoses / Procedures Referred By Valerie florian Referred To Contact Radiology Diagnoses Coronary artery disease involving [place] heart without angina pectoris, unspecified vessel or lesion type Procedures CTA Heart and Coronary Arteries W Morphology when Performed Judah Duggan MD Phone: tel: fax: [address] [address] Referral ID Status Reason Start Date Expiration Date Visits Re quested Visits Authorized [id number] Closed 11/30/2022 12/30/2023 1 1 Encounter Details Date Type Department Care Team (Latest Contact Info) Description 01/03/2023 9:01 AM CDT - 01/03/2023 11:59 PM CDT Hospital Encounter [facility] [address] [place] [address] Judah Duggan MD [address] [place] [address] Coronary artery disease involving [place] heart without angina pectoris, unspecified vessel or lesion type Discharge Disposition: Discharge to home or self [...] on file 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 Gender Identity Not on file Sexual Orientation Not on file Occupation Industry Job Start Date Job End Date Retired Not on file Not on file Not on file documented as of this encounter Last Filed Vital Signs Vital Sign Reading Time Taken Comments Blood Pressure 122/58 01/03/2023 9:29 AM CDT Pulse 69 01/03/2023 9:29 AM CDT Temperature - - Respiratory Rate - - Oxygen Saturation - - Inhaled Oxygen Concentration - - Weight - - Height - - Body Mass Index - - documented in this encounter Medications at Time [...] Name Priority Date/Time Associated Diagnosis Comments CT HEART MORPHOLOGY AND CORONARY ARTERIES W CONTRAST Schedule Routine, Read Routine (OP Routine) 01/03/2023 10:03 AM CDT Coronary artery disease involving [place] heart without angina pectoris, unspecified vessel or lesion type POCT CREATININE - DEVICE Routine 01/03/2023 9:41 AM CDT documented in this encounter Results * CTA Heart and [...] normal. ??No suspicious osseous lesion. Procedure Note Gabriel Godoy MD - 01/03/2023 EXAMINATION: CORONARY CT ANGIOGRAM [...] Duggan MD IMG CT PROCEDURES Final Result * POCT creatinine (01/03/2023 9:41 AM CDT) Creatinine POC 0.7 0.6 - 1.1 mg/dL [facility] Blood 01/03/2023 9:41 AM CDT 01/03/2023 9:41 AM CDT Judah Duggan MD LAB POCT ORDERABLES - DEVICE F inal Result [facility] Department [place] [address] documented in this encounter Visit Diagnoses Diagnosis Coronary artery disease involving [place] heart without angina pectoris, unspecified vessel or lesion type documented in this encounter Administered Medications Inactive Administered Medications - up to 3 most recent administrations Medication Order MAR Action Action Date Dose Rate Site ioversoL (OPTIRAY 350) injection 100 mL 100 mL, intravenous, Once in imaging, contrast, Starting on Lynda 01/03/23 at 0951, For 1 dose Contrast Given 01/03/2023 10:04 AM CDT 75 mL nitroglycerin (NITROSTAT) sublingual tablet 0.8 mg 0.8 mg, sublingual, Once as needed, other, coronary artery vasodilation, Starting on Lynda 01/03/23 at 0923, For 1 hour, Administer during CT procedure only. Administer when blood pressure is greater than 100/60 and patient has not taken any vasodilator medication or has critical aortic stenosis. Given by Other 01/03/2023 9:50 AM CDT 0.8 mg Other (Comment) documented in this encounter Orders Medications Ordered That Tahir ht Not Have Been Administered Count Last Ordered Date First Ordered Date metoprolol (LOPRESSOR) injection 10 mg 1 documented in this encounter Care Teams Body Artist Relationship Specialty [place] [address] [facility] [address] [place] [address] PCP - General Family Medicine 02/19/22 07/19/24 [place] [address] [facility] [address] [place] [address] Rheumatology 07/15/17 documented as of this encounter
--- OUTSIDE RECORDS SUMMARY | 2024-08-29 10:16 | XMS_ITS | Encounter Summary ---
Author Organization [facility] Address [address] [place] [address] Phone Care Team Providers Care Char Conveyor Tender Name Role Phone Gladis Song MD Unavailable Thi Lugo MD Primary Care Provider [phone] Encounter Details Date Type Department Care Team (Late st Contact Info) Description 11/15/2022 Telephone [facility] Cardiology [address] [facility] Advanced Medicine 8th [place] [address] [place] [address] Judah Duggan MD [address] [place] [address] Social History Tobacco Use Types [...] on file 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 * Telephone Encounter - Alexandra Lei - 12/17/2022 9:00 AM CDT LMOR @ [phone] to schedule CTA Heart, and to call us back with appt info so we can let pt know. * Telephone Encounter - Dannielle Blackwood RN - 12/14/2022 1:09 PM CDT Test has been ordered for location of [facility] * Telephone Encounter - Dannielle Blackwood RN - 11/30/2022 9:20 AM CDT Discussed with Dr. Duggan. Ok to order Coronary CTA (calcium scoring is not needed). Order placed forCor CTA * Telephone Encounter - Darshana Corea - 11/15/2022 11:55 AM CDT Urban Order in [place]Q: CTA Heart W Calcium Scoring Coronary artery disease involving tribal heart without angina pectoris, unspecif... Shortness of breath [R06.02] Judah Duggan MD 10/17/2022 Please confirm if procedure will be considered Medically Necessary by pt's insurance carrier. Please refer to Sched Pool. This test is not scheduled unless prior approval is obtained for the patient. Thank You! documented in this encounter Plan of Treatment Not on file documented as of this encounter Visit Diagnoses Not on filedocumented in this encounter Care Teams Char Conveyor Tender Relationship Specialty [place] [address] [facility] [address] [place] [address] PCP - General Family Medicine 02/19/22 07/19/24 [place] [address] [facility] [address] [place] [address] Rheumatology 07/15/17 documented as of this encounter
--- OUTSIDE RECORDS SUMMARY | 2024-08-29 10:16 | XMS_ITS | Encounter Summary ---
Author Organization [facility] Healthcare Address [address] [place] [address] Care Team Providers Care Mule Packer Name Role Phone Gladis Song MD Unavailable Thi Lugo MD Primary Care Provider Encounter Details Date Type Department Care Team (Late st Contact Info) Description 12/24/2022 10:15 AM CDT Lab [facility] Advanced Medicine [facility] Advanced Medicine (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 Gender Identity Not on file Sexual Orientation Not on file Occupation Industry Job Start Date Job End Date Retired Not on file Not on file Not on file documented as of this encounter Plan of Treatment Not on file documented as of this encounter Procedures Procedure Name Priority Date/Time Associated Diagnosis Comments HEMOGLOBIN A1C Routine 12/24/2022 10:25 AM CDT Preventative health care LIPID PANEL Routine 12/24/2022 10:25 AM CDT 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 Triglycerides 66 <=149 mg/dL [facility] Comment: Interpretive Data Ages < or [...] Data was last revised on 2018. HDL 57 >=40 mg/dL [facility] Comment: Interpretive Data Ages < [...] was last revised on 2018. LDL, calculated 88 <=129 mg/dL [facility] Comment: Interpretive Data Ages < [...] was last revised on 2018. Non-HDL Cholesterol 101 mg/dL [facility] Comment: Interpretive Data Ages < [...] was last revised on 2018. Chol/HDL ratio 3 [facility] Blood 12/24/2022 10:2 5 AM CDT 12/24/2022 10:42 AM CDT Monique Carpenter INSTRUMENT LENS GRINDER LAB BLOOD ORDERABLES Final Result Performing Organization Address [facility] Co de Phone Number [facility] [place], [place] [id number] * (ABNORMAL) Hemoglobin A1c (12/24/2022 10:25 AM CDT) Hgb A1C 5.9(H) 4.0 - 5.6 % [facility] Estimated Average Glucose 123 mg/dL [facility] Comment: The ADA recommends reporting an estimated Average Glucose (eAG) with all Hemoglobin A1c results using the equation derived from a study of 507 normal and diabetic adults. ??Minority populations were underrepresented and children were not included. ?? (Diabetes Care 2020; 43(S1): S66-S76). ??The eAG is not equivalent to a fasting glucose. 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
--- OUTSIDE RECORDS SUMMARY | 2024-08-29 10:16 | XMS_ITS | Encounter Summary ---
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 Gender Identity Not on file Sexual Orientation Not on file Occupation Industry Job Start Date Job End Date Retired Not on file Not on file Not on file documented as of this encounter Plan of Treatment Not on file documented as of this encounter Results * CT-Coronary Fractional Flow Alfred (FFR) - Supplemental Following CCTA (01/04/2023 12:01 PM CDT) Anatomical Region Laterality Modality Chest N/A Computed Tomogra phy 01/04/2023 12:2 1 PM CDT Impressions 01/04/2023 12:21 PM CDT ADDENDUM: Coronary CTA Fractional Flow Alfred (FFR) The below FFR CT results are [...] 01/04/2023 IMPRESSION: ADDENDUM: Coronary CTA Fractional Flow Alfred (FFR) The below FFR CT results are [...] Visit Diagnoses Diagnosis 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
--- OUTSIDE RECORDS SUMMARY | 2024-08-29 10:16 | XMS_ITS | Encounter Summary ---
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 Gender Identity Not on file Sexual Orientation Not on file Occupation Industry Job Start Date Job End Date Retired Not on file Not on file Not on file documented as of this encounter Plan of Treatment Not on file documented as of this encounter Procedures Procedure Name Priority Date/Time Associated Diagnosis Comments SCAN - LABS 10/18/2022 2:39 PM FUEL MANAGER documented in this encounter Results * SCAN - LABS (10/18/2022 2:39 PM FUEL MANAGER) us Provider Scanning Final Result documented in this encounter Visit Diagnoses Not on filedocumented in this encounter Care Teams Application Development Consultant Relationship Specialty [place] [address] [facility] [address] [place] [address] PCP - General Family Medicine 02/19/22 07/19/24 [place] [address] [facility] [address] [place] [address] Rheumatology 07/15/17 documented as of this encounter
--- OUTSIDE RECORDS SUMMARY | 2024-08-29 10:16 | XMS_ITS | Encounter Summary ---
Author Organization [facility] Address [address] [place] [address] Phone Care Team Providers Care Board Finisher Name Role Phone Gladis Song MD Unavailable Thi Lugo MD Primary Care Provider Reason for Visit * Reason Onset Date Comments call back to discuss neuromuscular work up 03/15 Encounter Details Date Type Department Care Team (Late st Contact Info) Description 03/15/2023 Telephone 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 Orantes has left a vm to request discussing her neuromuscular work up completed back on September. Call back [phone] Sri Gonzalez documented in this encounter Plan of Treatment Not on file documented as of this encounter Visit Diagnoses Not on filedocumented in this encounter Care Teams Board Finisher Relationship Specialty [place] [address] [facility] [address] [place] [address] PCP - General Family Medicine 02/19/22 07/19/24 [place] [address] [facility] [address] [place] [address] Rheumatology 07/15/17 documented as of this encounter
--- OUTSIDE RECORDS SUMMARY | 2024-08-29 10:16 | XMS_ITS | Encounter Summary ---
Author Organization [facility] Address [address] [place] [address] Phone Care Team Providers Care Inspector And Mender Name Role Phone Gladis Song MD Unavailable Thi Lugo MD Primary Care Provider [phone] Encounter Details Date Type Department Care Team (Late st Contact Info) Description 10/18/2022 Telephone [facility] Cardiology [address] [facility] Advanced Medicine 8th [place] [address] [place] [address] Judah Duggan MD [address] [place] [address] Social History Tobacco Use Types [...] on file 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 Thanks! RAL INDUSTRY TEACHER documented in this encounter Plan of Treatment Not on file documented as of this encounter Visit Diagnoses Not on filedocumented in this encounter Care Teams Inspector And Mender Relationship Specialty [place] [address] [address] PCP - General Family Medicine 02/19/22 07/19/24 [place] [address] [facility] [address] [place] [address] Rheumatology 07/15/17 documented as of this encounter
--- OUTSIDE RECORDS SUMMARY | 2024-08-29 10:16 | XMS_ITS | Encounter Summary ---
Author Organization [facility] Address [address] [place] [address] Phone Care Team Providers Care Inventory And Pricing Associate Name Role Phone Gladis Song MD Unavailable Thi Lugo MD Primary Care Provider [phone] Reason for Referral * Cardiology (Routine) - Closed Specialty Diagnoses / Procedures Referred By Contac t Referred To Contact Diagnoses Coronary artery disease involving diomede heart without angina pectoris, unspecified vessel or lesion type Procedures ECG 12 lead Monique Carpenter NP Phone: tel: fax: [facility] (All Locations) Referral ID Status Reason Start Date Expiration Date Visits Re quested Visits Authorized [id number] Closed 12/24/2022 01/23/2024 1 1 Reason for Visit * Consultation (Routine) - Closed Specialty Diagnoses / Procedures Referred By Contac t Referred To Contact Cardiology Diagnoses Paroxysmal atrial fibrillation (CMS/HCC) (HCC) Coronary artery disease involving diomede heart without angina pectoris, unspecified vessel or lesion type Judah Duggan MD Phone: tel: fax: [facility] (All Locations) Referral ID Status Reason Start Date Expiration Date V isits Requested Visits Authorized [id number] Closed Specialty Services Required 06/15/2022 07/15/2023 12 12 Encounter Details Date Type Department Care Team (Late st Contact Info) Description 12/24/2022 9:30 AM CDT Office Visit [facility] Cardiology [address] [facility] 8th [place] [address] [place] [address] Monique Carpenter NP [address] [facility] [address] [place] [address] Coronary artery disease involving diomede heart without angina pectoris, unspecified vessel or lesion type (Primary Dx); Preventative health care; Paroxysmal atrial fibrillation (CMS/HCC) ([facility]); Other hyperlipidemia; Chronic heart failure with preserved ejection fraction (CMS/HCC) ([facility]) Social History Tobacco Use Types Packs/Day [...] on file 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 Gender Identity Not on file Sexual Orientation Not on file Occupation Industry Job Start Date Job End Date Retired Not on file Not on file Not on file documented as of this encounter Last Filed Vital Signs Vital Sign Reading Time Taken Comments Blood Pressure 108/65 12/24/2022 9:12 AM CDT Pulse 76 12/24/2022 9:12 AM CDT Temperature - - Respiratory Rate - - Oxygen Saturation 95% 12/24/2022 9:12 AM CDT Inhaled Oxygen Concentration - - Weight 64.9 kg (143 lb) 12/24/2022 9:12 AM CDT Height 147.3 cm (4' 10 ) 12/24/2022 9:12 AM CDT Body Mass Index 29.89 12/24/2022 9:12 AM CDT documented in this encounter Patient Instructions * Patient Instructions* Monique Carpenter NP - 12/24/2022 9:30 AM CDT No changes today. documented in this encounter Progress Notes * Monique Carpenter NP - 12/24/2022 9:30 AM CDT Patient Name: Chio Clayoth : : 1950 Date of Service: 12/24/2022 Referring: Referral CHIEF COMPLAINT Routine Follow Up PAST MEDICAL HISTORY Past Medical History: Diagnosis Date Asthma CAD (coronary artery disease) Cerebrovascular accident (CVA) (HCC) Stroke CHF (congestive heart failure) (CMS/HCC) (HCC) GERD (gastroesophageal reflux disease) Heart murmur HX OTHER MEDICAL 2009 TIA / transient global amnesia Hyperlipidemia Hypertension Irritable bowel syndrome (IBS) Lupus (CMS/HCC) (HCC) PFO (patent foramen ovale) Sleep apnea TIA (transient ischemic attack) HISTORY OF PRESENT ILLNESS: 72 y.o. female with a past medical history significant for P. AFIB, HLD, ischemic CVA 03/2016, tremor, LVH, hemiparesis of affecting the right side, non obstructed CAD, HFpEF, AZUL, PFO, osteoarthritis, lupus, GERD, osteopenia, who was last seen in clinic by Dr. Duggan in June 2022 and was doing well with intermittent chest pain. Today she is continuing to have chest pain when she has increased anxiety, or with her grandkids when it gets overwhelming, it radiates is across her chest and she has SOB that is associated with it.She has leg pain at night that is bothersome She is not doing much for routine exercise right now secondary to her leg discomfort. She has been bothered by her leg pain, so has not not gotten back into an exercise routine. No palpitations or AFIB that she notices. She was started on imdur in October as an outpt for chest pain, she has had to take NTG twice priro to starting imdur. This previously occurred twice and woke her from sleep, relieved with NTG and then on the following consecutive night had chest pain again relived with NTG. She describes this as a sharp pain the pain that woke her it is different than her anxiety tightness. The pain at night radiated to her neck, it was associated with SOB and went away with NTG, this was in October she started Imdur and has not had any recurrence of episodes. She checks her BP at home and states that she has SBP in the 120. She does have worsening SOB and VELAZQUEZ that she has noticed for several months, when she is hurried or with steps, no chest pain with this. No palaitions, no syncope or pre-sycneope, no PND, orthopnea. REVIEW OF SYSTEMS: All other systems negative except stated in the HPI MEDICATIONS: Outpatient Encounter Medications as of 12/24/2022 Medication Sig Dispense Refill albuterol HFA (PROVENTIL HFA,VENTOLIN HFA,PROAIR HFA) 90 mcg/actuation inhaler Inhale 90 puffs apixaban (Eliquis) 5 mg tablet Take 1 tablet (5 mg total) by mouth 2 (two) times a day 180 tablet 3 Arnuity Ellipta 100 mcg/actuation inhaler INHALE 1 PUFF INTO THE LUNGS DAILY. RINSE AND SPIT AFTER ascorbic acid (VITAMIN C) 1,000 mg tablet Take 1 tablet (1,000 mg total) by mouth daily atorvastatin (LIPITOR) 80 mg tablet TAKE 1 TABLET BY MOUTH EVERY DAY 90 tablet 3 bisoprolol (ZEBETA) 5 mg tablet TAKE 1 TABLET BY MOUTH EVERY DAY 90 tablet 3 calcium carbonate (OS-LEELA) 1,500 mg (600 mg of elemental calcium) tablet Take 2,000 mg of elementalcalcium by mouth every morning calcium carbonate-vitamin D3 1,250mg (500mg elemental) - 5 mcg (200 units) per tablet Take by mouthdaily cholecalciferol (VITAMIN D3) 2,000 unit tablet take 1 by Oral route every day (Patient taking differently: Take by mouth every morning) 0 0 fluticasone propionate (FLOVENT HFA) 110 mcg/actuation inhaler Inhale 2 puffs 2 (two) times a day Rinse mouth with water after use. Do not swallow. 2 Inhaler 2 furosemide (LASIX) 20 mg tablet Take 1 tablet (20 mg total) by mouth daily 90 tablet 3 gabapentin (NEURONTIN) 100 mg capsule Take 2 capsules (200 mg total) by mouth hydroCHLOROthiazide (HYDRODIURIL) 25 mg tablet TAKE 1 TABLET BY MOUTH EVERY DAY 90 tablet 3 isosorbide mononitrate ER (IMDUR) 30 mg 24 hr tablet Take 1 tablet (30 mg total) by mouth daily 30 tablet 11 methotrexate 2.5 mg tablet TAKE 6 TABLETS [...] 2 TABLETS EVERY EVENING 360 tablet 3 abatacept/maltose (ORENCIA, WITH MALTOSE, IV) Infuse into a venous catheter every 30 (thirty) days (Patient not taking: Reported on 06/16/2021) alosetron (LOTRONEX) 1 mg tablet Take 1 mg by mouth as needed (Patient not taking: Reported on 06/22/2022) amoxicillin 500 mg capsule TAKE 1 CAPSULE BY MOUTH EVERY 8 HOURS UNTIL FINISHED (Patient not taking: Reported on 10/05/2022) azelastine (ASTELIN) 137 mcg (0.1 %) nasal spray INSTILL 1 SPRAY INTO EACH NOSTRIL DIRECTED 2 TIMES PER DAY (Patient not taking: Reported on 10/05/2022) dexlansoprazole (DEXILANT) 60 mg capsule Take 60 mg by mouth 2 (two) times a day (Patient not taking: Reported on 10/05/2022) dicyclomine (BENTYL) 10 mg capsule TAKE 1 CAPSULE (10 MG TOTAL) BY MOUTH 2 (TWO) TIMES DAILY FOR 30DAYS. (Patient not taking: Reported on 12/24/2022) folic acid (FOLVITE) 1 mg tablet Take 1 tablet (1 mg total) by mouth daily. Take one tab daily (Patient taking differently: Take 1 mg by mouth every morning Take one tab daily) 90 tablet 0 hydroxychloroquine (PLAQUENIL) 200 mg tablet Take 1 tablet (200 mg total) by mouth 2 (two) times a day. (Patient not taking: Reported on 10/05/2022) 180 tablet 0 methscopolamine (PAMINE FORTE) 5 mg tablet Take 5 mg by mouth daily (Patient not taking: Reported on 10/05/2022) methylPREDNISolone (MEDROL DOSEPACK) 4 mg Dosepack Take 1 tablet (4 mg total) by mouth (Patient nottaking: Reported on 10/05/2022) ondansetron ODT (ZOFRAN-ODT) 4 mg disintegrating tablet (Patient not taking: Reported on 10/05/2022) sucralfate (CARAFATE) 1 gram tablet TAKE 1 TABLET BY MOUTH 4 TIMES DAILY BEFORE MEALS AND NIGHTLY. (Patient not taking: Reported on 10/05/2022) No facility-administered encounter medications on file as of 12/24/2022. PHYSICAL EXAM: BP 108/65 (BP Location: Left arm, Patient Position: Sitting) Pulse 76 Ht 147.3 cm (4' 10 ) Wt64.9 kg (143 lb) LMP (LMP Unknown) SpO2 95% BMI 29.89 kg/m?? General: Well appearing, No pain or distress, well nourished HEENT: Within normal limits Neck: Supple, No carotid bruits, no JVD Respiratory: Clear to ausculation bilaterally; no wheezing/rales/rhonchi; respirations unlabored Cardiovascular: RRR, normal S1 and S2. No S3 or S4. No murmurs or rubs Gastrointestinal: soft, non-tender abdomen, no masses palpable Extremities: Warm and dry without edema Psychiatric: normal affect Neurologic: awake/alert, no focal deficits DIAGNOSTIC TESTING: Lab Results Component Value Date GLUCOSE 92 08/30/2022 CALCIUM 9.8 08/30/2022 SODIUM 143 08/30/2022 POTASSIUM 4.3 08/30/2022 CO2 32 08/30/2022 CHLORIDE 104 08/30/2022 BUNSER 18 08/30/2022 CREATININE 0.83 08/30/2022 Chemistry Lab Results Component Value Date SODIUM 143 08/30/2022 POTASSIUM 4.3 08/30/2022 CHLORIDE 104 08/30/2022 CO2 32 08/30/2022 ANIONGAP 7 08/30/2022 BUNSER 18 08/30/2022 CREATININE 0.83 08/30/2022 GLUCOSE 92 08/30/2022 CALCIUM 9.8 08/30/2022 BILITOT 0.6 08/30/2022 PROTEIN 6.8 09/03/2019 ALBUMIN 4.4 08/30/2022 GFRNAA 74 (L) 08/30/2022 ALKPHOS 85 08/30/2022 AST 31 08/30/2022 ALT 27 08/30/2022 PHOS 4.5 (H) 04/25/2015 MAGNESIUM 2.2 04/25/2015 Lab Results Component Value Date CHOL 140 01/18/2021 Lab Results Component Value Date HDL 49 (L) 06/02/2019 Lab Results Component Value Date LDLCALC 64 05/13/2018 LDL 53 06/02/2019 LDLDIRECT 52 01/18/2021 Lab Results Component Value Date TRIG 119 01/18/2021 No results found for: POCCHDLR No results found for: POCNONHDL No results found for: POCCHLPL Lab Results Component Value Date WBC 5.0 08/30/2022 HGB 13.4 08/30/2022 HCT 42.5 08/30/2022 MCV 91.0 08/30/2022 LABPLAT 243 08/30/2022 Lab Results Component Value Date HGBA1C 5.8 (H) 08/30/2022 No results found for: NPROBNP No results found for: TROPTHS MOST RECENT ECHOv12/2020: Mild AR, Mild MR, no , no MS, mild TV regurgitation, normal PV. Diastolic function: Grade I, altered relax. w/N. LA pres. CONTRAST: 0.4 ml Optison Administered, (2.6 ml wasted). SUMMARY: LV cavity size is normal. Normal LV [...] Normal est PASP. Aortic root 3.2 cm. MOST RECENT ISCHEMIC EVALUATION:05/2018: relatively mild coronary artery disease 20-30% narrowing in the circumflex and right coronary artery with markedly elevated LVEDP - Therapeutic Recommendations the patient presents with symptoms of chest pain and shortness of breath. Her for coronary artery disease is relatively mild. Her symptoms are secondary to heart failure with preserved ejection fraction. She will be started on a diuretic. DEVICE INTERROGATION:01/2021 Bradycardia avg rate: 58 Bradycardia longest duration: 00:02:35 Bradycardia longest episode: 02/14/2021 14:03:00 Bradycardia shortest duration: 00:00:23 Bradycardia shortest episode: 02/14/2021 05:56:00 Mean heart rate: 72 Pauses >= 3 seconds: 0 Tachycardia avg rate: 105 Tachycardia longest duration: 00:04:15 Tachycardia longest episode: 02/04/2021 19:27:00 Tachycardia shortest duration: 00:00:06 Tachycardia shortest episode: 02/04/2021 19:11:00 Cardiologis Review of Transmissions: I have reviewed the findings on the individual tracings for the dates noted below and I agree., The full scanned/data report is available in [facility]. labeled MONITOR STRIPS PDF . EKG: Unchanged with no acute ST changes. ASSESSMENT & PLAN: Problem List Items Addressed This Visit Cardiac and Vasculature Paroxysmal atrial fibrillation (CMS/HCC) (HCC) Stable, denies reoccurrence. NSR today in clinic. Eliquis 5 mg BID. Other hyperlipidemia Lipitor 80 mg daily. FLP today. CAD (coronary artery disease) - Primary CAD with non obstructed CAD on [facility] in 2018 now with stable angina. Relieved with NTG and no furtherepisodes since starting Imdur 30 mg daily.. CTA pending. Further recs pending results. FLP today, continue Lipitor 80mg daily, bisoprolol 5 mg daily, and follow up with Dr. Duggan in 6 months. . EKG in clinic. Relevant Orders Lipid panel ECG 12 lead Heart failure with preserved ejection fraction (CMS/HCC) (HCC) Chronic HFpEF: Stable and Euvolemic in clinic today. Continue lasix 20 mg daily and HCTZ 25 mg Daily, bisoprolol 5 mg daily. Other Visit Diagnoses Preventative health care Relevant Orders Hemoglobin A1c Dr. Duggan in 6 months or sooner PRN, CTA results. Monique Carpenter NP Cosigned by Judah Duggan MD at 12/24/2022 10:37 AM CDT documented in this encounter Miscellaneous Notes * Assessment & Plan Note - Monique Carpenter NP - 12/24/2022 10:03 AM CDT Associated Problem(s): Heart failure with preserved ejection fraction (CMS/HCC) (HCC) Chronic HFpEF: Stable and Euvolemic in clinic today. Continue lasix 20 mg daily and HCTZ 25 mg Daily, bisoprolol 5 mg daily. * Assessment & Plan Note - Monique Carpenter NP - 12/24/2022 9:56 AM CDT Associated Problem(s): Paroxysmal atrial fibrillation (CMS/HCC) (HCC) Stable, denies reoccurrence. NSR today in clinic. Eliquis 5 mg BID. * Assessment & Plan Note - Monique Carpenter NP - 12/24/2022 9:56 AM CDT Associated Problem(s): Other hyperlipidemia Lipitor 80 mg daily. FLP today. * Assessment & Plan Note - Monique Carpenter NP - 12/24/2022 9:51 AM CDT Associated Problem(s): CAD (coronary artery disease) CAD with non obstructed CAD on [facility] in 2018 now with stable angina. Relieved with NTG and no furtherepisodes since starting Imdur 30 mg daily.. CTA pending. Further recs pending results. FLP today, continue Lipitor 80mg daily, bisoprolol 5 mg daily, and follow up with Dr. Duggan in 6 months. . EKG in clinic. documented in this encounter Plan of Treatment Not on file documented as of this encounter Procedures Procedure Name Priority Date/Time Associated Diagnosis Comments ECG 12-LEAD Routine 12/24/2022 Coronary artery disease involving diomede heart without angina pectoris, unspecified vessel or lesion type documented in this encounter Results * (ABNORMAL) Hemoglobin A1c (12/24/2022 10:25 AM CDT) Hgb A1C 5.9(H) 4.0 - 5.6 % [facility] Estimated Average Glucose 123 mg/dL [facility] Comment: The ADA recommends reporting an estimated [...] CDT 12/24/2022 10:42 AM CDT Monique Carpenter NP LAB BLOOD ORDERABLES Final Result [facility] Department [place] [address] * Lipid panel (12/24/2022 10:25 AM CDT) Cholesterol 158 30 - 199 mg/dL [facility] Comment: Interpretive Data [...] 2018. Triglycerides 66 <=149 mg/dL [facility] Comment: Interpretive Data Ages < or = [...] revised on 2018. HDL 57 >=40 mg/dL [facility] Comment: Interpretive Data Ages < or = [...] on 2018. LDL, calculated 88 <=129 mg/dL [facility] Comment: Interpretive Data Ages < or = [...] 5 AM CDT 12/24/2022 10:42 AM CDT us Monique Carpenter COOK VEGETABLE LAB BLOOD ORDERABLES Final Result [facility] Department [place] [address] * ECG 12 lead (12/24/2022) Monique Carpenter COOK [employer]GET[employer] ECG ORDERABLES Final Resu lt documented in this encounter Visit Diagnoses Diagnosis Coronary artery disease involving diomede heart without angina pectoris, unspecified vessel or lesion type- Primary Preventative health care Routine general medical examination at a health care facility Paroxysmal atrial fibrillation (CMS/HCC) (HCC) Atrial fibrillation Other hyperlipidemia Chronic heart failure with preserved ejection fraction (CMS/HCC) (HCC) documented in this encounter Care Teams Inventory And Pricing Associate Relationship Specialty [place] [address] [facility] [address] [place] [address] PCP - General Family Medicine 02/19/22 07/19/24 [place] [address] [facility] [address] [place] [address] Rheumatology 07/15/17 documented as of this encounter
--- OUTSIDE RECORDS SUMMARY | 2024-08-29 10:17 | XMS_ITS | Encounter Summary ---
Author Organization [facility] Address [address] [place] [address] Phone Care Team Providers Care Pulpwood Cutter Name Role Phone Gladis Song MD Unavailable Thi Lugo MD Primary Care Provider [phone] Encounter Details Date Type Department Care Team (Late st Contact Info) Description 10/16/2022 Telephone [facility] Cardiology [address] [facility] [address]th [place] [address] [place] [address] Judah Duggan MD [address] [place] [address] Social History Tobacco Use Types [...] on file 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 Urban guillen, she verbalizes understanding. Lab orders faxed to [facility]. Script sent to [facility]. Order placed for CTA ELEVATOR WORKER * Telephone Encounter - Dannielle Blackwood RN - 10/16/2022 3:04 PM CST I spoke to pt. States Saturday night she had very bad heart burn that was different than usual. She took one nitro with relief. B/p running 137/79. States her ankles are swollen at times and she notes she gets SOB easier. Med list is accurate. Please advise ELEVATOR WORKER * Telephone Encounter - Darshana Corea - 10/16/2022 1:57 PM CST Urban Pt stating on Saturday she needed to get up during the night and take a Nitro because of a burning sensation in her chest --felt different than heartburn. Pt has been doing therapy for back pain. Pt stating she has been experiencing more episodes of SOB at times of rest. Pls call pt to discuss. Next appt in 06/2023. ELEVATOR WORKER documented in this encounter Plan of Treatment Scheduled Orders Name Type Priority Associated Diagnoses Orde r Schedule Pro B-type natriuretic peptide Lab Routine Coronary artery disease involving [place] heart without angina pectoris, unspecified vessel or lesion type Shortness of breath Edema, unspecified type Expected: 10/16/2022, Expires: 10/16/2023 Basic metabolic panel Lab Routine Coronary artery disease involving [place] heart without angina pectoris, unspecified vessel or lesion type Expected: 10/16/2022, Expires: 10/16/2023 documented as of this encounter Visit Diagnoses Diagnosis Coronary artery disease involving [place] heart without angina pectoris, unspecified vessel or lesion type- Primary Shortness of breath Edema, unspecified type documented in this encounter Care Teams Pulpwood Cutter Relationship Specialty [place] [address] [facility] [address] [place] [address] PCP - General Family Medicine 02/19/22 07/19/24 [place] [address] [facility] [address] [place] [address] Rheumatology 07/15/17 documented as of this encounter
--- OUTSIDE RECORDS SUMMARY | 2024-08-29 10:17 | XMS_ITS | Encounter Summary ---
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 Gender Identity Not on file Sexual Orientation Not on file Occupation Industry Job Start Date Job End Date Retired Not on file Not on file Not on file documented as of this encounter Plan of Treatment Not on file documented as of this encounter Procedures Procedure Name Priority Date/Time Associated Diagnosis Comments SCAN - LABS 10/17/2022 1:43 PM REGISTERED MEDICAL TRANSCRIPTIONIST documented in this encounter Results * SCAN - LABS (10/17/2022 1:43 PM REGISTERED MEDICAL TRANSCRIPTIONIST) us Provider Scanning Final Result documented in this encounter Visit Diagnoses Not on filedocumented in this encounter Care Teams Neurodiagnostic Technician Relationship Specialty [place] [address] [facility] [address] [place] [address] PCP - General Family Medicine 02/19/22 07/19/24 [place] [address] [facility] [address] [place] [address] Rheumatology 07/15/17 documented as of this encounter
--- OUTSIDE RECORDS SUMMARY | 2024-08-29 10:17 | XMS_ITS | Encounter Summary ---
Author Organization [facility] Address [address] [place] [address] Phone Care Team Providers Care Pumping Plant Operator Name Role Phone Gladis Song MD Unavailable Thi Lugo MD Primary Care Provider [phone] Encounter Details Date Type Department Care Team (Late st Contact Info) Description 08/28/2022 Telephone [facility] [address] [facility] [address] [facility] 6th [place] [address] [place] [address] Tammie Paul CMA Social History [...] on file 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 Mirza TaxID: [id number]- [facility] neurology/ [id number]- [facility]/ other: Insurance Company: [employer]: Fax#: Spoke with Tisha DX code: G31.84 CPT codes: 15472, 92664, 16612, 48844, 40877, 80874, 60361, 80399, 85573, 07387 Outcome: no auth req per tisha ref#[id number] Notes: KEEPER SUPERVISOR documented in this encounter Plan of Treatment Not on file documented as of this encounter Visit Diagnoses Not on filedocumented in this encounter Care Teams Pumping Plant Operator Relationship Specialty [place] [address] [facility] [address] [place] [address] PCP - General Family Medicine 02/19/22 07/19/24 [place] [address] [facility] [address] [place] [address] Rheumatology 07/15/17 documented as of this encounter
--- OUTSIDE RECORDS SUMMARY | 2024-08-29 10:17 | XMS_ITS | Encounter Summary ---
Author Organization [facility] [place] Address [address] [place] [address] Phone Care Team Providers Care Attorney At Law Name Role Phone Gladis Song MD Unavailable Thi Lugo MD Primary Care Provider [phone] Reason for Visit * Consultation (Routine) - Closed Specialty Diagnoses / Procedures Referred By Contac t Referred To Contact Cardiology Diagnoses Paroxysmal atrial fibrillation (CMS/HCC) (HCC) Coronary artery disease involving [place] heart without angina pectoris, unspecified vessel or lesion type Judah Duggan MD Phone: tel: fax: [facility] (All Locations) Referral ID Status Reason Start Date Expiration Date V isits Requested Visits Authorized [id number] Closed Specialty Services Required 06/15/2022 07/15/2023 12 12 Encounter Details Date Type Department Care Team (Late st Contact Info) Description 06/22/2022 10:30 AM CDT Office Visit [facility] Cardiology 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 Gender Identity Not on file Sexual Orientation Not on file Occupation Industry Job Start Date Job End Date Retired Not on file Not on file Not on file documented as of this encounter Last Filed Vital Signs Vital Sign Reading Time Taken Comments Blood Pressure 123/74 06/22/2022 10:27 AM CDT Pulse 76 06/22/2022 10:27 AM CDT Temperature - - Respiratory Rate - - Oxygen Saturation 96% 06/22/2022 10: 27 AM CDT Inhaled Oxygen Concentration - - Weight 66.1 kg (145 lb 12.8 oz) 022 10:27 AM CDT Height 147.3 cm (4' 10 ) 06/22/2022 10: 27 AM CDT Body Mass Index 30.47 06/22/2022 10:27 AM CDT documented in this encounter Patient Instructions * Patient Instructions* Dannielle Blackwood RN - 06/22/2022 10:30 AM CDT Stop aspirin Restart eliquis 5mg twice daily documented in this encounter Progress Notes * Patrick Huang MD - 06/22/2022 10:30 AM CDT Cardiology Clinic Note Patient Name: Chio Orantes : 1950 Date of Service: 06/22/2022 Referring: Dr. Duggan Patient Active Problem List [...] prior TIAs.Also with history of subcortical strokes Benign essential tremor 02/09/2022 Priority: Low Forgetfulness 02/09/2022 Priority: Low Trigger finger of right thumb 03/03/2020 Priority: Low Added automatically from request for surgery [id number] Tachycardia 09/03/2019 Priority: Low Dyspepsia 09/03/2019 Priority: Low Annual physical exam 06/01/2019 Priority: Low Hypertensive heart disease with chronic systolic congestive heart failure ([place]) ([facility]) 06/01/2019 Priority: Low 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 ([place]) ([facility]) 12/26/2018 Priority: Low Neuropathy ([place]) 12/26/2018 Priority: Low CAD (coronary artery disease) 11/21/2018 Priority: Low Mild coronary artery disease 20-30% narrowing in the circumflex and right coronar artery from 05/2018. Heart failure with preserved ejection fraction ([place]) ([facility]) 11/21/2018 Priority: Low LVEDP was 22 from cardiac catheterization in May of 2018 Epigastric abdominal pain 07/03/2018 Priority: Low Benign paroxysmal positional vertigo of left ear 05/13/2018 Priority: Low Obesity with body mass index 30 or greater 05/06/2017 Priority: Low Class: Chronic BMI 28.0-28.9,adult 04/29/2017 Priority: Low Obstructive sleep apnea syndrome 08/01/2016 Priority: Low Class: Chronic Osteoarthritis 07/17/2016 Priority: Low Class: Chronic Restless legs 07/17/2016 Priority: Low Class: Chronic Patent foramen ovale 04/13/2016 Priority: Low Class: Chronic Patent foramen ovale. RoPE score of 2 with low likelihood of contribution to TIAs. Therefore, PFO closure has not been recommended Moderate asthma with acute exacerbation 07/12/2015 Priority: Low Class: Chronic Asthma Late, effect, cerebrovascular disease 06/03/2015 Priority: Low Class: Chronic Borderline diabetes mellitus 06/03/2015 Priority: Low Class: Chronic Systemic lupus erythematosus ([facility]) ([facility]) 01/16/2014 Priority: Low Class: Chronic SLE Gastroesophageal reflux disease 01/16/2014 Priority: Low Class: Chronic ESOPHAGEAL REFLUX Osteopenia 01/16/2014 Priority: Low Class: Chronic osteopenia Anxiety state 01/16/2014 Priority: Low Class: Chronic ANXIETY STATE NOS Tremor 01/29/2013 Priority: Low Class: Chronic Tremor HISTORY OF PRESENT ILLNESS: It was a pleasure to see Ms. Orantse at the [facility] at [facility] in follow-up for the above-mentioned cardiovascular issues. She is a 71-year-old woman with multiple cardiovascular risk factors include hypertension and dyslipidemia known to have atherosclerotic cardiovascular disease and a history of prior stroke so has paroxysmal atrial fibrillation for which she is on anticoagulation with Eliquis 5 mg b.i.d.. Her most recent echocardiogram from 01/18/2021 showed a normal LV systolic function with an EF of 66% as well as findings suggestive of a small secundum ASD versus a patent foramen ovale (RoPe or 3 points - 0% chance that the stroke is due to PFO closure. She is been compliant to medical therapy and continues to take aspirin 81, Lipitor 80 mg q.h.s., bisoprolol 5 mg daily, Lasix 20 mg daily. She is been under a significant amount of stress as her who has a left ventricular assist device developed a driveline infection and is currently admitted to the hospital being treated for this. In addition, today she mentions that she is been experiencing occasional episodes of chest discomfort while bending over when she plays with her grandkids - denies any dyspnea on exertion, or exertional chest pain. Denies lower extremity edema, orthopnea, weight gain. REVIEW OF SYSTEMS Review of systems per HPI and otherwise all other review of systems negative. MEDICATIONS Current Outpatient Medications: albuterol HFA (PROVENTIL HFA,VENTOLIN HFA,PROAIR HFA) 90 mcg/actuation inhaler, Inhale 90 puffs, Disp: , Rfl: Arnuity Ellipta 100 mcg/actuation inhaler, INHALE 1 PUFF INTO THE LUNGS DAILY. RINSE AND SPIT AFTER, Disp: , Rfl: ascorbic acid (VITAMIN C) 1,000 mg tablet, Take 1,000 mg by mouth daily, Disp: , Rfl: aspirin 81 mg chewable tablet, Take 81 mg by mouth daily, Disp: , Rfl: atorvastatin (LIPITOR) 80 mg tablet, TAKE 1 TABLET BY MOUTH EVERY DAY, Disp: 90 tablet, Rfl: 3 bisoprolol (ZEBETA) 5 mg tablet, TAKE 1 TABLET BY MOUTH EVERY DAY, Disp: 90 tablet, Rfl: 3 calcium carbonate (OS-LEELA) 1,500 mg (600 mg of elemental calcium) tablet, Take 2,000 mg of elemental calcium by mouth every morning , Disp: , Rfl: cholecalciferol (VITAMIN D3) 2,000 unit tablet, take 1 by Oral route every day (Patient taking differently: Take by mouth every morning), Disp: 0, Rfl: 0 folic acid (FOLVITE) 1 mg tablet, Take 1 tablet (1 mg total) by mouth daily. Take one tab daily (Patient taking differently: Take 1 mg by mouth every morning Take one tab daily), Disp: 90 tablet, Rfl: 0 furosemide (LASIX) 20 mg tablet, TAKE 1 TABLET BY MOUTH EVERY DAY, Disp: 90 tablet, Rfl: 3 gabapentin (NEURONTIN) 100 mg capsule, Take 200 mg by mouth, Disp: , Rfl: methotrexate 2.5 mg tablet, TAKE 6 TABLETS BY MOUTH ONCE A WEEK, Disp: , Rfl: montelukast (SINGULAIR) 10 mg tablet, TAKE 1 TABLET BY MOUTH EVERY DAY AT NIGHT, Disp: 90 tablet, Rfl: [address] (PROTONIX) 40 mg EC tablet, Take 40 mg by mouth 2 (two) times a day, Disp: , Rfl: PARoxetine (PAXIL) 20 mg tablet, TAKE 1/2 TABLET BY MOUTH EVERY DAY IN THE MORNING (Patient taking differently: Take 20 mg by mouth every morning), Disp: 15 tablet, Rfl: 1 potassium chloride ER (Klor-Con M20) 20 mEq CR tablet, TAKE 2 TABLETS EVERY MORNING AND 2 TABLETS EVERY EVENING, Disp: 360 tablet, Rfl: 1 sucralfate (CARAFATE) 1 gram tablet, TAKE 1 TABLET BY MOUTH 4 TIMES DAILY BEFORE MEALS AND NIGHTLY., Disp: , Rfl: abatacept/maltose (ORENCIA, WITH MALTOSE, IV), Infuse into a venous catheter every 30 (thirty) days(Patient not taking: No sig reported), Disp: , Rfl: alosetron (LOTRONEX) 1 mg tablet, Take 1 mg by mouth as needed (Patient not taking: Reported on 06/22/2022), Disp: , Rfl: azelastine (ASTELIN) 137 mcg (0.1 %) nasal spray, INSTILL 1 SPRAY INTO EACH NOSTRIL DIRECTED 2 TIMES PER DAY, Disp: , Rfl: calcium carbonate-vitamin D3 1,250mg (500mg elemental) - 5 mcg (200 units) per tablet, Take by mouth daily (Patient not taking: Reported on 06/22/2022), Disp: , Rfl: dexlansoprazole (DEXILANT) 60 mg capsule, Take 60 mg by mouth 2 (two) times a day (Patient not taking: Reported on 06/22/2022), Disp: , Rfl: Eliquis 5 mg tablet, TAKE 1 TABLET BY MOUTH TWICE A DAY (Patient not taking: Reported on 06/22/2022), Disp: 180 tablet, Rfl: 3 fluticasone propionate (FLOVENT HFA) 110 mcg/actuation inhaler, Inhale 2 puffs 2 (two) times a day Rinse mouth with water after use. Do not swallow. (Patient not taking: Reported on 06/22/2022), Disp: 2 Inhaler, Rfl: 2 hydroCHLOROthiazide (HYDRODIURIL) 25 mg tablet, TAKE 1 TABLET BY MOUTH EVERY DAY (Patient not taking: Reported on 06/22/2022), Disp: 90 tablet, Rfl: 3 hydroxychloroquine (PLAQUENIL) 200 mg tablet, Take 1 tablet (200 mg total) by mouth 2 (two) times aday. (Patient not taking: Reported on 06/22/2022), Disp: 180 tablet, Rfl: 0 methscopolamine (PAMINE FORTE) 5 mg tablet, Take 5 mg by mouth daily (Patient not taking: Reported on 06/22/2022), Disp: , Rfl: nitroglycerin (NITROSTAT) 0.4 mg SL tablet, May repeat dose every 5 minutes for up to 3 doses total. (Patient not taking: Reported on 06/22/2022), Disp: 25 tablet, Rfl: 3 ondansetron ODT (ZOFRAN-ODT) 4 mg disintegrating tablet, DISSOLVE 1 TABLET IN MOUTH 10 MINUTES PRIOR TO EACH PREP DOSE NEEDED FOR NAUSEA (Patient not taking: Reported on 06/22/2022), Disp: , Rfl: PHYSICAL EXAM: BP 123/74 (BP Location: Left arm, Patient Position: Sitting) Pulse 76 Ht 147.3 cm (4' 10 ) Wt66.1 kg (145 lb 12.8 oz) LMP (LMP Unknown) SpO2 96% BMI 30.47 kg/m?? General: Well appearing, No pain or distress, well nourished Respiratory: Clear to ausculation bilaterally; moving air well Cardiovascular: normal rate, regular rhythm, no M/G/R, JVD not elevated, no GRICEL Gastrointestinal: soft, non-tender abdomen Extremities: no cyanosis or clubbing Psychiatric: normal affect, normal mood Neurologic: awake/alert, no focal deficits DATA: No results for input(s): HGB, HCT, WBC, LABPLAT in the last 8736 hours. No results for input(s): SODIUM, POTASSIUM, CHLORIDE, CO2, ANIONGAP, BUNSER, CREATININE, CALCIUM, MAGNESIUM in the last 8736 hours. No results for input(s): PROTEIN, ALBUMIN, ALKPHOS, AST, ALT, BILITOT, BILIDIR in the last 8736 hours. No results for input(s): APTT, INR in the last 8736 hours. No results for input(s): TROPONINT, TROPONINI, NPROBNP, LDH, TSH in the last 8736 hours. We [...] right coronary artery with markedly elevated LVEDP. ASSESSMENT AND PLAN This is a 71 y.o. female who presents to Cardiology clinic in follow-up for the following issues: Paroxysmal atrial fibrillation (CMS/HCC) This is not well documented. Although a 30 day event recorder did not show evidence of atrial fibrillation, the sensitivity of this is known to be limited. Rather than install a LINQ recorder and she continued to have neurological events including TIAs while on aspirin alone it was elected to start Eliquis. She is had no more events since she is been on Eliquis. In the MEL trial the bleeding risk of Eliquis was very similar to aspirin. In addition she has a PFO. I did discuss with the patient in detail the rationale her neurologist used for using aspirin alone rather than Eliquis and some of the uncertainty regarding her diagnosis of paroxysmal atrial fibrillation. After good hearing above we had shared decision-making, and she elected to discontinue aspirin 81 mg daily and restartEliquis alone 5 mg b.i.d. Other hyperlipidemia Her most recent lipid panel was obtained 1 year ago at that time her LDL cholesterol was at goal. Will repeat lipid panel. Will make no adjustments to her lipid-lowering therapy. CAD (coronary artery disease) She has nonobstructive coronary artery disease and has been experiencing noncardiac chest pain. Nowwill continue Lipitor 80 mg q.h.s. as well as bisoprolol 5 mg daily. Heart failure with preserved ejection fraction (CMS/HCC) Her most recent echocardiogram from 01/18/2021 normal EF of 66% as well as impaired diastolic function. Today, she appears euvolemic on exam with class 2 symptoms. We will maintain her current dose of diuretic. DISPOSITION We will plan to see Ms. Orantes back in clinic in 6 months time or sooner if needed. Patrick Oliveira MD Fellow, Interventional Cardiology 10:54 AM Cosigned by Judah Duggan MD at 06/22/2022 11:41 AM CDT Associated attestation - Judah Duggan MD - 06/22/2022 11:41 AM CDT I have seen and examined the patient. I agree with the findings and plan of care as documented in the resident/fellow's note. documented in this encounter Miscellaneous Notes * Assessment & Plan Note - Patrick Huang MD - 06/22/2022 10:52 AM CDTAssociated Problem(s): Heart failure with preserved ejection fraction (CMS/HCC) (HCC) At 1 point the patient had heart failure preserved ejection fraction. Her most recent echocardiogram from 01/18/2021 normal EF of 66% as well as impaired diastolic function. Today, she appears euvolemic on exam and is not describing any symptoms of heart failure * Assessment & Plan Note - Patrick Huang MD - 06/22/2022 10:52 AM CDTAssociated Problem(s): CAD (coronary artery disease) She has nonobstructive coronary artery disease and has been experiencing noncardiac chest pain. Nowwill continue Lipitor 80 mg q.h.s. as well as bisoprolol 5 mg daily. * Assessment & Plan Note - Patrick Huang MD - 06/22/2022 10:51 AM CDTAssociated Problem(s): Other hyperlipidemia Her most recent lipid panel was obtained 1 year ago at that time her LDL cholesterol was at goal. Will repeat lipid panel. Will make no adjustments to her lipid-lowering therapy. * Assessment & Plan Note - Patrick Huang MD - 06/22/2022 10:50 AM CDTAssociated Problem(s): Paroxysmal atrial fibrillation (CMS/HCC) (HCC) This is not well documented however given recurrent cortical strokes well as presence of PFO would recommend continuing Eliquis 5 mg b.i.d. We will discontinue aspirin 81 mg daily documented in this encounter Plan of Treatment Not on file documented as of this encounter Visit Diagnoses Diagnosis Chronic heart failure with preserved ejection fraction (CMS/HCC) (HCC)- Primary Paroxysmal atrial fibrillation (CMS/HCC) (HCC) Atrial fibrillation Coronary artery disease involving [place] heart without angina pectoris, unspecified vessel or lesion type Other hyperlipidemia documented in this encounter Historical Medications * This list may reflect changes made after this encounter. gabapentin (NEURONTIN) 100 mg capsule Take 2 capsules (200 mg total) by mouth 06/01/2022 sucralfate (CARAFATE) 1 gram tablet 05/04/2022 Arnuity Ellipta 100 mcg/actuation inhaler INHALE 1 PUFF INTO THE LUNGS DAILY. RINSE AND SPIT AFTER 05/15/2022 09/25/2023 aspirin 81 mg chewable tablet Take 81 mg by mouth daily 06/22/2022 added in this encounter Orders Outpatient Referral Count Last Ordered Date Fir st Ordered Date AMB REFERRAL TO CARDIOLOGY 1 06/22/2022 documented in this encounter Care Teams Attorney At Law Relationship Specialty [place] [id number] [address] PCP - General Family Medicine 02/19/22 07/19/24 [place] [id number] [address] Rheumatology 07/15/17 documented as of this encounter
--- OUTSIDE RECORDS SUMMARY | 2024-08-29 10:17 | XMS_ITS | Encounter Summary ---
Author Organization [facility] Address [address] [place] [address] Phone Care Team Providers Care Shot Peening Operator Name Role Phone Gladis Song MD Unavailable Thi Lugo MD Primary Care Provider [phone] Reason for Visit * Reason Onset Date Comments [facility] lab service 09/04/2022 Encounter Details Date Type Department Care Team (Late st Contact Info) Description 09/04/2022 Telephone [facility] [address] 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 Sri LE BLOWING MACHINE TENDER documented in this encounter Plan of Treatment Not on file documented as of this encounter Visit Diagnoses Not on filedocumented in this encounter Care Teams Shot Peening Operator Relationship Specialty [place] [address] [facility] [address] [place] [address] PCP - General Family Medicine 02/19/22 07/19/24 [place] [id number] [facility] [address] [place] [address] Rheumatology 07/15/17 documented as of this encounter
--- OUTSIDE RECORDS SUMMARY | 2024-08-29 10:17 | XMS_ITS | Encounter Summary ---
Author Organization [facility] Address [address] [place] [address] Phone Care Team Providers Care Design Printing Machine Setter Name Role Phone Gladis Song MD Unavailable Thi Lugo MD Primary Care Provider [phone] Reason for Visit * Consultation (Routine) - Closed Specialty Diagnoses / Procedures Referred By Valerie florian Referred To Contact Neurology Diagnoses History of [place] [address] [facility] [address] [place] [address] Phone: tel: fax: [facility] (All Locations) Referral ID Status Reason Start Date Expiration Date V isits Requested Visits Authorized [id number] Closed Specialty Services Required 04/16/2022 05/16/2023 1 1 Encounter Details Date Type Department Care Team (Latest Contact Info) Description 10/05/2022 9:30 AM PYRIDINE RECOVERY OPERATOR Office Visit [facility] Stroke [address] [facility] [facility] [address] [place] [address] Jluis Gautam MD PhD [address] [place] [address] Other hyperlipidemia (Primary Dx); History of arterial ischemic stroke; Neuropathy (CMS/HCC) Social History Tobacco Use Types [...] on file Legal Sex Female 12:11 AM PYRIDINE RECOVERY OPERATOR Gender Identity Not on file Sexual Orientation Not on file Occupation Industry Job Start Date Job End Date Retired Not on file Not on file Not on file documented as of this encounter Last Filed Vital Signs Vital Sign Reading Time Taken Comments Blood Pressure 121/73 10/05/2022 9:52 AM PYRIDINE RECOVERY OPERATOR Pulse 79 10/05/2022 9:52 AM PYRIDINE RECOVERY OPERATOR Temperature - - Respiratory Rate - - Oxygen Saturation - - Inhaled Oxygen Concentration - - Weight 51.7 kg (114 lb) 10/05/2022 9:52 AM PYRIDINE RECOVERY OPERATOR Height 147.3 cm (4' 10 ) 10/05/2022 9:52 AM PYRIDINE RECOVERY OPERATOR Body Mass Index 23.83 10/05/2022 9:52 AM PYRIDINE RECOVERY OPERATOR documented in this encounter Progress Notes * Jluis Gautam MD PhD - 10/05/2022 9:30 AM CST Patient Name: MIRELLA ORANTES Medical Record Number (MRN): [id number] Date of (): 1950 Encounter Date: 10/05/2022 Chief Complaint Mirella Orantes is a 71 y.o. year old right handed woman with PMH of migraines with aura, transient global amnesia, SLE, TGA (x2), GERD, OA, and MDD who is here for follow-up of hospitalization for subcortical left MCA stroke. HPI Since the last visit on 02/09/22, she has done well without any new signs or symptoms suggestive of stroke or TIA. She denies any major illnesses or hospitalizations. She continues on Eliquis despite the absence of atrial fibrillation on cardiac event monitor. She was seen by Dr. Cano for her memory loss and diagnosed with mild cognitive impairment, due to either cerebral small vessel disease or Alzheimer's disease (or mixed). An MRI is pending. She notes that she has numbness in both of her feet--they feel like she is walking on lumps. She Was seen by Dr. Julianna Mirza and underwent an EMG/NCV. She has a follow-up appointment in a month. Allergies Allergen Reactions Latex Rash Sulfa (Sulfonamide Antibiotics) Swelling Levofloxacin Headache and Nausea only Nitrofurantoin Headache Current Outpatient Medications on File Prior to Visit Medication Sig Dispense Refill apixaban (Eliquis) 5 mg tablet Take 1 [...] 0 0 dicyclomine (BENTYL) 10 mg capsule TAKE 1 CAPSULE (10 MG TOTAL) BY MOUTH 2 (TWO) TIMES DAILY FOR 30DAYS. fluticasone propionate (FLOVENT HFA) 110 mcg/actuation inhaler [...] differently: Take 20 mg by mouth every morning) 15 tablet 1 potassium chloride ER (Klor-Con M20) 20 mEq CR tablet TAKE 2 TABLETS EVERY MORNING AND 2 TABLETS EVERY EVENING 360 tablet 3 abatacept/maltose (ORENCIA, WITH MALTOSE, IV) Infuse into a venous catheter every 30 (thirty) days (Patient not taking: Reported on 06/16/2021) albuterol HFA (PROVENTIL HFA,VENTOLIN HFA,PROAIR HFA) 90 mcg/actuation inhaler Inhale 90 puffs alosetron (LOTRONEX) 1 mg tablet Take 1 [...] day (Patient not taking: Reported on 10/05/2022) folic acid (FOLVITE) 1 mg tablet Take [...] (Patient not taking: Reported on 10/05/2022) No current facility-administered medications on file prior to visit. Patient Active Problem List Diagnosis Systemic lupus erythematosus ([facility]) ([facility]) Gastroesophageal reflux disease Tremor Osteopenia Moderate asthma with acute exacerbation Anxiety state BMI 28.0-28.9,adult Late, effect, cerebrovascular disease Borderline diabetes mellitus Osteoarthritis Restless legs Obstructive sleep apnea syndrome Obesity with body mass index 30 or greater Patent foramen ovale Benign paroxysmal positional vertigo of left ear Paroxysmal atrial fibrillation ([facility]) ([facility]) Other hyperlipidemia History of arterial ischemic stroke Epigastric abdominal pain CAD (coronary artery disease) Heart failure with preserved ejection fraction ([facility]) ([facility]) 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 ([facility]) ([facility]) Neuropathy ([facility]) Annual physical exam Hypertensive heart disease with chronic systolic congestive heart failure ([facility]) ([facility]) Tachycardia Dyspepsia Trigger finger of right thumb Benign essential tremor Forgetfulness Mild cognitive impairment Past Medical History: Diagnosis Date Asthma CAD (coronary artery disease) Cerebrovascular accident (CVA) ([facility]) ([facility]) Stroke CHF (congestive heart failure) ([facility]) ([facility]) GERD (gastroesophageal reflux disease) Heart murmur HX OTHER MEDICAL 2009 TIA / transient global amnesia Hyperlipidemia Hypertension Irritable bowel syndrome (IBS) Lupus ([facility]) ([facility]) PFO (patent foramen ovale) Sleep apnea TIA [...] Stability: Not on file Vital Signs Vitals: 10/05/22 0952 BP: 121/73 BP Location: Left arm Patient Position: Sitting Pulse: 79 Weight: 51.7 kg (114 lb) Height: 147.3 cm (4' 10 ) Review of Systems Cardiovascular: denied chest pain [...] tongue midline Motor: Tone: normal no fasciculation. Bulk: normal no atrophy Strength: Right Upper [...] normal tandem gait. Assessment/Plan Diagnosis Plan 1. Other hyperlipidemia 2. History of arterial ischemic stroke Ambulatory referral to Neurology 3. Neuropathy (CMS/HCC) 68 year old female with HTN, HLD, [...] control --Continue treatment with high dose atorvastatin. --continue Eliquis per Dr. Duggan. MRI will allow us to assess if her strokes are small vessel in etiology. Small vessel strokes are best treated by anti-platelet therapy. 2. Neuropathy--EMG/NCV completed, follow-up with Dr. Mirza 3. Forgetfulness--undergoing work-up by Dr. Cano at [facility] --have obtained MRI (prior MRI was interrupted by 's illness). 3. Follow-up with me in 6 months. Return in about 1 year (around 10/05/2023). Future Appointments Date Time Provider Department Center 01/22/2023 9:00 AM Spring, Fatimah Aguilar NP [facility] CTR 40 NL 06/20/2023 10:30 AM Julianna Mirza MD [facility] 6C NL 06/21/2023 10:30 AM Judah Duggan MD [facility] 8B Cardiology 10/04/2023 11:00 AM Jluis Gautam MD PhD [facility] 6C NL I spent 5 minutes pre-charting, 25 min [id number] with patient, and 10 min post-charting. Total 40 min. Jluis Gautam M.D., Ph.D. Chris Parsons Professor of Neurology Head, Cerebrovascular Disease Section Co-Director, Stroke & Cerebrovascular Section [facility] DINE RECOVERY OPERATOR documented in this encounter Plan of Treatment Not on file documented as of this encounter Visit Diagnoses Diagnosis Other hyperlipidemia- Primary History of arterial ischemic stroke Transient ischemic attack (TIA), and cerebral infarction without residual deficits Neuropathy (CMS/HCC) Mononeuritis of unspecified site documented in this encounter Orders Outpatient Referral Count Last Ordered Date Fir st Ordered Date AMB REFERRAL TO NEUROLOGY 10/05/2022 documented in this encounter Care Teams Design Printing Machine Setter Relationship Specialty [place] [address] [facility] [address] [place] [address] PCP - General Family Medicine 02/19/22 07/19/24 [place] [address] [facility] [address] [place] [address] Rheumatology 07/15/17 documented as of this encounter
--- OUTSIDE RECORDS SUMMARY | 2024-08-29 10:17 | XMS_ITS | Encounter Summary ---
Author Organization [facility] Address [address] [facility] [address] [place] [address] Phone Care Team Providers Care Obiee Report Developer Name Role Phone Gladis Song MD Unavailable Thi Lugo MD Primary Care Provider Reason for Visit * Neurology (Routine) - Closed Specialty Diagnoses / Procedures Referred By Valerie florian Referred To Contact Neurology Diagnoses Neuropathy (CMS/HCC) Peripheral polyneuropathy (CMS/HCC) Unspecified mononeuropathy of bilateral lower limbs Procedures EMG/NCV - Garett Giles MD Phone: tel: fax: [facility] Neurological Testing [facility] [facility] [address] [place] [address] Phone: tel: fax: Referral ID Status Reason Start Date Expiration Date Visits Re quested Visits Authorized [id number] Closed 08/30/2022 09/29/2023 1 1 Encounter Details Date Type Department Care Team (Latest Contact Info) Description 09/28/2022 8:20 AM DIRECTOR WOMEN Procedure visit [facility] Neurological Testing [address] [facility] [address] [place] [address] Neuropathy (CMS/HCC); Peripheral polyneuropathy (CMS/HCC); Unspecified mononeuropathy of bilateral lower limbs Social History Tobacco Use Types Packs/Day Years [...] on file Legal Sex Female 12:11 AM DIRECTOR WOMEN Gender Identity Not on file Sexual Orientation Not on file Occupation Industry Job Start Date Job End Date Retired Not on file Not on file Not on file documented as of this encounter Procedure Notes * Dinah Argueta MD - 09/28/2022 8:20 AM CSTAssociated Order(s): EMG/NCV - Pre-Procedure Diagnose(s): Neuropathy (CMS/HCC); Peripheral polyneuropathy (CMS/HCC); Unspecified mononeuropathy of bilateral lower limbs Post-Procedure Diagnose(s): Neuropathy (CMS/HCC); Peripheral polyneuropathy (CMS/HCC); Unspecified mononeuropathy of bilateral lower limbs Images from the original note were not included. EMG/NCV - Date/Time: 09/28/2022 8:27 AM Performed by: Dinah Argueta MD Authorized by: Garett Giles MD [facility] DEPARTMENT OF NEUROLOGY NEUROMUSCULAR ELECTRODIAGNOSTIC LABORATORY CLINICAL ELECTROMYOGRAPHY REPORT Patient: Chio Orantes Birthdate: 1950 Study No: [id number] MRN No: [id number] Referring M.D.: Garett Giles MD Date of Study:09/28/22 Examined by: Dinah Argueta MD REASON FOR REFERRAL: A 71 y.o. female, with history of SLE, complains of numbness in both feet and lower legs for about five years. She also feels that the left leg is weaker than the right. Query peripheral polyneuropathy and lumbosacral radiculopathy on the left. The procedure and possible complications were explained to the patient and a verbal consent was obtained. SUMMARY OF FINDINGS: The left peroneal CMAP amplitudes from the extensor digitorum brevis, distal motor latency and motor conduction velocities were normal. The left tibial CMAP amplitudes and distal motor latency were normal; motor conduction velocity wasintermediately slowed. The sural SNAPs were absent bilaterally. The left radial SNAP amplitude and sensory conduction velocity were normal. The tibial H wave was delayed bilaterally. Needle electromyography of the left tibialis anterior, medial gastrocnemius, vastus medialis, shorthead of biceps femoris, tensor fascia delia and dorsal interosseous pedis III/IV was remarkable for a few positive sharp waves in the dorsal interosseous pedis III/IV with chronic neurogenic changes in the dorsal interosseous pedis III/IV, tibialis anterior and medial gastrocnemius. Temperature was maintained above 32??C in the hand and above 30??C in the foot for all NCSs. CONCLUSION/INTERPRETATION: The abnormalities noted in this study are consistent with an axonal sensorimotor peripheral polyneuropathy based on the absent sural SNAPs, delayed tibial H wave latency bilaterally, intermediately slowed tibial motor conduction velocity, and distal denervation/reinnervation by needle electromyography. There are insufficient abnormalities in this study to support demyelinating neuropathy. Dinah Argueta MD Electromyographer MAnny. By signing this report, the attending Electromyographer certifies that he/she personally reviewed the electrodiagnostic study and edited the report to fully conform with his/her intent. Abbreviations : CMAP = compound muscle action potential SNAP = sensory nerve action potential CNAP = compound nerve action potential MUP = motor unit potential Fib = fibrillation PSW = positive sharp wave NCS = nerve conduction study RNS = repetitive nerve stimulation Inquiries regarding study/report - call . Appointments - call . Fax no.: . Our correspondence address : [address], [address] of [facility] Neurology, [facility] [place], [place] Data Report Full Name: Chio Orantes Gender: Female Date of : 1950 Visit Date: 09/28/2022 8:18 AM Age: 71 Years Examining Physician: Dr Argueta Referring Physician: Dr Giles Height: 5 feet 0 inch [facility] Nerve / Sites Latency Amplitude Segments Distance Lat Diff Velocity ms mV mm ms m/s L Peroneal - EDB Ankle 3.73 3.5 Ankle - EDB 100 Fib head 10.46 2.7 Fib head - Ankle 280 6.73 41.6 Pop fossa 12.35 2.1 Pop fossa - Fib head 80 1.90 42.2 Pop fossa - Ankle 8.63 L Tibial - AH Ankle 3.67 5.1 Ankle - AH 50 Pop fossa 13.25 2.4 Pop fossa - Ankle 310 9.58 32.3 SNC Nerve / Sites Onset Lat Peak Lat Amplitude OnsetDiff Distance Cond Danish ms ms ??V ms mm m/s L Radial - Anatomical snuff box (Forearm) Forearm 1.1 2.0 12 1.1 100 87 L Sural - Ankle (Calf) Calf NR NR NR NR 140 NR R Sural - Ankle (Calf) Calf NR NR NR NR 140 NR H Reflex Nerve H Lat Lat Hmax ms ms L Tibial - Soleus 37.4 41.9 R Tibial - Soleus 39.3 43.3 Summary Insertional Spontaneous MUAP Comments Muscle Nerve Roots Activity Fib PSW Fasc Other Dur. Amp Poly Recruit Activate Comments L. Tibialis anterior Deep peroneal (Fibular) L4-L5 Normal None None None . Sl Incr Sl Incr None Normal Normal . L. Gastrocnemius (Medial head) Tibial S1-S2 Normal None None None . Sl Incr Normal 25% Mild Red Normal . L. Vastus medialis Femoral L2-L4 Normal None None None . Normal Normal None Normal Normal . L. Biceps femoris (short head) Sciatic (peroneal division) L5-S2 Normal None None None . Normal Normal None Normal Normal . L. Tensor fasciae latae Superior gluteal L4-S1 Normal None None None . Normal Normal None Normal Normal . L. Dorsal interossei (pedis) III & IV Lateral plantar S1-S2 Normal None 1+ None . Mod Incr Sl Incr None Mod Red Normal . CTOR WOMEN documented in this encounter Plan of Treatment Not on file documented as of this encounter Procedures Procedure Name Priority Date/Time Associated Diagnosis Comments EMG/NCV Routine 09/28/2022 8:27 AM DIRECTOR WOMEN Neuropathy (CMS/HCC) Peripheral polyneuropathy (CMS/HCC) Unspecified mononeuropathy of bilateral lower limbs documented in this encounter Results * EMG/NCV (09/28/2022 8:27 AM DIRECTOR WOMEN) Anatomical Region Laterality Modality Other Narrative 09/28/2022 8:27 AM DIRECTOR WOMEN Dinah Argueta MD ? 09/28/2022 ??9:40 AM EMG/NCV - Date/Time: 09/28/2022 8:27 AM Performed by: Dinah Argueta MD Authorized by: Garett Giles MD Garett Giles MD NEUROLOGY ORDERABLES F inal Result documented in this encounter Visit Diagnoses Diagnosis Neuropathy (CMS/HCC) Mononeuritis of unspecified site Peripheral polyneuropathy (CMS/HCC) Unspecified mononeuropathy of bilateral lower limbs documented in this encounter Care Teams Obiee Report Developer Relationship Specialty [place] [address] [facility] [address] [place] [address] PCP - General Family Medicine 02/19/22 07/19/24 [place] [address] [facility] [address] [place] [address] Rheumatology 07/15/17 documented as of this encounter
--- OUTSIDE RECORDS SUMMARY | 2024-08-29 10:17 | XMS_ITS | Encounter Summary ---
Author Organization [facility] Healthcare Address [address] [place] [address] Care Team Providers Care Manager Image Name Role Phone Gladis Song MD Unavailable Thi Lugo MD Primary Care Provider [phone] Reason for Visit * Diagnostic Lab (Routine) - Closed Specialty Diagnoses / Procedures Referred By Contac t Referred To Contact Lab Diagnoses Neuropathy (CMS/HCC) Peripheral polyneuropathy (CMS/HCC) Procedures Neuromuscular Testing ([facility]) Garett Giles MD Phone: tel: fax: Referral ID Status Reason Start Date Expiration Date Visits Re quested Visits Authorized [id number] Closed 08/30/2022 09/29/2023 1 1 Encounter Details Date Type Department Care Team (Late st Contact Info) Description 08/30/2022 11:55 AM FISHER SCALLOP Lab [facility] ([facility]) [address] [place] [phone] Neuropathy (CMS/HCC); Peripheral polyneuropathy (CMS/HCC); Prediabetes; Hereditary and idiopathic neuropathy, unspecified Social History Tobacco Use Types Packs/Day Years [...] on file Legal Sex Female 12:11 AM FISHER SCALLOP Gender Identity Not on file Sexual Orientation Not on file Occupation Industry Job Start Date Job End Date Retired Not on file Not on file Not on file documented as of this encounter Plan of Treatment Not on file documented as of this encounter Procedures Procedure Name Priority Date/Time Associated Diagnosis Comments IMMUNOTYPING Routine 08/30/2022 11:27 AM FISHER SCALLOP Neuropathy (CMS/HCC) Peripheral polyneuropathy (CMS/HCC) EGFR Routine 08/30/2022 11:27 AM FISHER SCALLOP Neuropathy (CMS/HCC) Peripheral polyneuropathy (CMS/HCC) DIFFERENTIAL AUTO Routine 08/30/2022 11: 27 AM FISHER SCALLOP Neuropathy (CMS/HCC) IMMUNOGLOBULIN FREE LIGHT CHAINS Routine 08/30/2022 11:27 AM FISHER SCALLOP Neuropathy (CMS/HCC) Peripheral polyneuropathy (CMS/HCC) CBC WITH AUTO DIFFERENTIAL Routine 08/30/2022 11:27 AM FISHER SCALLOP Neuropathy (CMS/HCC) METHYLMALONIC ACID, SERUM Routine 08/30/2022 11:27 AM FISHER SCALLOP Neuropathy (CMS/HCC) Peripheral polyneuropathy (CMS/HCC) COPPER, SERUM Routine 08/30/2022 11:27 AM FISHER SCALLOP Neuropathy (CMS/HCC) Peripheral polyneuropathy (CMS/HCC) ERYTHROCYTE SEDIMENTATION RATE Routine 08/30/2022 11:27 AM FISHER SCALLOP Neuropathy (CMS/HCC) Peripheral polyneuropathy (CMS/HCC) TSH Routine 08/30/2022 11:27 AM FISHER SCALLOP Neuropathy (CMS/HCC) Peripheral polyneuropathy (CMS/HCC) Hereditary and idiopathic neuropathy, unspecified VITAMIN B1 Routine 08/30/2022 11:27 AM FISHER SCALLOP Neuropathy (CMS/HCC) Peripheral polyneuropathy (CMS/HCC) VITAMIN B6 Routine 08/30/2022 11:27 AM FISHER SCALLOP Neuropathy (CMS/HCC) Peripheral polyneuropathy (CMS/HCC) HEMOGLOBIN A1C Routine 08/30/2022 11:27 AM FISHER SCALLOP Neuropathy (CMS/HCC) Peripheral polyneuropathy (CMS/HCC) Prediabetes IGA Routine 08/30/2022 11:27 AM FISHER SCALLOP Neuropathy (CMS/HCC) Peripheral polyneuropathy (CMS/HCC) IGM Routine 08/30/2022 11:27 AM FISHER SCALLOP Neuropathy (CMS/HCC) Peripheral polyneuropathy (CMS/HCC) IGG Routine 08/30/2022 11:27 AM FISHER SCALLOP Neuropathy (CMS/HCC) Peripheral polyneuropathy (CMS/HCC) FOLATE Routine 08/30/2022 11:27 AM FISHER SCALLOP Neuropathy (CMS/HCC) Peripheral polyneuropathy (CMS/HCC) VITAMIN B12 Routine 08/30/2022 11:27 AM FISHER SCALLOP Neuropathy (CMS/HCC) Peripheral polyneuropathy (CMS/HCC) COMPREHENSIVE METABOLIC PANEL Routine 08/30/2022 11:27 AM FISHER SCALLOP Neuropathy (CMS/HCC) Peripheral polyneuropathy (CMS/HCC) documented in this encounter Results * (ABNORMAL) eGFR (08/30/2022 11:27 AM FISHER SCALLOP) [facility] eGFR 74(L) 90 - 130 mL/min/1. 73 m2 [facility] Comment: Interpretive Data Reference Interval Normal ?>/= 90 mL/min/1.73m2 Mildly decreased* ? 60 - 89 mL/min/1.73m2 Mildly to moderately decreased ?45 - 59 mL/min/1.73m2 Moderately to severely decreased ??30 - 44 mL/min/1.73m2 Severely decreased ?15 - 29 mL/min/1.73m2 Kidney Failure ?< 15 ??mL/min/1.73m2 *Relative to young adult level Estimated glomerular filtration rate is determined by the 2020 CKD-EPI equation recommended by the National Kidney Foundation (A Unifying Approach to GFR Estimation: Recommendations of the NKF-ASK Task Force on Reassessing the Inclusion of Race in Diagnosing Kidney Disease, JASN 202). The CKD-EPI equation should not be used for patients with unstable renal function and has not been validated in children and those over 70. Current interpretive data was last reviewed 2021. Blood 08/30/2022 11:2 7 AM FISHER SCALLOP 08/30/2022 12:02 PM FISHER SCALLOP Garett Giles MD LAB BLOOD ORDERABLES F inal Result [facility] Department [place] [address] * Differential, auto (08/30/2022 11:27 AM FISHER SCALLOP) Neutrophil abs 2.3 1.7 - 6.5 K/cumm [facility] Imm gran abs 0.0 0.0 - 0.1 K/cumm [facility] Lymphocyte abs 1.9 0.8 - 3.3 K/cumm [facility] Monocyte abs 0.5 0.2 - 0.8 K/cumm [facility] Eosinophil abs 0.3 0.0 - 0.5 K/cumm [facility] Basophil abs 0.1 0.0 - 0.1 K/cumm [facility] Neutrophil pct 45.7 % [facility] Comment: Interpretive Data Percent cell count reference ranges are not reported, since discordance with absolute values may lead to misinterpretation of CBC data. Current Interpretive Data was last revised on 2017. Imm gran pct 0.2 % [facility] Comment: Interpretive Data Percent cell count reference ranges are not reported, since discordance with absolute values may lead to misinterpretation of CBC data. Current Interpretive Data was last revised on 2017. Lymphocyte pct 36.9 % [facility] Comment: Interpretive Data Percent cell count reference ranges are not reported, since discordance with absolute values may lead to misinterpretation of CBC data. Current Interpretive Data was last revised on 2017. Monocyte pct 9.8 % [facility] Comment: Interpretive Data Percent cell count reference ranges are not reported, since discordance with absolute values may lead to misinterpretation of CBC data. Current Interpretive Data was last revised on 2017. Eosinophil pct 6.2 % [facility] Comment: Interpretive Data Percent cell count reference ranges are not reported, since discordance with absolute values may lead to misinterpretation of CBC data. Current Interpretive Data was last revised on 2017. Basophil pct 1.2 % [facility] Comment: Interpretive Data Percent cell count reference ranges are not reported, since discordance with absolute values may lead to misinterpretation of CBC data. Current Interpretive Data was last revised on 2017. Blood 08/30/2022 11:2 7 AM FISHER SCALLOP 08/30/2022 11:56 AM FISHER SCALLOP Garett Giles MD LAB BLOOD ORDERABLES F inal Result Performing Organization Address [facility] Co de Phone Number [facility] [place] [address] * TSH (08/30/2022 11:27 AM FISHER SCALLOP) Thyroid Stimulating Hormone 2.04 0.30 - 4.20 mcIUnit/mL [facility] Blood 08/30/2022 11:2 7 AM FISHER SCALLOP 08/30/2022 11:56 AM FISHER SCALLOP Garett Giles MD LAB BLOOD ORDERABLES F inal Result Performing Organization Address City/[facility] Co de Phone Number [facility] Department [place] [address] * Copper, serum (08/30/2022 11:27 AM FISHER SCALLOP) Copper 107 77 - 206 mcg/dL [facility] Comment: ADDITIONAL INFORMATION This test was developed and its performance characteristics determined by [facility] in a manner consistent with CLIA requirements. This test has not been cleared or approved by the U.S. Food and Drug Administration. Test Performed by: [facility] [address] [id number] [place]: Sukhdev Garcia M.D. Ph.D.; CLIA# [id number] Blood 08/30/2022 11:2 7 AM FISHER SCALLOP 08/30/2022 11:56 AM FISHER SCALLOP Garett Giles MD LAB BLOOD ORDERABLES F inal Result Performing Organization Address City/[facility] Co de Phone Number [facility] [place] [address] * Vitamin B12 (08/30/2022 11:27 AM FISHER SCALLOP) Vitamin B12 542 230 - 1,250 pg/mL [facility] Blood 08/30/2022 11:2 7 AM FISHER SCALLOP 08/30/2022 11:56 AM FISHER SCALLOP Garett Giles MD LAB BLOOD ORDERABLES F inal Result Performing Organization Address [facility] de Phone Number [facility] [place] [address] * Methylmalonic acid, serum (08/30/2022 11:27 AM FISHER SCALLOP) MMA 0.26 <=0.40 nmol/mL [facility] Comment: ADDITIONAL INFORMATION This test was developed and its performance characteristics determined by [facility] in a manner consistent with CLIA requirements. This test has not been cleared or approved by the U.S. Food and Drug Administration. Test Performed by: [facility] - [address] [address] [place]: Sukhdev Garcia M.D. Ph.D.; CLIA# [id number] Blood 08/30/2022 11:2 7 AM FISHER SCALLOP 08/30/2022 12:02 PM FISHER SCALLOP Garett Giles MD LAB BLOOD ORDERABLES F inal Result Performing Organization Address [facility] Co de Phone Number [facility] [place] [address] * Vitamin B6 (08/30/2022 11:27 AM FISHER SCALLOP) [facility] Pyridoxal phosphate (Vit B6) 7 5 - 50 mcg/L [facility] Comment: ADDITIONAL INFORMATION This test was developed and its performance characteristics determined by [facility] in a manner consistent with CLIA requirements. This test has not been cleared or approved by the U.S. Food and Drug Administration. Test Performed by: [facility] [address] [place] [address] [place]: Sukhdev Garcia M.D. Ph.D.; CLIA# [id number] Blood 08/30/2022 11:2 7 AM FISHER SCALLOP 08/30/2022 11:56 AM FISHER SCALLOP Garett Giles MD LAB BLOOD ORDERABLES F inal Result Performing Organization Address City/[facility]/ZIP Co de Phone Number [facility] [place] [address] * Vitamin B1 (08/30/2022 11:27 AM FISHER SCALLOP) Thiamine (Vit B1) 103 70 - 180 nmol/L [facility] Comment: ADDITIONAL INFORMATION This test was developed and its performance characteristics determined by [facility] in a manner consistent with CLIA requirements. This test has not been cleared or approved by the U.S. Food and Drug Administration. Test Performed by: [facility] [address] [id number] [place]: Sukhdev Garcia M.D. Ph.D.; CLIA# [id number] Blood 08/30/2022 11:2 7 AM FISHER SCALLOP 08/30/2022 12:48 PM FISHER SCALLOP Garett Giles MD LAB BLOOD ORDERABLES F inal Result Performing Organization Address City/[facility] Co de Phone Number [facility] [place] [address] * Folate (08/30/2022 11:27 AM FISHER SCALLOP) [facility] Folic acid >20.0 >=5.0 ng/mL [facility] Blood 08/30/2022 11:2 7 AM FISHER SCALLOP 08/30/2022 11:56 AM FISHER SCALLOP Garett Giles MD LAB BLOOD ORDERABLES F inal Result [facility] [place] [address] * Erythrocyte sedimentation rate (08/30/2022 11:27 AM FISHER SCALLOP) [facility] Erythrocyte sedimentation rate 13 1 - 30 mm/hr [facility] Blood 08/30/2022 11:2 7 AM FISHER SCALLOP 08/30/2022 11:56 AM FISHER SCALLOP Result [facility] Garett Giles MD LAB BLOOD ORDERABLES F inal Result [facility] Department [place] [address] * (ABNORMAL) Hemoglobin A1c (08/30/2022 11:27 AM FISHER SCALLOP) [facility] Hgb A1C 5.8(H) 4.0 - 5.6 % [facility] Estimated Average Glucose 120 mg/dL [facility] Comment: The ADA recommends reporting an estimated Average Glucose (eAG) with all Hemoglobin A1c results using the equation derived from a study of 507 normal and diabetic adults. ??Minority populations were underrepresented and children were not included. ?? (Diabetes Care 2020; 43(S1): S66-S76). ??The eAG is not equivalent to a fasting glucose. Blood 08/30/2022 11:2 7 AM FISHER SCALLOP 08/30/2022 11:56 AM FISHER SCALLOP Garett Giles MD LAB BLOOD ORDERABLES F inal Result Performing Organization Address City/[facility] Co de Phone Number [facility] [place] [address] * IgG (08/30/2022 11:27 AM FISHER SCALLOP) [facility] Immunoglobulin G 1,282.0 700.0 - 1,600.0 mg/dL [facility] Blood 08/30/2022 11:2 7 AM FISHER SCALLOP 08/30/2022 11:56 AM FISHER SCALLOP Garett Giles MD LAB BLOOD ORDERABLES F inal Result Performing Organization Address City/[facility] Co de Phone Number [facility] [place] [address] * IgM (08/30/2022 11:27 AM FISHER SCALLOP) Pathologist [facility] Immunoglobulin M 69.0 40.0 - 230.0 mg/dL [facility] Blood 08/30/2022 11:2 7 AM FISHER SCALLOP 08/30/2022 11:56 AM FISHER SCALLOP Garett Giles MD LAB BLOOD ORDERABLES F inal Result Performing Organization Address City/[facility] de Phone Number [facility] Department [place] [address] * IgA (08/30/2022 11:27 AM FISHER SCALLOP) Pathologist [facility] Immunoglobulin A 187.0 70.0 - 400.0 mg/dL [facility] Blood 08/30/2022 11:2 7 AM FISHER SCALLOP 08/30/2022 11:56 AM FISHER SCALLOP Garett Giles MD LAB BLOOD ORDERABLES F inal Result Performing Organization Address [facility] de Phone Number [facility] [address] * Immunotyping, serum (08/30/2022 11:27 AM FISHER SCALLOP) [facility] Immunofixation Please see comment [facility] Comment: NO PARAPROTEIN DETECTED Reviewed and signed by Saadia Brown MD 08/31/2022 Blood 08/30/2022 11:2 7 AM FISHER SCALLOP 08/30/2022 11:56 AM FISHER SCALLOP Garett Giles MD LAB BLOOD ORDERABLES F inal Result Performing Organization Address [facility] de Phone Number [facility] [place] [address] * (ABNORMAL) Immunoglobulin free light chains (08/30/2022 11:27 AM FISHER SCALLOP) [facility] [place]/Lambda ratio 1.51 0.26 - 1.65 [facility] [place] free light chain 2.59(H) 0.33 - 1.94 mg/dL [facility] Comment: Interpretive Data The Jeff [employer] [place] FLC assay procedure was used. Results from different manufacturers or methods may not be comparable. Serial testing should be performed using the same method. Lambda free light chain 1.72 0.57 - 2.63 mg/dL [facility] Comment: Interpretive Data The [employer] [place] FLC assay procedure was used. Results from different manufacturers or methods may not be comparable. Serial testing should be performed using the same method. Blood 08/30/2022 11:2 7 AM FISHER SCALLOP 08/30/2022 11:56 AM FISHER SCALLOP Garett Giles MD LAB BLOOD ORDERABLES F inal Result [facility] Department [place] [address] * Comprehensive metabolic panel (08/30/2022 11:27 AM FISHER SCALLOP) Sodium 143 135 - 145 mmol/L [facility] Potassium, pl 4.3 3.3 - 4.9 mmol/L [facility] Chloride 104 97 - 110 mmol/L [facility] CO2 32 22 - 32 mmol/L [facility] Anion gap 7 2 - 15 mmol/L [facility] BUN 18 8 - 25 mg/dL [facility] Creatinine 0.83 0.60 - 1.10 mg/dL [facility] Glucose 92 70 - 199 mg/dL [facility] Comment: Interpretive Data Fasting glucose >/= 126 mg/dl is diagnostic for diabetes. ?? Fasting is defined as no caloric intake for at least 8 hours. Fasting glucose between 100 mg/dl to 125 mg/dl is diagnostic of prediabetes. In a patient with classic symptoms of hyperglycemia or hyperglycemic crisis, a random glucose >/= 200 mg/dl is diagnostic for diabetes. In the absence of unequivocal hyperglycemia, results should be confirmed by repeat testing. The classification and Diagnosis of Diabetes Diabetes Care 2017;40 (Suppl. 1):S11. Current interpretive data was last revised 2017. Calcium 9.8 8.5 - 10.3 mg/dL [facility] Bilirubin, total 0.6 0.1 - 1.2 mg/dL [facility] Protein, pl 7.4 6.5 - 8.5 g/dL [facility] Albumin 4.4 3.5 - 5.0 g/dL [facility] Alk phos 85 40 - 130 Units/L [facility] ALT 27 7 - 45 Units/L [facility] AST 31 10 - 45 Units/L [facility] Blood 08/30/2022 11:2 7 AM FISHER SCALLOP 08/30/2022 11:56 AM FISHER SCALLOP Garett Giles MD LAB BLOOD ORDERABLES F inal Result [facility] Department [place] [address] * (ABNORMAL) CBC with auto differential (08/30/2022 11:27 AM FISHER SCALLOP) [facility] WBC 5.0 3.8 - 9.9 K/cumm [facility] Hgb 13.4 11.9 - 15.5 g/dL [facility] Hct 42.5 35.6 - 45.5 % [facility] Plt 243 150 - 400 K/cumm [facility] MPV 9.8 9.1 - 12.3 fL [facility] RBC 4.67 3.90 - 5.20 M/cumm [facility] MCV 91.0 81.3 - 96.4 fL [facility] MCH 28.7 27.1 - 33.3 pg [facility] MCHC 31.5(L) 32.3 - 35.7 g/dL [facility] RDW CV 15.3(H) 11.1 - 14.9 % [facility] RDW SD 50.4(H) 35.7 - 48.1 fL [facility] NRBC abs 0.00 0.00 - 0.01 K/cumm [facility] Blood 08/30/2022 11:2 7 AM FISHER SCALLOP 08/30/2022 11:56 AM FISHER SCALLOP Garett Giles MD LAB BLOOD ORDERABLES F inal Result [facility] Department [place] [address] documented in this encounter Visit Diagnoses Diagnosis Neuropathy (CMS/HCC) Mononeuritis of unspecified site Peripheral polyneuropathy (CMS/HCC) Prediabetes Other abnormal glucose Hereditary and idiopathic neuropathy, unspecified documented in this encounter Orders Lab Orders Without Results Count Last Ordered D ate First Ordered Date NEUROMUSCULAR TESTING ([facility]) 1 08/03 documented in this encounter Care Teams Manager Image Relationship Specialty [place] [address] [facility] [address] [place] [address] PCP - General Family Medicine 02/19/22 07/19/24 [place] [address] [facility] [address] [place] [address] Rheumatology 07/15/17 documented as of this encounter
--- OUTSIDE RECORDS SUMMARY | 2024-08-29 10:17 | XMS_ITS | Encounter Summary ---
Author Organization [facility] Address [address] [place] [address] Phone Care Team Providers Care Transmission And Coordination Engineer Name Role Phone Gladis Song MD Unavailable Thi Lugo MD Primary Care Provider [phone] Encounter Details Date Type Department Care Team (Late st Contact Info) Description 09/04/2022 Orders Only [facility] Neuro Muscle [address] [facility] Advanced Medicine 6th [place] [address] [place] [id number] Julianna Mirza MD [address] [place] [address] Numbness and tingling of both feet (Primary Dx) Social History Tobacco Use Types [...] on file Legal Sex Female 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 Gender Identity Not on file Sexual Orientation Not on file Occupation Industry Job Start Date Job End Date Retired Not on file Not on file Not on file documented as of this encounter Plan of Treatment Scheduled Orders Name Type Priority Associated Diagnoses Orde r Schedule Immunofixation, urine Lab Routine Numbness and tingling of both feet Expected: 09/04/2022, Expires: 09/04/2023 documented as of this encounter Visit Diagnoses Diagnosis Numbness and tingling of both feet- Primary documented in this encounter Care Teams Transmission And Coordination Engineer Relationship Specialty [place] [address] [facility] [address] [place] [address] PCP - General Family Medicine 02/19/22 07/19/24 [place] [address] [facility] [address] [place] [address] Rheumatology 07/15/17 documented as of this encounter
--- OUTSIDE RECORDS SUMMARY | 2024-08-29 10:17 | XMS_ITS | Encounter Summary ---
Author Organization [facility] Address [address] [place] [address] Phone Care Team Providers Care Life Claims Examiner Name Role Phone Gladis Song MD Unavailable Thi Lugo MD Primary Care Provider [phone] Reason for Visit * Consultation (Routine) - Closed Specialty Diagnoses / Procedures Referred By Contac t Referred To Contact Neurology Diagnoses Forgetfulness History of arterial ischemic stroke Jluis Gautam MD PhD [address] [place] [address] Phone: tel: fax: [facility] [address] [facility] [address] [facility] 6th [place] [address] [place] [address] Phone: tel: fax: Referral ID Status Reason Start Date Expiration Date V isits Requested Visits Authorized [id number] Closed Specialty Services Required 02/15/2022 03/17/2023 1 1 Encounter Details Date Type Department Care Team (Late st Contact Info) Description 07/18/2022 1:00 PM EMBROIDERY SPECIALIST Office Visit [facility] [address] [facility] [address] [facility] [address] [place] [address] [place] [address] Santiago Cano MD [address] [place] [address] Mild cognitive impairment (Primary Dx); Forgetfulness; History of arterial ischemic stroke Social History [...] on file Legal Sex Female 12:11 AM EMBROIDERY SPECIALIST Gender Identity Not on file Sexual Orientation Not on file Occupation Industry Job Start Date Job End Date Retired Not on file Not on file Not on file documented as of this encounter Last Filed Vital Signs Vital Sign Reading Time Taken Comments Blood Pressure 93/52 07/18/2022 12:40 PM EMBROIDERY SPECIALIST Pulse 73 07/18/2022 12:40 PM EMBROIDERY SPECIALIST Temperature - - Respiratory Rate - - Oxygen Saturation - - Inhaled Oxygen Concentration - - Weight 64 kg (141 lb) 07/18/2022 12:40 PM EMBROIDERY SPECIALIST Height 147.3 cm (4' 10 ) 07/18/2022 12:40 PM EMBROIDERY SPECIALIST Body Mass Index 29.47 07/18/2022 12:40 PM EMBROIDERY SPECIALIST documented in this encounter Patient Instructions * Patient Instructions* Santiago Cano MD - 07/18/2022 1:00 PM EMBROIDERY SPECIALIST 1. Nutrition: One multivitamin per day, Daily intake of fruits and vegetables, eat fish regularly. 2. Activity: Physical activity (daily walking, stretching for 30 minutes) 3. Education and Support: Alzheimer[employer] [place] Chapter: [phone]; [phone]; http://www.alz.org OIDERY SPECIALIST documented in this encounter Progress Notes * Santiago Cano MD - 07/18/2022 1:00 PM [facility] NEW PATIENT VISIT My total encounter time on 07/18/2022 was 80 minutes which was spent in the activities documented in the note. This includes time spent prior to the visit and after the visit in direct care of the patient. This time does not include time spent in any separately reportable services. Chief complaint: decreased recent memory Collateral source: Stef (patient's ) Referring physician: Dr. Jluis Gautam, Dr. Thi Lugo Ms. Chio Orantes is a 71 y.o. female referred for decreased recent memory. Collateral source is Stef Orantes, patient's of 53 years. Chio has a history of left MCA subcortical stroke and 3 episodes of transient global amnesia (last episode was 07/18). She has not had a stroke, TIA, or TGA now in several years. Stef states that Chio has had a gradual, subtle decrease in short term memory over the last 2 years. She remembers most recent things but not all. She loses things more than she used to. She is not repetitive. Her fpc memory is OK. She is oriented and not getting lost while driving. She has good judgement and problem solving ability. She can shop although sometimes forgets what she needs to buy. Cooking is good as is cleaning. She likes to rosanna. Her personal care is all intact. Her daughter also notes the memory change. Her language ability seems normal. She doesnot seem depressed. She has some trouble sleeping and is scheduled for a sleep evaluation to rule out sleep apnea. Her Stef has had an LVAD for many years and Chio spends much of her time taking care of Stef in regard to his medical problems. Current Outpatient Medications: albuterol HFA (PROVENTIL HFA,VENTOLIN HFA,PROAIR HFA) 90 mcg/actuation inhaler, Inhale 90 puffs, Disp: , Rfl: amoxicillin 500 mg capsule, TAKE 1 CAPSULE BY MOUTH EVERY 8 HOURS UNTIL FINISHED, Disp: , Rfl: apixaban (Eliquis) 5 mg [...] 2 TIMES PER DAY, Disp: , Rfl: bisoprolol (ZEBETA) 5 mg tablet, TAKE 1 [...] Rfl: 0 dicyclomine (BENTYL) 10 mg capsule, TAKE 1 CAPSULE (10 MG TOTAL) BY MOUTH 2 (TWO) TIMES DAILY FOR 30 DAYS., Disp: , Rfl: furosemide (LASIX) 20 mg tablet, Take 1 tablet (20 mg total) by mouth daily, Disp: 90 tablet, Rfl: 3 gabapentin (NEURONTIN) 100 mg capsule, Take 2 capsules (200 mg total) by mouth, Disp: , Rfl: methotrexate 2.5 mg tablet, TAKE 6 TABLETS BY MOUTH ONCE A WEEK, Disp: , Rfl: methylPREDNISolone (MEDROL DOSEPACK) 4 mg Dosepack, Take 1 tablet (4 mg total) by mouth, Disp: , Rfl: montelukast (SINGULAIR) 10 mg [...] taking: Reported on 06/16/2021), Disp: , Rfl: alosetron (LOTRONEX) 1 mg tablet, Take 1 mg by mouth as needed (Patient not taking: Reported on 06/22/2022), Disp: , Rfl: calcium carbonate-vitamin D3 1,250mg (500mg elemental) - 5 mcg (200 units) per tablet, Take by mouth daily (Patient not taking: Reported on 06/22/2022), Disp: , Rfl: dexlansoprazole (DEXILANT) 60 mg capsule, Take 60 mg by mouth 2 (two) times a day (Patient not taking: Reported on 06/22/2022), Disp: , Rfl: fluticasone propionate (FLOVENT HFA) 110 mcg/actuation inhaler, Inhale 2 puffs 2 (two) times a day Rinse mouth with water after use. Do not swallow. (Patient not taking: Reported on 06/22/2022), Disp: 2 Inhaler, Rfl: 2 folic acid (FOLVITE) 1 mg tablet, Take 1 tablet (1 mg total) by mouth daily. Take one tab daily (Patient taking differently: Take 1 mg by mouth every morning Take one tab daily), Disp: 90 tablet, Rfl: 0 hydroCHLOROthiazide (HYDRODIURIL) 25 mg tablet, TAKE 1 [...] taking: Reported on 06/22/2022), Disp: , Rfl: Allergies Allergen Reactions Latex Rash Sulfa (Sulfonamide Antibiotics) Swelling Levofloxacin Headache and Nausea only Nitrofurantoin Headache Patient Active Problem List Diagnosis Systemic lupus erythematosus (CMS/HCC) ([facility]) Gastroesophageal reflux disease Tremor Osteopenia Moderate asthma with acute exacerbation Anxiety state BMI 28.0-28.9,adult Late, effect, cerebrovascular disease Borderline diabetes mellitus Osteoarthritis Restless legs Obstructive sleep apnea syndrome Obesity with body mass index 30 or greater Patent foramen ovale Benign paroxysmal positional vertigo of left ear Paroxysmal atrial fibrillation (CMS/HCC) ([facility]) Other hyperlipidemia History of arterial ischemic stroke Epigastric abdominal pain CAD (coronary artery disease) Heart failure with preserved ejection fraction ([facility]/HCC) ([facility]) 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 ([facility]/HCC) ([facility]) Neuropathy ([facility]) Annual physical exam Hypertensive heart disease with chronic systolic congestive heart failure ([facility]/HCC) ([facility]) Tachycardia Dyspepsia Trigger finger of right thumb Benign essential tremor Forgetfulness Past Medical History: Diagnosis Date Asthma CAD (coronary artery disease) Cerebrovascular accident (CVA) (CMS/HCC) ([facility]) Stroke CHF (congestive heart failure) (CMS/HCC) ([facility]) GERD (gastroesophageal reflux disease) Heart murmur HX OTHER MEDICAL 2009 TIA / transient global amnesia Hyperlipidemia Hypertension Irritable bowel syndrome (IBS) Lupus ([facility]/HCC) ([facility]) PFO (patent foramen ovale) Sleep apnea TIA (transient ischemic attack) Past Surgical History: Procedure Laterality Date APPENDECTOMY 1974 BILATERAL OOPHORECTOMY 1974 SECTION 1974 COLONOSCOPY 2019 HYSTERECTOMY TONSILLECTOMY/ADENOIDECTOMY 1956 As a child UPPER GASTROINTESTINAL ENDOSCOPY 2019 Family History: There is a family history of dementia in her paternal grandfather (not characterized) Personal History: Ms. Orantes lives in a private home with her in [facility]. ROS Decrease in recent memory BP 93/52 (BP Location: Left arm, Patient Position: Sitting) Pulse 73 Ht 147.3 cm (4' 10 ) Wt 64 kg (141 lb) LMP (LMP Unknown) BMI 29.47 kg/m?? Medical Records Review: left MCA subcortical stroke and 3 episodes of transient global amnesia (last 07/13/16) No results found for: VITB12 Lab Results Component Value Date TSH 1.12 09/03/2019 Lab Results Component Value Date WBC 4.8 09/03/2019 HGB 13.4 09/03/2019 HCT 43.3 09/03/2019 MCV 93.9 09/03/2019 LABPLAT 223 09/03/2019 Lab Results Component Value Date GLUCOSE 84 09/03/2019 CALCIUM 9.7 09/03/2019 SODIUM 143 09/03/2019 POTASSIUM 3.4 (L) 09/03/2019 CO2 26 09/03/2019 CHLORIDE 103 09/03/2019 BUNSER 17 09/03/2019 CREATININE 0.85 09/03/2019 Lab Results Component Value Date ALT 40 (H) 09/03/2019 AST 45 (H) 09/03/2019 ALKPHOS 58 09/03/2019 BILITOT 0.7 09/03/2019 Physical Exam: There were no orthostatic complaints. Neurological exam: Cranial Nerves II-XII: Visual madrigal were full with no] extinction on double simultaneous stimulation. Pupils were equal, round and reactive to light. Extra ocular movements were full with normal smooth pursuit. Facial sensation was intact in all three divisions of the trigeminal nerve. Facial movement was symmetric. Hearing was intact. Palate elevation was symmetric. Shoulder shrug and head turning were symmetric. Tongue protrusion was midline. Motor exam revealed normal bulk, tone and strength throughout. She had a slight right arm postural tremor. Fine finger movements were symmetric. There was no pronator drift. Cbxudm-wpgh-oipvak and joka-nqub-waaj testing were normal. No bradykinesia was detected. Sensation was intact to light touch at the toes. Romberg was negative. Reflexes were symmetric at the biceps, triceps, brachioradialis and knees. Ankle jerks were present. Gait was normal. . Pull test was negative. She was fluent throughout the interview and examination. On examination of the memory, Ms. Orantes had largely correct recall of recent personal events. She had good insight into why she had come to [facility]. . She was not able to subtract serials threes, calculate the number of quarters in $6.75. She could draw a clock. NEUROBEHAVIORAL TESTING REPORT On formal neurobehavioral testing, this took 40 minutes. Testing was from 1- 1:30PM and my interpretation was from 8-8:40PM. Scores were in the normal range on tests of semantic memory (Stanley Naming,verbal fluency). Scores were in the mildly impaired on tests of speeded psychomotor performance (trailmaking A and B, digit symbol). Scores were in the very mildly impaired range on tests of episodicmemory (word list memory task, word list recall, logical memory). On more global tests, MMSE was 28(normal) and Short Blessed was 8 (mildy abnormal) with errors primarily in recent memory. These findings are consistent with mild cognitive impariment. Verbal Fluency Score (total # animals): 14 Stanley Naming Test 15 Item Stanley Naming Total Score (out of 15): 15 Mini-Mental Total Score ((out of 30): 28 Memory Task (total score out of 30): 15 Word List Recall (total score out of 10): 6 Word List Total Score (out of 25): 10 Logical Memory 10 Patient completed Trails A in (seconds): 38 Trails A # of errors: 0 Digit symbol Total Score (out of 90): 27 Clinical Dementia Rating Memory: 0.5 Questionable Orientation: 0 None Judgement & Problem Solvin.5 Questionable Community Affairs: 0 None Home & Hobbies: 0 None Personal Care: 0 None Global Score: 0.5 Sum of Boxes: 1 ASSESSMENT Ms. Chio Orantes is a 71 y.o. woman with a history of left subcortical stroke and 3 prior episodes of transient global amnesia which she recovered from completely. Over the last 2 years, she has developed very mild difficulty with recent memory but also on exam has some trouble with executive function and calculations. Her clinical dementia rating (CDR) score is a 0.5 or very mildly impaired. Given the relatively non-progressive nature of the memory impairment but also the difficulty with calculations and speed of processing, it seems that vascular causes may be relevant here. It is also possible that she is developing the earliest clinical manifestations of Alzhiemer's disease. PLAN Orders Placed This Encounter Procedures MRI Brain WO Contrast Standing Status: Future Standing Expiration Date: 08/17/2022 Order Specific Question: Is patient claustrophobic? Answer: No Order Specific Question: Is patient able to lie flat for at least one hour? Answer: Yes Order Specific Question: Where should this order be performed? Answer: [facility] [[id number]] Order Specific Question: Does the patient have a cardiovascular implantable electronic device, pacemaker, or implantable cardioverter-defibrillator? Answer: No Diagnosis: Mild cognitive impairment. May be due to cerebrovascular disease or possible early Alzheimer's disease. Have ordered a brain MRI as none recent to determine if there is worsening subcortical or cortical injury. 2. Activity: We recommended she stay mentally and physically active. We recommended that adult day care be considered. 3. Follow-up: Once MRI is done, will go over results with the patient and decide next steps at thattime. Santiago Cano MD [facility] Professor of Neurology [facility] [employer] [phone] OIDERY SPECIALIST documented in this encounter Plan of Treatment Not on file documented as of this encounter Visit Diagnoses Diagnosis Mild cognitive impairment- Primary Mild cognitive impairment, so stated Forgetfulness Other general symptoms History of arterial ischemic stroke Transient ischemic attack (TIA), and cerebral infarction without residual deficits documented in this encounter Historical Medications * This list may reflect changes made after this encounter. dicyclomine (BENTYL) 10 mg capsule 07/06/2022 methylPREDNISolo ne (MEDROL DOSEPACK) 4 mg Dosepack Take 1 tablet (4 mg total) by mouth 07/16/2022 09/25/2023 amoxicillin 500 mg capsule TAKE 1 CAPSULE BY MOUTH EVERY 8 HOURS UNTIL FINISHED 07/10/2022 09/25/2023 azithromycin (ZITHROMAX) 250 mg tablet as directed 07/16/2022 07/21/2022 added in this encounter Orders Outpatient Referral Count Last Ordered Date Fir st Ordered Date AMB REFERRAL TO NEUROLOGY 1 07/18/2022 documented in this encounter Care Teams Life Claims Examiner Relationship Specialty [place] [address] [facility] [address] [place] [address] PCP - General Family Medicine 02/19/22 07/19/24 [place] [address] [facility] [address] [place] [address] Rheumatology 07/15/17 documented as of this encounter
--- OUTSIDE RECORDS SUMMARY | 2024-08-29 10:17 | XMS_ITS | Encounter Summary ---
Author Organization [facility] Address [address] [place] [address] Phone Care Team Providers Care Production Analyst Name Role Phone Gladis Song MD Unavailable Thi Lugo MD Primary Care Provider [phone] Encounter Details Date Type Department Care Team (Late st Contact Info) Description 10/17/2022 Telephone [facility] Cardiology [address] [place] [address] [place] [address] Judah Duggan MD [address] [place] [address] Social History Tobacco Use Types [...] on file Legal Sex Female 12:11 AM PASTA PRESS OPERATOR Gender Identity Not on file Sexual Orientation Not on file Occupation Industry Job Start Date Job End Date Retired Not on file Not on file Not on file documented as of this encounter Miscellaneous Notes * Telephone Encounter - Dannielle Blackwood RN - 10/17/2022 2:57 PM CST Lmovm with Dr. Duggan recs; msg sent to scheduling A PRESS OPERATOR * Telephone Encounter - Dannielle Blackwood RN - 10/17/2022 2:57 PM CST ----- Message from Judah Duggan MD sent at 10/17/2022 2:53 PM PASTA PRESS OPERATOR ----- Labs ok. Please have her see next available CONSULTANT INTERN ----- Message ----- From: Dannielle Blackwood RN Sent: 10/17/2022 1:58 PM PASTA PRESS OPERATOR To: Judah Duggan MD ----- Message ----- From: Quinton Araujo Sent: 10/17/2022 1:55 PM PASTA PRESS OPERATOR To: Dannielle Blackwood RN See attached labs A PRESS OPERATOR documented in this encounter Plan of Treatment Not on file documented as of this encounter Visit Diagnoses Not on filedocumented in this encounter Care Teams Production Analyst Relationship Specialty [place] [id number] [address] PCP - General Family Medicine 02/19/22 07/19/24 [place] [id number] [address] Rheumatology 07/15/17 documented as of this encounter
--- OUTSIDE RECORDS SUMMARY | 2024-08-29 10:17 | XMS_ITS | Encounter Summary ---
Author Organization [facility] Address [address] [place] [address] Phone Care Team Providers Care Bpm Developer Name Role Phone Gladis Song MD Unavailable Thi Lugo MD Primary Care Provider [phone] Reason for Referral * Neurology (Routine) - Closed Specialty Diagnoses / Procedures Referred By Contac t Referred To Contact Neurology Diagnoses Neuropathy (CMS/HCC) Peripheral polyneuropathy (CMS/HCC) Unspecified mononeuropathy of bilateral lower limbs Procedures EMG/NCV - Garett Giles MD Phone: tel: fax: [facility] Neurological Testing [address] [place] [address] Phone: tel: fax: Referral ID Status Reason Start Date Expiration Date Visits Re quested Visits Authorized [id number] Closed 08/30/2022 09/29/2023 1 1 R SPECIALIST * Diagnostic Lab (Routine) - Closed Specialty Diagnoses / Procedures Referred By Contac t Referred To Contact Lab Diagnoses Neuropathy (CMS/HCC) Peripheral polyneuropathy (CMS/HCC) Procedures Neuromuscular Testing ([facility]) Garett Giles MD Phone: tel: fax: Referral ID Status Reason Start Date Expiration Date Visits Re quested Visits Authorized [id number] Closed 08/30/2022 09/29/2023 1 1 R SPECIALIST Reason for Visit * Consultation (Routine) - Closed Specialty Diagnoses / Procedures Referred By Contac t Referred To Contact Neurology Diagnoses Neuropathy (CMS/HCC) Jluis Gautam MD PhD [address] [place] [address] Phone: tel: fax: Abel Souza MD PhD [address] [place] [address] Phone: tel: fax: Referral ID Status Reason Start Date Expiration Date V isits Requested Visits Authorized [id number] Closed Specialty Services Required 02/15/2022 03/17/2023 1 1 Encounter Details Date Type Department Care Team (Latest Contact Info) Description 08/30/2022 9:00 AM DONOR SPECIALIST Office Visit [facility] Neuro Muscle [address] [place] [address] [place] [address] Julianna Mirza MD [address] [address] Neuropathy (CMS/HCC); Peripheral polyneuropathy (CMS/HCC); Hereditary and idiopathic neuropathy, unspecified; Prediabetes; Unspecified mononeuropathy of bilateral lower limbs Social [...] on file Legal Sex Female 12:11 AM DONOR SPECIALIST Gender Identity Not on file Sexual Orientation Not on file Occupation Industry Job Start Date Job End Date Retired Not on file Not on file Not on file documented as of this encounter Last Filed Vital Signs Vital Sign Reading Time Taken Comments Blood Pressure 159/82 08/30/2022 9:01 AM DONOR SPECIALIST Pulse 67 08/30/2022 9:01 AM DONOR SPECIALIST Temperature - - Respiratory Rate - - Oxygen Saturation - - Inhaled Oxygen Concentration - - Weight 66.2 kg (146 lb) 08/30/2022 9:01 AM DONOR SPECIALIST Height 147.3 cm (4' 10 ) 08/30/2022 9:01 AM DONOR SPECIALIST Body Mass Index 30.51 08/30/2022 9:01 AM DONOR SPECIALIST documented in this encounter Progress Notes * Garett Giles MD - 08/30/2022 9:00 AM CST [facility] [address] [place] [address] - Home Page: [email or web address] NAME: Chio Orantes : 1950 WAYLON: 08/30/2022 CHIEF COMPLAINT: Peripheral neuropathy evaluation HISTORY OF PRESENT ILLNESS: Chio Orantes is a 71 y.o. 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 Her symptoms started over a year or more ago (per chart review, since 2019). She describes a combination of pain as well as paresthesias. She describes the pain as sharp sensation, sometimes like herleg twists, particularly at night. Her paresthesias are described as sensation that she is walking on lump or rocks . She sometimes also feels like she is wearing socks or a band around her legs ev en when she is not; this sensation is worse at night. Her pain and paresthesias come up to the level of the mid-calf. Over the course of symptoms, pain has gradually gotten slightly worse while sensory component has been stable. She was started on Gabapentin 200 mg nightly at the beginning of this year. She reports that she stopped taking it due to concerns that it could make her more forgetful. She continues to have weakness on the right side of her body (residual from stroke), but denies weakness anywhere else. She has long-standing back pain that goes across her lower back and radiates down the front of her leg. She describes this pain as shooting. When she stands for prolonged periods of time, this pain gets better. Bending over and climbing up steps aggravates pain. Denies double vision though she can get blurry vision/flashing lights with migraine auras. She reports that sometimes during the night, she experiences numbness/tingling in her R arm, but she sleeps on her R arm and this improves over the course of the day. She historically experienced this sensation in the bilateral upper extremities, but this has since resolved. No bladder/bowel symptoms. No unintentional weight loss. She has muscle pain that has been long-standing which she attributes to lupus. No difficulties with chewing/swallowing. She has a long-standing R tremor that improves with EtOH use. No falls at home. Recent stressors include needing to care for her at home. Per chart review, she had EMG/NCS performed in 09/2018 for two years of non- progressive numbness of both forefeet. Numbness was worse at night and aggravated by cold. She also had chronic low back pain at the time without radiation to the legs. She endorsed intermittent numbness in the hands. Findings of electrodiagnostics at that time were most consistent with a distal, predominantly axonal, peripheral neuropathy. Neuropathy was largely sensory. PAST MEDICAL HISTORY: Patient Active Problem List Diagnosis Systemic lupus erythematosus (CMS/HCC) (HCC) Gastroesophageal reflux disease Tremor Osteopenia Moderate asthma with acute exacerbation Anxiety state BMI 28.0-28.9,adult Late, effect, cerebrovascular disease Borderline diabetes mellitus Osteoarthritis Restless legs Obstructive sleep apnea syndrome Obesity with body mass index 30 or greater Patent foramen ovale Benign paroxysmal positional vertigo of left ear Paroxysmal atrial fibrillation (CMS/HCC) (HCC) Other hyperlipidemia History of arterial ischemic stroke Epigastric abdominal pain CAD (coronary artery disease) Heart failure with preserved ejection fraction (CMS/HCC) ([facility]) 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 ALLERGIES: As cited and reviewed in the [facility] medical record. SOCIAL HISTORY: Social History Socioeconomic History Marital status: Spouse name: Not on file Number of children: Not on file Years of education: Not on file Highest education level: Not on file Occupational History Occupation: Retired Tobacco Use Smoking status: Never Smokeless tobacco: Never Vaping Use Vaping [...] on file Housing Stability: Not on file No smoking, EtOH use is rare (1-2/month, one glass of wine). FAMILY HISTORY: Mom with RA, DM. 2/2 [place] Dad with asthma, had TB REVIEW OF SYSTEMS: A complete review of symptoms was performed including constitutional symptoms, cardiovascular, respiratory, gastrointestinal, genitourinary, musculoskeletal, neurological, psychiatric, endocrine, immunologic, integumentary, hematological, eyes, ears, nose, mouth and throat. All other systems negative (except as per HPI). PHYSICAL EXAMINATION: VITAL SIGNS: Vitals BP 159/82 (BP Location: Left arm, Patient Position: Sitting) Pulse 67 Ht 147.3 cm (4' 10 ) Wt 66.2 kg (146 lb) LMP (LMP Unknown) BMI 30.51 kg/m?? HENT: normocephalic, atraumatic, mucous membranes moist EYES: anicteric sclera PULM: no increased work of breathing on room air CV/EXT: Extremities are warm and well perfused; no visible edema SKIN: dry, no suspicious rashes or lesions noted on exposed skin PSYCH: calm and cooperative, eye contact appropriate for medical condition NEUROLOGIC EXAMINATION: MENTAL STATUS and LANGUAGE: Awake and alert. Able to provide a detailed history. Speech was fluent and without errors. CRANIAL NERVES: Pupils are equal, round, and reactive to light, visual madrigal full to finger counting, orthotropic in primary gaze, extra-occular movements are full, no nystagmus, sensation intact tolight touch in V1-V3 distributions, face symmetric at rest and with activation, orbicularis oculi and helena are strong, hearing intact to conversation, palate elevates symmetrically, tongue is midlinewith brisk side to side movements, no dysarthria. MOTOR: Right Left Deltoid 4+ 5 Biceps 5 5 Triceps 5- 5 WE 5- 5 FDI 5 5 APB 5 5 Hip Flexion 5- 5 Quadriceps 5 5 Hamstrings 5 5 Ankle Dorsiflexion 5 5 Ankle Plantar Flexion 5 5 Normal bulk. R tremor. Increased tone at the ankles. Finger taps and foot taps slow bilaterally, but symmetric. SENSORY: Sensation intact and symmetric to light touch without gradient. Joint position sensation was normal at the great toes bilaterally. Sharp sensation over the R foot slightly diminished compared to the L foot with gradient, normalized at the level of the mid-tena. Sensory examination showed the following by the white scale on the [employer] tuning fork: Right Left Fingers 6 6 Hip 0 0 Knees 0 0 Ankles 0 0 Toes 0 0 REFLEXES: Reflexes were as follows: Right Left Biceps 2 2 Triceps 2 2 Patella 3 3 Ankles 1 1 COORDINATION: Ixqwwp-bclb-knfvyw without dysmetria. Heel-tena without ataxia. GAIT: The patient entered the office unassisted . She was able to arise from a chair with some difficulty due to back pain. Gait was slightly wide-based and steady with normal stride length and speed. When turning she took about 2-3 steps. Able to walk on heels and toes. Romberg negative. DIAGNOSTIC DATA: Lab Results Component Value Date HGBA1C 5.8 (H) 05/13/2018 HGBA1C 6.0 04/24/2015 CK 134 02/06/2016 IMPRESSION AND PLAN: Chio Orantes is a 71 y.o. 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 Her exam is remarkable for a combination of upper motor and lower motor neuron signs with mild R sided weakness (residual from prior stroke), profound vibratory sensation loss in the bilateral lower extremities to the level of the hips and brisk reflexes at the patellae. Her symptoms likely multifactorial in nature. Her symptoms are suggestive of peripheral neuropathy in setting of long-standing autoimmune disease (SLE). Medication side effects with MTX use may also result in mineral deficiencies. Her last HgbA1c was also notable for borderline DM, though her glucose on recent CMP was normal. In the setting of her lower back pain with radiation of shooting paindown her legs may also be indicative of concomitant radiculopathy. Plan: - Serum/urine studies: CBC, CMP, TFTs, Cu, B12, MMA, B6, B1, folate, HgbA1c, IgG, IgA, IgM, ESR, immunoglobulin free light chains, serum immuno-typing, [facility] (Neuronopathy ab), urine immunofixation. - EMG/NCS: query peripheral neuropathy and lumbosacral radiculopathy. - Will plan to obtain MRI C-spine, but will wait for results of EMG/NCS to see if need more extensive spine imaging. - Will plan to review results in about one month. - Follow-up with Dr. Mirza in 6 months Garett Giles MD Pediatric Neurology Resident, PGY-3 11:53 AM 08/30/22 Cosigned by Julianna Mirza MD at 09/04/2022 12:49 PM DONOR SPECIALIST R SPECIALIST R SPECIALIST Associated attestation - Julianna Mirza MD - 09/04/2022 12:49 PM DONOR SPECIALIST I have seen and examined the patient. I agree with the findings and plan of care as documented in the resident/fellow's note. My total encounter time on 08/30/2022 was 30 minutes which was spent in the activities documented in the note. This includes time spent prior to the visit and after the visit in direct care of the patient. This time does not include time spent in any separately reportable services. documented in this encounter Plan of Treatment Scheduled Orders Name Type Priority Associated Diagnoses Orde r Schedule Neuromuscular Testing ([facility]) Pathology and Cytology Routine Neuropathy (CMS/HCC) Peripheral polyneuropathy ([facility]) Expected: 08/30/2022, Expires: 08/30/2023 documented as of this encounter Results * EMG/NCV (09/28/2022 8:27 AM DONOR SPECIALIST) Anatomical Region Laterality Modality Other Narrative 09/28/2022 8:27 AM DONOR SPECIALIST Dinah Argueta MD ? 09/28/2022 ??9:40 AM EMG/NCV - Date/Time: 09/28/2022 8:27 AM Performed by: Dinah Argueta MD Authorized by: Garett Giles MD Garett Giles MD NEUROLOGY ORDERABLES F inal Result * (ABNORMAL) CBC with auto differential (08/30/2022 11:27 AM DONOR SPECIALIST) WBC 5.0 3.8 - 9.9 K/cumm [facility] Hgb 13.4 11.9 - 15.5 g/dL [facility] Hct 42.5 35.6 - 45.5 % [facility] Plt 243 150 - 400 K/cumm [facility] MPV 9.8 9.1 - 12.3 fL [facility] RBC 4.67 3.90 - 5.20 M/cumm [facility] MCV 91.0 81.3 - 96.4 fL [facility] MCH 28.7 27.1 - 33.3 pg [facility] MCHC 31.5(L) 32.3 - 35.7 g/dL [facility] RDW CV 15.3(H) 11.1 - 14.9 % [facility] RDW SD 50.4(H) 35.7 - 48.1 fL [facility] NRBC abs 0.00 0.00 - 0.01 K/cumm [facility] Blood 08/30/2022 11:2 7 AM DONOR SPECIALIST 08/30/2022 11:56 AM DONOR SPECIALIST us Garett Giles MD LAB BLOOD ORDERABLES F inal Result [facility] [place] [address] * Comprehensive metabolic panel (08/30/2022 11:27 AM DONOR SPECIALIST) Sodium 143 135 - 145 mmol/L [facility] Potassium, pl 4.3 3.3 - 4.9 mmol/L [facility] Chloride 104 97 - 110 mmol/L [facility] CO2 32 22 - 32 mmol/L [facility] Anion gap 7 2 - 15 mmol/L [facility] BUN 18 8 - 25 mg/dL [facility] Creatinine 0.83 0.60 - 1.10 mg/dL [facility] Glucose 92 70 - 199 mg/dL [facility] Comment: Interpretive Data Fasting glucose >/= [...] 2017. Calcium 9.8 8.5 - 10.3 mg/dL [facility] Bilirubin, total 0.6 0.1 - 1.2 mg/dL [facility] Protein, pl 7.4 6.5 - 8.5 g/dL [facility] Albumin 4.4 3.5 - 5.0 g/dL [facility] Alk phos 85 40 - 130 Units/L [facility] ALT 27 7 - 45 Units/L [facility] AST 31 10 - 45 Units/L [facility] Blood 08/30/2022 11:2 7 AM DONOR SPECIALIST 08/30/2022 11:56 AM DONOR SPECIALIST Result [facility] Garett Giles MD LAB BLOOD ORDERABLES F inal Result Performing Organization Address [facility] de Phone Number [facility] [place] [address] * (ABNORMAL) Immunoglobulin free light chains (08/30/2022 11:27 AM DONOR SPECIALIST) Rice Tracts/Lambda ratio 1.51 0.26 - 1.65 [facility] Rice Tracts free light chain 2.59(H) 0.33 - 1.94 mg/dL [facility] Comment: Interpretive Data The Jeff Ig Rice Tracts FLC assay procedure was used. Results from different manufacturers or methods may not be comparable. Serial testing should be performed using the same method. Lambda free light chain 1.72 0.57 - 2.63 mg/dL [facility] Comment: Interpretive Data The Jeff Ig Lambda FLC assay procedure was used. Results from different manufacturers or methods may not be comparable. Serial testing should be performed using the same method. Blood 08/30/2022 11:2 7 AM DONOR SPECIALIST 08/30/2022 11:56 AM DONOR SPECIALIST Result [facility] Garett Giles MD LAB BLOOD ORDERABLES F inal Result Performing Organization Address [facility] de Phone Number [facility] [place] [address] * Immunotyping, serum (08/30/2022 11:27 AM DONOR SPECIALIST) Pathologist [facility] Immunofixation Please see comment [facility] Comment: NO PARAPROTEIN DETECTED Reviewed and signed by Saadia Brown MD 08/31/2022 Blood 08/30/2022 11:2 7 AM DONOR SPECIALIST 08/30/2022 11:56 AM DONOR SPECIALIST Result [facility] Garett Giles MD LAB BLOOD ORDERABLES F inal Result Performing Organization Address City/[facility] Co de Phone Number [facility] [place] [address] * IgA (08/30/2022 11:27 AM DONOR SPECIALIST) Immunoglobulin A 187.0 70.0 - 400.0 mg/dL [facility] Blood 08/30/2022 11:2 7 AM DONOR SPECIALIST 08/30/2022 11:56 AM DONOR SPECIALIST Garett Giles MD LAB BLOOD ORDERABLES F inal Result Performing Organization Address [facility] de Phone Number [facility] [place] [address] * IgM (08/30/2022 11:27 AM DONOR SPECIALIST) Immunoglobulin M 69.0 40.0 - 230.0 mg/dL [facility] Blood 08/30/2022 11:2 7 AM DONOR SPECIALIST 08/30/2022 11:56 AM DONOR SPECIALIST Result [facility] Garett Giles MD LAB BLOOD ORDERABLES F inal Result Performing Organization Address [facility] de Phone Number [facility] [place] [address] * IgG (08/30/2022 11:27 AM DONOR SPECIALIST) Immunoglobulin G 1,282.0 700.0 - 1,600.0 mg/dL [facility] Blood 08/30/2022 11:2 7 AM DONOR SPECIALIST 08/30/2022 11:56 AM DONOR SPECIALIST Garett Giles MD LAB BLOOD ORDERABLES F inal Result Performing Organization Address City/[facility] Co de Phone Number [facility] [place] [address] * (ABNORMAL) Hemoglobin A1c (08/30/2022 11:27 AM DONOR SPECIALIST) Pathologist [facility] Hgb A1C 5.8(H) 4.0 - 5.6 % [facility] Estimated Average Glucose 120 mg/dL [facility] Comment: The ADA recommends reporting an estimated Average Glucose (eAG) with all Hemoglobin A1c results using the equation derived from a study of 507 normal and diabetic adults. ??Minority populations were underrepresented and children were not included. ?? (Diabetes Care 2020; 43(S1): S66-S76). ??The eAG is not equivalent to a fasting glucose. Blood 08/30/2022 11:2 7 AM DONOR SPECIALIST 08/30/2022 11:56 AM DONOR SPECIALIST Garett Giles MD LAB BLOOD ORDERABLES F inal Result Performing Organization Address City/[facility]/ZIP Co de Phone Number [facility] [place] [address] * Erythrocyte sedimentation rate (08/30/2022 11:27 AM DONOR SPECIALIST) Pathologist [facility] Erythrocyte sedimentation rate 13 1 - 30 mm/hr [facility] Blood 08/30/2022 11:2 7 AM DONOR SPECIALIST 08/30/2022 11:56 AM DONOR SPECIALIST Garett Giles MD LAB BLOOD ORDERABLES F inal Result [facility] [place] [address] * Folate (08/30/2022 11:27 AM DONOR SPECIALIST) [facility] Folic acid >20.0 >=5.0 ng/mL [facility] Blood 08/30/2022 11:2 7 AM DONOR SPECIALIST 08/30/2022 11:56 AM DONOR SPECIALIST Garett Giles MD LAB BLOOD ORDERABLES F inal Result Performing Organization Address [facility] de Phone [place] [address] * Vitamin B1 (08/30/2022 11:27 AM DONOR SPECIALIST) Thiamine (Vit B1) 103 70 - 180 nmol/L [facility] Comment: ADDITIONAL INFORMATION This test was developed and its performance characteristics determined by [facility] in a manner consistent with CLIA requirements. This test has not been cleared or approved by the U.S. Food and Drug Administration. Test Performed by: [place] [address] [employer]: Sukhdev Garcia M.D. Ph.D.; CLIA# [id number] Blood 08/30/2022 11:2 7 AM DONOR SPECIALIST 08/30/2022 12:48 PM DONOR SPECIALIST Garett Giles MD LAB BLOOD ORDERABLES F inal Result Performing Organization Address [facility] de [place] [address] * Vitamin B6 (08/30/2022 11:27 AM DONOR SPECIALIST) Pyridoxal phosphate (Vit B6) 7 5 - 50 mcg/L [facility] Comment: ADDITIONAL INFORMATION This test was developed and its performance characteristics determined by [facility] in a manner consistent with CLIA requirements. This test has not been cleared or approved by the U.S. Food and Drug Administration. Test Performed by: [place] [address] [employer]: Sukhdev Garcia M.D. Ph.D.; CLIA# [id number] Blood 08/30/2022 11:2 7 AM DONOR SPECIALIST 08/30/2022 11:56 AM DONOR SPECIALIST Garett Giles MD LAB BLOOD ORDERABLES F inal Result Performing Organization Address [facility] de Phone Number [facility] [place] [address] * Methylmalonic acid, serum (08/30/2022 11:27 AM DONOR SPECIALIST) Pathologist [facility] MMA 0.26 <=0.40 nmol/mL [facility] Comment: ADDITIONAL INFORMATION This test was developed and its performance characteristics determined by [facility] in a manner consistent with CLIA requirements. This test has not been cleared or approved by the U.S. Food and Drug Administration. Test Performed by: [address] [address] [employer]: Sukhdev Garcia M.D. Ph.D.; CLIA# [id number] Blood 08/30/2022 11:2 7 AM DONOR SPECIALIST 08/30/2022 12:02 PM DONOR SPECIALIST Garett Giles MD LAB BLOOD ORDERABLES F inal Result Performing Organization Address [facility] de Phone Number [facility] [place] [address] * Vitamin B12 (08/30/2022 11:27 AM DONOR SPECIALIST) Vitamin B12 542 230 - 1,250 pg/mL [facility] Blood 08/30/2022 11:2 7 AM DONOR SPECIALIST 08/30/2022 11:56 AM DONOR SPECIALIST Garett Giles MD LAB BLOOD ORDERABLES F inal Result Performing Organization Address City/[facility] Co de Phone Number [facility] [place] [address] [place] [address] * Copper, serum (08/30/2022 11:27 AM DONOR SPECIALIST) Copper 107 77 - 206 mcg/dL [facility] Comment: ADDITIONAL INFORMATION This test was developed and its performance characteristics determined by [facility] in a manner consistent with CLIA requirements. This test has not been cleared or approved by the U.S. Food and Drug Administration. Test Performed by: [facility] [place] [address] Echo Vasc Tech: Sukhdev Garcia M.D. Ph.D.; CLIA# [id number] Blood 08/30/2022 11:2 7 AM DONOR SPECIALIST 08/30/2022 11:56 AM DONOR SPECIALIST Garett Giles MD LAB BLOOD ORDERABLES F inal Result Performing Organization Address [facility] [place]/[facility] Co de Phone Number [facility] [place] [place] [address] * TSH (08/30/2022 11:27 AM DONOR SPECIALIST) Thyroid Stimulating Hormone 2.04 0.30 - 4.20 mcIUnit/mL [facility] Blood 08/30/2022 11:2 7 AM DONOR SPECIALIST 08/30/2022 11:56 AM DONOR SPECIALIST Garett Giles MD LAB BLOOD ORDERABLES F inal Result Performing Organization Address City/[facility] Co de Phone Number [facility] [place] [address] [place] [address] documented in this encounter Visit Diagnoses Diagnosis Neuropathy (CMS/HCC) Mononeuritis of unspecified site Peripheral polyneuropathy (CMS/HCC) Hereditary and idiopathic neuropathy, unspecified Prediabetes Other abnormal glucose Unspecified mononeuropathy of bilateral lower limbs Neuropathy (CMS/HCC) Mononeuritis of unspecified site Peripheral polyneuropathy (CMS/HCC) Unspecified mononeuropathy of bilateral lower limbs documented in this encounter Orders Outpatient Referral Count Last Ordered Date Fir st Ordered Date AMB REFERRAL TO NEUROLOGY 1 08/30/2022 documented in this encounter Care Teams Bpm Developer Relationship Specialty [place] [id number] [facility] [address] [place] [address] PCP - General Family Medicine 02/19/22 07/19/24 [place] [id number] [facility] [address] [place] [address] Rheumatology 07/15/17 documented as of this encounter
--- OUTSIDE RECORDS SUMMARY | 2024-08-29 10:18 | XMS_ITS | Encounter Summary ---
Author Organization [facility] Address [address] [place] [address] Phone Care Team Providers Care Chocolate Temperer Name Role Phone Gladis Song MD Unavailable Santiago Bueno MD Primary Care Provider [phone] Encounter Details Date Type Department Care Team (Late st Contact Info) Description 06/16/2021 11:15 AM CDT Office Visit [facility] Cardiology [address] [facility] 8th [place] [address] [place] [id number] Judah Duggan MD [address] [place] [address] Paroxysmal atrial fibrillation (CMS/HCC) (HCC) (Primary Dx); Chronic heart failure with preserved ejection fraction (CMS/HCC) (HCC); Coronary artery disease involving [place] heart without angina pectoris, unspecified vessel or [...] on file Legal Sex Female 12:11 AM [employer] Gender Identity Not on file Sexual Orientation Not on file Occupation Industry Job Start Date Job End Date Retired Not on file Not on file Not on file documented as of this encounter Last Filed Vital Signs Vital Sign Reading Time Taken Comments Blood Pressure 110/75 06/16/2021 11:29 AM CDT Pulse 66 06/16/2021 11:29 AM CDT Temperature - - Respiratory Rate - - Oxygen Saturation 95% 06/16/2021 11:29 AM CDT Inhaled Oxygen Concentration - - Weight 69.6 kg (153 lb 6.4 oz) 06/16/2021 11:29 AM CDT Height 147.3 cm (4' 10 ) 06/16/2021 11:29 AM CDT Body Mass Index 32.06 06/16/2021 11:29 AM CDT documented in this encounter Progress Notes * Kentrell Rea MD - 06/16/2021 11:15 AM CDT Cardiology Clinic Note Patient Name: Chio Orantes : 1950 Date of Service: 06/16/2021 Referring: Dr. Bueno Patient Active Problem List Diagnosis Date Noted ??? Paroxysmal atrial fibrillation (CMS/HCC) ([facility]) 05/21/2018 Priority: High Although this is not well documented, she does carry this diagnosis in her chart. 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 We will continue Eliquis. She has had no more strokes or taste and she has been on Eliquis. ??? Other hyperlipidemia 05/21/2018 Priority: High ??? History of arterial ischemic stroke 05/21/2018 Priority: High Acute ischemic stroke in March 2016 and multiple prior TIAs.Also with history of subcortical strokes ??? Trigger finger of right thumb 03/03/2020 Added automatically from request for surgery [id number] ??? Tachycardia 09/03/2019 ??? Dyspepsia 09/03/2019 ??? Annual physical exam 06/01/2019 ??? Hypertensive heart disease with chronic systolic congestive heart failure (CMS/HCC) ([facility]) 06/01/2019 ??? 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 (CMS/HCC) ([facility]) 12/26/2018 ??? Neuropathy (CMS/HCC) 12/26/2018 ??? CAD (coronary artery disease) 11/21/2018 Mild coronary artery disease 20-30% narrowing in the circumflex and right coronar artery from 05/2018. ??? Heart failure with preserved ejection fraction ([facility]) ([facility]) 11/21/2018 LVEDP was 22 from cardiac catheterization in May of 2018 ??? Epigastric abdominal pain 07/03/2018 ??? Benign paroxysmal positional vertigo of left ear 05/13/2018 ??? Obesity with body mass index 30 or greater 05/06/2017 Class: Chronic ??? BMI 28.0-28.9,adult 04/29/2017 ??? Obstructive sleep apnea syndrome 08/01/2016 Class: Chronic ??? Osteoarthritis 07/17/2016 Class: Chronic ??? Restless legs 07/17/2016 Class: Chronic ??? Patent foramen ovale 04/13/2016 Class: Chronic Patent foramen ovale. RoPE score of 2 with low likelihood of contribution to TIAs. Therefore, PFO closure has not been recommended ??? Moderate asthma with acute exacerbation 07/12/2015 Class: Chronic Asthma ??? Late, effect, cerebrovascular disease 06/03/2015 Class: Chronic ??? Borderline diabetes mellitus 06/03/2015 Class: Chronic ??? Systemic lupus erythematosus ([facility]) ([facility]) 01/16/2014 Class: Chronic SLE ??? Gastroesophageal reflux disease 01/16/2014 Class: Chronic ESOPHAGEAL REFLUX ??? Osteopenia 01/16/2014 Class: Chronic osteopenia ??? Anxiety state 01/16/2014 Class: Chronic ANXIETY STATE NOS ??? Tremor 01/29/2013 Class: Chronic Tremor HISTORY OF PRESENT ILLNESS: It was a pleasure to see Ms. Orantes at the [facility] at [facility] in follow-up for the above-mentioned cardiovascular issues. She was last seen by our nurse practitioner Violet Galvez in December 2020 at which time she reported exertional dyspnea and underwent evaluation with an echocardiogram which showed normal LV and RV size and function with diastolic dysfunction and possible small PFO vs ASD. In the interval since her last visit, she has remained stable from a cardiovascular perspective. She reports ongoing mild exertional dyspnea that is most apparent when quickly going up a flight of stairs. This quickly resolves with rest and/or inhaler. She can walk distances of several blocks on level ground without dyspnea, as well as caring for small children and chasing them around without limting symptoms. She denies exertional chest pain, she has occasional episodes of racing heartbeat that occur typically with exertion or with emotional stress. These episodes occur infrequently about 2-3 times per month, resolve within 5 minutes and she denies increase in frequency or severity. She had a recent Holter monitor which did not show evidence of recurrent atrial fibrillation or other arrhythmias. REVIEW OF SYSTEMS Review of systems per HPI and otherwise all other review of systems negative. MEDICATIONS Current Outpatient Medications: ??? albuterol HFA (PROVENTIL HFA,VENTOLIN HFA,PROAIR HFA) 90 mcg/actuation inhaler, Inhale 90 puffs, Disp: , Rfl: ??? alosetron (LOTRONEX) 1 mg tablet, Take 1 mg by mouth as needed , Disp: , Rfl: ??? atorvastatin (LIPITOR) 80 mg tablet, TAKE 1 TABLET BY MOUTH EVERY DAY, Disp: 90 tablet, Rfl: 3 ??? calcium carbonate (OS-LEELA) 1,500 mg (600 mg of elemental calcium) tablet, Take 2,000 mg of elemental calcium by mouth every morning , Disp: , Rfl: ??? cholecalciferol (VITAMIN D3) 2,000 unit tablet, take 1 by Oral route every day (Patient taking differently: Take by mouth every morning ), Disp: 0, Rfl: 0 ??? dexlansoprazole (DEXILANT) 60 mg capsule, Take 60 mg by mouth 2 (two) times a day, Disp: , Rfl: ??? Eliquis 5 mg tablet, TAKE 1 TABLET BY MOUTH TWICE A DAY, Disp: 180 tablet, Rfl: 3 ??? fluticasone propionate (FLOVENT HFA) 110 mcg/actuation inhaler, Inhale 2 puffs 2 (two) times a day Rinse mouth with water after use. Do not swallow. (Patient taking differently: Inhale 2 puffs asneeded Rinse mouth with water after use. Do not swallow.), Disp: 2 Inhaler, Rfl: 2 ??? furosemide (LASIX) 20 mg tablet, TAKE 1 TABLET BY MOUTH EVERY DAY, Disp: 90 tablet, Rfl: 3 ??? hydroCHLOROthiazide (HYDRODIURIL) 25 mg tablet, TAKE 1 TABLET BY MOUTH EVERY DAY (Patient taking differently: Take 25 mg by mouth every morning ), Disp: 90 tablet, Rfl: 3 ??? hydroxychloroquine (PLAQUENIL) 200 mg tablet, Take 1 tablet (200 mg total) by mouth 2 (two) times a day. (Patient taking differently: Take 200 mg by mouth 2 (two) times a day ), Disp: 180 tablet,Rfl: 0 ??? methotrexate 2.5 mg tablet, TAKE 6 TABLETS BY MOUTH ONCE A WEEK, Disp: , Rfl: ??? methscopolamine (PAMINE FORTE) 5 mg tablet, Take 5 mg by mouth daily, Disp: , Rfl: ??? montelukast (SINGULAIR) 10 mg tablet, Take 1 tablet (10 mg total) by mouth nightly, Disp: 90 tablet, Rfl: 3 ??? ondansetron ODT (ZOFRAN-ODT) 4 mg disintegrating tablet, DISSOLVE 1 TABLET IN MOUTH 10 MINUTES PRIOR TO EACH PREP DOSE NEEDED FOR NAUSEA, Disp: , Rfl: ??? pantoprazole DR (PROTONIX) 40 mg EC tablet, Take 40 mg by mouth 2 (two) times a day, Disp: , Rfl: ??? PARoxetine (PAXIL) 20 mg tablet, TAKE 1/2 TABLET BY MOUTH EVERY DAY IN THE MORNING, Disp: 15 tablet, Rfl: 1 ??? potassium chloride ER (Klor-Con M20) 20 mEq CR tablet, TAKE 2 TABLETS EVERY MORNING AND 2 TABLETS EVERY EVENING, Disp: 360 tablet, Rfl: 3 ??? abatacept/maltose (ORENCIA, WITH MALTOSE, IV), Infuse into a venous catheter every 30 (thirty) days (Patient not taking: Reported on 06/16/2021), Disp: , Rfl: ??? azelastine (ASTELIN) 137 mcg (0.1 %) nasal spray, INSTILL 1 SPRAY INTO EACH NOSTRIL DIRECTED2 TIMES PER DAY, Disp: , Rfl: ??? bisoprolol (ZEBETA) 5 mg tablet, TAKE 1 TABLET BY MOUTH EVERY DAY, Disp: 90 tablet, Rfl: 1 ??? calcium carbonate-vitamin D3 1,250mg (500mg elemental) - 5 mcg (200 units) per tablet, Take by mouth daily, Disp: , Rfl: ??? folic acid (FOLVITE) 1 mg tablet, Take 1 tablet (1 mg total) by mouth daily. Take one tab daily(Patient taking differently: Take 1 mg by mouth every morning Take one tab daily), Disp: 90 tablet,Rfl: 0 ??? nitroglycerin (NITROSTAT) 0.4 mg SL tablet, May repeat dose every 5 minutes for up to 3 doses total., Disp: 25 tablet, Rfl: 3 PHYSICAL EXAM: BP 110/75 (BP Location: Left arm, Patient Position: Sitting) Pulse 66 Ht 147.3 cm (4' 10 ) Wt69.6 kg (153 lb 6.4 oz) LMP (LMP Unknown) SpO2 95% BMI 32.06 kg/m?? General: Well appearing, No pain or distress, well nourished Respiratory: Clear to ausculation bilaterally; moving air well Cardiovascular: normal rate, regular rhythm, no M/G/R, JVD not elevated, no GRICEL Gastrointestinal: soft, non-tender abdomen Extremities: no cyanosis or clubbing Psychiatric: normal affect, normal mood Neurologic: awake/alert, no focal deficits DATA: Lab Results Component Value Date SODIUM 143 09/03/2019 POTASSIUM 3.4 (L) 09/03/2019 CHLORIDE 103 09/03/2019 CO2 26 09/03/2019 BUNSER 17 09/03/2019 CREATININE 0.85 09/03/2019 GFRNAA >60 05/13/2018 GLUCOSE 84 09/03/2019 ALBUMIN 4.2 09/03/2019 ALKPHOS 58 09/03/2019 BILITOT 0.7 09/03/2019 ALT 40 (H) 09/03/2019 AST 45 (H) 09/03/2019 TSH 1.12 09/03/2019 CHOL 140 01/18/2021 TRIG 119 01/18/2021 HDL 49 (L) 06/02/2019 LDL 53 06/02/2019 LDLCALC 64 05/13/2018 ASSESSMENT AND PLAN This is a 70 y.o. female who presents to Cardiology clinic in follow-up for the following issues: 1. Exertional dyspnea. Stable and likely related to chronic deconditioning given her age and co-morbidities. Recent TTE and event monitor did not show any significant abnormalities to suggest a cardiac etiology for this dyspnea. 2. Chronic diastolic HF. Currently euvolemic with stable NYHA class II symptoms. Recent echo showedpreserved LV function with diastolic dysfunction. Potassium normal on recent BMP 1 month ago. Continue current regimen without change. 3. Paroxysmal atrial fibrillation. Presumed given prior history of stroke with unexplained cause and palpitations. No evidence of atrial fibrillation on recent event monitor. Continue Apixaban. 4. Hyperlipidemia. Recent lipid profile on high-intensity statin showed excellent control. We will continue with it. DISPOSITION We will plan to see Ms. Orantes back in clinic in 1 year time or sooner if needed. Kentrell Rea MD Fellow 11:41 AM Cosigned by Judah Duggan MD at 06/16/2021 1:45 PM CDT Associated attestation - Judah Duggan MD - 06/16/2021 1:45 PM CDT I have seen and examined the patient. I agree with the findings and plan of care as documented in the resident/fellow's note. documented in this encounter Plan of Treatment Not on file documented as of this encounter Visit Diagnoses Diagnosis Paroxysmal atrial fibrillation (CMS/HCC) (HCC)- Primary Atrial fibrillation Chronic heart failure with preserved ejection fraction (CMS/HCC) (HCC) Coronary artery disease involving [place] heart without angina pectoris, unspecified vessel or lesion type Other hyperlipidemia documented in this encounter Historical Medications * This list may reflect changes made after this encounter. methotrexate 2.5 mg tablet TAKE 6 TABLETS BY MOUTH ONCE A WEEK 03/29/2021 dexlansoprazole (DEXILANT) 60 mg capsule Take 60 mg by mouth 2 (two) times a day 09/25/2023 methscopolamine (PAMINE FORTE) 5 mg tablet Take 5 mg by mouth daily 05/19/2021 09/25/2023 added in this encounter Care Teams Chocolate Temperer Relationship Specialty Start Date End Date Santiago Bueno MD [address] [facility] [address] [place] [address] PCP - General 12/02/20 10/12/21 [place] [address] [facility] [address] [place] [address] Rheumatology 07/15/17 documented as of this encounter
--- OUTSIDE RECORDS SUMMARY | 2024-08-29 10:18 | XMS_ITS | Encounter Summary ---
Author Organization [facility] Address [address] [place] [address] Care Team Providers Care Promotions Producer Name Role Phone Gladis Song MD Unavailable Santiago Bueno MD Primary Care Provider [phone] Reason for Referral * Diagnostic Imaging (Routine) - Closed Specialty Diagnoses / Procedures Referred By Contac t Referred To Contact Diagnoses Dorsalgia, unspecified Procedures XR Sacroiliac Joints 3 [place] [id number] [address] Phone: tel: fax: [place] [phone] [place] [phone] Referral ID Status Reason Start Date Expiration Date Visits Re quested Visits Authorized [id number] Closed 10/18/2021 11/17/2022 1 1 ITER * Diagnostic Imaging (Routine) - Closed Specialty Diagnoses / Procedures Referred By Contvannessa t Referred To Contact Diagnoses Dorsalgia, unspecified Procedures XR Spine Lumbar 2 [place] 3 [place] [address] [facility] [address] [place] [address] Phone: tel: fax: [place] [phone] [place] [phone] Referral ID Status Reason Start Date Expiration Date Visits Re quested Visits Authorized [id number] Closed 10/18/2021 11/17/2022 1 1 ITER * Diagnostic Imaging (Routine) - Closed Specialty Diagnoses / Procedures Referred By Contac t Referred To Contact Diagnoses Dorsalgia, unspecified Procedures XR Foot Right 2 [place] [address] [facility] [address] [place] [address] Phone: tel: fax: [facility] [phone] [place] [phone] Referral ID Status Reason Start Date Expiration Date Visits Re quested Visits Authorized [id number] Closed 10/18/2021 11/17/2022 1 1 ITER * Diagnostic Imaging (Routine) - Closed Specialty Diagnoses / Procedures Referred By Contac t Referred To Contact Diagnoses Dorsalgia, unspecified Procedures XR Foot Left 2 [place] [address] [place] [id number] Phone: tel: fax: [place] [phone] [place] [phone] Referral ID Status Reason Start Date Expiration Date Visits Re quested Visits Authorized [id number] Closed 10/18/2021 11/17/2022 1 1 ITER * Diagnostic Imaging (Routine) - Closed Specialty Diagnoses / Procedures Referred By Contac t Referred To Contact Diagnoses Dorsalgia, unspecified Procedures XR Spine Thoracic 2 [place] [id number] [address] Phone: tel: fax: [place] [phone] [place] [phone] Referral ID Status Reason Start Date Expiration Date Visits Re quested Visits Authorized [id number] Closed 10/18/2021 11/17/2022 1 1 ITER Reason for Visit * Diagnostic Imaging (Routine) - Closed Specialty Diagnoses / Procedures Referred By Valerie florian Referred To Contact Diagnoses Dorsalgia, unspecified Procedures XR Spine Thoracic 2 [place] [address] [facility] [address] [place] [address] Phone: tel: fax: [facility] [id number] [phone] Referral ID Status Reason Start Date Expiration Date Visits Re quested Visits Authorized [id number] Closed 10/18/2021 11/17/2022 1 1 Encounter Details Date Type Department Care Team (Late st Contact Info) Description 10/18/2021 12:20 PM REWRITER - 10/18/2021 11:59 PM REWRITER Hospital Encounter [facility] [id number] [phone] [place] [address] [facility] [address] [place] [address] Dorsalgia, unspecified Discharge Disposition: Discharge to home or self [...] on file Legal Sex Female 12:11 AM REWRITER Gender Identity Not on file Sexual Orientation Not on file Occupation Industry Job Start Date Job End Date Retired Not on file Not on file Not on file documented as of this encounter Medications at Time of Discharge albuterol HFA (PROVENTIL HFA,VENTOLIN HFA,PROAIR HFA) 90 mcg/actuation inhaler Inhale 90 puffs 03/31/2019 calcium carbonate (OS-LEELA) 1,500 mg (600 mg of elemental calcium) tabletIndications:Po st-Menopausal Osteoporosis Prevention Take 2,000 mg of elemental calcium by mouth every morning calcium carbonate-vitamin D3 1,250mg (500mg elemental) - 5 mcg (200 units) per tablet Take by mouth daily cholecalciferol (VITAMIN D3) 2,000 unit tablet take 1 by Oral route every day 0 0 11/30/2014 fluticasone propionate (FLOVENT HFA) 110 mcg/actuation inhaler Inhale 2 puffs 2 (two) times a day Rinse mouth with water after use. Do not swallow. 2 Inhaler 2 03/31/2019 folic acid (FOLVITE) 1 mg tablet Take 1 tablet (1 mg total) by mouth daily. Take one tab daily 90 tablet 05/14/2018 hydroCHLOROthiazide (HYDRODIURIL) 25 mg tablet TAKE 1 [...] IN THE MORNING 15 tablet 1 07/28/2021 abatacept/maltose (ORENCIA, WITH MALTOSE, IV) Infuse into a venous catheter every 30 (thirty) days 4 alosetron (LOTRONEX) 1 mg tablet Take 1 mg by mouth as needed 01/10/2021 4 atorvastatin (LIPITOR) 80 mg tablet TAKE 1 TABLET BY MOUTH EVERY DAY 90 tablet 3 08/17/2021 2 azelastine (ASTELIN) 137 mcg (0.1 %) nasal spray INSTILL 1 SPRAY INTO EACH NOSTRIL DIRECTED 2 TIMES PER DAY 01/10/2021 4 bisoprolol (ZEBETA) 5 mg tablet TAKE 1 TABLET BY MOUTH EVERY DAY 90 tablet 3 06/20/2021 2 dexlansoprazole (DEXILANT) 60 mg capsule Take 60 mg by mouth 2 (two) times a day 4 Eliquis 5 mg tablet TAKE 1 TABLET BY MOUTH TWICE A DAY 180 tablet 3 07/10/2021 2 furosemide (LASIX) 20 mg tablet TAKE 1 TABLET BY MOUTH EVERY DAY 90 tablet 3 07/24/2021 2 hydroxychloroquine (PLAQUENIL) 200 mg tablet Take 1 tablet (200 mg total) by mouth 2 (two) times a day. 180 tablet 05/14/2018 4 methscopolamine (PAMINE FORTE) 5 mg tablet Take 5 mg by mouth daily 05/19/2021 4 nitroglycerin (NITROSTAT) 0.4 mg SL tablet May repeat dose every 5 minutes for up to 3 doses total. 25 tablet 3 05/23/2018 4 ondansetron ODT (ZOFRAN-ODT) 4 mg disintegrating tablet 11/02/2019 4 potassium chloride ER (Klor-Con M20) 20 mEq CR tablet TAKE 2 TABLETS EVERY MORNING AND 2 TABLETS EVERY EVENING 360 tablet 3 04/03/2021 2 documented as of this encounter Discharge Disposition Disposition Code Departure Means Destination Discharge to home or self care documented in this encounter Plan of Treatment Not on file documented as of this encounter Procedures Procedure Name Priority Date/Time Associated Diagnosis Comments XR WRIST BILATERAL 3 OR MORE VIEWS Schedule Routine, Read Routine (OP Routine) 10/18/2021 1:09 PM REWRITER Dorsalgia, unspecified XR ANKLE BILATERAL 3 OR MORE VIEWS Schedule Routine, Read Routine (OP Routine) 10/18/2021 1:09 PM REWRITER Dorsalgia, unspecified XR HAND BILATERAL 3 OR MORE VIEWS OF EACH Schedule Routine, Read Routine (OP Routine) 10/18/2021 1:09 PM REWRITER Dorsalgia, unspecified XR FOOT RIGHT 2 VIEWS Schedule Routine, Read Routine (OP Routine) 10/18/2021 1:09 PM REWRITER Dorsalgia, unspecified XR FOOT LEFT 2 VIEWS Schedule Routine, Read Routine (OP Routine) 10/18/2021 1:09 PM REWRITER Dorsalgia, unspecified XR SACROILIAC JOINTS 3 OR MORE VIEWS Schedule Routine, Read Routine (OP Routine) 10/18/2021 1:09 PM REWRITER Dorsalgia, unspecified XR SPINE LUMBAR 2 OR 3 VIEWS Schedule Routine, Read Routine (OP Routine) 10/18/2021 1:09 PM REWRITER Dorsalgia, unspecified XR SPINE THORACIC 2 VIEWS Schedule Routine, Read Routine (OP Routine) 10/18/2021 1:09 PM REWRITER Dorsalgia, unspecified documented in this encounter Results * XR Sacroiliac Joints 3 or More Views (10/18/2021 1:09 PM REWRITER) Anatomical Region Laterality Modality Pelvis, Body N/A Computed Radiogr aphy 10/18/2021 2:35 PM REWRITER Impressions 10/18/2021 2:35 PM REWRITER 1. Small nonspecific erosion of the left third metacarpal head and lunate otherwise no radiographic evidence for inflammatory arthropathy of the lower spine, sacroiliac joints, hands/wrists, feet/ankles. 2. Multilevel degenerative disc disease of the thoracolumbar spine greatest and moderate from L2 to L4 and L5-S1. 3. Mild osteoarthritis of the bilateral hands. Electronically signed by: Lance Yung M.D. Narrative 10/18/2021 2:35 PM REWRITER EXAM: 1. ??XR SPINE THORACIC 2 VIEWS 2. ??XR ANKLE BILATERAL 3 OR MORE VIEWS 3. ??XR WRIST BILATERAL 3 OR MORE VIEWS 4. ??XR HAND BILATERAL 3 OR MORE VIEWS OF EAC 5. ?? XR FOOT LEFT 2 VIEWS 6. ??XR FOOT RIGHT 2 VIEWS 7. ??XR SPINE LUMBAR 2 OR 3 VIEWS 8. ??XR SACROILIAC JOINTS 3 OR MORE VIEWS HISTORY: Polyarthralgias COMPARISON: Radiographs 04/22/2012, 10/22/[address] 05/07/2018 FINDINGS: 2 radiographs of the thoracic spine, 2 radiographs of lumbar spine, 3 radiographs of the sacroiliac joints, 3 radiographs of the right wrist, 3 radiographs of left wrist, 2 radiographs of the left foot and 2 radiographs of the right foot is submitted for interpretation. Thoracic spine: Alignment is normal. Mild multilevel degenerative disc disease. No acute compression fracture. Lumbar spine: Mild levoscoliosis of the lumbar spine. Multilevel degenerative disc disease greatest and moderate from L2 to L4 and L5-S1. No acute compression fracture identified. Sacroiliac joints: No acute fracture. Alignment is normal. Sacroiliac joint spaces are normal. No ankylosis or erosions identified. Right foot: No acute fracture. Joint spaces are normal. No erosions identified. Nonspecific linear sclerosis within the distal fifth metatarsal. Right ankle: No acute fracture. Joint spaces are normal. Ankle mortise is normal. No erosions identified. Small calcaneal plantar spur. Left foot: No acute fracture. Joint spaces are normal. No erosions identified. Left ankle: No acute fracture. Ankle mortise is normal. Joint spaces are normal. No erosions identified. Small distal Achilles tendon enthesophyte and calcaneal plantar spur. Right hand/wrist: No acute fracture. Alignment is normal. Mild scattered interphalangeal joint, thumb metacarpophalangeal and carpometacarpal joint osteoarthritis. No erosions identified. Left hand/wrist: No acute fracture. Alignment is normal. Mild scattered interphalangeal joint, thumb metacarpophalangeal and carpometacarpal joint osteoarthritis. Small erosion within the third metacarpal head and lunate. Nonspecific linear sclerosis within the index finger distal phalanx. Procedure Note Lance Yung MD - 10/18/2021 EXAM: 1. XR SPINE THORACIC 2 VIEWS 2. XR ANKLE BILATERAL 3 OR MORE VIEWS 3. XR WRIST BILATERAL 3 OR MORE VIEWS 4. XR HAND BILATERAL 3 OR MORE VIEWS OF EAC 5. XR FOOT LEFT 2 VIEWS 6. XR FOOT RIGHT 2 VIEWS 7. XR SPINE LUMBAR 2 OR 3 VIEWS 8. XR SACROILIAC JOINTS 3 OR MORE VIEWS HISTORY: Polyarthralgias COMPARISON: Radiographs 04/22/2012, 10/22/[address] 05/07/2018 FINDINGS: 2 radiographs of the thoracic spine, 2 radiographs of lumbar spine, 3 radiographs of the sacroiliac joints, 3 radiographs of the right wrist, 3 radiographs of left wrist, 2 radiographs of the left foot and 2 radiographs of the right foot is submitted for interpretation. Thoracic spine: Alignment is normal. Mild multilevel degenerative disc disease. No acute compression fracture. Lumbar spine: Mild levoscoliosis of the lumbar spine. Multilevel degenerative disc disease greatest and moderate from L2 to L4 and L5-S1. No acute compression fracture identified. Sacroiliac joints: No acute fracture. Alignment is normal. Sacroiliac joint spaces are normal. No ankylosis or erosions identified. Right foot: No acute fracture. Joint spaces are normal. No erosions identified. Nonspecific linear sclerosis within the distal fifth metatarsal. Right ankle: No acute fracture. Joint spaces are normal. Ankle mortise is normal. No erosions identified. Small calcaneal plantar spur. Left foot: No acute fracture. Joint spaces are normal. No erosions identified. Left ankle: No acute fracture. Ankle mortise is normal. Joint spaces are normal. No erosions identified. Small distal Achilles tendon enthesophyte and calcaneal plantar spur. Right hand/wrist: No acute fracture. Alignment is normal. Mild scattered interphalangeal joint, thumb metacarpophalangeal and carpometacarpal joint osteoarthritis. No erosions identified. Left hand/wrist: No acute fracture. Alignment is normal. Mild scattered interphalangeal joint, thumb metacarpophalangeal and carpometacarpal joint osteoarthritis. Small erosion within the third metacarpal head and lunate. Nonspecific linear sclerosis within the index finger distal phalanx. IMPRESSION: 1. Small nonspecific erosion of the left third metacarpal head and lunate otherwise no radiographic evidence for inflammatory arthropathy of the lower spine, sacroiliac joints, hands/wrists, feet/ankles. 2. Multilevel degenerative disc disease of the thoracolumbar spine greatest and moderate from L2 to L4 and L5-S1. 3. Mild osteoarthritis of the bilateral hands. Electronically signed by: Lance Yung M.D. Gladis Song MD IMG XR PROCEDURES Final Result * XR Spine Lumbar 2 or 3 Views (10/18/2021 1:09 PM REWRITER) Anatomical Region Laterality Modality Spine N/A Computed Radiogr aphy 10/18/2021 2:35 PM REWRITER Impressions 10/18/2021 2:35 PM REWRITER 1. Small nonspecific erosion of the left third metacarpal head and lunate otherwise no radiographic evidence for inflammatory arthropathy of the lower spine, sacroiliac joints, hands/wrists, feet/ankles. 2. Multilevel degenerative disc disease of the thoracolumbar spine greatest and moderate from L2 to L4 and L5-S1. 3. Mild osteoarthritis of the bilateral hands. Electronically signed by: Lance Ynug M.D. Narrative 10/18/2021 2:35 PM REWRITER EXAM: 1. ??XR SPINE THORACIC 2 VIEWS 2. ??XR ANKLE BILATERAL 3 OR MORE VIEWS 3. ??XR WRIST BILATERAL 3 OR MORE VIEWS 4. ??XR HAND BILATERAL 3 OR MORE VIEWS OF EAC 5. ?? XR FOOT LEFT 2 VIEWS 6. ??XR FOOT RIGHT 2 VIEWS 7. ??XR SPINE LUMBAR 2 OR 3 VIEWS 8. ??XR SACROILIAC JOINTS 3 OR MORE VIEWS HISTORY: Polyarthralgias COMPARISON: Radiographs 04/22/2012, 10/22/[address] 05/07/2018 FINDINGS: 2 radiographs of the thoracic spine, 2 radiographs of lumbar spine, 3 radiographs of the sacroiliac joints, 3 radiographs of the right wrist, 3 radiographs of left wrist, 2 radiographs of the left foot and 2 radiographs of the right foot is submitted for interpretation. Thoracic spine: Alignment is normal. Mild multilevel degenerative disc disease. No acute compression fracture. Lumbar spine: Mild levoscoliosis of the lumbar spine. Multilevel degenerative disc disease greatest and moderate from L2 to L4 and L5-S1. No acute compression fracture identified. Sacroiliac joints: No acute fracture. Alignment is normal. Sacroiliac joint spaces are normal. No ankylosis or erosions identified. Right foot: No acute fracture. Joint spaces are normal. No erosions identified. Nonspecific linear sclerosis within the distal fifth metatarsal. Right ankle: No acute fracture. Joint spaces are normal. Ankle mortise is normal. No erosions identified. Small calcaneal plantar spur. Left foot: No acute fracture. Joint spaces are normal. No erosions identified. Left ankle: No acute fracture. Ankle mortise is normal. Joint spaces are normal. No erosions identified. Small distal Achilles tendon enthesophyte and calcaneal plantar spur. Right hand/wrist: No acute fracture. Alignment is normal. Mild scattered interphalangeal joint, thumb metacarpophalangeal and carpometacarpal joint osteoarthritis. No erosions identified. Left hand/wrist: No acute fracture. Alignment is normal. Mild scattered interphalangeal joint, thumb metacarpophalangeal and carpometacarpal joint osteoarthritis. Small erosion within the third metacarpal head and lunate. Nonspecific linear sclerosis within the index finger distal phalanx. Procedure Note Lance Yung MD - 10/18/2021 EXAM: 1. XR SPINE THORACIC 2 VIEWS 2. XR ANKLE BILATERAL 3 OR MORE VIEWS 3. XR WRIST BILATERAL 3 OR MORE VIEWS 4. XR HAND BILATERAL 3 OR MORE VIEWS OF EAC 5. XR FOOT LEFT 2 VIEWS 6. XR FOOT RIGHT 2 VIEWS 7. XR SPINE LUMBAR 2 OR 3 VIEWS 8. XR SACROILIAC JOINTS 3 OR MORE VIEWS HISTORY: Polyarthralgias COMPARISON: Radiographs 04/22/2012, 10/22/[address] 05/07/2018 FINDINGS: 2 radiographs of the thoracic spine, 2 radiographs of lumbar spine, 3 radiographs of the sacroiliac joints, 3 radiographs of the right wrist, 3 radiographs of left wrist, 2 radiographs of the left foot and 2 radiographs of the right foot is submitted for interpretation. Thoracic spine: Alignment is normal. Mild multilevel degenerative disc disease. No acute compression fracture. Lumbar spine: Mild levoscoliosis of the lumbar spine. Multilevel degenerative disc disease greatest and moderate from L2 to L4 and L5-S1. No acute compression fracture identified. Sacroiliac joints: No acute fracture. Alignment is normal. Sacroiliac joint spaces are normal. No ankylosis or erosions identified. Right foot: No acute fracture. Joint spaces are normal. No erosions identified. Nonspecific linear sclerosis within the distal fifth metatarsal. Right ankle: No acute fracture. Joint spaces are normal. Ankle mortise is normal. No erosions identified. Small calcaneal plantar spur. Left foot: No acute fracture. Joint spaces are normal. No erosions identified. Left ankle: No acute fracture. Ankle mortise is normal. Joint spaces are normal. No erosions identified. Small distal Achilles tendon enthesophyte and calcaneal plantar spur. Right hand/wrist: No acute fracture. Alignment is normal. Mild scattered interphalangeal joint, thumb metacarpophalangeal and carpometacarpal joint osteoarthritis. No erosions identified. Left hand/wrist: No acute fracture. Alignment is normal. Mild scattered interphalangeal joint, thumb metacarpophalangeal and carpometacarpal joint osteoarthritis. Small erosion within the third metacarpal head and lunate. Nonspecific linear sclerosis within the index finger distal phalanx. IMPRESSION: 1. Small nonspecific erosion of the left third metacarpal head and lunate otherwise no radiographic evidence for inflammatory arthropathy of the lower spine, sacroiliac joints, hands/wrists, feet/ankles. 2. Multilevel degenerative disc disease of the thoracolumbar spine greatest and moderate from L2 to L4 and L5-S1. 3. Mild osteoarthritis of the bilateral hands. Electronically signed by: Lance Yung M.D. us Gladis Song MD IMG XR PROCEDURES Final Result * XR Foot Right 2 Views (10/18/2021 1:09 PM REWRITER) Anatomical Region Laterality Modality Lower Extremities, Foot Right Computed Radiography 10/18/2021 2:35 PM REWRITER Impressions 10/18/2021 2:35 PM REWRITER 1. Small nonspecific erosion of the left third metacarpal head and lunate otherwise no radiographic evidence for inflammatory arthropathy of the lower spine, sacroiliac joints, hands/wrists, feet/ankles. 2. Multilevel degenerative disc disease of the thoracolumbar spine greatest and moderate from L2 to L4 and L5-S1. 3. Mild osteoarthritis of the bilateral hands. Electronically signed by: Lance Yung M.D. Narrative 10/18/2021 2:35 PM REWRITER EXAM: 1. ??XR SPINE THORACIC 2 VIEWS 2. ??XR ANKLE BILATERAL 3 OR MORE VIEWS 3. ??XR WRIST BILATERAL 3 OR MORE VIEWS 4. ??XR HAND BILATERAL 3 OR MORE VIEWS OF EAC 5. ?? XR FOOT LEFT 2 VIEWS 6. ??XR FOOT RIGHT 2 VIEWS 7. ??XR SPINE LUMBAR 2 OR 3 VIEWS 8. ??XR SACROILIAC JOINTS 3 OR MORE VIEWS HISTORY: Polyarthralgias COMPARISON: Radiographs 04/22/2012, 10/22/[address] 05/07/2018 FINDINGS: 2 radiographs of the thoracic spine, 2 radiographs of lumbar spine, 3 radiographs of the sacroiliac joints, 3 radiographs of the right wrist, 3 radiographs of left wrist, 2 radiographs of the left foot and 2 radiographs of the right foot is submitted for interpretation. Thoracic spine: Alignment is normal. Mild multilevel degenerative disc disease. No acute compression fracture. Lumbar spine: Mild levoscoliosis of the lumbar spine. Multilevel degenerative disc disease greatest and moderate from L2 to L4 and L5-S1. No acute compression fracture identified. Sacroiliac joints: No acute fracture. Alignment is normal. Sacroiliac joint spaces are normal. No ankylosis or erosions identified. Right foot: No acute fracture. Joint spaces are normal. No erosions identified. Nonspecific linear sclerosis within the distal fifth metatarsal. Right ankle: No acute fracture. Joint spaces are normal. Ankle mortise is normal. No erosions identified. Small calcaneal plantar spur. Left foot: No acute fracture. Joint spaces are normal. No erosions identified. Left ankle: No acute fracture. Ankle mortise is normal. Joint spaces are normal. No erosions identified. Small distal Achilles tendon enthesophyte and calcaneal plantar spur. Right hand/wrist: No acute fracture. Alignment is normal. Mild scattered interphalangeal joint, thumb metacarpophalangeal and carpometacarpal joint osteoarthritis. No erosions identified. Left hand/wrist: No acute fracture. Alignment is normal. Mild scattered interphalangeal joint, thumb metacarpophalangeal and carpometacarpal joint osteoarthritis. Small erosion within the third metacarpal head and lunate. Nonspecific linear sclerosis within the index finger distal phalanx. Procedure Note Lance Yung MD - 10/18/2021 EXAM: 1. XR SPINE THORACIC 2 VIEWS 2. XR ANKLE BILATERAL 3 OR MORE VIEWS 3. XR WRIST BILATERAL 3 OR MORE VIEWS 4. XR HAND BILATERAL 3 OR MORE VIEWS OF EAC 5. XR FOOT LEFT 2 VIEWS 6. XR FOOT RIGHT 2 VIEWS 7. XR SPINE LUMBAR 2 OR 3 VIEWS 8. XR SACROILIAC JOINTS 3 OR MORE VIEWS HISTORY: Polyarthralgias COMPARISON: Radiographs 04/22/2012, 10/22/[address] 05/07/2018 FINDINGS: 2 radiographs of the thoracic spine, 2 radiographs of lumbar spine, 3 radiographs of the sacroiliac joints, 3 radiographs of the right wrist, 3 radiographs of left wrist, 2 radiographs of the left foot and 2 radiographs of the right foot is submitted for interpretation. Thoracic spine: Alignment is normal. Mild multilevel degenerative disc disease. No acute compression fracture. Lumbar spine: Mild levoscoliosis of the lumbar spine. Multilevel degenerative disc disease greatest and moderate from L2 to L4 and L5-S1. No acute compression fracture identified. Sacroiliac joints: No acute fracture. Alignment is normal. Sacroiliac joint spaces are normal. No ankylosis or erosions identified. Right foot: No acute fracture. Joint spaces are normal. No erosions identified. Nonspecific linear sclerosis within the distal fifth metatarsal. Right ankle: No acute fracture. Joint spaces are normal. Ankle mortise is normal. No erosions identified. Small calcaneal plantar spur. Left foot: No acute fracture. Joint spaces are normal. No erosions identified. Left ankle: No acute fracture. Ankle mortise is normal. Joint spaces are normal. No erosions identified. Small distal Achilles tendon enthesophyte and calcaneal plantar spur. Right hand/wrist: No acute fracture. Alignment is normal. Mild scattered interphalangeal joint, thumb metacarpophalangeal and carpometacarpal joint osteoarthritis. No erosions identified. Left hand/wrist: No acute fracture. Alignment is normal. Mild scattered interphalangeal joint, thumb metacarpophalangeal and carpometacarpal joint osteoarthritis. Small erosion within the third metacarpal head and lunate. Nonspecific linear sclerosis within the index finger distal phalanx. IMPRESSION: 1. Small nonspecific erosion of the left third metacarpal head and lunate otherwise no radiographic evidence for inflammatory arthropathy of the lower spine, sacroiliac joints, hands/wrists, feet/ankles. 2. Multilevel degenerative disc disease of the thoracolumbar spine greatest and moderate from L2 to L4 and L5-S1. 3. Mild osteoarthritis of the bilateral hands. Electronically signed by: Lance Yung M.D. Gladis Song MD IMG XR PROCEDURES Final Result * XR Foot Left 2 Views (10/18/2021 1:09 PM REWRITER) Anatomical Region Laterality Modality Lower Extremities, Foot Left Computed Radiography 10/18/2021 2:35 PM REWRITER Impressions 10/18/2021 2:35 PM REWRITER 1. Small nonspecific erosion of the left third metacarpal head and lunate otherwise no radiographic evidence for inflammatory arthropathy of the lower spine, sacroiliac joints, hands/wrists, feet/ankles. 2. Multilevel degenerative disc disease of the thoracolumbar spine greatest and moderate from L2 to L4 and L5-S1. 3. Mild osteoarthritis of the bilateral hands. Electronically signed by: Lance Yung M.D. Narrative 10/18/2021 2:35 PM REWRITER EXAM: 1. ??XR SPINE THORACIC 2 VIEWS 2. ??XR ANKLE BILATERAL 3 OR MORE VIEWS 3. ??XR WRIST BILATERAL 3 OR MORE VIEWS 4. ??XR HAND BILATERAL 3 OR MORE VIEWS OF EAC 5. ?? XR FOOT LEFT 2 VIEWS 6. ??XR FOOT RIGHT 2 VIEWS 7. ??XR SPINE LUMBAR 2 OR 3 VIEWS 8. ??XR SACROILIAC JOINTS 3 OR MORE VIEWS HISTORY: Polyarthralgias COMPARISON: Radiographs 04/22/2012, 10/22/[address] 05/07/2018 FINDINGS: 2 radiographs of the thoracic spine, 2 radiographs of lumbar spine, 3 radiographs of the sacroiliac joints, 3 radiographs of the right wrist, 3 radiographs of left wrist, 2 radiographs of the left foot and 2 radiographs of the right foot is submitted for interpretation. Thoracic spine: Alignment is normal. Mild multilevel degenerative disc disease. No acute compression fracture. Lumbar spine: Mild levoscoliosis of the lumbar spine. Multilevel degenerative disc disease greatest and moderate from L2 to L4 and L5-S1. No acute compression fracture identified. Sacroiliac joints: No acute fracture. Alignment is normal. Sacroiliac joint spaces are normal. No ankylosis or erosions identified. Right foot: No acute fracture. Joint spaces are normal. No erosions identified. Nonspecific linear sclerosis within the distal fifth metatarsal. Right ankle: No acute fracture. Joint spaces are normal. Ankle mortise is normal. No erosions identified. Small calcaneal plantar spur. Left foot: No acute fracture. Joint spaces are normal. No erosions identified. Left ankle: No acute fracture. Ankle mortise is normal. Joint spaces are normal. No erosions identified. Small distal Achilles tendon enthesophyte and calcaneal plantar spur. Right hand/wrist: No acute fracture. Alignment is normal. Mild scattered interphalangeal joint, thumb metacarpophalangeal and carpometacarpal joint osteoarthritis. No erosions identified. Left hand/wrist: No acute fracture. Alignment is normal. Mild scattered interphalangeal joint, thumb metacarpophalangeal and carpometacarpal joint osteoarthritis. Small erosion within the third metacarpal head and lunate. Nonspecific linear sclerosis within the index finger distal phalanx. Procedure Note Lance Yung MD - 10/18/2021 EXAM: 1. XR SPINE THORACIC 2 VIEWS 2. XR ANKLE BILATERAL 3 OR MORE VIEWS 3. XR WRIST BILATERAL 3 OR MORE VIEWS 4. XR HAND BILATERAL 3 OR MORE VIEWS OF EAC 5. XR FOOT LEFT 2 VIEWS 6. XR FOOT RIGHT 2 VIEWS 7. XR SPINE LUMBAR 2 OR 3 VIEWS 8. XR SACROILIAC JOINTS 3 OR MORE VIEWS HISTORY: Polyarthralgias COMPARISON: Radiographs 04/22/2012, 10/22/[address] 05/07/2018 FINDINGS: 2 radiographs of the thoracic spine, 2 radiographs of lumbar spine, 3 radiographs of the sacroiliac joints, 3 radiographs of the right wrist, 3 radiographs of left wrist, 2 radiographs of the left foot and 2 radiographs of the right foot is submitted for interpretation. Thoracic spine: Alignment is normal. Mild multilevel degenerative disc disease. No acute compression fracture. Lumbar spine: Mild levoscoliosis of the lumbar spine. Multilevel degenerative disc disease greatest and moderate from L2 to L4 and L5-S1. No acute compression fracture identified. Sacroiliac joints: No acute fracture. Alignment is normal. Sacroiliac joint spaces are normal. No ankylosis or erosions identified. Right foot: No acute fracture. Joint spaces are normal. No erosions identified. Nonspecific linear sclerosis within the distal fifth metatarsal. Right ankle: No acute fracture. Joint spaces are normal. Ankle mortise is normal. No erosions identified. Small calcaneal plantar spur. Left foot: No acute fracture. Joint spaces are normal. No erosions identified. Left ankle: No acute fracture. Ankle mortise is normal. Joint spaces are normal. No erosions identified. Small distal Achilles tendon enthesophyte and calcaneal plantar spur. Right hand/wrist: No acute fracture. Alignment is normal. Mild scattered interphalangeal joint, thumb metacarpophalangeal and carpometacarpal joint osteoarthritis. No erosions identified. Left hand/wrist: No acute fracture. Alignment is normal. Mild scattered interphalangeal joint, thumb metacarpophalangeal and carpometacarpal joint osteoarthritis. Small erosion within the third metacarpal head and lunate. Nonspecific linear sclerosis within the index finger distal phalanx. IMPRESSION: 1. Small nonspecific erosion of the left third metacarpal head and lunate otherwise no radiographic evidence for inflammatory arthropathy of the lower spine, sacroiliac joints, hands/wrists, feet/ankles. 2. Multilevel degenerative disc disease of the thoracolumbar spine greatest and moderate from L2 to L4 and L5-S1. 3. Mild osteoarthritis of the bilateral hands. Electronically signed by: Lance Yung M.D. us Gladis Song MD IMG XR PROCEDURES Final Result * XR Hand Bilateral 3 or More Views of Each (10/18/2021 1:09 PM REWRITER) Anatomical Region Laterality Modality Upper Extremities, Hand Computed Radiography 10/18/2021 2:35 PM REWRITER Impressions 10/18/2021 2:35 PM REWRITER 1. Small nonspecific erosion of the left third metacarpal head and lunate otherwise no radiographic evidence for inflammatory arthropathy of the lower spine, sacroiliac joints, hands/wrists, feet/ankles. 2. Multilevel degenerative disc disease of the thoracolumbar spine greatest and moderate from L2 to L4 and L5-S1. 3. Mild osteoarthritis of the bilateral hands. Electronically signed by: Lance Yung M.D. Narrative 10/18/2021 2:35 PM REWRITER EXAM: 1. ??XR SPINE THORACIC 2 VIEWS 2. ??XR ANKLE BILATERAL 3 OR MORE VIEWS 3. ??XR WRIST BILATERAL 3 OR MORE VIEWS 4. ??XR HAND BILATERAL 3 OR MORE VIEWS OF EAC 5. ?? XR FOOT LEFT 2 VIEWS 6. ??XR FOOT RIGHT 2 VIEWS 7. ??XR SPINE LUMBAR 2 OR 3 VIEWS 8. ??XR SACROILIAC JOINTS 3 OR MORE VIEWS HISTORY: Polyarthralgias COMPARISON: Radiographs 04/22/2012, 10/22/[address] 05/07/2018 FINDINGS: 2 radiographs of the thoracic spine, 2 radiographs of lumbar spine, 3 radiographs of the sacroiliac joints, 3 radiographs of the right wrist, 3 radiographs of left wrist, 2 radiographs of the left foot and 2 radiographs of the right foot is submitted for interpretation. Thoracic spine: Alignment is normal. Mild multilevel degenerative disc disease. No acute compression fracture. Lumbar spine: Mild levoscoliosis of the lumbar spine. Multilevel degenerative disc disease greatest and moderate from L2 to L4 and L5-S1. No acute compression fracture identified. Sacroiliac joints: No acute fracture. Alignment is normal. Sacroiliac joint spaces are normal. No ankylosis or erosions identified. Right foot: No acute fracture. Joint spaces are normal. No erosions identified. Nonspecific linear sclerosis within the distal fifth metatarsal. Right ankle: No acute fracture. Joint spaces are normal. Ankle mortise is normal. No erosions identified. Small calcaneal plantar spur. Left foot: No acute fracture. Joint spaces are normal. No erosions identified. Left ankle: No acute fracture. Ankle mortise is normal. Joint spaces are normal. No erosions identified. Small distal Achilles tendon enthesophyte and calcaneal plantar spur. Right hand/wrist: No acute fracture. Alignment is normal. Mild scattered interphalangeal joint, thumb metacarpophalangeal and carpometacarpal joint osteoarthritis. No erosions identified. Left hand/wrist: No acute fracture. Alignment is normal. Mild scattered interphalangeal joint, thumb metacarpophalangeal and carpometacarpal joint osteoarthritis. Small erosion within the third metacarpal head and lunate. Nonspecific linear sclerosis within the index finger distal phalanx. Procedure Note Lance Yung MD - 10/18/2021 EXAM: 1. XR SPINE THORACIC 2 VIEWS 2. XR ANKLE BILATERAL 3 OR MORE VIEWS 3. XR WRIST BILATERAL 3 OR MORE VIEWS 4. XR HAND BILATERAL 3 OR MORE VIEWS OF EAC 5. XR FOOT LEFT 2 VIEWS 6. XR FOOT RIGHT 2 VIEWS 7. XR SPINE LUMBAR 2 OR 3 VIEWS 8. XR SACROILIAC JOINTS 3 OR MORE VIEWS HISTORY: Polyarthralgias COMPARISON: Radiographs 04/22/2012, 10/22/[address] 05/07/2018 FINDINGS: 2 radiographs of the thoracic spine, 2 radiographs of lumbar spine, 3 radiographs of the sacroiliac joints, 3 radiographs of the right wrist, 3 radiographs of left wrist, 2 radiographs of the left foot and 2 radiographs of the right foot is submitted for interpretation. Thoracic spine: Alignment is normal. Mild multilevel degenerative disc disease. No acute compression fracture. Lumbar spine: Mild levoscoliosis of the lumbar spine. Multilevel degenerative disc disease greatest and moderate from L2 to L4 and L5-S1. No acute compression fracture identified. Sacroiliac joints: No acute fracture. Alignment is normal. Sacroiliac joint spaces are normal. No ankylosis or erosions identified. Right foot: No acute fracture. Joint spaces are normal. No erosions identified. Nonspecific linear sclerosis within the distal fifth metatarsal. Right ankle: No acute fracture. Joint spaces are normal. Ankle mortise is normal. No erosions identified. Small calcaneal plantar spur. Left foot: No acute fracture. Joint spaces are normal. No erosions identified. Left ankle: No acute fracture. Ankle mortise is normal. Joint spaces are normal. No erosions identified. Small distal Achilles tendon enthesophyte and calcaneal plantar spur. Right hand/wrist: No acute fracture. Alignment is normal. Mild scattered interphalangeal joint, thumb metacarpophalangeal and carpometacarpal joint osteoarthritis. No erosions identified. Left hand/wrist: No acute fracture. Alignment is normal. Mild scattered interphalangeal joint, thumb metacarpophalangeal and carpometacarpal joint osteoarthritis. Small erosion within the third metacarpal head and lunate. Nonspecific linear sclerosis within the index finger distal phalanx. IMPRESSION: 1. Small nonspecific erosion of the left third metacarpal head and lunate otherwise no radiographic evidence for inflammatory arthropathy of the lower spine, sacroiliac joints, hands/wrists, feet/ankles. 2. Multilevel degenerative disc disease of the thoracolumbar spine greatest and moderate from L2 to L4 and L5-S1. 3. Mild osteoarthritis of the bilateral hands. Electronically signed by: Lance Yung M.D. Gladis Song MD IMG XR PROCEDURES Final Result * XR Wrist Bilateral 3 or More Views (10/18/2021 1:09 PM REWRITER) Anatomical Region Laterality Modality Upper Extremities, Wrist Compute d Radiography 10/18/2021 2:35 PM REWRITER Impressions 10/18/2021 2:35 PM REWRITER 1. Small nonspecific erosion of the left third metacarpal head and lunate otherwise no radiographic evidence for inflammatory arthropathy of the lower spine, sacroiliac joints, hands/wrists, feet/ankles. 2. Multilevel degenerative disc disease of the thoracolumbar spine greatest and moderate from L2 to L4 and L5-S1. 3. Mild osteoarthritis of the bilateral hands. Electronically signed by: Lance Yung M.D. Narrative 10/18/2021 2:35 PM REWRITER EXAM: 1. ??XR SPINE THORACIC 2 VIEWS 2. ??XR ANKLE BILATERAL 3 OR MORE VIEWS 3. ??XR WRIST BILATERAL 3 OR MORE VIEWS 4. ??XR HAND BILATERAL 3 OR MORE VIEWS OF EAC 5. ?? XR FOOT LEFT 2 VIEWS 6. ??XR FOOT RIGHT 2 VIEWS 7. ??XR SPINE LUMBAR 2 OR 3 VIEWS 8. ??XR SACROILIAC JOINTS 3 OR MORE VIEWS HISTORY: Polyarthralgias COMPARISON: Radiographs 04/22/2012, 10/22/[address] 05/07/2018 FINDINGS: 2 radiographs of the thoracic spine, 2 radiographs of lumbar spine, 3 radiographs of the sacroiliac joints, 3 radiographs of the right wrist, 3 radiographs of left wrist, 2 radiographs of the left foot and 2 radiographs of the right foot is submitted for interpretation. Thoracic spine: Alignment is normal. Mild multilevel degenerative disc disease. No acute compression fracture. Lumbar spine: Mild levoscoliosis of the lumbar spine. Multilevel degenerative disc disease greatest and moderate from L2 to L4 and L5-S1. No acute compression fracture identified. Sacroiliac joints: No acute fracture. Alignment is normal. Sacroiliac joint spaces are normal. No ankylosis or erosions identified. Right foot: No acute fracture. Joint spaces are normal. No erosions identified. Nonspecific linear sclerosis within the distal fifth metatarsal. Right ankle: No acute fracture. Joint spaces are normal. Ankle mortise is normal. No erosions identified. Small calcaneal plantar spur. Left foot: No acute fracture. Joint spaces are normal. No erosions identified. Left ankle: No acute fracture. Ankle mortise is normal. Joint spaces are normal. No erosions identified. Small distal Achilles tendon enthesophyte and calcaneal plantar spur. Right hand/wrist: No acute fracture. Alignment is normal. Mild scattered interphalangeal joint, thumb metacarpophalangeal and carpometacarpal joint osteoarthritis. No erosions identified. Left hand/wrist: No acute fracture. Alignment is normal. Mild scattered interphalangeal joint, thumb metacarpophalangeal and carpometacarpal joint osteoarthritis. Small erosion within the third metacarpal head and lunate. Nonspecific linear sclerosis within the index finger distal phalanx. Procedure Note Lance Yung MD - 10/18/2021 EXAM: 1. XR SPINE THORACIC 2 VIEWS 2. XR ANKLE BILATERAL 3 OR MORE VIEWS 3. XR WRIST BILATERAL 3 OR MORE VIEWS 4. XR HAND BILATERAL 3 OR MORE VIEWS OF EAC 5. XR FOOT LEFT 2 VIEWS 6. XR FOOT RIGHT 2 VIEWS 7. XR SPINE LUMBAR 2 OR 3 VIEWS 8. XR SACROILIAC JOINTS 3 OR MORE VIEWS HISTORY: Polyarthralgias COMPARISON: Radiographs 04/22/2012, 10/22/[address] 05/07/2018 FINDINGS: 2 radiographs of the thoracic spine, 2 radiographs of lumbar spine, 3 radiographs of the sacroiliac joints, 3 radiographs of the right wrist, 3 radiographs of left wrist, 2 radiographs of the left foot and 2 radiographs of the right foot is submitted for interpretation. Thoracic spine: Alignment is normal. Mild multilevel degenerative disc disease. No acute compression fracture. Lumbar spine: Mild levoscoliosis of the lumbar spine. Multilevel degenerative disc disease greatest and moderate from L2 to L4 and L5-S1. No acute compression fracture identified. Sacroiliac joints: No acute fracture. Alignment is normal. Sacroiliac joint spaces are normal. No ankylosis or erosions identified. Right foot: No acute fracture. Joint spaces are normal. No erosions identified. Nonspecific linear sclerosis within the distal fifth metatarsal. Right ankle: No acute fracture. Joint spaces are normal. Ankle mortise is normal. No erosions identified. Small calcaneal plantar spur. Left foot: No acute fracture. Joint spaces are normal. No erosions identified. Left ankle: No acute fracture. Ankle mortise is normal. Joint spaces are normal. No erosions identified. Small distal Achilles tendon enthesophyte and calcaneal plantar spur. Right hand/wrist: No acute fracture. Alignment is normal. Mild scattered interphalangeal joint, thumb metacarpophalangeal and carpometacarpal joint osteoarthritis. No erosions identified. Left hand/wrist: No acute fracture. Alignment is normal. Mild scattered interphalangeal joint, thumb metacarpophalangeal and carpometacarpal joint osteoarthritis. Small erosion within the third metacarpal head and lunate. Nonspecific linear sclerosis within the index finger distal phalanx. IMPRESSION: 1. Small nonspecific erosion of the left third metacarpal head and lunate otherwise no radiographic evidence for inflammatory arthropathy of the lower spine, sacroiliac joints, hands/wrists, feet/ankles. 2. Multilevel degenerative disc disease of the thoracolumbar spine greatest and moderate from L2 to L4 and L5-S1. 3. Mild osteoarthritis of the bilateral hands. Electronically signed by: Lance Yung M.D. us Gladis Song MD IMG XR PROCEDURES Final Result * XR Ankle Bilateral 3 or More Views (10/18/2021 1:09 PM REWRITER) Anatomical Region Laterality Modality Lower Extremities, Ankle Compute d Radiography 10/18/2021 2:35 PM REWRITER Impressions 10/18/2021 2:35 PM REWRITER 1. Small nonspecific erosion of the left third metacarpal head and lunate otherwise no radiographic evidence for inflammatory arthropathy of the lower spine, sacroiliac joints, hands/wrists, feet/ankles. 2. Multilevel degenerative disc disease of the thoracolumbar spine greatest and moderate from L2 to L4 and L5-S1. 3. Mild osteoarthritis of the bilateral hands. Electronically signed by: Lance Yung M.D. Narrative 10/18/2021 2:35 PM REWRITER EXAM: 1. ??XR SPINE THORACIC 2 VIEWS 2. ??XR ANKLE BILATERAL 3 OR MORE VIEWS 3. ??XR WRIST BILATERAL 3 OR MORE VIEWS 4. ??XR HAND BILATERAL 3 OR MORE VIEWS OF EAC 5. ?? XR FOOT LEFT 2 VIEWS 6. ??XR FOOT RIGHT 2 VIEWS 7. ??XR SPINE LUMBAR 2 OR 3 VIEWS 8. ??XR SACROILIAC JOINTS 3 OR MORE VIEWS HISTORY: Polyarthralgias COMPARISON: Radiographs 04/22/2012, 10/22/[address] 05/07/2018 FINDINGS: 2 radiographs of the thoracic spine, 2 radiographs of lumbar spine, 3 radiographs of the sacroiliac joints, 3 radiographs of the right wrist, 3 radiographs of left wrist, 2 radiographs of the left foot and 2 radiographs of the right foot is submitted for interpretation. Thoracic spine: Alignment is normal. Mild multilevel degenerative disc disease. No acute compression fracture. Lumbar spine: Mild levoscoliosis of the lumbar spine. Multilevel degenerative disc disease greatest and moderate from L2 to L4 and L5-S1. No acute compression fracture identified. Sacroiliac joints: No acute fracture. Alignment is normal. Sacroiliac joint spaces are normal. No ankylosis or erosions identified. Right foot: No acute fracture. Joint spaces are normal. No erosions identified. Nonspecific linear sclerosis within the distal fifth metatarsal. Right ankle: No acute fracture. Joint spaces are normal. Ankle mortise is normal. No erosions identified. Small calcaneal plantar spur. Left foot: No acute fracture. Joint spaces are normal. No erosions identified. Left ankle: No acute fracture. Ankle mortise is normal. Joint spaces are normal. No erosions identified. Small distal Achilles tendon enthesophyte and calcaneal plantar spur. Right hand/wrist: No acute fracture. Alignment is normal. Mild scattered interphalangeal joint, thumb metacarpophalangeal and carpometacarpal joint osteoarthritis. No erosions identified. Left hand/wrist: No acute fracture. Alignment is normal. Mild scattered interphalangeal joint, thumb metacarpophalangeal and carpometacarpal joint osteoarthritis. Small erosion within the third metacarpal head and lunate. Nonspecific linear sclerosis within the index finger distal phalanx. Procedure Note Lance Yung MD - 10/18/2021 EXAM: 1. XR SPINE THORACIC 2 VIEWS 2. XR ANKLE BILATERAL 3 OR MORE VIEWS 3. XR WRIST BILATERAL 3 OR MORE VIEWS 4. XR HAND BILATERAL 3 OR MORE VIEWS OF EAC 5. XR FOOT LEFT 2 VIEWS 6. XR FOOT RIGHT 2 VIEWS 7. XR SPINE LUMBAR 2 OR 3 VIEWS 8. XR SACROILIAC JOINTS 3 OR MORE VIEWS HISTORY: Polyarthralgias COMPARISON: Radiographs 04/22/2012, 10/22/[address] 05/07/2018 FINDINGS: 2 radiographs of the thoracic spine, 2 radiographs of lumbar spine, 3 radiographs of the sacroiliac joints, 3 radiographs of the right wrist, 3 radiographs of left wrist, 2 radiographs of the left foot and 2 radiographs of the right foot is submitted for interpretation. Thoracic spine: Alignment is normal. Mild multilevel degenerative disc disease. No acute compression fracture. Lumbar spine: Mild levoscoliosis of the lumbar spine. Multilevel degenerative disc disease greatest and moderate from L2 to L4 and L5-S1. No acute compression fracture identified. Sacroiliac joints: No acute fracture. Alignment is normal. Sacroiliac joint spaces are normal. No ankylosis or erosions identified. Right foot: No acute fracture. Joint spaces are normal. No erosions identified. Nonspecific linear sclerosis within the distal fifth metatarsal. Right ankle: No acute fracture. Joint spaces are normal. Ankle mortise is normal. No erosions identified. Small calcaneal plantar spur. Left foot: No acute fracture. Joint spaces are normal. No erosions identified. Left ankle: No acute fracture. Ankle mortise is normal. Joint spaces are normal. No erosions identified. Small distal Achilles tendon enthesophyte and calcaneal plantar spur. Right hand/wrist: No acute fracture. Alignment is normal. Mild scattered interphalangeal joint, thumb metacarpophalangeal and carpometacarpal joint osteoarthritis. No erosions identified. Left hand/wrist: No acute fracture. Alignment is normal. Mild scattered interphalangeal joint, thumb metacarpophalangeal and carpometacarpal joint osteoarthritis. Small erosion within the third metacarpal head and lunate. Nonspecific linear sclerosis within the index finger distal phalanx. IMPRESSION: 1. Small nonspecific erosion of the left third metacarpal head and lunate otherwise no radiographic evidence for inflammatory arthropathy of the lower spine, sacroiliac joints, hands/wrists, feet/ankles. 2. Multilevel degenerative disc disease of the thoracolumbar spine greatest and moderate from L2 to L4 and L5-S1. 3. Mild osteoarthritis of the bilateral hands. Electronically signed by: Lance Yung M.D. Gladis Song MD IMG XR PROCEDURES Final Result * XR Spine Thoracic 2 Views (10/18/2021 1:09 PM REWRITER) Anatomical Region Laterality Modality Spine N/A Computed Radiogr aphy 10/18/2021 2:35 PM REWRITER Impressions 10/18/2021 2:35 PM REWRITER 1. Small nonspecific erosion of the left third metacarpal head and lunate otherwise no radiographic evidence for inflammatory arthropathy of the lower spine, sacroiliac joints, hands/wrists, feet/ankles. 2. Multilevel degenerative disc disease of the thoracolumbar spine greatest and moderate from L2 to L4 and L5-S1. 3. Mild osteoarthritis of the bilateral hands. Electronically signed by: Lance Yung M.D. Narrative 10/18/2021 2:35 PM REWRITER EXAM: 1. ??XR SPINE THORACIC 2 VIEWS 2. ??XR ANKLE BILATERAL 3 OR MORE VIEWS 3. ??XR WRIST BILATERAL 3 OR MORE VIEWS 4. ??XR HAND BILATERAL 3 OR MORE VIEWS OF EAC 5. ?? XR FOOT LEFT 2 VIEWS 6. ??XR FOOT RIGHT 2 VIEWS 7. ??XR SPINE LUMBAR 2 OR 3 VIEWS 8. ??XR SACROILIAC JOINTS 3 OR MORE VIEWS HISTORY: Polyarthralgias COMPARISON: Radiographs 04/22/2012, 10/22/[address] 05/07/2018 FINDINGS: 2 radiographs of the thoracic spine, 2 radiographs of lumbar spine, 3 radiographs of the sacroiliac joints, 3 radiographs of the right wrist, 3 radiographs of left wrist, 2 radiographs of the left foot and 2 radiographs of the right foot is submitted for interpretation. Thoracic spine: Alignment is normal. Mild multilevel degenerative disc disease. No acute compression fracture. Lumbar spine: Mild levoscoliosis of the lumbar spine. Multilevel degenerative disc disease greatest and moderate from L2 to L4 and L5-S1. No acute compression fracture identified. Sacroiliac joints: No acute fracture. Alignment is normal. Sacroiliac joint spaces are normal. No ankylosis or erosions identified. Right foot: No acute fracture. Joint spaces are normal. No erosions identified. Nonspecific linear sclerosis within the distal fifth metatarsal. Right ankle: No acute fracture. Joint spaces are normal. Ankle mortise is normal. No erosions identified. Small calcaneal plantar spur. Left foot: No acute fracture. Joint spaces are normal. No erosions identified. Left ankle: No acute fracture. Ankle mortise is normal. Joint spaces are normal. No erosions identified. Small distal Achilles tendon enthesophyte and calcaneal plantar spur. Right hand/wrist: No acute fracture. Alignment is normal. Mild scattered interphalangeal joint, thumb metacarpophalangeal and carpometacarpal joint osteoarthritis. No erosions identified. Left hand/wrist: No acute fracture. Alignment is normal. Mild scattered interphalangeal joint, thumb metacarpophalangeal and carpometacarpal joint osteoarthritis. Small erosion within the third metacarpal head and lunate. Nonspecific linear sclerosis within the index finger distal phalanx. Procedure Note Lance Yung MD - 10/18/2021 EXAM: 1. XR SPINE THORACIC 2 VIEWS 2. XR ANKLE BILATERAL 3 OR MORE VIEWS 3. XR WRIST BILATERAL 3 OR MORE VIEWS 4. XR HAND BILATERAL 3 OR MORE VIEWS OF EAC 5. XR FOOT LEFT 2 VIEWS 6. XR FOOT RIGHT 2 VIEWS 7. XR SPINE LUMBAR 2 OR 3 VIEWS 8. XR SACROILIAC JOINTS 3 OR MORE VIEWS HISTORY: Polyarthralgias COMPARISON: Radiographs 04/22/2012, 10/22/[address] 05/07/2018 FINDINGS: 2 radiographs of the thoracic spine, 2 radiographs of lumbar spine, 3 radiographs of the sacroiliac joints, 3 radiographs of the right wrist, 3 radiographs of left wrist, 2 radiographs of the left foot and 2 radiographs of the right foot is submitted for interpretation. Thoracic spine: Alignment is normal. Mild multilevel degenerative disc disease. No acute compression fracture. Lumbar spine: Mild levoscoliosis of the lumbar spine. Multilevel degenerative disc disease greatest and moderate from L2 to L4 and L5-S1. No acute compression fracture identified. Sacroiliac joints: No acute fracture. Alignment is normal. Sacroiliac joint spaces are normal. No ankylosis or erosions identified. Right foot: No acute fracture. Joint spaces are normal. No erosions identified. Nonspecific linear sclerosis within the distal fifth metatarsal. Right ankle: No acute fracture. Joint spaces are normal. Ankle mortise is normal. No erosions identified. Small calcaneal plantar spur. Left foot: No acute fracture. Joint spaces are normal. No erosions identified. Left ankle: No acute fracture. Ankle mortise is normal. Joint spaces are normal. No erosions identified. Small distal Achilles tendon enthesophyte and calcaneal plantar spur. Right hand/wrist: No acute fracture. Alignment is normal. Mild scattered interphalangeal joint, thumb metacarpophalangeal and carpometacarpal joint osteoarthritis. No erosions identified. Left hand/wrist: No acute fracture. Alignment is normal. Mild scattered interphalangeal joint, thumb metacarpophalangeal and carpometacarpal joint osteoarthritis. Small erosion within the third metacarpal head and lunate. Nonspecific linear sclerosis within the index finger distal phalanx. IMPRESSION: 1. Small nonspecific erosion of the left third metacarpal head and lunate otherwise no radiographic evidence for inflammatory arthropathy of the lower spine, sacroiliac joints, hands/wrists, feet/ankles. 2. Multilevel degenerative disc disease of the thoracolumbar spine greatest and moderate from L2 to L4 and L5-S1. 3. Mild osteoarthritis of the bilateral hands. Electronically signed by: Lance Yung M.D. Gladis Song MD IMG XR PROCEDURES Final Result documented in this encounter Visit Diagnoses Diagnosis Dorsalgia, unspecified documented in this encounter Care Teams Promotions Producer Relationship Specialty Start Date End Date Santiago Bueno MD [address] [facility] [address] [place] [address] PCP - General 10/18/21 02/18/22 [place] [address] [facility] [address] [place] [address] Rheumatology 07/15/17 documented as of this encounter
--- OUTSIDE RECORDS SUMMARY | 2024-08-29 10:18 | XMS_ITS | Encounter Summary ---
Author Organization [facility] Address [address] [place] [address] Phone Care Team Providers Care Sales And Marketing Professional Name Role Phone Gladis Song MD Unavailable Santiago Bueno MD Primary Care Provider [phone] Encounter Details Date Type Department Care Team (Late st Contact Info) Description 01/19/2021 Telephone [facility] Cardiology [address] [facility] Advanced Medicine 8th [place] [address] [place] [address] Judah Duggan MD [address] [place] [address] Social History Tobacco Use Types [...] on file 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 Pt verbalizes understanding. Order placed in Epic * Telephone Encounter - Dannielle Blackwood RN - 01/19/2021 11:21 AM CDT ----- Message from Mary Beth Coulter NP sent at 01/19/2021 9:36 AM CDT ----- Please order event monitor for 30 days. Can you please let pt know? Thanks ----- Message ----- From: Judah Duggan MD Sent: 01/18/2021 1:38 PM CDT To: Mary Beth Coulter NP, # Hi Mary Beth, Sounds good. Thanks! ----- Message ----- From: Mary Beth Coulter NP Sent: 01/18/2021 1:01 PM CDT To: Judah Duggan MD, # I saw her in clinic today. Saw her Echo results. NT-proBNP was normal recently. No explanation on exam for dyspnea. Recommend event monitor for 30 days given occ palps and reported history of a fib. She noted only couple episodes of CP. [facility] in 2018 only minimal CAD. Await event monitor results. If she has ongoing or worsening CP, would consider stress test at that time. Dr Duggan, do you agree? documented in this encounter Plan of Treatment Not on file documented as of this encounter Visit Diagnoses Not on filedocumented in this encounter Care Teams Sales And Marketing Professional Relationship Specialty Start Date End Date Santiago Bueno MD [address] [facility] [address] [place] [address] PCP - General 12/02/20 10/12/21 [place] [address] [facility] [address] [place] [address] Rheumatology 07/15/17 documented as of this encounter
--- OUTSIDE RECORDS SUMMARY | 2024-08-29 10:18 | XMS_ITS | Encounter Summary ---
Author Organization [facility] Address [address] [facility] [address] [place] [address] Phone Care Team Providers Care Lap Winder Name Role Phone Gladis Song MD Unavailable Santiago Bueno MD Primary Care Provider [phone] Reason for Referral * Consultation (Routine) - Closed Specialty Diagnoses / Procedures Referred By Contac t Referred To Contact Neurology Diagnoses Neuropathy ([facility]/HCC) Jluis Gautam MD PhD [address] [place] [address] Phone: tel: fax: Satnam Frazier MD PhD [address] [place] [address] Phone: tel: fax: Referral ID Status Reason Start Date Expiration Date V isits Requested Visits Authorized [id number] Closed Specialty Services Required 02/15/2022 03/17/2023 1 1 Question Answer Please select the performing region: [facility] (All Locations) [[id number]] To provider: SATNAM FRAZIER [[id number]] # of visits: 1 Comments Neuromuscle for neuropathy. 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 Gender Identity Not on file Sexual Orientation Not on file Occupation Industry Job Start Date Job End Date Retired Not on file Not on file Not on file documented as of this encounter Plan of Treatment Scheduled Referrals Name Type Priority Associated Diagnoses Order Schedule Ambulatory referral to Neurology Outpatient Referral Routine Neuropathy (CMS/HCC) Expected: 03/01/2022 (Approximate), Expires: 02/15/2023 documented as of this encounter Visit Diagnoses Diagnosis Neuropathy (CMS/HCC)- Primary Mononeuritis of unspecified site documented in this encounter Care Teams Lap Winder Relationship Specialty Start Date End Date Santiago Bueno MD [address] [place] [address] PCP - General 10/18/21 02/18/22 [place] [address] [place] [address] Rheumatology 07/15/17 documented as of this encounter
--- OUTSIDE RECORDS SUMMARY | 2024-08-29 10:18 | XMS_ITS | Encounter Summary ---
Author Organization [facility] Address [address] [place] [address] Phone Care Team Providers Care Electrical Engineer Name Role Phone Gladis Song MD Unavailable Santiago Bueno MD Primary Care Provider [phone] Reason for Referral * Consultation (Routine) - Closed Specialty Diagnoses / Procedures Referred By Contac t Referred To Contact Neurology Diagnoses Forgetfulness History of arterial ischemic stroke Jluis Gautam MD PhD [address] [place] [address] Phone: tel: fax: [facility] [address] [facility] 6th [place] [address] [place] [address] Phone: tel:[phone] fax:[phone] Referral ID Status Reason Start Date Expiration Date V isits Requested Visits Authorized [id number] Closed Specialty Services Required 02/15/2022 03/17/2023 1 1 Question Answer Please select the performing region: [facility] (All Locations) [167] # of visits: 1 Comments [facility] (assess dementia) Encounter Details Date Type Department Care Team (Late st Contact Info) Description 02/15/2022 Orders Only [facility] Stroke [address] [facility] [address] [place] [address] Jluis Gautam MD PhD [address] [place] [address] History of arterial ischemic stroke (Primary Dx); Forgetfulness Social History Tobacco Use Types Packs/Day Years [...] on file 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 Gender Identity Not on file Sexual Orientation Not on file Occupation Industry Job Start Date Job End Date Retired Not on file Not on file Not on file documented as of this encounter Plan of Treatment Scheduled Referrals Name Type Priority Associated Diagnoses Order Schedule Ambulatory referral to Neurology Outpatient Referral Routine Forgetfulness History of arterial ischemic stroke Expected: 03/01/2022 (Approximate), Expires: 02/15/2023 documented as of this encounter Visit Diagnoses Diagnosis History of arterial ischemic stroke- Primary Transient ischemic attack (TIA), and cerebral infarction without residual deficits Forgetfulness Other general symptoms documented in this encounter Care Teams Electrical Engineer Relationship Specialty Start Date End Date Santiago Bueno MD [address] [place] [address] PCP - General 10/18/21 02/18/22 [place] [address] [place] [address] Rheumatology 07/15/17 documented as of this encounter
--- OUTSIDE RECORDS SUMMARY | 2024-08-29 10:18 | XMS_ITS | Encounter Summary ---
Author Organization [facility] Address [address] [place] [address] Phone Care Team Providers Care Floor Layer Tile Name Role Phone Gladis Song MD Unavailable Santiago Bueno MD Primary Care Provider [phone] Encounter Details Date Type Department Care Team (Late st Contact Info) Description 06/01/2021 Telephone [facility] Cardiology [address] [facility] Advanced Medicine 8th [place] [address] [place] [address] Judah Duggan MD [address] [place] [address] Social History Tobacco Use Types [...] on file 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 Duggan recs; verbalizes understanding * Telephone Encounter - Judah Duggan MD - 06/01/2021 2:48 PM CDT 48 hours * Telephone Encounter - Dannielle Blackwood RN - 06/01/2021 1:41 PM CDT Please advise how long pt can be off blood thinner for colonoscopy * Telephone Encounter - Nj Gallardo - 06/01/2021 1:39 PM CDT Urban Calling to discuss coming off blood thinners for colonoscopy. documented in this encounter Plan of Treatment Not on file documented as of this encounter Visit Diagnoses Not on filedocumented in this encounter Care Teams Floor Layer Tile Relationship Specialty Start Date End Date Santiago Bueno MD [address] [facility] [address] [place] [address] PCP - General 12/02/20 10/12/21 [place] [address] [facility] [address] [place] [address] Rheumatology 07/15/17 documented as of this encounter
--- OUTSIDE RECORDS SUMMARY | 2024-08-29 10:18 | XMS_ITS | Encounter Summary ---
Author Organization [facility] Address [address] [place] [address] Phone Care Team Providers Care Hse Advisor Name Role Phone Gladis Song MD Unavailable Santiago Bueno MD Primary Care Provider [phone] Reason for Visit * Cardiology (Routine) - Closed Specialty Diagnoses / Procedures Referred By Contac t Referred To Contact Diagnoses Paroxysmal atrial fibrillation (CMS/HCC) (HCC) Procedures [facility] Mobile Cardiac Telemetry Event Monitor Judah Duggan MD Phone: tel: fax: [address] [address] Referral ID Status Reason Start Date Expiration Date Visits Re quested Visits Authorized [id number] Closed 01/19/2021 02/18/2022 1 1 Encounter Details Date Type Department Care Team (Latest Contact Info) Description 01/19/2021 12:00 PM CDT Ancillary Procedure [facility] Cardiology [address] [facility] 8th [place] [address] [place] [address] Paroxysmal atrial fibrillation (CMS/HCC) Social History Tobacco Use Types Packs/Day [...] on file 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 Gender Identity Not on file Sexual Orientation Not on file Occupation Industry Job Start Date Job End Date Retired Not on file Not on file Not on file documented as of this encounter Plan of Treatment Not on file documented as of this encounter Procedures Procedure Name Priority Date/Time Associated Diagnosis Comments [facility] - MOBILE CARDIAC TELEMETRY EVENT MONITOR Routine 01/19/2021 3:24 PM CDT Paroxysmal atrial fibrillation (CMS/HCC) documented in this encounter Results * [facility] Mobile Cardiac Telemetry Event Monitor (01/19/2021 3:24 PM CDT) Anatomical Region Laterality Modality Electrocardiogra phy 01/19/2021 12:0 0 PM CDT Narrative 02/21/2021 9:39 PM CDT Patient name: Chio Orantes Date of test: 01/19/2021 Type of Test: Event Monitor ([facility]) Hospital #: [id number] ?Location: [facility] Heart and Vascular : 1950 ??Age: 70 ??Sex: F Ref Physician(s): JUDAH DUGGAN MD Interpreted by: Doc Cruz MD [employer] Tech: AMBROCIO Estrella Diagnosis: Monitoring Service: [employer] Reason for Test: I48.91: Unspecified atrial fibrillation Monitor Used: [facility] ([facility]) ?? Enrollment Period: January 26 - Feb 20, 2021 [employer] comments: Number of Transmissions Sent During Enrollment Period: 7 To obtain transmission tracing contact: Rhythm Summary: Bradycardia avg rate: 58 Bradycardia longest duration: [...] The full scanned/data report is available in [employer]. labeled MONITOR STRIPS PDF . This study was interpreted by Doc Cruz MD Confirmed on ??02/21/2021 - 21:39:43 by Doc Cruz MD Summary of Transmitted Events: # ??Date ? Time ?HR ?Symptoms/Rhythm ? 7 ??02/12/21 15:21 ?? 71.0 ?Auto Trigger ? Sinus Rhythm w/Artifact/Lead Loss ? 6 ??02/07/21 11:31 ?? 76.0 ?None or Accidental Push ? Sinus Rhythm w/Artifact ? 5 ??02/04/21 09:27 ?? 74.0 ?None or Accidental Push ? Sinus Rhythm w/Lead Loss ? 4 ??01/31/21 21:24 ?? 80.0 ?None or Accidental Push ? Sinus Rhythm w/Artifact ? 3 ??01/29/21 15:10 ?? 82.0 ?Auto Trigger ? Sinus Rhythm w/Artifact/Lead Loss ? 2 ??01/26/21 22:22 ?? 75.0 ?None or Accidental Push ? Sinus Rhythm w/1st Degree AV Block/Artifact ? 1 ??01/26/21 17:02 ?? 70 ?Baseline ? Sinus Rhythm w/Artifact ? I have personally reviewed and interpreted this study. Procedure Note Doc Cruz MD PhD - 02/21/2021 Patient name: Chio Orantes Date of test: 01/19/2021 Type of Test: Event Monitor ([facility]) [facility] #: [id number] Location: [facility] Heart and Vascular : 1950 Age: 70 Sex: F Ref Physician(s): JUDAH DUGGAN MD Interpreted by: Doc Cruz MD [employer] Tech: AMBROCIO Estrella Diagnosis: Monitoring Service: [employer] Reason for Test: I48.91: Unspecified atrial fibrillation Monitor Used: [facility] ([facility]) Enrollment Period: January 26 - Feb 20, 2021 [employer] comments: Number of Transmissions Sent During Enrollment Period: 7 To obtain transmission tracing contact: Rhythm Summary: Bradycardia avg rate: 58 Bradycardia longest duration: [...] The full scanned/data report is available in [employer]. labeled MONITOR STRIPS PDF . This study was interpreted by Doc Cruz MD Confirmed on 02/21/2021 - 21:39:43 by Doc Cruz MD Summary of Transmitted Events: # Date Time HR Symptoms/Rhythm 7 02/12/21 15:21 71.0 Auto Trigger Sinus Rhythm w/Artifact/Lead Loss 6 02/07/21 11:31 76.0 None or Accidental Push Sinus Rhythm w/Artifact 5 02/04/21 09:27 74.0 None or Accidental Push Sinus Rhythm w/Lead Loss 4 01/31/21 21:24 80.0 None or Accidental Push Sinus Rhythm w/Artifact 3 01/29/21 15:10 82.0 Auto Trigger Sinus Rhythm w/Artifact/Lead Loss 2 01/26/21 22:22 75.0 None or Accidental Push Sinus Rhythm w/1st Degree AV Block/Artifact 1 01/26/21 17:02 70 Baseline Sinus Rhythm w/Artifact I have personally reviewed and interpreted this study. Judah Duggan MD [facility] PROCEDURES Final Result documented in this encounter Visit Diagnoses Diagnosis Paroxysmal atrial fibrillation (CMS/HCC) (HCC) Atrial fibrillation documented in this encounter Care Teams Hse Advisor Relationship Specialty Start Date End Date Santiago Bueno MD [address] [facility] [address] [place] [address] PCP - General 12/02/20 10/12/21 [place] [address] [facility] [address] [place] [address] Rheumatology 07/15/17 documented as of this encounter
--- OUTSIDE RECORDS SUMMARY | 2024-08-29 10:18 | XMS_ITS | Encounter Summary ---
Author Organization [facility] Address [address] [place] [address] Phone Care Team Providers Care Network Infrastructure Architect Name Role Phone Gladis Song MD Unavailable Santiago Bueno MD Primary Care Provider [phone] Reason for Visit * Consultation (Routine) - Closed Specialty Diagnoses / Procedures Referred By Contvannessa t Referred To Contact Neurology Diagnoses History of arterial ischemic stroke Santiago Bueno MD [address] [place] [address] Phone: tel: fax: Jluis Gautam MD PhD [address] [place] [address] Phone: tel: fax: Referral ID Status Reason Start Date Expiration Date V isits Requested Visits Authorized [id number] Closed Specialty Services Required 01/30/2022 03/01/2023 1 1 Encounter Details Date Type Department Care Team (Latest Contact Info) Description 02/09/2022 12:30 PM CDT Office Visit [facility] Stroke [address] 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 Gender Identity Not on file Sexual Orientation Not on file Occupation Industry Job Start Date Job End Date Retired Not on file Not on file Not on file documented as of this encounter Last Filed Vital Signs Vital Sign Reading Time Taken Comments Blood Pressure 149/87 02/09/2022 12:37 PM CDT Pulse 73 02/09/2022 12:37 PM CDT Temperature - - Respiratory Rate - - Oxygen Saturation - - Inhaled Oxygen Concentration - - Weight 66.2 kg (146 lb) 02/09/2022 12:37 PM CDT Height 162.6 cm (5' 4 ) 02/09/2022 12:37 PM CDT Body Mass Index 25.06 02/09/2022 12:37 PM CDT documented in this encounter Progress Notes * Jluis Gautam MD PhD - 02/09/2022 12:30 PM CDT Patient Name: MIRELLA ORANTES Medical Record Number (MRN): [id number] Date of (): 1950 Encounter Date: 02/09/2022 Chief Complaint Mirella Orantes is a 71 y.o. year old right handed woman with PMH of migraines with aura, transient global amnesia, SLE, TGA (x2), GERD, OA, and MDD who is here for follow-up of hospitalization for subcortical left MCA stroke. HPI Since the last visit on 12/26/21, she has done well without any new signs or symptoms suggestive of stroke or TIA. She denies any major illnesses or hospitalizations. She continues on Eliquis despite the absence of atrial fibrillation on cardiac event monitor. She continues to complain of tremor in her right hand (which now involves the left hand), which sometimes leads to spilling of liquids, but is not affecting life style in a major way. She indicates that she is not interested in medications. She also notes that she has been forgetful. Daughter notes that she sometimes forgets earlier conversations. She notes that she has numbness in both of her feet--they feel like she is walking on lumps. She notes that she had an EMG and was noted to have neuropathy (I can't find record of EMG). She is requesting follow-up with neuromuscular specialist. Allergies Allergen Reactions ??? Latex Rash ??? Sulfa (Sulfonamide Antibiotics) Swelling ??? Levofloxacin Headache and Nausea only ??? Nitrofurantoin Headache Current Outpatient Medications on File Prior to Visit Medication Sig Dispense Refill ??? albuterol HFA (PROVENTIL HFA,VENTOLIN HFA,PROAIR HFA) 90 mcg/actuation inhaler Inhale 90 puffs ??? alosetron (LOTRONEX) 1 mg tablet Take 1 mg by mouth as needed ??? ascorbic acid (VITAMIN C) 1,000 mg tablet Take 1,000 mg by mouth daily ??? atorvastatin (LIPITOR) 80 mg tablet TAKE 1 TABLET BY MOUTH EVERY DAY 90 tablet 3 ??? azelastine (ASTELIN) 137 mcg (0.1 %) nasal spray INSTILL 1 SPRAY INTO EACH NOSTRIL DIRECTED 2 TIMES PER DAY ??? bisoprolol (ZEBETA) 5 mg tablet TAKE 1 TABLET BY MOUTH EVERY DAY 90 tablet 3 ??? calcium carbonate (OS-LEELA) 1,500 mg (600 mg of elemental calcium) tablet Take 2,000 mg of elemental calcium by mouth every morning ??? calcium carbonate-vitamin D3 1,250mg (500mg elemental) - 5 mcg (200 units) per tablet Take by mouth daily ??? cholecalciferol (VITAMIN D3) 2,000 unit tablet take 1 by Oral route every day (Patient taking differently: Take by mouth every morning) 0 0 ??? dexlansoprazole (DEXILANT) 60 mg capsule Take 60 mg by mouth 2 (two) times a day ??? Eliquis 5 mg tablet TAKE 1 TABLET BY MOUTH TWICE A DAY 180 tablet 3 ??? fluticasone propionate (FLOVENT HFA) 110 mcg/actuation inhaler Inhale 2 puffs 2 (two) times a day Rinse mouth with water after use. Do not swallow. (Patient taking differently: Inhale 2 puffs as needed Rinse mouth with water after use. Do not swallow.) 2 Inhaler 2 ??? furosemide (LASIX) 20 mg tablet TAKE 1 TABLET BY MOUTH EVERY DAY 90 tablet 3 ??? hydroCHLOROthiazide (HYDRODIURIL) 25 mg tablet TAKE 1 TABLET BY MOUTH EVERY DAY (Patient takingdifferently: Take 25 mg by mouth every morning) 90 tablet 3 ??? hydroxychloroquine (PLAQUENIL) 200 mg tablet Take 1 tablet (200 mg total) by mouth 2 (two) times a day. (Patient taking differently: Take 200 mg by mouth 2 (two) times a day) 180 tablet 0 ??? methotrexate 2.5 mg tablet TAKE 6 TABLETS BY MOUTH ONCE A WEEK ??? methscopolamine (PAMINE FORTE) 5 mg tablet Take 5 mg by mouth daily ??? montelukast (SINGULAIR) 10 mg tablet TAKE 1 TABLET BY MOUTH EVERY DAY AT NIGHT 90 tablet 3 ??? nitroglycerin (NITROSTAT) 0.4 mg SL tablet May repeat dose every 5 minutes for up to 3 doses total. 25 tablet 3 ??? ondansetron ODT (ZOFRAN-ODT) 4 mg disintegrating tablet DISSOLVE 1 TABLET IN MOUTH 10 MINUTES PRIOR TO EACH PREP DOSE NEEDED FOR NAUSEA ??? pantoprazole DR (PROTONIX) 40 mg EC tablet Take 40 mg by mouth 2 (two) times a day ??? PARoxetine (PAXIL) 20 mg tablet TAKE 1/2 TABLET BY MOUTH EVERY DAY IN THE MORNING 15 tablet 1 ??? potassium chloride ER (Klor-Con M20) 20 mEq CR tablet TAKE 2 TABLETS EVERY MORNING AND 2 TABLETS EVERY EVENING 360 tablet 3 ??? abatacept/maltose (ORENCIA, WITH MALTOSE, IV) Infuse into a venous catheter every 30 (thirty) days (Patient not taking: No sig reported) ??? folic acid (FOLVITE) 1 mg tablet Take 1 tablet (1 mg total) by mouth daily. Take one tab daily (Patient taking differently: Take 1 mg by mouth every morning Take one tab daily) 90 tablet 0 No current facility-administered medications on file prior to visit. Patient Active Problem List Diagnosis ??? Systemic lupus erythematosus (CMS/HCC) (HCC) ??? Gastroesophageal reflux disease ??? Tremor ??? Osteopenia ??? Moderate asthma with acute exacerbation ??? Anxiety state ??? BMI 28.0-28.9,adult ??? Late, effect, cerebrovascular disease ??? Borderline diabetes mellitus ??? Osteoarthritis ??? Restless legs ??? Obstructive sleep apnea syndrome ??? Obesity with body mass index 30 or greater ??? Patent foramen ovale ??? Benign paroxysmal positional vertigo of left ear ??? Paroxysmal atrial fibrillation (CMS/HCC) (HCC) ??? Other hyperlipidemia ??? History of arterial ischemic stroke ??? Epigastric abdominal pain ??? CAD (coronary artery disease) ??? Heart failure with preserved ejection fraction (CMS/HCC) (HCC) ??? 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 (CMS/HCC) (HCC) ??? Neuropathy (CMS/HCC) ??? Annual physical exam ??? Hypertensive heart disease with chronic systolic congestive heart failure (CMS/HCC) (HCC) ??? Tachycardia ??? Dyspepsia ??? Trigger finger of right thumb ??? Benign essential tremor ??? Forgetfulness Past Medical History: Diagnosis Date ??? Asthma ??? CAD (coronary artery disease) ??? Cerebrovascular accident (CVA) (CMS/HCC) (HCC) Stroke ??? CHF (congestive heart failure) (CMS/HCC) (HCC) ??? GERD (gastroesophageal reflux disease) ??? Heart murmur ??? 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 Hyperlipidemia ??? Hypertension ??? Irritable bowel syndrome (IBS) ??? Lupus (CMS/HCC) (HCC) ??? PFO (patent foramen ovale) ??? Sleep apnea ??? TIA (transient ischemic attack) Social History Socioeconomic History ??? Marital status: Spouse name: Not on file ??? Number of children: Not on file ??? Years of education: Not on file ??? Highest education level: Not on file Occupational History ??? Occupation: Retired Tobacco Use ??? Smoking status: Never Smoker ??? Smokeless tobacco: Never Used Vaping Use ??? Vaping Use: Never used Substance and Sexual Activity ??? Alcohol use: Yes Comment: 1 drink every two months ??? Drug use: No ??? Sexual activity: Not on file Other Topics Concern ??? Not on file Social History Narrative ??? Not on file Social Determinants of Health Financial Resource Strain: Not on file Food Insecurity: Not on file Transportation Needs: Not on file Physical Activity: Not on file Stress: Not on file Social Connections: Not on file Intimate Partner Violence: Not on file Housing Stability: Not on file Vital Signs Vitals: 02/09/22 1237 BP: 149/87 BP Location: Left arm Patient Position: Sitting Pulse: 73 Weight: 66.2 kg (146 lb) Height: 162.6 cm (5' 4 ) Review of Systems Cardiovascular: denied chest [...] ischemic stroke Ambulatory referral to Neurology 3. Forgetfulness 68 year old female with HTN, HLD, who is has had recurrent subcortical infarcts. She is currently on Eliquis, per Dr. Duggan for suspicion of atrial fibrillation. She has no evidence of paroxysmal a-fib (30-day event monitor from 2014 and more recently). She Plan 1. Stroke prevention - she has had recurrent subcortical strokes, likely due to aterioroloscleroticrisk factors. --Continue BP control --Continue treatment with high dose atorvastatin. --No evidence of A-fib. I asked her to discontinue Eliquis. Initiated bASA 2. Neuropathy--referral to Neuromuscular neurology 3. Forgetfulness--referral to [facility] 3. Follow-up in 6 months. Return in about 6 months (around 08/11/2022). Future Appointments Date Time Provider Department Center 06/22/2022 10:30 AM Judah Duggan MD [facility] 8A Cardiology 08/17/2022 11:00 AM Jluis Gautam MD PhD STR [facility] 6C I spent 5 minutes pre-charting, 30 min [id number] with patient, and 10 min post-charting. Total 45 min. Jluis Gautam M.D., Ph.D. Chris Parsons Professor of Neurology Head, Cerebrovascular Disease Section Co-Director, Stroke & Cerebrovascular Section [facility] documented in this encounter Plan of Treatment Not on file documented as of this encounter Visit Diagnoses Diagnosis Other hyperlipidemia- Primary History of arterial ischemic stroke Transient ischemic attack (TIA), and cerebral infarction without residual deficits Forgetfulness Other general symptoms documented in this encounter Historical Medications * This list may reflect changes made after this encounter. ascorbic acid (VITAMIN C) 1,000 mg tablet Take 1 tablet (1,000 mg total) by mouth daily added in this encounter Orders Outpatient Referral Count Last Ordered Date Fir st Ordered Date AMB REFERRAL TO NEUROLOGY 1 02/09/2022 documented in this encounter Care Teams Network Infrastructure Architect Relationship Specialty Start Date End Date Santiago Bueno MD [address] [facility] [address] [place] [address] PCP - General 10/18/21 02/18/22 [place] [id number] [facility] [address] [place] [address] Rheumatology 07/15/17 documented as of this encounter
--- OUTSIDE RECORDS SUMMARY | 2024-08-29 10:18 | XMS_ITS | Encounter Summary ---
Author Organization 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 Gender Identity Not on file Sexual Orientation Not on file Occupation Industry Job Start Date Job End Date Retired Not on file Not on file Not on file documented as of this encounter Plan of Treatment Scheduled Orders Name Type Priority Associated Diagnoses Orde r Schedule SCAN - CARDIOLOGY Cardiac Services O rdered: 02/20/2021 documented as of this encounter Visit Diagnoses Not on filedocumented in this encounter Care Teams Hand Scraper Relationship Specialty Start Date End Date Santiago Bueno MD [address] [place] [address] PCP - General 12/02/20 10/12/21 [place] [address] [facility] [address] [place] [id number] Rheumatology 07/15/17 documented as of this encounter
--- OUTSIDE RECORDS SUMMARY | 2024-08-29 10:18 | XMS_ITS | Encounter Summary ---
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
--- OUTSIDE RECORDS SUMMARY | 2024-08-29 10:19 | XMS_ITS | Encounter Summary ---
Author Organization [facility] Address [address] [place] [address] Phone Care Team Providers Care Electrician Supervisor Substation Name Role Phone Gladis Song MD Unavailable Santiago Bueno MD Primary Care Provider [phone] Encounter Details Date Type Department Care Team (Late st Contact Info) Description 01/18/2021 9:50 AM CDT Lab [facility] Endocrinology Metabolism and Lipid [address] [facility] 8[address] [place] [address] [place] [address] Hyperlipidemia, unspecified hyperlipidemia type Social History Tobacco Use Types Packs/Day [...] on file 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 Cont statin documented in this encounter Plan of Treatment Not on file documented as of this encounter Procedures Procedure Name Priority Date/Time Associated Diagnosis Comments LIPID PANEL Routine 01/18/2021 9:55 AM CDT Hyperlipidemia, unspecified hyperlipidemia type documented in this encounter Results * Lipid panel (01/18/2021 9:55 AM CDT) Triglycerides 119 0 - 149 mg/dL [facility] Comment: NATIONAL CHOLESTEROL EDUCATION PROGRAM ATP III GUIDELINES FOR ADULTS: Normal: ?<150 mg/dL Borderline High: 150-199 mg/dL High: ?200-499 mg/dL Very High: ? >=500 mg/dL Total Cholesterol 140 0 - 199 mg/dL [facility] Comment: NATIONAL CHOLESTEROL EDUCATION PROGRAM ATP III GUIDELINES FOR ADULTS: Desirable: ? <200 mg/dL Borderline High: 200-239 mg/dL High: ?>=240 mg/dL Total HDL-C Direct 64 >39 mg/dL [facility] Comment: NATIONAL CHOLESTEROL EDUCATION PROGRAM ATP III GUIDELINES FOR ADULTS: Optimal: ?>=60 mg/dL Near Optimal: 40-59 mg/dL High Risk: ?<40 mg/dL [place] LDL Chol 52 0 - 129 mg/dL [facility] Comment: NATIONAL CHOLESTEROL EDUCATION PROGRAM ATP III GUIDELINES FOR ADULTS: Optimal: ? <100 mg/dL Near Optimal: ?100-129 mg/dL Borderline High: 130-159 mg/dL High: ?160-189 mg/dL Very High: ? >=190 mg/dL Blood specimen (specimen) 01/18/2021 9:55 AM CDT 01/18/2021 10:12 AM CDT us Mary Beth Coulter NP LAB BLOOD ORDERABLES Final Result [facility] documented in this encounter Visit Diagnoses Diagnosis Hyperlipidemia, unspecified hyperlipidemia type documented in this encounter Care Teams Electrician Supervisor Substation Relationship Specialty Start Date End Date Santiago Bueno MD [address] [facility] [address] [place] [address] PCP - General 12/02/20 10/12/21 [place] [address] [facility] [address] [place] [address] Rheumatology 07/15/17 documented as of this encounter
--- OUTSIDE RECORDS SUMMARY | 2024-08-29 10:19 | XMS_ITS | Encounter Summary ---
Author Organization [facility] Address [address] [place] [address] Phone Care Team Providers Care Staffing Assistant Name Role Phone Gladis Song MD Unavailable No, Physician Primary Care Provider [phone] Encounter Details Date Type Department Care Team (Late st Contact Info) Description 09/12/2020 Telephone [facility] Cardiology [address] [facility] 8th [place] [address] [place] [id number] Judah Duggan MD [address] [place] [address] Social History Tobacco Use Types Packs/Day Years [...] on file 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 Duggan recs; verbalizes understanding R HEAD STRINGER * Telephone Encounter - Judah Duggan MD - 09/12/2020 2:00 PM CST Please have her hold Eliquis. If extraction is in the afternoon that is ok. She can restart eliquison 09/15. R HEAD STRINGER * Telephone Encounter - Brooke Melissa BS - 09/12/2020 1:35 PM CIGAR HEAD STRINGER [place] Pt calling. She is having dental procedure - extraction - on sat the , She is wanting to know if she should stop blood thinner. Please call to advise. R HEAD STRINGER documented in this encounter Plan of Treatment Not on file documented as of this encounter Visit Diagnoses Not on filedocumented in this encounter Care Teams Staffing Assistant Relationship Specialty Start Date End Date No, Physician PCP - General 06/10/20 10/30/20 [place] [address] [facility] [address] [place] [address] Rheumatology 07/15/17 documented as of this encounter
--- OUTSIDE RECORDS SUMMARY | 2024-08-29 10:19 | XMS_ITS | Encounter Summary ---
Author Organization [facility] Address [address] [place] [address] Phone Care Team Providers Care Financial Systems Administrator Name Role Phone Gladis Song MD Unavailable Gabriel Persaud MD Primary Care Provider Reason for Referral * Cardiology (Routine) - Closed Specialty Diagnoses / Procedures Referred By Contac t Referred To Contact Diagnoses Paroxysmal atrial fibrillation (CMS/HCC) (HCC) Procedures Transthoracic Echo Complete W Doppler/CF Judah Duggan MD Phone: tel: fax: [address] [address] Referral ID Status Reason Start Date Expiration Date Visits Re quested Visits Authorized [id number] Closed 11/29/2020 12/29/2021 1 1 Encounter Details Date Type Department Care Team (Late st Contact Info) Description 11/29/2020 Orders Only [facility] Cardiology [address] [facility] 8th [place] [address] [place] [address] Judah Duggan MD [address] [place] [address] Paroxysmal atrial fibrillation (CMS/HCC) (Primary Dx); Coronary artery disease involving northwestern shoshone heart without angina pectoris, unspecified vessel or lesion type; Shortness of breath Social History Tobacco Use Types Packs/Day Years [...] on file 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 Gender Identity Not on file Sexual Orientation Not on file Occupation Industry Job Start Date Job End Date Retired Not on file Not on file Not on file documented as of this encounter Plan of Treatment Scheduled Orders Name Type Priority Associated Diagnoses Orde r Schedule Basic metabolic panel Lab Routine Coronary artery disease involving northwestern shoshone heart without angina pectoris, unspecified vessel or lesion type Expected: 11/29/2020, Expires: 11/29/2021 CBC with auto differential Lab Routine Coronary artery disease involving northwestern shoshone heart without angina pectoris, unspecified vessel or lesion type Expected: 11/29/2020, Expires: 11/29/2021 Pro B-type natriuretic peptide Lab Routine Paroxysmal atrial fibrillation (CMS/HCC) Coronary artery disease involving northwestern shoshone heart without angina pectoris, unspecified vessel or lesion type Shortness of breath Expected: 11/29/2020, Expires: 11/29/2021 documented as of this encounter Results * TRANSTHORACIC ECHO (TTE) COMPLETE W DOPPLER/CF W CONTRAST (01/18/2021 9:08 AM CDT) Anatomical Region Laterality Modality Ultrasound 01/18/2021 8:00 AM CDT Narrative 01/18/2021 9:55 AM CDT Patient name: Chio Orantes Date of test: 01/18/2021 Type of test: TTE w/Doppler [facility] #: [id number] Date of : 1950 (F) Tool Design Checker: Joan Harmon RDCS Referring Physician: JUDAH DUGGAN MD Contrast Agent: 0.4 ml Optison Administered, (2.6 ml wasted). Contrast Administered by: Dannielle Yang RN Supervised/Interpreted by: Ashley Ovalles MD Diagnosis: Location: [facility] Reason for test: paroxysmal atrial fibrillation MV Structure: mildly thickened, ?MV Motion: Normal, ?? Mitral Annulus: mildly calcified AV Structure: tricuspid and is Normal, ?? AV Motion: Normal Aotic root: atherosclerotic, ?TM: Normal, ?? PV: Normal Valvular Vegetations: none seen, ?Mass/Thrombi: none seen RA: Normal Measurements: ?M-Mode ?Normal ? Aotic Root: ? <3.8 ? LA: ? <3.8 ? RV: ? <2.8 ? LV(ED): ? <5.7 ? LV(ES): ? Variable ?2D Linear Normal ? Aotic Root: 3.2 cm ?<3.6 ? Ao Indexed: 2.0 cm/M2 <2.0 ? LA: ? <3.8 ? RV: ? 3.2 cm ?<4.2 ? LV(ED): ? 3.7 cm ?<5.3 ? LV(ES): ? 2.1 cm ?<3.5 ?2D Vol. ?? Normal ?Indexed ?? Indexed Normal RA: ? 29.0 ml ? 17.8 ml/M2 ?9-33 ? LA: ? 35.0 ml ? 21.4 ml/M2 ?16-34 ? RV: ? <11.6 ? LV(ED): ? 76.0 ml ?? 46-106 ?46.5 ml/M2 ?<62 ? LV(ES): ? 26.0 ml ?? 14-42 ? 15.9 ml/M2 ?<25 ?3D Vol. ? Indexed Normal LV(ED): ?<62 ? LV(ES): ?<24 ? LV EF: 66 % ?? (Normal: >=54%) ?? LV Septum: 1.1 cm ?(Normal: <0.9 cm) Wall Motion Scoring (1=Normal 2=Hypo 3=Akinetic 4=Dyskin./Aneurysm 0=Not visualized) Parasternal Long [place]:MAS=1 BAS=1 MIL=1 MARCY=1 Parasternal Short [place]:MAS=1 MIS=1 NM=1 MIL=1 MAL=1 MA=1 Apical 4 Chambers:=1 MIS=1 BIS=1 BAL=1 MAL=1 AL=1 AC=1 Apical 2 Chambers:AI=1 NM=1 BI=1 BA=1 MA=1 AA=1 AC=1 LV Global Longitudinal Strain: -17.8% ??(Normal <-17%) RV Global Longitudinal Strain: LV Function: Normal LV Ejection Fraction, ??(EF=54-74%) RV Function: Normal Septal Motion: Normal Pericardial Effusion: none seen Atrial Septum: see below DOPPLER/COLOR FLOW DOPPLER RESULTS: Diastolic Function: Grade I, altered relax. w/N. LA pres. Tricuspid Valve: mild TV regurgitation Pulmonic Valve: normal PV AV Regurgitation: Mild AR AV Stenosis: no AV Area: ??cm2 AV Pressure Gradient (mmHg): Mean: 0, Peak:0 MV Regurgitation: Mild MR MV Stenosis: no MS MV Area: ??cm2 MV Pressure Gradient (mmHg): Mean: 0 MV ERO: ??cm Regurg. Vol.: ??ml/beat Regurg. Frac.: ??% PA Pressure: 22+ mmHg DOPPLER/COLOR FOLOW DOPPLER COMMENTS: Mild AR, Mild MR, no , no MS, mild TV regurgitation, normal PV. Diastolic function: Grade I, altered relax. w/N. LA pres. CONTRAST: 0.4 ml Optison Administered, (2.6 ml wasted). SUMMARY: LV cavity size is normal. Normal LV wall thickness/mass. Normal LVSF. LVEF 66%. Normal global LV Myocardial longitudinal function and LV strain pattern. Altered LV relaxation. ??Normal RV cavity size. Mild AR. Mild MR, TR. LA is normal. Normal Inferior vena cava. Color Doppler suggests small secundum ASD (v. stretched PFO) with left to right color Doppler. Normal est PASP. Aortic root 3.2 cm. Confirmed on ??01/18/2021 - 09:55:38 by Ashley Ovalles MD By signing this report, the attending stage driver certifies that he or she has personally supervised and interpreted the echocardiogram and has reviewed and or edited and agrees with the written comments contained within the report. Procedure Note Ashley Ovalles MD - 01/18/2021 Patient name: Chio Orantes Date of test: 01/18/2021 Type of test: TTE w/Doppler [facility] #: [id number] Date of : 1950 (F) Tool Design Checker: Joan Harmon [facility] Referring Physician: JUDAH DUGGAN MD Contrast Agent: 0.4 ml Optison Administered, (2.6 ml wasted). Contrast Administered by: Dannielle Yang RN Supervised/Interpreted by: Ashley Ovalles MD Diagnosis: Location: [facility] Reason for test: paroxysmal atrial fibrillation MV Structure: mildly thickened, MV Motion: Normal, Mitral Annulus: mildly calcified AV Structure: tricuspid and is Normal, AV Motion: Normal Aotic root: atherosclerotic, TM: Normal, PV: Normal Valvular Vegetations: none seen, Mass/Thrombi: none seen RA: Normal Measurements: M-Mode Normal Aotic Root: <3.8 LA: <3.8 RV: <2.8 LV(ED): <5.7 LV(ES): Variable 2D Linear Normal Aotic Root: 3.2 cm <3.6 Ao Indexed: 2.0 cm/M2 <2.0 LA: <3.8 RV: 3.2 cm <4.2 LV(ED): 3.7 cm <5.3 LV(ES): 2.1 cm <3.5 2D Vol. Normal Indexed Indexed Normal RA: 29.0 ml 17.8 ml/M2 9-33 LA: 35.0 ml 21.4 ml/M2 16-34 RV: <11.6 LV(ED): 76.0 ml 46-106 46.5 ml/M2 <62 LV(ES): 26.0 ml 14-42 15.9 ml/M2 <25 3D Vol. Indexed Normal LV(ED): <62 LV(ES): <24 LV EF: 66 % (Normal: >=54%) LV Septum: 1.1 cm (Normal: <0.9 cm) Wall Motion Scoring (1=Normal 2=Hypo 3=Akinetic 4=Dyskin./Aneurysm 0=Not visualized) Parasternal Long [place]:MAS=1 BAS=1 MIL=1 MARCY=1 Parasternal Short [place]:MAS=1 MIS=1 NM=1 MIL=1 MAL=1 MA=1 Apical 4 Chambers:=1 MIS=1 BIS=1 BAL=1 MAL=1 AL=1 AC=1 Apical 2 Chambers:AI=1 NM=1 BI=1 BA=1 MA=1 AA=1 AC=1 LV Global Longitudinal Strain: -17.8% (Normal <-17%) RV Global Longitudinal Strain: LV Function: Normal LV Ejection Fraction, (EF=54-74%) RV Function: Normal Septal Motion: Normal Pericardial Effusion: none seen Atrial Septum: see below DOPPLER/COLOR FLOW DOPPLER RESULTS: Diastolic Function: Grade I, altered relax. w/N. LA pres. Tricuspid Valve: mild TV regurgitation Pulmonic Valve: normal PV AV Regurgitation: Mild AR AV Stenosis: no AV Area: cm2 AV Pressure Gradient (mmHg): Mean: 0, Peak:0 MV Regurgitation: Mild MR MV Stenosis: no MS MV Area: cm2 MV Pressure Gradient (mmHg): Mean: 0 MV ERO: cm Regurg. Vol.: ml/beat Regurg. Frac.: % PA Pressure: 22+ mmHg DOPPLER/COLOR FOLOW DOPPLER COMMENTS: Mild AR, Mild MR, no , no [...] Normal est PASP. Aortic root 3.2 cm. Confirmed on 01/18/2021 - 09:55:38 by Ashley Ovalles MD By signing this report, the attending stage driver certifies that he or she has personally supervised and interpreted the echocardiogram and has reviewed and or edited and agrees with the written comments contained within the report. us Judah Duggan MD CV ECHO PROCEDURES Final Resul t documented in this encounter Visit Diagnoses Diagnosis Paroxysmal atrial fibrillation (CMS/HCC) (HCC)- Primary Atrial fibrillation Coronary artery disease involving northwestern shoshone heart without angina pectoris, unspecified vessel or lesion type Shortness of breath Paroxysmal atrial fibrillation (CMS/HCC) (HCC) Atrial fibrillation documented in this encounter Care Teams Financial Systems Administrator Relationship Specialty Start Date End Date Gabriel Persaud MD [address] [address] PCP - General Family Medicine 11/29/20 12/01/20 [place] [id number] [address] Rheumatology 07/15/17 documented as of this encounter
--- OUTSIDE RECORDS SUMMARY | 2024-08-29 10:19 | XMS_ITS | Encounter Summary ---
Author Organization [facility] Address [address] [place] [address] Phone Care Team Providers Care Warehouse Selector Name Role Phone Santiago Bueno MD Primary Care Provider [phone] Gladis Song MD Unavailable Silvia Granger DPT Unavailable [phone] Reason for Visit * Reason Comments PT Treatment * Consultation (Routine) - Canceled Specialty Diagnoses / Procedures Referred By Valerie florian Referred To Contact Occupational Therapy Diagnoses Bilateral hand pain Lynn Ventura, FELICIA [address] [place] [address] Phone: tel: fax: [facility] Occupational Therapy [facility] 6th [place] [address] [place] [address] Phone: tel: fax: Referral ID Status Reason Start Date Expiration Date Visits Requested Visits Authorized [id number] Canceled Specialty Services Required 04/06/2020 05/06/2021 24 24 Encounter Details Date Type Department Care Team (Late st Contact Info) Description 04/14/2020 9:00 AM CDT Therapy [facility] Occupational Therapy [address] [facility] 6th [place] [address] [place] [address] Silvia Granger DPT [address] [facility] [address] [place] [address] Trigger thumb of both hands (Primary Dx) Social History Tobacco Use Types [...] file 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 female Lucrecia Gallegos MD [address] [place] [address] ICD-9-CM ICD-10-CM 1. Trigger thumb of both hands 727.03 M65.311 M65.312 Start time: 9:00 am Diagnosis: triggering and lupus Surgery: ??R thumb trigger release, L side injection/steroid thumb ?? Frequency/Duration:1-2x/week for 3 months ? Next MD Visit: ??TBD ? OT/PT Evaluate and Treat: Edema management, A/PROM, gentle scar management ?? Subjective: Ms. Orantes says she is almost back to normal. She has a little pain that comes and goes, Sometimes with use and sometimes at rest. She reports her hand feels strong enough to do all her activities andshe was able to rosanna (since her last visit). [] Mental health status discussed Details: Pain: 1 Objective: Visual - healed incision line with dried skin around edges AROM: R thumb PA 48 R thumb RA 45 R thumb opposition to 5th MC Circumferential edema P1 thumb: R 7.1, L 6.9 cm Treatment provided: Scar massage performed and she is performing it at home- a little tender Discussed her daily activities and she is able to do everything. Instructed to continue with scar massage and continue with increase use of R hand. Discussed possibly beginning a strengthening program in therapy, but patient reports she does not think she needs it. Assessment: Pt demonstrates great healing of incision and increased ROM of R thumb. She is able to perform all of her daily and recreational activities. Plan: Discharge from therapy. GOALS: Goal Status / Date Updated Due by: STG1 Pt to be ind with HEP. Met 04/14/2020 04/15/2020 ? LTG1 Pt to increase AROM R thumb to allow return to all activities. Met 04/14/2020 05/01/2020 ? End Time:9:10 am Silvia Granger PT, DPT, CHT documented in this encounter Plan of Treatment Not on file documented as of this encounter Visit Diagnoses Diagnosis Trigger thumb of both hands- Primary documented in this encounter Care Teams Warehouse Selector Relationship Specialty Start Date End Date Santiago Bueno MD [address] [facility] [address] [place] [address] PCP - General 11/30/16 06/09/20 [place] [address] [facility] [address] [place] [address] Rheumatology 07/15/17 Silvia Granger DPT [address] [facility] [address] [place] [address] Physical Therapist Physical Therapy 04/14/20 06/09/20 documented as of this encounter
--- OUTSIDE RECORDS SUMMARY | 2024-08-29 10:19 | XMS_ITS | Encounter Summary ---
Author Organization [facility] Address [address] [place] [address] Phone Care Team Providers Care Record Press Operator Name Role Phone Gladis Song MD Unavailable No, Physician Primary Care Provider [phone] Reason for Visit * Reason Onset Date Comments PT Discharge 06/10/2020 Encounter Details Date Type Department Care Team (Late st Contact Info) Description 06/10/2020 Documentation [facility] Occupational Therapy [address] [facility] 6th [place] [address] [place] [address] Silvia Granger DPT [address] [id number] PT Discharge Social History Tobacco Use Types Packs/Day Years [...] file 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 Gender Identity Not on file Sexual Orientation Not on file Occupation Industry Job Start Date Job End Date Retired Not on file Not on file Not on file documented as of this encounter Progress Notes * Silvia Granger DPT - 06/10/2020 11:08 AM CDT PT Discharge Note Chio Orantes Trigger thumb PT Start Date: 04/06/2020 Last PT Visit: 06/01/2020 Cancellations: 0 No Shows: 0 Total PT Visits: 3 Date of last MD appointment: 04/28/2020 Goals: See Therapy Progress Note Additional information as available: See most recent Therapy Progress Note (ASSESSMENT and PLAN Section) Plan is to discontinue physical therapy treatment. Silvia Granger PT, DPT, CHT documented in this encounter Plan of Treatment Not on file documented as of this encounter Visit Diagnoses Not on filedocumented in this encounter Care Teams Record Press Operator Relationship Specialty Start Date End Date No, Physician PCP - General 06/10/20 10/30/20 [place] [address] [address] Rheumatology 07/15/17 documented as of this encounter
--- OUTSIDE RECORDS SUMMARY | 2024-08-29 10:19 | XMS_ITS | Encounter Summary ---
Author Organization [facility] Healthcare Address [address] [place] [address] Care Team Providers Care Computed Tomography Scanner Operator Name Role Phone Santiago Bueno MD Primary Care Provider [phone] Gladis Song MD Unavailable Encounter Details Date Type Department Care Team (Late st Contact Info) Description 03/28/2020 7:30 AM CDT - 03/28/2020 9:15 AM CDT Surgery [facility] Operating [facility] ([facility]) [address] [place] [id number] Lucrecia Gallegos MD [facility] [address] [place] [address] RELEASE TRIGGER FINGER - THUMB Surgery Details Date/Time Status Location OR Service Patient Class Case Cl ass Case Type Trauma Case? 03/28/2020 7:30 AM Posted [facility] CAM OR POD 4 H Plastics Outpatient Elective Panel 1 Procedure LRB Anes Op Region Wound Class Comments RELEASE TRIGGER FINGER - THUMB Right Monitor Anesthesia Care Fingers Class I - Clean INJECTION STEROID - FINGER - THUMB Left Monitor Anesthesia Care Hand Class I - Clean Surgeon Surgeon Role Service Panel Lucrecia Gallegos MD Primary Plastics 1 Roc Salmon MD Resident - Assisting Gener al Surgery 1 Case Notes 03/25/2020 - Has other case in POD 2 Special Needs Position Supine documented in this encounter Social History Tobacco [...] on file Legal Sex Female 12:11 AM [employer] Gender Identity Not on file Sexual Orientation Not on file Occupation Industry Job Start Date Job End Date Retired Not on file Not on file Not on file documented as of this encounter Last Filed Vital Signs Vital Sign Reading Time Taken Comments Blood Pressure 111/68 03/28/2020 8:30 AM CDT Pulse 71 03/28/2020 8:30 AM CDT Temperature 36.3 ??C (97.3 ??F) 03/28/2020 8:14 AM CD T Respiratory Rate 18 03/28/2020 6:35 AM CDT Oxygen Saturation 97% 03/28/2020 8:30 AM CDT Inhaled Oxygen Concentration - - Weight 66.7 kg (147 lb) 03/28/2020 6:35 AM CDT Height 152.4 cm (5') 03/28/2020 6:35 AM CDT Body Mass Index 28.71 03/28/2020 6:35 AM CDT documented in this encounter Medications at Time of Discharge albuterol HFA (PROVENTIL HFA,VENTOLIN HFA,PROAIR HFA) 90 mcg/actuation inhaler Inhale 90 puffs 03/31/2019 calcium carbonate (OS-LEELA) 1,500 mg (600 mg of elemental calcium) tabletIndications:Po st-Menopausal Osteoporosis Prevention Take 2,000 mg of elemental calcium by mouth every morning cholecalciferol (VITAMIN D3) [...] MOUTH EVERY DAY 90 tablet 3 06/01/2019 albuterol HFA (PROVENTIL HFA,VENTOLIN HFA,PROAIR HFA) 90 mcg/actuation inhalerIndications:B ronchospastic Pulmonary Disease Inhale 90 puffs every 4 (four) hours as needed for wheezing or shortness of breath 1 Inhaler 2 03/31/2019 0 atorvastatin (LIPITOR) 80 mg tablet TAKE 1 TABLET BY MOUTH EVERY DAY 90 tablet 3 05/26/2019 0 bisoprolol (ZEBETA) 5 mg tablet TAKE 1 TABLET BY MOUTH EVERY DAY 90 tablet 2 03/22/2020 1 Eliquis 5 mg tablet TAKE 1 TABLET BY MOUTH TWICE A DAY 60 tablet 4 03/07/2020 0 furosemide (LASIX) 20 mg tablet TAKE 1 TABLET BY MOUTH EVERY DAY 90 tablet 3 06/16/2019 0 hydroxychloroquine (PLAQUENIL) 200 mg tablet Take 1 tablet (200 mg total) by mouth 2 (two) times a day. 180 tablet 05/14/2018 4 methotrexate 25 mg/mL syringe Inject 0.6 mL (15 mg total) under the skin once a week. 8 mL 03/19/2018 1 methscopolamine (PAMINE FORTE) 5 mg tabletIndications:IB S Take 5 mg by mouth every morning 1 montelukast (SINGULAIR) 10 mg tablet TAKE 1 TABLET BY MOUTH EVERY DAY EVERY NIGHT 90 tablet 1 02/16/2020 1 nitroglycerin (NITROSTAT) 0.4 mg SL tablet May repeat dose every 5 minutes for up to 3 doses total. 25 tablet 3 05/23/2018 4 ondansetron ODT (ZOFRAN-ODT) 4 mg disintegrating tablet 11/02/2019 4 PARoxetine (PAXIL) 20 mg tablet TAKE 1 TABLET BY MOUTH EVERY DAY 90 tablet 1 01/03/2020 1 potassium chloride ER (Klor-Con M20) 20 mEq CR tablet TAKE 2 TABLETS EVERY MORNING AND 2 TABLETS EVERY EVENING 360 tablet 3 01/04/2020 1 documented as of this encounter Discharge Disposition Disposition Code Departure Means Destination Discharge to home or self care documented in this encounter H&P Notes * Lucrecia Gallegos MD - 03/28/2020 7:06 AM CDT I have reviewed the H&P, examined the patient, and endorse the findings as written. Plan of Care : Based on the above findings, I consider Chio Orantes to be an acceptable risk for :Procedure(s): RELEASE TRIGGER FINGER - THUMB INJECTION STEROID - FINGER - THUMB RIGHT side surgery Left side injection MAC w Kinza Block Source Note - Jessy Will NP - 03/21/2020 5:08 PM CDT Images from the original note were not included. Center for Preoperative Assessment and Planning Preoperative Evaluation Record Evaluation type/location: TPAP from [facility] Planned procedure site: [facility] CAM OR (Pod 4) Date: 03/21/20 NOTE: This note represents a preoperative evaluation initiated via telephone interview. NO PHYSICALEXAM was performed at the time of initial assessment. A physical exam may be added to this note anddocumented below. Anesthesia Evaluation Chio Orantes is a 69 y.o. female Procedure(s): RELEASE TRIGGER FINGER - THUMB INJECTION STEROID - FINGER - THUMB Pre-Op Diagnosis Codes: * Trigger finger of right thumb [M65.311] HISTORY HPI 69 yo female presents for right thumb trigger finger release & left thumb corticosteroid injection Past Medical History Information obtained from: patient and chart. Neurological + CVA/Stroke (Presented with right-sided weakness for 3 days and then resolved. Denies residual. Started on Eliquis at that time.) Number of CVA episodes: 1. Date of last CVA: 03/2016. + TIA Number of TIA episodes: 2. Date of last TIA: 2013. + ICA stenosis (Per carotid duplex in 2014) - left internal carotid artery and right internal carotid artery. Left ICA stenosis <50%. Right ICA stenosis <50% stenosis. Pertinent negatives: seizures; neuromuscular disease; CEA; dementia/mild cognitive impairment and carotid artery stent Cardiovascular + Hypertension (Patient reports compliance with anti-hypertension. Patient reports last change to BP medications was in 2019.) Hypertension year diagnosed: 1999. Typical systolic BP - 127 Typical diastolic BP - 68 + Hyperlipidemia (Rx atorvastatin) + CAD (Per cardiac cath in 2018: mild coronary artery disease 20-30% narrowing in the circumflex and right coronary artery with markedly elevated LVEDP) - Angina class: no angina + CHF (Patient denies hospitalizations for CHF. Last ECHO performed in 2018: EF 61%) CHF Etiology: unknown. Diastolic function: stage I - impaired relaxation LVEF: 60-70%. + Current valvular disease (Per ECHO performed in 2018: Mild ND) - AR - mild; MR - mild; TR - mild. + Atrial fibrillation/flutter (chart history of a-fib. Patient denies diagnosis or history of cardioversion. Not documented in last cardiology note.) - Pertinent negatives: AZ ; CABG ; valve replacement; arrhythmia; pacemaker/ICD; PVD; DVT/PE; drug-eluting stent(s); bare metal stent(s) and coronary angioplasty Respiratory + Asthma (Last use of steroids was in April 2019. patient reports asthma is well controlled) Dyspnea frequency: never. Rescue inhaler use: never. Hospitalizations/ER in the last year: 0. History of oral steroid use. + Sleep apnea (AZUL) Prescribed device: PAP compliant and CPAP. Pertinent negatives: COPD; pulmonary hypertension; no O2 use outside the hospital and non-smoker Hepatic / Heme Pertinent negatives: liver disease; history of anemia; history of thrombocytopenia and history of Nahed positive Gastrointestinal + GERD (PRN Tums with relief) - does not use medication. Symptoms weekly but < daily. Pertinent negatives: hiatal hernia Renal / Pertinent negatives: renal disease; dialysis and nephrolithiasis Musculoskeletal/Pain + Chronic pain (Chronic pain to muscles ) Pertinent negatives: chronic opioid use and previous treatment for opioid use disorder Endocrine / Other + Rheumatological disease (Lupus diagnosed in 1974.) - systemic lupus erythematosus. Pertinent negatives: diabetes mellitus; thyroid disease; obesity (BMI >30); cancer history and transplanted organ Functional Capacity Functional capacity: 4-6 METs Comments: Patient is able to climb 2 flights of stairs at a moderate pace without SOB or CP. Review of Systems + easy bruising (Denies excessive nosebleeds or bleeding gums) + chronic pain (Chronic pain to muscles ) + numbness/tingling (neuropathy to bilateral feet, chronic) + vision loss (wears corrective lenses) + heartburn (1-2 times per week, reports previously on pantoprazole, but recently stopped. PRN tumshelps) Pertinent negatives: productive cough; wheezing; SOB; recent cold/flu; fever; chest pain; palpitations; orthopnea; pedal edema; PND; heavy menses; Sickle Cell disease/trait; previous transfusion; transfusion reaction; melena/hematochezia; bleeding problems; syncope; dizziness; muscle weakness; hardof hearing; nausea; dysphagia; diarrhea; dentures/partials; chipped/loose teeth; abdominal pain; diaphoresis and no unexpected weight change PAT Summary and Plans Cardiac risk classification of planned procedure: low cardiac risk. Preoperative assessment status: complete. Initial preoperative evaluation discussed with: Latasha Gutierrez MD Additional comments: Chio Orantes is a 69 y.o. female who is being evaluated prior to undergoing alow cardiac risk surgery. Revised Cardiac Risk Index factors are (ischemic heart disease, history of CHF and history of cerebrovascular disease) for a total RCRI of 3 out of 6. Functional capacity is 4-6 METs. This assessment was performed via telephone. Therefore the physical exam has been deferred to the day of surgery team. The patient was provided with preoperative instructions for their medications. The patient was informed that instructions regarding stopping any therapeutic antiplatelet or anticoagulant medications will be provided by the surgeon's office. The patient was instructed that they will likely need to stop their anticoagulant medication Eliquis prior to surgery and that such instructions will be provided by the surgeon's office. The patient was instructed to shower/bathe the night prior and the morning of the planned procedure using an antibacterial soap. Patient instructions were provided by telephone and in writing sent via [employer]PS mail. Patient verbalized understanding of preoperative plan. Patient with No known exposure to COVID19 and no concerning symptoms of COVID19. Plan for pre-procedure COVID19 testing: Telephone assessment performed. Pre- procedure COVID19 testing scheduled to be performed on 03/24/2020 at [facility]. . + PFO This patient has a history of atrial fibrillation with a [id number] score of 6 at MODERATE risk for perioperative thromboembolic events due to [id number] score as per the 2017 ACC Expert Consensus Pathway. The patient is on oral anticoagulation therapy with apixaban (ELIQUIS) Estimated creatinine clearance is presumed to be greater than 30ml/min pending lab results For this procedure and anesthetic, our estimation of bleeding-associated risks is that the possibility of a small amount of residual anticoagulation at the time of surgery would be acceptable. Therefore we recommend holding all doses of this anticoagulant for 3 days (72 hours) prior to the procedure. Therapeutic anticoagulation should be resumed post-operatively, typically on the day after surgery. The patient reports that such a plan is already in place. Please call the CPAP attending ([phone]) to revisit bleeding risk assessment, with any questions, or to discuss alternative management plans. Obstructive sleep apnea (AZUL) screening status is HIGH RISK due to known AZUL. Blood bank needs for day of procedure: No type and screen needed TPAP assessment complete. Preoperative evaluation performed by Jessy Will NP on 03/21/20 at 5:44 PM. . Patient Active Problem List Diagnosis ??? Systemic lupus erythematosus (CMS/HCC) ??? Gastroesophageal reflux disease ??? Tremor ??? [...] left ear ??? Paroxysmal atrial fibrillation (CMS/HCC) ??? Other hyperlipidemia ??? History of arterial ischemic stroke ??? Epigastric abdominal pain ??? CAD (coronary artery disease) ??? Heart failure with preserved ejection fraction (CMS/HCC) ??? 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 (CMS/HCC) ??? Neuropathy (CMS/HCC) ??? Annual physical exam ??? Hypertensive heart disease with chronic systolic congestive heart failure (CMS/HCC) ??? Tachycardia ??? Dyspepsia ??? Trigger finger of right thumb Past Medical History: Diagnosis Date ??? Asthma ??? CAD (coronary artery disease) ??? Cerebrovascular accident (CVA) (CMS/HCC) Stroke ??? CHF (congestive heart failure) (CMS/HCC) ??? GERD (gastroesophageal reflux disease) ??? Heart murmur ??? 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 Hyperlipidemia ??? Hypertension ??? Irritable bowel syndrome (IBS) ??? Lupus (CMS/HCC) ??? PFO (patent foramen ovale) ??? Sleep apnea ??? TIA (transient ischemic attack) Past Surgical History: Procedure Laterality Date ??? APPENDECTOMY 1974 ??? BILATERAL OOPHORECTOMY 1974 ??? SECTION 1974 ??? COLONOSCOPY 2019 ??? HYSTERECTOMY ??? TONSILLECTOMY/ADENOIDECTOMY 1956 As a child ??? UPPER GASTROINTESTINAL ENDOSCOPY 2019 OB History No obstetric history on file. Allergies Allergen Reactions ??? Latex Rash ??? Sulfa (Sulfonamide Antibiotics) Swelling ??? Levofloxacin Headache and Nausea only ??? Nitrofurantoin Headache Med List Status: Nurse Complete Set By: Ying Gastelum RN at 03/18/2020 4:30 PM Taking? Last Dose Start Date End Date Provider albuterol HFA (PROVENTIL HFA,VENTOLIN HFA,PROAIR HFA) 90 mcg/actuation inhaler 03/31/19 -- Jessy Castellon NP Inhale 90 puffs every 4 (four) hours as needed for wheezing or shortness of breath Patient taking differently: Inhale 90 puffs every 4 (four) hours as needed for wheezing or shortness of breath atorvastatin (LIPITOR) 80 mg tablet 05/26/19 -- Judah Duggan MD TAKE 1 TABLET BY MOUTH EVERY DAY Patient taking differently: Take 80 mg by mouth nightly bisoprolol (ZEBETA) 5 mg tablet 09/28/19 09/27/20 Judah Duggan MD Take 1 tablet (5 mg total) by mouth daily Patient taking differently: Take 5 mg by mouth every morning calcium carbonate (OS-LEELA) 1,500 mg (600 mg of elemental calcium) tablet -- -- Historical ProviderMD cholecalciferol (VITAMIN D3) 2,000 unit tablet 11/30/14 -- -- take 1 by Oral route every day Patient taking differently: Take by mouth every morning Eliquis 5 mg tablet 03/07/20 -- Judah Duggan MD TAKE 1 TABLET BY MOUTH TWICE A DAY Patient taking differently: Take 5 mg by mouth 2 (two) times a day fluticasone propionate (FLOVENT HFA) 110 mcg/actuation inhaler 03/31/19 -- Jessy Castellon NP Inhale 2 puffs 2 (two) times a day Rinse mouth with water after use. Do not swallow. Patient taking differently: Inhale 2 puffs as needed Rinse mouth with water after use. Do not swallow. folic acid (FOLVITE) 1 mg tablet () 05/14/18 03/18/20 Gladis Song MD Take 1 tablet (1 mg total) by mouth daily. Take one tab daily Patient taking differently: Take 1 mg by mouth every morning Take one tab daily furosemide (LASIX) 20 mg tablet 06/16/19 -- Judah Duggan MD TAKE 1 TABLET BY MOUTH EVERY DAY Patient taking differently: Take 20 mg by mouth every morning hydroCHLOROthiazide (HYDRODIURIL) 25 mg tablet 06/01/19 -- Jessy Rossi NP TAKE 1 TABLET BY MOUTH EVERY DAY Patient taking differently: Take 25 mg by mouth every morning hydroxychloroquine (PLAQUENIL) 200 mg tablet 05/14/18 -- Gladis Song MD Take 1 tablet (200 mg total) by mouth 2 (two) times a day. Patient taking differently: Take 200 mg by mouth 2 (two) times a day Notes: Supervising md gladis song md methotrexate 25 mg/mL syringe 03/19/18 -- Gladis Song MD Inject 0.6 mL (15 mg total) under the skin once a week. Patient taking differently: Inject 15 mg under the skin once a week Stopped on 03/12/20 methscopolamine (PAMINE FORTE) 5 mg tablet -- -- Historical ProviderMD montelukast (SINGULAIR) 10 mg tablet 02/16/20 -- Santiago Bueno MD TAKE 1 TABLET BY MOUTH EVERY DAY EVERY NIGHT Patient taking differently: Take 10 mg by mouth nightly nitroglycerin (NITROSTAT) 0.4 mg SL tablet 05/23/18 -- Judah Duggan MD May repeat dose every 5 minutes for up to 3 doses total. PARoxetine (PAXIL) 20 mg tablet 01/03/20 -- Santiago Bueno MD TAKE 1 TABLET BY MOUTH EVERY DAY Patient taking differently: Take 10 mg by mouth every morning potassium chloride ER (Klor-Con M20) 20 mEq CR tablet 01/04/20 -- Judah Duggan MD TAKE 2 TABLETS EVERY MORNING AND 2 TABLETS EVERY EVENING Patient taking differently: Take 20 mEq by mouth 2 (two) times a day TAKE 2 TABLETS EVERY MORNING AND 2 TABLETS EVERY EVENING No current facility-administered medications for this encounter. Current Outpatient Medications: ??? albuterol HFA (PROVENTIL HFA,VENTOLIN HFA,PROAIR HFA) 90 mcg/actuation inhaler ??? atorvastatin (LIPITOR) 80 mg tablet ??? bisoprolol (ZEBETA) 5 mg tablet ??? calcium carbonate (OS-LEELA) 1,500 mg (600 mg of elemental calcium) tablet ??? cholecalciferol (VITAMIN D3) 2,000 unit tablet ??? Eliquis 5 mg tablet ??? fluticasone propionate (FLOVENT HFA) 110 mcg/actuation inhaler ??? folic acid (FOLVITE) 1 mg tablet ??? furosemide (LASIX) 20 mg tablet ??? hydroCHLOROthiazide (HYDRODIURIL) 25 mg tablet ??? hydroxychloroquine (PLAQUENIL) 200 mg tablet ??? methotrexate 25 mg/mL syringe ??? methscopolamine (PAMINE FORTE) 5 mg tablet ??? montelukast (SINGULAIR) 10 mg tablet ??? nitroglycerin (NITROSTAT) 0.4 mg SL tablet ??? PARoxetine (PAXIL) 20 mg tablet ??? potassium chloride ER (Klor-Con M20) 20 mEq CR tablet Social History Tobacco Use Smoking Status Never Smoker Smokeless Tobacco Never Used Substance and Sexual Activity Alcohol Use Yes Comment: 1 drink every two months Substance and Sexual Activity Drug Use No Family History Problem Relation Age of Onset ??? Coronary artery disease Mother Coronary artery disease; ??? Heart attack Mother 61 heart attack; ??? Heart disease Mother Family history of cardiac disorder - (Added by TW Conv) ??? Asthma Father 82 Asthma; /Asthma; ??? Tuberculosis Father Tuberculosis; ??? Asthma Brother Asthma; ??? Diabetes Brother Diabetes mellitus; ??? Asthma Sister Asthma; ??? Diabetes Sister Diabetes mellitus; ??? Anesthesia problems Neg Hx There were no vitals filed for this visit. Relevant diagnostics: ECG(s): 05/29/2018: NSR, rate: 75 bpm, inferior infarct, age undetermined, possible anterior infarct, age undetermined Echocardiogram(s): 06/25/2018: Reason for test: CHF SUMMARY: Normal LV size, wall thickness, and systolic function, LVEF 61%. Normal RV size and systolic function. Impaired LV relaxation. Mild AI, MR, and TR. Est PASP 30 mmHg. Normal IVC. Normal atria. Aortic root 3.4 cm. Stress test(s): N/A Cardiac catheterization(s): 05/26/2018: - Diagnostic Impression relatively mild coronary artery disease 20-30% narrowing in the circumflex and right coronary artery with markedly elevated LVEDP ??- Therapeutic Recommendations the patient presents with symptoms of chest pain and shortness of breath. Her for coronary artery disease is relatively mild. Her symptoms are secondary to heart failure with preserved ejection fraction. She will be started on a diuretic. PFT(s): N/A Vascular studies: Carotid Duplex: 04/25/2015: Impression: Less than 50% stenosis in the bilateral internal carotid arteries. Flow is antegrade in the bilateral vertebral arteries. 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 INR: No results found for requested labs within last 720 hours. APTT: No results found for requested labs within last 720 hours. Hgb A1C: No results found for requested labs within last 720 hours. CBC RBC: No results found for requested labs within last 720 hours. RDW: No results found for requested labs within last 720 hours. MCHC: No results found for requested labs within last 720 hours. MCH: No results found for requested labs within last 720 hours. MCV: No results found for requested labs within last 720 hours. Hct: No results found for requested labs within last 720 hours. Hgb: No results found for requested labs within last 720 hours. WBC: No results found for requested labs within last 720 hours. MPV: No results found for requested labs within last 720 hours. Platelets: No results found for requested labs within last 720 hours. RDW CV: No results found for requested labs within last 720 hours. RDW Sd: No results found for requested labs within last 720 hours. BMP Glucose: No results found for requested labs within last 720 hours. Calcium: No results found for requested labs within last 720 hours. Sodium: No results found for requested labs within last 720 hours. Potassium: No results found for requested labs within last 720 hours. CO2: No results found for requested labs within last 720 hours. Chloride: No results found for requested labs within last 720 hours. BUN: No results found for requested labs within last 720 hours. Creatinine: No results found for requested labs within last 720 hours. Rodolfo index score: 100 * Roc Salmon MD - 03/28/2020 6:40 AM CDT I have reviewed the H&P, examined the patient, and endorse the findings as written. Plan of Care : Based on the above findings, I consider Chio Orantes to be an acceptable risk for :Procedure(s): RELEASE TRIGGER FINGER - THUMB INJECTION STEROID - FINGER - THUMB Cosigned by Lucrecia Gallegos MD at 03/30/2020 7:16 AM CDT Source Note - Lucrecia Gallegos MD - 03/03/2020 11:00 AM CDT CHIEF COMPLAINT: 1. 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 She has a complicated past medical and past surgical history which includes lupus (MTX, ?remicaide, prednisone) treated by Dr. Song and strokes, for which she is now on Eliquis. 2. 10/15/2016 Release of right long, ring, and small finger triggers (El) complicated by edema andstiffness (resolved) 3. Bilateral thumb (R>L) and left long finger (minimally symptomatic) triggering, most severe symptoms and right thumb. History of Present Illness: Chio Orantes is a 69 y.o. female who is right hand dominant who presents with bilateral thumb and left long finger triggering. She 1st noticed symptoms in her right thumb about a month ago, at 1st she just noticed pain but now has locking of the thumb in flexion. This is also associated with radiating pain into the thumb distally and into the CMC. She has similar but more mild symptoms in the left thumb and left long finger. She endorses occasional paresthesias, with all digits affected equally, with certain positions of her arm, including while sleeping. She denies any baseline numbness or paresthesias. She previously underwent simultaneous release of right long, ring, and small finger trigger fingersin 2016. She did have some difficulty with edema in the context of her chronic steroid and immunosuppressive use during her prior postoperative period. However at present she only has good memories and felt that that really helped her symptoms and therefore wants to proceed with surgery. MEDS: She is on and the infusion for her lupus Most relevant medications: Methotrexate injection, prednisone, hydroxychloroquine, Eliquis, monthlyBenlysta infusion all for lupus. has a current medication list which includes the following prescription(s): albuterol hfa (PROVENTIL HFA,VENTOLIN HFA,PROAIR HFA), atorvastatin (LIPITOR), bd integra syringe, bd luer-francois syringe, bisoprolol (ZEBETA), calcium carbonate (OS-LEELA), vitamin d3, dexlansoprazole (DEXILANT), eliquis, fluticasone propionate (FLOVENT HFA), folic acid (FOLVITE), furosemide (LASIX), hydrochlorothiazide (HYDRODIURIL), hydroxychloroquine (PLAQUENIL), leflunomide (ARAVA), methotrexate, methylprednisolone (MEDROL DOSEPACK), metoprolol xl (TOPROL-XL), montelukast (SINGULAIR), nitroglycerin (NITROSTAT), omeprazole (PRILOSEC), pantoprazole dr (PROTONIX), paroxetine (PAXIL), potassium chloride er (KLOR-CON M20), and syringe with needle. ALLERGIES: Allergies Allergen Reactions ??? Levofloxacin Nausea only and Headache Reaction: NAUSEA, , , Reaction: headaches, , Reaction: Nausea, ??? Nitrofurantoin ??? Sulfa (Sulfonamide Antibiotics) Swelling Reaction: Swelling, ??? Latex Other (See comments) Reaction: RASH;, PMH/PSH: Most relevant PMH/PSH: Longstanding systemic lupus complicated by a skin rashes, inflammatory arthritis, and TIA/stroke. She also has shortness of breath with exertion, and sleep apnea with home CPAP. She takes Paxil for depression. Past Medical History: Diagnosis Date ??? Asthma ??? Cerebrovascular accident (CVA) (CMS/HCC) Stroke ??? Heart murmur ??? 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 Hyperlipidemia ??? Hypertension ??? Lupus (CMS/HCC) Past Surgical History: Procedure Laterality Date ??? APPENDECTOMY ??? BILATERAL OOPHORECTOMY ??? SECTION ??? HYSTERECTOMY SH: Occupation/Hand specific hobbies/Social Situation: She lives at home with her . 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 She enjoys doing crafts and is significantly limited in this. She is also limited in everyday tasks including opening jars and bottles. reports that she has never smoked. She has never used smokeless tobacco. She reports current alcohol use. She reports that she does not use drugs. FH: family history includes Asthma in her brother and sister; Asthma (age of onset: 82) in her father; Coronary artery disease in her mother; Diabetes in her brother and sister; Heart attack (age of onset: 61) in her mother; Heart disease in her mother; Tuberculosis in her father. REVIEW OF SYSTEMS: Pertinent Positives and/or Negatives (if relevant): Lupus complicated by arthritis, stroke, and rash as per HPI. Prior right hand trigger fingers as per HPI. A comprehensive review of systems was completed by the patient and reviewed, signed, and scanned into the patient's chart. I asked about all of the following and they are negative unless noted in the pertinent positives section. CARDIAC: Heart murmur/valve disease. Heart attack. Irregular heart beat/palpitations. VASC: High blood pressure/hypertension. Low blood pressure. NEURO: Stroke history. HEME: Anemia/jose l cell.Bleeding problems. DVT/PE. LUNG: Asthma, bronchitis, chronic lung disease. Pneumonia. Sleep apnea/CPAP use. Frequent productive cough. Abnormal chest xray. ID: hepatitis B or C, HIV/AIDS, TB. RENAL: renal failure or dialysis. Kidney stones. Frequent UTI or urinary problems. NEURO2: seizure or blackout. Frequent headache. Weakness in arm or leg. ENDO: DM, thyroid problems. IMMUNE: autoimmune or collagen vascular disorders. GI: Hiatal hernia, acid reflux, ulcers, jaundice, diarrhea, constipation, difficulty swallowing. MSK: difficulty walking, back pain/problems, joint replacement, arthritis SKIN: rashes/tiching/sores, other skin lesions. PSYCH: Depression / anxiety / panic disorder. Anorexia / bulimia / eating disorder. Violent behavior history. ENT/OPTHO: difficulty hearing/speaking. Cataracts/Glaucoma. WOMEN ONLY: history of reproductive disease or cancer. No current . PHYSICAL EXAM: Height of 5' 0 feet/inches. Weight of 144 lbs. Constitutional: well developed, well nourished Eyes: non-icteric ENT: mucous membranes are moist RESP: breathing easily with no audible wheezing NEURO: alert, orientated and answers questions appropriately PSYCH: not overly anxious or depressed MSK: Right hand with well-healed trigger finger scars for the long, ring, small fingers. Significant tenderness to palpation over the thenar eminence, with palpable snap during thumb extension. Thereis a bit of crepitus and synovitis over the thumb CMC. Left hand with tenderness to palpation over the thenar eminence, tenderness to palpation over the long finger MCP, but no locking in the left hand. ASSESSMENT/PLAN: Chio Orantes has symptomatic triggering of her right thumb, left thumb and long finger. Her right thumb is causing most severe symptoms. Given her good response to trigger finger surgery in the past, she is interested in proceeding with surgical management of her right thumb. Given the severity ofher symptoms and chronic systemic steroids, steroid injection alone is unlikely to provide symptom relief the right thumb. While we are only able to offer operative treatment of 1 side at a time, we are able to offer steroid injection into the left thumb when she is off of her Eliquis for this right thumb surgery to palliate her symptoms at the time of surgery. I would recommend right thumb trigger finger release, left thumb corticosteroid injection. We discussed surgery including risks, complications, and treatment options. Questions were answeredand Chio Orantes gave permission for the procedure They will go to [facility]. Post-Operative Follow Up: 10 days with my METAL MOULDER for wound check I will put her in a big bulky splint because of her history of profound edema as well as her immunosuppression but we will certainly need to get her moving with therapy at 7 days postop. 3 weeks with me for suture removal Nicholas to set up for follow up: Yes Work: Retired, light duty at home only with sutures in place. I have seen and examined the patient on the date of the clinic visit unless otherwise indicated andagree with the findings and assessment documented by the resident. I have personally edited the noted and/or provided clarification. Lucrecia Gallegos MD [employer] Division of Plastic Surgery (Hand, Reconstructive and Peripheral Nerve Surgery) Please note this was created using MModal and may have some back hanger variance. documented in this encounter Miscellaneous Notes * Brief Op Note - Roc Salmon MD - 03/28/2020 7:43 AM CDT Operative Progress Note Surgical Team: Surgeon(s) and Role: * Lucrecia Gallegos MD - Primary * Roc Salmon MD - Resident - Assisting Anesthesiologist: Nj Garcia MD DDS PORTER HEAD: Leighton Cosme CRNA Torpedo Worker: Mera Mccauley RN; Sue Hurst RN Scrub: Sheyla Thomson RN DATE OF SURGERY : 03/28/2020 Preoperative Diagnosis: Pre-op Diagnosis * Trigger finger of right thumb [M65.311] Postoperative Diagnosis: Post-op Diagnosis * Trigger finger of right thumb [M65.311] Procedure(s): Procedure(s) (LRB): RELEASE TRIGGER FINGER - THUMB (Right) INJECTION STEROID - FINGER - THUMB (Left) Operative Findings: Release of A1 luis alberto with free excursion of FPL after Estimated Blood Loss: No blood loss documented. Intraoperative Fluids: Please see anesthesia note Specimens: No specimen collected in procedure Implants: Nothing was implanted during the procedure Blood/Blood Products Transfused: 0 mls Complications: None Condition on Discharge from the operating room was stable Roc Salmon MD Date: 03/28/2020 Time: 10:20 AM TEACHING ATTESTATION : I was present and directly participated in the entire procedure (including opening and closing). Cosigned by Lucrecia Gallegos MD at 03/30/2020 7:16 AM CDT * Op Note - Lucrecia Gallegos MD - 03/28/2020 12:[address] Lucrecia Gallegos. Psych Social Worker Dr. Roc Salmon. Preoperative Diagnosis Bilateral thumb triggering. Postoperative Diagnosis Bilateral thumb triggering. Procedure Right thumb A1 luis alberto release and left thumb flexor tendon sheath injection of dexamethasone 3.2 mg. Anesthesia Kinza block with MAC. Indication for Procedure This is a woman with a history of several comorbidities. She now presents with bilateral thumb triggering which is recalcitrant and would like to proceed with surgery. She understands we will do eachside separately but she may have a steroid injection on the contralateral side. All of her questions were answered. She gave her permission. Operative Findings She had obvious triggering bilaterally, good release on the right after surgery. Description of Procedure Patient was brought back to the operating room. DVT prophylaxis with SCDs and early ambulation. Shewill restart her Xarelto in the evening today. We began with antibiotics and no further are required. She got a steroid injection of the left thumb. After prepping with an alcohol pad, I injected 3.2 mg of dexamethasone and 0.5% Marcaine and applied a Band-Aid with good injection into the left thumb flexor tendon sheath. On the right side, the anesthesia team exsanguinated, elevated the tourniquet and administered the Kinza block. The IV was removed, pressure was held and we did standard sterile prep and drape. She has good anesthetic and we made a longitudinal incision at the base of the thumb. We dissected down exposing the flexor tendon sheath and making sure to avoid the neurovascular bundle. We did a longitudinal incision and released the luis alberto and then spread proximally and distally to make sure it was entirely released. We then ranged the thumb and there was no further triggering. Shedid have some adhesions and synovitis right at the site of the luis alberto, but had good gliding after release. We injected 0.5% Marcaine. We irrigated. We closed with 3-0 Prolene sutures, placed antibiotic ointment, 4 x 4, Webril and a thumb spica splint and Slick bandage and she was taken to recovery room in satisfactory condition. The tourniquet was let down in approximately 30 minutes. Counts Correct. Specimens None. Drains None. Patient Condition Satisfactory. Lucrecia Gallegos was present and in the room for the entire case. Plan on this patient is she may leave the thumb spica splint on for about 10 days to prevent bleeding given the fragility of her skin and the need for Xarelto. She may use the left side for light activity and remove the Band-Aid in 24 to 48 hours with no soaks. I will see her at 3 weeks postsurgery for suture removal. Job ID/VF Job ID: [id number] * Pre-Procedure Instructions - Jessy Will, FELICIA - 03/21/2020 5:11 PM CDT Center for Preoperative Assessment and Planning CPAP Clinic Location: [facility] The night before your surgery: * Do not eat or drink anything after midnight. This includes candy, mint, gums, chewable antacids (TUMS, Rolaids) and cough drops * Do not smoke after midnight the night before surgery. It is best to stop smoking now to improve your health. The morning of your surgery: * You may brush your teeth and rinse your mouth out. * Do not glue your dentures. * Do not wear jewelry, body piercings, makeup, hairpins, false eyelashes or contact lenses to the hospital. * Leave any valuables at home or with your family. You may want to bring a credit card if you want to use our Mobile Pharm[facility] for your discharge medications. If you have an implantable device with a remote, bring the remote with you on the day of surgery. Outpatient Surgery: * You must have a responsible adult drive you home and stay with you for 24 hours after your surgery * You cannot be alone at home or in a hotel * Please call your surgeon's office if you do not have someone to drive you home and/or stay with you after surgery * Please bring any items you may need to spend the night in the hospital. Sometimes patients need to be cared for in the hospital overnight. If you have Sleep Apnea (AZUL): * Bring your CPAP/BiPAP/VPAP machine to the hospital the day of your surgery * For a few days after your surgery, you will need to wear your CPAP/ BiPAP/VPAP machine any time your are sleeping. This includes when you take a nap. Instructions For Your Medications: Pre-Surgery Instructions: Medication Instructions ??? albuterol HFA (PROVENTIL HFA,VENTOLIN HFA,PROAIR HFA) 90 mcg/actuation inhaler Take on day of surgery if needed ??? atorvastatin (LIPITOR) 80 mg tablet Take as normal the night before surgery ??? bisoprolol (ZEBETA) 5 mg tablet Take morning of surgery ??? calcium carbonate (OS-LEELA) 1,500 mg (600 mg of elemental calcium) tablet Don't take on day of surgery ??? cholecalciferol (VITAMIN D3) 2,000 unit tablet Don't take on day of surgery ??? Eliquis 5 mg tablet Per surgeon's instructions ??? fluticasone propionate (FLOVENT HFA) 110 mcg/actuation inhaler Take on day of surgery if needed ??? folic acid (FOLVITE) 1 mg tablet Don't take on day of surgery ??? furosemide (LASIX) 20 mg tablet Don't take on day of surgery ??? hydroCHLOROthiazide (HYDRODIURIL) 25 mg tablet Don't take on day of surgery ??? hydroxychloroquine (PLAQUENIL) 200 mg tablet Per prescribing provider instructions ??? methotrexate 25 mg/mL syringe Per prescribing provider instructions ??? methscopolamine (PAMINE FORTE) 5 mg tablet Don't take on day of surgery ??? montelukast (SINGULAIR) 10 mg tablet Don't take on day of surgery ??? nitroglycerin (NITROSTAT) 0.4 mg SL tablet Take on day of surgery if needed ??? PARoxetine (PAXIL) 20 mg tablet Take morning of surgery ??? potassium chloride ER (Klor-Con M20) 20 mEq CR tablet Don't take on day of surgery You WILL NEED TO STOP these medications prior to surgery. Your surgeon will tell you WHEN TO STOP taking them: - Eliquis General Instructions For Medications: ?? If prescribed a non-steroidal anti-inflammatory such as Celebrex, Meloxicam, or Naproxen by yoursurgeon, take as prescribed prior to surgery and discontinue all other non-steroidal anti-inflammatory medications such as excedrin, motrin, advil, ibuprofen, naproxen, aleve, meloxicam, celebrex, and celecoxib 5 days prior to surgery ?? If undergoing a neurological or spine procedure, stop all of these medications 5 days prior to your surgery: excedrin, motrin, advil, ibuprofen, aleve, naproxen, meloxicam, celebrex, celecoxib. ?? Stop all of these medications 7-14 days prior to your surgery: Vitamin E, Herbal medicines, DietPills ?? If you use inhalers, please bring them with you on the day of your procedure. ?? If you have pain, you may take tylenol (acetaminophen). Do not take more than 6 tablets or 3000 mg (3 g) within a 24 period. Call your surgeon and the CPAP clinic if any of the following happens before surgery: ?? Any changes in your health ?? You have a fever ?? You have any signs of an infection (chest, urinary tract or tooth) ?? You have been to the Emergency Room or were in the hospital ?? You have started taking any new medications ?? You have questions about a bowel prep or special diet before surgery * Perioperative Nursing Note - Ying Gastelum RN - 03/18/2020 4:39 PM CDT Center for Preoperative Assessment and Planning Perioperative Nursing Note Telephone Preoperative Evaluation ([facility]) - TELEPHONE ONLY, NO PHYSICAL EXAM Date: 03/18/20 Vitals: 03/18/20 1615 Weight: 65.3 kg (144 lb) Height: 147.3 cm (4' 10 ) CHEST CIRCUMFERENCE: N/A Social History Tobacco Use Smoking Status Never Smoker Smokeless Tobacco Never Used Substance and Sexual Activity Alcohol Use Yes Comment: 1 drink every two months Substance and Sexual Activity Drug Use No Outpatient Medications Marked as Taking for the 03/28/20 encounter (Hospital Encounter) with Lucrecia Gallegos MD Medication Sig Dispense Refill ??? albuterol HFA (PROVENTIL HFA,VENTOLIN HFA,PROAIR HFA) 90 mcg/actuation inhaler Inhale 90 puffs every 4 (four) hours as needed for wheezing or shortness of breath (Patient taking differently: Inhale 90 puffs every 4 (four) hours as needed for wheezing or shortness of breath ) 1 Inhaler 2 ??? atorvastatin (LIPITOR) 80 mg tablet TAKE 1 TABLET BY MOUTH EVERY DAY (Patient taking differently: Take 80 mg by mouth nightly ) 90 tablet 3 ??? bisoprolol (ZEBETA) 5 mg tablet Take 1 tablet (5 mg total) by mouth daily (Patient taking differently: Take 5 mg by mouth every morning ) 30 tablet 6 ??? calcium carbonate (OS-LEELA) 1,500 mg (600 mg of elemental calcium) tablet Take 2,000 mg of elemental calcium by mouth every morning ??? cholecalciferol (VITAMIN D3) 2,000 unit tablet take 1 by Oral route every day (Patient taking differently: Take by mouth every morning ) 0 0 ??? Eliquis 5 mg tablet TAKE 1 TABLET BY MOUTH TWICE A DAY (Patient taking differently: Take 5 mg by mouth 2 (two) times a day ) 60 tablet 4 ??? fluticasone propionate (FLOVENT HFA) 110 mcg/actuation inhaler Inhale 2 puffs 2 (two) times a day Rinse mouth with water after use. Do not swallow. (Patient taking differently: Inhale 2 puffs as needed Rinse mouth with water after use. Do not swallow.) 2 Inhaler 2 ??? folic acid (FOLVITE) 1 mg tablet Take 1 tablet (1 mg total) by mouth daily. Take one tab daily (Patient taking differently: Take 1 mg by mouth every morning Take one tab daily) 90 tablet 0 ??? furosemide (LASIX) 20 mg tablet TAKE 1 TABLET BY MOUTH EVERY DAY (Patient taking differently: Take 20 mg by mouth every morning ) 90 tablet 3 ??? hydroCHLOROthiazide (HYDRODIURIL) 25 mg tablet TAKE 1 TABLET BY MOUTH EVERY DAY (Patient takingdifferently: Take 25 mg by mouth every morning ) 90 tablet 3 ??? hydroxychloroquine (PLAQUENIL) 200 mg tablet Take 1 tablet (200 mg total) by mouth 2 (two) times a day. (Patient taking differently: Take 200 mg by mouth 2 (two) times a day ) 180 tablet 0 ??? methotrexate 25 mg/mL syringe Inject 0.6 mL (15 mg total) under the skin once a week. (Patient taking differently: Inject 15 mg under the skin once a week Stopped on 03/12/20) 8 mL 0 ??? methscopolamine (PAMINE FORTE) 5 mg tablet Take 5 mg by mouth every morning ??? montelukast (SINGULAIR) 10 mg tablet TAKE 1 TABLET BY MOUTH EVERY DAY EVERY NIGHT (Patient taking differently: Take 10 mg by mouth nightly ) 90 tablet 1 ??? nitroglycerin (NITROSTAT) 0.4 mg SL tablet May repeat dose every 5 minutes for up to 3 doses total. 25 tablet 3 ??? PARoxetine (PAXIL) 20 mg tablet TAKE 1 TABLET BY MOUTH EVERY DAY (Patient taking differently: Take 10 mg by mouth every morning ) 90 tablet 1 ??? potassium chloride ER (Klor-Con M20) 20 mEq CR tablet TAKE 2 TABLETS EVERY MORNING AND 2 TABLETS EVERY EVENING (Patient taking differently: Take 20 mEq by mouth 2 (two) times a day TAKE 2 TABLETSEVERY MORNING AND 2 TABLETS EVERY EVENING) 360 tablet 3 Implants No active implants to display in this view. SKIN Piercings Remaining: Yes Wound (LDAs) Type of Wound (LDA): (denies) SCREENINGS Banks Fall Risk Score (Retired): 15 Rodolfo index score: 100 Is someone currently physically or emotionally hurting you or your family?: Denies PATIENT CARE PLANNING Advance Directives (For Healthcare) Advance Directive: Patient does not have advance directive Communication/Game Manager Needs Communication Needs: Glasses Patient's Preferred Language: Burkinan Does caregiver's language differ from patient's?: No Is an network desktop support specialist needed? 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 Maintain a 6 foot distance from other people (social distancing). Avoid touching your eyes, nose and mouth with unwashed hands. Wash your hands often with soap and water for at least 20 seconds. Use an alcohol- based hand weed eradicator that contains at least 60% alcohol if soap and water are not available. ADDITIONAL COMMENTS/ FOLLOW UP * Pre-Procedure Instructions - Ying Gastelum RN - 03/18/2020 4:37 PM CDT PRE-SURGICAL INSTRUCTIONS ??? General Information ?? Surgery location provided to patient. ?? Arrival time and surgical time will be provided by your surgeon. ?? Wear something clean, loose, comfortable and easy to get in and out of. ?? Leave your valuables and any jewelry at home (No metal or piercings are allowed in the operatingroom) ?? Bring your insurance card, a photo ID (like a Preschool Teacher's license) and a method of payment for any insurance copay, deductible, or copay for discharge medications. ?? Bring a complete, up to date list of all of your medications including any over the counter medications or supplements you may take. ? How To Prepare Your Skin For Surgery Antiseptic/antibacterial soap will decrease the amount of germs on your skin. It is important to minimize the risk of getting an infection by doing the following: ?? Change all the linens on the bed the night before surgery so you are sleeping on clean fresh sheets and pillowcases. ?? Shower the evening before and the morning of surgery with an antibacterial soap such as Dial or a surgical soap known as chlorhexidine (Hibiclens). You can purchase this soap at any pharmacy or department store or come by our CPAP clinic and we will give it to you free of charge. Do not use thissoap on your face or hair. ?? Wash your hair and face with your regular shampoo (no conditioners) and facial cleanser. ?? Take a shower using ?? cup (2 oz.) of antiseptic soap applied to a clean fresh washcloth. Scrub your entire body from the neck down. If you can't reach the surgical site, such as your back, have someone help you with your shower. Step out of the water and leave soap on your skin for 2 minutes prior to rinsing off. Rinse thoroughly and dry yourself off with a clean fresh dry towel. ?? Wear clean clothes or pajamas to sleep in and on morning of surgery. ?? Nothing extra on the skin or hair such as deodorant, makeup, hair products, lotions, powders, Vaseline, creams, or perfumes the evening before and the morning of surgery. ?? The morning of the surgery repeat the shower process with the remaining ?? cup (2 oz.) of surgical scrub using another fresh wash cloth and towel. ?? Do not shave the morning of surgery. ?? REMEMBER no deodorant, make-up, lotions, powders, creams, Vaseline, oils, conditioners or hair products the morning of the surgery. COVID TESTING PLAN COVID Test set up [facility] on 03/24/20. In-basket message sent to [employer]. Patient aware of plan. If you need to reschedule your COVID test to a different location or if your surgery gets rescheduled, you MUST call [phone] Saturday-Saturday 8am-4:30pm to get your COVID testing rescheduled or your lab order will not be available at Testing Sites. COVID Testing is only valid for up to 96 hours prior to surgery date, unless otherwise specified. We recommend you Self-Isolate after COVID Testing: Stay at home, if possible until your surgery date. Maintain a 6 foot distance from other people (social distancing). Avoid touching your eyes, nose and mouth with unwashed hands. Wash your hands often with soap and water for at least 20 seconds. Use an alcohol- based hand weed eradicator that contains at least 60% alcohol if soap and water are not available. All visitors/patients are being asked to wear a clean mask when entering the hospital. COVID 19 Updates & Visitor Policy: Please access [email or web address] for the most updated information. Surgery Times: ??? [facility] if your surgeon's office has not notified you of your surgery time by NOON THE DAY BEFORE your surgery, please call [phone] and ask for your surgeon's office Dr. Gallegos. documented in this encounter Plan of Treatment Not on file documented as of this encounter Procedures Procedure Name Priority Date/Time Associated Diagnosis Comments INJECTION STEROID - FINGER/HAND/WRIST 03/28/2020 7:24 AM CDT Trigger finger of right thumb Case Notes 03/25/2020 - Has other case in POD 2 Special Needs Position Supine RELEASE TRIGGER FINGER 03/28/2020 7:24 AM CDT Trigger finger of right thumb Case Notes 03/25/2020 - Has other case in POD 2 Special Needs Position Supine documented in this encounter Visit Diagnoses Diagnosis Trigger finger of right thumb- Primary Trigger finger of right thumb documented in this encounter Admitting Diagnoses Diagnosis Trigger finger of right thumb documented in this encounter Administered Medications Inactive Administered Medications - up to 3 most recent administrations Medication Order MAR Action Action Date Dose Rate Site bupivacaine (MARCAINE) 0.5 % (5 mg/mL) preservative free injection As needed, Starting on Sat03/28/20 at 0753, Intra-Op Given 03/28/2020 7:53 AM CDT 10 mL dexAMETHasone (DECADRON) 4 mg/mL injection Administer over 2 Minutes, As needed, Starting on Sat03/28/20 at 0754, Intra-Op Given 03/28/2020 7:54 AM CDT 3.2 mg Lactated Ringer's (LR) infusion 30 mL/hr, intravenous, Continuous, Starting on Sat03/28/20 at 0700, Pre-Op Rate/Dose Verify 03/28/2020 7:23 AM CDT New Bag 03/28/2020 7:02 AM CDT 30 mL/hr 30 mL/hr sodium chloride 0.9 % irrigation As needed, Starting on Sat03/28/20 at 0753, Intra-Op Given 03/28/2020 7:53 AM CDT 1,000 mL documented in this encounter Discontinued Medications Medication Sig Discontinue Reason Start Date End Da te dexlansoprazole (DEXILANT) 60 mg capsule Take 1 capsule (60 mg total) by mouth daily Error 09/03/2019 03/18/2020 leflunomide (ARAVA) 20 mg tablet Take 20 mg by mouth daily Error 04/03/2019 03/18/2020 methylPREDNISolone (MEDROL DOSEPACK) 4 mg Dosepack Take as directed on package. Error 03/31/2019 03/18/2020 metoprolol XL (TOPROL-XL) 50 mg extended release tablet metoprolol succinate ER 50 mg tablet,extended release 24 hr Error 03/18/2020 omeprazole (PriLOSEC) 20 mg capsule omeprazole 20 mg capsule,delayed release Error 03/18/[address] (PROTONIX) 40 mg EC tablet TAKE 1 TABLET BY MOUTH EVERY DAY Error 09/28/2019 03/18/2020 syringe with needle 1 mL 28 gauge x 1/2 syringe Use to inject 0.6ml of methotrexate once weekly Error 03/19/2018 03/18/2020 BD Integra Syringe 3 mL 25 gauge x 1 syringe USE DIRECTED FOR 90 DAYS Error 02/19/2020 03/18/2020 BD Luer-Francois Syringe 3 mL 22 gauge x 1 syringe USE ONCE A MONTH DIRECTED WITH METHOTREXATE Error 11/25/2019 03/18/2020 documented as of this encounter Historical Medications * This list may reflect changes made after this encounter. methscopolamine (PAMINE FORTE) 5 mg tabletIndications :IBS Take 5 mg by mouth every morning 01/18/2021 added in this encounter Active and Recently Administered Medications Times are shown in CDT. Scheduled Medication Order 03/26/2020 03/27/2020 03/28/2020 ceFAZolin (ANCEF) 2,000 mg/20 mL in sterile water (premix) 2,000 mg (COMPLETED) 2,000 mg, intravenous, at 400 mL/hr, Administer over 3 Minutes, Once, On Sat03/28/20 at 0700, For 1 dose, Pre-Op, Administer within 60 minutes of incision., Indications: Prophylaxis, Surgical 725 (Given - Provid er: Leighton Cosme, PORTER HEAD) Continuous Medication Order 03/26/2020 03/27/2020 03/28/2020 Lactated Ringer's (LR) infusion 30 mL/hr, intravenous, Continuous, Starting on Sat03/28/20 at 0700, Pre-Op 0702 (New Bag - Prov ider: Archana Purcell RN)07 (Rate/Dose Verify - Provider: Leighton Cosme CRNA)0828 (Stopped - Provider: Kriss Sanz, ROZINA) Lactated Ringer's (LR) infusion 125 mL/hr, intravenous, Continuous, Starting on Sat03/28/20 at 0700, Pre-Op 0700 (Due) Lactated Ringer's (LR) infusion 125 mL/hr, intravenous, Continuous, Starting on Sat03/28/20 at 0900, Phase I PRN Medication Order 03/26/2020 03/27/2020 03/28/2020 acetaminophen (TYLENOL) tablet 1,000 mg 1,000 mg, oral, Once as needed, 2nd line for pain, Starting on Sat03/28/20 at 0819, For 1 dose, Phase I, When able to tolerate PO., Indications: Pain bupivacaine (MARCAINE) 0.5 % (5 mg/mL) preservative free injection (CANCELED) As needed, Starting on Sat03/28/20 at 0753, Intra-Op 0753 (Given - Provid er: Lucrecia Gallegos MD) dexAMETHasone (DECADRON) 4 mg/mL injection (CANCELED) Administer over 2 Minutes, As needed, Starting on Sat03/28/20 at 0754, Intra-Op 0754 (Given - Provid er: Lucrecia Gallegos MD - Comment: mixed with 0.2ml of 0.5% Marcaine) fentaNYL (SUBLIMAZE) preservative free injection 25 mcg 25 mcg, intravenous, Every 10 min PRN, 1st line for pain, Starting on Sat03/28/20 at 0819, Phase I, Switch to 2nd line analgesic order if pain is uncontrolled or increasing after 2 doses. Notify Anesthesiologist if total PACU dose reaches 100 mcg and pain score 5/10 or more., Indications: Pain fentaNYL (SUBLIMAZE) preservative free injection 50 mcg 50 mcg, intravenous, Once as needed, uncontrolled pain on PACU admission, Starting on Sat03/28/20 at 0819, For 1 dose, Phase I, Then proceed to PACU 1st line analgesic., Indications: Pain fentaNYL (SUBLIMAZE) preservative free injection 50 mcg 50 mcg, intravenous, Every 10 min PRN, 2nd line for pain, Starting on Sat03/28/20 at 0819, Phase I, May administer 10 mintes after 2nd dose of 1st line analgesic agent for uncontrolled or increasing pain. Revert to 1st line dose if POSS of 3. Notify Anesthesiologist if total PACU dose reaches 100 mcg and pain score 5/10 or more., Indications: Pain meperidine (DEMEROL) preservative free injection 12.5 mg 12.5 mg, intravenous, Every 10 min PRN, shivering, Starting on Sat03/28/20 at 0819, For 2 doses, Phase I, Max cumulative dose 25 mg., Indications: Shivering sodium chloride 0.9 % irrigation (CANCELED) As needed, Starting on Sat03/28/20 at 0753, Intra-Op 0753 (Given - Provid er: Lucrecia Gallegos MD) documented in this encounter Orders Medications Ordered That Tahir ht Not Have Been Administered Count Last Ordered Date First Ordered Date acetaminophen (TYLENOL) tablet 1,000 mg 1 0 03/28/2020 ceFAZolin (ANCEF) 2,000 mg/2 0 mL in sterile water (premix) 2,000 mg 1 03/28/2020 fentaNYL (SUBLIMAZE) preserv ative free injection 25 mcg 1 03/28/2020 fentaNYL (SUBLIMAZE) preserv ative free injection 50 mcg 2 03/28/2020 Lactated Ringer's (LR) infusion 2 0 meperidine (DEMEROL) preserv ative free injection 12.5 mg 1 03/28/2020 sodium chloride 0.9% flush 0.5-20 mL 2 03/03 Diet Count Last Ordered Date First Orde red Date ADULT DISCHARGE DIET 1 03/28/2020 Nursing Count Last Ordered Date First Orde red Date DISCHARGE ACTIVITY 1 03/28/2020 DISCHARGE DRESSING 2 03/28/2020 DISCHARGE INSTRUCTIONS 1 03/28/2020 OTHER FOLLOW UP 1 03/28/2020 WEIGHT RESTRICTIONS 1 03/28/2020 documented in this encounter Care Teams Computed Tomography Scanner Operator Relationship Specialty Start Date End Date Santiago Bueno MD [address] [place] [address] PCP - General 11/30/16 06/09/20 [place] [address] [facility] [address] [place] [address] Rheumatology 07/15/17 documented as of this encounter
--- OUTSIDE RECORDS SUMMARY | 2024-08-29 10:19 | XMS_ITS | Encounter Summary ---
Author Organization [facility] Address [address] [place] [address] Phone Care Team Providers Care Plastics And Composites Inspector Name Role Phone Santiago Bueno MD Primary Care Provider Gladis Song MD Unavailable Reason for Visit * Consultation (Routine) - Closed Specialty Diagnoses / Procedures Referred By Contac t Referred To Contact Plastic Surgery Diagnoses Bilateral hand pain Santiago Bueno MD [address] [place] [address] Phone: tel: fax: Lucrecia Gallegos MD [address] [place] [address] Phone: tel: fax: Referral ID Status Reason Start Date Expiration Date V isits Requested Visits Authorized [id number] Closed Specialty Services Required 02/22/2020 09/02/2021 99 99 Encounter Details Date Type Department Care Team (Late st Contact Info) Description 04/06/2020 9:00 AM CDT Office Visit [facility] Surgery [address] [facility] 6[address] [place] [address] [place] [address] Lynn Ventura NP [address] [place] [address] Bilateral hand pain (Primary Dx) Social History Tobacco Use Types [...] on file 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 ??She also enjoys crocheting. ??She has a complicated past medical and past surgical history which ??includes lupus (MTX, ?remicaide, prednisone) treated by Dr. Song and strokes, for which she is now on Eliquis. 2. 10/15/2016 Release of right long, ring, and small finger triggers (Gallegos) complicated by edema andstiffness (resolved) 3. Bilateral thumb (R>L) and left long finger (minimally symptomatic) triggering, most severe symptoms and right thumb. 4. 03/28/20 right thumb A1 luis alberto release, left thumb steroid injection INTERIM HISTORY She notes that she feels as if the triggering to her bilateral thumbs has certainly improved. She notes a bit of itching to the right thumb. Her left long finger is giving her issues in terms of triggering and overall her joint pain is worse when she is off of her rheumatological medications. The past medical history, surgical history, medications, and allergies were reviewed and are up to date. FOCUSED PHYSICAL EXAM The patient demonstrates a completely healed incision to the right volar thumb. Wound edges are well approximated without evidence of infection. Range of motion is reasonable. I am unable to elicit any triggering to her bilateral thumbs in range of motion to her left thumb is also quite good. She demonstrates mild catching to the left long finger. Sensation and perfusion are intact. ASSESSMENT/PLAN Chio Orantes is doing well. Her right thumb is completely healed and the sutures are appearing to be a bit ingrown. I did remove these today as I worried leaving them in would be quite difficult to get them removed in another week. After removing the sutures the incision continue to look nicely healed however I did apply steri strips given she is just 10 days out from surgery. I will send her next door to begin some range of motion and scar management with the guidance of our hand therapist. We discussed possibly doing a steroid injection to the left long finger in the future although she would like to just get through her most recent procedures and see how she was doing at that point. She will follow up with Dr. Gallegos next week and will remain off of her rheumatological medications until that appointment. She was agreeable to this plan and all questions were answered. documented in this encounter Plan of Treatment Not on file documented as of this encounter Visit Diagnoses Diagnosis Bilateral hand pain- Primary documented in this encounter Care Teams Plastics And Composites Inspector Relationship Specialty Start Date End Date Santiago Bueno MD [address] [facility] [address] [place] [address] PCP - General 11/30/16 06/09/20 [place] [address] [facility] [address] [place] [address] Rheumatology 07/15/17 documented as of this encounter
--- OUTSIDE RECORDS SUMMARY | 2024-08-29 10:19 | XMS_ITS | Encounter Summary ---
Author Organization [facility] Address [address] [place] [address] Care Team Providers Care Pre Sales Systems Engineer Name Role Phone Gladis Song MD Unavailable Santiago Bueno MD Primary Care Provider [phone] Reason for Referral * Cardiology (Routine) - Closed Specialty Diagnoses / Procedures Referred By Contac t Referred To Contact Diagnoses Paroxysmal atrial fibrillation (CMS/HCC) (HCC) Procedures Transthoracic Echo Complete W Doppler/CF Judah Duggan MD Phone: tel: fax: [address] [phone] Referral ID Status Reason Start Date Expiration Date Visits Re quested Visits Authorized [id number] Closed 11/29/2020 12/29/2021 1 1 Reason for Visit * Cardiology (Routine) - Closed Specialty Diagnoses / Procedures Referred By Contac t Referred To Contact Diagnoses Paroxysmal atrial fibrillation (CMS/HCC) (HCC) Procedures Transthoracic Echo Complete W Doppler/CF Judah Duggan MD Phone: tel: fax: [address] [phone] Referral ID Status Reason Start Date Expiration Date Visits Re quested Visits Authorized [id number] Closed 11/29/2020 12/29/2021 1 1 Encounter Details Date Type Department Care Team (Latest Contact Info) Description 01/18/2021 7:45 AM CDT - 01/18/2021 11:59 PM CDT Hospital Encounter 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 Gender Identity Not on file Sexual Orientation [...] MOUTH EVERY DAY 90 tablet 3 06/01/[address] (PROTONIX) 40 mg EC tablet Take 1 tablet (40 mg total) by mouth 2 (two) times a day 12/08/2020 abatacept/maltose (ORENCIA, WITH MALTOSE, IV) Infuse into a venous catheter every 30 (thirty) days 4 alosetron (LOTRONEX) 1 mg tablet Take 1 mg by mouth as needed 01/10/2021 4 atorvastatin (LIPITOR) 80 mg tablet TAKE 1 TABLET BY MOUTH EVERY DAY 90 tablet 3 08/31/2020 1 azelastine (ASTELIN) 137 mcg (0.1 %) nasal spray INSTILL 1 SPRAY INTO EACH NOSTRIL DIRECTED 2 TIMES PER DAY 01/10/2021 4 bisoprolol (ZEBETA) 5 mg tablet TAKE 1 TABLET BY MOUTH EVERY DAY 90 tablet 1 12/28/2020 1 Eliquis 5 mg tablet TAKE 1 TABLET BY MOUTH TWICE A DAY 180 tablet 3 08/18/2020 1 furosemide (LASIX) 20 mg tablet TAKE 1 TABLET BY MOUTH EVERY DAY 90 tablet 3 07/11/2020 1 hydroxychloroquine (PLAQUENIL) 200 mg tablet Take 1 tablet (200 mg total) by mouth 2 (two) times a day. 180 tablet 05/14/2018 4 montelukast (SINGULAIR) 10 mg tabletIndications:Ma intenance Therapy for Asthma Take 1 tablet (10 mg total) by mouth nightly 90 tablet 3 11/14/2020 1 nitroglycerin (NITROSTAT) 0.4 mg SL tablet May repeat dose every 5 minutes for up to 3 doses total. 25 tablet 3 05/23/2018 4 ondansetron ODT (ZOFRAN-ODT) 4 mg disintegrating tablet 11/02/2019 4 PARoxetine (PAXIL) 20 mg tablet TAKE 1/2 TABLET BY MOUTH EVERY DAY IN THE MORNING 15 tablet 1 12/21/2020 1 potassium chloride ER (Klor-Con M20) 20 [...] Procedure Name Priority Date/Time Associated Diagnosis Comments TRANSTHORACIC ECHO (TTE) COMPLETE W DOPPLER/CF W CONTRAST Routine 01/18/2021 9:08 AM CDT Paroxysmal atrial fibrillation (CMS/HCC) documented in this encounter Results * TRANSTHORACIC ECHO (TTE) COMPLETE W DOPPLER/CF W CONTRAST (01/18/2021 9:08 AM CDT) Anatomical Region Laterality Modality Ultrasound 01/18/2021 8:00 AM CDT Narrative 01/18/2021 9:55 AM CDT Patient name: Chio Orantes Date of test: 01/18/2021 Type of test: TTE w/Doppler [facility] #: [id number] Date of : 1950 (F) Production Bow Maker: Joan Harmon RDCS Referring Physician: JUDAH DUGGAN MD Contrast Agent: 0.4 ml Optison Administered, (2.6 ml wasted). Contrast Administered by: Dannielle Yang RN Supervised/Interpreted by: Ashley Ovalles MD Diagnosis: Location: [facility] Reason for test: paroxysmal atrial fibrillation MV [...] 2=Hypo 3=Akinetic 4=Dyskin./Aneurysm 0=Not visualized) Parasternal Long [place]:MAS=1 BAS=1 MIL=1 MARCY=1 Parasternal Short [place]:MAS=1 MIS=1 OR=1 MIL=1 MAL=1 MA=1 Apical 4 Chambers:=1 MIS=1 BIS=1 BAL=1 MAL=1 AL=1 AC=1 Apical 2 Chambers:AI=1 OR=1 BI=1 BA=1 MA=1 AA=1 AC=1 LV Global [...] MD By signing this report, the attending clinical analyst certifies that he or she has personally supervised and interpreted the echocardiogram and has reviewed and or edited and agrees with the written comments contained within the report. Procedure Note Ashley Ovalles MD - 01/18/2021 Patient name: Chio Orantes Date of test: 01/18/2021 Type of test: TTE w/[facility] #: [id number] Date of : 1950 (F) Production Bow Maker: Joan Harmon BALBINA Referring Physician: JUDAH DUGGAN MD Contrast Agent: 0.4 ml Optison Administered, (2.6 ml wasted). Contrast Administered by: Dannielle Yang RN Supervised/Interpreted by: Ashley Ovalles MD Diagnosis: Location: [facility] Reason for test: paroxysmal atrial fibrillation MV [...] 2=Hypo 3=Akinetic 4=Dyskin./Aneurysm 0=Not visualized) Parasternal Long [place]:MAS=1 BAS=1 MIL=1 MARCY=1 Parasternal Short [place]:MAS=1 MIS=1 OR=1 MIL=1 MAL=1 MA=1 Apical 4 Chambers:=1 MIS=1 BIS=1 BAL=1 MAL=1 AL=1 AC=1 Apical 2 Chambers:AI=1 OR=1 BI=1 BA=1 MA=1 AA=1 AC=1 LV Global [...] MD By signing this report, the attending clinical analyst certifies that he or she has personally supervised and interpreted the echocardiogram and has reviewed and or edited and agrees with the written comments contained within the report. Judah Duggan MD CV ECHO PROCEDURES Final Resul t documented in this encounter Visit Diagnoses Diagnosis Paroxysmal atrial fibrillation (CMS/HCC) (HCC) Atrial fibrillation documented in this encounter Administered Medications Inactive Administered Medications - up to 3 most recent administrations Medication Order MAR Action Action Date Dose Rate Site perflutren protein-a (OPTISON) 3 mL in sodium chloride 0.9% 8 mL syringe 1-8 mL, intravenous, Once in imaging, contrast, Starting on Sat01/18/21 at 0808, For 1 dose, Intra-Procedure (CV) Given 01/18/2021 9:08 AM CDT 1 mL documented in this encounter Care Teams Pre Sales Systems Engineer Relationship Specialty Start Date End Date Santiago Bueno MD [address] [facility] [address] [place] [address] PCP - General 12/02/20 10/12/21 [place] [address] [facility] [address] [place] [address] Rheumatology 07/15/17 documented as of this encounter
--- OUTSIDE RECORDS SUMMARY | 2024-08-29 10:19 | XMS_ITS | Encounter Summary ---
Author Organization [facility] Address [address] [place] [address] Phone Care Team Providers Care Line Out Man Name Role Phone Santiago Bueno MD Primary Care Provider [phone] Gladis Song MD Unavailable Reason for Visit * Reason Comments PT Initial Eval * Consultation (Routine) - Canceled Specialty Diagnoses / Procedures Referred By Contac t Referred To Contact Occupational Therapy Diagnoses Bilateral hand pain Lynn Ventura NP [address] [place] [address] Phone: tel: fax: [facility] Occupational Therapy [address] [place] [address] 6th [place] [address] [place] [address] Phone: tel: fax: Referral ID Status Reason Start Date Expiration Date Visits Requested Visits Authorized [id number] Canceled Specialty Services Required 04/06/2020 05/06/2021 24 24 Encounter Details Date Type Department Care Team (Late st Contact Info) Description 04/06/2020 10:00 AM CDT Therapy [facility] Occupational Therapy [address] [place] [address] 6th [place] [address] [place] [address] Silvia Granger DPT [address] [place] [id number] Trigger thumb of both hands (Primary Dx); Bilateral hand pain Social History Tobacco Use Types Packs/Day Years [...] on file 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 Bilateral hand pain 729.5 M79.641 Ambulatory referral order to Occupational Therapy - M79.642 MD order: Diagnosis: triggering and lupus Surgery: R thumb trigger release, L side injection/steroid thumb ?? Frequency/Duration:1-2x/week for 3 months Next MD Visit: TBD ? OT/PT Evaluate and Treat: Edema management, A/PROM, gentle scar management Start time: 9:30 am Subjective: Patient reports: Pt had trigger release on R and injection on L on 03/28/2020. She had trigger for months prior to the surgery. Takes care of her (L-Vad) Patient's primary goal: normal function Diagnosis: Trigger thumbs Date of onset: see above Cause of injury: gradual onset Date of surgery: 03/28/2020 Surgery details: trigger release R thumb, injection L thumb for triggering Next MD Appointment: 1 week Past Medical History: Diagnosis Date ??? Asthma [...] Sleep apnea ??? 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 [] Yes [x] No Medication using: ADL Status: [x] Independent [] Requires assistance [] Dependent Details: IADL Status: [] Independent [x] Requires assistance [] Depedendent Details: Leisure activities: [] Able to participate in leisure activities [x] Unable to participate in leisure activities Details: Sleep: [] Reports adequate sleep to support daily routines [x] Reports inadequate sleep to support daily routines Details: Objective: Wound/appearance: Bandaid over incision on R - healed incision line (Lynn Bar came during our session and applied steri-strips over incision line). Instructed by Lynn to let soap and water run over incision line, but not submerge in water. Clinical Exam: - Tinels and - Phalens R Carpal tunnel AROM: Full finger ROM Thumb opposition to SF PIP joint with pain at palm and dorsal thumb at end range PA R 40 L 47 RA R 45 L 45 Thumb P1 R 7.1, L 6.8 cm QUICK DASH 04/06/2020 Open a tight or new jar 3 - Moderate Difficulty Do heavy booster station operator (e.g., wash so, floors) 5 - Unable Carry a shopping bag or briefcase 5 - Unable Wash your back 5 - Unable Use a knife to cut food 3 - Moderate Difficulty Recreational activities in which you take some force or impact through your arm, shoulder, or hand (e.g., golf, hammering, tennis, etc.) 5 - Unable During the past week, to what extent has your arm, shoulder, or hand problem interfered with your normal social activities with family, friends, neighbours or groups? 3 - Moderately During the past week, were you limited in your work or other regular daily activities as a result of your arm, shoulder or hand problem? 3 - Moderately Limited Arm, shoulder or hand pain 1 - None Tingling (pins and needles) in your arm, shoulder or hand 2 - Mild During the past week, how much difficulty have you had sleeping because of the pain in your arm, shoulder or hand? 1 - No Difficulty Quick DASH Disability/Symptom Score: 56.82 Treatment Provided: Instruction on AROM thumb opposition, circles, and thumb palmar abduction 10 reps, 4 times/day Discussed scar massage and pt to begin when steri-strips fall off or are removed Assessment: Pt demonstrated independence/verbalized understanding in: [x] HEP [] Don/doff orthosis [x] All tx listed above Assessment details: Mrs. Orantes demonstrates decreased ROM of R thumb following trigger release. She is ind with HEP forimproving ROM and verbalizes understanding of scar massage (to begin when steri-strips are removed). She would benefit from skilled therapy for regaining ROM and functional use of her R hand for all activities. Impairment list: [] Coordination [] Edema [] Endurance/activity tolerance [] Fine motor use [] Flexibility [] Gross motor use [] Muscle tone [x] Pain [x] Range of motion [] Scar tissue [] Sensation [] Sensory/motor [] Skin integrity [x] Strength Other: Functional Limitations: [] ADLs [] Community activities [] Communication [] Education [x] Home management [] Leisure activities [] Play [] Safety [] Sports [x] Work Other: Environmental Barriers: [] Home [] Work [] Community Barriers to Therapy: Intervention Approach: [] Health promotion [x] Remediation [] Wellness [] Adaptation [] Prevention Prognosis: [] Excellent [x] Good [] Fair [] Poor Goals for Physical Therapy Intervention Goal Status / Date Updated Due by: STG1 Pt to be ind with HEP. New 04/06/2020 04/15/2020 LTG1 Pt to increase AROM R thumb to allow return to all activities. New 04/06/2020 05/01/2020 Plan: Frequency/Duration: 1 time/week for 4 weeks Plan Details: ROM, functional activities, scar management End time: 10:00 am Silvia Granger PT, DPT, CHT documented in this encounter Plan of Treatment Not on file documented as of this encounter Visit Diagnoses Diagnosis Trigger thumb of both hands- Primary Bilateral hand pain documented in this encounter Orders Outpatient Referral Count Last Ordered Date Fir st Ordered Date AMB REFERRAL ORDER TO OCCUPATIONAL THERAPY 1 04/06/2020 documented in this encounter Care Teams Line Out Man Relationship Specialty Start Date End Date Santiago Bueno MD [address] [facility] [address] [place] [address] PCP - General 11/30/16 06/09/20 [place] [address] [facility] [address] [place] [address] Rheumatology 07/15/17 documented as of this encounter
--- OUTSIDE RECORDS SUMMARY | 2024-08-29 10:19 | XMS_ITS | Encounter Summary ---
Author Organization [facility] Address [address] [place] [address] Care Team Providers Care Hydraulic Corrugating Machine Operator Name Role Phone Santiago Bueno MD Primary Care Provider [phone] Gladis Song MD Unavailable Encounter Details Date Type Department Care Team (Latest Contact Info) Description 03/28/2020 5:47 AM CDT - 03/28/2020 8:59 AM CDT Hospital Encounter [facility] [address] [place] [address] Lucrecia Gallegos MD [facility] [address] 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 Gender Identity Not on file Sexual Orientation [...] 6:35 AM CDT documented in this encounter Discharge Diagnoses Diagnosis Trigger thumb, right thumb - TRIGGER THUMB, RIGHT THUMB Trigger thumb, left thumb - TRIGGER THUMB, LEFT THUMB Systemic lupus erythematosus, unspecified ([facility]) - SYSTEMIC LUPUS ERYTHEMATOSUS, UNSPECIFIED Occlusion and stenosis of bilateral carotid arteries - OCCLUSION AND STENOSIS OF BILATERAL CAROTID ARTERIES Nonrheumatic aortic (valve) insufficiency - NONRHEUMATIC AORTIC (VALVE) INSUFFICIENCY Nonrheumatic mitral (valve) insufficiency - NONRHEUMATIC MITRAL (VALVE) INSUFFICIENCY Rheumatic tricuspid insufficiency - RHEUMATIC TRICUSPID INSUFFICIENCY Diseases of tricuspid valve Sleep apnea, unspecified - SLEEP APNEA, UNSPECIFIED Hyperlipidemia, unspecified - HYPERLIPIDEMIA, UNSPECIFIED Atherosclerotic heart disease of [place] coronary artery without angina pectoris - ATHEROSCLEROTIC HEART DISEASE OF [place] CORONARY ARTERY WITHOUT ANGINA PECTORIS Hypertensive heart disease with heart failure ([facility]) ([facility]) - HYPERTENSIVE HEART DISEASE WITH HEART FAILURE Unspecified hypertensive heart disease with heart failure Heart failure, unspecified ([facility]) ([facility]) - HEART FAILURE, UNSPECIFIED Heart failure, unspecified Unspecified atrial fibrillation ([facility]) - UNSPECIFIED ATRIAL FIBRILLATION Unspecified asthma, uncomplicated - UNSPECIFIED ASTHMA, UNCOMPLICATED Irritable bowel syndrome without diarrhea - IRRITABLE BOWEL SYNDROME WITHOUT DIARRHEA Major depressive disorder, single episode, unspecified - MAJOR DEPRESSIVE DISORDER, SINGLE EPISODE, UNSPECIFIED Unspecified osteoarthritis, unspecified site - UNSPECIFIED OSTEOARTHRITIS, UNSPECIFIED SITE Other fci (current) drug therapy - OTHER PBX REPAIRER (CURRENT) DRUG THERAPY detention (current) use of anticoagulants - HALFWAY (CURRENT) USE OF ANTICOAGULANTS Long-term (current) use of anticoagulants manager intermediate (current) use of inhaled steroids - PBX REPAIRER (CURRENT) USE OF INHALED STEROIDS Allergy status to sulfonamides status - ALLERGY STATUS TO SULFONAMIDES STATUS Allergy status to other drugs, medicaments and biological substances status - ALLERGY STATUS TO OTHER DRUGS, MEDICAMENTS AND BIOLOGICAL SUBSTANCES STATUS Allergy status to other antibiotic agents status - ALLERGY STATUS TO OTHER ANTIBIOTIC AGENTS STATUS Latex allergy status - LATEX ALLERGY STATUS Personal history of transient ischemic attack (TIA), and cerebral infarction without residual deficits - PERSONAL HISTORY OF TRANSIENT ISCHEMIC ATTACK (TIA), AND CEREBRAL INFARCTION WITHOUT RESIDUAL DEFICI documented in this encounter Medications at Time [...] Based on the above findings, I consider Choi Orantes to be an acceptable risk for :Procedure(s): RELEASE TRIGGER FINGER - THUMB INJECTION STEROID - FINGER - THUMB RIGHT side surgery Left side injection MAC w Crellin Block Source Note - Jessy Will NP - 03/21/2020 5:08 PM CDT Images from the original note were not included. Center for Preoperative Assessment and Planning Preoperative Evaluation Record Evaluation type/location: TPAP from [facility] Planned procedure site: [facility] CAM OR (Pod 4) Date: 03/21/20 NOTE: [...] + ICA stenosis (Per carotid duplex in 2015) - left internal carotid artery and right [...] by telephone and in writing sent via [employer] mail. Patient verbalized understanding of preoperative plan. Patient with No known exposure to COVID19 and no concerning symptoms of COVID19. Plan for pre-procedure COVID19 testing: Telephone assessment performed. Pre- procedure COVID19 testing scheduled to be performed on 03/24/2020 at [facility]. . + PFO This patient has a history of atrial fibrillation with a [id number] score of 6 at MODERATE risk for perioperative thromboembolic events due to [id number] score as per the 2017 ACC Expert [...] in place. Please call the CPAP attending ([phone]) to revisit bleeding risk assessment, with any [...] Surgical History: Procedure Laterality Date ??? APPENDECTOMY 1975 ??? BILATERAL OOPHORECTOMY 1975 ??? SECTION 1975 ??? COLONOSCOPY 2019 ??? HYSTERECTOMY ??? TONSILLECTOMY/ADENOIDECTOMY [...] FORTE) 5 mg tablet -- -- Historical Provider, montelukast (SINGULAIR) 10 mg tablet 02/16/20 -- [...] bilateral vertebral arteries. Other: Holter Monitor: 04/25/2015: Senior Industrial Engineer review of transmission: NSR PT: No results [...] CDT CHIEF COMPLAINT: 1. 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 She also [...] for the procedure They will go to [facility]. Post-Operative Follow Up: 10 days with my SAND WORKER for wound check I will put her [...] noted and/or provided clarification. Lucrecia Gallegos MD Broadcast News Producer Division of Plastic Surgery (Hand, Reconstructive and Peripheral Nerve Surgery) Please note this was created using MModal and may have some trauma registrar variance. documented in this encounter Miscellaneous Notes * Brief Op Note - Roc Salmon MD - 03/28/2020 7:43 AM CDT Operative Progress Note Surgical Team: Surgeon(s) and Role: * Lucrecia Gallegos MD - Primary * Roc Salmon MD - Resident - Assisting Anesthesiologist: Nj Garcia MD DDS CARPENTRY SUPERVISOR: Leighton Cosme CRNA Food Service Helper: Mera Mccauley RN; Sue Hurst RN Scrub: [...] 12:[address] Lucrecia Gallegos. State Wildlife Officer Dr. Roc Salmon. Preoperative Diagnosis Bilateral thumb [...] DVT prophylaxis with SCDs and early ambulation. Taylorwiisrael restart her Xarelto in the evening today. [...] exsanguinated, elevated the tourniquet and administered the Crellin block. The IV was removed, pressure was [...] for suture removal. Job ID/VF Job ID: [id number] * Pre-Procedure Instructions - Jessy Will, FELICIA - 03/21/2020 5:11 PM CDT [facility] for Preoperative Assessment and Planning CPAP Clinic Location: [facility] The night before your surgery: [...] Planning Perioperative Nursing Note Telephone Preoperative Evaluation ([facility]) - TELEPHONE ONLY, NO PHYSICAL EXAM Date: [...] Directive: Patient does not have advance directive Communication/Solder Cream Maker Needs Communication Needs: Glasses Patient's Preferred Language: Uzbek Does caregiver's language differ from patient's?: No Is an freelance director needed? : No Assistive Devices/DME: CPAP/BiPAP Discharge Planning Type of Residence: Private residence Living Arrangements: Spouse/significant other Support Systems: Spouse/significant other Patient expects to be discharged to:: Private residence(Television Maintenance Man: ) COVID TESTING PLAN-See Instructions for plan We recommend you Self-Isolate after COVID Testing: Stay at home, if possible until your surgery date. Maintain a 6 foot distance from other people (social distancing). Avoid touching your eyes, nose and mouth with unwashed hands. Wash your hands often with soap and water for at least 20 seconds. Use an alcohol- based hand staff therapist that contains at least 60% alcohol if [...] insurance card, a photo ID (like a Television Maintenance Man's license) and a method of payment for [...] COVID TESTING PLAN COVID Test set up [facility] on 03/24/20. In-basket message sent to [employer]. Patient aware of plan. If you need to reschedule your COVID test to a different location or if your surgery gets rescheduled, you MUST call [phone] Saturday-Saturday 8am-4:30pm to get your COVID testing [...] 20 seconds. Use an alcohol- based hand staff therapist that contains at least 60% alcohol if soap and water are not available. All visitors/patients are being asked to wear a clean mask when entering the hospital. COVID 19 Updates & Visitor Policy: Please access [email or web address] for the most updated information. Surgery Times: ??? For patients having [facility] @ [facility], if your surgeon's office has not notified you of your surgery time by NOON THE DAY BEFORE your surgery, please call [phone] and ask for your surgeon's office Dr. [...] Diagnosis Trigger finger of right thumb- Primary documented in this encounter Admitting Diagnoses Diagnosis Trigger finger of right thumb documented in this encounter Administered Medications Inactive Administered Medications - up to 3 most recent administrations Medication Order MAR Action Action Date Dose Rate Site Lactated Ringer's (LR) infusion 30 mL/hr, intravenous, Continuous, Starting on 03/28/20 at 0700, Pre-Op Rate/Dose Verify 03/28/2020 7:23 AM CDT New Bag 03/28/2020 7:02 AM CDT 30 mL/hr 30 mL/hr documented in this encounter Discontinued Medications Medication [...] 60 minutes of incision., Indications: Prophylaxis, Surgical 0726 (Given - Provid er: Leighton Cosme CRNA) Continuous Medication Order 03/26/2020 03/27/2020 03/28/2020 Lactated Ringer's (LR) infusion 30 mL/hr, intravenous, Continuous, Starting on Sat03/28/20 at 0700, Pre-Op 0702 (New Bag - Prov ider: Archana Purcell RN)0723 (Rate/Dose Verify - Provider: Leighton Cosme CRNA)0828 (Stopped - Provider: Kriss Sanz RN) Lactated Ringer's (LR) infusion 125 mL/hr, intravenous, [...] (TYLENOL) tablet 1,000 mg 1 0 03/28/2020 bupivacaine (MARCAINE) 0.5 % (5 mg/mL) preservative free injection 1 03/28/2020 ceFAZolin (ANCEF) 2,000 mg/2 0 mL in sterile water (premix) 2,000 mg 1 03/28/2020 dexAMETHasone (DECADRON) 4 mg/mL injection 1 03/28/2020 fentaNYL (SUBLIMAZE) preserv ative free injection 25 mcg 1 03/28/2020 fentaNYL (SUBLIMAZE) preserv ative free injection 50 mcg 2 03/28/2020 Lactated Ringer's (LR) infusion 2 0 meperidine (DEMEROL) preserv ative free injection 12.5 mg 1 03/28/2020 sodium chloride 0.9 % irrigation 1 03/28/20 20 sodium chloride 0.9% flush 0.5-20 mL 2 03/03 Diet Count Last Ordered Date First Orde red Date ADULT DISCHARGE DIET 1 03/28/2020 Nursing Count Last Ordered Date First Orde red Date DISCHARGE ACTIVITY 1 03/28/2020 DISCHARGE DRESSING 2 03/28/2020 DISCHARGE INSTRUCTIONS 1 03/28/2020 OTHER FOLLOW UP 1 03/28/2020 WEIGHT RESTRICTIONS 1 03/28/2020 documented in this encounter Care Teams Hydraulic Corrugating Machine Operator Relationship Specialty Start Date End Date Santiago Bueno MD [address] [facility] [address] [place] [address] PCP - General 11/30/16 06/09/20 [place] [address] [facility] [address] [place] [address] Rheumatology 07/15/17 documented as of this encounter
--- OUTSIDE RECORDS SUMMARY | 2024-08-29 10:19 | XMS_ITS | Encounter Summary ---
Author Organization [facility] Address [address] [place] [address] Phone Care Team Providers Care Enterprise Sales Person Name Role Phone Gladis Song MD Unavailable Santiago Bueno MD Primary Care Provider [phone] Encounter Details Date Type Department Care Team (Latest Contact Info) Description 01/18/2021 9:00 AM CDT Office Visit 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 Gender Identity Not on file Sexual Orientation Not on file Occupation Industry Job Start Date Job End Date Retired Not on file Not on file Not on file documented as of this encounter Last Filed Vital Signs Vital Sign Reading Time Taken Comments Blood Pressure 113/75 01/18/2021 9:30 AM CDT Pulse 68 01/18/2021 9:30 AM CDT Temperature - - Respiratory Rate - - Oxygen Saturation 98% 01/18/2021 9:30 AM CDT Inhaled Oxygen Concentration - - Weight 69.3 kg (152 lb 12.8 oz) 01/18/2021 9:30 AM CDT Height 147.3 cm (4' 10 ) 01/18/2021 9:30 AM CDT Body Mass Index 31.94 01/18/2021 9:30 AM CDT documented in this encounter Patient Instructions * Patient Instructions* Mary Beth Coulter NP - 01/18/2021 9:00 AM CDT Labs today-lipid panel documented in this encounter Progress Notes * Mary Beth Coulter NP - 01/18/2021 9:00 AM CDT [facility] Patient ID Chio Orantes 1950 is a 70 y.o. female presenting to the [facility] on 01/18/2021. Pt of Dr Duggan HISTORY Chief Complaint: exertional dyspnea, CAD, HFpEF HPI Ms. Orantes is a 70 y/o female with past medical history of paroxysmal atrial fibrillation on Eliquis, HFpEF, mild coronary artery disease, PFO, asthma, previous CVA and hyperlipidemia. She was last seen by Dr Duggan in 06/2020. She presents today for complaints of exertional dyspnea over the last couple of months. She notes exertional dyspnea when climbing one flight of stairs. She related it to herasthma, so she started taking rescue inhalers more frequently, but noticed no improvement. CXR doneat PCP's office last month was reportedly normal. She denies significant edema, PND or orthopnea. She notes couple of episodes of palpitations in the last month described as heart pounding and skipped beats. She denies near syncope or syncope. She had 1-2 episodes of chest pain described as heartburn or burning across chest that awakened her at night and lasted 5-10 minutes. It did improve with 1SL NTG. It was associated with diaphoresis at that time. She thinks this is different than her previous GI symptoms. She denies any exertional chest pain or any further episodes. Her home BP are 130-140/80s, and she has noticed her heart rate was high couple of times on BP monitor. She had a 5 pound intentional weight loss, and she has gained about 4 pounds since then. Review of Systems As per HPI. All other systems negative. Allergies Allergies Allergen Reactions ??? Latex Rash ??? Sulfa (Sulfonamide Antibiotics) Swelling ??? Levofloxacin Headache and Nausea only ??? Nitrofurantoin Headache Medications Outpatient Medications Marked as Taking for the 01/18/21 encounter (Office Visit) with Mary Beth Coulter NP Medication Sig Dispense Refill ??? abatacept/maltose (ORENCIA, WITH MALTOSE, IV) Infuse into a venous catheter every 30 (thirty) days ??? albuterol HFA (PROVENTIL HFA,VENTOLIN HFA,PROAIR HFA) 90 mcg/actuation inhaler Inhale 90 puffs ??? alosetron (LOTRONEX) 1 mg tablet Take 1 mg by mouth as needed ??? atorvastatin (LIPITOR) 80 mg tablet TAKE 1 TABLET BY MOUTH EVERY DAY 90 tablet 3 ??? azelastine (ASTELIN) 137 mcg (0.1 %) nasal spray INSTILL 1 SPRAY INTO EACH NOSTRIL DIRECTED 2 TIMES PER DAY ??? bisoprolol (ZEBETA) 5 mg tablet TAKE 1 TABLET BY MOUTH EVERY DAY 90 tablet 1 ??? calcium carbonate (OS-LEELA) 1,500 mg (600 [...] a day ) 180 tablet 0 ??? montelukast (SINGULAIR) 10 mg tablet Take 1 tablet (10 mg total) by mouth nightly 90 tablet 3 ??? nitroglycerin (NITROSTAT) 0.4 [...] 2 TABLETS EVERY EVENING) 360 tablet 3 Past Medical History Past Medical History: Diagnosis Date ??? Asthma [...] a child ??? UPPER GASTROINTESTINAL ENDOSCOPY 2019 PHYSICAL EXAM BP 113/75 (BP Location: Right arm, Patient Position: Sitting) Pulse 68 Ht 147.3 cm (4' 10 ) Wt 69.3 kg (152 lb 12.8 oz) LMP (LMP Unknown) SpO2 98% BMI 31.94 kg/m?? General: No acute distress. Psychiatric: Normal affect and mood. Skin: Warm, dry. No evident lesions. HEENT: NCAT. No carotid bruit. No JVP. No pallor or icterus. Lungs: Clear to auscultation bilaterally. Cardiovascular: RRR. Normal S1 &S2. No murmur. No rub or gallop. No lower extremity edema. Abdomen: Soft and non-tender. Bowel sounds normal. Neurologic: A&O x3. Cranial nerves grossly intact. Extremities: Warm, dry. Well perfused. No edema to bilateral lower extremities. DIAGNOSTIC DATA ECHO: 2018 SUMMARY: Normal LV size, wall thickness, and systolic function, LVEF 61%. Normal RV size and systolic function. Impaired LV relaxation. Mild AI, MR, and TR. Est PASP 30 mmHg. Normal IVC. Normal atria. Aortic root 3.4 cm. Cardiac Cath: 2018 Coronary Angiography Left Main: The left main is without significant atherosclerotic coronary artery disease. ?? Left Anterior Descending: The LAD gives rise to several diagonals the 3rd 1 is a major 1 the mid LAD has minor plaquing. ?? Circumflex: The circumflex is a nondominant vessel the mid circumflex has a 20- 30% narrowing obtusemarginal 1 bifurcates and has mild plaquing obtuse marginal 2 has a 20% lesion. ?? Right Coronary Artery: The right coronary artery is a dominant vessel. Has some areas of mild ectasia proximal with a 20 to 30% narrowing in the midportion ?? - Diagnostic Impression relatively mild coronary artery disease 20-30% narrowing in the circumflex and right coronary artery with markedly elevated LVEDP ?? - Therapeutic Recommendations the patient presents with symptoms of chest pain and shortness of breath. Her for coronary artery disease is relatively mild. Her symptoms are secondary to heart failure with preserved ejection fraction. She will be started on a diuretic Labs: reviewed NT-proBNP 63, BMP WNL, CBC WNL Lab Results Component Value Date TROPONINI <0.03 05/23/2018 INR 1.10 05/30/2018 WBC 4.8 09/03/2019 HGB 13.4 09/03/2019 HCT 43.3 09/03/2019 LABPLAT 223 09/03/2019 ASSESSMENT/PLAN 1. Exertional dyspnea-Unclear etiology. Echo today is pending. Recent NT-proBNP was normal. No signof volume overload on exam today. If no significant abnormality seen on Echo, could consider event monitor to rule out arrhthymias causing symptoms. Only rare episodes of palpitations, but she does have reported history of paroxysmal atrial fibrillation. 2. Paroxysmal atrial fibrillation-Continue bisoprolol and Eliquis. See discussion above. 3. HFpEF- Does not appear to be grossly volume overloaded on exam today. Echo today is pending. Continue lasix and beta naye. 4. Coronary artery disease- mild CAD noted on [facility] 2018. Rare episodes of chest pain. If increased frequency of CP or becomes unstable, could consider stress test at that time. Continue statin and beta naye. 5. History of PFO-Echo today is pending. 6. Previous CVA-Continue anticoagulation and statin. She will return in 4 months or sooner if needed. Please do not hesitate to call the office with any questions for any questions regarding the care of Ms. Orantes. Mary Beth Coulter, FELICIA 01/18/2021 This note was written using a voice recognition system hardware device. Please note there may be variance in spelling, adeel, and syntax because of the voice recognition system hardware. Therefore,not every sentence has been reviewed in its entirety. If there are any concerns about verbage aboveplease contact Mary Beth Coulter, . Cosigned by Judah Duggan MD at 01/18/2021 12:37 PM CDT documented in this encounter Plan of Treatment Not on file documented as of this encounter Results * Lipid panel (01/18/2021 9:55 AM CDT) Triglycerides 119 0 - 149 mg/dL [facility] Comment: NATIONAL CHOLESTEROL EDUCATION PROGRAM ATP III GUIDELINES FOR ADULTS: Normal: ?<150 mg/dL Borderline High: 150-199 mg/dL High: ?200-499 mg/dL Very High: ? >=500 mg/dL Total Cholesterol 140 0 - 199 mg/dL [facility] Comment: NATIONAL CHOLESTEROL EDUCATION PROGRAM ATP III GUIDELINES FOR ADULTS: Desirable: ? <200 mg/dL Borderline High: 200-239 mg/dL High: ?>=240 mg/dL Total HDL-C Direct 64 >39 mg/dL [facility] Comment: NATIONAL CHOLESTEROL EDUCATION PROGRAM ATP III GUIDELINES FOR ADULTS: Optimal: ?>=60 mg/dL Near Optimal: 40-59 mg/dL High Risk: ?<40 mg/dL [place] LDL Chol 52 0 - 129 mg/dL [facility] Comment: NATIONAL CHOLESTEROL EDUCATION PROGRAM ATP III GUIDELINES FOR ADULTS: Optimal: ? <100 mg/dL Near Optimal: ?100-129 mg/dL Borderline High: 130-159 mg/dL High: ?160-189 mg/dL Very High: ? >=190 mg/dL Blood specimen (specimen) 01/18/2021 9:55 AM CDT 01/18/2021 10:12 AM CDT [facility] NURSE LAB BLOOD ORDERABLES Final Result [facility] documented in this encounter Visit Diagnoses Diagnosis Hyperlipidemia, unspecified hyperlipidemia type- Primary Exertional dyspnea Other dyspnea and respiratory abnormality Paroxysmal atrial fibrillation (CMS/HCC) (HCC) Atrial fibrillation Chronic heart failure with preserved ejection fraction (CMS/HCC) (HCC) Coronary artery disease involving agua caliente coronary artery of ag[place] caliente heart with other form of angina pectoris (HCC) documented in this encounter Discontinued Medications Medication Sig Discontinue Reason Start Date End Da te metoprolol XL (TOPROL-XL) 50 mg extended release tablet Take 1 tablet by mouth nightly Patient Discharge 01/18/2021 metoprolol tartrate (LOPRESSOR) 25 mg immediate release tablet Take 25 mg by mouth daily Patient Discharge 01/18/2021 methscopolamine (PAMINE FORTE) 5 mg tabletIndications:IBS Take 5 mg by mouth every morning Patient Discharge 01/18/2021 methotrexate 25 mg/mL syringe Inject 0.6 mL (15 mg total) under the skin once a week. Patient Discharge 03/19/2018 01/18/2021 leflunomide (ARAVA) 20 mg tablet Take 20 mg by mouth daily Patient Discharge 01/18/2021 etodolac (LODINE) 400 mg tablet Patient Discharge 01/18/2021 beliMUMAB (BENLYSTA) 120 mg recon solnIndications:Systemic Lupus Erythematosus Patient Discharge 01/18/2021 documented as of this encounter Historical Medications * This list may reflect changes made after this encounter. pantoprazole DR (PROTONIX) 40 mg EC tablet Take 1 tablet (40 mg total) by mouth 2 (two) times a day 12/08/2020 abatacept/josé miguel e (ORENCIA, WITH MALTOSE, IV) Infuse into a venous catheter every 30 (thirty) days 09/25/2023 alosetron (LOTRONEX) 1 mg tablet Take 1 mg by mouth as needed 01/10/2021 09/25/2023 azelastine (ASTELIN) 137 mcg (0.1 %) nasal spray INSTILL 1 SPRAY INTO EACH NOSTRIL DIRECTED 2 TIMES PER DAY 01/10/2021 09/25/2023 metoprolol XL (TOPROL-XL) 50 mg extended release tablet Take 1 tablet by mouth nightly 01/18/2021 added in this encounter Care Teams Enterprise Sales Person Relationship Specialty Start Date End Date Santiago Bueno MD [address] [facility] [address] [place] [address] PCP - General 12/02/20 10/12/21 [place] [address] [facility] [address] [place] [address] Rheumatology 07/15/17 documented as of this encounter
--- OUTSIDE RECORDS SUMMARY | 2024-08-29 10:19 | XMS_ITS | Encounter Summary ---
Author Organization [facility] Address [address] [facility] [address] [place] [address] Phone Care Team Providers Care Hand Drawer In Helper Name Role Phone Santiago Bueno MD Primary Care Provider [phone] Gladis Song MD Unavailable Reason for Referral * Consultation (Routine) - Closed Specialty Diagnoses / Procedures Referred By Valerie florian Referred To Contact Occupational Therapy Diagnoses Bilateral hand pain Lucrecia Gallegos MD [address] [place] [address] Phone: tel: fax: [facility] Occupational Therapy [address] [place] [address] [place] [address] Phone: tel: fax: Referral ID Status Reason Start Date Expiration Date V isits Requested Visits Authorized [id number] Closed Specialty Services Required 03/28/2020 04/27/2021 24 24 Question Answer PTRFR OT Evaluate and Treat Reason for Visit PT/OT EVAL AND TX Therapy options discussed with patient? Yes Location provided for therapy services is: Patient requested/Patient preferred Please select the performing region: [facility] (All Locations) [[id number]] Please select the performing department: [facility] [[id number]] # of visits: 24 [facility] Order ?? Okay to schedule- please schedule with upcoming visits with Kyle ?? Diagnosis: triggering and lupus Surgery: R thumb trigger release, L side injection/steroid thumb ?? Frequency/Duration:1-2x/week for 3 months Next MD Visit: TBD ? OT/PT Evaluate and Treat: Edema management, ROM ? 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 Gender Identity Not on file Sexual Orientation Not on file Occupation Industry Job Start Date Job End Date Retired Not on file Not on file Not on file documented as of this encounter Plan of Treatment Scheduled Referrals Name Type Priority Associated Diagnoses Order Schedule Ambulatory referral order to Occupational Therapy - Outpatient Referral Routine Bilateral hand pain Expected: 04/11/2020 (Approximate), Expires: 03/28/2021 documented as of this encounter Visit Diagnoses Diagnosis Bilateral hand pain- Primary documented in this encounter Care Teams Hand Drawer In Helper Relationship Specialty Start Date End Date Santiago Bueno MD [address] [facility] [address] [place] [address] PCP - General 11/30/16 06/09/20 [place] [address] [facility] [address] [place] [address] Rheumatology 07/15/17 documented as of this encounter
--- OUTSIDE RECORDS SUMMARY | 2024-08-29 10:19 | XMS_ITS | Encounter Summary ---
Author Organization [facility] Address [address] [place] [address] Phone Care Team Providers Care Under Ground Miner Name Role Phone Gladis Song MD Unavailable Gabriel Persaud MD Primary Care Provider Encounter Details Date Type Department Care Team (Late st Contact Info) Description 12/01/2020 Telephone 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 Echo pending ----- Message ----- From: Dannielle Blackwood RN Sent: 11/30/2020 4:14 PM CDT To: Judah Duggan MD ----- Message ----- From: Zeenat German Sent: 11/30/2020 4:04 PM CDT To: Dannielle Blackwood RN documented in this encounter Plan of Treatment Not on file documented as of this encounter Visit Diagnoses Not on filedocumented in this encounter Care Teams Under Ground Miner Relationship Specialty Start Date End Date Gabriel Persaud MD [address] [address] PCP - General Family Medicine 11/29/20 12/01/20 [place] [address] [address] Rheumatology 07/15/17 documented as of this encounter
--- OUTSIDE RECORDS SUMMARY | 2024-08-29 10:19 | XMS_ITS | Encounter Summary ---
Author Organization [facility] Healthcare Address [address] [place] [address] Care Team Providers Care Partition Assembly Machine Operator Name Role Phone Santiago Bueno MD Primary Care Provider [phone] Gladis Song MD Unavailable Encounter Details Date Type Department Care Team (Late st Contact Info) Description 03/28/2020 7:23 AM CDT Anesthesia Event [facility] Operating Room [facility] ([facility]) [address] [place] [address] Nj Garcia MD DDS [address] [place] [address] Jessy Will NP [address] [facility] [phone] [place] [address] Anesthesia Record Procedure Summary Procedure Name Responsible Anesthesiologist Anesthesia Start Time Anesthesia Stop Time RELEASE TRIGGER FINGER - THUMB (Right: Fingers) Nj Garcia MD DDS 03/28/20 0723 03/28/20 0813 Events Date Time Event Comment 03/28/2020 0619 In Preop 0723 An Start 0724 In Room 0725 An Start Data 0730 Start Supplemental O2 0732 An Block Induction The patie nt was reevaluated immediately before moderate or deep sedation and before anesthesia induction. 0733 Proc Start 0735 Kinza block placed 0736 Anesthesia Ready 0743 Incision Start 0804 Proc Fin 0806 an stop data 0809 Out of Room 0812 Handoff to RN I completed my handoff to the receiving nurse during which we: 1. Patient identified 2. Responsible provider identified 3. Pertinent medical history reviewed 4. Procedure type and surgical course discussed 5. Intraoperative anesthetic management and any significant issues discussed 6. Expectations and concerns for postop period discussed 7. Questions solicited from receiving nurse 8. Patient disposition at the time of handoff: No value filed. 0813 An Stop Meds Name Total midazolam PF 2 mg propofol 141.07 mg lidocaine 0.5 % PF 40 mL ceFAZolin (ANCEF) 2,000 mg/20 mL in ster ile water (premix) 2,000 mg 2,000 mg Lactated Ringer's (LR) infusion 0 mL * Agents Name O2% N2O O2 * Blood No blood administrations on file. Lines, Drains, and Airways Type Details Placement Removal Peripheral IV Placement Date: 06/25/18; Placement Time: 1426; Catheter Size: 24 G; Orientation: Right; Location: Antecubital; Removal Date: 03/28/20; Removal Time: 74306/25/18 142 by Kiya Dickey RN 03/28/20743 by Leighton Cosme CRNA Peripheral IV Placement Date: 03/28/20; Placement Time: 700; Catheter Size: 20 G; Orientation: Left; Location: Forearm; Site Prep: Chlorhexidine; Inserted by: velasquez felder RN; Insertion Attempts: 2; Patient Tolerance: Tolerated well; Removal Date: 03/28/20; Removal Time: 82903/28/20 07 by Velasquez Esposito, ROZINA 03/28/20 08 by Kriss Sanz, ROZINA Peripheral IV Placement Date: 03/28/20; Placement Time: 721; Catheter Size: 22 G; Orientation: Right; Location: Hand; Site Prep: Chlorhexidine; Patient Tolerance: Tolerated well; Removal Date: 03/28/20; Removal Time: 73403/28/20 07 by Leighton Cosme CRNA 03/28/20 07 by Leighton Cosme CRNA RETIRED Surgical Site 03/28/20; 0749; Le ft; Hand; thumb; 12/03/24 (Retired LDA, Removed/Completed by [facility] with LDA Utility); 1213 (Retired LDA, Removed/Completed by [facility] with LDA Utility) 03/28/20 0749 by Sue Hurst RN 08/04/24 1213 by Discharge Provider, Automatic RETIRED Surgical Site 03/28/20; 0749; Right; Hand; 08/04/24 (Retired LDA, Removed/Completed by [facility] with LDA Utility); 1213 (Retired LDA, Removed/Completed by [facility] with LDA Utility) 03/28/20 0749 by Sue Hurst RN 08/04/24 1213 by Discharge Provider, Automatic documented in this encounter Social History Tobacco [...] on file 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 CAM OR POD 4 ROOM H / [facility] OR POD 4 Anesthesia Start: 722 Anesthesia Stop: 812 Procedures: RELEASE TRIGGER FINGER - THUMB (Right Fingers) INJECTION STEROID - FINGER - THUMB (Left Hand) Diagnosis: Trigger finger of right thumb (Trigger finger of right thumb [M65.311]) Surgeon: Lucrecia Gallegos MD Responsible Provider: Nj Garcia MD DDS Anesthesia Type: MAC, IV regional ASA Status: 3 Anesthesia Type: MAC, IV regional Last vitals BP 123/84 Pulse 70 Temp 36.3 ??C (97.3 ??F) (Temporal) Resp 18 SpO2 95% Anesthesia Post Evaluation Patient location during evaluation: PACU Patient participation: complete - patient participated Level of consciousness: fully awake Pain management: adequate Airway patency: adequate Anesthetic complications: no Cardiovascular status: acceptable Respiratory status: acceptable Hydration status: acceptable Pt is: normothermic * Anesthesia Procedure Notes - Leighton Cosme CRNA - 03/28/2020 7:42 AM CDTAssociated Order(s): Kinza Block Anesthesia Kinza Block Anesthesia Reason for procedure: primary anesthetic Staff: Placed by: MICROBIAL SPECIALIST: Leighton Cosme CRNA Procedure prep: Preprocedure checklist: patient identified, patient appropriate for plan, informed consent obtained, surgical consent, risks and benefits discussed, monitors and equipment checked and timeout performed Prep solution: chlorhexadine/alcohol [place] block: Site: right upper extremity Medication injected through: IV placed preoperatively IV gauge: 22g Procedure details: tourniquet - double cuff, esmarch applied to extremity, tourniquet inflation verified, local anesthetic injected, injection IV removed and patient tolerated procedure well Assessment: Events: patient tolerated procedure well without complications * Anesthesia Preprocedure Evaluation - Nj Garcia MD DDS - 03/21/2020 5:08 PM CDT Images from the original note were not included. [facility] for Preoperative Assessment and Planning Preoperative Evaluation Record Evaluation type/location: TPAP from [facility] Planned procedure site: [facility] CAM OR (Pod 4) Date: 03/21/20 [...] disease (Per ECHO performed in 2018: Mild OK) - AR - mild; MR - mild; TR - mild. + Atrial fibrillation/flutter (chart history of a-fib. Patient denies diagnosis or history of cardioversion. Not documented in last cardiology note.) - Pertinent negatives: PA ; CABG ; valve replacement; arrhythmia; pacemaker/ICD; PVD; DVT/PE; drug-eluting stent(s); bare metal stent(s) and coronary angioplasty Respiratory + Asthma (Last use of steroids was in March/April 2019. patient reports asthma is well controlled) [...] by telephone and in writing sent via [employer] mail. Patient verbalized understanding of preoperative plan. Patient with No known exposure to COVID19 and no concerning symptoms of COVID19. Plan for pre-procedure COVID19 testing: Telephone assessment performed. Pre- procedure COVID19 testing scheduled to be performed on 03/24/2020 at [facility]. . + PFO This patient has a history of atrial fibrillation with a [id number] score of 6 at MODERATE risk for perioperative thromboembolic events due to [id number] score as per the 2017 ACC Expert [...] in place. Please call the CPAP attending ([phone]) to revisit bleeding risk assessment, with any [...] Date ??? APPENDECTOMY 1975 ??? BILATERAL OOPHORECTOMY 1974 ??? SECTION 1975 ??? COLONOSCOPY 2019 ??? [...] mg of elemental calcium) tablet -- -- Ernestina Landon MD cholecalciferol (VITAMIN D3) 2,000 unit tablet 11/30/14 [...] bilateral vertebral arteries. Other: Holter Monitor: 04/25/2015: Trimming Press Operator review of transmission: NSR PT: No [...] last 720 hours. Rodolfo index score: 100 DOS Physical Exam Medical history, medications, and allergies reviewed. Attestation: I endorse the findings of the anesthesia pre-evaluation assessment dated: 03/21/2020. Airway Exam: Mallampati: III Cervical ROM: FROM TM distance: 3 Cardiovascular Exam: Rate: regular Rhythm: regular Pulmonary Exam: LCTA EENT Exam: trachea midline Dental Exam: Appears intact Skin Exam: Skin is warm. Abdominal Exam: Abdomen is soft. Current state: Patient's current state is cooperative. Anesthesia Plan ASA 3 My patient is approved for the Anesthesia Controlled Medication protocol when under care of a MICROBIAL SPECIALIST Planned anesthesia: MAC and IV regional Induction: Induction: intravenous. Postoperative Plan: Postoperative administration opioids intended. No postoperative mechanical ventilation intended. Patient's planned disposition post procedure is Outpatient. Informed Consent: Discussed plan with MICROBIAL SPECIALIST. Anesthesia plan and risks discussed with patient. Plan and Consent Comments: Pt. declines d/o serious risks of anesthesia. Consent and Attending signature: I and/or my designee have discussed the anesthesia plan, benefits, possible alternatives, parental presence at time of induction (if indicated), and clinically relevant risks that may include dental injury, unintentional awareness, and/or other complications. The patient and/or parent/legal guardian understand, and agree to proceed. All questions answered. documented in this encounter Plan of Treatment Not on file documented as of this encounter Procedures Procedure Name Priority Date/Time Associated Diagnosis Comments OK AN PROCEDURE PLACEHOLDER Routine 03/28/2020 7:42 AM CDT documented in this encounter Results * OK AN PROCEDURE PLACEHOLDER (03/28/2020 7:42 AM CDT) Narrative Leighton Cosme CRNA - 03/28/2020 7:42 AM CDT Leighton Cosme CRNA ? 03/28/2020 ??7:44 AM Kinza Block Anesthesia Reason for procedure: primary anesthetic Staff: Placed by: MICROBIAL SPECIALIST: Leighton Cosme CRNA Procedure prep: Preprocedure checklist: ??patient identified, patient appropriate for plan, informed consent obtained, surgical consent, risks and benefits discussed, monitors and equipment checked and timeout performed Prep solution: chlorhexadine/alcohol Kinza block: Site: right upper extremity Medication injected through: IV placed preoperatively IV gauge: 22g Procedure details: tourniquet - double cuff, esmarch applied to extremity, tourniquet inflation verified, local anesthetic injected, injection IV removed and patient tolerated procedure well Assessment: Events: patient tolerated procedure well without complications Nj Garcia MD, DDS ANESTHESIA ORDERABLES Callie l Result documented in this encounter Visit Diagnoses Not on filedocumented in this encounter Administered Medications Inactive Administered Medications - up to 3 most recent administrations Medication Order MAR Action Action Date Dose Rate Site ceFAZolin (ANCEF) 2,000 mg/20 mL in sterile water (premix) 2,000 mg 2,000 mg, intravenous, at 400 mL/hr, Administer over 3 Minutes, Once, On 03/28/20 at 0700, For 1 dose, Pre-Op, Administer within 60 minutes of incision., Indications: Prophylaxis, SurgicalIndications:Prophyl axis, Surgical Given 03/28/2020 7:26 AM CDT 2,000 mg Lactated Ringer's (LR) infusion 30 mL/hr, intravenous, Continuous, Starting on Sat03/28/20 at 0700, Pre-Op Rate/Dose Verify 03/28/2020 7:23 AM CDT New Bag 03/28/2020 7:02 AM CDT 30 mL/hr 30 mL/hr lidocaine (XYLOCAINE) 5 mg/mL (0.5 %) preservative free injection intravenous, As needed, Starting on Sat03/28/20 at 0735, Anesthesia Intra-op, Indications: Administration of Local AnesthesiaIndications:Admi nistration of Local Anesthesia Given 03/28/2020 7:35 AM CDT 40 mL midazolam (VERSED) preservative free injection intravenous, Administer over 2 Minutes, As needed, Starting on Sat03/28/20 at 0723, Anesthesia Intra-op Given 03/28/2020 7:23 AM CDT 2 mg propofoL (DIPRIVAN) IV intravenous, Continuous PRN, Starting on Sat03/28/20 at 0732, Anesthesia Intra-op Rate/Dose Change 03/28/2020 7:44 AM CDT 75 mcg/kg/min 30.02 mL/hr New Bag 03/28/2020 7:32 AM CDT 120 mcg/kg/min 48.02 mL/ hr documented in this encounter Care Teams Partition Assembly Machine Operator Relationship Specialty Start Date End Date Santiago Bueno MD [address] [facility] [address] [place] [address] PCP - General 11/30/16 06/09/20 [place] [address] [facility] [address] [place] [address] Rheumatology 07/15/17 documented as of this encounter
--- OUTSIDE RECORDS SUMMARY | 2024-08-29 10:19 | XMS_ITS | Encounter Summary ---
Author Organization 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 Gender Identity Not on file Sexual Orientation Not on file Occupation Industry Job Start Date Job End Date Retired Not on file Not on file Not on file documented as of this encounter Plan of Treatment Not on file documented as of this encounter Procedures Procedure Name Priority Date/Time Associated Diagnosis Comments SCAN - LABS 11/30/2020 3:59 PM CDT SCAN - LABS 11/30/2020 3:58 PM CDT SCAN - LABS 11/30/2020 11:23 AM CDT documented in this encounter Results * SCAN - LABS (11/30/2020 3:59 PM CDT) us Provider Scanning Final Result * SCAN - LABS (11/30/2020 3:58 PM CDT) us Provider Scanning Final Result * SCAN - LABS (11/30/2020 11:23 AM CDT) us Provider Scanning Final Result documented in this encounter Visit Diagnoses Not on filedocumented in this encounter Care Teams Capacitor Pack Press Operator Relationship Specialty Start Date End Date Gabriel Persaud MD [address] [facility] [address] [place] [address] PCP - General Family Medicine 11/29/20 12/01/20 Santiago Bueno MD [address] [facility] [address] [place] [address] PCP - General 12/02/20 10/12/21 [place] [address] [facility] [address] [place] [address] Rheumatology 07/15/17 documented as of this encounter
--- OUTSIDE RECORDS SUMMARY | 2024-08-29 10:19 | XMS_ITS | Encounter Summary ---
Author Organization [facility] Address [address] [facility] [address] [place] [address] Phone Care Team Providers Care Metallurgical Lab Technician Name Role Phone Santiago Bueno MD Primary Care Provider [phone] Gladis Song MD Unavailable Silvia Granger DPT Unavailable [phone] Reason for Referral * Consultation (Routine) - Closed Specialty Diagnoses / Procedures Referred By Valerie florian Referred To Contact Occupational Therapy Diagnoses Bilateral hand pain Lucrecia Gallegos MD [address] [place] [address] Phone: tel: fax: [facility] Occupational Therapy [address] [facility] [address] [place] [address] [place] [address] Phone: tel: fax: Referral ID Status Reason Start Date Expiration Date V isits Requested Visits Authorized [id number] Closed Specialty Services Required 04/28/2020 05/28/2021 24 22 Question Answer PTRFR OT Evaluate and Treat Reason for Visit PT/OT EVAL AND TX Therapy options discussed with patient? Yes Location provided for therapy services is: Patient requested/Patient preferred Please select the performing region: [facility] (All Locations) [[id number]] Please select the performing department: [facility] 6F [[id number]] # of visits: 24 Comments [facility] Order MUST see today Diagnosis: Bilateral hand pain- thick scar tissue and hypersensitivity Surgery: Release Trigger Finger - Thumb - Right and Injection Steroid - Finger - Thumb - Left Frequency/Duration:1-2x/week for 3 months Next MD Visit: 4 weeks OT/PT Evaluate and Treat: Elastomer putty mold for R thumb scar , scar management, pain management and densensitization Orthosis: Reason for Orthosis: FAX: [phone] (CAM location) [phone] (OC location) Reason for Visit * Consultation (Routine) - Closed Specialty Diagnoses / Procedures Referred By Valerie florian Referred To Contact Plastic Surgery Diagnoses Bilateral hand pain Santiago Bueno MD [address] [place] [address] Phone: tel: fax: Lucrecia Gallegos MD [address] [place] [address] Phone: tel: fax: Referral ID Status Reason Start Date Expiration Date V isits Requested Visits Authorized [id number] Closed Specialty Services Required 02/22/2020 09/02/2021 99 99 Encounter Details Date Type Department Care Team (Late st Contact Info) Description 04/28/2020 10:45 AM CDT Office Visit [facility] Surgery [address] [facility] [address] [place] [address] [place] [address] Lucrecia Gallegos MD [address] [place] [address] Bilateral hand pain (Primary Dx) Social History [...] on file 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 She also [...] alberto release, left thumb steroid injection INTERIM HISTORY: She notes that she is having some sharp pains at the right thumb. She has no locking but she does note stiffness. Left side the steroid injection helped and she has no problems there.. 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 No Tinel'sproximally at the carpal tunnel or palmar cutaneous branch of the palmar aspect of the thumb. No locking. Left side has no locking. TEST RESULTS: Not Applicable ASSESSMENT/PLAN: The patient is a 69 y.o. female who has quite a bit of hypertrophic scar as well as some hypersensitivity. I think she would benefit from elastomer putty mold for the scar and pain management and desensitization. 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 Next time we should assess the left side and if that responds well to the steroid injection hopefully she will need further surgery. Lucrecia Gallegos MD Reimbursement Coordinator Division of Plastic Surgery (Hand, Reconstructive and Peripheral Nerve Surgery) Please note this was created using [employer] and may have some risk and compliance analytics director variance. ' documented in this encounter Plan of Treatment Scheduled Referrals Name Type Priority Associated Diagnoses Order Schedule Ambulatory referral order to Occupational Therapy - Outpatient Referral Routine Bilateral hand pain Expected: 05/12/2020 (Approximate), Expires: 04/28/2021 documented as of this encounter Visit Diagnoses Diagnosis Bilateral hand pain- Primary documented in this encounter Discontinued Medications Medication Sig Discontinue Reason Start Date End Da te albuterol HFA (PROVENTIL HFA,VENTOLIN HFA,PROAIR HFA) 90 mcg/actuation inhalerIndications:Bron chospastic Pulmonary Disease Inhale 90 puffs every 4 (four) hours as needed for wheezing or shortness of breath 03/31/2019 04/28/2020 documented as of this encounter Historical Medications * This list may reflect changes made after this encounter. calcium carbonate-vitamin D3 1,250mg (500mg elemental) - 5 mcg (200 units) per tablet Take by mouth daily albuterol HFA (PROVENTIL HFA,VENTOLIN HFA,PROAIR HFA) 90 mcg/actuation inhaler Inhale 90 puffs 03/31/2019 leflunomide (ARAVA) 20 mg tablet Take 20 mg by mouth daily 1 ondansetron ODT (ZOFRAN-ODT) 4 mg disintegrating tablet 11/02/2019 4 added in this encounter Care Teams Metallurgical Lab Technician Relationship Specialty Start Date End Date Santiago Bueno MD [address] [facility] [address] [place] [address] PCP - General 11/30/16 06/09/20 [place] [address] [facility] [address] [place] [address] Rheumatology 07/15/17 Silvia Granger DPT [address] [facility] [address] [place] [address] Physical Therapist Physical Therapy 04/14/20 06/09/20 documented as of this encounter
--- OUTSIDE RECORDS SUMMARY | 2024-08-29 10:19 | XMS_ITS | Encounter Summary ---
Author Organization [facility] Address [address] [place] [address] Phone Care Team Providers Care Manager Operating Name Role Phone Santiago Bueno MD Primary Care Provider [phone] Galdis Song MD Unavailable Silvia Granger DPT Unavailable [phone] Reason for Visit * Reason Comments PT Treatment * Consultation (Routine) - Closed Specialty Diagnoses / Procedures Referred By Valerie florian Referred To Contact Occupational Therapy Diagnoses Bilateral hand pain Lucrecia Gallegos MD [address] [place] [address] Phone: tel: fax: [facility] Occupational Therapy [address] [place] [address] 6th [place] [address] [place] [address] Phone: tel: fax: Referral ID Status Reason Start Date Expiration Date V isits Requested Visits Authorized [id number] Closed Specialty Services Required 04/28/2020 05/28/2021 24 22 Encounter Details Date Type Department Care Team (Late st Contact Info) Description 05/05/2020 10:00 AM CDT Therapy [facility] Occupational Therapy [address] [place] [address] 6th [place] [address] [place] [address] Silvia Granger, DPT [address] 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 female Lucrecia Gallegos MD [address] [place] [address] ICD-9-CM ICD-10-CM 1. Bilateral hand pain 729.5 M79.641 Ambulatory referral order to Occupational Therapy - M79.642 Start time: 9:50 am Diagnosis: Bilateral hand pain- thick scar tissue and hypersensitivity Surgery: Release Trigger Finger - Thumb - Right and Injection Steroid - Finger - Thumb - Left ?? Frequency/Duration:1-2x/week for 3 months Next MD Visit: 4 weeks ?? OT/PT Evaluate and Treat: Elastomer putty mold for R thumb scar , scar management, pain management and densensitization Subjective: Pt reports there is a lump in the scar area from her incision. She was seen by MD last week and instructed to return to therapy for additional scar management techniques. Her thenar eminence is sore and she has pain with opening jars. She occasionally gets pain in her dorsal thumb. [] Mental health status discussed Details: Pain: 0 at rest, pain with thumb motion Objective: Tender to palpation over scar and thickness in scar Treatment provided: Scar massage performed PROM thumb radial abduction - pain into palm and IF Issued pink putty and performed rolling on putty for scar massage - to perform at home Desensitization performed with different textures - issued texture stick with coban and moleskin (the 2 textures that she did not tolerate, other than hook velcro) with instructions to rub over scar area for 30 seconds each, 6 times/day. Encouraged her to also use other textures including clothing, furniture, etc to provide additional textures/desensitizations Vibration performed to scar for desensitization and instructed to perform at home Pt issued handout on desensitization with information on different textures, vibration, tapping - to start with different textures and to progress to additional techniques as able Elastomere putty made for thenar eminence and issued size C compression sleeves to use over putty -instructed in use/care. To use at night to help improve thickness in scar Assessment: Ms. Orantes presents today with tenderness in scar and pain with PROM. Her incision line thickened asit continued to heal since last visit and causes her increased pain as well as difficult with some activities. She tolerates all of scar treatment today and verbalizes understanding of HEP. Plan: Pt to contact therapist in 2 weeks with update on how her scar is doing. Pt may return to therapy for 1-2 more visits if scar does not improve. GOALS: ?? Goal Status / Date Updated Due by: STG1 Pt to be ind with HEP.? Met??04/14/2020 04/15/2020 ? LTG1 Pt to increase AROM R thumb to allow return to all activities.?? Met 04/14/2020 05/01/2020 ??LTG 2 Pt to tolerate grasp and use of R hand for all activities with no pain. New 05/04/2020 06/01/2020 ?? End Time:10:20 am Silvia Granger PT, DPT, CHT documented in this encounter Plan of Treatment Not on file documented as of this encounter Visit Diagnoses Diagnosis Bilateral hand pain- Primary documented in this encounter Orders Outpatient Referral Count Last Ordered Date Ordered Date AMB REFERRAL ORDER TO OCCUPATIONAL THERAPY 1 05/05/2020 documented in this encounter Care Teams Manager Operating Relationship Specialty Start Date End Date Santiago Bueno MD [address] [facility] [address] [place] [address] PCP - General 11/30/16 06/09/20 [place] [id number] [address] Rheumatology 07/15/17 Silvia Granger DPT [id number] [address] Physical Therapist Physical Therapy 04/14/20 06/09/20 documented as of this encounter
--- OUTSIDE RECORDS SUMMARY | 2024-08-29 10:19 | XMS_ITS | Encounter Summary ---
Author Organization [facility] Address [address] [place] [address] Phone Care Team Providers Care Rn Intern Name Role Phone Gladis Song MD Unavailable No, Physician Primary Care Provider [phone] Encounter Details Date Type Department Care Team (Late st Contact Info) Description 06/10/2020 12:45 PM CDT Office Visit 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 Gender Identity Not on file Sexual Orientation Not on file Occupation Industry Job Start Date Job End Date Retired Not on file Not on file Not on file documented as of this encounter Last Filed Vital Signs Vital Sign Reading Time Taken Comments Blood Pressure 118/71 06/10/2020 12:41 PM CDT Pulse 74 06/10/2020 12:41 PM CDT Temperature - - Respiratory Rate - - Oxygen Saturation 98% 06/10/2020 12: 41 PM CDT Inhaled Oxygen Concentration - - Weight 66.6 kg (146 lb 12.8 oz) 020 12:41 PM CDT Height 152.4 cm (5') 06/10/2020 12:41 PM CDT Body Mass Index 28.67 06/10/2020 12:41 PM CDT documented in this encounter Progress Notes * Israel Riley MD - 06/10/2020 12:45 PM CDT Cardiology Clinic Note Patient Name: Chio Orantes : 1950 Date of Service: 06/10/2020 Referring: Dr. Bueno Patient Active Problem List Diagnosis Date Noted ??? Paroxysmal atrial fibrillation (CMS/HCC) 05/21/2018 Priority: High Although this is not well documented, she does carry this diagnosis in her chart. There is concernthat this contributed To at least 1 of [...] 03/03/2020 Added automatically from request for surgery [id number] ??? Tachycardia 09/03/2019 ??? Dyspepsia 09/03/2019 ??? Annual physical exam 06/01/2019 ??? Hypertensive heart disease with chronic systolic congestive heart failure (CMS/HCC) 06/01/2019 ??? 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 (CMS/HCC) 12/26/2018 ??? Neuropathy (CMS/HCC) 12/26/2018 ??? CAD (coronary artery disease) 11/21/2018 Mild coronary artery disease 20-30% narrowing in the circumflex and right coronar artery from 05/2018. ??? Heart failure with preserved ejection fraction (CMS/[facility]) 11/21/2018 LVEDP was 22 from cardiac catheterization [...] 06/03/2015 Class: Chronic ??? Systemic lupus erythematosus ([facility]) 01/16/2014 Class: Chronic SLE ??? Gastroesophageal reflux disease 01/16/2014 Class: Chronic ESOPHAGEAL REFLUX ??? Osteopenia 01/16/2014 Class: Chronic osteopenia ??? Anxiety state 01/16/2014 Class: Chronic ANXIETY STATE NOS ??? Tremor 01/29/2013 Class: Chronic Tremor HISTORY OF PRESENT ILLNESS: It was a pleasure to see Ms. Orantes at the [facility] in follow-up for the above-mentioned cardiovascular issues. Since her last office visit, she has overall been doing well from a cardiovascular perspective. She walks regularly. She denies GRICEL, orthopnea, PND, or palpitations. She continues to have significant abdominal and chest burning pains that she attributes to GERD. She has had extensive GI workup and is currently taking famotidine, but her symptoms are poorly controlled. She follows with Dr. Zapata at [facility]. She checks her BP at home and notes values in the 110s-120s systolic. REVIEW OF SYSTEMS Review of systems per HPI and otherwise all other review of systems negative. MEDICATIONS Current Outpatient Medications: ??? albuterol HFA (PROVENTIL HFA,VENTOLIN HFA,PROAIR HFA) 90 mcg/actuation inhaler, Inhale 90 puffs, Disp: , Rfl: ??? atorvastatin (LIPITOR) 80 mg tablet, TAKE 1 TABLET BY MOUTH EVERY DAY, Disp: 90 tablet, Rfl: 0 ??? beliMUMAB (BENLYSTA) 120 mg recon soln, , Disp: , Rfl: ??? bisoprolol (ZEBETA) 5 mg tablet, TAKE 1 TABLET BY MOUTH EVERY DAY, Disp: 90 tablet, Rfl: 2 ??? calcium carbonate (OS-LEELA) 1,500 mg (600 mg of elemental calcium) tablet, Take 2,000 mg of elemental calcium by mouth every morning , Disp: , Rfl: ??? Eliquis 5 mg tablet, TAKE 1 TABLET BY MOUTH TWICE A DAY (Patient taking differently: Take 5 mg by mouth 2 (two) times a day ), Disp: 60 tablet, Rfl: 4 ??? fluticasone propionate (FLOVENT HFA) 110 mcg/actuation inhaler, Inhale 2 puffs 2 (two) times a day Rinse mouth with water after use. Do not swallow. (Patient taking differently: Inhale 2 puffs asneeded Rinse mouth with water after use. Do not swallow.), Disp: 2 Inhaler, Rfl: 2 ??? folic acid (FOLVITE) 1 mg tablet, Take 1 tablet (1 mg total) by mouth daily. Take one tab daily(Patient taking differently: Take 1 mg by mouth every morning Take one tab daily), Disp: 90 tablet,Rfl: 0 ??? furosemide (LASIX) 20 mg tablet, TAKE 1 TABLET BY MOUTH EVERY DAY (Patient taking differently: Take 20 mg by mouth every morning ), Disp: 90 tablet, Rfl: 3 ??? hydroCHLOROthiazide [...] ), Disp: 180 tablet,Rfl: 0 ??? methotrexate 25 mg/mL syringe, Inject 0.6 mL (15 mg total) under the skin once a week. (Patienttaking differently: Inject 15 mg under the skin once a week Stopped on 03/12/20), Disp: 8 mL, Rfl: 0 ??? methscopolamine (PAMINE FORTE) 5 mg tablet, Take 5 mg by mouth every morning, Disp: , Rfl: ??? montelukast (SINGULAIR) 10 mg tablet, TAKE 1 TABLET BY MOUTH EVERY DAY EVERY NIGHT (Patient taking differently: Take 10 mg by mouth nightly ), Disp: 90 tablet, Rfl: 1 ??? nitroglycerin (NITROSTAT) 0.4 mg SL tablet, May repeat dose every 5 minutes for up to 3 doses total., Disp: 25 tablet, Rfl: 3 ??? ondansetron ODT (ZOFRAN-ODT) 4 mg disintegrating tablet, DISSOLVE 1 TABLET IN MOUTH 10 MINUTES PRIOR TO EACH PREP DOSE NEEDED FOR NAUSEA, Disp: , Rfl: ??? PARoxetine (PAXIL) 20 mg tablet, TAKE 1 TABLET BY MOUTH EVERY DAY (Patient taking differently: Take 10 mg by mouth every morning ), Disp: 90 tablet, Rfl: 1 ??? potassium chloride ER (Klor-Con M20) 20 mEq CR tablet, TAKE 2 TABLETS EVERY MORNING AND 2 TABLETS EVERY EVENING (Patient taking differently: Take 20 mEq by mouth 2 (two) times a day TAKE 2 TABLETS EVERY MORNING AND 2 TABLETS EVERY EVENING), Disp: 360 tablet, Rfl: 3 ??? calcium carbonate-vitamin D3 1,250mg (500mg elemental) - 5 mcg (200 units) per tablet, Take by mouth daily, Disp: , Rfl: ??? cholecalciferol (VITAMIN D3) 2,000 unit tablet, take 1 by Oral route every day (Patient taking differently: Take by mouth every morning ), Disp: 0, Rfl: 0 ??? etodolac (LODINE) 400 mg tablet, , Disp: , Rfl: ??? leflunomide (ARAVA) 20 mg tablet, Take 20 mg by mouth daily, Disp: , Rfl: ??? metoprolol tartrate (LOPRESSOR) 25 mg immediate release tablet, , Disp: , Rfl: PHYSICAL EXAM: BP 118/71 (BP Location: Left arm, Patient Position: Sitting) Pulse 74 Ht 152.4 cm (5') Wt 66.6 kg (146 lb 12.8 oz) LMP (LMP Unknown) SpO2 98% BMI 28.67 kg/m?? General: Well appearing, No pain or [...] 45 (H) 09/03/2019 TSH 1.12 09/03/2019 CHOL 116 06/02/2019 TRIG 63 06/02/2019 HDL 49 (L) 06/02/2019 LDL 53 06/02/2019 LDLCALC 64 05/13/2018 ASSESSMENT AND PLAN This is a 69 y.o. female who presents to Cardiology clinic in follow-up for the following issues: Paroxysmal atrial fibrillation (CMS/HCC) Reported historical diagnosis. She is in sinus rhythm on exam. She continues on bisoprolol and apixaban. She has not had recurrence of CVA symptoms. CAD (coronary artery disease) She had minimal CAD on [facility] in 2018. She continues on atorvastatin and apixaban. Heart failure with preserved ejection fraction (CMS/HCC) Based on LVEDP in 2018. She is warm and dry on examination today. We will continue furosemide 20 mgdaily. Other hyperlipidemia Her last lipid panel was checked in 2019 and was acceptable. We will continue atorvastatin. 1. Paroxysmal atrial fibrillation (CMS/HCC) 2. Coronary artery disease involving [place] heart without angina pectoris, unspecified vessel or lesion type 3. Chronic heart failure with preserved ejection fraction (CMS/HCC) 4. Other hyperlipidemia DISPOSITION We will plan to see Ms. Orantes back in clinic in 1 year time or sooner if needed. Israel Riley MD Fellow 1:11 PM Cosigned by Judah Duggan MD at 06/10/2020 3:24 PM CDT Associated attestation - Judah Duggan MD - 06/10/2020 3:24 PM CDT I have seen and examined the patient. I agree with the findings and plan of care as documented in the resident/fellow's note. documented in this encounter Miscellaneous Notes * Assessment & Plan Note - Israel Riley MD - 06/10/2020 1:10 PM CDT Associated Problem(s): Other hyperlipidemia Her last lipid panel was checked in 2019 and was acceptable. We will continue atorvastatin. * Assessment & Plan Note - Israel Riley MD - 06/10/2020 1:10 PM CDT Associated Problem(s): Heart failure with preserved ejection fraction (CMS/HCC) (HCC) Based on LVEDP in 2018. She is warm and dry on examination today. We will continue furosemide 20 mgdaily. * Assessment & Plan Note - Israel Riley MD - 06/10/2020 1:10 PM CDT Associated Problem(s): CAD (coronary artery disease) She had minimal CAD on [facility] in 2018. She continues on atorvastatin and apixaban. * Assessment & Plan Note - Israel Riley MD - 06/10/2020 1:09 PM CDT Associated Problem(s): Paroxysmal atrial fibrillation (CMS/HCC) (HCC) Reported historical diagnosis. She is in sinus rhythm on exam. She continues on bisoprolol and apixaban. She has not had recurrence of CVA symptoms. documented in this encounter Plan of Treatment Not on file documented as of this encounter Visit Diagnoses Diagnosis Paroxysmal atrial fibrillation (CMS/HCC) (HCC)- Primary Atrial fibrillation Coronary artery disease involving [place] heart without angina pectoris, unspecified vessel or lesion type Chronic heart failure with preserved ejection fraction (CMS/HCC) (HCC) Other hyperlipidemia documented in this encounter Historical Medications * This list may reflect changes made after this encounter. Medication Sig Dispense Quantity Refills Last Filled Start D ate End Date beliMUMAB (BENLYSTA) 120 mg recon solnIndications:System ic Lupus Erythematosus added in this encounter Care Teams Rn Intern Relationship Specialty Start Date End Date No, Physician PCP - General 06/10/20 10/30/20 [place] [id number] [address] Rheumatology 07/15/17 documented as of this encounter
--- OUTSIDE RECORDS SUMMARY | 2024-08-29 10:19 | XMS_ITS | Encounter Summary ---
Author Organization [facility] Address [address] [place] [address] Phone Care Team Providers Care Collarette Separator Name Role Phone Gladis Song MD Unavailable Gabriel Persaud MD Primary Care Provider Santiago Bueno MD Primary Care Provider [phone] Encounter Details Date Type Department Care Team (Late st Contact Info) Description 11/29/2020 Telephone [facility] Cardiology [address] [facility] 8th [place] [address] [place] [address] Judah Duggan MD [address] [place] [address] Social History Tobacco Use Types [...] on file 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 Duggan rectennille; verbalizes understanding. Lab orders faxed to [facility]. Scheduling-please schedule echo and appt with Mary Beth Coulter. * Telephone Encounter - Judah Duggan MD - 11/29/2020 2:00 PM CDT Please check,NTproBNP,cbc,bmp transthoracic echo.Please make appointment with BU[facility] COPPER * Telephone Encounter - Quinton Araujo - 11/29/2020 12:02 PM CDT Patients PMD has been updated in her chart * Telephone Encounter - Dannielle Blackwood RN - 11/29/2020 11:56 AM CDT I spoke to pt. She saw her PMD yesterday (Gabriel Persaud). Records in Care Everywhere. She had her second Covid vaccine about 2 weeks ago. She's noticed a little more SOB with activity. Weight up about 3#. No swelling. B/p was 109/70s at office visit yesterday. Please advise if you want to see her or have her see Mary Beth. * Telephone Encounter - Alexandra Lei - 11/29/2020 11:33 AM CDT Urban Pt has a f/u in June and wants sooner appt because she is having more SOB with Exertion. She went to PCP yesterday and Chest X-Ray they did yesterday didn't show anything. She said that last time she had the SOB was yesterday going from one floor of her house to another. documented in this encounter Plan of Treatment Not on file documented as of this encounter Visit Diagnoses Not on filedocumented in this encounter Care Teams Collarette Separator Relationship Specialty Start Date End Date Gabriel Persaud MD [address] [address] PCP - General Family Medicine 11/29/20 12/01/20 Santiago Bueno MD [address] [place] [address] PCP - General 12/02/20 10/12/21 [place] [address] [facility] [address] [place] [address] Rheumatology 07/15/17 documented as of this encounter
--- OUTSIDE RECORDS SUMMARY | 2024-08-29 10:19 | XMS_ITS | Encounter Summary ---
Author Organization [facility] Address [address] [facility] [address] [place] [address] Phone Care Team Providers Care Ice Seller Name Role Phone Gladis Song MD Unavailable No, Physician Primary Care Provider [phone] Reason for Referral * Consultation (Routine) - Closed Specialty Diagnoses / Procedures Referred By Contac t Referred To Contact Dermatology Diagnoses Rash and other nonspecific skin eruption Fariba Michel MD Phone: tel: fax: [facility] D[facility] [address] [facility] 5th [place] [address] [place] [address] Phone: tel: fax: Referral ID Status Reason Start Date Expiration Date V isits Requested Visits Authorized [id number] Closed Specialty Services Required 06/21/2020 07/21/2021 12 12 Question Answer Please select the performing region: [facility] (All Locations) [[id number]] Please select the performing department: [facility] [[id number]] # of visits: 1 Reason for Visit * Consultation (Routine) - Closed Specialty Diagnoses / Procedures Referred By Contac t Referred To Contact Dermatology Diagnoses Rash and other nonspecific skin eruption Fariba Michel MD Phone: tel: fax: [facility] [address] [facility] [address] 5th [place] [address] [place] [address] Phone: tel: fax: Referral ID Status Reason Start Date Expiration Date V isits Requested Visits Authorized [id number] Closed Specialty Services Required 06/21/2020 07/21/2021 12 12 Encounter Details Date Type Department Care Team (Latest Contact Info) Description 07/04/2020 2:45 PM WATER CONTROL SUPERVISOR Office Visit [facility] Dermatology [address] [place] [address] [address] [place] [address] Fariba Michel MD [address] [place] [address] [address] [place] [address] Photosensitivity (Primary Dx); Rash and other nonspecific skin eruption Social History Tobacco Use Types Packs/Day Years [...] on file Legal Sex Female 12:11 AM WATER CONTROL SUPERVISOR Gender Identity Not on file Sexual Orientation Not on file Occupation Industry Job Start Date Job End Date Retired Not on file Not on file Not on file documented as of this encounter Last Filed Vital Signs Vital Sign Reading Time Taken Comments Blood Pressure - - Pulse - - Temperature 36.1 ??C (97 ??F) 07/04/2020 2:37 PM WATER CONTROL SUPERVISOR Respiratory Rate - - Oxygen Saturation - - Inhaled Oxygen Concentration - - Weight - - Height - - Body Mass Index - - documented in this encounter Progress Notes * Fariba Michel MD - 07/04/2020 2:45 PM CST DERMATOLOGY OUTPATIENT NOTE DATE: 07/04/20 CC: rash RADHA Orantes is a 69 y.o. female with history of SLE who presents today for rash. Concerns today: 1) rash to feet arms chest onset summer months to areas of sun exposure x 2 years, described as itch/burn, attributed to medications per rheumatology (MTX, leflunomide, hydroxychloroquine, HCTZ), currently resolved, associated with chapped cracking lips, improved with vaseline Denies any other non-healing sores, new or changing lesions. Reviewed medications, allergies, past medical history, family history, and social history. Non-contributory unless otherwise specified below. ROS as per HPI Constitutional: No fever or chills Oral: No mouth sores Lymphatic: No swollen lymph nodes MSK: No arthralgias PHYSICAL EXAM: faint post-inflammatory hyperpigmentation to dorsal feet, otherwise no clear rash cheilitis to upper and lower gibson lip Otherwise: GENERAL: Appears well. No acute distress. ORIENTATION: Alert and oriented x3. MOOD/AFFECT: Normal affect. FACE: No abnormalities noted. EARS: No abnormalities noted. SCALP/HAIR: No abnormalities noted. EYES/EYELIDS: No scleral icterus. No abnormalities noted of conjunctiva or eyelids. LIPS/ORAL MUCOSA: No abnormalities noted. NECK: No abnormalities noted. CHEST: No abnormalities noted. BACK: No abnormalities noted. ABDOMEN: No abnormalities noted. EXTREMITIES (RUE): No abnormalities noted. EXTREMITIES (LUE): No abnormalities noted. EXTREMITIES (RLE): No abnormalities noted. EXTREMITIES (LLE): No abnormalities noted. DIGITS/NAILS: No cyanosis, clubbing, or nail abnormality. ASSESSMENT AND PLAN: Photosensitivity 2/2 SLE and medications Advised strict sun protection with physical sunscreen and sun protective clothing. Return to clinic with rash. Skin cancer education was provided, sun protection measures were discussed. Follow-up if any concerning new or changing moles or non healing sores. RTC 1y / earlier if rash Thom Knox MD Dermatology, PGY-2 I have seen the patient with the resident and agree with his note. Dr. Fariba Michel 07/04/20 R CONTROL SUPERVISOR documented in this encounter Plan of Treatment Scheduled Referrals Name Type Priority Associated Diagnoses Orde r Schedule Ambulatory referral to Dermatology Outpatient Referral Routine Rash and other nonspecific skin eruption Expected: 07/05/2020 (Approximate), Expires: 06/21/2021 documented as of this encounter Visit Diagnoses Diagnosis Photosensitivity- Primary Acute dermatitis due to solar radiation Rash and other nonspecific skin eruption documented in this encounter Care Teams Ice Seller Relationship Specialty Start Date End Date No, Physician PCP - General 06/10/20 10/30/20 [place] [id number] [address] Rheumatology 07/15/17 documented as of this encounter
--- OUTSIDE RECORDS SUMMARY | 2024-08-29 10:19 | XMS_ITS | Encounter Summary ---
Author Organization [facility] Address [address] [place] [address] Phone Care Team Providers Care Computed Tomography Technician Name Role Phone Gladis Song MD Unavailable Santiago Bueno MD Primary Care Provider [phone] Reason for Referral * Cardiology (Routine) - Closed Specialty Diagnoses / Procedures Referred By Contac t Referred To Contact Diagnoses Paroxysmal atrial fibrillation (CMS/HCC) (HCC) Procedures [facility] Mobile Cardiac Telemetry Event Monitor Judah Duggan MD Phone: tel: fax: [address] [address] Referral ID Status Reason Start Date Expiration Date Visits Re quested Visits Authorized [id number] Closed 01/19/2021 02/18/2022 1 1 Encounter Details Date Type Department Care Team (Late st Contact Info) Description 01/19/2021 Orders Only [facility] Cardiology [address] 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 Gender Identity Not on file Sexual Orientation Not on file Occupation Industry Job Start Date Job End Date Retired Not on file Not on file Not on file documented as of this encounter Plan of Treatment Not on file documented as of this encounter Results * [facility] Mobile Cardiac Telemetry Event Monitor (01/19/2021 3:24 PM CDT) Anatomical Region Laterality Modality Electrocardiogra phy 01/19/2021 12:0 0 PM CDT Narrative 02/21/2021 9:39 PM CDT Patient name: Chio Orantes Date of test: 01/19/2021 Type of Test: Event Monitor ([facility]) Hospital #: [id number] ?Location: [facility] Heart and Vascular : 1950 ??Age: 70 ??Sex: F Ref Physician(s): JUDAH DUGGAN MD Interpreted by: Doc Cruz MD myZamana Tech: AMBROCIO Estrella Diagnosis: Monitoring Service: [employer] Reason for Test: I48.91: Unspecified atrial fibrillation Monitor Used: Body [facility] ([facility]) ?? Enrollment Period: January 26 - Feb 20, 2021 [employer] [place] comments: Number of Transmissions Sent During Enrollment [...] The full scanned/data report is available in [employer]ientia. labeled MONITOR STRIPS PDF . This study [...] 01/19/2021 Type of Test: Event Monitor ([facility]) [facility] #: [id number] Location: [facility] Heart and Vascular : 1950 Age: 70 Sex: F Ref Physician(s): JUDAH DUGGAN MD Interpreted by: Doc Cruz MD myZamana Tech: AMBROCIO Estrella Diagnosis: Monitoring Service: [employer] Reason for Test: I48.91: Unspecified atrial fibrillation Monitor Used: Body [facility] ([facility]) Enrollment Period: January 26 - Feb 20, 2021 [employer] [place] comments: Number of Transmissions Sent During Enrollment [...] The full scanned/data report is available in [employer]ient[employer]. labeled MONITOR STRIPS PDF . This study [...] atrial fibrillation (CMS/HCC) (HCC)- Primary Atrial fibrillation Paroxysmal atrial fibrillation (CMS/HCC) (HCC) Atrial fibrillation documented in this encounter Care Teams Computed Tomography Technician Relationship Specialty Start Date End Date Santiago Bueno MD [address] [facility] [address] [place] [address] PCP - General 12/02/20 10/12/21 [place] [address] [facility] [address] [place] [address] Rheumatology 07/15/17 documented as of this encounter
--- OUTSIDE RECORDS SUMMARY | 2024-08-29 10:19 | XMS_ITS | Encounter Summary ---
Author Organization [facility] Address [address] [place] [address] Phone Care Team Providers Care Basket Person Name Role Phone Santiago Bueno MD Primary Care Provider [phone] Gladis Song MD Unavailable Silvia Granger DPT Unavailable [phone] Reason for Visit * Consultation (Routine) - Closed Specialty Diagnoses / Procedures Referred By Valerie t Referred To Contact Plastic Surgery Diagnoses Bilateral hand pain Santiago Bueno MD [address] [place] [address] Phone: tel: fax: Lucrecia Gallegos MD [address] [place] [address] Phone: tel: fax: Referral ID Status Reason Start Date Expiration Date V isits Requested Visits Authorized [id number] Closed Specialty Services Required 02/22/2020 09/02/2021 99 99 Encounter Details Date Type Department Care Team (Late st Contact Info) Description 04/14/2020 9:45 AM CDT Office Visit [facility] Surgery [address] 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 She also [...] thumb steroid injection INTERIM HISTORY: She notes no issues and feels that the injection helped the left side. On the right side she is pleased with her progress and notes no locking. PHYSICAL EXAMINATION: On examination the right thumb is healing well with a little bit of peeling skin. Left side does not have obvious locking and is less tender to palpation. She has little to no swelling and has good range of motion of the fingers. TEST RESULTS: Not Applicable ASSESSMENT/PLAN: The patient is a 69 y.o. female who is doing quite well. She should wash daily and moisturize and Iwill see her in 2 weeks at that time we will check pinch and counter supply worker and if she is doing well she may be able to follow-up as needed she was cautioned to continue to take it easy for the next 2 weeks until we make sure she is entirely healed. Lucrecia Gallegos MD Sales Team Recruiter Division of Plastic Surgery (Hand, Reconstructive and Peripheral Nerve Surgery) Please note this was created using MModal and may have some airborne weapons technical manager variance. documented in this encounter Plan of Treatment Not on file documented as of this encounter Visit Diagnoses Diagnosis Bilateral hand pain- Primary documented in this encounter Historical Medications * This list may reflect changes made after this encounter. etodolac (LODINE) 400 mg tablet 01/18/2021 metoprolol tartrate (LOPRESSOR) 25 mg immediate release tablet Take 25 mg by mouth daily 01/18/2021 added in this encounter Care Teams Basket Person Relationship Specialty Start Date End Date Santiago Bueno MD [address] [facility] [address] [place] [address] PCP - General 11/30/16 06/09/20 [place] [address] [facility] [address] [place] [address] Rheumatology 07/15/17 Silvia Granger DPT [id number] [facility] [address] [place] [address] Physical Therapist Physical Therapy 04/14/20 06/09/20 documented as of this encounter
--- OUTSIDE RECORDS SUMMARY | 2024-08-29 10:19 | XMS_ITS | Encounter Summary ---
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 Gender Identity Not on file Sexual Orientation Not on file Occupation Industry Job Start Date Job End Date Retired Not on file Not on file Not on file documented as of this encounter Plan of Treatment Not on file documented as of this encounter Procedures Procedure Name Priority Date/Time Associated Diagnosis Comments SCAN - LABS 12/02/2020 10:12 AM CDT documented in this encounter Results * SCAN - LABS (12/02/2020 10:12 AM CDT) us Provider Scanning Final Result documented in this encounter Visit Diagnoses Not on filedocumented in this encounter Care Teams Aerodynamics Teacher Relationship Specialty Start Date End Date Santiago Bueno MD [address] [place] [address] PCP - General 12/02/20 10/12/21 [place] [address] [facility] [address] [place] [address] Rheumatology 07/15/17 documented as of this encounter
--- OUTSIDE RECORDS SUMMARY | 2024-08-29 10:19 | XMS_ITS | Encounter Summary ---
Author Organization [facility] Healthcare Address [address] [place] [address] Care Team Providers Care Medical Physics Teacher Name Role Phone Santiago Bueno MD Primary Care Provider [phone] Gladis Song MD Unavailable Encounter Details Date Type Department Care Team (Late st Contact Info) Description 03/23/[address] 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 Order placed. Order and label printed for Location: B documented in this encounter Miscellaneous Notes * Addendum Note - Natalee Hernandez - 03/23/2020 8:37 AM CDTAddended by: NATALEE HERNANDEZ on: 03/24/2020 07:30 PM Modules accepted: Orders documented in this encounter Plan of Treatment Not on file documented as of this encounter Results * COVID-19 Coronavirus RNA Nasopharyngeal (03/24/2020 7:30 PM CDT) COVID-19 RNA Not Detected [facility] Comment: Interpretive Data Testing performed at [facility] Molecular Infectious Disease Laboratory. The 2018-Novel Coronavirus Assay (COVID-19) Real Time RT-PCR assay is for in vitro diagnostic use under FDA emergency use authorization only. A negative RT-PCR result does not preclude infection with COVID-19 and should not be used as the sole basis for treatment or other patient management decisions. Additional sample types have been validated according to CLIA regulations. ?? Current Interpretive Data was last revised on 2019. Nasopharyngeal 03/24/2020 7: 30 PM CDT 03/24/2020 9:08 PM CDT Narrative [facility] STALE[facility] - 03/25/2020 3:26 AM CDT Is the patient experiencing any symptoms consistent with COVID (eg. Fever, cough, shortness of breath)?->No What is the reason for testing?->Screening prior to scheduled (>12 hr) surgery or procedure us Lucrecia Gallegos MD LAB MICROBIOLOGY - GENERAL ORDRafa BROWN Final Result [facility] Department [place] [address] documented in this encounter Visit Diagnoses Diagnosis Pre-op testing- Primary Unspecified pre-operative examination Pre-op testing Unspecified pre-operative examination documented in this encounter Care Teams Medical Physics Teacher Relationship Specialty Start Date End Date Santiago Bueno MD [address] [place] [address] PCP - General 11/30/16 06/09/20 [place] [address] [facility] [address] [place] [address] Rheumatology 07/15/17 documented as of this encounter
--- OUTSIDE RECORDS SUMMARY | 2024-08-29 10:19 | XMS_ITS | Encounter Summary ---
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 Gender Identity Not on file Sexual Orientation Not on file Occupation Industry Job Start Date Job End Date Retired Not on file Not on file Not on file documented as of this encounter Plan of Treatment Not on file documented as of this encounter Procedures Procedure Name Priority Date/Time Associated Diagnosis Comments COVID-19 CORONAVIRUS RNA Routine 03/24/2020 7:30 PM CDT Pre-op testing documented in this encounter Results * COVID-19 Coronavirus RNA Nasopharyngeal (03/24/2020 7:30 PM CDT) COVID-19 RNA Not Detected [facility] Comment: Interpretive Data Testing performed at [facility] Molecular Infectious Disease Laboratory. The 2019-Novel Coronavirus Assay (COVID-19) Real Time RT-PCR assay [...] PM CDT 03/24/2020 9:08 PM CDT N[facility]ative [facility] - 03/25/2020 3:26 AM CDT Is the patient experiencing any symptoms consistent with COVID (eg. Fever, cough, shortness of breath)?->No What is the reason for testing?->Screening prior to scheduled (>12 hr) surgery or procedure Lucrecia Gallegos MD LAB MICROBIOLOGY - GENERAL SONYA BROWN Final Result [facility] Department [place] [address] documented in this encounter Visit Diagnoses Diagnosis Pre-op testing Unspecified pre-operative examination documented in this encounter Care Teams Geographic Analyst Relationship Specialty Start Date End Date aSntiago Bueno MD [address] [place] [address] PCP - General 11/30/16 06/09/20 [place] [address] [place] [address] Rheumatology 07/15/17 documented as of this encounter
--- OUTSIDE RECORDS SUMMARY | 2024-08-29 10:20 | XMS_ITS | Encounter Summary ---
Author Organization [facility] Address [address] [place] [address] Phone Care Team Providers Care Adobe Flex Developer Name Role Phone Santiago Bueno MD Primary Care Provider [phone] Gladis Song MD Unavailable Encounter Details Date Type Department Care Team (Late st Contact Info) Description 09/25/2019 Telephone [facility] Cardiology [address] [facility] 8th [place] [address] [place] [address] Judah Duggan MD [address] [place], [place] [id number] Social History Tobacco Use Types Packs/Day Years Used Date Smoking Tobacco: Never Smokeless Tobacco: Never Alcohol Use Standard Drinks/Week Comments Yes 0 (1 standard drink = 0.6 oz pur e alcohol) rare wine PHQ-2 Answer Date Recorded PHQ-2 Score 0 04/24/2019 Comments No Sex and Gender Information Value Date Recorded Sex Assigned at Not on file Legal Sex Female 12:11 AM ORDNANCE ARTIFICER HELPER Gender Identity Not on file Sexual Orientation Not on file Occupation Industry Job Start Date Job End Date Retired Not on file Not on file Not on file documented as of this encounter Miscellaneous Notes * Telephone Encounter - Dannielle Blackwood RN - 09/28/2019 8:59 AM CST I spoke to pt regarding Dr. Duggan rectennille; verbalizes understanding. Script sent to rx ANCE ARTIFICER HELPER * Telephone Encounter - Judah Duggan MD - 09/26/2019 12:59 PM CST She can be off eliquis 48 hours. I recommend she start bisoprolol 5 mg every day. This is instead of metoprolol,which she was intolerant to. ANCE ARTIFICER HELPER * Telephone Encounter - Dannielle Blackwood RN - 09/25/2019 4:25 PM CST Pt having colonoscopy/endoscopy in October. Can she be off eliquis prior? If so, how many days? States she is doing ok off the metoprolol, but her HR is 100-110s. Please advise ANCE ARTIFICER HELPER * Telephone Encounter - Dannielle Blackwood RN - 09/25/2019 4:10 PM CST lmovm to call our office ANCE ARTIFICER HELPER * Telephone Encounter - Dick Patricio - 09/25/2019 3:16 PM CST RAPHAEL PT REQ CALL BACK REGARDING UPCOMING PROCEDURE,PLS CALL ANCE ARTIFICER HELPER documented in this encounter Plan of Treatment Not on file documented as of this encounter Visit Diagnoses Not on filedocumented in this encounter Care Teams Adobe Flex Developer Relationship Specialty Start Date End Date Santiago Bueno MD [address] [place] [address] PCP - General 11/30/16 06/09/20 [place] [address] [facility] [address] [place] [address] Rheumatology 07/15/17 documented as of this encounter
--- OUTSIDE RECORDS SUMMARY | 2024-08-29 10:20 | XMS_ITS | Encounter Summary ---
Author Organization [facility] Address [address] [facility] [address] [place] [address] Care Team Providers Care Airplane Pilot Name Role Phone Santiago Bueno MD Primary Care Provider [phone] Gladis Song MD Unavailable Reason for Referral * Consultation (Routine) - Closed Specialty Diagnoses / Procedures Referred By Valerie florian Referred To Contact Gastroenterology Diagnoses Gastroesophageal reflux disease without esophagitis Dyspepsia Santiago Bueno MD Phone: tel: fax: [facility] [id number] [place] [address] Phone: tel: fax: Referral ID Status Reason Start Date Expiration Date V isits Requested Visits Authorized [id number] Closed Specialty Services Required 09/03/2019 03/14/2021 1 1 Question Answer Please select the performing region: External Order [171] To loc/pos [facility] [[id number]] Comments Dr. Perera for consult and likely will also need EGD NGED INSTRUMENT REPAIRER Reason for Visit * Reason Comments Hypertension GERD Encounter Details Date Type Department Care Team (Late st Contact Info) Description 09/03/2019 11:15 AM STRINGED INSTRUMENT REPAIRER Office Visit [facility] [address] [facility] [address] [place] [address] Santiago Bueno MD [address] [place] [address] Dyspepsia (Primary Dx); Gastroesophageal reflux disease without esophagitis; Tachycardia Social History Tobacco Use Types Packs/Day Years Used Date Smoking Tobacco: Never Smokeless Tobacco: Never Alcohol Use Standard Drinks/Week Comments Yes 0 (1 standard drink = 0.6 oz pur e alcohol) rare wine PHQ-2 Answer Date Recorded PHQ-2 Score 0 04/24/2019 Comments No Sex and Gender Information Value Date Recorded Sex Assigned at Not on file Legal Sex Female 12:11 AM STRINGED INSTRUMENT REPAIRER Gender Identity Not on file Sexual Orientation Not on file Occupation Industry Job Start Date Job End Date Retired Not on file Not on file Not on file documented as of this encounter Last Filed Vital Signs Vital Sign Reading Time Taken Comments Blood Pressure 110/70 09/03/2019 11:35 AM STRINGED INSTRUMENT REPAIRER Pulse 108 09/03/2019 11:35 AM STRINGED INSTRUMENT REPAIRER Temperature - - Respiratory Rate - - Oxygen Saturation 96% 09/03/2019 11:35 AM STRINGED INSTRUMENT REPAIRER Inhaled Oxygen Concentration - - Weight 65.3 kg (144 lb) 09/03/2019 11:35 AM STRINGED INSTRUMENT REPAIRER Height 152.4 cm (5') 09/03/2019 11:35 AM STRINGED INSTRUMENT REPAIRER Body Mass Index 28.12 09/03/2019 11:35 AM STRINGED INSTRUMENT REPAIRER documented in this encounter Ordered Prescriptions Prescription Sig Dispense Quantity Refills Last Filled Start Date End Date dexlansoprazole (DEXILANT) 60 mg capsule Take 1 capsule (60 mg total) by mouth daily 30 capsule 5 09/03/2019 0 documented in this encounter Progress Notes * Santiago Bueno MD - 09/03/2019 11:15 AM CST Subjective/Objective Patient ID: Chio Orantes [: [id number]] Chief Complaint Hypertension and GERD Chio is a 68 y.o. female who returns today for a problem-based visit. Occasional acid brash, rare regurgitation. Coffee makes it worse sometimes. Creamy soups trigger it. All fried foods and marinara also cause exacerbation. Daily Protonix has not helped. She though her Sx improved after she quit taking metoprolol, but now they're back and as bad as ever. Has a remote history of treatment for H pylori. RUQ US and HIDA both done recently to evaluated for other causes of upper abdominal pain -- normal in both cases. Last EGD was about 2 years ago and was normal. Next colonoscopy due in 2020. Also concerned about rapid heartbeat -- which is just noted when checking her pulse or BP but is otherwise asymptomatic. It is persistent intermediate manager, and regular. Review of Systems Constitutional: Negative for chills, fatigue and fever. HENT: Negative for ear pain and sore throat. Eyes: Negative for pain and redness. Respiratory: Negative for cough and shortness of breath. Cardiovascular: Negative for chest pain, palpitations and leg swelling. Gastrointestinal: Positive for abdominal pain. Negative for abdominal distention, constipation, diarrhea and nausea. Endocrine: Negative for cold intolerance, heat intolerance, polydipsia and polyphagia. Genitourinary: Negative for dysuria, hematuria and urgency. Musculoskeletal: Negative for arthralgias and myalgias. Skin: Negative for pallor and rash. Neurological: Negative for speech difficulty and headaches. Hematological: Negative for adenopathy. Does not bruise/bleed easily. Psychiatric/Behavioral: Negative for confusion and self-injury. Blood pressure 110/70, pulse 108, height 152.4 cm (5'), weight 65.3 kg (144 lb), SpO2 96 %, not currently . Physical Exam Vitals signs reviewed. Constitutional: General: She is not in acute distress. HENT: Head: Normocephalic. Mouth/Throat: Pharynx: No oropharyngeal exudate. Eyes: General: No scleral icterus. Conjunctiva/sclera: Conjunctivae normal. Neck: Musculoskeletal: Neck supple. Thyroid: No thyromegaly. Vascular: No JVD. Cardiovascular: Rate and Rhythm: Normal rate and regular rhythm. Heart sounds: No friction rub. Pulmonary: Effort: Pulmonary effort is normal. Breath sounds: Normal breath sounds. Abdominal: General: Bowel sounds are normal. Palpations: Abdomen is soft. Tenderness: There is no tenderness. Lymphadenopathy: Cervical: No cervical adenopathy. Skin: General: Skin is warm and dry. Neurological: Mental Status: She is alert and oriented to person, place, and time. Psychiatric: Behavior: Behavior normal. Assessment/Plan ?? Try changing to Dexilant ?? Referral to Dr. Perera -- likely needs repeat EGD ?? Check thyroid tests to see if hyperthyroid (causing tachycardia) ?? Check labs as noted ?? Would re-test for H pylori but via EGD -- don't think she would tolerate being off PPI for long enough to do a breath test ?? Continue with rheumatology follow up for SLE (stable). Diagnoses and all orders for this visit: Dyspepsia (R10.13) (Primary) - CBC with auto differential; Future - Comprehensive metabolic panel; Future - Amylase; Future - Ambulatory referral to Gastroenterology Gastroesophageal reflux disease without esophagitis (K21.9) - Ambulatory referral to Gastroenterology - TSH reflex to free T4; Future Tachycardia (R00.0) Other orders - dexlansoprazole (DEXILANT) 60 mg capsule; Take 1 capsule (60 mg total) by mouth daily NGED INSTRUMENT REPAIRER documented in this encounter Miscellaneous Notes * Assessment & Plan Note - Kel Kraus MA - 09/03/2019 11:50 AM STRINGED INSTRUMENT REPAIRER Associated Problem(s): BMI 28.0-28.9,adult BMI Follow-up includes: nutrition counseling, exercise counseling and education provided. NGED INSTRUMENT REPAIRER documented in this encounter Plan of Treatment Scheduled Referrals Name Type Priority Associated Diagnoses Order Schedule Ambulatory referral to Gastroenterology Outpatient Referral Routine Gastroesophageal reflux disease without esophagitis Dyspepsia Ordered: 09/03/2019 documented as of this encounter Procedures Procedure Name Priority Date/Time Associated Diagnosis Comments THYROID FUNCTION CASCADE Routine 09/03/2019 12:26 PM STRINGED INSTRUMENT REPAIRER Gastroesophageal reflux disease without esophagitis CBC WITH AUTO DIFFERENTIAL Routine 09/03/2019 12:24 PM STRINGED INSTRUMENT REPAIRER Dyspepsia AMYLASE Routine 09/03/2019 12:24 PM STRINGED INSTRUMENT REPAIRER Dyspepsia COMPREHENSIVE METABOLIC PANEL Routine 09/03/2019 12:24 PM STRINGED INSTRUMENT REPAIRER Dyspepsia documented in this encounter Results * TSH reflex to free T4 (09/03/2019 12:26 PM STRINGED INSTRUMENT REPAIRER) TSH 1.12 0.40 - 4.50 mIU/L [facility] Blood specimen (specimen) 09/03/2019 12:26 PM STRINGED INSTRUMENT REPAIRER 09/04/2019 3:22 AM STRINGED INSTRUMENT REPAIRER Narrative Resulting Agency Comment Performing Organization Information: ?Site ID: [place] ?Name: Liza Smith ?Address: [facility] [place] [id number] ?Director: Sukhdev Beverly D.O., MPH Santiago Bueno MD LAB BLOOD ORDERABLES Final Res ult Performing Organization Address [facility]/ZIP Co de Phone Number VI[place] Alatorre * Amylase (09/03/2019 12:24 PM STRINGED INSTRUMENT REPAIRER) Amylase 66 21 - 101 U/L [facility] [place] M Blood specimen (specimen) 09/03/2019 12:24 PM STRINGED INSTRUMENT REPAIRER 09/04/2019 3:23 AM STRINGED INSTRUMENT REPAIRER Narrative Resulting Agency Comment Performing Organization Information: ?Site ID: [place] ?Name: Liza Smith ?Address: [facility] [place] [id number] ?Director: Sukhdev Beverly D.O., MPH us Santiago Bueno MD LAB BLOOD ORDERABLES Final Res ult Performing Organization Address City/[facility]/ZIP Co de Phone Number [place] M Alatorre * (ABNORMAL) Comprehensive metabolic panel (09/03/2019 12:24 PM STRINGED INSTRUMENT REPAIRER) Glucose 84 65 - 99 mg/dL [facility] Comment: ? Fasting reference interval BUN 17 7 - 25 mg/dL [facility] [place] Creatinine 0.85 0.60 - 0.93 mg/dL [facility] Comment: For patients >49 years of age, the reference limit for Creatinine is approximately 13% higher for people identified as -Micronesian. eGFR NON-AFR. CHINESE 69 > OR = 60 mL/min/1 .73m2 [facility] [place] EGFR 80 > OR = 60 mL/min/1 .73m2 [facility] [place] BUN/creat ratio NOT APPLICABLE 6 - 22 (calc) [facility] [place] Sodium 143 135 - 146 mmol/L [facility] [place] Potassium, pl 3.4(L) 3.5 - 5.3 mmol/L [facility] [place] Chloride 103 98 - 110 mmol/L [facility] [place] CO2 26 20 - 32 mmol/L [facility] [place] Calcium 9.7 8.6 - 10.4 mg/dL [facility] [place] Protein, sr 6.8 6.1 - 8.1 g/dL [facility] [place] Albumin 4.2 3.6 - 5.1 g/dL [facility] [place] GLOBULIN 2.6 1.9 - 3.7 g/dL (calc) [facility] [place] Alb/glob ratio 1.6 1.0 - 2.5 (calc) [facility] [place] Bilirubin, total 0.7 0.2 - 1.2 mg/dL [facility] [place] Alk phos 58 33 - 130 U/L [facility] [place] AST 45(H) 10 - 35 U/L [facility] [place] ALT (SGPT) 40(H) 6 - 29 U/L [facility] [place] Blood specimen (specimen) 09/03/2019 12:24 PM STRINGED INSTRUMENT REPAIRER 09/04/2019 3:23 AM STRINGED INSTRUMENT REPAIRER Narrative Resulting Agency Comment Performing Organization Information: ?Site ID: [place] ?Name: [facility] ?Address: [address] [place] [address] ?Director: Sukhdev Beverly D.O., MPH us Santiago Bueno MD LAB BLOOD ORDERABLES Final Res ult [facility] [place] * (ABNORMAL) CBC with auto differential (09/03/2019 12:24 PM STRINGED INSTRUMENT REPAIRER) WBC 4.8 3.8 - 10.8 Thousand/u L [facility] [place] RBC, POC 4.61 3.80 - 5.10 Million/uL [facility] [place] Hgb 13.4 11.7 - 15.5 g/dL [facility] [place] Hct 43.3 35.0 - 45.0 % [facility] [place] MCV 93.9 80.0 - 100.0 fL [facility] [place] MCH 29.1 27.0 - 33.0 pg [facility] [place] MCHC 30.9(L) 32.0 - 36.0 g/dL [facility] [place] Rdw 14.8 11.0 - 15.0 % [facility] [place] Platelets 223 140 - 400 Thousand/u L [facility] [place] MPV 10.5 7.5 - 12.5 fL [facility] [place] Neutrophils, abs 2,078 1,500 - 7,800 cells/uL [facility] [place] Lymphocytes, abs 1,618 850 - 3,900 cells/uL [facility] [place] Monocyte abs 922 200 - 950 cells/uL [facility] [place] Eosinophils, abs 101 15 - 500 cells/uL [facility] [place] Basophils, abs 82 0 - 200 cells/uL [facility] [place] Neutrophils 43.3 % [facility] [place] Lymphocyte pct 33.7 % [facility] [place] Monocytes 19.2 % [facility] [place] Eosinophils 2.1 % [facility] [place] Basophils 1.7 % [facility] [place] Blood specimen (specimen) 09/03/2019 12:24 PM STRINGED INSTRUMENT REPAIRER 09/04/2019 3:23 AM STRINGED INSTRUMENT REPAIRER Narrative Resulting Agency Comment Performing Organization Information: ?Site ID: [place] ?Name: [facility] ?Address: [address] [place] [address] [place] [address] ?Director: Sukhdev Beverly D.O., MPH us Santiago Bueno MD LAB BLOOD ORDERABLES Final Res ult [facility] [place] VICTOR M documented in this encounter Visit Diagnoses Diagnosis Dyspepsia- Primary Dyspepsia and other specified disorders of function of stomach Gastroesophageal reflux disease without esophagitis Esophageal reflux Tachycardia Unspecified tachycardia documented in this encounter Discontinued Medications Medication Sig Discontinue Reason Start Date End Da te pantoprazole DR (PROTONIX) 40 mg EC tablet Take 1 tablet (40 mg total) by mouth daily 11/18/2018 09/03/2019 documented as of this encounter Care Teams Airplane Pilot Relationship Specialty Start Date End Date Santiago Bueno MD [address] [place] [address] PCP - General 11/30/16 06/09/20 [place] [address] [facility] [address] [place] [address] Rheumatology 07/15/17 documented as of this encounter
--- OUTSIDE RECORDS SUMMARY | 2024-08-29 10:20 | XMS_ITS | Encounter Summary ---
Author Organization [facility] Address [address] [place] [address] Phone Care Team Providers Care Insulation Worker Apprentice Name Role Phone Santiago Bueno MD Primary Care Provider [phone] Gladis Song MD Unavailable Encounter Details Date Type Department Care Team (Latest Contact Info) Description 07/03/2019 Orders Only [facility] Scanning, Provider [...] on file Legal Sex Female 12:11 AM FLASK FITTER Gender Identity Not on file Sexual Orientation Not on file Occupation Industry Job Start Date Job End Date Retired Not on file Not on file Not on file documented as of this encounter Plan of Treatment Not on file documented as of this encounter Procedures Procedure Name Priority Date/Time Associated Diagnosis Comments CARDIOLOGY DOCUMENT SCAN 07/03/2019 documented in this encounter Results * SCAN - CARDIOLOGY (07/03/2019) Anatomical Region Laterality Modality Other us Provider Scanning CV CARDIAC SERVICES PROCEDURES Final Result documented in this encounter Visit Diagnoses Not on filedocumented in this encounter Care Teams Insulation Worker Apprentice Relationship Specialty Start Date End Date Santiago Bueno MD [address] [place] [address] PCP - General 11/30/16 06/09/20 [place] [address] [facility] [address] [place] [address] Rheumatology 07/15/17 documented as of this encounter
--- OUTSIDE RECORDS SUMMARY | 2024-08-29 10:20 | XMS_ITS | Encounter Summary ---
Author Organization [facility] Address [address] [place] [address] Phone Care Team Providers Care Ward Aide Name Role Phone Santiago Bueno MD Primary Care Provider [phone] Gladis Song MD Unavailable Encounter Details Date Type Department Care Team (Late st Contact Info) Description 07/03/2019 Telephone [facility] Cardiology [address] [facility] [address] 8th [place] [address] [place] [address] Judah Duggan MD [address] [place], [place] [id number] Social History Tobacco Use Types Packs/Day Years Used Date Smoking Tobacco: Never Smokeless Tobacco: Never Alcohol Use Standard Drinks/Week Comments Yes 0 (1 standard drink = 0.6 oz pur e alcohol) rare wine PHQ-2 Answer Date Recorded PHQ-2 Score 0 04/24/2019 Comments No Sex and Gender Information Value Date Recorded Sex Assigned at Not on file Legal Sex Female 12:11 AM MEDICAL EQUIPMENT REPAIRER Gender Identity Not on file Sexual Orientation Not on file Occupation Industry Job Start Date Job End Date Retired Not on file Not on file Not on file documented as of this encounter Miscellaneous Notes * Telephone Encounter - Deyanira Rodarte RN - 07/03/2019 3:19 PM CDT I reviewed with the patient. * Telephone Encounter - Deyanira Rodarte RN - 07/03/2019 3:18 PM CDT ----- Message from Judah Duggan MD sent at 07/03/2019 3:05 PM CDT ----- Blood pressure is okay. No change in medications at this time. ----- Message ----- From: Deyanira Rodarte RN Sent: 07/03/2019 12:53 PM CDT To: Judah Duggan MD BP for your review ----- Message ----- From: Sabine Kraft Sent: 07/03/2019 12:46 PM CDT To: , # documented in this encounter Plan of Treatment Not on file documented as of this encounter Visit Diagnoses Not on filedocumented in this encounter Care Teams Ward Aide Relationship Specialty Start Date End Date Santiago Bueno MD [address] [facility] [address] [place] [address] PCP - General 11/30/16 06/09/20 [place] [address] [facility] [address] [place] [address] Rheumatology 07/15/17 documented as of this encounter
--- OUTSIDE RECORDS SUMMARY | 2024-08-29 10:20 | XMS_ITS | Encounter Summary ---
Author Organization [facility] Address [address] [place] [address] Phone Care Team Providers Care Bag Turner Name Role Phone Santiago Bueno MD Primary Care Provider [phone] Gladis Song MD Unavailable Encounter Details Date Type Department Care Team (Late st Contact Info) Description 09/28/2019 Orders Only [facility] Cardiology [address] [facility] [address] 8th [place] [address] [place] [address] Judah Duggan MD [address] [place] [address] Social History Tobacco Use Types Packs/Day Years Used Date Smoking Tobacco: Never Smokeless Tobacco: Never Alcohol Use Standard Drinks/Week Comments Yes 0 (1 standard drink = 0.6 oz pur e alcohol) rare wine PHQ-2 Answer Date Recorded PHQ-2 Score 0 04/24/2019 Comments No Sex and Gender Information Value Date Recorded Sex Assigned at Not on file Legal Sex Female 12:11 AM PATIENT ACCESS ASSOCIATE Gender Identity Not on file Sexual [...] total) by mouth daily 30 tablet 6 09/28/2019 03/22/2020 documented in this encounter Plan of Treatment Not on file documented as of this encounter Visit Diagnoses Not on filedocumented in this encounter Care Teams Bag Turner Relationship Specialty Start Date End Date Santiago Bueno MD [address] [facility] [address] [place] [address] PCP - General 11/30/16 06/09/20 [place] [address] [facility] [address] [place] [address] Rheumatology 07/15/17 documented as of this encounter
--- OUTSIDE RECORDS SUMMARY | 2024-08-29 10:20 | XMS_ITS | Encounter Summary ---
Author Organization [facility] Address [address] [place] [address] Phone Care Team Providers Care Beef Grader Name Role Phone Santiago Bueno MD Primary Care Provider [phone] Gladis Song MD Unavailable Silvia Granger DPT Unavailable [phone] Encounter Details Date Type Department Care Team (Late st Contact Info) Description 03/14/2020 Telephone [facility] Surgery [address] [facility] [address] [facility] 6th [place] [address] [place] [address] Faith Alejandra LPN Social History Tobacco Use Types Packs/Day Years Used Date Smoking Tobacco: Never Smokeless Tobacco: Never Alcohol Use Standard Drinks/Week Comments Yes 0 (1 standard drink = 0.6 oz pur e alcohol) rare wine PHQ-2 Answer Date Recorded PHQ-2 Score 0 04/24/2019 Comments No Sex and Gender Information Value Date Recorded Sex Assigned at Not on file Legal Sex Female 12:11 AM PHYSICIAN OFFICE REP Gender Identity Not on file Sexual Orientation Not on file Occupation Industry Job Start Date Job End Date Retired Not on file Not on file Not on file documented as of this encounter Miscellaneous Notes * Telephone Encounter - Faith Boyle LPN - 03/14/2020 10:01 AM CDT I spoke with 's office who stated she will hold Benlysta 2 weeks prior and 2 weeks post op.They will call to update patient and rescheduled next infusion. documented in this encounter Plan of Treatment Not on file documented as of this encounter Visit Diagnoses Not on filedocumented in this encounter Care Teams Beef Grader Relationship Specialty Start Date End Date Santiago Bueno MD [address] [facility] [address] [place] [address] PCP - General 11/30/16 06/09/20 [place] [address] [facility] [address] [place] [address] Rheumatology 07/15/17 Silvia Granger DPT [address] [facility] [address] [place] [address] Physical Therapist Physical Therapy 04/14/20 06/09/20 documented as of this encounter
--- OUTSIDE RECORDS SUMMARY | 2024-08-29 10:20 | XMS_ITS | Encounter Summary ---
Author Organization [facility] Address [address] [facility] [address] [place] [address] Care Team Providers Care Gas Maker Helper Name Role Phone Santiago Bueno MD Primary Care Provider [phone] Gladis Song MD Unavailable Encounter Details Date Type Department Care Team (Late st Contact Info) Description 11/04/2019 [facility] Only [facility] [address] [place] [address] Santiago Bueno MD [address] [facility] [address] [place] [address] Social History Tobacco Use Types Packs/Day Years Used Date Smoking Tobacco: Never Smokeless Tobacco: Never Alcohol Use Standard Drinks/Week Comments Yes 0 (1 standard drink = 0.6 oz pur e alcohol) rare wine PHQ-2 Answer Date Recorded PHQ-2 Score 0 04/24/2019 Comments No Sex and Gender Information Value Date Recorded Sex Assigned at Not on file Legal Sex Female 12:11 AM STITCH BONDING MACHINE DRAWER IN Gender Identity Not on file Sexual Orientation Not on file Occupation Industry Job Start Date Job End Date Retired Not on file Not on file Not on file documented as of this encounter Plan of Treatment Not on file documented as of this encounter Procedures Procedure Name Priority Date/Time Associated Diagnosis Comments GI - RESULT 11/04/2019 documented in this encounter Results * GI - RESULT (11/04/2019) Anatomical Region Laterality Modality Other us Santiago Bueno MD Edited Result - Final documented in this encounter Visit Diagnoses Not on filedocumented in this encounter Care Teams Gas Maker Helper Relationship Specialty Start Date End Date Santiago Bueno MD [address] [facility] [address] [place] [address] PCP - General 11/30/16 06/09/20 [place] [address] [facility] [address] [place] [address] Rheumatology 07/15/17 documented as of this encounter
--- OUTSIDE RECORDS SUMMARY | 2024-08-29 10:20 | XMS_ITS | Encounter Summary ---
Author Organization [facility] Address [address] [place] [address] Care Team Providers Care Foot Setter Name Role Phone Santiago Bueno MD Primary Care Provider [phone] Gladis Song MD Unavailable Reason for Visit * Reason Onset Date Comments Dr. Bueno-Records Request 07/14/2019 Encounter Details Date Type Department Care Team (Late st Contact Info) Description 07/14/[address] [facility] [address] [place] [address] Santiago Bueno MD [address] [facility] [address] [place] [address] Dr. Bueno-Records Request Social History Tobacco Use Types Packs/Day Years Used Date Smoking Tobacco: Never Smokeless Tobacco: Never Alcohol Use Standard Drinks/Week Comments Yes 0 (1 standard drink = 0.6 oz pur e alcohol) rare wine PHQ-2 Answer Date Recorded PHQ-2 Score 0 04/24/2019 Comments No Sex and Gender Information Value Date Recorded Sex Assigned at Not on file Legal Sex Female 12:11 AM BENEFITS SALES CONSULTANT Gender Identity Not on file Sexual Orientation Not on file Occupation Industry Job Start Date Job End Date Retired Not on file Not on file Not on file documented as of this encounter Miscellaneous Notes * Telephone Encounter - Nirmala Alexander - 07/21/2019 11:24 AM CST Call Back-Resolved Inquiry Caller's Concern: Patient called to state that she contacted Dr. Willoughby's office to see if Colonoscopy report had beenreceived, but office stated that they had not received report. Patient did mention that another reprentative from the office stated that regular assistant in nursing who would keep track of document was not in the office today. I advised patient that Zeenat faxed report through [employer] system on 07/14/2019 at 4:25pm. Patient verbalized understanding and will contact Dr. Willoughby's office again. FITS SALES CONSULTANT * Telephone Encounter - Zeenat Waite - 07/14/2019 4:25 PM CST Faxed through [employer] FITS SALES CONSULTANT * Telephone Encounter - Kari Dominguez - 07/14/2019 3:54 PM CST Records Request to Practice Will Complete: Specific document requested: Colonoscopy Records and Report from most recent test Name of provider requesting records (if applicable): Dr. Solorzano Date Needed: [facility] to schedule appt Delivery Method to requestor (fax, mail, or pick and shovel man): Fax to [phone] Juan Carlos Browner's Callback #: [phone] Additional Comments: no additional comments Did you relay expectation for processing (up to 24 hours)? yes FITS SALES CONSULTANT documented in this encounter Plan of Treatment Not on file documented as of this encounter Visit Diagnoses Not on filedocumented in this encounter Care Teams Foot Setter Relationship Specialty Start Date End Date Santiago Bueno MD [address] [place] [address] PCP - General 11/30/16 06/09/20 [place] [address] [facility] [address] [place] [address] Rheumatology 07/15/17 documented as of this encounter
--- OUTSIDE RECORDS SUMMARY | 2024-08-29 10:20 | XMS_ITS | Encounter Summary ---
Author Organization [facility] Address [address] [place] [address] Care Team Providers Care Supervisor Model Making Name Role Phone Santiago Bueno MD Primary Care Provider [phone] Gladis Song MD Unavailable Reason for Visit * Reason Onset Date Comments Dr. Bueno - Records request 09/16/2019 Encounter Details Date Type Department Care Team (Late st Contact Info) Description 09/16/2019 Telephone [facility] [address] [place] [address] Santiago Bueno MD [address] [facility] [address] [place] [address] Dr. 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 Froylan Zaapta Date Needed: before 09.23.2019 Delivery Method to requestor (fax, mail, or picking crew supervisor): fax [phone] Caller's Callback #: [phone] Additional Comments: Did you relay expectation for processing (up to 24 hours)? Yes S VIAL BENDING CONVEYOR FEEDER documented in this encounter Plan of Treatment Not on file documented as of this encounter Visit Diagnoses Not on filedocumented in this encounter Care Teams Supervisor Model Making Relationship Specialty Start Date End Date Santiago Bueno MD [address] [facility] [address] [place] [address] PCP - General 11/30/16 06/09/20 [place] [address] [facility] [address] [place] [address] Rheumatology 07/15/17 documented as of this encounter
--- OUTSIDE RECORDS SUMMARY | 2024-08-29 10:20 | XMS_ITS | Encounter Summary ---
Author Organization [facility] Address [address] [place] [address] Care Team Providers Care Turbine Assembler Name Role Phone Santiago Bueno MD Primary Care Provider [phone] Gladis Song MD Unavailable Reason for Visit * Reason Onset Date Comments Hypertension 08/31/2019 Encounter Details Date Type Department Care Team (Late st Contact Info) Description 08/31/2019 Nurse Triage [facility] [address] [place] [address] Santiago Bueno MD [address] [facility] [address] [place] [address] Social History Tobacco Use Types Packs/Day Years Used Date Smoking Tobacco: Never Smokeless Tobacco: Never Alcohol Use Standard Drinks/Week Comments Yes 0 (1 standard drink = 0.6 oz pur e alcohol) rare wine PHQ-2 Answer Date Recorded PHQ-2 Score 0 04/24/2019 Comments No Sex and Gender Information Value Date Recorded Sex Assigned at Not on file Legal Sex Female 12:11 AM ARMY RANGER Gender Identity Not on file Sexual Orientation Not on file Occupation Industry Job Start Date Job End Date Retired Not on file Not on file Not on file documented as of this encounter Miscellaneous Notes * Telephone Encounter - Krissy Chavez RN - 08/31/2019 2:19 PM ARMY RANGER Pt has been having intermittent HTN 134/100 and HR 120s. Pt continues to have indigestion daily. Ptthought it was caused by her blood pressure medication but she has been off of it for a few weeks and she is no better. Pt seeking an appt, scheduled on 09/03. Care advice provided per protocol to include signs and symptoms of which to seek emergency medical attention. Reason for Disposition ? ? BP > 140/90 and is taking BP medications Protocols used: HIGH BLOOD [id number] RANGER * Telephone Encounter - Krissy Chavez RN - 08/31/2019 2:13 PM ARMY RANGER Regarding: Heartburn & High BP ----- Message from [employer] Data sent at 08/31/2019 2:09 PM ARMY RANGER ----- Symptom Based Call Chief Complaint: Heartburn & High BP Duration: Since June Appointment Details: Red Flag Caller's Callback #: [phone] Additional Comments: The was previously seen for heartburn. She is still having those issues. Now she has issues with her bowels. She has to use the restroom often and does not always make it. She has pain on the left side of her stomach. She has had to stop eating many of the foods she use to due to the effects. Her BP is also high. If practice uses e-visit, condition meets e-visit criteria, and patient has MyChart did you offer e-visit?: N/A Did you relay expectation for call back (face man: Red Flag 10-15 min; non- emergent up to 3 hours)(Practice: Red Flag warm transfer; non-emergent up to 24 hours)? yes RANGER documented in this encounter Plan of Treatment Not on file documented as of this encounter Visit Diagnoses Not on filedocumented in this encounter Care Teams Turbine Assembler Relationship Specialty Start Date End Date Santiago Bueno MD [address] [facility] [address] [place] [address] PCP - General 11/30/16 06/09/20 [place] [address] [facility] [address] [place] [id number] Rheumatology 07/15/17 documented as of this encounter
--- OUTSIDE RECORDS SUMMARY | 2024-08-29 10:20 | XMS_ITS | Encounter Summary ---
Author Organization [facility] Address [address] [place] [address] Phone Care Team Providers Care Zoo Director Name Role Phone Santiago Bueno MD Primary Care Provider [phone] Gladis Song MD Unavailable Reason for Visit * Consultation (Routine) - Closed Specialty Diagnoses / Procedures Referred By Contvannessa t Referred To Contact Plastic Surgery Diagnoses Bilateral hand pain Santiago Bueno MD [address] [place] [address] Phone: tel: fax: Lucrecia Gallegos MD [address] [place] [address] Phone: tel: fax: Referral ID Status Reason Start Date Expiration Date V isits Requested Visits Authorized [id number] Closed Specialty Services Required 02/22/2020 09/02/2021 99 99 Encounter Details Date Type Department Care Team (Late st Contact Info) Description 03/03/2020 11:00 AM CDT Office Visit [facility] Surgery [address] 6th [place] [address] [place] [address] Lucrecia Gallegos MD [address] [place] [address] Bilateral hand pain (Primary Dx) Social History [...] file 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 She also [...] HFA), atorvastatin (LIPITOR), bd integra syringe, bd luer-russ syringe, bisoprolol (ZEBETA), calcium carbonate (OS-LEELA), vitamin [...] for the procedure They will go to CPAP. Post-Operative Follow Up: 10 days with my PELLETIZER OPERATOR for wound check I will put her [...] noted and/or provided clarification. Lucrecia Gallegos MD [facility] Division of Plastic Surgery (Hand, Reconstructive and Peripheral Nerve Surgery) Please note this was created using MModal and may have some flat locker variance. documented in this encounter Plan of Treatment Not on file documented as of this encounter Visit Diagnoses Diagnosis Bilateral hand pain- Primary documented in this encounter Historical Medications * This list may reflect changes made after this encounter. BD Integra Syringe 3 mL 25 gauge x 1 syringe USE DIRECTED FOR 90 DAYS 02/19/2020 0 BD Luer-Russ Syringe 3 mL 22 gauge x 1 syringe USE ONCE A MONTH DIRECTED WITH METHOTREXATE 11/25/2019 0 metoprolol XL (TOPROL-XL) 50 mg extended release tablet metoprolol succinate ER 50 mg tablet,extended release 24 hr 0 omeprazole (PriLOSEC) 20 mg capsule omeprazole 20 mg capsule,delayed release 0 added in this encounter Orders Outpatient Referral Count Last Ordered Date Fir st Ordered Date AMB REFERRAL TO PLASTIC SURGERY 1 0 documented in this encounter Care Teams Zoo Director Relationship Specialty Start Date End Date Santiago Bueno MD [address] [facility] [address] [place] [address] PCP - General 11/30/16 06/09/20 [place] [address] [facility] [address] [place] [address] Rheumatology 07/15/17 documented as of this encounter
--- OUTSIDE RECORDS SUMMARY | 2024-08-29 10:20 | XMS_ITS | Encounter Summary ---
Author Organization [facility] Address [address] [facility] [address] [facility] [address] [place] [address] Care Team Providers Care Frankfurter Inspector Name Role Phone Santiago Bueno MD Primary Care Provider Gladis Song MD Unavailable Reason for Visit * Reason Onset Date Comments Dr. Bueno Referral Request 03/09/2020 Encounter Details Date Type Department Care Team (Late st Contact Info) Description 03/09/2020 Telephone [facility] [address] [place] [address] Santiago Bueno MD [address] [facility] [address] [place] [address] Dr. Bueno Referral Request Social History Tobacco Use Types Packs/Day Years Used Date Smoking Tobacco: Never Smokeless Tobacco: Never Alcohol Use Standard Drinks/Week Comments Yes 0 (1 standard drink = 0.6 oz pur e alcohol) rare wine PHQ-2 Answer Date Recorded PHQ-2 Score 0 04/24/2019 Comments No Sex and Gender Information Value Date Recorded Sex Assigned at Not on file Legal Sex Female 12:11 AM BUSINESS CONTINUITY PLANNING DIRECTOR Gender Identity Not on file Sexual Orientation Not on file Occupation Industry Job Start Date Job End Date Retired Not on file Not on file Not on file documented as of this encounter Miscellaneous Notes * Telephone Encounter - Cindy Pagan - 03/11/2020 12:58 PM CDT Auth # [id number] exp 06/08/20 24v Faxed to number below. * Telephone Encounter - Judith Tse - 03/09/2020 10:19 AM CDT Referral: Provider Name: [facility] Speciality: Occupational Therapy Address: [address] [place] [address], Zip: [place] [address] Diagnosis Code/Symptom/Reason Patient is being seen: M 79.641, M 79.642 Current Procedural Terminology (CPT) Code (if available): 37150, 45040, 20834, 15032, 84283, 31105 Date of Appointment: Not scheduled yet, needs referral first NPI#: [id number] Tax ID#: [id number] Is patient's insurance on file: Yes, [employer] Medicare Caller's Callback #: [phone] Additional Comments:None Did you relay expectation for processing (up to 72 hours)? Yes documented in this encounter Plan of Treatment Not on file documented as of this encounter Visit Diagnoses Not on filedocumented in this encounter Care Teams Frankfurter Inspector Relationship Specialty Start Date End Date Santiago Bueno MD [address] [facility] [address] [place] [address] PCP - General 11/30/16 06/09/20 [place] [address] [facility] [address] [place] [address] Rheumatology 07/15/17 documented as of this encounter
--- OUTSIDE RECORDS SUMMARY | 2024-08-29 10:20 | XMS_ITS | Encounter Summary ---
Author Organization [facility] Address [address] [place] [address] Phone Care Team Providers Care Fire Management Specialist Name Role Phone Santiago Bueno MD Primary Care Provider [phone] Gladis Song MD Unavailable Encounter Details Date Type Department Care Team (Late st Contact Info) Description 09/25/2019 Telephone [facility] Cardiology [address] [facility] [address] Medicine 8th [place] [address] [place] [address] Judah Duggan MD [address] [place] [address] Social History Tobacco Use Types Packs/Day Years Used Date Smoking Tobacco: Never Smokeless Tobacco: Never Alcohol Use Standard Drinks/Week Comments Yes 0 (1 standard drink = 0.6 oz pur e alcohol) rare wine PHQ-2 Answer Date Recorded PHQ-2 Score 0 04/24/2019 Comments No Sex and Gender Information Value Date Recorded Sex Assigned at Not on file Legal Sex Female 12:11 AM REGIONAL TRANSPORTATION MANAGER Gender Identity Not on file Sexual Orientation Not on file Occupation Industry Job Start Date Job End Date Retired Not on file Not on file Not on file documented as of this encounter Miscellaneous Notes * Telephone Encounter - Serenity Márquez BS - 09/25/2019 4:12 PM CST RAPHAEL PT RETURNING CALL. ONAL TRANSPORTATION MANAGER documented in this encounter Plan of Treatment Not on file documented as of this encounter Visit Diagnoses Not on filedocumented in this encounter Care Teams Fire Management Specialist Relationship Specialty Start Date End Date Santiago Bueno MD [address] [facility] [address] [place] [address] PCP - General 11/30/16 06/09/20 [place] [address] [facility] [address] [place] [address] Rheumatology 07/15/17 documented as of this encounter
--- OUTSIDE RECORDS SUMMARY | 2024-08-29 10:20 | XMS_ITS | Encounter Summary ---
Author Organization [facility] Address [address] [place] [address] Phone Care Team Providers Care Fee Clerk Name Role Phone Santiago Bueno MD Primary Care Provider [phone] Gladis Song MD Unavailable Reason for Visit * Reason Onset Date Comments Surgical Clearance 03/08/2020 Encounter Details Date Type Department Care Team (Late st Contact Info) Description 03/08/2020 Telephone [facility] Cardiology [address] [facility] [address] 8th [place] [address] [place] [address] Judah Duggan MD [address] [place] [address] Surgical Clearance Social History Tobacco Use Types Packs/Day Years Used Date Smoking Tobacco: Never Smokeless Tobacco: Never Alcohol Use Standard Drinks/Week Comments Yes 0 (1 standard drink = 0.6 oz pur e alcohol) rare wine PHQ-2 Answer Date Recorded PHQ-2 Score 0 04/24/2019 Comments No Sex and Gender Information Value Date Recorded Sex Assigned at Not on file Legal Sex Female 12:11 AM HARVESTING SUPERVISOR Gender Identity Not on file Sexual Orientation Not on file Occupation Industry Job Start Date Job End Date Retired Not on file Not on file Not on file documented as of this encounter Miscellaneous Notes * Telephone Encounter - Quinton Araujo - 03/08/2020 12:27 PM CDT NOTE FAXED TO [phone] * Telephone Encounter - Dannielle Blackwood RN - 03/08/2020 12:23 PM CDT Please fax note * Telephone Encounter - Judah Duggan MD - 03/08/2020 12:21 PM CDT It is ok to hold Eliquis for 2 days * Telephone Encounter - Dick Patricio - 03/08/2020 10:27 AM CDT RAPHAEL cardiac clearance and holding medication CALLER NAME: [facility] NAME: [place] PHONE NUMBER: [phone] FAX NUMBER: [phone] TYPE OF SURGERY: RIGHT THUMB TRIGGER RELEASE NAME OF SURGEON: 03/21/2020 SCHEDULED FOR: DR. SWENSON MEDICATION TO BE HELD: ELIQUIS FOR 2 DAYS COMMENTS: documented in this encounter Plan of Treatment Not on file documented as of this encounter Visit Diagnoses Not on filedocumented in this encounter Care Teams Fee Clerk Relationship Specialty Start Date End Date Santiago Bueno MD [address] [place] [address] PCP - General 11/30/16 06/09/20 [place] [address] [facility] [address] [place] [address] Rheumatology 07/15/17 documented as of this encounter
--- OUTSIDE RECORDS SUMMARY | 2024-08-29 10:20 | XMS_ITS | Encounter Summary ---
Author Organization [facility] Address [address] [place] [address] Phone Care Team Providers Care Telecommunications Manager Name Role Phone Santiago Bueno MD Primary Care Provider Gladis Song MD Unavailable Encounter Details Date Type Department Care Team (Late st Contact Info) Description 07/06/2019 Orders Only [facility] Cardiology [address] [facility] [address] 8th [place] [address] [place] [address] Judah Duggan MD [address] [place] [address] Coronary artery disease involving [place] heart without angina pectoris, unspecified vessel or [...] on file Legal Sex Female 12:11 AM 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 ICE 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 Gender Identity Not on file Sexual Orientation Not on file Occupation Industry Job Start Date Job End Date Retired Not on file Not on file Not on file documented as of this encounter Plan of Treatment Scheduled Orders Name Type Priority Associated Diagnoses Orde r Schedule Basic metabolic panel Lab Routine Coronary artery disease involving [place] heart without angina pectoris, unspecified vessel or lesion type Expected: 07/06/2019, Expires: 07/06/2020 documented as of this encounter Visit Diagnoses Diagnosis Coronary artery disease involving [place] heart without angina pectoris, unspecified vessel or lesion type- Primary documented in this encounter Care Teams Telecommunications Manager Relationship Specialty Start Date End Date Santiago Bueno MD [address] [place] [address] PCP - General 11/30/16 06/09/20 [place] [address] [facility] [address] [place] [address] Rheumatology 07/15/17 documented as of this encounter
--- OUTSIDE RECORDS SUMMARY | 2024-08-29 10:20 | XMS_ITS | Encounter Summary ---
Author Organization [facility] Address [address] [place] [address] Phone Care Team Providers Care Regulatory Services Consultant Name Role Phone Santiago Bueno MD Primary Care Provider [phone] Gladis Song MD Unavailable Encounter Details Date Type Department Care Team (Late st Contact Info) Description 03/08/2020 Telephone [facility] Surgery [address] [facility] [address] 6th [place] [address] [place] [address] Faith Alejandra LPN Social History [...] on file Legal Sex Female 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 Song's office who recommended patient hold methotrexate 2 weeks prior and 2 weekspost op. Awaiting instructions about Benlysta. LM with Dr. Camarena's office, awaiting instructions about Elliquis. Patient aware surgery date needed to be changed because she took her SQ injection on 03/07/20. Patient is compliant documented in this encounter Plan of Treatment Not on file documented as of this encounter Visit Diagnoses Not on filedocumented in this encounter Care Teams Regulatory Services Consultant Relationship Specialty Start Date End Date Santiago Bueno MD [address] [facility] [address] [place] [address] PCP - General 11/30/16 06/09/20 [place] [address] [facility] [address] [place] [address] Rheumatology 07/15/17 documented as of this encounter
--- OUTSIDE RECORDS SUMMARY | 2024-08-29 10:20 | XMS_ITS | Encounter Summary ---
Author Organization [facility] Facility Care Team Providers Care Garnetter Name Role Phone Santiago Bueno MD Primary Care Provider [phone] Gladis Song MD Unavailable Encounter Details Date Type Department Care Team (Latest Contact Info) Description 09/03/2019 Travel Social History Tobacco Use Types Packs/Day Years Used Date Smoking Tobacco: Never Smokeless Tobacco: Never Alcohol Use Standard Drinks/Week Comments Yes 0 (1 standard drink = 0.6 oz pur e alcohol) rare wine PHQ-2 Answer Date Recorded PHQ-2 Score 0 04/24/2019 Comments No Sex and Gender Information Value Date Recorded Sex Assigned at Not on file Legal Sex Female 12:11 AM WORKERS COMPENSATION CONSULTANT Gender Identity Not on file Sexual Orientation Not on file Occupation Industry Job Start Date Job End Date Retired Not on file Not on file Not on file documented as of this encounter Plan of Treatment Not on file documented as of this encounter Visit Diagnoses Not on filedocumented in this encounter Care Teams Garnetter Relationship Specialty Start Date End Date Santiago Bueno MD [address] [place] [address] PCP - General 11/30/16 06/09/20 [place] [address] [place] [address] Rheumatology 07/15/17 documented as of this encounter
--- OUTSIDE RECORDS SUMMARY | 2024-08-29 10:21 | XMS_ITS | Encounter Summary ---
Author Organization [facility] Address [address] [place] [address] Care Team Providers Care Juice Weigher Name Role Phone Santiago Bueno MD Primary Care Provider [phone] Gladis Song MD Unavailable Reason for Visit * Reason Comments Cough Encounter Details Date Type Department Care Team (Late st Contact Info) Description 03/31/2019 11:15 AM CDT Office Visit [facility] [address] [place] [address] Jessy Jaeger, M[employer] SPEC [address] [place] [id number] Moderate persistent asthma with acute exacerbation (Primary Dx); Coronary artery disease involving hopland heart without angina pectoris, unspecified vessel or lesion type; Patent foramen ovale; BMI 30.0-30.9,adult Social History Tobacco Use Types Packs/Day Years Used Date Smoking Tobacco: Never Smokeless Tobacco: Never Alcohol Use Standard Drinks/Week Comments Yes 0 (1 standard drink = 0.6 oz pur e alcohol) rare wine Comments No Sex and Gender Information Value Date Recorded Sex Assigned at Not on file 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 Gender Identity Not on file Sexual Orientation Not on file Occupation Industry Job Start Date Job End Date Retired Not on file Not on file Not on file documented as of this encounter Last Filed Vital Signs Vital Sign Reading Time Taken Comments Blood Pressure 128/70 03/31/2019 11:02 AM CDT Pulse 76 03/31/2019 11:02 AM CDT Temperature 36.3 ??C (97.3 ??F) 03/31/2019 11:02 AM C DT Respiratory Rate 17 03/31/2019 11:02 AM CDT Oxygen Saturation 97% 03/31/2019 11:02 AM CDT Inhaled Oxygen Concentration - - Weight 69.9 kg (154 lb 1.6 oz) 03/31/2019 11:02 AM CDT Height 152.4 cm (5') 03/31/2019 11:02 AM CDT Body Mass Index 30.1 03/31/2019 11:02 AM CDT documented in this encounter Patient Instructions * Patient Instructions* Jessy Castellon NP - 03/31/2019 11:15 AM CDT Problem List Patent foramen ovale (Chronic) Overview Patent foramen ovale. RoPE score of 2 with low likelihood of contribution to TIAs. Therefore, PFO closure has not been recommended Current Assessment & Plan Patient does have a history of PFO and history of TIAs she takes Eliquis 5 mg twice a day is compliant on her medication. Moderate asthma with acute exacerbation - Primary Overview Asthma Current Assessment & Plan Refill the Flovent, and the albuterol. Prescribed a Medrol Dosepak and azithromycin for the exacerbation. Relevant Medications fluticasone propionate (FLOVENT HFA) 110 mcg/actuation inhaler albuterol HFA (PROVENTIL HFA,VENTOLIN HFA,PROAIR HFA) 90 mcg/actuation inhaler CAD (coronary artery disease) Overview Mild coronary artery disease 20-30% narrowing in the circumflex and right coronar artery from 05/2018. Current Assessment & Plan Patient has nonobstructive coronary artery disease. Although she does have a PFO. She is on Eliquis5 mg b.i.d.. She is also on atorvastatin a 80 mg nightly. Metoprolol 50 mg for heart rate control. She denies any symptoms of coronary disease BMI 30.0-30.9,adult Current Assessment & Plan Body mass index is 30.1 kg/m??.. BMI Follow-up includes: nutrition counseling, exercise counseling and education provided. documented in this encounter Ordered Prescriptions Prescription Sig Dispense Quantity Refills Last Filled Start Date End Date fluticasone propionate (FLOVENT HFA) 110 mcg/actuation inhaler Inhale 2 puffs 2 (two) times a day Rinse mouth with water after use. Do not swallow. 2 Inhaler 2 03/31/2019 albuterol HFA (PROVENTIL HFA,VENTOLIN HFA,PROAIR HFA) 90 mcg/actuation inhalerIndications :Bronchospastic Pulmonary Disease Inhale 90 puffs every 4 (four) hours as needed for wheezing or shortness of breath 1 Inhaler 2 03/31/2019 0 azithromycin (ZITHROMAX) 250 mg tablet Take 2 tabs (500 mg) by mouth today, than 1 tab (250 mg) daily for 4 days. 6 tablet 03/31/2019 9 methylPREDNISolone (MEDROL DOSEPACK) 4 mg Dosepack Take as directed on package. 21 tablet 03/31/2019 0 documented in this encounter Progress Notes * Jessy Castellon NP - 03/31/2019 11:15 AM CDT Subjective/Objective Patient ID: Chio Orantes is a 68 y.o. female. Chief Complaint Cough 68-year-old female patient who has a history of asthma who is out of her Flovent and almost out of her albuterol. Having an ongoing productive cough coughing up yellow green mucus from her lungs. Shedenies any fever is having some fatigue. She is getting ready to travel to the [facility] and she knows that she needs a refill on her inhalers and is concerned about the wheezing. Cough This is a new problem. The problem has been unchanged. The problem occurs every few minutes. The cough is non-productive. Associated symptoms include chest pain, chills, ear congestion, headaches, nasal congestion, postnasal drip and rhinorrhea. Pertinent negatives include no ear pain. Nothing aggravates the symptoms. Risk factors for lung disease include animal exposure. She has tried nothing for the symptoms. The treatment provided no relief. Current Outpatient Medications on File Prior to Visit Medication Sig Dispense Refill ??? apixaban (ELIQUIS) 5 mg tablet Take 1 tablet (5 mg total) by mouth 2 (two) times a day 60 tablet 6 ??? atorvastatin (LIPITOR) 80 mg tablet Take 1 tablet (80 mg total) by mouth daily. 90 tablet 3 ??? calcium carbonate (OS-LEELA) 1,500 mg (600 mg of elemental calcium) tablet Take 2,000 mg of elemental calcium by mouth ??? cholecalciferol (VITAMIN D3) 2,000 unit tablet take 1 by Oral route every day 0 0 ??? folic acid (FOLVITE) 1 mg tablet Take 1 tablet (1 mg total) by mouth daily. Take one tab daily 90 tablet 0 ??? furosemide (LASIX) 20 mg tablet Take 1 tablet (20 mg total) by mouth daily. 30 tablet 11 ??? hydroCHLOROthiazide (HYDRODIURIL) 25 mg tablet TAKE 1 TABLET EVERY DAY 90 tablet 1 ??? hydroxychloroquine (PLAQUENIL) 200 mg tablet Take 1 tablet (200 mg total) by mouth 2 (two) times a day. 180 tablet 0 ??? methotrexate 25 mg/mL syringe Inject 0.6 mL (15 mg total) under the skin once a week. 8 mL 0 ??? metoprolol XL (TOPROL-XL) 50 mg 24 hr tablet TAKE 1 TABLET BY MOUTH EVERY DAY 90 tablet 1 ??? montelukast (SINGULAIR) 10 mg tablet Take 1 tablet (10 mg total) by mouth nightly. 90 tablet 1 ??? nitroglycerin (NITROSTAT) 0.4 mg SL tablet May repeat dose every 5 minutes for up to 3 doses total. 25 tablet 3 ??? pantoprazole DR (PROTONIX) 40 mg EC tablet Take 1 tablet (40 mg total) by mouth daily 30 [id number] ??? PARoxetine (PAXIL) 20 mg tablet TAKE 1 TABLET BY MOUTH EVERY DAY 90 tablet 1 ??? potassium chloride ER (KLOR-CON,K-DUR) 20 mEq CR tablet Take 2 tablets every morning; 2 tabletsevery evening 360 tablet 3 ??? syringe with needle 1 mL 28 gauge x 1/2 syringe Use to inject 0.6ml of methotrexate once weekly 12 Syringe 3 ??? [DISCONTINUED] albuterol HFA (PROVENTIL HFA,VENTOLIN HFA,PROAIR HFA) 90 mcg/actuation inhaler Inhale 90 puffs every 4 (four) hours as needed for wheezing or shortness of breath 1 Inhaler 2 ??? [DISCONTINUED] FLOVENT HFA 110 mcg/actuation inhaler INHALE 1 PUFF TWICE DAILY .RINSE MOUTH AFTER USE 12 Inhaler 2 ??? [DISCONTINUED] methylPREDNISolone (MEDROL DOSEPACK) 4 mg Dosepack Take as directed on package. 21 tablet 0 ??? [DISCONTINUED] VENTOLIN HFA 90 mcg/actuation inhaler INHALE 2 PUFFS EVERY 4- 6 HOURS NEEDED 18 Inhaler 1 No current facility-administered medications on file prior to visit. Allergies Allergen Reactions ??? Levofloxacin Nausea only and Headache Reaction: NAUSEA, , , Reaction: headaches, , Reaction: Nausea, ??? Nitrofurantoin ??? Sulfa (Sulfonamide Antibiotics) Swelling Reaction: Swelling, ??? Latex Other (See comments) Reaction: RASH;, PHQ Screening Over the last 2 weeks, how often have you been bothered by any of the following problems? Little Interest or Pleasure in Doing Things: Not at all Feeling Down, Depressed, or Hopeless: Not at all PHQ-2 Total Score (If total score is 3 or more points, staff should administer the PHQ-9): 0 Over the past 2 weeks, how often have you been bothered by any of the following problems? Little Interest or Pleasure in Doing Things: Not at all Feeling Down, Depressed, or Hopeless: Not at all STEADI Fall Risk Screening In the past year, patient experienced: One or more falls in the last year: No Immunization History Administered Date(s) Administered ??? Influenza, Quadrivalent, Split, Intramuscular 05/17/2015 ??? Influenza, Quadrivalent, Split, Preservative Free, Intramuscular 07/16/2016 ??? Influenza, Split 06/05/2011, 05/21/2013 ??? Influenza, Trivalent, High Dose, Split, Preservative Free, Intramuscular 07/03/2018 ??? Influenza, Trivalent, Intramuscular 06/28/2009, 07/03/2012, 05/17/2015 ??? Influenza, Trivalent, Recombinant, Egg Free, Preservative Free, Antibiotic Free, Intramuscular 05/28/2014, 05/28/2014 ??? Influenza, Unspecified 05/03/2017 ??? Pneumococcal Conjugate PCV 13 05/22/2017 ??? Pneumococcal Polysaccharide PPV23 05/28/2014, 05/28/2014 Past Medical History: Diagnosis Date ??? Asthma ??? Cerebrovascular accident (CVA) (CMS/HCC) Stroke ??? Heart murmur ??? 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 Hyperlipidemia ??? Hypertension ??? Lupus (CMS/HCC) Social History Tobacco Use Smoking Status Never Smoker Smokeless Tobacco Never Used Family History Problem Relation Age of Onset ??? Coronary artery disease Mother Coronary artery disease; ??? Heart attack Mother 61 heart attack; ??? Asthma Father 82 Asthma; /Asthma; ??? Tuberculosis Father Tuberculosis; ??? Asthma Brother Asthma; ??? Diabetes Brother Diabetes mellitus; ??? Asthma Sister Asthma; ??? Diabetes Sister Diabetes mellitus; ??? Heart disease Mother Family history of cardiac disorder - (Added by TW Conv) Review of Systems Constitutional: Positive for chills. HENT: Positive for postnasal drip and rhinorrhea. Negative for ear pain. Eyes: Negative. Respiratory: Positive for cough. Cardiovascular: Positive for chest pain. Gastrointestinal: Negative. Negative for nausea and vomiting. Neurological: Positive for headaches. BP 128/70 Pulse 76 Temp 36.3 ??C (97.3 ??F) Resp 17 Ht 152.4 cm (5') Wt 69.9 kg (154 lb 1.6 oz) LMP (LMP Unknown) SpO2 97% BMI 30.10 kg/m?? Physical Exam Constitutional: She is oriented to person, place, and time. She appears well- developed and well-nourished. HENT: Head: Normocephalic. Eyes: Pupils are equal, round, and reactive to light. Conjunctivae and EOM are normal. Neck: Normal range of motion. Neck supple. Cardiovascular: Normal rate, regular rhythm, normal heart sounds and intact distal pulses. Pulmonary/Chest: Effort normal. She has wheezes. Abdominal: Soft. Bowel sounds are normal. Musculoskeletal: Normal range of motion. Neurological: She is alert and oriented to person, place, and time. She has normal reflexes. Skin: Skin is warm and dry. Capillary refill takes less than 2 seconds. Psychiatric: She has a normal mood and affect. Her behavior is normal. Judgment and thought contentnormal. Nursing note and vitals reviewed. Assessment/Plan Diagnoses and all orders for this visit: Moderate persistent asthma with acute exacerbation (J45.41) (Primary) Assessment & Plan: Refill the Flovent, and the albuterol. Prescribed a Medrol Dosepak and azithromycin for the exacerbation. Coronary artery disease involving hopland heart without angina pectoris, unspecified vessel or lesion type (I25.10) Assessment & Plan: Patient has nonobstructive coronary artery disease. Although she does have a PFO. She is on Eliquis5 mg b.i.d.. She is also on atorvastatin a 80 mg nightly. Metoprolol 50 mg for heart rate control. She denies any symptoms of coronary disease Patent foramen ovale (Q21.1) Assessment & Plan: Patient does have a history of PFO and history of TIAs she takes Eliquis 5 mg twice a day is compliant on her medication. BMI 30.0-30.9,adult (Z68.30) Assessment & Plan: Body mass index is 30.1 kg/m??.. BMI Follow-up includes: nutrition counseling, exercise counseling and education provided. Other orders - methylPREDNISolone (MEDROL DOSEPACK) 4 mg Dosepack; Take as directed on package. - azithromycin (ZITHROMAX) 250 mg tablet; Take 2 tabs (500 mg) by mouth today, than 1 tab (250 mg) daily for 4 days. - fluticasone propionate (FLOVENT HFA) 110 mcg/actuation inhaler; Inhale 2 puffs 2 (two) times a day Rinse mouth with water after use. Do not swallow. - albuterol HFA (PROVENTIL HFA,VENTOLIN HFA,PROAIR HFA) 90 mcg/actuation inhaler; Inhale 90 puffs every 4 (four) hours as needed for wheezing or shortness of breath documented in this encounter Miscellaneous Notes * Assessment & Plan Note - Jessy Castellon NP - 03/31/2019 11:48 AM CDTAssociated Problem(s): CAD (coronary artery disease) Patient has nonobstructive coronary artery disease. Although she does have a PFO. She is on Eliquis5 mg b.i.d.. She is also on atorvastatin a 80 mg nightly. Metoprolol 50 mg for heart rate control. She denies any symptoms of coronary disease * Assessment & Plan Note - Jessy Castellon NP - 03/31/2019 11:47 AM CDTAssociated Problem(s): BMI 28.0-28.9,adult Body mass index is 30.1 kg/m??.. BMI Follow-up includes: nutrition counseling, exercise counseling and education provided. * Assessment & Plan Note - Jessy Castellon NP - 03/31/2019 11:47 AM CDTAssociated Problem(s): Patent foramen ovale Patient does have a history of PFO and history of TIAs she takes Eliquis 5 mg twice a day is compliant on her medication. * Assessment & Plan Note - Jessy Castellon NP - 03/31/2019 11:47 AM CDTAssociated Problem(s): Moderate asthma with acute exacerbation Refill the Flovent, and the albuterol. Prescribed a Medrol Dosepak and azithromycin for the exacerbation. documented in this encounter Plan of Treatment Not on file documented as of this encounter Visit Diagnoses Diagnosis Moderate persistent asthma with acute exacerbation- Primary Coronary artery disease involving hopland heart without angina pectoris, unspecified vessel or lesion type Patent foramen ovale Ostium secundum type atrial septal defect BMI 30.0-30.9,adult documented in this encounter Discontinued Medications Medication Sig Discontinue Reason Start Date End Da te VENTOLIN HFA 90 mcg/actuation inhaler INHALE 2 PUFFS EVERY 4-6 HOURS NEEDED 10/17/2018 03/31/2019 methylPREDNISolone (MEDROL DOSEPACK) 4 mg Dosepack Take as directed on package. Reorder 02/24/2019 03/31/2019 FLOVENT HFA 110 mcg/actuation inhaler INHALE 1 PUFF TWICE DAILY .RINSE MOUTH AFTER USE Reorder 10/03/2018 03/31/2019 albuterol HFA (PROVENTIL HFA,VENTOLIN HFA,PROAIR HFA) 90 mcg/actuation inhalerIndications:Bron chospastic Pulmonary Disease Inhale 90 puffs every 4 (four) hours as needed for wheezing or shortness of breath 02/24/2019 03/31/2019 documented as of this encounter Care Teams Juice Weigher Relationship Specialty Start Date End Date Santiago Bueno MD [address] [facility] [address] [place] [address] PCP - General 11/30/16 06/09/20 [place] [address] [place] [address] Rheumatology 07/15/17 documented as of this encounter
--- OUTSIDE RECORDS SUMMARY | 2024-08-29 10:21 | XMS_ITS | Encounter Summary ---
Author Organization [facility] Address [address] [place] [address] Phone Care Team Providers Care Glazing Machine Operator Name Role Phone Santiago Bueno MD Primary Care Provider [phone] Gladis Song MD Unavailable Encounter Details Date Type Department Care Team (Late st Contact Info) Description 12/04/2018 Telephone [facility] Cardiology [address] [place] [address] [place] [address] Judah Duggan MD [address] [place], [place] [id number] Social History Tobacco Use Types Packs/Day Years Used Date Smoking Tobacco: Never Smokeless Tobacco: Never Alcohol Use Standard Drinks/Week Comments Yes 0 (1 standard drink = 0.6 oz pur e alcohol) rare wine Comments No Sex and Gender Information Value Date Recorded Sex Assigned at Not on file 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 * Telephone Encounter - Dannielle Blackwood RN - 12/04/2018 1:45 PM CDT ----- Message from Judah Duggan MD sent at 12/04/2018 1:30 PM CDT ----- Minor abnormalities. Please check CMP in 6 months. ----- Message ----- From: Dannielle Blackwood RN Sent: 12/04/2018 12:01 PM To: Judah Duggan MD ----- Message ----- From: Sabine Kraft Sent: 12/04/2018 11:54 AM To: Dannielle Blackwood RN documented in this encounter Plan of Treatment Not on file documented as of this encounter Visit Diagnoses Not on filedocumented in this encounter Care Teams Glazing Machine Operator Relationship Specialty Start Date End Date Santiago Bueno MD [address] [facility] [address] [place] [address] PCP - General 11/30/16 06/09/20 [place] [address] [address] [facility] [facility] [address] [place] [address] Rheumatology 07/15/17 documented as of this encounter
--- OUTSIDE RECORDS SUMMARY | 2024-08-29 10:21 | XMS_ITS | Encounter Summary ---
Author Organization [facility] Facility Care Team Providers Care Hair Machine Operator Name Role Phone Santiago Bueno MD Primary Care Provider [phone] Gladis Song MD Unavailable Encounter Details Date Type Department Care Team (Latest Contact Info) Description 06/30/2019 Travel Social History Tobacco Use Types Packs/Day Years Used Date Smoking Tobacco: Never Smokeless Tobacco: Never Alcohol Use Standard Drinks/Week Comments Yes 0 (1 standard drink = 0.6 oz pur e alcohol) rare wine PHQ-2 Answer Date Recorded PHQ-2 Score 0 04/24/2019 Comments No Sex and Gender Information Value Date Recorded Sex Assigned at Not on file 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
--- OUTSIDE RECORDS SUMMARY | 2024-08-29 10:21 | XMS_ITS | Encounter Summary ---
Author Organization [facility] Address [address] [place] [address] Care Team Providers Care Community Planner Name Role Phone Santiago Bueno MD Primary Care Provider [phone] Gladis Song MD Unavailable Encounter Details Date Type Department Care Team (Late st Contact Info) Description 06/01/2019 Orders Only [facility] [address] [place] [address] Santiago Bueno MD [address] [facility] [address] [place] [address] Social History Tobacco Use Types Packs/Day Years Used Date Smoking Tobacco: Never Smokeless Tobacco: Never Alcohol Use Standard Drinks/Week Comments Yes 0 (1 standard drink = 0.6 oz pur e alcohol) rare wine PHQ-2 Answer Date Recorded PHQ-2 Score 0 04/24/2019 Comments No Sex and Gender Information Value Date Recorded Sex Assigned at Not on file 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 Gender Identity Not on file Sexual Orientation Not on file Occupation Industry Job Start Date Job End Date Retired Not on file Not on file Not on file documented as of this encounter Plan of Treatment Not on file documented as of this encounter Procedures Procedure Name Priority Date/Time Associated Diagnosis Comments SCAN - LABS 06/01/2019 documented in this encounter Results * SCAN - LABS (06/01/2019) Santiago Bueno MD Final Result documented in this encounter Visit Diagnoses Not on filedocumented in this encounter Care Teams Community Planner Relationship Specialty Start Date End Date Santiago Bueno MD [address] [place] [address] PCP - General 11/30/16 06/09/20 [place] [address] [facility] [address] [place] [address] Rheumatology 07/15/17 documented as of this encounter
--- OUTSIDE RECORDS SUMMARY | 2024-08-29 10:21 | XMS_ITS | Encounter Summary ---
Author Organization [facility] Address [address] [place] [address] Phone Care Team Providers Care Dial Painter Name Role Phone Santiago Bueno MD Primary Care Provider [phone] Gladis Song MD Unavailable Encounter Details Date Type Department Care Team (Late st Contact Info) Description 06/23/2019 Telephone [facility] Cardiology [address] [facility] Advanced Medicine [address]th [place] [address] [place] [address] Judah Duggan MD [address] [place], [place] [id number] Social History Tobacco Use Types Packs/Day Years Used Date Smoking Tobacco: Never Smokeless Tobacco: Never Alcohol Use Standard Drinks/Week Comments Yes 0 (1 standard drink = 0.6 oz pur e alcohol) rare wine PHQ-2 Answer Date Recorded PHQ-2 Score 0 04/24/2019 Comments No Sex and Gender Information Value Date Recorded Sex Assigned at Not on file Legal Sex Female 12:11 AM TAR POT MAN Gender Identity Not on file Sexual Orientation Not on file Occupation Industry Job Start Date Job End Date Retired Not on file Not on file Not on file documented as of this encounter Miscellaneous Notes * Telephone Encounter - Dannielle Blackwood RN - 06/23/2019 2:10 PM CDT lmovm with Dr. Duggan recs. Asked to call back in 2 weeks with readings * Telephone Encounter - Judah Duggan MD - 06/23/2019 12:51 PM CDT Please have her monitor her heart rate and blood pressure off metoprolol and call back in 2 weeks with readings * Telephone Encounter - Dannielle Blackwood RN - 06/23/2019 10:54 AM CDT Please advise * Telephone Encounter - Alexandra Lei - 06/23/2019 10:52 AM CDT Urban She has been on Metoprolol all summer and all summer she has had heartburn. She ran out of pills and since then she hasn't had heartburn. Wants to talk to you about it. documented in this encounter Plan of Treatment Not on file documented as of this encounter Visit Diagnoses Not on filedocumented in this encounter Care Teams Dial Painter Relationship Specialty Start Date End Date Santiago Bueno MD [address] [place] [address] PCP - General 11/30/16 06/09/20 [place] [address] [place] [address] Rheumatology 07/15/17 documented as of this encounter
--- OUTSIDE RECORDS SUMMARY | 2024-08-29 10:21 | XMS_ITS | Encounter Summary ---
Author Organization [facility] Address [address] [place] [address] Phone Care Team Providers Care Applications System Analyst Name Role Phone Santiago Bueno MD Primary Care Provider [phone] Gladis Song MD Unavailable Encounter Details Date Type Department Care Team (Late st Contact Info) Description 11/27/2018 Telephone [facility] Cardiology [address] [facility] [address]th [place] [address] [place] [address] Judah Duggan MD [address] [place], [place] [id number] Social History Tobacco Use Types Packs/Day Years Used Date Smoking Tobacco: Never Smokeless Tobacco: Never Alcohol Use Standard Drinks/Week Comments Yes 0 (1 standard drink = 0.6 oz pur e alcohol) rare wine Comments No Sex and Gender Information Value Date Recorded Sex Assigned at Not on file 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 Script sent to rx; lab order mailedto pt * Telephone Encounter - Dannielle Blackwood RN - 11/27/2018 9:33 AM CDT ----- Message from Dannielle Blackwood RN sent at 11/27/2018 8:39 AM CDT ----- lmovm to call our office ----- Message ----- From: Judah Duggan MD Sent: 11/26/2018 4:45 PM To: Dannielle Blackwood RN Please increase potassium by 40 mEq a day and repeat a basic metabolic profile in 1 week ----- Message ----- From: Dannielle Blackwood RN Sent: 11/26/2018 3:59 PM To: Judah Duggan MD ----- Message ----- From: Sabine Kraft Sent: 11/26/2018 3:55 PM To: Dannielle Blackwood RN documented in this encounter Plan of Treatment Not on file documented as of this encounter Visit Diagnoses Not on filedocumented in this encounter Care Teams Applications System Analyst Relationship Specialty Start Date End Date Santiago Bueno MD [address] [facility] [address] [place] [address] PCP - General 11/30/16 06/09/20 [place] [id number] [facility] [address] [place] [address] Rheumatology 07/15/17 documented as of this encounter
--- OUTSIDE RECORDS SUMMARY | 2024-08-29 10:21 | XMS_ITS | Encounter Summary ---
Author Organization [facility] Address [address] [place] [address] Care Team Providers Care Scorer Single Name Role Phone Santiago Bueno MD Primary Care Provider [phone] Gladis Song MD Unavailable Reason for Visit * Reason Comments Medicare Wellness Encounter Details Date Type Department Care Team (Late st Contact Info) Description 06/02/2019 9:30 AM CDT Office Visit [facility] [address] [place] [id number] Jessy Jaeger, PICTURE ENLARGER [address] [place] [id number] Annual physical exam (Primary Dx); Anxiety state; Benign paroxysmal positional vertigo of left ear; BMI 30.0-30.9,adult; Borderline diabetes mellitus; Coronary artery disease involving ute heart without angina pectoris, unspecified vessel or lesion type; Gastroesophageal reflux disease without esophagitis; Heart failure with preserved ejection fraction, unspecified HF chronicity (CMS/HCC); 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 (CMS/HCC); History of arterial ischemic stroke; Late, effect, cerebrovascular disease; Moderate persistent asthma with acute exacerbation; Neuropathy (CMS/HCC); Other hyperlipidemia; Paroxysmal atrial fibrillation (CMS/HCC); 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 (CMS/HCC); Hypertensive heart disease with chronic systolic congestive heart failure (CMS/HCC); Obstructive sleep apnea syndrome; Adverse effect of drug, subsequent encounter Social History Tobacco Use Types Packs/Day Years Used Date Smoking Tobacco: Never Smokeless Tobacco: Never Alcohol Use Standard Drinks/Week Comments Yes 0 (1 standard drink = 0.6 oz pur e alcohol) rare wine PHQ-2 Answer Date Recorded PHQ-2 Score 0 04/24/2019 Comments No Sex and Gender Information Value Date Recorded Sex Assigned at Not on file 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 Gender Identity Not on file Sexual Orientation Not on file Occupation Industry Job Start Date Job End Date Retired Not on file Not on file Not on file documented as of this encounter Last Filed Vital Signs Vital Sign Reading Time Taken Comments Blood Pressure 128/78 06/02/2019 9:37 AM CDT Pulse 86 06/02/2019 9:37 AM CDT Temperature 36.2 ??C (97.1 ??F) 06/02/2019 9:37 AM CD T Respiratory Rate 15 06/02/2019 9:37 AM CDT Oxygen Saturation 96% 06/02/2019 9:37 AM CDT Inhaled Oxygen Concentration - - Weight 70.1 kg (154 lb 9.6 oz) 06/02/2019 9:37 A M CDT Height 152.4 cm (5') 06/02/2019 9:37 AM CDT Body Mass Index 30.19 06/02/2019 9:37 AM CDT documented in this encounter Patient Instructions * Patient Instructions* Jessy Castellon NP - 06/02/2019 9:30 AM CDT Problem List Systemic lupus erythematosus (CMS/HCC) (Chronic) Overview SLE Current Assessment & Plan Followed by Dr. Gladis Song Paroxysmal atrial fibrillation (CMS/HCC) Overview Although this is not well documented, she does carry this diagnosis in her chart. 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 We will continue Eliquis. She has had no more strokes or taste and she has been on Eliquis. Current Assessment & Plan Followed by Cardiology. AFib is not well documented in the chart. She has had strokes in the past. Continue on Eliquis. Other hyperlipidemia Current Assessment & Plan Taking a statin, with no side effects to medication. Labs pending today. Obstructive sleep apnea syndrome (Chronic) Current Assessment & Plan encourage to fu pulmonary for sleep evaluation as scheduled encourage to use cpap as rx education risk benefits side affects of nonadherance Neuropathy ([facility]/HCC) Current Assessment & Plan Stable at this time no change in condition. Moderate asthma with acute exacerbation Overview Asthma Late, effect, cerebrovascular disease (Chronic) Hypertensive heart disease with chronic systolic congestive heart failure (CMS/HCC) Current Assessment & Plan On appropriate medical therapy. Continue medical therapy. History of arterial ischemic stroke Overview Acute ischemic stroke in March 2016 and multiple prior TIAs.Also with history of subcortical strokes Current Assessment & Plan Patient continues on anti-platelet therapy. Will continue on the medication. Blood pressure is under good control. 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 (CMS/HCC) Current Assessment & Plan Continues to have mild weakness. Able to help care for herself. Heart failure with preserved ejection fraction (CMS/HCC) Overview LVEDP was 22 from cardiac catheterization in May of 2018 Current Assessment & Plan Followed by Cardiology. On appropriate medical therapy. Stable at this time. Continue current therapy. Relevant Orders Lipid panel Gastroesophageal reflux disease (Chronic) Overview ESOPHAGEAL REFLUX Current Assessment & Plan Sit upright postprandial. Avoid eating after 7:00 p.m. Avoid fat sugar pork etoh Call for any signs of karen bleeding from rectum, dark tarry stools, abdominal pain nausea emesis or po intolerance, Prescription sent to pharmacy we discussed at length the risk and benefits if no resolution consultGI. Drug reaction Current Assessment & Plan Sunburn type of skin reaction to doxycycline. Triamcinolone cream CAD (coronary artery disease) Overview Mild coronary artery disease 20-30% narrowing in the circumflex and right coronar artery from 05/2018. Current Assessment & Plan On appropriate medical therapy. Continue medication. Relevant Orders Lipid panel Borderline diabetes mellitus (Chronic) Current Assessment & Plan Eating healthy. Exercising when she can. Labs pending Relevant Orders TSH BMI 30.0-30.9,adult Current Assessment & Plan Body mass index is 30.19 kg/m??. BMI Follow-up includes: nutrition counseling, exercise counseling and education provided. Benign paroxysmal positional vertigo of left ear Anxiety state (Chronic) Overview ANXIETY STATE NOS Current Assessment & Plan Paxil 20 mg daily. Stable at this time. Annual physical exam - Primary Current Assessment & Plan Medication and allergies reviewed and updated. Past [...] gynecologic examinations with pelvic exam & PAP s mear, periodic blood pressure monitoring, & bone-density testing (starting @ age 65 in average-risk person) Relevant Orders Urinalysis reflex to microscopic and culture Urine, clean voided documented in this encounter Ordered Prescriptions Prescription Sig Dispense Quantity Refills Last Filled Start Date End Date triamcinolone (KENALOG) 0.1 % cream Apply to affected area 1-2 times daily as needed. On the neck and arm for 2 weeks 30 g 1 06/02/2019 0 documented in this encounter Progress Notes * Jessy Castellon NP - 06/02/2019 9:30 AM CDT MEDICARE SUBSEQUENT ANNUAL WELLNESS VISIT Chio Orantes Patient presents for [employer] medicare physical and review of chronic diseases. Patient filled out theMedicare Health Risk Assessment in its entirety, & we reviewed during the appointment, which was scanned into the chart. Specifically, we reviewed the doctors that the patient sees on a regular basis, tobacco & alcohol usage, advance directive information (including living will & power of workers compensation defense attorney status), end of life planning issues, functional ability for activities of daily living, presence of chronic painthat affects functional ability, exposure to relationship abuse, ongoing dental care, hearing &visual deficits, depression screening, fall risk screening (as well as evaluation for any injuries with reported falls), evaluation for cognitive impairment for any memory deficits along with functional deficits associated with memory loss, safety evaluation (including presence of smoke & carbon dioxide detectors, first aid kit, fire extinguisher, regular use of seat belt, regular use of sun screen, exposure to fall risks in home environment, use of safety features like stairs, rails & grab bars in home), ongoing diet & exercise habits (including the health quality of the diet & intensity of exercise), & any concerning changes in weight. Further, we evaluated any concerns of the patient regarding routine activities of daily living such as eating meals, bathing, dressing, using the toilet, & grooming as well as routine executive functions such as keeping house, managing finances, driving, shopping & preparing meals. We did discuss risk factors/conditions (if appropriate) for which additional interventions are recommended. Appropriate screening was discussed, including age-appropriate cancer screening along with bone-density testing. Vaccination status was evaluated & updated as needed, & specific health advice regarding detention management was provided. Medicare Health Risk Assessment Basic Information In general, would you say your health is: Good Do you have an Advanced Directive (Living Will) and/or Durable Power of Medical Receptionist Assistant?: Yes - Please bring a copy to your next appointment Do you have trouble hearing the television or radio when other do not?: No Do you have to strain or struggle to hear/understand conversations?: No Have you experienced any of the following problems currently or recently? Eating: No Grooming: No Bathing: No Walking: No Using the toilet: No Memory problems: No Difficulty speaking: No Have you experienced any of the following problems currently or recently? Laundry and/or housekeeping: No Handling Money: No Shopping: No Food preparation: No Transportation: No Taking and/or getting your own medications: No Problem List, Past Medical and Surgical History: Patient Active Problem List Diagnosis ??? Systemic lupus erythematosus (CMS/HCC) ??? Gastroesophageal reflux disease ??? Tremor ??? Osteopenia ??? Moderate asthma with acute exacerbation ??? Anxiety state ??? Therapeutic drug monitoring ??? BMI 30.0-30.9,adult ??? Late, effect, cerebrovascular disease ??? Borderline [...] with chronic systolic congestive heart failure (CMS/HCC) Past Medical History: Diagnosis Date ??? Asthma ??? Cerebrovascular accident (CVA) (CMS/HCC) Stroke ??? Heart murmur ??? 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 Hyperlipidemia ??? Hypertension ??? Lupus (CMS/HCC) Past Surgical History: Procedure Laterality Date ??? APPENDECTOMY ??? BILATERAL OOPHORECTOMY ??? SECTION ??? HYSTERECTOMY Family History: Family History Problem Relation Age of Onset ??? Coronary artery disease Mother Coronary artery disease; ??? Heart attack Mother 61 heart attack; ??? Asthma Father 82 Asthma; /Asthma; ??? Tuberculosis Father Tuberculosis; ??? Asthma Brother Asthma; ??? Diabetes Brother Diabetes mellitus; ??? Asthma Sister Asthma; ??? Diabetes Sister Diabetes mellitus; ??? Heart disease Mother Family history of cardiac disorder - (Added by TW Izabela) Social History: Social History Socioeconomic History ??? Marital status: Spouse name: Not on file ??? Number of children: Not on file ??? Years of education: Not on file ??? Highest education level: Not on file Occupational History ??? Occupation: Retired Social Needs ??? Financial resource strain: Not on file ??? Food insecurity: Worry: Not on file Inability: Not on file ??? Transportation needs: Medical: Not on file Non-medical: Not on file Tobacco Use ??? Smoking status: Never Smoker ??? Smokeless tobacco: Never Used Substance and Sexual Activity ??? Alcohol use: Yes Comment: rare wine ??? Drug use: No ??? Sexual activity: Not on file Lifestyle ??? Physical activity: Days per week: Not on file Minutes per session: Not on file ??? Stress: Not on file Relationships ??? Social connections: Talks on phone: Not on file Gets together: Not on file Attends gnosticist service: Not on file Active member of club or organization: Not on file Attends meetings of clubs or organizations: Not on file Relationship status: Not on file ??? Intimate partner violence: Fear of current or ex partner: Not on file Emotionally abused: Not on file Physically abused: Not on file Forced sexual activity: Not on file Other Topics Concern ??? Not on file Social History Narrative ??? Not on file Allergies: Allergies Allergen Reactions ??? Levofloxacin Nausea only and Headache Reaction: NAUSEA, , , Reaction: headaches, , Reaction: Nausea, ??? Nitrofurantoin ??? Sulfa (Sulfonamide Antibiotics) Swelling Reaction: Swelling, ??? Latex Other (See comments) Reaction: RASH;, Medications: Current Outpatient Medications: ??? albuterol HFA (PROVENTIL HFA,VENTOLIN HFA,PROAIR HFA) 90 mcg/actuation inhaler, Inhale 90 puffsevery 4 (four) hours as needed for wheezing or shortness of breath, Disp: 1 Inhaler, Rfl: 2 ??? apixaban (ELIQUIS) 5 mg tablet, Take 1 tablet (5 mg total) by mouth 2 (two) times a day, Disp: 60 tablet, Rfl: 6 ??? atorvastatin (LIPITOR) 80 mg tablet, TAKE 1 TABLET BY MOUTH EVERY DAY, Disp: 90 tablet, Rfl: 3 ??? calcium carbonate (OS-LEELA) 1,500 mg (600 mg of elemental calcium) tablet, Take 2,000 mg of elemental calcium by mouth, Disp: , Rfl: ??? cholecalciferol (VITAMIN D3) 2,000 unit tablet, take 1 by Oral route every day, Disp: 0, Rfl: 0 ??? fluticasone propionate (FLOVENT HFA) 110 mcg/actuation inhaler, Inhale 2 puffs 2 (two) times a day Rinse mouth with water after use. Do not swallow., Disp: 2 Inhaler, Rfl: 2 ??? hydroCHLOROthiazide (HYDRODIURIL) 25 mg tablet, TAKE 1 TABLET BY MOUTH EVERY DAY, Disp: 90 tablet, Rfl: 3 ??? hydroxychloroquine (PLAQUENIL) 200 mg tablet, Take 1 tablet (200 mg total) by mouth 2 (two) times a day., Disp: 180 tablet, Rfl: 0 ??? methotrexate 25 mg/mL syringe, Inject 0.6 mL (15 mg total) under the skin once a week., Disp: 8mL, Rfl: 0 ??? methylPREDNISolone (MEDROL DOSEPACK) 4 mg Dosepack, Take as directed on package., Disp: 21 tablet, Rfl: 0 ??? metoprolol XL (TOPROL-XL) 50 mg 24 hr tablet, TAKE 1 TABLET BY MOUTH EVERY DAY, Disp: 90 tablet, Rfl: 1 ??? montelukast (SINGULAIR) 10 mg tablet, TAKE 1 TABLET BY MOUTH EVERY DAY AT NIGHT, Disp: 90 tablet, Rfl: 0 ??? nitroglycerin (NITROSTAT) 0.4 mg SL tablet, May repeat dose every 5 minutes for up to 3 doses total., Disp: 25 tablet, Rfl: 3 ??? pantoprazole DR (PROTONIX) 40 mg EC tablet, Take 1 tablet (40 mg total) by mouth daily, Disp: 30 tablet, Rfl: 11 ??? PARoxetine (PAXIL) 20 mg tablet, TAKE 1 TABLET BY MOUTH EVERY DAY, Disp: 90 tablet, Rfl: 1 ??? potassium chloride ER (KLOR-CON,K-DUR) 20 mEq CR tablet, Take 2 tablets every morning; 2 tablets every evening, Disp: 360 tablet, Rfl: 3 ??? syringe with needle 1 mL 28 gauge x 1/2 syringe, Use to inject 0.6ml of methotrexate once weekly, Disp: 12 Syringe, Rfl: 3 ??? folic acid (FOLVITE) 1 mg tablet, Take 1 tablet (1 mg total) by mouth daily. Take one tab daily, Disp: 90 tablet, Rfl: 0 ??? furosemide (LASIX) 20 mg tablet, Take 1 tablet (20 mg total) by mouth daily., Disp: 30 tablet, Rfl: 11 ??? triamcinolone (KENALOG) 0.1 % cream, Apply to affected area 1-2 times daily as needed. On the neck and arm for 2 weeks, Disp: 30 g, Rfl: 1 Depression Screen: PHQ Screening Over the last 2 weeks, [...] more falls in the last year: No Vitals: Vitals BP 128/78 (BP Location: Right arm, Patient Position: Sitting) Pulse 86 Temp 36.2 ??C (97.1 ??F) Resp 15 Ht 152.4 cm (5') Wt 70.1 kg (154 lb 9.6 oz) LMP (LMP Unknown) SpO2 96% BMI 30.19 kg/m?? Body mass index is 30.19 kg/m??. Exam: Physical Exam Constitutional: She is oriented to person, place, and time. She appears well- developed and well-nourished. HENT: Head: Normocephalic. Right Ear: External ear normal. Left Ear: External ear normal. Nose: Nose normal. Mouth/Throat: Oropharynx is clear and moist. Eyes: Pupils are equal, round, and reactive to light. Conjunctivae and EOM are normal. Neck: Normal range of motion. Neck supple. Cardiovascular: Normal rate, regular rhythm, normal heart sounds and intact distal pulses. Pulses: Carotid pulses are 2+ on the right side, and 2+ on the left side. Radial pulses are 2+ on the right side, and 2+ on the left side. Femoral pulses are 2+ on the right side, and 2+ on the left side. Popliteal pulses are 2+ on the right side, and 2+ on the left side. Dorsalis pedis pulses are 2+ on the right side, and 2+ on the left side. Posterior tibial pulses are 2+ on the right side, and 2+ on the left side. Pulmonary/Chest: Effort normal and breath sounds normal. Right breast exhibits no inverted nipple, no mass and no nipple discharge. Left breast exhibits no inverted nipple, no mass and no nipple discharge. Abdominal: Soft. Bowel sounds are normal. Musculoskeletal: Normal range of motion. Neurological: She is alert and oriented to person, place, and time. She has normal reflexes. Skin: Skin is warm and dry. Capillary refill takes less than 2 seconds. Rash on the left upper arm and posterior neck. Red sunburn like on both arms (drug reaction to doxycycline) Psychiatric: She has a normal mood and affect. Her behavior is normal. Judgment and thought contentnormal. Nursing note and vitals reviewed. Care Team Providers: Patient Care Team: Santiago Bueno MD as PCP - General Gladis Song MD (Rheumatology) Primary Pharmacy/DME suppliers: [id number] [place], [place] - [address] [facility] [address] [id number] - [place] - [address] [facility] [address] [place] [id number] Detection of Cognitive Impairment: The patient does not have cognitive impairment based on direct observation, discussion with patientor family, or review of medical records. Health Maintenance: Health Maintenance Topics with due status: Overdue Topic Date Due DTaP/Tdap/Td Vaccine 1959 Zoster Vaccines 1998 Influenza Vaccine 05/03/2019 Health Maintenance Topics with due status: Due On Topic Date Due Regular Well Visit/Exam 05/13/2019 Health Maintenance Topics with due status: Not Due Topic Last Completion Date Colon Cancer Screening-Colonoscopy 02/06/2011 Osteoporosis Screening-Bone Density Scan 06/09/2018 Fall Risk Assessment 03/31/2019 Depression Screening-PHQ 03/31/2019 Breast Cancer Screening-Mammogram 03/31/2019 Health Maintenance Topics with due status: Completed Topic Last Completion Date Pneumococcal (PCV13 & PPSV23) 65+ yrs 05/22/2017 Hepatitis C Screening 05/22/2017 Counseling and Referral of Preventative Services: Lifestyle Recommendations Increase Physical Activity, Stop Using Tobacco, Reduce Weight and ImproveDiet Advanced Directive Durable Power of Medical Receptionist Assistant: Discussed Today: Living Will: Discussed Today: Assessment and Plan: Diagnoses and all orders for this visit: Annual physical exam (Primary) Assessment & Plan: Medication and allergies reviewed and updated. Past [...] gynecologic examinations with pelvic exam & PAP s mear, periodic blood pressure monitoring, & bone-density testing (starting @ age 65 in average-risk person) Orders: - Urinalysis reflex to microscopic and culture Urine, clean voided; Future Anxiety state Assessment & Plan: Paxil 20 mg daily. Stable at this time. Benign paroxysmal positional vertigo of left ear BMI 30.0-30.9,adult Assessment & Plan: Body mass index is 30.19 kg/m??. BMI Follow-up includes: nutrition counseling, exercise counseling and education provided. Borderline diabetes mellitus Assessment & Plan: Eating healthy. Exercising when she can. Labs pending Orders: - TSH; Future Coronary artery disease involving ute heart without angina pectoris, unspecified vessel or lesion type Assessment & Plan: On appropriate medical therapy. Continue medication. Orders: - Lipid panel; Future Gastroesophageal reflux disease without esophagitis Assessment & Plan: Sit upright postprandial. Avoid eating after 7:00 p.m. Avoid fat sugar pork etoh Call for any signs of karen bleeding from rectum, dark tarry stools, abdominal pain nausea emesis or po intolerance, Prescription sent to pharmacy we discussed at length the risk and benefits if no resolution consultGI. Heart failure with preserved ejection fraction, unspecified HF chronicity (CMS/HCC) Assessment & Plan: Followed by Cardiology. On appropriate medical therapy. Stable at this time. Continue current therapy. Orders: - Lipid panel; Future 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 (CMS/HCC) Assessment & Plan: Continues to have mild weakness. Able to help care for herself. History of arterial ischemic stroke Assessment & Plan: Patient continues on anti-platelet therapy. Will continue on the medication. Blood pressure is under good control. Late, effect, cerebrovascular disease Moderate persistent asthma with acute exacerbation Neuropathy (CMS/HCC) Assessment & Plan: Stable at this time no change in condition. Other hyperlipidemia Assessment & Plan: Taking a statin, with no side effects to medication. Labs pending today. Paroxysmal atrial fibrillation (CMS/HCC) Assessment & Plan: Followed by Cardiology. AFib is not well documented in the chart. She has had strokes in the past. Continue on Eliquis. 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 (CMS/HCC) Assessment & Plan: Followed by Dr. Gladis Song Hypertensive heart disease with chronic systolic congestive heart failure (CMS/HCC) Assessment & Plan: On appropriate medical therapy. Continue medical therapy. Obstructive sleep apnea syndrome Assessment & Plan: encourage to fu pulmonary for sleep evaluation as scheduled encourage to use cpap as rx education risk benefits side affects of nonadherance Other orders - triamcinolone (KENALOG) 0.1 % cream; Apply to affected area 1-2 times daily as needed. On the neck and arm for 2 weeks - Flu Vaccine High Dose Tri PF 65y+ IM - Fluzone Patient here for annual Medicare wellness visit and for review of complete medical problem list. All the elements of the plan were completed as outlined by CMS. A copy of the prevention plan was given to the patient. I reviewed Medicare Wellness Questionnaire (other physicians involved in care, depression screen, advanced directives), cognitive/memory, and functional assessment. I reviewed and updated the complete problem list, medication list, family history, and immunization records with the patient. I provided preventive counseling and early detection interventions to the patient through health maintenance update and summary of today's office visit. documented in this encounter Miscellaneous Notes * Assessment & Plan Note - Jessy Castellon NP - 06/02/2019 10:01 AM CDTAssociated Problem(s): Drug reaction (Resolved 06/30/2019) Sunburn type of skin reaction to doxycycline. Triamcinolone cream * Assessment & Plan Note - Jessy Castellon NP - 06/02/2019 9:45 AM CDTAssociated Problem(s): Systemic lupus erythematosus (CMS/HCC) (HCC) Followed by Dr. Gladis Song * Assessment & Plan Note - Jessy Castellon NP - 06/02/2019 9:44 AM CDTAssociated Problem(s): Paroxysmal atrial fibrillation (CMS/HCC) (HCC) Followed by Cardiology. AFib is not well documented in the chart. She has had strokes in the past. Continue on Eliquis. * Assessment & Plan Note - Jessy Castellon NP - 06/02/2019 9:44 AM CDTAssociated Problem(s): Other hyperlipidemia Taking a statin, with no side effects to medication. Labs pending today. * Assessment & Plan Note - Jessy Castellon NP - 06/02/2019 9:44 AM CDTAssociated Problem(s): Obstructive sleep apnea syndrome encourage to fu pulmonary for sleep evaluation as scheduled encourage to use cpap as rx education risk benefits side affects of nonadherance * Assessment & Plan Note - Jessy Castellon NP - 06/02/2019 9:43 AM CDTAssociated Problem(s): Neuropathy (CMS/HCC) Stable at this time no change in condition. * Assessment & Plan Anmol - Jessy Castellon NP - 06/02/2019 9:43 AM CDTAssociated Problem(s): Hypertensive heart disease with chronic systolic congestive heart failure (CMS/HCC) (HCC) On appropriate medical therapy. Continue medical therapy. * Assessment & Plan Anmol - Jessy aCstellon NP - 06/02/2019 9:43 AM CDTAssociated Problem(s): History of arterial ischemic stroke Patient continues on anti-platelet therapy. Will continue on the medication. Blood pressure is under good control. * Assessment & Plan Note - Jessy Castellon NP - 06/02/2019 9:42 AM CDTAssociated Problem(s): 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 (CMS/HCC) ([facility]) Continues to have mild weakness. Able to help care for herself. * Assessment & Plan Note - Jessy Castellon NP - 06/02/2019 9:42 AM CDTAssociated Problem(s): Heart failure with preserved ejection fraction (CMS/HCC) (HCC) Followed by Cardiology. On appropriate medical therapy. Stable at this time. Continue current therapy. * Assessment & Plan Note - Jessy Castellon NP - 06/02/2019 9:42 AM CDTAssociated Problem(s): Gastroesophageal reflux disease Sit upright postprandial. Avoid eating after 7:00 p.m. Avoid fat sugar pork etoh Call for any signs of karen bleeding from rectum, dark tarry stools, abdominal pain nausea emesis or po intolerance, Prescription sent to pharmacy we discussed at length the risk and benefits if no resolution consultGI. * Assessment & Plan Note - Jessy Castellon NP - 06/02/2019 9:42 AM CDTAssociated Problem(s): CAD (coronary artery disease) On appropriate medical therapy. Continue medication. * Assessment & Plan Note - Jessy Castellon NP - 06/02/2019 9:41 AM CDTAssociated Problem(s): Borderline diabetes mellitus Eating healthy. Exercising when she can. Labs pending * Assessment & Plan Note - Jessy Castellon NP - 06/02/2019 9:41 AM CDTAssociated Problem(s): BMI 28.0-28.9,adult Body mass index is 30.19 kg/m??. BMI Follow-up includes: nutrition counseling, exercise counseling and education provided. * Assessment & Plan Note - Jessy Castellon NP - 06/02/2019 9:41 AM CDTAssociated Problem(s): Anxiety state Paxil 20 mg daily. Stable at this time. * Assessment & Plan Note - Jessy Castellon NP - 06/02/2019 9:41 AM CDTAssociated Problem(s): Annual physical exam Medication and allergies reviewed and updated. Past [...] gynecologic examinations with pelvic exam & PAP s mear, periodic blood pressure monitoring, & bone-density testing (starting @ age 65 in average-risk person) documented in this encounter Plan of Treatment Not on file documented as of this encounter Procedures Procedure Name Priority Date/Time Associated Diagnosis Comments URINALYSIS AND REFLEX TO MICROSCOPIC AND CULTURE Routine 06/02/2019 10:04 AM CDT Annual physical exam TSH Routine 06/02/2019 10:04 AM CDT Borderline diabetes mellitus LIPID PANEL Routine 06/02/2019 10:04 AM CDT Coronary artery disease involving ute heart without angina pectoris, unspecified vessel or lesion type Heart failure with preserved ejection fraction, unspecified HF chronicity (CMS/HCC) documented in this encounter Results * (ABNORMAL) Lipid panel (06/02/2019 10:04 AM CDT) Cholesterol 116 <200 mg/dL [facility] [place] HDL 49(L) >50 mg/dL [facility] [place] Triglycerides 63 <150 mg/dL [facility] [place] LDL 53 mg/dL (calc) [facility] [place] Comment: Reference range: <100 Desirable range <100 mg/dL for primary prevention; ?? <70 mg/dL for patients with CHD or diabetic patients with > or = 2 CHD risk factors. LDL-C is now calculated using the Soham-George calculation, which is a validated novel method providing better accuracy than the Friedewald equation in the estimation of LDL-C. Soham SS et al. WALE. 2013;310(19): 6903-2379 (http://education.[employer]/faq/JKA944) Chol/HDL ratio 2.4 <5.0 (calc) [facility] [place] Non-HDL, (LDL+VLDL) 67 <130 mg/dL (calc) [facility] [place] Comment: For patients with diabetes plus 1 major ASCVD risk factor, treating to a non-HDL-C goal of <100 mg/dL (LDL-C of <70 mg/dL) is considered a therapeutic option. Blood specimen (specimen) 06/02/2019 10:04 AM CDT 06/03/2019 7:15 AM CDT Narrative Resulting Agency Comment Performing Organization Information: ?Site ID: [place] ?Name: [facility] ?Address: [id number] [id number] ?Director: Sukhdev Beverly D.O., GHANSHYAM Jessy Rossi NP LAB BLOOD ORDERAB LES Final Result Performing Organization Address [facility] Co de Phone Number [facility] [place] [address] [place] * TSH (06/02/2019 10:04 AM CDT) [facility] TSH 1.71 0.40 - 4.50 mIU/L [facility] [place] Blood specimen (specimen) 06/02/2019 10:04 AM CDT 06/03/2019 7:16 AM CDT Narrative Resulting Agency Comment Performing Organization Information: ?Site ID: [place] ?Name: [facility] ?Address: [facility] [address] [phone] ?Director: Sukhdev Beverly D.O., GHANSHYAM us Jessy Rossi NP LAB BLOOD ORDERAB LES Final Result Performing Organization Address [facility] de Phone Number [facility] [place] * Urinalysis reflex to microscopic and culture Urine, clean voided (06/02/2019 10:04 AM CDT) Pathologist [facility] Color, ur TNP [facility] [place] Comment: Test not performed. No urine received. Urine, clean voided 06/02/2019 10:04 AM CDT 06/03/2019 7:15 AM CDT Narrative Resulting Agency Comment Performing Organization Information: ?Site ID: [place] ?Name: [facility] ?Address: [facility] [address] [id number] ?Director: Sukhdev Beverly D.O., MPH us Jessy Rossi NP LAB MICROBIOLOGY - GENERAL ORDERABLES Final Result Performing Organization Address [facility] Co de Phone Number [facility] [place] documented in this encounter Visit Diagnoses Diagnosis Annual physical exam- Primary Routine general medical examination at a health care facility Anxiety state Anxiety state, unspecified Benign paroxysmal positional vertigo of left ear BMI 30.0-30.9,adult Borderline diabetes mellitus Other abnormal glucose Coronary artery disease involving ute heart without angina pectoris, unspecified vessel or lesion type Gastroesophageal reflux disease without esophagitis Esophageal reflux Heart failure with preserved ejection fraction, unspecified HF chronicity ([facility]) 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 ([facility]) ([facility]) History of arterial ischemic stroke Transient ischemic attack (TIA), and cerebral infarction without residual deficits Late, effect, cerebrovascular disease Unspecified late effects of cerebrovascular disease Moderate persistent asthma with acute exacerbation Neuropathy (CMS/[facility]) Mononeuritis of unspecified site Other hyperlipidemia Paroxysmal atrial fibrillation ([facility]) (HCC) Atrial fibrillation 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 ([facility]) Hypertensive heart disease with chronic systolic congestive heart failure ([facility]) ([facility]) Obstructive sleep apnea syndrome Obstructive sleep apnea (adult) (pediatric) Adverse effect of drug, subsequent encounter documented in this encounter Orders Lab Orders Without Results Count Last Ordered D ate First Ordered Date CBC WITH AUTO DIFFERENTIAL 1 06/02/2019 COMPREHENSIVE METABOLIC PANEL 1 06/02/2019 Immunization/Injection Count Last Ordered Date First Ordered Date FLU VACCINE HD TRI PF 65Y+ IM 1 06/02/2019 documented in this encounter Care Teams Scorer Single Relationship Specialty Start Date End Date Santiago Bueno MD [address] [facility] [address] [place] [address] PCP - General 11/30/16 06/09/20 [place] [id number] [facility] [address] [place] [address] Rheumatology 07/15/17 documented as of this encounter
--- OUTSIDE RECORDS SUMMARY | 2024-08-29 10:21 | XMS_ITS | Encounter Summary ---
Author Organization [facility] Address [address] [place] [address] Phone Care Team Providers Care Fashion Marketer Name Role Phone Santiago Bueno MD Primary Care Provider [phone] Gladis Song MD Unavailable Encounter Details Date Type Department Care Team (Late st Contact Info) Description 06/04/2019 Orders Only [facility] Cardiology [address] [facility] [address] [place] [address] [place] [address] Judah Duggan MD [address] [place] [address] Coronary artery disease involving [place]hiok heart without angina pectoris, unspecified vessel or [...] on file Legal Sex Female 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 Gender Identity Not on file Sexual Orientation Not on file Occupation Industry Job Start Date Job End Date Retired Not on file Not on file Not on file documented as of this encounter Plan of Treatment Scheduled Orders Name Type Priority Associated Diagnoses Orde r Schedule Comprehensive metabolic panel Lab Routine Coronary artery disease involving akhiok heart without angina pectoris, unspecified vessel or lesion type Expected: 06/04/2019, Expires: 06/04/2020 documented as of this encounter Visit Diagnoses Diagnosis Coronary artery disease involving akhiok heart without angina pectoris, unspecified vessel or lesion type- Primary documented in this encounter Care Teams Fashion Marketer Relationship Specialty Start Date End Date Santiago Bueno MD [address] [place] [address] PCP - General 11/30/16 06/09/20 [place] [address] [facility] [address] [place] [address] Rheumatology 07/15/17 documented as of this encounter
--- OUTSIDE RECORDS SUMMARY | 2024-08-29 10:21 | XMS_ITS | Encounter Summary ---
Author Organization [facility] Address [address] [place] [address] Phone Care Team Providers Care Edge Bander Operator Name Role Phone Santiago Bueno MD Primary Care Provider [phone] Gladis Song MD Unavailable Encounter Details Date Type Department Care Team (Latest Contact Info) Description 11/26/2018 Orders Only [facility] Scanning, Provider Social History Tobacco Use Types Packs/Day Years Used Date Smoking Tobacco: Never Smokeless Tobacco: Never Alcohol Use Standard Drinks/Week Comments Yes 0 (1 standard drink = 0.6 oz pur e alcohol) rare wine Comments No Sex and Gender Information Value Date Recorded Sex Assigned at Not on file 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 Sex 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 Gender Identity Not on file Sexual Orientation Not on file Occupation Industry Job Start Date Job End Date Retired Not on file Not on file Not on file documented as of this encounter Plan of Treatment Not on file documented as of this encounter Procedures Procedure Name Priority Date/Time Associated Diagnosis Comments SCAN - LABS 11/26/2018 documented in this encounter Results * SCAN - LABS (11/26/2018) us Provider Scanning Final Result documented in this encounter Visit Diagnoses Not on filedocumented in this encounter Care Teams Edge Bander Operator Relationship Specialty Start Date End Date Santiago Bueno MD [address] [place] [address] PCP - General 11/30/16 06/09/20 [place] [address] [facility] [address] [place] [address] Rheumatology 07/15/17 documented as of this encounter
--- OUTSIDE RECORDS SUMMARY | 2024-08-29 10:21 | XMS_ITS | Encounter Summary ---
Author Organization [facility] Address [address] [facility] [address] [place] [address] Care Team Providers Care Oven Operator Name Role Phone Santiago Bueno MD Primary Care Provider [phone] Gladis Song MD Unavailable Reason for Visit * Reason Onset Date Comments Dr. Bueno Symptom Based Call 06/16/2019 Encounter Details Date Type Department Care Team (Late st Contact Info) Description 06/16/2019 Telephone [facility] [address] [facility] [address] [place] [address] Santiago Bueno MD [address] [facility] [address] [place] [address] Dr. 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 Scheduled pt for 06/30 at 10:15. Also gave pt instructions on changing medication dosage. * Telephone Encounter - Santiago Bueno MD - 06/17/2019 10:08 AM CDT She'll need an appointment in case this isn't just heartburn. She is already on pantoprazole (Protonix) which should eliminate heartburn symptoms in 99% of people, and if it isn't working it raises the question of whether the diagnosis is incorrect. In the meantime, she should try doubling the pantoprazole (taking it BID at the start of breakfast and dinner) to see if that has any effect. Her response to doing that will help us determine if we have the right diagnosis or not. * Telephone Encounter - Verna Conteh - 06/16/2019 11:54 AM CDT Symptom Based Call Chief Complaint: heartburn Duration: 4-6 months Appointment Details: Patient decline appt and nurse triage Caller's Callback #: [phone] Additional Comments: Patient prefers to speak with Dr. Bueno only. Please advise Did you relay expectation for call back (store product demonstrator: Red Flag 10-15 min; non- emergent up to 3 hours)(Practice: Red Flag warm transfer; non-emergent up to 24 hours)? Yes documented in this encounter Plan of Treatment Not on file documented as of this encounter Visit Diagnoses Not on filedocumented in this encounter Care Teams Oven Operator Relationship Specialty Start Date End Date Santiago Bueno MD [address] [place] [address] PCP - General 11/30/16 06/09/[address] [place] [address] [facility] [address] [place] [address] Rheumatology 07/15/17 documented as of this encounter
--- OUTSIDE RECORDS SUMMARY | 2024-08-29 10:21 | XMS_ITS | Encounter Summary ---
Author Organization [facility] Facility Care Team Providers Care Rehab Nursing Tech Name Role Phone Santiago Bueno MD Primary Care Provider [phone] Gladis Song MD Unavailable Encounter Details Date Type Department Care Team (Latest Contact Info) Description 03/31/2019 Travel Social History Tobacco Use Types Packs/Day Years Used Date Smoking Tobacco: Never Smokeless Tobacco: Never Alcohol Use Standard Drinks/Week Comments Yes 0 (1 standard drink = 0.6 oz pur e alcohol) rare wine Comments No Sex and Gender Information Value Date Recorded Sex Assigned at Not on file Legal Sex Female 12:11 AM WRIST HEMMER Gender Identity Not on file Sexual Orientation Not on file Occupation Industry Job Start Date Job End Date Retired Not on file Not on file Not on file documented as of this encounter Plan of Treatment Not on file documented as of this encounter Visit Diagnoses Not on filedocumented in this encounter Care Teams Rehab Nursing Tech Relationship Specialty Start Date End Date Santiago Bueno MD [address] [place] [address] PCP - General 11/30/16 06/09/20 [place] [address] [place] [address] Rheumatology 07/15/17 documented as of this encounter
--- OUTSIDE RECORDS SUMMARY | 2024-08-29 10:21 | XMS_ITS | Encounter Summary ---
Author Organization [facility] Address [address] [place] [address] Phone Care Team Providers Care Technical Implementation Lead Name Role Phone Santiago Bueno MD Primary Care Provider [phone] Gladis Song MD Unavailable Reason for Visit * Reason Comments Return Patient * Neurology (Routine) - Closed Specialty Diagnoses / Procedures Referred By Contac t Referred To Contact Neurology Diagnoses Appt Comment: 1 YR F/U Procedures RETURN Santiago Bueno MD Phone: tel: fax: Jluis Gautam MD PhD [address] [place] [address] Phone: tel: fax: Referral ID Status Reason Start Date Expiration Date Visits Re quested Visits Authorized [id number] Closed 08/01/2018 02/10/2020 1 1 Encounter Details Date Type Department Care Team (Latest Contact Info) Description 12/26/2018 10:30 AM CDT Office Visit [facility] Stroke [address] [place] [address] Jluis Gautam MD PhD [address] [place] [address] 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 (CMS/HCC) (Primary Dx); 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 (CMS/HCC); Essential hypertension; Neuropathy (CMS/HCC) Social History Tobacco Use Types Packs/Day Years Used Date Smoking Tobacco: Never Smokeless Tobacco: Never Alcohol Use Standard Drinks/Week Comments Yes 0 (1 standard drink = 0.6 oz pur e alcohol) rare wine Comments No Sex and Gender Information Value Date Recorded Sex Assigned at Not on file Legal Sex Female 12:11 AM PRACTICE PROFESSIONAL Gender Identity Not on file Sexual Orientation Not on file Occupation Industry Job Start Date Job End Date Retired Not on file Not on file Not on file documented as of this encounter Last Filed Vital Signs Vital Sign Reading Time Taken Comments Blood Pressure 101/64 12/26/2018 10:18 AM CDT Pulse 69 12/26/2018 10:18 AM CDT Temperature - - Respiratory Rate - - Oxygen Saturation - - Inhaled Oxygen Concentration - - Weight 71.4 kg (157 lb 6.4 oz) 12/26/2018 10:18 AM CDT Height 152.4 cm (5') 12/26/2018 10:18 AM CDT Body Mass Index 30.74 12/26/2018 10:18 AM CDT documented in this encounter Progress Notes * Jluis Gautam MD PhD - 12/26/2018 10:30 AM CDT Patient Name: MIRELLA ORANTES Medical Record Number (MRN): [id number] Date of (): 1950 Encounter Date: 12/26/2018 Chief Complaint Mirella Orantes is a 68 y.o. year old right handed woman with PMH of migraines with aura, transient global amnesia, SLE, TGA (x2), GERD, OA, and MDD who is here for follow-up of hospitalization for subcortical left MCA stroke. HPI Since the last visit on 07/19/17, she has done well without any new signs or symptoms suggestive ofstroke or TIA. She denies any major illnesses or hospitalizations. Dr. Duggan indicates that he wouldlike to continue Eliquis due to suspicion of atrial fibrillation. She is tolerating Eliquis without complications. She has recovered very well, but still has very mild right sided weakness, but does not affect her daily activities. She continues to complain of tremor in her right hand, which sometimes leads to spilling of liquids, but is not affecting life style in a major way. She indicates that she is not interested in medications. She does not have tremor in her left hand. She notes that she has numbness in both of her feet, and is undergoing work-up for neuropathy. Allergies Allergen Reactions ??? Levofloxacin Nausea only and Headache Reaction: NAUSEA, , , Reaction: headaches, , Reaction: Nausea, ??? Nitrofurantoin ??? Sulfa (Sulfonamide Antibiotics) Swelling Reaction: Swelling, ??? Latex Other (See comments) Reaction: RASH;, Current Outpatient Medications on File Prior to Visit Medication Sig Dispense Refill ??? calcium carbonate (OS-LEELA) 1,500 mg (600 mg of elemental calcium) tablet Take 2,000 mg of elemental calcium by mouth ??? albuterol HFA (PROVENTIL HFA,VENTOLIN HFA,PROAIR HFA) 90 mcg/actuation inhaler Inhale 90 puffs as needed ??? apixaban (ELIQUIS) 5 mg tablet Take 1 tablet (5 mg total) by mouth 2 (two) times a day 60 tablet 6 ??? atorvastatin (LIPITOR) 80 mg tablet Take 1 tablet (80 mg total) by mouth daily. 90 tablet 3 ??? cholecalciferol (VITAMIN D3) 2,000 unit tablet take 1 by Oral route every day 0 0 ??? FLOVENT HFA 110 mcg/actuation inhaler INHALE 1 PUFF TWICE DAILY .RINSE MOUTH AFTER USE 12 Inhaler 2 ??? folic acid (FOLVITE) 1 [...] (40 mg total) by mouth daily 30 [id number] ??? PARoxetine (PAXIL) 20 mg tablet Take 1 tablet (20 mg total) by mouth daily. 90 tablet 1 ??? potassium chloride ER (KLOR-CON,K-DUR) 20 mEq CR tablet Take 2 tablets every morning; 2 tabletsevery evening 360 tablet 3 ??? syringe with needle 1 mL 28 gauge x 1/2 syringe Use to inject 0.6ml of methotrexate once weekly 12 Syringe 3 ??? VENTOLIN HFA 90 mcg/actuation inhaler INHALE 2 PUFFS EVERY 4-6 HOURS NEEDED 18 Inhaler 1 No current facility-administered medications on file prior to visit. Patient Active Problem List Diagnosis ??? Systemic lupus erythematosus (CMS/HCC) ??? Gastroesophageal reflux disease ??? Tremor ??? Osteopenia ??? Asthma ??? Anxiety state ??? Hypertension ??? Therapeutic drug monitoring ??? BMI 31.0-31.9,adult ??? Late, effect, cerebrovascular disease ??? Borderline diabetes mellitus ??? Bronchial asthma ??? Osteoarthritis ??? Restless legs ??? Obstructive sleep apnea syndrome ??? Obesity with body mass index 30 or greater ??? Patent foramen ovale ??? Asymptomatic microscopic hematuria ??? Benign paroxysmal positional vertigo of left ear ??? Cough ??? Paroxysmal atrial fibrillation (CMS/HCC) ??? Other hyperlipidemia ??? History of ischemic stroke without residual deficits ??? Epigastric abdominal pain ??? CAD (coronary artery disease) ??? Heart failure with preserved ejection fraction (CMS/HCC) ??? 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 (CMS/HCC) ??? Neuropathy (CMS/HCC) Past Medical History: Diagnosis Date ??? Asthma ??? Cerebrovascular accident (CVA) (CMS/HCC) Stroke ??? Heart murmur ??? 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 Hyperlipidemia ??? Hypertension ??? Lupus (CMS/HCC) Social History Socioeconomic History ??? Marital status: [...] file Gets together: Not on file Attends hindu service: Not on file Active member of [...] Social History Narrative ??? Not on file Vital Signs Vitals: 12/26/18 1018 BP: 101/64 BP Location: Right arm Patient Position: Sitting Pulse: 69 Weight: 71.4 kg (157 lb 6.4 oz) Height: 152.4 cm (5') Review of Systems [...] time, place and person Attention & Concentration: Alert and oriented x 3; Able to recall presidents to [place], but not prior presidents. Good serial 7's. Memory: 3/3 immediate recall; 3/3 at 5 min; 3/3 with prompting Language: comprehension, naming, repetition, and [...] to LT and vibration below knee bilaterally Cortical Sensory Modality: graphesthesia, stereognosis and double simultaneous stimulation intact bilaterally; thumb finding intact bilaterally Coordination: Finger to nose: intact bilaterally Heel to tena: intact bilaterally Rapid alternate movement: slowed on right upper exremity Romberg: negative Gait: Normal gait and station; normal tandem gait. Assessment/Plan Diagnosis Plan 1. 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 (CMS/HCC) 2. 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 (CMS/HCC) 3. Essential hypertension 4. Neuropathy (CMS/HCC) 68 year old female with HTN, HLD, who is has had recurrent subcortical infarcts. She is currently on Eliquis, per Dr. Duggan for suspicion of atrial fibrillation. She has no evidence of paroxysmal a-fib (30-day event monitor from 2014 and more recently). Plan 1. Stroke prevention - she has had recurrent subcortical strokes, likely due to aterioroloscleroticrisk factors. --Continue aggressive BP control --Continue treatment with high dose atorvastatin. --Treatment with Eliquis per Dr. Duggan 2. Neuropathy--undergoing work-up to determine underlying etiology 3. Follow-up PRN. Return if symptoms worsen or fail to improve. Future Appointments Date Time Provider Department Center 11/27/2019 10:00 AM Judah Duggan MD [facility] Cardiology Jluis Gautam M.D., Ph.D. 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 calcium carbonate (OS-LEELA) 1,500 mg (600 mg of elemental calcium) tabletIndications: Post-Menopausal Osteoporosis Prevention Take 2,000 mg of elemental calcium by mouth every morning albuterol HFA (PROVENTIL HFA,VENTOLIN HFA,PROAIR HFA) 90 mcg/actuation inhaler Inhale 90 puffs as needed 9 added in this encounter Care Teams Technical Implementation Lead Relationship Specialty Start Date End Date Santiago Bueno MD [address] [place] [address] PCP - General 11/30/16 06/09/20 [place] [address] [place] [address] Rheumatology 07/15/17 documented as of this encounter
--- OUTSIDE RECORDS SUMMARY | 2024-08-29 10:21 | XMS_ITS | Encounter Summary ---
Author Organization [facility] Address [address] [place] [address] Care Team Providers Care Poultry Hanger Name Role Phone Santiago Bueno MD Primary Care Provider [phone] Gladis Song MD Unavailable Reason for Visit * Reason Comments Heartburn Encounter Details Date Type Department Care Team (Latest Contact Info) Description 06/30/2019 10:15 AM CDT Office Visit [facility] [address] [place] [address] Santiago Bueno MD [address] [place] [address] [address] [place] [address] Gastroesophageal reflux disease without esophagitis (Primary Dx); 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 (CMS/HCC); Paroxysmal atrial fibrillation (CMS/HCC); Epigastric abdominal pain Social History Tobacco Use Types Packs/Day Years Used Date Smoking Tobacco: Never Smokeless Tobacco: Never Alcohol Use Standard Drinks/Week Comments Yes 0 (1 standard drink = 0.6 oz pur e alcohol) rare wine PHQ-2 Answer Date Recorded PHQ-2 Score 0 04/24/2019 Comments No Sex and Gender Information Value Date Recorded Sex Assigned at Not on file 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 Gender Identity Not on file Sexual Orientation Not on file Occupation Industry Job Start Date Job End Date Retired Not on file Not on file Not on file documented as of this encounter Last Filed Vital Signs Vital Sign Reading Time Taken Comments Blood Pressure 124/80 06/30/2019 10:05 AM CDT Pulse 100 06/30/2019 10:05 AM CDT Temperature - - Respiratory Rate - - Oxygen Saturation 96% 06/30/2019 10:05 AM CDT Inhaled Oxygen Concentration - - Weight 68.9 kg (152 lb) 06/30/2019 10:05 AM CDT Height 152.4 cm (5') 06/30/2019 10:05 AM CDT Body Mass Index 29.69 06/30/2019 10:05 AM CDT documented in this encounter Progress Notes * Santiago Bueno MD - 06/30/2019 10:15 AM CDT Subjective/Objective Patient ID: Chio Orantes [: 1950] Chief Complaint Heartburn Chio is a 68 y.o. female who returns today for a problem-based visit. Has been having severe heartburn all summer. Tried looking onto other medications that might be causing it and never found any such thing. She ran out of metoprolol and then found that her symptoms were much better. She spoke to her cigarette book maker (Dr. Duggan) who said she could try staying off the metoprolol and just watch her blood pressure. Since stopping the metoprolol she's had ZERO heartburn. However, her heart rates have been running in the low 100's much of the time. Review of Systems Constitutional: Negative for chills, fatigue and fever. HENT: Negative for ear pain and sore throat. Eyes: Negative for pain and redness. Respiratory: Negative for cough and shortness of breath. Cardiovascular: Negative for chest pain, palpitations and leg swelling. Gastrointestinal: Negative for abdominal pain, constipation, diarrhea and nausea. Endocrine: Negative for cold intolerance, heat intolerance, polydipsia and polyphagia. Genitourinary: Negative for dysuria, hematuria and urgency. Musculoskeletal: Negative for arthralgias and myalgias. Skin: Negative for pallor and rash. Neurological: Negative for speech difficulty and headaches. Hematological: Negative for adenopathy. Does not bruise/bleed easily. Psychiatric/Behavioral: Negative for confusion and self-injury. Blood pressure 124/80, pulse 100, height 152.4 cm (5'), weight 68.9 kg (152 lb), SpO2 96 %, not currently . Physical Exam Vitals signs reviewed. Constitutional: General: She is not in acute distress. HENT: Head: Normocephalic. Mouth/Throat: Pharynx: No oropharyngeal exudate. Eyes: General: No scleral icterus. Conjunctiva/sclera: Conjunctivae normal. Neck: Musculoskeletal: Neck supple. Thyroid: No thyromegaly. Vascular: No JVD. Cardiovascular: Rate and Rhythm: Normal rate. Rhythm irregular. Heart sounds: No friction rub. Pulmonary: Effort: Pulmonary effort is normal. Breath sounds: Normal breath sounds. Abdominal: General: Bowel sounds are normal. Palpations: Abdomen is soft. Tenderness: There is no tenderness. Lymphadenopathy: Cervical: No cervical adenopathy. Skin: General: Skin is warm and dry. Neurological: Mental Status: She is alert and oriented to person, place, and time. Psychiatric: Behavior: Behavior normal. Assessment/Plan Diagnoses and all orders for this visit: Gastroesophageal reflux disease without esophagitis (K21.9) (Primary) Assessment & Plan: Resolved after metoprolol stopped. Though I've never seen someone have this side effect before, it has been reported with 1% incidence. See under atrial fib. 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 Continues on HCQ, MTX, leflunomide. Paroxysmal atrial fibrillation (CMS/HCC) (I48.0) Assessment & Plan: On Eliquis for CVA prophylaxis. Symptomatically improved off beta naye but HR is averaging around 100. Will defer to Dr. Duggan for what to try next. She may do better with a different BB (eg carvedilol),or a calcium channel naye -- but those are also well-known to cause GERD. Epigastric abdominal pain (R10.13) Assessment & Plan: EGD negative. Sx resolved after metoprolol stopped. documented in this encounter Miscellaneous Notes * Assessment & Plan Note - Santiago Bueno MD - 06/30/2019 11:04 AM CDT Associated Problem(s): Paroxysmal atrial fibrillation (CMS/HCC) (HCC) On Eliquis for CVA prophylaxis. Symptomatically improved off beta naye but HR is averaging around 100. Will defer to Dr. Duggan for what to try next. She may do better with a different BB (eg carvedilol),or a calcium channel naye -- but those are also well-known to cause GERD. * Assessment & Plan Note - Santiago Bueno MD - 06/30/2019 11:04 AM CDT Associated Problem(s): Systemic lupus erythematosus (CMS/HCC) (HCC) Stable, no signs of flare. Continues on HCQ, MTX, leflunomide. * Assessment & Plan Note - Santiago Bueno MD - 06/30/2019 11:03 AM CDT Associated Problem(s): Gastroesophageal reflux disease Resolved after metoprolol stopped. Though I've never seen someone have this side effect before, it has been reported with 1% incidence. See under atrial fib. * Assessment & Plan Note - Santiago Bueno MD - 06/30/2019 11:03 AM CDT Associated Problem(s): Epigastric abdominal pain EGD negative. Sx resolved after metoprolol stopped. * Assessment & Plan Note - Kel Kraus MA - 06/30/2019 10:11 AM CDT Associated Problem(s): BMI 28.0-28.9,adult BMI Follow-up includes: nutrition counseling, exercise counseling and education provided. documented in this encounter Plan of Treatment Not on file documented as of this encounter Visit Diagnoses Diagnosis Gastroesophageal reflux disease without esophagitis- Primary Esophageal reflux 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 (HCC) Paroxysmal atrial fibrillation (CMS/HCC) (HCC) Atrial fibrillation Epigastric abdominal pain Abdominal pain, epigastric documented in this encounter Historical Medications * This list may reflect changes made after this encounter. leflunomide (ARAVA) 20 mg tablet Take 20 mg by mouth daily 0 04/03/2019 03/18/2020 added in this encounter Care Teams Poultry Hanger Relationship Specialty Start Date End Date Santiago Bueno MD [address] [place] [address] PCP - General 11/30/16 06/09/20 [place] [address] [place] [address] Rheumatology 07/15/17 documented as of this encounter
--- OUTSIDE RECORDS SUMMARY | 2024-08-29 10:21 | XMS_ITS | Encounter Summary ---
Author Organization [facility] Address [address] [place] [address] Care Team Providers Care Lead Business Systems Analyst Name Role Phone Santiago Bueno MD Primary Care Provider [phone] Gladis Song MD Unavailable Encounter Details Date Type Department Care Team (Late st Contact Info) Description 05/26/2019 Orders Only [facility] Health Information Management [address] [place] [address] Santiago Bueno MD [address] [place] [address] Social History Tobacco Use Types Packs/Day Years Used Date Smoking Tobacco: Never Smokeless Tobacco: Never Alcohol Use Standard Drinks/Week Comments Yes 0 (1 standard drink = 0.6 oz pur e alcohol) rare wine PHQ-2 Answer Date Recorded PHQ-2 Score 0 04/24/2019 Comments No Sex and Gender Information Value Date Recorded Sex Assigned at Not on file 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 Gender Identity Not on file Sexual Orientation Not on file Occupation Industry Job Start Date Job End Date Retired Not on file Not on file Not on file documented as of this encounter Plan of Treatment Not on file documented as of this encounter Procedures Procedure Name Priority Date/Time Associated Diagnosis Comments SCAN - LABS 05/26/2019 documented in this encounter Results * SCAN - LABS (05/26/2019) Santiago Bueno MD Final Result documented in this encounter Visit Diagnoses Not on filedocumented in this encounter Care Teams Lead Business Systems Analyst Relationship Specialty Start Date End Date Santiago Bueno MD [address] [place] [address] PCP - General 11/30/16 06/09/20 [place] [address] [address] [place] [address] Rheumatology 07/15/17 documented as of this encounter
--- OUTSIDE RECORDS SUMMARY | 2024-08-29 10:21 | XMS_ITS | Encounter Summary ---
Author Organization [facility] Care Team Providers Care Bridge Operator Slip Name Role Phone Santiago Bueno MD Primary Care Provider [phone] Gladis Song MD Unavailable Encounter Details Date Type Department Care Team (Latest Contact Info) Description 02/24/2019 Travel Social History Tobacco Use Types Packs/Day Years Used Date Smoking Tobacco: Never Smokeless Tobacco: Never Alcohol Use Standard Drinks/Week Comments Yes 0 (1 standard drink = 0.6 oz pur e alcohol) rare wine Comments No Sex and Gender Information Value Date Recorded Sex Assigned at Not on file Legal Sex Female 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
--- OUTSIDE RECORDS SUMMARY | 2024-08-29 10:21 | XMS_ITS | Encounter Summary ---
Author Organization [facility] Address [address] [facility] [address] [place] [address] Care Team Providers Care Head Sampler Name Role Phone Santiago Bueno MD Primary Care Provider [phone] Gladis Song MD Unavailable Reason for Visit * Reason Comments Cough Encounter Details Date Type Department Care Team (Late st Contact Info) Description 02/24/2019 1:15 PM CDT Office Visit [facility] [address] [facility] [address] [place] [address] Tana Haddad, JOURNEYMAN POWER PLANT OPERATOR [address] [place] [address] Moderate asthma with acute exacerbation, unspecified whether persistent (Primary Dx); 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 (CMS/HCC); Obstructive sleep apnea syndrome; Heart failure with preserved ejection fraction, unspecified HF chronicity (CMS/HCC); Acute non-recurrent maxillary sinusitis; BMI 29.0-29.9,adult Social History Tobacco Use Types Packs/Day Years Used Date Smoking Tobacco: Never Smokeless Tobacco: Never Alcohol Use Standard Drinks/Week Comments Yes 0 (1 standard drink = 0.6 oz pur e alcohol) rare wine Comments No Sex and Gender Information Value Date Recorded Sex Assigned at Not on file 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 Gender Identity Not on file Sexual Orientation Not on file Occupation Industry Job Start Date Job End Date Retired Not on file Not on file Not on file documented as of this encounter Last Filed Vital Signs Vital Sign Reading Time Taken Comments Blood Pressure 118/72 02/24/2019 1:10 PM CDT Pulse 84 02/24/2019 1:10 PM CDT Temperature 37.2 ??C (98.9 ??F) 02/24/2019 1:10 PM CD T Respiratory Rate 18 02/24/2019 1:10 PM CDT Oxygen Saturation 96% 02/24/2019 1:10 PM CDT Inhaled Oxygen Concentration - - Weight 69.4 kg (153 lb) 02/24/2019 1:10 PM CDT Height 152.4 cm (5') 02/24/2019 1:10 PM CDT Body Mass Index 29.88 02/24/2019 1:10 PM CDT documented in this encounter Ordered Prescriptions Prescription Sig Dispense Quantity Refills Last Filled Start Date End Date benzonatate (TESSALON) 200 mg capsule Take 1 capsule (200 mg total) by mouth 3 (three) times a day as needed for cough 42 capsule 02/24/2019 9 methylPREDNISolone (MEDROL DOSEPACK) 4 mg Dosepack Take as directed on package. 21 tablet 02/24/2019 9 amoxicillin-clavul anate (AUGMENTIN) 875-125 mg per tablet Take 1 tablet by mouth 2 (two) times a day for 10 days 20 tablet 02/24/2019 9 albuterol HFA (PROVENTIL HFA,VENTOLIN HFA,PROAIR HFA) 90 mcg/actuation inhalerIndications :Bronchospastic Pulmonary Disease Inhale 90 puffs every 4 (four) hours as needed for wheezing or shortness of breath 1 Inhaler 2 02/24/2019 9 documented in this encounter Progress Notes * Tana Haddad NP - 02/24/2019 1:15 PM CDT Subjective/Objective Patient ID: Chio Orantes is a 68 y.o. female. Chief Complaint Cough 68 yo female presents with 5 day duration of cough uri temp 100 oral F Has been doing home remedy no otc prep Admits fatigue robledo Has hx of asthma and dont use mdi much due to cost She is taking care of family who has been ill with same thing Admits difficulty sleeping hs due to cough Current Outpatient Medications: ??? albuterol HFA (PROVENTIL HFA,VENTOLIN HFA,PROAIR HFA) 90 mcg/actuation inhaler, Inhale 90 puffsevery 4 (four) hours as needed for wheezing or shortness of breath, Disp: 1 Inhaler, Rfl: 2 ??? amoxicillin-clavulanate (AUGMENTIN) 875-125 mg per tablet, Take 1 tablet by mouth 2 (two) timesa day for 10 days, Disp: 20 tablet, Rfl: 0 ??? apixaban (ELIQUIS) 5 mg tablet, Take 1 tablet (5 mg total) by mouth 2 (two) times a day, Disp: 60 tablet, Rfl: 6 ??? atorvastatin (LIPITOR) 80 mg tablet, Take 1 tablet (80 mg total) by mouth daily., Disp: 90 tablet, Rfl: 3 ??? benzonatate (TESSALON) 200 mg capsule, Take 1 capsule (200 mg total) by mouth 3 (three) times aday as needed for cough, Disp: 42 capsule, Rfl: 0 ??? calcium carbonate (OS-LEELA) 1,500 mg (600 mg of elemental calcium) tablet, Take 2,000 mg of elemental calcium by mouth, Disp: , Rfl: ??? cholecalciferol (VITAMIN D3) 2,000 unit tablet, take 1 by Oral route every day, Disp: 0, Rfl: 0 ??? FLOVENT HFA 110 mcg/actuation inhaler, INHALE 1 PUFF TWICE DAILY .RINSE MOUTH AFTER USE, Disp: 12 Inhaler, Rfl: 2 ??? folic acid (FOLVITE) 1 mg tablet, Take 1 tablet (1 mg total) by mouth daily. Take one tab daily, Disp: 90 tablet, Rfl: 0 ??? furosemide (LASIX) 20 mg tablet, Take 1 tablet (20 mg total) by mouth daily., Disp: 30 tablet, Rfl: 11 ??? hydroCHLOROthiazide (HYDRODIURIL) 25 mg tablet, TAKE 1 TABLET EVERY DAY, Disp: 90 tablet, Rfl: 1 ??? hydroxychloroquine (PLAQUENIL) 200 mg tablet, Take [...] 1 ??? montelukast (SINGULAIR) 10 mg tablet, Take 1 tablet (10 mg total) by mouth nightly., Disp: 90 tablet, Rfl: 1 ??? nitroglycerin [...] weekly, Disp: 12 Syringe, Rfl: 3 ??? VENTOLIN HFA 90 mcg/actuation inhaler, INHALE 2 PUFFS EVERY 4-6 HOURS NEEDED, Disp: 18 Inhaler, Rfl: 1 Allergies Allergen Reactions ??? Levofloxacin Nausea only and Headache Reaction: NAUSEA, , , Reaction: headaches, , Reaction: Nausea, ??? Nitrofurantoin ??? Sulfa (Sulfonamide Antibiotics) Swelling Reaction: Swelling, ??? Latex Other (See comments) Reaction: RASH;, Immunization History Administered Date(s) Administered ??? Influenza, [...] 05/22/2017 ??? Pneumococcal Polysaccharide PPV23 05/28/2014, 05/28/2014 PHQ Screening Over the last 2 weeks, [...] more falls in the last year: No ' Review of Systems Constitutional: Positive for chills, fatigue and fever. Negative for activity change, appetite change and diaphoresis. HENT: Positive for congestion, ear pain, postnasal drip, rhinorrhea, sneezing, sore throat and voice change. Negative for dental problem, drooling, facial swelling, sinus pressure and trouble swallowing. Eyes: Negative for photophobia, pain, discharge, redness, itching and visual disturbance. Respiratory: Positive for cough. Negative for apnea, choking, chest tightness, shortness of breath,wheezing and stridor. Cardiovascular: Negative. Negative for chest pain and leg swelling. Gastrointestinal: Negative. Negative for abdominal distention, abdominal pain, anal bleeding, bloodin stool, constipation, diarrhea, nausea, rectal pain and vomiting. Endocrine: Negative for cold intolerance, heat intolerance, polydipsia, polyphagia and polyuria. Genitourinary: Negative. Negative for difficulty urinating, dyspareunia, dysuria, flank pain, frequency, genital sores, hematuria and urgency. Musculoskeletal: Negative for arthralgias, back pain, gait problem, joint swelling and myalgias. Skin: Negative. Negative for color change, pallor, rash and wound. Allergic/Immunologic: Positive for environmental allergies. Negative for food allergies. Neurological: Negative for dizziness, tremors, seizures, syncope, facial asymmetry, speech difficulty, weakness, light-headedness, numbness and headaches. Hematological: Negative for adenopathy. Bruises/bleeds easily. Psychiatric/Behavioral: Negative. Negative for agitation, behavioral problems, confusion, decreasedconcentration, dysphoric mood, hallucinations, self-injury, sleep disturbance and suicidal ideas. Physical Exam Constitutional: She is oriented to person, place, and time. She appears well- developed and well-nourished. HENT: Head: Normocephalic. Mouth/Throat: No oropharyngeal exudate. Bilateral tm intact with moderate effusion clear Mild erythema no exudate Bilateral nare with saddle nose noted without deviation mass or lesions Oropharynx with erythema and cobblestone appearance no exudate is noted Eyes: Pupils are equal, round, and reactive to light. Conjunctivae and EOM are normal. Neck: Normal range of motion. Neck supple. No JVD present. No tracheal deviation present. No thyromegaly present. Cardiovascular: Normal rate, regular rhythm, normal heart sounds and intact distal pulses. Exam reveals no gallop and no friction rub. No murmur heard. Pulmonary/Chest: No stridor. No respiratory distress. She has wheezes. She has no rales. She exhibits no tenderness. Decreased breath sounds wheezing all areas Abdominal: Soft. Bowel sounds are normal. She exhibits no distension and no mass. There is no tenderness. There is no rebound and no guarding. No hernia. Musculoskeletal: Normal range of motion. She exhibits no edema, tenderness or deformity. Lymphadenopathy: She has cervical adenopathy. Neurological: She is alert and oriented to person, place, and time. Skin: Skin is warm and dry. Capillary refill takes less than 2 seconds. No rash noted. Psychiatric: She has a normal mood and affect. Her behavior is normal. Nursing note and vitals reviewed. BP 118/72 (BP Location: Left arm, Patient Position: Sitting) Pulse 84 Temp 37.2 ??C (98.9 ??F) Resp 18 Ht 152.4 cm (5') Wt 69.4 kg (153 lb) LMP (LMP Unknown) SpO2 96% BMI 29.88 kg/m?? Assessment/Plan Diagnoses and all orders for this visit: Moderate asthma with acute exacerbation, unspecified whether persistent (J45.901) (Primary) Assessment & Plan: Maintain adequate clear fluid intake. May use [id number] acetaminophen or ibuprofen. 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 ([facility]) (M32.19) Assessment & Plan: Reviewed all diagnostics surgery referrals laboratory Answer all questions Fu rheumatology Obstructive sleep apnea syndrome (G47.33) Assessment & Plan: encourage to fu pulmonary for sleep evaluation as scheduled encourage to use cpap as rx education risk benefits side affects of nonadherance Heart failure with preserved ejection fraction, unspecified HF chronicity ([facility]) (I50.30) Assessment & Plan: Daily weights call for greater than 3 pds weight gain one day 2g sodium diet Encourage balance nutrition and exercise Fu cardiology Reviewed all diagnostics surgery referrals laboratory Answer all questions Acute non-recurrent maxillary sinusitis (J01.00) Assessment & Plan: nasal saline every four hours over the counter, prescriptions sent to pharmacy, may use over the counter allergy or sinus medication, Maintain adequate fluid intake. May use [id number] acetaminophen or ibuprofen. Medication instructions were provided to the patient. The risks and benefits of the treatment plan were discussed with the patient. Signs and symptoms of emergency were discussed with the patient. Minimize close contact with other individuals. BMI 29.0-29.9,adult (Z68.29) Assessment & Plan: BMI Follow-up includes: nutrition counseling, exercise counseling and education provided. Other orders - albuterol HFA (PROVENTIL HFA,VENTOLIN HFA,PROAIR HFA) 90 mcg/actuation inhaler; Inhale 90 puffs every 4 (four) hours as needed for wheezing or shortness of breath - amoxicillin-clavulanate (AUGMENTIN) 875-125 mg per tablet; Take 1 tablet by mouth 2 (two) times aday for 10 days - methylPREDNISolone (MEDROL DOSEPACK) 4 mg Dosepack; Take as directed on package. - benzonatate (TESSALON) 200 mg capsule; Take 1 capsule (200 mg total) by mouth 3 (three) times a day as needed for cough documented in this encounter Miscellaneous Notes * Assessment & Plan Note - Tana Haddad NP - 02/25/2019 6:31 AM CDTAssociated Problem(s): Obstructive sleep apnea syndrome encourage to fu pulmonary for sleep evaluation as scheduled encourage to use cpap as rx education risk benefits side affects of nonadherance * Assessment & Plan Note - Tana Haddad NP - 02/25/2019 6:31 AM CDTAssociated Problem(s): Moderate asthma with acute exacerbation Maintain adequate clear fluid intake. May use [id number]-htrdqkw acetaminophen or ibuprofen. Medication instructions were provided [...] Keep immunization up to date See orders * Assessment & Plan Note - Tana Haddad NP - 02/25/2019 6:27 AM CDTAssociated Problem(s): Systemic lupus erythematosus (CMS/HCC) ([facility]) Reviewed all diagnostics surgery referrals laboratory Answer all questions Fu rheumatology * Assessment & Plan Note - Tana Haddad NP - 02/25/2019 6:27 AM CDTAssociated Problem(s): Heart failure with preserved ejection fraction (CMS/HCC) (HCC) Daily weights call for greater than 3 pds weight gain one day 2g sodium diet Encourage balance nutrition and exercise cardiology Reviewed all diagnostics surgery referrals laboratory Answer all questions * Assessment & Plan Note - Tana Haddad NP - 02/25/2019 6:26 AM CDTAssociated Problem(s): BMI 28.0-28.9,adult BMI Follow-up includes: nutrition counseling, exercise counseling and education provided. * Assessment & Plan Note - Tana Haddad NP - 02/25/2019 6:26 AM CDTAssociated Problem(s): Acute non-recurrent maxillary sinusitis (Resolved 06/01/2019) nasal saline every four hours over the counter, prescriptions sent to pharmacy, may use over the counter allergy or sinus medication, Maintain adequate fluid intake. May use gfoh-zda-rilecfi acetaminophen or ibuprofen. Medication instructions were provided to the patient. The risks and benefits of the treatment plan were discussed with the patient. Signs and symptoms of emergency were discussed with the patient. Minimize close contact with other individuals. documented in this encounter Plan of Treatment Not on file documented as of this encounter Visit Diagnoses Diagnosis Moderate asthma with acute exacerbation, unspecified whether persistent- Primary 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 (HCC) Obstructive sleep apnea syndrome Obstructive sleep apnea (adult) (pediatric) Heart failure with preserved ejection fraction, unspecified HF chronicity (HCC) Acute non-recurrent maxillary sinusitis BMI 29.0-29.9,adult documented in this encounter Discontinued Medications Medication Sig Discontinue Reason Start Date End Da te albuterol HFA (PROVENTIL HFA,VENTOLIN HFA,PROAIR HFA) 90 mcg/actuation inhaler Inhale 90 puffs as needed Reorder 02/24/2019 documented as of this encounter Care Teams Head Sampler Relationship Specialty Start Date End Date Santiago Bueno MD [address] [facility] [address] [place] [address] PCP - General 11/30/16 06/09/20 [place] [address] [facility] [address] [place] [address] Rheumatology 07/15/17 documented as of this encounter
--- OUTSIDE RECORDS SUMMARY | 2024-08-29 10:21 | XMS_ITS | Encounter Summary ---
Author Organization [facility] Care Team Providers Care Anesthesiology Fellow Name Role Phone Santiago Bueno MD Primary Care Provider [phone] Gladis Song MD Unavailable Encounter Details Date Type Department Care Team (Latest Contact Info) Description 06/02/2019 Travel Social History Tobacco Use Types Packs/Day Years Used Date Smoking Tobacco: Never Smokeless Tobacco: Never Alcohol Use Standard Drinks/Week Comments Yes 0 (1 standard drink = 0.6 oz pur e alcohol) rare wine PHQ-2 Answer Date Recorded PHQ-2 Score 0 04/24/2019 Comments No Sex and Gender Information Value Date Recorded Sex Assigned at Not on file 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
--- OUTSIDE RECORDS SUMMARY | 2024-08-29 10:21 | XMS_ITS | Encounter Summary ---
Author Organization [facility] Address [address] [place] [address] Care Team Providers Care Stock Supervisor Name Role Phone Santiago Bueno MD Primary Care Provider [phone] Gladis Song MD Unavailable Reason for Referral * Diagnostic Imaging (Routine) - Closed Specialty Diagnoses / Procedures Referred By Valerie florian Referred To Contact Diagnoses Encounter for screening mammogram for malignant neoplasm of breast Procedures Screening Mammogram Bilateral W Santiago Finnegan MD Phone: tel: fax: [place] [phone] [place] [address] Referral ID Status Reason Start Date Expiration Date Visits Re quested Visits Authorized [id number] Closed 03/26/2019 10/04/2020 1 1 Reason for Visit * Diagnostic Imaging (Routine) - Closed Specialty Diagnoses / Procedures Referred By Valerie florian Referred To Contact Diagnoses Encounter for screening mammogram for malignant neoplasm of breast Procedures Screening Mammogram Bilateral W Santiago Finnegan MD Phone: tel: fax: [place] [phone] [place] [address] Referral ID Status Reason Start Date Expiration Date Visits Re quested Visits Authorized [id number] Closed 03/26/2019 10/04/2020 1 1 Encounter Details Date Type Department Care Team (Latest Contact Info) Description 03/31/2019 10:33 AM CDT - 03/31/2019 11:59 PM CDT Hospital Encounter [facility] [address] [facility] [address] [place] [address] Santiago Bueno MD [address] [place] [address] Encounter for screening mammogram for malignant neoplasm of breast Discharge Disposition: Discharge to home or self care Social History Tobacco Use Types Packs/Day Years Used Date Smoking Tobacco: Never Smokeless Tobacco: Never Alcohol Use Standard Drinks/Week Comments Yes 0 (1 standard drink = 0.6 oz pur e alcohol) rare wine Comments No Sex and Gender Information Value Date Recorded Sex Assigned at Not on file 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 Gender Identity Not on file Sexual Orientation Not on file Occupation Industry Job Start Date Job End Date Retired Not on file Not on file Not on file documented as of this encounter Medications at Time of Discharge albuterol HFA (PROVENTIL HFA,VENTOLIN HFA,PROAIR HFA) 90 mcg/actuation inhaler Inhale 90 puffs 03/31/2019 calcium carbonate (OS-LEELA) 1,500 mg (600 mg of elemental calcium) tabletIndications :Post-Menopausal Osteoporosis Prevention Take 2,000 mg of elemental [...] Take one tab daily 90 tablet 05/14/2018 azithromycin (ZITHROMAX) 250 mg tablet Take 2 tabs (500 mg) by mouth today, than 1 tab (250 mg) daily for 4 days. 6 tablet 03/31/2019 9 albuterol HFA (PROVENTIL HFA,VENTOLIN HFA,PROAIR HFA) 90 mcg/actuation inhalerIndication s:Bronchospastic Pulmonary Disease Inhale 90 puffs every 4 (four) hours as needed for wheezing or shortness of breath 1 Inhaler 2 03/31/2019 0 apixaban (ELIQUIS) 5 mg tablet Take 1 tablet (5 mg total) by mouth 2 (two) times a day 60 tablet 6 11/12/2018 9 atorvastatin (LIPITOR) 80 mg tablet Take 1 tablet (80 mg total) by mouth daily. 90 tablet 3 04/04/2018 9 furosemide (LASIX) 20 mg tablet Take 1 tablet (20 mg total) by mouth daily. 30 tablet 11 05/26/2018 9 hydroCHLOROthiazi de (HYDRODIURIL) 25 mg tablet TAKE 1 TABLET EVERY DAY 90 tablet 1 06/11/2018 9 hydroxychloroquin e (PLAQUENIL) 200 mg tablet Take 1 tablet (200 mg total) by mouth 2 (two) times a day. 180 tablet 05/14/2018 4 methotrexate 25 mg/mL syringe Inject 0.6 mL (15 mg total) under the skin once a week. 8 mL 03/19/2018 1 methylPREDNISolon e (MEDROL DOSEPACK) 4 mg Dosepack Take as directed on package. 21 tablet 03/31/2019 0 metoprolol XL (TOPROL-XL) 50 mg 24 hr tablet TAKE 1 TABLET BY MOUTH EVERY DAY 90 tablet 1 12/17/2018 9 montelukast (SINGULAIR) 10 mg tablet Take 1 tablet (10 mg total) by mouth nightly. 90 tablet 1 04/04/2018 9 nitroglycerin (NITROSTAT) 0.4 mg SL tablet May repeat dose every 5 minutes for up to 3 doses total. 25 tablet 3 05/23/[address] (PROTONIX) 40 mg EC tablet Take 1 tablet (40 mg total) by mouth daily 30 tablet 11 11/18/2018 0 PARoxetine (PAXIL) 20 mg tablet TAKE 1 TABLET BY MOUTH EVERY DAY 90 tablet 1 02/08/2019 9 potassium chloride ER (KLOR-CON,K-DUR) 20 mEq CR tablet Take 2 tablets every morning; 2 tablets every evening 360 tablet 3 11/27/2018 0 syringe with needle 1 mL 28 gauge x 1/2 syringe Use to inject 0.6ml of methotrexate once weekly 12 Syringe 3 03/19/2018 0 documented as of this encounter Discharge Disposition Disposition Code Departure Means Destination Discharge to home or self care documented in this encounter Plan of Treatment Not on file documented as of this encounter Procedures Procedure Name Priority Date/Time Associated Diagnosis Comments SCREENING MAMMOGRAM BILATERAL W ELÍAS Schedule Routine, Read Routine (OP Routine) 03/31/2019 10:56 AM CDT Encounter for screening mammogram for malignant neoplasm of breast documented in this encounter Results * Screening Mammogram Bilateral W Elías (03/31/2019 10:56 AM CDT) Anatomical Region Laterality Modality Breast Bilateral Mammography Narrative 03/31/2019 3:57 PM CDT Mammogram Technique: Bilateral Digital Breast Tomosynthesis, Bilateral C-view 2D Screening mammogram. ??Views obtained: ??bilateral craniocaudal and bilateral mediolateral oblique. ??Computer Aided Detection was performed. Mammogram Findings: The present examination has been compared to prior imaging studies performed at [facility] on 09/12/2015, 02/11/2017 and 02/20/2018. There [...] compared to prior imaging studies performed at [facility] on 09/12/2015, 02/11/2017 and 02/20/2018. There are scattered areas of fibroglandular density. There is no suspicious abnormality in either breast. Impression: Annual screening mammography is recommended. OVERALL FINAL ASSESSMENT: BI-RADS CATEGORY 1: Negative. us Santiago Bueno MD IMG MAMMO PROCEDURES Final Res ult documented in this encounter Visit Diagnoses Diagnosis Encounter for screening mammogram for malignant neoplasm of breast documented in this encounter Care Teams Stock Supervisor Relationship Specialty Start Date End Date Santiago Bueno MD [address] [facility] [address] [place] [address] PCP - General 11/30/16 06/09/20 [place] [address] [facility] [address] [place] [address] Rheumatology 07/15/17 documented as of this encounter
--- OUTSIDE RECORDS SUMMARY | 2024-08-29 10:21 | XMS_ITS | Encounter Summary ---
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 Gender Identity Not on file Sexual Orientation Not on file Occupation Industry Job Start Date Job End Date Retired Not on file Not on file Not on file documented as of this encounter Plan of Treatment Not on file documented as of this encounter Procedures Procedure Name Priority Date/Time Associated Diagnosis Comments SCAN - LABS 06/09/2019 documented in this encounter Results * SCAN - LABS (06/09/2019) us Provider Scanning Final Result documented in this encounter Visit Diagnoses Not on filedocumented in this encounter Care Teams Vmware Systems Administrator Relationship Specialty Start Date End Date Santiago Bueno MD [address] [place] [address] PCP - General 11/30/16 06/09/20 [place] [address] [facility] [address] [place] [address] Rheumatology 07/15/17 documented as of this encounter
--- OUTSIDE RECORDS SUMMARY | 2024-08-29 10:21 | XMS_ITS | Encounter Summary ---
Author Organization [facility] Address [address] [place] [address] Phone Care Team Providers Care Wheel Presser Name Role Phone Santiago Bueno MD Primary Care Provider [phone] Gladis Song MD Unavailable Encounter Details Date Type Department Care Team (Late st Contact Info) Description 06/23/2019 Telephone [facility] Cardiology [address] [facility] [address] 8th [place] [address] [place] [address] Judah Duggan MD [address] [place], [place] [id number] Social History Tobacco Use Types Packs/Day Years Used Date Smoking Tobacco: Never Smokeless Tobacco: Never Alcohol Use Standard Drinks/Week Comments Yes 0 (1 standard drink = 0.6 oz pur e alcohol) rare wine PHQ-2 Answer Date Recorded PHQ-2 Score 0 04/24/2019 Comments No Sex and Gender Information Value Date Recorded Sex Assigned at Not on file 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 documented in this encounter Plan of Treatment Not on file documented as of this encounter Visit Diagnoses Not on filedocumented in this encounter Care Teams Wheel Presser Relationship Specialty Start Date End Date Santiago Bueno MD [address] [facility] [address] [place] [address] PCP - General 11/30/16 06/09/20 [place] [address] [facility] [address] [place] [address] Rheumatology 07/15/17 documented as of this encounter
--- OUTSIDE RECORDS SUMMARY | 2024-08-29 10:21 | XMS_ITS | Encounter Summary ---
Author Organization [facility] Address [address] [place] [address] Phone Care Team Providers Care Sales Solutions Representative Name Role Phone Santiago Bueno MD Primary Care Provider [phone] Gladis Song MD Unavailable Encounter Details Date Type Department Care Team (Late st Contact Info) Description 06/09/2019 Telephone [facility] Cardiology [address] [facility] Advanced Medicine 8th [place] [address] [place] [address] Judah Duggan MD [address] [place], [place] [id number] Social History Tobacco Use Types Packs/Day Years Used Date Smoking Tobacco: Never Smokeless Tobacco: Never Alcohol Use Standard Drinks/Week Comments Yes 0 (1 standard drink = 0.6 oz pur e alcohol) rare wine PHQ-2 Answer Date Recorded PHQ-2 Score 0 04/24/2019 Comments No Sex and Gender Information Value Date Recorded Sex Assigned at Not on file 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 Please check bmp in 1month ----- Message ----- From: Dannielle Blackwood RN Sent: 06/09/2019 12:27 PM To: Judah Duggan MD ----- Message ----- From: Sabine Kraft Sent: 06/09/2019 12:04 PM To: Dannielle Blackwood RN documented in this encounter Plan of Treatment Not on file documented as of this encounter Visit Diagnoses Not on filedocumented in this encounter Care Teams Sales Solutions Representative Relationship Specialty Start Date End Date Santiago Bueno MD [address] [facility] [address] [place] [address] PCP - General 11/30/16 06/09/20 [place] [address] [facility] [address] [place] [address] Rheumatology 07/15/17 documented as of this encounter
--- OUTSIDE RECORDS SUMMARY | 2024-08-29 10:21 | XMS_ITS | Encounter Summary ---
Author Organization [facility] Address [address] [place] [address] Phone Care Team Providers Care Student Services Coordinator Name Role Phone Santiago Bueno MD Primary Care Provider [phone] Gladis Song MD Unavailable Encounter Details Date Type Department Care Team (Latest Contact Info) Description 12/04/2018 Orders Only [facility] Scanning, Provider Social History Tobacco Use Types Packs/Day Years Used Date Smoking Tobacco: Never Smokeless Tobacco: Never Alcohol Use Standard Drinks/Week Comments Yes 0 (1 standard drink = 0.6 oz pur e alcohol) rare wine Comments No Sex and Gender Information Value Date Recorded Sex Assigned at Not on file 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 Gender Identity Not on file Sexual Orientation Not on file Occupation Industry Job Start Date Job End Date Retired Not on file Not on file Not on file documented as of this encounter Plan of Treatment Not on file documented as of this encounter Procedures Procedure Name Priority Date/Time Associated Diagnosis Comments SCAN - LABS 12/04/2018 documented in this encounter Results * SCAN - LABS (12/04/2018) us Provider Scanning Final Result documented in this encounter Visit Diagnoses Not on filedocumented in this encounter Care Teams Student Services Coordinator Relationship Specialty Start Date End Date Santiago Bueno MD [address] [place] [address] PCP - General 11/30/16 06/09/20 [place] [address] [facility] [address] [place] [address] Rheumatology 07/15/17 documented as of this encounter
--- OUTSIDE RECORDS SUMMARY | 2024-08-29 10:22 | XMS_ITS | Encounter Summary ---
Author Organization [facility] Address [address] [facility] [address] [place] [address] Care Team Providers Care Real Estate Salesperson Name Role Phone Santiago Bueno MD Primary Care Provider [phone] Gladis Song MD Unavailable Reason for Visit * Reason Onset Date Comments dr bueno test results 08/11/2018 Encounter Details Date Type Department Care Team (Late st Contact Info) Description 08/11/2018 Telephone [facility] [address] [facility] [address] [place] [address] Santiago Bueno MD [address] [facility] [address] [place] [address] dr bueno test results Social History Tobacco Use Types Packs/Day Years Used Date Smoking Tobacco: Never Smokeless Tobacco: Never Alcohol Use Standard Drinks/Week Comments Yes 0 (1 standard drink = 0.6 oz pur e alcohol) rare wine Comments No Sex and Gender Information Value Date Recorded Sex Assigned at Not on file 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 ??She has mild valve leakage which she does not need to worry about at this time. ??I will repeat an echo when indicated AND BREAKFAST COOK * Telephone Encounter - Yolie Liu - 08/11/2018 10:46 AM CST Test Result- Not Present: Type of test: Nuclear Med test Date of test: 07/18/18 Where test was performed: [facility] Caller's Callback #: [phone] Additional Questions/Comments: Patient asking for results of Nuclear Med test that she had done on 07/18/18 at [facility]. Please call patient with results. AND BREAKFAST COOK documented in this encounter Plan of Treatment Not on file documented as of this encounter Visit Diagnoses Not on filedocumented in this encounter Care Teams Real Estate Salesperson Relationship Specialty Start Date End Date Santiago Bueno MD [address] [facility] [address] [place] [address] PCP - General 11/30/16 06/09/20 [place] [address] [place] [address] Rheumatology 07/15/17 documented as of this encounter
--- OUTSIDE RECORDS SUMMARY | 2024-08-29 10:22 | XMS_ITS | Encounter Summary ---
Author Organization [facility] Address [address] [facility] [address] [place] [address] Phone Care Team Providers Care Automatic Die Cutting Machine Operator Name Role Phone Santiago Bueno MD Primary Care Provider [phone] Gladis Song MD Unavailable Encounter Details Date Type Department Care Team (Late st Contact Info) Description 11/24/2018 Telephone [facility] Cardiology [address] [facility] Advanced Medicine 8th [place] [address] [place] [address] Judah Duggan MD [address] [place], [place] [id number] Social History Tobacco Use Types Packs/Day Years Used Date Smoking Tobacco: Never Smokeless Tobacco: Never Alcohol Use Standard Drinks/Week Comments Yes 0 (1 standard drink = 0.6 oz pur e alcohol) rare wine Comments No Sex and Gender Information Value Date Recorded Sex Assigned at Not on file 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 Order left at the CAM front end driver * Telephone Encounter - Paulina Nj - 11/24/2018 10:00 AM CDT Urban Patient calling back to inform that her will be having an appointment today and she is curious if her can hand picker orders today instead of having it mailed? documented in this encounter Plan of Treatment Not on file documented as of this encounter Visit Diagnoses Not on filedocumented in this encounter Care Teams Automatic Die Cutting Machine Operator Relationship Specialty Start Date End Date Santiago Bueno MD [address] [facility] [address] [place] [address] PCP - General 11/30/16 06/09/20 [place] [address] [facility] [address] [place] [address] Rheumatology 07/15/17 documented as of this encounter
--- OUTSIDE RECORDS SUMMARY | 2024-08-29 10:22 | XMS_ITS | Encounter Summary ---
Author Organization [facility] Address [address] [place] [address] Phone Care Team Providers Care Refrigeration Repair Supervisor Name Role Phone Santiago Bueno MD Primary Care Provider [phone] Gladis Song MD Unavailable Encounter Details Date Type Department Care Team (Late st Contact Info) Description 08/11/2018 Orders Only [facility] Cardiology [address] [facility] Advanced Medicine 8th [place] [address] [place] [address] Judah Duggan MD [address] [place] [address] Hypertension, unspecified type (Primary Dx) Social History Tobacco Use Types Packs/Day Years Used Date Smoking Tobacco: Never Smokeless Tobacco: Never Alcohol Use Standard Drinks/Week Comments Yes 0 (1 standard drink = 0.6 oz pur e alcohol) rare wine Comments No Sex and Gender Information Value Date Recorded Sex Assigned at Not on file 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 Gender Identity Not on file Sexual Orientation Not on file Occupation Industry Job Start Date Job End Date Retired Not on file Not on file Not on file documented as of this encounter Plan of Treatment Scheduled Orders Name Type Priority Associated Diagnoses Orde r Schedule Basic metabolic panel Lab Routine Hypertension, unspecified type Expected: 08/11/2018, Expires: 08/11/2019 documented as of this encounter Visit Diagnoses Diagnosis Hypertension, unspecified type- Primary documented in this encounter Care Teams Refrigeration Repair Supervisor Relationship Specialty Start Date End Date Santiago Bueno MD [address] [place] [address] PCP - General 11/30/16 06/09/20 [place] [address] [facility] [address] [place] [address] Rheumatology 07/15/17 documented as of this encounter
--- OUTSIDE RECORDS SUMMARY | 2024-08-29 10:22 | XMS_ITS | Encounter Summary ---
Author Organization [facility] Address [address] [address] Care Team Providers Care Supervising Producer Name Role Phone Santiago Bueno MD Primary Care Provider [phone] Gladis Song MD Unavailable Reason for Referral * Diagnostic Imaging (Routine) - Closed Specialty Diagnoses / Procedures Referred By Contac t Referred To Contact Diagnoses Epigastric abdominal pain Procedures NM Hepatobiliary Imaging W GBEF Santiago Bueno MD Phone: tel: fax: [address] [address] Referral ID Status Reason Start Date Expiration Date Visits Re quested Visits Authorized [id number] Closed 07/11/2018 01/20/2020 2 2 HER HAND * Diagnostic Imaging (Routine) - Closed Specialty Diagnoses / Procedures Referred By Contac t Referred To Contact Radiology Diagnoses Epigastric abdominal pain Procedures US RUQ Santiago Bueno MD Phone: tel: fax: [facility] [address] Referral ID Status Reason Start Date Expiration Date V isits Requested Visits Authorized [id number] Closed Specialty Services Required 07/03/2018 01/12/2020 1 1 Reason for Visit * Reason Comments LAISHA With Active Episode Encounter Details Date Type Department Care Team (Late st Contact Info) Description 07/03/2018 11:30 AM CDT Office Visit [facility] [address] [facility] [address] [place] [phone] Santiago Bueno MD [address] [facility] [address] [place] [address] Epigastric abdominal pain (Primary Dx); BMI 31.0-31.9,adult; Gastroesophageal reflux disease without esophagitis; Paroxysmal atrial fibrillation (CMS/HCC) Social History Tobacco Use Types Packs/Day Years Used Date Smoking Tobacco: Never Smokeless Tobacco: Never Alcohol Use Standard Drinks/Week Comments Yes 0 (1 standard drink = 0.6 oz pur e alcohol) rare wine Comments No Sex and Gender Information Value Date Recorded Sex Assigned at Not on file 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 Gender Identity Not on file Sexual Orientation Not on file Occupation Industry Job Start Date Job End Date Retired Not on file Not on file Not on file documented as of this encounter Last Filed Vital Signs Vital Sign Reading Time Taken Comments Blood Pressure 114/64 07/03/2018 11:29 AM CDT Pulse 80 07/03/2018 11:29 AM CDT Temperature - - Respiratory Rate - - Oxygen Saturation 96% 07/03/2018 11: 29 AM CDT Inhaled Oxygen Concentration - - Weight 72.9 kg (160 lb 12.8 oz) 018 11:29 AM CDT Height 152.4 cm (5') 07/03/2018 11:29 AM CDT Body Mass Index 31.4 07/03/2018 11:29 AM CDT documented in this encounter Progress Notes * Santiago Bueno MD - 07/03/2018 11:30 AM CDT Subjective/Objective Patient ID: Chio Orantes is a 67 y.o. female. Chief Complaint LAISHA With Active Episode Having repeated epigastric / chest discomfort. Had cath and echo with Dr. Duggan -- negative. Had eval with Dr. Siddiqi for hematuria -- negative. Has noticed that the episodes sometimes happen (or worse episodes happen) after eating a fatty food. Plan: get RUQ u/s Review of Systems Constitutional: Negative for chills, fatigue and fever. HENT: Negative for ear pain and sore throat. Eyes: Negative for pain and redness. Respiratory: Negative for cough and shortness of breath. Cardiovascular: Negative for chest pain, palpitations and leg swelling. Gastrointestinal: Positive for abdominal pain. Negative for constipation, diarrhea and nausea. Endocrine: Negative for cold intolerance, heat intolerance, polydipsia and polyphagia. Genitourinary: Negative for dysuria, hematuria and urgency. Musculoskeletal: Negative for arthralgias and myalgias. Skin: Negative for pallor and rash. Neurological: Negative for speech difficulty and headaches. Hematological: Negative for adenopathy. Does not bruise/bleed easily. Psychiatric/Behavioral: Negative for confusion and self-injury. Physical Exam Constitutional: She is oriented to person, place, and time. She appears well- nourished. No distress. HENT: Head: Normocephalic. Mouth/Throat: Oropharynx is clear and moist. No oropharyngeal exudate. Eyes: Conjunctivae are normal. No scleral icterus. Neck: Neck supple. No JVD present. No thyromegaly present. Cardiovascular: Normal rate and regular rhythm. Exam reveals no friction rub. Pulmonary/Chest: Effort normal and breath sounds normal. Abdominal: Soft. Bowel sounds are normal. There is no tenderness. Musculoskeletal: She exhibits no edema. Lymphadenopathy: She has no cervical adenopathy. Neurological: She is alert and oriented to person, place, and time. Skin: Skin is warm and dry. Psychiatric: She has a normal mood and affect. Her behavior is normal. Vitals reviewed. Assessment/Plan Diagnoses and all orders for this visit: Epigastric abdominal pain (R10.13) (Primary) Assessment & Plan: Seems biliary by history. Will check RUQ US. If still negative, will get HIDA with CCK. Orders: - US RUQ; Future BMI 31.0-31.9,adult (Z68.31) Assessment & Plan: BMI Follow-up includes: nutrition counseling, exercise counseling and education provided. Gastroesophageal reflux disease without esophagitis (K21.9) Assessment & Plan: Has Hx reflux but on treatment and her symptoms don't seem consistent with this. Continue current medication for now. Paroxysmal atrial fibrillation (CMS/HCC) (I48.0) Assessment & Plan: Although this is not well documented, she does carry this diagnosis in her chart. 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 We will continue Eliquis. She has had no more strokes or taste and she has been on Eliquis. Other orders - Flu Vaccine High Dose Tri PF 65y+ IM - Fluzone HER HAND documented in this encounter Miscellaneous Notes * Assessment & Plan Note - Santiago Bueno MD - 07/11/2018 5:29 PM BUNCHER HAND Associated Problem(s): Paroxysmal atrial fibrillation (CMS/HCC) (HCC) Although this is not well documented, she does carry this diagnosis in her chart. 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 We will continue Eliquis. She has had no more strokes or taste and she has been on Eliquis. HER HAND * Assessment & Plan Note - Santiago Bueno MD - 07/11/2018 5:28 PM BUNCHER HAND Associated Problem(s): Epigastric abdominal pain Seems biliary by history. Will check RUQ US. If still negative, will get HIDA with CCK. HER HAND * Assessment & Plan Note - Santiago Bueno MD - 07/11/2018 5:27 PM BUNCHER HAND Associated Problem(s): Gastroesophageal reflux disease Has Hx reflux but on treatment and her symptoms don't seem consistent with this. Continue current medication for now. HER HAND * Assessment & Plan Note - Elidia Griffiths MA - 07/03/2018 11:33 AM CDT Associated Problem(s): BMI 28.0-28.9,adult BMI Follow-up includes: nutrition counseling, exercise counseling and education provided. documented in this encounter Plan of Treatment Not on file documented as of this encounter Results * NM Hepatobiliary Imaging W GBEF (07/18/2018 3:36 PM BUNCHER HAND) Anatomical Region Laterality Modality Body N/A Nuclear Medicine 07/18/2018 4:01 PM BUNCHER HAND Impressions 07/18/2018 4:36 PM BUNCHER HAND 1. ??Normal contractile response of gallbladder ??to sincalide infusion. 2. ??Normal biliary imaging study. Dictated by: Israel Jimenez M.D. Electronically signed by: Zac Fitzpatrick M.D. Narrative 07/18/2018 4:36 PM BUNCHER HAND EXAMINATION: ??HEPATOBILIARY SCINTIGRAPHY (WITH GALLBLADDER EJECTION FRACTION) DATE OF STUDY: 07/18/2018 RADIOPHARMACEUTICAL: 3.2 mCi Tc-99m mebrofenin ??i.v. and 1.4 mcg sincalide i.v. HISTORY: Postprandial epigastric pain after eating fatty foods. ??The most recently obtained serum total bilirubin was 0.4 mg/dL on 05/23/2018. FINDINGS: ??Following intravenous administration of tracer, sequential abdominal images were obtained. There is prompt, uniform accumulation of the tracer by the liver. There is normal filling of the intrahepatic ducts, common bile duct and gallbladder and normal excretion of the tracer into the duodenum. In order to evaluate the contractile response of the gallbladder in response to cholecystokinin, sincalide (0.02 mcg /kg) was administered by slow intravenous infusion over 30 minutes, starting approximately 60 minutes after the administration of the radiopharmaceutical. ??Sequential imaging was continued for 30 minutes after the start of the sincalide infusion. ??These images demonstrate good contraction of the gallbladder. ??The calculated gallbladder ejection fraction is 87% (normal greater than 35%). The patient reported no symptoms during Sincalide administration. Procedure Note Zac Fitzpatrick MD - 07/18/2018 EXAMINATION: HEPATOBILIARY SCINTIGRAPHY (WITH GALLBLADDER EJECTION FRACTION) DATE OF STUDY: 07/18/2018 RADIOPHARMACEUTICAL: 3.2 mCi Tc-99m mebrofenin i.v. and 1.4 mcg sincalide i.v. HISTORY: Postprandial epigastric pain after eating fatty foods. The most recently obtained serum total bilirubin was 0.4 mg/dL on 05/23/2018. FINDINGS: Following intravenous administration of tracer, sequential abdominal images were obtained. There is prompt, uniform accumulation of the tracer by the liver. There is normal filling of the intrahepatic ducts, common bile duct and gallbladder and normal excretion of the tracer into the duodenum. In order to evaluate the contractile response of the gallbladder in response to cholecystokinin, sincalide (0.02 mcg /kg) was administered by slow intravenous infusion over 30 minutes, starting approximately 60 minutes after the administration of the radiopharmaceutical. Sequential imaging was continued for 30 minutes after the start of the sincalide infusion. These images demonstrate good contraction of the gallbladder. The calculated gallbladder ejection fraction is 87% (normal greater than 35%). The patient reported no symptoms during Sincalide administration. IMPRESSION: 1. Normal contractile response of gallbladder to sincalide infusion. 2. Normal biliary imaging study. Dictated by: Israel Jimenez M.D. Electronically signed by: Zac Fitzpatrick M.D. us Santiago Bueno MD IMG NM PROCEDURES Final Result * US RUQ (07/11/2018 1:24 PM BUNCHER HAND) Anatomical Region Laterality Modality Abdomen N/A Ultrasound 07/11/2018 2:55 PM BUNCHER HAND Impressions 07/11/2018 2:58 PM BUNCHER HAND 1. Normal right upper quadrant sonogram. Dictated by: Callum Garza M.D. Electronically signed by: Sukhdev Finch M.D. Narrative 07/11/2018 2:58 PM BUNCHER HAND EXAMINATION: ??LIMITED ABDOMINAL SONOGRAM HISTORY: ??Epigastric abdominal pain COMPARISON: ??None FINDINGS: ?? Liver: The liver is normal in size. ??The echotexture is normal. ??The echogenicity is normal. There is no surface nodularity. No focal solid lesions are visualized. ?? Gallbladder: The gallbladder is normal in size. There are no stones or sludge within the gallbladder. There is no gallbladder wall thickening. Bile Duct: There is no intrahepatic bile duct dilatation. The common duct measures 5, 4, 3 mm in the proximal, mid and distal segments respectively. ?? Right Kidney: There is no hydronephrosis in the visualized portions of the right kidney. Pancreas: The visualized portions of the head and body of the pancreas are normal. Inferior vena cava: The proximal IVC is normal. Other Findings: There is no ascites. Procedure Note Sukhdev Finch MD - 07/11/2018 EXAMINATION: LIMITED ABDOMINAL SONOGRAM HISTORY: Epigastric abdominal pain COMPARISON: None FINDINGS: Liver: The liver is normal in size. The echotexture is normal. The echogenicity is normal. There is no surface nodularity. No focal solid lesions are visualized. Gallbladder: The gallbladder is normal in size. There are no stones or sludge within the gallbladder. There is no gallbladder wall thickening. Bile Duct: There is no intrahepatic bile duct dilatation. The common duct measures 5, 4, 3 mm in the proximal, mid and distal segments respectively. Right Kidney: There is no hydronephrosis in the visualized portions of the right kidney. Pancreas: The visualized portions of the head and body of the pancreas are normal. Inferior vena cava: The proximal IVC is normal. Other Findings: There is no ascites. IMPRESSION: 1. Normal right upper quadrant sonogram. Dictated by: Callum Garza M.D. Electronically signed by: Sukhdev Finch M.D. Santiago Bueno MD IM US PROCEDURES Final Result documented in this encounter Visit Diagnoses Diagnosis Epigastric abdominal pain- Primary Abdominal pain, epigastric BMI 31.0-31.9,adult Gastroesophageal reflux disease without esophagitis Esophageal reflux Paroxysmal atrial fibrillation (CMS/HCC) (HCC) Atrial fibrillation Epigastric abdominal pain Abdominal pain, epigastric Epigastric abdominal pain Abdominal pain, epigastric documented in this encounter Discontinued Medications Medication Sig Discontinue Reason Start Date End Da te azithromycin (ZITHROMAX) 250 mg tablet Take 2 tablets the first day, then 1 tablet daily for 4 days. 05/27/2018 07/03/2018 documented as of this encounter Orders Immunization/Injection Count Last Ordered Date First Ordered Date FLU VACCINE HD TRI PF 65Y+ IM 1 07/03/2018 documented in this encounter Care Teams Supervising Producer Relationship Specialty Start Date End Date Santiago Bueno MD [address] [place] [address] PCP - General 11/30/16 06/09/20 [place] [address] [facility] [address] [place] [address] Rheumatology 07/15/17 documented as of this encounter
--- OUTSIDE RECORDS SUMMARY | 2024-08-29 10:22 | XMS_ITS | Encounter Summary ---
Author Organization [facility] Address [address] [place] [address] Phone Care Team Providers Care Fill Manager Name Role Phone Santiago Bueno MD Primary Care Provider [phone] Gladis Song MD Unavailable Encounter Details Date Type Department Care Team (Late st Contact Info) Description 07/22/2018 Telephone [facility] Cardiology [address] [facility] [address] Medicine 8th [place] [address] [place] [address] Judah Duggan MD [address] [place], [place] [id number] Social History Tobacco Use Types Packs/Day Years Used Date Smoking Tobacco: Never Smokeless Tobacco: Never Alcohol Use Standard Drinks/Week Comments Yes 0 (1 standard drink = 0.6 oz pur e alcohol) rare wine Comments No Sex and Gender Information Value Date Recorded Sex Assigned at Not on file 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 She is not due for labs until August; verbalizes understanding. ANISM ASSEMBLER * Telephone Encounter - Jayla De Los Santos - 07/22/2018 11:16 AM CST [place] Pt would like orders for blood work sent to [facility]. Pt does not have a phone or fax number for the hospital. Please call pt if questions. ANISM ASSEMBLER documented in this encounter Plan of Treatment Not on file documented as of this encounter Visit Diagnoses Not on filedocumented in this encounter Care Teams Fill Manager Relationship Specialty Start Date End Date Santiago Bueno MD [address] [facility] [address] [place] [address] PCP - General 11/30/16 06/09/20 [place] [address] [facility] [address] [place] [address] Rheumatology 07/15/17 documented as of this encounter
--- OUTSIDE RECORDS SUMMARY | 2024-08-29 10:22 | XMS_ITS | Encounter Summary ---
Author Organization [facility] Address [address] [place] [address] Phone Care Team Providers Care Brainer Name Role Phone Santiago Bueno MD Primary Care Provider [phone] Gladis Song MD Unavailable Reason for Visit * Reason Onset Date Comments CALL BACK 06/19/2018 Encounter Details Date Type Department Care Team (Late st Contact Info) Description 06/19/2018 Telephone [facility] Cardiology [address] [facility] Advanced Medicine 8th [place] [address] [place] [address] Judah Duggan MD [address] [place] [address] CALL BACK Social History Tobacco Use Types Packs/Day Years Used Date Smoking Tobacco: Never Smokeless Tobacco: Never Alcohol Use Standard Drinks/Week Comments Yes 0 (1 standard drink = 0.6 oz pur e alcohol) rare wine Comments No Sex and Gender Information Value Date Recorded Sex Assigned at Not on file 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 Please have her go to ER for ECG and lab work.Her heart rate is elevated. She may be in afib. * Telephone Encounter - Dannielle Blackwood RN - 06/19/2018 2:33 PM CDT Pt states she hasn't been feeling well for about a week. She felt faint today, got very pale while at a meeting. C/o palpitations with episode this morning. B/p now 109/87 HR 111. 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 Please start 5 mg of amlodipine a day.Is she having other issues? Please have him continue to monitor blood pressure and call us with readings next week. Please ask if the blood pressure cuff has been checked at a doctor's office if is accurate * Telephone Encounter - Dannielle Blackwood RN - 06/19/2018 12:42 PM CDT Please advise * Telephone Encounter - Dick Patricio - 06/19/2018 12:12 PM CDT RAPHAEL PT REQ CALL BACK REGARDING PT BP THAT WAS TAKEN TODAY 185/100 P96 10AM 150/103 P 102 12:10PM 144/95 P88 12:15PM documented in this encounter Plan of Treatment Not on file documented as of this encounter Visit Diagnoses Not on filedocumented in this encounter Care Teams Brainer Relationship Specialty Start Date End Date Santiago Bueno MD [address] [place] [address] PCP - General 11/30/16 06/09/20 [place] [address] [facility] [address] [place] [address] Rheumatology 07/15/17 documented as of this encounter
--- OUTSIDE RECORDS SUMMARY | 2024-08-29 10:22 | XMS_ITS | Encounter Summary ---
Author Organization [facility] Address [address] [place] [address] Phone Care Team Providers Care Manager Cleaning Name Role Phone Santiago Bueno MD Primary Care Provider [phone] Gladis Song MD Unavailable Reason for Visit * Cardiology (Routine) - Closed Specialty Diagnoses / Procedures Referred By Contac t Referred To Contact Cardiology Diagnoses Atherosclerotic heart disease of [place] coronary artery without angina pectoris Procedures RETURN Santiago Bueno MD Phone: tel: fax: Judah Duggan MD [address] [place] [address] Phone: tel: fax: Referral ID Status Reason Start Date Expiration Date Visits Re quested Visits Authorized [id number] Closed 05/23/2018 12/02/2019 3 3 Encounter Details Date Type Department Care Team (Late st Contact Info) Description 11/21/2018 10:00 AM CDT Office Visit [facility] Cardiology [address] 8th [place] [address] [place] [id number] Judah Duggan MD [address] [place] [address] Patent foramen ovale (Primary Dx); Paroxysmal atrial fibrillation (CMS/HCC); Essential hypertension; Other hyperlipidemia; Coronary artery disease involving [place] heart without angina pectoris, unspecified vessel or lesion type; Heart failure with preserved ejection fraction (CMS/HCC) Social History Tobacco Use Types Packs/Day Years Used Date Smoking Tobacco: Never Smokeless Tobacco: Never Alcohol Use Standard Drinks/Week Comments Yes 0 (1 standard drink = 0.6 oz pur e alcohol) rare wine Comments No Sex and Gender Information Value Date Recorded Sex Assigned at Not on file Legal Sex Female 12:11 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 Gender Identity Not on file Sexual Orientation Not on file Occupation Industry Job Start Date Job End Date Retired Not on file Not on file Not on file documented as of this encounter Last Filed Vital Signs Vital Sign Reading Time Taken Comments Blood Pressure 99/64 11/21/2018 10:00 AM CDT Pulse 73 11/21/2018 10:00 AM CDT Temperature 36.9 ??C (98.4 ??F) 11/21/2018 1 0:00 AM CDT Respiratory Rate - - Oxygen Saturation 96% 11/21/2018 10: 00 AM CDT Inhaled Oxygen Concentration - - Weight 72.9 kg (160 lb 12.8 oz) 019 10:00 AM CDT Height 152.4 cm (5') 11/21/2018 10:00 AM CDT Body Mass Index 31.4 11/21/2018 10:00 AM CDT documented in this encounter Progress Notes * Castillo Hannon MD - 11/21/2018 10:00 AM CDT Cardiology Outpatient Progress Note Patient Name: Chio Orantes : 1950 Date of Service: 11/21/2018 PCP: Dr. Myles MD Referring: Dr. Bueno PRINCIPAL AND SECONDARY DIAGNOSES: Patient Active Problem List Diagnosis Date Noted [...] hyperlipidemia 05/21/2018 Priority: High ??? History of ischemic stroke without residual deficits 05/21/2018 Priority: High Acute ischemic stroke in March 2016 and multiple prior TIAs.Also with history of subcortical strokes ??? CAD (coronary artery disease) 11/21/2018 Mild coronary artery disease 20-30% narrowing in the circumflex and right coronar artery from 05/2018. ??? Heart failure with preserved ejection fraction ([facility]) 11/21/2018 LVEDP was 22 from cardiac catheterization in May of 2018 ??? Epigastric abdominal pain 07/03/2018 ??? Benign paroxysmal positional vertigo of left ear 05/13/2018 ??? Cough 05/13/2018 ??? Asymptomatic microscopic hematuria 01/15/2018 ??? Obesity with body mass index 30 or greater 05/06/2017 Class: Chronic ??? BMI 31.0-31.9,adult 04/29/2017 ??? Therapeutic drug monitoring 04/24/2017 ??? Obstructive sleep apnea syndrome 08/01/2016 Class: Chronic ??? Bronchial asthma 07/17/2016 Class: Chronic ??? Osteoarthritis 07/17/2016 Class: Chronic ??? Restless legs 07/17/2016 Class: Chronic ??? Patent foramen ovale 04/13/2016 Class: Chronic Patent foramen ovale. RoPE score of 2 with low likelihood of contribution to TIAs. Therefore, PFO closure has not been recommended ??? Asthma 07/12/2015 Class: Chronic Asthma ??? Late, effect, cerebrovascular disease 06/03/2015 Class: Chronic ??? Borderline diabetes mellitus 06/03/2015 Class: Chronic ??? Hypertension 05/04/2014 Class: Temporary Hypertension ??? Systemic lupus erythematosus ([facility]) 01/16/2014 Class: Chronic SLE ??? Gastroesophageal reflux disease 01/16/2014 Class: Chronic ESOPHAGEAL REFLUX ??? Osteopenia 01/16/2014 Class: Chronic osteopenia ??? Anxiety state 01/16/2014 Class: Chronic ANXIETY STATE NOS ??? Tremor 01/29/2013 Class: Chronic Tremor INTERVAL HISTORY: It was a pleasure to see Ms. Orantes at the [facility] in follow-up for the above-mentioned cardiovascular issues. Since her last office visit, she has overall been doing well from a cardiovascular perspective. She was last seen on 05/23/2018 at which time she was having unstable angina and we obtained a coronary angiogram and a transthoracic echocardiogram. The [facility] revealed mild CAD with markedly elevated LVEDP and her TTE revealed preserved ejection fraction. Since her diagnostic studies, she was initiated on Lasix and has been doing fairly well. She stopped taking her pantoprazole after meals and is not taking them 30 minutes prior to her meals and has had significant symptom relief. She continues to do activities that she enjoys such as crocheting without any limitations. She is able to complete household tasks and is fairly independent. In regards to her review of systems, she denies any chest pain, dyspnea, dyspnea on exertion, palpitations, pre-syncope, syncope, PND, orthopnea, or peripheral edema and participates in all ADLs and IADLs as desired without significant limitations. MEDICATIONS: Current Outpatient Medications: ??? apixaban (ELIQUIS) 5 mg tablet ??? atorvastatin (LIPITOR) 80 mg tablet ??? cholecalciferol (VITAMIN D3) 2,000 unit tablet ??? FLOVENT HFA 110 mcg/actuation inhaler ??? folic acid (FOLVITE) 1 mg tablet ??? furosemide (LASIX) 20 mg tablet ??? hydroCHLOROthiazide (HYDRODIURIL) 25 mg tablet ??? hydroxychloroquine (PLAQUENIL) 200 mg tablet ??? methotrexate 25 mg/mL syringe ??? metoprolol XL (TOPROL XL) 50 mg 24 hr tablet ??? montelukast (SINGULAIR) 10 mg tablet ??? nitroglycerin (NITROSTAT) 0.4 mg SL tablet ??? pantoprazole DR (PROTONIX) 40 mg EC tablet ??? PARoxetine (PAXIL) 20 mg tablet ??? potassium chloride ER (KLOR-CON,K-DUR) 20 mEq CR tablet ??? syringe with needle 1 mL 28 gauge x 1/2 syringe ??? VENTOLIN HFA 90 mcg/actuation inhaler PHYSICAL EXAMINATION: BP 99/64 Pulse 73 Temp 36.9 ??C (98.4 ??F) Ht 152.4 cm (5') Wt 72.9 kg (160 lb 12.8 oz) LMP (LMP Unknown) SpO2 96% BMI 31.40 kg/m?? GENERAL: Well-appearing patient in NAD, AAOx3 LUNGS: CTAb, no w/r/r CARDIOVASCULAR: RRR, nl S1, S2, no m/r/g. JVD is not elevated ABDOMEN: Soft, NT/ND, no rebound or guarding EXTREMITIES: Warm, well perfused, no edema DIAGNOSTIC DATA: Lab Results Component Value Date SODIUM 142 05/13/2018 POTASSIUM 4.0 05/13/2018 CHLORIDE 99 05/13/2018 CO2 29 05/23/2018 BUNSER 18 05/13/2018 CREATININE 0.76 05/23/2018 GFRNAA >60 05/13/2018 GLUCOSE 88 05/23/2018 ALBUMIN 4.3 05/13/2018 ALKPHOS 85 05/13/2018 BILITOT 0.4 05/13/2018 ALT 33 05/13/2018 AST 34 05/13/2018 TSH 2.27 05/13/2018 CHOL 131 05/13/2018 TRIG 58 05/13/2018 HDL 55 05/13/2018 LDL 123 04/24/2015 LDLCALC 64 05/13/2018 [facility] (05/2018): Diagnostic Impression Relatively mild coronary artery disease 20-30% narrowing in the circumflex and right coronary artery with markedly elevated LVEDP TTE (06/2018): Normal LV size, wall thickness, and systolic function, LVEF 61%. Normal RV size and systolic function. Impaired LV relaxation. Mild AI, MR, and TR. Est PASP 30 mmHg. Normal IVC. Normal atria. Aortic root 3.4 cm. ASSESSMENT AND PLAN: This is a 68 y.o. female who presents to Cardiology clinic in follow-up for the following issues: CAD (coronary artery disease) She has non-obstructive coronary artery disease. We will continue optimal secondary risk factor strategies. She should continue Eliquis 5 mg BID. We will optimize her lipid and blood pressure management at this time. Hypertension Her BP is currently very well controlled. We will continue HCTZ 25 mg daily, Lasix 20 mg daily, Metoprolol XL 50 mg daily at this time. We will have her continue to monitor her sodium intake and maintain an active lifestyle. Paroxysmal atrial fibrillation (CMS/HCC) This has not been well documented in the past. At this time, she remains in NSR. We will continue CVA prophylaxis with Apixaban 5 mg BID Heart failure with preserved ejection fraction (CMS/HCC) She is currently euvolemic at this time. We will continue Lasix 20 mg daily with potassium supplementation. Will obtain labs that were drawn in the last few months by an outside provider to ensure that her renal function electrolytes are stable. Other hyperlipidemia Her lipids are currently very well controlled. We will continue atorvastatin 80 mg daily. We will plan on obtaining a lipid panel at her next visit. Patent foramen ovale She has a ROPE score of 2 with a low likelihood of it contributing to TIAs. We will forego PFO closure at this time. Will continue to monitor her for symptoms. We have asked the patient to follow up with us in 12 months but call us in the interm if there are any changes in clinical status or if there are any additional cardiac related questions. We appreciate the opportunity to participate in the continued care of this pleasant patient. If we can be of additional assistance, please do not hesitate to contact us directly. Respectfully, Castillo Hannon MD Color Paste Mixing Supervisor 10:14 AM Cosigned by Judah Duggan MD at 11/21/2018 10:17 AM CDT Associated attestation - Judah Duggan MD - 11/21/2018 10:17 AM CDT I have seen and examined the patient. I agree with the findings and plan of care as documented in the resident's note.. documented in this encounter Miscellaneous Notes * Assessment & Plan Note - Castillo Hannon MD - 11/21/2018 10:13 AM CDTAssociated Problem(s): Patent foramen ovale She has a ROPE score of 2 with a low likelihood of it contributing to TIAs. We will forego PFO closure at this time. Will continue to monitor her for symptoms. * Assessment & Plan Note - Castillo Hannon MD - 11/21/2018 10:13 AM CDTAssociated Problem(s): Other hyperlipidemia Her lipids are currently very well controlled. We will continue atorvastatin 80 mg daily. We will plan on obtaining a lipid panel at her next visit. * Assessment & Plan Note - Castillo Hannon MD - 11/21/2018 10:12 AM CDTAssociated Problem(s): Heart failure with preserved ejection fraction (CMS/HCC) (HCC) She is currently euvolemic at this time. We will continue Lasix 20 mg daily with potassium supplementation. Will obtain labs that were drawn in the last few months by an outside provider to ensure that her renal function electrolytes are stable. * Assessment & Plan Note - Castillo Hannon MD - 11/21/2018 8:25 AM CDTAssociated Problem(s): Paroxysmal atrial fibrillation (CMS/HCC) (HCC) This has not been well documented in the past. At this time, she remains in NSR. We will continue CVA prophylaxis with Apixaban 5 mg BID * Assessment & Plan Note - Castillo Hannon MD - 11/21/2018 8:24 AM CDTAssociated Problem(s): Hypertension (Resolved 06/01/2019) Her BP is currently very well controlled. We will continue HCTZ 25 mg daily, Lasix 20 mg daily, Metoprolol XL 50 mg daily at this time. We will have her continue to monitor her sodium intake and maintain an active lifestyle. * Assessment & Plan Note - Castillo Hannon MD - 11/21/2018 8:22 AM CDTAssociated Problem(s): CAD (coronary artery disease) She has non-obstructive coronary artery disease. We will continue optimal secondary risk factor strategies. She should continue Eliquis 5 mg BID. We will optimize her lipid and blood pressure management at this time. documented in this encounter Plan of Treatment Not on file documented as of this encounter Visit Diagnoses Diagnosis Patent foramen ovale- Primary Ostium secundum type atrial septal defect Paroxysmal atrial fibrillation (CMS/HCC) (HCC) Atrial fibrillation Essential hypertension Unspecified essential hypertension Other hyperlipidemia Coronary artery disease involving [place] heart without angina pectoris, unspecified vessel or lesion type Heart failure with preserved ejection fraction (CMS/HCC) (HCC) documented in this encounter Care Teams Manager Cleaning Relationship Specialty Start Date End Date Santiago Bueno MD [address] [place] [address] PCP - General 11/30/16 06/09/20 [place] [address] [place] [address] Rheumatology 07/15/17 documented as of this encounter
--- OUTSIDE RECORDS SUMMARY | 2024-08-29 10:22 | XMS_ITS | Encounter Summary ---
Author Organization [facility] Address [address] [place] [address] Care Team Providers Care Air Crew Supervisor Name Role Phone Santiago Bueno MD Primary Care Provider [phone] Gladis Song MD Unavailable Reason for Referral * Diagnostic Imaging (Routine) - Closed Specialty Diagnoses / Procedures Referred By Contac chiqui Referred To Contact Diagnoses Epigastric abdominal pain Procedures NM Hepatobiliary Imaging W Santiago Cook MD Phone: tel: fax: [address] [place] [address] Referral ID Status Reason Start Date Expiration Date Visits Re quested Visits Authorized [id number] Closed 07/11/2018 01/20/2020 2 2 ESSOR HELPER Reason for Visit * Diagnostic Imaging (Routine) - Closed Specialty Diagnoses / Procedures Referred By Valerie florian Referred To Contact Diagnoses Epigastric abdominal pain Procedures NM Hepatobiliary Imaging W Santiago Cook MD Phone: tel: fax: [place] [address] [address] [place] [place] [address] Referral ID Status Reason Start Date Expiration Date Visits Re quested Visits Authorized [id number] Closed 07/11/2018 01/20/2020 2 2 Encounter Details Date Type Department Care Team (Latest Contact Info) Description 07/18/2018 12:50 PM PROCESSOR HELPER - 07/18/2018 11:59 PM PROCESSOR HELPER Hospital Encounter [facility] [address] [address] Santiago Bueno MD [address] [place] [address] Epigastric abdominal pain Discharge Disposition: Discharge to home or self care Social History Tobacco Use Types Packs/Day Years Used Date Smoking Tobacco: Never Smokeless Tobacco: Never Alcohol Use Standard Drinks/Week Comments Yes 0 (1 standard drink = 0.6 oz pur e alcohol) rare wine Comments No Sex and Gender Information Value Date Recorded Sex Assigned at Not on file Legal Sex Female 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 Take one tab daily 90 tablet 05/14/2018 apixaban (ELIQUIS) 5 mg tablet 5 mg. 9 atorvastatin (LIPITOR) 80 mg tablet Take 1 tablet (80 mg total) by mouth daily. 90 tablet 3 04/04/2018 9 fluticasone (FLOVENT HFA) 110 mcg/actuation inhaler Inhale 1 puff 2 (two) times a day. Rinse mouth with water after use to reduce aftertaste and incidence of candidiasis. Do not swallow. 1 g 2 10/22/2017 9 furosemide (LASIX) 20 mg tablet Take 1 tablet (20 mg total) by mouth daily. 30 tablet 11 05/26/2018 9 hydroCHLOROthiaz dona (HYDRODIURIL) 25 mg tablet TAKE 1 TABLET EVERY DAY 90 tablet 1 06/11/2018 9 hydroxychloroqui ne (PLAQUENIL) 200 mg tablet Take 1 tablet (200 mg total) by mouth 2 (two) times a day. 180 tablet 05/14/2018 4 methotrexate 25 mg/mL syringe Inject 0.6 mL (15 mg total) under the skin once a week. 8 mL 03/19/2018 1 metoprolol XL (TOPROL XL) 50 mg 24 hr tablet Take 1 tablet (50 mg total) by mouth daily. 90 tablet 1 06/11/2018 9 montelukast (SINGULAIR) 10 mg tablet Take 1 tablet (10 mg total) by mouth nightly. 90 tablet 1 04/04/2018 9 nitroglycerin (NITROSTAT) 0.4 mg SL tablet May repeat dose every 5 minutes for up to 3 doses total. 25 tablet 3 05/23/[address] (PROTONIX) 40 mg EC tablet Take 1 tablet (40 mg total) by mouth daily. 30 tablet 11 10/21/2017 9 PARoxetine (PAXIL) 20 mg tablet Take 1 tablet (20 mg total) by mouth daily. 90 tablet 1 04/04/2018 9 potassium chloride ER (KLOR-CON,K-DUR) 20 mEq CR tablet Take 1 tablet (20 mEq total) by mouth 2 (two) times a day. 60 tablet 6 06/03/2018 9 syringe with needle 1 mL 28 gauge x 1/2 syringe Use to inject 0.6ml of methotrexate once weekly 12 Syringe 3 03/19/2018 0 VENTOLIN HFA 90 mcg/actuation inhaler INHALE 2 PUFFS EVERY 4-6 HOURS NEEDED 18 Inhaler 1 10/23/2017 9 documented as of this encounter Discharge Disposition Disposition Code Departure Means Destination Discharge to home or self care documented in this encounter Plan of Treatment Not on file documented as of this encounter Procedures Procedure Name Priority Date/Time Associated Diagnosis Comments NM HEPATOBILIARY IMAGING W PHARMACEUTICAL INTERVENTION Schedule Routine, Read Routine (OP Routine) 07/18/2018 3:36 PM PROCESSOR HELPER Epigastric abdominal pain documented in this encounter Results * NM Hepatobiliary Imaging W GBEF (07/18/2018 3:36 PM PROCESSOR HELPER) Anatomical Region Laterality Modality Body N/A Nuclear Medicine 07/18/2018 4:01 PM PROCESSOR HELPER Impressions 07/18/2018 4:36 PM PROCESSOR HELPER 1. ??Normal contractile response of gallbladder ??to sincalide infusion. 2. ??Normal biliary imaging study. Dictated by: Israel Jimenez M.D. Electronically signed by: Zac Fitzpatrick M.D. Narrative 07/18/2018 4:36 PM PROCESSOR HELPER EXAMINATION: ??HEPATOBILIARY SCINTIGRAPHY (WITH GALLBLADDER EJECTION FRACTION) [...] M.D. Electronically signed by: Zac Fitzpatrick M.D. Santiago [facility] [place] [facility] Final Result documented in this encounter Visit Diagnoses Diagnosis Epigastric abdominal pain Abdominal pain, epigastric documented in this encounter Administered Medications Inactive Administered Medications - up to 3 most recent administrations Medication Order MAR Action Action Date Dose Rate Site sincalide (KINEVAC) injection 1.5 mcg 1.5 mcg (rounded from 1.458 mcg = 0.02 mcg/kg ? 72.9 kg), intravenous, Administer over 30 Minutes, Once, On Sat07/18/18 at 1545, For 1 dose Given 07/18/2018 2:45 PM PROCESSOR HELPER 1.4 mcg Left Antecubital tc-99m mebrofenin (choletec) injection 3 millicurie 3 millicurie, intravenous, Once in imaging, radiopharmaceutical, Starting on Sat07/18/18 at 1400, For 1 dose, Indications: Diagnostic RadiographyIndication s:Diagnostic Radiography Given 07/18/2018 1:45 PM PROCESSOR HELPER 3.2 millicuries Left Antecubital documented in this encounter Care Teams Air Crew Supervisor Relationship Specialty Start Date End Date Santiago Bueno MD [address] [facility] [address] [place] [address] PCP - General 11/30/16 06/09/20 [place] [address] [facility] [address] [place] [id number] Rheumatology 07/15/17 documented as of this encounter
--- OUTSIDE RECORDS SUMMARY | 2024-08-29 10:22 | XMS_ITS | Encounter Summary ---
Author Organization [facility] Address [address] [place] [address] Phone Care Team Providers Care Child Welfare Director Name Role Phone Santiago Bueno MD Primary Care Provider [phone] Gladis Song MD Unavailable Encounter Details Date Type Department Care Team (Late st Contact Info) Description 11/24/[address] [facility] [address] 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 Gender Identity Not on file Sexual Orientation Not on file Occupation Industry Job Start Date Job End Date Retired Not on file Not on file Not on file documented as of this encounter Plan of Treatment Scheduled Orders Name Type Priority Associated Diagnoses Orde r Schedule Basic metabolic panel Lab Routine Hypertension, unspecified type Expected: 11/24/2018, Expires: 11/25/2019 documented as of this encounter Visit Diagnoses Diagnosis Hypertension, unspecified type- Primary documented in this encounter Care Teams Child Welfare Director Relationship Specialty Start Date End Date Santiago Bueno MD [address] [place] [address] PCP - General 11/30/16 06/09/20 [place] [address] [facility] [address] [place] [address] Rheumatology 07/15/17 documented as of this encounter
--- OUTSIDE RECORDS SUMMARY | 2024-08-29 10:22 | XMS_ITS | Encounter Summary ---
Author Organization [facility] Address [address] [place] [address] Care Team Providers Care Timber Surveyor Name Role Phone Santiago Bueno MD Primary Care Provider [phone] Gladis Song MD Unavailable Reason for Visit * Reason Onset Date Comments Dr Bueno Medical Question 06/23/2018 Encounter Details Date Type Department Care Team (Late st Contact Info) Description 06/23/2018 Telephone [facility] [address] [facility] [address] [place] [address] Santiago Bueno MD [address] [facility] [address] [place] [address] Dr Bueno Medical Question Social History Tobacco Use Types Packs/Day Years Used Date Smoking Tobacco: Never Smokeless Tobacco: Never Alcohol Use Standard Drinks/Week Comments Yes 0 (1 standard drink = 0.6 oz pur e alcohol) rare wine Comments No Sex and Gender Information Value Date Recorded Sex Assigned at Not on file Legal Sex Female 12:11 AM PLASTIC SURGERY TECHNICIAN Gender Identity Not on file Sexual Orientation Not on file Occupation Industry Job Start Date Job End Date Retired Not on file Not on file Not on file documented as of this encounter Miscellaneous Notes * Telephone Encounter - Ritika Mcpherson MA - 06/23/2018 5:08 PM CDT Patient scheduled. * Telephone Encounter - Yolie Liu - 06/23/2018 1:27 PM CDT Patient calling to schedule LAISHA appointment with Dr Bueno. She was seen at [facility] ER last 06/19/18 - she almost passed out that morning and had high blood pressure, she was advised to go to ER by her assistant refinery operator. She only wants to see Dr Bueno, not a nurse practitioner. Dr Bueno does not have any appointments available this week - she was told she needs to see Dr Bueno this week. She is upset that she is never able to schedule an appointment with Dr Bueno. Please call patient at [phone]. documented in this encounter Plan of Treatment Not on file documented as of this encounter Visit Diagnoses Not on filedocumented in this encounter Care Teams Timber Surveyor Relationship Specialty Start Date End Date Santiago Bueno MD [address] [facility] [address] [place] [address] PCP - General 11/30/16 06/09/20 [place] [address] [facility] [address] [place] [address] Rheumatology 07/15/17 documented as of this encounter
--- OUTSIDE RECORDS SUMMARY | 2024-08-29 10:22 | XMS_ITS | Encounter Summary ---
Author Organization [facility] Address [address] [place] [address] Care Team Providers Care Corporate Legal Intern Name Role Phone Santiago Bueno MD Primary Care Provider [phone] Gladis Song MD Unavailable Encounter Details Date Type Department Care Team (Late st Contact Info) Description 06/19/2018 Orders Only [facility] [address] [place] [address] Scanning, Provider Social History Tobacco Use Types Packs/Day Years Used Date Smoking Tobacco: Never Smokeless Tobacco: Never Alcohol Use Standard Drinks/Week Comments Yes 0 (1 standard drink = 0.6 oz pur e alcohol) rare wine Comments No Sex and Gender Information Value Date Recorded Sex Assigned at Not on file Legal Sex Female 12:11 AM 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 Gender Identity Not on file Sexual Orientation Not on file Occupation Industry Job Start Date Job End Date Retired Not on file Not on file Not on file documented as of this encounter Plan of Treatment Not on file documented as of this encounter Procedures Procedure Name Priority Date/Time Associated Diagnosis Comments SCAN - RADIOLOGY/IMAGING 06/19/2018 documented in this encounter Results * SCAN - RADIOLOGY/IMAGING (06/19/2018) Anatomical Region Laterality Modality Other us Provider Scanning Final Result documented in this encounter Visit Diagnoses Not on filedocumented in this encounter Care Teams Corporate Legal Intern Relationship Specialty Start Date End Date Santiago Bueno MD [address] [facility] [address] [place] [address] PCP - General 11/30/16 06/09/20 [place] [address] [facility] [address] [place] [address] Rheumatology 07/15/17 documented as of this encounter
--- OUTSIDE RECORDS SUMMARY | 2024-08-29 10:22 | XMS_ITS | Encounter Summary ---
Author Organization [facility] Address [address] [place] [address] Care Team Providers Care Client Professional Name Role Phone Santiago Bueno MD Primary Care Provider [phone] Gladis Song MD Unavailable Reason for Referral * Diagnostic Imaging (Routine) - Closed Specialty Diagnoses / Procedures Referred By Contac t Referred To Contact Diagnoses Congestive heart failure, unspecified HF chronicity, unspecified heart failure type (HCC) Procedures Transthoracic Echo Complete W Doppler/CF Judah Duggan MD Phone: tel: fax: [facility] (All Locations) Referral ID Status Reason Start Date Expiration Date Visits Re quested Visits Authorized [id number] Closed 05/26/2018 12/05/2019 1 1 Reason for Visit * Diagnostic Imaging (Routine) - Closed Specialty Diagnoses / Procedures Referred By Contac t Referred To Contact Diagnoses Congestive heart failure, unspecified HF chronicity, unspecified heart failure type (HCC) Procedures Transthoracic Echo Complete W Doppler/CF Judah Duggan MD Phone: tel: fax: [facility] (All Locations) Referral ID Status Reason Start Date Expiration Date Visits Re quested Visits Authorized [id number] Closed 05/26/2018 12/05/2019 1 1 Encounter Details Date Type Department Care Team (Latest Contact Info) Description 06/25/2018 12:58 PM CDT - 06/25/2018 11:59 PM CDT Hospital Encounter [facility] Cardiac Diagnostic Lab [address] [facility] [address] [place] [address] Judah Duggan MD [address] [place] [address] Congestive heart failure, unspecified HF chronicity, unspecified heart failure type (CMS/HCC) Discharge Disposition: Discharge to home or self care Social History Tobacco Use Types Packs/Day Years Used Date Smoking Tobacco: Never Smokeless Tobacco: Never Alcohol Use Standard Drinks/Week Comments Yes 0 (1 standard drink = 0.6 oz pur e alcohol) rare wine Comments No Sex and Gender Information Value Date Recorded Sex Assigned at Not on file Legal Sex Female 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 90 tablet 3 04/04/2018 9 azithromycin (ZITHROMAX) 250 mg tablet Take 2 tablets the first day, then 1 tablet daily for 4 days. 6 tablet 05/27/2018 8 fluticasone (FLOVENT HFA) 110 mcg/actuation inhaler Inhale [...] (TTE) COMPLETE W DOPPLER/CF W CONTRAST Routine 06/25/2018 2:32 PM CDT Congestive heart failure, unspecified HF chronicity, unspecified heart failure type (CMS/HCC) documented in this encounter Results * TRANSTHORACIC ECHO (TTE) COMPLETE W DOPPLER/CF W CONTRAST (06/25/2018 2:32 PM CDT) Anatomical Region Laterality Modality Ultrasound 06/25/2018 1:30 PM CDT Narrative 06/25/2018 4:26 PM CDT Patient name: Chio Orantes Date of test: 06/25/2018 Type of test: TTE w/Doppler [facility] #: [id number] Date of : 1950 (F) Building Materials Sales Attendant: Claudia Richmond RDCS Referring Physician: JUDAH DUGGAN MD Contrast Agent: 1.1 ml Optison Administered, (1.9 ml wasted). Contrast Administered by: Kiya Dickey RN Supervised/Interpreted by: Tricia ??MD Dulce Diagnosis: Location: [facility] Reason for test: CHF MV Structure: Normal, ?MV Motion: Normal, ?? Mitral Annulus: Normal AV Structure: tricuspid and is Normal, ?? AV Motion: Normal Aotic root: Normal, ?TM: Normal, ?? PV: Normal Valvular Vegetations: none seen, ?Mass/Thrombi: none seen RA: Normal Measurements: ?M-Mode ?Normal ? Aotic Root: ? <3.8 ? LA: ? <3.8 ? RV: ? <2.8 ? LV(ED): ? <5.7 ? LV(ES): ? Variable ?2D Linear Normal ? Aotic Root: 2.0 cm/M2 <2.0 ? LA: ? <3.8 ? RV: ? 2.3 cm ?<4.2 ? LV(ED): ? 3.9 cm ?<5.3 ? LV(ES): ? 2.6 cm ?<3.5 ?2D Vol. ?? Normal ?Indexed ?? Indexed Normal RA: ? 14.0 ml ? 8.2 ml/M2 ? 9-33 ? LA: ? 28.0 ml ? 16.5 ml/M2 ?16-34 ? RV: ? <11.6 ? LV(ED): ? 61.0 ml ?? 46-106 ?35.9 ml/M2 ?<62 ? LV(ES): ? 24.0 ml ?? 14-42 ? 14.1 ml/M2 ?<25 ?3D Vol. ? Indexed Normal LV(ED): ?<62 ? LV(ES): ?<24 ? LV EF: 61 % ?? (Normal: >=54%) ?? LV Septum: 1.1 cm ?(Normal: <0.9 cm) Wall Motion Scoring (1=Normal 2=Hypo 3=Akinetic 4=Dyskin./Aneurysm 0=Not visualized) Parasternal [place]:MAS=1 BAS=1 MP=1 BP=1 Parasternal [place]:MAS=1 MS=1 OK=1 MP=1 ML=1 MA=1 Apical 4 Chambers:=1 MS=1 BS=1 BL=1 OK=1 AL=1 Apical 2 Chambers:AI=1 OK=1 BI=1 BA=1 MA=1 AA=1 LV Global Longitudinal Strain: -17.1% ??(Normal <-19%) RV Global Longitudinal Strain: -22.6% ??(Normal <-19%) LV Function: Normal LV Ejection Fraction, ??(EF=54-74%) RV Function: Normal Septal Motion: Normal Pericardial Effusion: none seen Atrial Septum: Normal DOPPLER/COLOR FOLOW DOPPLER RESULTS: Diastolic Function: Impaired Relaxation Tricuspid Valve: mild TV regurgitation Pulmonic Valve: Mild TN AV Regurgitation: Mild AR AV Stenosis: no AV Area: ??cm2 AV Pressure Gradient (mmHg): Mean: 0, Peak:0 MV Regurgitation: Mild MR MV Stenosis: no MS MV Area: ??cm2 MV Pressure Gradient (mmHg): Mean: 0 MV ERO: ??cm Regurg. Vol.: ??ml/beat Regurg. Frac.: ??% PA Pressure: 27+3 mmHg DOPPLER/COLOR FOLOW DOPPLER COMMENTS: Mild AR, Mild MR, no , no MS, mild TV regurgitation, Mild TN. Diastolic function: Impaired Relaxation CONTRAST: 1.1 ml Optison Administered, (1.9 ml wasted). SUMMARY: Normal LV size, wall thickness, and systolic function, LVEF 61%. Normal RV size and systolic function. Impaired LV relaxation. Mild AI, MR, and TR. Est PASP 30 mmHg. Normal IVC. Normal atria. Aortic root 3.4 cm. Patient's Resident MD: CHF ? Confirmed on ??06/25/2018 - 16:26:56 by Tricia ??MD Dulce By signing this report, the attending compound specialist certifies that he or she has personally supervised and interpreted the echocardiogram and has reviewed and or edited and agrees with the written comments contained within the report. Procedure Note Tricia Cardona MD - 06/25/2018 Patient name: Chio Orantes Date of test: 06/25/2018 Type of test: TTE /[facility] #: [id number] Date of : 1950 (F) Building Materials Sales Attendant: Claudia Richmond [facility] Referring Physician: JDUAH DUGGAN MD Contrast Agent: 1.1 ml Optison Administered, (1.9 ml wasted). Contrast Administered by: Kiya Dickey RN Supervised/Interpreted by: Tricia Cardona MD Diagnosis: Location: [facility] Reason for test: CHF MV Structure: Normal, MV Motion: Normal, Mitral Annulus: Normal AV Structure: tricuspid and is Normal, AV Motion: Normal Aotic root: Normal, TM: Normal, PV: Normal Valvular Vegetations: none seen, Mass/Thrombi: none seen RA: Normal Measurements: M-Mode Normal Aotic Root: <3.8 LA: <3.8 RV: <2.8 LV(ED): <5.7 LV(ES): Variable 2D Linear Normal Aotic Root: 2.0 cm/M2 <2.0 LA: <3.8 RV: 2.3 cm <4.2 LV(ED): 3.9 cm <5.3 LV(ES): 2.6 cm <3.5 2D Vol. Normal Indexed Indexed Normal RA: 14.0 ml 8.2 ml/M2 9-33 LA: 28.0 ml 16.5 ml/M2 16-34 RV: <11.6 LV(ED): 61.0 ml 46-106 35.9 ml/M2 <62 LV(ES): 24.0 ml 14-42 14.1 ml/M2 <25 3D Vol. Indexed Normal LV(ED): <62 LV(ES): <24 LV EF: 61 % (Normal: >=54%) LV Septum: 1.1 cm (Normal: <0.9 cm) Wall Motion Scoring (1=Normal 2=Hypo 3=Akinetic 4=Dyskin./Aneurysm 0=Not visualized) Parasternal [place]:MAS=1 BAS=1 MP=1 BP=1 Parasternal [place]:MAS=1 MS=1 OK=1 MP=1 ML=1 MA=1 Apical 4 Chambers:=1 MS=1 BS=1 BL=1 OK=1 AL=1 Apical 2 Chambers:AI=1 OK=1 BI=1 BA=1 MA=1 AA=1 LV Global Longitudinal Strain: -17.1% (Normal <-19%) RV Global Longitudinal Strain: -22.6% (Normal <-19%) LV Function: Normal LV Ejection Fraction, (EF=54-74%) RV Function: Normal Septal Motion: Normal Pericardial Effusion: none seen Atrial Septum: Normal DOPPLER/COLOR FOLOW DOPPLER RESULTS: Diastolic Function: Impaired Relaxation Tricuspid Valve: mild TV regurgitation Pulmonic Valve: Mild TN AV Regurgitation: Mild AR AV Stenosis: no AV Area: cm2 AV Pressure Gradient (mmHg): Mean: 0, Peak:0 MV Regurgitation: Mild MR MV Stenosis: no MS MV Area: cm2 MV Pressure Gradient (mmHg): Mean: 0 MV ERO: cm Regurg. Vol.: ml/beat Regurg. Frac.: % PA Pressure: 27+3 mmHg DOPPLER/COLOR FOLOW DOPPLER COMMENTS: Mild AR, Mild MR, no , no MS, mild TV regurgitation, Mild TN. Diastolic function: Impaired Relaxation CONTRAST: 1.1 ml Optison Administered, (1.9 ml wasted). SUMMARY: Normal LV size, wall thickness, and systolic function, LVEF 61%. Normal RV size and systolic function. Impaired LV relaxation. Mild AI, MR, and TR. Est PASP 30 mmHg. Normal IVC. Normal atria. Aortic root 3.4 cm. Patient's Resident MD: CHF Confirmed on 06/25/2018 - 16:26:56 by Tricia Cardona MD By signing this report, the attending compound specialist certifies that he or she has personally supervised and interpreted the echocardiogram and has reviewed and or edited and agrees with the written comments contained within the report. Judah Duggan MD CV ECHO PROCEDURES Final Resul t documented in this encounter Visit Diagnoses Diagnosis Congestive heart failure, unspecified HF chronicity, unspecified heart failure type (HCC) documented in this encounter Administered Medications Inactive Administered Medications - up to 3 most recent administrations Medication Order MAR Action Action Date Dose Rate Site perflutren protein-a (OPTISON) 3 mL in sodium chloride 0.9% 8 mL syringe 1-8 mL, intravenous, Once in imaging, contrast, Starting on Sat06/25/18 at 1314, For 1 dose, Intra-Procedure (CV) Given 06/25/2018 2:28 PM CDT 3 mL documented in this encounter Care Teams Client Professional Relationship Specialty Start Date End Date Santiago Bueno MD [address] [place] [address] PCP - General 11/30/16 06/09/20 [place] [address] [facility] [address] [place] [address] Rheumatology 07/15/17 documented as of this encounter
--- OUTSIDE RECORDS SUMMARY | 2024-08-29 10:22 | XMS_ITS | Encounter Summary ---
Author Organization [facility] Healthcare Address [address] [place] [address] Care Team Providers Care Semiconductor Packages Tester Name Role Phone Santiago Bueno MD Primary Care Provider [phone] Gladis Song MD Unavailable Reason for Referral * Diagnostic Imaging (Routine) - Closed Specialty Diagnoses / Procedures [facility] To Contact Radiology Diagnoses Epigastric abdominal pain Procedures US RUQ Santiago Bueno MD Phone: tel: fax: [facility] [address] Referral ID Status Reason Start Date Expiration Date V isits Requested Visits Authorized [id number] Closed Specialty Services Required 07/03/2018 01/12/2020 1 1 ING OPERATOR Reason for Visit * Diagnostic Imaging (Routine) - Closed Specialty Diagnoses / Procedures [facility] Referred To Contact Radiology Diagnoses Epigastric abdominal pain Procedures US RUQ Santiago Bueno MD Phone: tel: fax: [facility] [address] Referral ID Status Reason Start Date Expiration Date V isits Requested Visits Authorized [id number] Closed Specialty Services Required 07/03/2018 01/12/2020 1 1 Encounter Details Date Type Department Care Team (Latest Contact Info) Description 07/11/2018 12:36 PM FILLING OPERATOR - 07/11/2018 11:59 PM FILLING OPERATOR Hospital Encounter [address] [facility] [address] [facility] [address] [place] [address] Santiago Bueno MD [address] [place] [address] Epigastric abdominal pain Discharge Disposition: Discharge to [...] on file Legal Sex Female 12:11 AM FILLING OPERATOR Gender Identity Not on file Sexual [...] Procedure Name Priority Date/Time Associated Diagnosis Comments US RUQ Schedule Routine, Read Routine (OP Routine) 07/11/2018 1:24 PM FILLING OPERATOR Epigastric abdominal pain documented in this encounter Results * US RUQ (07/11/2018 1:24 PM FILLING OPERATOR) Anatomical Region Laterality Modality Abdomen N/A Ultrasound 07/11/2018 2:55 PM FILLING OPERATOR Impressions 07/11/2018 2:58 PM FILLING OPERATOR 1. Normal right upper quadrant sonogram. Dictated by: Callum Garza M.D. Electronically signed by: Sukhdev Finch M.D. Narrative 07/11/2018 2:58 PM FILLING OPERATOR EXAMINATION: ??LIMITED ABDOMINAL SONOGRAM HISTORY: ??Epigastric abdominal [...] M.D. Electronically signed by: Sukhdev Finch M.D. us Santiago Bueno MD IMG US PROCEDURES Final Result documented in this encounter Visit Diagnoses Diagnosis Epigastric abdominal pain Abdominal pain, epigastric documented in this encounter Care Teams Semiconductor Packages Tester Relationship Specialty Start Date End Date Santiago Bueno MD [address] [place] [address] PCP - General 11/30/16 06/09/20 [place] [address] [facility] [address] [place] [address] Rheumatology 07/15/17 documented as of this encounter
--- OUTSIDE RECORDS SUMMARY | 2024-08-29 10:22 | XMS_ITS | Encounter Summary ---
Author Organization [facility] Address [address] [place] [address] Phone Care Team Providers Care Fitter Type Bar And Segment Name Role Phone Santiago Bueno MD Primary Care Provider [phone] Gladis Song MD Unavailable Encounter Details Date Type Department Care Team (Late st Contact Info) Description 06/10/2018 Telephone [facility] Cardiology [address] 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 Duggan recs; verbalizes understanding. * Telephone Encounter - Judah Duggan MD - 06/10/2018 6:17 PM CDT Please make sure she is taking it in the morning * Telephone Encounter - Dannielle Blackwood RN - 06/10/2018 4:14 PM CDT I spoke to pt regarding results/recs; verbalizes understanding. Pt is having trouble sleeping since she started the new meds. Any suggestions? * Telephone Encounter - Dannielle Blackwood RN - 06/10/2018 4:14 PM CDT ----- Message from Judah Duggan MD sent at 06/10/2018 4:05 PM CDT ----- BMP ok on furosemide. Please check bmp in 2 months ----- Message ----- From: Dannielle Blackwood RN Sent: 06/10/2018 3:23 PM To: Judah Duggan MD ----- Message ----- From: Sabine Kraft Sent: 06/10/2018 3:18 PM To: Dannielle Blackwood RN documented in this encounter Plan of Treatment Not on file documented as of this encounter Visit Diagnoses Not on filedocumented in this encounter Care Teams Fitter Type Bar And Segment Relationship Specialty Start Date End Date Santiago Bueno MD [address] [facility] [address] [place] [address] PCP - General 11/30/16 06/09/20 [place] [address] [facility] [address] [place] [address] Rheumatology 07/15/17 documented as of this encounter
--- OUTSIDE RECORDS SUMMARY | 2024-08-29 10:22 | XMS_ITS | Encounter Summary ---
Author Organization [facility] Address [address] [place] [address] Phone Care Team Providers Care Box Machine Operator Name Role Phone Santiago Bueno MD Primary Care Provider [phone] Gladis Song MD Unavailable Encounter Details Date Type Department Care Team (Late st Contact Info) Description 11/24/2018 Telephone [facility] Cardiology [address] [facility] Advanced Medicine 8th [place] [address] [place] [address] Judah Duggan MD [address] [place] [address] Social History Tobacco Use Types Packs/Day Years Used Date Smoking Tobacco: Never Smokeless Tobacco: Never Alcohol Use Standard Drinks/Week Comments Yes 0 (1 standard drink = 0.6 oz pur e alcohol) rare wine Comments No Sex and Gender Information Value Date Recorded Sex Assigned at Not on file 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 Duggan recs; verbalizes understanding. Lab order mailed to pt * Telephone Encounter - Dannielle Blackwood RN - 11/24/2018 9:58 AM CDT ----- Message from Judah Duggan MD sent at 11/21/2018 3:55 PM CDT ----- Lab is almost 6 months old. Since she is on a diuretic I want to make sure that her electrolytes are okay please check a BMP ----- Message ----- From: Dannielle Blackwood RN Sent: 11/21/2018 2:47 PM To: Judah Duggan MD ----- Message ----- From: Sabine Kraft Sent: 11/21/2018 2:15 PM To: Dannielle Blackwood RN Most recent labs they have for pt. documented in this encounter Plan of Treatment Not on file documented as of this encounter Visit Diagnoses Not on filedocumented in this encounter Care Teams Box Machine Operator Relationship Specialty Start Date End Date Santiago Bueno MD [address] [facility] [address] [place] [address] PCP - General 11/30/16 06/09/[address] [place] [address] [facility] [address] [place] [address] Rheumatology 07/15/17 documented as of this encounter
--- OUTSIDE RECORDS SUMMARY | 2024-08-29 10:23 | XMS_ITS | Encounter Summary ---
Author Organization [facility] Address [address] [facility] [address] [place] [address] Care Team Providers Care Small Animal Caretaker Name Role Phone Santiago Bueno MD Primary Care Provider [phone] Gladis Song MD Unavailable Encounter Details Date Type Department Care Team (Late st Contact Info) Description 05/27/2018 Telephone [facility] [address] [facility] [address] [place] [address] Tatum Benito NP [address] [facility] [address] [place] [address] Social History Tobacco Use Types Packs/Day Years Used Date Smoking Tobacco: Never Smokeless Tobacco: Never Alcohol Use Standard Drinks/Week Comments Yes 0 (1 standard drink = 0.6 oz pur e alcohol) rare wine Comments Unknown Sex and Gender Information Value Date Recorded Sex Assigned at Not on file Legal Sex Female 12:11 AM DOPER OPERATOR Gender Identity Not on file Sexual Orientation Not on file Occupation Industry Job Start Date Job End Date Retired Not on file Not on file Not on file documented as of this encounter Miscellaneous Notes * Telephone Encounter - Elidia Griffiths MA - 05/27/2018 12:41 PM CDT Pt notified of message and verbalized understanding. * Telephone Encounter - Tatum Benito NP - 05/27/2018 7:44 AM CDT Call patient and let her know that her Urology CT scan showed part of her lungs. There is a potential infection. Dr. bueno is putting her on an antibiotic. He would like to see her back in the officein [address] scan will need to be repeated in approximately 6-8 weeks. documented in this encounter Plan of Treatment Not on file documented as of this encounter Visit Diagnoses Not on filedocumented in this encounter Care Teams Small Animal Caretaker Relationship Specialty Start Date End Date Santiago Bueno MD [address] [facility] [address] [place] [address] PCP - General 11/30/16 06/09/20 [place] [address] [facility] [address] [place] [address] Rheumatology 07/15/17 documented as of this encounter
--- OUTSIDE RECORDS SUMMARY | 2024-08-29 10:23 | XMS_ITS | Encounter Summary ---
Author Organization [facility] Address [address] [place] [address] Phone Care Team Providers Care Travel Money Advisor Name Role Phone Santiago Bueno MD Primary Care Provider [phone] Gladis Song MD Unavailable Encounter Details Date Type Department Care Team (Late st Contact Info) Description 06/03/2018 Orders Only [facility] Cardiology [address] [facility] [address] [place] [address] Judah Duggan MD [address] [place] [address] Coronary artery disease with other form of angina pectoris, unspecified vessel or lesion type, unspecified whether [place] or transplanted heart (CMS/HCC) (Primary Dx) Social History Tobacco Use Types Packs/Day Years Used Date Smoking Tobacco: Never Smokeless Tobacco: Never Alcohol Use Standard Drinks/Week Comments Yes 0 (1 standard drink = 0.6 oz pur e alcohol) rare wine Comments No Sex and Gender Information Value Date Recorded Sex Assigned at Not on file Legal Sex Female 12:11 AM [address] Gender Identity Not on file Sexual Orientation Not on file Occupation Industry Job Start Date Job End Date Retired Not on file Not on file Not on file documented as of this encounter Plan of Treatment Scheduled Orders Name Type Priority Associated Diagnoses Orde r Schedule Basic metabolic panel Lab Routine Coronary artery disease with other form of angina pectoris, unspecified vessel or lesion type, unspecified whether [place] or transplanted heart (CMS/HCC) Expected: 06/03/2018, Expires: 06/03/2019 documented as of this encounter Visit Diagnoses Diagnosis Coronary artery disease with other form of angina pectoris, unspecified vessel or lesion type, unspecified whether [place] or transplanted heart (HCC)- Primary documented in this encounter Care Teams Travel Money Advisor Relationship Specialty Start Date End Date Santiago Bueno MD [address] [facility] [address] [place] [address] PCP - General 11/30/16 06/09/20 [place] [address] [facility] [address] [place] [address] Rheumatology 07/15/17 documented as of this encounter
--- OUTSIDE RECORDS SUMMARY | 2024-08-29 10:23 | XMS_ITS | Encounter Summary ---
Author Organization [facility] Address [address] [place] [address] Care Team Providers Care Marketing Project Manager Name Role Phone Santiago Bueno MD Primary Care Provider [phone] Gladis Song MD Unavailable Encounter Details Date Type Department Care Team (Late st Contact Info) Description 05/27/2018 Orders Only [facility] [address] [place] [address] Tatum Benito NP 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 6 tablet 05/27/2018 8 documented in this encounter Plan of Treatment Not on file documented as of this encounter Visit Diagnoses Not on filedocumented in this encounter Care Teams Marketing Project Manager Relationship Specialty Start Date End Date Santiago Bueno MD [address] [place] [address] PCP - General 11/30/16 06/09/20 [place] [id number] [facility] [[email or web address] [address] [place] [address] Rheumatology 07/15/17 documented as of this encounter
--- OUTSIDE RECORDS SUMMARY | 2024-08-29 10:23 | XMS_ITS | Encounter Summary ---
Author Organization [facility] Address [address] [place] [address] Phone Care Team Providers Care Unhairer Name Role Phone Santiago Bueno MD Primary Care Provider [phone] Gladis Song MD Unavailable Encounter Details Date Type Department Care Team (Latest Contact Info) Description 06/10/2018 Orders Only [facility] Scanning, Provider Social History Tobacco Use Types Packs/Day Years Used Date Smoking Tobacco: Never Smokeless Tobacco: Never Alcohol Use Standard Drinks/Week Comments Yes 0 (1 standard drink = 0.6 oz pur e alcohol) rare wine Comments No Sex and Gender Information Value Date Recorded Sex Assigned at Not on file 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 Gender Identity Not on file Sexual Orientation Not on file Occupation Industry Job Start Date Job End Date Retired Not on file Not on file Not on file documented as of this encounter Plan of Treatment Not on file documented as of this encounter Procedures Procedure Name Priority Date/Time Associated Diagnosis Comments SCAN - LABS 06/10/2018 documented in this encounter Results * SCAN - LABS (06/10/2018) us Provider Scanning Edited Result - Final documented in this encounter Visit Diagnoses Not on filedocumented in this encounter Care Teams Unhairer Relationship Specialty Start Date End Date Santiago Bueno MD [address] [place] [address] PCP - General 11/30/16 06/09/20 [place] [address] [address] [facility] [address] [place] [address] Rheumatology 07/15/17 documented as of this encounter
--- OUTSIDE RECORDS SUMMARY | 2024-08-29 10:23 | XMS_ITS | Encounter Summary ---
Author Organization [facility] Address [address] [place] [address] Care Team Providers Care Kiln Charger Name Role Phone Santiago Bueno MD Primary Care Provider [phone] Gladis Song MD Unavailable Encounter Details Date Type Department Care Team (Late st Contact Info) Description 05/23/2018 1:40 PM CDT Lab [address] [address] Chest pain due to myocardial ischemia, unspecified ischemic chest pain type Social History Tobacco Use Types Packs/Day Years Used Date Smoking Tobacco: Never Smokeless Tobacco: Never Alcohol Use Standard Drinks/Week Comments Yes 0 (1 standard drink = 0.6 oz pur e alcohol) rare wine Comments Unknown Sex and Gender Information Value Date Recorded Sex Assigned at Not on file 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 Gender Identity Not on file Sexual Orientation Not on file Occupation Industry Job Start Date Job End Date Retired Not on file Not on file Not on file documented as of this encounter Plan of Treatment Not on file documented as of this encounter Procedures Procedure Name Priority Date/Time Associated Diagnosis Comments TROPONIN I Routine 05/23/2018 1:38 PM CDT Chest pain due to myocardial ischemia, unspecified ischemic chest pain type documented in this encounter Results * Troponin I (05/23/2018 1:38 PM CDT) Troponin I <0.03 0.00 - 0.03 ng/mL [facility] Comment: Interpretive Data: Normal plasma Troponin I concentrations can reach 1 ng/mL in the first two weeks of life and slowly decrease to adult levels (<0.03 ng/mL) by the age of 3 months. > 3 months ??<0.03 ng/mL > or = 18 years Serial determinations are recommended for the diagnosis of myocardial infarction. ??Temporal rise and fall are consistent with myocardial infarction when at least one value is above the 99th percentile upper reference limit for Troponin assay. References: 1. Clin Chem 2013;59:8504-9507 2. Journal of the [employer] 2012;60:1581-98 Current Interpretive Data Last Revised Date: 2018. Blood specimen (specimen) 05/23/2018 1:38 PM CDT 05/23/2018 1:50 PM CDT Narrative [facility] - 05/23/2018 2:26 PM CDT Judah Duggan MD LAB BLOOD ORDERABLES Final Res ult [facility] [address] [facility] Department [place] [address] documented in this encounter Visit Diagnoses Diagnosis Chest pain due to myocardial ischemia, unspecified ischemic chest pain type documented in this encounter Care Teams Kiln Charger Relationship Specialty Start Date End Date Santiago Bueno MD [address] [place] [address] PCP - General 11/30/16 06/09/20 [place] [address] [place] [address] Rheumatology 07/15/17 documented as of this encounter
--- OUTSIDE RECORDS SUMMARY | 2024-08-29 10:23 | XMS_ITS | Encounter Summary ---
Author Organization [facility] Healthcare Address [address] [place] [address] Care Team Providers Care Inspector Subassembly Name Role Phone Santiago Bueno MD Primary Care Provider [phone] Gladis Song MD Unavailable Encounter Details Date Type Department Care Team (Latest Contact Info) Description 05/26/2018 7:46 AM CDT - 05/26/2018 12:12 PM CDT Hospital Encounter [facility] [address] [place] [address] Judah Duggan MD [address] [place], [place] [id number] History of ischemic stroke without residual deficits; Chest pain due to myocardial ischemia, unspecified ischemic chest pain type Discharge Disposition: Discharge to home or self care Social History Tobacco Use Types Packs/Day Years Used Date Smoking Tobacco: Never Smokeless Tobacco: Never Alcohol Use Standard Drinks/Week Comments Yes 0 (1 standard drink = 0.6 oz pur e alcohol) rare wine Comments Unknown Sex and Gender Information Value Date Recorded Sex Assigned at Not on file 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 Gender Identity Not on file Sexual Orientation Not on file Occupation Industry Job Start Date Job End Date Retired Not on file Not on file Not on file documented as of this encounter Last Filed Vital Signs Vital Sign Reading Time Taken Comments Blood Pressure 118/64 05/26/2018 11:47 AM CDT Pulse 70 05/26/2018 11:47 AM CDT Temperature 37.1 ??C (98.8 ??F) 05/26/2018 8:20 AM CD T Respiratory Rate 18 05/26/2018 11:47 AM CDT Oxygen Saturation 98% 05/26/2018 11:47 AM CDT Inhaled Oxygen Concentration - - Weight 68 kg (150 lb) 05/23/2018 2:00 PM CDT Height - - Body Mass Index 29.29 05/23/2018 9:34 AM CDT documented in this encounter Medications [...] 1 TABLET EVERY DAY 90 tablet 1 11/18/2017 8 hydroxychloroqui ne (PLAQUENIL) 200 mg tablet Take 1 tablet (200 mg total) by mouth 2 (two) times a day. 180 tablet 05/14/2018 4 methotrexate 25 mg/mL syringe Inject 0.6 mL (15 mg total) under the skin once a week. 8 mL 03/19/2018 1 metoprolol XL (TOPROL XL) 50 mg 24 hr tablet take 1 tablet by oral route every day 0 0 04/16/2016 8 montelukast (SINGULAIR) 10 mg tablet Take 1 [...] mouth daily. 90 tablet 1 04/04/2018 9 syringe with needle 1 mL 28 gauge x 1/2 syringe Use to inject 0.6ml of methotrexate once weekly 12 Syringe 3 03/19/2018 0 VENTOLIN HFA 90 mcg/actuation inhaler INHALE 2 PUFFS EVERY 4-6 HOURS NEEDED 18 Inhaler 1 10/23/2017 9 documented as of this encounter Discharge Disposition Disposition Code Departure Means Destination Discharge to home or self care documented in this encounter Miscellaneous Notes * Pre-Sedation Documentation - Maribel Rojas NP - 05/26/2018 8:43 AM CDT Sedation Plan ASA 3 - Severe systemic disease Risks, benefits, and alternatives discussed with patient. History of sedation/Anesthesia complications:No History of transfusion reaction: No Current Facility-Administered Medications Medication Dose Route Frequency Provider Last Rate Last Dose ??? sodium chloride 0.9% flush 0.5-20 mL 0.5-20 mL intra-catheter PRN Maribel Rojas NP ??? sodium chloride 0.9% infusion 1 mL/kg/hr intravenous Continuous Maribel Rojas NP 68 mL/hr at 05/26/18822 1 mL/kg/hr at 05/26/18822 Followed by ??? sodium chloride 0.9% infusion 30 mL/hr intravenous Continuous Maribel Rojas NP 30 mL/hrat 05/26/1824 30 mL/hr at 05/26/18823 Laboratory review: Chemistry BMP No results found for: GLUCOSE, CALCIUM, SODIUM, POTASSIUM, CO2, BUNSER, CREATININE and CBC:No results found for: WBC, RBC, HGB, HCT, MCV, MCH, MCHC, RDW, RDWCV, RDWSD, MPV, NRBC, NRBCABS, NRBCPCT Current meds/Labs/Test Results that may affect sedation reviewed: Yes Last PO Intake: HEENT Exam: negative Sedation Plan: Moderate * Plan of Care - Dyana Brandt RN - 05/26/2018 8:11 AM CDT Correctional Officer Clinical Care Plan Name: Chio Orantes : 1950 Age: 67 y.o. Gender: female [facility]: [facility]* Admit: 05/26/2018 7:46 AM Plan of Care Nursing Diagnosis Anxiety R/T unknown procedure and fear of outcome Yes Alteration in comfort R/T effects of procedure/condition Yes Knowledge deficit R/T discharge instructions and pain plan Yes Potential for injury Yes Potential for infection Yes Other: Outcomes Patient will demonstrate less anxiety Yes Procedural effects controlled by interventions Yes Patient communicates understanding Yes Other: Interventions Medicate for pain control as ordered Yes Provide nonpharmacologic comfort measures Yes Explain procedure and events Yes Answer any questions and reassure patient Yes Explain discharge instructions and pain plan Yes Other: * Pre-Cardiac Catheterization Workup and H&P - Maribel Rojas NP - 05/23/2018 1:47 PM CDT PRE-CARDIAC CATHETERIZATION WORKUP Patient Name: Chio Orantes Patient Patient : 1950 Date of Procedure: 05/26/2018 ORDERING HEAD PORTER: Surgeon(s): Judah Duggan MD Procedure(s): LEFT HEART CATHETERIZATION WITH CORONARY ANGIOGRAPHY AND WITH OR WITHOUT LEFT VENTRICULOGRAM 50689 Requested Diagnostic: [] Coronary Angiograms Only [x] Left Heart Cath [] LV Gram [] Right Heart Cath [] Right and Left Heart Cath Valve Study: [] Aortic [] Mitral [] Pulmonic [] Tricuspid [] Pulmonary HTN Study [] Pericardial Constriction Study [] Congential Study [] Other Study: Requested Intervention: [] Coronary [] FFR [] Percutaneous VAD [] IAPB [] Pericardiocentesis [] Vascular [] Renal Valvuloplasty: [] Aortic [] Mitral [] Pulmonic [] Tricuspid Strucutural Heart: [] ASD/PFO Closure [] VSD Closure [] TAVR [] Other Intervention: NARRATIVE: 67 y/o female with h/o CVA, htn, dyslipidemia w/ c/o chest pain that feels like heart burn at rest relieved somewhat with Tums. States has had s/s for 3 months and s/s are worse over the past 2 weeks. Referred for LHC. ALLERGIES: Levofloxacin; Nitrofurantoin; Sulfa (sulfonamide antibiotics); and Latex Topical Iodine Allergy: [x] No [] Yes IV Contrast Allergy: [x] No [] Yes If yes, Premedicated for contrast allergy: [] No [] Yes PRE-Procedure Medications Antiarrhythmic Agent: [] Yes [x] No [] Contraindicated Aspirin: [x] Yes [] No [] Contraindicated Beta Lety (Any): [x] Yes [] No [] Contraindicated Ca Channel Lety (Any): [] Yes [x] No [] Contraindicated Long Acting Nirates (Any): [] Yes [x] No [] Contraindicated Non-Statin (Any): [] Yes [x] No [] Contraindicated Ranolazin: [] Yes [x] No [] Contraindicated Statin (Any): [x] Yes [] No [] Contraindicated Indications for Correctional Officer visit (Select all that apply): [] ACS less than or equal to 24 hours [] ACS greater than 24 hours [] Stable/Known CAD [] Cardiac Arrhythmia [] Post Cardiac Transplant [] New Onset Angina less than or equal to 2 months [] Suspected CAD [x] Worsening Angina [] Cardiomyopathy [] Pre-operative evaluation [] Valvular Disease [] LV Dysfunction [] Evaluation for Exercise Clearance [] Syncope [] Pericardial Disease [] Resuscitated Cardiac Arrest [] Congenital Heart Disease [] Evaluate CAD [] Pre-Transplant Evaluation [] Abnormal Stress Test [] Pulmonary HTN [] Heart Failure [] Other: Chest Pain Symptom Assessment: [x] Typical Angina [] Atypical Angina [] Non-anginal Chest Pain [] Asymptomatic HISTORY AND RISK FACTORS Family History of Premature CAD: [x] Yes [] No [] Male less than 55 years old [x] Female less than 65 years old Relationship: mother Cerebrovascular Disease: [x] Yes [] No Hypertension: [x] Yes [] No Diabetes Mellitus: [] Yes [x] No Dyslipidemia: [x] Yes [] No Peripheral Arterial Disease: [] Yes [x] No Chronic Lung Disease: [] Yes [x] No Prior Heart Failure: [] Yes [x] No [] CKD [] ESRD [] Dialysis [] HD []PD: Prior MD: [] Yes [x] No If Yes, Most Recent MD Date: Tobacco Use History Smoking Status ??? Never Smoker Smokeless Tobacco ??? Never Used If Current - Every Day and Cigarettes, Amount: Previous Cardiac and Peripheral Interventions: (Include hospital/procedure/most recent date) Cardiac Cath/Prior PCI:[] Yes [] No If Yes, Most Recent PCI Date: Report Available: [] Yes [] No Prior CABG: [] Yes [x] No If Yes, Most Recent CABG Date: Report Available: [] Yes [] No Valvular Surgery: [] Yes [x] No Report Available: [] Yes [] No (Include percutaneous procedures): Peripheral Intervention: [] Yes [x] No Report Available: [] Yes [] No LABS Results for orders placed or performed in visit on 05/13/18 Urinalysis reflex to microscopic Urine Result Value Ref Range Color, ur Yellow Yellow Clarity, ur Clear Clear Specific gravity, ur 1.020 1.010 - 1.025 pH, urine 6.0 Protein, ur ql Negative Negative Glucose, ur ql Negative Negative Ketones, ur Negative Negative Bilirubin, ur Negative Negative Blood, ur 1+ (A) Negative Urobilinogen, ur 0.2 <2.0 mg/dL Nitrite, ur Negative Negative Leukocyte esterase, ur Negative Negative CBC with auto differential Result Value Ref Range WBC 6.0 3.8 - 9.9 K/cumm Hgb 13.6 11.9 - 15.5 g/dL Hct 44.0 35.6 - 45.5 % Plt 257 150 - 400 K/cumm MPV 9.6 9.1 - 12.3 fL RBC 4.80 3.90 - 5.20 M/cumm MCV 91.7 81.3 - 96.4 fL MCH 28.3 27.1 - 33.3 pg MCHC 30.9 (L) 32.3 - 35.7 g/dL RDW CV 15.3 (H) 11.1 - 14.9 % RDW SD 51.0 (H) 35.7 - 48.1 fL NRBC Abs 0.00 0.00 - 0.01 K/cumm Comprehensive metabolic panel Result Value Ref Range Sodium 142 135 - 145 mmol/L Potassium, pl 4.0 3.3 - 4.9 mmol/L Chloride 99 97 - 110 mmol/L CO2 29 22 - 32 mmol/L Anion Gap 14 2 - 15 mmol/L BUN 18 8 - 25 mg/dL Creatinine 0.80 0.60 - 1.10 mg/dL Glucose 88 70 - 199 mg/dL Calcium 9.3 8.5 - 10.3 mg/dL Bilirubin, total 0.4 0.1 - 1.2 mg/dL Protein, pl 7.3 6.5 - 8.5 g/dL Albumin 4.3 3.5 - 5.0 g/dL Alk phos 85 40 - 130 Units/L ALT 33 7 - 45 Units/L AST 34 10 - 45 Units/L Hemoglobin A1c Result Value Ref Range Hgb A1C 5.8 (H) 4.0 - 5.6 % Estimated Average Glucose 120 mg/dL Lipid panel Result Value Ref Range Cholesterol 131 30 - 199 mg/dL Triglycerides 58 <=149 mg/dL HDL 55 >=40 mg/dL LDL, calculated 64 <=129 mg/dL Non-HDL Cholesterol 76 mg/dL Chol/HDL ratio 2 TSH Result Value Ref Range Thyroid Stimulating Hormone 2.27 0.30 - 4.20 mcIUnit/mL Differential, auto Result Value Ref Range Neutrophil absolute 3.2 1.7 - 6.5 K/cumm Immature granulocyte absolute 0.0 0.0 - 0.1 K/cumm Lymphocytes absolute 1.6 0.8 - 3.3 K/cumm Monocyte absolute 0.7 0.2 - 0.8 K/cumm Eosinophils absolute 0.3 0.0 - 0.5 K/cumm Basophils, abs 0.1 0.0 - 0.1 K/cumm Neutrophils 54.3 % Immature granulocytes 0.2 % Lymphocytes 27.6 % Monocytes 11.4 % Eosinophils 5.5 % Basophils 1.0 % Urinalysis, microscopic only Result Value Ref Range WBC, ur 0-5 0 - 5 /HPF RBC, ur 0-5 0 - 5 /HPF eGFR Result Value Ref Range GFR >60 mL/min/1.73 m2 WBC HGB HCT pits PT INR PTT Na K+ Glucose BUN Cr HCG Cath/PCI Indication: [] CAD (without Ischemic Sx) [] Stable Angina [] New Onset Angina less than or equal to 2 months [x] NSTE-ACS [] Other: [] STEMI Symptom Date: Time: [] Thrombolytic [] Yes [] No If Yes, Start Date Time [] Staged PCI, Anginal symptoms stable on Medical Therapy and restricted activity: Anginal Class within 2 weeks [] CCS I [] CCS II [] CCS III [x] CCS IV If AMI: [] Cardiogenic Shock at First Medical Contact [] Systolic Blood Pressure: and Heart Rate: at First Medical Contact [] Cardiac arrest within 24 hours [] Cardiogenic shock within 24 hours [] Cardiogenic shock at start of PCI Heart Failure: [] Yes [x] NO If Yes, Newly Diagnosed: [] Yes [] No [facility] Class: [] Class I [] Class II [] Class III [] Class IV HF Type: [] Diastolic [] Systolic [] Unknown Test Performed (Choose One): [] Exercise Stress Test (w/o imaging) [] Stress Echocardiogram [] Stress Nuclear [] Stress Imaging w/CMR [] Cardiac CTA If Yes, Result: Result: [] Negative [] Positive [] Indeterminate IF Positive: Risk/Extent of ischemia: [] Low [] Intermediate [] High FINDINGS LVEF Assessed: [] Yes [] No If yes, Most recent LVEF %: ECHO: Nurse Coordinator: Gracia Carpenter Date: 05/23/18 Time: 1434 PHYSICAL EXAM Vitals: 05/26/18 0820 BP: 148/86 Pulse: 68 Resp: 13 Temp: 37.1 ??C (98.8 ??F) SpO2: 100% General: NAD HEENT: EOMI, oropharynx clear Neck: Supple without thyromegaly Lungs: CTAB Cardiac: RRR, normal S1 and S2, no murmurs/rubs/gallops. JVP not elevated, no LE edema. Abdomen: obese, soft, nontender, nondistended Extremities: warm, no clubbing/cyanosis Neuro: grossly intact Psych: normal affect, mood, judgment Pulses Carotid/Bruit Brachial Radial Femoral/Bruit Popiteal DP PT Left 1+ 1+ 1+ Right 1+ 1+ 1+ EKG: sinus rhythm with 1st degree AV block IMPRESSION: 67yoF h/o angina, here for [facility] Clinical Frailty Scale: [] 1: Very Fit [] 2: Well [x] 3: Managing Well [] 4: Vulnerable [] 5: Mildly Frail [] 6: Moderately Frail [] 7: Severely Frail [] 8: Very Severely Frail [] 9: Terminally Ill PLAN: Procedure, risks, benefits and alternatives have been explained to the patient. The patient voiced understanding, consent is signed and orders are written. Form Completed/Reviewed and Assessment Completed by: Name: Maribel Rojas CASTING FINISHER-C Date: 05/26/18 Time: 844 documented in this encounter Plan of Treatment Not on file documented as of this encounter Procedures Procedure Name Priority Date/Time Associated Diagnosis Comments LEFT HEART CATHETERIZATION WITH CORONARY ANGIOGRAPHY AND WITH AND WITHOUT LEFT VENTRICULOGRAM Routine 05/26/2018 9:44 AM CDT CBC WITHOUT DIFFERENTIAL Routine 05/26/2018 9:35 AM CDT ECG 12-LEAD Routine 05/26/2018 8:11 AM CDT documented in this encounter Results * LEFT HEART CATHETERIZATION WITH CORONARY ANGIOGRAPHY AND WITH AND WITHOUT LEFT VENTRICULOGRAM (05/26/2018 9:44 AM CDT) Anatomical Region Laterality Modality X-Ray Angiograph y Narrative 05/27/2018 4:05 AM CDT Final Cardiac Catheterization Report Clinical Profile: ??Patient is a 67-year-old female with a past medical history of hypertension, CVA, hyperlipidemia who presented with a 2 months history of class 3-4 unstable angina. ??There was originally concerned that her symptoms represent gastroesophageal reflux disease. ??Her GI evaluation was normal. ??However, she describes symptoms on climbing stairs with radiation to her jaw at rest compatible with class 3-4 unstable angina. ?? She describes worsening of her symptoms over the past couple of weeks. Procedure: 1. ?? The patient prepped and draped in the usual sterile fashion. ?? 2. Using the modified micropuncture technique a 6 Mauritian sheath was placed in the right femoral artery. ?? 3. Iliac angiography. ?? 4. Selective coronary artery using 6 Mauritian JL4 and 6 Mauritian JR4 diagnostic catheter. ?? 5. Left heart hemodynamics. ?? 6. Right femoral arteriotomy was closed with 6 Mauritian Angio-Seal device without complication RESULTS: - Hemodynamics Left Heart Hemodynamics: ??The LVEDP was markedly elevated at 22 no rales noted across aortic valve on pullback - Coronary Angiography Left Main: ??The left main is without significant atherosclerotic coronary artery disease. ?? Left Anterior Descending: The LAD gives rise to several diagonals the 3rd 1 is a major 1 the mid LAD has minor plaquing. ?? Circumflex: The circumflex is a nondominant vessel the mid circumflex has a 20-30% narrowing obtuse marginal 1 bifurcates and has mild plaquing obtuse marginal 2 has a 20% lesion. ?? Right Coronary Artery: The right coronary artery is a dominant vessel. ?? Has some areas of mild ectasia proximal with a 20 to ??30% narrowing in the midportion - Diagnostic Impression relatively mild coronary artery disease 20-30% narrowing in the circumflex and right coronary artery with markedly elevated LVEDP - Therapeutic Recommendations the patient presents with symptoms of chest pain and shortness of breath. Her for coronary artery disease is relatively mild. ??Her symptoms are secondary to heart failure with preserved ejection fraction. ??She will be started on a diuretic. Judah Duggan MD CV CARDIAC CATH PROCEDURES Mohit tuttle Result * (ABNORMAL) CBC without differential (05/26/2018 9:35 AM CDT) Pathologist [facility] WBC 5.1 3.8 - 9.9 K/cumm [facility] Hgb 12.5 11.9 - 15.5 g/dL [facility] Hct 39.2 35.6 - 45.5 % [facility] Plt 247 150 - 400 K/cumm [facility] MPV 9.6 9.1 - 12.3 fL [facility] RBC 4.48 3.90 - 5.20 M/cumm [facility] MCV 87.5 81.3 - 96.4 fL [facility] MCH 27.9 27.1 - 33.3 pg [facility] MCHC 31.9(L) 32.3 - 35.7 g/dL [facility] RDW CV 15.1(H) 11.1 - 14.9 % [facility] RDW SD 48.0 35.7 - 48.1 fL [facility] NRBC abs 0.00 0.00 - 0.01 K/cumm [facility] Blood specimen (specimen) 05/26/2018 9:35 AM CDT 05/26/2018 9:55 AM CDT Narrative [facility] - 05/26/2018 10:13 AM CDT To be drawn after hydration bolus complete us Maribel Patricio CASTING FINISHER LAB BLOOD ORDERABLES Final Re sult [facility] Department [place] [address] * ECG 12 lead (05/26/2018 8:11 AM CDT) Ventricular Rate EKG/Min 69 BPM [facility] Atrial Rate 69 BPM [facility] SD-Interval (MSEC) 222 ms [facility] QRS-Interval (MSEC) 92 ms [facility] QT-Interval (MSEC) 410 ms [facility] QTc 439 ms [facility] P Adolphus 59 degrees [facility] R Adolph[place] -24 degrees [facility] T [place] 39 degrees [facility] Diagnosis Sinus rhythm with 1st degree A-V block Otherwise normal ECG No previous ECGs available This ECG was personally interpreted by the attending physician indicated below Confirmed by MARINE OLIVA M.D ([id number]) on 05/27/2018 2:12:39 PM [facility] 05/26/2018 8:11 AM CDT 05/27/2018 2:12 PM CDT us Maribel Patricio NP ECG ORDERABLES Final Result [facility] documented in this encounter Visit Diagnoses Diagnosis History of ischemic stroke without residual deficits Chest pain due to myocardial ischemia, unspecified ischemic chest pain type documented in this encounter Administered Medications Inactive Administered Medications - up to 3 most recent administrations Medication Order MAR Action Action Date Dose Rate Site aspirin chewable tablet 81 mg 81 mg, oral, Once, On Sat05/26/18 at 0930, For 1 dose, Pre-Procedure (CV) Given 05/26/2018 9:09 AM CDT 81 mg sodium chloride 0.9% bolus 204 mL 204 mL (3 mL/kg ? 68 kg), intravenous, Once, On Sat05/26/18 at 0845, For 1 dose, Pre-Op/Floor (CV) New Bag 05/26/2018 8:23 AM CDT 204 mL sodium chloride 0.9% flush 0.5-20 mL 0.5-20 mL, intra-catheter, As needed, line care, Starting on Sat05/26/18 at 0811, Pre-Procedure (CV), Flush volume based on line type and size. Flush before and after each use. , Indications: FlushingIndications:Flushin g sodium chloride 0.9% infusion 1 mL/kg/hr ? 68 kg (68 mL/hr), intravenous, Continuous, Starting on Sat05/26/18 at 0845, For 6 hours, Pre-Op/Floor (CV) New Bag 05/26/2018 8:23 AM CDT 1 mL/kg/hr 68 mL/hr sodium chloride 0.9% infusion 30 mL/hr, intravenous, Continuous, Starting on Sat05/26/18 at 1423, Pre-Op/Floor (CV) New Bag 05/26/2018 8:24 AM CDT 30 mL/hr 30 mL/hr documented in this encounter Active and Recently Administered Medications Times are shown in CDT. Scheduled Medication Order 05/24/2018 05/25/2018 05/26/2018 aspirin chewable tablet 81 mg (COMPLETED) 81 mg, oral, Once, On Sat05/26/18 at 0930, For 1 dose, Pre-Procedure (CV) 0909 (Given - Provid er: Rosa Lam RN) sodium chloride 0.9% bolus 204 mL (COMPLETED)(Linked Group 1) 204 mL (3 mL/kg ? 68 kg), intravenous, Once, On Sat05/26/18 at 0845, For 1 dose, Pre-Op/Floor (CV) 0823 (New Bag - Prov ider: Dyana Brandt RN) Continuous Medication Order 05/24/2018 05/25/2018 05/26/2018 sodium chloride 0.9% infusion(Linked Group 1) 1 mL/kg/hr ? 68 kg (68 mL/hr), intravenous, Continuous, Starting on Sat05/26/18 at 0845, For 6 hours, Pre-Op/Floor (CV) 0823 (New Bag - Prov ider: Dyana Brandt, ROZINA)0944 (Stopped - Provider: Lauren Jaramillo RN) sodium chloride 0.9% infusion(Linked Group 1) 30 mL/hr, intravenous, Continuous, Starting on Sat05/26/18 at 1423, Pre-Op/Floor (CV) 0824 (New Bag - Prov ider: Dyana Brandt RN) PRN Medication Order 05/24/2018 05/25/2018 05/26/2018 fentaNYL (SUBLIMAZE) preservative free injection (CANCELED) As needed, Starting on Sat05/26/18 at 0919, Intra-Procedure (CV) 0919 (Given - Provid er: Lauren Jaramillo RN) ioversol (OPTIRAY 350) injection (CANCELED) As needed, Starting on Sat05/26/18 at 0944, Intra-Procedure (CV) 0944 (Given - Provid er: Raleigh Luque MD) lidocaine (XYLOCAINE) 10 mg/mL (1 %) injection (CANCELED) As needed, Starting on Sat05/26/18 at 0933, Intra-Procedure (CV), Indications: Administration of Local Anesthesia 0931 (Given - Provid er: Raleigh Luque MD) midazolam (VERSED) preservative free injection (CANCELED) As needed, Starting on Sat05/26/18 at 0919, Intra-Procedure (CV) 0919 (Given - Provid er: Lauren Jaramillo RN) niCARdipine (CARDENE) 1 mg in 10 mL sodium chloride 0.9% (premix) (CANCELED) As needed, Starting on Sat05/26/18 at 0939, Intra-Procedure (CV) 0939 (Given - Provid er: Raleigh Luque MD) nitroglycerin injection 100 mcg/mL D5W 10 mL vial (CANCELED) As needed, Starting on Sat05/26/18 at 0939, Intra-Procedure (CV) 0939 (Given - Provid er: Raleigh Luque MD) sodium chloride 0.9% flush 0.5-20 mL 0.5-20 mL, intra-catheter, As needed, line care, Starting on Sat05/26/18 at 0811, Pre-Procedure (CV), Flush volume based on line type and size. Flush before and after each use. , Indications: Flushing 0911 (OCT Hold - Pro vider: Automatic Transfer Provider - Reason: Patient not available)1412 (OCT Unhold - Provider: User Epic) Linked Groups Order Group 1: sodium chloride 0.9% bolus 204 mL (COMPLETED)Jump to med 204 mL (3 mL/kg ? 68 kg), intravenous, Once, On Sat05/26/18 at 0845, For 1 dose, Pre-Op/Floor (CV) Followed by sodium chloride 0.9% infusionJump to med 1 mL/kg/hr ? 68 kg (68 mL/hr), intravenous, Continuous, Starting on Sat05/26/18 at 0845, For 6 hours, Pre-Op/Floor (CV) Followed by sodium chloride 0.9% infusionJump to med 30 mL/hr, intravenous, Continuous, Starting on Sat05/26/18 at 1423, Pre-Op/Floor (CV) documented in this encounter Orders Medications Ordered That Tahir ht Not Have Been Administered Count Last Ordered Date First Ordered Date fentaNYL (SUBLIMAZE) preserv ative free injection 1 05/26/2018 ioversol (OPTIRAY 350) injection 1 05/26/20 18 lidocaine (XYLOCAINE) 10 mg/ mL (1 %) injection 05/26/2018 midazolam (VERSED) preservat guerline free injection 1 05/26/2018 niCARdipine (CARDENE) 1 mg i n 10 mL sodium chloride 0.9% (premix) 1 05/26/2018 nitroglycerin injection 100 mcg/mL D5W 10 mL vial 1 05/26/2018 sodium chloride 0.9% flush 0.5-20 mL 1 05/04 Diet Count Last Ordered Date First Orde red Date ADULT DISCHARGE DIET 1 05/26/2018 Nursing Count Last Ordered Date First Orde red Date DISCHARGE INSTRUCTIONS 1 05/26/2018 CORE MEASURES Count Last Ordered Date First Ord ered Date REASON FOR NO VTE PROPHYLAXIS AT ADMISSION 1 05/26/2018 documented in this encounter Care Teams Inspector Subassembly Relationship Specialty Start Date End Date Santiago Bueno MD [address] [facility] [address] [place] [address] PCP - General 11/30/16 06/09/20 [place] [id number] [facility] [address] [place] [address] Rheumatology 07/15/17 documented as of this encounter
--- OUTSIDE RECORDS SUMMARY | 2024-08-29 10:23 | XMS_ITS | Encounter Summary ---
Author Organization [facility] Address [address] [place] [address] Phone Care Team Providers Care District Manager In Training Name Role Phone Santiago Bueno MD Primary Care Provider [phone] Gladis Song MD Unavailable Encounter Details Date Type Department Care Team (Latest Contact Info) Description 05/23/2018 Orders Only [facility] Scanning, Provider Social History Tobacco Use Types Packs/Day Years Used Date Smoking Tobacco: Never Smokeless Tobacco: Never Alcohol Use Standard Drinks/Week Comments Yes 0 (1 standard drink = 0.6 oz pur e alcohol) rare wine Comments Unknown Sex and Gender Information Value Date Recorded Sex Assigned at Not on file 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 Sex 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 Gender Identity Not on file Sexual Orientation Not on file Occupation Industry Job Start Date Job End Date Retired Not on file Not on file Not on file documented as of this encounter Plan of Treatment Not on file documented as of this encounter Procedures Procedure Name Priority Date/Time Associated Diagnosis Comments CARDIOLOGY DOCUMENT SCAN 05/23/2018 documented in this encounter Results * SCAN - CARDIOLOGY (05/23/2018) Anatomical Region Laterality Modality Other us Provider Scanning CV CARDIAC SERVICES PROCEDURES Final Result documented in this encounter Visit Diagnoses Not on filedocumented in this encounter Care Teams District Manager In Training Relationship Specialty Start Date End Date Santiago Bueno MD [address] [place] [address] PCP - General 11/30/16 06/09/20 [place] [address] [facility] [address] [place] [address] Rheumatology 07/15/17 documented as of this encounter
--- OUTSIDE RECORDS SUMMARY | 2024-08-29 10:23 | XMS_ITS | Encounter Summary ---
Author Organization [facility] Address [address] [place] [address] Care Team Providers Care Packing Machine Operator Name Role Phone Santiago Bueno MD Primary Care Provider Gladis Song MD Unavailable Reason for Visit * Diagnostic Imaging (Routine) - Closed Specialty Diagnoses / Procedures Referred By Valerie t Referred To Contact Radiology Diagnoses Osteopenia of multiple sites Procedures Dexa Axial Skeleton Bone Density 1 or 2 Site Santiago Bueno MD Phone: tel: fax: [facility] [address] Referral ID Status Reason Start Date Expiration Date Visits Re quested Visits Authorized [id number] Closed 05/13/2018 11/22/2019 1 1 Encounter Details Date Type Department Care Team (Latest Contact Info) Description 06/09/2018 10:57 AM CDT - 06/09/2018 11:59 PM CDT Hospital Encounter [facility] - 9 Imaging Center [address] [facility] [address] [place] [address] Santiago Bueno MD [address] [place] [address] Discharge Disposition: Discharge to home or self care Social History Tobacco Use Types Packs/Day Years Used Date Smoking Tobacco: Never Smokeless Tobacco: Never Alcohol Use Standard Drinks/Week Comments Yes 0 (1 standard drink = 0.6 oz pur e alcohol) rare wine Comments No Sex and Gender Information Value Date Recorded Sex Assigned at Not on file 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 Santiago Bueno MD IM DXA PROCEDURES Final Resul t documented in this encounter Visit Diagnoses Not on filedocumented in this encounter Care Teams Packing Machine Operator Relationship Specialty Start Date End Date Santiago Bueno MD [address] [facility] [address] [place] [address] PCP - General 11/30/16 06/09/20 [place] [address] [facility] [address] [place] [address] Rheumatology 07/15/17 documented as of this encounter
--- OUTSIDE RECORDS SUMMARY | 2024-08-29 10:23 | XMS_ITS | Encounter Summary ---
Author Organization [facility] Address [address] [place] [address] Care Team Providers Care Nuclear Physics Teacher Name Role Phone Santiago Bueno MD Primary Care Provider [phone] Gladis Song MD Unavailable Encounter Details Date Type Department Care Team (Late st Contact Info) Description 05/26/2018 9:35 AM CDT - 05/26/2018 11:10 AM CDT Surgery [facility] [address] [place] [id number] Judah Duggan MD [address] [place] [address] LEFT HEART CATHETERIZATION WITH CORONARY ANGIOGRAPHY AND WITH OR WITHOUT LEFT VENTRICULOGRAM [id number] Surgery Details Date/Time Status Location OR Service Patient Class Case Class Case Type Trauma Case? 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 CCL 06 Cardiovascular Outpatient Elective Panel 1 Procedure LRB Anes Op Region Wound Class Comments LEFT HEART CATHETERIZATION W ITH CORONARY ANGIOGRAPHY AND WITH OR WITHOUT LEFT VENTRICULOGRAM 67262 N/A Conscious Sedation Surgeon Surgeon Role Service Panel Judah Duggan MD Primary Cardiovascular 1 Raleigh Luque MD Fellow Cardiovascular 1 Case Notes [id number] arrival documented in this encounter Social History Tobacco Use Types Packs/Day Years Used Date Smoking Tobacco: Never Smokeless Tobacco: Never Alcohol Use Standard Drinks/Week Comments Yes 0 (1 standard drink = 0.6 oz pur e alcohol) rare wine Comments Unknown Sex and Gender Information Value Date Recorded Sex Assigned at Not on file 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 Sex 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 Gender Identity Not on file Sexual Orientation Not on file Occupation Industry Job Start Date Job End Date Retired Not on file Not on file Not on file documented as of this encounter Last Filed Vital Signs Vital Sign Reading Time Taken Comments Blood Pressure 131/60 05/26/2018 11:02 AM CDT Pulse 64 05/26/2018 11:02 AM CDT Temperature 37.1 ??C (98.8 ??F) 05/26/2018 8:20 AM CD T Respiratory Rate 18 05/26/2018 11:02 AM CDT Oxygen Saturation 98% 05/26/2018 10:27 AM CDT Inhaled Oxygen Concentration - - [...] intravenous Continuous Maribel Rojas NP 30 mL/hrat 05/26/18823 30 mL/hr at 05/26/18823 Laboratory review: Chemistry [...] Brandt RN - 05/26/2018 8:11 AM CDT Phone Counselor Clinical Care Plan Name: Chio Orantes : 1950 Age: 67 y.o. Gender: female Room/Bed: [facility]* Admit: 05/26/2018 7:46 AM Plan of [...] Catheterization Workup and H&P - Maribel Rojas BANK REPRESENTATIVE - 05/23/2018 1:47 PM CDT PRE-CARDIAC CATHETERIZATION WORKUP Patient Name: Chio Orantes Patient Patient : 1950 Date of Procedure: 05/26/2018 ORDERING SUPERVISOR CURING ROOM: Surgeon(s): Judah Duggan MD Procedure(s): LEFT HEART CATHETERIZATION WITH CORONARY ANGIOGRAPHY AND WITH OR WITHOUT LEFT VENTRICULOGRAM [id number] Requested Diagnostic: [] Coronary Angiograms Only [x] [...] Yes [] No [] Contraindicated Indications for Phone Counselor visit (Select all that apply): [] ACS [...] ESRD [] Dialysis [] HD []PD: Prior MA: [] Yes [x] No If Yes, Most Recent MA Date: Tobacco Use History Smoking Status ??? [...] Yes, Newly Diagnosed: [] Yes [] No NYHS Class: [] Class I [] Class II [...] block IMPRESSION: 67yoF h/o angina, here for [facility] Clinical Frailty Scale: [] 1: Very Fit [...] and Assessment Completed by: Name: Maribel Rojas NP-C Date: 05/26/18 Time: 0845 documented in this encounter Plan of Treatment [...] Using the modified micropuncture technique a 6 Indonesian sheath was placed in the right femoral artery. ?? 3. Iliac angiography. ?? 4. Selective coronary artery using 6 Indonesian JL4 and 6 Indonesian JR4 diagnostic catheter. ?? 5. Left heart hemodynamics. ?? 6. Right femoral arteriotomy was closed with 6 Indonesian Angio-Seal device without complication RESULTS: - Hemodynamics [...] ??She will be started on a diuretic. us Judah Duggan MD CV CARDIAC CATH PROCEDURES Fin al Result * (ABNORMAL) CBC without differential (05/26/2018 9:35 AM CDT) [facility] WBC 5.1 3.8 - 9.9 K/cumm [facility] Hgb 12.5 11.9 - 15.5 g/dL [facility] Hct 39.2 35.6 - 45.5 % [facility] Plt 247 150 - 400 K/cumm [facility] MPV 9.6 9.1 - 12.3 fL [facility] RBC 4.48 3.90 - 5.20 M/cumm [facility] MCV 87.5 81.3 - 96.4 fL [facility] MCH 27.9 27.1 - 33.3 pg [facility] MCHC 31.9(L) 32.3 - 35.7 g/dL [facility] RDW CV 15.1(H) 11.1 - 14.9 % [facility] RDW SD 48.0 35.7 - 48.1 fL [facility] NRBC abs 0.00 0.00 - 0.01 K/cumm [facility] Blood specimen (specimen) 05/26/2018 9:35 AM CDT 05/26/2018 9:55 AM CDT Narrative [facility] - 05/26/2018 10:13 AM CDT To be drawn after hydration bolus complete us Maribel Patricio BANK REPRESENTATIVE LAB BLOOD ORDERABLES Final Re sult [facility] [place] [address] * ECG 12 lead (05/26/2018 8:11 AM CDT) [facility] Ventricular Rate EKG/Min 69 BPM [facility] Atrial Rate [address] [facility] AR-Interval (MSEC) [address] [facility] QRS-Interval (MSEC) [address] [facility] QT-Interval (MSEC) 410 ms [facility] QTc 439 ms [facility] [place] 59 degrees [facility] R [place] -24 degrees [facility] T [place] 39 degrees [facility] Diagnosis Sinus rhythm with 1st degree A-V block Otherwise normal ECG No previous ECGs available This ECG was personally interpreted by the attending physician indicated below Confirmed by MARINE OLIVA M.D ([id number]) on 05/27/2018 2:12:39 PM [facility] 05/26/2018 8:11 AM CDT 05/27/2018 2:12 PM CDT us Maribel Patricio NP ECG ORDERABLES Final Result [facility] documented in this encounter Visit Diagnoses Not on filedocumented in this encounter Administered Medications Inactive Administered Medications - up to 3 most recent administrations Medication Order MAR Action Action Date Dose Rate Site aspirin chewable tablet 81 mg 81 mg, oral, Once, On Sat05/26/18 at 0930, For 1 dose, Pre-Procedure (CV) Given 05/26/2018 9:09 AM CDT 81 mg fentaNYL (SUBLIMAZE) preservative free injection As needed, Starting on Sat05/26/18 at 0919, Intra-Procedure (CV) Given 05/26/2018 9:19 AM CDT 25 mcg ioversol (OPTIRAY 350) injection As needed, Starting on Sat05/26/18 at 0944, Intra-Procedure (CV) Given 05/26/2018 9:44 AM CDT 50 mL lidocaine (XYLOCAINE) 10 mg/mL (1 %) injection As needed, Starting on Sat05/26/18 at 0933, Intra-Procedure (CV), Indications: Administration of Local AnesthesiaIndications:Adm inistration of Local Anesthesia Given 05/26/2018 9:31 AM CDT 10 mL Right Groin midazolam (VERSED) preservative free injection As needed, Starting on Sat05/26/18 at 0919, Intra-Procedure (CV) Given 05/26/2018 9:19 AM CDT 1 mg niCARdipine (CARDENE) 1 mg in 10 mL sodium chloride 0.9% (premix) As needed, Starting on Sat05/26/18 at 0939, Intra-Procedure (CV) Given 05/26/2018 9:39 AM CDT 100 mcg nitroglycerin injection 100 mcg/mL D5W 10 mL vial As needed, Starting on Sat05/26/18 at 0939, Intra-Procedure (CV) Given 05/26/2018 9:39 AM CDT 100 mcg sodium chloride 0.9% bolus 204 mL 204 [...] before and after each use. , Indications: FlushingIndications:Flush ing sodium chloride 0.9% infusion 1 mL/kg/hr ? [...] (New Bag - Prov ider: Dyana Brandt RN)0944 (Stopped - Provider: Lauren Jaramillo RN) sodium chloride 0.9% infusion(Linked Group 1) 30 mL/hr, intravenous, Continuous, Starting on Sat05/26/18 at 1423, Pre-Op/Floor (CV) 0824 (New Bag - Prov ider: Dyana Brandt RN) PRN Medication Order 05/24/2018 05/25/2018 05/26/2018 fentaNYL (SUBLIMAZE) preservative free injection (CANCELED) As needed, Starting on Sat05/26/18 at 0919, Intra-Procedure (CV) 09 (Given - Provid er: Lauren Jaramillo RN) [...] Count Last Ordered Date First Ordered Date sodium chloride 0.9% flush 0.5-20 mL 05/04 Diet Count Last Ordered Date First Orde red Date ADULT DISCHARGE DIET 1 05/26/2018 Nursing Count Last Ordered Date First Orde red Date DISCHARGE INSTRUCTIONS 05/26/2018 CORE MEASURES Count Last Ordered Date First Ord ered Date REASON FOR NO VTE PROPHYLAXIS AT ADMISSION 05/26/2018 documented in this encounter Care Teams Nuclear Physics Teacher Relationship Specialty Start Date End Date Santiago Bueno MD [address] [facility] [address] [place] [address] PCP - General 11/30/16 06/09/20 [place] [address] [facility] [address] [place] [address] Rheumatology 07/15/17 documented as of this encounter
--- OUTSIDE RECORDS SUMMARY | 2024-08-29 10:23 | XMS_ITS | Encounter Summary ---
Author Organization [facility] Address [address] [place] [address] Phone Care Team Providers Care Thrill Performer Name Role Phone Santiago Bueno MD Primary Care Provider [phone] Gladis Song MD Unavailable Encounter Details Date Type Department Care Team (Late st Contact Info) Description 06/03/2018 Telephone [facility] Cardiology [address] [facility] [address] [place] [address] Judah Duggan MD [address] [place] [address] Social History Tobacco Use Types Packs/Day Years Used Date Smoking Tobacco: Never Smokeless Tobacco: Never Alcohol Use Standard Drinks/Week Comments Yes 0 (1 standard drink = 0.6 oz pur e alcohol) rare wine Comments No Sex and Gender Information Value Date Recorded Sex Assigned at Not on file 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 Lab order mailed to pt * Telephone Encounter - Dannielle Blackwood RN - 06/03/2018 3:36 PM CDT ----- Message from Judah Duggan MD sent at 06/03/2018 3:21 PM CDT ----- Please have her take 40 meq of potassium a day and check a BMP in 1 week. ----- Message ----- From: Dannielle Blackwood RN Sent: 06/03/2018 2:40 PM To: Judah Duggan MD ----- Message ----- From: Sabine Kraft Sent: 06/03/2018 2:38 PM To: Dannielle Blackwood RN documented in this encounter Plan of Treatment Not on file documented as of this encounter Visit Diagnoses Not on filedocumented in this encounter Care Teams Thrill Performer Relationship Specialty Start Date End Date Santiago Bueno MD [address] [facility] [address] [place] [address] PCP - General 11/30/16 06/09/20 [place] [address] [facility] [address] [place] [address] Rheumatology 07/15/17 documented as of this encounter
--- OUTSIDE RECORDS SUMMARY | 2024-08-29 10:23 | XMS_ITS | Encounter Summary ---
Author Organization [facility] Address [address] [place] [address] Phone Care Team Providers Care Nude Model Name Role Phone Santiago Bueno MD Primary Care Provider [phone] Gladis Song MD Unavailable Reason for Referral * Diagnostic Imaging (Routine) - Closed Specialty Diagnoses / Procedures Referred By Contac t Referred To Contact Diagnoses Congestive heart failure, unspecified HF chronicity, unspecified heart failure type (HCC) Procedures Transthoracic Echo Complete W Doppler/CF Judah Duggan MD Phone: tel: fax: [facility] (All Locations) Referral ID Status Reason Start Date Expiration Date Visits Re quested Visits Authorized [id number] Closed 05/26/2018 12/05/2019 1 1 Encounter Details Date Type Department Care Team (Late st Contact Info) Description 05/26/2018 Orders Only [facility] Cardiology [address] [facility] Advanced Medicine [address]th [place] [address] [place] [address] Judah Duggan MD [address] [place] [address] Congestive heart failure, unspecified HF chronicity, unspecified heart failure type (CMS/HCC) (Primary Dx) Social History Tobacco Use Types Packs/Day Years Used Date Smoking Tobacco: Never Smokeless Tobacco: Never Alcohol Use Standard Drinks/Week Comments Yes 0 (1 standard drink = 0.6 oz pur e alcohol) rare wine Comments Unknown Sex and Gender Information Value Date Recorded Sex Assigned at Not on file Legal Sex Female 12:11 AM PATROL AGENT Gender Identity Not on file Sexual Orientation Not on file Occupation Industry Job Start Date Job End Date Retired Not on file Not on file Not on file documented as of this encounter Ordered Prescriptions Prescription Sig Dispense Quantity Refills Last Filled Start Date End Date furosemide (LASIX) 20 mg tablet Take 1 tablet (20 mg total) by mouth daily. 30 tablet 11 05/26/2018 06/16/2019 documented in this encounter Plan of Treatment Not on file documented as of this encounter Results * TRANSTHORACIC ECHO (TTE) COMPLETE W DOPPLER/CF W CONTRAST (06/25/2018 2:32 PM CDT) Anatomical Region Laterality Modality Ultrasound 06/25/2018 1:30 PM CDT Narrative 06/25/2018 4:26 PM CDT Patient name: Chio Orantes Date of test: 06/25/2018 Type of test: TTE w/Doppler [facility] #: [id number] Date of : 1950 (F) Calender Supervisor: Claudia Richmond [facility] Referring Physician: JUDAH DUGGAN MD Contrast Agent: 1.1 ml Optison Administered, (1.9 ml wasted). Contrast Administered by: Kiya Dickey RN Supervised/Interpreted by: Tricia Madrid MD Diagnosis: Location: [facility] Reason for test: CHF MV [...] 2=Hypo 3=Akinetic 4=Dyskin./Aneurysm 0=Not visualized) Parasternal [place]:MAS=1 BAS=1 MP=1 BP=1 Parasternal [place]:MAS=1 MS=1 SD=1 MP=1 ML=1 MA=1 Apical 4 Chambers:=1 MS=1 BS=1 BL=1 SD=1 AL=1 Apical 2 Chambers:AI=1 SD=1 BI=1 BA=1 MA=1 AA=1 LV Global Longitudinal Strain: -17.1% ??(Normal <-19%) RV Global Longitudinal Strain: -22.6% ??(Normal <-19%) LV Function: Normal LV Ejection Fraction, ??(EF=54-74%) RV Function: Normal Septal Motion: Normal Pericardial Effusion: none seen Atrial Septum: Normal DOPPLER/COLOR FOLOW DOPPLER RESULTS: Diastolic Function: Impaired Relaxation Tricuspid Valve: mild TV regurgitation Pulmonic Valve: Mild NH AV Regurgitation: Mild AR AV Stenosis: no AV Area: ??cm2 AV Pressure Gradient (mmHg): Mean: 0, Peak:0 MV Regurgitation: Mild MR MV Stenosis: no MS MV Area: ??cm2 MV Pressure Gradient (mmHg): Mean: 0 MV ERO: ??cm Regurg. Vol.: ??ml/beat Regurg. Frac.: ??% PA Pressure: 27+3 mmHg DOPPLER/COLOR FOLOW DOPPLER COMMENTS: Mild AR, Mild MR, no , no MS, mild TV regurgitation, Mild NH. Diastolic function: Impaired Relaxation CONTRAST: 1.1 ml [...] Dulce By signing this report, the attending staff sonographer certifies that he or she has personally supervised and interpreted the echocardiogram and has reviewed and or edited and agrees with the written comments contained within the report. Procedure Note Tricia Cardona MD - 06/25/2018 Patient name: Chio Orantes Date of test: 06/25/2018 Type of test: TTE w/Doppler [facility] #: [id number] Date of : 1950 (F) Calender Supervisor: Claudia Richmond [facility] Referring Physician: JUDAH DUGGAN MD Contrast Agent: 1.1 ml Optison Administered, (1.9 ml wasted). Contrast Administered by: Kiya Dickey RN Supervised/Interpreted by: Tricia Cardona MD Diagnosis: Location: [facility] Reason for test: CHF MV [...] 2=Hypo 3=Akinetic 4=Dyskin./Aneurysm 0=Not visualized) Parasternal [place]:MAS=1 BAS=1 MP=1 BP=1 Parasternal [place]:MAS=1 MS=1 SD=1 MP=1 ML=1 MA=1 Apical 4 Chambers:=1 MS=1 BS=1 BL=1 SD=1 AL=1 Apical 2 Chambers:AI=1 SD=1 BI=1 BA=1 MA=1 AA=1 LV Global Longitudinal Strain: -17.1% (Normal <-19%) RV Global Longitudinal Strain: -22.6% (Normal <-19%) LV Function: Normal LV Ejection Fraction, (EF=54-74%) RV Function: Normal Septal Motion: Normal Pericardial Effusion: none seen Atrial Septum: Normal DOPPLER/COLOR FOLOW DOPPLER RESULTS: Diastolic Function: Impaired Relaxation Tricuspid Valve: mild TV regurgitation Pulmonic Valve: Mild NH AV Regurgitation: Mild AR AV Stenosis: no AV Area: cm2 AV Pressure Gradient (mmHg): Mean: 0, Peak:0 MV Regurgitation: Mild MR MV Stenosis: no MS MV Area: cm2 MV Pressure Gradient (mmHg): Mean: 0 MV ERO: cm Regurg. Vol.: ml/beat Regurg. Frac.: % PA Pressure: 27+3 mmHg DOPPLER/COLOR FOLOW DOPPLER COMMENTS: Mild AR, Mild MR, no , no MS, mild TV regurgitation, Mild NH. Diastolic function: Impaired Relaxation CONTRAST: 1.1 ml [...] MD By signing this report, the attending staff sonographer certifies that he or she has personally supervised and interpreted the echocardiogram and has reviewed and or edited and agrees with the written comments contained within the report. us Judah Duggan MD CV ECHO PROCEDURES Final Resul t documented in this encounter Visit Diagnoses Diagnosis Congestive heart failure, unspecified HF chronicity, unspecified heart failure type (HCC)- Primary Congestive heart failure, unspecified HF chronicity, unspecified heart failure type (HCC) documented in this encounter Care Teams Nude Model Relationship Specialty Start Date End Date Santiago Bueno MD [address] [place] [address] PCP - General 11/30/16 06/09/20 [place] [address] [facility] [address] [place] [address] Rheumatology 07/15/17 documented as of this encounter
--- OUTSIDE RECORDS SUMMARY | 2024-08-29 10:23 | XMS_ITS | Encounter Summary ---
Author Organization [facility] Address [address] [place] [address] Phone Care Team Providers Care Filling Machine Tender Name Role Phone Satniago Bueno MD Primary Care Provider [phone] Gladis Song MD Unavailable Encounter Details Date Type Department Care Team (Latest Contact Info) Description 06/03/2018 Orders Only [facility] Scanning, Provider Social History Tobacco Use Types Packs/Day Years Used Date Smoking Tobacco: Never Smokeless Tobacco: Never Alcohol Use Standard Drinks/Week Comments Yes 0 (1 standard drink = 0.6 oz pur e alcohol) rare wine Comments No Sex and Gender Information Value Date Recorded Sex Assigned at Not on file Legal Sex Female 12:11 AM MANAGEMENT ADVISOR Gender Identity Not on file Sexual Orientation Not on file Occupation Industry Job Start Date Job End Date Retired Not on file Not on file Not on file documented as of this encounter Plan of Treatment Not on file documented as of this encounter Procedures Procedure Name Priority Date/Time Associated Diagnosis Comments SCAN - LABS 06/03/2018 1:53 PM CDT documented in this encounter Results * SCAN - LABS (06/03/2018 1:53 PM CDT) us Provider Scanning Final Result documented in this encounter Visit Diagnoses Not on filedocumented in this encounter Care Teams Filling Machine Tender Relationship Specialty Start Date End Date Santiago Bueno MD [address] [place] [address] PCP - General 11/30/16 06/09/20 [place] [address] [facility] [address] [place] [address] Rheumatology 07/15/17 documented as of this encounter
--- OUTSIDE RECORDS SUMMARY | 2024-08-29 10:23 | XMS_ITS | Encounter Summary ---
Author Organization [facility] Address [address] [place] [address] Phone Care Team Providers Care Gym Manager Name Role Phone Santiago Bueno MD Primary Care Provider [phone] Gladis Song MD Unavailable Encounter Details Date Type Department Care Team (Late st Contact Info) Description 06/10/2018 Telephone [facility] Cardiology [address] [facility] Advanced Medicine 8th [place] [address] [place] [address] Judah Duggan MD [address] [place], [place] [id number] Social History Tobacco Use Types Packs/Day Years Used Date Smoking Tobacco: Never Smokeless Tobacco: Never Alcohol Use Standard Drinks/Week Comments Yes 0 (1 standard drink = 0.6 oz pur e alcohol) rare wine Comments No Sex and Gender Information Value Date Recorded Sex Assigned at Not on file 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 She told them you wanted her to have blood work done but they don't have order. documented in this encounter Plan of Treatment Not on file documented as of this encounter Visit Diagnoses Not on filedocumented in this encounter Care Teams Gym Manager Relationship Specialty Start Date End Date Santiago Bueno MD [address] [facility] [address] [place] [address] PCP - General 11/30/16 06/09/[address] [place] [address] [facility] [address] [place] [address] Rheumatology 07/15/17 documented as of this encounter
--- OUTSIDE RECORDS SUMMARY | 2024-08-29 10:23 | XMS_ITS | Encounter Summary ---
Author Organization [facility] Healthcare Address [address] [place] [address] Care Team Providers Care Marbleizing Machine Tender Name Role Phone Santiago Bueno MD Primary Care Provider [phone] Gladis Song MD Unavailable Reason for Visit * Reason Comments Wound Check Encounter Details Date Type Department Care Team (Late st Contact Info) Description 05/30/2018 1:30 AM CDT - 05/30/2018 10:05 AM CDT Emergency [facility] Emergency Department [address] [place] [id number] Gurwinder Zapata MD [address] [place] [id number] Lui Aleman MD [address] [place] [address] Multiple ecchymoses of thigh (Primary Dx); Coronary artery disease involving [place] coronary artery of [place] heart without angina pectoris; Heart failure with preserved ejection fraction ([facility]/HCC); Systemic lupus erythematosus, unspecified SLE type, unspecified organ involvement status ([facility]/HCC); Paroxysmal A-fib (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 Gender Identity Not on file Sexual Orientation Not on file Occupation Industry Job Start Date Job End Date Retired Not on file Not on file Not on file documented as of this encounter Last Filed Vital Signs Vital Sign Reading Time Taken Comments Blood Pressure 126/69 05/30/2018 9:45 AM CDT Pulse 78 05/29/2018 11:07 PM CDT Temperature 36.6 ??C (97.9 ??F) 05/29/2018 11:07 PM C DT Respiratory Rate 18 05/29/2018 11:07 PM CDT Oxygen Saturation 93% 05/30/2018 9:45 AM CDT Inhaled Oxygen Concentration - - Weight 72.6 kg (160 lb) 05/29/2018 11:07 PM CDT Height 152.4 cm (5') 05/29/2018 11:07 PM CDT Body Mass Index 31.25 05/29/2018 11:07 PM CDT documented in this encounter Discharge Instructions * Discharge Instructions* Maddi Barclay MD - 05/30/2018 9:40 AM CDT The bruise in your thigh should heal in the next few days. If the pain becomes worse, you see bleeding, or your leg becomes cold and painful, please call your doctor or return to the emergency department to be evaluated. * Attachments The following attachments cannot be sent through Care Everywhere. * Ecchymosis (AfterCare(R) Instructions(ER/ED)) (Belarusian) documented in this encounter Medications at Time [...] or self care documented in this encounter ED Notes * Lui Evangelista RN - 05/30/2018 6:45 AM CDT [facility]: [facility] Expected date: Expected time: Means of arrival: Comments: Lopez Hare RN 05/30/18 0645 * Ugo Curry MD - 05/30/2018 1:57 AM CDT HPI Chief Complaint Patient presents with ??? Wound Check HPI 67 y/o F PMH SLE, GERD, paroxysmal AFib on anticoagulation, CVA without residual deficit, mild CAD,hypertension HFpEF for right thigh bruising. Patient with left heart catheterization 4 days ago by Cardiology Ene showing less than 30% diffuse CAD and elevated LVEDP. Preprocedure hemoglobin 12.5was sent home same day. Has been on bedrest past 3 days into yesterday went walking to PCP appointment. S she noticed bruising on the anterior right thigh as well as some pain in the right hip with walking. Is on Eliquis which was held for the procedure and restarted the day following. Denies presyncope, palpitations, chest pain, right lower extremity numbness/weakness. Called residential sales consultant yesterd ay who recommended she come to the ED for reported ecchymoses. Also throughout the weekend CT urogram performed for history of microscopic hematuria. Consult lower lung lobes with nodules concerning for infectious etiology. rhinorrhea and nasal congestion as well. Started on azithromycin 2 days ago. Mild cough productive yellow sputum and shortness breath. Some Denies fevers chills, or chest pain. No recent lipid/was recently started on methotrexate in addition to Plaquenil. Patient History Patient Active Problem List Diagnosis Date Noted ??? Paroxysmal atrial fibrillation (CMS/HCC) 05/21/2018 Priority: High ??? Other hyperlipidemia 05/21/2018 Priority: High ??? History of ischemic stroke without residual deficits 05/21/2018 Priority: High ??? Chest pain due to myocardial ischemia 05/23/2018 ??? Benign paroxysmal positional vertigo of left ear 05/13/2018 ??? Cough 05/13/2018 ??? Asymptomatic microscopic hematuria 01/15/2018 ??? Obesity with body mass index 30 or greater 05/06/2017 Class: Chronic ??? BMI 32.0-32.9,adult 04/29/2017 ??? Therapeutic drug monitoring 04/24/2017 ??? Obstructive sleep apnea syndrome 08/01/2016 Class: Chronic ??? Bronchial asthma 07/17/2016 Class: Chronic ??? Osteoarthritis 07/17/2016 Class: Chronic ??? Restless legs 07/17/2016 Class: Chronic ??? Patent foramen ovale 04/13/2016 Class: Chronic ??? Asthma 07/12/2015 Class: Chronic ??? Late, effect, cerebrovascular disease 06/03/2015 Class: Chronic ??? Borderline diabetes mellitus 06/03/2015 Class: Chronic ??? Hypertension 05/04/2014 Class: Temporary ??? Systemic lupus erythematosus (CMS/HCC) 01/16/2014 Class: Chronic ??? Gastroesophageal reflux disease 01/16/2014 Class: Chronic ??? Osteopenia 01/16/2014 Class: Chronic ??? Anxiety state 01/16/2014 Class: Chronic ??? Tremor 01/29/2013 Class: Chronic Past Medical History: Diagnosis Date ??? Asthma ??? Cerebrovascular accident (CVA) (CMS/HCC) Stroke ??? Heart murmur ??? 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 Hyperlipidemia ??? Hypertension ??? Lupus Past Surgical History: Procedure Laterality Date ??? APPENDECTOMY ??? BILATERAL OOPHORECTOMY ??? SECTION ??? HYSTERECTOMY Family History Problem Relation Age of Onset [...] cardiac disorder - (Added by TW Conv) Social History Substance Use Topics ??? Smoking status: Never Smoker ??? Smokeless tobacco: Never Used ??? Alcohol use Yes Comment: rare wine Social History Social History Narrative ??? No narrative on file Review of Systems Review of Systems Constitutional: Negative for chills, fatigue, fever and unexpected weight change. HENT: Positive for congestion and rhinorrhea. Negative for sore throat. Eyes: Negative for visual disturbance. Respiratory: Positive for cough. Negative for shortness of breath. Cardiovascular: Negative for chest pain, palpitations and leg swelling. Gastrointestinal: Negative for abdominal pain, blood in stool, constipation, diarrhea, nausea and vomiting. Genitourinary: Negative for dysuria and frequency. Musculoskeletal: Negative for back pain and joint swelling. Skin: Negative for rash. Neurological: Negative for dizziness, weakness, light-headedness, numbness and headaches. Hematological: Negative for adenopathy. Bruises/bleeds easily. Physical Exam ED Triage Vitals [05/29/18 2307] Temp Pulse Resp BP SpO2 36.6 ??C (97.9 ??F) 78 18 134/71 94 % Temp src Heart Rate Source Patient Position BP Location FiO2 (%) Oral -- -- -- -- Physical Exam Constitutional: She is oriented to person, place, and time. She appears well- developed and well-nourished. HENT: Head: Normocephalic and atraumatic. Eyes: Conjunctivae are normal. Cardiovascular: Normal rate, regular rhythm, normal heart sounds and intact distal pulses. No murmur heard. 2+ palpable peripheral pulses. good cap refill distally. No tenderness at site of prior left heart catheterization and right groin. No palpable thrill. Pulmonary/Chest: Effort normal and breath sounds normal. No respiratory distress. She has no wheezes. She has no rales. Abdominal: Soft. Bowel sounds are normal. She exhibits no distension. There is no tenderness. Musculoskeletal: She exhibits no edema or tenderness. Neurological: She is alert and oriented to person, place, and time. No sensory deficit. Note decreased sensation or strength right lower extremity. No pain on right hip flexion. Skin: Skin is warm and dry. No rash noted. Scattered 5 X 3 cm ecchymosis right anterior thigh. No posterior thigh ecchymoses or lumbar. Psychiatric: She has a normal mood and affect. MDM MDM #R thigh ecchymosis Right anterior ecchymosis following left heart catheterization earlier this week inpatient on anticoagulation for paroxysmal AFib. Intact peripheral pulses, sensation, strength. No palpable thrill, unlikely aneurysm. No back or thigh ecchymosis posteriorly concerning for bleed. Informal ultrasound with possible fluid collection with no blood flood anterior to the femoral artery. - check coags and cbc. Resulted and normal - Discussed case with overnight cardiology coverage and decided to transfer patient to obs unit forthe night to have formal to rule out pseudoaneurysm Attending Summary of Care ED Course as of May 30 441 Time: 05/30 332 Comment: CBC and coags within normal limits By: Ugo Curry MD Time: 05/30 334 Comment: Bedside informal vascular ultrasound By: Ugo Curry MD Time: 05/30 440 Comment: Discussed with overnight cards and decided to transfer to obs for formal ultrasound in theAM By: Ugo Curry MD No diagnosis found. Ugo Curry MD Resident 05/30/18440 Cosigned by Gurwinder Zapata MD at 05/30/2018 4:55 AM CDT Associated attestation - Gurwinder Zapata MD - 05/30/2018 4:55 AM CDT I have seen and examined the patient on 05/29/2018 . I agree with the findings and plan of care as documented in the resident's note. 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 Some mild groin pain. On Eliquis for paroxysmal afib On exam mild swelling to R femoral area with +2 pulse, no thrill, femoral artery somewhat enlarged on exam and pulsating Pedal pulses are intact Abd Soft NT ND Plan for check PT/INR/PTT, Hgb Discuss obtaining femoral u/s to r/o pseudoaneurysm with cardiology * Blanca Tucker RN - 05/30/2018 1:30 AM CDT Bed: [id number] Expected date: Expected time: Means of arrival: Car Comments: Blanca Tucker RN 05/30/18 0130 * Millie Winchester RN - 05/29/2018 11:03 PM CDT Pt presents to ED with c/o new bruising today in R thigh below cardiac cath site in R groin on Friday 05/25. Pt denies swelling in RLE. Pt states today she did not feel well. Pt denies any trauma orinjury to R thigh. documented in this encounter Miscellaneous Notes * ED Re-evaluation Note - Maddi Barclay MD - 05/30/2018 7:08 AM CDT ED Re-evaluation TRANSITION OF CARE: I, Maddi Barclay MD, am taking signout and assuming care of this patient. I have reviewed all pertinent vital signs, allergies, and history available in the chart. Summary: 67 y.o. female PMH SLE, GERD, afib (anticoag), CVA, mild CAD, HTN, HFpEF, presenting with R thigh bruise after LHC 4d ago, eliquis restarted day after procedure. Now with small pseudoaneurysm on US. On azithromycin for URI. 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 Per radiology, too small to inject but may be able to apply pressure. Call back # for radiology at 7:30 is [phone] By: MD Maddi Barbosa MD Resident 05/30/18938 Cosigned by Lui Aleman MD at 05/30/2018 9:57 AM CDT * ED Procedure Note - Ranulfo Brito MD - 05/29/2018 11:17 PM CDTAssociated Order(s): ECG 12-LEAD Procedure ECG 12 lead Date/Time: 05/29/2018 11:17 PM Performed by: RANULFO BRITO Authorized by: MARIOLA JEAN Rate: ECG rate: 75 ECG rate assessment: normal Rhythm: Rhythm: sinus rhythm Ectopy: Ectopy: none QRS: QRS axis: Left QRS intervals: Normal Conduction: Conduction: normal ST segments: ST segments: Normal T waves: T waves: flattening Flattening: III, aVF, V5 and V6 Q waves: Q waves: III and aVF Previous ECG: Previous ECG: Compared to current Date of previous EC05/26/2018 Comparison ECG info: New lateral t wave flattening Similarity: Changes noted Interpretation: Interpretation: non-specific Recommended Follow-up: Recommended follow up: further workup in the ED Ranulfo Brito MD 05/29/18 2318 documented in this encounter Plan of Treatment Not on file documented as of this encounter Procedures Procedure Name Priority Date/Time Associated Diagnosis Comments US GROIN PSEUDO DUPLEX RIGHT ED 05/30/2018 6:41 AM CDT DIFFERENTIAL AUTO STAT 05/30/2018 2:3 9 AM CDT CBC WITH AUTO DIFFERENTIAL STAT 05/30/2018 2:39 AM CDT PROTIME-INR STAT 05/30/2018 2:39 AM CDT ECG 12-LEAD STAT 05/29/2018 11:17 PM CDT documented in this encounter Results * US Groin Pseudo Duplex Right (05/30/2018 6:41 AM CDT) Anatomical Region Laterality Modality Vascular Right Ultrasound 05/30/2018 7:12 AM CDT Impressions 05/30/2018 7:12 AM CDT 1. ??Subcentimeter pseudoaneurysm immediately adjacent to the distal common femoral artery and the right ??groin. ??The morphology of the neck and the size of the aneurysm are not appropriate to perform thrombin injection. ??This small pseudoaneurysm is very likely to thrombose spontaneously. Electronically signed by: Sukhdev Pierce M.D. Narrative 05/30/2018 7:12 AM CDT EXAMINATION: LIMITED RIGHT GROIN SONOGRAM AND DOPPLER HISTORY: ??Status post catheterization through right femoral artery. Swelling and prominent pulsation in the groin. ??Rule out pseudoaneurysm. COMPARISON: ??None FINDINGS: SONOGRAM: There is a 4 x 6 x 7 mm fluid collection located immediately anterior to the femoral artery just slightly above the bifurcation. ??No other fluid collections are identified. ??The soft tissues surrounding the femoral vessels appear normal. DOPPLER: Color Doppler and spectral analysis were used to evaluate the groin vessels. The distal external iliac and proximal femoral artery and vein show normal waveforms. ?? Blood flow is identified within the fluid collection described above, consistent with a small pseudoaneurysm. ??The neck is less than 1 mm in length and cannot be further evaluated. ??No other extravascular blood flow is identified. No extravascular tissue vibration is seen. ??There is no Doppler or hooper-scale evidence of a ??arteriovenous fistula. Procedure Note Sukhdev Pierce MD - 05/30/2018 EXAMINATION: LIMITED RIGHT GROIN SONOGRAM AND DOPPLER HISTORY: Status post catheterization through right femoral artery. Swelling and prominent pulsation in the groin. Rule out pseudoaneurysm. COMPARISON: None FINDINGS: SONOGRAM: There is a 4 x 6 x 7 mm fluid collection located immediately anterior to the femoral artery just slightly above the bifurcation. No other fluid collections are identified. The soft tissues surrounding the femoral vessels appear normal. DOPPLER: Color Doppler and spectral analysis were used to evaluate the groin vessels. The distal external iliac and proximal femoral artery and vein show normal waveforms. Blood flow is identified within the fluid collection described above, consistent with a small pseudoaneurysm. The neck is less than 1 mm in length and cannot be further evaluated. No other extravascular blood flow is identified. No extravascular tissue vibration is seen. There is no Doppler or hooper-scale evidence of a arteriovenous fistula. IMPRESSION: 1. Subcentimeter pseudoaneurysm immediately adjacent to the distal common femoral artery and the right groin. The morphology of the neck and the size of the aneurysm are not appropriate to perform thrombin injection. This small pseudoaneurysm is very likely to thrombose spontaneously. Electronically signed by: Sukhdev Pierce M.D. us Ugo Curry MD [facility] PROCEDURES Final Result * (ABNORMAL) Differential, auto (05/30/2018 2:39 AM CDT) Neutrophil abs 3.6 1.7 - 6.5 K/cumm [facility] Imm gran abs 0.0 0.0 - 0.1 K/cumm [facility] Lymphocyte abs 1.5 0.8 - 3.3 K/cumm [facility] Monocyte abs 1.0(H) 0.2 - 0.8 K/cumm [facility] Eosinophil abs 0.3 0.0 - 0.5 K/cumm [facility] Basophil abs 0.1 0.0 - 0.1 K/cumm [facility] Neutrophil pct 55.9 % [facility] Comment: Interpretive Data Percent cell count reference ranges are not reported, since discordance with absolute values may lead to misinterpretation of CBC data. Current Interpretive Data was last revised on 2017. Imm gran pct 0.3 % [facility] Comment: Interpretive Data Percent cell count reference ranges are not reported, since discordance with absolute values may lead to misinterpretation of CBC data. Current Interpretive Data was last revised on 2017. Lymphocyte pct 23.7 % [facility] Comment: Interpretive Data Percent cell count reference ranges are not reported, since discordance with absolute values may lead to misinterpretation of CBC data. Current Interpretive Data was last revised on 2017. Monocyte pct 14.8 % [facility] Comment: Interpretive Data Percent cell count reference ranges are not reported, since discordance with absolute values may lead to misinterpretation of CBC data. Current Interpretive Data was last revised on 2017. Eosinophil pct 4.4 % [facility] Comment: Interpretive Data Percent cell count reference ranges are not reported, since discordance with absolute values may lead to misinterpretation of CBC data. Current Interpretive Data was last revised on 2017. Basophil pct 0.9 % [facility] Comment: Interpretive Data Percent cell count reference ranges are not reported, since discordance with absolute values may lead to misinterpretation of CBC data. Current Interpretive Data was last revised on 2017. Blood specimen (specimen) 05/30/2018 2:39 AM CDT 05/30/2018 2:47 AM CDT Narrative [facility] - 05/30/2018 2:55 AM CDT us Ugo Curry MD LAB BLOOD ORDERABLES Final Res ult [facility] Department [place] [address] * Protime-INR (05/30/2018 2:39 AM CDT) PT 12.7 8.5 - 13.0 sec [facility] INR 1.10 0.80 - 1.21 [facility] Comment: Interpretive Data Inpatient therapeutic ranges* Atrial fibrillation ?2.0-3.0 INR Venous thrombo-embolism ?2.0-3.0 INR Bioprosthetic heart valve ?* Mechanical heart valve, bileaflet or tilting disk,aortic position ? 2.0-3.0 INR All other,or bileaflet or tilting disk, in mitral position ? 2.5-3.5 INR *See the pharmacy resource directory (PHRED) for an updated copy of the Tool Book at [email or web address] Current Interpretive Data was last revised 2011. Blood specimen (specimen) 05/30/2018 2:39 AM CDT 05/30/2018 2:44 AM CDT Narrative [facility] - 05/30/2018 3:07 AM CDT THE COLLECTION LOCATION IS [place] [address] Ugo Curyr MD LAB BLOOD ORDERABLES Final Res ult [facility] Department [place] [address] * (ABNORMAL) CBC with auto differential (05/30/2018 2:39 AM CDT) [facility] WBC 6.4 3.8 - 9.9 K/cumm [facility] Hgb 12.3 11.9 - 15.5 g/dL [facility] Hct 38.2 35.6 - 45.5 % [facility] Plt 214 150 - 400 K/cumm [facility] MPV 9.4 9.1 - 12.3 fL [facility] RBC 4.35 3.90 - 5.20 M/cumm [facility] MCV 87.8 81.3 - 96.4 fL [facility] MCH 28.3 27.1 - 33.3 pg [facility] MCHC 32.2(L) 32.3 - 35.7 g/dL [facility] RDW CV 15.2(H) 11.1 - 14.9 % [facility] RDW SD 48.4(H) 35.7 - 48.1 fL [facility] NRBC abs 0.00 0.00 - 0.01 K/cumm [facility] Blood specimen (specimen) 05/30/2018 2:39 AM CDT 05/30/2018 2:47 AM CDT Narrative [facility] - 05/30/2018 2:55 AM CDT THE COLLECTION LOCATION IS [place] [address] Ugo Curry MD LAB BLOOD ORDERABLES Final Res ult [facility] Department [place] [address] * ECG 12-LEAD (05/29/2018 11:17 PM CDT) Narrative [facility] - 05/29/2018 11:17 PM CDT Ranulfo Brito MD ? 05/29/2018 11:18 PM ECG 12 lead Date/Time: 05/29/2018 11:17 PM Performed by: RANULFO BRITO Authorized by: MARIOLA JEAN Rate: ??ECG rate: ??75 ??ECG rate assessment: normal ?? Rhythm: ??Rhythm: sinus rhythm ?? Ectopy: ??Ectopy: none ?? QRS: ??QRS axis: ??Left ??QRS intervals: ??Normal Conduction: ??Conduction: normal ?? ST segments: ??ST segments: ??Normal T waves: ??T waves: flattening ?Flattening: ??III, aVF, V5 and V6 Q waves: ??Q waves: ??III and aVF Previous ECG: ??Previous ECG: ??Compared to current ??Date of previous ECG: ??05/26/2018 ??Comparison ECG info: ??New lateral t wave flattening ??Similarity: ??Changes noted Interpretation: ??Interpretation: non-specific ?? Recommended Follow-up: ??Recommended follow up: further workup in the ED ?? Procedure Note Ranulfo Brito MD - 05/29/2018 11:17 PM CDT Procedure ECG 12 lead Date/Time: 05/29/2018 11:17 PM Performed by: RANULFO BRITO Authorized by: MARIOLA JEAN Rate: ECG rate: 75 ECG rate assessment: normal Rhythm: Rhythm: sinus rhythm Ectopy: Ectopy: none QRS: QRS axis: Left QRS intervals: Normal Conduction: Conduction: normal ST segments: ST segments: Normal T waves: T waves: flattening Flattening: III, aVF, V5 and V6 Q waves: Q waves: III and aVF Previous ECG: Previous ECG: Compared to current Date of previous EC05/26/2018 Comparison ECG info: New lateral t wave flattening Similarity: Changes noted Interpretation: Interpretation: non-specific Recommended Follow-up: Recommended follow up: further workup in the ED Ranulfo Brito MD 05/29/18 1587 Gurwinder Zapata MD ECG ORDERABLES Final Result Performing Organization Address City/State/ZIP Co nm Phone Number [facility] documented in this encounter Visit Diagnoses Diagnosis Multiple ecchymoses of thigh- Primary Coronary artery disease involving [place] coronary artery of [place] heart without angina pectoris Heart failure with preserved ejection fraction (CMS/HCC) (HCC) Systemic lupus erythematosus, unspecified SLE type, unspecified organ involvement status (HCC) Paroxysmal A-fib (CMS/HCC) (HCC) documented in this encounter Administered Medications Inactive Administered Medications - up to 3 most recent administrations Medication Order MAR Action Action Date Dose Rate Site calcium carbonate (TUMS) chewable tablet 500 mg 500 mg (200 mg of elemental calcium), oral, Once, On Sat05/30/18 at 0549, For 1 dose Given 05/30/2018 6:49 AM CDT 500 mg documented in this encounter Active and Recently Administered Medications Times are shown in CDT. Scheduled Medication Order 05/28/2018 05/29/2018 05/30/2018 calcium carbonate (TUMS) chewable tablet 500 mg (COMPLETED) 500 mg (200 mg of elemental calcium), oral, Once, On Sat05/30/18 at 0549, For 1 dose 0649 (Given - Provid er: Fatimah Haywood RN) documented in this encounter Orders Lab Orders Without Results Count Last Ordered D ate First Ordered Date POCT PARTIAL THROMBOPLASTIN TIME (PTT) 1 ADT Patient Update Count Last Ordered Date Firs t Ordered Date PLACE IN ED OBSERVATION 05/30/2018 documented in this encounter Care Teams Marbleizing Machine Tender Relationship Specialty Start Date End Date Santiago Bueno MD [address] [place] [address] PCP - General 11/30/16 06/09/20 [place] [address] [facility] [address] [place] [address] Rheumatology 07/15/17 documented as of this encounter
--- OUTSIDE RECORDS SUMMARY | 2024-08-29 10:24 | XMS_ITS | Encounter Summary ---
Author Organization [facility] Address [address] [place] [address] Phone Care Team Providers Care It Security Analyst Name Role Phone Santiago Bueno MD Primary Care Provider [phone] Gladis Song MD Unavailable Encounter Details Date Type Department Care Team (Late st Contact Info) Description 01/31/2018 Orders Only [facility] [address] [place] [address] [place] [address] [facility] [address] [place] [address] Social History Tobacco Use Types Packs/Day Years Used Date Smoking Tobacco: Never Smokeless Tobacco: Never Alcohol Use Standard Drinks/Week Comments No 0 (1 standard drink = 0.6 oz pur e alcohol) Comments Unknown Sex and Gender Information Value Date Recorded Sex Assigned at Not on file 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 Gender Identity Not on file Sexual Orientation Not on file Occupation Industry Job Start Date Job End Date Retired Not on file Not on file Not on file documented as of this encounter Plan of Treatment Not on file documented as of this encounter Procedures Procedure Name Priority Date/Time Associated Diagnosis Comments SCAN - LABS 01/31/2018 2:04 PM CDT documented in this encounter Results * SCAN - LABS (01/31/2018 2:04 PM CDT) Katy SHELDON Final Resul t documented in this encounter Visit Diagnoses Not on filedocumented in this encounter Care Teams It Security Analyst Relationship Specialty Start Date End Date Santiago Bueno MD [address] [place] [address] PCP - General 11/30/16 06/09/20 [place] [address] [facility] [address] [place] [address] Rheumatology 07/15/17 documented as of this encounter
--- OUTSIDE RECORDS SUMMARY | 2024-08-29 10:24 | XMS_ITS | Encounter Summary ---
Author Organization [facility] Address [address] [facility] [address] [place] [address] Care Team Providers Care Regional Trainer Name Role Phone Santiago Bueno MD Primary Care Provider [phone] Gladis Song MD Unavailable Silvia GrangerT Unavailable [phone] No, Physician Primary Care Provider [phone] Encounter Details Date Type Department Care Team (Late st Contact Info) Description 11/06/2017 Orders Only [facility] Health Information Management [address] [place] [address] Scanning, Provider Social History Tobacco Use Types Packs/Day Years Used Date Smoking Tobacco: Never Smokeless Tobacco: Never Alcohol Use Standard Drinks/Week Comments No 0 (1 standard drink = 0.6 oz pur e alcohol) PHQ-2 Answer Date Recorded PHQ-2 Score 0 04/24/2019 Comments Unknown Sex and Gender Information Value Date Recorded Sex Assigned at Not on file 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 Gender Identity Not on file Sexual Orientation Not on file Occupation Industry Job Start Date Job End Date Retired Not on file Not on file Not on file documented as of this encounter Plan of Treatment Not on file documented as of this encounter Procedures Procedure Name Priority Date/Time Associated Diagnosis Comments GI - RESULT 11/06/2017 8:17 AM MACHINE GREASER documented in this encounter Results * GI - RESULT (11/06/2017 8:17 AM MACHINE GREASER) Anatomical Region Laterality Modality Other us Provider Scanning Final Result documented in this encounter Visit Diagnoses Not on filedocumented in this encounter Care Teams Regional Trainer Relationship Specialty Start Date End Date Santiago Bueno MD [address] [place] [address] PCP - General 11/30/16 06/09/20 No, Physician PCP - General 06/10/20 10/30/20 [place] [address] [facility] [address] [place] [address] Rheumatology 07/15/17 Silvia Granger DPT [address] [facility] [address] [place] [address] Physical Therapist Physical Therapy 04/14/20 06/09/20 documented as of this encounter
--- OUTSIDE RECORDS SUMMARY | 2024-08-29 10:24 | XMS_ITS | Encounter Summary ---
Author Organization [facility] Address [address] [place] [address] Phone Care Team Providers Care Patient Account Liaison Name Role Phone Santiago Bueno MD Primary Care Provider [phone] Gladis Song MD Unavailable Silvia Granger DPJenna Unavailable [phone] No, Physician Primary Care Provider [phone] Encounter Details Date Type Department Care Team (Late st Contact Info) Description 11/26/2017 Orders Only [facility] [address] [facility] [address] [place] [address] [place] [address] [facility] [address] [place] [address] Social History Tobacco Use Types Packs/Day Years Used Date Smoking Tobacco: Never Smokeless Tobacco: Never Alcohol Use Standard Drinks/Week Comments No 0 (1 standard drink = 0.6 oz pur e alcohol) PHQ-2 Answer Date Recorded PHQ-2 Score 0 04/24/2019 Comments Unknown Sex and Gender Information Value Date Recorded Sex Assigned at Not on file 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 She does have some blood in her urine. Does she have a hx of kidney stones or has she had this looked into before? documented in this encounter Plan of Treatment Not on file documented as of this encounter Procedures Procedure Name Priority Date/Time Associated Diagnosis Comments SCAN - LABS 11/26/2017 12:17 PM CDT documented in this encounter Results * SCAN - LABS (11/26/2017 12:17 PM CDT) us Katy SHELDON Final Resul t documented in this encounter Visit Diagnoses Not on filedocumented in this encounter Care Teams Patient Account Liaison Relationship Specialty Start Date End Date Santiago Bueno MD [address] [facility] [address] [place] [address] PCP - General 11/30/16 06/09/20 No, Physician PCP - General 06/10/20 10/30/20 [place] [address] [facility] [address] [place] [address] Rheumatology 07/15/17 Silvia Granger DPT [address] [facility] [address] [place] [address] Physical Therapist Physical Therapy 04/14/20 06/09/20 documented as of this encounter
--- OUTSIDE RECORDS SUMMARY | 2024-08-29 10:24 | XMS_ITS | Encounter Summary ---
Author Organization [facility] Address [address] [place] [phone] Phone Care Team Providers Care Training Coordinator Name Role Phone Santiago Bueno MD Primary Care Provider [phone] Gladis Song MD Unavailable Silvia Granger DPJenna Unavailable [phone] No, Physician Primary Care Provider [phone] Encounter Details Date Type Department Care Team (Late st Contact Info) Description 11/27/2017 Orders Only [facility] [address] [facility] [address] [place] [address] [place] [address] [facility] [address] [place] [address] Social History Tobacco Use Types Packs/Day Years Used Date Smoking Tobacco: Never Smokeless Tobacco: Never Alcohol Use Standard Drinks/Week Comments No 0 (1 standard drink = 0.6 oz pur e alcohol) PHQ-2 Answer Date Recorded PHQ-2 Score 0 04/24/2019 Comments Unknown Sex and Gender Information Value Date Recorded Sex Assigned at Not on file 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 She can stay on mtx 6 tablets/week for now. documented in this encounter Plan of Treatment Not on file documented as of this encounter Procedures Procedure Name Priority Date/Time Associated Diagnosis Comments SCAN - LABS 11/27/2017 10:06 AM CDT documented in this encounter Results * SCAN - LABS (11/27/2017 10:06 AM CDT) us Katy SHELDON Final Resul t documented in this encounter Visit Diagnoses Not on filedocumented in this encounter Care Teams Training Coordinator Relationship Specialty Start Date End Date Santiago Bueno MD [address] [facility] [address] [place] [address] PCP - General 11/30/16 06/09/20 No, Physician PCP - General 06/10/20 10/30/20 [place] [address] [facility] [address] [place] [address] Rheumatology 07/15/17 [place] [address] [facility] [address] [place] [address] Physical Therapist Physical Therapy 04/14/20 06/09/20 documented as of this encounter
--- OUTSIDE RECORDS SUMMARY | 2024-08-29 10:24 | XMS_ITS | Encounter Summary ---
Author Organization [facility] Address [address] [place] [address] Phone Care Team Providers Care Medical Biller Coder Name Role Phone Santiago Bueno MD Primary Care Provider [phone] Gladis Song MD Unavailable Encounter Details Date Type Department Care Team (Late st Contact Info) Description 05/23/2018 Orders Only [facility] [address] 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 25 tablet 3 05/23/2018 4 documented in this encounter Plan of Treatment Not on file documented as of this encounter Visit Diagnoses Not on filedocumented in this encounter Care Teams Medical Biller Coder Relationship Specialty Start Date End Date Santiago Bueno MD [address] [place] [address] PCP - General 11/30/16 06/09/20 [place] [address] [facility] [address] [place] [address] Rheumatology 07/15/17 documented as of this encounter
--- OUTSIDE RECORDS SUMMARY | 2024-08-29 10:24 | XMS_ITS | Encounter Summary ---
Author Organization [facility] Address [address] [facility] [address] [place] [address] Care Team Providers Care Financial Report Service Sales Agent Name Role Phone Santiago Bueno MD Primary Care Provider [phone] Gladis Song MD Unavailable Silvia Granger DPT Unavailable [phone] No, Physician Primary Care Provider [phone] Encounter Details Date Type Department Care Team (Late st Contact Info) Description 11/20/2017 Orders Only [facility] Health Information Management [address] [place] [address] Scanning, Provider Social History Tobacco Use Types Packs/Day Years Used Date Smoking Tobacco: Never Smokeless Tobacco: Never Alcohol Use Standard Drinks/Week Comments No 0 (1 standard drink = 0.6 oz pur e alcohol) PHQ-2 Answer Date Recorded PHQ-2 Score 0 04/24/2019 Comments Unknown Sex and Gender Information Value Date Recorded Sex Assigned at Not on file 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 Gender Identity Not on file Sexual Orientation Not on file Occupation Industry Job Start Date Job End Date Retired Not on file Not on file Not on file documented as of this encounter Plan of Treatment Not on file documented as of this encounter Procedures Procedure Name Priority Date/Time Associated Diagnosis Comments SCAN - RADIOLOGY/IMAGING 11/20/2017 1:01 AM CDT CARDIOLOGY DOCUMENT SCAN 11/20/2017 1:01 AM CDT documented in this encounter Results * SCAN - RADIOLOGY/IMAGING (11/20/2017 1:01 AM CDT) Anatomical Region Laterality Modality Other us Provider Scanning Edited Result - Final * SCAN - CARDIOLOGY (11/20/2017 1:01 AM CDT) Anatomical Region Laterality Modality Other us Provider Scanning CV CARDIAC SERVICES PROCEDURES Final Result documented in this encounter Visit Diagnoses Not on filedocumented in this encounter Care Teams Financial Report Service Sales Agent Relationship Specialty Start Date End Date Santiago Bueno MD [address] [facility] [address] [place] [address] PCP - General 11/30/16 06/09/20 No, Physician PCP - General 06/10/20 10/30/20 [place] [address] [facility] [address] [place] [address] Rheumatology 07/15/17 Silvia Granger DPT [address] [facility] [address] [place] [address] Physical Therapist Physical Therapy 04/14/20 06/09/20 documented as of this encounter
--- OUTSIDE RECORDS SUMMARY | 2024-08-29 10:24 | XMS_ITS | Encounter Summary ---
Author Organization [facility] Address [address] [place] [phone] Phone Care Team Providers Care Shift Coordinator Name Role Phone Santiago Bueno MD Primary Care Provider [phone] Gladis Song MD Unavailable Reason for Visit * Reason Comments Lupus Encounter Details Date Type Department Care Team (Late st Contact Info) Description 02/26/2018 8:30 AM CDT Office Visit [facility] [address] [facility] [address] [place] [address] [place] [address] [facility] [address] [place] [address] Other forms of systemic lupus erythematosus, unspecified organ involvement status (CMS/HCC) (Primary Dx); MCC use of drug Social History Tobacco Use Types Packs/Day Years Used Date Smoking Tobacco: Never Smokeless Tobacco: Never Alcohol Use Standard Drinks/Week Comments No 0 (1 standard drink = 0.6 oz pur e alcohol) Comments Unknown Sex and Gender Information Value Date Recorded Sex Assigned at Not on file 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 Gender Identity Not on file Sexual Orientation Not on file Occupation Industry Job Start Date Job End Date Retired Not on file Not on file Not on file documented as of this encounter Last Filed Vital Signs Vital Sign Reading Time Taken Comments Blood Pressure 126/76 02/26/2018 8:20 AM CDT Pulse 74 02/26/2018 8:20 AM CDT Temperature - - Respiratory Rate - - Oxygen Saturation - - Inhaled Oxygen Concentration - - Weight 73.5 kg (162 lb) 02/26/2018 8:20 AM CDT Height - - Body Mass Index 31.64 11/15/2017 8:15 AM CDT documented in this encounter Progress Notes * Katy Prescott PA - 02/26/2018 8:30 AM CDT Subjective/Objective Patient ID: Chio Orantes is a 67 y.o. female. Chief Complaint Lupus Patient states that the heartburn is better. She thinks it is better because of certain foods and not the MtX. She is stiff this morning. She feels that she overdid it yesterday . She does feel thatthe MTX is helping. Her trigger finger is better too. Review of Systems Constitutional: Negative for activity change, fatigue and fever. HENT: Negative for mouth sores. Eyes: Negative for pain. Respiratory: Negative for shortness of breath and wheezing. Cardiovascular: Negative for chest pain. Gastrointestinal: Negative for abdominal pain. Musculoskeletal: Positive for arthralgias. Negative for joint swelling. Skin: Negative for rash. Vitals: Vitals: 02/26/18 0820 BP: 126/76 Pulse: 74 Physical Exam Constitutional: Patient is oriented to person, place, and time. Patient appears well-developed and well-nourished. HENT: Pupils equal, no mouth sores noted. Head: Normocephalic. Neck: Neck supple. Cardiovascular: Normal rate, regular rhythm and normal heart sounds. Pulmonary/Chest: Effort normal and breath sounds normal. Musculoskeletal: See CDAI. Neurological: She is alert and oriented to person, place, and time. Skin: Skin is warm and dry. Psychiatric: She has a normal mood and affect. Labs CBC, cmp were normal. DsDNA elevated 167. Assessment/Plan Diagnoses and all orders for this visit: Other forms of systemic lupus erythematosus, unspecified organ involvement status (CMS/HCC) (Primary) Assessment & Plan: Patient disease activity is moderate. Patient is to continue MTX 20 mg/week. Provided samples of otrexup 20 mg/week to help reduce this currently flare. Continue HCQ. Will check routine labs today. She is going to f/u with Dr. Bueno in regards to the blood in her urine. Orders: - ds DNA; Future - C3 complement; Future - C4 complement; Future - Erythrocyte sedimentation rate; Future - CRP (acute phase); Future - CBC with auto differential; Future - Urinalysis reflex to microscopic and culture Urine; Future - Comprehensive metabolic panel; Future - Protein / creatinine ratio, urine, random; Future MCC use of drug Assessment & Plan: Will continue to monitor the patient with routine labs. CXR normal 09/2017. Cosigned by Gladis Song MD at 02/27/2018 4:35 PM CDT documented in this encounter Miscellaneous Notes * Assessment & Plan Note - Katy Prescott PA - 02/26/2018 8:39 AM CDT Associated Problem(s): Therapeutic drug monitoring (Resolved 06/30/2019) Will continue to monitor the patient with routine labs. CXR normal 09/2017. * Assessment & Plan Note - Katy Prescott PA - 02/26/2018 8:37 AM CDT Associated Problem(s): Systemic lupus erythematosus (CMS/HCC) (HCC) Patient disease activity is moderate. Patient is to continue MTX 20 mg/week. Provided samples of otrexup 20 mg/week to help reduce this currently flare. Continue HCQ. Will check routine labs today. She is going to f/u with Dr. Bueno in regards to the blood in her urine. documented in this encounter Plan of Treatment Scheduled Orders Name Type Priority Associated Diagnoses Orde r Schedule ds DNA Lab Routine Other forms of systemic lupus erythematosus, unspecified organ involvement status (CMS/HCC) Expected: 02/26/2018, Expires: 02/26/2019 C3 complement Lab Routine Other forms of systemic lupus erythematosus, unspecified organ involvement status (CMS/HCC) Expected: 02/26/2018, Expires: 02/26/2019 C4 complement Lab Routine Other forms of systemic lupus erythematosus, unspecified organ involvement status (CMS/HCC) Expected: 02/26/2018, Expires: 02/26/2019 Erythrocyte sedimentation rate Lab Routine Other forms of systemic lupus erythematosus, unspecified organ involvement status (CMS/HCC) Expected: 02/26/2018, Expires: 02/26/2019 CRP (acute phase) Lab Routine Other forms of systemic lupus erythematosus, unspecified organ involvement status (CMS/HCC) Expected: 02/26/2018, Expires: 02/26/2019 CBC with auto differential Lab Routine Other forms of systemic lupus erythematosus, unspecified organ involvement status (CMS/HCC) Expected: 02/26/2018, Expires: 02/26/2019 Urinalysis reflex to microscopic and culture Urine Microbiology Routine Other forms of systemic lupus erythematosus, unspecified organ involvement status (CMS/HCC) Expected: 02/26/2018, Expires: 02/26/2019 Comprehensive metabolic panel Lab Routine Other forms of systemic lupus erythematosus, unspecified organ involvement status (CMS/HCC) Expected: 02/26/2018, Expires: 02/26/2019 Protein / creatinine ratio, urine, random Lab Routine Other forms of systemic lupus erythematosus, unspecified organ involvement status (CMS/HCC) Expected: 02/26/2018, Expires: 02/26/2019 documented as of this encounter Visit Diagnoses Diagnosis Other forms of systemic lupus erythematosus, unspecified organ involvement status (HCC)- Primary 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
--- OUTSIDE RECORDS SUMMARY | 2024-08-29 10:24 | XMS_ITS | Encounter Summary ---
Author Organization [facility] Healthcare Address [address] [place] [address] Care Team Providers Care Dental Laboratory Technician Apprentice Name Role Phone Santiago Bueno MD Primary Care Provider [phone] Gladis Song MD Unavailable Encounter Details Date Type Department Care Team (Late st Contact Info) Description 04/04/2018 Orders [place] [address] [place] [address] Microscopic hematuria (Primary Dx) Social History Tobacco Use Types Packs/Day Years Used Date Smoking Tobacco: Never Smokeless Tobacco: Never Alcohol Use Standard Drinks/Week Comments No 0 (1 standard drink = 0.6 oz pur e alcohol) Comments Unknown Sex and Gender Information Value Date Recorded Sex Assigned at Not on file 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 Gender Identity Not on file Sexual Orientation Not on file Occupation Industry Job Start Date Job End Date Retired Not on file Not on file Not on file documented as of this encounter Plan of Treatment Not on file documented as of this encounter Visit Diagnoses Diagnosis Microscopic hematuria- Primary documented in this encounter Care Teams Dental Laboratory Technician Apprentice Relationship Specialty Start Date End Date Santiago Bueno MD [address] [facility] [address] [place] [address] PCP - General 11/30/16 06/09/20 [place] [address] [facility] [address] [place] [id number] Rheumatology 07/15/17 documented as of this encounter
--- OUTSIDE RECORDS SUMMARY | 2024-08-29 10:24 | XMS_ITS | Encounter Summary ---
Author Organization [facility] Address [address] [place] [address] Care Team Providers Care Alfalfa Dehydrator Operator Name Role Phone Santiago Bueno MD Primary Care Provider [phone] Gladis Song MD Unavailable Reason for Referral * Diagnostic Imaging (Routine) - Closed Specialty Diagnoses / Procedures Referred By Valerie t Referred To Contact Radiology Diagnoses Other microscopic hematuria Procedures CT Urogram W 3D CT Abdomen Pelvis W WO Contrast Santiago Siddiqi MD Phone: tel: fax: [place] [address] [place] [address] Referral ID Status Reason Start Date Expiration Date Visits Re quested Visits Authorized [id number] Closed 04/04/2018 10/14/2019 1 1 Reason for Visit * Diagnostic Imaging (Routine) - Closed Specialty Diagnoses / Procedures Referred By Valerie t Referred To Contact Radiology Diagnoses Other microscopic hematuria Procedures CT Urogram W 3D CT Abdomen Pelvis W WO Contrast Santiago Siddiqi MD Phone: tel: fax: [place] [address] [place] [address] Referral ID Status Reason Start Date Expiration Date Visits Re quested Visits Authorized [id number] Closed 04/04/2018 10/14/2019 1 1 Encounter Details Date Type Department Care Team (Latest Contact Info) Description 05/07/2018 10:05 AM CDT - 05/07/2018 11:59 PM CDT Hospital Encounter [facility] [id number] [address] [place] [address] [place] [address] Other microscopic hematuria Discharge Disposition: Discharge to home or self care Social History Tobacco Use Types Packs/Day Years Used Date Smoking Tobacco: Never Smokeless Tobacco: Never Alcohol Use Standard Drinks/Week Comments No 0 (1 standard drink = 0.6 oz pur e alcohol) Comments Unknown Sex and Gender Information Value Date Recorded Sex Assigned at Not on file 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 9 atorvastatin (LIPITOR) 80 mg tablet Take 1 tablet (80 mg total) by mouth daily. 90 tablet 3 04/04/2018 9 fluticasone (FLOVENT HFA) 110 mcg/actuation inhaler Inhale 1 puff 2 (two) times a day. Rinse mouth with water after use to reduce aftertaste and incidence of candidiasis. Do not swallow. 1 g 2 10/22/2017 9 folic acid (FOLVITE) 1 mg tablet Take 1 tablet (1 mg total) by mouth daily. Take one tab daily 90 tablet 01/15/2018 8 hydroCHLOROthiaz dona (HYDRODIURIL) 25 mg tablet TAKE 1 TABLET EVERY DAY 90 tablet 1 11/18/2017 8 hydroxychloroqui ne (PLAQUENIL) 200 mg tablet TAKE 1 TABLET BY MOUTH TWICE A DAY 180 tablet 04/18/2018 8 methotrexate 2.5 mg tablet TAKE 8 TABLETS BY MOUTH ONCE A WEEK. 96 tablet 04/14/2018 8 methotrexate 25 mg/mL syringe Inject 0.6 mL (15 mg total) under the skin once a week. 8 mL 03/19/2018 1 metoprolol XL (TOPROL XL) 50 mg 24 hr tablet take 1 tablet by oral route every day 0 0 04/16/2016 8 montelukast (SINGULAIR) 10 mg tablet Take 1 tablet (10 mg total) by mouth nightly. 90 tablet 1 04/04/[address] (PROTONIX) 40 mg EC tablet [...] Name Priority Date/Time Associated Diagnosis Comments CT UROGRAM W 3D Schedule Routine, Read Routine (OP Routine) 05/07/2018 10:56 AM CDT Other microscopic hematuria POC ISTAT Routine 05/07/2018 10:39 AM CDT documented in this encounter Results * CT Urogram W 3D (05/07/2018 10:56 AM CDT) Anatomical Region Laterality Modality Body Computed Tomogra phy 05/07/2018 11:3 7 AM CDT Impressions 05/07/2018 2:18 PM CDT 1. ??No suspicious urinary tract lesion. 2. ??Left lung lower lobe tree-in-bud nodules suspicious for endobronchial spread of infection. Electronically signed by: Suresh Russell M.D. Narrative 05/07/2018 2:18 PM CDT EXAMINATION: 1. CT UROGRAPHY WITH AND WITHOUT CONTRAST 2. 3D RENDERING HISTORY: Microscopic hematuria without history of urinary tract infection, gross hematuria, nephrolithiasis, or genitourinary trauma. Negative cystoscopy in August 2011. TECHNIQUE: ??CT urography of the abdomen and pelvis was performed prior to and following the uneventful intravenous administration of 125 mL Optiray 350 in the combined nephrographic and excretory phases according to a split bolus protocol. Post-processed 3D images were generated on a dedicated workstation and also reviewed. COMPARISON: No prior studies were available for comparison. FINDINGS: UROGRAPHIC FINDINGS: Right Kidney: The right kidney measures 9.9 cm pole to pole. Multiple subcentimeter hypodense lesions are too small to accurately characterize but likely represent benign cysts. No calculi are seen. There is no hydronephrosis. The ureter is normal. The urothelium appears normal. Left Kidney: The left kidney measures 10.1 cm pole to pole. Multiple subcentimeter hypodense lesions are too small to accurately characterize but likely represent benign cysts. No calculi are seen. There is no hydronephrosis. The ureter is normal. The urothelium appears normal. Bladder: There is no wall thickening. No masses are seen. NON-UROGRAPHIC FINDINGS: There is bilateral lower lung mosaic ground glass attenuation and left lung lower lobe sub-4 mm pulmonary nodules. Liver, gallbladder, pancreas, spleen, and adrenals are normal. Bowel caliber is normal. ??Proximal colonic diverticulosis. ??No ascites or pneumoperitoneum. No aggressive osseous lesion. ??Severe L3-L4 degenerative disc disease. ??L5 left transverse process is hypertrophic with a lumbosacral assimilation joint. Procedure Note Suresh Russell MD - 05/07/2018 EXAMINATION: 1. CT UROGRAPHY WITH AND WITHOUT CONTRAST 2. 3D RENDERING HISTORY: Microscopic hematuria without history of urinary tract infection, gross hematuria, nephrolithiasis, or genitourinary trauma. Negative cystoscopy in August 2011. TECHNIQUE: CT urography of the abdomen and pelvis was performed prior to and following the uneventful intravenous administration of 125 mL Optiray 350 in the combined nephrographic and excretory phases according to a split bolus protocol. Post-processed 3D images were generated on a dedicated workstation and also reviewed. COMPARISON: No prior studies were available for comparison. FINDINGS: UROGRAPHIC FINDINGS: Right Kidney: The right kidney measures 9.9 cm pole to pole. Multiple subcentimeter hypodense lesions are too small to accurately characterize but likely represent benign cysts. No calculi are seen. There is no hydronephrosis. The ureter is normal. The urothelium appears normal. Left Kidney: The left kidney measures 10.1 cm pole to pole. Multiple subcentimeter hypodense lesions are too small to accurately characterize but likely represent benign cysts. No calculi are seen. There is no hydronephrosis. The ureter is normal. The urothelium appears normal. Bladder: There is no wall thickening. No masses are seen. NON-UROGRAPHIC FINDINGS: There is bilateral lower lung mosaic ground glass attenuation and left lung lower lobe sub-4 mm pulmonary nodules. Liver, gallbladder, pancreas, spleen, and adrenals are normal. Bowel caliber is normal. Proximal colonic diverticulosis. No ascites or pneumoperitoneum. No aggressive osseous lesion. Severe L3-L4 degenerative disc disease. L5 left transverse process is hypertrophic with a lumbosacral assimilation joint. IMPRESSION: 1. No suspicious urinary tract lesion. 2. Left lung lower lobe tree-in-bud nodules suspicious for endobronchial spread of infection. Electronically signed by: Suresh Russell M.D. Santiago Siddiqi MD IM CT PROCEDURES Final Resul t * POC ISTAT (05/07/2018 10:39 AM CDT) Creatinine, POC, bld 0.9 0.6 - 1.3 mg/dL ROSE MARIE ALLEN Comment: Interpretive data Creatinine <1.5 mg/dL and stable receive IV contrast. Creatinine 1.5-1.9 mg/dL and stable use Visipaque IV contrast. Current interpretive data last reviewed 2015. POC Device Number [id number] [facility] Performer [id number] ROSE MARIE SARABIA Blood specimen (specimen) 05/07/2018 10:39 AM CDT 05/07/2018 10:39 AM CDT Narrative ROSE MARIE SARABIACH - 05/07/2018 10:41 AM CDT us Santiago Siddiqi MD LAB BLOOD ORDERABLES Final Re sult ROSE MARIE WYNNW[facility] [address] [facility] Department [place] [address] documented in this encounter Visit Diagnoses Diagnosis Other microscopic hematuria documented in this encounter Administered Medications Inactive Administered Medications - up to 3 most recent administrations Medication Order MAR Action Action Date Dose Rate Site ioversol (OPTIRAY 350) syringe syringe 125 mL 125 mL, intravenous, Once in imaging, contrast, Starting on Sat05/07/18 at 1056, For 1 dose Given 05/07/2018 10:58 AM CDT 125 mL documented in this encounter Orders Medications Ordered That Tahir ht Not Have Been Administered Count Last Ordered Date First Ordered Date sodium chloride 0.9% flush 125 mL 1 018 documented in this encounter Care Teams Alfalfa Dehydrator Operator Relationship Specialty Start Date End Date Santiago Bueno MD [address] [facility] [address] [place] [address] PCP - General 11/30/16 06/09/20 [place] [address] [facility] [address] [place] [address] Rheumatology 07/15/17 documented as of this encounter
--- OUTSIDE RECORDS SUMMARY | 2024-08-29 10:24 | XMS_ITS | Encounter Summary ---
Author Organization [facility] Address [address] [place] [address] Care Team Providers Care Vice President Global Digital Marketing Name Role Phone Santiago Bueno MD Primary Care Provider [phone] Gladis Song MD Unavailable Reason for Visit * Diagnostic Imaging (Routine) - Closed Specialty Diagnoses / Procedures Referred By Valerie florian Referred To Contact Diagnoses Screening for breast cancer Procedures Screening Mammogram Bilateral W Elías Screening Mammogram 2D Bilateral Santiago Bueno MD Phone: tel: fax: [address] [place] [address] Referral ID Status Reason Start Date Expiration Date Visits Re quested Visits Authorized [id number] Closed 01/18/2018 07/17/2018 1 1 Encounter Details Date Type Department Care Team (Latest Contact Info) Description 02/20/2018 10:25 AM CDT - 02/20/2018 11:59 PM CDT Hospital Encounter [facility] [address] [place] [address] [address] [place] [address] Santiago Bueno MD [address] [place] [address] Screening for breast cancer Discharge Disposition: Discharge to home or self care Social History Tobacco Use Types Packs/Day Years Used Date Smoking Tobacco: Never Smokeless Tobacco: Never Alcohol Use Standard Drinks/Week Comments No 0 (1 standard drink = 0.6 oz pur e alcohol) Comments Unknown Sex and Gender Information Value Date Recorded Sex Assigned at Not on file 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 9 atorvastatin (LIPITOR) 80 mg tablet TAKE 1 TABLET EVERY DAY 30 3 05/02/2015 8 fluticasone (FLOVENT HFA) 110 mcg/actuation inhaler [...] BY MOUTH TWICE A DAY 180 tablet 01/20/2018 8 methotrexate 2.5 mg tablet Take 8 tablets (20 mg total) by mouth once a week. 96 tablet 01/15/2018 8 metoprolol XL (TOPROL XL) 50 mg 24 hr tablet take 1 tablet by oral route every day 0 0 04/16/2016 8 montelukast (SINGULAIR) 10 mg tablet Take 1 tablet (10 mg total) by mouth nightly. 30 tablet 5 01/31/[address] (PROTONIX) 40 mg EC tablet Take 1 tablet (40 mg total) by mouth daily. 30 tablet 11 10/21/2017 9 PARoxetine (PAXIL) 20 mg tablet Take 20 mg by mouth daily. 2 09/23/2017 8 VENTOLIN HFA 90 mcg/actuation inhaler INHALE 2 [...] ELÍAS Schedule Routine, Read Routine (OP Routine) 02/20/2018 10:55 AM CDT Screening for breast cancer documented in this encounter Results * Screening Mammogram Bilateral W Elías (02/20/2018 10:55 AM CDT) Anatomical Region Laterality Modality Breast Bilateral Mammography Narrative 02/21/2018 8:23 AM CDT Mammogram Technique: Bilateral Digital Breast Tomosynthesis, Bilateral C-view 2D Screening mammogram. ??Views obtained: ??bilateral craniocaudal and bilateral mediolateral oblique. ??Computer Aided Detection was performed. Mammogram Findings: The present examination has been compared to prior imaging studies performed at [facility] on 05/24/2014, 09/12/2015 and 02/11/2017. There are scattered areas of fibroglandular density. There is no suspicious abnormality in either breast. Annual screening mammography is recommended. OVERALL FINAL ASSESSMENT: BI-RADS CATEGORY 1: ??Negative. Procedure Note Tammie Pena MD - 02/21/2018 Mammogram Technique: Bilateral Digital Breast Tomosynthesis, Bilateral C-view 2D Screening mammogram. Views obtained: bilateral craniocaudal and bilateral mediolateral oblique. Computer Aided Detection was performed. Mammogram Findings: The present examination has been compared to prior imaging studies performed at [facility] on 05/24/2014, 09/12/2015 and 02/11/2017. There are scattered areas of fibroglandular density. There is no suspicious abnormality in either breast. Annual screening mammography is recommended. OVERALL FINAL ASSESSMENT: BI-RADS CATEGORY 1: Negative. us Santiago Bueno MD IMG MAMMO PROCEDURES Final Res ult documented in this encounter Visit Diagnoses Diagnosis Screening for breast cancer Breast screening, unspecified documented in this encounter Care Teams Vice President Global Digital Marketing Relationship Specialty Start Date End Date Santiago Bueno MD [address] [facility] [address] [place] [address] PCP - General 11/30/16 06/09/20 [place] [address] [facility] [address] [place] [address] Rheumatology 07/15/17 documented as of this encounter
--- OUTSIDE RECORDS SUMMARY | 2024-08-29 10:24 | XMS_ITS | Encounter Summary ---
Author Organization [facility] Address [address] [facility] [address] [place] [address] Care Team Providers Care Temporary Staff Accountant Name Role Phone Santiago Bueno MD Primary Care Provider [phone] Gladis Song MD Unavailable Reason for Visit * Reason Onset Date Comments Test Results 11/05/2017 egd Encounter Details Date Type Department Care Team (Late st Contact Info) Description 11/05/2017 [facility]phone [facility] [address] [facility] [address] [place] [id number] Santiago Guerrier MD [address] [facility] [address] [place] [address] Test Results (egd) Social History Tobacco Use Types Packs/Day Years Used Date Smoking Tobacco: Never Smokeless Tobacco: Never Alcohol Use Standard Drinks/Week Comments No 0 (1 standard drink = 0.6 oz pur e alcohol) Comments Unknown Sex and Gender Information Value Date Recorded Sex Assigned at Not on file 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 Recommended f/u for further evaluation with Dr Bueno or ST to schedule appt if continuing sx. RING MACHINE OPERATOR * Telephone Encounter - Christina Rosamax Daltonn - 11/05/2017 4:02 PM ARMORING MACHINE OPERATOR ----- Message from Santiago Guerrier MD sent at 11/05/2017 2:45 PM ARMORING MACHINE OPERATOR ----- Please notify the patient that the biopsies obtained at her recent upper endoscopy showed no significant abnormality and therefore no explanation for her symptoms. Regarding further evaluation of her symptoms, she should either follow-up with Dr. Bueno or here. RING MACHINE OPERATOR documented in this encounter Plan of Treatment Not on file documented as of this encounter Visit Diagnoses Not on filedocumented in this encounter Care Teams Temporary Staff Accountant Relationship Specialty Start Date End Date Santiago Bueno MD [address] [facility] [address] [place] [address] PCP - General 11/30/16 06/09/20 [place] [address] [facility] [address] [place] [address] Rheumatology 07/15/17 documented as of this encounter
--- OUTSIDE RECORDS SUMMARY | 2024-08-29 10:24 | XMS_ITS | Encounter Summary ---
Author Organization [facility] Address [address] [place] [phone] Phone Care Team Providers Care Forensic Document Examiner Name Role Phone Santiago Bueno MD Primary Care Provider [phone] Gladis Song MD Unavailable Silvia Granger DPJenna Unavailable [phone] No, Physician Primary Care Provider [phone] Encounter Details Date Type Department Care Team (Late st Contact Info) Description 12/11/2017 Orders Only [facility] [address] [facility] [address] [place] [address] [place] [address] [facility] [address] [place] [address] Social History Tobacco Use Types Packs/Day Years Used Date Smoking Tobacco: Never Smokeless Tobacco: Never Alcohol Use Standard Drinks/Week Comments No 0 (1 standard drink = 0.6 oz pur e alcohol) PHQ-2 Answer Date Recorded PHQ-2 Score 0 04/24/2019 Comments Unknown Sex and Gender Information Value Date Recorded Sex Assigned at Not on file 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 documented in this encounter Plan of Treatment Not on file documented as of this encounter Procedures Procedure Name Priority Date/Time Associated Diagnosis Comments SCAN - LABS 12/11/2017 11:18 AM CDT documented in this encounter Results * SCAN - LABS (12/11/2017 11:18 AM CDT) us Katy SHELDON Final Resul t documented in this encounter Visit Diagnoses Not on filedocumented in this encounter Care Teams Forensic Document Examiner Relationship Specialty Start Date End Date Santiago Bueno MD [address] [facility] [address] [place] [address] PCP - General 11/30/16 06/09/20 No, Physician PCP - General 06/10/20 10/30/20 [place] [address] [facility] [address] [place] [address] Rheumatology 07/15/17 Silvia Granger DPT [address] [facility] [address] [place] [address] Physical Therapist Physical Therapy 04/14/20 06/09/20 documented as of this encounter
--- OUTSIDE RECORDS SUMMARY | 2024-08-29 10:24 | XMS_ITS | Encounter Summary ---
Author Organization [facility] Address [address] [place] [address] Phone Care Team Providers Care Craps Dealer Name Role Phone Santiago Bueno MD Primary Care Provider Gladis Song MD Unavailable Reason for Visit * Cardiology (Routine) - Closed Specialty Diagnoses / Procedures Referred By Contac t Referred To Contact Cardiology Diagnoses Atherosclerotic heart disease of [place] coronary artery without angina pectoris Procedures RETURN Santiago Bueno MD Phone: tel: fax: Judah Duggan MD [address] [place] [address] Phone: tel: fax: Referral ID Status Reason Start Date Expiration Date Visits Re quested Visits Authorized [id number] Closed 05/23/2018 12/02/2019 3 3 Encounter Details Date Type Department Care Team (Late st Contact Info) Description 05/23/2018 9:30 AM CDT Office Visit [facility] [address] 8th [place] [address] [place] [address] Judah Duggan MD [address] [place] [address] Chest pain due to myocardial ischemia, unspecified ischemic chest pain type (Primary Dx); Patent foramen ovale; Paroxysmal atrial fibrillation (CMS/HCC); History of ischemic stroke without residual deficits; Essential hypertension; Other hyperlipidemia Social History Tobacco Use Types Packs/Day Years Used Date Smoking Tobacco: Never Smokeless Tobacco: Never Alcohol Use Standard Drinks/Week Comments Yes 0 (1 standard drink = 0.6 oz pur e alcohol) rare wine Comments Unknown Sex and Gender Information Value Date Recorded Sex Assigned at Not on file Legal Sex Female 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 Gender Identity Not on file Sexual Orientation Not on file Occupation Industry Job Start Date Job End Date Retired Not on file Not on file Not on file documented as of this encounter Last Filed Vital Signs Vital Sign Reading Time Taken Comments Blood Pressure 109/71 05/23/2018 9:34 AM CDT Pulse 69 05/23/2018 9:34 AM CDT Temperature 37.4 ??C (99.3 ??F) 05/23/2018 9:34 AM CD T Respiratory Rate - - Oxygen Saturation 94% 05/23/2018 9:34 AM CDT Inhaled Oxygen Concentration - - Weight 72.9 kg (160 lb 12.8 oz) 05/23/2018 9:34 AM CDT Height 152.4 cm (5') 05/23/2018 9:34 AM CDT Body Mass Index 31.4 05/23/2018 9:34 AM CDT documented in this encounter Patient Instructions * Patient Instructions* Dannielle Blackwood RN - 05/23/2018 9:30 AM CDT Heart catheterization May 26 Aspirin 81mg-take 2 today, then 1 daily thereafter. Stop eliquis documented in this encounter Progress Notes * Judah Duggan MD - 05/23/2018 9:30 AM CDT Patient Active Problem List Diagnosis ??? Systemic lupus erythematosus (CMS/HCC) ??? Gastroesophageal reflux disease ??? Tremor ??? Osteopenia ??? Asthma ??? Anxiety state ??? Hypertension ??? Therapeutic drug monitoring ??? BMI 32.0-32.9,adult ??? Late, effect, cerebrovascular disease ??? Borderline [...] of ischemic stroke without residual deficits ??? Chest pain due to myocardial ischemia INTERVAL HISTORY: Chio Orantes is a 67 y.o. female who returns to the [facility] with the above stated problems for routine follow up and risk factor modifications. She has had no recurrent strokes or TIAs since her last visit. However, she describes chest pain that are worrisome for unstable angina originally she thought that her pains were present in gastroesophageal reflux disease. She had extensive GI evaluation that was totally normal. She describes a fullness in her drawn when going up stairs. She notes nocturnal symptoms of chest fullness. She noted an episode the following evening that was prolonged and was finally relieved after burping this morning. She does keep her bed elevated over concerns of possible reflux however this is not helped her symptoms at all. She denies palpitations or lightheadedness. She does note dyspnea on some to jaw fullness when going upstairs. Prior to Admission medications Medication Sig Start Date End Date Taking? Authorizing Provider apixaban (ELIQUIS) 5 mg tablet 5 mg. Yes Historical Provider, atorvastatin (LIPITOR) 80 mg tablet Take 1 tablet (80 mg total) by mouth daily. 04/04/18 Yes Judah Duggan MD cholecalciferol (VITAMIN D3) 2,000 unit tablet take 1 by Oral route every day 11/30/14 Yes fluticasone (FLOVENT HFA) 110 mcg/actuation inhaler Inhale 1 puff 2 (two) times a day. Rinse mouth with water after use to reduce aftertaste and incidence of candidiasis. Do not swallow. 10/22/17 Yes Santiago Bueno MD folic acid (FOLVITE) 1 mg tablet Take 1 tablet (1 mg total) by mouth daily. Take one tab daily 05/14/18 05/14/19 Yes Gladis Song MD hydroCHLOROthiazide (HYDRODIURIL) 25 mg tablet TAKE 1 TABLET EVERY DAY 11/18/17 Yes Santiago Bueno MD hydroxychloroquine (PLAQUENIL) 200 mg tablet Take 1 tablet (200 mg total) by mouth 2 (two) times a day. 05/14/18 Yes Gladis Song MD methotrexate 25 mg/mL syringe Inject 0.6 mL (15 mg total) under the skin once a week. 03/19/18 Yes Gladis Song MD metoprolol XL (TOPROL XL) 50 mg 24 hr tablet take 1 tablet by oral route every day 04/16/16 Yes Santiago Bueno MD montelukast (SINGULAIR) 10 mg tablet Take 1 tablet (10 mg total) by mouth nightly. 04/04/18 Yes DavidJ. Myles MD pantoprazole DR (PROTONIX) 40 mg EC tablet Take 1 tablet (40 mg total) by mouth daily. 10/21/17 10/21/18 Yes Jessy Castellon NP PARoxetine (PAXIL) 20 mg tablet Take 1 tablet (20 mg total) by mouth daily. 04/04/18 Yes Santiago Bueno MD syringe with needle 1 mL 28 gauge x 1/2 syringe Use to inject 0.6ml of methotrexate once weekly 03/19/18 Yes Gladis Song MD VENTOLIN HFA 90 mcg/actuation inhaler INHALE 2 PUFFS EVERY 4-6 HOURS NEEDED 10/23/17 Yes Santiago Warren MD aspirin 81 mg tablet Take 81 mg by mouth daily. Take 2 tabs today, then one tablet daily MD Tarun PHYSICAL EXAM: BP 109/71 Pulse 69 Temp 37.4 ??C (99.3 ??F) Ht 152.4 cm (5') Wt 72.9 kg (160 lb 12.8 oz) SpO2 94% BMI 31.40 kg/m?? Physical Exam Constitutional: She is oriented to person, place, and time. She appears well- developed and well-nourished. HENT: Head: Normocephalic and atraumatic. Eyes: Pupils are equal, round, and reactive to light. Neck: No JVD present. Carotid bruit is not present. Cardiovascular: Normal rate, regular rhythm, S1 normal, S2 normal, normal heart sounds and intact distal pulses. Exam reveals no gallop and no friction rub. No murmur heard. Pulmonary/Chest: Breath sounds normal. Abdominal: Soft. There is no tenderness. Musculoskeletal: She exhibits no edema. Neurological: She is alert and oriented to person, place, and time. Skin: Skin is warm. Psychiatric: She has a normal mood and affect. IMPRESSION/PLAN: Diagnoses and all orders for this visit: Chest pain due to myocardial ischemia, unspecified ischemic chest pain type (Primary) Assessment & Plan: The patient describes chest pain concerning for [...] for any chest pain relieved by nitroglycerin. Orders: - Basic metabolic panel; Future - Troponin I; Future - ECG 12 lead; Future Patent foramen ovale Assessment & Plan: She has a ROPE score of 2. She has no indication for closing her PFO at this time. Will maintain Eliquis, her high-intensity statin blood pressure control for reduction in recurrent stroke Paroxysmal atrial fibrillation ([facility]) Assessment & Plan: Although this is not well documented, she does carry this diagnosis in her chart. 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 We will continue Eliquis. She has had no more strokes or taste and she has been on Eliquis. History of ischemic stroke without residual deficits Assessment & Plan: This is likely multifactorial. I am concerned that there is likely a component secondary to paroxysmal atrial fibrillation. Consequently, I believe we should maintain her Eliquis. We will also maintain her high-intensity statin and pursue good blood pressure control. She also likely has a componentsecondary to small- vessel disease Essential hypertension Assessment & Plan: Her blood pressure is well controlled I will continue her current medical regimen Other hyperlipidemia Assessment & Plan: Her lipids show excellent control. We will maintain her current dose of atorvastatin documented in this encounter Miscellaneous Notes * Assessment & Plan Note - Judah Duggan MD - 05/23/2018 10:05 AM CDT Associated Problem(s): Paroxysmal atrial fibrillation (CMS/HCC) (HCC) Although this is not well documented, she does carry this diagnosis in her chart. 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 We will continue Eliquis. She has had no more strokes or taste and she has been on Eliquis. * Assessment & Plan Note - Judah Duggan MD - 05/23/2018 10:02 AM CDT Associated Problem(s): History of arterial ischemic stroke This is likely multifactorial. I am concerned that there is likely a component secondary to paroxysmal atrial fibrillation. Consequently, I believe we should maintain her Eliquis. We will also maintain her high-intensity statin and pursue good blood pressure control. She also likely has a componentsecondary to small- vessel disease * Assessment & Plan Note - Judah Duggan MD - 05/23/2018 10:00 AM CDT Associated Problem(s): Other hyperlipidemia Her lipids show excellent control. We will maintain her current dose of atorvastatin * Assessment & Plan Note - Judah Duggan MD - 05/23/2018 9:58 AM CDT Associated Problem(s): Patent foramen ovale She has a ROPE score of 2. She has no indication for closing her PFO at this time. Will maintain Eliquis, her high-intensity statin blood pressure control for reduction in recurrent stroke * Assessment & Plan Note - Judah Duggan MD - 05/23/2018 9:57 AM CDT Associated Problem(s): Hypertension (Resolved 06/01/2019) Her blood pressure is well controlled I will continue her current medical regimen * Assessment & Plan Note - Judah Duggan MD - 05/23/2018 9:55 AM CDT Associated Problem(s): Chest pain due to myocardial ischemia (Resolved 11/21/2018) The patient describes chest pain concerning for [...] for any chest pain relieved by nitroglycerin. documented in this encounter Plan of Treatment Not on file documented as of this encounter Results * Troponin I (05/23/2018 1:38 PM CDT) Troponin I <0.03 0.00 - 0.03 ng/mL [facility] Comment: Interpretive Data: Normal plasma Troponin I [...] for Troponin assay. References: 1. Clin Chem 2013;[id number] 2. Journal of the [place] [employer] 2012;60:[id number] Current Interpretive Data Last Revised Date: 2018. Blood specimen (specimen) 05/23/2018 1:38 PM CDT 05/23/2018 1:50 PM CDT Narrative [facility] - 05/23/2018 2:26 PM CDT us Judah Duggan MD LAB BLOOD ORDERABLES Final Res ult [facility] [place] [address] * Basic metabolic panel (05/23/2018 10:20 AM CDT) Glucose 88 64 - 99 mg/dL [facility] Comment: NONFASTING GLUCOSE RANGE = 64-199 mg/dL FASTING GLUCOSE 64 - 99 = NORMAL FASTING GLUCOSE 100 - 125 = IMPAIRED FASTING GLUCOSE FASTING GLUCOSE >=126 = PROVISIONAL DIAGNOSIS OF DIABETES Potassium 4.3 3.3 - 5.1 mmol/L [facility] Creatinine 0.76 0.60 - 1.10 mg/dL [facility] BUN 17 7 - 23 mg/dL [facility] Sodium 140 135 - 145 mmol/L [facility] Chloride 100 95 - 107 mmol/L [facility] CO2 Content 29 21 - 29 mmol/L [facility] Calcium 9.8 8.6 - 10.3 mg/dL [facility] Blood specimen (specimen) 05/23/2018 10:20 AM CDT 05/23/2018 12:27 PM CDT us Judah Duggan MD LAB BLOOD ORDERABLES Final Res ult [facility] documented in this encounter Visit Diagnoses Diagnosis Chest pain due to myocardial ischemia, unspecified ischemic chest pain type- Primary Patent foramen ovale Ostium secundum type atrial septal defect Paroxysmal atrial fibrillation (CMS/HCC) (HCC) Atrial fibrillation History of ischemic stroke without residual deficits Essential hypertension Unspecified essential hypertension Other hyperlipidemia Chest pain due to myocardial ischemia, unspecified ischemic chest pain type documented in this encounter Care Teams Craps Dealer Relationship Specialty Start Date End Date Santiago Bueno MD [address] [place] [address] PCP - General 11/30/16 06/09/20 [place] [address] [facility] [address] [place] [address] Rheumatology 07/15/17 documented as of this encounter
--- OUTSIDE RECORDS SUMMARY | 2024-08-29 10:24 | XMS_ITS | Encounter Summary ---
Author Organization [facility] Address [address] [place] [address] Phone Care Team Providers Care Nuclear Process Engineer Name Role Phone Santiago Bueno MD Primary Care Provider [phone] Gladis Song MD Unavailable Reason for Visit * Reason Comments Lupus Encounter Details Date Type Department Care Team (Late st Contact Info) Description 01/15/2018 10:45 AM CDT Office Visit [facility] [address] [facility] [address] [place] [address] [place] [address] [facility] [address] [place] [address] Other forms of systemic lupus erythematosus, unspecified organ involvement status (CMS/HCC) (Primary Dx); 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; Asymptomatic microscopic hematuria Social History Tobacco Use Types Packs/Day Years Used Date Smoking Tobacco: Never Smokeless Tobacco: Never Alcohol Use Standard Drinks/Week Comments No 0 (1 standard drink = 0.6 oz pur e alcohol) Comments Unknown Sex and Gender Information Value Date Recorded Sex Assigned at Not on file 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 Gender Identity Not on file Sexual Orientation Not on file Occupation Industry Job Start Date Job End Date Retired Not on file Not on file Not on file documented as of this encounter Last Filed Vital Signs Vital Sign Reading Time Taken Comments Blood Pressure 126/74 01/15/2018 10:28 AM CDT Pulse 81 01/15/2018 10:28 AM CDT Temperature - - Respiratory Rate - - Oxygen Saturation - - Inhaled Oxygen Concentration - - Weight 74.8 kg (165 lb) 01/15/2018 10:28 AM CDT Height - - Body Mass Index 32.22 11/15/2017 8:15 AM CDT documented in this encounter Ordered Prescriptions Prescription Sig Dispense Quantity Refills Last Filled Start Date End Date methotrexate 2.5 mg tablet Take 8 tablets (20 mg total) by mouth once a week. 96 tablet 01/15/2018 8 folic acid (FOLVITE) 1 mg tablet Take 1 tablet (1 mg total) by mouth daily. Take one tab daily 90 tablet 01/15/2018 8 documented in this encounter Progress Notes * Katy Prescott PA - 01/15/2018 10:45 AM CDT Images from the original note were not included. Subjective/Objective Patient ID: Chio Orantes is a 67 y.o. female. Chief Complaint Lupus Patient states that she has been feeling ok but she has had terrible heartburn. Patient states thather joints feel fine. She has some swelling which isn't going away. Review of Systems Constitutional: Negative for activity change, fatigue and fever. HENT: Negative for mouth sores. Eyes: Negative for pain. Respiratory: Negative for shortness of breath and wheezing. Cardiovascular: Negative for chest pain. Gastrointestinal: Negative for abdominal pain. Musculoskeletal: Positive for arthralgias. Negative for joint swelling. Skin: Negative for rash. Vitals: Vitals: 01/15/18 1028 BP: 126/74 Pulse: 81 Physical Exam Constitutional: Patient is oriented to [...] has a normal mood and affect. Labs Lab Results Component Value Date WBC 6.7 07/29/2017 HGB 13.5 07/29/2017 HCT 41.4 07/29/2017 MCV 86.3 07/29/2017 Lab Results Component Value Date GLUCOSE 79 08/16/2017 CALCIUM 9.1 08/16/2017 SODIUM 140 08/16/2017 POTASSIUM 4.2 08/16/2017 CO2 29 08/16/2017 CHLORIDE 98 08/16/2017 BUNSER 17 08/16/2017 CREATININE 0.70 08/16/2017 Lab Results Component Value Date ALT 23 07/29/2017 AST 30 07/29/2017 ALKPHOS 82 07/29/2017 BILITOT 0.5 07/29/2017 Lab Results Component Value Date SEDRATE 6 07/29/2017 Lab Results Component Value Date CRP 0.4 07/29/2017 Recent u/s hand/wrist: Assessment/Plan Diagnoses and all orders for this visit: Other forms of systemic lupus erythematosus, unspecified organ involvement status ([facility]) (Primary) Assessment & Plan: Patient disease activity is moderate. Patient is to increase the MTX to 8 tablets/week. She is complaining of worsening heart burn. Gave her a sample of otrexup 20 mg to try this week. Instructed patient how to use the injection. If the heartburn lessens will prescribe vial and syringe methotrexate. Will check routine labs today. Orders: - ds DNA; Future - C3 complement; Future - C4 complement; Future - Erythrocyte sedimentation rate; Future - CRP (acute phase); Future - CBC with auto differential; Future - Urinalysis reflex to microscopic and culture Urine; Future - Comprehensive metabolic panel; Future - Protein / creatinine ratio, urine, random; Future intermediate use of drug Assessment & Plan: Will continue to monitor the patient with routine labs. CXR normal 09/2017. Asymptomatic microscopic hematuria Assessment & Plan: Patient is going to f/u with her urologist. Cosigned by Gladis Song MD at 01/15/2018 6:24 PM CDT documented in this encounter Miscellaneous Notes * Assessment & Plan Note - Katy Prescott PA - 01/15/2018 11:29 AM CDT Associated Problem(s): Asymptomatic microscopic hematuria (Resolved 06/01/2019) Patient is going to f/u with her urologist. * Assessment & Plan Note - Katy Prescott PA - 01/15/2018 11:27 AM CDT Associated Problem(s): Therapeutic drug monitoring (Resolved 06/30/2019) Will continue to monitor the patient with routine labs. CXR normal 09/2017. * Assessment & Plan Note - Katy Prescott PA - 01/15/2018 11:25 AM CDT Associated Problem(s): Systemic lupus erythematosus (CMS/HCC) ([facility]) Patient disease activity is moderate. Patient is to increase the MTX to 8 tablets/week. She is complaining of worsening heart burn. Gave her a sample of otrexup 20 mg to try this week. Instructed patient how to use the injection. If the heartburn lessens will prescribe vial and syringe methotrexate. Will check routine labs today. documented in this encounter Plan of Treatment Scheduled Orders Name Type Priority Associated Diagnoses Orde r Schedule ds DNA Lab Routine Other forms of systemic lupus erythematosus, unspecified organ involvement status (CMS/HCC) Expected: 01/15/2018, Expires: 01/15/2019 C3 complement Lab Routine Other forms of systemic lupus erythematosus, unspecified organ involvement status (CMS/HCC) Expected: 01/15/2018, Expires: 01/15/2019 C4 complement Lab Routine Other forms of systemic lupus erythematosus, unspecified organ involvement status (CMS/HCC) Expected: 01/15/2018, Expires: 01/15/2019 Erythrocyte sedimentation rate Lab Routine Other forms of systemic lupus erythematosus, unspecified organ involvement status (CMS/HCC) Expected: 01/15/2018, Expires: 01/15/2019 CRP (acute phase) Lab Routine Other forms of systemic lupus erythematosus, unspecified organ involvement status (CMS/HCC) Expected: 01/15/2018, Expires: 01/15/2019 CBC with auto differential Lab Routine Other forms of systemic lupus erythematosus, unspecified organ involvement status (CMS/HCC) Expected: 01/15/2018, Expires: 01/15/2019 Urinalysis reflex to microscopic and culture Urine Microbiology Routine Other forms of systemic lupus erythematosus, unspecified organ involvement status (CMS/HCC) Expected: 01/15/2018, Expires: 01/15/2019 Comprehensive metabolic panel Lab Routine Other forms of systemic lupus erythematosus, unspecified organ involvement status (CMS/HCC) Expected: 01/15/2018, Expires: 01/15/2019 Protein / creatinine ratio, urine, random Lab Routine Other forms of systemic lupus erythematosus, unspecified organ involvement status (CMS/HCC) Expected: 01/15/2018, Expires: 01/15/2019 documented as of this encounter Visit Diagnoses Diagnosis Other forms of systemic lupus erythematosus, unspecified organ involvement status (HCC)- Primary 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 Asymptomatic microscopic hematuria documented in this encounter Discontinued Medications Medication Sig Discontinue Reason Start Date End Da te folic acid (FOLVITE) 1 mg tablet Take 1 tablet (1 mg total) by mouth daily. Take one tab daily Reorder 11/21/2017 01/15/2018 methotrexate 2.5 mg tablet Take 6 tablets (15 mg total) by mouth once a week. Reorder 11/21/2017 01/15/2018 documented as of this encounter Care Teams Nuclear Process Engineer Relationship Specialty Start Date End Date Santiago Bueno MD [address] [place] [address] PCP - General 11/30/16 06/09/20 [place] [address] [place] [address] Rheumatology 07/15/17 documented as of this encounter
--- OUTSIDE RECORDS SUMMARY | 2024-08-29 10:24 | XMS_ITS | Encounter Summary ---
Author Organization [facility] Address [address] [facility] [address] [facility] [address] [place] [address] Care Team Providers Care Technical Training Instructor Name Role Phone Santiago Bueno MD Primary Care Provider [phone] Gladis Song MD Unavailable Reason for Visit * Reason Onset Date Comments Dr Bueno-Medical Question 12/20/2017 Encounter Details Date Type Department Care Team (Late st Contact Info) Description 12/20/2017 Telephone [facility] [address] [facility] [address] [place] [address] Santiago Bueno MD [address] [facility] [address] [place] [address] Dr Bueno-Medical Question Social History Tobacco Use Types Packs/Day Years Used Date Smoking Tobacco: Never Smokeless Tobacco: Never Alcohol Use Standard Drinks/Week Comments No 0 (1 standard drink = 0.6 oz pur e alcohol) Comments Unknown Sex and Gender Information Value Date Recorded Sex Assigned at Not on file 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 Bueno. Sooner. Dr. Bueno do you want to order an US of the gallbladder or refer to GI for EUS. * Telephone Encounter - Nirmala Alexander - 12/20/2017 8:57 AM CDT Patient calling to state that she saw her data reduction technician recently, and a urinalysis was performed and showed patient had blood in her urine. Postdoctoral Scientist inquired about whether or not patient had any kidney concerns. Patient also states that she is still having a lot of heart burn, despite taking the Pantoprazole. Patient states that she would like Dr Bueno to write an order for a gall bladder ultrasound. Patient is not currently in town but will arrive back on 01/08/2018, and requesting to beseen sooner than Dr Bueno's next availability of 01/30/2018 and states it is often difficult to getan appt with Dr Bueno and she has not been able to see him for quite some time. Please contact patient regarding an appt as well. Patient's contact number [phone] documented in this encounter Plan of Treatment Not on file documented as of this encounter Visit Diagnoses Not on filedocumented in this encounter Care Teams Technical Training Instructor Relationship Specialty Start Date End Date Santiago Bueno MD [address] [place] [address] PCP - General 11/30/16 06/09/20 [place] [address] [facility] [address] [place] [address] Rheumatology 07/15/17 documented as of this encounter
--- OUTSIDE RECORDS SUMMARY | 2024-08-29 10:24 | XMS_ITS | Encounter Summary ---
Author Organization [facility] Address [address] [place] [phone] Phone Care Team Providers Care Rug Cutter Helper Name Role Phone Santiago Bueno MD Primary Care Provider [phone] Gladis Song MD Unavailable Reason for Visit * Reason Onset Date Comments Otrexup Approval/High Copay 03/19/2018 Otre xup Approval/High Copay Encounter Details Date Type Department Care Team (Late st Contact Info) Description 03/19/2018 Telephone [facility] [id number] [place] [address] [address] [place] [address] Alisa Jones Otrexup Approval/High Copay (Otrexup Approval/High Copay) Social History Tobacco Use Types Packs/Day Years Used Date Smoking Tobacco: Never Smokeless Tobacco: Never Alcohol Use Standard Drinks/Week Comments No 0 (1 standard drink = 0.6 oz pur e alcohol) Comments Unknown Sex and Gender Information Value Date Recorded Sex Assigned at Not on file Legal Sex Female 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 Effective 01/31/2018-03/18/2019. Pt was notified and can't afford medication. Pt is ok with taking generic mtx. Sent to local pharmacy. documented in this encounter Plan of Treatment Not on file documented as of this encounter Visit Diagnoses Not on filedocumented in this encounter Care Teams Rug Cutter Helper Relationship Specialty Start Date End Date Santiago Bueno MD [address] [facility] [address] [place] [address] PCP - General 11/30/16 06/09/20 [place] [address] [facility] [address] [place] [address] Rheumatology 07/15/17 documented as of this encounter
--- OUTSIDE RECORDS SUMMARY | 2024-08-29 10:24 | XMS_ITS | Encounter Summary ---
Author Organization [facility] Address [address] [place] [phone] Phone Care Team Providers Care Automobile Body Worker Name Role Phone Santiago Bueno MD Primary Care Provider [phone] Gladis Song MD Unavailable Reason for Visit * Reason Onset Date Comments MTX Approval 03/20/2018 MTX Approval Encounter Details Date Type Department Care Team (Late st Contact Info) Description 03/20/2018 Telephone [facility] [address] [facility] [address] [place] [address] Ailsa Jones MTX Approval (MTX Approval) Social History Tobacco Use Types Packs/Day Years Used Date Smoking Tobacco: Never Smokeless Tobacco: Never Alcohol Use Standard Drinks/Week Comments No 0 (1 standard drink = 0.6 oz pur e alcohol) Comments Unknown Sex and Gender Information Value Date Recorded Sex Assigned at Not on file 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 Gender Identity Not on file Sexual Orientation Not on file Occupation Industry Job Start Date Job End Date Retired Not on file Not on file Not on file documented as of this encounter Miscellaneous Notes * Telephone Encounter - Alisa Jones - 03/20/2018 8:05 AM CDT MTX Approval effective 01/31/2018-03/18/2021 documented in this encounter Plan of Treatment Not on file documented as of this encounter Visit Diagnoses Not on filedocumented in this encounter Care Teams Automobile Body Worker Relationship Specialty Start Date End Date Santiago Bueno MD [address] [place] [address] PCP - General 11/30/16 06/09/20 [place] [address] [facility] [address] [place] [address] Rheumatology 07/15/17 documented as of this encounter
--- OUTSIDE RECORDS SUMMARY | 2024-08-29 10:24 | XMS_ITS | Encounter Summary ---
Author Organization [facility] Address [address] [place] [phone] Phone Care Team Providers Care Nuclear Weapons Specialist Name Role Phone Santiago Bueno MD Primary Care Provider [phone] Gladis Song MD Unavailable Reason for Visit * Reason Comments Joint Pain Encounter Details Date Type Department Care Team (Late st Contact Info) Description 11/21/2017 10:45 AM CDT Office Visit [facility] [address] [facility] [address] [place] [address] [place] [address] 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 Gender Identity Not on file Sexual Orientation Not on file Occupation Industry Job Start Date Job End Date Retired Not on file Not on file Not on file documented as of this encounter Last Filed Vital Signs Vital Sign Reading Time Taken Comments Blood Pressure 138/82 11/21/2017 11:04 AM CDT Pulse - - Temperature - - Respiratory Rate - - Oxygen Saturation - - Inhaled Oxygen Concentration - - Weight 72.6 kg (160 lb) 11/21/2017 11:04 AM CDT Height - - Body Mass Index 31.25 11/15/2017 8:15 AM CDT documented in this encounter Ordered Prescriptions Prescription Sig Dispense Quantity Refills Last Filled Start Date End Date methotrexate 2.5 mg tablet Take 6 tablets (15 mg total) by mouth once a week. 72 tablet 11/21/2017 8 folic acid (FOLVITE) 1 mg tablet Take 1 tablet (1 mg total) by mouth daily. Take one tab daily 90 tablet 11/21/2017 8 documented in this encounter Progress Notes * Katy Ball PA - 11/21/2017 10:45 AM CDT Images from the original note were not included. Subjective/Objective Patient ID: Chio Orantes is a 67 y.o. female. Chief Complaint Joint Pain Patient states that she did have an endoscopy and her PPI was changed. She was having problems withburning. The last couple days it has been ok. She saw route sales associate last week and was told everything looked ok. Review of Systems Constitutional: Negative for activity change, fatigue and fever. HENT: Negative for mouth sores. Eyes: Negative for pain. Respiratory: Negative for shortness of breath and wheezing. Cardiovascular: Negative for chest pain. Gastrointestinal: Negative for abdominal pain. Musculoskeletal: Positive for arthralgias. Negative for joint swelling. Skin: Negative for rash. Vitals: Vitals: 11/21/17 1104 BP: 138/82 Physical Exam Constitutional: Patient is oriented to [...] Results Component Value Date CRP 0.4 07/29/2017 Assessment/Plan Diagnoses and all orders for this visit: Other forms of systemic lupus erythematosus, unspecified organ involvement status (CMS/HCC) (Primary) Assessment & Plan: Patient disease activity is low. She does have synovitis on exam. She has only had two doses of the6 tablets/week. Will give her more time on this medication. If in the meantime she experiences worsening joint pain or swelling she is to call the office and we will increase the MTX to 8 tablet/week. She is to continue FA and HCQ. Will check routine labs today. Patient seen with Dr. Song. Orders: - ds DNA; Future - C3 complement; Future - C4 complement; Future - Erythrocyte sedimentation rate; Future - CRP (acute phase); Future - CBC with auto differential; Future - Urinalysis reflex to microscopic and culture; Future - Comprehensive metabolic panel; Future - Protein / creatinine ratio, urine, random; Future buttermaker use of drug Assessment & Plan: Will continue to monitor the patient with routine labs. CXR normal 09/2017. Other orders - folic acid (FOLVITE) 1 mg tablet; Take 1 tablet (1 mg total) by mouth daily. Take one tab daily - methotrexate 2.5 mg tablet; Take 6 tablets (15 mg total) by mouth once a week. Cosigned by Gladis Song MD at 11/24/2017 7:43 PM CDT documented in this encounter Miscellaneous Notes * Assessment & Plan Note - Katy Ball PA - 11/21/2017 11:16 AM CDT Associated Problem(s): Therapeutic drug monitoring (Resolved 06/30/2019) Will continue to monitor the patient with routine labs. CXR normal 09/2017. * Assessment & Plan Note - Katy Ball PA - 11/21/2017 11:12 AM CDT Associated Problem(s): Systemic lupus erythematosus (CMS/HCC) (HCC) Patient disease activity is low. She does have synovitis on exam. She has only had two doses of the6 tablets/week. Will give her more time on this medication. If in the meantime she experiences worsening joint pain or swelling she is to call the office and we will increase the MTX to 8 tablet/week. She is to continue FA and HCQ. Will check routine labs today. Patient seen with Dr. Song. documented in this encounter Plan of Treatment Scheduled Orders Name Type Priority Associated Diagnoses Orde r Schedule ds DNA Lab Routine Other forms of systemic lupus erythematosus, unspecified organ involvement status (CMS/HCC) Expected: 11/21/2017, Expires: 11/21/2018 C3 complement Lab Routine Other forms of systemic lupus erythematosus, unspecified organ involvement status (CMS/HCC) Expected: 11/21/2017, Expires: 11/21/2018 C4 complement Lab Routine Other forms of systemic lupus erythematosus, unspecified organ involvement status (CMS/HCC) Expected: 11/21/2017, Expires: 11/21/2018 Erythrocyte sedimentation rate Lab Routine Other forms of systemic lupus erythematosus, unspecified organ involvement status (CMS/HCC) Expected: 11/21/2017, Expires: 11/21/2018 CRP (acute phase) Lab Routine Other forms of systemic lupus erythematosus, unspecified organ involvement status (CMS/HCC) Expected: 11/21/2017, Expires: 11/21/2018 CBC with auto differential Lab Routine Other forms of systemic lupus erythematosus, unspecified organ involvement status (CMS/HCC) Expected: 11/21/2017, Expires: 11/21/2018 Urinalysis reflex to microscopic and culture Lab Routine Other forms of systemic lupus erythematosus, unspecified organ involvement status (CMS/HCC) Expected: 11/21/2017, Expires: 11/21/2018 Comprehensive metabolic panel Lab Routine Other forms of systemic lupus erythematosus, unspecified organ involvement status (CMS/HCC) Expected: 11/21/2017, Expires: 11/21/2018 Protein / creatinine ratio, urine, random Lab Routine Other forms of systemic lupus erythematosus, unspecified organ involvement status (CMS/HCC) Expected: 11/21/2017, Expires: 11/21/2018 documented as of this encounter Visit Diagnoses Diagnosis Other forms of systemic lupus erythematosus, unspecified organ involvement status (HCC)- Primary buttermaker use of drug documented in this encounter Discontinued Medications Medication Sig Discontinue Reason Start Date End Da te folic acid (FOLVITE) 1 mg tablet Take 1 tablet (1 mg total) by mouth daily. Take one tab daily Reorder 09/09/2017 11/21/2017 methotrexate 2.5 mg tablet TAKE 6 TABLETS BY MOUTH ONCE EVERY WEEK Reorder 10/17/2017 11/21/2017 documented as of this encounter Care Teams Nuclear Weapons Specialist Relationship Specialty Start Date End Date Santiago Bueno MD [address] [facility] [address] [place] [address] PCP - General 11/30/16 06/09/20 [place] [address] [facility] [address] [place] [address] Rheumatology 07/15/17 documented as of this encounter
--- OUTSIDE RECORDS SUMMARY | 2024-08-29 10:24 | XMS_ITS | Encounter Summary ---
Author Organization [facility] Address [address] [facility] [address] [place] [address] Care Team Providers Care Weather Analyst Name Role Phone Santiago Bueno MD Primary Care Provider [phone] Gladis Song MD Unavailable Encounter Details Date Type Department Care Team (Late st Contact Info) Description 10/24/2017 Orders Only [facility] [address] [facility] [address] [place] [phone] Sanitago Guerrier MD [address] [facility] [address] [place] [address] Gastroesophageal reflux disease without esophagitis (Primary Dx) Social History Tobacco Use Types Packs/Day Years Used Date Smoking Tobacco: Never Smokeless Tobacco: Never Alcohol Use Standard Drinks/Week Comments No 0 (1 standard drink = 0.6 oz pur e alcohol) Comments Unknown Sex and Gender Information Value Date Recorded Sex Assigned at Not on file 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 Sex Female 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 Gender Identity Not on file Sexual Orientation Not on file Occupation Industry Job Start Date Job End Date Retired Not on file Not on file Not on file documented as of this encounter Plan of Treatment Not on file documented as of this encounter Visit Diagnoses Diagnosis Gastroesophageal reflux disease without esophagitis- Primary Esophageal reflux documented in this encounter Care Teams Weather Analyst Relationship Specialty Start Date End Date Santiago Bueno MD [address] [place] [address] PCP - General 11/30/16 06/09/20 [place] [address] [facility] [address] [place] [address] Rheumatology 07/15/17 documented as of this encounter
--- OUTSIDE RECORDS SUMMARY | 2024-08-29 10:24 | XMS_ITS | Encounter Summary ---
Author Organization [facility] Address [address] [place] [phone] Phone Care Team Providers Care Chemistry Faculty Member Name Role Phone Santiago Bueno MD Primary Care Provider [phone] Gladis Song MD Unavailable Encounter Details Date Type Department Care Team (Late st Contact Info) Description 11/28/[address] [address] Frances Cook Social History Tobacco Use Types Packs/Day Years Used Date Smoking Tobacco: Never Smokeless Tobacco: Never Alcohol Use Standard Drinks/Week Comments No 0 (1 standard drink = 0.6 oz pur e alcohol) Comments Unknown Sex and Gender Information Value Date Recorded Sex Assigned at Not on file 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 She can stay on mtx 6 tablets/week for now. Lab order generated and order mailed. documented in this encounter Plan of Treatment Not on file documented as of this encounter Procedures Procedure Name Priority Date/Time Associated Diagnosis Comments HEPATIC FUNCTION PANEL Routine 11/28/2017 7:52 PM CDT Elevated liver enzymes documented in this encounter Results * Hepatic function panel (11/28/2017 7:52 PM CDT) Blood specimen (specimen) Katy [facility] BLOOD ORDERABLES Final Result EXTERNAL LAB documented in this encounter Visit Diagnoses Diagnosis Elevated liver enzymes- Primary Other nonspecific abnormal serum enzyme levels documented in this encounter Care Teams Chemistry Faculty Member Relationship Specialty Start Date End Date Santiago Bueno MD [address] [facility] [address] [place] [address] PCP - General 11/30/16 06/09/20 [place] [address] [facility] [address] [place] [address] Rheumatology 07/15/17 documented as of this encounter
--- OUTSIDE RECORDS SUMMARY | 2024-08-29 10:24 | XMS_ITS | Encounter Summary ---
Author Organization [facility] Address [address] [place] [phone] Phone Care Team Providers Care Scientific Publications Editor Name Role Phone Santiago Bueno MD Primary Care Provider [phone] Gladis Song MD Unavailable Reason for Visit * Reason Comments Lupus Encounter Details Date Type Department Care Team (Late st Contact Info) Description 05/22/2018 8:45 AM CDT Office Visit [facility] [address] [facility] [address] [place] [address] [place] [address] [facility] [address] [place] [address] 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 (CMS/HCC) (Primary Dx); Therapeutic drug monitoring; Cough Social History Tobacco Use Types Packs/Day Years Used Date Smoking Tobacco: Never Smokeless Tobacco: Never Alcohol Use Standard Drinks/Week Comments No 0 (1 standard drink = 0.6 oz pur e alcohol) Comments Unknown Sex and Gender Information Value Date Recorded Sex Assigned at Not on file 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 Gender Identity Not on file Sexual Orientation Not on file Occupation Industry Job Start Date Job End Date Retired Not on file Not on file Not on file documented as of this encounter Last Filed Vital Signs Vital Sign Reading Time Taken Comments Blood Pressure 126/74 05/22/2018 9:00 AM CDT Pulse 75 05/22/2018 9:00 AM CDT Temperature - - Respiratory Rate - - Oxygen Saturation - - Inhaled Oxygen Concentration - - Weight 73.5 kg (162 lb) 05/22/2018 9:00 AM CDT Height - - Body Mass Index 31.64 05/13/2018 9:11 AM CDT documented in this encounter Progress Notes * Gladis Song MD - 05/22/2018 8:45 AM CDT Images from the original note were not included. Subjective/Objective Patient ID: Chio Orantes is a 67 y.o. female. Chief Complaint Lupus Since her last visit she reports that she has an appt with cardiology tomorrow. She has had some GIissues and heartburn and is getting a GI work up along with a stress test to rule out cardiac issues Review of Systems Constitutional: Positive for fatigue. Negative for fever. Respiratory: Negative for chest tightness and shortness of breath. Gastrointestinal: Negative for abdominal pain. Musculoskeletal: Positive for arthralgias. Neurological: Negative for seizures. Psychiatric/Behavioral: Negative for hallucinations. Physical Exam Constitutional: She is oriented to person, place, and time. She appears well- developed and well-nourished. HENT: Head: Normocephalic and atraumatic. Right Ear: External ear normal. Left Ear: External ear normal. Eyes: Conjunctivae are normal. Right eye exhibits no discharge. Left eye exhibits no discharge. Cardiovascular: Normal rate and regular rhythm. Pulmonary/Chest: Effort normal and breath sounds normal. Neurological: She is alert and oriented to person, place, and time. Skin: Skin is warm and dry. Psychiatric: She has a normal mood and affect. Her behavior is normal. Judgment and thought contentnormal. Vitals reviewed. . Lab Results Component Value Date WBC 6.0 05/13/2018 HGB 13.6 05/13/2018 HCT 44.0 05/13/2018 MCV 91.7 05/13/2018 LABPLAT 257 05/13/2018 . Chemistry Component Value Date/Time SODIUM 142 05/13/2018 1011 SODIUM 138 07/29/2017 1250 POTASSIUM 4.0 05/13/2018 1011 POTASSIUM 4.1 07/29/2017 1250 CHLORIDE 99 05/13/2018 1011 CHLORIDE 100 07/29/2017 1250 CO2 29 05/13/2018 1011 CO2 34 (H) 07/29/2017 1250 BUNSER 18 05/13/2018 1011 BUNSER 18 07/29/2017 1250 CREATININE 0.80 05/13/2018 1011 CREATININE 0.73 07/29/2017 1250 GLUCOSE 88 05/13/2018 1011 GLUCOSE 94 07/29/2017 1250 Component Value Date/Time CALCIUM 9.3 05/13/2018 1011 CALCIUM 9.2 07/29/2017 1250 ALKPHOS 85 05/13/2018 1011 ALKPHOS 82 07/29/2017 1250 AST 34 05/13/2018 1011 AST 30 07/29/2017 1250 ALT 33 05/13/2018 1011 ALT 23 07/29/2017 1250 BILITOT 0.4 05/13/2018 1011 BILITOT 0.5 07/29/2017 1250 Study Result EXAMINATION: 1. CT UROGRAPHY WITH AND WITHOUT CONTRAST 2. 3D RENDERING IMPRESSION: ?? 1. No suspicious urinary tract lesion. 2. Left lung lower lobe tree-in-bud nodules suspicious for endobronchial spread of infection. ?? Assessment/Plan Diagnoses and all orders for this visit: 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 (CMS/[facility]) (M32.19) (Primary) Assessment & Plan: She is having a mild flare of the arthritis and at her last visit we had suggested that she switch to SQ mtx but she has not done this yet as she did not know how to give herself a SQ injection as the prefilled syringe was not approved by her insurance. I am giving her samples of Rasuvo and we willteach her how to give herself a SQ when she runs out of the samples. Her UA shows 1+ blood and she has an appt with urology. Therapeutic drug monitoring (Z51.81) Assessment & Plan: Will monitor labs Cough (R05) Assessment & Plan: While reviewing her CT urography I noted that she was found to have a suspious LLL tree in bud nodule which she was aware of but I've asked her to follow up with her pcp in regard to this for furtherevaluation. documented in this encounter Miscellaneous Notes * Assessment & Plan Note - Gladis Song MD - 05/22/2018 9:20 AM CDTAssociated Problem(s): Cough (Resolved 02/24/2019) While reviewing her CT urography I noted that she was found to have a suspious LLL tree in bud nodule which she was aware of but I've asked her to follow up with her pcp in regard to this for furtherevaluation. * Assessment & Plan Note - Gladis Song MD - 05/22/2018 9:11 AM CDTAssociated Problem(s): Systemic lupus erythematosus (CMS/HCC) (HCC) She is having a mild flare of the arthritis and at her last visit we had suggested that she switch to SQ mtx but she has not done this yet as she did not know how to give herself a SQ injection as the prefilled syringe was not approved by her insurance. I am giving her samples of Rasuvo and we willteach her how to give herself a SQ when she runs out of the samples. Her UA shows 1+ blood and she has an appt with urology. * Assessment & Plan Note - Gladis Song MD - 05/22/2018 9:10 AM CDTAssociated Problem(s): Therapeutic drug monitoring (Resolved 06/30/2019) Will monitor labs documented in this encounter Plan of Treatment Not on file documented as of this encounter Visit Diagnoses Diagnosis 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 (HCC)- Primary Therapeutic drug monitoring Encounter for therapeutic drug monitoring Cough documented in this encounter Care Teams Scientific Publications Editor Relationship Specialty Start Date End Date Santiago Bueno MD [address] [place] [address] PCP - General 11/30/16 06/09/20 [place] [id number] [facility] [address] [place] [id number] Rheumatology 07/15/17 documented as of this encounter
--- OUTSIDE RECORDS SUMMARY | 2024-08-29 10:24 | XMS_ITS | Encounter Summary ---
Author Organization [facility] Address [address] [place] [address] Phone Care Team Providers Care Stain Maker Name Role Phone Santiago Bueno MD Primary Care Provider [phone] Gladis Song MD Unavailable Silvia Granger DPT Unavailable [phone] No, Physician Primary Care Provider [phone] Santiago Bueno MD Primary Care Provider [phone] Gabriel Persaud MD Primary Care Provider Santiaog Bueno MD Primary Care Provider [phone] Thi Lugo MD Primary Care Provider [phone] Santiago Bueno MD Primary Care Provider [phone] Thi Lugo MD Primary Care Provider [phone] Emily Jordan MD Primary Care Provider [phone] Encounter Details Date Type Department Care Team (Late st Contact Info) Description 05/09/2018 Telephone [facility] Cardiology [address] [facility] 8th [place] [address] [place] [id number] Mark Carrington MD [address] [facility] [address] [place] [address] Social History Tobacco Use Types Packs/Day Years Used Date Smoking Tobacco: Never Smokeless Tobacco: Never Alcohol Use Standard Drinks/Week Comments No 0 (1 standard drink = 0.6 oz pur e alcohol) Comments Unknown Sex and Gender Information Value Date Recorded Sex Assigned at Not on file Legal Sex Female 12:11 AM [employer] Gender Identity Not on file Sexual Orientation Not on file Occupation Industry Job Start Date Job End Date Retired Not on file Not on file Not on file documented as of this encounter Plan of Treatment Not on file documented as of this encounter Visit Diagnoses Not on filedocumented in this encounter Care Teams Stain Maker Relationship Specialty Start Date End Date Santiago Bueno MD [address] [facility] [address] [place] [address] PCP - General 11/30/16 06/09/20 No, Physician PCP - General 06/10/20 10/30/20 Santiago Bueno MD [address] [facility] [address] [place] [address] PCP - General Internal Medicine 10/31/20 11/28/20 Gabriel Persaud MD [address] [place] [id number] PCP - General Family Medicine 11/29/20 12/01/20 Santiago Bueno MD [address] [facility] [address] [place] [address] PCP - General 12/02/20 10/12/21 Thi Lugo MD [address] [place] [address] [id number] PCP - General Family Medicine 10/13/21 10/17/21 Santiago Bueno MD [address] [facility] [address] [place] [address] PCP - General 10/18/21 02/18/22 Thi Lugo MD [address] [place] [id number] PCP - General Family Medicine 02/19/22 07/19/24 Emily Jordan MD [address] [place] [address] PCP - General Family Medicine 07/20/24 [place] [address] [facility] [address] [place] [address] Rheumatology 07/15/17 Silvia Granger DPT [address] [facility] [address] [place] [address] Physical Therapist Physical Therapy 04/14/20 06/09/20 documented as of this encounter
--- OUTSIDE RECORDS SUMMARY | 2024-08-29 10:24 | XMS_ITS | Encounter Summary ---
Author Organization [facility] Address [address] [address] Care Team Providers Care [employer] Sales Representative Name Role Phone Santiago Bueno MD Primary Care Provider [phone] Gladis Song MD Unavailable Reason for Referral * Diagnostic Imaging (Routine) - Closed Specialty Diagnoses / Procedures [facility] To Contact Diagnoses Cough Procedures XR Chest Pa Lateral 2 Vw Santiago Bueno MD Phone: tel: fax: [facility] [phone] Referral ID Status Reason Start Date Expiration Date Visits Re quested Visits Authorized [id number] Closed 05/13/2018 11/22/2019 1 1 * Diagnostic Imaging (Routine) - Closed Specialty Diagnoses / Procedures [facility]erred To Contact Radiology Diagnoses Osteopenia of multiple sites Procedures Dexa Axial Skeleton Bone Density 1 or 2 Site Santiago Bueno MD Phone: tel: fax: [facility] [phone] Referral ID Status Reason Start Date Expiration Date Visits Re quested Visits Authorized [id number] Closed 05/13/2018 11/22/2019 1 1 Reason for Visit * Reason Comments Medicare Wellness Encounter Details Date Type Department Care Team (Latest Contact Info) Description 05/13/2018 9:30 AM CDT Office Visit [facility] [address] [facility] [address] [place] [phone] Santiago Bueno MD [address] [place] [address] [address] [place] [address] Medicare annual wellness visit, subsequent (Primary Dx); Essential hypertension; 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 (CMS/HCC); Obesity with body mass index 30 or greater; Borderline diabetes mellitus; Late, effect, cerebrovascular disease; BMI 32.0-32.9,adult; Gastroesophageal reflux disease without esophagitis; Other forms of systemic lupus erythematosus, unspecified organ involvement status (CMS/HCC); Asymptomatic microscopic hematuria; Osteopenia of multiple sites; Benign paroxysmal positional vertigo of left ear; Cough Social History Tobacco Use Types Packs/Day Years Used Date Smoking Tobacco: Never Smokeless Tobacco: Never Alcohol Use Standard Drinks/Week Comments No 0 (1 standard drink = 0.6 oz pur e alcohol) Comments Unknown Sex and Gender Information Value Date Recorded Sex Assigned at Not on file 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 Gender Identity Not on file Sexual Orientation Not on file Occupation Industry Job Start Date Job End Date Retired Not on file Not on file Not on file documented as of this encounter Last Filed Vital Signs Vital Sign Reading Time Taken Comments Blood Pressure 120/82 05/13/2018 9:11 AM CDT Pulse 72 05/13/2018 9:11 AM CDT Temperature - - Respiratory Rate - - Oxygen Saturation 97% 05/13/2018 9:11 AM CDT Inhaled Oxygen Concentration - - Weight 74.4 kg (164 lb) 05/13/2018 9:11 AM CDT Height 152.4 cm (5') 05/13/2018 9:11 AM CDT Body Mass Index 32.03 05/13/2018 9:11 AM CDT documented in this encounter Progress Notes * Santiago Bueno MD - 05/13/2018 9:30 AM CDT Subjective/Objective Patient ID: Chio Orantes is a 67 y.o. female. Chief Complaint Medicare Wellness Patient filled out the Medicare Health Risk Assessment in its entirety, & we reviewed during the appointment, which was scanned into the chart. 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 Also: having vertigo intermittently for the last few months, particularly with changes in position sitting to lying or turning her head to the left, lasts only a minute or so. Also: cough x 3 months. Worse when eating and also having episodes at night that wake her up. No definite aspiration. GERD has been considered but she has had normal EGD in October and has had no relief from maximized PPI therapy. Review of Systems Constitutional: Negative for chills, [...] No distress. HENT: Head: Normocephalic and atraumatic. Mouth/Throat: Oropharynx is clear and moist. Eyes: Pupils are equal, round, and reactive to light. Conjunctivae and EOM are normal. Neck: Normal range of motion. Neck supple. No JVD present. No thyromegaly present. Cardiovascular: Normal rate and regular rhythm. Exam reveals no gallop and no friction rub. No murmur heard. Pulmonary/Chest: Effort normal and breath sounds normal. No respiratory distress. She has no wheezes. She has no rales. Abdominal: Soft. Bowel sounds are normal. She exhibits no distension and no mass. There is no tenderness. There is no guarding. Musculoskeletal: She exhibits no edema or tenderness. Lymphadenopathy: She has no cervical adenopathy. Neurological: She is alert and oriented to person, place, and time. She exhibits normal muscle tone. Coordination normal. Skin: Skin is warm and dry. Capillary refill takes less than 2 seconds. No rash noted. Psychiatric: She has a normal mood and affect. Her behavior is normal. Nursing note and vitals reviewed. Assessment/Plan Diagnoses and all orders for this visit: Medicare annual wellness visit, subsequent (Z00.00) (Primary) Essential hypertension (I10) Assessment & Plan: BP 120/82 (BP Location: Right arm, Patient Position: Sitting) Pulse 72 Ht 152.4 cm (5') Wt 74.4 kg (164 lb) SpO2 97% BMI 32.03 kg/m?? Controlled. Continue current medication for now. 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 Borderline diabetes mellitus (R73.03) Assessment & Plan: Get A1c with labs again today. Weight loss recommended. Orders: - Hemoglobin A1c; Future Late, effect, cerebrovascular disease (I69.90) Assessment & Plan: Minimal residual. BMI 32.0-32.9,adult (Z68.32) Assessment & Plan: BMI Follow-up includes: nutrition counseling, exercise counseling and education provided. Gastroesophageal reflux disease without esophagitis (K21.9) Assessment & Plan: Not certain this diagnosis is correct or whether it is responsible for any symptoms given her normal EGD and lack of response to PPI therapy. Seeing imaging aide next week to consider alternative explanations for heartburn . Other forms of systemic lupus erythematosus, unspecified organ involvement status (CMS/HCC) (M32.8) Assessment & Plan: Per Dr. Song. Asymptomatic microscopic hematuria (R31.21) Assessment & Plan: 3D CT urogram was negative. Seeing Dr. Siddiqi. Cystoscopy next? Osteopenia of multiple sites (M85.89) Assessment & Plan: Time to repeat DEXA (5 years) -- ordered. Orders: - Dexa Axial Skeleton Bone Density 1 or 2 Site; Future Benign paroxysmal positional vertigo of left ear (H81.12) Assessment & Plan: Discussed and handout provided with vertigo exercises and more detailed explanation of the condition. Cough (R05) Assessment & Plan: Given duration of symptoms, will get CXR. From PND? Orders: - XR Chest Pa Lateral 2 Vw; Future documented in this encounter Miscellaneous Notes * Assessment & Plan Note - Santiago Bueno MD - 05/13/2018 10:13 AM CDT Associated Problem(s): Asymptomatic microscopic hematuria (Resolved 06/01/2019) 3D CT urogram was negative. Seeing Dr. Siddiqi. Cystoscopy next? * Assessment & Plan Note - Santiago Bueno MD - 05/13/2018 10:12 AM CDT Associated Problem(s): Benign paroxysmal positional vertigo of left ear Discussed and handout provided with vertigo exercises and more detailed explanation of the condition. * Assessment & Plan Note - Santiago Bueno MD - 05/13/2018 10:12 AM CDT Associated Problem(s): Borderline diabetes mellitus Get A1c with labs again today. Weight loss recommended. * Assessment & Plan Note - Santiago Bueno MD - 05/13/2018 10:12 AM CDT Associated Problem(s): Hypertension (Resolved 06/01/2019) BP 120/82 (BP Location: Right arm, Patient Position: Sitting) Pulse 72 Ht 152.4 cm (5') Wt 74.4 kg (164 lb) SpO2 97% BMI 32.03 kg/m?? Controlled. Continue current medication for now. * Assessment & Plan Note - Santiago Bueno MD - 05/13/2018 10:11 AM CDT Associated Problem(s): Gastroesophageal reflux disease Not certain this diagnosis is correct or whether it is responsible for any symptoms given her normal EGD and lack of response to PPI therapy. Seeing imaging aide next week to consider alternative explanations for heartburn . * Assessment & Plan Note - Santiago Bueno MD - 05/13/2018 10:11 AM CDT Associated Problem(s): Late, effect, cerebrovascular disease Minimal residual. * Assessment & Plan Note - Santiago Bueno MD - 05/13/2018 10:11 AM CDT Associated Problem(s): Obesity with body mass index 30 or greater Weight loss encouraged. * Assessment & Plan Note - Santiago Bueno MD - 05/13/2018 10:10 AM CDT Associated Problem(s): Osteopenia Time to repeat DEXA (5 years) -- ordered. * Assessment & Plan Note - Santiago Bueno MD - 05/13/2018 10:10 AM CDT Associated Problem(s): Systemic lupus erythematosus (CMS/HCC) (HCC) Per Dr. Song. * Assessment & Plan Note - Santiago Bueno MD - 05/13/2018 10:09 AM CDT Associated Problem(s): Cough (Resolved 02/24/2019) Given duration of symptoms, will get CXR. From PND? * Assessment & Plan Note - Kel Kraus MA - 05/13/2018 9:15 AM CDT Associated Problem(s): BMI 28.0-28.9,adult BMI Follow-up includes: nutrition counseling, exercise counseling and education provided. documented in this encounter Plan of Treatment Not on file documented as of this encounter Procedures Procedure Name Priority Date/Time Associated Diagnosis Comments DEXA AXIAL SKELETON BONE DENSITY 1 OR MORE SITES Schedule Routine, Read Routine (OP Routine) 06/09/2018 11:34 AM CDT Osteopenia of multiple sites XR CHEST PA LATERAL 2 VIEWS Schedule Routine, Read Routine (OP Routine) 05/13/2018 11:04 AM CDT Cough EGFR Routine 05/13/2018 10:11 AM CDT Essential hypertension DIFFERENTIAL AUTO Routine 05/13/2018 10: 11 AM CDT Essential hypertension URINALYSIS AND REFLEX TO MICROSCOPIC Routine 05/13/2018 10:11 AM CDT Essential hypertension CBC WITH AUTO DIFFERENTIAL Routine 05/13/2018 10:11 AM CDT Essential hypertension URINALYSIS, MICROSCOPIC ONLY Routine 05/13/2018 10:11 AM CDT Essential hypertension TSH Routine 05/13/2018 10:11 AM CDT Essential hypertension HEMOGLOBIN A1C Routine 05/13/2018 10:11 AM CDT Borderline diabetes mellitus LIPID PANEL Routine 05/13/2018 10:11 AM CDT Essential hypertension COMPREHENSIVE METABOLIC PANEL Routine 05/13/2018 10:11 AM CDT Essential hypertension documented in this encounter Results * Dexa [...] by: Bashir Miller M.D. Santiago Bueno MD [facility] [place] DXA PROCEDURES Final Resul t * XR Chest Pa Lateral 2 Vw (05/13/2018 11:04 AM CDT) Anatomical Region Laterality Modality Body, Chest N/A Computed Radiogr aphy 05/13/2018 11:3 6 AM CDT Impressions 05/13/2018 11:36 AM CDT No acute disease. Electronically signed by: Laine Pierce M.D. Narrative 05/13/2018 11:36 AM CDT Examination: Chest 2 views HISTORY: Cough COMPARISON: None FINDINGS: The aorta is tortuous. The heart and mediastinum are unremarkable. ?? The lungs are clear. No pleural effusion or pneumothorax is seen. Procedure Note Laine Pierce MD - 05/13/2018 Examination: Chest 2 views HISTORY: Cough COMPARISON: None FINDINGS: The aorta is tortuous. The heart and mediastinum are unremarkable. The lungs are clear. No pleural effusion or pneumothorax is seen. IMPRESSION: No acute disease. Electronically signed by: Laine Pierce M.D. Santiago Bueno MD IM XR PROCEDURES Final Result * eGFR (05/13/2018 10:11 AM CDT) eGFR >60 mL/min/1.7 3 m2 ROSE [facility]IE ALLEN Comment: Interpretive Data Reference Interval Normal ?>/= 90 mL/min/1.73m2 Mildly decreased* ? 60 - 89 mL/min/1.73m2 Mildly to moderately decreased ?45 - 59 mL/min/1.73m2 Moderately to severely decreased ??30 - 44 mL/min/1.73m2 Severely decreased ?15 - 29 mL/min/1.73m2 Kidney Failure ?< 15 ??mL/min/1.73m2 *Relative to young adult level If -[place] multiply value by 1.16. Estimated glomerular filtration rate is determined by the CKD-EPI equation recommended by the National Kidney Foundation (KDIGO 2012 Clinical Practice Guideline for the Evaluation and Management of Chronic Kidney Disease. Kidney Intnl Suppl Sep 2012;3:1). The CKD-EPI equation should not be used for patients with unstable renal function and has not been validated in children and those over 70. Current interpretive data was last reviewed 2016. Blood specimen (specimen) 05/13/2018 10:11 AM CDT 05/13/2018 11:45 AM CDT Iram ALLEN - 05/13/2018 1:10 PM CDT Santiago Bueno MD LAB BLOOD ORDERABLES Final Res ult ENRIQUEJAIME TIANNACH [address] [facility]. [place] [address] * Urinalysis, microscopic only (05/13/2018 10:11 AM CDT) WBC, ur 0-5 0 - 5 /HPF ROSE MARIE ALLEN RBC, ur 0-5 0 - 5 /HPF [facility] ALL[facility] Urine 05/13/2018 10:1 1 AM CDT 05/13/2018 11:45 AM CDT Narrative ROSE MARIE ALLEN - 05/13/2018 1:14 PM CDT us Santiago Bueno MD LAB URINE ORDERABLES Final Res ult ROSE MARIE ALLEN [address] [facility]. Department [place] [address] * Differential, auto (05/13/2018 10:11 AM CDT) Neutrophil abs 3.2 1.7 - 6.5 K/cumm [facility] Imm gran abs 0.0 0.0 - 0.1 K/cumm [facility] Lymphocyte abs 1.6 0.8 - 3.3 K/cumm [facility] Monocyte abs 0.7 0.2 - 0.8 K/cumm [facility] Eosinophil abs 0.3 0.0 - 0.5 K/cumm [facility] Basophil abs 0.1 0.0 - 0.1 K/cumm [facility] Neutrophil pct 54.3 % [facility] Comment: Interpretive Data Percent cell count reference ranges are not reported, since discordance with absolute values may lead to misinterpretation of CBC data. Current Interpretive Data was last revised on 2017. Imm gran pct 0.2 % [facility] Comment: Interpretive Data Percent cell count reference ranges are not reported, since discordance with absolute values may lead to misinterpretation of CBC data. Current Interpretive Data was last revised on 2017. Lymphocyte pct 27.6 % [facility] Comment: Interpretive Data Percent cell count reference ranges are not reported, since discordance with absolute values may lead to misinterpretation of CBC data. Current Interpretive Data was last revised on 2017. Monocyte pct 11.4 % ROSE MARIE [facility] Comment: Interpretive Data Percent cell count reference ranges are not reported, since discordance with absolute values may lead to misinterpretation of CBC data. Current Interpretive Data was last revised on 2017. Eosinophil pct 5.5 % ROSE MARIE [facility] Comment: Interpretive Data Percent cell count reference ranges are not reported, since discordance with absolute values may lead to misinterpretation of CBC data. Current Interpretive Data was last revised on 2017. Basophil pct 1.0 % [facility] Comment: Interpretive Data Percent cell count reference ranges are not reported, since discordance with absolute values may lead to misinterpretation of CBC data. Current Interpretive Data was last revised on 2017. Blood specimen (specimen) 05/13/2018 10:11 AM CDT 05/13/2018 11:45 AM CDT Narrative ROSE MARIE [facility] - 05/13/2018 12:03 PM CDT us Santiago Bueno MD LAB BLOOD ORDERABLES Final Res ult ROSE MARIE ALLEN [address] [facility]. [place] [address] * (ABNORMAL) Urinalysis reflex to microscopic Urine (05/13/2018 10:11 AM CDT) Color, ur Yellow Yellow [facility] Clarity, ur Clear Clear [facility] Specific gravity, ur 1.020 1.010 - 1.025 [facility] pH, urine 6.0 [facility] Protein, ur ql Negative Negative [facility] Glucose, ur ql Negative Negative [facility] Ketones, ur Negative Negative [facility] Bilirubin, ur Negative Negative [facility] Blood, ur 1+(A) Negative [facility] Urobilinogen, ur 0.2 <2.0 mg/dL [facility] Nitrite, ur Negative Negative [facility] Leukocyte esterase, ur Negative Negative [facility] Urine 05/13/2018 10:1 1 AM CDT 05/13/2018 11:45 AM CDT Narrative [facility] - 05/13/2018 11:58 AM CDT ?? Urine pH is affected by diet, medications, systemic acid-base disturbances, and renal tubular function. ??pH may affect urinary stone formation. ??For example, urine pH below 6.0 may help reduce the tendency for calcium phosphate stones and pH greater than 6.0 may reduce the tendency for uric acid stone formation. Source: [facility] [employer]. Last revised 09-12-2017 Santiago Bueno MD LAB URINE ORDERABLES Final Res ult Performing Organization Address [facility] de Phone Number ROSE MARIE [facility] [address] [facility] [employer] [place] [address] * TSH (05/13/2018 10:11 AM CDT) Thyroid Stimulating Hormone 2.27 0.30 - 4.20 mcIUnit/mL ROSE MARIE ALLEN Blood specimen (specimen) 05/13/2018 10:11 AM CDT 05/13/2018 11:45 AM CDT Narrative ROSE MARIE ALLEN - 05/13/2018 1:10 PM CDT us Santiago Bueno MD LAB BLOOD ORDERABLES Final Res ult Performing Organization Address [facility] de Phone Number ROSE MARIE [facility] [address] [facility] [place] [address] * Lipid panel (05/13/2018 10:11 AM CDT) Pathologist [facility] Cholesterol 131 30 - 199 mg/dL ROSE MARIE ALLEN Comment: Interpretive Data Ages < or = [...] Data was last revised on 2018. Triglycerides 58 <=149 mg/dL RO[facility] ALLEN Comment: Interpretive Data Ages < or = [...] Data was last revised on 2018. HDL 55 >=40 mg/dL [facility] ALLEN Comment: Interpretive Data Ages < or = [...] was last revised on 2018. LDL, calculated 64 <=129 mg/dL [facility] ALL[facility] Comment: Interpretive Data Ages < or = [...] was last revised on 2018. Non-HDL Cholesterol 76 mg/dL [facility] ALLEN Comment: Interpretive Data Ages < or = [...] last revised on 2018. Chol/HDL ratio 2 RO[facility] MARIE ALLEN Blood specimen (specimen) 05/13/2018 10:11 AM CDT 05/13/2018 11:45 AM CDT Narrative ROSE MARIE ALLEN - 05/13/2018 1:10 PM CDT us Santiago Bueno MD LAB BLOOD ORDERABLES Final Res ult ROSE MARIE [facility] [address] [facility]. [place] [address] * (ABNORMAL) Hemoglobin A1c (05/13/2018 10:11 AM CDT) Hgb A1C 5.8(H) 4.0 - 5.6 % RO[facility] ALLEN Comment:Testing performed by : [facility], [address] [place] [address]., [id number] Estimated Average Glucose 120 mg/dL ROSE MARIE [facility] Comment: The ADA recommends reporting an estimated Average Glucose (eAG) with all Hemoglobin A1c results using the equation derived from a study of 507 normal and diabetic adults. ??Minority populations were underrepresented and children were not included. ?? (Diabetes Care 31:8898-5464, 2008). ??The eAG is not equivalent to a fasting glucose. Testing performed by: [facility], [address] [place] [address]., [id number] Blood specimen (specimen) 05/13/2018 10:11 AM CDT 05/13/2018 1:38 PM CDT Narrative ROSE MARIE ALLEN - 05/13/2018 1:57 PM CDT us Santiago Bueno MD LAB BLOOD ORDERABLES Final Res ult [facility] [address] [facility]. [place] [address] * Comprehensive metabolic panel (05/13/2018 10:11 AM CDT) Sodium 142 135 - 145 mmol/L [facility] Potassium, pl 4.0 3.3 - 4.9 mmol/L [facility] Chloride 99 97 - 110 mmol/L [facility] CO2 29 22 - 32 mmol/L [facility] Anion gap 14 2 - 15 mmol/L [facility] BUN 18 8 - 25 mg/dL [facility] Creatinine 0.80 0.60 - 1.10 mg/dL [facility] Glucose 88 70 - 199 mg/dL [facility] Comment: Interpretive Data Fasting glucose >/= [...] interpretive data was last revised 2017. Calcium 9.3 8.5 - 10.3 mg/dL [facility] Bilirubin, total 0.4 0.1 - 1.2 mg/dL [facility] Protein, pl 7.3 6.5 - 8.5 g/dL [facility] Albumin 4.3 3.5 - 5.0 g/dL [facility] Alk phos 85 40 - 130 Units/L [facility] ALT 33 7 - 45 Units/L [facility] AST 34 10 - 45 Units/L [facility] Blood specimen (specimen) 05/13/2018 10:11 AM CDT 05/13/2018 11:45 AM CDT Narrative [facility] - 05/13/2018 1:10 PM CDT us Santiago Bueno MD LAB BLOOD ORDERABLES Final Res ult [facility] [address] [facility]. Department [place] [address] * (ABNORMAL) CBC with auto differential (05/13/2018 10:11 AM CDT) WBC 6.0 3.8 - 9.9 K/cumm [facility] W Hgb 13.6 11.9 - 15.5 g/dL [facility] W Hct 44.0 35.6 - 45.5 % [facility] W Plt 257 150 - 400 K/cumm [facility] MPV 9.6 9.1 - 12.3 fL [facility] RBC 4.80 3.90 - 5.20 M/cumm [facility] MCV 91.7 81.3 - 96.4 fL [facility] MCH 28.3 27.1 - 33.3 pg [facility] W MCHC 30.9(L) 32.3 - 35.7 g/dL [facility] RDW CV 15.3(H) 11.1 - 14.9 % [facility] RDW SD 51.0(H) 35.7 - 48.1 fL ROSE MARIE ALLEN NRBC abs 0.00 0.00 - 0.01 K/cumm ROSE MARIE ALLEN Blood specimen (specimen) 05/13/2018 10:11 AM CDT 05/13/2018 11:45 AM CDT Narrative ROSE MARIE ALLEN - 05/13/2018 12:03 PM CDT us Santiago Bueno MD LAB BLOOD ORDERABLES Final Res ult ROSE MARIE [facility] [address] [facility]. 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 (CMS/HCC) (HCC) Obesity with body mass index 30 or greater Borderline diabetes mellitus Other abnormal glucose Late, effect, cerebrovascular disease Unspecified late effects of cerebrovascular disease BMI 32.0-32.9,adult Gastroesophageal reflux disease without esophagitis Esophageal reflux Other forms of systemic lupus erythematosus, unspecified organ involvement status (HCC) Asymptomatic microscopic hematuria Osteopenia of multiple sites Benign paroxysmal positional vertigo of left ear Cough documented in this encounter Care Teams [employer] Sales Representative Relationship Specialty Start Date End Date Santiago Bueno MD [address] [facility] [address] [place] [address] PCP - General 11/30/16 06/09/20 [place] [address] [facility] [address] [place] [address] Rheumatology 07/15/17 documented as of this encounter
--- OUTSIDE RECORDS SUMMARY | 2024-08-29 10:24 | XMS_ITS | Encounter Summary ---
Author Organization [facility] Healthcare Address [address] [place] [address] Care Team Providers Care Toxicology Teacher Name Role Phone Santaigo Bueno MD Primary Care Provider [phone] Gladis Song MD Unavailable Encounter Details Date Type Department Care Team (Latest Contact Info) Description 11/04/2017 8:55 AM OVERHEAD IRRIGATOR - 11/04/2017 11:00 AM [facility] Hospital Encounter [facility] OP INTERIM [phone] Santiago Guerrier MD [address] [facility] [address] [place] [address] Discharge Disposition: Discharge to home or self care Social History Tobacco Use Types Packs/Day Years Used Date Smoking Tobacco: Never Smokeless Tobacco: Never Alcohol Use Standard Drinks/Week Comments No 0 (1 standard drink = 0.6 oz pur e alcohol) Comments Unknown Sex and Gender Information Value Date Recorded Sex Assigned at Not on file Legal Sex Female 12:11 AM OVERHEAD IRRIGATOR Gender Identity Not on file Sexual Orientation [...] by mouth daily. Take one tab daily 30 tablet 3 09/09/2017 8 hydroCHLOROthiaz dona (HYDRODIURIL) 25 mg tablet TAKE 1 TABLET EVERY DAY 90 tablet 1 05/24/2017 8 hydroxychloroqui ne (PLAQUENIL) 200 mg tablet Take 1 tablet (200 mg total) by mouth 2 (two) times a day. 180 tablet 10/22/2017 8 methotrexate 2.5 mg tablet TAKE 6 TABLETS BY MOUTH ONCE EVERY WEEK 15 tablet 10/17/2017 8 metoprolol XL (TOPROL XL) 50 mg 24 hr tablet take 1 tablet by oral route every day 0 0 04/16/2016 8 montelukast (SINGULAIR) 10 mg tablet TAKE ONE BY MOUTH ONE TIME PER DAY 30 5 10/17/2006 8 montelukast (SINGULAIR) 4 mg granules in packet Take 4 mg by mouth nightly. [address] (PROTONIX) 40 mg EC [...] Procedure Name Priority Date/Time Associated Diagnosis Comments SURGICAL PATHOLOGY Routine 11/04/2017 10 :05 AM OVERHEAD IRRIGATOR UPPER GASTROINTESTINAL ENDOSCOPY REPORT 11/04/2017 SURGICAL PATHOLOGY 11/04/2017 12 :00 AM OVERHEAD IRRIGATOR documented in this encounter Results * Surgical pathology (11/04/2017 10:05 AM OVERHEAD IRRIGATOR) 11/04/2017 10:0 5 AM OVERHEAD IRRIGATOR 11/04/2017 12:59 PM OVERHEAD IRRIGATOR Narrative 11/05/2017 2:07 PM OVERHEAD IRRIGATOR [facility] [place] [address] [place] [address] SURGICAL PATHOLOGY REPORT FINAL Patient Name: MIRELLA ORANTES ? Address: [address] [place] [address] ??Service: ??Gastro ??[place], [place] ??[id number] ??Location: ??[facility] Taken: 11/04/2017 Gender: F ?? Received: 11/04/2017 : 1950 (Age: 67) ??Hospital #: ??[id number] Accessioned: 11/04/2017 ?Patient Type: ??WC SDS Reported: 11/05/2017 ?Client ? [facility] ? Physician(s): Jean Deleon M.D. ? Diagnosis: A. ??Stomach, entire, biopsy ? 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 ??Esophagus, lower third, biopsy ? - Squamous mucosa with no histopathologic abnormality - Columnar epithelium not present fvw/11/05/2017 14:07 By this signature, I attest that the above diagnosis is based upon my personal examination of the slides(and/or other material indicated in the diagnosis). ?? Preethi Madrigal M.D. ??Report Electronically Reviewed and Signed Out By ??Preethi Madrigal M.D. 11/05/2017 14:07:28 Microscopic Description and Comment: Microscopic examination substantiates the above cited diagnosis. ?? H pylori-like organisms are not identified in H&E stained sections (immunostain not performed). Microscopic slide review and interpretation for this case was performed at the [facility], ??[address] [place], [place] ??[address] ?? CLIA # [id number] ? History: The patient is a 67-year-old female who presents with abdominal bloating and reflux who is symptomatic in spite of treatment with pantoprazole 40 mg daily. ??Operative procedure: Upper endoscopy. ??Operative findings: Normal esophagus, biopsy. ??Normal stomach, biopsy. ??Normal examined duodenum. Specimen(s) Received: A: Entire stomach B: Esophagus lower third Gross Description: Received in formalin labeled with the patient's name and as biopsy entire stomach are three pieces of grimaldo tissue measuring 0.2 to 0.4 cm in greatest dimension. ??Labeled A1. ??Jar 0 Received in formalin labeled with the patient's name and as biopsy lower third esophagus are two pieces of pale grimaldo tissue measuring 0.2 and 0.3 cm in greatest dimension. ??Labeled B1. ??Jar 0. mab/11/04/2017 13:45 ?PITO Caldwell ? By this signature, I attest that the above diagnosis is based upon my personal examination of the slides(and/or other material). ?? Surgical Pathology report is available electronically in Clinical Desktop. The performance characteristics of some immunohistochemical stains, fluorescence in-situ hybridization tests and immunophenotyping by flow cytometry cited in this report (if any) were determined by the Surgical Pathology Department at [facility] as part of an ongoing quality control coordinator program and in compliance with federally mandated regulations drawn from the Clinical Laboratory Improvement Act of 1988 (CLIA '88). ??Some of these tests rely on the use of analyte specific reagents and are subject to specific labeling requirements by the US Food and Drug Administration. ??Such diagnostic tests may only be performed in a facility that is certified by the Department of Health and Human Services as a high complexity laboratory under CLIA '88. ??The FDA has determined that such clearance or approval is not necessary. ??This test is used for clinical purposes. ??It should not be regarded as investigational or for research. ??Nevertheless, federal rules concerning the medical use of analyte specific reagents require that the following disclaimer be attached to the report: This test was developed and its performance characteristics determined by the Surgical Pathology Department of [facility]. ??It has not been cleared or approved by the U. S. Food and Drug Administration. Santiago Guerrier MD LAB PATHOLOGY ORDERABLES Final Result * SURGICAL PATHOLOGY (11/04/2017 12:00 AM OVERHEAD IRRIGATOR) Narrative 11/04/2017 12:00 AM OVERHEAD IRRIGATOR Ordered by an unspecified provider. Historical Provider LAB PATHOLOGY ORDERABLES Final Result * UPPER GASTROINTESTINAL ENDOSCOPY REPORT (11/04/2017) Anatomical Region Laterality Modality Other Provider Scanning GI PROCEDURE ORDERABLES Final Result documented in this encounter Visit Diagnoses Not on filedocumented in this encounter Care Teams Toxicology Teacher Relationship Specialty Start Date End Date Santiago Bueno MD [address] [place] [address] PCP - General 11/30/16 06/09/20 [place] [id number] [place] [address] Rheumatology 07/15/17 documented as of this encounter
--- OUTSIDE RECORDS SUMMARY | 2024-08-29 10:24 | XMS_ITS | Encounter Summary ---
Author Organization [facility] Address [address] [place] [address] Phone Care Team Providers Care Pin Worker Name Role Phone Santiago Bueno MD Primary Care Provider [phone] Gladis Song MD Unavailable Encounter Details Date Type Department Care Team (Late st Contact Info) Description 05/23/2018 10:35 AM CDT Lab [facility] Endocrinology Metabolism and Lipid [address] [facility] [address] [place] [address] [place] [address] Chest pain due to myocardial ischemia, unspecified [...] on file Legal Sex Female 12:11 AM STOCK DEALER Gender Identity Not on file Sexual Orientation Not on file Occupation Industry Job Start Date Job End Date Retired Not on file Not on file Not on file documented as of this encounter Plan of Treatment Not on file documented as of this encounter Procedures Procedure Name Priority Date/Time Associated Diagnosis Comments BASIC METABOLIC PANEL Routine 05/23/2018 10:20 AM CDT Chest pain due to myocardial ischemia, unspecified ischemic chest pain type documented in this encounter Results * Basic metabolic panel (05/23/2018 10:20 AM [...] LAB BLOOD ORDERABLES Final Res ult [facility] documented in this encounter Visit Diagnoses Diagnosis Chest pain due to myocardial ischemia, unspecified ischemic chest pain type documented in this encounter Care Teams Pin Worker Relationship Specialty Start Date End Date Santiago Bueno MD [address] [facility] [address] [place] [address] PCP - General 11/30/16 06/09/20 [place] [id number] [facility] [address] [place] [address] Rheumatology 07/15/17 documented as of this encounter
--- OUTSIDE RECORDS SUMMARY | 2024-08-29 10:25 | XMS_ITS | Encounter Summary ---
Author Organization [facility] Address [address] [place] [phone] Phone Care Team Providers Care Frame Fixer Name Role Phone Santiago Bueno MD Primary Care Provider [phone] Gladis Song MD Unavailable Reason for Visit * Reason Comments Lupus Encounter Details Date Type Department Care Team (Late st Contact Info) Description 09/09/2017 9:45 AM DISPLAY COORDINATOR Office Visit [facility] [address] [facility] [address] [place] [address] [place] [address] [facility] [address] [place] [address] Other forms of systemic lupus [...] on file Legal Sex Female 12:11 AM DISPLAY COORDINATOR Gender Identity Not on file Sexual Orientation Not on file Occupation Industry Job Start Date Job End Date Retired Not on file Not on file Not on file documented as of this encounter Last Filed Vital Signs Vital Sign Reading Time Taken Comments Blood Pressure 124/80 09/09/2017 9:38 AM DISPLAY COORDINATOR Pulse 80 09/09/2017 9:38 AM DISPLAY COORDINATOR Temperature - - Respiratory Rate - - Oxygen Saturation - - Inhaled Oxygen Concentration - - Weight 72.1 kg (159 lb) 09/09/2017 9:38 AM DISPLAY COORDINATOR Height - - Body Mass Index 32.11 08/16/2017 11:14 AM DISPLAY COORDINATOR documented in this encounter Ordered Prescriptions Prescription Sig Dispense Quantity Refills Last Filled Start Date End Date folic acid (FOLVITE) 1 mg tablet Take 1 tablet (1 mg total) by mouth daily. Take one tab daily 30 tablet 3 09/09/2017 8 methotrexate 2.5 mg tablet Take 6 tablets (15 mg total) by mouth once a week. 15 tablet 1 09/09/2017 8 documented in this encounter Progress Notes * Katy Ball PA - 09/09/2017 9:45 AM CST Images from the original note were not included. Subjective/Objective Patient ID: Chio Orantes is a 66 y.o. female. Chief Complaint Lupus Patient states that she did start the MTX. She feels that the AM stiffness is a little less. She denies any SE from this medication. Review of Systems Constitutional: Negative for activity change, fatigue and fever. HENT: Negative for mouth sores. Eyes: Negative for pain. Respiratory: Negative for shortness of breath and wheezing. Cardiovascular: Negative for chest pain. Gastrointestinal: Negative for abdominal pain. Musculoskeletal: Positive for arthralgias. Negative for joint swelling. Skin: Negative for rash. Vitals: Vitals: 09/09/17 0938 BP: 124/80 Pulse: 80 Physical Exam Constitutional: She is oriented to person, place, and time. She appears well- developed and well-nourished. HENT: Pupils equal, no mouth [...] involvement status (CMS/HCC) (Primary) Assessment & Plan: MTX started at the last Ov. She [...] is on a therapeutic dose of MTX. assisted use of drug Assessment & Plan: Will continue to monitor the patient with routine labs. Orders: - Erythrocyte sedimentation rate; Future - CBC with auto differential; Future - Comprehensive metabolic panel; Future - CRP (acute phase); Future Other orders - methotrexate 2.5 mg tablet; Take 6 tablets (15 mg total) by mouth once a week. - folic acid (FOLVITE) 1 mg tablet; Take 1 tablet (1 mg total) by mouth daily. Take one tab daily Cosigned by Adam Simmons MD at 09/09/2017 4:24 PM DISPLAY COORDINATOR LAY COORDINATOR LAY COORDINATOR documented in this encounter Miscellaneous Notes * Assessment & Plan Note - Katy Ball PA - 09/09/2017 7:58 AM DISPLAY COORDINATOR Associated Problem(s): Therapeutic drug monitoring (Resolved 06/30/2019) Will continue to monitor the patient with routine labs. LAY COORDINATOR * Assessment & Plan Note - Katy Ball PA - 09/09/2017 7:58 AM DISPLAY COORDINATOR Associated Problem(s): Systemic lupus erythematosus (CMS/HCC) (HCC) MTX started at the last Ov. She [...] is on a therapeutic dose of MTX. LAY COORDINATOR LAY COORDINATOR LAY COORDINATOR documented in this encounter Plan of Treatment Not on file documented as of this encounter Visit Diagnoses Diagnosis Other forms of systemic lupus erythematosus, unspecified organ involvement status (HCC)- Primary assisted use of drug documented in this encounter Discontinued Medications Medication Sig Discontinue Reason Start Date End Da te folic acid (FOLVITE) 1 mg tablet Take 1 tablet (1 mg total) by mouth daily. Take one tab daily 07/29/2017 08/28/2017 methotrexate 2.5 mg tablet Take 3 tablets (7.5 mg total) by mouth once a week. Reorder 07/29/2017 09/09/2017 documented as of this encounter Care Teams Frame Fixer Relationship Specialty Start Date End Date Santiago Bueno MD [address] [place] [address] PCP - General 11/30/16 06/09/20 [place] [address] [facility] [address] [place] [address] Rheumatology 07/15/17 documented as of this encounter
--- OUTSIDE RECORDS SUMMARY | 2024-08-29 10:25 | XMS_ITS | Encounter Summary ---
Author Organization [facility] Address [address] [facility] [address] [place] [address] Care Team Providers Care Rig Manager Name Role Phone Santiago Bueno MD Primary Care Provider [phone] Gladis Song MD Unavailable Reason for Visit * Reason Onset Date Comments Shortness of Breath 09/23/2017 Encounter Details Date Type Department Care Team (Late st Contact Info) Description 09/23/2017 Nurse Triage [facility] [address] [facility] [address] [place] [address] Santiago Bueno MD [address] [facility] [address] [place] [address] Social History Tobacco Use Types Packs/Day Years Used Date Smoking Tobacco: Never Smokeless Tobacco: Never Alcohol Use Standard Drinks/Week Comments No 0 (1 standard drink = 0.6 oz pur e alcohol) Comments Unknown Sex and Gender Information Value Date Recorded Sex Assigned at Not on file Legal Sex Female 12:11 AM THREAT MONITORING ANALYST Gender Identity Not on file Sexual Orientation Not on file Occupation Industry Job Start Date Job End Date Retired Not on file Not on file Not on file documented as of this encounter Miscellaneous Notes * Telephone Encounter - Jessa Quesada RN - 09/23/2017 10:14 AM CST Reason for Disposition ??? Continuous (nonstop) coughing Protocols used: BREATHING [id number] Pt c/o SOB, wheezing, dry cough that kept her up most of the night, has to cough hard to get up mucus and yellowish at times, sinus & chest congestion. Went to [facility] 08/09/17 and given Zpack & Prednisone improved some, had OV with SEASONER HAND Tatum Cervantes 08/16/17 and given Ventolin inhaler that helps some, but symptoms persist and pt is concerned. Feels SOB is not improving and has some wheezing. Scheduled SDA today with SE[facility] Tiffanie at 1415, afternoon time was pt choice. Advised to drink plenty of fluids and pt is drinking hot tea with lemon and water. AT MONITORING ANALYST * Telephone Encounter - Jessa Quesada RN - 09/23/2017 10:02 AM CST Regarding: trouble breathing/mucus ----- Message from Jinny Michelle sent at 09/23/2017 9:48 AM THREAT MONITORING ANALYST ----- Symptom Based Call Chief Complaint: trouble breathing/mucus Duration: Last week Appointment Details: Red Flag Additional Comments: Patient wanted to make a appointment. Patient stated that she has had this issues before lydia and had to go to a extended care. Patient stated that two weeks later she had afollow up appointment with SEASONER HAND Tatum Cervantes and was told that she was on the rode to recovery. Patientstated that she feels okay only if she sits still. AT MONITORING ANALYST documented in this encounter Plan of Treatment Not on file documented as of this encounter Visit Diagnoses Not on filedocumented in this encounter Care Teams Rig Manager Relationship Specialty Start Date End Date Santiago Bueno MD [address] [place] [address] PCP - General 11/30/16 06/09/20 [place] [id number] [facility] [address] [place] [address] Rheumatology 07/15/17 documented as of this encounter
--- OUTSIDE RECORDS SUMMARY | 2024-08-29 10:25 | XMS_ITS | Encounter Summary ---
Author Organization [facility] Address [address] [place] [phone] Phone Care Team Providers Care Housekeeping Laundry Worker Name Role Phone Santiago Bueno MD Primary Care Provider [phone] Gladis Song MD Unavailable Reason for Visit * Reason Comments Joint Pain Encounter Details Date Type Department Care Team (Late st Contact Info) Description 10/22/2017 10:45 AM REDUCTION PLANT SUPERVISOR Office Visit [facility] [address] [facility] [address] [place] [address] [place] [address] [facility] [address] [place] [address] Other forms of systemic lupus erythematosus, unspecified organ involvement status (CMS/[facility]) (Primary Dx); alf use of drug; Gastroesophageal reflux disease without esophagitis Social History Tobacco Use Types Packs/Day Years Used Date Smoking Tobacco: Never Smokeless Tobacco: Never Alcohol Use Standard Drinks/Week Comments No 0 (1 standard drink = 0.6 oz pur e alcohol) Comments Unknown Sex and Gender Information Value Date Recorded Sex Assigned at Not on file Legal Sex Female 12:11 AM REDUCTION PLANT SUPERVISOR Gender Identity Not on file Sexual Orientation Not on file Occupation Industry Job Start Date Job End Date Retired Not on file Not on file Not on file documented as of this encounter Last Filed Vital Signs Vital Sign Reading Time Taken Comments Blood Pressure 112/74 10/22/2017 10:58 AM REDUCTION PLANT SUPERVISOR Pulse 64 10/22/2017 10:58 AM REDUCTION PLANT SUPERVISOR Temperature - - Respiratory Rate - - Oxygen Saturation - - Inhaled Oxygen Concentration - - Weight 72.6 kg (160 lb) 10/22/2017 10:58 AM REDUCTION PLANT SUPERVISOR Height - - Body Mass Index 32.32 10/21/2017 8:49 AM REDUCTION PLANT SUPERVISOR documented in this encounter Ordered Prescriptions Prescription Sig Dispense Quantity Refills Last Filled Start Date End Date hydroxychloroquine (PLAQUENIL) 200 mg tablet Take 1 tablet (200 mg total) by mouth 2 (two) times a day. 180 tablet 10/22/2017 01/18/2018 documented in this encounter Progress Notes * Katy Ball, PITO - 10/22/2017 10:45 AM CST Images from the original note were not included. Subjective/Objective Patient ID: Chio Orantes is a 66 y.o. female. Chief Complaint Joint Pain She states that she was ready to quit taking the MtX because her stomach was upset and she didn't feel well. She saw the CARBIDE TOOL MAKER at Dr. Bueno's office yesterday. She is going to be schedule for an endoscopy. She reports having a lot of itching on her skin. She continues to have problems with her lips being dry. She saw a derm and got topical ointments which have not helped. She states that her hands feel much better. When she squeezes them shut it will provoke a little pain. She feels that the swelling has gone down. She is currently on three tabs of MTX. She was suppose to increase at that last OV but her lfts were a little elevated when they were checked last. AM stiffness is minimal. Review of Systems Constitutional: Negative for activity change, fatigue and fever. HENT: Negative for mouth sores. Eyes: Negative for pain. Respiratory: Negative for shortness of breath and wheezing. Cardiovascular: Negative for chest pain. Gastrointestinal: Negative for abdominal pain. Musculoskeletal: Positive for arthralgias. Negative for joint swelling. Skin: Negative for rash. Vitals: Vitals: 10/22/17 1058 BP: 112/74 Pulse: 64 Physical Exam Constitutional: Patient is oriented to [...] Results Component Value Date CRP 0.4 07/29/2017 Most recent labs: Assessment/Plan Diagnoses and all orders for this visit: Other forms of systemic lupus erythematosus, unspecified organ involvement status (CMS/HCC) (Primary) Assessment & Plan: Patient disease activity is moderate. Her LFTs are now normal so will try increasing MTX. Patient is to continue HCQ. She is to increase the MtX to 4 tablets/week x 1 week, then increase to6 tablets/week thereafter. Will check routine labs at the next OV. She had an eye exam recently. alf use of drug Assessment & Plan: Will continue to monitor the patient with routine labs. Gastroesophageal reflux disease without esophagitis Assessment & Plan: Recently started on protonix. Other orders - hydroxychloroquine (PLAQUENIL) 200 mg tablet; Take 1 tablet (200 mg total) by mouth 2 (two) timesa day. Cosigned by Gladis Song MD at 10/22/2017 4:45 PM REDUCTION PLANT SUPERVISOR CTION PLANT SUPERVISOR CTION PLANT SUPERVISOR documented in this encounter Miscellaneous Notes * Assessment & Plan Note - Katy Ball PA - 10/22/2017 11:14 AM REDUCTION PLANT SUPERVISOR Associated Problem(s): Gastroesophageal reflux disease Recently started on protonix. CTION PLANT SUPERVISOR * Assessment & Plan Note - Katy Ball PA - 10/22/2017 11:13 AM REDUCTION PLANT SUPERVISOR Associated Problem(s): Therapeutic drug monitoring (Resolved 06/30/2019) Will continue to monitor the patient with routine labs. CTION PLANT SUPERVISOR * Assessment & Plan Note - Katy Ball PA - 10/22/2017 11:08 AM REDUCTION PLANT SUPERVISOR Associated Problem(s): Systemic lupus erythematosus (CMS/HCC) (HCC) Patient disease activity is moderate. Her LFTs are now normal so will try increasing MTX. Patient is to continue HCQ. She is to increase the MtX to 4 tablets/week x 1 week, then increase to6 tablets/week thereafter. Will check routine labs at the next OV. She had an eye exam recently. 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 plant operator use of drug Gastroesophageal reflux disease without esophagitis Esophageal reflux documented in this encounter Discontinued Medications Medication Sig Discontinue Reason Start Date End Da te hydroxychloroquine (PLAQUENIL) 200 mg tablet TAKE 1 TABLET BY MOUTH EVERY 12 HOURS Reorder 07/15/2017 10/22/2017 documented as of this encounter Care Teams Housekeeping Laundry Worker Relationship Specialty Start Date End Date Santiago Bueno MD [address] [place] [address] PCP - General 11/30/16 06/09/20 [place] [address] [place] [address] Rheumatology 07/15/17 documented as of this encounter
--- OUTSIDE RECORDS SUMMARY | 2024-08-29 10:25 | XMS_ITS | Encounter Summary ---
Author Organization [facility] Address [address] [place] [address] Care Team Providers Care Bridge Repair Crew Person Name Role Phone Santiago Bueno MD Primary Care Provider [phone] Gladis Song MD Unavailable Reason for Visit * Reason Onset Date Comments tiffanie Rossi Test Results 09/24/2017 Encounter Details Date Type Department Care Team (Late st Contact Info) Description 09/24/2017 Telephone [facility] [address] [place] [address] Santiago Bueno MD [address] [facility] [address] [place] [address] tiffanie Rossi Test Results Social History Tobacco Use Types Packs/Day Years Used Date Smoking Tobacco: Never Smokeless Tobacco: Never Alcohol Use Standard Drinks/Week Comments No 0 (1 standard drink = 0.6 oz pur e alcohol) Comments Unknown Sex and Gender Information Value Date Recorded Sex Assigned at Not on file Legal Sex Female 12:11 AM MANAGEMENT MANAGER Gender Identity Not on file Sexual Orientation Not on file Occupation Industry Job Start Date Job End Date Retired Not on file Not on file Not on file documented as of this encounter Miscellaneous Notes * Telephone Encounter - Laura Granger MA - 09/25/2017 4:19 PM CST Called patient, informed of DB message. GEMENT MANAGER * Telephone Encounter - Santiago Bueno MD - 09/25/2017 1:19 PM CST She has no pneumonia but the CXR doesn't rule out an upper respiratory infection (typically a virus) which would cause wheezing. Most often, that will go away on its own after a few weeks. GEMENT MANAGER * Telephone Encounter - Arleth Bowles - 09/25/2017 10:09 AM CST Advised patient of Tiffanie Rousseau's encounter note; patient understood. Patient is requesting an explanation for the wheezing Tiffanie Rousseau heard. Patient can be reached at [phone]. GEMENT MANAGER * Telephone Encounter - Jessy Castellon NP - 09/24/2017 7:32 PM CST Please call the patient and let her know the CXR was normal. No pneumonia GEMENT MANAGER * Telephone Encounter - Yolie Liu - 09/24/2017 12:18 PM CST Test Result- Not Present: Type of test: Chest xray Date of test: 09/23/17 Where test was performed: [facility] Additional Questions/Comments: Patient calling to get results of chest xray she had done yesterday.She saw Tiffanie and was told that Tiffanie would call her this morning with results. Please call patientwith results. GEMENT MANAGER documented in this encounter Plan of Treatment Not on file documented as of this encounter Visit Diagnoses Not on filedocumented in this encounter Care Teams Bridge Repair Crew Person Relationship Specialty Start Date End Date Santiago Bueno MD [address] [facility] [address] [place] [address] PCP - General 11/30/16 06/09/20 [place] [address] [facility] [address] [place] [address] Rheumatology 07/15/17 documented as of this encounter
--- OUTSIDE RECORDS SUMMARY | 2024-08-29 10:25 | XMS_ITS | Encounter Summary ---
Author Organization [facility] Address [address] [place] [address] Care Team Providers Care Carbon Capture Power Plant Operator Name Role Phone Santiago Bueno MD Primary Care Provider [phone] Gladis Song MD Unavailable Encounter Details Date Type Department Care Team (Late st Contact Info) Description 10/24/2017 Telephone [facility] [address] [place] [address] Santiago Bueno MD [address] [facility] [address] [place] [address] Social History Tobacco Use Types Packs/Day Years Used Date Smoking Tobacco: Never Smokeless Tobacco: Never Alcohol Use Standard Drinks/Week Comments No 0 (1 standard drink = 0.6 oz pur e alcohol) Comments Unknown Sex and Gender Information Value Date Recorded Sex Assigned at Not on file Legal Sex Female 12:11 AM CONTINUING EDUCATION INSTRUCTOR Gender Identity Not on file Sexual Orientation Not on file Occupation Industry Job Start Date Job End Date Retired Not on file Not on file Not on file documented as of this encounter Miscellaneous Notes * Telephone Encounter - Avel Phelps - 10/24/2017 10:14 AM CST Order of endoscopy, esophagus is now faxed to Dr. Guerrier's office. The office will contact pt to make the appointment. :) INUING EDUCATION INSTRUCTOR documented in this encounter Plan of Treatment Not on file documented as of this encounter Procedures Procedure Name Priority Date/Time Associated Diagnosis Comments LIPID PANEL Routine 09/23/2017 documented in this encounter Results * LIPID PANEL (09/23/2017) Lipid Panel Normal us Historical Provider HEALTH MAINTENANCE Final Result documented in this encounter Visit Diagnoses Not on filedocumented in this encounter Care Teams Carbon Capture Power Plant Operator Relationship Specialty Start Date End Date Santiago Bueno MD [address] [facility] [address] [place] [address] PCP - General 11/30/16 06/09/20 [place] [id number] [facility] [address] [place] [address] Rheumatology 07/15/17 documented as of this encounter
--- OUTSIDE RECORDS SUMMARY | 2024-08-29 10:25 | XMS_ITS | Encounter Summary ---
Author Organization [facility] Address [address] [place] [phone] Phone Care Team Providers Care Citrus Fruit Packer Name Role Phone Santiago Bueno MD Primary Care Provider [phone] Gladis Song MD Unavailable Silvia Granger DPJenna Unavailable [phone] No, Physician Primary Care Provider [phone] Encounter Details Date Type Department Care Team (Late st Contact Info) Description 09/13/2017 Orders Only [facility] [address] [place] [address] [place] [address] [facility] [address] [place] [address] Social History Tobacco Use Types Packs/Day Years Used Date Smoking Tobacco: Never Smokeless Tobacco: Never Alcohol Use Standard Drinks/Week Comments No 0 (1 standard drink = 0.6 oz pur e alcohol) PHQ-2 Answer Date Recorded PHQ-2 Score 0 04/24/2019 Comments Unknown Sex and Gender Information Value Date Recorded Sex Assigned at Not on file Legal Sex Female 12:11 AM SEWING MACHINE OPERATOR FLOORPERSON Gender Identity Not on file Sexual Orientation Not on file Occupation Industry Job Start Date Job End Date Retired Not on file Not on file Not on file documented as of this encounter Progress Notes * Katy Ball PA - 09/13/2017 11:37 AM CST Liver function test was a little high. Please have her repeat in two weeks. (not on a day she takesmtx or the day after). NG MACHINE OPERATOR FLOORPERSON documented in this encounter Plan of Treatment Not on file documented as of this encounter Procedures Procedure Name Priority Date/Time Associated Diagnosis Comments SCAN - LABS 09/13/2017 11:03 AM SEWING MACHINE OPERATOR FLOORPERSON documented in this encounter Results * SCAN - LABS (09/13/2017 11:03 AM SEWING MACHINE OPERATOR FLOORPERSON) us Katy SHELDON Final Resul t documented in this encounter Visit Diagnoses Not on filedocumented in this encounter Care Teams Citrus Fruit Packer Relationship Specialty Start Date End Date Santiago Bueno MD [address] [facility] [address] [place] [address] PCP - General 11/30/16 06/09/20 No, Physician PCP - General 06/10/20 10/30/20 [place] [address] [facility] [address] [place] [address] Rheumatology 07/15/17 Silvia Granger DPT [id number] [facility] [address] [place] [address] Physical Therapist Physical Therapy 04/14/20 06/09/20 documented as of this encounter
--- OUTSIDE RECORDS SUMMARY | 2024-08-29 10:25 | XMS_ITS | Encounter Summary ---
Author Organization [facility] Address [address] [place] [address] Care Team Providers Care Stave Planer Tender Name Role Phone Santiago Bueno MD Primary Care Provider [phone] Gladis Song MD Unavailable Encounter Details Date Type Department Care Team (Latest Contact Info) Description 08/16/2017 2:47 PM TURNING MACHINE OPERATOR - 08/16/2017 11:59 PM [facility] Hospital Encounter [facility] OP INTERIM [phone] Christopher Song MD [address] [facility] [address] [place] [address] Tatum Benito, [facility] [address] [facility] [address] [place] [address] Discharge Disposition: Discharge to home or self care Social History Tobacco Use Types Packs/Day Years Used Date Smoking Tobacco: Never Smokeless Tobacco: Never Alcohol Use Standard Drinks/Week Comments No 0 (1 standard drink = 0.6 oz pur e alcohol) Comments Unknown Sex and Gender Information Value Date Recorded Sex Assigned at Not on file Legal Sex Female 12:11 AM TURNING MACHINE OPERATOR Gender Identity Not on file Sexual Orientation Not on file Occupation Industry Job Start Date Job End Date Retired Not on file Not on file Not on file documented as of this encounter Medications at Time of Discharge cholecalciferol (VITAMIN D3) 2,000 unit tablet take 1 by Oral route every day 0 0 11/30/2014 apixaban (ELIQUIS) 5 mg tablet 5 mg. 11/12/2018 aspirin 81 mg tablet Take 81 mg by mouth daily. 09/23/2017 atorvastatin (LIPITOR) 80 mg tablet TAKE 1 TABLET EVERY DAY 30 3 05/02/2015 04/04/2018 folic acid (FOLVITE) 1 mg tablet Take 1 tablet (1 mg total) by mouth daily. Take one tab daily 30 tablet 3 07/29/2017 08/28/2017 hydroCHLOROthiazi de (HYDRODIURIL) 25 mg tablet TAKE 1 TABLET EVERY DAY 90 tablet 1 05/24/2017 11/18/2017 hydroxychloroquin e (PLAQUENIL) 200 mg tablet TAKE 1 TABLET BY MOUTH EVERY 12 HOURS 180 tablet 07/15/2017 10/22/2017 methotrexate 2.5 mg tablet Take 3 tablets (7.5 mg total) by mouth once a week. 15 tablet 1 07/29/2017 09/09/2017 metoprolol XL (TOPROL XL) 50 mg 24 hr tablet take 1 tablet by oral route every day 0 0 04/16/2016 06/11/2018 montelukast (SINGULAIR) 10 mg tablet TAKE ONE BY MOUTH ONE TIME PER DAY 30 5 10/17/2006 01/31/2018 omeprazole (PriLOSEC) 20 mg capsule TAKE ONE CAPSULE BY MOUTH TWICE A DAY 180 capsule 04/25/2017 09/23/2017 documented as of this encounter Discharge Disposition Disposition Code Departure Means Destination Discharge to home or self care documented in this encounter Plan of Treatment Not on file documented as of this encounter Procedures Procedure Name Priority Date/Time Associated Diagnosis Comments DISCHARGE LABORATORY CUMULATIVE REPORT 08/16/2017 12:00 AM TURNING MACHINE OPERATOR documented in this encounter Results * DISCHARGE LABORATORY CUMULATIVE REPORT (08/16/2017 12:00 AM TURNING MACHINE OPERATOR) Narrative 08/16/2017 12:00 AM TURNING MACHINE OPERATOR Ordered by an unspecified provider. Historical Provider LAB BLOOD ORDERABLES Callie l Result documented in this encounter Visit Diagnoses Not on filedocumented in this encounter Care Teams Stave Planer Tender Relationship Specialty Start Date End Date Santiago Bueno MD [address] [place] [address] PCP - General 11/30/16 06/09/20 [place] [address] [facility] [address] [place] [address] Rheumatology 07/15/17 documented as of this encounter
--- OUTSIDE RECORDS SUMMARY | 2024-08-29 10:25 | XMS_ITS | Encounter Summary ---
Author Organization [facility] Address [address] [place] [phone] Phone Care Team Providers Care Crew Leader/Control Room Operator Name Role Phone Santiago Bueno MD Primary Care Provider [phone] Gladis Song MD Unavailable Reason for Visit * Reason Onset Date Comments lab results 10/03/2017 Encounter Details Date Type Department Care Team (Late st Contact Info) Description 10/03/[address] [address] Shelby Snyder lab results Social History Tobacco Use Types Packs/Day Years Used Date Smoking Tobacco: Never Smokeless Tobacco: Never Alcohol Use Standard Drinks/Week Comments No 0 (1 standard drink = 0.6 oz pur e alcohol) Comments Unknown Sex and Gender Information Value Date Recorded Sex Assigned at Not on file Legal Sex Female 12:11 AM GENERATION ENGINEER Gender Identity Not on file Sexual Orientation Not on file Occupation Industry Job Start Date Job End Date Retired Not on file Not on file Not on file documented as of this encounter Miscellaneous Notes * Telephone Encounter - Shelby Snyder - 10/03/2017 4:58 PM CST Test results & instructions called to pt RATION ENGINEER * Telephone Encounter - Gladis Song MD - 10/03/2017 4:31 PM CST lfts are normal she can continue the mtx RATION ENGINEER * Telephone Encounter - Shelby Snyder - 10/03/2017 3:07 PM CST Pt left vm asking about recent lab results. I see results in chart but no comments from providers. What should we tell her? RATION ENGINEER documented in this encounter Plan of Treatment Not on file documented as of this encounter Visit Diagnoses Not on filedocumented in this encounter Care Teams Crew Leader/Control Room Operator Relationship Specialty Start Date End Date Santiago Bueno MD [address] [facility] [address] [place] [address] PCP - General 11/30/16 06/09/20 [place] [address] [facility] [address] [place] [address] Rheumatology 07/15/17 documented as of this encounter
--- OUTSIDE RECORDS SUMMARY | 2024-08-29 10:25 | XMS_ITS | Encounter Summary ---
Author Organization [facility] Address [address] [place] [phone] Phone Care Team Providers Care Ammonia Worker Name Role Phone Santiago Bueno MD Primary Care Provider [phone] Gladis Song MD Unavailable Silvia Granger DPT Unavailable [phone] No, Physician Primary Care Provider [phone] Encounter Details Date Type Department Care Team (Late st Contact Info) Description 09/27/2017 Orders Only [facility] [address] [facility] [address] [place] [address] Katy Prescott, [place] [address] [facility] [address] [place] [address] Social History Tobacco Use Types Packs/Day Years Used Date Smoking Tobacco: Never Smokeless Tobacco: Never Alcohol Use Standard Drinks/Week Comments No 0 (1 standard drink = 0.6 oz pur e alcohol) PHQ-2 Answer Date Recorded PHQ-2 Score 0 04/24/2019 Comments Unknown Sex and Gender Information Value Date Recorded Sex Assigned at Not on file Legal Sex Female 12:11 AM MARKETING CO OP Gender Identity Not on file Sexual Orientation Not on file Occupation Industry Job Start Date Job End Date Retired Not on file Not on file Not on file documented as of this encounter Plan of Treatment Not on file documented as of this encounter Procedures Procedure Name Priority Date/Time Associated Diagnosis Comments SCAN - LABS 09/27/2017 10:47 AM MARKETING CO OP documented in this encounter Results * SCAN - LABS (09/27/2017 10:47 AM MARKETING CO OP) Katy SHELDON Final Resul t documented in this encounter Visit Diagnoses Not on filedocumented in this encounter Care Teams Ammonia Worker Relationship Specialty Start Date End Date Santiago Bueno MD [address] [facility] [address] [place] [address] PCP - General 11/30/16 06/09/20 No, Physician PCP - General 06/10/20 10/30/20 [place] [address] [facility] [address] [place] [address] Rheumatology 07/15/17 Silvia Granger DPT [id number] [facility] [address] [place] [address] Physical Therapist Physical Therapy 04/14/20 06/09/20 documented as of this encounter
--- OUTSIDE RECORDS SUMMARY | 2024-08-29 10:25 | XMS_ITS | Encounter Summary ---
Author Organization [facility] Address [address] [place] [address] Care Team Providers Care Hadoop Engineer Name Role Phone Santiago Bueno MD Primary Care Provider [phone] Gladis Song MD Unavailable Reason for Visit * Reason Comments Cough Nasal Congestion Encounter Details Date Type Department Care Team (Late st Contact Info) Description 09/23/2017 2:15 PM CHIEF OPERATIONS OFFICER Office Visit [facility] [address] [place] [address] Jessy Jaeger, SAW GRINDER [address] [place] [id number] Bronchitis (Primary Dx); Allergic rhinitis, unspecified chronicity, unspecified seasonality, unspecified trigger; Gastroesophageal reflux disease without esophagitis; Malaise and fatigue; Mild asthma with acute exacerbation, unspecified whether persistent; BMI 31.0-31.9,adult Social History Tobacco Use Types Packs/Day Years Used Date Smoking Tobacco: Never Smokeless Tobacco: Never Alcohol Use Standard Drinks/Week Comments No 0 (1 standard drink = 0.6 oz pur e alcohol) Comments Unknown Sex and Gender Information Value Date Recorded Sex Assigned at Not on file Legal Sex Female 12:11 AM CHIEF OPERATIONS OFFICER Gender Identity Not on file Sexual Orientation Not on file Occupation Industry Job Start Date Job End Date Retired Not on file Not on file Not on file documented as of this encounter Last Filed Vital Signs Vital Sign Reading Time Taken Comments Blood Pressure 116/74 09/23/2017 2:20 PM CHIEF OPERATIONS OFFICER Pulse 79 09/23/2017 2:20 PM CHIEF OPERATIONS OFFICER Temperature 36.7 ??C (98 ??F) 09/23/2017 2:20 PM CHIEF OPERATIONS OFFICER Respiratory Rate 14 09/23/2017 2:20 PM CHIEF OPERATIONS OFFICER Oxygen Saturation 92% 09/23/2017 2:20 PM CHIEF OPERATIONS OFFICER Inhaled Oxygen Concentration - - Weight 71.7 kg (158 lb) 09/23/2017 2:20 PM CHIEF OPERATIONS OFFICER Height 149.9 cm (4' 11 ) 09/23/2017 2:20 PM CHIEF OPERATIONS OFFICER Body Mass Index 31.91 09/23/2017 2:20 PM CHIEF OPERATIONS OFFICER documented in this encounter Patient Instructions * Patient Instructions* Jessy Guadarrama NP - 09/23/2017 2:15 PM CHIEF OPERATIONS OFFICER Problem List Asthma (Chronic) Overview Asthma Current Assessment & Plan Using her singulair and inhaler as prescribed. Relevant Medications montelukast (SINGULAIR) 4 mg granules in packet Other Relevant Orders XR Chest Pa Lateral 2 Views Atopic rhinitis (Chronic) Overview ALLERGIC RHINITIS NOS BMI 31.0-31.9,adult Current Assessment & Plan Body mass index is 31.91 kg/m??. BMI Follow-up includes: nutrition counseling, exercise counseling and education provided. Bronchitis - Primary Current Assessment & Plan Order CXR today May need steroids, antibiotic if pneumonia. Relevant Medications montelukast (SINGULAIR) 4 mg granules in packet Other Relevant Orders XR Chest Pa Lateral 2 Views Gastroesophageal reflux disease (Chronic) Overview ESOPHAGEAL REFLUX Current Assessment & Plan Increase omeprazole to 40 mg daily. sit upright postprandial avoid fat sugar pork etoh cardiac was ruled out call for any signs of karen bleeding from rectum, dark tarry stools, abdominal pain nausea emesis or po intolerance, prescription sent to pharmacy we discussed at length the risk and benefits if no resolution consult GI May need endoscopy. Relevant Medications omeprazole (PriLOSEC) 20 mg capsule Malaise and fatigue (Chronic) Overview MALAISE AND FATIGUE NEC F OPERATIONS OFFICER documented in this encounter Ordered Prescriptions Prescription Sig Dispense Quantity Refills Last Filled Start Date End Date omeprazole (PriLOSEC) 20 mg capsule Take 2 capsules (40 mg total) by mouth daily. 180 capsule 09/23/2017 8 documented in this encounter Progress Notes * Jessy Guadarrama, SAW GRINDER - 09/23/2017 2:15 PM CST Subjective/Objective Patient ID: Chio Orantes is a 66 y.o. female. Chief Complaint Cough and Nasal Congestion 66 y/o female with cough, congestion, nausea and feels like everything she is eating is sitting in her chest. She takes 20 mg omeprazole daily for GERD. Cough This is a chronic problem. The current episode started more than 1 month ago. The problem has been waxing and waning. The problem occurs every few minutes. The cough is non-productive. Associated symptoms include chills, headaches and a sore throat. Nothing aggravates the symptoms. Risk factors forlung disease include animal exposure. She has tried a beta-agonist inhaler for the symptoms. The treatment provided mild relief. Medication and allergies reviewed and updated. Past medical, surgical, family history reviewed and updated. Vital signs and BMI reviewed. Review of Systems Constitutional: Positive for chills and fatigue. HENT: Positive for congestion, sinus pain, sinus pressure and sore throat. Respiratory: Positive for cough. Neurological: Positive for headaches. BP 116/74 (BP Location: Left arm, Patient Position: Sitting) Pulse 79 Temp 36.7 ??C (98 ??F) Resp 14 Ht 149.9 cm (4' 11 ) Wt 71.7 kg (158 lb) SpO2 92% BMI 31.91 kg/m?? Physical Exam Constitutional: She is oriented to person, place, and time. She appears well- developed and well-nourished. HENT: Head: Normocephalic. Right Ear: Hearing normal. A middle ear effusion is present. Left Ear: Hearing normal. A middle ear effusion is present. Nose: Mucosal edema and rhinorrhea present. Right sinus exhibits maxillary sinus tenderness. Left sinus exhibits maxillary sinus tenderness. Mouth/Throat: Mucous membranes are normal. Posterior oropharyngeal edema and posterior oropharyngeal erythema present. Eyes: Conjunctivae and EOM are normal. Pupils are equal, round, and reactive to light. Neck: Normal range of motion. Neck supple. Cardiovascular: Normal rate, regular rhythm, normal heart sounds and intact distal pulses. Pulmonary/Chest: Effort normal. She has wheezes. She has rales. Abdominal: Soft. Bowel sounds are normal. Musculoskeletal: Normal range of motion. Lymphadenopathy: She has cervical adenopathy. Neurological: She is alert and oriented to person, place, and time. She has normal reflexes. Skin: Skin is warm and dry. Capillary refill takes less than 2 seconds. Psychiatric: She has a normal mood and affect. Her behavior is normal. Judgment and thought contentnormal. Nursing note and vitals reviewed. Assessment/Plan Diagnoses and all orders for this visit: Bronchitis (Primary) Assessment & Plan: Order CXR today May need steroids, antibiotic if pneumonia. Orders: - XR Chest Pa Lateral 2 Views; Future Allergic rhinitis, unspecified chronicity, unspecified seasonality, unspecified trigger Gastroesophageal reflux disease without esophagitis Assessment & Plan: Increase omeprazole to 40 mg daily. sit upright postprandial avoid fat sugar pork etoh cardiac was ruled out call for any signs of karen bleeding from rectum, dark tarry stools, abdominal pain nausea emesis or po intolerance, prescription sent to pharmacy we discussed at length the risk and benefits if no resolution consult GI May need endoscopy. Malaise and fatigue Mild asthma with acute exacerbation, unspecified whether persistent Assessment & Plan: Using her singulair and inhaler as prescribed. Orders: - XR Chest Pa Lateral 2 Views; Future BMI 31.0-31.9,adult Assessment & Plan: Body mass index is 31.91 kg/m??. BMI Follow-up includes: nutrition counseling, exercise counseling and education provided. Other orders - omeprazole (PriLOSEC) 20 mg capsule; Take 2 capsules (40 mg total) by mouth daily. F OPERATIONS OFFICER documented in this encounter Miscellaneous Notes * Assessment & Plan Note - Jessy Guadarrama NP - 09/23/2017 2:52 PM CSTAssociated Problem(s): BMI 28.0-28.9,adult Body mass index is 31.91 kg/m??. BMI Follow-up includes: nutrition counseling, exercise counseling and education provided. F OPERATIONS OFFICER * Assessment & Plan Note - Jessy Guadarrama NP - 09/23/2017 2:52 PM CSTAssociated Problem(s): Moderate asthma with acute exacerbation Using her singulair and inhaler as prescribed. F OPERATIONS OFFICER * Assessment & Plan Note - Jessy Guadarrama NP - 09/23/2017 2:51 PM CSTAssociated Problem(s): Bronchitis (Resolved 05/13/2018) Order CXR today May need steroids, antibiotic if pneumonia. F OPERATIONS OFFICER * Assessment & Plan Note - Jessy Guadarrama NP - 09/23/2017 2:51 PM CSTAssociated Problem(s): Gastroesophageal reflux disease Increase omeprazole to 40 mg daily. sit upright postprandial avoid fat sugar pork etoh cardiac was ruled out call for any signs of karen bleeding from rectum, dark tarry stools, abdominal pain nausea emesis or po intolerance, prescription sent to pharmacy we discussed at length the risk and benefits if no resolution consult GI May need endoscopy. F OPERATIONS OFFICER documented in this encounter Plan of Treatment Not on file documented as of this encounter Results * XR Chest Pa Lateral 2 Views (09/23/2017 9:10 PM CHIEF OPERATIONS OFFICER) Anatomical Region Laterality Modality Body, Chest N/A Radiographic Ashley ging 09/23/2017 9:10 PM CHIEF OPERATIONS OFFICER Narrative 09/23/2017 9:20 PM CHIEF OPERATIONS OFFICER SHAHLA HER M.D. FINAL REPORT ACC# ??Date Time ??Exam [id number] Sep 23, 2017 15:10:00 [id number] Chest 2[address] Stnd PA/Lat EXAMINATION: ??2 view chest radiograph IMPRESSION: ??The lungs are well expanded without confluent pulmonary infiltrates, suspicious pulmonary nodules, or pleural effusions. There is very mild biapical pleuroparenchymal scarring. The thoracic aorta is tortuous. Compared to the examination of 09/12/2015, there has been no interval change. Electronically signed by: Shahla Her M.D. Requested By: JESSY GUADARRAMA ??F.N.P. ? Dictated By: ?? SHAHLA HER M.D. ??on Sep 23 2017 ??3:18P This document has been electronically signed by: SHAHLA HER M.D. on Sep 23 2017 ??3:18P [id number] [facility] Order ID: [id number] SHAHLA HER M.D. FINAL REPORT Attending: ??THIERRY, ??JESSY Requesting: ??THIERRY, ??JESSY Requesting Fax: ?? Attending Fax: ?? Attending ID: ??[id number] Requesting ID: ??[id number] Report To 1 ID: ??[id number] ? Report To 1 Name: ??, ?? Report To 1 FAX: ?? NextGen Order #: ?? Procedure Note Miscellaneous, Not In File - 09/23/2017 SHAHLA HER M.D. FINAL REPORT ACC# Date Time Exam [id number] Sep 23, 2017 15:10:00 [id number] Chest 2[address]nd PA/Lat EXAMINATION: 2 view chest radiograph IMPRESSION: The lungs are well expanded without confluent pulmonary infiltrates, suspicious pulmonary nodules, or pleural effusions. There is very mild biapical pleuroparenchymal scarring. The thoracic aorta is tortuous. Compared to the examination of 09/12/2015, there has been no interval change. Electronically signed by: Shahla Her M.D. Requested By: JESSY GUADARRAMA Dictated By: SHAHLA HER M.D. on Sep 23 2017 3:18P This document has been electronically signed by: SHAHLA HER M.D. on Sep 23 2017 3:18P [id number] [facility] Order ID: [id number] SHAHLA HER M.D. FINAL REPORT Attending: JESSY GUADARRAMA Requesting: JESSY GUADARRAMA Requesting Fax: Attending Fax: Attending ID: [id number] Requesting ID: [id number] Report To 1 ID: [id number] Report To 1 Name: , Report To 1 FAX: NextGen Order #: Jessy Rossi SAW GRINDER IMG XR PROCEDURES Final Result documented in this encounter Visit Diagnoses Diagnosis Bronchitis- Primary Bronchitis, not specified as acute or chronic Allergic rhinitis, unspecified chronicity, unspecified seasonality, unspecified trigger Gastroesophageal reflux disease without esophagitis Esophageal reflux Malaise and fatigue Mild asthma with acute exacerbation, unspecified whether persistent BMI 31.0-31.9,adult Bronchitis Bronchitis, not specified as acute or chronic Mild asthma with acute exacerbation, unspecified whether persistent documented in this encounter Discontinued Medications Medication Sig Discontinue Reason Start Date End Da te aspirin 81 mg tablet Take 81 mg by mouth daily. 09/23/2017 omeprazole (PriLOSEC) 20 mg capsule TAKE ONE CAPSULE BY MOUTH TWICE A DAY Reorder 04/25/2017 09/23/2017 documented as of this encounter Historical Medications * This list may reflect changes made after this encounter. montelukast (SINGULAIR) 4 mg granules in packet Take 4 mg by mouth nightly. 01/31/2018 added in this encounter Care Teams Hadoop Engineer Relationship Specialty Start Date End Date Santiago Bueno MD [address] [place] [address] PCP - General 11/30/16 06/09/20 [place] [id number] [facility] [address] [place] [address] Rheumatology 07/15/17 documented as of this encounter
--- OUTSIDE RECORDS SUMMARY | 2024-08-29 10:25 | XMS_ITS | Encounter Summary ---
Author Organization [facility] Address [address] [place] [address] Care Team Providers Care Pouch Maker Name Role Phone Santiago Bueno MD Primary Care Provider [phone] Gladis Song MD Unavailable Reason for Visit * Reason Onset Date Comments brown-med question 10/22/2017 Encounter Details Date Type Department Care Team (Late st Contact Info) Description 10/22/2017 Telephone [facility] [address] [place] [address] Santiago Bueno MD [address] [facility] [address] [place] [address] brown-med question Social History Tobacco Use Types Packs/Day Years Used Date Smoking Tobacco: Never Smokeless Tobacco: Never Alcohol Use Standard Drinks/Week Comments No 0 (1 standard drink = 0.6 oz pur e alcohol) Comments Unknown Sex and Gender Information Value Date Recorded Sex Assigned at Not on file Legal Sex Female 12:11 AM CRYPTOLOGIC TECHNICIAN Gender Identity Not on file Sexual Orientation Not on file Occupation Industry Job Start Date Job End Date Retired Not on file Not on file Not on file documented as of this encounter Miscellaneous Notes * Telephone Encounter - Laura Granger MA - 10/22/2017 1:00 PM CST LMOR asking for return call TOLOGIC TECHNICIAN * Telephone Encounter - Laura Granger MA - 10/22/2017 12:57 PM CST Does she need a referral? TOLOGIC TECHNICIAN * Telephone Encounter - Delores Valdez - 10/22/2017 12:32 PM CRYPTOLOGIC TECHNICIAN Patient called stating she was seen yesterday and has not heard back on getting scheduled with GI. Please advise TOLOGIC TECHNICIAN documented in this encounter Plan of Treatment Not on file documented as of this encounter Visit Diagnoses Not on filedocumented in this encounter Care Teams Pouch Maker Relationship Specialty Start Date End Date Santiago Bueno MD [address] [facility] [address] [place] [address] PCP - General 11/30/16 06/09/20 [place] [id number] [facility] [address] [place] [address] Rheumatology 07/15/17 documented as of this encounter
--- OUTSIDE RECORDS SUMMARY | 2024-08-29 10:25 | XMS_ITS | Encounter Summary ---
Author Organization [facility] Address [address] [place] [address] Care Team Providers Care Manager Mail Name Role Phone Santiago Bueno MD Primary Care Provider [phone] Gladis Song MD Unavailable Encounter Details Date Type Department Care Team (Late st Contact Info) Description 09/23/2017 3:01 PM FLOOR TECH - 09/23/2017 11:59 PM [facility] Hospital Encounter [facility] [phone] Santiago Bueno MD [address] [facility] [address] [place], [place] [id number] Jessy Jaeger, FELICIA [address] [facility] [address] [place] [address] Bronchitis; Mild asthma with acute exacerbation, unspecified whether persistent Discharge Disposition: Discharge to home or self care Social History Tobacco Use Types Packs/Day Years Used Date Smoking Tobacco: Never Smokeless Tobacco: Never Alcohol Use Standard Drinks/Week Comments No 0 (1 standard drink = 0.6 oz pur e alcohol) Comments Unknown Sex and Gender Information Value Date Recorded Sex Assigned at Not on file Legal Sex Female 12:11 AM FLOOR TECH Gender Identity Not on file Sexual Orientation Not on file Occupation Industry Job Start Date Job End Date Retired Not on file Not on file Not on file documented as of this encounter Medications at Time of Discharge cholecalciferol (VITAMIN D3) 2,000 unit tablet take 1 by Oral route every day 0 0 11/30/2014 apixaban (ELIQUIS) 5 mg tablet 5 mg. 11/12/2018 atorvastatin (LIPITOR) 80 mg tablet TAKE 1 TABLET EVERY DAY 30 3 05/02/2015 04/04/2018 folic acid (FOLVITE) 1 mg tablet Take 1 tablet (1 mg total) by mouth daily. Take one tab daily 30 tablet 3 09/09/2017 11/21/2017 hydroCHLOROthiaz dona (HYDRODIURIL) 25 mg tablet TAKE 1 TABLET EVERY DAY 90 tablet 1 05/24/2017 11/18/2017 hydroxychloroqui ne (PLAQUENIL) 200 mg tablet TAKE 1 TABLET BY MOUTH EVERY 12 HOURS 180 tablet 07/15/2017 10/22/2017 methotrexate 2.5 mg tablet Take 6 tablets (15 mg total) by mouth once a week. 15 tablet 1 09/09/2017 10/17/2017 metoprolol XL (TOPROL XL) 50 mg 24 hr tablet take 1 tablet by oral route every day 0 0 04/16/2016 06/11/2018 montelukast (SINGULAIR) 10 mg tablet TAKE ONE BY MOUTH ONE TIME PER DAY 30 5 10/17/2006 01/31/2018 montelukast (SINGULAIR) 4 mg granules in packet Take 4 mg by mouth nightly. 01/31/2018 omeprazole (PriLOSEC) 20 mg capsule Take 2 capsules (40 mg total) by mouth daily. 180 capsule 09/23/2017 10/21/2017 PARoxetine (PAXIL) 20 mg tablet Take 20 mg by mouth daily. 2 09/23/2017 04/04/2018 documented as of this encounter Discharge Disposition Disposition Code Departure Means Destination Discharge to home or self care documented in this encounter Plan of Treatment Not on file documented as of this encounter Procedures Procedure Name Priority Date/Time Associated Diagnosis Comments XR CHEST PA LATERAL 2 VIEWS Schedule Routine, Read Routine (OP Routine) 09/23/2017 9:10 PM FLOOR TECH Bronchitis Mild asthma with acute exacerbation, unspecified whether persistent documented in this encounter Results * XR Chest Pa Lateral 2 Views (09/23/2017 9:10 PM FLOOR TECH) Anatomical Region Laterality Modality Body, Chest N/A Radiographic Ashley ging 09/23/2017 9:10 PM FLOOR TECH Narrative 09/23/2017 9:20 PM FLOOR TECH SHAHLA HER M.D. FINAL REPORT ACC# ??Date Time ??Exam [id number] Sep 23, 2017 15:10:00 [id number] PA/Lat EXAMINATION: ??2 view [...] HER M.D. on Sep 23 2017 ??3:18P [id number] [facility] Order ID: [id number] SHAHLA HER M.D. FINAL REPORT Attending: ??THIERRY, ??JESSY Requesting: ??THIERRY, ??JESSY Requesting Fax: ?? Attending Fax: ?? Attending ID: ??[id number] Requesting ID: ??[id number] Report To 1 ID: ??[id number] ? Report To 1 Name: ??, ?? Report To 1 FAX: ?? NextGen Order #: ?? Procedure Note Miscellaneous, Not In File - 09/23/2017 SHAHLA HER M.D. FINAL REPORT ACC# Date Time Exam [id number] Sep 23, 2017 15:10:00 [id number] PA/Lat EXAMINATION: 2 view [...] HER M.D. on Sep 23 2017 3:18P [id number] [facility] Order ID: [id number] SHAHLA HER M.D. FINAL REPORT Attending: JESSY GUADARRAMA Requesting: JESSY GUADARRAMA Requesting Fax: Attending Fax: Attending ID: [id number] Requesting ID: [id number] Report To 1 ID: [id number] Report To 1 Name: , Report To 1 FAX: NextGen Order #: Jessy Rossi AUTOMOTIVE SERVICE MANAGER IMG XR PROCEDURES Final Result documented in this encounter Visit Diagnoses Diagnosis Bronchitis Bronchitis, not specified as acute or chronic Mild asthma with acute exacerbation, unspecified whether persistent documented in this encounter Care Teams Manager Mail Relationship Specialty Start Date End Date Santiago Bueno MD [address] [facility] [address] [place] [address] PCP - General 11/30/16 06/09/20 [place] [address] [facility] [address] [place] [address] Rheumatology 07/15/17 documented as of this encounter
--- OUTSIDE RECORDS SUMMARY | 2024-08-29 10:25 | XMS_ITS | Encounter Summary ---
Author Organization [facility] Address [address] [place] [address] Care Team Providers Care Proj Mgr Name Role Phone Santiago Bueno MD Primary Care Provider [phone] Gladis Song MD Unavailable Reason for Visit * Reason Comments Cough Encounter Details Date Type Department Care Team (Late st Contact Info) Description 10/21/2017 9:00 AM FINANCIAL SYSTEMS DIRECTOR Office Visit [facility] [address] [place] [address] Jessy Jaeger, MANUFACTURING WORKER [address] [place] [address] Gastroesophageal reflux disease without esophagitis (Primary Dx); Bronchitis; BMI 31.0-31.9,adult Social History Tobacco Use Types Packs/Day Years Used Date Smoking Tobacco: Never Smokeless Tobacco: Never Alcohol Use Standard Drinks/Week Comments No 0 (1 standard drink = 0.6 oz pur e alcohol) Comments Unknown Sex and Gender Information Value Date Recorded Sex Assigned at Not on file Legal Sex Female 12:11 AM FINANCIAL SYSTEMS DIRECTOR Gender Identity Not on file Sexual Orientation Not on file Occupation Industry Job Start Date Job End Date Retired Not on file Not on file Not on file documented as of this encounter Last Filed Vital Signs Vital Sign Reading Time Taken Comments Blood Pressure 124/72 10/21/2017 8:49 AM FINANCIAL SYSTEMS DIRECTOR Pulse 84 10/21/2017 8:49 AM FINANCIAL SYSTEMS DIRECTOR Temperature 36.9 ??C (98.4 ??F) 10/21/2017 8:49 AM CS T Respiratory Rate 16 10/21/2017 8:49 AM FINANCIAL SYSTEMS DIRECTOR Oxygen Saturation 95% 10/21/2017 8:49 AM FINANCIAL SYSTEMS DIRECTOR Inhaled Oxygen Concentration - - Weight 72.6 kg (160 lb) 10/21/2017 8:49 AM FINANCIAL SYSTEMS DIRECTOR Height 149.9 cm (4' 11 ) 10/21/2017 8:49 AM FINANCIAL SYSTEMS DIRECTOR Body Mass Index 32.32 10/21/2017 8:49 AM FINANCIAL SYSTEMS DIRECTOR documented in this encounter Patient Instructions * Patient Instructions* Jessy Castellon NP - 10/21/2017 9:00 AM FINANCIAL SYSTEMS DIRECTOR Problem List BMI 31.0-31.9,adult Current Assessment & Plan Body mass index is 32.32 kg/m??. BMI Follow-up includes: nutrition counseling, exercise counseling and education provided. Bronchitis Current Assessment & Plan Resolved. Lungs are clear. Relevant Medications fluticasone (FLOVENT HFA) 110 mcg/actuation inhaler Gastroesophageal reflux disease - Primary (Chronic) Overview ESOPHAGEAL REFLUX Current Assessment & Plan Change the omeprazole to pantoprazole 40 mg daily Order an endoscopy sit upright postprandial avoid fat sugar pork etoh cardiac was ruled out call for any signs of karen bleeding from rectum, dark tarry stools, abdominal pain nausea emesis or po intolerance, prescription sent to pharmacy we discussed at length the risk and benefits if no resolution consult GI Relevant Medications pantoprazole DR (PROTONIX) 40 mg EC tablet Other Relevant Orders Endoscopy, esophagus - NCIAL SYSTEMS DIRECTOR documented in this encounter Ordered Prescriptions Prescription Sig Dispense Quantity Refills Last Filled Start Date End Date pantoprazole DR (PROTONIX) 40 mg EC tablet Take 1 tablet (40 mg total) by mouth daily. 30 tablet 11 10/21/2017 11/17/2018 documented in this encounter Progress Notes * Jessy Castellon NP - 10/21/2017 9:00 AM CST Subjective/Objective Patient ID: Chio Orantes is a 66 y.o. female. Chief Complaint Cough 66 y/o female seen in August for bronchitis. Presents today With a chronic cough that occurs two to three times a day. And at night. Has burning in the throat. She feels the food in her throat and it is burning. Medication and allergies reviewed and updated. Past medical, surgical, family history reviewed and updated. Vital signs and BMI reviewed. Review of Systems Constitutional: Positive for chills and fatigue. HENT: Positive for congestion. Negative for sinus pain and sinus pressure. Respiratory: Positive for cough. Neurological: Positive for headaches. BP 124/72 (BP Location: Right arm, Patient Position: Sitting) Pulse 84 Temp 36.9 ??C (98.4 ??F) Resp 16 Ht 149.9 cm (4' 11 ) Wt 72.6 kg (160 lb) SpO2 95% BMI 32.32 kg/m?? Physical Exam Constitutional: She is oriented to person, place, and time. She appears well- developed and well-nourished. HENT: Head: Normocephalic. Eyes: Conjunctivae and EOM are normal. Pupils are equal, round, and reactive to light. Neck: Normal range of motion. Neck supple. Cardiovascular: Normal rate, regular rhythm, normal heart sounds and intact distal pulses. Pulmonary/Chest: Effort normal and breath sounds normal. [...] this visit: Gastroesophageal reflux disease without esophagitis (Primary) Assessment & Plan: Change the omeprazole to pantoprazole 40 mg daily Order an endoscopy sit upright postprandial avoid fat sugar pork etoh cardiac was ruled out call for any signs of karen bleeding from rectum, dark tarry stools, abdominal pain nausea emesis or po intolerance, prescription sent to pharmacy we discussed at length the risk and benefits if no resolution consult GI Orders: - Endoscopy, esophagus -; Future Bronchitis Assessment & Plan: Resolved. Lungs are clear. BMI 31.0-31.9,adult Assessment & Plan: Body mass index is 32.32 kg/m??. BMI Follow-up includes: nutrition counseling, exercise counseling and education provided. Other orders - pantoprazole DR (PROTONIX) 40 mg EC tablet; Take 1 tablet (40 mg total) by mouth daily. NCIAL SYSTEMS DIRECTOR documented in this encounter Miscellaneous Notes * Assessment & Plan Note - Jessy Castellon NP - 10/21/2017 9:29 AM CSTAssociated Problem(s): Bronchitis (Resolved 05/13/2018) Resolved. Lungs are clear. NCIAL SYSTEMS DIRECTOR * Assessment & Plan Note - Jessy Castellon NP - 10/21/2017 9:28 AM CSTAssociated Problem(s): BMI 28.0-28.9,adult Body mass index is 32.32 kg/m??. BMI Follow-up includes: nutrition counseling, exercise counseling and education provided. NCIAL SYSTEMS DIRECTOR * Assessment & Plan Note - Jessy Castellon NP - 10/21/2017 9:28 AM CSTAssociated Problem(s): Gastroesophageal reflux disease Change the omeprazole to pantoprazole 40 mg daily Order an endoscopy sit upright postprandial avoid fat sugar pork etoh cardiac was ruled out call for any signs of karen bleeding from rectum, dark tarry stools, abdominal pain nausea emesis or po intolerance, prescription sent to pharmacy we discussed at length the risk and benefits if no resolution consult GI NCIAL SYSTEMS DIRECTOR documented in this encounter Plan of Treatment Not on file documented as of this encounter Visit Diagnoses Diagnosis Gastroesophageal reflux disease without esophagitis- Primary Esophageal reflux Bronchitis Bronchitis, not specified as acute or chronic BMI 31.0-31.9,adult documented in this encounter Discontinued Medications Medication Sig Discontinue Reason Start Date End Da te omeprazole (PriLOSEC) 20 mg capsule Take 2 capsules (40 mg total) by mouth daily. Dose adjustment 09/23/2017 10/21/2017 documented as of this encounter Historical Medications * This list may reflect changes made after this encounter. fluticasone (FLOVENT HFA) 110 mcg/actuation inhaler Inhale 1 puff 2 (two) times a day. Rinse mouth with water after use to reduce aftertaste and incidence of candidiasis. Do not swallow. 8 PARoxetine (PAXIL) 20 mg tablet Take 20 mg by mouth daily. 2 09/23/2017 8 added in this encounter Care Teams Proj Mgr Relationship Specialty Start Date End Date Santiago Bueno MD [address] [facility] [address] [place] [address] PCP - General 11/30/16 06/09/20 [place] [id number] [facility] [address] [place] [address] Rheumatology 07/15/17 documented as of this encounter
--- OUTSIDE RECORDS SUMMARY | 2024-08-29 10:25 | XMS_ITS | Encounter Summary ---
Author Organization [facility] Address [address] [place] [phone] Phone Care Team Providers Care Lead Pl Sql Developer Name Role Phone Santiago Bueno MD Primary Care Provider [phone] Gladis Song MD Unavailable Reason for Visit * Reason Onset Date Comments Shortness of Breath 10/18/2017 Encounter Details Date Type Department Care Team (Late st Contact Info) Description 10/18/2017 Nurse Triage [facility] [address] [facility] [place] [address] Santiago Bueno MD [address] [facility] [address] [place] [address] Social History Tobacco Use Types Packs/Day Years Used Date Smoking Tobacco: Never Smokeless Tobacco: Never Alcohol Use Standard Drinks/Week Comments No 0 (1 standard drink = 0.6 oz pur e alcohol) Comments Unknown Sex and Gender Information Value Date Recorded Sex Assigned at Not on file Legal Sex Female 12:11 AM CLINICAL PRODUCT MANAGER Gender Identity Not on file Sexual Orientation Not on file Occupation Industry Job Start Date Job End Date Retired Not on file Not on file Not on file documented as of this encounter Miscellaneous Notes * Telephone Encounter - Renita Millan RN - 10/18/2017 12:59 PM CLINICAL PRODUCT MANAGER Reason for Disposition ? ? Cough has been present for > 10 days Protocols used: [id number] S=COUGHING SPELLS B=Patient has been having episodes where she will eat something and then have coughing spells. She discussed with Tiffanie at last visit and she thinks it is a problem with her esophagus and she might have to have an endoscopy. Patient wants to see Tiffanie about this. A=DISPOSITION PER GUIDELINE=SEE WITHIN 3 DAYS IN OFFICE - Scheduled with Tiffanie for Saturday. R=[facility]OMECARE/SELFCARE instructions given, verbalized understanding ICAL PRODUCT MANAGER * Telephone Encounter - Renita Millan RN - 10/18/2017 12:56 PM CLINICAL PRODUCT MANAGER Regarding: Esophagus problems, experiences choking shortly after eating, shortness of breath ----- Message from Judith Tse sent at 10/18/2017 12:54 PM CLINICAL PRODUCT MANAGER ----- Symptom Based Call Chief Complaint: Esophagus problems, experiences choking shortly after eating, shortness of breath Duration: Appointment Details: Red flag Additional Comments: Patient states during last office visit, she saw HANDICRAFTS TEACHER. HANDICRAFTS TEACHER advised she increase her stomach medication for acid reflux to 2 pills per day, but its not working. Also, patient was advised to follow up with Dr. Bueno as he may recommend a scope ICAL PRODUCT MANAGER documented in this encounter Plan of Treatment Not on file documented as of this encounter Visit Diagnoses Not on filedocumented in this encounter Care Teams Lead Pl Sql Developer Relationship Specialty Start Date End Date Santiago Bueno MD [address] [facility] [address] [place] [address] PCP - General 11/30/16 06/09/20 [place] [id number] [facility] [address] [place] [address] Rheumatology 07/15/17 documented as of this encounter
--- OUTSIDE RECORDS SUMMARY | 2024-08-29 10:25 | XMS_ITS | Encounter Summary ---
Author Organization [facility] Address [address] [place] [phone] Phone Care Team Providers Care Setup Technician Name Role Phone Santiago Bueno MD Primary Care Provider [phone] Gladis Song MD Unavailable Encounter Details Date Type Department Care Team (Late st Contact Info) Description 09/13/[address] [address] Frances Cook Social History Tobacco Use Types Packs/Day Years Used Date Smoking Tobacco: Never Smokeless Tobacco: Never Alcohol Use Standard Drinks/Week Comments No 0 (1 standard drink = 0.6 oz pur e alcohol) Comments Unknown Sex and Gender Information Value Date Recorded Sex Assigned at Not on file Legal Sex Female 12:11 AM AIR TRAFFIC CONTROL SUPERVISOR Gender Identity Not on file Sexual Orientation Not on file Occupation Industry Job Start Date Job End Date Retired Not on file Not on file Not on file documented as of this encounter Miscellaneous Notes * Telephone Encounter - Frances Cook - 09/13/2017 2:01 PM CST ----- Message from PITO Méndez sent at 09/13/2017 1:01 PM AIR TRAFFIC CONTROL SUPERVISOR ----- Liver function test was a little high. Please have her repeat in two weeks. (not on a day she takesmtx or the day after). Lab order generated and mailed. TRAFFIC CONTROL SUPERVISOR TRAFFIC CONTROL SUPERVISOR documented in this encounter Plan of Treatment Not on file documented as of this encounter Visit Diagnoses Diagnosis Elevated liver enzymes- Primary Other nonspecific abnormal serum enzyme levels documented in this encounter Care Teams Setup Technician Relationship Specialty Start Date End Date Santiago Bueno MD [address] [facility] [facility] [address] [place] [address] PCP - General 11/30/16 06/09/20 [place] [id number] [facility] [address] [place] [address] Rheumatology 07/15/17 documented as of this encounter
--- OUTSIDE RECORDS SUMMARY | 2024-08-29 10:25 | XMS_ITS | Encounter Summary ---
Author Organization [facility] Address [address] [facility] [address] [place] [address] Care Team Providers Care Cooler Room Worker Name Role Phone Santiago Bueno MD Primary Care Provider [phone] Gladis Song MD Unavailable Reason for Visit * Reason Onset Date Comments Dr. Bueno-Test results 08/19/2017 Encounter Details Date Type Department Care Team (Late st Contact Info) Description 08/19/2017 Telephone [facility] [address] [facility] [address] [place] [address] Santiago Bueno MD [address] [facility] [address] [place] [address] Dr. Bueno-Test results Social History Tobacco Use Types Packs/Day Years Used Date Smoking Tobacco: Never Smokeless Tobacco: Never Alcohol Use Standard Drinks/Week Comments No 0 (1 standard drink = 0.6 oz pur e alcohol) Comments Unknown Sex and Gender Information Value Date Recorded Sex Assigned at Not on file Legal Sex Female 12:11 AM HEALTH CARE ANALYST Gender Identity Not on file Sexual Orientation Not on file Occupation Industry Job Start Date Job End Date Retired Not on file Not on file Not on file documented as of this encounter Miscellaneous Notes * Telephone Encounter - Laura Granger MA - 08/20/2017 1:26 PM CST Called patient, informed of [facility] message TH CARE ANALYST * Telephone Encounter - aTtum Benito NP - 08/20/2017 11:45 AM HEALTH CARE ANALYST Call patient and let her know her labs are normal. It just may be her recovering from the virus. Ifher coughing is getting worse or if she is developing shortness of breath, wheezing or fever she should come back to the office for an appointment. TH CARE ANALYST * Telephone Encounter - Valerie Simental - 08/19/2017 1:12 PM CST See message TH CARE ANALYST * Telephone Encounter - Merissa Shipman - 08/19/2017 1:01 PM CST Test Result- Not Present: Type of test: Labs Date of test: 08.16.17 Where test was performed: office Additional Questions/Comments: Patient says she is still feeling extremely fatigued and is asking for lab results to determine if it's due to low potassium and/or bronchitis. TH CARE ANALYST documented in this encounter Plan of Treatment Not on file documented as of this encounter Visit Diagnoses Not on filedocumented in this encounter Care Teams Cooler Room Worker Relationship Specialty Start Date End Date Santiago Bueno MD [address] [facility] [address] [place] [address] PCP - General 11/30/16 06/09/20 [place] [id number] [facility] [address] [place] [address] Rheumatology 07/15/17 documented as of this encounter
--- OUTSIDE RECORDS SUMMARY | 2024-08-29 10:26 | XMS_ITS | Encounter Summary ---
Author Organization [facility] Facility Care Team Providers Care Continuous Linter Drier Operator Name Role Phone Santiago Bueno MD Primary Care Provider [phone] Encounter Details Date Type Department Care Team (Latest Contact Info) Description 10/10/2016 1:24 PM MOTORCYCLE DESIGNER - 10/10/2016 11:[address] [facility] Hospital Encounter [facility] Lucrecia Gallegos MD [address] [place] [address] Encounter for preprocedural laboratory examination; Trigger middle finger of right hand; Trigger ring finger of right hand; Trigger little finger of right hand; Essential (primary) hypertension; Uncomplicated asthma; Nonrheumatic aortic valve insufficiency; Nonrheumatic mitral valve insufficiency; Other sequelae of cerebral infarction; Other disturbances of skin sensation; Obstructive sleep apnea; Gastro-esophageal reflux disease without esophagitis; Hyperlipidemia; Systemic lupus erythematosus (CMS/HCC); Atrial septal defect; Restless legs syndrome; Osteoarthritis; Family history of stroke; senior care current use of anticoagulant; 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 Social History Tobacco Use Types Packs/Day Years Used Date Smoking Tobacco: Never Alcohol Use Standard Drinks/Week Comments No 0 (1 standard drink = 0.6 oz pur e alcohol) Comments Unknown Sex and Gender Information Value Date Recorded Sex Assigned at Not on file Legal Sex Female 12:11 AM MOTORCYCLE DESIGNER Gender Identity Not on file Sexual Orientation Not on file documented as of this encounter Last Filed Vital Signs Vital Sign Reading Time Taken Comments Blood Pressure - - Pulse - - Temperature - - Respiratory Rate - - Oxygen Saturation - - Inhaled Oxygen Concentration - - Weight - - Height 162.6 cm (5' 4 ) 04/25/2015 7:19 AM CDT Body Mass Index - - documented in this encounter Medications at Time of Discharge cholecalciferol (VITAMIN D3) 2,000 unit tablet take 1 by Oral route every day 0 0 11/30/2014 acetaminophen (TYLENOL) 325 mg tablet take 2 tablet by oral route every 6 hours as needed for mild pain 0 0 03/26/2016 7 albuterol HFA (PROAIR HFA) 90 mcg/actuation inhaler INHALE 2 PUFFS EVERY 4-6 HOURS NEEDED 18 Inhaler 5 08/31/2013 7 albuterol HFA (PROAIR HFA) 90 mcg/actuation inhaler INHALE 2 PUFFS EVERY 4-6 HOURS NEEDED 8.5 5 08/31/2013 7 apixaban (ELIQUIS) 5 mg tablet take 1 tablet by oral route 2 times every day 0 0 04/16/2016 7 apixaban (ELIQUIS) 5 mg tablet take 1 tablet by oral route 2 times every day 0 0 10/04/2016 7 atorvastatin (LIPITOR) 20 mg tablet take 1 tablet by oral route every day 0 0 02/06/2016 7 atorvastatin (LIPITOR) 80 mg tablet TAKE 1 TABLET EVERY DAY 30 3 05/02/2015 8 cholecalciferol (cholecalciferol ) 1,000 unit tablet take 1 by Oral route every 2 days 0 0 03/26/2016 7 hydroCHLOROthiaz dona (HYDRODIURIL) 25 mg tablet TAKE 1 TABLET EVERY DAY 90 1 10/21/2006 7 hydroCHLOROthiaz dona (HYDRODIURIL) 25 mg tablet TAKE 1 TABLET EVERY DAY 90 3 10/21/2006 7 hydroxychloroqui ne (PLAQUENIL) 200 mg tablet take 1 tablet by ORAL route every 12 hours 0 0 03/26/2016 7 hydroxychloroqui ne (PLAQUENIL) 200 mg tablet TAKE 1 TABLET BY MOUTH EVERY 12 HOURS 180 1 05/04/2014 7 metoprolol XL (TOPROL XL) 25 mg 24 hr tablet take 1 tablet by oral route every day 0 0 05/04/2014 7 metoprolol XL (TOPROL XL) 50 mg 24 hr tablet take 1 tablet by oral route every day 0 0 04/16/2016 8 montelukast (SINGULAIR) 10 mg tablet TAKE 1 TABLET BY MOUTH ONCE DAILY 30 5 10/17/2006 7 montelukast (SINGULAIR) 10 mg tablet TAKE ONE BY MOUTH ONE TIME PER DAY 30 5 10/17/2006 8 omeprazole (PriLOSEC) 10 mg capsule take 2 capsule by oral route every day before a meal 0 0 05/04/2014 7 omeprazole (PriLOSEC) 20 mg capsule TAKE ONE CAPSULE BY MOUTH TWICE A DAY 180 0 10/17/2006 7 omeprazole OTC (PriLOSEC OTC) 20 mg EC tablet take 1 by Oral route every day 0 0 04/09/2016 7 PARoxetine (PAXIL) 10 mg tablet take 2 tablet by oral route every day 0 0 03/26/2016 7 PARoxetine (PAXIL) 20 mg tablet TAKE 1 TABLET BY MOUTH EVERY DAY 30 2 10/17/2006 7 PARoxetine (PAXIL) 20 mg tablet take 1 tablet by oral route every day 0 0 05/04/2014 7 tetrahydrozoline -peg (LUBRICANT REDNESS RELIEVER) 0.05-1 % drops instill 1 drop by ophthalmic route PRN for allergies 0 0 03/26/2016 7 documented as of this encounter Plan of Treatment Not on file documented as of this encounter Procedures Procedure Name Priority Date/Time Associated Diagnosis Comments PLASMA BASIC METABOLIC PANEL Routine 10/10/2016 3:14 PM MOTORCYCLE DESIGNER BLOOD CELL COUNT (CBC) Routine 10/10/2016 3:14 PM MOTORCYCLE DESIGNER BLOOD CELL MORPHOLOGIC EXAM Routine 10/10/2016 3:14 PM MOTORCYCLE DESIGNER DISCHARGE LABORATORY CUMULATIVE REPORT 10/10/2016 documented in this encounter Results * (ABNORMAL) Plasma basic metabolic panel (10/10/2016 3:14 PM MOTORCYCLE DESIGNER) Sodium 139 135 - 145 mmol/L CDR HISTORICAL RESULTS K, pl 4.1 3.3 - 4.9 mmol/L CDR HISTORICAL RESULTS Chloride 100 97 - 110 mmol/L CDR HISTORICAL RESULTS CO2 33(H) 22 - 32 mmol/L CDR HISTORICAL RESULTS BUN 17 8 - 25 mg/dl CDR HISTORICAL RESULTS Glucose 91 70 - 199 mg/dl CDR HISTORICAL RESULTS Creatinine 0.74 0.60 - 1.10 mg/dl CDR HISTORICAL RESULTS Calcium 9.7 8.5 - 10.3 mg/dl CDR HISTORICAL RESULTS A. gap 6 2 - 15 mmol/L CDR HISTORICAL RESULTS Plasma 10/10/2016 3:14 PM MOTORCYCLE DESIGNER Jaclyn Willis ACCESS CONTROL OFFICER LAB BLOOD ORDERABLES Callie wong Result CDR HISTORICAL RESULTS * Blood cell count (CBC) (10/10/2016 3:14 PM MOTORCYCLE DESIGNER) WBC 5.7 3.8 - 9.9 K/cumm CDR HISTORICAL RESULTS RBC 4.98 3.90 - 5.20 M/cumm CDR HISTORICAL RESULTS Hgb 14.2 11.9 - 15.5 g/dl CDR HISTORICAL RESULTS Hct 43.6 35.6 - 45.5 % CDR HISTORICAL RESULTS MCV 87.6 81.3 - 96.4 fl CDR HISTORICAL RESULTS MCH 28.5 27.1 - 33.3 pg CDR HISTORICAL RESULTS MCHC 32.6 32.3 - 35.7 g/dl CDR HISTORICAL RESULTS Rdw 14.1 11.1 - 14.9 % CDR HISTORICAL RESULTS RDW 44.9 35.7 - 48.1 fl CDR HISTORICAL RESULTS Platelets 225 150 - 400 K/cumm CDR HISTORICAL RESULTS MPV 10.0 9.1 - 12.3 fl CDR HISTORICAL RESULTS NRBC 0.0 0.0 - 0.2 % CDR HIST ORICAL RESULTS NRBC, abs 0.00 0.00 - 0.01 K/cumm CDR HISTORICAL RESULTS Blood specimen (specimen) 10/10/2016 3:14 PM MOTORCYCLE DESIGNER Jaclyn Helenmegan Willis ACCESS CONTROL OFFICER LAB BLOOD ORDERABLES Callie l Result CDR HISTORICAL RESULTS * Blood cell morphologic exam (10/10/2016 3:14 PM MOTORCYCLE DESIGNER) Neutrophils 60.4 % CDR HIST ORICAL RESULTS Eosinophils, abs 0.2 0.0 - 0.5 K/cumm CDR HISTORICAL RESULTS Immature granulocytes 0.2 % CDR HISTORICAL RESULTS Basophils, abs 0.1 0.0 - 0.1 K/cumm CDR HISTORICAL RESULTS Lymphocytes 26.5 % CDR HIST ORICAL RESULTS Monos 8.3 % CDR HISTOR ICAL RESULTS Eosinophils 3.5 % CDR HIST ORICAL RESULTS Basophils 1.1 % CDR HISTOR ICAL RESULTS Neutrophils, abs 3.4 1.7 - 6.5 K/cumm CDR HISTORICAL RESULTS Immature granulocyte, abs 0.0 0.0 - 0.1 K/cumm CDR HISTORICAL RESULTS Lymphocytes, abs 1.5 0.8 - 3.3 K/cumm CDR HISTORICAL RESULTS Monocytes, absolute 0.5 0.2 - 0.8 K/cumm CDR HISTORICAL RESULTS Blood specimen (specimen) 10/10/2016 3:14 PM MOTORCYCLE DESIGNER Result [facility] Jaclyn Willis NP LAB BLOOD ORDERABLES Callie l Result Performing Organization Address [facility] Co de Phone Number CDR HISTORICAL RESULTS * DISCHARGE LABORATORY CUMULATIVE REPORT (10/10/2016) Narrative 10/10/2016 Ordered by an unspecified provider. Historical Provider LAB BLOOD ORDERABLES Callie l Result documented in this encounter Visit Diagnoses Diagnosis Encounter for preprocedural laboratory examination Trigger middle finger of right hand Trigger ring finger of right hand Trigger little finger of right hand Essential (primary) hypertension Unspecified essential hypertension Uncomplicated asthma Nonrheumatic aortic valve insufficiency Nonrheumatic mitral valve insufficiency Other sequelae of cerebral infarction Other disturbances of skin sensation Obstructive sleep apnea Obstructive sleep apnea (adult) (pediatric) Gastro-esophageal reflux disease without esophagitis Hyperlipidemia Other and unspecified hyperlipidemia Systemic lupus erythematosus (CMS/HCC) (HCC) Systemic lupus erythematosus Atrial septal defect Ostium secundum type atrial septal defect Restless legs syndrome Restless legs syndrome (RLS) Osteoarthritis Osteoarthrosis, unspecified whether generalized or localized, unspecified site Family history of stroke Family history of stroke (cerebrovascular) senior care current use of anticoagulant 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
--- OUTSIDE RECORDS SUMMARY | 2024-08-29 10:26 | XMS_ITS | Encounter Summary ---
Author Organization [facility] Address [address] [place] [phone] Phone Care Team Providers Care Travel Registered Nurse Nicu Name Role Phone Santiago Bueno MD Primary Care Provider [phone] Gladis Song MD Unavailable Reason for Visit * Reason Comments Lupus Encounter Details Date Type Department Care Team (Late st Contact Info) Description 07/29/2017 11:00 AM RIGGER Office Visit [facility] [address] [place] [address] Katy Prescott, [place] [address] [facility] [address] [place] [address] Other forms of systemic lupus erythematosus, unspecified organ involvement status (CMS/HCC) (Primary Dx); custodial use of drug Social History Tobacco Use Types Packs/Day Years Used Date Smoking Tobacco: Never Smokeless Tobacco: Never Alcohol Use Standard Drinks/Week Comments No 0 (1 standard drink = 0.6 oz pur e alcohol) Comments Unknown Sex and Gender Information Value Date Recorded Sex Assigned at Not on file Legal Sex Female 12:11 AM RIGGER Gender Identity Not on file Sexual Orientation Not on file Occupation Industry Job Start Date Job End Date Retired Not on file Not on file Not on file documented as of this encounter Last Filed Vital Signs Vital Sign Reading Time Taken Comments Blood Pressure 130/80 07/29/2017 10:51 AM RIGGER Pulse 76 07/29/2017 10:51 AM RIGGER Temperature - - Respiratory Rate - - Oxygen Saturation - - Inhaled Oxygen Concentration - - Weight 73 kg (161 lb) 07/29/2017 10:51 AM RIGGER Height 149.9 cm (4' 11 ) 07/29/2017 10:51 AM RIGGER Body Mass Index 32.52 07/29/2017 10:51 AM RIGGER documented in this encounter Ordered Prescriptions Prescription Sig Dispense Quantity Refills Last Filled Start Date End Date folic acid (FOLVITE) 1 mg tablet Take 1 tablet (1 mg total) by mouth daily. Take one tab daily 30 tablet 3 07/29/2017 7 methotrexate 2.5 mg tablet Take 3 tablets (7.5 mg total) by mouth once a week. 15 tablet 1 07/29/2017 8 documented in this encounter Progress Notes * Katy Ball PA - 07/29/2017 11:00 AM CST Images from the original note were not included. Subjective/Objective Patient ID: Chio Orantes is a 66 y.o. female. Chief Complaint Lupus Patient states that she does get very stiff in the morning. She is stiff for about a couple of hours. She complains of worsening joint pain and stiffness. She continues to have trigger finger in the left hand. She complains of worsening swelling. Complains of very dry lips. Review of Systems Constitutional: Negative for activity change, fatigue and fever. HENT: Negative for mouth sores. Eyes: Negative for pain. Respiratory: Negative for shortness of breath and wheezing. Cardiovascular: Negative for chest pain. Gastrointestinal: Negative for abdominal pain. Musculoskeletal: Positive for arthralgias. Negative for joint swelling. Skin: Negative for rash. Vitals: Vitals: 07/29/17 1051 BP: 130/80 Pulse: 76 Physical Exam Constitutional: She is oriented to [...] Labs Lab Results Component Value Date WBC 5.6 04/24/2017 HGB 13.8 04/24/2017 HCT 42.0 04/24/2017 MCV 86.2 04/24/2017 Lab Results Component Value Date GLUCOSE 79 04/24/2017 CALCIUM 9.4 04/24/2017 SODIUM 143 04/24/2017 POTASSIUM 3.9 04/24/2017 CO2 33 (H) 04/24/2017 CHLORIDE 102 04/24/2017 BUNSER 21 04/24/2017 CREATININE 0.73 04/24/2017 Lab Results Component Value Date ALT 25 04/24/2017 AST 25 04/24/2017 ALKPHOS 86 04/24/2017 BILITOT 0.4 04/24/2017 Lab Results Component Value Date SEDRATE 5 04/24/2017 Lab Results Component Value Date CRP <0.10 04/24/2017 DsDNA: 14 Complement proteins (normal) Assessment/Plan Diagnoses and all orders for this visit: Other forms of systemic lupus erythematosus, unspecified organ involvement status ([facility]) (Primary) Assessment & Plan: Patient disease activity [...] Discussed that while patient is on this medicationit is best to avoid ETOH and have routine blood work to monitor the liver. Will check routine labs today. 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 Other orders - methotrexate 2.5 mg tablet; Take 3 tablets (7.5 mg total) by mouth once a week. - folic acid (FOLVITE) 1 mg tablet; Take 1 tablet (1 mg total) by mouth daily. Take one tab daily Cosigned by Gladis Song MD at 07/31/2017 12:06 PM RIGGER ER ER * Katy Ball PA - 07/29/2017 11:00 AM CST Trace RBC in urine. DsDNA a little elevated will repeat labs at next OV. ER documented in this encounter Miscellaneous Notes * Assessment & Plan Note - Katy Ball PA - 07/29/2017 12:51 PM RIGGER Associated Problem(s): Therapeutic drug monitoring (Resolved 06/30/2019) Will continue to monitor the patient with routine labs. ER * Assessment & Plan Note - Katy Ball PA - 07/29/2017 12:00 PM RIGGER Associated Problem(s): Systemic lupus erythematosus (CMS/HCC) (HCC) [...] Discussed that while patient is on this medicationit is best to avoid ETOH and have routine blood work to monitor the liver. Will check routine labs today. ER ER documented in this encounter Plan of Treatment Not on file documented as of this encounter Procedures Procedure Name Priority Date/Time Associated Diagnosis Comments C4 COMPLEMENT Routine 07/29/2017 12:50 PM RIGGER ANTI-DOUBLE STRANDED DNA ANTIBODIES Routine 07/29/2017 12:50 PM RIGGER URINALYSIS AND REFLEX TO MICROSCOPIC AND CULTURE Routine 07/29/2017 12:50 PM RIGGER CBC WITH AUTO DIFFERENTIAL Routine 07/29/2017 12:50 PM RIGGER PROTEIN / CREATININE RATIO, URINE, RANDOM Routine 07/29/2017 12:50 PM RIGGER Other forms of systemic lupus erythematosus, unspecified organ involvement status (CMS/HCC) ERYTHROCYTE SEDIMENTATION RATE Routine 07/29/2017 12:50 PM RIGGER C3 COMPLEMENT Routine 07/29/2017 12:50 PM RIGGER CRP (ACUTE PHASE) Routine 07/29/2017 12: 50 PM RIGGER COMPREHENSIVE METABOLIC PANEL Routine 07/29/2017 12:50 PM RIGGER documented in this encounter Results * CRP (acute phase) (07/29/2017 12:50 PM RIGGER) C-RP 0.4 <8.0 mg/L [facility] [place] 07/29/2017 12:5 0 PM RIGGER 07/29/2017 12:51 PM RIGGER Narrative Resulting Agency Comment Performing Organization Information: ?Site ID: [place] ?Name: [facility] ?Address: [address] [place] [id number] ?Director: Sukhdev Beverly D.O., MPH Katy [facility] ORDERABLES Final Result [facility] [place], [place] * C4 complement (07/29/2017 12:50 PM RIGGER) Complement component C4C 18 16 - 47 mg/dL [facility] [place] 07/29/2017 12:5 0 PM RIGGER 07/29/2017 12:51 PM RIGGER Narrative Resulting Agency Comment Performing Organization Information: ?Site ID: [place] ?Name: [facility] ?Address: [facility] [place] [address] ?Director: Sukhdev Beverly D.O., MPH Katy [facility]LO[facility] ORDERABLES Final Result Performing Organization Address [facility] de Phone Number VICTOR M [place] * C3 complement (07/29/2017 12:50 PM RIGGER) Complement component C3C 115 90 - 180 mg/dL [facility] 07/29/2017 12:5 0 PM RIGGER 07/29/2017 12:51 PM RIGGER Narrative Resulting Agency Comment Performing Organization Information: ?Site ID: [place] ?Name: [facility] Smith ?Address: [facility] [place] [address] ?Director: Sukhdev Beverly D.O., MPH Katy [facility]LO[facility] ORDERABLES Final Result Performing Organization Address [facility] de Phone Number VICTOR M Alatorre * (ABNORMAL) ds DNA (07/29/2017 12:50 PM RIGGER) Pathologist [facility] DNA (DS) ab 14(H) IU/mL [facility] DOW Comment: ? IU/mL ? Interpretation ? < or = 4 ?Negative ? 5-9 ? Indeterminate ? > or = 10 ?? Positive 07/29/2017 12:5 0 PM RIGGER 07/29/2017 12:51 PM RIGGER Narrative Resulting Agency Comment Performing Organization Information: ?Site ID: [place] ?Name: [facility] ?Address: [address] [place] [address] ?Director: Sukhdev Beverly D.O., MPH us Katy [facility]LO[facility] ORDERABLES Final Result [facility] [place] * CBC with auto differential (07/29/2017 12:50 PM RIGGER) WBC 6.7 3.8 - 10.8 Thousand/ uL [facility] [place] RBC, POC 4.80 3.80 - 5.10 Million/u L [facility] [place] Hgb 13.5 11.7 - 15.5 g/dL [facility] [place] Hct 41.4 35.0 - 45.0 % [facility] [place] MCV 86.3 80.0 - 100.0 fL [facility] [place] MCH 28.1 27.0 - 33.0 pg [facility] [place] MCHC 32.6 32.0 - 36.0 g/dL [facility] [place] Rdw 13.4 11.0 - 15.0 % [facility] [place] Platelets 229 140 - 400 Thousand/ uL [facility] [place] MPV 10.1 7.5 - 12.5 fL [facility] [place] Neutrophils, abs 2,961 1,500 - 7,800 cells/uL [facility] [place] Neutrophil bands, abs CANCELED 0 - 750 cells/uL [facility] [place] Comment:Result canceled by t he ancillary Metamyelocytes, abs CANCELED 0 cells/uL [facility] [place] Comment:Result canceled by t he ancillary Absolute Myelocytes CANCELED 0 cells/uL [facility] [place] Comment:Result canceled by t he ancillary Promyelocytes, abs CANCELED 0 cells/uL [facility] [place] Comment:Result canceled by t he ancillary Lymphocytes, abs 2,533 850 - 3,900 cells/uL [facility] [place] Monocyte abs 737 200 - 950 cells/uL [facility] [place] Eosinophils, abs 382 15 - 500 cells/uL [facility] [place] Basophils, abs 87 0 - 200 cells/uL [facility] [place] Blast, cell CANCELED 0 cells/uL [facility] [place] Comment:Result canceled by t he ancillary NRBC abs CANCELED 0 cells/uL [facility] [place] Comment:Result canceled by t he ancillary Neutrophils 44.2 % [facility] [place] Neutrophilic bands CANCELED % [facility] [place] Comment:Result canceled by t he ancillary Metamyelocyte pct CANCELED % [facility] [place] Comment:Result canceled by t he ancillary Myelocyte pct CANCELED % [facility] [place] Comment:Result canceled by t he ancillary Promyelocyte pct CANCELED % [facility] [place] Comment:Result canceled by t he ancillary Lymphocyte pct 37.8 % [facility] [place] Reactive lymph CANCELED 0 - 10 % [facility] [place] Comment:Result canceled by t he ancillary Monocytes 11.0 % [facility] [place] Eosinophils 5.7 % [facility] [place] Basophils 1.3 % [facility] [place] Blast pct CANCELED % [facility] [place] Comment:Result canceled by t he ancillary NRBC CANCELED 0 /100 WBC [facility] [place] Comment:Result canceled by t he ancillary Comment CANCELED [facility] [place] Comment:Result canceled by t he ancillary 07/29/2017 12:5 0 PM RIGGER 07/29/2017 12:51 PM RIGGER Narrative Resulting Agency Comment Performing Organization Information: ?Site ID: [place] ?Name: [facility] ?Address: [address] [place] [address] [place] [address] ?Director: Sukhdev Beverly D.O., MPH us Katy [facility]LOOD ORDERABLES Final Result [facility] [place] * (ABNORMAL) Urinalysis reflex to microscopic and culture (07/29/2017 12:50 PM RIGGER) Color, ur YELLOW YELLOW [facility] [place] Appearance, ur CLEAR CLEAR [facility] [place] Specific gravity 1.022 1.001 - 1.035 [facility] [place] pH, ur 6.0 5.0 - 8.0 [facility] [place] Glucose, ur NEGATIVE NEGATIVE [facility] [place] Reducing substances CANCELED NEGATIVE % [facility] [place] Comment:Result canceled by t he ancillary Bilirubin, ur NEGATIVE NEGATIVE [facility] [place] Ketones, ur NEGATIVE NEGATIVE [facility] [place] Blood, ur TRACE(A) NEGATIVE [facility] [place] Protein, ur, quant NEGATIVE NEGATIVE [facility] [place] Nitrites, ur NEGATIVE NEGATIVE [facility] [place] Leukocyte esterase, ur NEGATIVE NEGATIVE [facility] [place] WBC, ur 0-5 < OR = 5 /HPF [facility] [place] RBC, ur 10-20(A) < OR = 2 /HPF [facility] [place] Epithelial cells, squamous, ur 0-5 < OR = 5 /HPF [facility] [place] Epithelial cells, transitional CANCELED < OR = 5 /HPF [facility] [place] Comment:Result canceled by t he ancillary Epithelial cells, renal, ur CANCELED < OR = 3 /HPF [facility] [place] Comment:Result canceled by t he ancillary Bacteria, ur, quant NONE SEEN NONE SEEN /HPF [facility] [place] Calcium oxalate crystals, ur CANCELED NONE OR FEW /HPF [facility] [place] Comment:Result canceled by t he ancillary Triple phosphate crystals, ur CANCELED NONE OR FEW /HPF [facility] [place] Comment:Result canceled by t he ancillary Uric acid crystals, ur CANCELED NONE OR FEW /HPF [facility] [place] Comment:Result canceled by t he ancillary Amorphous crystals, ur CANCELED NONE OR FEW /HPF [facility] [place] Comment:Result canceled by t he ancillary Crystals, ur CANCELED NONE SEEN /HPF [facility] [place] Comment:Result canceled by t he ancillary Hyaline cast NONE SEEN NONE SEEN /LPF [facility] [place] Granular casts, ur CANCELED NONE SEEN /LPF [facility] [place] Comment:Result canceled by t he ancillary Casts CANCELED NONE SEEN /LPF [facility] [place] Comment:Result canceled by t he ancillary Yeast, ur CANCELED NONE SEEN /HPF [facility] [place] Comment:Result canceled by t he ancillary Comments MODERATE MUCOUS THREADS [facility] [place] Note CANCELED [facility] [place] Comment:Result canceled by t he ancillary Urine culture NO CULTURE INDICATED [facility] [place] 07/29/2017 12:5 0 PM RIGGER 07/29/2017 12:51 PM RIGGER Narrative Resulting Agency Comment Performing Organization Information: ?Site ID: [place] M ?Name: Liza Smith ?Address: [facility] [place] [address] ?Director: Sukhdev Beverly D.O. MPH Katy [facility] MICROBIOLOGY - GENERAL ORDERABLES Final Result Performing Organization Address [facility] Co de Phone Number [facility] [place] * Erythrocyte sedimentation rate (07/29/2017 12:50 PM RIGGER) Erythrocyte sedimentation rate 6 < OR = 30 mm/h [facility] [place] 07/29/2017 12:5 0 PM RIGGER 07/29/2017 12:51 PM RIGGER Narrative Resulting Agency Comment Performing Organization Information: ?Site ID: [place] M ?Name: Liza Smith ?Address: [facility] [place] [address] ?Director: Sukhdev Beverly D.O., MPH Katy [facility]LOOD ORDERABLES Final Result Performing Organization Address [facility] de Phone Number [facility] [place] * (ABNORMAL) Comprehensive metabolic panel (07/29/2017 12:50 PM RIGGER) Glucose 94 65 - 99 mg/dL [facility] [place] Comment: ? Fasting reference interval BUN 18 7 - 25 mg/dL [facility] [place] Creatinine 0.73 0.50 - 0.99 mg/dL [facility] [place] Comment: For patients >49 years of age, the reference limit for Creatinine is approximately 13% higher for people identified as -British. eGFR NON-AFR. BURMESE 85 > OR = 60 mL/min/1 .73m2 [facility] [place] EGFR 98 > OR = 60 mL/min/1 .73m2 [facility] [place] BUN/creat ratio NOT APPLICABLE 6 - 22 (calc) [facility] [place] Sodium 138 135 - 146 mmol/L [facility] [place] Potassium, pl 4.1 3.5 - 5.3 mmol/L [facility] [place] Chloride 100 98 - 110 mmol/L [facility] [place] CO2 34(H) 20 - 31 mmol/L [facility] [place] Calcium 9.2 8.6 - 10.4 mg/dL [facility] [place] Protein, sr 6.9 6.1 - 8.1 g/dL [facility] [place] Albumin 4.2 3.6 - 5.1 g/dL [facility] [place] Globulin 2.7 1.9 - 3.7 g/dL (calc) [facility] [place] Alb/glob ratio 1.6 1.0 - 2.5 (calc) [facility] [place] Bilirubin, total 0.5 0.2 - 1.2 mg/dL [facility] [place] Alk phos 82 33 - 130 U/L [facility] [place] AST 30 10 - 35 U/L [facility] [place] ALT (SGPT) 23 6 - 29 U/L [facility] [place] 07/29/2017 12:5 0 PM RIGGER 07/29/2017 12:51 PM RIGGER Narrative Resulting Agency Comment Performing Organization Information: ?Site ID: [place] M ?Name: [facility] ?Address: [facility] [place] [address] ?Director: Sukhdev Beverly D.O., MPH Katy [facility]LOOD ORDERABLES Final Result [facility] [place] * Protein / creatinine ratio, urine, random (07/29/2017 12:50 PM RIGGER) Creatinine, ur 141 20 - 320 mg/dL [facility] [place] Protein/creati nine ratio 99 21 - 161 mg/g creat [facility] [place] Protein, ur, quant 14 5 - 24 mg/dL [facility] [place] Urine 07/29/2017 12:5 0 PM RIGGER 07/29/2017 12:51 PM RIGGER Narrative Resulting Agency Comment Performing Organization Information: ?Site ID: [place] M ?Name: [facility] ?Address: [facility] [address] ?Director: Sukhdev Beverly D.O., MPH Katy [facility] URINE ORDERABLES Final Result [facility] [place] documented in this encounter Visit Diagnoses Diagnosis Other forms of systemic lupus erythematosus, unspecified organ involvement status (HCC)- Primary custodial use of drug documented in this encounter Care Teams Travel Registered Nurse Nicu Relationship Specialty Start Date End Date Santiago Bueno MD [address] [facility] [address] [place] [address] PCP - General 11/30/16 06/09/20 [place] [address] [facility] [address] [place] [address] Rheumatology 07/15/17 documented as of this encounter
--- OUTSIDE RECORDS SUMMARY | 2024-08-29 10:26 | XMS_ITS | Encounter Summary ---
Author Organization [facility] Address [address] [facility] [address] [place] [address] Care Team Providers Care Network Pricing Consultant Name Role Phone Santiago Bueno MD Primary Care Provider [phone] Gladis Song MD Unavailable Reason for Visit * Reason Onset Date Comments Cough 08/09/2017 Encounter Details Date Type Department Care Team (Late st Contact Info) Description 08/09/2017 Nurse Triage [facility] [address] [place] [address] Santiago Bueno MD [address] [facility] [address] [place] [address] Social History Tobacco Use Types Packs/Day Years Used Date Smoking Tobacco: Never Smokeless Tobacco: Never Alcohol Use Standard Drinks/Week Comments No 0 (1 standard drink = 0.6 oz pur e alcohol) Comments Unknown Sex and Gender Information Value Date Recorded Sex Assigned at Not on file Legal Sex Female 12:11 AM MANAGER PART Gender Identity Not on file Sexual Orientation Not on file Occupation Industry Job Start Date Job End Date Retired Not on file Not on file Not on file documented as of this encounter Miscellaneous Notes * Telephone Encounter - Krissy Chavez RN - 08/09/2017 2:03 PM CST Sx X 5 days, Cough, SOB, now wheezing. No appt's available, advised Pt to go to [facility] now. Reason for Disposition ??? Wheezing is present Protocols used: [id number] PART * Telephone Encounter - Krissy Chavez RN - 08/09/2017 2:02 PM CST Regarding: difficulty breathing, cough ----- Message from Patricia So sent at 08/09/2017 1:57 PM MANAGER PART ----- Symptom Based Call Chief Complaint: difficulty breathing, cough Duration: Started Saturday Appointment Details: Red flag Additional Comments: N/A GER PART documented in this encounter Plan of Treatment Not on file documented as of this encounter Visit Diagnoses Not on filedocumented in this encounter Care Teams Network Pricing Consultant Relationship Specialty Start Date End Date Santiago Bueno MD [address] [facility] [address] [place] [address] PCP - General 11/30/16 06/09/20 [place] [address] [facility] [address] [place] [address] Rheumatology 07/15/17 documented as of this encounter
--- OUTSIDE RECORDS SUMMARY | 2024-08-29 10:26 | XMS_ITS | Encounter Summary ---
Author Organization [facility] Medical [facility] Address [address] [place] [address] Care Team Providers Care Vp Security Name Role Phone Santiago Bueno MD Primary Care Provider [phone] Reason for Visit * Reason Comments Medicare Wellness Encounter Details Date Type Department Care Team (Late st Contact Info) Description 05/22/2017 1:00 PM CDT Office Visit [facility] [address] [place] [address] Santiago Bueno MD [address] [place] [address] [address] [place] [address] Medicare annual wellness visit, subsequent (Primary Dx); Essential hypertension; Gastroesophageal reflux disease without esophagitis; Osteopenia of multiple sites; Anxiety state; Need for hepatitis C screening test; Cheilitis; Other forms of systemic lupus erythematosus, unspecified organ involvement status Social History Tobacco Use Types Packs/Day Years Used Date Smoking Tobacco: Never Smokeless Tobacco: Never Alcohol Use Standard Drinks/Week Comments No 0 (1 standard drink = 0.6 oz pur e alcohol) Comments Unknown Sex and Gender Information Value Date Recorded Sex Assigned at Not on file Legal Sex Female 12:11 AM AVID EDITOR Gender Identity Not on file Sexual Orientation Not on file Occupation Industry Job Start Date Job End Date Retired Not on file Not on file Not on file documented as of this encounter Last Filed Vital Signs Vital Sign Reading Time Taken Comments Blood Pressure 122/86 05/22/2017 1:05 PM CDT Pulse 78 05/22/2017 1:05 PM CDT Temperature - - Respiratory Rate - - Oxygen Saturation 97% 05/22/2017 1:05 PM CDT Inhaled Oxygen Concentration - - Weight 69.9 kg (154 lb) 05/22/2017 1:05 PM CDT Height - - Body Mass Index 31.1 04/29/2017 10:16 AM CDT documented in this encounter Progress Notes * Santiago Bueno MD - 05/22/2017 1:00 PM CDT Subjective/Objective Patient ID: Chio Orantes is a 66 y.o. female. Chief Complaint Medicare Wellness Patient filled out the Medicare Health Risk Assessment in its entirety, & we reviewed during the appointment, which was scanned into the chart. 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 Last colonoscopy: 2010, repeat in 10 years recommended ( Dr. Guerrier ). Just had a mammogram in January. Review of Systems Constitutional: Negative for chills, fatigue and fever. HENT: Negative for ear pain and hearing loss. Eyes: Negative for photophobia and pain. Respiratory: Negative for cough, shortness of breath and wheezing. Cardiovascular: Negative for chest pain, palpitations and leg swelling. Gastrointestinal: Negative for abdominal pain, diarrhea, nausea and vomiting. Endocrine: Negative for cold intolerance and polydipsia. Genitourinary: Negative for pelvic pain and urgency. Musculoskeletal: Negative for arthralgias and myalgias. Skin: Negative for color change and rash. Allergic/Immunologic: Negative for environmental allergies. Neurological: Negative for dizziness, light-headedness and headaches. Hematological: Does not bruise/bleed easily. Psychiatric/Behavioral: Negative for dysphoric mood. Physical Exam Constitutional: She is oriented to person, place, and time. She appears well- developed and well-nourished. No distress. HENT: Head: Normocephalic and atraumatic. Mouth/Throat: Oropharynx is clear and moist. Eyes: Conjunctivae and EOM are normal. Pupils [...] Diagnoses and all orders for this visit: 1. Medicare annual wellness visit, subsequent (Primary) 2. Essential hypertension Assessment & Plan: Hypertension is improving with treatment. Continue current treatment regimen. Dietary sodium restriction. Weight loss. Regular aerobic exercise. Blood pressure will be reassessed at the next regular appointment. Orders: - TSH; Future 3. Gastroesophageal reflux disease without esophagitis Assessment & Plan: Continue omeprazole. GERD Instructions ?? Do not [...] more per week despite following these instructions. 4. Osteopenia of multiple sites Assessment & Plan: This problem is currently stable. Chio reports no problems with treatment compliance and no new symptoms. Plan: Continue current therapy and reassess at next scheduled follow up visit. Orders: - Vitamin D 25 hydroxy; Future 5. Anxiety state Assessment & Plan: This problem is currently stable. Chio reports no problems with treatment compliance and no new symptoms. Plan: Continue current therapy and reassess at next scheduled follow up visit. 6. Need for hepatitis C screening test - Hepatitis C antibody; Future 7. Cheilitis Assessment & Plan: No clear cause. She is already working with a residence life director on this (but they reportedly don't knowwhat's causing it either). We'll see if anything comes up in lab work. 8. Other forms of systemic lupus erythematosus, unspecified organ involvement status - US Aspiration Injection Small Joint Other orders - Pneumococcal conjugate vaccine 13-valent IM documented in this encounter Miscellaneous Notes * Assessment & Plan Note - Santiago Bueno MD - 05/22/2017 1:55 PM CDT Associated Problem(s): Cheilitis (Resolved 05/13/2018) No clear cause. She is already working with a residence life director on this (but they reportedly don't knowwhat's causing it either). We'll see if anything comes up in lab work. * Assessment & Plan Note - Santiago Bueno MD - 05/22/2017 1:54 PM CDT Associated Problem(s): Osteopenia This problem is currently stable. Chio reports no problems with treatment compliance and no new symptoms. Plan: Continue current therapy and reassess at next scheduled follow up visit. * Assessment & Plan Note - Santiago Bueno MD - 05/22/2017 1:54 PM CDT Associated Problem(s): Gastroesophageal reflux disease Continue omeprazole. GERD Instructions ?? Do not [...] more per week despite following these instructions. * Assessment & Plan Note - Santiago Bueno MD - 05/22/2017 1:53 PM CDT Associated Problem(s): Hypertension (Resolved 06/01/2019) Hypertension is improving with treatment. Continue current treatment regimen. Dietary sodium restriction. Weight loss. Regular aerobic exercise. Blood pressure will be reassessed at the next regular appointment. * Assessment & Plan Note - Santiago Bueno MD - 05/22/2017 1:53 PM CDT Associated Problem(s): Anxiety state This problem is currently stable. Chio reports no problems with treatment compliance and no new symptoms. Plan: Continue current therapy and reassess at next scheduled follow up visit. documented in this encounter Plan of Treatment Not on file documented as of this encounter Procedures Procedure Name Priority Date/Time Associated Diagnosis Comments HEPATITIS C ANTIBODY Routine 05/22/2017 1:57 PM CDT Need for hepatitis C screening test VITAMIN D 25 HYDROXY Routine 05/22/2017 1:57 PM CDT Osteopenia of multiple sites TSH Routine 05/22/2017 1:57 PM CDT Essential hypertension HM COLONOSCOPY Routine 02/06/2011 documented in this encounter Results * Hepatitis C antibody (05/22/2017 1:57 PM CDT) Hep C Ab Non-Reacti ve Non-Reacti ve RO[facility]IE ALLEN Comment:Testing performed by : [facility], [facility] [place]., [address] Blood specimen (specimen) 05/22/2017 1:57 PM CDT 05/22/2017 8:04 PM CDT us Santiago Bueno MD LAB MICROBIOLOGY - GENERAL ORD ERABLES Final Result Performing Organization Address City/[facility]/ZIP Co de Phone Number [facility] [address] [place] [address] * Vitamin D 25 hydroxy (05/22/2017 1:57 PM CDT) Pathologist [facility] Vitamin D 25-OH 39.0 30.0 - 100.0 ng/mL ROSE MARIE ALLEN Comment:Testing performed by : [facility], [address] [place] [address], [place]., [address] Blood specimen (specimen) 05/22/2017 1:57 PM CDT 05/22/2017 8:21 PM CDT Santiago Bueno MD LAB BLOOD ORDERABLES Final Res ult [facility] [address] Department [place] [address] * TSH (05/22/2017 1:57 PM CDT) Pathologist [facility] Thyroid Stimulating Hormone 2.23 0.30 - 4.20 mcUnits/mL [facility] WYNNSaumyaBALDOMERO Blood specimen (specimen) 05/22/2017 1:57 PM CDT 05/22/2017 4:50 PM CDT Santiago Bueno MD LAB BLOOD ORDERABLES Final Res ult [facility] [address] [facility]. [place] [address] * COLONOSCOPY (02/06/2011) Pathologist [facility] Colonoscopy Normal Historical Provider HEALTH MAINTENANCE Final Result documented in this encounter Visit Diagnoses Diagnosis Medicare annual wellness visit, subsequent- Primary Essential hypertension Unspecified essential hypertension Gastroesophageal reflux disease without esophagitis Esophageal reflux Osteopenia of multiple sites Anxiety state Anxiety state, unspecified Need for hepatitis C screening test Special screening examination for other specified viral diseases Cheilitis Diseases of lips Other forms of systemic lupus erythematosus, unspecified organ involvement status (HCC) documented in this encounter Discontinued Medications Medication Sig Discontinue Reason Start Date End Da te tetrahydrozoline-peg (LUBRICANT REDNESS RELIEVER) 0.05-1 % drops instill 1 drop by ophthalmic route PRN for allergies 03/26/2016 05/22/2017 atorvastatin (LIPITOR) 20 mg tablet Take 1 tablet (20 mg total) by mouth daily. 03/04/2017 05/22/2017 albuterol HFA (PROAIR HFA) 90 mcg/actuation inhaler INHALE 2 PUFFS EVERY 4-6 HOURS NEEDED 08/31/2013 05/22/2017 acetaminophen (TYLENOL) 325 mg tablet take 2 tablet by oral route every 6 hours as needed for mild pain 03/26/2016 05/22/2017 documented as of this encounter Orders Imaging Orders Without Results Count Last Order ed Date First Ordered Date US ASPIRATION INJECTION SMALL JOINT 1 05/22 Immunization/Injection Count Last Ordered Date First Ordered Date PNEUMOCOCCAL CONJUGATE VACCI NE 13-VALENT IM 1 05/22/2017 documented in this encounter Care Teams Vp Security Relationship Specialty Start Date End Date Santiago Bueno MD [address] [facility] [address] [place] [address] PCP - General 11/30/16 06/09/20 documented as of this encounter
--- OUTSIDE RECORDS SUMMARY | 2024-08-29 10:26 | XMS_ITS | Encounter Summary ---
Author Organization [facility] Medical Group Address [address] [place] [address] Care Team Providers Care Costume Designer Name Role Phone Santiago Bueno MD Primary Care Provider [phone] Gladis Song MD Unavailable Reason for Visit * Reason Comments Follow-up Bronchitis Encounter Details Date Type Department Care Team (Late st Contact Info) Description 08/16/2017 11:00 AM DISTRIBUTOR ADVERTISING MATERIAL Office Visit [facility] [address] [place] [address] Tatum Benito, FORM PRESS OPERATOR [address] [facility] [address] [place] [address] Bronchitis (Primary Dx); BMI 31.0-31.9,adult; Hypokalemia Social History Tobacco Use Types Packs/Day Years Used Date Smoking Tobacco: Never Smokeless Tobacco: Never Alcohol Use Standard Drinks/Week Comments No 0 (1 standard drink = 0.6 oz pur e alcohol) Comments Unknown Sex and Gender Information Value Date Recorded Sex Assigned at Not on file Legal Sex Female 12:11 AM DISTRIBUTOR ADVERTISING MATERIAL Gender Identity Not on file Sexual Orientation Not on file Occupation Industry Job Start Date Job End Date Retired Not on file Not on file Not on file documented as of this encounter Last Filed Vital Signs Vital Sign Reading Time Taken Comments Blood Pressure 130/80 08/16/2017 11:14 AM DISTRIBUTOR ADVERTISING MATERIAL Pulse 79 08/16/2017 11:14 AM DISTRIBUTOR ADVERTISING MATERIAL Temperature - - Respiratory Rate - - Oxygen Saturation 96% 08/16/2017 11:14 AM DISTRIBUTOR ADVERTISING MATERIAL Inhaled Oxygen Concentration - - Weight 71.2 kg (157 lb) 08/16/2017 11:14 AM DISTRIBUTOR ADVERTISING MATERIAL Height 149.9 cm (4' 11 ) 08/16/2017 11:14 AM DISTRIBUTOR ADVERTISING MATERIAL Body Mass Index 31.71 08/16/2017 11:14 AM DISTRIBUTOR ADVERTISING MATERIAL documented in this encounter Progress Notes * Tatum Benito, FELICIA - 08/16/2017 11:00 AM CST Subjective/Objective Patient ID: Chio Orantes is a 66 y.o. female. Chief Complaint Follow-up and Bronchitis Follow-up bronchitis: Patient went to urgent care last week with complaints of coughing congestion and postnasal drainage. The she was placed on Z-Roldan and prednisone. She states she is starting to feel better. She denies any fevers, chills or shortness of breath. She states she is still wheezing a little bit. Patient states her symptoms started approximately 10 days ago. She rates her symptoms now as a 3. Hypokalemia: Patient states when she was at urgent care last week her potassium was low. She statesshe does not know what the number was. She states she is on a new medication called methotrexate for her rheumatoid arthritis. She states that her joints her feeling much better. Reviewed the following with patient: Levofloxacin; Nitrofurantoin; Sulfa (sulfonamide antibiotics); and Latex Current Outpatient Prescriptions Medication Sig Dispense Refill ??? apixaban (ELIQUIS) 5 mg tablet 5 mg. ??? aspirin 81 mg tablet Take 81 mg by mouth daily. ??? atorvastatin (LIPITOR) 80 mg tablet TAKE 1 TABLET EVERY DAY 30 3 ??? cholecalciferol (VITAMIN D3) 2,000 unit tablet take 1 by Oral route every day 0 0 ??? folic acid (FOLVITE) 1 mg tablet Take 1 tablet (1 mg total) by mouth daily. Take one tab daily 30 tablet 3 ??? hydroCHLOROthiazide (HYDRODIURIL) 25 mg tablet TAKE 1 TABLET EVERY DAY 90 tablet 1 ??? hydroxychloroquine (PLAQUENIL) 200 mg tablet TAKE 1 TABLET BY MOUTH EVERY 12 HOURS 180 tablet 0 ??? methotrexate 2.5 mg tablet Take 3 tablets (7.5 mg total) by mouth once a week. 15 tablet 1 ??? metoprolol XL (TOPROL XL) 50 mg 24 hr tablet take 1 tablet by oral route every day 0 0 ??? montelukast (SINGULAIR) 10 mg tablet TAKE ONE BY MOUTH ONE TIME PER DAY 30 5 ??? omeprazole (PriLOSEC) 20 mg capsule TAKE ONE CAPSULE BY MOUTH TWICE A DAY 180 capsule 0 No current facility-administered medications for this visit. Past Medical History: Diagnosis Date ??? Cerebrovascular accident (CVA) (CMS/HCC) Stroke ??? 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 SECTION Family History Problem Relation Age of Onset ??? Coronary artery disease Mother Coronary artery disease; ??? Heart attack Mother 61 heart attack; ??? Asthma Father 82 Asthma; /Asthma; ??? Tuberculosis Father Tuberculosis; ??? Asthma Brother Asthma; ??? Diabetes Brother Diabetes mellitus; ??? Asthma Sister Asthma; ??? Diabetes Sister Diabetes mellitus; Social History Social History ??? Marital status: Spouse name: N/A ??? Number of children: N/A ??? Years of education: N/A Occupational History ??? Retired Social History Main Topics ??? Smoking status: Never Smoker ??? Smokeless tobacco: Never Used ??? Alcohol use No ??? Drug use: No ??? Sexual activity: Not on file Other Topics Concern ??? Not on file Social History Narrative ??? No narrative on file Review of Systems Constitutional: Negative for activity change, appetite change, chills and fever. HENT: Negative for congestion and hearing loss. Respiratory: Positive for cough and wheezing. Negative for chest tightness and shortness of breath. Cardiovascular: Negative for chest pain, palpitations and leg swelling. Gastrointestinal: Negative for abdominal distention and abdominal pain. Genitourinary: Negative for difficulty urinating and dysuria. Musculoskeletal: Negative for arthralgias. Skin: Negative for pallor. Neurological: Negative for dizziness and headaches. Hematological: Negative for adenopathy. Psychiatric/Behavioral: Negative for confusion. Blood pressure 130/80, pulse 79, height 149.9 cm (4' 11 ), weight 71.2 kg (157 lb), SpO2 96 %, not currently . Body mass index is 31.71 kg/m??. Physical Exam Constitutional: She appears well-developed. HENT: Head: Normocephalic. Right Ear: Ear canal normal. Left Ear: Ear canal normal. Nose: Mucosal edema and rhinorrhea present. Mouth/Throat: Uvula is midline and mucous membranes are normal. No tonsillar exudate. +PND and bilateral Tms with air bubbles. Eyes: Conjunctivae and lids are normal. Neck: Normal range of motion. Neck supple. Cardiovascular: Normal rate and regular rhythm. Pulmonary/Chest: Effort normal and breath sounds normal. Lymphadenopathy: Head (right side): No submental, no submandibular, no tonsillar, no preauricular, no posterior auricular and no occipital adenopathy present. Head (left side): No submental, no submandibular, no tonsillar, no preauricular, no posterior auricular and no occipital adenopathy present. Neurological: She is alert. Skin: Skin is warm and dry. Psychiatric: She has a normal mood and affect. Assessment/Plan Diagnoses and all orders for this visit: Bronchitis (Primary) Assessment & Plan: Patient is still continuing to wheeze. Ventolin 2 puffs t.i.d.. Explained to patient that she should contact the office if she does not feel better. BMI 31.0-31.9,adult Assessment & Plan: BMI Follow-up includes: nutrition counseling, exercise counseling and education provided. Hypokalemia Assessment & Plan: Patient was given potassium at the urgent care. BMP today. Orders: - Basic metabolic panel; Future RIBUTOR ADVERTISING MATERIAL documented in this encounter Miscellaneous Notes * Assessment & Plan Note - Tatum Benito NP - 08/16/2017 12:36 PM DISTRIBUTOR ADVERTISING MATERIAL Associated Problem(s): Hypokalemia (Resolved 05/13/2018) Patient was given potassium at the urgent care. BMP today. RIBUTOR ADVERTISING MATERIAL * Assessment & Plan Note - Tatum Benito NP - 08/16/2017 12:36 PM DISTRIBUTOR ADVERTISING MATERIAL Associated Problem(s): Bronchitis (Resolved 05/13/2018) Patient is still continuing to wheeze. Ventolin 2 puffs t.i.d.. Explained to patient that she should contact the office if she does not feel better. RIBUTOR ADVERTISING MATERIAL * Assessment & Plan Note - Kel Kraus MA - 08/16/2017 11:22 AM DISTRIBUTOR ADVERTISING MATERIAL Associated Problem(s): BMI 28.0-28.9,adult BMI Follow-up includes: nutrition counseling, exercise counseling and education provided. RIBUTOR ADVERTISING MATERIAL documented in this encounter Plan of Treatment Not on file documented as of this encounter Procedures Procedure Name Priority Date/Time Associated Diagnosis Comments EGFR Routine 08/16/2017 12:13 PM DISTRIBUTOR ADVERTISING MATERIAL Hypokalemia BASIC METABOLIC PANEL Routine 08/16/2017 12:13 PM DISTRIBUTOR ADVERTISING MATERIAL Hypokalemia documented in this encounter Results * eGFR (08/16/2017 12:13 PM DISTRIBUTOR ADVERTISING MATERIAL) eGFR >60 mL/min/1.7 3 m2 RO[facility] MARIE ALLEN Comment: Interpretive Data Reference Interval Normal ?>/= 90 mL/min/1.73m2 Mildly decreased* ? 60 - 89 mL/min/1.73m2 Mildly to moderately decreased ?45 - 59 mL/min/1.73m2 Moderately to severely decreased ??30 - 44 mL/min/1.73m2 Severely decreased ?15 - 29 mL/min/1.73m2 Kidney Failure ?< 15 ??mL/min/1.73m2 *Relative to young adult level If -Omani multiply value by 1.16. Estimated glomerular filtration [...] was last reviewed 2016. Blood specimen (specimen) 08/16/2017 12:13 PM DISTRIBUTOR ADVERTISING MATERIAL 08/16/2017 3:59 PM DISTRIBUTOR ADVERTISING MATERIAL Narrative [facility] - 08/16/2017 5:28 PM DISTRIBUTOR ADVERTISING MATERIAL us Tatum Benito FORM PRESS OPERATOR LAB BLOOD ORDERABLES Final R esult ROSE MARIE SARABIA [address] [facility]. [place] [address] * Basic metabolic panel (08/16/2017 12:13 PM DISTRIBUTOR ADVERTISING MATERIAL) Sodium 140 135 - 145 mmol/L [facility] Potassium, pl 4.2 3.3 - 4.9 mmol/L [facility] Chloride 98 97 - 110 mmol/L [facility] CO2 29 22 - 32 mmol/L [facility] BUN 17 8 - 25 mg/dL [facility] Glucose 79 70 - 199 mg/dL [facility] Comment: Interpretive Data Fasting glucose >/= 126 [...] Current interpretive data was last revised 2017. Creatinine 0.70 0.60 - 1.10 mg/dL [facility] Calcium 9.1 8.5 - 10.3 mg/dL [facility] Anion gap 13 2 - 15 mmol/L [facility] Blood specimen (specimen) 08/16/2017 12:13 PM DISTRIBUTOR ADVERTISING MATERIAL 08/16/2017 3:59 PM DISTRIBUTOR ADVERTISING MATERIAL Narrative RO[facility] MARIE ALLEN - 08/16/2017 5:28 PM DISTRIBUTOR ADVERTISING MATERIAL us Tatum Benito FORM PRESS OPERATOR LAB BLOOD ORDERABLES Final R esult [facility] [address] [facility] Department [place] [address] documented in this encounter Visit Diagnoses Diagnosis Bronchitis- Primary Bronchitis, not specified as acute or chronic BMI 31.0-31.9,adult Hypokalemia Hypopotassemia documented in this encounter Care Teams Costume Designer Relationship Specialty Start Date End Date Santiago Bueno MD [address] [place] [address] PCP - General 11/30/16 06/09/20 [place] [address] [place] [address] Rheumatology 07/15/17 documented as of this encounter
--- OUTSIDE RECORDS SUMMARY | 2024-08-29 10:26 | XMS_ITS | Encounter Summary ---
Author Organization [facility] Medical [facility] Address [address] [address] [place] [address] Care Team Providers Care Ultrasonic Solderer Name Role Phone Santiago Bueno MD Primary Care Provider [phone] Gladis Song MD Unavailable Silvia Granger Bettina DPT Unavailable [phone] No, Physician Primary Care Provider [phone] Encounter Details Date Type Department Care Team (Late st Contact Info) Description 06/03/2017 Orders Only [facility] Cardiology [address] [facility] [address] [place] [address] ProviderErnestina MD [address] [place], [place] [id number] Social History Tobacco Use Types Packs/Day Years Used Date Smoking Tobacco: Never Smokeless Tobacco: Never Alcohol Use Standard Drinks/Week Comments No 0 (1 standard drink = 0.6 oz pur e alcohol) PHQ-2 Answer Date Recorded PHQ-2 Score 0 04/24/2019 Comments Unknown Sex and Gender Information Value Date Recorded Sex Assigned at Not on file Legal Sex Female 12:11 AM BEATER HEAD Gender Identity Not on file Sexual Orientation Not on file Occupation Industry Job Start Date Job End Date Retired Not on file Not on file Not on file documented as of this encounter Plan of Treatment Not on file documented as of this encounter Procedures Procedure Name Priority Date/Time Associated Diagnosis Comments TRANSTHORACIC ECHO (TTE) COM PLETE W DOPPLER/CF Routine 04/15/2017 documented in this encounter Results * Transthoracic Echo Complete W Doppler/CF (04/15/2017) Anatomical Region Laterality Modality Ultrasound us Historical Provider CV ECHO PROCEDURES Final Result documented in this encounter Visit Diagnoses Not on filedocumented in this encounter Care Teams Ultrasonic Solderer Relationship Specialty Start Date End Date Santiago Bueno MD [address] [facility] [address] [place] [address] PCP - General 11/30/16 06/09/20 No, Physician PCP - General 06/10/20 10/30/20 [place] [address] [facility] [address] [place] [address] Rheumatology 07/15/17 Silvia Granger DPT [address] [facility] [address] [place] [address] Physical Therapist Physical Therapy 04/14/20 06/09/20 documented as of this encounter
--- OUTSIDE RECORDS SUMMARY | 2024-08-29 10:26 | XMS_ITS | Encounter Summary ---
Author Organization [facility] Address [address] [place] [address] Care Team Providers Care Supervisor Records Change Name Role Phone Santiago Bueno MD Primary Care Provider [phone] Reason for Visit * Reason Onset Date Comments Dr Bueno-Medical Question 04/25/2017 Encounter Details Date Type Department Care Team (Late st Contact Info) Description 04/25/2017 Telephone [facility] [address] [place] [address] Santiago Bueno MD [address] [place] [address] [address] [place] [address] Dr Bueno-Medical Question Social History Tobacco Use Types Packs/Day Years Used Date Smoking Tobacco: Never Alcohol Use Standard Drinks/Week Comments No 0 (1 standard drink = 0.6 oz pur e alcohol) Comments Unknown Sex and Gender Information Value Date Recorded Sex Assigned at Not on file 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 Attempted to warm transfer her to the backline twice but no answer.Please advise. * Telephone Encounter - Valerie Simental - 04/25/2017 1:51 PM CDT LMOR to return call --- transfer to Valerie * Telephone Encounter - Nirmala Alexander - 04/25/2017 1:42 PM CDT Patient was discharged from [facility] in [place], [place] on 04/17/17 for a TIA event and is in need of a follow up terri possible. I am unable to find a LAISHA or est within the next week for Dr Bueno or FELICIA-Tiffanie. Please asst and contact patient. documented in this encounter Plan of Treatment Not on file documented as of this encounter Visit Diagnoses Not on filedocumented in this encounter Care Teams Supervisor Records Change Relationship Specialty Start Date End Date Santiago Bueno MD [address] [place] [address] PCP - General 11/30/16 06/09/20 documented as of this encounter
--- OUTSIDE RECORDS SUMMARY | 2024-08-29 10:26 | XMS_ITS | Encounter Summary ---
Author Organization [facility] Healthcare Address [address] [place] [address] Care Team Providers Care Party Planner Name Role Phone Santiago Bueno MD Primary Care Provider [phone] Encounter Details Date Type Department Care Team (Latest Contact Info) Description 05/10/2017 1:56 PM CDT - 05/10/2017 11:59 PM T Hospital Encounter [facility] [phone] Judah Lim MD [address] [place], [place] [id number] Discharge Disposition: Discharge to home or self care Social History Tobacco Use Types Packs/Day Years Used Date Smoking Tobacco: Never Smokeless Tobacco: Never Alcohol Use Standard Drinks/Week Comments No 0 (1 standard drink = 0.6 oz pur e alcohol) Comments Unknown Sex and Gender Information Value Date Recorded Sex Assigned at Not on file 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 9 aspirin 81 mg tablet Take 81 mg by mouth daily. 8 atorvastatin (LIPITOR) 20 mg tablet Take 1 tablet (20 mg total) by mouth daily. 30 tablet 1 03/04/2017 7 atorvastatin (LIPITOR) 80 mg tablet TAKE 1 TABLET EVERY DAY 30 3 05/02/2015 8 hydroCHLOROthiaz dona (HYDRODIURIL) 25 mg tablet Take 1 tablet (25 mg total) by mouth daily. 30 tablet 1 03/04/2017 7 hydroxychloroqui ne (PLAQUENIL) 200 mg tablet TAKE 1 TABLET BY MOUTH EVERY 12 HOURS 180 1 05/04/2014 7 metoprolol XL (TOPROL XL) 50 mg 24 hr tablet take 1 tablet by oral route every day 0 0 04/16/2016 8 montelukast (SINGULAIR) 10 mg tablet TAKE ONE BY MOUTH ONE TIME PER DAY 30 5 10/17/2006 8 omeprazole (PriLOSEC) 20 mg capsule TAKE ONE CAPSULE BY MOUTH TWICE A DAY 180 capsule 04/25/2017 8 PARoxetine (PAXIL) 20 mg tablet take 1 tablet by oral route every day 0 0 05/04/2014 7 PARoxetine (PAXIL) 20 mg tablet TAKE 1 TABLET BY MOUTH EVERY DAY 30 tablet 2 03/27/2017 7 tetrahydrozoline -peg (LUBRICANT REDNESS RELIEVER) 0.05-1 % drops instill 1 drop by ophthalmic route PRN for allergies 0 0 03/26/2016 7 documented as of this encounter Discharge Disposition Disposition Code Departure Means Destination Discharge to home or self care documented in this encounter Plan of Treatment Not on file documented as of this encounter Procedures Procedure Name Priority Date/Time Associated Diagnosis Comments XR CONSULT OF OUTSIDE FILMS (PEDS ONLY) Routine 05/10/2017 11:37 PM CDT documented in this encounter Results * XR Interpretation Of Outside Films (05/10/2017 11:37 PM CDT) Anatomical Region Laterality Modality N/A Radiographic Ashley ging 05/10/2017 11:3 7 PM CDT Narrative 05/10/2017 11:37 PM CDT OUTSIDE IMAGES SUPERIOR COURT CLERK, FINAL REPORT ACC# ??Date Time ??Exam [id number] May 10, 2017 18:37:00 [id number] [facility] Ultrasound Reference EXAMINATION: ?? Images For Reference Purposes Only IMPRESSION: ?? These images are for Reference purposes only and have not been reviewed by [facility]. There will be no report generated by a [facility]. Requested By: JUDAH LIM ??Jean ? Dictated By: ?? OUTSIDE IMAGES SUPERIOR COURT CLERK, ?? on May ??2016 ??7:30P This document has been electronically signed by: OUTSIDE IMAGES SUPERIOR COURT CLERK, ??on May ??2016 ??7:30P [id number] IMAGES SUPERIOR COURT CLERK, FINAL REPORT Attending: ??RAPHAEL, ??JUDAH Requesting: ??RAPHAEL, ??JUDAH Requesting Fax: ?? Attending Fax: ?? Attending ID: ??[id number] Requesting ID: ??[id number] Report To 1 ID: ? Report To 1 Name: ??, ?? Report To 1 FAX: ?? NextGen Order #: ?? Procedure Note Miscellaneous, Not In File - 07/02/[address] CLERK, FINAL REPORT ACC# Date Time Exam [id number] May 10, 2017 18:37:00 [id number] [facility] Ultrasound Reference EXAMINATION: Images For Reference Purposes Only IMPRESSION: These images are for Reference purposes only and have not been reviewed by [facility]. There will be no report generated by a [facility]. Requested By: JUDAH LIM M.D. Dictated By: OUTSIDE IMAGES SUPERIOR COURT CLERK, on May 10 2017 7:30P This document has been electronically signed by: OUTSIDE IMAGES SUPERIOR COURT CLERK, on May 10 2017 7:30P [id number] [id number] SUPERIOR COURT CLERK, FINAL REPORT Attending: JUDAH LIM Requesting: JUDAH LIM Requesting Fax: Attending Fax: Attending ID: [id number] Requesting ID: [id number] Report To 1 ID: Report To 1 Name: , Report To 1 FAX: NextGen Order #: Judah Lim MD IMG XR PROCEDURES Edited Resul t - Final documented in this encounter Visit Diagnoses Not on filedocumented in this encounter Care Teams Party Planner Relationship Specialty Start Date End Date Santiago Bueno MD [address] [place] [address] PCP - General 11/30/16 06/09/20 documented as of this encounter
--- OUTSIDE RECORDS SUMMARY | 2024-08-29 10:26 | XMS_ITS | Encounter Summary ---
Author Organization [facility] Healthcare Address [address] [place] [address] Care Team Providers Care Vp Data Name Role Phone Santiago Bueno MD Primary Care Provider [phone] Encounter Details Date Type Department Care Team (Latest Contact Info) Description 05/22/2017 2:39 PM CDT - 05/22/2017 11:59 PM CDT Hospital Encounter [facility] [phone] Santiago Bueno MD [address] [place] [address] Discharge Disposition: Discharge to home or self care Social History Tobacco Use Types Packs/Day Years Used Date Smoking Tobacco: Never Smokeless Tobacco: Never Alcohol Use Standard Drinks/Week Comments No 0 (1 standard drink = 0.6 oz pur e alcohol) Comments Unknown Sex and Gender Information Value Date Recorded Sex Assigned at Not on file Legal Sex Female 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 30 tablet 1 03/04/2017 05/24/2017 hydroxychloroquin e (PLAQUENIL) 200 mg tablet TAKE 1 TABLET BY MOUTH EVERY 12 HOURS 180 1 05/04/2014 07/13/2017 metoprolol XL (TOPROL XL) 50 mg 24 hr tablet take 1 tablet by oral route every day 0 0 04/16/2016 06/11/2018 montelukast (SINGULAIR) 10 mg tablet TAKE ONE BY MOUTH ONE TIME PER DAY 30 5 10/17/2006 01/31/2018 omeprazole (PriLOSEC) 20 mg capsule TAKE ONE CAPSULE BY MOUTH TWICE A DAY 180 capsule 04/25/2017 09/23/2017 PARoxetine (PAXIL) 20 mg tablet take 1 tablet by oral route every day 0 0 05/04/2014 06/25/2017 PARoxetine (PAXIL) 20 mg tablet TAKE 1 TABLET BY MOUTH EVERY DAY 30 tablet 2 03/27/2017 06/25/2017 documented as of this encounter Discharge Disposition Disposition Code Departure Means Destination Discharge to home or self care documented in this encounter Plan of Treatment Not on file documented as of this encounter Procedures Procedure Name Priority Date/Time Associated Diagnosis Comments DISCHARGE LABORATORY CUMULATIVE REPORT 05/22/2017 12:00 AM CDT documented in this encounter Results * DISCHARGE LABORATORY CUMULATIVE REPORT (05/22/2017 12:00 AM CDT) Narrative 05/22/2017 12:00 AM CDT Ordered by an unspecified provider. Historical Provider LAB BLOOD ORDERABLES Callie l Result documented in this encounter Visit Diagnoses Not on filedocumented in this encounter Care Teams Vp Data Relationship Specialty Start Date End Date Santiago Bueno MD [address] [facility] [address] [place] [address] PCP - General 11/30/16 06/09/20 documented as of this encounter
--- OUTSIDE RECORDS SUMMARY | 2024-08-29 10:26 | XMS_ITS | Encounter Summary ---
Author Organization [facility] Address [address] [place] [phone] Phone Care Team Providers Care Livestock Dealer Name Role Phone Santiago Bueno MD Primary Care Provider [phone] Reason for Referral * Diagnostic Imaging (Routine) - Closed Specialty Diagnoses / Procedures Referred By Valerie t Referred To Contact Diagnoses Other forms of systemic lupus erythematosus, unspecified organ involvement status (HCC) Procedures US Aspiration Injection Small Joint Katy Prescott PA Phone: tel: fax: Referral ID Status Reason Start Date Expiration Date Visits Re quested Visits Authorized [id number] Closed 04/30/2017 10/27/2017 1 1 Reason for Visit * Reason Comments Lupus Encounter Details Date Type Department Care Team (Late st Contact Info) Description 04/24/2017 9:00 AM CDT Office Visit [facility] [address] [facility] [address] [place] [address] [place] [address] [facility] [address] [place] [address] Other forms of systemic lupus erythematosus, unspecified organ involvement status (Primary Dx); group home use of drug Social History Tobacco Use Types Packs/Day Years Used Date Smoking Tobacco: Never Alcohol Use Standard Drinks/Week Comments No 0 (1 standard drink = 0.6 oz pur e alcohol) Comments Unknown Sex and Gender Information Value Date Recorded Sex Assigned at Not on file 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 Subjective/Objective Patient ID: Chio Orantes is a 66 y.o. female. Chief Complaint Lupus Since her last OV patient had a TIA a week ago. She states that last week she was going to let the dog out at her son's house and when she got there she didn't know what she was doing there or how toget home. She states that her joint pain is not bad. She states that she is doing much better sinceshe has been doing water therapy. Review of Systems Constitutional: Negative for activity change, fatigue and fever. HENT: Negative for mouth sores. Eyes: Negative for pain. Respiratory: Negative for shortness of breath and wheezing. Cardiovascular: Negative for chest pain. Gastrointestinal: Negative for abdominal pain. Musculoskeletal: Positive for arthralgias. Negative for joint swelling. Skin: Negative for rash. Vitals: Vitals: 04/24/17 0904 BP: 110/68 Pulse: 72 Physical Exam Constitutional: She is oriented to [...] has a normal mood and affect. Labs DsDNA 14 (01/16) Recent u/s Hand/wrist 01/16: Mild synovitis with synovial thickening and power doppler. Assessment/Plan Diagnoses and all orders for this visit: 1. Other forms of systemic lupus erythematosus, unspecified organ involvement status (Primary) Assessment & Plan: Patient to continue HCQ. Does have an eye appt at the end of August. U/S with mild synovitis and power doppler. CDAI today with moderate disease activity. Discussed adding MTX vs continuing monotherapy with HCQ. Patient prefers to wait and continue HCQ at this point. Will have her get a steroid injection for her left 3rd finger that is triggering. Orders: - US Aspiration Injection Small Joint; Future - CBC with auto differential; Future - Comprehensive metabolic panel; Future - CRP (acute phase); Future - Erythrocyte sedimentation rate; Future - URINALYSIS, COMPLETE W/REFLEX TO CULTURE; Future - ds DNA; Future - C4 complement; Future - C3 complement; Future 2. ocean transportation intermediary use of drug Assessment & Plan: Will continue to monitor the patient with routine labs. Cosigned by Gladis Song MD at 04/25/2017 2:17 PM CDT documented in this encounter Miscellaneous Notes * Assessment & Plan Note - Katy Ball PA - 04/24/2017 9:34 AM CDT Associated Problem(s): Therapeutic drug monitoring (Resolved 06/30/2019) Will continue to monitor the patient with routine labs. * Assessment & Plan Note - Katy Ball PA - 04/24/2017 9:29 AM CDT Associated Problem(s): Systemic lupus erythematosus (CMS/HCC) (HCC) Patient to continue HCQ. Does have an eye appt at the end of August. U/S with mild synovitis and power doppler. CDAI today with moderate disease activity. Discussed adding MTX vs continuing monotherapy with HCQ. Patient prefers to wait and continue HCQ at this point. Will have her get a steroid injection for her left 3rd finger that is triggering. documented in this encounter Plan of Treatment Scheduled Orders Name Type Priority Associated Diagnoses Orde r Schedule US Aspiration Injection Small Joint Imaging Schedule Routine, Read Routine (OP Routine) Other forms of systemic lupus erythematosus, unspecified organ involvement status Expected: 04/24/2017, Expires: 04/24/2018 URINALYSIS, COMPLETE W/REFLEX TO CULTURE Lab Routine Other forms of systemic lupus erythematosus, unspecified organ involvement status 1 Occurrences starting 04/24/2017 until 04/24/2018 documented as of this encounter Procedures Procedure Name Priority Date/Time Associated Diagnosis Comments REFLEXIVE URINE CULTURE Routine 04/24/2017 9:35 AM CDT C4 COMPLEMENT Routine 04/24/2017 9:35 AM CDT Other forms of systemic lupus erythematosus, unspecified organ involvement status ANTI-DOUBLE STRANDED DNA ANTIBODIES Routine 04/24/2017 9:35 AM CDT Other forms of systemic lupus erythematosus, unspecified organ involvement status URINALYSIS AND REFLEX TO MICROSCOPIC AND CULTURE Routine 04/24/2017 9:35 AM CDT CBC WITH AUTO DIFFERENTIAL Routine 04/24/2017 9:35 AM CDT Other forms of systemic lupus erythematosus, unspecified organ involvement status ERYTHROCYTE SEDIMENTATION RATE Routine 04/24/2017 9:35 AM CDT Other forms of systemic lupus erythematosus, unspecified organ involvement status C3 COMPLEMENT Routine 04/24/2017 9:35 AM CDT Other forms of systemic lupus erythematosus, unspecified organ involvement status CRP (ACUTE PHASE) Routine 04/24/2017 9:3 5 AM CDT Other forms of systemic lupus erythematosus, unspecified organ involvement status COMPREHENSIVE METABOLIC PANEL Routine 04/24/2017 9:35 AM CDT Other forms of systemic lupus erythematosus, unspecified organ involvement status documented in this encounter Results * REFLEXIVE URINE CULTURE (04/24/2017 9:35 AM CDT) Urine culture NO CULTURE INDICATED [facility] [place] 04/24/2017 9:35 AM CDT 04/24/2017 9:35 AM CDT Narrative Resulting Agency Comment Performing Organization Information: ?Site ID: [place] ?Name: [facility] ?Address: [facility] [place] [address] ?Director: Sukhdev Beverly D.O., MPH Katy [facility] MICROBIOLOGY - GENERAL ORDERABLES Final Result [facility] [place] * Urinalysis reflex to microscopic and culture (04/24/2017 9:35 AM CDT) Color, ur YELLOW YELLOW [facility] [place] Appearance, ur CLEAR CLEAR [facility] [place] Specific gravity 1.017 1.001 - 1.035 [facility] [place] pH, ur 6.0 5.0 - 8.0 [facility] [place] Glucose, ur NEGATIVE NEGATIVE [facility] [place] Reducing substances CANCELED NEGATIVE % [facility] [place] Comment:Result canceled by t demetrice ancillary Bilirubin, ur NEGATIVE NEGATIVE [facility] [place] Ketones, ur NEGATIVE NEGATIVE [facility] [place] Blood, ur NEGATIVE NEGATIVE [facility] [place] Protein, ur, quant NEGATIVE NEGATIVE [facility] [place] Nitrites, ur NEGATIVE NEGATIVE [facility] [place] Leukocyte esterase, ur NEGATIVE NEGATIVE [facility] [place] WBC, ur 0-5 < OR = 5 /HPF [facility] [place] RBC, ur 0-2 < OR = 2 /HPF [facility] [place] Epithelial cells, squamous, ur 0-5 < OR = 5 /HPF [facility] [place] Epithelial cells, transitional CANCELED < OR = 5 /HPF [facility] [place] Comment:Result canceled by t demetrice ancillary Epithelial cells, renal, ur CANCELED < [...] Comment:Result canceled by t he ancillary Comments FEW MUCOUS THREADS [facility] [place] Note CANCELED [facility] [place] Comment:Result canceled by t he ancillary 04/24/2017 9:35 AM CDT 04/24/2017 9:35 AM CDT Narrative Resulting Agency Comment Performing Organization Information: ?Site ID: [place] ?Name: [facility] ?Address: [address] [place] [address] [facility] [place] [address] ?Director: Sukhdev Beverly D.O., MPH us Katy [facility] MICROBI[facility] - GENERAL ORDERABLES Final Result [facility] [place] * C3 complement (04/24/2017 9:35 AM CDT) Complement component C3C 111 90 - 180 mg/dL [facility] [place] Blood specimen (specimen) 04/24/2017 9:35 AM CDT 04/24/2017 9:35 AM CDT Narrative Resulting Agency Comment Performing Organization Information: ?Site ID: [place] ?Name: [facility] ?Address: [place] [address] ?Director: Sukhdev Beverly D.O. MPH Katy [facility] BLOOD ORDERABLES Final Result Performing Organization Address [facility] de Phone Number [place] * C4 complement (04/24/2017 9:35 AM CDT) Complement component C4C 20 16 - 47 mg/dL [facility] [place] Blood specimen (specimen) 04/24/2017 9:35 AM CDT 04/24/2017 9:35 AM CDT Narrative Resulting Agency Comment Performing Organization Information: ?Site ID: [place] ?Name: [facility] ?Address: [address] [place] [address] ?Director: Sukhdev Beverly D.O., MPH Katy [facility] BLOOD ORDERABLES Final Result Performing Organization Address [facility] de Phone Number [place] * (ABNORMAL) ds DNA (04/24/2017 9:35 AM CDT) DNA (DS) ab 14(H) IU/mL [facility] [place] Comment: ? IU/mL ? Interpretation ? < or = 4 ?Negative ? 5-9 ? Indeterminate ? > or = 10 ?? Positive Blood specimen (specimen) 04/24/2017 9:35 AM CDT 04/24/2017 9:35 AM CDT Narrative Resulting Agency Comment Performing Organization Information: ?Site ID: [place] ?Name: [facility] ?Address: [facility] [place] [address] ?Director: Sukhdev Beverly D.O., MPH Katy Prescott [place] LAB BLOOD ORDERABLES Final Result Performing Organization Address City/[facility] Co de Phone Number [facility] [place] [facility] * Erythrocyte sedimentation rate (04/24/2017 9:35 AM CDT) Pathologist [facility] Erythrocyte sedimentation rate 5 < OR = 30 mm/h [facility] Blood specimen (specimen) 04/24/2017 9:35 AM CDT 04/24/2017 9:35 AM CDT Narrative Resulting Agency Comment Performing Organization Information: ?Site ID: [place] ?Name: [facility] ?Address: [facility] [place] [address] ?Director: Juan Bentley MD Katy Prescott [place] LAB BLOOD ORDERABLES Final Result Performing Organization Address [facility] de Phone Number [facility] [place], [place] * CRP (acute phase) (04/24/2017 9:35 AM CDT) C-RP <0.10 <0.80 mg/dL [facility] [place] Comment: Please be advised that patients taking Carboxypenicillins may exhibit falsely decreased C-Reactive Protein levels due to an analytical interference in this assay. Blood specimen (specimen) 04/24/2017 9:35 AM CDT 04/24/2017 9:35 AM CDT Narrative Resulting Agency Comment Performing Organization Information: ?Site ID: [place] ?Name: [facility] ?Address: [facility] [place] [address] ?Director: Sukhdev Beverly D.O., MPH us Katy [facility] BLOOD ORDERABLES Final Result [facility] [place] * (ABNORMAL) Comprehensive metabolic panel (04/24/2017 9:35 AM CDT) Glucose 79 65 - 99 mg/dL [facility] [place] Comment: ? Fasting reference interval BUN 21 7 - 25 mg/dL [facility] [place] Creatinine 0.73 0.50 - 0.99 mg/dL [facility] [place] Comment: For patients >49 years of age, the reference limit for Creatinine is approximately 13% higher for people identified as -Russian. eGFR NON-AFR. [place] 85 > OR = 60 mL/min/1 .73m2 [facility] [place] EGFR 98 > OR = 60 mL/min/1 .73m2 [facility] [place] BUN/creat ratio NOT APPLICABLE 6 - 22 (calc) [facility] [place] Sodium 143 135 - 146 mmol/L [facility] [place] Potassium, pl 3.9 3.5 - 5.3 mmol/L [facility] [place] Chloride 102 98 - 110 mmol/L [facility] [place] CO2 33(H) 20 - 31 mmol/L [facility] [place] Calcium 9.4 8.6 - 10.4 mg/dL [facility] [place] Protein, sr 6.9 6.1 - 8.1 g/dL [facility] [place] Albumin 4.1 3.6 - 5.1 g/dL [facility] [place] Globulin 2.8 1.9 - 3.7 g/dL (calc) [facility] [place] Alb/glob ratio 1.5 1.0 - 2.5 (calc) [facility] [place] Bilirubin, total 0.4 0.2 - 1.2 mg/dL [facility] [place] Alk phos 86 33 - 130 U/L [facility] [place] AST 25 10 - 35 U/L [facility] [place] ALT (SGPT) 25 6 - 29 U/L [facility] [place] Blood specimen (specimen) 04/24/2017 9:35 AM CDT 04/24/2017 9:35 AM CDT Narrative Resulting Agency Comment Performing Organization Information: ?Site ID: [place] ?Name: [facility] ?Address: [address] [place] [phone] ?Director: Sukhdev Beverly D.O., MPH Katy Prescott [place] LAB BLOOD ORDERABLES Final Result [facility] [place] * CBC with auto differential (04/24/2017 9:35 AM CDT) WBC 5.6 3.8 - 10.8 Thousand/ uL [facility] [place] RBC, POC 4.88 3.80 - 5.10 Million/u L [facility] [place] Hgb 13.8 11.7 - 15.5 g/dL [facility] [place] Hct 42.0 35.0 - 45.0 % [facility] [place] MCV 86.2 80.0 - 100.0 fL [facility] [place] MCH 28.3 27.0 - 33.0 pg [facility] [place] MCHC 32.8 32.0 - 36.0 g/dL [facility] [place] Rdw 14.9 11.0 - 15.0 % [facility] [place] Platelets 241 140 - 400 Thousand/ uL [facility] [place] MPV 8.4 7.5 - 12.5 fL [facility] [place] Neutrophils, abs 3,041 1,500 - 7,800 cells/uL [facility] [place] Neutrophil bands, abs CANCELED 0 - 750 cells/uL [facility] [place] Comment:Result canceled by t he ancillary Metamyelocytes, abs CANCELED 0 cells/uL [facility] [place] Comment:Result canceled by t he ancillary Absolute Myelocytes CANCELED 0 cells/uL [facility] [place] Comment:Result canceled by t he ancillary Promyelocytes, abs CANCELED 0 cells/uL [facility] [place] Comment:Result canceled by t he ancillary Lymphocytes, abs 1,674 850 - 3,900 cells/uL [facility] [place] Monocyte abs 672 200 - 950 cells/uL [facility] [place] Eosinophils, abs 157 15 - 500 cells/uL [facility] [place] Basophils, abs 56 0 - 200 cells/uL [facility] [place] Blast, cell CANCELED 0 cells/uL [facility] [place] Comment:Result canceled by t he ancillary NRBC abs CANCELED 0 cells/uL [facility] [place] Comment:Result canceled by t he ancillary Neutrophils 54.3 % [facility] [place] Neutrophilic bands CANCELED % [facility] [place] Comment:Result canceled by t he ancillary Metamyelocyte pct CANCELED % [facility] [place] Comment:Result canceled by t he ancillary Myelocyte pct CANCELED % [facility] [place] Comment:Result canceled by t he ancillary Promyelocyte pct CANCELED % [facility] [place] Comment:Result canceled by t he ancillary Lymphocyte pct 29.9 % [facility] [place] Reactive lymph CANCELED 0 - 10 % [facility] [place] Comment:Result canceled by t he ancillary Monocytes 12.0 % [facility] [place] Eosinophils 2.8 % [facility] [place] Basophils 1.0 % [facility] [place] Blast pct CANCELED % [facility] [place] Comment:Result canceled by t he ancillary NRBC CANCELED 0 /100 WBC [facility] [place] Comment:Result canceled by t he ancillary Comment CANCELED [facility] [place] Comment:Result canceled by t he ancillary Blood specimen (specimen) 04/24/2017 9:35 AM CDT 04/24/2017 9:35 AM CDT Narrative Resulting Agency Comment Performing Organization Information: ?Site ID: ?Name: [facility] ?Address: [facility] [place] [address] ?Director: Juan Bentley MD Katy [facility] LAB BLOOD ORDERABLES Final Result [facility] [place] documented in this encounter Visit Diagnoses Diagnosis Other forms of systemic lupus erythematosus, unspecified organ involvement status (HCC)- Primary group home use of drug documented in this encounter Discontinued Medications Medication Sig Discontinue Reason Start Date End Da te albuterol HFA (PROAIR HFA) 90 mcg/actuation inhaler INHALE 2 PUFFS EVERY 4-6 HOURS NEEDED 08/31/2013 04/24/2017 apixaban (ELIQUIS) 5 mg tablet take 1 tablet by oral route 2 times every day 04/16/2016 04/24/2017 apixaban (ELIQUIS) 5 mg tablet take 1 tablet by oral route 2 times every day 10/04/2016 04/24/2017 cholecalciferol (cholecalciferol) 1,000 unit tablet take 1 by Oral route every 2 days 03/26/2016 04/24/2017 hydroCHLOROthiazide (HYDRODIURIL) 25 mg tablet TAKE 1 TABLET EVERY DAY 10/21/2006 04/24/2017 hydroxychloroquine (PLAQUENIL) 200 mg tablet take 1 tablet by ORAL route every 12 hours 03/26/2016 04/24/2017 metoprolol XL (TOPROL XL) 25 mg 24 hr tablet Take 1 tablet (25 mg total) by mouth daily. 03/04/2017 04/24/2017 montelukast (SINGULAIR) 10 mg tablet TAKE 1 TABLET BY MOUTH ONCE DAILY 10/17/2006 04/24/2017 omeprazole (PriLOSEC) 10 mg capsule take 2 capsule by oral route every day before a meal 05/04/2014 04/24/2017 PARoxetine (PAXIL) 10 mg tablet Take 1 tablet (10 mg total) by mouth every morning. 03/04/2017 04/24/2017 documented as of this encounter Care Teams Livestock Dealer Relationship Specialty Start Date End Date Santiago Bueno MD [address] [facility] [address] [place] [address] PCP - General 11/30/16 06/09/20 documented as of this encounter
--- OUTSIDE RECORDS SUMMARY | 2024-08-29 10:26 | XMS_ITS | Encounter Summary ---
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 - 10/15/2016 12:39 PM [facility] Hospital Encounter [facility] OP INTERIM [phone] Lucrecia Gallegos MD [address] [facility] [address] [place], [place] [id number] Discharge Disposition: Discharge to home or self care Social History Tobacco Use Types Packs/Day Years Used Date Smoking Tobacco: Never Alcohol Use Standard Drinks/Week Comments No 0 (1 standard drink = 0.6 oz pur e alcohol) Comments Unknown Sex and Gender Information Value Date Recorded Sex Assigned at Not on file 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 Surgeon: Lucrecia Gallegos M.D. Dictating: Lucrecia Gallegos M.D. Service Dt: 10/15/2016 OPERATIVE REPORT FACILITY ID: [facility] Lucrecia Gallegos MD FIRST SOLAR PV INSTALLER Haroon Arnold MD PREOPERATIVE DIAGNOSIS Right long ring and small finger triggering. POSTOPERATIVE DIAGNOSIS Right long ring and small finger triggering. PROCEDURE Right long ring and small finger A1 luis alberto release. ANESTHESIA Kinza block with MAC. INDICATION FOR PROCEDURE This is a woman with significant symptomatic triggering. She understands risks, complications, treatment options. Questions were answered. She gives her permission for the procedure. OPERATIVE FINDINGS She had moderate oozing. Because of that, we will have her wait on restarting her Eliquis for 2 days. She did have significant synovitis and clear evidence of triggering. Once we had released, there is no obvious triggering. DESCRIPTION OF PROCEDURE Patient was brought back to the operating room. No DVT prophylaxis is required for this awake ambulatory procedure. She had antibiotics within 1 hour. No further antibiotics are required. Double barrel tourniquet was placed over the arm. MAC anesthesia was induced. The arm was exsanguinated and Kinza block anesthetic was administered. After checking for good anesthetic, standard sterile prep and drape was done after the IV was removed. We began by dividing zigzag incisions at the base of the long ring and small fingers. We then dissected down bluntly, and exposed the flexor tendon sheath carefully protecting the neurovascular bundles. We first started at the small finger and incised, exposed the A1 luis alberto and completely released it. I then released a portion of the A2 luis alberto, as she still appeared to have some catching of the tendon with passive motion. After complete release, there is no longer any catching. We then turned our attention to the long finger. Here, we had quite a bit more synovitis. We incised the A1 luis alberto and a portion of the A2 luis alberto to get a complete release and then turned our attention to the ring finger, dissecting down, exposing the A1 luis alberto, and releasing it as well as a portion of the A2 luis alberto. We let the tourniquet down. We achieved meticulous hemostasis after injecting 0.5% Marcaine. We then irrigated and closed with 4-0 nylon mattress sutures. We placed a soft bulky dressing. She was taken to recovery room in satisfactory condition. ESTIMATED BLOOD LOSS Please see anesthesia sheet. FLUIDS Please see anesthesia sheet. Lucrecia Gallegos was present for the entire case. SPECIMENS None. DRAINS None. PATIENT CONDITION Satisfactory. COUNTS Correct. PLAN ON THIS PATIENT She may leave the dressing clean, dry, and intact as desired, but if it gets dirty, wet, or is uncomfortable, she may remove it in 1 week and then she should wash daily, pat dry, and apply the Slick bandage to protect and add padding. She needs to take it easy and she needs to change the dressing daily if the surgical sterile dressing is removed. Electronically Authenticated and Edited by: Lucrecia Gallegos MD On 11/20/2016 07:23 PM CDT Lucrecia Gallegos M.D. IKF:[facility] #[id number] Editing MT: TD: 10/17/2016 12:00 PM cc: Lucrecia Gallegos M.D. documented in this encounter Plan of Treatment Not on file documented as of this encounter Visit Diagnoses Not on filedocumented in this encounter Care Teams Live Games Dealer Relationship Specialty Start Date End Date Santiago Bueno MD [address] [facility] [address] [place] [address] PCP - General 10/15/16 11/29/16 documented as of this encounter
--- OUTSIDE RECORDS SUMMARY | 2024-08-29 10:26 | XMS_ITS | Encounter Summary ---
Author Organization [facility] Healthcare Address [address] [place] [address] Care Team Providers Care Commercial Art Instructor Name Role Phone Tamar Bueno MD Primary Care Provider [phone] Encounter Details Date Type Department Care Team (Latest Contact Info) Description 02/11/2017 1:05 PM CDT - 02/11/2017 11:59 PM CDT Hospital Encounter [facility] OP INTERIM [phone] Tamar Bueno MD [address] [place] [address] Discharge Disposition: Discharge to home or self care Social History Tobacco Use Types Packs/Day Years Used Date Smoking Tobacco: Never Alcohol Use Standard Drinks/Week Comments No 0 (1 standard drink = 0.6 oz pur e alcohol) Comments Unknown Sex and Gender Information Value Date Recorded Sex Assigned at Not on file Legal Sex Female 12:11 AM TROMPER Gender Identity Not on file Sexual Orientation [...] 4-6 HOURS NEEDED 18 Inhaler 5 08/31/2013 08/23/201 7 albuterol HFA (PROAIR HFA) 90 mcg/actuation [...] Priority Date/Time Associated Diagnosis Comments SCREENING MAMMOGRAM Routine 02/11/2017 6 :48 PM CDT documented in this encounter Results * Screening Mammogram (02/11/2017 6:48 PM CDT) Anatomical Region Laterality Modality Breast N/A Mammography 02/11/2017 6:48 PM CDT Narrative 02/11/2017 6:48 PM CDT DOMINGA VALLE M.D. FINAL REPORT ACC# ??Date Time ??Exam [id number] Feb 11, 2017 13:48:00 WMM [id number] Scr Mamm emi 2v w/MORENA ?? Technologist(s): Angy Villarreal; ; EXAMINATION: ??Mammogram Technique: Bilateral Digital Breast Tomosynthesis, Bilateral C-view 2D Screening mammogram. ??Views obtained: ??bilateral craniocaudal and bilateral mediolateral oblique. ??Computer Aided Detection was performed. Mammogram Findings: The present examination has been compared to prior imaging studies performed at [facility] on 06/10/2013, 05/24/2014 and 09/12/2015. There are scattered areas of fibroglandular density. There is no suspicious abnormality in either breast. IMPRESSION: ??Annual screening mammography is recommended. OVERALL FINAL ASSESSMENT: BI-RADS CATEGORY 1: ??Negative. Requested By: TAMAR BUENO ??M.D. ? Dictated By: ?? DOMINGA VALLE M.D. ??on Feb 13 2017 10:34A This document has been electronically signed by: DOMINGA VALLE M.D. on Feb 13 2017 10:34A [id number] Procedure Note Miscellaneous, Not In File / Provider, MD Ernestina - 02/13/2017 DOMINGA VALLE M.D. FINAL REPORT ACC# Date Time Exam [id number] Feb 11, 2017 13:48:00 WMM [id number] Scr Mamm emi 2v w/MORENA Technologist(s): Angy Villarreal; ; EXAMINATION: Mammogram Technique: Bilateral Digital Breast Tomosynthesis, Bilateral C-view 2D Screening mammogram. Views obtained: bilateral craniocaudal and bilateral mediolateral oblique. Computer Aided Detection was performed. Mammogram Findings: The present examination has been compared to prior imaging studies performed at [facility] on 06/10/2013, 05/24/2014 and 09/12/2015. There are scattered areas of fibroglandular density. There is no suspicious abnormality in either breast. IMPRESSION: Annual screening mammography is recommended. OVERALL FINAL ASSESSMENT: BI-RADS CATEGORY 1: Negative. Requested By: TAMAR BUENO M.D. Dictated By: DOMINGA VALLE M.D. on Feb 13 2017 10:34A This document has been electronically signed by: DOMINGA VALLE M.D. on Feb 13 2017 10:34A [id number] us Not In File Miscellaneous IMG MAMMO PROCEDURES F inal Result documented in this encounter Visit Diagnoses Not on filedocumented in this encounter Care Teams Commercial Art Instructor Relationship Specialty Start Date End Date Tamar Bueno MD [address] [place] [address] PCP - General 11/30/16 06/09/20 documented as of this encounter
--- OUTSIDE RECORDS SUMMARY | 2024-08-29 10:26 | XMS_ITS | Encounter Summary ---
Author Organization [facility] Address [address] [place] [address] Care Team Providers Care Network Security Analyst Name Role Phone Santiago Bueno MD Primary Care Provider [phone] Reason for Visit * Reason Comments Follow-up Hospital-TIA Encounter Details Date Type Department Care Team (Late st Contact Info) Description 04/29/2017 1:00 PM CDT Office Visit [facility] [address] [place] [address] Jessy Jaeger, AUTOMOTIVE REFINISHER [address] [place] [id number] Transient cerebral ischemia, unspecified type (Primary Dx); BMI 31.0-31.9,adult Social History Tobacco Use Types Packs/Day Years Used Date Smoking Tobacco: Never Smokeless Tobacco: Never Alcohol Use Standard Drinks/Week Comments No 0 (1 standard drink = 0.6 oz pur e alcohol) Comments Unknown Sex and Gender Information Value Date Recorded Sex Assigned at Not on file Legal Sex Female 12:11 AM REIMBURSEMENT REP Gender Identity Not on file Sexual Orientation Not on file Occupation Industry Job Start Date Job End Date Retired Not on file Not on file Not on file documented as of this encounter Last Filed Vital Signs Vital Sign Reading Time Taken Comments Blood Pressure 118/86 04/29/2017 12:58 PM CDT Pulse 63 04/29/2017 12:58 PM CDT Temperature - - Respiratory Rate 14 04/29/2017 12:58 PM CDT Oxygen Saturation 96% 04/29/2017 12:58 PM CDT Inhaled Oxygen Concentration - - Weight 71.2 kg (157 lb) 04/29/2017 12:58 PM CDT Height - - Body Mass Index 31.71 04/29/2017 10:16 AM CDT documented in this encounter Patient Instructions * Patient Instructions* Jessy Castellon NP - 04/29/2017 1:00 PM CDT Problem List BMI 31.0-31.9,adult Current Assessment & Plan Body mass index is 31.71 kg/m??. BMI Follow-up includes: nutrition counseling, exercise counseling and education provided. 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 Echo and carotid dopplers negative. Started on asprin 81 mg and already taking eliquis daily. documented in this encounter Progress Notes * Jessy Castellon NP - 04/29/2017 1:00 PM CDT Subjective/Objective Patient ID: Chio Orantes is a 66 y.o. female. Chief Complaint Follow-up (Hospital-TIA) 66 y/o female who lost her memory on April 15 when she was at her sons home. She supposedly call her and asked what am I doing here. She could not remember being at her sons home. She thought he son was still and he is . Her spouse took her to the hospital in [place]. 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 CT scan and MRI was completed. Also echo and carotid dopplersthat were negative. Admitted her to the hospital. The neurologist thought it was a TIA. Having an EEG tomorrow to rule out seizure activity. She was discharged April 17, and has not had issues since prior to admission. Start on low dose asa and elquis continues. Medication and allergies reviewed and updated. Past medical, surgical, family history reviewed and updated. Vital signs and BMI reviewed. Review of Systems Constitutional: Negative. HENT: Negative. Respiratory: Negative. Cardiovascular: Negative. Musculoskeletal: Negative. Neurological: Negative. Psychiatric/Behavioral: Negative. BP 118/86 (BP Location: Left arm, Patient Position: Sitting) Pulse 63 Resp 14 Wt 71.2 kg (157lb) LMP (LMP Unknown) SpO2 96% BMI 31.71 kg/m?? Physical Exam Constitutional: She is oriented [...] and all orders for this visit: 1. Transient cerebral ischemia, unspecified type (Primary) Assessment & Plan: Workup completed in [facility] in [place], [place] CT negative except old infarct from previous CVA. Echo and carotid dopplers negative. Started on asprin 81 mg and already taking eliquis daily. 2. BMI 31.0-31.9,adult Assessment & Plan: Body mass index is 31.71 kg/m??. BMI Follow-up includes: nutrition counseling, exercise counseling and education provided. documented in this encounter Miscellaneous Notes * Assessment & Plan Note - Jessy Castellon NP - 04/29/2017 8:32 PM CDTAssociated Problem(s): BMI 28.0-28.9,adult Body mass index is 31.71 kg/m??. BMI Follow-up includes: nutrition counseling, exercise counseling and education provided. * Assessment & Plan Note - Jessy Castellon NP - 04/29/2017 8:31 PM CDTAssociated Problem(s): TIA (transient ischemic attack) (Resolved 05/13/2018) Workup completed in [facility] in [place], [place] CT negative except old infarct from previous CVA. Echo and carotid dopplers negative. Started on asprin 81 mg and already taking eliquis daily. documented in this encounter Plan of Treatment Not on file documented as of this encounter Visit Diagnoses Diagnosis Transient cerebral ischemia, unspecified type- Primary BMI 31.0-31.9,adult documented in this encounter Historical Medications * This list may reflect changes made after this encounter. apixaban (ELIQUIS) 5 mg tablet 5 mg. 11/12/2018 aspirin 81 mg tablet Take 81 mg by mouth daily. 09/23/2017 added in this encounter Care Teams Network Security Analyst Relationship Specialty Start Date End Date Santiago Bueno MD [address] [facility] [address] [place] [address] PCP - General 11/30/16 06/09/20 documented as of this encounter
--- OUTSIDE RECORDS SUMMARY | 2024-08-29 10:26 | XMS_ITS | Encounter Summary ---
Author Organization [facility] Facility Care Team Providers Care Map Drafter Name Role Phone Santiago Bueno MD Primary Care Provider [phone] Encounter Details Date Type Department Care Team (Latest Contact Info) Description 07/19/2016 4:45 PM CHILD DAY CARE TEACHER - 07/19/2016 11:59 PM [facility] Hospital Encounter [facility] Santiago Bueno MD [address] [address] Allergic contact dermatitis Social History Tobacco Use Types Packs/Day Years Used Date Smoking Tobacco: Never Alcohol Use Standard Drinks/Week Comments No 0 (1 standard drink = 0.6 oz pur e alcohol) Comments Unknown Sex and Gender Information Value Date Recorded Sex Assigned at Not on file Legal Sex Female 12:11 AM CHILD DAY CARE TEACHER Gender Identity Not on file Sexual [...] times every day 0 0 04/16/2016 7 atorvastatin (LIPITOR) 20 mg tablet take [...] Procedure Name Priority Date/Time Associated Diagnosis Comments BLOOD CELL COUNT (CBC), MORPHOLOGIC EXAM Routine 07/19/2016 5:06 PM CHILD DAY CARE TEACHER SERUM IGE, QUANTITATIVE Routine 07/19/2016 11:06 AM CHILD DAY CARE TEACHER SERUM ALLERGEN (RAST) TEST Routine 07/19/2016 11:06 AM CHILD DAY CARE TEACHER REFERENCE LABORATORY MISCELLANEOUS TESTING 07/19/2016 DISCHARGE LABORATORY CUMULATIVE REPORT 07/19/2016 documented in this encounter Results * (ABNORMAL) Blood cell count (CBC), morphologic exam (07/19/2016 5:06 PM CHILD DAY CARE TEACHER) WBC 10.9 4.5 - 11.0 K/cumm CDR HISTORICAL RESULTS RBC 5.00 3.80 - 5.40 M/cumm CDR HISTORICAL RESULTS Hgb 14.2 11.5 - 16.0 g/dl CDR HISTORICAL RESULTS Hct 43.0 34.0 - 48.0 % CDR HISTORICAL RESULTS MCV 86.0 80.0 - 100.0 fl CDR HISTORICAL RESULTS MCH 28.4 27.0 - 33.0 pg CDR HISTORICAL RESULTS MCHC 33.0 32.0 - 36.0 g/dl CDR HISTORICAL RESULTS Rdw 14.5 11.5 - 14.5 % CDR HISTORICAL RESULTS Platelets 302 140 - 400 K/cumm CDR HISTORICAL RESULTS MPV 10.2 7.4 - 10.4 fl CDR HISTORICAL RESULTS Neutrophils 49.6 42.0 - 75.0 % CDR HISTORICAL RESULTS Lymphocytes 35.5 21.0 - 51.0 % CDR HISTORICAL RESULTS Monos 13.4(H) 2.0 - 9.0 % CDR HISTORICAL RESULTS Eosinophils 0.9 0.0 - 10.0 % CDR HISTORICAL RESULTS Basophils 0.6 0.0 - 1.0 % CDR HISTORICAL RESULTS Neutrophils, abs 5.4 1.0 - 6.6 K/cumm CDR HISTORICAL RESULTS Lymphocytes, abs 3.9(H) 1.2 - 3.3 K/cumm CDR HISTORICAL RESULTS Monocytes, absolute 1.5(H) 0.2 - 1.2 K/cumm CDR HISTORICAL RESULTS Eosinophils, abs 0.1 0.0 - 0.5 K/cumm CDR HISTORICAL RESULTS Basophils, abs 0.1 0.0 - 0.2 K/cumm CDR HISTORICAL RESULTS Blood specimen (specimen) 07/19/2016 5:06 PM CHILD DAY CARE TEACHER Santiago Bueno MD LAB BLOOD ORDERABLES Final Res ult CDR HISTORICAL RESULTS * Serum allergen (RAST) test (07/19/2016 11:06 AM CHILD DAY CARE TEACHER) Allergen name Results available electronically in Clinical Desktop under Laboratory - Scanned Lab Reports - reference lab test. CDR HISTORICAL RESULTS Serum 07/19/2016 11:0 6 AM CHILD DAY CARE TEACHER Narrative CDR HISTORICAL RESULTS - 07/31/2016 4:26 AM CHILD DAY CARE TEACHER Test performed at [facility], [facility],[place], [place], [place], [address]. Santiago Bueno MD LAB BLOOD ORDERABLES Final Res ult CDR HISTORICAL RESULTS * Serum IgE, quantitative (07/19/2016 11:06 AM CHILD DAY CARE TEACHER) IgE 68.7 1.0 - 100.0 IUnits/ml CDR HISTORICAL RESULTS Serum 07/19/2016 11:0 6 AM CHILD DAY CARE TEACHER Narrative CDR HISTORICAL RESULTS - 07/19/2016 4:32 PM CHILD DAY CARE TEACHER Test performed at [facility], [address] [facility] [address] [place], [place], [place], [address]. Santiago Bueno MD LAB BLOOD ORDERABLES Final Res ult CDR HISTORICAL RESULTS * DISCHARGE LABORATORY CUMULATIVE REPORT (07/19/2016) Narrative 07/19/2016 Ordered by an unspecified provider. Historical Provider LAB BLOOD ORDERABLES Callie l Result * REFERENCE LABORATORY MISCELLANEOUS TESTING (07/19/2016) Narrative 07/19/2016 Ordered by an unspecified provider. Historical Provider LAB BLOOD ORDERABLES Callie l Result documented in this encounter Visit Diagnoses Diagnosis Allergic contact dermatitis documented in this encounter Care Teams Map Drafter Relationship Specialty Start Date End Date Santiago Bueno MD [address] [place] [address] PCP - General 09/03/06 10/14/16 documented as of this encounter
--- OUTSIDE RECORDS SUMMARY | 2024-08-29 10:27 | XMS_ITS | Encounter Summary ---
Author Organization [facility] Address [address] [place] [address] Phone Care Team Providers Care Actuarial Clerk Name Role Phone Santiago Bueno MD Primary Care Provider [phone] Santiago Bueno MD Primary Care Provider [phone] Santiago Bueno MD Primary Care Provider [phone] Gladis Song MD Unavailable Silvia Granger DPT Unavailable [phone] No, Physician Primary Care Provider [phone] Santiago Bueno MD Primary Care Provider [phone] Gabriel Persaud MD Primary Care Provider Santiago Bueno MD Primary Care Provider [phone] Thi Lugo MD Primary Care Provider [phone] Santiago Bueno MD Primary Care Provider [phone] Thi Lugo MD Primary Care Provider [phone] Emily Jordan MD Primary Care Provider [phone] Encounter Details Date Type Department Care Team (Latest Contact Info) Description 03/24/2016 Orders Only [facility] Scanning, Provider Social History Tobacco Use Types Packs/Day Years Used Date Smoking Tobacco: Never Alcohol Use Standard Drinks/Week Comments No 0 (1 standard drink = 0.6 oz pur e alcohol) Comments Unknown Sex and Gender Information Value Date Recorded Sex Assigned at Not on file Legal Sex Female 12:11 AM GUIDE RAIL CLEANER Gender Identity Not on file Sexual Orientation Not on file documented as of this encounter Plan of Treatment Not on file documented as of this encounter Procedures Procedure Name Priority Date/Time Associated Diagnosis Comments SCAN - RADIOLOGY/IMAGING 03/24/2016 documented in this encounter Results * SCAN - RADIOLOGY/IMAGING (03/24/2016) Anatomical Region Laterality Modality Other Provider Scanning Final Result documented in this encounter Visit Diagnoses Not on filedocumented in this encounter Care Teams Actuarial Clerk Relationship Specialty Start Date End Date Santiago Bueno MD [address] [place] [address] PCP - General 11/30/16 06/09/20 Santiago Bueno MD [address] [facility] [address] [place] [address] PCP - General 10/15/16 11/29/16 Santiago Bueno MD [address] [facility] [address] [place] [address] PCP - General 09/03/06 10/14/16 No, Physician PCP - General 06/10/20 10/30/20 Santiago Bueno MD [address] [facility] [address] [place] [address] PCP - General Internal Medicine 10/31/20 11/28/20 Gabriel Persaud MD [address] [address] PCP - General Family Medicine 11/29/20 12/01/20 Santiago Bueno MD [address] [place] [address] PCP - General 12/02/20 10/12/21 Thi Lugo MD [address] [place] [address] PCP - General Family Medicine 10/13/21 10/17/21 Santiago Bueno MD [address] [place] [address] PCP - General 10/18/21 02/18/22 Thi Lugo MD [address] [place] [address] PCP - General Family Medicine 02/19/22 07/19/24 Emily Jordan MD [address] [place], [place] [address] PCP - General Family Medicine 07/20/24 [place] [address] [facility] [address] [place] [address] Rheumatology 07/15/17 Silvia Granger DPT [address] [facility] [address] [place] [address] Physical Therapist Physical Therapy 04/14/20 06/09/20 documented as of this encounter
--- OUTSIDE RECORDS SUMMARY | 2024-08-29 10:28 | XMS_ITS | Encounter Summary ---
Author Organization [facility] Facility Care Team Providers Care Pump House Engineer Name Role Phone Santiago Bueno MD Primary Care Provider [phone] Encounter Details Date Type Department Care Team (Latest Contact Info) Description 07/12/2015 12:05 PM FUN HOUSE OPERATOR - 07/12/2015 11:59 PM [facility] Hospital Encounter [facility] Santiago Bueno MD [address] [facility] [address] [place] [address] Other nonspecific abnormal finding of lung field Social History Tobacco Use Types Packs/Day Years Used Date Smoking Tobacco: Never Alcohol Use Standard Drinks/Week Comments No 0 (1 standard drink = 0.6 oz pur e alcohol) Comments Unknown Sex and Gender Information Value Date Recorded Sex Assigned at Not on file Legal Sex Female 12:11 AM FUN HOUSE OPERATOR Gender Identity Not on file Sexual Orientation Not on file documented as of this encounter Medications at Time of Discharge cholecalciferol (VITAMIN D3) 2,000 unit tablet take 1 by Oral route every day 0 0 11/30/2014 albuterol HFA (PROAIR HFA) 90 mcg/actuation inhaler INHALE 2 PUFFS EVERY 4-6 HOURS NEEDED 18 Inhaler 5 08/31/2013 04/24/2017 albuterol HFA (PROAIR HFA) 90 mcg/actuation inhaler INHALE 2 PUFFS EVERY 4-6 HOURS NEEDED 8.5 5 08/31/2013 05/22/2017 atorvastatin (LIPITOR) 80 mg tablet TAKE 1 TABLET EVERY DAY 30 3 05/02/2015 04/04/2018 hydroCHLOROthiazi de (HYDRODIURIL) 25 mg tablet TAKE 1 TABLET EVERY DAY 90 1 10/21/2006 03/04/2017 hydroCHLOROthiazi de (HYDRODIURIL) 25 mg tablet TAKE 1 TABLET EVERY DAY 90 3 10/21/2006 04/24/2017 hydroxychloroquin e (PLAQUENIL) 200 mg tablet TAKE 1 TABLET BY MOUTH EVERY 12 HOURS 180 1 05/04/2014 07/13/2017 metoprolol XL (TOPROL XL) 25 mg 24 hr tablet take 1 tablet by oral route every day 0 0 05/04/2014 03/04/2017 montelukast (SINGULAIR) 10 mg tablet TAKE 1 TABLET BY MOUTH ONCE DAILY 30 5 10/17/2006 04/24/2017 montelukast (SINGULAIR) 10 mg tablet TAKE ONE BY MOUTH ONE TIME PER DAY 30 5 10/17/2006 01/31/2018 omeprazole (PriLOSEC) 10 mg capsule take 2 capsule by oral route every day before a meal 0 0 05/04/2014 04/24/2017 omeprazole (PriLOSEC) 20 mg capsule TAKE ONE CAPSULE BY MOUTH TWICE A DAY 180 0 10/17/2006 04/25/2017 PARoxetine (PAXIL) 20 mg tablet TAKE 1 TABLET BY MOUTH EVERY DAY 30 2 10/17/2006 03/26/2017 PARoxetine (PAXIL) 20 mg tablet take 1 tablet by oral route every day 0 0 05/04/2014 06/25/2017 documented as of this encounter Plan of Treatment Not on file documented as of this encounter Procedures Procedure Name Priority Date/Time Associated Diagnosis Comments XR CHEST PA LATERAL 2 VIEWS Routine 07/12/2015 12:18 PM FUN HOUSE OPERATOR documented in this encounter Results * XR Chest Pa Lateral 2 Views (07/12/2015 12:18 PM FUN HOUSE OPERATOR) Anatomical Region Laterality Modality Body, Chest N/A Radiographic Ashley ging 07/12/2015 12:1 8 PM FUN HOUSE OPERATOR Narrative 07/12/2015 12:52 PM FUN HOUSE OPERATOR WHITNEY VENEGAS M.D. FINAL REPORT ACC# ??Date Time ??Exam [id number] Jul 12, 2015 12:18:00 [id number] Chest 2 views Frontl & Lat EXAMINATION: ?? Chest ??Two views HISTORY: Dyspnea on exertion COMPARISON: 12/12/2011 FINDINGS: The aorta is tortuous Heart and mediastinum are unremarkable. The pulmonary vascularity appears normal. Lungs are clear. No pleural effusion or pneumothorax is seen. IMPRESSION: ? No acute disease Requested By: Dictated By: ?? WHITNEY VENEGAS M.D. ??on Jul 12 2015 12:52P This document has been electronically signed by: WHITNEY VENEGAS M.D. on Jul 12 2015 12:52P [id number] Procedure Note Provider, MD Ernestina - 02/07/2017 WHITNEY VENEGAS M.D. FINAL REPORT ACC# Date Time Exam [id number] Jul 12, 2015 12:18:00 [id number] Chest 2 views Frontl & Lat EXAMINATION: Chest Two views HISTORY: Dyspnea on exertion COMPARISON: 12/12/2011 FINDINGS: The aorta is tortuous Heart and mediastinum are unremarkable. The pulmonary vascularity appears normal. Lungs are clear. No pleural effusion or pneumothorax is seen. IMPRESSION: No acute disease Requested By: Dictated By: WHITNEY VENEGAS M.D. on Jul 12 2015 12:52P This document has been electronically signed by: WHITNEY VENEGAS M.D. on Jul 12 2015 12:52P [id number] us Historical Provider MD [place] XR PROCEDURES Final R esult documented in this encounter Visit Diagnoses Diagnosis Other nonspecific abnormal finding of lung field documented in this encounter Care Teams Pump House Engineer Relationship Specialty Start Date End Date Santiago Bueno MD [address] [place] [address] PCP - General 09/03/06 10/14/16 documented as of this encounter
--- OUTSIDE RECORDS SUMMARY | 2024-08-29 10:28 | XMS_ITS | Encounter Summary ---
Author Organization [facility] Facility Care Team Providers Care Lower School Spanish Teacher Name Role Phone Santiago Bueno MD Primary Care Provider [phone] Encounter Details Date Type Department Care Team (Latest Contact Info) Description 09/28/2015 12:56 PM CREATIVE MANAGER - 09/28/2015 11:59 PM CREATIVE MANAGER Hospital Encounter [facility] Santiago Bueno MD [address] [address] Solitary cyst of left breast Social History Tobacco Use Types Packs/Day Years Used Date Smoking Tobacco: Never Alcohol Use Standard Drinks/Week Comments No 0 (1 standard drink = 0.6 oz pur e alcohol) Comments Unknown Sex and Gender Information Value Date Recorded Sex Assigned at Not on file Legal Sex Female 12:11 AM CREATIVE MANAGER Gender Identity Not on file Sexual [...] Name Priority Date/Time Associated Diagnosis Comments US BREAST LIMITED Routine 09/28/2015 2:4 0 PM CREATIVE MANAGER documented in this encounter Results * US Breast Limited (09/28/2015 2:40 PM CREATIVE MANAGER) Anatomical Region Laterality Modality Breast N/A Ultrasound 09/28/2015 2:40 PM CREATIVE MANAGER Narrative 09/28/2015 3:57 PM CREATIVE MANAGER YANIV GLASER M.D. DON ENAMORADO M.D. FINAL REPORT The radiology attending physician has personally reviewed this study, and has reviewed and/or edited this written report and agrees with it. ACC# ??Date Time ??Exam [id number] Sep 28, 2015 14:40:00 W9U [id number] US BREAST UNI W AXIL LIMIT L EXAMINATION: ?? LEFT BREAST SONOGRAM HISTORY: ??Recent mammogram obtained at [facility] demonstrated a 7 mm oval mass with circumscribed margins in the middle central left breast. FINDINGS: Directed sonogram of the inner left breast at the 9:00 position was performed. ??There is a 6 mm oval anechoic lesion with circumscribed margins, a nearly imperceptible wall, and no internal vascularity that correlates with the mammographic finding of concern. IMPRESSION: ?? 6 mm simple cyst corresponding to the finding of concern on recent mammogram. ?? OVERALL FINAL ASSESSMENT: BI-RADS Category 2: Benign finding. RECOMMENDATION: Annual screening mammography in September 2016. Requested By: Dictated By: ?? DON ENAMORADO M.D. ??on Sep 28 2015 ??2:45P This document has been electronically signed by: YANIV GLASER M.D. on Sep 28 2015 ??3:57P [id number] Procedure Note Provider, MD Ernestina - 01/03/2017 YANIV GLASER M.D. DON ENAMORADO M.D. FINAL REPORT The radiology attending physician has personally reviewed this study, and has reviewed and/or edited this written report and agrees with it. ACC# Date Time Exam [id number] Sep 28, 2015 14:40:00 W9U [id number] US BREAST UNI W AXIL LIMIT L EXAMINATION: LEFT BREAST SONOGRAM HISTORY: Recent mammogram obtained at [facility] demonstrated a 7 mm oval mass with circumscribed margins in the middle central left breast. FINDINGS: Directed sonogram of the inner left breast at the 9:00 position was performed. There is a 6 mm oval anechoic lesion with circumscribed margins, a nearly imperceptible wall, and no internal vascularity that correlates with the mammographic finding of concern. IMPRESSION: 6 mm simple cyst corresponding to the finding of concern on recent mammogram. OVERALL FINAL ASSESSMENT: BI-RADS Category 2: Benign finding. RECOMMENDATION: Annual screening mammography in September 2016. Requested By: Dictated By: DON ENAMORADO M.D. on Sep 28 2015 2:45P This document has been electronically signed by: YANIV GLASER M.D. on Sep 28 2015 3:57P [id number] us Historical Provider MD [place] US PROCEDURES Final R esult documented in this encounter Visit Diagnoses Diagnosis Solitary cyst of left breast documented in this encounter Care Teams Lower School Spanish Teacher Relationship Specialty Start Date End Date Santiago Bueno MD [address] [facility] [address] [place] [address] PCP - General 09/03/06 10/14/16 documented as of this encounter
--- OUTSIDE RECORDS SUMMARY | 2024-08-29 10:28 | XMS_ITS | Encounter Summary ---
Author Organization [facility] Care Team Providers Care Mothers Helper Name Role Phone Santiago Bueno MD Primary Care Provider [phone] Encounter Details Date Type Department Care Team (Late st Contact Info) Description 05/21/2013 2:15 PM CDT Hospital Encounter [facility] Tatum Benito, [employer] DEAN [address] [place] [address] Dysuria Social History Tobacco Use Types Packs/Day Years Used Date Smoking Tobacco: Never Assessed Comments Unknown Sex and Gender Information Value Date Recorded Sex Assigned at Not on file 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 Gender Identity Not on file Sexual Orientation Not on file documented as of this encounter Medications at Time of Discharge hydroCHLOROthiazi de (HYDRODIURIL) 25 mg tablet TAKE 1 TABLET EVERY DAY 90 1 10/21/2006 03/04/2017 hydroCHLOROthiazi de (HYDRODIURIL) 25 mg tablet TAKE 1 TABLET EVERY DAY 90 3 10/21/2006 04/24/2017 montelukast (SINGULAIR) 10 mg tablet TAKE [...] MOUTH EVERY DAY 30 2 10/17/2006 03/26/2017 documented as of this encounter Plan of Treatment Not on file documented as of this encounter Procedures Procedure Name Priority Date/Time Associated Diagnosis Comments URINALYSIS Routine 05/21/2013 10:51 AM CDT URINE MICROBIOLOGY Routine 05/21/2013 12 :00 AM CDT DISCHARGE LABORATORY CUMULATIVE REPORT 05/21/2013 documented in this encounter Results * (ABNORMAL) Urinalysis (05/21/2013 10:51 AM CDT) Specific gravity, ur 1.015 1.000 - 1.025 HISTORICAL RESULTS pH, ur 6.0 5.0 - 9.0 HISTORICAL RESULTS Leukocyte esterase, ur Negative Negative HISTORICAL RESULTS Nitrites, ur Negative Negative HISTORI LEELA RESULTS Protein, ur Negative Negative HISTORIC AL RESULTS Glucose, ur Negative Negative HISTORIC AL RESULTS Ketones, ur Negative Negative HISTORIC AL RESULTS Urobilinogen, quant, ur Normal Normal mg/dl HISTORICAL RESULTS Bilirubin, ur ++(A) Negative HISTOR ICAL RESULTS Comment:UNABLE TO CONFIRM BI LIRUBIN DUE TO SHORTAGE IN REAGENTS. RBC, ur Negative Negative HISTORICAL RESULTS Color, ur Yellow Yellow HISTORICAL RESULTS Clarity, ur Clear Clear HISTORIC AL RESULTS Urine 05/21/2013 10:5 1 AM CDT Tatum Benito [employer] [facility] LAB BLOOD ORDERABLES Final R esult HISTORICAL RESULTS * Urine Microbiology (05/21/2013 12:00 AM CDT) 05/21/2013 12:0 0 AM CDT Narrative HISTORICAL RESULTS - 05/23/2013 12:23 PM CDT ?[facility] Microbiology ? [address] [facility] ??[place], [place] ??[address] ? Tele: ?Lacey Martinez M.D. - Warehousing Technician ?? Candida Adams - Laboratory ? Magisterial District Judge ?? Patient: MIRELLA ORANTES ? Admission #: ??[id number] ?? : 1950 ?Location: [facility] [place] ?? Gender: F ?? Admit Date: 05/21/2013 ? = = = = = = = = = = = = = = = = = = = = = = = = = = = = = = = = = = = = = = Urine Culture ? Final ?? Urine ? Clean Voided ?? Collected: ??05/21/2013 10:51 ?? Inoculated: ??05/22/2013 11:28 ?? Report Date: ??05/23/2013 11:24 ? Culture Result ?Growth indicative of contamination with jazmine-urethral courtney. ?? Performed at [facility] Lab, [address] [place], [place], [place], [address] = = = = = = = = = = = = = = = = = = = = = = = = = = = = = = = = = = = = = ? Physician: ?[facility] Microbiology Report-ClinDesk ? Historical Provider LAB MICROBIOLOGY - GENERA L ORDERABLES Final Result HISTORICAL RESULTS * DISCHARGE LABORATORY CUMULATIVE REPORT (05/21/2013) Narrative 05/21/2013 Ordered by an unspecified provider. Historical Provider LAB BLOOD ORDERABLES Callie l Result documented in this encounter Visit Diagnoses Diagnosis Dysuria documented in this encounter Care Teams Mothers Helper Relationship Specialty Start Date End Date Santiago Bueno MD [address] [facility] [address] [place] [address] PCP - General 09/03/06 10/14/16 documented as of this encounter
--- OUTSIDE RECORDS SUMMARY | 2024-08-29 10:28 | XMS_ITS | Encounter Summary ---
Author Organization [facility] Facility Care Team Providers Care Supervisor Scouring Pads Name Role Phone Santiago Bueno MD Primary Care Provider [phone] Encounter Details Date Type Department Care Team (Latest Contact Info) Description 05/22/2012 10:10 AM T Hospital Encounter [facility] Anton Vigil MD [address] [id number] [place] [address] Lumbosacral spondylosis without myelopathy; Other back symptoms; Primary localized osteoarthrosis, lower leg Social History Tobacco Use Types Packs/Day Years Used Date Smoking Tobacco: Never Assessed Comments Unknown Sex and Gender Information Value Date Recorded Sex Assigned at Not on file 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
--- OUTSIDE RECORDS SUMMARY | 2024-08-29 10:28 | XMS_ITS | Encounter Summary ---
Author Organization [facility] Facility Care Team Providers Care Plug And Mold Finisher Name Role Phone Tamar Bueno MD Primary Care Provider [phone] Encounter Details Date Type Department Care Team (Latest Contact Info) Description 05/21/2013 9:54 AM CDT Hospital Encounter [facility] Tamar Bueno MD [address] [address] Other screening mammogram; Other abnormal findings on radiological examination of breast Social History Tobacco Use Types Packs/Day Years Used Date Smoking Tobacco: Never Assessed Comments Unknown Sex and Gender Information Value Date Recorded Sex Assigned at Not on file 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 FINAL REPORT ACC# ??Date Time ??Exam [id number] May 21, 2013 10:11:00 WMM [id number] Screening Mamm Bilat 2v ?? Technologist(s): Angy Villarreal; ; EXAMINATION: ??Mammogram Findings: A Full-Field Digital Screening Mammogram was performed. ??Views obtained: bilateral craniocaudal; bilateral mediolateral oblique. Computer Aided Detection was performed with GridCraft.3 version 9.3. The present examination has been compared to a prior imaging study performed at [facility] on 06/24/2006. There are scattered fibroglandular densities. There are heterogeneous calcifications with grouped distribution in the upper outer quadrant of the right breast. There is no suspicious abnormality in the left breast. IMPRESSION: ??Calcifications in the right breast require additional evaluation. Additional views are recommended. OVERALL FINAL ASSESSMENT: BI-RADS CATEGORY 0: ??Incomplete: ??Need additional imaging evaluation. Requested By: TAMAR BUENO ??Jean Dictated By: ?? VAN DAVID M.D. ??on May 26 2013 ??7:36A This document has been electronically signed by: VAN DAVID M.D. on May 26 2013 ??7:36A Procedure Note Provider, MD Ernestina - 01/03/2017 VAN FARRIA, M.D. FINAL REPORT ACC# Date Time Exam [id number] May 21, 2013 10:11:00 [facility] [id number] Screening Mamm Bilat 2v Technologist(s): Angy Villarreal; ; EXAMINATION: Mammogram Findings: A Full-Field Digital Screening Mammogram was performed. Views obtained: bilateral craniocaudal; bilateral mediolateral oblique. Computer Aided Detection was performed with GridCraft.3 version 9.3. The present examination has been compared to a prior imaging study performed at [facility] on 06/24/2006. There are scattered fibroglandular densities. There are heterogeneous calcifications with grouped distribution in the upper outer quadrant of the right breast. There is no suspicious abnormality in the left breast. IMPRESSION: Calcifications in the right breast require additional evaluation. Additional views are recommended. OVERALL FINAL ASSESSMENT: BI-RADS CATEGORY 0: Incomplete: Need additional imaging evaluation. Requested By: TAMAR BUENO M.D. Dictated By: VAN DAVID M.D. on May 26 2013 7:36A This document has been electronically signed by: VAN DAVID M.D. on May 26 2013 7:36A Historical Provider MD [place] MAMMO PROCEDURES Callie l Result documented in this encounter Visit Diagnoses Diagnosis Other screening mammogram Other abnormal findings on radiological examination of breast documented in this encounter Care Teams Plug And Mold Finisher Relationship Specialty Start Date End Date Tamar Bueno MD [address] [facility] [address] [place] [address] PCP - General 09/03/06 10/14/16 documented as of this encounter
--- OUTSIDE RECORDS SUMMARY | 2024-08-29 10:28 | XMS_ITS | Encounter Summary ---
Author Organization [facility] Facility Care Team Providers Care Operational Trainer Name Role Phone Santiago Bueno MD Primary Care Provider [phone] Encounter Details Date Type Department Care Team (Latest Contact Info) Description 11/30/2014 10:29 AM CDT - 11/30/2014 11:59 PM T Hospital Encounter [facility] Santiago Bueno MD [address] [facility] [address] [place] [address] Disorder of bone and cartilage Social History Tobacco Use Types Packs/Day Years Used Date Smoking Tobacco: Never Alcohol Use Standard Drinks/Week Comments Yes 0 (1 standard drink = 0.6 oz pur e alcohol) Comments Unknown Sex and Gender Information Value Date Recorded Sex Assigned at Not on file 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 Gender Identity Not on file Sexual [...] 4-6 HOURS NEEDED 8.5 5 08/31/2013 05/22/2017 hydroCHLOROthiazi de (HYDRODIURIL) 25 mg tablet TAKE [...] Name Priority Date/Time Associated Diagnosis Comments BONE DENSITY, TRANSMISSION Routine 11/30/2014 11:26 AM CDT documented in this encounter Results * BONE DENSITY, TRANSMISSION (11/30/2014 11:26 AM CDT) Anatomical Region Laterality Modality N/A Radiographic Ashley ging 11/30/2014 11:2 6 AM CDT Narrative 11/30/2014 3:39 PM CDT CARLITO PFEIFFER, FINAL REPORT ACC# ??Date Time ??Exam [id number] Nov 30, 2014 11:26:00 [id number] BONE DEXA Axial EXAMINATION: ??BONE DENSITOMETRY OF THE SPINE AND HIP DATE OF STUDY: ??11/30/2014 HISTORY: ??64-year-old postmenopausal woman. She is being treated with vitamin D supplements. ??Evaluate bone mineral density. FINDINGS (SPINE): The bone mineral density of L1-L4 was assessed by dual-energy x-ray absorptiometry. The average bone mineral density within this region is 0.937 gm/sq-cm. This is 0.8 standard deviations above the mean of the average bone mineral density for age- and gender-matched subjects (the Z-score). It is 1.0 standard deviations below the mean peak bone mineral density in young adults (the T-score). FINDINGS (FEMORAL NECK): The bone mineral density of the left femoral neck was assessed by dual-energy x-ray absorptiometry. The average bone mineral density within the femoral neck region is 0.763 gm/sq-cm. This is 0.8 standard deviations above the mean of the average bone mineral density for age- and gender-matched subjects (the Z-score). It is 0.8 standard deviations below the mean peak bone mineral density in young adults (the T-score). FINDINGS (TOTAL HIP): The bone mineral density of the left hip was assessed by dual-energy x-ray absorptiometry. The average bone mineral density within the total hip region is 0.933 gm/sq-cm. This is 1.2 standard deviations above the mean of the average bone mineral density for age- and gender-matched subjects (the Z-score). It is 0.1 standard deviations below the mean peak bone mineral density in young adults (the T-score). SUMMARY OF CURRENT RESULTS: Region ? Exam Date ?BMD ?T-Score ??Z-Score AP Spine (L1-L4) ? 11/30/2014 ?? 0.937 ?? -1.0 ?0.8 Femoral Neck (Left) ?11/30/2014 ?? 0.763 ?? -0.8 ?0.8 Total Hip (Left) ? 11/30/2014 ?? 0.933 ?? -0.1 ?1.2 COMPARISON WITH PREVIOUS RESULTS Region ? Age ?BMD ?? T-Score ?? BMD Change ? BMD Change Exam Date ?g/cm2 ?vs Baseline ?vs Previous AP Spine(L1-L4) 11/30/2014 ??64 ?0.937 ?-1.0 ? 3.1%* ? 2.7%* 06/05/2011 ??60 ?0.912 ?-1.2 ? 0.3% ?1.6% 01/20/2009 ??58 ?0.897 ?-1.4 ?-1.3% ? -1.3% 07/29/2006 ??55 ?0.909 ?-1.3 Total Hip(Left) 11/30/2014 ??64 ?0.933 ?-0.1 ? 7.6%* ?-2.9%* 06/05/2011 ??60 ?0.961 ? 0.2 ?10.9%* ? 9.4%* 01/20/2009 ??58 ?0.879 ?-0.5 ? 1.4% ?1.4% 07/29/2006 ??55 ?0.867 ?-0.6 * Indicates significant change ?? IMPRESSION: ??- 1. The bone mineral density of the lumbar spine is normal. There has been a statistically significant increase in bone mineral density since the baseline examination of 07/29/2006. 2. The bone mineral density of the left femoral neck is normal. 3. The bone mineral density of the left total hip is normal. There has been a statistically significant increase in bone mineral density since the baseline examination of 07/29/2006. 4. Overall, the above findings are normal by WHO criteria. 5. Calculation of fracture risk using the FRAX model is not appropriate in certain settings. ??It was not performed in this patient because the patient met one or more of the following conditions: ??pre-menopausal status, man under age 50, normal bone density, use of hormonal therapy within 1 year, use of anti-resorptive therapy within two years, or bilateral hip replacements. General comments regarding interpretation of bone mineral density measurements: a) ??In children, premenopausal woman and males under [...] is consistent with a diagnosis of osteoporosis. b) ??In post menopausal women and males over [...] patients move from the younger population (group a) to the older population (group b) The National Osteoporosis Foundation (www.nof.org) recommends adequate intake of calcium and vitamin D and regular weight-bearing exercise in all patients. ??They recommend pharmacologic treatment in postmenopausal women and men age 50 and older presenting with any of the followin) ? Osteoporosis, after appropriate evaluation to exclude secondary causes. 2) ? A hip or vertebral (clinical or radiographic) fracture, regardless of the bone density. 3) ? Low bone mass (Osteopenia) and one or more of: other prior fractures, secondary causes associated with high risk of fracture (such as glucocorticoid use or total immobilization), or computed high risk of fracture (10-yr probability of hip fracture >= 3% or a 10-yr probability of any major osteoporosis-related fracture >= 20% based on the [place].-adapted WHO algorithm), available at http://www.shef.ac.uk/FRAX). ?? Requested By: Dictated By: ?? CARLITO PFEIFFER, ?? on Nov 30 2014 12:04P This document has been electronically signed by: CARLITO KENTRELL, ??on Nov 30 2014 ??3:39P Procedure Note Provider, MD Ernestina - 01/03/2017 CARLITO PFEIFFER, FINAL REPORT ACC# Date Time Exam [id number] Nov 30, 2014 11:26:00 [id number] BONE DEXA Axial EXAMINATION: BONE DENSITOMETRY OF THE SPINE AND HIP DATE OF STUDY: 11/30/2014 HISTORY: 64-year-old postmenopausal woman. She is being treated with vitamin D supplements. Evaluate bone mineral density. FINDINGS (SPINE): The bone mineral density of L1-L4 was assessed by dual-energy x-ray absorptiometry. The average bone mineral density within this region is 0.937 gm/sq-cm. This is 0.8 standard deviations above the mean of the average bone mineral density for age- and gender-matched subjects (the Z-score). It is 1.0 standard deviations below the mean peak bone mineral density in young adults (the T-score). FINDINGS (FEMORAL NECK): The bone mineral density of the left femoral neck was assessed by dual-energy x-ray absorptiometry. The average bone mineral density within the femoral neck region is 0.763 gm/sq-cm. This is 0.8 standard deviations above the mean of the average bone mineral density for age- and gender-matched subjects (the Z-score). It is 0.8 standard deviations below the mean peak bone mineral density in young adults (the T-score). FINDINGS (TOTAL HIP): The bone mineral density of the left hip was assessed by dual-energy x-ray absorptiometry. The average bone mineral density within the total hip region is 0.933 gm/sq-cm. This is 1.2 standard deviations above the mean of the average bone mineral density for age- and gender-matched subjects (the Z-score). It is 0.1 standard deviations below the mean peak bone mineral density in young adults (the T-score). SUMMARY OF CURRENT RESULTS: Region Exam Date BMD T-Score Z-Score AP Spine (L1-L4) 11/30/2014 0.937 -1.0 0.8 Femoral Neck (Left) 11/30/2014 0.763 -0.8 0.8 Total Hip (Left) 11/30/2014 0.933 -0.1 1.2 COMPARISON WITH PREVIOUS RESULTS Region Age BMD T-Score BMD Change BMD Change Exam Date g/cm2 vs Baseline vs Previous AP Spine(L1-L4) 11/30/2014 64 0.937 -1.0 3.1%* 2.7%* 06/05/2011 60 0.912 -1.2 0.3% 1.6% 01/20/2009 58 0.897 -1.4 -1.3% -1.3% 07/29/2006 55 0.909 -1.3 Total Hip(Left) 11/30/2014 64 0.933 -0.1 7.6%* -2.9%* 06/05/2011 60 0.961 0.2 10.9%* 9.4%* 01/20/2009 58 0.879 -0.5 1.4% 1.4% 07/29/2006 55 0.867 -0.6 * Indicates significant change IMPRESSION: - 1. The bone mineral density of the lumbar spine is normal. There has been a statistically significant increase in bone mineral density since the baseline examination of 07/29/2006. 2. The bone mineral density of the left femoral neck is normal. 3. The bone mineral density of the left total hip is normal. There has been a statistically significant increase in bone mineral density since the baseline examination of 07/29/2006. 4. Overall, the above findings are normal by WHO criteria. 5. Calculation of fracture risk using the FRAX model is not appropriate in certain settings. It was not performed in this patient because the patient met one or more of the following conditions: pre-menopausal status, man under age 50, normal bone density, use of hormonal therapy within 1 year, use of anti-resorptive therapy within two years, or bilateral hip replacements. General comments regarding interpretation of bone mineral density measurements: a) In children, premenopausal woman and males under [...] is consistent with a diagnosis of osteoporosis. b) In post menopausal women and males over [...] patients move from the younger population (group a) to the older population (group b) The National Osteoporosis Foundation (www.nof.org) recommends adequate intake of calcium and vitamin D and regular weight-bearing exercise in all patients. They recommend pharmacologic treatment in postmenopausal women and men age 50 and older presenting with any of the followin) Osteoporosis, after appropriate evaluation to exclude secondary causes. 2) A hip or vertebral (clinical or radiographic) fracture,regardless of the bone density. 3) Low bone [...] the [place].-adapted WHO algorithm), available at http://www.shef.ac.uk/FRAX). Requested By: Dictated By: CARLITO PFEIFFER on Nov 30 2014 12:04P This document has been electronically signed by: CARLITO PFEIFFER on Nov 30 2014 3:39P us Historical Provider MD [place] XR PROCEDURES Final R esult documented in this encounter Visit Diagnoses Diagnosis Disorder of bone and cartilage Disorder of bone and cartilage, unspecified documented in this encounter Care Teams Operational Trainer Relationship Specialty Start Date End Date Santiago Bueno MD [address] [place] [address] PCP - General 09/03/06 10/14/16 documented as of this encounter
--- OUTSIDE RECORDS SUMMARY | 2024-08-29 10:28 | XMS_ITS | Encounter Summary ---
Author Organization [facility] Facility Care Team Providers Care Feeder Tender Name Role Phone Santiago Bueno MD Primary Care Provider [phone] Encounter Details Date Type Department Care Team (Latest Contact Info) Description 05/24/2014 9:16 AM CDT - 05/24/2014 11:59 PM T Hospital Encounter [facility] Santiago Bueno MD [address] [facility] [address] [place] [address] Other screening mammogram Social History Tobacco Use Types Packs/Day Years Used Date Smoking Tobacco: Never Alcohol Use Standard Drinks/Week Comments Yes 0 (1 standard drink = 0.6 oz pur e alcohol) Comments Unknown Sex and Gender Information Value Date Recorded Sex Assigned at Not on file 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 FINAL REPORT ACC# ??Date Time ??Exam [id number] May 24, 2014 10:09:00 WMM [id number] Screening Elías Bilateral ?? Technologist(s): Neva Hewitt; ; EXAMINATION: ??Mammogram Technique: Bilateral Full-Field Digital Screening Mammogram and Digital Breast Tomosynthesis were performed. ??Views obtained: ??bilateral craniocaudal and bilateral mediolateral oblique. ??Computer Aided Detection of the 2D images was performed with [employer] 1.3 version 9.3. Mammogram Findings: The present examination has been compared to prior imaging studies performed on 11/02/2010, and at [facility] on 06/10/2013 and 05/21/2013. There are scattered fibroglandular densities. There is no suspicious abnormality in either breast. IMPRESSION: ??Annual screening mammography is recommended. OVERALL FINAL ASSESSMENT: BI-RADS CATEGORY 1: ??Negative. Requested By: Dictated By: ?? ETHAN MONSALVE M.D. ??on May 26 2014 ??9:15A This document has been electronically signed by: ETHAN MONSALVE M.D. on May 26 2014 ??9:15A Procedure Note Provider, MD Ernestina - 01/03/2017 ETHAN MONSALVE M.D. FINAL REPORT ACC# Date Time Exam [id number] May 24, 2014 10:09:00 [facility] [id number] Screening Elías Bilateral Technologist(s): Neva Hewitt; ; EXAMINATION: Mammogram Technique: Bilateral Full-Field Digital Screening Mammogram and Digital Breast Tomosynthesis were performed. Views obtained: bilateral craniocaudaland bilateral mediolateral oblique. Computer Aided Detection of the 2Dimages was performed with [employer] 1.3 version 9.3. Mammogram Findings: The present examination has been compared to prior imaging studies performed on 11/02/2010, and at [facility] on 06/10/2013 and 05/21/2013. There are scattered fibroglandular densities. There is no suspicious abnormality in either breast. IMPRESSION: Annual screening mammography is recommended. OVERALL FINAL ASSESSMENT: BI-RADS CATEGORY 1: Negative. Requested By: Dictated By: ETHAN MOSNALVE M.D. on May 26 2014 9:15A This document has been electronically signed by: ETHAN MONSALVE M.D. on May 26 2014 9:15A Historical Provider MD [place] [facility]ED[facility] Callie l Result documented in this encounter Visit Diagnoses Diagnosis Other screening mammogram documented in this encounter Care Teams Feeder Tender Relationship Specialty Start Date End Date Santiago Bueno MD [address] [facility] [address] [place] [address] PCP - General 09/03/06 10/14/16 documented as of this encounter
--- OUTSIDE RECORDS SUMMARY | 2024-08-29 10:28 | XMS_ITS | Encounter Summary ---
Author Organization [facility] Facility Care Team Providers Care Adobe Ball Mixer Name Role Phone Santiago Bueno MD Primary Care Provider Encounter Details Date Type Department Care Team (Latest Contact Info) Description 05/23/2015 7:41 AM CDT - 05/23/2015 11:59 PM T Hospital Encounter [facility] Kentrell Smith MD [address] [facility] [address] [place] [address] Ostium secundum type atrial septal defect; Essential hypertension; Other and unspecified hyperlipidemia; Asthma; Personal history of allergy to sulfonamides; History of allergy to other antibiotic agent; Personal history of transient ischemic attack (TIA) and cerebral infarction without residual deficit Social History Tobacco Use Types Packs/Day Years Used Date Smoking Tobacco: Never Alcohol Use Standard Drinks/Week Comments No 0 (1 standard drink = 0.6 oz pur e alcohol) Comments Unknown Sex and Gender Information Value Date Recorded Sex Assigned at Not on file 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 Procedure Note ProviderErnestina MD - 10/29/2018 Ordered by an unspecified provider. Historical Provider CV ECHO PROCEDURES Final Result documented in this encounter Visit Diagnoses Diagnosis Ostium secundum type atrial septal defect Essential hypertension Unspecified essential hypertension Other and unspecified hyperlipidemia Asthma Unspecified asthma Personal history of allergy to sulfonamides History of allergy to other antibiotic agent Personal history of transient ischemic attack (TIA) and cerebral infarction without residual deficit documented in this encounter Care Teams Adobe Ball Mixer Relationship Specialty Start Date End Date Santiago Bueno MD [address] [facility] [address] [place] [address] PCP - General 09/03/06 10/14/16 documented as of this encounter
--- OUTSIDE RECORDS SUMMARY | 2024-08-29 10:28 | XMS_ITS | Encounter Summary ---
Author Organization [facility] Facility Care Team Providers Care Sap Business Intelligence Consultant Name Role Phone Santiago Bueno MD Primary Care Provider [phone] Encounter Details Date Type Department Care Team (Latest Contact Info) Description 08/11/2013 1:[address] JUDGE Hospital Encounter [facility] Tatum Benito, FELICIA [address] [facility] [address] [place] [address] Contusion; Accident; Unspecified place of occurrence Social History Tobacco Use Types Packs/Day Years Used Date Smoking Tobacco: Never Alcohol Use Standard Drinks/Week Comments Yes 0 (1 standard drink = 0.6 oz pur e alcohol) Comments Unknown Sex and Gender Information Value Date Recorded Sex Assigned at Not on file Legal Sex Female 12:[address] Gender Identity Not on file Sexual Orientation [...] Name Priority Date/Time Associated Diagnosis Comments PLASMA PROTHROMBIN TIME (PT) Routine 08/11/2013 12:[address] JUDGE PLASMA PARTIAL THROMBOPLASTIN TIME (PTT) Routine 08/11/2013 12:[address] JUDGE BLOOD CELL COUNT (CBC), MORPHOLOGIC EXAM Routine 08/11/2013 12:[address] JUDGE DISCHARGE LABORATORY CUMULATIVE REPORT 08/11/2013 documented in this encounter Results * (ABNORMAL) Blood cell count (CBC), morphologic exam (08/11/2013 12:[address] JUDGE) WBC 6.4 4.5 - 11.0 K/cumm HISTORICAL RESULTS RBC 4.92 3.80 - 5.40 M/cumm HISTORICAL RESULTS Hgb 14.0 11.5 - 16.0 g/dl HISTORICAL RESULTS Hct 43.2 34.0 - 48.0 % HISTORICAL RESULTS MCV 87.8 80.0 - 100.0 fl HISTORICAL RESULTS MCH 28.5 27.0 - 33.0 pg HISTORICAL RESULTS MCHC 32.4 32.0 - 36.0 g/dl HISTORICAL RESULTS Rdw 14.0 11.5 - 14.5 % HISTORICAL RESULTS Platelets 271 140 - 400 K/cumm HISTORICAL RESULTS MPV 10.0 7.4 - 10.4 fl HISTORICAL RESULTS Neutrophils 44.6 42.0 - 75.0 % HISTORICAL RESULTS Lymphocytes 39.0 21.0 - 51.0 % HISTORICAL RESULTS Monos 11.5(H) 2.0 - 9.0 % HISTORICAL RESULTS Eosinophils 3.8 0.0 - 10.0 % HISTORICAL RESULTS Basophils 1.1(H) 0.0 - 1.0 % HISTORICAL RESULTS Neutrophils, abs 2.8 1.0 - 6.6 K/cumm HISTORICAL RESULTS Lymphocytes, abs 2.5 1.2 - 3.3 K/cumm HISTORICAL RESULTS Monocytes, absolute 0.7 0.2 - 1.2 K/cumm HISTORICAL RESULTS Eosinophils, abs 0.2 0.0 - 0.5 K/cumm HISTORICAL RESULTS Basophils, abs 0.1 0.0 - 0.2 K/cumm HISTORICAL RESULTS Blood specimen (specimen) 08/11/2013 12:[address] JUDGE Tatum Benito MEDICAL SECRETARY TEACHER LAB BLOOD ORDERABLES Final R esult HISTORICAL RESULTS * Plasma prothrombin time (PT) (08/11/2013 12:[address] JUDGE) Prothrombin time (PT) 12.9 11.5 - 14.0 seconds HISTORICAL RESULTS INR 1.0 0.9 - 1.1 HISTORICAL RESULTS Comment: INDICATION: ORTHOPEDIC Total Hip and Knee Arthroplasty ?1.8 to 2.6 Hip Fracture ?1.8 to 2.6 CARDIOLOGY Atrial Fibrillation ? 2.0 to 3.0 Cardiomyopathy ?2.0 to 3.0 Myocardial Infarction ?2.0 to 3.0 Bioprosthetic Heart Valve ? 2.0 to 3.0 Mechanical Valve Replacement ?2.[address] [facility] Mechanical Aortic Valve ?2.0 to 3.0 TREATMENT OF VENOUS THRMBOSIS Deep Vein Thrombosis ? 2.0 to 3.0 Pulmonary Embolism ? 2.0 to 3.0 Plasma 08/11/2013 12:[address] JUDGE Tatum Benito NP LAB BLOOD ORDERABLES Final R esult Performing Organization Address [facility] Co de Phone Number HISTORICAL RESULTS * Plasma partial thromboplastin time (PTT) (08/11/2013 12:[address] JUDGE) APTT 28.1 24.0 - 36.1 seconds HISTORICAL RESULTS Comment:Heparin Therapeutic Range aPTT: 60 - 100 seconds. Plasma 08/11/2013 12:[address] JUDGE Tatum Benito MEDICAL SECRETARY TEACHER LAB BLOOD ORDERABLES Final R esult Performing Organization Address [facility] de Phone Number HISTORICAL RESULTS * DISCHARGE LABORATORY CUMULATIVE REPORT (08/11/2013) Narrative 08/11/2013 Ordered by an unspecified provider. Historical Provider LAB BLOOD ORDERABLES Callie l Result documented in this encounter Visit Diagnoses Diagnosis Contusion Contusion of unspecified site Accident Unspecified accident Unspecified place of occurrence documented in this encounter Care Teams Sap Business Intelligence Consultant Relationship Specialty Start Date End Date Santiago Bueno MD [address] [place] [address] PCP - General 09/03/06 10/14/16 documented as of this encounter
--- OUTSIDE RECORDS SUMMARY | 2024-08-29 10:28 | XMS_ITS | Encounter Summary ---
Author Organization [facility] Facility Care Team Providers Care Filter Tank Tender Name Role Phone Tamar Bueno MD Primary Care Provider [phone] Encounter Details Date Type Department Care Team (Latest Contact Info) Description 06/10/2013 2:23 PM CDT Hospital Encounter [facility] Tamar Bueno MD [address] [address] Mammographic microcalcification Social History Tobacco Use Types Packs/Day Years Used Date Smoking Tobacco: Never Assessed Comments Unknown Sex and Gender Information Value Date Recorded Sex Assigned at Not on file 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 CHARLY RAMÍREZ, FINAL REPORT The radiology attending physician has personally reviewed this study, and has reviewed and/or edited this written report and agrees with it. ACC# ??Date Time ??Exam [id number] Jun 10, 2013 15:23:00 WMM [id number] Mammography Diag Uni Rt R ?? Technologist(s): Angy Villarreal; ; EXAMINATION: ?? RIGHT UNILATERAL FULL FIELD DIGITAL DIAGNOSTIC MAMMOGRAM HISTORY: Abnormal screening mammogram. Recent screening mammogram performed at [facility] demonstrated calcifications in the upper outer quadrant of the right breast. TECHNIQUE: Additional views of the right breast were obtained utilizing full field digital mammography. COMPARISON: Prior screening mammography performed at [facility] on 05/21/2013 and 06/24/2006. BREAST PARENCHYMAL COMPOSITION: There are scattered fibroglandular densities. FINDINGS: Additional mammographic views confirm grouped heterogeneous calcifications in the upper outer quadrant of the right breast. No definite associated mass or architectural distortion. ?? IMPRESSION: 1. Indeterminate microcalcifications in the upper outer quadrant of the right breast. Tissue sampling with stereotactic core needle biopsy is recommended. The above findings and recommendations were discussed with the patient at the conclusion of the examination. ??The patient will be contacted regarding scheduling for a stereotactic-guided core needle biopsy. OVERALL FINAL ASSESSMENT: ??BI-RADS Category 4A: Suspicious abnormality. ?? Low suspicion for malignancy. ADDENDUM Addendum issued 06/11/2013 at 4:[address] Darrell (s) The above recommendation was discussed with Chitra Casas in the office of Dr. Tamar Bueno at 4:00 p.m. on 06/11/[address] Ramírez. The patient has been scheduled for stereotactic guided biopsy of the right breast on 06/16/2013 at 7:15 a.m. ?? Requested By: TAMAR BUENO ??M.D. Dictated By: ?? CHARLY RAMÍREZ, ?? on Jun ??2012 ??4:45P This document has been electronically signed by: VAN DAVID M.D. on Jun ??2012 ??4:48P Addendum Dictated by: CHARLY RAMÍREZ, ??on Jun 11 2013 ??3:54P This Addendum has been electronically signed by: VAN DAVID M.D. on Jun 15 2013 ??7:47A Procedure Note Provider, MD Ernestina - 01/03/2017 VAN DAVID M.D. CHARLY RAMÍREZ, FINAL REPORT The radiology attending physician has personally reviewed this study, and has reviewed and/or edited this written report and agrees with it. ACC# Date Time Exam [id number] Jun 10, 2013 15:23:00 WMM [id number] Mammography Diag Uni Rt R Technologist(s): Angy Villarreal; ; EXAMINATION: RIGHT UNILATERAL FULL FIELD DIGITAL DIAGNOSTIC MAMMOGRAM HISTORY: Abnormal screening mammogram. Recent screening mammogram performed at [facility] demonstrated calcifications in the upper outer quadrant of the right breast. TECHNIQUE: Additional views of the right breast were obtained utilizing full field digital mammography. COMPARISON: Prior screening mammography performed at [facility] on 05/21/2013 and 06/24/2006. BREAST PARENCHYMAL COMPOSITION: There are scattered fibroglandular densities. FINDINGS: Additional mammographic views confirm grouped heterogeneous calcifications in the upper outer quadrant of the right breast. No definite associated mass or architectural distortion. IMPRESSION: 1. Indeterminate microcalcifications in the upper outer quadrant of the right breast. Tissue sampling with stereotactic core needle biopsy is recommended. The above findings and recommendations were discussed with the patient at the conclusion of the examination. The patient will be contacted regarding scheduling for a stereotactic-guided core needle biopsy. OVERALL FINAL ASSESSMENT: BI-RADS Category 4A: Suspicious abnormality. Low suspicion for malignancy. ADDENDUM Addendum issued 06/11/2013 at 4:[address] Darrell (s) The above recommendation was discussed with Chitra Casas in the office of Dr. Tamar Bueno at 4:00 p.m. on 06/11/[address] Ramírez. The patient has been scheduled for stereotactic guided biopsy of the right breast on 06/16/2013 at 7:15 a.m. Requested By: TAMAR BUENO M.D. Dictated By: CHARLY RAMÍREZ, on Jun 10 2013 4:45P This document has been electronically signed by: VAN DAVID M.D. on Jun 10 2013 4:48P Addendum Dictated by: CHARLY RAMÍREZ, on Jun 11 2013 3:54P This Addendum has been electronically signed by: VAN DAVID M.D. on Jun 15 2013 7:47A Historical Provider MD [place] [facility]ED[facility] Callie l Result documented in this encounter Visit Diagnoses Diagnosis Mammographic microcalcification documented in this encounter Care Teams Filter Tank Tender Relationship Specialty Start Date End Date Tamar Bueno MD [address] [facility] [address] [place] [address] PCP - General 09/03/06 10/14/16 documented as of this encounter
--- OUTSIDE RECORDS SUMMARY | 2024-08-29 10:28 | XMS_ITS | Encounter Summary ---
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 Jluis Mendez MD PhD [address] [place] [address] Cerebral artery occlusion with cerebral infarction (CMS/HCC); Systemic lupus erythematosus (CMS/HCC); Atrial fibrillation (CMS/HCC); Other depressive disorder; Esophageal reflux; Personal history of allergy to sulfonamides; History of allergy to other anti-infective agent; Osteoarthrosis; Encounter for long-term (current) use of other medications; Essential hypertension; Other abnormal glucose Social History Tobacco Use Types Packs/Day Years Used Date Smoking Tobacco: Never Alcohol Use Standard Drinks/Week Comments Yes 0 (1 standard drink = 0.6 oz pur e alcohol) Comments Unknown Sex and Gender Information Value Date Recorded Sex Assigned at Not on file 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 Gender Identity Not on file Sexual Orientation Not on file documented as of this encounter Last Filed Vital Signs Vital Sign Reading Time Taken Comments Blood Pressure 151/80 04/25/2015 2:19 PM CDT Pulse 80 04/25/2015 2:19 PM CDT Temperature - - Respiratory Rate - - Oxygen Saturation 97% 04/25/2015 2:19 PM CDT Inhaled Oxygen Concentration - - Weight - [...] Procedure Name Priority Date/Time Associated Diagnosis Comments SERUM MAGNESIUM Routine 04/25/2015 2:03 AM CDT PLASMA PHOSPHORUS Routine 04/25/2015 2:0 3 AM CDT PLASMA HOMOCYSTEINE Routine 04/25/2015 2 :03 AM CDT VASCULAR LABORATORY REPORT 04/25/2015 DISCHARGE LABORATORY CUMULATIVE REPORT 04/25/2015 XR CONSULT OF OUTSIDE FILMS (PEDS ONLY) Routine 04/24/2015 8:54 AM CDT SERUM TROPONIN I Routine 04/24/2015 5:53 AM CDT SERUM LIPID PANEL Routine 04/24/2015 5:5 3 AM CDT SERUM C-REACTIVE PROTEIN Routine 04/24/2015 5:53 AM CDT SERUM COMPLEMENT C4, QUANTITATIVE Routine 04/24/2015 5:53 AM CDT SERUM COMPLEMENT C3, QUANTITATIVE Routine 04/24/2015 5:53 AM CDT SERUM ANTINUCLEAR AB (LUCI) Routine 04/24/2015 5:53 AM CDT SERUM ANTIDOUBLE-STRANDED DNA AB Routine 04/24/2015 5:53 AM CDT PLASMA PROTHROMBIN TIME (PT) Routine 04/24/2015 5:53 AM CDT PLASMA PARTIAL THROMBOPLASTIN TIME (PTT) Routine 04/24/2015 5:53 AM CDT PLASMA LUPUS ANTICOAGULANT Routine 04/24/2015 5:53 AM CDT PLASMA COMPREHENSIVE METABOLIC PANEL Routine 04/24/2015 5:53 AM CDT BLOOD HEMOGLOBIN A1C Routine 04/24/2015 5:53 AM CDT BLOOD ERYTHROCYTE SEDIMENTATION RATE (ESR) Routine 04/24/2015 5:53 AM CDT BLOOD CELL COUNT (CBC) Routine 5 5:53 AM CDT SERUM ANTINUCLEAR AB (LUCI) Routine 04/24/2015 12:53 AM CDT documented in this encounter Results * (ABNORMAL) Plasma phosphorus (04/25/2015 2:03 AM CDT) Phosphorus, pl 4.5(H) 2.3 - 4.3 mg/dl HISTORICAL RESULTS Plasma 04/25/2015 2:03 AM CDT Kriss Rivero MD PhD LAB BLOOD ORDERAB LES Final Result Performing Organization Address City/[facility] Co de Phone Number HISTORICAL RESULTS * Serum magnesium (04/25/2015 2:03 AM CDT) Magnesium 2.2 1.4 - 2.5 mg/dl HISTORICAL RESULTS Serum 04/25/2015 2:03 AM CDT Kriss Rivero MD PhD LAB BLOOD ORDERAB LES Final Result Performing Organization Address City/[facility]/ZIP Co de Phone Number HISTORICAL RESULTS * Plasma homocysteine (04/25/2015 2:03 AM CDT) Homocysteine 8.7 5.0 - 15.0 mcmol/L HISTORICAL RESULTS Plasma 04/25/2015 2:03 AM CDT Kriss Rivero MD PhD LAB BLOOD ORDERAB LES Final Result Performing Organization Address [facility]/ZIP Co de Phone Number HISTORICAL RESULTS * DISCHARGE LABORATORY CUMULATIVE REPORT (04/25/2015) Narrative 04/25/2015 Ordered by an unspecified provider. us Historical Provider LAB BLOOD ORDERABLES Callie l Result * VASCULAR LABORATORY REPORT (04/25/2015) Anatomical Region Laterality Modality Ultrasound Narrative 04/25/2015 Ordered by an unspecified provider. us Historical Provider CV VASCULAR PROCEDURES Fi nal Result * XR Interpretation Of Outside Films (04/24/2015 8:54 AM CDT) Anatomical Region Laterality Modality N/A Radiographic Ashley ging 04/24/2015 8:54 AM CDT Narrative 04/24/2015 4:36 PM CDT FREDY MANZANO MD, PHD SHON MONSALVE M.D. FINAL REPORT The radiology attending physician has personally reviewed this study, and has reviewed and/or edited this written report and agrees with it. ACC# ??Date Time ??Exam [id number] Apr 24, 2015 08:54:00 [id number] ED Consult Neuro CT/MR EXAMINATION: ?? RADIOLOGY CONSULTATION ON OUTSIDE IMAGING STUDY STUDY INITIALLY PERFORMED: ??04/23/2015 at [facility]. ?? TYPE OF STUDY: Multiple CT images of the head without intravenous are provided at the time of this interpretation. The protocol was adequate to address the clinical question. The outside final report was not available at the time of this second opinion interpretation. TYPE OF CONSULTATION: ??Consult on outside imaging study with images submitted through [facility] DATE OF CONSULTATION: 04/24/2015 HISTORY: ??Right-sided weakness and numbness COMPARISON: None. FINDINGS: Topogram demonstrates no lytic lesions or fractures. There is no acute intracranial hemorrhage. Ventricles are of normal size and morphology. No mass effect or midline shift is present. The palacios-white matter differentiation is normal. The visualized portions of the orbits are normal. The visualized portions of the mastoids are normal. The visualized portions of the paranasal sinuses are normal. No fractures are identified. IMPRESSION: ?? No acute intracranial findings. The findings, conclusions and recommendations within this report do not replace the initial findings, conclusions ??and recommendations made at the facility where the study was performed based upon the imaging and clinical condition at that time. ??Comparison with the prior report and clinical history is necessary. ??The provided images may or may not represent the [place] source data set and thus may contain changes that may lower the accuracy of this second-opinion interpretation. Requested By: Dictated By: ?? SHON MONSALVE M.D. ??on Apr 24 2015 10:20A This document has been electronically signed by: FREDY MANZANO MD, PHD on Apr 24 2015 ??4:36P [id number] Procedure Note Provider, MD Ernestina - 01/03/2017 FREDY MANZANO MD, PHD SHON MONSALVE M.D. FINAL REPORT The radiology attending physician has personally reviewed this study, and has reviewed and/or edited this written report and agrees with it. ACC# Date Time Exam [id number] Apr 24, 2015 08:54:00 [id number] ED Consult Neuro CT/MR EXAMINATION: RADIOLOGY CONSULTATION ON OUTSIDE IMAGING STUDY STUDY INITIALLY PERFORMED: 04/23/2015 at [facility]. TYPE OF STUDY: Multiple CT images of the head without intravenous are provided at the time of this interpretation. The protocol was adequate to address the clinical question. The outside final report was not available at the time of this second opinion interpretation. TYPE OF CONSULTATION: Consult on outside imaging study with images submitted through [facility] DATE OF CONSULTATION: 04/24/2015 HISTORY: Right-sided weakness and numbness COMPARISON: None. FINDINGS: Topogram demonstrates no lytic lesions or fractures. There is no acute intracranial hemorrhage. Ventricles are of normal size and morphology. No mass effect or midline shift is present. The palacios-white matter differentiation is normal. The visualized portions of the orbits are normal. The visualized portions of the mastoids are normal. The visualized portions of the paranasal sinuses are normal. No fractures are identified. IMPRESSION: No acute intracranial findings. The findings, conclusions and recommendations within this report do not replace the initial findings, conclusions and recommendations made at the facility where the study was performed based upon the imaging and clinical condition at that time. Comparison with the prior report and clinical history is necessary. The provided images may or may not represent the [place] source data set and thus may contain changes that may lower the accuracy of this second-opinion interpretation. Requested By: Dictated By: SHON MONSALVE M.D. on Apr 24 2015 10:20A This document has been electronically signed by: FREDY MANZANO MD, PHD on Apr 24 2015 4:36P [id number] us Historical Provider MD [place] XR PROCEDURES Final R esult * Plasma lupus anticoagulant (04/24/2015 5:53 AM CDT) Prothrombin time (PT) 11.5 9.2 - 13.0 seconds HISTORICAL RESULTS INR 1.06 0.90 - 1.20 HISTORICAL RESULTS Comment: Interpretive Data Inpatient therapeutic ranges* Atrial fibrillation ?2.0-3.0 INR Venous thrombo-embolism ?2.0-3.0 INR Bioprosthetic heart valve ?* Mechanical heart valve, bileaflet or tilting disk,aortic position ? 2.0-3.0 INR All other,or bileaflet or tilting disk, in mitral position ? 2.5-3.5 INR *See the pharmacy resource directory (DezineforceED) for an updated copy of the Tool Book at [email or web address] Current Interpretive Data was last revised 2011. APTT 29.3 25.0 - 37.0 seconds HISTORICAL RESULTS Comment: Interpretive Data Therapeutic heparin range:60.0 - 94.0 sec based on correlation with therapeutic heparin activity range of 0.3 -0.7 Units/mL. Current interpretive data was last revised on 2011. Lupus anticoagulant, DRVVT, screen ratio .94 0.00 - 1.20 ratio HISTORICAL RESULTS Lupus anticoagulant, PTT 31.5 <=45.0 seconds HISTORICAL RESULTS Comment: Effective today, 04-25-15, the normal reference range for LA-PTT is </= 39.0 Lupus anticoagulant, interp Negative HISTORICAL RESULTS Comment: Lupus Anticoagulant Interpretation: Lupus anticoagulants (LA) are acquired autoantibodies that interfere with invitro clotting in a phospholipid-dependent manner. Routine aPTT reagents are not sensitive to inhibition by LA, and should not be used as a screening test. ??The laboratory follows ISTH 2009 guidelines (Pengo,2009) for LA testing and interpretation: Two sensitive methods performed in parallel improve sensitivity. One activates the intrinsic pathway (LA-PTT) and one activates the common pathway (dilute [place] Time dRVVT). Each method begins with a screening step, and if not prolonged for both tests, no further testing is performed and the interpretation is: NO LA DETECTED. If either screening test is prolonged, then additional steps are performed to provide specificity. A POSITIVE occurs if either or both tests produce a positive confirm result. To support a clinical suspicion of antiphospholipid syndrome, persistence of a positive LA result should be confirmed by repeated testing at least 12 weeks later (La, 2006). An INDETERMINATE result indicates LA cannot be confirmed or ruled out due to the possible presence of anticoagulant effect, factor deficiency, very weak LA, or factor inhibitors. FALSE POSITIVE causes of LA include autoantibodies to specific factors and IV or PO directed anticoagulants, both associated with increased bleeding. Clinical correlation required. References:1) Vargas Chan, Christine A, Guera JH, Orjasmin TL, Joy M, De Mayito PG. Update of the guidelines for lupus anticoagulant detection. J Thromb Haemost. 2009;7:7820-6447. 2) La S. et al. International consensus statement on an update of the classification criteria for definite antiphospholipid syndrome (APS). J Thromb Haemost. 2006;4:295-306. Current interpretive data was last revised on 2014 Plasma 04/24/2015 5:53 AM CDT Kriss Rivero MD PhD LAB BLOOD ORDERAB LES Final Result HISTORICAL RESULTS * Plasma comprehensive metabolic panel (04/24/2015 5:53 AM CDT) Sodium 138 135 - 145 mmol/L HISTORICAL RESULTS BUN 17 8 - 25 mg/dl HISTORICAL RESULTS K, pl 3.7 3.3 - 4.9 mmol/L HISTORICAL RESULTS Creatinine 0.76 0.60 - 1.10 mg/dl HISTORICAL RESULTS Chloride 99 97 - 110 mmol/L HISTORICAL RESULTS Calcium 9.5 8.6 - 10.3 mg/dl HISTORICAL RESULTS CO2 29 22 - 32 mmol/L HISTORICAL RESULTS Protein, pl 7.4 6.5 - 8.5 g/dl HISTORICAL RESULTS A. gap 10 0 - 16 mmol/L HISTORICAL RESULTS Alb 4.1 3.6 - 5.0 g/dl HISTORICAL RESULTS Glucose 87 70 - 199 mg/dl HISTORICAL RESULTS Bilirubin 0.4 0.3 - 1.1 mg/dl HISTORICAL RESULTS Alk phos 53 38 - 126 Units/L HISTORICAL RESULTS AST 30 11 - 47 Units/L HISTORICAL RESULTS ALT 27 7 - 53 Units/L HISTORICAL RESULTS Plasma 04/24/2015 5:53 AM CDT us Kriss Rivero MD PhD LAB BLOOD ORDERAB LES Final Result HISTORICAL RESULTS * Serum complement C4, quantitative (04/24/2015 5:53 AM CDT) Complement C4 18.9 12.0 - 54.0 mg/dl HISTORICAL RESULTS Serum 04/24/2015 5:53 AM CDT us Kriss Rivero MD PhD LAB BLOOD ORDERAB LES Final Result Performing Organization Address City/[facility] Co de Phone Number HISTORICAL RESULTS * Serum complement C3, quantitative (04/24/2015 5:53 AM CDT) Complement C3 113.0 83.0 - 185.0 mg/dl HISTORICAL RESULTS Serum 04/24/2015 5:53 AM CDT us Kriss Rivero MD PhD LAB BLOOD ORDERAB LES Final Result HISTORICAL RESULTS * Serum C-reactive protein (04/24/2015 5:53 AM CDT) C-RP 1.2 0.0 - 9.9 mg/L HISTORICAL RESULTS Serum 04/24/2015 5:53 AM CDT us Kriss Rivero MD PhD LAB BLOOD ORDERAB LES Final Result HISTORICAL RESULTS * (ABNORMAL) Serum antinuclear ab (LUCI) (04/24/2015 5:53 AM CDT) LUCI, quant 1:160(A) Negative titer HISTORICAL RESULTS LUCI, interp Homogeneou s(A) HISTORICAL RESULTS LUCI, interp Speckled(A ) HISTORICAL RESULTS Serum 04/24/2015 5:53 AM CDT Kriss Rivero MD PhD LAB BLOOD ORDERAB LES Final Result Performing Organization Address [facility] de Phone Number HISTORICAL RESULTS * (ABNORMAL) Serum antidouble-stranded DNA ab (04/24/2015 5:53 AM CDT) Anti-double stranded DNA, quant 405.2(H) <=29.9 IUnits/ml HISTORICAL RESULTS Comment: Interpretive Data ??<30 IUnits/mL = Negative 30-75 IUnits/mL = [place] ??>75 IUnits/mL = Positive Current interpretive data was last revised on 2009. Serum 04/24/2015 5:53 AM CDT Kriss Rivero MD PhD LAB BLOOD ORDERAB LES Final Result Performing Organization Address [facility] de Phone Number HISTORICAL RESULTS * Serum lipid panel (04/24/2015 5:53 AM CDT) Cholesterol 194 0 - 200 mg/dl HISTORICAL RESULTS Comment: Interpretive Data Desirable: ?<200 mg/dL Borderline high: ??200-239 mg/dL High: ? >240 mg/dL Literature Reference: National Cholesterol Education Program (NCEP) Expert Panel on Detection, Evaluation, and Treatment of High Blood Cholesterol in Adults (Adult Treatment Panel III). ??Circulation 2004; 110:227. Current interpretive data was last revised on 2005. Triglycerides 112 0 - 150 mg/dl HISTORICAL RESULTS Comment: Interpretive Data Desirable: ? < 150 mg/dL Borderline High: ? 150 - 199 mg/dL High: ?> 200 mg/dL Literature Reference: See Cholesterol Current interpretive data was last revised on 07. HDL 49 40 - 199 mg/dl HISTORICAL RESULTS Comment: Interpretive Data Less than 40 mg/dL - low; A major risk factor for heart disease. Greater than or equal to 60 mg/dL - High; ??considered protective of heart disease. Literature Reference: See Cholesterol Current interpretive data was last revised on 2008. LDL 123 0 - 129 mg/dl HISTORICAL RESULTS Comment: Interpretive Data Optimal: ? < 100 mg/dL Near Optimal: ?100 - 129 mg/dL Borderline High: ?? 130 - 159 mg/dL High: ?> 160 mg/dL Literature Reference: See Cholesterol Current interpretive data was last revised on 07. Non-HDL cholesterol, calculated 145 mg/dl HISTORICAL RESULTS Comment: Interpretive Data When triglycerides are >200 mg/dL, non-HDL C is a secondary target of therapy, with a goal 30 mg/dL higher than the identified LDL-C goal. Reference: ??See Cholesterol Reference. Current interpretive data was last revised 2012. Serum 04/24/2015 5:53 AM CDT Kriss Rivero MD PhD LAB BLOOD ORDERAB LES Final Result HISTORICAL RESULTS * Plasma partial thromboplastin time (PTT) (04/24/2015 5:53 AM CDT) APTT 29.7 25.0 - 37.0 seconds HISTORICAL RESULTS Comment: Interpretive Data Therapeutic heparin range:60.0 - 94.0 sec based on correlation with therapeutic heparin activity range of 0.3 -0.7 Units/mL. Current interpretive data was last revised on 2011. Plasma 04/24/2015 5:53 AM CDT Kriss Rivero MD PhD LAB BLOOD ORDERAB LES Final Result Performing Organization Address City/[facility] Co de Phone Number HISTORICAL RESULTS * Serum troponin I (04/24/2015 5:53 AM CDT) Troponin I <0.03 0.00 - 0.03 ng/ml HISTORICAL RESULTS Comment: Interpretive Data Serial determinations are recommended for the diagnosis of myocardial infarction (Third [place] Definition of Myocardial Infarction. ??J Am [place] Cardiol 2012;60:1581-98). Current interpretive data was last revised on 13. Serum 04/24/2015 5:53 AM CDT [facility] Aida Rivero MD PhD LAB BLOOD ORDERAB LES Final Result Performing Organization Address [facility] Co de Phone Number HISTORICAL RESULTS * Plasma prothrombin time (PT) (04/24/2015 5:53 AM CDT) Prothrombin time (PT) 11.4 9.2 - 13.0 seconds HISTORICAL RESULTS INR 1.05 0.90 - 1.20 HISTORIC AL RESULTS Comment: Interpretive Data Inpatient therapeutic ranges* Atrial fibrillation ?2.0-3.0 INR Venous thrombo-embolism ?2.0-3.0 INR Bioprosthetic heart valve ?* Mechanical heart valve, bileaflet or tilting disk,aortic position ? 2.0-3.0 INR All other,or bileaflet or tilting disk, in mitral position ? 2.5-3.5 INR *See the pharmacy resource directory (PHRED) for an updated copy of the Tool Book at [email or web address]/pharmacy.nsf Current Interpretive Data was last revised 2011. Plasma 04/24/2015 5:53 AM CDT us Kriss Rivero MD PhD LAB BLOOD ORDERAB LES Final Result HISTORICAL RESULTS * (ABNORMAL) Blood cell count (CBC) (04/24/2015 5:53 AM CDT) WBC 6.5 3.8 - 9.8 K/cumm HISTORICAL RESULTS RBC 5.08(H) 3.90 - 5.00 M/cumm HISTORICAL RESULTS Hgb 14.3 12.1 - 15.1 g/dl HISTORICAL RESULTS Hct 43.5 36.1 - 44.3 % HISTORICAL RESULTS MCV 85.6 80.0 - 97.6 fl HISTORICAL RESULTS MCH 28.1 26.7 - 33.7 pg HISTORICAL RESULTS MCHC 32.8 32.7 - 35.5 g/dl HISTORICAL RESULTS Rdw 14.1 11.8 - 14.6 % HISTORICAL RESULTS Platelets 232 140 - 440 K/cumm HISTORICAL RESULTS MPV 8.0 6.8 - 10.4 fl HISTORICAL RESULTS Neutrophils 45.6 38.7 - 74.5 % HISTORICAL RESULTS Lymphocytes 38.0 20.0 - 54.3 % HISTORICAL RESULTS Monos 11.4 4.3 - 13.5 % HISTORICAL RESULTS Eosinophils 4.3 0.0 - 6.0 % HISTORICAL RESULTS Basophils 0.7 0.0 - 3.0 % HISTORICAL RESULTS Neutrophils, abs 3.0 1.8 - 6.6 K/cumm HISTORICAL RESULTS Lymphocytes, abs 2.5 1.2 - 3.3 K/cumm HISTORICAL RESULTS Monocytes, absolute 0.7 0.2 - 1.2 K/cumm HISTORICAL RESULTS Eosinophils, abs 0.3 0.0 - 0.5 K/cumm HISTORICAL RESULTS Basophils, abs 0.0 0.0 - 0.2 K/cumm HISTORICAL RESULTS Blood specimen (specimen) 04/24/2015 5:53 AM CDT us Kriss Rivero MD PhD LAB BLOOD ORDERAB LES Final Result HISTORICAL RESULTS * Blood erythrocyte sedimentation rate (ESR) (04/24/2015 5:53 AM CDT) Erythrocyte sedimentation rate 8.0 0.0 - 35.0 mm/hr HISTORICAL RESULTS Blood specimen (specimen) 04/24/2015 5:53 AM CDT Result [facility] Kriss Rivero MD PhD LAB BLOOD ORDERAB LES Final Result Performing Organization Address [facility] de Phone Number HISTORICAL RESULTS * Blood hemoglobin A1C (04/24/2015 5:53 AM CDT) Hgb A1C 6.0 4.0 - 6.0 % HISTORICAL RESULTS Estimated average glucose 126 mg/dl HISTORICAL RESULTS Comment: The ADA recommends reporting an estimated Average Glucose (eAG) with all Hemoglobin A1c results using the equation derived from a study of 507 normal and diabetic adults. ??Minority populations were underrepresented and children were not included. ??(Diabetes Care 31:2059-1306, 2008). ??The eAG is not equivalent to a fasting glucose. Blood specimen (specimen) 04/24/2015 5:53 AM CDT Kriss Rivero MD PhD LAB BLOOD ORDERAB LES Final Result Performing Organization Address [facility] de Phone Number HISTORICAL RESULTS * (ABNORMAL) Serum antinuclear ab (LUCI) (04/24/2015 12:53 AM CDT) LUCI, qual Positive(A ) Negative HISTORICAL RESULTS Serum 04/24/2015 12:5 3 AM CDT Narrative HISTORICAL RESULTS - 04/25/2015 10:15 AM CDT Interpretive Data Normal range for Luci Qualitative Antibody = Negative. 1. ??LUCI titers are performed on all positive qualitative results. 2. ??A significantly positive LUCI result is defined as a positive nuclear fluorescence at a titer of 1:80 or greater. 3. ??15% of normal people above age 65 have significantly positive LUCI results. ??5% or less of normal people age 65 or under have significantly positive LUCI results. Current interpretive data was last revised on 04. Kriss Rivero MD PhD LAB BLOOD ORDERAB LES Final Result HISTORICAL RESULTS documented in this encounter Visit Diagnoses Diagnosis Cerebral artery occlusion with cerebral infarction (HCC) Unspecified cerebral artery occlusion with cerebral infarction Systemic lupus erythematosus (CMS/HCC) (HCC) Systemic lupus erythematosus Atrial fibrillation (CMS/HCC) (HCC) Atrial fibrillation Other depressive disorder Esophageal reflux Personal history of allergy to sulfonamides History of allergy to other anti-infective agent Osteoarthrosis Osteoarthrosis, unspecified whether generalized or localized, unspecified site Encounter for long-term (current) use of other medications Essential hypertension Unspecified essential hypertension Other abnormal glucose documented in this encounter 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
--- OUTSIDE RECORDS SUMMARY | 2024-08-29 10:28 | XMS_ITS | Encounter Summary ---
Author Organization [facility] Facility Care Team Providers Care Otolaryngology Surgeon Name Role Phone Santiago Bueno MD Primary Care Provider [phone] Encounter Details Date Type Department Care Team (Latest Contact Info) Description 05/29/2013 1:20 PM CDT Hospital Encounter [facility] Santiago Bueno MD [address] [address] Other nonspecific finding on examination of urine Social History Tobacco Use Types Packs/Day Years Used Date Smoking Tobacco: Never Assessed Comments Unknown Sex and Gender Information Value Date Recorded Sex Assigned at Not on file Legal Sex Female 12:11 AM [employer] Gender Identity Not on file Sexual Orientation [...] Name Priority Date/Time Associated Diagnosis Comments PLASMA COMPREHENSIVE METABOLIC PANEL Routine 05/29/2013 11:28 AM CDT URINALYSIS Routine 05/29/2013 11:28 AM CDT DISCHARGE LABORATORY CUMULATIVE REPORT 05/29/2013 documented in this encounter Results * Plasma comprehensive metabolic panel (05/29/2013 11:28 AM CDT) eGFR >60 ml/min/1.7 3 m2 HISTORICAL RESULTS Comment: GFR Reference Range: = > 60 mL/min/1.73 m2 This result has been calculated assuming the patient is Non-. ??If the patient is , please multiply this result by 1.21. Sodium 138 136 - 145 mmol/L HISTORICAL RESULTS K, pl 3.6 3.5 - 5.1 mmol/L HISTORICAL RESULTS Chloride 101 98 - 107 mmol/L HISTORICAL RESULTS CO2 28 21 - 32 mmol/L HISTORICAL RESULTS A. gap 9 3 - 11 mmol/L HISTORICAL RESULTS BUN 18 7 - 18 mg/dl HISTORICAL RESULTS Creatinine 0.7 0.6 - 1.3 mg/dl HISTORICAL RESULTS Glucose 76 70 - 140 mg/dl HISTORICAL RESULTS Comment: Glucose is assumed to be non-fasting. Fasting Glucose normal ranges are: 0 days - 1 month: ? 40 mg/dL - 100 mg/dL 1 month - 999 years: ?70 mg/dL - 99 mg/dL Protein, pl 7.2 6.4 - 8.2 g/dl HISTORICAL RESULTS Alb 3.9 3.4 - 5.0 g/dl HISTORICAL RESULTS Calcium 8.9 8.5 - 10.1 mg/dl HISTORICAL RESULTS Alk phos 64 50 - 136 Units/L HISTORICAL RESULTS Bilirubin 0.4 0.1 - 1.0 mg/dl HISTORICAL RESULTS ALT 32 12 - 78 Units/L HISTORICAL RESULTS Comment:New referance range implemented on 11/20/2012 AST 35 15 - 37 Units/L HISTORICAL RESULTS Plasma 05/29/2013 11:2 8 AM CDT Santiago Bueno MD LAB BLOOD ORDERABLES Final Res ult Performing Organization Address [facility] Co de Phone Number HISTORICAL RESULTS * (ABNORMAL) Urinalysis (05/29/2013 11:28 AM CDT) Specific gravity, ur 1.010 1.000 - 1.025 HISTORICAL RESULTS pH, ur 7.0 5.0 - 9.0 HISTORICAL RESULTS Leukocyte esterase, ur Negative Negative HISTORICAL RESULTS Nitrites, ur Negative Negative HISTORI LEELA RESULTS Protein, ur Negative Negative HISTORIC AL RESULTS Glucose, ur Negative Negative HISTORIC AL RESULTS Ketones, ur Negative Negative HISTORIC AL RESULTS Urobilinogen, quant, ur Normal Normal mg/dl HISTORICAL RESULTS Bilirubin, ur ++(A) Negative HISTOR ICAL RESULTS RBC, ur Negative Negative HISTORICAL RESULTS Color, ur Yellow Yellow HISTORICAL RESULTS Clarity, ur Clear Clear HISTORIC AL RESULTS Comment:Unable confirm posit guerline bilirubin due to shortage of reagent. Urine 05/29/2013 11:2 8 AM CDT Santiago Bueno MD LAB BLOOD ORDERABLES Final Res ult Performing Organization Address [facility] de Phone Number HISTORICAL RESULTS * DISCHARGE LABORATORY CUMULATIVE REPORT (05/29/2013) Narrative 05/29/2013 Ordered by an unspecified provider. Historical Provider LAB BLOOD ORDERABLES Callie l Result documented in this encounter Visit Diagnoses Diagnosis Other nonspecific finding on examination of urine documented in this encounter Care Teams Otolaryngology Surgeon Relationship Specialty Start Date End Date Santiago Bueno MD [address] [place] [address] PCP - General 09/03/06 10/14/16 documented as of this encounter
--- OUTSIDE RECORDS SUMMARY | 2024-08-29 10:28 | XMS_ITS | Encounter Summary ---
Author Organization [facility] Facility Care Team Providers Care Dye Line Operator Name Role Phone Santiago Bueno MD Primary Care Provider [phone] Encounter Details Date Type Department Care Team (Latest Contact Info) Description 09/12/2015 11:48 AM DIGESTER - 09/12/2015 11:59 PM [facility] Hospital Encounter [facility] Santiago Bueno MD [address] [facility] [address] [place] [address] Encounter for screening mammogram for malignant neoplasm of breast; Generalized hyperhidrosis Social History Tobacco Use Types Packs/Day Years Used Date Smoking Tobacco: Never Alcohol Use Standard Drinks/Week Comments No 0 (1 standard drink = 0.6 oz pur e alcohol) Comments Unknown Sex and Gender Information Value Date Recorded Sex Assigned at Not on file Legal Sex Female 12:11 AM [facility] Gender Identity Not on file Sexual Orientation [...] Date/Time Associated Diagnosis Comments SCREENING MAMMOGRAM Routine 09/12/2015 1 2:20 PM DIGESTER XR CHEST PA LATERAL 2 VIEWS Routine 09/12/2015 12:03 PM DIGESTER documented in this encounter Results * Screening Mammogram (09/12/2015 12:20 PM DIGESTER) Anatomical Region Laterality Modality Breast N/A Mammography 09/12/2015 12:2 0 PM DIGESTER Narrative 09/14/2015 8:45 AM DIGESTER YANIV GLASER M.D. FINAL REPORT ACC# ??Date Time ??Exam [id number] Sep 12, 2015 12:20:00 WMM [id number] Screening Elías Bilateral ?? Technologist(s): Dana Patel; ; EXAMINATION: ??Mammogram Technique: Bilateral Full-Field Digital Screening Mammogram and Digital Breast Tomosynthesis were performed. ??Views obtained: ??bilateral craniocaudal and bilateral mediolateral oblique. ??Computer Aided Detection of the 2D images was performed with Sporterpilot.3 version 9.3. Mammogram Findings: The present examination has been compared to prior imaging studies performed at [facility] on 05/24/2014, 06/10/2013 and 05/21/2013. There are scattered areas of fibroglandular density. There is an oval mass measuring 7 millimeters with circumscribed margins in the middle central area of the left breast. There is no suspicious abnormality in the right breast. IMPRESSION: ??Mass in the left breast requires additional evaluation. ??An ultrasound exam is recommended. OVERALL FINAL ASSESSMENT: BI-RADS CATEGORY 0: ??Incomplete: ??Need additional imaging evaluation. Requested By: Dictated By: ?? YANIV GLASER M.D. ??on Sep 14 2015 ??8:45A This document has been electronically signed by: YANIV GLASER M.D. on Sep 14 2015 ??8:45A [id number] Procedure Note Provider, MD Ernestina - 01/03/2017 YANIV GLASER M.D. FINAL REPORT ACC# Date Time Exam [id number] Sep 12, 2015 12:20:00 WMM [id number] Screening Elías Bilateral Technologist(s): Dana Patel; ; EXAMINATION: Mammogram Technique: Bilateral Full-Field Digital Screening Mammogram and Digital Breast Tomosynthesis were performed. Views obtained: bilateral craniocaudaland bilateral mediolateral oblique. Computer Aided Detection of the 2Dimages was performed with Sporterpilot.3 version 9.3. Mammogram Findings: The present examination has been compared to prior imaging studies performed at [facility] on 05/24/2014, 06/10/2013 and 05/21/2013. There are scattered areas of fibroglandular density. There is an oval mass measuring 7 millimeters with circumscribed margins in the middle central area of the left breast. There is no suspicious abnormality in the right breast. IMPRESSION: Mass in the left breast requires additional evaluation. An ultrasound exam is recommended. OVERALL FINAL ASSESSMENT: BI-RADS CATEGORY 0: Incomplete: Need additional imaging evaluation. Requested By: Dictated By: YANIV GLASER M.D. on Sep 14 2015 8:45A This document has been electronically signed by: YANIV GLASER M.D. on Sep 14 2015 8:45A [id number] us Historical Provider MD [place] MAMMO PROCEDURES Callie l Result * XR Chest Pa Lateral 2 Views (09/12/2015 12:03 PM DIGESTER) Anatomical Region Laterality Modality Body, Chest N/A Radiographic Ashley ging 09/12/2015 12:0 3 PM DIGESTER Narrative 09/12/2015 12:39 PM DIGESTER Jean OWEN M.D. FINAL REPORT The radiology attending physician has personally reviewed this study, and has reviewed and/or edited this written report and agrees with it. ACC# ??Date Time ??Exam [id number] Sep 12, 2015 12:03:00 [id number] Chest 2 views Frontl & Lat EXAMINATION: ?? CHEST 2 VIEW AP AND LATERAL IMPRESSION: ?? Comparison is made to prior radiograph dated 07/12/15. The lungs are clear. There is no pneumothorax, pleural effusion, or new focal consolidation. The cardiomediastinal silhouette is within normal limits. The aorta is tortuous. Requested By: Dictated By: ?? ELLI SAAB M.D. ??on Sep 12 2015 12:33P This document has been electronically signed by: SHAMA ANDERSON M.D. on Sep 12 2015 12:39P [id number] Procedure Note Provider, MD Ernestina - 02/07/2017 Jean OWEN M.D. FINAL REPORT The radiology attending physician has personally reviewed this study, and has reviewed and/or edited this written report and agrees with it. ACC# Date Time Exam [id number] Sep 12, 2015 12:03:00 [id number] Chest 2 views Frontl & Lat EXAMINATION: CHEST 2 VIEW AP AND LATERAL IMPRESSION: Comparison is made to prior radiograph dated 07/12/15. The lungs are clear. There is no pneumothorax, pleural effusion, or new focal consolidation. The cardiomediastinal silhouette is within normal limits. The aorta is tortuous. Requested By: Dictated By: ELLI SAAB M.D. on Sep 12 2015 12:33P This document has been electronically signed by: SHAMA ANDERSON M.D. on Sep 12 2015 12:39P [id number] us Historical Provider MD [place] XR PROCEDURES Final R esult documented in this encounter Visit Diagnoses Diagnosis Encounter for screening mammogram for malignant neoplasm of breast Generalized hyperhidrosis documented in this encounter Care Teams Dye Line Operator Relationship Specialty Start Date End Date Santiago Bueno MD [address] [place] [address] PCP - General 09/03/06 10/14/16 documented as of this encounter
--- OUTSIDE RECORDS SUMMARY | 2024-08-29 10:28 | XMS_ITS | Encounter Summary ---
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 Name Role Phone Santiago Bueno MD Primary Care Provider [phone] Encounter Details Date Type Department Care Team (Latest Contact Info) Description 06/16/2013 - 06/16/2013 11:59 PM T Hospital Encounter [facility] Santiago Bueno MD [address] [place] [address] Other abnormal findings on radiological examination of breast; Other breast disorders Social History Tobacco Use Types Packs/Day Years Used Date Smoking Tobacco: Never Assessed Comments Unknown Sex and Gender Information Value Date Recorded Sex Assigned at Not on file 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 Gender Identity Not on file Sexual [...] Priority Date/Time Associated Diagnosis Comments DIAGNOSTIC MAMMOGRAM 2D LEFT Routine 06/16/2013 8:43 AM CDT RADIOLOGIC EXAMINATION OF SURGICAL SPECIMEN Routine 06/16/2013 8:28 AM CDT MAMMO GUIDED LOCALIZATION BREAST EACH ADDITIONAL Routine 06/16/2013 8:28 AM CDT MAMMO GUIDED LOCALIZATION BREAST EACH ADDITIONAL Routine 06/16/2013 8:28 AM CDT MAMMO GUIDED LOCALIZATION BREAST EACH ADDITIONAL Routine 06/16/2013 8:28 AM CDT SURGICAL PATHOLOGY 06/16/2013 documented in this encounter Results * DIAGNOSTIC MAMMOGRAM 2D LEFT (06/16/2013 8:43 AM CDT) Anatomical Region Laterality Modality Breast Left Mammography 06/16/2013 8:43 AM CDT Narrative 06/19/2013 2:20 PM CDT AMY LOPES M.D. FINAL REPORT The radiology attending physician has personally reviewed this study, and has reviewed and/or edited this written report and agrees with it. ACC# ??Date Time ??Exam [id number] Jun 16, 2013 08:28:00 [facility] 02655 Breast Vac Assist Core Bx R [id number] Jun 16, 2013 08:28:00 [facility] 19737 Img Gd Plc Clip Breast Bx R [id number] Jun 16, 2013 08:28:00 [facility] 96351 Rad Exam Surgical Specimen R [id number] Jun 16, 2013 08:28:[address] [facility] [id number] Mammotome w/clip R ?? Technologist(s): Dannielle Barboza; ; [id number] Jun 16, 2013 08:43:00 [facility] 60039S Mamm Unilat Post Bx Films R EXAMINATION: ?? VACUUM-ASSISTED CORE BIOPSY OF THE RIGHT BREAST UTILIZING STEREOTACTIC GUIDANCE, SPECIMEN RADIOGRAPH, TISSUE MARKER CLIP PLACEMENT AND RIGHT UNILATERAL DIGITAL MAMMOGRAM HISTORY: 62 year old woman with abnormal mammogram. Recent mammogram demonstrated indeterminate microcalcifications in the upper outer quadrant of the right breast. ??Stereotactic-guided core needle biopsy is requested to evaluate for malignancy. PROCEDURE AND FINDINGS: The risks and potential benefits of the procedure were discussed with the patient and written informed consent was obtained. The patient was placed in the prone position on the stereotactic table with the breast in lateromedial compression and the area of interest was localized and targeted utilizing digital imaging with stereotaxis. After sterile preparation of the skin, 1% lidocaine was utilized for local anesthesia at the skin puncture site and 2% lidocaine with epinephrine was utilized for deeper local anesthesia/hemostasis about the biopsy site. A small skin incision was made with a #11 scalpel blade. ??A 9 gauge Calixaros vacuum-assisted biopsy needle was then advanced ??through the skin incision to the level of the calcifications of interest from a lateral approach utilizing stereotactic guidance and a total of 6 tissue cores were obtained. The specimen radiograph demonstrates that the calcifications of interest are included within the tissue cores. ??A SecurMark tissue marker clip was then placed at the biopsy site. The needle was removed and hemostasis was achieved. A sterile bandage and an ice pack were applied. The patient tolerated the procedure well and there is no evidence of significant immediate complication. The patient was given verbal as well as written post procedural instructions prior to release from the department. The tissue cores were submitted to surgical pathology in formalin for histologic analysis. A two-view right unilateral digital mammogram was obtained post procedure and this demonstrates that the tissue marker clip is in the expected position. The attending radiologist, Dr. Lopes, was present throughout the entire procedure. Dr. Lety Carrera (breast imaging fellow) and Dr. Umberto Shrestha (diagnostic director of radiology) also participated in this examination. ?? IMPRESSION: ?Successful vacuum-assisted core needle biopsy of the calcifications of interest in the right breast utilizing stereotactic guidance. ??Pathology pending. ADDENDUM #1 by Sheyla Granados RN for Dr. Amy Lopes on 06/19/13 at 2:20 p.m.: Histopathology from the core needle biopsy above demonstrated calcifications associated with benign ductal profiles, apocrine metaplasia, and columnar cell change. ??There were no atypical or malignant findings. ??These findings are benign and concordant with the imaging findings. ??Annual screening mammography is recommended, in accordance with the [employer] breast cancer screening guidelines. ??The patient was notified of the biopsy results and recommendations by Laine Theodore, MSN, ACNS-BC of the [facility] on 06/18/13. ?? Requested By: Santiago Bueno ??M.D. Dictated By: ?? VIRIDIANA CARRERA M.D. ??on Jun 16 2013 11:34A This document has been electronically signed by: AMY LOPES M.D. on Jun 16 2013 11:38A ??on Jun 19 2013 ??2:20P This Addendum has been electronically signed by: AMY LOPES M.D. on Jun 19 2013 ??2:20P Procedure Note Provider, MD Ernestina - 01/03/2017 AMY LOPES M.D. FINAL REPORT The radiology attending physician has personally reviewed this study, and has reviewed and/or edited this written report and agrees with it. ACC# Date Time Exam [id number] Jun 16, 2013 08:28:00 [facility] 56074 Breast Vac Assist Core Bx R [id number] Jun 16, 2013 08:28:00 [facility] 54154 Img Gd Plc Clip Breast Bx R [id number] Jun 16, 2013 08:28:00 [facility] 96905 Rad Exam Surgical Specimen R [id number] Jun 16, 2013 08:28:[address] [facility] [address] Mammotome w/clip R Technologist(s): Dannielle Barboza; ; [id number] Jun 16, 2013 08:43:00 [facility] 90318F Mamm Unilat Post Bx Films R EXAMINATION: VACUUM-ASSISTED CORE BIOPSY OF THE RIGHT BREAST UTILIZING STEREOTACTIC GUIDANCE, SPECIMEN RADIOGRAPH, TISSUE MARKER CLIP PLACEMENT AND RIGHT UNILATERAL DIGITAL MAMMOGRAM HISTORY: 62 year old woman with abnormal mammogram. Recent mammogram demonstrated indeterminate microcalcifications in the upper outer quadrant of the right breast. Stereotactic-guided core needle biopsy is requested to evaluate for malignancy. PROCEDURE AND FINDINGS: The risks and potential benefits of the procedure were discussed with the patient and written informed consent was obtained. The patient was placed in the prone position on the stereotactic table with the breast in lateromedial compression and the area of interest was localized and targeted utilizing digital imaging with stereotaxis. After sterile preparation of the skin, 1% lidocaine was utilized for local anesthesia at the skin puncture site and 2% lidocaine with epinephrine was utilized for deeper local anesthesia/hemostasis about the biopsy site. A small skin incision was made with a #11 scalpel blade. A 9 gauge Suros vacuum-assisted biopsy needle was then advanced through the skin incision to the level of the calcifications of interest from a lateral approach utilizing stereotactic guidance and a total of 6 tissue cores were obtained. The specimen radiograph demonstrates that the calcifications of interest are included within the tissue cores. A SecurMark tissue marker clip was then placed at the biopsy site. The needle was removed and hemostasis was achieved. A sterile bandage and an ice pack were applied. The patient tolerated the procedure well and there is no evidence of significant immediate complication. The patient was given verbal as well as written post procedural instructions prior to release from the department. The tissue cores were submitted to surgical pathology in formalin for histologic analysis. A two-view right unilateral digital mammogram was obtained post procedure and this demonstrates that the tissue marker clip is in the expected position. The attending radiologist, Dr. Lopes, was present throughout the entire procedure. Dr. Lety Carrera (breast imaging fellow) and Dr. Umberto Shrestha (diagnostic director of radiology) also participated in this examination. IMPRESSION: Successful vacuum-assisted core needle biopsy of the calcifications of interest in the right breast utilizing stereotactic guidance. Pathology pending. ADDENDUM #1 by Sheyla Granados RN for Dr. Amy Lopes on 06/19/13 at 2:20 p.m.: Histopathology from the core needle biopsy above demonstrated calcifications associated with benign ductal profiles, apocrine metaplasia, and columnar cell change. There were no atypical or malignant findings. These findings are benign and concordant with the imaging findings. Annual screening mammography is recommended, in accordance with the [employer] breast cancer screening guidelines. The patient was notified of the biopsy results and recommendations by Laine Theodore, MSN, ACNS-BC of the [facility] on 06/18/13. Requested By: Santiago Bueno M.D. Dictated By: VIRIDIANA CARRERA M.D. on Jun 16 2013 11:34A This document has been electronically signed by: AMY LOPES M.D. on Jun 16 2013 11:38A on Jun 19 2013 2:20P This Addendum has been electronically signed by: AMY LOPES M.D. on Jun 19 2013 2:20P us Historical Provider MD [facility] [facility] Callie l Result * Radiologic Examination of Surgical Specimen (06/16/2013 8:28 AM CDT) Anatomical Region Laterality Modality Breast N/A Mammography 06/16/2013 8:28 AM CDT Narrative 06/19/2013 2:20 PM CDT AMY LOPES M.D. FINAL REPORT The radiology attending physician has personally reviewed this study, and has reviewed and/or edited this written report and agrees with it. ACC# ??Date Time ??Exam [id number] Jun 16, 2013 08:28:00 [facility] 28072 Breast Vac Assist Core Bx R [id number] Jun 16, 2013 08:28:00 [facility] 46035 Img Gd Plc Clip Breast Bx R [id number] Jun 16, 2013 08:28:00 [facility] 79510 Rad Exam Surgical Specimen R [id number] Jun 16, 2013 08:28:[address] [facility] [address] Mammotome w/clip R ?? Technologist(s): Dannielle Barboza; ; [id number] Jun 16, 2013 08:43:00 [facility] 43937U Mamm Unilat Post Bx Films R EXAMINATION: ?? VACUUM-ASSISTED CORE BIOPSY OF THE RIGHT BREAST UTILIZING STEREOTACTIC GUIDANCE, SPECIMEN RADIOGRAPH, TISSUE MARKER CLIP PLACEMENT AND RIGHT UNILATERAL DIGITAL MAMMOGRAM HISTORY: 62 year old woman with abnormal mammogram. Recent mammogram demonstrated indeterminate microcalcifications in the upper outer quadrant of the right breast. ??Stereotactic-guided core needle biopsy is requested to evaluate for malignancy. PROCEDURE AND FINDINGS: The risks and potential benefits of the procedure were discussed with the patient and written informed consent was obtained. The patient was placed in the prone position on the stereotactic table with the breast in lateromedial compression and the area of interest was localized and targeted utilizing digital imaging with stereotaxis. After sterile preparation of the skin, 1% lidocaine was utilized for local anesthesia at the skin puncture site and 2% lidocaine with epinephrine was utilized for deeper local anesthesia/hemostasis about the biopsy site. A small skin incision was made with a #11 scalpel blade. ??A 9 gauge Suros vacuum-assisted biopsy needle was then advanced ??through the skin incision to the level of the calcifications of interest from a lateral approach utilizing stereotactic guidance and a total of 6 tissue cores were obtained. The specimen radiograph demonstrates that the calcifications of interest are included within the tissue cores. ??A SecurMark tissue marker clip was then placed at the biopsy site. The needle was removed and hemostasis was achieved. A sterile bandage and an ice pack were applied. The patient tolerated the procedure well and there is no evidence of significant immediate complication. The patient was given verbal as well as written post procedural instructions prior to release from the department. The tissue cores were submitted to surgical pathology in formalin for histologic analysis. A two-view right unilateral digital mammogram was obtained post procedure and this demonstrates that the tissue marker clip is in the expected position. The attending radiologist, Dr. Lopes, was present throughout the entire procedure. Dr. Lety Carrera (breast imaging fellow) and Dr. Umberto Shrestha (diagnostic director of radiology) also participated in this examination. ?? IMPRESSION: ?Successful vacuum-assisted core needle biopsy of the calcifications of interest in the right breast utilizing stereotactic guidance. ??Pathology pending. ADDENDUM #1 by Sheyla Granados RN for Dr. Amy Lopes on 06/19/13 at 2:20 p.m.: Histopathology from the core needle biopsy above demonstrated calcifications associated with benign ductal profiles, apocrine metaplasia, and columnar cell change. ??There were no atypical or malignant findings. ??These findings are benign and concordant with the imaging findings. ??Annual screening mammography is recommended, in accordance with the [employer] breast cancer screening guidelines. ??The patient was notified of the biopsy results and recommendations by Laine Theodore, MSN, ACNS-BC of the [facility] on 06/18/13. ?? Requested By: Santiago Bueno ??Jean Dictated By: ?? VIRIDIANA CARRERA M.D. ??on Jun 16 2013 11:34A This document has been electronically signed by: AMY LOPES M.D. on Jun 16 2013 11:38A ??on Jun 19 2013 ??2:20P This Addendum has been electronically signed by: AMY LOPES M.D. on Jun 19 2013 ??2:20P Procedure Note Provider, MD Ernestina - 01/03/2017 AMY LOPES M.D. FINAL REPORT The radiology attending physician has personally reviewed this study, and has reviewed and/or edited this written report and agrees with it. ACC# Date Time Exam [id number] Jun 16, 2013 08:28:00 [facility] 30525 Breast Vac Assist Core Bx R [id number] Jun 16, 2013 08:28:00 [facility] 51647 Img Gd Plc Clip Breast Bx R [id number] Jun 16, 2013 08:28:00 [facility] 32362 Rad Exam Surgical Specimen R [id number] Jun 16, 2013 08:28:[address] [facility] [id number] Mammotome w/clip R Technologist(s): Dannielle Barboza; ; [id number] Jun 16, 2013 08:43:00 [facility] [id number] Mamm Unilat Post Bx Films R EXAMINATION: VACUUM-ASSISTED CORE BIOPSY OF THE RIGHT BREAST UTILIZING STEREOTACTIC GUIDANCE, SPECIMEN RADIOGRAPH, TISSUE MARKER CLIP PLACEMENT AND RIGHT UNILATERAL DIGITAL MAMMOGRAM HISTORY: 62 year old woman with abnormal mammogram. Recent mammogram demonstrated indeterminate microcalcifications in the upper outer quadrant of the right breast. Stereotactic-guided core needle biopsy is requested to evaluate for malignancy. PROCEDURE AND FINDINGS: The risks and potential benefits of the procedure were discussed with the patient and written informed consent was obtained. The patient was placed in the prone position on the stereotactic table with the breast in lateromedial compression and the area of interest was localized and targeted utilizing digital imaging with stereotaxis. After sterile preparation of the skin, 1% lidocaine was utilized for local anesthesia at the skin puncture site and 2% lidocaine with epinephrine was utilized for deeper local anesthesia/hemostasis about the biopsy site. A small skin incision was made with a #11 scalpel blade. A 9 gauge Element Robot vacuum-assisted biopsy needle was then advanced through the skin incision to the level of the calcifications of interest from a lateral approach utilizing stereotactic guidance and a total of 6 tissue cores were obtained. The specimen radiograph demonstrates that the calcifications of interest are included within the tissue cores. A SecurMark tissue marker clip was then placed at the biopsy site. The needle was removed and hemostasis was achieved. A sterile bandage and an ice pack were applied. The patient tolerated the procedure well and there is no evidence of significant immediate complication. The patient was given verbal as well as written post procedural instructions prior to release from the department. The tissue cores were submitted to surgical pathology in formalin for histologic analysis. A two-view right unilateral digital mammogram was obtained post procedure and this demonstrates that the tissue marker clip is in the expected position. The attending radiologist, Dr. Lopes, was present throughout the entire procedure. Dr. Lety Carrera (breast imaging fellow) and Dr. Umberto Shrestha (diagnostic director of radiology) also participated in this examination. IMPRESSION: Successful vacuum-assisted core needle biopsy of the calcifications of interest in the right breast utilizing stereotactic guidance. Pathology pending. ADDENDUM #1 by Sheyla Granados RN for Dr. Amy Lopes on 06/19/13 at 2:20 p.m.: Histopathology from the core needle biopsy above demonstrated calcifications associated with benign ductal profiles, apocrine metaplasia, and columnar cell change. There were no atypical or malignant findings. These findings are benign and concordant with the imaging findings. Annual screening mammography is recommended, in accordance with the [employer] breast cancer screening guidelines. The patient was notified of the biopsy results and recommendations by Laine Theodore, MSN, ACNS-BC of the [facility] on 06/18/13. Requested By: Santiago Bueno M.D. Dictated By: VIRIDIANA CARRERA M.D. on Jun 16 2013 11:34A This document has been electronically signed by: AMY LOPES M.D. on Jun 16 2013 11:38A on Jun 19 2013 2:20P This Addendum has been electronically signed by: AMY LOPES M.D. on Jun 19 2013 2:20P us Historical Provider MD [place] [facility] Callie l Result * MAMMO GUIDED LOCALIZATION BREAST EACH ADDITIONAL (06/16/2013 8:28 AM CDT) Anatomical Region Laterality Modality Breast N/A Mammography 06/16/2013 8:28 AM CDT Narrative 06/19/2013 2:20 PM CDT AMY LOPES M.D. FINAL REPORT The radiology attending physician has personally reviewed this study, and has reviewed and/or edited this written report and agrees with it. ACC# ??Date Time ??Exam [id number] Jun 16, 2013 08:28:00 [facility] 35122 Breast Vac Assist Core Bx R [id number] Jun 16, 2013 08:28:00 [facility] 59233 Img Gd Plc Clip Breast Bx R [id number] Jun 16, 2013 08:28:00 [facility] 94695 Rad Exam Surgical Specimen R [id number] Jun 16, 2013 08:28:[address] [facility] [address] Mammotome w/clip R ?? Technologist(s): Dannielle Barboza; ; [id number] Jun 16, 2013 08:43:00 [facility] 93642Q Mamm Unilat Post Bx Films R EXAMINATION: ?? VACUUM-ASSISTED CORE BIOPSY OF THE RIGHT BREAST UTILIZING STEREOTACTIC GUIDANCE, SPECIMEN RADIOGRAPH, TISSUE MARKER CLIP PLACEMENT AND RIGHT UNILATERAL DIGITAL MAMMOGRAM HISTORY: 62 year old woman with abnormal mammogram. Recent mammogram demonstrated indeterminate microcalcifications in the upper outer quadrant of the right breast. ??Stereotactic-guided core needle biopsy is requested to evaluate for malignancy. PROCEDURE AND FINDINGS: The risks and potential benefits of the procedure were discussed with the patient and written informed consent was obtained. The patient was placed in the prone position on the stereotactic table with the breast in lateromedial compression and the area of interest was localized and targeted utilizing digital imaging with stereotaxis. After sterile preparation of the skin, 1% lidocaine was utilized for local anesthesia at the skin puncture site and 2% lidocaine with epinephrine was utilized for deeper local anesthesia/hemostasis about the biopsy site. A small skin incision was made with a #11 scalpel blade. ??A 9 gauge Element Robot vacuum-assisted biopsy needle was then advanced ??through the skin incision to the level of the calcifications of interest from a lateral approach utilizing stereotactic guidance and a total of 6 tissue cores were obtained. The specimen radiograph demonstrates that the calcifications of interest are included within the tissue cores. ??A SecurMark tissue marker clip was then placed at the biopsy site. The needle was removed and hemostasis was achieved. A sterile bandage and an ice pack were applied. The patient tolerated the procedure well and there is no evidence of significant immediate complication. The patient was given verbal as well as written post procedural instructions prior to release from the department. The tissue cores were submitted to surgical pathology in formalin for histologic analysis. A two-view right unilateral digital mammogram was obtained post procedure and this demonstrates that the tissue marker clip is in the expected position. The attending radiologist, Dr. Lopes, was present throughout the entire procedure. Dr. Lety Carrera (breast imaging fellow) and Dr. Umberto Shrestha (diagnostic director of radiology) also participated in this examination. ?? IMPRESSION: ?Successful vacuum-assisted core needle biopsy of the calcifications of interest in the right breast utilizing stereotactic guidance. ??Pathology pending. ADDENDUM #1 by Sheyla Granados RN for Dr. Amy Lopes on 06/19/13 at 2:20 p.m.: Histopathology from the core needle biopsy above demonstrated calcifications associated with benign ductal profiles, apocrine metaplasia, and columnar cell change. ??There were no atypical or malignant findings. ??These findings are benign and concordant with the imaging findings. ??Annual screening mammography is recommended, in accordance with the [employer] breast cancer screening guidelines. ??The patient was notified of the biopsy results and recommendations by Laine Theodore, MSN, ACNS-BC of the [facility] on 06/18/13. ?? Requested By: Santiago Bueno ??M.D. Dictated By: ?? VIRIDIANA CARRERA M.D. ??on Jun 16 2013 11:34A This document has been electronically signed by: AMY LOPES M.D. on Jun 16 2013 11:38A ??on Jun 19 2013 ??2:20P This Addendum has been electronically signed by: AMY LOPES M.D. on Jun 19 2013 ??2:20P Procedure Note Provider, MD Ernestina - 01/03/2017 AMY LOPES M.D. FINAL REPORT The radiology attending physician has personally reviewed this study, and has reviewed and/or edited this written report and agrees with it. ACC# Date Time Exam [id number] Jun 16, 2013 08:28:00 [facility] 41069 Breast Vac Assist Core Bx R [id number] Jun 16, 2013 08:28:00 [facility] 28294 Img Gd Plc Clip Breast Bx R [id number] Jun 16, 2013 08:28:00 [facility] 88855 Rad Exam Surgical Specimen R [id number] Jun 16, 2013 08:28:[address] [facility] [address] Mammotome w/clip R Technologist(s): Tamra Dannielle; ; [id number] Jun 16, 2013 08:43:00 [facility] 11586O Mamm Unilat Post Bx Films R EXAMINATION: VACUUM-ASSISTED CORE BIOPSY OF THE RIGHT BREAST UTILIZING STEREOTACTIC GUIDANCE, SPECIMEN RADIOGRAPH, TISSUE MARKER CLIP PLACEMENT AND RIGHT UNILATERAL DIGITAL MAMMOGRAM HISTORY: 62 year old woman with abnormal mammogram. Recent mammogram demonstrated indeterminate microcalcifications in the upper outer quadrant of the right breast. Stereotactic-guided core needle biopsy is requested to evaluate for malignancy. PROCEDURE AND FINDINGS: The risks and potential benefits of the procedure were discussed with the patient and written informed consent was obtained. The patient was placed in the prone position on the stereotactic table with the breast in lateromedial compression and the area of interest was localized and targeted utilizing digital imaging with stereotaxis. After sterile preparation of the skin, 1% lidocaine was utilized for local anesthesia at the skin puncture site and 2% lidocaine with epinephrine was utilized for deeper local anesthesia/hemostasis about the biopsy site. A small skin incision was made with a #11 scalpel blade. A 9 gauge Element Robot vacuum-assisted biopsy needle was then advanced through the skin incision to the level of the calcifications of interest from a lateral approach utilizing stereotactic guidance and a total of 6 tissue cores were obtained. The specimen radiograph demonstrates that the calcifications of interest are included within the tissue cores. A SecurMark tissue marker clip was then placed at the biopsy site. The needle was removed and hemostasis was achieved. A sterile bandage and an ice pack were applied. The patient tolerated the procedure well and there is no evidence of significant immediate complication. The patient was given verbal as well as written post procedural instructions prior to release from the department. The tissue cores were submitted to surgical pathology in formalin for histologic analysis. A two-view right unilateral digital mammogram was obtained post procedure and this demonstrates that the tissue marker clip is in the expected position. The attending radiologist, Dr. Lopes, was present throughout the entire procedure. Dr. Lety Carrera (breast imaging fellow) and Dr. Umberto Shrestha (diagnostic director of radiology) also participated in this examination. IMPRESSION: Successful vacuum-assisted core needle biopsy of the calcifications of interest in the right breast utilizing stereotactic guidance. Pathology pending. ADDENDUM #1 by Sheyla Granados RN for Dr. Amy Lopes on 06/19/13 at 2:20 p.m.: Histopathology from the core needle biopsy above demonstrated calcifications associated with benign ductal profiles, apocrine metaplasia, and columnar cell change. There were no atypical or malignant findings. These findings are benign and concordant with the imaging findings. Annual screening mammography is recommended, in accordance with the [employer] breast cancer screening guidelines. The patient was notified of the biopsy results and recommendations by Laine Theodore, MSN, ACNS-BC of the [facility] on 06/18/13. Requested By: Santiago Bueno M.D. Dictated By: VIRIDIANA CARRERA M.D. on Jun 16 2013 11:34A This document has been electronically signed by: AMY LOPES M.D. on Jun 16 2013 11:38A on Jun 19 2013 2:20P This Addendum has been electronically signed by: AMY LOPES M.D. on Jun 19 2013 2:20P Historical Provider MD [place] MAMMO PROCEDURES Callie l Result * MAMMO GUIDED LOCALIZATION BREAST EACH ADDITIONAL (06/16/2013 8:28 AM CDT) Anatomical Region Laterality Modality Breast N/A Mammography 06/16/2013 8:28 AM CDT Narrative 06/19/2013 2:20 PM CDT AYM LOPES M.D. FINAL REPORT The radiology attending physician has personally reviewed this study, and has reviewed and/or edited this written report and agrees with it. ACC# ??Date Time ??Exam [id number] Jun 16, 2013 08:28:00 [facility] 61978 Breast Vac Assist Core Bx R [id number] Jun 16, 2013 08:28:00 [facility] 77677 Img Gd Plc Clip Breast Bx R [id number] Jun 16, 2013 08:28:00 [facility] 20676 Rad Exam Surgical Specimen R [id number] Jun 16, 2013 08:28:[address] [facility] [id number] Mammotome w/clip R ?? Technologist(s): Dannielle Barboza; ; [id number] Jun 16, 2013 08:43:00 [facility] [id number] Mamm Unilat Post Bx Films R EXAMINATION: ?? VACUUM-ASSISTED CORE BIOPSY OF THE RIGHT BREAST UTILIZING STEREOTACTIC GUIDANCE, SPECIMEN RADIOGRAPH, TISSUE MARKER CLIP PLACEMENT AND RIGHT UNILATERAL DIGITAL MAMMOGRAM HISTORY: 62 year old woman with abnormal mammogram. Recent mammogram demonstrated indeterminate microcalcifications in the upper outer quadrant of the right breast. ??Stereotactic-guided core needle biopsy is requested to evaluate for malignancy. PROCEDURE AND FINDINGS: The risks and potential benefits of the procedure were discussed with the patient and written informed consent was obtained. The patient was placed in the prone position on the stereotactic table with the breast in lateromedial compression and the area of interest was localized and targeted utilizing digital imaging with stereotaxis. After sterile preparation of the skin, 1% lidocaine was utilized for local anesthesia at the skin puncture site and 2% lidocaine with epinephrine was utilized for deeper local anesthesia/hemostasis about the biopsy site. A small skin incision was made with a #11 scalpel blade. ??A 9 gauge Element Robot vacuum-assisted biopsy needle was then advanced ??through the skin incision to the level of the calcifications of interest from a lateral approach utilizing stereotactic guidance and a total of 6 tissue cores were obtained. The specimen radiograph demonstrates that the calcifications of interest are included within the tissue cores. ??A SecurMark tissue marker clip was then placed at the biopsy site. The needle was removed and hemostasis was achieved. A sterile bandage and an ice pack were applied. The patient tolerated the procedure well and there is no evidence of significant immediate complication. The patient was given verbal as well as written post procedural instructions prior to release from the department. The tissue cores were submitted to surgical pathology in formalin for histologic analysis. A two-view right unilateral digital mammogram was obtained post procedure and this demonstrates that the tissue marker clip is in the expected position. The attending radiologist, Dr. Lopes, was present throughout the entire procedure. Dr. Lety Carrera (breast imaging fellow) and Dr. Umberto Shrestha (diagnostic director of radiology) also participated in this examination. ?? IMPRESSION: ?Successful vacuum-assisted core needle biopsy of the calcifications of interest in the right breast utilizing stereotactic guidance. ??Pathology pending. ADDENDUM #1 by Sheyla Granadso RN for Dr. Amy Lopes on 06/19/13 at 2:20 p.m.: Histopathology from the core needle biopsy above demonstrated calcifications associated with benign ductal profiles, apocrine metaplasia, and columnar cell change. ??There were no atypical or malignant findings. ??These findings are benign and concordant with the imaging findings. ??Annual screening mammography is recommended, in accordance with the [employer] breast cancer screening guidelines. ??The patient was notified of the biopsy results and recommendations by Laine Theodore, MSN, ACNS-BC of the [facility] on 06/18/13. ?? Requested By: Santiago Bueno ??M.D. Dictated By: ?? VIRIDIANA CARRERA M.D. ??on Jun 16 2013 11:34A This document has been electronically signed by: AMY LOPES M.D. on Jun 16 2013 11:38A ??on Jun 19 2013 ??2:20P This Addendum has been electronically signed by: AMY LOPES M.D. on Jun 19 2013 ??2:20P Procedure Note Provider, MD Ernestina - 01/03/2017 AMY LOPES M.D. FINAL REPORT The radiology attending physician has personally reviewed this study, and has reviewed and/or edited this written report and agrees with it. ACC# Date Time Exam [id number] Jun 16, 2013 08:28:00 [facility] 44095 Breast Vac Assist Core Bx R [id number] Jun 16, 2013 08:28:00 [facility] 18777 Img Gd Plc Clip Breast Bx R [id number] Jun 16, 2013 08:28:00 [facility] 73054 Rad Exam Surgical Specimen R [id number] Jun 16, 2013 08:28:[address] [facility] [id number] Mammotome w/clip R Technologist(s): Dannielle Barboza; ; [id number] Jun 16, 2013 08:43:00 [facility] 17978I Mamm Unilat Post Bx Films R EXAMINATION: VACUUM-ASSISTED CORE BIOPSY OF THE RIGHT BREAST UTILIZING STEREOTACTIC GUIDANCE, SPECIMEN RADIOGRAPH, TISSUE MARKER CLIP PLACEMENT AND RIGHT UNILATERAL DIGITAL MAMMOGRAM HISTORY: 62 year old woman with abnormal mammogram. Recent mammogram demonstrated indeterminate microcalcifications in the upper outer quadrant of the right breast. Stereotactic-guided core needle biopsy is requested to evaluate for malignancy. PROCEDURE AND FINDINGS: The risks and potential benefits of the procedure were discussed with the patient and written informed consent was obtained. The patient was placed in the prone position on the stereotactic table with the breast in lateromedial compression and the area of interest was localized and targeted utilizing digital imaging with stereotaxis. After sterile preparation of the skin, 1% lidocaine was utilized for local anesthesia at the skin puncture site and 2% lidocaine with epinephrine was utilized for deeper local anesthesia/hemostasis about the biopsy site. A small skin incision was made with a #11 scalpel blade. A 9 gauge Suros vacuum-assisted biopsy needle was then advanced through the skin incision to the level of the calcifications of interest from a lateral approach utilizing stereotactic guidance and a total of 6 tissue cores were obtained. The specimen radiograph demonstrates that the calcifications of interest are included within the tissue cores. A SecurMark tissue marker clip was then placed at the biopsy site. The needle was removed and hemostasis was achieved. A sterile bandage and an ice pack were applied. The patient tolerated the procedure well and there is no evidence of significant immediate complication. The patient was given verbal as well as written post procedural instructions prior to release from the department. The tissue cores were submitted to surgical pathology in formalin for histologic analysis. A two-view right unilateral digital mammogram was obtained post procedure and this demonstrates that the tissue marker clip is in the expected position. The attending radiologist, Dr. Lopes, was present throughout the entire procedure. Dr. Lety Carrera (breast imaging fellow) and Dr. Umberto Shrestha (diagnostic director of radiology) also participated in this examination. IMPRESSION: Successful vacuum-assisted core needle biopsy of the calcifications of interest in the right breast utilizing stereotactic guidance. Pathology pending. ADDENDUM #1 by Sheyla Granados RN for Dr. Amy Lopes on 06/19/13 at 2:20 p.m.: Histopathology from the core needle biopsy above demonstrated calcifications associated with benign ductal profiles, apocrine metaplasia, and columnar cell change. There were no atypical or malignant findings. These findings are benign and concordant with the imaging findings. Annual screening mammography is recommended, in accordance with the [employer] breast cancer screening guidelines. The patient was notified of the biopsy results and recommendations by Laine Theodore, MSN, ACNS-BC of the [facility] on 06/18/13. Requested By: Santiago Bueno M.D. Dictated By: VIRIDIANA CARRERA M.D. on Jun 16 2013 11:34A This document has been electronically signed by: AMY LOPES M.D. on Jun 16 2013 11:38A on Jun 19 2013 2:20P This Addendum has been electronically signed by: AMY LOPES M.D. on Jun 19 2013 2:20P us Historical Provider MD [place] [facility] PROCEDURES Callie l Result * MAMMO GUIDED LOCALIZATION BREAST EACH ADDITIONAL (06/16/2013 8:28 AM CDT) Anatomical Region Laterality Modality Breast N/A Mammography 06/16/2013 8:28 AM CDT Narrative 06/19/2013 2:20 PM CDT AMY LOPES M.D. FINAL REPORT The radiology attending physician has personally reviewed this study, and has reviewed and/or edited this written report and agrees with it. ACC# ??Date Time ??Exam [id number] Jun 16, 2013 08:28:00 [facility] 09407 Breast Vac Assist Core Bx R [id number] Jun 16, 2013 08:28:00 [facility] 58391 Img Gd Plc Clip Breast Bx R [id number] Jun 16, 2013 08:28:00 [facility] 03832 Rad Exam Surgical Specimen R [id number] Jun 16, 2013 08:28:[address] [facility] [id number] Mammotome w/clip R ?? Technologist(s): Dannielle Barboza; ; [id number] Jun 16, 2013 08:43:00 [facility] 95353E Mamm Unilat Post Bx Films R EXAMINATION: ?? VACUUM-ASSISTED CORE BIOPSY OF THE RIGHT BREAST UTILIZING STEREOTACTIC GUIDANCE, SPECIMEN RADIOGRAPH, TISSUE MARKER CLIP PLACEMENT AND RIGHT UNILATERAL DIGITAL MAMMOGRAM HISTORY: 62 year old woman with abnormal mammogram. Recent mammogram demonstrated indeterminate microcalcifications in the upper outer quadrant of the right breast. ??Stereotactic-guided core needle biopsy is requested to evaluate for malignancy. PROCEDURE AND FINDINGS: The risks and potential benefits of the procedure were discussed with the patient and written informed consent was obtained. The patient was placed in the prone position on the stereotactic table with the breast in lateromedial compression and the area of interest was localized and targeted utilizing digital imaging with stereotaxis. After sterile preparation of the skin, 1% lidocaine was utilized for local anesthesia at the skin puncture site and 2% lidocaine with epinephrine was utilized for deeper local anesthesia/hemostasis about the biopsy site. A small skin incision was made with a #11 scalpel blade. ??A 9 gauge Suros vacuum-assisted biopsy needle was then advanced ??through the skin incision to the level of the calcifications of interest from a lateral approach utilizing stereotactic guidance and a total of 6 tissue cores were obtained. The specimen radiograph demonstrates that the calcifications of interest are included within the tissue cores. ??A SecurMark tissue marker clip was then placed at the biopsy site. The needle was removed and hemostasis was achieved. A sterile bandage and an ice pack were applied. The patient tolerated the procedure well and there is no evidence of significant immediate complication. The patient was given verbal as well as written post procedural instructions prior to release from the department. The tissue cores were submitted to surgical pathology in formalin for histologic analysis. A two-view right unilateral digital mammogram was obtained post procedure and this demonstrates that the tissue marker clip is in the expected position. The attending radiologist, Dr. Lopes, was present throughout the entire procedure. Dr. Lety Carrera (breast imaging fellow) and Dr. Umberto Shrestha (diagnostic director of radiology) also participated in this examination. ?? IMPRESSION: ?Successful vacuum-assisted core needle biopsy of the calcifications of interest in the right breast utilizing stereotactic guidance. ??Pathology pending. ADDENDUM #1 by Sheyla Granados RN for Dr. Amy Lopes on 06/19/13 at 2:20 p.m.: Histopathology from the core needle biopsy above demonstrated calcifications associated with benign ductal profiles, apocrine metaplasia, and columnar cell change. ??There were no atypical or malignant findings. ??These findings are benign and concordant with the imaging findings. ??Annual screening mammography is recommended, in accordance with the [employer] breast cancer screening guidelines. ??The patient was notified of the biopsy results and recommendations by Laine Theodore, MSN, ACNS-BC of the [facility] on 06/18/13. ?? Requested By: Santiago Bueno ??Jean Dictated By: ?? VIRIDIANA CARRERA M.D. ??on Jun 16 2013 11:34A This document has been electronically signed by: AMY LOPES M.D. on Jun 16 2013 11:38A ??on Jun 19 2013 ??2:20P This Addendum has been electronically signed by: AMY LOPES M.D. on Jun 19 2013 ??2:20P Procedure Note Provider, MD Ernestina - 01/03/2017 AMY LOPES M.D. FINAL REPORT The radiology attending physician has personally reviewed this study, and has reviewed and/or edited this written report and agrees with it. ACC# Date Time Exam [id number] Jun 16, 2013 08:28:00 [facility] 65734 Breast Vac Assist Core Bx R [id number] Jun 16, 2013 08:28:00 [facility] 51329 Img Gd Plc Clip Breast Bx R [id number] Jun 16, 2013 08:28:00 [facility] 61190 Rad Exam Surgical Specimen R [id number] Jun 16, 2013 08:28:[address] [facility] [address] Mammotome w/clip R Technologist(s): Dannielle Barboza; ; [id number] Jun 16, 2013 08:43:00 [facility] 70064F Mamm Unilat Post Bx Films R EXAMINATION: VACUUM-ASSISTED CORE BIOPSY OF THE RIGHT BREAST UTILIZING STEREOTACTIC GUIDANCE, SPECIMEN RADIOGRAPH, TISSUE MARKER CLIP PLACEMENT AND RIGHT UNILATERAL DIGITAL MAMMOGRAM HISTORY: 62 year old woman with abnormal mammogram. Recent mammogram demonstrated indeterminate microcalcifications in the upper outer quadrant of the right breast. Stereotactic-guided core needle biopsy is requested to evaluate for malignancy. PROCEDURE AND FINDINGS: The risks and potential benefits of the procedure were discussed with the patient and written informed consent was obtained. The patient was placed in the prone position on the stereotactic table with the breast in lateromedial compression and the area of interest was localized and targeted utilizing digital imaging with stereotaxis. After sterile preparation of the skin, 1% lidocaine was utilized for local anesthesia at the skin puncture site and 2% lidocaine with epinephrine was utilized for deeper local anesthesia/hemostasis about the biopsy site. A small skin incision was made with a #11 scalpel blade. A 9 gauge Element Robot vacuum-assisted biopsy needle was then advanced through the skin incision to the level of the calcifications of interest from a lateral approach utilizing stereotactic guidance and a total of 6 tissue cores were obtained. The specimen radiograph demonstrates that the calcifications of interest are included within the tissue cores. A SecurMark tissue marker clip was then placed at the biopsy site. The needle was removed and hemostasis was achieved. A sterile bandage and an ice pack were applied. The patient tolerated the procedure well and there is no evidence of significant immediate complication. The patient was given verbal as well as written post procedural instructions prior to release from the department. The tissue cores were submitted to surgical pathology in formalin for histologic analysis. A two-view right unilateral digital mammogram was obtained post procedure and this demonstrates that the tissue marker clip is in the expected position. The attending radiologist, Dr. Lopes, was present throughout the entire procedure. Dr. Lety Carrera (breast imaging fellow) and Dr. Umberto Shrestha (diagnostic director of radiology) also participated in this examination. IMPRESSION: Successful vacuum-assisted core needle biopsy of the calcifications of interest in the right breast utilizing stereotactic guidance. Pathology pending. ADDENDUM #1 by Sheyla Granados RN for Dr. Amy Lopes on 06/19/13 at 2:20 p.m.: Histopathology from the core needle biopsy above demonstrated calcifications associated with benign ductal profiles, apocrine metaplasia, and columnar cell change. There were no atypical or malignant findings. These findings are benign and concordant with the imaging findings. Annual screening mammography is recommended, in accordance with the [employer] breast cancer screening guidelines. The patient was notified of the biopsy results and recommendations by Laine Theodore, MSN, ACNS-BC of the [facility] on 06/18/13. Requested By: Santiago Bueno M.D. Dictated By: VIRIDIANA CARRERA M.D. on Jun 16 2013 11:34A This document has been electronically signed by: AMY LOPES M.D. on Jun 16 2013 11:38A on Jun 19 2013 2:20P This Addendum has been electronically signed by: AMY LOPES M.D. on Jun 19 2013 2:20P us Historical Provider [facility] MAMMO PROCEDURES Callie l Result * Surgical pathology (06/16/2013) Narrative 06/16/2013 Ordered by an unspecified provider. 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
--- OUTSIDE RECORDS SUMMARY | 2024-08-29 10:28 | XMS_ITS | Encounter Summary ---
Author Organization [facility] Care Team Providers Care Special Services Director Name Role Phone Santiago Bueno MD Primary Care Provider [phone] Encounter Details Date Type Department Care Team (Latest Contact Info) Description 11/30/2014 10:39 AM CDT - 11/30/2014 11:59 PM T Hospital Encounter [facility] Santiago Bueno MD [address] [facility] [address] [place] [address] Benign essential hypertension; Disorder of bone and cartilage Social History Tobacco Use Types Packs/Day Years Used Date Smoking Tobacco: Never Alcohol Use Standard Drinks/Week Comments Yes 0 (1 standard drink = 0.6 oz pur e alcohol) Comments Unknown Sex and Gender Information Value Date Recorded Sex Assigned at Not on file Legal Sex Female 12:11 AM MEDICAL 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 ANALYST Gender Identity Not on file Sexual [...] Name Priority Date/Time Associated Diagnosis Comments URINE MICROSCOPY Routine 11/30/2014 10:0 6 AM CDT PLASMA LIPID PANEL Routine 11/30/2014 10 :06 AM CDT PLASMA COMPREHENSIVE METABOLIC PANEL Routine 11/30/2014 10:06 AM CDT BLOOD CELL COUNT (CBC), MORPHOLOGIC EXAM Routine 11/30/2014 10:06 AM CDT URINALYSIS Routine 11/30/2014 10:06 AM CDT SERUM 25-HYDROXYCHOLECALCIFE ROL (VITAMIN D) Routine 11/30/2014 5:06 AM CDT DISCHARGE LABORATORY CUMULATIVE REPORT 11/30/2014 documented in this encounter Results * (ABNORMAL) Blood cell count (CBC), morphologic exam (11/30/2014 10:06 AM CDT) WBC 5.1 4.5 - 11.0 K/cumm HISTORICAL RESULTS RBC 5.01 3.80 - 5.40 M/cumm HISTORICAL RESULTS Hgb 14.1 11.5 - 16.0 g/dl HISTORICAL RESULTS Hct 43.6 34.0 - 48.0 % HISTORICAL RESULTS MCV 87.0 80.0 - 100.0 fl HISTORICAL RESULTS MCH 28.1 27.0 - 33.0 pg HISTORICAL RESULTS MCHC 32.3 32.0 - 36.0 g/dl HISTORICAL RESULTS Rdw 14.2 11.5 - 14.5 % HISTORICAL RESULTS Platelets 258 140 - 400 K/cumm HISTORICAL RESULTS MPV 10.0 7.4 - 10.4 fl HISTORICAL RESULTS Neutrophils 46.5 42.0 - 75.0 % HISTORICAL RESULTS Lymphocytes 38.0 21.0 - 51.0 % HISTORICAL RESULTS Monos 11.4(H) 2.0 - 9.0 % HISTORICAL RESULTS Eosinophils 3.3 0.0 - 10.0 % HISTORICAL RESULTS Basophils 0.8 0.0 - 1.0 % HISTORICAL RESULTS Neutrophils, abs 2.4 1.0 - 6.6 K/cumm HISTORICAL RESULTS Lymphocytes, abs 1.9 1.2 - 3.3 K/cumm HISTORICAL RESULTS Monocytes, absolute 0.6 0.2 - 1.2 K/cumm HISTORICAL RESULTS Eosinophils, abs 0.2 0.0 - 0.5 K/cumm HISTORICAL RESULTS Basophils, abs 0.0 0.0 - 0.2 K/cumm HISTORICAL RESULTS Blood specimen (specimen) 11/30/2014 10:06 AM CDT us Santiago Bueno MD LAB BLOOD ORDERABLES Final Res ult HISTORICAL RESULTS * (ABNORMAL) Plasma comprehensive metabolic panel (11/30/2014 10:06 AM CDT) Pathologist [facility] eGFR >60 ml/min/1.7 3 m2 HISTORICAL RESULTS Comment: GFR Reference Range: = > 60 mL/min/1.73 m2 This result has been calculated assuming the patient is Non-. ??If the patient is , please multiply this result by 1.21. Sodium 139 136 - 145 mmol/L HISTORICAL RESULTS K, pl 3.9 3.5 - 5.1 mmol/L HISTORICAL RESULTS Chloride 102 98 - 107 mmol/L HISTORICAL RESULTS CO2 33(H) 21 - 32 mmol/L HISTORICAL RESULTS A. gap 4 3 - 11 mmol/L HISTORICAL RESULTS BUN 24(H) 7 - 18 mg/dl HISTORICAL RESULTS Creatinine 0.8 0.6 - 1.3 mg/dl HISTORICAL RESULTS Glucose 92 70 - 140 mg/dl HISTORICAL RESULTS Comment: Glucose is assumed to be non-fasting. Fasting Glucose reference ranges are: 0 days - 1 month: ? 40 mg/dL - 100 mg/dL 1 month - 999 years: ?70 mg/dL - 99 mg/dL Protein, pl 7.7 6.4 - 8.2 g/dl HISTORICAL RESULTS Alb 3.6 3.4 - 5.0 g/dl HISTORICAL RESULTS Calcium 9.4 8.5 - 10.1 mg/dl HISTORICAL RESULTS Alk phos 74 50 - 136 Units/L HISTORICAL RESULTS Bilirubin 0.5 0.1 - 1.0 mg/dl HISTORICAL RESULTS ALT 27 12 - 78 Units/L HISTORICAL RESULTS Comment:New referance range implemented on 11/20/2012 AST 22 15 - 37 Units/L HISTORICAL RESULTS Plasma 11/30/2014 10:0 6 AM CDT us Santiago Bueno MD LAB BLOOD ORDERABLES Final Res ult HISTORICAL RESULTS * (ABNORMAL) Plasma lipid panel (11/30/2014 10:06 AM CDT) Pathologist [facility] Cholesterol 182 140 - 199 mg/dl HISTORICAL RESULTS Triglycerides 78 20 - 150 mg/dl HISTORICAL RESULTS HDL 49 40 - 60 mg/dl HISTORICAL RESULTS LDL 117(H) 65 - 100 mg/dl HISTORICAL RESULTS Plasma 11/30/2014 10:0 6 AM CDT Santiago Bueno MD LAB BLOOD ORDERABLES Final Res ult Performing Organization Address [facility] de Phone Number HISTORICAL RESULTS * (ABNORMAL) Urinalysis (11/30/2014 10:06 AM CDT) Pathologist [facility] Specific gravity, ur >=1.030 1.000 - 1.030 HISTORICAL RESULTS pH, ur 6.0 5.0 - 8.5 HISTORICAL RESULTS Leukocyte esterase, ur Negative Negative HISTORICAL RESULTS Nitrites, ur Negative Negative HISTORI LEELA RESULTS Protein, ur Negative Negative HISTORIC AL RESULTS Glucose, ur Negative Negative HISTORIC AL RESULTS Ketones, ur Negative Negative HISTORIC AL RESULTS Urobilinogen, ur 0.2 0.2,1 HISTORICAL RESULTS Bilirubin, ur Negative Negative HISTOR ICAL RESULTS RBC, ur 2+(A) Negative HISTORICAL RESULTS Color, ur Yellow Yellow HISTORICAL RESULTS Clarity, ur Clear Clear HISTORIC AL RESULTS Urine 11/30/2014 10:0 6 AM CDT Santiago Bueno MD LAB BLOOD ORDERABLES Final Res ult Performing Organization Address [facility] de Phone Number HISTORICAL RESULTS * (ABNORMAL) Urine microscopy (11/30/2014 10:06 AM CDT) [facility] Epithelial cells, ur 10 - 20 /lpf HISTORICAL RESULTS WBC, ur 5 - 10(A) 0-2,2-5 /hpf HISTORICAL RESULTS RBC, ur 0 - 2 0 - 2 /hpf HISTORICAL RESULTS Mucus, ur 3+ /lpf HISTORICAL RESULTS Bacteria, ur 1+ /hpf HISTORI LEELA RESULTS Casts, ur None Seen /lpf HISTORICAL RESULTS Urine 11/30/2014 10:0 6 AM CDT Santiago Bueno MD LAB BLOOD ORDERABLES Final Res ult Performing Organization Address [facility] de Phone Number HISTORICAL RESULTS * Serum 25-hydroxycholecalciferol (vitamin D) (11/30/2014 5:06 AM CDT) [facility] 25-OH Vit D 34 30 - 100 ng/ml HISTORICAL RESULTS Serum 11/30/2014 5:06 AM CDT Narrative HISTORICAL RESULTS - 11/30/2014 1:32 PM CDT Test performed at [facility], [address] [facility] [address] [place], [place], [place], [address]. us Santiago Bueno MD LAB BLOOD ORDERABLES Final Res ult HISTORICAL RESULTS * DISCHARGE LABORATORY CUMULATIVE REPORT (11/30/2014) Narrative 11/30/2014 Ordered by an unspecified provider. 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
--- OUTSIDE RECORDS SUMMARY | 2024-08-29 10:29 | XMS_ITS | Encounter Summary ---
Author Organization [facility] Care Team Providers Care Instructional Technology Teacher Name Role Phone Santiago Bueno MD Primary Care Provider [phone] Encounter Details Date Type Department Care Team (Latest Contact Info) Description 04/25/2012 10:51 AM CDT Hospital Encounter [facility] Rebel Riley MD [address] [place] [address] Symptom associated with female genital organs Social History Tobacco Use Types Packs/Day Years Used Date Smoking Tobacco: Never Assessed Comments Unknown Sex and Gender Information Value Date Recorded Sex Assigned at Not on file Legal Sex Female 12:11 AM 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
--- OUTSIDE RECORDS SUMMARY | 2024-08-29 10:29 | XMS_ITS | Encounter Summary ---
Author Organization [facility] Facility Care Team Providers Care Manager Oracle Name Role Phone Santiago Bueno MD Primary Care Provider [phone] Encounter Details Date Type Department Care Team (Latest Contact Info) Description 02/06/2011 6:19 AM CDT Hospital Encounter [facility] Santiago Mobley MD [address] [place] [id number] Internal hemorrhoids; Migraine; Systemic lupus erythematosus (CMS/HCC) (HCC); Other depressive disorder; Essential hypertension Social History Tobacco Use Types Packs/Day Years Used Date Smoking Tobacco: Never Assessed Comments Unknown Sex and Gender Information Value Date Recorded Sex Assigned at Not on file Legal Sex Female 12:11 AM NATURAL RESOURCES PROFESSOR Gender Identity Not on file Sexual Orientation [...] as of this encounter Visit Diagnoses Diagnosis Internal hemorrhoids Internal hemorrhoids without mention of complication Migraine Migraine, unspecified, without mention of intractable migraine without mention of status migrainosus Systemic lupus erythematosus (CMS/HCC) (HCC) Systemic lupus erythematosus Other depressive disorder Essential hypertension Unspecified essential hypertension documented in this encounter Care Teams Manager Oracle Relationship Specialty Start Date End Date Santiago Bueno MD [address] [address] PCP - General 09/03/06 10/14/16 documented as of this encounter
--- OUTSIDE RECORDS SUMMARY | 2024-08-29 10:29 | XMS_ITS | Encounter Summary ---
Author Organization [facility] Care Team Providers Care Meat Loiner Name Role Phone Santiago Bueno MD Primary Care Provider [phone] Encounter Details Date Type Department Care Team (Latest Contact Info) Description 12/19/2011 10:57 AM CDT Hospital Encounter [facility] Rebel Riley MD [address] [place] [address] Benign essential hypertension; Right bundle branch block Social History Tobacco Use Types Packs/Day Years Used Date Smoking Tobacco: Never Assessed Comments Unknown Sex and Gender Information Value Date Recorded Sex Assigned at Not on file Legal Sex Female 12:11 AM GLASS SETTER Gender Identity Not on file Sexual Orientation [...] as of this encounter Visit Diagnoses Diagnosis Benign essential hypertension Essential hypertension, benign Right bundle branch block documented in this encounter Care Teams Meat Loiner Relationship Specialty Start Date End Date Santiago Bueno MD [address] [facility] [address] [place] [address] PCP - General 09/03/06 10/14/16 documented as of this encounter
--- OUTSIDE RECORDS SUMMARY | 2024-08-29 10:29 | XMS_ITS | Encounter Summary ---
Author Organization [facility] Facility Care Team Providers Care Senior Ui Developer Name Role Phone Santiago Bueno MD Primary Care Provider [phone] Encounter Details Date Type Department Care Team (Late st Contact Info) Description 09/06/2011 12:41 PM AIR SAW OPERATOR Hospital Encounter [place] [address] [address] Systemic lupus erythematosus (CMS/HCC) (HCC); Nonspecific abnormal results of pulmonary system function study Social History Tobacco Use Types Packs/Day Years Used Date Smoking Tobacco: Never Assessed Comments Unknown Sex and Gender Information Value Date Recorded Sex Assigned at Not on file Legal Sex Female 12:11 AM AIR SAW OPERATOR Gender Identity Not on file [...] this encounter Visit Diagnoses Diagnosis Systemic lupus erythematosus (CMS/HCC) (HCC) Systemic lupus erythematosus Nonspecific abnormal results of pulmonary system function study documented in this encounter Care Teams Senior Ui Developer Relationship Specialty Start Date End Date Santiago Bueno MD [address] [facility] [address] [place] [address] PCP - General 09/03/06 10/14/16 documented as of this encounter
--- OUTSIDE RECORDS SUMMARY | 2024-08-29 10:29 | XMS_ITS | Encounter Summary ---
Author Organization [facility] Facility Care Team Providers Care Car Repairer Helper Name Role Phone Santiago Bueno MD Primary Care Provider [phone] Encounter Details Date Type Department Care Team (Latest Contact Info) Description 06/05/2011 10:15 AM CDT Hospital Encounter [facility] Rebel Riley MD [address] [place] [address] Disorder of bone and cartilage Social History Tobacco Use Types Packs/Day Years Used Date Smoking Tobacco: Never Assessed Comments Unknown Sex and Gender Information Value Date Recorded Sex Assigned at Not on file Legal Sex Female 12:11 AM CLARIFIER Gender Identity Not on file Sexual Orientation [...] as of this encounter Visit Diagnoses Diagnosis 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 [address] [place] [address] PCP - General 09/03/06 10/14/16 documented as of this encounter
--- OUTSIDE RECORDS SUMMARY | 2024-08-29 10:29 | XMS_ITS | Encounter Summary ---
Author Organization [facility] Facility Care Team Providers Care Sql Tech Name Role Phone Santiago Bueno MD Primary Care Provider [phone] Encounter Details Date Type Department Care Team (Latest Contact Info) Description 12/12/2011 9:47 AM CDT Hospital Encounter [facility] Tatum Benito, DIRECTOR SALES TRAINING [address] [address] [place] [address] Benign essential hypertension Social History Tobacco Use Types Packs/Day Years Used Date Smoking Tobacco: Never Assessed Comments Unknown Sex and Gender Information Value Date Recorded Sex Assigned at Not on file Legal Sex Female 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
--- OUTSIDE RECORDS SUMMARY | 2024-08-29 10:29 | XMS_ITS | Encounter Summary ---
Author Organization [facility] Facility Care Team Providers Care Set Up Mechanic Heading Machines Name Role Phone Santiago Bueno MD Primary Care Provider [phone] Encounter Details Date Type Department Care Team (Latest Contact Info) Description 05/09/2012 11:23 AM T Hospital Encounter [facility] Anton Vigil MD [address] [id number] [place] [address] Degeneration of lumbar or lumbosacral intervertebral disc Social History Tobacco Use Types Packs/Day Years Used Date Smoking Tobacco: Never Assessed Comments Unknown Sex and Gender Information Value Date Recorded Sex Assigned at Not on file Legal Sex Female 12:11 AM IT CONSULTANT Gender Identity Not on file Sexual [...] as of this encounter Visit Diagnoses Diagnosis Degeneration of lumbar or lumbosacral intervertebral disc documented in this encounter Care Teams Set Up Mechanic Heading Machines Relationship Specialty Start Date End Date Santiago Bueno MD [address] [facility] [address] [place] [address] PCP - General 09/03/06 10/14/16 documented as of this encounter
--- OUTSIDE RECORDS SUMMARY | 2024-08-29 10:29 | XMS_ITS | Encounter Summary ---
Author Organization [facility] Care Team Providers Care Gasoline Finisher Name Role Phone Santiago Bueno MD Primary Care Provider [phone] Encounter Details Date Type Department Care Team (Latest Contact Info) Description 12/12/2011 9:24 AM CDT Hospital Encounter [facility] Tatum Benito, JAVA J2EE APPLICATION DEVELOPER [address] [address] [place] [address] Benign essential hypertension Social History Tobacco Use Types Packs/Day Years Used Date Smoking Tobacco: Never Assessed Comments Unknown Sex and Gender Information Value Date Recorded Sex Assigned at Not on file Legal Sex Female 12:11 AM DRUG AND ALCOHOL COUNSELLOR Gender Identity Not on file Sexual Orientation [...] benign documented in this encounter Care Teams Gasoline Finisher Relationship Specialty Start Date End Date Santiago Bueno MD [address] [facility] [address] [place] [address] PCP - General 09/03/06 10/14/16 documented as of this encounter
--- OUTSIDE RECORDS SUMMARY | 2024-08-29 10:29 | XMS_ITS | Encounter Summary ---
Author Organization [facility] Facility Care Team Providers Care Public Space Attendant Name Role Phone Santiago Bueno MD Primary Care Provider [phone] Encounter Details Date Type Department Care Team (Late st Contact Info) Description 04/22/2012 10:19 AM CDT Hospital Encounter [place] [address] [facility] [address] [place] [address] Systemic lupus erythematosus (CMS/HCC) (HCC); Localized osteoarthrosis, lower leg; Loose body in knee Social History Tobacco Use Types Packs/Day Years Used Date Smoking Tobacco: Never Assessed Comments Unknown Sex and Gender Information Value Date Recorded Sex Assigned at Not on file Legal Sex Female 12:11 AM 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
--- OUTSIDE RECORDS SUMMARY | 2024-08-29 10:30 | XMS_ITS | Encounter Summary ---
Author Organization [facility] Facility Care Team Providers Care Manager Administrative Name Role Phone Santiago Bueno MD Primary Care Provider [phone] Encounter Details Date Type Department Care Team (Late st Contact Info) Description 04/28/2007 10:56 AM CDT - 04/28/2007 3:40 PM T Hospital En[place] [address] [place] [address] Social History Tobacco Use Types Packs/Day Years Used Date Smoking Tobacco: Never Assessed Comments Unknown Sex and Gender Information Value Date Recorded Sex Assigned at Not on file Legal Sex Female 12:11 AM DIMENSIONAL INSPECTOR Gender Identity Not on file Sexual [...] filedocumented in this encounter Care Teams Manager Administrative Relationship Specialty Start Date End Date Santiago Bueno MD [address] [facility] [address] [place] [address] PCP - General 09/03/06 10/14/16 documented as of this encounter
--- OUTSIDE RECORDS SUMMARY | 2024-08-29 10:30 | XMS_ITS | Encounter Summary ---
Author Organization [facility] Facility Care Team Providers Care Family Service Aide Name Role Phone Santiago Bueno MD Primary Care Provider [phone] Encounter Details Date Type Department Care Team (Late st Contact Info) Description 03/03/2008 7:37 AM CDT Hospital Encounter [facility] Rbeel Riley MD [address] [facility] [address] [place] [address] Social History Tobacco Use Types Packs/Day Years Used Date Smoking Tobacco: Never Assessed Comments Unknown Sex and Gender Information Value Date Recorded Sex Assigned at Not on file Legal Sex Female 12:11 AM RECOVERY ASSISTANT Gender Identity Not on file Sexual [...] on filedocumented in this encounter Care Teams Family Service Aide Relationship Specialty Start Date End Date Santiago Bueno MD [address] [facility] [address] [place] [address] PCP - General 09/03/06 10/14/16 documented as of this encounter
--- OUTSIDE RECORDS SUMMARY | 2024-08-29 10:30 | XMS_ITS | Encounter Summary ---
Author Organization [facility] Facility Care Team Providers Care Senior Cost Analyst Name Role Phone Santiago Bueno MD Primary Care Provider [phone] Encounter Details Date Type Department Care Team (Late st Contact Info) Description 10/17/2006 10:11 AM BIOLOGY LABORATORY ASSISTANT [facility] Rebel Riley MD [address] [place] [address] Social History Tobacco Use Types Packs/Day Years Used Date Smoking Tobacco: Never Assessed Comments Unknown Sex and Gender Information Value Date Recorded Sex Assigned at Not on file Legal Sex Female 12:11 AM BIOLOGY LABORATORY ASSISTANT Gender Identity Not on file Sexual Orientation Not on file documented as of this encounter Medications at Time of Discharge montelukast (SINGULAIR) 10 mg tablet TAKE 1 [...] filedocumented in this encounter Care Teams Senior Cost Analyst Relationship Specialty Start Date End Date Santiago Bueno MD [address] [facility] [address] [place] [address] PCP - General 09/03/06 10/14/16 documented as of this encounter
--- OUTSIDE RECORDS SUMMARY | 2024-08-29 10:30 | XMS_ITS | Encounter Summary ---
Author Organization [facility] Facility Care Team Providers Care Public Service Director Name Role Phone Santiago Bueno MD Primary Care Provider Encounter Details Date Type Department Care Team (Late st Contact Info) Description 10/30/2006 2:34 PM SHUTTLE CAR OPERATOR Hospital Encounter [place] [address] [address] Social History Tobacco Use Types Packs/Day Years Used Date Smoking Tobacco: Never Assessed Comments Unknown Sex and Gender Information Value Date Recorded Sex Assigned at Not on file Legal Sex Female 12:11 AM SHUTTLE CAR OPERATOR Gender Identity Not on file Sexual [...] filedocumented in this encounter Care Teams Public Service Director Relationship Specialty Start Date End Date Santiago Bueno MD [address] [facility] [address] [place] [address] PCP - General 09/03/06 10/14/16 documented as of this encounter
--- OUTSIDE RECORDS SUMMARY | 2024-08-29 10:30 | XMS_ITS | Encounter Summary ---
Author Organization [facility] Facility Care Team Providers Care Director College Name Role Phone Santiago Bueno MD Primary Care Provider [phone] Encounter Details Date Type Department Care Team (Late st Contact Info) Description 04/21/2007 8:28 AM CDT - 04/21/2007 3:15 PM T Hospital Encounter [place] [address] [place] [address] Social History Tobacco Use Types Packs/Day Years Used Date Smoking Tobacco: Never Assessed Comments Unknown Sex and Gender Information Value Date Recorded Sex Assigned at Not on file Legal Sex Female 12:11 AM CANDY FEEDER Gender Identity Not on file Sexual [...] on filedocumented in this encounter Care Teams Director College Relationship Specialty Start Date End Date Santiago Bueno MD [address] [facility] [address] [place] [address] PCP - General 09/03/06 10/14/16 documented as of this encounter
--- OUTSIDE RECORDS SUMMARY | 2024-08-29 10:30 | XMS_ITS | Encounter Summary ---
Author Organization [facility] Facility Care Team Providers Care Rumper Name Role Phone Santiago Bueno MD Primary Care Provider [phone] Encounter Details Date Type Department Care Team (Late st Contact Info) Description 07/11/2007 10:10 AM [facility] Hospital Encounter [facility] Rebel Riley MD [address] [place] [address] Social History Tobacco Use Types Packs/Day Years Used Date Smoking Tobacco: Never Assessed Comments Unknown Sex and Gender Information Value Date Recorded Sex Assigned at Not on file Legal Sex Female 12:11 AM TESTER WASTE DISPOSAL LEAKAGE Gender Identity Not on file Sexual Orientation [...] on filedocumented in this encounter Care Teams Rumper Relationship Specialty Start Date End Date Santiago Bueno MD [address] [facility] [address] [place] [address] PCP - General 09/03/06 10/14/16 documented as of this encounter
--- OUTSIDE RECORDS SUMMARY | 2024-08-29 10:30 | XMS_ITS | Encounter Summary ---
Author Organization [facility] Facility Care Team Providers Care Supervisor Sewing Room Name Role Phone Santiago Bueno MD Primary Care Provider [phone] Encounter Details Date Type Department Care Team (Late st Contact Info) Description 12/15/2007 10:52 AM CDT Hospital Encounter [facility] Rebel Riley MD [address] [facility] [address] [place] [address] Social History Tobacco Use Types Packs/Day Years Used Date Smoking Tobacco: Never Assessed Comments Unknown Sex and Gender Information Value Date Recorded Sex Assigned at Not on file Legal Sex Female 12:11 AM WHEEL BUFFER Gender Identity Not on file Sexual [...] filedocumented in this encounter Care Teams Supervisor Sewing Room Relationship Specialty Start Date End Date Santiago Bueno MD [address] [facility] [address] [place] [address] PCP - General 09/03/06 10/14/16 documented as of this encounter
--- OUTSIDE RECORDS SUMMARY | 2024-08-29 10:30 | XMS_ITS | Encounter Summary ---
Author Organization [facility] Facility Care Team Providers Care Machine Straw Hat Presser Name Role Phone Santiago Bueno MD Primary Care Provider [phone] Encounter Details Date Type Department Care Team (Late st Contact Info) Description 11/28/2010 10:35 AM CDT Hospital Encounter [facility] [place] [id number] [address] Adverse effect of drug, medicinal and biological substance; Drug or medicinal substance causing adverse effect in therapeutic use; Unspecified place of occurrence Social History Tobacco Use Types Packs/Day Years Used Date Smoking Tobacco: Never Assessed Comments Unknown Sex and Gender Information Value Date Recorded Sex Assigned at Not on file 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
--- OUTSIDE RECORDS SUMMARY | 2024-08-29 10:30 | XMS_ITS | Encounter Summary ---
Author Organization [facility] Facility Care Team Providers Care Machine Farmworker Name Role Phone Santiago Bueno MD Primary Care Provider [phone] Encounter Details Date Type Department Care Team (Late st Contact Info) Description 04/15/2007 8:27 AM CDT Hospital Encounter [place] [address] [place] [id number] Social History Tobacco Use Types Packs/Day Years Used Date Smoking Tobacco: Never Assessed Comments Unknown Sex and Gender Information Value Date Recorded Sex Assigned at Not on file 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
--- OUTSIDE RECORDS SUMMARY | 2024-08-29 10:30 | XMS_ITS | Encounter Summary ---
Author Organization [facility] Facility Care Team Providers Care Roll Filler Name Role Phone Santiago Bueno MD Primary Care Provider [phone] Encounter Details Date Type Department Care Team (Late st Contact Info) Description 03/29/2010 10:04 AM CDT Hospital Encounter [place] [address] [facility] [address] [place] [address] Shortness of breath; Systemic lupus erythematosus (CMS/HCC) (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
--- OUTSIDE RECORDS SUMMARY | 2024-08-29 10:30 | XMS_ITS | Encounter Summary ---
Author Organization [facility] Facility Care Team Providers Care Other Wood Processing Machine Operator Name Role Phone Santiago Bueno MD Primary Care Provider [phone] Encounter Details Date Type Department Care Team (Latest Contact Info) Description 01/20/2009 10:16 AM CDT Hospital Encounter [facility] Rebel Riley MD [address] [place] [address] Screening for osteoporosis; Asymptomatic postmenopausal status; Disorder of bone and cartilage Social History Tobacco Use Types Packs/Day Years Used Date Smoking Tobacco: Never Assessed Comments Unknown Sex and Gender Information Value Date Recorded Sex Assigned at Not on file 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
== END 2024-08-22 08:44 | disposition home or self-care (01) ==
PROVIDERS: PCP Student in an Organized Health Care Education/Training Program; Referring Provider Student in an Organized Health Care Education/Training Program; Visit Provider Nurse Practitioner
DX: M32.9 Systemic lupus erythematosus, unspecified (principal); Z79.899 Other long term (current) drug therapy
CPT/HCPCS: 36415; 80053; 81003; 85025; 85652; 86140; 86160

== ENCOUNTER 2024-08-24 11:00 | Outpatient (CLI) | payer MEDICARE, SELFPAY | END 2024-08-24 11:01 | disposition home or self-care (01) | PROVIDERS: PCP Student in an Organized Health Care Education/Training Program; Visit Provider Nurse Practitioner | DX: M32.9 Systemic lupus erythematosus, unspecified (principal) | CPT/HCPCS: 36415; 86225 ==

== ENCOUNTER 2024-10-06 15:29 | Outpatient (CLI) | payer MEDICARE, SELFPAY ==
--- NOTE | ~2024-10-06 | XR_ITS ---
EXAMINATION: XR chest 2V 10/06/2024 15:46 INDICATION: Acute bacterial bronchitis PROCEDURE: 2 view chest COMPARISON: Comparison to multiple prior studies sequentially, with oldest reviewed study dated 03/24. FINDINGS: The lungs are clear. The cardiomediastinal silhouette is within normal limits. There are no pleural effusions. There is no pneumothorax suspected. IMPRESSION: 1: NO ACUTE CARDIOPULMONARY DISEASE. Reviewed, dictated and finalized at location B. AL DIRECTOR
== END 2024-10-06 15:30 | disposition home or self-care (01) ==
LOC: MICIMG 15:30
PROVIDERS: PCP Student in an Organized Health Care Education/Training Program; Visit Provider Student in an Organized Health Care Education/Training Program
DX: J45.41 Moderate persistent asthma with (acute) exacerbation (principal); J20.8 Acute bronchitis due to other specified organisms; B96.89 Other specified bacterial agents as the cause of diseases classified elsewhere
CPT/HCPCS: 71046

== ENCOUNTER 2024-11-26 08:48 | Outpatient (CLI) | payer MEDICARE, SELFPAY ==
--- OUTSIDE RECORDS SUMMARY | 2024-11-26 09:15 | XMS_ITS | Clinical Summary ---
Author Organization [facility] Address [address] [place] [address] Care Team Providers Care Charger Name Role Phone Santiago Bueno MD Primary Care Provider [phone] Source Comments [facility] Affiliates and Associated Physician Practices is amultiple site organization consisting of ambulatory clinics and hospital sitesin [place], [place], [place] and [place]. This disclosure is being madepursuant to the Care Everywhere program and may not contain all information available regarding this patient. Last updated 18.[facility] [email or web address] Social History Tobacco Use Types Packs/Day Years [...] 10/24/1966 DTAP/TDAP/TD VACCINES (1 - Tdap) 1967 PNEUMOCOCCAL VACCINE 50+ (1 of 1 - PCV) 1998 ZOSTER VACCINE (1 of 2) 1998 Respiratory Syncytial Virus (RSV) Vaccine Pt: or over 60 yrs (1 - 1-dose 75+ series) 2023 COVID-19 VACCINE (2023-2 5 season) 2024 INFLUENZA VACCINE (#1) 2024 DEPRESSION SCREENING 09/02/2024 HEPATITIS B VACCINE Aged Out No longe r eligible based on patient's age to complete this topic HIB VACCINE Aged Out No longer eligi ble based on patient's age to complete this topic HPV VACCINE Aged Out No longer eligi ble based on patient's age to complete this topic MENINGOCOCCAL (Group B) VACC INE SHARED DECISION-MAKING Aged Out No longer eligibl e based on patient's age to complete this topic MENINGOCOCCAL GROUPS A/C/Y/W VACCINE Aged Out No longer eligible b ased on patient's age to complete this topic Care Teams Charger Relationship Specialty Start Date End Date Santiago Bueno MD PCP - General Internal Medicine 08/09/14
[2024-11-26 09:58] LABS: Add Urine Microscopic? NO; Appearance Urine Clear (Clear); Bilirubin Urine Negative (Negative); Blood Urine Negative (Negative); Color Urine Yellow (Yellow); Glucose Urine UA 3+ mg/dL (Negative); Ketones Urine Negative (Negative); Leukocyte Esterase Ur Negative LEU/UL (Negative); Nitrate Urine Negative (Negative); Protein Urine Negative (Negative); Specific Grav Ur 1.024 (1.001-1.035); Urobilinogen Urine 0.2 mg/dL (<2.0)
[2024-11-26 10:05] LABS: Basophils Absolute Auto 0.1 K/mm3 (0.0-0.1); Basophils Percent Auto 1.3 % (0.2-1.2); Eosinophils Absolute Auto 0.2 K/mm3 (0-0.3); Eosinophils Percent Auto 4.3 % (0-4.4); Hematocrit 45.5 % (37.0-47.0); Hemoglobin 14.3 g/dL (12.0-15.0); Lymphocytes Absolute Auto 1.41 K/mm3 (0.9-3.2); Lymphocytes Percent Auto 37.7 % (18.3-44.2); Mean Corpuscular HGB Conc 31.4 g/dl (32-36); Mean Corpuscular Volume 89.2 fl (80-100); Mean Platelet Volume 10.1 fl (7.4-10.4); Monocytes Absolute Auto 0.5 K/mm3 (0.1-0.6); Monocytes Percent Auto 13.1 % (2.6-8.5); Neutrophils Absolute Auto 1.6 K/mm3 (1.3-6.7); Neutrophils Percent Auto 43.6 % (45.5-73.1); Platelet Count Result 197 k/mm3 (150-375); Red Cell Distribution Width 17.2 % (11.5-14.5); White Blood Count 3.7 K/mm3 (4.5-10.0)
[2024-11-26 10:25] LABS: Alanine Aminotransferase 29 U/L (6-35); Albumin Level 4.2 g/dL (3.5-5.1); Alkaline Phosphatase 83 U/L (38-126); Anion Gap 8 mmol/L (4-12); Aspartate Amino Transferase 38 U/L (14-36); Bilirubin,Total 0.8 mg/dL (0.2-1.3); Blood Urea Nitrogen 25 mg/dL (7-17); CRP < 0.5 mg/dL (<1.0); Carbon Dioxide 30 mmol/L (22-30); Chloride 103 mmol/L (98-107); Estimated Glomerular Filt Rate > 60; Glucose 94 mg/dL (65-110); Potassium 3.9 mmol/L (3.4-5.0); Sodium 141 mmol/L (137-145)
[2024-11-26 10:34] LABS: Complement C3 91 mg/dL (88-165)
[2024-11-26 10:42] LABS: Erythrocyte Sedimentation Rate 6 mm/hr (0-20)
== END 2024-11-26 08:49 | disposition home or self-care (01) ==
PROVIDERS: PCP Student in an Organized Health Care Education/Training Program; Visit Provider Nurse Practitioner
DX: M32.9 Systemic lupus erythematosus, unspecified (principal); Z79.899 Other long term (current) drug therapy
CPT/HCPCS: 36415; 80053; 81003; 85025; 85652; 86140; 86160; 86225

== ENCOUNTER 2025-04-01 08:54 | Outpatient (CLI) | payer MEDICARE, SELFPAY ==
--- OUTSIDE RECORDS SUMMARY | 2025-04-01 09:04 | XMS_ITS | Clinical Summary ---
Author Organization [facility] Address [address] [address] Care Team Providers Care Absence Management Consultant Name Role Phone Gladis Song MD Unavailable No, Physician Primary Care Provider [phone] Allergies Active Allergy Reactions Criticality Noted Date Comments Latex Rash Medium Levofloxacin Headache,Nausea only Low Nitrofurantoin Headache Low Sulfa (Sulfonamide Antibiotics) Swelling Medium 07/04 Medications cholecalciferol (VITAMIN D3) 2,000 unit tablet take 1 by Oral route every day 0 0 5 Active folic acid (FOLVITE) 1 mg tablet Take 1 tablet (1 mg total) by mouth daily. Take one tab daily 90 tablet 8 Active calcium carbonate (OS-LEELA) 1,500 mg (600 mg [...] Active Additional Information Patient not taking.Reported on 01/21/2025 triamcinolone (KENALOG) 0.1 % cream Apply topically 2 (two) times a day APPLY TO AFFECTED AREA 4 Active brimonidine (ALPHAGAN) 0.2 % ophthalmic solution INSTILL 1 DROP INTO BOTH EYES 3 TIMES A DAY Active pregabalin (LYRICA) 75 mg capsuleIndicatio ns:neuropathic pain Take 1 capsule (75 mg total) by mouth 2 (two) times a day 60 capsule 5 4 Active Additional Information Patient not taking.Reported on 01/21/2025 apixaban (Eliquis) 5 mg tablet TAKE 1 TABLET BY MOUTH TWICE A DAY 180 tablet 3 4 Active pregabalin (LYRICA) 50 [...] doses total. 25 tablet 3 4 Active atorvastatin (LIPITOR) 80 mg tablet Take 1 tablet (80 mg total) by mouth daily 30 tablet 11 5 Active furosemide (LASIX) 20 mg tablet Take 1 tablet (20 mg total) by mouth daily 90 tablet 3 5 Active empagliflozin (Jardiance) 10 mg tablet TAKE 1 TABLET BY MOUTH EVERY DAY 90 tablet 2 5 Active clobetasoL (TEMOVATE) 0.05 % ointment Apply topically 5 Active Active Problems Problem Noted Date Diagnosed Date Mild cognitive impairment 10/05/2022 Benign essential tremor 02/09/2022 Forgetfulness 02/09/2022 Trigger finger of right thumb 03/03/2020 Overview (03/03/2020): Added automatically from request for surgery [id number] Tachycardia 09/03/2019 Dyspepsia 09/03/2019 Annual physical exam [...] w ith chronic systolic congestive heart failure 06/01/2019 Assessment & Plan (06/02/2019 9:43 AM CDT): On appropriate medical therapy. Continue medical therapy. 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 Able to help care for herself. Neuropathy 12/26/2018 Assessment & Plan (06/02/2019 9:43 AM CDT): Stable at this time no change in condition. CAD (coronary artery disease) 11/21/2018 Overview (11/21/2018): Mild coronary artery disease 20-30% narrowing in the circumflex and right coronar artery from 05/2018. Assessment & Plan (01/12/2025 1:28 PM CDT): Stop Imdur as do not see a strong clinical reason for her to remain on this Assessment & Plan (07/14/2024 11:36 AM CLOCK REPAIR TECHNICIAN): Moderate coronary disease with recurrent exertional dyspnea and chest pain symptoms. We will recheck exercise stress echo Assessment & Plan (12/24/2022 10:08 AM CDT): CAD with non obstructed CAD on [facility] in 2018 now with stable angina. [...] PM CDT): She had minimal CAD on [facility] in 2018. She continues on atorvastatin [...] time. Heart failure with preserved ejection fraction 0 11/21/2018 Overview (11/21/2018): LVEDP was 22 from cardiac catheterization in May of 2018 Assessment & Plan (01/12/2025 1:27 PM CDT): Doing well on Jardiance. Check BNP. Volume status seems well controlled based on physical exam, stable dyspnea Assessment & Plan (12/24/2022 10:07 AM CDT): [...] stopped. Assessment & Plan (07/11/2018 5:29 PM CLOCK REPAIR TECHNICIAN): Seems biliary by history. Will check RUQ US. If still negative, will get HIDA with CCK. Paroxysmal atrial fibrillation 05/21/2018 Overview (05/23/2018): Although this is not well documented, she does carry this diagnosis in her chart. 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 We will continue Eliquis. She has had no more strokes or taste and she has been on Eliquis. Assessment & Plan (01/12/2025 1:28 PM CDT): Not documented however diagnosis carried in chart as there has been concern atrial fibrillation contributed to 1 of her prior strokes. Will remain on for now. Could consider further long-term monitoring in future to decide necessity of continuing anticoagulation Assessment & Plan (12/24/2022 9:57 AM CDT): [...] BID Assessment & Plan (07/11/2018 5:29 PM CLOCK REPAIR TECHNICIAN): Although this is not well documented, she [...] 04/29/2017 Assessment & Plan (09/03/2019 11:50 AM CLOCK REPAIR TECHNICIAN): BMI Follow-up includes: nutrition counseling, exercise counseling and education provided. Assessment & Plan (06/30/2019 10:11 AM CDT): BMI Follow-up includes: nutrition counseling, exercise counseling and education provided. Assessment & Plan (06/02/2019 9:41 AM CDT): Body mass index is 30.19 kg/m . BMI Follow-up includes: nutrition counseling, exercise counseling and education provided. Assessment & Plan (03/31/2019 11:48 AM CDT): Body mass index is 30.1 kg/m .. BMI Follow-up includes: nutrition counseling, exercise counseling [...] provided. Assessment & Plan (10/21/2017 9:29 AM CLOCK REPAIR TECHNICIAN): Body mass index is 32.32 kg/m . BMI Follow-up includes: nutrition counseling, exercise counseling and education provided. Assessment & Plan (09/23/2017 2:52 PM CLOCK REPAIR TECHNICIAN): Body mass index is 31.91 kg/m . BMI Follow-up includes: nutrition counseling, exercise counseling and education provided. Assessment & Plan (08/16/2017 11:22 AM CLOCK REPAIR TECHNICIAN): BMI Follow-up includes: nutrition counseling, exercise counseling and education provided. Assessment & Plan (04/29/2017 8:33 PM CDT): Body mass index is 31.71 kg/m . BMI Follow-up includes: nutrition counseling, exercise counseling [...] recommended Assessment & Plan (07/14/2024 11:36 AM CLOCK REPAIR TECHNICIAN): Known PFO. Already on anticoagulation due to possible history of atrial fibrillation. No clear documented history of AFib however there was enough of a clinical concern that this was started by her prior fur machine operator. She was tolerating this okay without any [...] Maintain adequate clear fluid intake. May use tlll-muf-camewye acetaminophen or ibuprofen. Medication instructions were provided [...] orders Assessment & Plan (09/23/2017 2:52 PM CLOCK REPAIR TECHNICIAN): Using her singulair and inhaler as prescribed. Late, effect, cerebrovascular disease 06/03/2015 Assessment & Plan (05/13/2018 10:11 AM CDT): Minimal residual. Borderline diabetes mellitus 06/03/2015 Assessment & Plan (06/02/2019 9:42 AM CDT): Eating healthy. Exercising when she can. Labs pending Assessment & Plan (05/13/2018 10:12 AM CDT): Get A1c with labs again today. Weight loss recommended. Systemic lupus erythematosus 01/16/2014 Overview (12/05/2016): SLE Assessment & Plan (06/30/2019 [...] Song. Assessment & Plan (10/22/2017 11:13 AM CLOCK REPAIR TECHNICIAN): Patient disease activity is moderate. Her LFTs are now normal so will try increasing MTX. Patient is to continue HCQ. She is to increase the MtX to 4 tablets/week x 1 week, then increase to 6 tablets/week thereafter. Will check routine labs at the next OV. She had an eye exam recently. Assessment & Plan (09/09/2017 9:55 AM CLOCK REPAIR TECHNICIAN): MTX started at the last Ov. She [...] MTX. Assessment & Plan (07/29/2017 12:51 PM CLOCK REPAIR TECHNICIAN): Patient disease activity is moderate. Patient is [...] GI. Assessment & Plan (07/11/2018 5:28 PM CLOCK REPAIR TECHNICIAN): Has Hx reflux but on treatment and her symptoms don't seem consistent with this. Continue current medication for now. Assessment & Plan (05/13/2018 10:12 AM CDT): Not certain this diagnosis is correct or whether it is responsible for any symptoms given her normal EGD and lack of response to PPI therapy. Seeing fur machine operator next week to consider alternative explanations for heartburn. Assessment & Plan (10/22/2017 11:14 AM CLOCK REPAIR TECHNICIAN): Recently started on protonix. Assessment & Plan (10/21/2017 9:28 AM CLOCK REPAIR TECHNICIAN): Change the omeprazole to pantoprazole 40 mg [...] GI Assessment & Plan (09/23/2017 2:51 PM CLOCK REPAIR TECHNICIAN): Increase omeprazole to 40 mg daily. sit [...] 1:54 PM CDT): Continue omeprazole. GERD Instructions Do not lie flat for 1 hour after eating. Elevate the head of your bed a few inches, creating a slight incline. Try to sleep on your back or left side only. Avoid acidic foods and common triggers: caffeine, nicotine (tobacco), fried or fatty foods, mint, chocolate. Take prescribed medications regularly. Missing doses can cause a surge in stomach acid production and a flare-up of symptoms. Follow up with me if you are [...] medication, Maintain adequate fluid intake. May use [id number] acetaminophen or ibuprofen. Medication instructions were provided [...] 05/13/2018 Assessment & Plan (10/21/2017 9:29 AM CLOCK REPAIR TECHNICIAN): Resolved. Lungs are clear. Assessment & Plan (09/23/2017 2:52 PM CLOCK REPAIR TECHNICIAN): Order CXR today May need steroids, antibiotic if pneumonia. Assessment & Plan (08/16/2017 12:36 PM CLOCK REPAIR TECHNICIAN): Patient is still continuing to wheeze. Ventolin 2 puffs t.i.d.. Explained to patient that she should contact the office if she does not feel better. Hypokalemia 08/16/2017 05/13/2018 Assessment & Plan (08/16/2017 12:36 PM CLOCK REPAIR TECHNICIAN): Patient was given potassium at the urgent care. BMP today. 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 She is already working with a blood bank custodian on this (but they reportedly don't know what's causing it either). We'll see if anything comes up in lab work. TIA (transient ischemic attack) 04/29/2017 05/13/2018 Assessment & Plan (04/29/2017 8:32 PM CDT): Workup completed in [facility] in [place], [place] CT negative except old infarct from [...] 09/2017. Assessment & Plan (10/22/2017 11:13 AM CLOCK REPAIR TECHNICIAN): Will continue to monitor the patient with routine labs. Assessment & Plan (09/09/2017 7:58 AM CLOCK REPAIR TECHNICIAN): Will continue to monitor the patient with routine labs. Assessment & Plan (07/29/2017 12:51 PM CLOCK REPAIR TECHNICIAN): Will continue to monitor the patient with [...] side as late effect following cerebrovascular disease 06/05/20152017 Hypertension 05/04/2014 06/01/2019 Overview (12/07/2016): Hypertension Assessment [...] kg (164 lb) SpO2 97% BMI 32.03 kg/m Controlled. Continue current medication for now. Assessment [...] Encounters Date Type Department Care Team Description 01/21/2025 12:00 PM CDT Office Visit [facility] Neuro Muscle [address] [place] [address] [place] [address] Julianna Mirza MD Neuropathy; Sensory motor neuropathy 01/12/2025 1:10 PM CDT Lab [facility] [address] [place] [address] Chronic heart failure with preserved ejection fraction (HCC) 01/12/2025 11:30 AM CDT Office Visit [facility] Cardiology [address] [place] [address] Medical Office [address] [place] [address] Son Poole MD Chronic heart failure with preserved ejection fraction (HCC) (Primary Dx); Coronary artery disease involving [place] heart without angina pectoris, unspecified vessel or lesion type; Paroxysmal atrial fibrillation (HCC) 01/12/2025 Results Follow-Up [facility] Cardiology [address] [place] [address] Medical [address] [place] [address] Son Poole MD Basic metabolic panel, Pro B-type natriuretic peptide, eGFR from Last 3 Months Immunizations Immunization Administration Dates Next Due Influenza, Quadrivalent, Spl [...] (gastroesophageal reflux disease) CHF (congestive heart failure) (HCC) CAD (coronary artery disease) Family History [...] on file Legal Sex Female 12:11 AM CLOCK REPAIR TECHNICIAN Gender Identity Not on file Sexual Orientation Not on file Occupation Industry Job Start Date Job End Date Retired Not on file Not on file Not on file Obstetrics History Last Filed Vital Signs Vital Sign Reading Time Taken Comments Blood Pressure 108/70 01/21/2025 11:35 AM CDT Pulse 66 01/21/2025 11:35 AM CDT Temperature 36.8 C (98.2 F) 11/18/2024 2:22 PM CDT Respiratory Rate 18 03/28/2020 6:35 AM CDT Oxygen Saturation 95% 01/12/2025 12:14 PM CDT Inhaled Oxygen Concentration - - Weight 63 kg (139 lb) 01/21/2025 11:35 AM CDT Height 154.9 cm (5' 1) 01/21/2025 11:35 AM CDT Body Mass Index 26.26 01/21/2025 11:35 AM CDT Plan of Treatment Health Maintenance Due Date Last Done Comments DTaP/Tdap/Td Vaccine (1 - Tdap) 1961 Hepatitis B Screening 1966 Well Visit 65+ 06/02/2020 06/02/2019, 05/03, 05/22/2017 Depression Screening 09/03/2020 09/03/2019, 06/30/2019, 06/02/2019, Additional history exists Fall Risk Assessment 03/28/2021 03/28/2020, 09/03/2019, 06/30/2019, Additional history exists Osteoporosis Screening-Bone Density Scan 05/15/2023 05/15/2021, 06/09/2018, 11/30/2014 Covid-19 Vaccine (4 - 2023-2 5 season) 2024 08/07/2021, 11/18/2020, 10/21/2020 Influenza Vaccine (#1) 2025 , 05/30/2020, 06/02/2019, Additional history exists Colon Cancer Screening-CT Colonography Discontinued 02/06/2011 Colon Cancer Screening-Colonoscopy Discontinued 02/06/2011 Colon Cancer Screening-DNA Stool Discontinued 02/07/20 11 Colon Cancer Screening-FIT Discontinued 02/06/2011 Colon Cancer Screening-FOBT Discontinued 02/06/2011 Colon Cancer Screening-Sigmoidoscopy Discontinued 02/06/2011 Colorectal Cancer Screening Discontinued Hepatitis C Screening Completed 05/22/2017 Pneumococcal vaccine 65+ Completed 017, 05/28/2014, 05/28/2014 Breast Cancer Screening-Mammogram Discontinued 03/31/2019, 02/20/2018, 02/11/2017, Additional history exists Zoster Vaccine Completed 06/29/2024, 04/27/2024 Procedures Procedure Name Priority Date/Time Associated Diagnosis Comments EGFR Routine 01/12/2025 1:17 PM CDT Chronic heart failure with preserved ejection fraction (HCC) PRO B-TYPE NATRIURETIC PEPTIDE Routine 01/12/2025 1:17 PM CDT Chronic heart failure with preserved ejection fraction (HCC) BASIC METABOLIC PANEL Routine 01/12/2025 1:17 PM CDT Chronic heart failure with preserved ejection fraction (HCC) SCREENING MAMMOGRAM BILATERAL W ELÍAS Schedule Routine, [...] Recently Relevant to Health Maintenance Results * eGFR (01/12/2025 1:17 PM CDT) eGFR 90 >=60 mL/min/1. 73 m2 Comment: Interpretive Data Reference Interval Normal >/= 90 mL/min/1.73m2 Mildly decreased* 60 - 89 mL/min/1.73m2 Mildly to moderately decreased 45 - 59 mL/min/1.73m2 Moderately to severely decreased 30 - 44 mL/min/1.73m2 Severely decreased 15 - 29 mL/min/1.73m2 Kidney Failure < 15 mL/min/1.73m2 *Relative to young adult level Estimated glomerular filtration rate is determined by the 2020 CKD-EPI equation recommended by the National Kidney Foundation (A Unifying Approach to GFR Estimation: Recommendations of the NKF-ASK Task Force on Reassessing the Inclusion of Race in Diagnosing Kidney Disease, JASN 2020). The CKD-EPI equation should not be used for patients with unstable renal function and has not been validated in children and those over 70. Current interpretive data was last reviewed 2021. Blood 01/12/2025 1:17 PM CDT 01/12/2025 1:39 PM CDT us Son Poole MD LAB BLOOD ORDERABLES Final Result [facility] [address] [facility]. [place] [address] * Pro B-type natriuretic peptide (01/12/2025 1:17 PM CDT) NT-proBNP 134 <=450 pg/mL Comment: Interpretive Comments: A. Dyspnea in Acute Care Setting All Ages: < 300 pg/ml, acute heart failure unlikely. < 50 yrs: 300 - 450 pg/ml, further investigation warranted. > 450 pg/ml, acute heart failure likely. 50 - 74 yrs: 300 - 900 pg/ml, further investigation warranted. > 900 pg/ml, acute heart failure likely . > or = 75 yrs: 450 - 1800 pg/ml, further investigation warranted. > 1800 pg/ml, acute heart failure likely. B. Non-acute Setting < 75 yrs < 125 pg/ml, rules out heart failure. > or = 125 pg/ml, further investigation warranted. > or = 75 yrs < 450 pg/ml, rules out heart failure. > or = 450 pg/ml, further investigation warranted. - Knowledge of each individual patient's NT-proBNP range may be more useful than using similar cut-points for every patient. Please note that marked elevations in NT-proBNP levels may be observed in state other than Left Ventricular Congestive Failure, including: acute coronary syndromes, right heart strain/failure (including pulmonary embolism and cor pulmonale), critical illness, renal failure, as well as advanced age. - References: 1. Fe VILLALPANDO et.al. Eur Heart J. 2006:27:330-337. 2. King CRUZ, Rich MENDIOLA. J. AM [place] Cardiol: Cardiovasc Imag. 2009;2: 216- 225. Interpretive Data Last Revised Date: 2018. Blood 01/12/2025 1:17 PM CDT 01/12/2025 1:39 PM CDT Son Poole MD LAB BLOOD ORDERABLES Final Result Performing Organization Address City/[facility]/ZIP Co de Phone Number [facility] [address] [employer] [place] [address] * Basic metabolic panel (01/12/2025 1:17 PM CDT) Sodium 138 135 - 145 mmol/L Potassium, pl 4.2 3.3 - 4.9 mmol/L [facility] Chloride 102 97 - 110 mmol/L [facility] CO2 28 22 - 32 mmol/L [facility] Anion gap 8 2 - 15 mmol/L [facility] BUN 21 6 - 25 mg/dL [facility] Creatinine 0.70 0.60 - 1.10 mg/dL [facility] Glucose 96 70 - 199 mg/dL [facility] Comment: Interpretive Data Fasting glucose >/= 126 mg/dl is diagnostic for diabetes. Fasting is defined as no caloric intake [...] classification and Diagnosis of Diabetes Diabetes Care 2021; 46: S19-S40. Current interpretive data was last revised 2022. Calcium 9.5 8.5 - 10.3 mg/dL [facility] Blood 01/12/2025 1:17 PM CDT 01/12/2025 1:39 PM CDT Son Poole MD LAB BLOOD ORDERABLES Final Result Performing Organization Address [facility] Co de Phone Number ROSE MARIE ALLEN [phone] [employer] [place] [address] * Screening Mammogram Bilateral W Elías (03/31/2019 10:56 AM CDT) Anatomical Region Laterality Modality Breast Bilateral Mammography Narrative 03/31/2019 3:57 PM CDT Mammogram Technique: Bilateral Digital Breast Tomosynthesis, Bilateral C-view 2D Screening mammogram. Views obtained: bilateral craniocaudal and bilateral mediolateral oblique. Computer Aided Detection was performed. Mammogram Findings: The present examination has been compared to prior imaging studies performed at [facility] on 09/12/2015, 02/11/2017 and 02/20/2018. There are scattered areas of fibroglandular density. There is no suspicious abnormality in either breast. Impression: Annual screening mammography is recommended. OVERALL FINAL ASSESSMENT: BI-RADS CATEGORY 1: Negative. Procedure Note Tammie Pena MD - 03/31/2019 Mammogram Technique: Bilateral Digital Breast Tomosynthesis, Bilateral C-view 2D Screening mammogram. Views obtained: bilateral craniocaudal and bilateral mediolateral oblique. Computer Aided Detection was performed. Mammogram Findings: The present examination has been compared to prior imaging studies performed at [facility] on 09/12/2015, 02/11/2017 and 02/20/2018. There are [...] PM CDT Impressions 06/09/2018 3:29 PM CDT 1. The bone mineral density of the [...] -2.0 is below the expected range for age. A Z-score below the expected range for age in a patient with recent fractures and/or chronic corticosteroid treatment is consistent with a diagnosis of osteoporosis. B) In post menopausal women and males over 50, comparison of the measured bone mineral density with the average value in young normal subjects (the T-score) has been found to be useful in [...] Denotes dissimilar scan types or analysis methods Procedure Note Bashir Miller MD - 06/09/2018 [...] -2.0 is below the expected range for age. A Z-score below the expected range for age in a patient with recent fractures and/or chronic corticosteroid treatment is consistent with a diagnosis of osteoporosis. B) In post menopausal women and males over 50, comparison of the measured bone mineral density with the average value in young normal subjects (the T-score) has been found to be useful in [...] by: Bashir Miller M.D. Santiago Bueno MD IMG DXA PROCEDURES Final Resul t * Hepatitis C antibody (05/22/2017 1:57 PM CDT) Pathologist [facility] Hep C Ab Non-Reacti ve Non-Reacti ve [facility] Comment:Testing performed by : [facility], [facility], [place]., [address] Blood specimen (specimen) 05/22/2017 1:57 PM CDT 05/22/2017 8:04 PM CDT Santiago Bueno MD LAB MICROBIOLOGY - GENERAL ORD ERABLES Final Result [facility] [address] [facility] [address] * HM COLONOSCOPY (02/06/2011) Pathologist formerly [facility] Colonoscopy Normal us Historical Provider MD HEALTH MAINTENANCE Final Result from Last 3 Months or Most Recently Relevant to Health Maintenance Insurance [facility] MEDICARE [facility] Address: [facility] [id number] [place] [phone] [facility] MEDICARE [facility] Address[facility] [id number] [place] [id number] [facility] MEDICARE [facility] MEDICARE [facility] MEDICARE Advance Directives For more information, please contact: [phone] * Full Code (Latest Code Status on File) Date Activated Date Inactivated Comments 05/26/2018 10:21 AM 05/26/2018 2:17 PM Care Teams Absence Management Consultant Relationship Specialty Start Date End Date No, Physician PCP - General 11/18/24 [place] [id number] [facility] [address] [place] [address] Rheumatology 07/15/17
--- OUTSIDE RECORDS SUMMARY | 2025-04-01 09:04 | XMS_ITS | Encounter Summary ---
Author Organization [facility] Address [facility] [place] [address] Care Team Providers Care Water And Gas Helper Name Role Phone Gladis Song MD Unavailable Thi Lugo MD Primary Care Provider Emily Jordan MD Primary Care Provider + Encounter Details Date Type Department Care Team (Late st Contact Info) Description 06/29/[address] [facility] Family & Internal Medicine [address] [address] [place], [facility] Provider Colonoscopy Social History Tobacco Use Types [...] Information Value Date Recorded Sex Assigned at Female 10/06/2024 2:24 PM NURSE WOUND Legal Sex Female 10:22 PM NURSE WOUND Gender Identity Female 09/12/2021 9:51 AM NURSE WOUND Sexual Orientation Straight 09/12/2021 9: 51 AM NURSE WOUND documented as of this encounter Plan of Treatment Upcoming Encounters Date Type Department Care Team (Late st Contact Info) Description 04/08/2025 11:20 AM CDT Office Visit [facility] - [facility] 3 [facility] [address] [place] [address] Johnnie Lr MD [facility] [address] [place] [address] 06/29/2025 1:00 PM CDT Office Visit [facility] Family Medicine - [place] [address] [place], [place] [address] Emily Jordan MD [address] [place] [id number] documented as of this encounter Visit Diagnoses Not on filedocumented in this encounter Additional Health Concerns Infection Onset Date Last Indicated Resolved Time COVID-19 Rule Out 07/16/2022 07/16/2022 07/16/2022 6:24 PM NURSE WOUND COVID-19 Rule Out 05/09/2024 05/09/2024 05/09/2024 1:24 PM CDT COVID-19 Rule Out 10/06/2024 10/06/2024 10/06/2024 2:49 PM NURSE WOUND Assessment Noted Time PHQ-9 Depression Total Score: 2 05/04/20 9:39 AM CDT documented as of this encounter Care Teams Water And Gas Helper Relationship Specialty [place] [address] [facility] [place] [address] PCP - General FAMILY PRACTICE 09/29/21 06/08/24 Emily Jordan MD [address] [place], [place] [address] PCP - General FAMILY PRACTICE 06/09/24 [place] [address] [place] [address] RHEUMATOLOGY 09/27/20 documented as of this encounter
--- OUTSIDE RECORDS SUMMARY | 2025-04-01 09:04 | XMS_ITS | Encounter Summary ---
Author Organization [facility] Address [facility] [place] [address] Care Team Providers Care Receptionist Name Role Phone Gladis Song MD Unavailable Thi Lugo MD Primary Care Provider [phone] Emily Jordan MD Primary Care Provider + Reason for Referral * Surgical (Routine) - Closed Specialty Diagnoses / Procedures Referred By Valerie florian Referred To Contact GENERAL SURGERY Diagnoses Encounter for screening for malignant neoplasm of colon Procedures Case request operating room: COLONOSCOPY DIAGNOSTIC WITH/WITHOUT SPECIMEN BRUSH/WASH WITH POSSIBLE BIOPSY AND POSSIBLE POLYPECTOMY Randal Seth MD [address] [address] Phone: tel: fax: Referral ID Status Reason Start Date Expiration Date Visits Re quested Visits Authorized [id number] Closed 07/23/2023 07/23/2024 1 1 HBOARD ASSEMBLER Encounter Details Date Type Department Care Team (Late st Contact Info) Description 07/23/2023 Prep for Procedure [facility] General Surgery [address], [address] [place] [address] Randal Seth MD [address] [facility] [address] [place] [address] Social History Tobacco Use Types Packs/Day Years [...] Sex Assigned at Female 10/06/2024 2:24 PM PUNCHBOARD ASSEMBLER Legal Sex Female 10:22 PM PUNCHBOARD ASSEMBLER Gender Identity Female 09/12/2021 9:51 AM PUNCHBOARD ASSEMBLER Sexual Orientation Straight 09/12/2021 9: 51 AM PUNCHBOARD ASSEMBLER documented as of this encounter Plan of Treatment Upcoming Encounters Date Type Department Care Team (Late st Contact Info) Description 04/08/2025 11:20 AM CDT Office Visit [facility] Mult[facility]pec[facility]ty Care - [facility] 3 [facility] [address] [place] [address] Johnnie Lr MD 3 [facility] [address] [place] [address] 06/29/2025 1:00 PM CDT Office Visit [facility] Family Medicine - [place] [address] [place] [address] Emily Jordan MD [address] [place] [address] Scheduled Orders Name Type Priority Associated Diagnoses [...] Rule Out 10/06/2024 10/06/2024 10/06/2024 2:49 PM PUNCHBOARD ASSEMBLER Assessment Noted Time PHQ-9 Depression Total Score: 1 04/03/20 23 3:30 PM CDT documented as of this encounter Care Teams Receptionist Relationship Specialty [place] [address] [facility] [place] [address] PCP - General FAMILY PRACTICE 09/29/21 06/08/24 Emily Jordan MD [address] [place] [address] PCP - General FAMILY PRACTICE 06/09/24 [place] [address] [facility] [address] [place] [address] RHEUMATOLOGY 09/27/20 documented as of this encounter
--- OUTSIDE RECORDS SUMMARY | 2025-04-01 09:04 | XMS_ITS | Encounter Summary ---
Author Organization [facility] Address [address] [place] [address] Care Team Providers Care Marine Structural Designer Name Role Phone Gladis Song MD Unavailable Thi Lugo MD Primary Care Provider [phone] Emily Jordan MD Primary Care Provider + Encounter Details Date Type Department Care Team (Late st Contact Info) Description 02/27/2023 MyChart Message Enc [facility] [address] [place] [id number] [facility], [facility] Provider Air Quality Message [...] Sex Assigned at Female 10/06/2024 2:24 PM [place] SEAMER Legal Sex Female 10:22 PM [place] SEAMER Gender Identity Female 09/12/2021 9:51 AM [place] SEAMER Sexual Orientation Straight 09/12/2021 9: 51 AM [place]IA SEAMER documented as of this encounter Plan of Treatment Upcoming Encounters Date Type Department Care Team (Late st Contact Info) Description 04/08/2025 11:20 AM CDT Office Visit [facility] Multispecialty Care - [facility] 3 [facility] [place] [address] Johnnie Lr MD 3 [facility] [address] [place] [address] 06/29/2025 1:00 PM CDT Office Visit [facility] Family Medicine - [place] [address] [place] [address] Emily Jordan MD [address] [place] [address] documented as of this encounter Visit Diagnoses Not on filedocumented in this encounter Additional Health Concerns Infection Onset Date Last Indicated Resolved Time COVID-19 Rule Out 05/09/2024 05/09/2024 05/09/2024 1:24 PM CDT COVID-19 Rule Out 10/06/2024 10/06/2024 10/06/2024 2:49 PM [place] SEAMER Assessment Noted Time PHQ-9 Depression Total Score: 2 05/04/20 9:39 AM CDT documented as of this encounter Care Teams Marine Structural Designer Relationship Specialty [place] [address] [facility] [place] [address] PCP - General FAMILY PRACTICE 09/29/21 06/08/24 Emily Jordan MD [address] [place] [address] PCP - General FAMILY PRACTICE 06/09/24 [place] [address] [facility] [address] [place] [address] RHEUMATOLOGY 09/27/20 documented as of this encounter
--- OUTSIDE RECORDS SUMMARY | 2025-04-01 09:04 | XMS_ITS | Encounter Summary ---
Author Organization [facility] Address [facility] [place] [address] Care Team Providers Care Long Wall Mining Machine Helper Name Role Phone Gladis Song MD Unavailable Thi Lugo MD Primary Care Provider [phone] Emily Jordan MD Primary Care Provider + Encounter Details Date Type Department Care Team (Late st Contact Info) Description 06/17/2023 Prep for Procedure [facility] [address] [place] [address] Marshal Cota MD [address] [address] Social History Tobacco Use Types [...] Sex Assigned at Female 10/06/2024 2:24 PM MIXER SLAGMAN Legal Sex Female 10:22 PM MIXER SLAGMAN Gender Identity Female 09/12/2021 9:51 AM MIXER SLAGMAN Sexual Orientation Straight 09/12/2021 9: 51 AM MIXER SLAGMAN documented as of this encounter Plan of Treatment Upcoming Encounters Date Type Department Care Team (Late st Contact Info) Description 04/08/2025 11:20 AM CDT Office Visit [facility] Multispecialty Care - [facility] 3 [facility] [address] [place] [address] Johnnie Lr MD [facility] [address] [place] [address] 06/29/2025 1:00 PM CDT Office Visit [facility] Family Medicine - [place] [address] [place], [place] [address] Emily Jordan MD [address] [place], [place] [id number] documented as of this encounter Results * ECG 12-Lead (09/10/2023 2:58 PM MIXER SLAGMAN) 09/10/2023 2:58 PM MIXER SLAGMAN Narrative [facility] RAD - 09/11/2023 6:21 AM MIXER SLAGMAN [facility] Test Date: 2023-09-10 Pat Name: MIRELLA ORANTES Department: 85 Room: Gender: Female Speech Therapist Early Intervention: : 1950 Requested By: MARSHAL COTA Order Number: [id number] Reading MD: Adam Bazan Measurements Intervals [place] Rate: 69 P: 52 WV: 212 QRS: -28 QRSD: 99 T: 31 QT: 414 QTc: 446 Interpretive Statements SINUS RHYTHM WITH FIRST DEGREE AV BLOCK RSR' In V1 Or V2 Right VCD Or RVH Compared to ECG 01/09/2022 21:50:56 First degree AV block now present Low QRS voltage now present R SLAGMAN Procedure Note Adam Bazan MD - 09/11/2023 [facility] Test Date: 2023-09-10 Pat Name: MIRELLA ORANTES Department: 85 Room: Gender: Female Speech Therapist Early Intervention: : 1950 Requested By: MARSHAL COTA Order Number: [id number] Reading MD: Adam Bazan Measurements Intervals [place] Rate: 69 P: 52 WV: 212 QRS: -28 QRSD: 99 T: 31 QT: 414 QTc: 446 Interpretive Statements SINUS RHYTHM WITH FIRST DEGREE AV BLOCK RSR' In V1 Or V2 Right VCD Or RVH Compared to ECG 01/09/2022 21:50:56 First degree AV block now present Low QRS voltage now present R SLAGMAN us Marshal Cota MD ECG ORDERABLES Final Result [facility] [place] RAD documented in this encounter Visit Diagnoses Diagnosis Hypertension- Primary Unspecified essential hypertension Hypertension Unspecified essential hypertension documented in this encounter Additional Health Concerns Infection Onset Date Last Indicated Resolved Time COVID-19 Rule Out 05/09/2024 05/09/2024 05/09/2024 1:24 PM CDT COVID-19 Rule Out 10/06/2024 10/06/2024 10/06/2024 2:49 PM MIXER SLAGMAN Assessment Noted Time PHQ-9 Depression Total Score: 1 04/03/20 23 3:30 PM CDT documented as of this encounter Care Teams Long Wall Mining Machine Helper Relationship Specialty [place] [address] [facility]. [address] [place] [address] PCP - General FAMILY PRACTICE 09/29/21 06/08/24 Emily Jordan MD [address] [place] [address] PCP - General FAMILY PRACTICE 06/09/24 [place] [address] [place] [address] RHEUMATOLOGY 09/27/20 documented as of this encounter
--- OUTSIDE RECORDS SUMMARY | 2025-04-01 09:04 | XMS_ITS | Encounter Summary ---
Author Organization [facility] Address [address] [place] [address] Phone Care Team Providers Care Front End Manager Name Role Phone Santiago Bueno MD Primary Care Provider [phone] Gladis Song MD Unavailable Silvia Granger DPT Unavailable [phone] No, Physician Primary Care Provider [phone] Santiago Bueno MD Primary Care Provider [phone] Gabriel Persaud MD Primary Care Provider Santiago Bueno MD Primary Care Provider [phone] Thi Lugo MD Primary Care Provider [phone] Santiago Bueno MD Primary Care Provider [phone] Thi Lugo MD Primary Care Provider [phone] Emily Jordan MD Primary Care Provider [phone] No, Physician Primary Care Provider [phone] Encounter Details Date Type Department Care Team (Late st Contact Info) Description 05/09/2018 Telephone [facility] Cardiology [address] [facility] 8th [place] [address] [place] [address] Mark Carrington MD [address] [facility] [address] [place] [address] Social History Tobacco Use Types Packs/Day Years Used Date Smoking Tobacco: Never Smokeless Tobacco: Never Alcohol Use Standard Drinks/Week Comments No 0 (1 standard drink = 0.6 oz pur e alcohol) Comments Unknown Sex and Gender Information Value Date Recorded Sex Assigned at Not on file Legal Sex Female 12:11 AM ENVIRONMENTAL WEB CRAWLER Gender Identity Not on file Sexual Orientation Not on file Occupation Industry Job Start Date Job End Date Retired Not on file Not on file Not on file documented as of this encounter Plan of Treatment Not on file documented as of this encounter Visit Diagnoses Not on filedocumented in this encounter Care Teams Front End Manager Relationship Specialty Start Date End Date Santiago Bueno MD [address] [facility] [address] [place] [address] PCP - General 11/30/16 06/09/20 No, Physician PCP - General 06/10/20 10/30/20 Santiago Bueno MD [address] [facility] [address] [place] [address] PCP - General Internal Medicine 10/31/20 11/28/20 Gabriel Persaud MD PCP - General Family Medicine 11/29/20 12/01/20 Santiago Bueno MD [address] [facility] [address] [place] [address] PCP - General 12/02/20 10/12/21 Thi Lugo MD PCP - General Family Medicine 10/13/21 10/17/21 Santiago Bueno MD [address] [facility] [address] [place] [address] PCP - General 10/18/21 02/18/22 Thi Lugo MD PCP - General Family Medicine 02/19/22 07/19/24 Emily Jordan MD PCP - General Family Medicine 07/20/24 11/17/24 No, Physician PCP - General 11/18/24 [place] [address] [facility] [address] [place] [address] Rheumatology 07/15/17 Silvia Granger DPT [address] [facility] [address] [place] [address] Physical Therapist Physical Therapy 04/14/20 06/09/20 documented as of this encounter
--- OUTSIDE RECORDS SUMMARY | 2025-04-01 09:04 | XMS_ITS | Encounter Summary ---
Author Organization [facility] Address [address] [place] [address] Phone Care Team Providers Care Tobacco Stemmer Machine Name Role Phone Santiago Bueno MD Primary Care Provider [phone] Santiago Bueno MD Primary Care Provider [phone] Santiago Bueno MD Primary Care Provider [phone] Gladis Song MD Unavailable Silvia Granger DPT Unavailable [phone] No, Physician Primary Care Provider [phone] Santiago Bueno MD Primary Care Provider [phone] Gabriel Persaud MD Primary Care Provider Santiago Bueno MD Primary Care Provider [phone] Thi Lugo MD Primary Care Provider [phone] Santiago Buneo MD Primary Care Provider [phone] Thi Lugo MD Primary Care Provider [phone] Emily Jordan MD Primary Care Provider [phone] No, Physician Primary Care Provider [phone] Encounter Details Date Type Department Care Team [...] on file Legal Sex Female 12:11 AM EMERGENCY ROOM TECH Gender Identity Not on file Sexual Orientation Not on file documented as of this encounter Plan of Treatment Not on file documented as of this encounter Procedures Procedure Name Priority Date/Time Associated Diagnosis Comments SCAN - RADIOLOGY/IMAGING 03/24/2016 documented in this encounter Results * SCAN - RADIOLOGY/IMAGING (03/24/2016) Anatomical Region Laterality Modality Other us Provider Scanning Final Result documented in this encounter Visit Diagnoses Not on filedocumented in this encounter Care Teams Tobacco Stemmer Machine Relationship Specialty Start Date End Date Santiago Bueno MD [address] [facility] [address] [place] [address] PCP - General 11/30/16 06/09/20 Santiago Bueno MD [address] [facility] [address] [place] [address] PCP - General 10/15/16 11/29/16 Santiago Bueno MD [address] [facility] [address] [place] [address] PCP - General 09/03/06 10/14/16 No, Physician PCP - General 06/10/20 10/30/20 Santiago Bueno MD [address] [facility] [address] [place] [address] PCP - General Internal Medicine 10/31/20 11/28/20 Gabriel Persaud MD PCP - General Family Medicine 11/29/20 12/01/20 Santiago Bueno MD [address] [facility] [address] [place] [address] PCP - General 12/02/20 10/12/21 Thi Lugo MD PCP - General Family Medicine 10/13/21 10/17/21 Santiago Bueno MD [address] [facility] [address] [place] [address] PCP - General 10/18/21 02/18/22 Thi Lugo MD PCP - General Family Medicine 02/19/22 07/19/24 Emily Jordan MD PCP - General Family Medicine 07/20/24 11/17/24 No, Physician PCP - General 11/18/24 [place] [address] [facility] [address] [place] [address] Rheumatology 07/15/17 Silvia Granger DPT [address] [facility] [address] [place] [address] Physical Therapist Physical Therapy 04/14/20 06/09/20 documented as of this encounter
--- OUTSIDE RECORDS SUMMARY | 2025-04-01 09:04 | XMS_ITS | Clinical Summary ---
Author Organization [facility] Address [address] [place] [address] Care Team Providers Care Weight Analyst Name Role Phone Gladis Song MD Unavailable Emily Jordan MD Primary Care Provider + Allergies Active Allergy Reactions Criticality Noted Date Comments Latex Rash Medium 04/25/2020 Levofloxacin Headache,Nausea Only Low 04/25/2020 Nitrofurantoin Headache Low 04/25/2020 Sulfa Antibiotics Swelling Medium 07/29/2013 Medications atorvastatin 80 MG tablet TAKE 1 TABLET BY MOUTH EVERY DAY 9 Active nitroglycerin 0.4 MG SL tablet As needed 8 Active vitamin D3, cholecalciferol, 125 mcg capsule 1 capsule (125 mcg total) daily. 5 Active Calcium Carbonate Antacid (CALCIUM CARBONATE OR) Take 600 mg by mouth daily. Active vitamin C 1000 MG tablet Take 1 tablet (1,000 mg total) by mouth daily. Active ELIQUIS 5 MG tablet Take 1 tablet (5 mg total) by mouth 2 (two) times daily. 2 Active isosorbide mononitrate ER (IMDUR) 30 MG 24 hr tabletIndication s:Essential hypertension Take 1 tablet (30 mg total) by mouth daily. 30 tablet 3 Active empagliflozin (JARDIANCE) 10 MG tablet Take 1 tablet (10 mg total) by mouth daily. 3 Active brimonidine (ALPHAGAN) 0.2 % ophthalmic solution INSTILL 1 DROP INTO BOTH EYES 3 TIMES A DAY 4 Active triamcinolone (KENALOG) 0.1 % creamIndications :Allergic dermatitis Apply topically 2 (two) times daily. 15 g 1 4 Active fluticasone furoate-vilanter ol (BREO ELLIPTA) 100-25 MCG/ACT inhalerIndicatio ns:Mild persistent asthma without complication (HHS/HCC) Inhale 1 puff into the lungs daily. Rinse and spit after use 180 each 3 4 Active methotrexate (TREXALL) 2.5 MG tablet Per rheumatology 4 Active bisoprolol (ZEBETA) 5 MG tablet Take 1 tablet (5 mg total) by mouth daily. 4 Active pantoprazole EC (PROTONIX) 40 MG tabletIndication s:Gastroesophage al reflux disease without esophagitis Take 1 tablet (40 mg total) by mouth daily. 90 tablet 3 4 Active montelukast (SINGULAIR) 10 MG tablet Take 1 tablet (10 mg total) by mouth nightly. 5 Active albuterol sulfate HFA 108 (90 Base) MCG/ACT inhalerIndicatio ns:Shortness of breath Inhale 2 puffs into the lungs every 4 (four) hours as needed for Wheezing. 18 g 3 5 Active pregabalin (LYRICA) 50 MG capsuleIndicatio ns:Polyneuropath y, peripheral sensorimotor axonal Take 1 capsule (50 mg total) by mouth nightly at bedtime. 90 capsule 3 5 026 Active PARoxetine (PAXIL) 10 MG tabletIndication s:Anxiety state Take 1 tablet (10 mg total) by mouth daily. Do not fill until pt requests 90 tablet 3 5 026 Active Active Problems Problem Noted Date Diagnosed Date Polyneuropathy, peripheral sensorimotor axonal 1 Overview (01/06/2025): 2/2 SLE. Sees neurology. Picked up the Lyrica but has not yet tried it. She thought perhaps it was to manage her leg cramping which is resolved with discontinuation of potassium. She continues to have a sense of numbness in the feet and feeling like stones in her shoes. Starting Lyrica helped but made her too lethargic during the day so she takes 50 mg at bedtime only. This makes symptoms manageable. Assessment & Plan (01/06/2025 2:21 PM CDT): Chronic but manageable. Adjust Lyrica prescription to reflect 50 mg at bedtime only. Assessment & Plan (07/07/2024 10:09 AM TRACTOR TRAILER MOVING VAN DRIVER): Not yet controlled. Encouraged her to start Lyrica which should help manage symptoms adequately. Assessment & Plan (06/09/2024 11:31 AM CDT): Not controlled. Trial pregabalin. History of colon cancer 07/22/2023 Mild neurocognitive disorder 10/19/2022 Overview (06/09/2024): Forgets instructions easily. Good memory from the past. Assessment & Plan (01/06/2025 2:20 PM CDT): Stable. No recent changes. Sacroiliac joint dysfunction of both sides 05/20 Essential hypertension 04/26/2020 Overview (06/09/2024): Patient takes isosorbide mononitrate, bisoprolol. Did not tolerate otherbeta blockers. Assessment & Plan (01/06/2025 2:19 PM CDT): Controlled. Continue isosorbide mononitrate, bisoprolol. Hypertensive heart disease w ith chronic systolic congestive heart failure ([facility]) 06/01/2019 Overview (04/25/2020): Last Assessment & Plan: On appropriate medical therapy. Continue medical therapy. Atherosclerosis of coronary artery 11/21/2018 Overview (06/09/2024): Mild coronary artery disease 20-30% narrowing in the circumflex and right coronar artery from 05/2018. No prior stents or bypass. On appropriate medical therapy. Continue medication. Heart failure with preserved ejection fraction ([facility]) 11/21/2018 Overview (01/06/2025): LVEDP was 22 from cardiac catheterization in May of 2018. Followed by Cardiology. On appropriate medical therapy including SGLT2. Was on furosemide daily but is now taking intermittently when she notes edema. Assessment & Plan (01/06/2025 2:20 PM CDT): Stable. Monitored by cardiology. Assessment & Plan (06/09/2024 11:35 AM CDT): [...] mg daily. Tolerates well. Assessment & Plan (01/06/2025 2:20 PM CDT): Chronic. Will check lipid panel and CMP next visit. Continue atorvastatin. Assessment & Plan (06/09/2024 11:34 AM CDT): CMP and lipid panel reviewed and at goal. Continue atorvastatin. Paroxysmal atrial fibrillation ([facility]) 05/21/2018 Overview (06/09/2024): On Eliquis for CVA prophylaxis. Did not tolerate several beta-blockers but is now on bisoprolol for rate control. Assessment & Plan (01/06/2025 2:20 PM CDT): Chronic. Remains on Eliquis and bisoprolol for rate control. Assessment & Plan (06/09/2024 11:33 AM CDT): Rate controlled on bisoprolol and anticoagulated with Eliquis. Stable. Followed by cardiology. Obstructive sleep apnea syndrome 08/01/2016 Overview (06/09/2024): Stopped CPAP after she noted didn't tolerate. Intended to get rechecked but did not pursue. Generalized osteoarthritis 07/17/2016 Patent foramen ovale (HHS/HCC) 04/13/2016 Overview (06/09/2024): Patent foramen ovale. RoPE score of 2 with low likelihood of contribution to TIAs. Therefore, PFO closure has not been recommended Moderate persistent asthma without complication ([facility]CC) 07/12/2015 Overview (06/09/2024): Patient takes Breo Ellipta, albuterol. Sees Dr. Lr. Goes days without albuterol. Has not needed singulair for some time. Assessment & Plan (01/06/2025 2:20 PM CDT): Stable. Managed by pulmonology. Assessment & Plan (06/09/2024 11:33 AM CDT): Controlled. Continue Breo Ellipta and albuterol. Prediabetes 06/03/2015 Overview (06/09/2024): Last A1c 5.9%. Late, effect, cerebrovascular disease 06/03/2015 Overview (06/09/2024): Minimal residual, was left sided weakness. JEET (generalized anxiety disorder) 01/16/2014 Overview (01/06/2025): She reduced her Paxil to 20 mg daily. Stable at this time. Reports ongoing stressors. Her son and grandson live with her and help minimally around the house but do not pay rent either. Assessment & Plan (01/06/2025 2:19 PM CDT): Controlled. She is interested in reducing Paxil. Will reduce to 10 mg daily and monitor. Assessment & Plan (06/09/2024 11:35 AM CDT): Controlled on reduced dose. Encouraged her to continue on this lower dose. Gastroesophageal reflux disease 01/16/2014 Overview (06/09/2024): Takes pantoprazole. If she skips a dose, she has bad heartburn. Assessment & Plan (01/06/2025 2:19 PM CDT): Controlled. Benefits outweigh risk of long-term use. Continue pantoprazole. Assessment & Plan (10/26/2024 1:18 PM TRACTOR TRAILER MOVING VAN DRIVER): Not controlled. Recently flared likely due to prednisone treatment. Recommend pantoprazole 40 mg twice daily x 1-2 weeks and also 1 month of sucralfate to help minimize symptoms. Request an update if her symptoms do not resolve. Assessment & Plan (06/09/2024 11:33 AM CDT): Controlled. Continue pantoprazole. Also serves as prophylaxis due to anticoagulation. Osteopenia 01/16/2014 Overview (04/25/2020): osteopenia Last Assessment & Plan: Time to repeat DEXA (5 years) -- ordered. Systemic lupus erythematosus ([facility]) 0 01/16/2014 Overview (06/09/2024): Sees rheumatolgoy. Stable, no signs of flare. Continues on MTX. Has caused polyneuropathy. Assessment & Plan (01/06/2025 2:21 PM CDT): Stable and managed by rheumatology. Tremor 01/29/2013 Overview (06/09/2024): Right hand. She is also right handed. Resolved Problems Problem Noted Date Diagnosed Date Resolved Date Encounter for screening for malignant neoplasm of colon 07/23/2023 07/29/2023 Encounter for screening for malignant neoplasm of colon 07/23/2023 09/23/2023 Breast cancer screening by mammogram 04/26/2020 05/13/2020 Encounters Date Type Department Care Team Description 01/06/2025 1:40 PM CDT Office Visit [facility] [address] [place] [address] Emily Jordan MD Follow Up (6 month follow up.) 01/06/2025 Travel 01/01/2025 Patient Outreach [facility] [address] [place] [address] Emily Jordan MD Pre-visit Gap Closure from Last 3 Months Immunizations Immunization Administration Dates Next Due Flublok (RIV3, Trivalent, [...] Date Recorded Patient Health Questionnaire-2 Score 0 10/13/2024 Comments No Sex and Gender Information Value Date Recorded Sex Assigned at Female 10/06/2024 2:24 PM TRACTOR TRAILER MOVING VAN DRIVER Legal Sex Female 10:22 PM TRACTOR TRAILER MOVING VAN DRIVER Gender Identity Female 09/12/2021 9:51 AM TRACTOR TRAILER MOVING VAN DRIVER Sexual Orientation Straight 09/12/2021 9: 51 AM TRACTOR TRAILER MOVING VAN DRIVER Last Filed Vital Signs Vital Sign Reading Time Taken Comments Blood Pressure 110/66 01/06/2025 1:45 PM CDT Pulse 66 01/06/2025 1:45 PM CDT Temperature 36.1 C (96.9 F) 01/06/2025 1:45 PM CDT Respiratory Rate 20 10/06/2024 2:24 PM TRACTOR TRAILER MOVING VAN DRIVER Oxygen Saturation 96% 01/06/2025 1:45 PM CDT Inhaled Oxygen Concentration - - Weight 61.1 kg (134 lb 9.6 oz) 01/06/2025 1:45 P M CDT Height 149.9 cm (4' 11) 01/06/2025 1:45 PM CDT Body Mass Index 27.19 01/06/2025 1:45 PM CDT Plan of Treatment Upcoming Encounters Date Type Department Care Team (Late st Contact Info) Description 04/08/2025 11:20 AM CDT Office Visit [facility] Multispecialty Care - [facility] [address] [place] [phone] Johnnie Lr MD [address] [facility] [address] [place] [address] 06/29/2025 1:00 PM CDT Office Visit [facility] Family Medicine - [place] [address] [place] [address] Emily Jordan MD [address] [place] [address] Health Maintenance Due Date Last Done Comments ASCVD Statin 1950 DTaP, Tdap and Td Vaccines (1 - Tdap) 1969 Annual Medicare Wellness Visit 09/28/2021 09/27/2020 RSV Immunization or 60+ Years (1 - 1-dose 75+ series) 2023 COVID-19 Vaccine ( - season) 2024 07/06/2022, 08/07/2021, 11/18/2020, Additional history exists Pneumococcal Vaccine: 50+ Years Completed 05/22/2017, 05/28/2014 Dexa Scan (General) Completed 05/15/2021, 06/09/2018, 06/09/2018 Hepatitis C Completed 08/18/2021, 08/18/2021 Colorectal Cancer Screening Colonoscopy (10 Years) Discontinued 09/18/2023, 09/18/2023 Zoster Vaccines Completed 06/29/2024, 04/27/2024 PHQ-2 (Physician [place]) Completed 10/13/2024 Meningococcal B Vaccine Aged Out No l onger eligible based on patient's age to complete this topic Meningococcal Vaccine Aged Out No ana humberto eligible based on patient's age to complete this topic RSV Immunizations Under 20 Months Aged Out No longer eligible based on patient's age to complete this topic Medical Devices Implanted Type Area Show Worker Device Identifier Shelf Expiration Date Model / Serial / Lot Iol Tecnis Simplicity Dcb00 - [id number] Implanted:Qty: 1 on 04/23/2022 by Bryan Oshea MD at [facility] Lens Left: Eye [employer] [id number] 11/14/2024 DCB00 / [id number] / Iol [employer]ision Pcb00 - [id number] Implanted:Qty: 1 on 05/28/2022 by Bryan Oshea MD at [facility] Lens Right: Eye [employer] [id number] 10/02/2022 PCB00 / [id number] / Procedures Procedure Name Priority Date/Time Associated Diagnosis Comments COLONOSCOPY Routine 09/18/2023 8:37 AM TRACTOR TRAILER MOVING VAN DRIVER BONE DENSITY/DEXA Routine 05/15/2021 3:1 9 PM CDT Age-related osteoporosis without current pathological fracture from Last 3 Months or Most Recently Relevant to Health Maintenance Results * BONE DENSITY/DEXA (05/15/2021 3:19 PM CDT) Anatomical Region Laterality Modality Bone Bone Density 05/15/2021 4:01 PM CDT Impressions 05/15/2021 4:02 PM CDT FINDINGS AND IMPRESSION: Examination performed on a [employer] Discovery SL .: LUMBAR SPINE L2-L4: 1. [...] screening . COMPARISON STUDIES: No previous available. Procedure Note Kike Garcia MD - 05/15/2021 Examination: BONE DENSITY/DEXA Exam date/time: 05/15/2021 3:19 PM CLINICAL HISTORY: Postmenopausal status, screening . COMPARISON STUDIES: No previous available. FINDINGS AND IMPRESSION: Examination performed on a [employer] Discovery SL .: LUMBAR SPINE L2-L4: 1. [...] By: Kike Garcia, 05/15/2021 4:01 PM us Majo Hope MD DEXA Final Result from Last 3 Months or Most Recently Relevant to Health Maintenance Insurance [employer] Care Teams Weight Analyst Relationship Specialty Start Date End Date Emily Jordan MD [address] [place] [id number] PCP - General FAMILY PRACTICE 06/09/24 [place] [id number] [facility]. [facility] [address] [place] [address] RHEUMATOLOGY 09/27/20
--- OUTSIDE RECORDS SUMMARY | 2025-04-01 09:04 | XMS_ITS | Referral Summary ---
Author Organization [facility] Address [address] [place] [address] Care Team Providers Care Wine Master Name Role Phone Gladis Song MD Unavailable No, Physician Primary Care Provider [phone] Encounters Date Type Department Care Team Description 01/21/2025 12:00 PM CDT Office Visit [facility] Neuro Muscle [address] 6[address] [place] [address] [place] [phone] Julianna Mirza MD Neuropathy; Sensory motor neuropathy 01/12/2025 Results Follow-Up [facility] Cardiology [address] [place] [address] [address] [place] [phone] Son Poole MD Basic metabolic panel, Pro B-type natriuretic peptide, eGFR 01/12/2025 1:10 PM CDT Lab [facility] [address] [place] [address] Chronic heart failure with preserved ejection fraction (HCC) 01/12/2025 11:30 AM CDT Office Visit [facility] Cardiology [address] [place] [address] [address] [place] [phone] Son Poole MD Chronic heart failure with preserved ejection fraction (HCC) (Primary Dx); Coronary artery disease involving [place] heart without angina pectoris, unspecified vessel or lesion type; Paroxysmal atrial fibrillation (HCC) from Last 3 Months Allergies Active Allergy [...] (03/03/2020): Added automatically from request for surgery [id number] Tachycardia 09/03/2019 Dyspepsia 09/03/2019 Annual physical exam [...] this Assessment & Plan (07/14/2024 11:36 AM YARDAGE ESTIMATOR): Moderate coronary disease with recurrent exertional dyspnea and chest pain symptoms. We will recheck exercise stress echo Assessment & Plan (12/24/2022 10:08 AM CDT): CAD with non obstructed CAD on [facility] in 2018 now with stable [...] PM CDT): She had minimal CAD on [facility] in 2018. She continues on atorvastatin [...] stopped. Assessment & Plan (07/11/2018 5:29 PM YARDAGE ESTIMATOR): Seems biliary by history. Will check RUQ [...] BID Assessment & Plan (07/11/2018 5:29 PM YARDAGE ESTIMATOR): Although this is not well documented, she [...] 04/29/2017 Assessment & Plan (09/03/2019 11:50 AM YARDAGE ESTIMATOR): BMI Follow-up includes: nutrition counseling, exercise counseling [...] provided. Assessment & Plan (10/21/2017 9:29 AM YARDAGE ESTIMATOR): Body mass index is 32.32 kg/m . BMI Follow-up includes: nutrition counseling, exercise counseling and education provided. Assessment & Plan (09/23/2017 2:52 PM YARDAGE ESTIMATOR): Body mass index is 31.91 kg/m . BMI Follow-up includes: nutrition counseling, exercise counseling and education provided. Assessment & Plan (08/16/2017 11:22 AM YARDAGE ESTIMATOR): BMI Follow-up includes: nutrition counseling, exercise counseling [...] recommended Assessment & Plan (07/14/2024 11:36 AM YARDAGE ESTIMATOR): Known PFO. Already on anticoagulation due to possible history of atrial fibrillation. No clear documented history of AFib however there was enough of a clinical concern that this was started by her prior vamp seamer. She was tolerating this okay without any [...] Maintain adequate clear fluid intake. May use [id number] acetaminophen or ibuprofen. Medication instructions were provided [...] orders Assessment & Plan (09/23/2017 2:52 PM YARDAGE ESTIMATOR): Using her singulair and inhaler as prescribed. [...] Song. Assessment & Plan (10/22/2017 11:13 AM YARDAGE ESTIMATOR): Patient disease activity is moderate. Her LFTs are now normal so will try increasing MTX. Patient is to continue HCQ. She is to increase the MtX to 4 tablets/week x 1 week, then increase to 6 tablets/week thereafter. Will check routine labs at the next OV. She had an eye exam recently. Assessment & Plan (09/09/2017 9:55 AM YARDAGE ESTIMATOR): MTX started at the last Ov. She [...] MTX. Assessment & Plan (07/29/2017 12:51 PM YARDAGE ESTIMATOR): Patient disease activity is moderate. Patient is [...] GI. Assessment & Plan (07/11/2018 5:28 PM YARDAGE ESTIMATOR): Has Hx reflux but on treatment and her symptoms don't seem consistent with this. Continue current medication for now. Assessment & Plan (05/13/2018 10:12 AM CDT): Not certain this diagnosis is correct or whether it is responsible for any symptoms given her normal EGD and lack of response to PPI therapy. Seeing vamp seamer next week to consider alternative explanations for heartburn. Assessment & Plan (10/22/2017 11:14 AM YARDAGE ESTIMATOR): Recently started on protonix. Assessment & Plan (10/21/2017 9:28 AM YARDAGE ESTIMATOR): Change the omeprazole to pantoprazole 40 mg [...] GI Assessment & Plan (09/23/2017 2:51 PM YARDAGE ESTIMATOR): Increase omeprazole to 40 mg daily. sit [...] medication, Maintain adequate fluid intake. May use [id number] acetaminophen or ibuprofen. Medication instructions were provided [...] 05/13/2018 Assessment & Plan (10/21/2017 9:29 AM YARDAGE ESTIMATOR): Resolved. Lungs are clear. Assessment & Plan (09/23/2017 2:52 PM YARDAGE ESTIMATOR): Order CXR today May need steroids, antibiotic if pneumonia. Assessment & Plan (08/16/2017 12:36 PM YARDAGE ESTIMATOR): Patient is still continuing to wheeze. Ventolin 2 puffs t.i.d.. Explained to patient that she should contact the office if she does not feel better. Hypokalemia 08/16/2017 05/13/2018 Assessment & Plan (08/16/2017 12:36 PM YARDAGE ESTIMATOR): Patient was given potassium at the urgent care. BMP today. 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 She is already working with a poured concrete wall technician on this (but they reportedly don't know what's causing it either). We'll see if anything comes up in lab work. TIA (transient ischemic attack) 04/29/2017 05/13/2018 Assessment & Plan (04/29/2017 8:32 PM CDT): Workup completed in [facility] in [place], [place] CT negative except old infarct from [...] 09/2017. Assessment & Plan (10/22/2017 11:13 AM YARDAGE ESTIMATOR): Will continue to monitor the patient with routine labs. Assessment & Plan (09/09/2017 7:58 AM YARDAGE ESTIMATOR): Will continue to monitor the patient with routine labs. Assessment & Plan (07/29/2017 12:51 PM YARDAGE ESTIMATOR): Will continue to monitor the patient with [...] 10/30/2006 05/13/2018 Overview (12/07/2016): JOINT PAIN-UNSPEC Immunizations Immunization Administration Dates Next Due Influenza, [...] on file Legal Sex Female 12:11 AM YARDAGE ESTIMATOR Gender Identity Not on file Sexual Orientation [...] 01/21/2025 11:35 AM CDT Plan of Treatment Not on file Procedures [...] BLOOD ORDERABLES Final Result [facility] [address] [facility] [address] * Pro B-type natriuretic peptide (01/12/2025 1:17 [...] et.al. Eur Heart J. 2006:27:330-337. 2. King RW, Rich AM. J. AM [place] Cardiol: Cardiovasc Imag. 2009;2: 216- 225. Interpretive Data Last Revised Date: 2018. Blood 01/12/2025 1:17 PM CDT 01/12/2025 1:39 PM CDT us Son Poole MD LAB BLOOD ORDERABLES Final Result [facility] [address] [facility] [address] * Basic metabolic panel (01/12/2025 1:17 PM CDT) Sodium 138 135 - 145 mmol/L Potassium, pl 4.2 3.3 - 4.9 mmol/L [facility] Chloride 102 97 - 110 mmol/L [facility] CO2 28 22 - 32 mmol/L [facility] Anion gap 8 2 - 15 mmol/L [facility] BUN 21 6 - 25 mg/dL [facility] Creatinine 0.70 0.60 - 1.10 mg/dL [facility] Glucose 96 70 - 199 mg/dL [facility] Comment: Interpretive Data Fasting glucose >/= 126 [...] 2022. Calcium 9.5 8.5 - 10.3 mg/dL [facility] Blood 01/12/2025 1:17 PM CDT 01/12/2025 1:39 PM CDT us Son Poole MD LAB BLOOD ORDERABLES Final Result [facility] [address] [facility] [place] [address] * Screening Mammogram Bilateral W Elías (03/31/2019 10:56 AM CDT) Anatomical Region Laterality Modality Breast Bilateral Mammography Narrative 03/31/2019 3:57 PM CDT Mammogram Technique: Bilateral Digital Breast Tomosynthesis, Bilateral C-view 2D Screening mammogram. Views obtained: bilateral craniocaudal and bilateral mediolateral oblique. Computer Aided Detection was performed. Mammogram Findings: The present examination has been compared to prior imaging studies performed at [facility] on 09/12/2015, 02/11/2017 and 02/20/2018. There [...] prior imaging studies performed at [facility] on 09/12/2015, 02/11/2017 and 02/20/2018. There [...] Hepatitis C antibody (05/22/2017 1:57 PM CDT) [facility] Hep C Ab Non-Reacti ve Non-Reacti ve [facility] Comment:Testing performed by : [facility], [facility] [facility], [place]., [address] Blood specimen (specimen) 05/22/2017 1:57 PM CDT 05/22/2017 8:04 PM CDT Santiago Bueno MD LAB MICROBIOLOGY - GENERAL ORD ERABLES Final Result Performing Organization Address City/State/[facility] Co de Phone Number [facility] [address] [facility] Department [place] [address] * COLONOSCOPY (02/06/2011) [facility] Colonoscopy Normal Historical Provider HEALTH MAINTENANCE Final Result from Last 3 Months or Most Recently Relevant to Health Maintenance Insurance [employer] MEDICARE [facility] MEDICARE [facility] MEDICARE [facility] MEDICARE [facility] MEDICARE Advance Directives For more information, please contact: [phone] * Full Code (Latest Code Status on File) Date Activated Date Inactivated Comments 05/26/2018 10:21 AM 05/26/2018 2:17 PM Care Teams Wine Master Relationship Specialty Start Date End Date No, Physician PCP - General 11/18/24 [place] [address] [facility] [address] [place] [address] Rheumatology 07/15/17
--- OUTSIDE RECORDS SUMMARY | 2025-04-01 09:04 | XMS_ITS | Encounter Summary ---
Author Organization [facility] Address [facility] [place] [address] Care Team Providers Care General Office Clerk Name Role Phone Gladis Song MD Unavailable Thi Lugo MD Primary Care Provider [phone] Emily Jordan MD Primary Care Provider + Encounter Details Date Type Department Care Team (Late st Contact Info) Description 01/31/2023 [employer] Message Enc [facility] Medical Group Family & Internal Medicine [address] [address] [place], [facility] Provider RESULTS Social History Tobacco Use [...] Sex Assigned at Female 10/06/2024 2:24 PM FINANCIAL COMPLIANCE EXAMINER Legal Sex Female 10:22 PM FINANCIAL COMPLIANCE EXAMINER Gender Identity Female 09/12/2021 9:51 AM FINANCIAL COMPLIANCE EXAMINER Sexual Orientation Straight 09/12/2021 9: 51 AM FINANCIAL COMPLIANCE EXAMINER COVID-19 Exposure Response Date Recorded In the last 10 days, have yo u been in contact with someone who was confirmed or suspected to have Coronavirus/COVID-19? No / Unsure 01/09/2023 10:39 AM CDT documented as of this encounter Plan of Treatment Upcoming Encounters Date Type Department Care Team (Late st Contact Info) Description 04/08/2025 11:20 AM CDT Office Visit [facility] - [facility] [address] [facility] [place] [address] Johnnie Lr MD [address] [facility] [place] [address] 06/29/2025 1:00 PM CDT Office Visit [facility] Family Medicine - [place] [address] [place] [address] Emily Jordan MD [address] [place], [place] [id number] documented as of this encounter Visit Diagnoses Not on filedocumented in this encounter Additional Health Concerns Infection Onset Date Last Indicated Resolved Time COVID-19 Rule Out 05/09/2024 05/09/2024 05/09/2024 1:24 PM CDT COVID-19 Rule Out 10/06/2024 10/06/2024 10/06/2024 2:49 PM FINANCIAL COMPLIANCE EXAMINER Assessment Noted Time PHQ-9 Depression Total Score: 2 05/04/20 9:39 AM CDT documented as of this encounter Care Teams General Office Clerk Relationship Specialty [place] [address] [address] [facility] [place] [address] PCP - General FAMILY PRACTICE 09/29/21 06/08/24 Emily Jordan MD [address] [place], [place] [address] PCP - General FAMILY PRACTICE 06/09/24 [place] [address] [address] [facility] [address] [place] [address] RHEUMATOLOGY 09/27/20 documented as of this encounter
--- OUTSIDE RECORDS SUMMARY | 2025-04-01 09:05 | XMS_ITS | Patient Health Record ---
Author Organization [facility] Address [address] [place] [address] Care Team Providers Care Medical Device Sales Consultant Name Role Phone SIMRAN TYSON Unavailable Allergies Allergen (clinical drug ingredient) Drug/Non Drug Allergy documented on EMR Reaction Allergy Type Onset Date Status Doxycycline Hyclate sun burn Drug Allergy Active Levaquin headaches Drug Allergy Active Sulfacet-R edema/lips Drug Allergy Activ e Reason For Referral No Information Medications Medication SIG (Take, Route, Frequency, Duration) Notes Start Date End Date Status Paxil Active Proventil HFA Active ProAir HFA 108 (90 Base) MCG/ACT 2 puffs as needed Inhalation every 4 -6hrs; Duration: 30 days 05/07/2019 Active Methotrexate Active Singulair Active Eliquis Active Atorvastatin Calcium Active Pantoprazole Sodium Active Klor-Con Active flovent HFA Active Leflunomide Active Hydroxychloroquine Sulfate Active hydroCHLOROthiazide Active Furosemide Active Metoprolol Succinate ER Active Problems Problem Type SNOMED Code ICD Code Onset Dates Problem Status W/U Status Risk Notes Problem Mild intermitten t asthma with (acute) exacerbation (J45.21) Active confirmed Plan Of Treatment Pending Test Test Name Order Date INJ Roceph (1 gram) 04/07/2019 PRO Nebulizer Treatment 04/07/2019 Inj Dexamethasone 04/07/2019 Insurance Providers Payer Name Payer Address Payer Phone Subscriber Number Group Number Insured Name Patient Relationship to Insured Coverage Start Date Coverage End Date A[employer] [address] [address] [place] [phone] [id number] MIRELLA HSU Self - patient is the insured Medications Administered Medication Instructions Date of Administration Dosage Notes Ceftriaxone 1G 04/07/2019 1 g tolerated Medical (General) History Medical History History ICD Code valvular heart disease-on Eloquis to pre vent clots Lupus/ arthritis Asthma Anxiety Gastritis HTN Stroke Hyperlipidemia Surgical History Surgery Date(Month/Year) Childbirth, C-Sec. unknown Hysterectomy unknown Tonsillectomy unknown Hospitalization History Reason Date(Month/Year) See Sx. List
--- OUTSIDE RECORDS SUMMARY | 2025-04-01 09:05 | XMS_ITS | Encounter Summary ---
Author Organization [facility] Address [facility] [place] [address] Care Team Providers Care Information Consultant Name Role Phone Gladis Song MD Unavailable Thi Lugo MD Primary Care Provider [phone] Emily Jordan MD Primary Care Provider + Encounter Details Date Type Department Care Team (Late st Contact Info) Description 12/15/2021 [employer] Message Enc [facility] Medical Group Family & Internal Medicine [address] [address] [place], [facility] Provider Mammogram result Social History Tobacco Use [...] Sex Assigned at Female 10/06/2024 2:24 PM POULTRY HATCHERY MAN Legal Sex Female 10:22 PM POULTRY HATCHERY MAN Gender Identity Female 09/12/2021 9:51 AM POULTRY HATCHERY MAN Sexual Orientation Straight 09/12/2021 9: 51 AM POULTRY HATCHERY MAN documented as of this encounter Plan of Treatment Upcoming Encounters Date Type Department Care Team (Late st Contact Info) Description 04/08/2025 11:20 AM CDT Office Visit [facility] Medical [facility] - [facility] [address] [facility] [place] [address] Johnnie Lr MD [address] [facility] [address] [place] [address] 06/29/2025 1:00 PM CDT Office Visit [facility] Family Medicine - [place] [address] [place], [place] [address] Emily Jordan MD [address] [place] [address] documented as of this encounter Visit Diagnoses [...] Rule Out 07/16/2022 07/16/2022 07/16/2022 6:24 PM POULTRY HATCHERY MAN COVID-19 Rule Out 05/09/2024 05/09/2024 05/09/2024 1:24 PM CDT COVID-19 Rule Out 10/06/2024 10/06/2024 10/06/2024 2:49 PM POULTRY HATCHERY MAN Assessment Noted Time PHQ-9 Depression Total Score: 13 022 9:37 AM POULTRY HATCHERY MAN documented as of this encounter Care Teams Information Consultant Relationship Specialty [place] [address] [place] [address] PCP - General FAMILY PRACTICE 09/29/21 06/08/24 Emily Jordan MD [address] [place] [address] PCP - General FAMILY PRACTICE 06/09/24 [place] [address] [facility] [place] [address] RHEUMATOLOGY 09/27/20 documented as of this encounter
--- OUTSIDE RECORDS SUMMARY | 2025-04-01 09:05 | XMS_ITS | Clinical Summary ---
Author Organization [facility] Address [address] [place] [address] Care Team Providers Care Assistant Brand Manager Name Role Phone Santiago Bueno MD Primary Care Provider [phone] Source Comments [facility] Affiliates and Associated Physician Practices is amultiple site organization consisting of ambulatory clinics and hospital sitesin [place], [place], [place] and [place]. This disclosure is being madepursuant to the Care Everywhere program and may not contain all information available regarding this patient. Last updated 18.[facility] Social History Tobacco Use Types Packs/Day Years Used Date Smoking Tobacco: Never Assessed Comments Unknown Sex and Gender Information Value Date Recorded Sex Assigned at Not on file Legal Sex Female 11:28 AM NUCLEAR EQUIPMENT DESIGN ENGINEER Gender Identity Not on file Sexual Orientation Not on file Plan of Treatment Health Maintenance Due Date Last Done Comments BONE DENSITY TESTING 1950 HEPATITIS C SCREENING 10/24/1966 DTAP/TDAP/TD VACCINES (1 - Tdap) 1967 PNEUMOCOCCAL VACCINE 50+ (1 of 1 - PCV) 1998 ZOSTER VACCINE (1 of 2) 1998 Respiratory Syncytial Virus (RSV) Vaccine Pt: or over 60 yrs (1 - 1-dose 75+ series) 2023 COVID-19 VACCINE ( - 2023-2 5 season) 2024 DEPRESSION SCREENING 09/02/2024 INFLUENZA VACCINE (#1) 2025 HEPATITIS B VACCINE Aged Out No longe [...] patient's age to complete this topic Insurance AETNA AETNA AETNA Care Teams Assistant Brand Manager Relationship Specialty Start Date End Date Santiago Bueno MD PCP - General Internal Medicine 08/09/14
[2025-04-01 10:03] LABS: Hematocrit 44.4 % (37.0-47.0); Hemoglobin 14.1 g/dL (12.0-15.0); Immature Granulocyte Percent A 0.2 % (0-0.5); Lymphocytes Absolute Auto 1.82 K/mm3 (0.9-3.2); Mean Corpuscular HGB Conc 31.8 g/dl (32-36); Mean Corpuscular Hemoglobin 28.4 pg (26-34); Mean Corpuscular Volume 89.5 fl (80-100); Nucleated Red Blood Cells Absolute Auto 0.000 K/mm3 (0.0-0.012); Nucleated Red Blood Cells Perc 0.0 % (0.0-0.2); Platelet Count Result 220 k/mm3 (150-375); Red Blood Count 4.96 M/mm3 (4.2-5.4); White Blood Count 5.7 K/mm3 (4.5-10.0)
[2025-04-01 10:04] LABS: Add Urine Microscopic? NO; Appearance Urine Clear (Clear); Glucose Urine UA 3+ mg/dL (Negative); Leukocyte Esterase Ur Negative LEU/UL (Negative); Nitrate Urine Negative (Negative); Specific Grav Ur 1.024 (1.001-1.035)
[2025-04-01 10:26] LABS: Alanine Aminotransferase 29 U/L (6-35); Albumin Level 4.0 g/dL (3.5-5.1); Alkaline Phosphatase 98 U/L (38-126); Anion Gap 7 mmol/L (4-12); Aspartate Amino Transferase 43 U/L (14-36); Bilirubin,Total 0.6 mg/dL (0.2-1.3); Blood Urea Nitrogen 23 mg/dL (7-17); CRP < 0.5 mg/dL (<1.0); Calcium 9.0 mg/dL (8.4-10.2); Carbon Dioxide 26 mmol/L (22-30); Chloride 107 mmol/L (98-107); Estimated Glomerular Filt Rate > 60; Glucose 96 mg/dL (65-110); Potassium 4.4 mmol/L (3.4-5.0); Sodium 140 mmol/L (137-145); Total Protein 7.5 g/dL (6.3-8.2)
[2025-04-01 10:41] LABS: Free T4 Free Thyroxine 0.95 ng/dL (0.78-2.19)
[2025-04-01 10:59] LABS: Thyroid Stimulating Hormone 1.770 uIU/mL (0.465-4.680)
[2025-04-01 11:18] LABS: Vitamin B12 444.0 pg/mL (239-931)
== END 2025-04-01 08:55 | disposition home or self-care (01) ==
PROVIDERS: PCP Student in an Organized Health Care Education/Training Program; Visit Provider Nurse Practitioner
DX: M32.9 Systemic lupus erythematosus, unspecified (principal); E55.9 Vitamin D deficiency, unspecified
CPT/HCPCS: 36415; 80053; 81003; 82306; 82607; 84439; 84443; 85025; 85652; 86140; 86160; 86225

== ENCOUNTER 2025-05-14 08:06 | Outpatient (CLI) | payer MEDICARE, SELFPAY ==
--- OUTSIDE RECORDS SUMMARY | 2025-05-14 08:12 | XMS_ITS | Clinical Summary ---
Author Organization [facility] Address [address] [address] Care Team Providers Care Continuous Drier Operator Name Role Phone Gladis Song MD Unavailable No, Physician Primary Care Provider [phone] Allergies Active Allergy Reactions Criticality Noted Date Comments Latex Rash Medium Levofloxacin Headache,Nausea only Low Nitrofurantoin Headache Low Sulfa (Sulfonamide Antibiotics) Swelling Medium 07/04 Medications cholecalciferol (VITAMIN D3) 2,000 unit tablet take 1 by Oral route every day 0 0 12/01/19 15 Active folic acid (FOLVITE) 1 mg tablet Take 1 tablet (1 mg total) by mouth daily. Take one tab daily 90 tablet 05/14/20 18 Active calcium carbonate (OS-LEELA) 1,500 mg (600 mg of elemental calcium) tabletIndication s:Post-Menopausa l Osteoporosis Prevention Take 2,000 mg of elemental calcium by mouth every morning Active fluticasone propionate (FLOVENT HFA) 110 mcg/actuation inhaler Inhale 2 puffs 2 (two) times a day Rinse mouth with water after use. Do not swallow. 2 Inhaler 2 03/31/20 19 Active hydroCHLOROthiaz dona (HYDRODIURIL) 25 mg tablet TAKE 1 TABLET BY MOUTH EVERY DAY 90 tablet 3 06/01/20 19 Active albuterol HFA (PROVENTIL HFA,VENTOLIN HFA,PROAIR HFA) 90 mcg/actuation inhaler Inhale 90 puffs 03/31/20 19 Active calcium carbonate-vitami n D3 1,250mg (500mg elemental) - 5 mcg (200 units) per tablet Take by mouth daily Active pantoprazole DR (PROTONIX) 40 mg EC tablet Take 1 tablet (40 mg total) by mouth 2 (two) times a day 12/09/19 21 Active methotrexate 2.5 mg tablet TAKE 6 TABLETS BY MOUTH ONCE A WEEK 03/29/20 21 Active PARoxetine (PAXIL) 20 mg tablet TAKE 1/2 TABLET BY MOUTH EVERY DAY IN THE MORNING 15 tablet 1 07/28/20 21 Active montelukast (SINGULAIR) 10 mg tablet TAKE 1 TABLET BY MOUTH EVERY DAY AT NIGHT 90 tablet 3 08/17/20 21 Active ascorbic acid (VITAMIN C) 1,000 mg tablet Take 1 tablet (1,000 mg total) by mouth daily Active sucralfate (CARAFATE) 1 gram tablet 05/04/20 22 Active gabapentin (NEURONTIN) 100 mg capsule Take 2 capsules (200 mg total) by mouth 06/01/20 22 Active dicyclomine (BENTYL) 10 mg capsule 07/06/20 22 Active Breo Ellipta 100-25 mcg/dose diskus inhaler INHALE 1 PUFF INTO THE LUNGS DAILY. RINSE AND SPIT AFTER USE 03/14/20 23 Active potassium chloride ER (Klor-Con M20) 20 mEq CR tablet TAKE 2 TABLETS EVERY MORNING AND 2 TABLETS EVERY EVENING 360 tablet 3 09/18/19 24 Active Additional Information Patient not taking.Reported on 05/07/2025 triamcinolone (KENALOG) 0.1 % cream Apply topically 2 (two) times a day APPLY TO AFFECTED AREA 09/19/19 24 Active brimonidine (ALPHAGAN) 0.2 % ophthalmic solution INSTILL 1 DROP INTO BOTH EYES 3 TIMES A DAY Active apixaban (Eliquis) 5 mg tablet TAKE 1 TABLET BY MOUTH TWICE A DAY 180 tablet 3 06/17/20 24 Active bisoprolol (ZEBETA) 5 mg tablet Take 1 tablet (5 mg total) by mouth daily 90 tablet 2 07/14/20 24 025 Active nitroglycerin (NITROSTAT) 0.4 mg SL tablet May repeat dose every 5 minutes for up to 3 doses total. 25 tablet 3 07/14/20 24 Active atorvastatin (LIPITOR) 80 mg tablet Take 1 tablet (80 mg total) by mouth daily 30 tablet 11 12/02/19 25 Active furosemide (LASIX) 20 mg tablet Take 1 tablet (20 mg total) by mouth daily 90 tablet 3 12/12/19 25 Active empagliflozin (Jardiance) 10 mg tablet TAKE 1 TABLET BY MOUTH EVERY DAY 90 tablet 2 12/30/19 25 Active clobetasoL (TEMOVATE) 0.05 % ointment Apply topically 01/08/20 25 Active pregabalin (LYRICA) 75 mg capsuleIndicatio ns:neuropathic pain Take 1 capsule (75 mg total) by mouth 2 (two) times a day 60 capsule 5 05/01/20 24 025 Discontin ued(Thera py completed ) pregabalin (LYRICA) 50 mg capsule Take 1 capsule (50 mg total) by mouth 2 (two) times a day 06/09/20 24 025 Discontin ued(Thera py completed ) Active Problems Problem Noted Date Diagnosed Date Mild cognitive impairment 10/05/2022 Essential tremor 02/09/2022 Assessment & Plan (05/07/2025 1:52 PM CDT): Ms. Mirella Orantes is a 74 y.o. female, who presents for evaluation of tremor. She developed right hand tremor in 2006. Worsening factors include anxiety and caffeine, whereas alleviating factors include alcohol. She later developed gradual worsening of the tremor. Currently, she is not bothered by the tremor. She did not try any medications before. There is family history of tremor, including sister and father. On examination, there is predominant postural and kinetic tremor in the upper extremities without ataxia or parkinsonism. History and examination are compatible with essential tremor (ET). We discussed disease pathophysiology and treatment strategies for ET. The tremor is not bothersome and she does not require symptomatic treatment. She cannot take primidone due to the use of apixaban and cannot take propranolol due to asthma. We would have to explore gabapentin or topiramate if she needs symptomatic treatment. Plan: Continue to monitor the tremor. Potential medication side effects were discussed during the encounter. Forgetfulness 02/09/2022 Trigger finger of right thumb 03/03/2020 Overview (03/03/2020): Added automatically from request for surgery [id number] Tachycardia 09/03/2019 Dyspepsia 09/03/2019 Annual physical exam [...] this Assessment & Plan (07/14/2024 11:36 AM WAREHOUSE LOGISTICS COORDINATOR): Moderate coronary disease with recurrent exertional dyspnea and chest pain symptoms. We will recheck exercise stress echo Assessment & Plan (12/24/2022 10:08 AM CDT): CAD with non obstructed CAD on [facility] in 2018 now with stable angina. Relieved [...] PM CDT): She had minimal CAD on [facility] in 2018. She continues on atorvastatin and [...] stopped. Assessment & Plan (07/11/2018 5:29 PM WAREHOUSE LOGISTICS COORDINATOR): Seems biliary by history. Will check RUQ [...] BID Assessment & Plan (07/11/2018 5:29 PM WAREHOUSE LOGISTICS COORDINATOR): Although this is not well documented, she [...] 04/29/2017 Assessment & Plan (09/03/2019 11:50 AM WAREHOUSE LOGISTICS COORDINATOR): BMI Follow-up includes: nutrition counseling, exercise counseling [...] provided. Assessment & Plan (10/21/2017 9:29 AM WAREHOUSE LOGISTICS COORDINATOR): Body mass index is 32.32 kg/m . BMI Follow-up includes: nutrition counseling, exercise counseling and education provided. Assessment & Plan (09/23/2017 2:52 PM WAREHOUSE LOGISTICS COORDINATOR): Body mass index is 31.91 kg/m . BMI Follow-up includes: nutrition counseling, exercise counseling and education provided. Assessment & Plan (08/16/2017 11:22 AM WAREHOUSE LOGISTICS COORDINATOR): BMI Follow-up includes: nutrition counseling, exercise counseling [...] recommended Assessment & Plan (07/14/2024 11:36 AM WAREHOUSE LOGISTICS COORDINATOR): Known PFO. Already on anticoagulation due to possible history of atrial fibrillation. No clear documented history of AFib however there was enough of a clinical concern that this was started by her prior gi physician. She was tolerating this okay without any [...] Maintain adequate clear fluid intake. May use [id number] acetaminophen or ibuprofen. Medication instructions were provided [...] orders Assessment & Plan (09/23/2017 2:52 PM WAREHOUSE LOGISTICS COORDINATOR): Using her singulair and inhaler as prescribed. [...] Song. Assessment & Plan (10/22/2017 11:13 AM WAREHOUSE LOGISTICS COORDINATOR): Patient disease activity is moderate. Her LFTs are now normal so will try increasing MTX. Patient is to continue HCQ. She is to increase the MtX to 4 tablets/week x 1 week, then increase to 6 tablets/week thereafter. Will check routine labs at the next OV. She had an eye exam recently. Assessment & Plan (09/09/2017 9:55 AM WAREHOUSE LOGISTICS COORDINATOR): MTX started at the last Ov. She [...] MTX. Assessment & Plan (07/29/2017 12:51 PM WAREHOUSE LOGISTICS COORDINATOR): Patient disease activity is moderate. Patient is [...] GI. Assessment & Plan (07/11/2018 5:28 PM WAREHOUSE LOGISTICS COORDINATOR): Has Hx reflux but on treatment and her symptoms don't seem consistent with this. Continue current medication for now. Assessment & Plan (05/13/2018 10:12 AM CDT): Not certain this diagnosis is correct or whether it is responsible for any symptoms given her normal EGD and lack of response to PPI therapy. Seeing gi physician next week to consider alternative explanations for heartburn. Assessment & Plan (10/22/2017 11:14 AM WAREHOUSE LOGISTICS COORDINATOR): Recently started on protonix. Assessment & Plan (10/21/2017 9:28 AM WAREHOUSE LOGISTICS COORDINATOR): Change the omeprazole to pantoprazole 40 mg [...] GI Assessment & Plan (09/23/2017 2:51 PM WAREHOUSE LOGISTICS COORDINATOR): Increase omeprazole to 40 mg daily. sit [...] medication, Maintain adequate fluid intake. May use kmok-jfa-xlsfrjd acetaminophen or ibuprofen. Medication instructions were provided [...] 05/13/2018 Assessment & Plan (10/21/2017 9:29 AM WAREHOUSE LOGISTICS COORDINATOR): Resolved. Lungs are clear. Assessment & Plan (09/23/2017 2:52 PM WAREHOUSE LOGISTICS COORDINATOR): Order CXR today May need steroids, antibiotic if pneumonia. Assessment & Plan (08/16/2017 12:36 PM WAREHOUSE LOGISTICS COORDINATOR): Patient is still continuing to wheeze. Ventolin 2 puffs t.i.d.. Explained to patient that she should contact the office if she does not feel better. Hypokalemia 08/16/2017 05/13/2018 Assessment & Plan (08/16/2017 12:36 PM WAREHOUSE LOGISTICS COORDINATOR): Patient was given potassium at the urgent care. BMP today. 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 She is already working with a airplane inspector on this (but they reportedly don't know what's causing it either). We'll see if anything comes up in lab work. TIA (transient ischemic attack) 04/29/2017 05/13/2018 Assessment & Plan (04/29/2017 8:32 PM CDT): Workup completed in [facility] in [place], [place] CT negative except old infarct from [...] 09/2017. Assessment & Plan (10/22/2017 11:13 AM WAREHOUSE LOGISTICS COORDINATOR): Will continue to monitor the patient with routine labs. Assessment & Plan (09/09/2017 7:58 AM WAREHOUSE LOGISTICS COORDINATOR): Will continue to monitor the patient with routine labs. Assessment & Plan (07/29/2017 12:51 PM WAREHOUSE LOGISTICS COORDINATOR): Will continue to monitor the patient with [...] Encounters Date Type Department Care Team Description 05/07/2025 2:00 PM CDT Clinical Support [facility] Medicine Movement Disorders [facility] [place] Advanced Medicine [address] [place] [phone] Tremor 05/07/2025 1:00 PM CDT Office Visit [facility] Medicine Movement Disorders [facility] [place] Advanced Medicine [address] [place] [phone] Kenzie Gibson MD Essential tremor (Primary Dx) 04/02/2025 Telephone [facility] Medicine Scheduling [address] [place] [address] Dyana Zheng from Last 3 Months Immunizations Immunization Administration [...] mellit us; Asthma Father Asthma; /Asthma ; Tremor Father Tuberculosis Father Tuberculosis; Coronary artery disease Mother Sen nary artery disease; Heart attack Mother heart attack; Heart disease Mother Family history of cardiac disorder - (Added by TW Conv) Asthma Sister 1 Asthma; Tremor Sister 1 Diabetes Sister 2 Diabetes mellit us; Anesthesia problems Neg Hx Dementia Neg Hx Parkinsonism Neg Hx Relation Name Status Comments Brother [...] on file Legal Sex Female 12:11 AM WAREHOUSE LOGISTICS COORDINATOR Gender Identity Not on file Sexual Orientation Not on file Occupation Industry Job Start Date Job End Date Retired Not on file Not on file Not on file Obstetrics History Last Filed Vital Signs Vital Sign Reading Time Taken Comments Blood Pressure 130/79 05/07/2025 12:54 PM CDT Pulse 80 05/07/2025 12:54 PM CDT Temperature 36.8 C (98.2 F) 11/18/2024 2:22 PM CDT Respiratory Rate 18 03/28/2020 6:35 AM CDT Oxygen Saturation 95% 01/12/2025 12:14 PM CDT Inhaled Oxygen Concentration - - Weight 62.7 kg (138 lb 2 oz) 05/07/2025 12:54 PM CDT Height 154.9 cm (5' 1) 05/07/2025 12:54 PM CDT Body Mass Index 26.1 05/07/2025 12:54 PM CDT Plan of Treatment Health Maintenance Due Date Last Done Comments DTaP/Tdap/Td Vaccine (1 - Tdap) 1961 Hepatitis B Screening 1966 Well Visit 65+ 06/02/2020 06/02/2019, 05/03, 05/22/2017 Fall Risk Assessment 03/28/2021 03/28/2020, 09/03/2019, 06/30/2019, Additional history exists Osteoporosis Screening-Bone Density Scan 05/15/2023 05/15/2021, 06/09/2018, 11/30/2014 Covid-19 Vaccine (4 - 2024-2 6 season) 2025 08/07/2021, 11/18/2020, 10/21/2020 Influenza Vaccine (#1) 2025 , 05/30/2020, 06/02/2019, Additional history exists Depression Screening 05/07/2026 05/07/2025, 09/03/2019, 06/30/2019, Additional history exists Colon Cancer Screening-CT Colonography [...] Recently Relevant to Health Maintenance Results * Screening Mammogram Bilateral W Elías (03/31/2019 10:56 AM CDT) Anatomical Region Laterality Modality Breast Bilateral Mammography Narrative 03/31/2019 3:57 PM CDT Mammogram Technique: Bilateral Digital Breast Tomosynthesis, Bilateral C-view 2D Screening mammogram. Views obtained: bilateral craniocaudal and bilateral mediolateral oblique. Computer Aided Detection was performed. Mammogram Findings: The present examination has been compared to prior imaging studies performed at [facility] on 09/12/2015, 02/11/2017 and 02/20/2018. [...] compared to prior imaging studies performed at [facility] on 09/12/2015, 02/11/2017 and 02/20/2018. [...] Ab Non-Reacti ve Non-Reacti ve [facility] Comment:Testing performed by : [facility], [address] [place] [address]., [id number] Blood specimen (specimen) 05/22/2017 1:57 PM CDT 05/22/2017 8:04 PM CDT Santiago Bueno MD LAB MICROBIOLOGY - GENERAL ORD ERABLES Final Result [facility] [address] [facility] Department [place] [address] * COLONOSCOPY (02/06/2011) Pathologist [facility] Colonoscopy Normal Historical Provider HEALTH MAINTENANCE Final Result from Last 3 Months or Most Recently Relevant to Health Maintenance Insurance AETNA MEDICARE [facility] MEDICARE [facility] MEDICARE [facility] MEDICARE [facility] MEDICARE Advance Directives For more information, please contact: [phone] * Full Code (Latest Code Status on File) Date Activated Date Inactivated Comments 05/26/2018 10:21 AM 05/26/2018 2:17 PM Care Teams Continuous Drier Operator Relationship Specialty Start Date End Date No, Physician PCP - General 11/18/24 [place] [address] [facility] [address] [place] [address] Rheumatology 07/15/17
--- OUTSIDE RECORDS SUMMARY | 2025-05-14 08:12 | XMS_ITS | Patient Health Record ---
Author Organization [facility] Address [address] [place] [address] Care Team Providers Care Divine Healer Name Role Phone SIMRAN TYSON Unavailable Allergies Allergen (clinical drug ingredient) Drug/Non Drug Allergy documented on EMR Reaction Allergy Type Onset Date Status doxycycline Doxycycline Hyclate sun burn Drug Allergy Active [...] Problem Status W/U Status Risk Notes Problem Exacerbation of intermittent asthma (458295237) Mild intermittent asthma with (acute) exacerbation (J45.21) Active confirmed Plan Of Treatment Pending Test Test Name Order Date INJ Roceph (1 gram) 04/07/2019 PRO Nebulizer Treatment 04/07/2019 Inj Dexamethasone 04/07/2019 Insurance Providers Payer Name Payer Address Payer Phone Subscriber Number Group Number Insured Name Patient Relationship to Insured Coverage Start Date Coverage End Date [employer] [address] [address] [place] [address] [id number] MIRELLA HSU Self - patient is the [...]
--- OUTSIDE RECORDS SUMMARY | 2025-05-14 08:12 | XMS_ITS | Encounter Summary ---
Author Organization [facility] Address [address] [place] [address] Phone Care Team Providers Care Refrigerating Technician Name Role Phone Santiago Bueno MD Primary Care Provider [phone] Santiago Bueno MD Primary Care Provider [phone] Santiago Bueno MD Primary Care Provider [phone] Gladis Song MD Unavailable Silvia Granger DPT Unavailable [phone] No, Physician Primary Care Provider Santiago Bueno MD Primary Care Provider [phone] Gabriel Persaud MD Primary Care Provider Santiago Bueno MD Primary Care Provider [phone] Thi Lugo MD Primary Care Provider [phone] Santiago Bueno MD Primary Care Provider [phone] Thi Lugo MD Primary Care Provider [phone] Emily Jordan MD Primary Care Provider [phone] No, Physician Primary Care Provider [phone] Encounter Details Date Type Department Care Team [...] on file 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 Gender Identity Not on file Sexual [...] on filedocumented in this encounter Care Teams Refrigerating Technician Relationship Specialty Start Date End Date Santiago Bueno MD PCP - General 11/30/16 06/09/20 Santiago Bueno MD PCP - General 10/15/16 11/29/16 Santiago Bueno MD PCP - General 09/03/06 10/14/16 No, Physician PCP - General 06/10/20 10/30/20 Santiago Bueno MD PCP - General Internal Medicine 10/31/20 11/28/20 Gabriel Persaud MD PCP - General Family Medicine 11/29/20 12/01/20 Santiago Bueno MD PCP - General 12/02/20 10/12/21 Thi Lugo MD PCP - General Family Medicine 10/13/21 10/17/21 Santiago Bueno MD PCP - General 10/18/21 02/18/22 Thi Lugo MD PCP - General Family Medicine 02/19/22 07/19/24 Emily Jordan MD PCP - General Family Medicine 07/20/24 11/17/24 No, Physician PCP - General 11/18/24 [place] [address] [facility] [address] [place] [address] Rheumatology 07/15/17 Silvia Granger DPT [address] [facility] [address] [place] [address] Physical Therapist Physical Therapy 04/14/20 06/09/20 documented as of this encounter
--- OUTSIDE RECORDS SUMMARY | 2025-05-14 08:12 | XMS_ITS | Clinical Summary ---
Author Organization [facility] Address [address] [facility] [place] [address] Care Team Providers Care Health Inspector Name Role Phone Santiago Bueno MD Primary Care Provider [phone] Source Comments [facility],non-christian hospital Affiliates and Associated Physician Practices is amultiple site organization consisting of ambulatory clinics and hospital sitesin [place], [place], [place] and [place]. This disclosure is being madepursuant to the Care Everywhere program and may not contain all information available regarding this patient. 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
--- OUTSIDE RECORDS SUMMARY | 2025-05-14 08:12 | XMS_ITS | Encounter Summary ---
Author Organization [facility] Address [address] [place] [address] Phone Care Team Providers Care Apartment Property Manager Name Role Phone Santiago Bueno MD Primary Care Provider Gladis Song MD Unavailable Silvia Granger DPT Unavailable [phone] No, Physician Primary Care Provider [phone] Santiago Bueno MD Primary Care Provider Gabriel Persaud MD Primary Care Provider Santiago Bueno MD Primary Care Provider [phone] Thi Lugo MD Primary Care Provider [phone] Santiago Bueno MD Primary Care Provider [phone] Thi Lugo MD Primary Care Provider [phone] Emily Jordan MD Primary Care Provider [phone] No, Physician Primary Care Provider [phone] Encounter Details Date Type Department Care Team (Late st Contact Info) Description 05/09/2018 Telephone 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 Gender Identity Not on file Sexual Orientation Not on file Occupation Industry Job Start Date Job End Date Retired Not on file Not on file Not on file documented as of this encounter Plan of Treatment Not on file documented as of this encounter Visit Diagnoses Not on filedocumented in this encounter Care Teams Apartment Property Manager Relationship Specialty Start Date End Date Santiago Bueno MD PCP - General 11/30/16 06/09/20 No, Physician [...] PCP - General 11/18/24 [place] [id number] [address] Rheumatology 07/15/17 Sil[place] D[place] [address] [address] Physical Therapist Physical Therapy 04/14/20 06/09/20 documented as of this encounter
[2025-05-14 09:00] LABS: Hematocrit 44.9 % (37.0-47.0); Hemoglobin 14.2 g/dL (12.0-15.0); Immature Granulocyte Percent A 0.3 % (0-0.5); Lymphocytes Absolute Auto 1.90 K/mm3 (0.9-3.2); Mean Corpuscular HGB Conc 31.6 g/dl (32-36); Mean Corpuscular Hemoglobin 28.5 pg (26-34); Mean Corpuscular Volume 90.0 fl (80-100); Nucleated Red Blood Cells Absolute Auto 0.000 K/mm3 (0.0-0.012); Nucleated Red Blood Cells Perc 0.0 % (0.0-0.2); Platelet Count Result 341 k/mm3 (150-375); Red Blood Count 4.99 M/mm3 (4.2-5.4); White Blood Count 11.0 K/mm3 (4.5-10.0)
[2025-05-14 09:15] LABS: Alanine Aminotransferase 22 U/L (6-35); Albumin Level 3.6 g/dL (3.5-5.1); Alkaline Phosphatase 83 U/L (38-126); Anion Gap 7 mmol/L (4-12); Aspartate Amino Transferase 28 U/L (14-36); Bilirubin,Total 1.1 mg/dL (0.2-1.3); Blood Urea Nitrogen 23 mg/dL (7-17); CRP 4.7 mg/dL (<1.0); Calcium 8.7 mg/dL (8.4-10.2); Carbon Dioxide 29 mmol/L (22-30); Chloride 101 mmol/L (98-107); Estimated Glomerular Filt Rate > 60; Glucose 81 mg/dL (65-110); Potassium 3.9 mmol/L (3.4-5.0); Sodium 137 mmol/L (137-145); Total Protein 7.2 g/dL (6.3-8.2)
== END 2025-05-14 08:07 | disposition home or self-care (01) ==
PROVIDERS: PCP Student in an Organized Health Care Education/Training Program; Visit Provider Nurse Practitioner
DX: M32.9 Systemic lupus erythematosus, unspecified (principal)
CPT/HCPCS: 36415; 80053; 85025; 85652; 86140